=== PATIENT | male | born 1965 | race Caucasian/White ===

== ENCOUNTER 2016-10-12 18:32 | Emergency (ER) | payer OTHER ==
[~2016-10-12] VITALS: Ht 165.1 cm; Wt 66.3 kg
[2016-10-12 18:41] VITALS: TEMP 36.9; Ht 165.1 cm; Wt 66.3 kg
[2016-10-12] MEDS ORDERED: SODIUM CHLORIDE 0.9% 1000ML 1,000 ML IV STA (19:12)
[2016-10-12] MEDS ORDERED: KETOROLAC TROMETHAMINE 30 MG/ML VIAL IV STA (19:12)
[2016-10-12] MEDS ORDERED: PROMETHAZINE HCL INJ 25 MG in SODIUM CHLORIDE 0.9% 50ML 50 ML IV STA (19:12)
--- NOTE | 2016-10-12 19:49 | EMERGENCY ROOM VISIT NOTE ---
History Report prepared by López: Suad Acevedo Under the Supervision of: Dr. Zachary Huynh M.D. First contact with patient: 19:05 Chief Complaint: GI ASSESSMENT Stated Complaint: ABD Nursing Triage Summary: patient brought in by ems patient reports abdominal,N/V/D since last night at 2000 patient reports last ETOH drink last night,visible tremors History of Present Illness The patient is a 50 year old male who presents to the Emergency Room for a GI assessment. He has been experiencing diffuse abdominal pain since last night. He states that this pain is constant and rates it as a 3/10 in severity. He also notes nausea, vomiting, and diarrhea. The patient is an alcoholic and states that his last alcoholic drink was last night. He denies any history of abdominal surgery. He states that he has never experienced pain like this before. Source of History: patient Onset: last night Position: abdomen (diffuse) Symptom Intensity: 3/10 Timing: constant Associated Symptoms: + diarrhea, + nausea, + vomiting Review of Systems See HPI for pertinent positives & negatives. A total of 10 systems reviewed and were otherwise negative. Past Medical & Surgical Medical Problems: (1) Alcohol dependence (2) Alcoholic cirrhosis of liver without ascites (3) Asthma, mild persistent (4) Chest pain (5) Chronic anxiety (6) Chronic pancreatitis (7) COPD, mild (8) Esophageal varices (9) Hepatic encephalopathy (10) Hypotension (11) Hypothyroidism (12) Insomnia (13) Paroxysmal atrial fibrillation (14) Portal vein thrombosis (15) Pulmonary HTN (16) Rapid atrial fibrillation (17) Thrombocytopenia (18) Tobacco abuse Surgical Problems: (1) H/O colonoscopy (2) History of cholecystectomy (3) History of esophagogastroduodenoscopy (EGD) Family History Blood clots Diabetes mellitus MOTHER FH: CAD (coronary artery disease) FATHER BROTHER FH: leukemia AUNT Hypertension Social History Smoking Status: Current Every Day Smoker Alcohol Use: heavy Drug Use: none Marital Status: single Housing Status: lives with family Occupation Status: unemployed Current/Historical Medications Scheduled Diltiazem Hcl Ext Rel (Tiazac), 120 MG PO DAILY Ondasetron Odt (Zofran Odt), 4 MG SL Q6H Trazodone Hcl (Trazodone), 150 MG PO HS Scheduled PRN Albuterol Hfa (Ventolin Hfa), 2 PUFF INH Q4 PRN for SOB/Wheezing Allergies Coded Allergies: Fentanyl (Verified Allergy, Intermediate, RASH ALL OVER BODY, 09/27/16) ALL OVER BODY Physical Exam Vital Signs Date Time Temp Pulse Resp B/P Pulse Ox O2 Delivery O2 Flow Rate FiO2 10/12/16 22:44 82 18 146/93 97 10/12/16 21:57 80 18 167/79 97 Room Air 10/12/16 20:33 87 20 158/96 96 Room Air 10/12/16 18:48 90 10/12/16 18:41 36.9 80 18 144/87 96 Room Air Physical Exam GENERAL: Patient is a healthy-appearing well-nourished 50 year old male. HEAD: Normocephalic atraumatic EYES: Ocular movements intact pupils equal and react to light OROPHARYNX mucous membranes are moist no exudates present no erythema or edema present NECK: Supple no nuchal rigidity CHEST: Good equal expansion LUNGS: Clear and equal to auscultation CARDIAC: Normal S1 and S2 ABDOMEN: Soft nontender no guarding BACK: No CVA tenderness EXTREMITIES: No pain upon palpation normal muscle strength in all groups no clubbing cyanosis or edema NEURO: Patient is following commands is answering questions appropriately. Alert and oriented x3 Cranial Nerves 2-12 grossly intact Medical Decision & Procedures ER Provider Diagnostic Interpretation: Radiology results as stated below per my review and radiologist interpretation: ABDOMEN 2VIEW W/PA CHEST RTN CLINICAL HISTORY: Nausea, vomiting, diarrhea. COMPARISON STUDY: 09/23/2016 FINDINGS: The cardiac and mediastinal contours remain stable. The chest has an emphysematous configuration. There is prominence of central pulmonary arteries. There is no free air. There are surgical clips within the right upper quadrant consistent with a prior cholecystectomy. There are no abnormally dilated loops of large or small bowel. There are no transition zones indicate bowel obstruction. IMPRESSION: No evidence of bowel obstruction. No evidence of free air. Electronically signed by: Charlie Kumar M.D. 10/12/2016 9:27 PM Dictated Date/Time: 10/12/2016 9:26 PM Laboratory Results 10/12/16 19:40 Red Blood Count 4.49, Mean Corpuscular Volume 94.4, Mean Corpuscular Hemoglobin 34.3, Mean Corpuscular Hemoglobin Concent 36.3, Mean Platelet Volume 12.8, Neutrophils (%) (Auto) 53.7, Lymphocytes (%) (Auto) 30.3, Monocytes (%) (Auto) 13.0, Eosinophils (%) (Auto) 2.1, Basophils (%) (Auto) 0.7, Neutrophils # (Auto ) 3.15, Lymphocytes # (Auto) 1.77, Monocytes # (Auto) 0.76, Eosinophils # (Auto ) 0.12, Basophils # (Auto) 0.04 10/12/16 19:40 Test 10/12/16 19:35 10/12/16 19:40 Urine Color CHARMAINE Urine Appearance CLEAR (CLEAR) Urine pH 8.5 (4.5-7.5) Urine Specific [place] 1.029 (1.000-1.030) Urine Protein NEG (NEG) Urine Glucose (UA) NEG (NEG) Urine Ketones NEG (NEG) Urine Occult Blood NEG (NEG) Urine Nitrite NEG (NEG) Urine Bilirubin NEG (NEG) Urine Urobilinogen NEG (NEG) Urine Leukocyte Esterase NEG (NEG) Urine WBC (Auto) 5-10 /hpf (0-5) Urine RBC (Auto) 0-4 /hpf (0-4) Urine Hyaline Casts (Auto) 0 /lpf (0-5) Urine Epithelial Cells (Auto) 10-20 /lpf (0-5) Urine Bacteria (Auto) NEG (NEG) Urine Yeast (Auto) (NONE PRSENT) White Blood Count 5.85 K/uL (4.8-10.8) Red Blood Count 4.49 M/uL (4.7-6.1) Hemoglobin 15.4 g/dL (14.0-18.0) Hematocrit 42.4 % (42-52) Mean Corpuscular Volume 94.4 fL (80-100) Mean Corpuscular Hemoglobin 34.3 pg (25-34) Mean Corpuscular Hemoglobin Concent 36.3 g/dl (32-36) Platelet Count 82 K/uL (130-400) Mean Platelet Volume 12.8 fL (7.4-10.4) Neutrophils (%) (Auto) 53.7 % Lymphocytes (%) (Auto) 30.3 % Monocytes (%) (Auto) 13.0 % Eosinophils (%) (Auto) 2.1 % Basophils (%) (Auto) 0.7 % Neutrophils # (Auto) 3.15 K/uL (1.4-6.5) Lymphocytes # (Auto) 1.77 K/uL (1.2-3.4) Monocytes # (Auto) 0.76 K/uL (0.11-0.59) Eosinophils # (Auto) 0.12 K/uL (0-0.5) Basophils # (Auto) 0.04 K/uL (0-0.2) RDW Standard Deviation 49.6 fL (36.4-46.3) RDW Coefficient of Variation 14.3 % (11.5-14.5) Immature Granulocyte % (Auto) 0.2 % Immature Granulocyte # (Auto) 0.01 K/uL (0.00-0.02) Platelet Estimate DECREASED Red Blood Cell Morphology Unremarkable Anion Gap 10.0 mmol/L (3-11) Est Creatinine Clear Calc Drug Dose 90.5 ml/min Estimated GFR () 117.5 Estimated GFR (Non- 101.4 BUN/Creatinine Ratio 9.0 (10-20) Calcium Level 8.4 mg/dl (8.5-10.1) Total Bilirubin 3.4 mg/dl (0.2-1) Direct Bilirubin mg/dl (0-0.2) Aspartate Amino Transf (AST/SGOT) 83 U/L (15-37) Alanine Aminotransferase (ALT/SGPT) 43 U/L (12-78) Alkaline Phosphatase 105 U/L (45-117) Total Protein 7.0 gm/dl (6.4-8.2) Albumin 3.0 gm/dl (3.4-5.0) Lipase 147 U/L (73-393) Chemistry Specimen Hemolysis Labs reviewed by ED physician. Medications Administered Medications (Trade) Dose Ordered Sig/Justin Route Start Time Stop Time Status Last Admin Dose Admin Ketorolac Tromethamine 30 mg 30 mg NOW STAT IV 10/12/16 19:12 10/12/16 19:13 DC 10/12/16 19:54 30 MG Sodium Chloride 1,000 ml @ 999 mls/hr Q1H1M STAT IV 10/12/16 19:12 10/12/16 20:12 DC 10/12/16 19:12 999 MLS/HR Promethazine HCl/ Sodium Chloride (Phenergan Inj/ Nss 50ml) 51 ml @ 204 mls/hr NOW STAT IV 10/12/16 19:12 10/12/16 19:26 DC 10/12/16 19:54 204 MLS/HR Ondansetron HCl (ZOFRAN ODT 4MG Home Pack) 1 [facility] UD ONCE PO 10/12/16 22:30 10/12/16 22:31 DC 10/12/16 22:[address] [facility] ED Course 1904: Past medical records reviewed. The patient was evaluated in room A10. A complete history and physical examination was performed. 1911: Promethazine HCl 25 mg/Sodium Chloride 51 ml @ 204 mls/hr IV, NSS 1000 ml @ 999 mls/hr IV, Toradol 30 mg IV 2154: I reassessed the patient at this time. He is feeling better and resting comfortably. I discussed the results and treatment plan with the patient. I answered all pertaining questions that he had. He expressed understanding and verbalized agreement. The patient will be discharged home. 2229: Zofran 4 mg PO 1 [facility] Medical Decision Differential diagnosis: Etiologies such as appendicitis, diverticulitis, PUD, biliary pathology, UTI, pancreatitis, obstruction, mesenteric ischemia, aortic pathology, infections, inflammatory bowel disease, renal colic, as well as others were entertained. This with U1-year-old male who presents emergency department complaining of nausea vomiting and diarrhea. The patient was unable to provide a stool sample for the entire 2 hours he was in the emergency department. Serial abdominal examinations were performed on the patient in the emergency department and at no time did he exhibit abdominal tenderness. He has a normal CBC normal renal profile normal liver profile normal lipase. The patient is also on the no narcotics treatment list. For this reason an IV was established, the patient given normal saline bolus, Phenergan. Repeat examination revealed improvement the patient's symptoms. Impression Primary Impression: Gastroenteritis Scribe Attestation The scribe's documentation has been prepared under my direction and personally reviewed by me in its entirety. I confirm that the note above accurately reflects all work, treatment, procedures, and medical decision making performed by me. Departure Information Dispostion Home / Self-Care Prescriptions Ondasetron Odt (ZOFRAN ODT) 4 Mg Tab 4 MG SL Q6H for Nausea, #6 TAB Prov: Zachary Huynh MD 10/12/16 Referrals Cr, P Sundar, M.D. (MEDICAL) (PCP) Forms HOME CARE DOCUMENTATION FORM, IMPORTANT VISIT INFORMATION Patient Instructions A Signature Page, ED Diet Vomiting Diarrhea, ED Gastroenteritis Vs Food Poison, My [facility] Additional Instructions You have been examined and treated today on an emergency basis only. This is not a substitute for, or an effort to provide, complete comprehensive medical care. It is impossible to recognize and treat all injuries or illnesses in a single emergency department visit. It is therefore important that you follow up closely with Dr Cr. Call as soon as possible for an appointment. Thank you for your time and consideration. I look forward to speaking with you again soon. Please don't hesitate to call us if you have any questions.
[2016-10-12] MEDS ORDERED: DILT120C68 PO (19:50)
[2016-10-12] MEDS ORDERED: TRAZ50TA35 PO (19:50)
[2016-10-12 20:22] LABS: ALKALINE PHOSPHATASE 105 U/L (45-117); ALT/SGPT 43 U/L (12-78); AST/SGOT 83 U/L (15-37); BLOOD UREA NITROGEN 8 mg/dl (7-18); CALCIUM 8.4 mg/dl (8.5-10.1); CARBON DIOXIDE 25 mmol/L (21-32); CHLORIDE 110 mmol/L (98-107); CREATININE 0.84 mg/dl (0.60-1.40); GLUCOSE 90 mg/dl (70-99); POTASSIUM 3.8 mmol/L (3.5-5.1); SODIUM 145 mmol/L (136-145)
[2016-10-12 20:31] LABS: URINE APPEARANCE CLEAR (CLEAR); URINE PH 8.5 (4.5-7.5); URINE SPECIFIC GRAVITY 1.029 (1.000-1.030); UROBILINOGEN NEG (NEG)
[2016-10-12 20:36] LABS: HEMATOCRIT 42.4 % (42-52); MEAN CELL VOLUME 94.4 fL (80-100); MEAN CORPUSCULAR HEMOGLOBIN 34.3 pg (25-34); MEAN CORPUSCULAR HGB CONC 36.3 g/dl (32-36); MEAN PLATELET VOLUME 12.8 fL (7.4-10.4); PLATELET COUNT 82 K/uL (130-400); RED BLOOD COUNT 4.49 M/uL (4.7-6.1); WHITE BLOOD COUNT 5.85 K/uL (4.8-10.8)
[2016-10-12 20:37] LABS: BASO % 0.7 %; BASO ABS # 0.04 K/uL (0-0.2); COMPLETE YES; EOS % 2.1 %; IG% 0.2 %; LYMPH % 30.3 %; LYMPH ABS # 1.77 K/uL (1.2-3.4); NEUT % 53.7 %; PLT ESTIMATE DECREASED
[2016-10-12 20:43] LABS: URINE COLOR AMBER
[2016-10-12 20:45] LABS: MANUAL MICROSCOPIC REQUIRED? NO; REVIEW REQ? YES; SULFASALICYLIC ACID NEG (NEG); URINE BILIRUBIN NEG (NEG)
[2016-10-12 20:46] LABS: URINE NITRITE NEG (NEG)
--- NOTE | 2016-10-12 21:29 | DIAGNOSTIC IMAGING REPORT ---
ABDOMEN 2VIEW W/PA CHEST RTN CLINICAL HISTORY: Nausea, vomiting, diarrhea. COMPARISON STUDY: 09/23/2016 FINDINGS: The cardiac and mediastinal contours remain stable. The chest has an emphysematous configuration. There is prominence of central pulmonary arteries. There is no free air. There are surgical clips within the right upper quadrant consistent with a prior cholecystectomy. There are no abnormally dilated loops of large or small bowel. There are no transition zones indicate bowel obstruction. IMPRESSION: No evidence of bowel obstruction. No evidence of free air. Electronically signed by: Charlie Kumar M.D. 10/12/2016 9:27 PM Dictated Date/Time: 10/12/2016 9:26 PM
[2016-10-12] MEDS ORDERED: ONDANSETRON HOME PACK 4MG OD TAB PO ONE (22:30)
[2016-10-12] MEDS ORDERED: ONDA4TAB10 SL (22:34)
[2016-10-12 22:44] VITALS: BP 146/93; PULSE 82; O2SAT 97
[2017-01-11] MEDS ORDERED: THM100 PO (12:57)
[2017-01-11] MEDS ORDERED: PRT40 PO (12:57)
[2017-01-11] MEDS ORDERED: MULT-589 PO (12:57)
[2017-01-11] MEDS ORDERED: FLV1 PO (12:57)
[2017-01-11] MEDS ORDERED: MGNO400 PO (12:57)
[2017-02-04] MEDS ORDERED: BND25 PO (21:04)
[2017-02-06] MEDS ORDERED: NRN600 PO (12:24)
[2017-02-06] MEDS ORDERED: THM100 PO (12:24)
[2017-02-06] MEDS ORDERED: MULTTAB58 PO (12:24)
[2017-02-06] MEDS ORDERED: FLV1 PO (12:24)
[2017-07-10] MEDS ORDERED: SALI0.6510 (16:02)
[2017-07-10] MEDS ORDERED: BCTRO (16:02)
[2017-07-13] MEDS ORDERED: TRAZ1TAB52 PO (20:24)
== END 2016-10-12 22:45 | disposition home or self-care (01) ==
LOC: EDBD 18:32 → C.EDA 18:33
DX: K52.9 Noninfective gastroenteritis and colitis, unspecified (principal); I48.0 Paroxysmal atrial fibrillation; E03.9 Hypothyroidism, unspecified; J44.9 Chronic obstructive pulmonary disease, unspecified; J45.909 Unspecified asthma, uncomplicated; K72.90 Hepatic failure, unspecified without coma; K70.30 Alcoholic cirrhosis of liver without ascites; K86.1 Other chronic pancreatitis; F41.9 Anxiety disorder, unspecified; F17.200 Nicotine dependence, unspecified, uncomplicated; Z90.49 Acquired absence of other specified parts of digestive tract; Z98.890 Other specified postprocedural states; Z88.8 Allergy status to other drugs, medicaments and biological substances; Z83.3 Family history of diabetes mellitus; Z82.49 Family history of ischemic heart disease and other diseases of the circulatory system

== ENCOUNTER 2016-10-24 20:44 | Emergency (ER) | payer OTHER ==
[~2016-10-24] VITALS: Ht 165.1 cm; Wt 64.5 kg
[~2016-10-24 20:44] MED LIST: DILT120C68 PO; ONDA4TAB10 SL; TRAZ50TA35 PO
[2016-10-24 20:51] VITALS: TEMP 37; Ht 165.1 cm; Wt 64.5 kg
[2016-10-24 21:16] VITALS: O2SAT 96
[2016-10-24] MEDS ORDERED: SODIUM CHLORIDE 0.9% 1000ML 1,000 ML IV STA (21:54)
--- NOTE | 2016-10-24 22:01 | EMERGENCY ROOM VISIT NOTE ---
History Report prepared by López: Sundar Payne Under the Supervision of: Dr. Mihai Muhammad M.D. First contact with patient: 21:48 Chief Complaint: OVERDOSE (ACCIDENTAL) Stated Complaint: ACCIDENTALLY TOOK BLOOD PRESSUE MEDS Nursing Triage Summary: Patient reports that he took 2 unknown BP medications about 1 hour ago. Denies suicidal ideations, states that he mistook them for sleeping pills. Patient reports associated CP that radiates across bilateral anterior chest wall. Also reports associated dizziness and blurred vision in both eyes. History of Present Illness The patient is a 50 year old male who presents to the Emergency Room with complaints of an episode of accidental overdose occurring this evening. He notes he took 1 extra of his blood pressure medication thinking that it was his sleeping pills. He notes he is supposed to take his blood pressure medication in the morning. He admits to drinking alcohol tonight. He currently feels dizzy and has chest pain and abdominal pain. Source of History: patient Onset: this evening Position: other (global) Quality: other (accidental overdose) Timing: other (episode) Associated Symptoms: + abdominal pain, + chest pain Note: The patient notes feeling dizzy. Review of Systems See HPI for pertinent positives & negatives. A total of 10 systems reviewed and were otherwise negative. Past Medical & Surgical Medical Problems: (1) Alcohol dependence (2) Alcoholic cirrhosis of liver without ascites (3) Asthma, mild persistent (4) Chest pain (5) Chronic anxiety (6) Chronic pancreatitis (7) COPD, mild (8) Esophageal varices (9) Hepatic encephalopathy (10) Hypotension (11) Hypothyroidism (12) Insomnia (13) Paroxysmal atrial fibrillation (14) Portal vein thrombosis (15) Pulmonary HTN (16) Rapid atrial fibrillation (17) Thrombocytopenia (18) Tobacco abuse Surgical Problems: (1) H/O colonoscopy (2) History of cholecystectomy (3) History of esophagogastroduodenoscopy (EGD) Family History Blood clots Diabetes mellitus MOTHER FH: CAD (coronary artery disease) FATHER BROTHER FH: leukemia AUNT Hypertension Social History Smoking Status: Current Every Day Smoker Alcohol Use: heavy Drug Use: none Marital Status: single Housing Status: lives with family Occupation Status: unemployed Current/Historical Medications Scheduled Diltiazem Hcl Ext Rel (Tiazac), 120 MG PO DAILY Ondasetron Odt (Zofran Odt), 4 MG SL Q6H Trazodone Hcl (Trazodone), 150 MG PO HS Scheduled PRN Albuterol Hfa (Ventolin Hfa), 2 PUFF INH Q4 PRN for SOB/Wheezing Allergies Coded Allergies: Fentanyl (Verified Allergy, Intermediate, RASH ALL OVER BODY, 10/24/16) ALL OVER BODY Physical Exam Vital Signs Date Time Temp Pulse Resp B/P Pulse Ox O2 Delivery O2 Flow Rate FiO2 10/24/16 23:36 87 18 97/67 96 10/24/16 23:00 86 18 103/69 96 Room Air 10/24/16 22:13 84 18 89/55 95 Room Air 10/24/16 21:16 96 Room Air 10/24/16 21:12 86 10/24/16 20:51 37.0 88 20 102/71 96 Room Air Physical Exam GENERAL: Patient is moderately intoxicated, smells strongly of alcohol, and has slurred speech. HEENT: No acute trauma, normocephalic atraumatic, mucous membranes moist, no nasal congestion, no scleral icterus. NECK: No stridor, no adenopathy, no meningismus, trachea is midline. LUNGS: No dyspnea. Clear to auscultation and equal bilaterally. No wheeze, no rhonchi. HEART: Regular rate and rhythm. No murmurs, rubs, gallops appreciated. ABDOMEN: Soft, nontender, bowel sounds positive, no masses appreciated, no peritonitis. BACK: No midline tenderness, no CVA tenderness EXTREMITIES: Normal motion all extremities, no cyanosis, no edema. NEUROLOGIC: Alert and oriented, no acute motor or sensory deficits, no focal weakness, cranial nerves grossly intact. SKIN: No rash, no jaundice, no diaphoresis. Medical Decision & Procedures Laboratory Results 10/24/16 21:38 Red Blood Count 4.46, Mean Corpuscular Volume 97.3, Mean Corpuscular Hemoglobin 35.0, Mean Corpuscular Hemoglobin Concent 35.9, Mean Platelet Volume 12.1 10/24/16 21:38 Test 10/24/16 21:38 10/24/16 22:10 White Blood Count 7.64 K/uL (4.8-10.8) Red Blood Count 4.46 M/uL (4.7-6.1) Hemoglobin 15.6 g/dL (14.0-18.0) Hematocrit 43.4 % (42-52) Mean Corpuscular Volume 97.3 fL (80-100) Mean Corpuscular Hemoglobin 35.0 pg (25-34) Mean Corpuscular Hemoglobin Concent 35.9 g/dl (32-36) Platelet Count 125 K/uL (130-400) Mean Platelet Volume 12.1 fL (7.4-10.4) RDW Standard Deviation 50.7 fL (36.4-46.3) RDW Coefficient of Variation 14.2 % (11.5-14.5) Neutrophils % (Manual) 53.9 % Lymphocytes % (Manual) 20.4 % Variant Lymphocytes % (manual) 15.0 % Monocytes % (Manual) 1.8 % Eosinophils % (Manual) 6.2 % Basophils % (Manual) 2.7 % (0-2) Neutrophils # (Manual) 4.12 K/uL (1.4-6.5) Total Absolute Neutrophils 4.12 K/uL (1.4-6.5) Lymphocytes # (Manual) 1.56 K/uL (1.2-3.4) Absolute Variant Lymphocytes 1.15 K/uL Total Absolute Lymphocytes 2.70 K/uL (1.2-3.4) Monocytes # (Manual) 0.14 K/uL (0.11-0.59) Eosinophils # (Manual) 0.47 K/uL (0-0.5) Basophils # (Manual) 0.21 K/uL (0-0.2) Platelet Estimate DECREASED Red Blood Cell Morphology Unremarkable Anion Gap 11.0 mmol/L (3-11) Est Creatinine Clear Calc Drug Dose 80.9 ml/min Estimated GFR () 108.4 Estimated GFR (Non- 93.5 BUN/Creatinine Ratio 6.2 (10-20) Calcium Level 8.4 mg/dl (8.5-10.1) Total Bilirubin 1.2 mg/dl (0.2-1) Aspartate Amino Transf (AST/SGOT) 33 U/L (15-37) Alanine Aminotransferase (ALT/SGPT) 22 U/L (12-78) Alkaline Phosphatase 88 U/L (45-117) Troponin I < 0.015 ng/ml (0-0.045) Total Protein 6.4 gm/dl (6.4-8.2) Albumin 2.7 gm/dl (3.4-5.0) Globulin 3.7 gm/dl (2.5-4.0) Albumin/Globulin Ratio 0.7 (0.9-2) Thyroid Stimulating Hormone (TSH) 5.720 uIu/ml (0.300-4.500) Salicylates Level < 1.7 mg/dl (2.8-20) Acetaminophen Level < 2 ug/ml (10-30) Ethyl Alcohol mg/dL 207.0 mg/dl (0-3) Urine Color YELLOW Urine Appearance CLEAR (CLEAR) Urine pH 6.5 (4.5-7.5) Urine Specific [place] 1.000 (1.000-1.030) Urine Protein NEG (NEG) Urine Glucose (UA) NEG (NEG) Urine Ketones NEG (NEG) Urine Occult Blood NEG (NEG) Urine Nitrite NEG (NEG) Urine Bilirubin NEG (NEG) Urine Urobilinogen NEG (NEG) Urine Leukocyte Esterase NEG (NEG) Urine WBC (Auto) /hpf (0-5) Urine RBC (Auto) /hpf (0-4) Urine Hyaline Casts (Auto) /lpf (0-5) Urine Epithelial Cells (Auto) /lpf (0-5) Urine Bacteria (Auto) (NEG) Urine RBC 0-4 /hpf (0-4) Urine WBC 0 /hpf (0-5) Urine Epithelial Cells 0-5 /lpf (0-5) Urine Bacteria NEG (NEG) Urine Opiates Screen NEG (NEG) Urine Methadone, Qualitative NEG (NEG) Urine Barbiturates NEG (NEG) Urine Phencyclidine (PCP) Level NEG (NEG) Ur Amphetamine/Methamphetamine NEG (NEG) MDMA (Ecstasy) Screen NEG (NEG) Urine Benzodiazepines Screen NEG (NEG) Urine Cocaine Metabolite NEG (NEG) Urine Marijuana (THC) NEG (NEG) Laboratory results as reviewed by me. Medications Administered Medications (Trade) Dose Ordered Sig/Justin Route Start Time Stop Time Status Last Admin Dose Admin Sodium Chloride (Nss 1000ml) 1,000 ml @ 999 mls/hr Q1H1M STAT IV 10/24/16 21:54 10/24/16 22:54 DC 10/24/16 22:13 999 MLS/HR ECG Indication: other (accidental overdose) Rate (beats per minute): 83 Rhythm: normal sinus Findings: no acute ischemic change, no ectopy ED Course 2148: The patient was evaluated in room C8. A complete history and physical exam was performed. 2153: Ordered NSS 1,000 ml @ 999 mls/hr IV. 2318: I reassessed the patient and he feels better and wants to go home. 5: Reevaluated the patient. Discussed results and discharge instructions: He verbalized understanding and agreement. The patient is ready for discharge. Medical Decision Differential: Suicide Attempt, Mood Disorder, Poisoning, Medication OD, Narcotic OD, Tylenol OD, Salicylated OD, Prolonged QTc, Metabolic/Electrolyte imbalance, Trauma, Rhabdo, Infectious, amongst other pathologies entertained. 50 yr old male arrives for evaluation after accidentally taking two tablets of his blood pressure medications rather than his sleeping pill. He is clearly intoxicated and I stressed the dangers of taking mediations while intoxicated, especially sleeping meds. his work-up is completely benign. BP 103/69, and review of chart it is clear his SBP runs 80s-110s while he is intoxicated. He was monitored for several hours without issue. He adamantly denies this was attempt to harm himself. Comfortable with going home and wishes to be discharged. He has family member here with him. Of note, complained of essentially total body pain, including CP and abdominal pain. Abdomen is benign and I do not feel requires CT abdo. EKG and Trop negative and with his recurrent chronic chest pain I feel this rules out ACS at this time. Impression Primary Impression: Alcohol intoxication Additional Impression: Accidental overdose Scribe Attestation The scribe's documentation has been prepared under my direction and personally reviewed by me in its entirety. I confirm that the note above accurately reflects all work, treatment, procedures, and medical decision making performed by me. Departure Information Dispostion Home / Self-Care Referrals Darrius Cr M.D. (MEDICAL) (PCP) Patient Instructions Addiction Alcohol, My [facility] Additional Instructions Avoid taking any sedatives while drinking, this includes sleep aids. Be very cautious while taking your medications that you take the correct ones at the correct time. If at any time you have thoughts of harm to yourself or others, call 911 or return to emergency department. Problem Qualifiers Primary Impression: Alcohol intoxication Complication of substance-induced condition: uncomplicated Qualified Codes: F10.120 - Alcohol abuse with intoxication, uncomplicated Additional Impression: Accidental overdose Encounter type: initial encounter Qualified Codes: T50.901A - Poisoning by unspecified drugs, medicaments and biological substances, accidental ( unintentional), initial encounter
[2016-10-24 22:34] LABS: ALT/SGPT 22 U/L (12-78); AST/SGOT 33 U/L (15-37); BLOOD UREA NITROGEN 6 mg/dl (7-18); BUN/CREATININE RATIO 6.2 (10-20); CALCIUM 8.4 mg/dl (8.5-10.1); CARBON DIOXIDE 24 mmol/L (21-32); CHLORIDE 109 mmol/L (98-107); CREATININE 0.94 mg/dl (0.60-1.40); GLUCOSE 79 mg/dl (70-99); POTASSIUM 3.6 mmol/L (3.5-5.1); SODIUM 144 mmol/L (136-145)
[2016-10-24 22:36] LABS: HEMATOCRIT 43.4 % (42-52); MEAN CELL VOLUME 97.3 fL (80-100); MEAN CORPUSCULAR HGB CONC 35.9 g/dl (32-36); MEAN PLATELET VOLUME 12.1 fL (7.4-10.4); PLATELET COUNT 125 K/uL (130-400); RED BLOOD COUNT 4.46 M/uL (4.7-6.1); WHITE BLOOD COUNT 7.64 K/uL (4.8-10.8)
[2016-10-24 22:37] LABS: ACETAMINOPHEN < 2 ug/ml (10-30); BASO ABS # 0.21 K/uL (0-0.2); BASOPHIL % 2.7 % (0-2); COMPLETE YES; EOSINOPHIL % 6.2 %; LYMPH ABS # 1.56 K/uL (1.2-3.4); LYMPHOCYTE % 20.4 %; NEUTROPHILS % 53.9 %; PLT ESTIMATE DECREASED; VARIANT LYM ABS # 1.15 K/uL
[2016-10-24 22:44] LABS: ALB/GLOB RATIO 0.7 (0.9-2); ALKALINE PHOSPHATASE 88 U/L (45-117)
[2016-10-24 22:48] LABS: URINE APPEARANCE CLEAR (CLEAR); URINE BILIRUBIN NEG (NEG); URINE COLOR YELLOW; URINE NITRITE NEG (NEG); URINE PH 6.5 (4.5-7.5); UROBILINOGEN NEG (NEG); ZZUR CULT IF INDIC CLEAN CATCH NO
[2016-10-24 22:56] LABS: MANUAL MICROSCOPIC REQUIRED? YES; REVIEW REQ? NO
[2016-10-24 22:59] LABS: URINE BACTERIA NEG (NEG); URINE RBC 0-4 /hpf (0-4); URINE WBC 0 /hpf (0-5)
[2016-10-24 23:36] VITALS: BP 97/67; PULSE 87; O2SAT 96
[2016-10-24 23:57] LABS: BENZODIAZEPINE, URINE NEG (NEG); COCAINE,URINE NEG (NEG); PHENCYCLIDINE, URINE NEG (NEG)
[2017-01-11] MEDS ORDERED: THM100 PO (12:57)
[2017-01-11] MEDS ORDERED: MGNO400 PO (12:57)
[2017-01-11] MEDS ORDERED: PRT40 PO (12:57)
[2017-01-11] MEDS ORDERED: FLV1 PO (12:57)
[2017-01-11] MEDS ORDERED: MULT-589 PO (12:57)
[2017-02-04] MEDS ORDERED: BND25 PO (21:04)
[2017-02-06] MEDS ORDERED: MULTTAB58 PO (12:24)
[2017-02-06] MEDS ORDERED: NRN600 PO (12:24)
[2017-02-06] MEDS ORDERED: FLV1 PO (12:24)
[2017-02-06] MEDS ORDERED: THM100 PO (12:24)
[2017-03-06] MEDS ORDERED: TRAZ1TAB52 PO (20:24)
[2017-07-10] MEDS ORDERED: SALI0.6510 (16:02)
[2017-07-10] MEDS ORDERED: BCTRO (16:02)
== END 2016-10-24 23:38 | disposition home or self-care (01) ==
LOC: C.EDB 20:46 → C.EDC 23:38
DX: F10.129 Alcohol abuse with intoxication, unspecified (principal); T50.991A Poisoning by other drugs, medicaments and biological substances, accidental (unintentional), initial encounter; J44.9 Chronic obstructive pulmonary disease, unspecified; E03.9 Hypothyroidism, unspecified; I48.0 Paroxysmal atrial fibrillation; Z90.49 Acquired absence of other specified parts of digestive tract

== ENCOUNTER 2016-11-12 00:36 | Emergency (ER) | payer OTHER ==
[~2016-11-12] VITALS: Ht 165.1 cm; Wt 71.0 kg
[2016-11-12 00:41] VITALS: TEMP 36.8; Ht 165.1 cm; Wt 71.0 kg
[2016-11-12 01:46] LABS: HEMATOCRIT 47.8 % (42-52); MEAN CELL VOLUME 94.1 fL (80-100); MEAN CORPUSCULAR HEMOGLOBIN 34.4 pg (25-34); MEAN CORPUSCULAR HGB CONC 36.6 g/dl (32-36); MEAN PLATELET VOLUME 11.7 fL (7.4-10.4); PLATELET COUNT 127 K/uL (130-400); RED BLOOD COUNT 5.08 M/uL (4.7-6.1); WHITE BLOOD COUNT 8.09 K/uL (4.8-10.8)
[2016-11-12 01:57] LABS: URINE APPEARANCE CLEAR (CLEAR); URINE COLOR YELLOW
[2016-11-12 01:58] LABS: URINE BILIRUBIN NEG (NEG); URINE NITRITE NEG (NEG); UROBILINOGEN NEG (NEG)
[2016-11-12 02:00] LABS: MANUAL MICROSCOPIC REQUIRED? NO; REVIEW REQ? NO
[2016-11-12] MEDS ORDERED: OPTIRAY 320 IV PRN (02:00)
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
[2016-11-12 02:06] LABS: BUN/CREATININE RATIO 5.5 (10-20); CALCIUM 8.5 mg/dl (8.5-10.1); CREATININE 0.75 mg/dl (0.60-1.40); POTASSIUM 3.3 mmol/L (3.5-5.1)
[2016-11-12 04:17] VITALS: BP 102/77; PULSE 102; O2SAT 93
[2016-11-12] MEDS ORDERED: OXYC-57 PO (04:24)
[2016-11-12] MEDS ORDERED: PERCOCET HOME PACK PO ONE (04:30)
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
[2017-01-11] MEDS ORDERED: MULT-589 PO (12:57)
[2017-01-11] MEDS ORDERED: FLV1 PO (12:57)
[2017-01-11] MEDS ORDERED: PRT40 PO (12:57)
[2017-01-11] MEDS ORDERED: THM100 PO (12:57)
[2017-01-11] MEDS ORDERED: MGNO400 PO (12:57)
[2017-02-04] MEDS ORDERED: BND25 PO (21:04)
[2017-02-06] MEDS ORDERED: FLV1 PO (12:24)
[2017-02-06] MEDS ORDERED: THM100 PO (12:24)
[2017-02-06] MEDS ORDERED: NRN600 PO (12:24)
[2017-02-06] MEDS ORDERED: MULTTAB58 PO (12:24)
[2017-03-06] MEDS ORDERED: TRAZ1TAB52 PO (20:24)
[2017-07-10] MEDS ORDERED: SALI0.6510 (16:02)
[2017-07-10] MEDS ORDERED: BCTRO (16:02)
== END 2016-11-12 04:38 | disposition home or self-care (01) ==
LOC: EDBD 00:36 → C.EDB 00:41
DX: S22.42XA Multiple fractures of ribs, left side, initial encounter for closed fracture (principal); T51.91XA Toxic effect of unspecified alcohol, accidental (unintentional), initial encounter; Y04.0XXA Assault by unarmed brawl or fight, initial encounter; Z79.899 Other long term (current) drug therapy

== ENCOUNTER 2016-11-24 17:47 | Emergency (ER) | payer OTHER ==
[~2016-11-24] VITALS: Ht 165.1 cm; Wt 67.9 kg
[~2016-11-24 17:47] MED LIST changes: -ONDA4TAB10 SL; +OXYC-57 PO
[2016-11-24 17:50] VITALS: TEMP 36.8; Ht 165.1 cm; Wt 67.9 kg
[2016-11-24] MEDS ORDERED: ONDANSETRON INJ 2 MG/ML 2 ML VIAL IV STA (18:10)
[2016-11-24] MEDS ORDERED: HYDROmorphone INJ 0.5 MG/0.5 ML SYR IV STA (18:10)
[2016-11-24 18:51] LABS: BASO % 0.7 %; BASO ABS # 0.07 K/uL (0-0.2); COMPLETE YES; EOS % 3.8 %; HEMATOCRIT 47.5 % (42-52); IG% 0.2 %; LYMPH % 39.6 %; LYMPH ABS # 3.85 K/uL (1.2-3.4); MEAN CELL VOLUME 95.8 fL (80-100); MEAN CORPUSCULAR HEMOGLOBIN 35.7 pg (25-34); MEAN CORPUSCULAR HGB CONC 37.3 g/dl (32-36); MEAN PLATELET VOLUME 12.3 fL (7.4-10.4); MONO % 10.1 %; NEUT % 45.6 %; PLATELET COUNT 153 K/uL (130-400); RED BLOOD COUNT 4.96 M/uL (4.7-6.1); WHITE BLOOD COUNT 9.72 K/uL (4.8-10.8)
[2016-11-24 19:01] LABS: INR 1.1 (0.9-1.1); PARTIAL THROMBOPLASTIN RATIO 1.1
--- NOTE | 2016-11-24 19:01 | DIAGNOSTIC IMAGING REPORT ---
CHEST 2 VIEWS ROUTINE CLINICAL HISTORY: eval for pnea/ cough sob rib fx dyspnea COMPARISON STUDY: 10/12/2016 FINDINGS: Lungs are considered clear. Potential early parenchymal infiltrative change medial left base. Chronic hilar fullness bilaterally. IMPRESSION: Potential early parenchymal infiltrate medial left base. Chronic additional changes as noted. Electronically signed by: Jean Pereyra M.D. 11/24/2016 7:00 PM Dictated Date/Time: 11/24/2016 6:58 PM
[2016-11-24] MEDS ORDERED: HYDROmorphone INJ 1 MG/ML SYR IV STA (19:32)
[2016-11-24 19:50] VITALS: O2SAT 96
[2016-11-24 19:50] LABS: ALKALINE PHOSPHATASE 125 U/L (45-117); ALT/SGPT 26 U/L (12-78); AST/SGOT 45 U/L (15-37); BLOOD UREA NITROGEN 5 mg/dl (7-18); BUN/CREATININE RATIO 6.3 (10-20); CALCIUM 8.4 mg/dl (8.5-10.1); CARBON DIOXIDE 24 mmol/L (21-32); CHLORIDE 107 mmol/L (98-107); CREATININE 0.81 mg/dl (0.60-1.40); GLUCOSE 73 mg/dl (70-99); POTASSIUM 3.7 mmol/L (3.5-5.1); SODIUM 141 mmol/L (136-145)
[2016-11-24] MEDS ORDERED: OPTIRAY 320 IV PRN (20:00)
--- NOTE | 2016-11-24 20:53 | DIAGNOSTIC IMAGING REPORT ---
CHEST CTA for PULMONARY ARTERIES CT DOSE: 275.12 mGy.cm HISTORY: Chest pain dyspnea TECHNIQUE: Multiaxial CT images of the chest were performed following the intravenous administration of contrast to evaluate the pulmonary arteries. Maximal intensity projection images were also obtained. COMPARISON STUDY: 11/12/2016 FINDINGS: There is a normal caliber thoracic aorta with no evidence for dissection. There is no evidence for pulmonary embolus. No pleural effusions. No pneumothorax. The liver and spleen are unremarkable. No mediastinal or hilar lymphadenopathy. The central airways are patent. The lungs are clear. No change from the prior study. Rib fractures produces described are again noted and appear unchanged. Upper abdomen shows evidence for hepatic cirrhotic change with several upper abdominal varices. IMPRESSION: 1. Study is negative for pulmonary embolus. 2. Lungs are clear. 3. Several left-sided rib fractures which have been described previously and appear to be similar. 4. No evidence of pneumothorax. 5. Substernal enlarged thyroid. This is also unchanged 6. Upper abdomen demonstrates hepatic cirrhosis with several upper abdominal varices. Electronically signed by: Jean Preeyra M.D. 11/24/2016 8:51 PM Dictated Date/Time: 11/24/2016 8:46 PM
[2016-11-24] MEDS ORDERED: OXYC1TAB3 PO (21:28)
[2016-11-24] MEDS ORDERED: AMOX875T PO (21:28)
[2016-11-24] MEDS ORDERED: OXYCODONE IR HOME PACK PO ONE (21:30)
[2016-11-24] MEDS ORDERED: AMOXICILLIN/CLAVULANATE TAB 875 MG TAB PO ONE (21:30)
[2016-11-24 21:39] VITALS: BP 112/77; PULSE 79; O2SAT 93
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
[2017-01-11] MEDS ORDERED: THM100 PO (12:57)
[2017-01-11] MEDS ORDERED: MGNO400 PO (12:57)
[2017-01-11] MEDS ORDERED: FLV1 PO (12:57)
[2017-01-11] MEDS ORDERED: MULT-589 PO (12:57)
[2017-01-11] MEDS ORDERED: PRT40 PO (12:57)
[2017-02-04] MEDS ORDERED: BND25 PO (21:04)
[2017-02-06] MEDS ORDERED: FLV1 PO (12:24)
[2017-02-06] MEDS ORDERED: NRN600 PO (12:24)
[2017-02-06] MEDS ORDERED: THM100 PO (12:24)
[2017-02-06] MEDS ORDERED: MULTTAB58 PO (12:24)
[2017-03-06] MEDS ORDERED: TRAZ1TAB52 PO (20:24)
[2017-07-10] MEDS ORDERED: SALI0.6510 (16:02)
[2017-07-10] MEDS ORDERED: BCTRO (16:02)
== END 2016-11-24 21:50 | disposition home or self-care (01) ==
LOC: C.EDB 17:47 → C.EDC 21:50
DX: S22.42XD Multiple fractures of ribs, left side, subsequent encounter for fracture with routine healing (principal); R50.9 Fever, unspecified; Y09 Assault by unspecified means; F17.210 Nicotine dependence, cigarettes, uncomplicated; F10.20 Alcohol dependence, uncomplicated; K70.30 Alcoholic cirrhosis of liver without ascites; J45.30 Mild persistent asthma, uncomplicated; F41.9 Anxiety disorder, unspecified; J44.9 Chronic obstructive pulmonary disease, unspecified; I27.2 Other secondary pulmonary hypertension; I48.91 Unspecified atrial fibrillation; E03.9 Hypothyroidism, unspecified; Z90.49 Acquired absence of other specified parts of digestive tract; Z83.3 Family history of diabetes mellitus; Z82.49 Family history of ischemic heart disease and other diseases of the circulatory system; Z80.6 Family history of leukemia

== ENCOUNTER 2016-12-03 17:06 | Emergency (ER) | payer OTHER ==
[~2016-12-03] VITALS: Ht 175.3 cm; Wt 68.0 kg
[~2016-12-03 17:06] MED LIST changes: +AMOX875T PO; -DILT120C68 PO; -OXYC-57 PO; +OXYC1TAB3 PO; -TRAZ50TA35 PO
[2016-12-03 17:29] VITALS: TEMP 36.7; Ht 175.3 cm; Wt 68.0 kg
--- NOTE | 2016-12-03 18:26 | DIAGNOSTIC IMAGING REPORT ---
CHEST 2 VIEWS ROUTINE CLINICAL HISTORY: Cough. Recent rib fractures. Evaluate for pneumonia. COMPARISON STUDY: Chest CT November 24, 2016. FINDINGS: There is no pneumothorax or pleural effusion. Cardiac size is normal. Mediastinal contours are normal. Several left lower rib fractures are better depicted on prior CT. There is no consolidation to suggest pneumonia. There is no evidence of pulmonary edema. IMPRESSION: No pneumothorax. No areas of consolidation to suggest pneumonia. Electronically signed by: Chuy Rodríguez M.D. 12/03/2016 6:25 PM Dictated Date/Time: 12/03/2016 6:23 PM
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
[2016-12-03 19:04] VITALS: BP 128/83; PULSE 65; O2SAT 98
[2017-01-11] MEDS ORDERED: MULT-589 PO (12:57)
[2017-01-11] MEDS ORDERED: MGNO400 PO (12:57)
[2017-01-11] MEDS ORDERED: FLV1 PO (12:57)
[2017-01-11] MEDS ORDERED: PRT40 PO (12:57)
[2017-01-11] MEDS ORDERED: THM100 PO (12:57)
[2017-02-04] MEDS ORDERED: BND25 PO (21:04)
[2017-02-06] MEDS ORDERED: FLV1 PO (12:24)
[2017-02-06] MEDS ORDERED: NRN600 PO (12:24)
[2017-02-06] MEDS ORDERED: MULTTAB58 PO (12:24)
[2017-02-06] MEDS ORDERED: THM100 PO (12:24)
[2017-03-06] MEDS ORDERED: TRAZ1TAB52 PO (20:24)
[2017-07-10] MEDS ORDERED: BCTRO (16:02)
[2017-07-10] MEDS ORDERED: SALI0.6510 (16:02)
== END 2016-12-03 19:09 | disposition left against medical advice (07) ==
LOC: C.EDB 17:08 → C.EDD 19:09
DX: Z76.5 Malingerer [conscious simulation] (principal); S22.42XA Multiple fractures of ribs, left side, initial encounter for closed fracture; X58.XXXA Exposure to other specified factors, initial encounter; F17.200 Nicotine dependence, unspecified, uncomplicated; J45.909 Unspecified asthma, uncomplicated; F41.9 Anxiety disorder, unspecified; J44.9 Chronic obstructive pulmonary disease, unspecified; E03.9 Hypothyroidism, unspecified; I48.0 Paroxysmal atrial fibrillation; Z90.49 Acquired absence of other specified parts of digestive tract

== ENCOUNTER 2016-12-12 18:58 | Emergency (ER) | payer OTHER ==
[~2016-12-12] VITALS: Ht 165.1 cm; Wt 66.1 kg
[2016-12-12 19:18] VITALS: TEMP 36.6; Ht 165.1 cm; Wt 66.1 kg
[2016-12-12 19:22] VITALS: O2SAT 95
--- NOTE | 2016-12-12 19:32 | DIAGNOSTIC IMAGING REPORT ---
CHEST ONE VIEW PORTABLE CLINICAL HISTORY: Chest pains dyspnea COMPARISON STUDY: 12/03/2016 FINDINGS: Lungs are clear. Mild bilateral hilar fullness considered chronic. Diaphragms smooth. IMPRESSION: No acute process. Electronically signed by: Jean Pereyra M.D. 12/12/2016 7:31 PM Dictated Date/Time: 12/12/2016 7:31 PM
[2016-12-12] MEDS ORDERED: VNTHFA/IN INH (19:50)
[2016-12-12 19:51] LABS: CALCIUM 8.6 mg/dl (8.5-10.1); CREATININE 0.82 mg/dl (0.60-1.40); POTASSIUM 3.8 mmol/L (3.5-5.1)
[2016-12-12 19:55] LABS: ALB/GLOB RATIO 0.7 (0.9-2); CKMB/CK RATIO 0.9 (0-3.0)
[2016-12-12] MEDS ORDERED: OPTIRAY 320 IV PRN (20:00)
[2016-12-12 20:09] LABS: BASO % 0.6 %; BASO ABS # 0.06 K/uL (0-0.2); COMPLETE YES; EOS % 0.8 %; HEMATOCRIT 47.4 % (42-52); IG% 0.3 %; LARGE PLATELETS 1+; LYMPH % 22.6 %; LYMPH ABS # 2.32 K/uL (1.2-3.4); MEAN CELL VOLUME 96.9 fL (80-100); MEAN CORPUSCULAR HEMOGLOBIN 35.4 pg (25-34); MEAN CORPUSCULAR HGB CONC 36.5 g/dl (32-36); MEAN PLATELET VOLUME 12.3 fL (7.4-10.4); MONO % 9.6 %; NEUT % 66.1 %; PLATELET COUNT 127 K/uL (130-400); RED BLOOD COUNT 4.89 M/uL (4.7-6.1); WHITE BLOOD COUNT 10.26 K/uL (4.8-10.8)
[2016-12-12] MEDS ORDERED: MULTI-VITAMIN INFUSION INJ 10 ML, THIAMINE HCL INJ 100 MG, FoLIC ACID INJ 1 MG in SODIU... IV ONE (20:15)
--- NOTE | 2016-12-12 20:20 | DIAGNOSTIC IMAGING REPORT ---
CHEST CTA for PULMONARY ARTERIES CT DOSE: 266.53 mGy.cm HISTORY: Chest pain dyspnea TECHNIQUE: Multiaxial CT images of the chest were performed following the intravenous administration of contrast to evaluate the pulmonary arteries. Maximal intensity projection images were also obtained. COMPARISON STUDY: 11/24/2016 FINDINGS: Substernal thyroid produces described. Thoracic aorta shows mild atherosclerotic change. Pulmonary vasculature enhances appropriately. Mild prominence of the central pulmonary vasculature considered chronic in this patient. Lungs are considered clear. There are no focal infiltrative changes. The healing fractures of the left ribs. As described are again noted. Cirrhotic appearing liver the upper abdomen is present. IMPRESSION: 1. Study is negative for pulmonary embolus. 2. Chronic changes as have been described previously considered unchanged. 3. No acute or interval process compared to the prior exam. Electronically signed by: Jean Pereyra M.D. 12/12/2016 8:19 PM Dictated Date/Time: 12/12/2016 8:17 PM
[2016-12-12 20:46] LABS: URINE APPEARANCE CLEAR (CLEAR); URINE BILIRUBIN NEG (NEG); URINE COLOR DK YELLOW; URINE NITRITE NEG (NEG); URINE PH 6.5 (4.5-7.5); URINE SPECIFIC GRAVITY > 1.045 (1.000-1.030); UROBILINOGEN NEG (NEG); ZZUR CULT IF INDIC CLEAN CATCH NO
[2016-12-12 20:49] LABS: MANUAL MICROSCOPIC REQUIRED? NO; REVIEW REQ? NO
[2016-12-12] MEDS ORDERED: LORAZEPAM 2 MG/ML 1 ML VIAL IV STA (21:00)
[2016-12-12] MEDS ORDERED: METOCLOPRAMIDE HCL INJ 5 MG/ML 2 ML VIAL IV STA (21:00)
[2016-12-12 21:11] LABS: BENZODIAZEPINE, URINE NEG (NEG); COCAINE,URINE NEG (NEG); PHENCYCLIDINE, URINE NEG (NEG)
[2016-12-13 01:30] VITALS: BP 146/87; PULSE 98; O2SAT 94
--- NOTE | 2016-12-15 13:34 | EMERGENCY ROOM VISIT NOTE ---
History First contact with patient: 19:04 Chief Complaint: CHEST PAIN Stated Complaint: CHEST PAIN Nursing Triage Summary: patient was at the bar last night and was given a pill was told to put it under his tongue. states he got sick after he got home. complaints of pain in the chest with nausea and vomiting. and diaphoretic and shaking. History of Present Illness The patient is a 51 year old male who presents to the Emergency Room with complaints of weakness and chest pain over the past one day. The patient was drinking yesterday at a bar, and evidently was given a pill to place under his tongue. The patient does not know what the pill was. The patient states that several hours later he began with pain of his chest, nausea, and vomiting. The patient's symptoms began about 14 hours ago, but his mother only called 911 recently as the patient refused to get out of bed. The patient complaints of left-sided chest pain and shakiness. He states that he was fine yesterday and has not done anything other than come home and go to bed. He has not had anything to eat or drink today. The patient is a chronic alcoholic and has been seen multiple times in this ER for chronic pain related complaints. He does have a relatively recent history of left rib fractures. The patient does not have additional complaints. He rates his overall discomfort an 8/10. He is requesting that we turn off the lights so that he can get some sleep. Review of Systems More than 10 systems were reviewed and otherwise negative with the exception of history of present illness. Past Medical/Surgical History Medical Problems: (1) Alcohol dependence (2) Alcoholic cirrhosis of liver without ascites (3) Asthma, mild persistent (4) Chest pain (5) Chronic anxiety (6) Chronic pancreatitis (7) COPD, mild (8) Esophageal varices (9) Hepatic encephalopathy (10) Hypotension (11) Hypothyroidism (12) Insomnia (13) Paroxysmal atrial fibrillation (14) Portal vein thrombosis (15) Pulmonary HTN (16) Rapid atrial fibrillation (17) Thrombocytopenia (18) Tobacco abuse Surgical Problems: (1) H/O colonoscopy (2) History of cholecystectomy (3) History of esophagogastroduodenoscopy (EGD) Family History Blood clots Diabetes mellitus MOTHER FH: CAD (coronary artery disease) FATHER BROTHER FH: leukemia AUNT Hypertension Social History Smoking Status: Current Every Day Smoker Alcohol Use: heavy Drug Use: none Marital Status: single Housing Status: lives with family Occupation Status: unemployed Current/Historical Medications Scheduled PRN Albuterol Hfa (Ventolin Hfa), 2 PUFFS INH Q4H PRN for SOB/Wheezing Allergies Coded Allergies: Fentanyl (Verified Allergy, Intermediate, RASH ALL OVER BODY, 11/24/16) ALL OVER BODY Physical Exam Vital Signs Date Time Temp Pulse Resp B/P Pulse Ox O2 Delivery O2 Flow Rate FiO2 12/13/16 01:30 98 16 146/87 94 Room Air 12/13/16 00:26 96 18 115/70 94 Room Air 12/12/16 22:54 91 12/12/16 22:42 89 20 116/72 96 Room Air 12/12/16 20:37 87 20 124/78 12/12/16 20:00 88 20 132/88 12/12/16 19:58 86 14 91 12/12/16 19:23 91 18 141/91 12/12/16 19:22 95 Room Air 12/12/16 19:18 36.6 89 20 141/94 95 Room Air 12/12/16 19:18 81 12/12/16 19:16 94 Room Air 12/12/16 19:03 91 20 141/94 Pain Rating (0-10): 0 Physical Exam VITALS: Vitals are noted on the nurse's note and reviewed by myself. Vital signs stable. GENERAL: Well-developed, well-nourished, white male, who is in no acute distress and resting comfortably. Patient is cooperative with the examination. He does have a mild tremor of his bilateral hands. HEAD: Normocephalic atraumatic. MOUTH: Mucous membranes moist. Tonsils are not enlarged. Pharynx without erythema, blood, or exudate. Uvula midline. Airway patent. NECK: Supple without nuchal rigidity. No lymphadenopathy. No thyromegaly. Cervical spine is nontender. HEART: Regular rate and rhythm without murmurs gallops or rubs. LUNGS: Clear to auscultation bilaterally without wheezes, rales or rhonchi. No retractions or accessory muscle use. Mild tenderness along the left-sided chest wall ABDOMEN: Positive normal bowel sounds x 4. Soft, nontender, without masses or organomegaly. No guarding or rebound tenderness. MUSCULOSKELETAL: No muscle atrophy, erythema, or edema noted. Full range of motion without joint tenderness in all extremities. No tenderness to palpation. Normal gait. Strength 5/5 throughout. NEURO: Patient was alert and oriented to person place and time. CN II through XII grossly intact. Medical Decision & Procedures ER Provider Diagnostic Interpretation: CHEST ONE VIEW PORTABLE CLINICAL HISTORY: Chest pains dyspnea COMPARISON STUDY: 12/03/2016 FINDINGS: Lungs are clear. Mild bilateral hilar fullness considered chronic. Diaphragms smooth. IMPRESSION: No acute process. CHEST CTA for PULMONARY ARTERIES CT DOSE: 266.53 mGy.cm HISTORY: Chest pain dyspnea TECHNIQUE: Multiaxial CT images of the chest were performed following the intravenous administration of contrast to evaluate the pulmonary arteries. Maximal intensity projection images were also obtained. COMPARISON STUDY: 11/24/2016 FINDINGS: Substernal thyroid produces described. Thoracic aorta shows mild atherosclerotic change. Pulmonary vasculature enhances appropriately. Mild prominence of the central pulmonary vasculature considered chronic in this patient. Lungs are considered clear. There are no focal infiltrative changes. The healing fractures of the left ribs. As described are again noted. Cirrhotic appearing liver the upper abdomen is present. IMPRESSION: 1. Study is negative for pulmonary embolus. 2. Chronic changes as have been described previously considered unchanged. 3. No acute or interval process compared to the prior exam. Laboratory Results 12/12/16 18:30 Red Blood Count 4.89, Mean Corpuscular Volume 96.9, Mean Corpuscular Hemoglobin 35.4, Mean Corpuscular Hemoglobin Concent 36.5, Mean Platelet Volume 12.3, Neutrophils (%) (Auto) 66.1, Lymphocytes (%) (Auto) 22.6, Monocytes (%) (Auto) 9.6, Eosinophils (%) (Auto) 0.8, Basophils (%) (Auto) 0.6, Neutrophils # (Auto) 6.78, Lymphocytes # (Auto) 2.32, Monocytes # (Auto) 0.99, Eosinophils # (Auto) 0.08, Basophils # (Auto) 0.06 12/12/16 18:30 Test 12/12/16 18:30 12/12/16 19:29 12/12/16 20:17 12/12/16 20:30 White Blood Count 10.26 K/uL (4.8-10.8) Red Blood Count 4.89 M/uL (4.7-6.1) Hemoglobin 17.3 g/dL (14.0-18.0) Hematocrit 47.4 % (42-52) Mean Corpuscular Volume 96.9 fL (80-100) Mean Corpuscular Hemoglobin 35.4 pg (25-34) Mean Corpuscular Hemoglobin Concent 36.5 g/dl (32-36) Platelet Count 127 K/uL (130-400) Mean Platelet Volume 12.3 fL (7.4-10.4) Neutrophils (%) (Auto) 66.1 % Lymphocytes (%) (Auto) 22.6 % Monocytes (%) (Auto) 9.6 % Eosinophils (%) (Auto) 0.8 % Basophils (%) (Auto) 0.6 % Neutrophils # (Auto) 6.78 K/uL (1.4-6.5) Lymphocytes # (Auto) 2.32 K/uL (1.2-3.4) Monocytes # (Auto) 0.99 K/uL (0.11-0.59) Eosinophils # (Auto) 0.08 K/uL (0-0.5) Basophils # (Auto) 0.06 K/uL (0-0.2) RDW Standard Deviation 45.7 fL (36.4-46.3) RDW Coefficient of Variation 12.9 % (11.5-14.5) Immature Granulocyte % (Auto) 0.3 % Immature Granulocyte # (Auto) 0.03 K/uL (0.00-0.02) Large Platelets 1+ Anion Gap 21.0 mmol/L (3-11) Est Creatinine Clear Calc Drug Dose 91.7 ml/min Estimated GFR () 117.8 Estimated GFR (Non- 101.7 BUN/Creatinine Ratio 8.0 (10-20) Calcium Level 8.6 mg/dl (8.5-10.1) Total Bilirubin 2.8 mg/dl (0.2-1) Aspartate Amino Transf (AST/SGOT) 138 U/L (15-37) Alanine Aminotransferase (ALT/SGPT) 68 U/L (12-78) Alkaline Phosphatase 147 U/L (45-117) Total Creatine Kinase 521 U/L (39-308) Creatine Kinase MB 4.6 ng/ml (0.5-3.6) Creatine Kinase MB Ratio 0.9 (0-3.0) Total Protein 7.6 gm/dl (6.4-8.2) Albumin 3.0 gm/dl (3.4-5.0) Globulin 4.6 gm/dl (2.5-4.0) Albumin/Globulin Ratio 0.7 (0.9-2) Lipase 313 U/L (73-393) Bedside D-Dimer > 450 ng/mlFEU (0-450) Bedside Troponin I 0.000 ng/ml (0-0.045) Ethyl Alcohol mg/dL < 3.0 mg/dl (0-3) Urine Color DK YELLOW Urine Appearance CLEAR (CLEAR) Urine pH 6.5 (4.5-7.5) Urine Specific [place] > 1.045 (1.000-1.030) Urine Protein TRACE (NEG) Urine Glucose (UA) NEG (NEG) Urine Ketones 1+ (NEG) Urine Occult Blood 1+ (NEG) Urine Nitrite NEG (NEG) Urine Bilirubin NEG (NEG) Urine Urobilinogen NEG (NEG) Urine Leukocyte Esterase NEG (NEG) Urine WBC (Auto) 1-5 /hpf (0-5) Urine RBC (Auto) 5-10 /hpf (0-4) Urine Hyaline Casts (Auto) 1-5 /lpf (0-5) Urine Epithelial Cells (Auto) 5-10 /lpf (0-5) Urine Bacteria (Auto) NEG (NEG) Urine Opiates Screen NEG (NEG) Urine Methadone, Qualitative NEG (NEG) Urine Barbiturates NEG (NEG) Urine Phencyclidine (PCP) Level NEG (NEG) Ur Amphetamine/Methamphetamine NEG (NEG) MDMA (Ecstasy) Screen NEG (NEG) Urine Benzodiazepines Screen NEG (NEG) Urine Cocaine Metabolite NEG (NEG) Urine Marijuana (THC) NEG (NEG) Medications Administered Medications (Trade) Dose Ordered Sig/Justin Route Start Time Stop Time Status Last Admin Dose Admin Multivitamins/ Thiamine HCl/ Folic Acid/Sodium Chloride (Mvi Infusion Inj/Vitamin B-1 Inj/Folvite Inj/ Nss 1000ml) 1,011.2 ml @ 200 mls/ hr Q5H4M ONCE IV 12/12/16 20:15 12/13/16 01:18 DC 12/12/16 20:15 200 MLS/HR Lorazepam (Ativan Inj) 0.5 mg NOW STAT IV 12/12/16 21:00 12/12/16 21:02 DC 12/12/16 21:21 0.5 MG Metoclopramide HCl (Reglan Inj) 10 mg NOW STAT IV 12/12/16 21:00 12/12/16 21:02 DC 12/12/16 21:20 10 MG ECG Change: Suspect arm lead reversal, interpretation assumes no reversal Normal sinus rhythm Rightward axis Nonspecific ST and T wave abnormality Prolonged QT Abnormal ECG When compared with ECG of 24-OCT-2016 20:59, Nonspecific T wave abnormality now evident in Anterolateral leads Confirmed by Clement Hess ([id number]) on 12/13/2016 12:05:38 PM ED Course Physical exam and history were performed. Nursing notes and EMR were reviewed. Patient appears to have left-sided chest wall pain as well as shakiness that has developed over the past 14 or more hours. The patient is a known alcoholic , and appears to be going through withdrawal clinically. His vital signs appear stable, and the patient clinically is not toxic. His primary request is to be left alone so that he can get some sleep. IV access was established and labs were obtained. EKG is as above and does not show acute ST elevation. The patient was given a banana bag, IV Ativan, and IV Reglan for his symptoms. He was placed on the monitoring manager. The patient's blood work is as above and was reviewed. He does not have a significantly elevated white blood cell count, gross anemia, bandemia, or significant electrolyte imbalance. His CK is slightly elevated, however feel this is likely from some mild dehydration combined with him laying in his bed all day. He does not appear to be in acute renal failure. The patient's troponin 1 is 0, and I suspect that if he had a cardiac etiology for his symptoms over 14 hours this would be elevated. His d-dimer is elevated, and because of this a CT scan was performed. CT scan of the chest does not show acute pulmonary embolism. Additionally it does not show a pneumonia, which was of possible clinical concern is the patient does have recent rib fractures. Overall the patient remained in stable and improving condition after medication and hydration here in the department. I suspect that he is going through alcohol withdrawal symptoms. I discussed the case with my attending physician, Dr. Cruz, and overall we feel he is stable for discharge home. We spoke with the patient's family, and they are comfortable with taking him back home. The family thoroughly understands the importance of returning to the ER with any new , worsening, or concerning symptoms. The patient may be a good candidate for alcohol abuse counseling, and we provided him resources to assist with this. He was asked to follow-up on a short interval with his primary care physician, preferably tomorrow. The patient voiced understanding of this plan and rated his discomfort a 0/10 at the time of departure. The chart was completed utilizing [employer] Speech Voice Recognition Software. Grammatical errors, random word insertions, pronoun errors, and incomplete sentences are an occasional consequence of this system due to software limitations, ambient noise, and hardware issues. Any formal questions or concerns about the content, text, or information contained within the body of this dictation should be directly addressed to the provider for clarification. . Medical Decision Differential diagnosis: Etiologies such as cardiopulmonary etiology, alcohol intoxication, toxicologic, infection, hypoglycemia, electrolyte abnormalities, cardiac sources, intracerebral event, neurologic, as well as others were entertained. Impression Primary Impression: Alcohol withdrawal Additional Impression: Chest pain Departure Information Dispostion Home / Self-Care Condition GOOD Forms HOME CARE DOCUMENTATION FORM, IMPORTANT VISIT INFORMATION Patient Instructions Alcoholism Get Help, Alcohol Withdrawal - [facility], [facility] Additional Instructions You were seen and evaluated today on an emergency basis only. This is not a substitute for, or an effort to provide, complete comprehensive medical care. It is not possible to recognize and treat all injuries or illnesses in a single emergency department visit. For this reason it is recommended that you followup with your primary care physician's office tomorrow for ongoing care and evaluation. Call them first thing in the morning to arrange a follow-up visit. Drink plenty of fluids and remain well hydrated. Continue your medications as previously prescribed. You are welcome to return to the emergency department anytime with new, worsening, or concerning symptoms. Problem Qualifiers
[2017-01-11] MEDS ORDERED: THM100 PO (12:57)
[2017-01-11] MEDS ORDERED: PRT40 PO (12:57)
[2017-01-11] MEDS ORDERED: MULT-589 PO (12:57)
[2017-01-11] MEDS ORDERED: MGNO400 PO (12:57)
[2017-01-11] MEDS ORDERED: FLV1 PO (12:57)
[2017-02-04] MEDS ORDERED: BND25 PO (21:04)
[2017-02-06] MEDS ORDERED: NRN600 PO (12:24)
[2017-02-06] MEDS ORDERED: THM100 PO (12:24)
[2017-02-06] MEDS ORDERED: FLV1 PO (12:24)
[2017-02-06] MEDS ORDERED: MULTTAB58 PO (12:24)
[2017-03-06] MEDS ORDERED: TRAZ1TAB52 PO (20:24)
[2017-07-10] MEDS ORDERED: BCTRO (16:02)
[2017-07-10] MEDS ORDERED: SALI0.6510 (16:02)
== END 2016-12-13 01:52 | disposition home or self-care (01) ==
LOC: EDBD 18:58 → C.EDB 19:01
DX: F10.239 Alcohol dependence with withdrawal, unspecified (principal); R07.9 Chest pain, unspecified; J45.909 Unspecified asthma, uncomplicated; F41.9 Anxiety disorder, unspecified; J44.9 Chronic obstructive pulmonary disease, unspecified; E03.9 Hypothyroidism, unspecified; I48.0 Paroxysmal atrial fibrillation; K70.30 Alcoholic cirrhosis of liver without ascites; Z90.49 Acquired absence of other specified parts of digestive tract; F17.200 Nicotine dependence, unspecified, uncomplicated; Z82.49 Family history of ischemic heart disease and other diseases of the circulatory system

== ENCOUNTER 2017-01-08 20:59 | Inpatient (IN) | payer OTHER ==
[~2017-01-08] VITALS: Ht 165.1 cm; Wt 64.7 kg
[~2017-01-08 20:59] MED LIST changes: -AMOX875T PO; -OXYC1TAB3 PO; +VNTHFA/IN INH
[2017-01-08] MEDS ORDERED: SODIUM CHLORIDE 0.9% 1000ML 1,000 ML IV STA ×2 (23:16)
[2017-01-08] MEDS ORDERED: KETOROLAC TROMETHAMINE 30 MG/ML VIAL IV STA (23:19)
--- NOTE | 2017-01-08 23:26 | EMERGENCY ROOM VISIT NOTE ---
History Report prepared by López: Dawn Willoughby Under the Supervision of: Dr. Cheryle Jimenez D.O. First contact with patient: 22:59 Chief Complaint: VOMITING Stated Complaint: THROWING UP WITH BLOOD,DIARRHEA,CHEST PAIN,SHAKES History of Present Illness The patient is a 51 year old male who presents to the Emergency Room with complaints of resolved vomiting staring 24 hours HYDRAULIC TESTER. The patient states that yesterday he had dinner then 3 hours later started having persistent vomiting episodes. He states that he was unable eat normally because of the persistent vomiting. The patient states that he did not eat today due to the nausea. He states that because he has not eaten he has stopped vomiting. The patient states that he has also had fever, chills, mid chest pain, abdominal pain, and diarrhea with his symptoms. The patient states his diarrhea was clear and turned to a black color. He states that he did take Pepto Bismol for his symptoms. The patient states that he did have a cholecystectomy but no other abdominal surgeries. He states he has had similar symptoms in the past. He denies any history of pancreatitis. He states he drinks regularly and had a drink yesterday a few hours prior to the beginning of his vomiting episodes. Source of History: patient Onset: 24 hours HYDRAULIC TESTER Timing: resolved Modifying Factors (Relieving): other (Not eating) Associated Symptoms: + abdominal pain, + chest pain (mid), + chills, + diarrhea (clear then turned to black in color), + fevers, + nausea Review of Systems See HPI for pertinent positives & negatives. A total of 10 systems reviewed and were otherwise negative. Past Medical & Surgical Medical Problems: (1) Alcohol dependence (2) Alcoholic cirrhosis of liver without ascites (3) Asthma, mild persistent (4) Chest pain (5) Chronic anxiety (6) Chronic pancreatitis (7) COPD, mild (8) Esophageal varices (9) Hepatic encephalopathy (10) Hypotension (11) Hypothyroidism (12) Insomnia (13) Paroxysmal atrial fibrillation (14) Portal vein thrombosis (15) Pulmonary HTN (16) Rapid atrial fibrillation (17) Thrombocytopenia (18) Tobacco abuse (19) UGIB (upper gastrointestinal bleed) Surgical Problems: (1) H/O colonoscopy (2) History of cholecystectomy (3) History of esophagogastroduodenoscopy (EGD) Family History Blood clots Diabetes mellitus MOTHER FH: CAD (coronary artery disease) FATHER BROTHER FH: leukemia AUNT Hypertension Social History Smoking Status: Current Every Day Smoker Alcohol Use: heavy Drug Use: none Marital Status: single Housing Status: lives with family Occupation Status: unemployed Current/Historical Medications Scheduled PRN Albuterol Hfa (Ventolin Hfa), 2 PUFFS INH Q4H PRN for SOB/Wheezing Allergies Coded Allergies: Fentanyl (Verified Allergy, Intermediate, RASH ALL OVER BODY, 01/08/17) ALL OVER BODY Physical Exam Vital Signs Date Time Temp Pulse Resp B/P Pulse Ox O2 Delivery O2 Flow Rate FiO2 01/09/17 02:59 71 17 96 01/09/17 02:29 65 18 96 01/09/17 02:17 134/87 01/09/17 02:05 79 01/09/17 01:59 85 21 98 01/09/17 01:41 78 16 122/71 98 Room Air 01/09/17 01:41 122/71 01/09/17 01:29 65 12 94 01/09/17 00:59 75 19 95 01/09/17 00:29 78 16 96 01/08/17 23:59 88 16 97 01/08/17 23:29 64 13 97 01/08/17 23:03 82 18 156/101 97 01/08/17 23:02 96 Room Air 01/08/17 23:02 87 145/91 90 144/96 105 156/101 01/08/17 22:59 89 16 98 01/08/17 22:54 99 01/08/17 22:52 156/101 01/08/17 22:51 144/96 01/08/17 21:23 36.8 91 20 144/95 96 Room Air Physical Exam HEENT: Head - normocephalic and atraumatic Pupils are equal, round, and reactive to light. Extraocular eye muscles are intact, and sclera are anicteric. Nose - moist nasal mucosa without discharge. Mouth - moist buccal mucosa. Oropharynx is nonerythematous and there is no tonsillar exudate or edema noted. Neck: Supple; no JVD, nuchal rigidity, cervical lymphadenopathy. Heart: Regular rate and rhythm. There is a normal S1 and S2 with no murmurs, clicks, or gallops appreciated. Lungs: Clear to auscultation bilaterally with no wheezes, rales, or rhonchi. Abdomen: Soft, epigastric pain with palpation, nondistended, with good bowel sounds. There are no palpable pulsatile masses or hepatosplenomegaly. There is no guarding, rigidity, or rebound noted. Extremities: No evidence of cyanosis, clubbing, or edema. There are easily palpable peripheral pulses. Skin: warm and dry with good turgor and no rashes. Medical Decision & Procedures Laboratory Results 01/08/17 22:35 Red Blood Count 4.72, Mean Corpuscular Volume 95.8, Mean Corpuscular Hemoglobin 35.6, Mean Corpuscular Hemoglobin Concent 37.2, Mean Platelet Volume 12.2, Neutrophils (%) (Auto) 59.0, Lymphocytes (%) (Auto) 27.0, Monocytes (%) (Auto) 11.4, Eosinophils (%) (Auto) 1.7, Basophils (%) (Auto) 0.6, Neutrophils # (Auto ) 4.27, Lymphocytes # (Auto) 1.95, Monocytes # (Auto) 0.82, Eosinophils # (Auto ) 0.12, Basophils # (Auto) 0.04 01/09/17 02:37 01/08/17 22:35 Test 01/08/17 22:35 01/08/17 22:53 01/09/17 00:08 01/09/17 02:37 White Blood Count 7.22 K/uL (4.8-10.8) Red Blood Count 4.72 M/uL (4.7-6.1) Hemoglobin 16.8 g/dL (14.0-18.0) Hematocrit 45.2 % (42-52) Mean Corpuscular Volume 95.8 fL (80-100) Mean Corpuscular Hemoglobin 35.6 pg (25-34) Mean Corpuscular Hemoglobin Concent 37.2 g/dl (32-36) Platelet Count 93 K/uL (130-400) Mean Platelet Volume 12.2 fL (7.4-10.4) Neutrophils (%) (Auto) 59.0 % Lymphocytes (%) (Auto) 27.0 % Monocytes (%) (Auto) 11.4 % Eosinophils (%) (Auto) 1.7 % Basophils (%) (Auto) 0.6 % Neutrophils # (Auto) 4.27 K/uL (1.4-6.5) Lymphocytes # (Auto) 1.95 K/uL (1.2-3.4) Monocytes # (Auto) 0.82 K/uL (0.11-0.59) Eosinophils # (Auto) 0.12 K/uL (0-0.5) Basophils # (Auto) 0.04 K/uL (0-0.2) RDW Standard Deviation 46.1 fL (36.4-46.3) RDW Coefficient of Variation 13.1 % (11.5-14.5) Immature Granulocyte % (Auto) 0.3 % Immature Granulocyte # (Auto) 0.02 K/uL (0.00-0.02) Platelet Estimate DECREASED Red Blood Cell Morphology Unremarkable Anion Gap 11.0 mmol/L (3-11) Est Creatinine Clear Calc Drug Dose 90.5 ml/min Estimated GFR () 115.6 Estimated GFR (Non- 99.7 BUN/Creatinine Ratio 8.0 (10-20) Calcium Level 8.5 mg/dl (8.5-10.1) Total Bilirubin 4.1 mg/dl (0.2-1) Direct Bilirubin 0.6 mg/dl (0-0.2) Aspartate Amino Transf (AST/SGOT) 181 U/L (15-37) Alanine Aminotransferase (ALT/SGPT) 98 U/L (12-78) Alkaline Phosphatase 147 U/L (45-117) Total Protein 7.8 gm/dl (6.4-8.2) Albumin 3.2 gm/dl (3.4-5.0) Lipase 160 U/L (73-393) Prothrombin Time 12.4 SECONDS (9.0-12.0) Prothromb Time International Ratio 1.2 (0.9-1.1) Activated Partial Thromboplast Time 26.7 SECONDS (21.0-31.0) Partial Thromboplastin Ratio 1.0 Urine Color ORANGE Urine Appearance CLEAR (CLEAR) Urine pH 8.5 (4.5-7.5) Urine Specific [place] 1.027 (1.000-1.030) Urine Protein NEG (NEG) Urine Glucose (UA) NEG (NEG) Urine Ketones TRACE (NEG) Urine Occult Blood TRACE (NEG) Urine Nitrite POS (NEG) Urine Bilirubin 1+ (NEG) Urine Urobilinogen NEG (NEG) Urine Leukocyte Esterase SMALL (NEG) Urine WBC (Auto) 1-5 /hpf (0-5) Urine RBC (Auto) 10-30 /hpf (0-4) Urine Hyaline Casts (Auto) 1-5 /lpf (0-5) Urine Epithelial Cells (Auto) >30 /lpf (0-5) Urine Bacteria (Auto) NEG (NEG) Magnesium Level 1.4 mg/dl (1.8-2.4) Ethyl Alcohol mg/dL < 3.0 mg/dl (0-3) Date/Time Source Procedure Growth Status 01/09/17 03:00 Stool C.difficile Toxin B Gene (PCR) - Final No C. difficile toxin B gene detected Complete Laboratory results per my review. Medications Administered Medications (Trade) Dose Ordered Sig/Justin Route Start Time Stop Time Status Last Admin Dose Admin Sodium Chloride 1,000 ml @ 999 mls/hr Q1H1M STAT IV 01/08/17 23:16 01/09/17 00:16 DC 01/08/17 23:26 999 MLS/HR Sodium Chloride (Nss 1000ml) 1,000 ml @ 250 mls/hr Q4H STAT IV 01/08/17 23:16 01/09/17 03:15 DC 01/09/17 01:43 250 MLS/HR Ketorolac Tromethamine 30 mg 30 mg NOW STAT IV 01/08/17 23:19 01/08/17 23:20 DC 01/08/17 23:26 30 MG Multivitamins 10 ml/Thiamine HCl 100 mg/Folic Acid 1 mg/Sodium Chloride 1,011.2 ml @ 250 mls/ hr Q4H3M STAT IV 01/09/17 01:40 01/09/17 05:42 01/09/17 01:58 250 MLS/HR Pantoprazole Sodium/Syringe (Protonix Inj/ Syringe) 20 ml @ 5 mls/min NOW STAT IV 01/09/17 02:50 01/09/17 02:53 DC 01/09/17 03:38 5 MLS/MIN Procedure Medications Administered: Sodium Chloride Ketorolac Tromethamine Banana bag ECG Indication: vomiting Rate (beats per minute): 79 Rhythm: normal sinus Findings: ST depression (Anterior), T-wave inversion (Inferior) Comparison ECG Date: December 12, 2016 Change: Findings are new compared to old EKG. ED Course 2315: Past medical records reviewed. The patient was evaluated in room A2. A complete history and physical exam was performed. An IV lock was initiated and labs are drones above. Twelve-lead EKG was obtained as described above. 2316: Ordered Sodium Chloride 1,000 ml @ 250 mls/hr IV, Sodium Chloride 1,000 ml @ 999 mls/hr IV. 2319: Ordered Toradol Inj 30 mg IV. 0140: The patient is much more comfortable at this time. Ordered a banana bag 0159: I discussed the case with Dr. Martin Tian. He agreed to evaluate the patient for further management and care. 0200: I updated the patient that he would be admitted to the hospital for further evaluation and care. Medical Decision The patient is a 51 year old male who presents to the ED with vomiting. Differential diagnosis includes but is not limited to GI bleed, gastroenteritis , viral illness, pancreatitis, and food borne illness. Labs: Normal white count Normal H&H Platelet Count 93 Sodium 146 Normal renal function Total bilirubin 4.1. Elevated from his baseline. AST 181 ALT 98 Normal Lipase Troponin: Pending Urine yellow in color Trace ketones Trace blood Positive nitrates Small Leukocyte Esterase Heme positive stool The patient presents to the emergency department with epigastric pain and vomiting. The patient has a history of alcohol abuse. I was concerned about the possibility of pancreatitis. Lipase was normal. However, the patient's total bilirubin has increased and transaminases are elevated. This is consistent with alcoholic hepatitis. Patient described having black stools which was thought to be secondary to Pepto-Bismol use. However, heme testing was positive. Also, the patient's EKG is different from previous EKGs. Cardiac enzymes are pending. The patient was noted to be markedly thrombocytopenic. The patient's hemogram is stable. I discussed the case with the Saji Tian and they will evaluate for further management. Consults Time Called: 014 Consulting Physician: Dr. Martin Tian. Returned Call: 015 I discussed the case with Dr. Martin Tian. He agreed to evaluate the patient for further management and care. Impression Primary Impression: Alcoholic hepatitis Additional Impressions: GI bleed Vomiting Thrombocytopenia Scribe Attestation The scribe's documentation has been prepared under my direction and personally reviewed by me in its entirety. I confirm that the note above accurately reflects all work, treatment, procedures, and medical decision making performed by me. Departure Information Dispostion Being Evaluated By Hospitalist Patient Instructions [facility] Problem Qualifiers
[2017-01-08 23:36] LABS: CALCIUM 8.5 mg/dl (8.5-10.1); CREATININE 0.86 mg/dl (0.60-1.40); POTASSIUM 3.5 mmol/L (3.5-5.1)
[2017-01-08 23:54] LABS: HEMATOCRIT 45.2 % (42-52); MEAN CELL VOLUME 95.8 fL (80-100); MEAN CORPUSCULAR HEMOGLOBIN 35.6 pg (25-34); MEAN CORPUSCULAR HGB CONC 37.2 g/dl (32-36); MEAN PLATELET VOLUME 12.2 fL (7.4-10.4); PLATELET COUNT 93 K/uL (130-400); RED BLOOD COUNT 4.72 M/uL (4.7-6.1); WHITE BLOOD COUNT 7.22 K/uL (4.8-10.8)
[2017-01-08 23:55] LABS: BASO % 0.6 %; BASO ABS # 0.04 K/uL (0-0.2); COMPLETE YES; EOS % 1.7 %; IG% 0.3 %; LYMPH ABS # 1.95 K/uL (1.2-3.4); MONO % 11.4 %; PLT ESTIMATE DECREASED
[2017-01-09] VITALS (9 sets, daily range): BP systolic 102–128; BP diastolic 54–84; PULSE 61–86; TEMP 36.4–36.9; O2SAT 91–99; Ht 165.1 cm; Wt 64.7 kg
[2017-01-09 00:33] LABS: URINE APPEARANCE CLEAR (CLEAR); URINE COLOR ORANGE; URINE EPITHELIAL CELL AUTO >30 /lpf (0-5); URINE NITRITE POS (NEG); URINE PH 8.5 (4.5-7.5); URINE SPECIFIC GRAVITY 1.027 (1.000-1.030); UROBILINOGEN NEG (NEG)
[2017-01-09 00:55] LABS: URINE BILIRUBIN 1+ (NEG)
[2017-01-09 00:56] LABS: MANUAL MICROSCOPIC REQUIRED? NO; REVIEW REQ? NO; SULFASALICYLIC ACID NEG (NEG)
[2017-01-09] MEDS ORDERED: MULTI-VITAMIN INFUSION INJ 10 ML, THIAMINE HCL INJ 100 MG, FoLIC ACID INJ 1 MG in SODIU... IV STA (01:40)
[2017-01-09 02:09] LABS: INR 1.2 (0.9-1.1); PROTHROMBIN TIME (PATIENT) 12.4 SECONDS (9.0-12.0)
[2017-01-09 02:48] LABS: HEMATOCRIT 40.8 % (42-52)
[2017-01-09] MEDS ORDERED: PANTOprazole INJ 80 MG in SYRINGE 0 ML IV STA (02:50)
[2017-01-09] MEDS ORDERED: OPTIRAY 320 IV PRN (03:45)
[2017-01-09] MEDS ORDERED: LORAZEPAM 2 MG/ML 1 ML VIAL IV STA (03:59)
[2017-01-09] MEDS ORDERED: LORAZEPAM 2 MG/ML 1 ML VIAL IV PRN (04:00)
[2017-01-09] MEDS ORDERED: PROMETHAZINE HCL INJ 12.5 MG in SODIUM CHLORIDE 0.9% 50ML 50 ML IV PRN (04:00)
[2017-01-09] MEDS ORDERED: NITROGLYCERIN 0.4 MG SL PER TAB CHARGE SL PRN (04:00)
[2017-01-09] MEDS ORDERED: MoRPHine SULFATE 2 MG/ML CARP IV PRN (04:00)
[2017-01-09] MEDS ORDERED: ONDANSETRON INJ 2 MG/ML 2 ML VIAL IV PRN (04:00)
[2017-01-09] MEDS ORDERED: GABAPENTIN 600 MG TAB PO STA (04:07)
[2017-01-09] MEDS ORDERED: MAGNESIUM SULFATE 1GM / D5W 1 GM BAG ONE (04:42)
[2017-01-09] MEDS: MAGNESIUM SULFATE 1GM / D5W 1 GM in PREMIXED IN D5W 100 ML IV SCH ×2 (04:45→05:00)
[2017-01-09] MEDS: SODIUM CHLOR 0.45% + 20MEQ KCL 1,000 ML IV SCH ×2 (05:19→23:44)
[2017-01-09] MEDS: PANTOprazole INJ 40 MG in DEXTROSE 5% 100ML 100 ML IV SCH ×5 (05:21→23:45)
[2017-01-09] MEDS: CEFTRIAXONE SOD INJ 1 GM in DEXTROSE 5% ADD-VANTAGE 50ML 50 ML IV SCH (06:51)
[2017-01-09 08:11] LABS: HEMATOCRIT 39.9 % (42-52)
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
--- NOTE | 2017-01-09 08:25 | DIAGNOSTIC IMAGING REPORT ---
ABDOMEN AND PELVIS CT WITH IV CONTRAST CT DOSE: 271.55 mGy.cm HISTORY: Generalized abdominal pain. GI bleed. TECHNIQUE: Multiaxial CT images of the abdomen and pelvis were performed following the use of intravenous contrast. COMPARISON STUDY: Abdomen and pelvis CT 11/12/2016. FINDINGS: Cirrhotic appearing liver with varices. Cholecystectomy. The lung bases are clear. No pneumoperitoneum. No pneumatosis. Healing left posterior rib fractures. Old left pubic ring fracture. The spleen and adrenal glands, and kidneys are unremarkable. Stable 6 mm hypodense lesion within the pancreatic head on image 133. 5 mm hypodense lesion within the posterior segment of the right hepatic lobe on image 67. This is too small to characterize. No retroperitoneal lymphadenopathy. Mild bladder wall thickening which could be due to underdistention. Normal appendix. No evidence for bowel obstruction. No bowel wall thickening. The main portal vein is patent. IMPRESSION: 1. No bowel wall thickening or obstruction. 2. Normal appendix. 3. Cirrhotic liver with associated varices. 4. Mild bladder wall thickening which may be due to underdistention. 5. A 5 mm hypodense lesion within the right hepatic lobe. This is too small to characterize. 6. A 6 mm hypodense lesion within the pancreatic head. This favors a small side branch intraductal papillary mucinous neoplasm. Electronically signed by: Villa Clinton M.D. 01/09/2017 8:23 AM Dictated Date/Time: 01/09/2017 8:15 AM
--- NOTE | 2017-01-09 08:28 | HISTORY & PHYSICAL EXAMINATION ---
DATE OF ADMISSION: 01/09/2017 PRIMARY CARE PHYSICIAN: Dr. Cr. Hx obtained from px and records. CHIEF COMPLAINT: Hematemesis, abdominal pain. HISTORY OF PRESENT ILLNESS: Medical history significant for alcoholic cirrhosis, ongoing tobacco and alcohol abuse, COPD as per records, hypertension, paroxysmal AFib, chronic thrombocytopenia, history of esophageal varices, history of a PE off anticoag because of thrombocytopenia and GI bleed. Recent confinement September 2016 for chest pain. Yesterday patient was eating, he felt sick, subsequently had recurrent bilious emesis episodes later bloody, achy epigastric discomfort going to chest, achy, some shortness of breath. Patient subsequently noted dark stools. Denies bladder discomfort or burning. Patient brought to the Emergency Room. MEDICAL HISTORY: As above. Varices and duodenitis on 2014 EGD. 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 SURGERIES: He has had a cholecystectomy. HOME MEDICATIONS: Include albuterol as needed. ALLERGIES: FENTANYL. FAMILY HISTORY: HTN PERSONAL AND SOCIAL HISTORY: Pack daily, daily alcohol intake. Disabled. REVIEW OF SYSTEMS: As per HPI, all other ROS negative. PHYSICAL EXAMINATION: VITAL SIGNS: Blood pressure noted to be 140/80, pulse rate 80, RR 21, temperature 36.8, sats 96 on room air. GENERAL: Noted to be uncomfortable, chronically ill. Dysphonic. no respiratory distress. tremulous SKIN: Normal color. HEENT: [place] palpebral conjunctivae. Dry mucosa. NECK: Short neck. LUNGS: Decreased breaths. Occasional wheeze. HEART: Regular rate and rhythm. ABDOMEN: Epigastric tenderness. EXTREMITIES: No edema. no tenderness NEUROLOGIC: No gross focality except for being tremulous. LABS: Hemoglobin was noted to be 16.8, platelets 80. Sodium was noted to be 143, K 3.8 chloride 109, CO2 of 26, creatinine 1, glucose 100, AST 181, ALT 98, ALP 170 trop is pending EKG rate 80, normal sinus rhythm, some ST depression on the septal leads. T-wave inversion in inferior leads. CT abdomen and pelvis initial read showed questionable mild thickening of the bladder, cystitis; cirrhosis, varices , no bowel obstruction; small bowel enteritis. ASSESSMENT: 1. UGIB differentials include : PUD, gastritis, Kellie-Cueto tear, variceal bleed (history of alcoholic cirrhosis) Patient currently hemodynamically stable. 2. Hypertension, slightly elevated 3. PAF, NSR 4. ongoing alcohol and tobacco abuse 5. history of pulmonary embolism, off anticoagulation because of thrombocytopenia 6. UTI, no sepsis 7. diarrhea ro cdif 8. alcoholic hepatitis PLAN: PCU. Protonix drip serial HH, transfuse prbc if hemoglobin less than 7 and/or symptomatic anemia May need Octreotide for possible variceal bleed if w/ significant Hg drop GI consult RE UGIB ff urine CS, IV Ceftriaxone DVT prophylaxis, SCDs. RE GI bleed DT precautions. Full code. MTDD
[2017-01-09 08:41] LABS: BUN/CREATININE RATIO 10.1 (10-20); CREATININE 0.76 mg/dl (0.60-1.40); MAGNESIUM 2.4 mg/dl (1.8-2.4); POTASSIUM 3.3 mmol/L (3.5-5.1)
[2017-01-09 09:21] LABS: CALCIUM 7.2 mg/dl (8.5-10.1)
[2017-01-09] MEDS: GABAPENTIN 600 MG TAB PO SCH ×3 (10:51→23:43)
[2017-01-09] MEDS ORDERED: MIDAZOLAM HCL 1 MG/ML 2ML VIAL ONE (11:46)
[2017-01-09] MEDS ORDERED: PROPOFOL IV EMULSION 10 MG/ML 20 ML VIAL IV ONE (12:23)
[2017-01-09] MEDS ORDERED: LIDOCAINE HCL 2% 2 ML VIAL (20MG/ML) ONE (12:23)
--- NOTE | 2017-01-09 12:49 | GI REPORT ---
Procedure Date: 01/09/2017 11:36 AM Procedure: Upper GI endoscopy Indications: Coffee-ground emesis, Melena Medicines: Monitored Anesthesia Care Complications: No immediate complications. Estimated blood loss: Minimal. Estimated Blood Loss: Estimated blood loss was minimal. Procedure: Pre-Anesthesia Assessment: - Prior to the procedure, a History and Physical was performed, and patient medications, allergies and sensitivities were reviewed. The patient's tolerance of previous anesthesia was reviewed. - The risks and benefits of the procedure and the sedation options and risks were discussed with the patient. All questions were answered and informed consent was obtained. - Patient identification and proposed procedure were verified prior to the procedure by the physician, the nurse and the social work msw. The procedure was verified in the procedure room. - Pre-procedure physical examination revealed no contraindications to sedation. - ASA Grade Assessment: III - A patient with severe systemic disease. - After reviewing the risks and benefits, the patient was deemed in satisfactory condition to undergo the procedure. - The anesthesia plan was to use monitored anesthesia care (MAC). - Immediately prior to administration of medications, the patient was re-assessed for adequacy to receive sedatives. - The heart rate, respiratory rate, oxygen saturations, blood pressure, adequacy of pulmonary ventilation, and response to care were monitored throughout the procedure. - The physical status of the patient was re-assessed after the procedure. After obtaining informed consent, the endoscope was passed under direct vision. Throughout the procedure, the patient's blood pressure, pulse, and oxygen saturations were monitored continuously. The scope was introduced through the mouth, and advanced to the third part of duodenum. The upper GI endoscopy was accomplished without difficulty. The patient tolerated the procedure well. Findings: Two columns of non-bleeding grade I varices were found in the lower third of the esophagus,. They were 2 mm in largest diameter. No stigmata of recent bleeding were evident and no red beatrice signs were present. Estimated blood loss: none. The Z-line was regular and was found 38 cm from the incisors. Diffuse mild inflammation characterized by erythema and granularity was found in the entire examined stomach. Patchy mild inflammation characterized by congestion (edema), erythema and granularity was found in the duodenal bulb. The 2nd part of the duodenum and 3rd part of the duodenum were normal. Impression: - Non-bleeding grade I esophageal varices. - Z-line regular, 38 cm from the incisors. - Gastritis. - Duodenitis. - Normal 2nd part of the duodenum and 3rd part of the duodenum. - No evidence of recent upper GI bleeding today. Recommendation: - Return patient to hospital [facility] for ongoing care. - Observe patient's clinical course. - "Melena" likely related to Pepto Bismol use. - EGD in 1 year for surveillance of the varices - Will plan for colonoscopy to evaluate the Heme + stool. Hilda Nieves D.O. Hilda Nieves, 01/09/2017 12:49:27 PM This report has been signed electronically. Note Initiated On: 01/09/2017 11:36 AM I attest to the content of the Intraoperative Record and orders documented therein, exceptions below
--- NOTE | 2017-01-09 12:59 | Anesthesiology Progress Note ---
Anesthesia Post Op Note Date & Time Jan 09, 2017 at 12:58 Vital Signs Pain Intensity: 0.0 Vital Signs Past 12 Hours Date Time Temp Pulse Resp B/P Pulse Ox O2 Delivery O2 Flow Rate FiO2 01/09/17 12:49 76 18 130/84 95 Room Air 01/09/17 12:34 88 18 117/81 95 Room Air 01/09/17 11:51 36.7 76 16 114/73 95 01/09/17 11:35 37 77 24 138/83 100 Room Air 01/09/17 11:15 36.4 77 18 119/74 92 Room Air 01/09/17 08:00 92 Room Air 01/09/17 07:34 36.4 77 18 119/74 92 Room Air 01/09/17 06:23 36.7 61 19 102/54 99 Room Air 01/09/17 05:14 89 18 146/93 01/09/17 04:32 133/80 01/09/17 03:37 145/91 01/09/17 03:34 76 20 99 01/09/17 03:29 81 16 97 01/09/17 02:59 71 17 96 01/09/17 02:29 65 18 96 01/09/17 02:17 134/87 01/09/17 02:05 79 01/09/17 01:59 85 21 98 01/09/17 01:41 78 16 122/71 98 Room Air 01/09/17 01:41 122/71 01/09/17 01:29 65 12 94 01/09/17 00:59 75 19 95 Notes Mental Status: alert / awake / arousable, participated in evaluation Pt Amnestic to Procedure: Yes Nausea / Vomiting: adequately controlled Pain: adequately controlled Airway Patency, RR, SpO2: stable & adequate BP & HR: stable & adequate Hydration State: stable & adequate Anesthetic Complications: no major complications apparent
[2017-01-09 16:20] LABS: HEMATOCRIT 40.5 % (42-52)
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
[2017-01-09] MEDS: ACETAMINOPHEN 325 MG TAB PO PRN ×2 (20:20→22:01)
[2017-01-09 22:33] LABS: HEMATOCRIT 40.5 % (42-52)
[2017-01-09] MEDS: OXYCODONE HCL IR 5 MG TAB (IMMEDIATE RELEASE) PO PRN (23:09)
[2017-01-10] VITALS (7 sets, daily range): BP systolic 111–149; BP diastolic 64–90; PULSE 71–87; TEMP 36.8–37.1; O2SAT 92–98
[2017-01-10] MEDS: ACETAMINOPHEN 325 MG TAB PO PRN ×2 (03:09→16:22)
[2017-01-10] MEDS: PANTOprazole INJ 40 MG in DEXTROSE 5% 100ML 100 ML IV SCH (04:35)
[2017-01-10] MEDS: OXYCODONE HCL IR 5 MG TAB (IMMEDIATE RELEASE) PO PRN (06:14)
[2017-01-10] MEDS: CEFTRIAXONE SOD INJ 1 GM in DEXTROSE 5% ADD-VANTAGE 50ML 50 ML IV SCH (06:15)
[2017-01-10 06:29] LABS: BUN/CREATININE RATIO 10.5 (10-20); CALCIUM 6.9 mg/dl (8.5-10.1); CREATININE 0.73 mg/dl (0.60-1.40); MAGNESIUM 1.4 mg/dl (1.8-2.4); POTASSIUM 3.6 mmol/L (3.5-5.1)
[2017-01-10 06:49] LABS: HEMATOCRIT 38.7 % (42-52); MEAN CELL VOLUME 96.5 fL (80-100); MEAN CORPUSCULAR HEMOGLOBIN 35.4 pg (25-34); MEAN CORPUSCULAR HGB CONC 36.7 g/dl (32-36); MEAN PLATELET VOLUME 12.5 fL (7.4-10.4); PLATELET COUNT 51 K/uL (130-400); RED BLOOD COUNT 4.01 M/uL (4.7-6.1); WHITE BLOOD COUNT 5.88 K/uL (4.8-10.8)
[2017-01-10 06:50] LABS: BASO % 0.7 %; BASO ABS # 0.04 K/uL (0-0.2); COMPLETE YES; EOS % 4.1 %; IG% 0.3 %; LYMPH % 24.3 %; LYMPH ABS # 1.43 K/uL (1.2-3.4); MONO % 10.5 %; NEUT % 60.1 %; PLT ESTIMATE DECREASED
[2017-01-10] MEDS: MULTIVITAMIN TAB PO SCH (08:40)
[2017-01-10] MEDS: GABAPENTIN 600 MG TAB PO SCH ×2 (08:40→16:21)
[2017-01-10] MEDS: THIAMINE HCL 100 MG TAB PO SCH (08:40)
[2017-01-10] MEDS: PANTOprazole SOD 40 MG TAB PO SCH ×2 (09:00→19:54)
--- NOTE | 2017-01-10 09:56 | Gastroenterology Progress Note ---
Progress Note Date of Service: Jan 10, 2017 Subjective Pt evaluation today including: conversation w/ patient, physical exam, chart review, lab review Pt seen and evaluated this AM. He has no GI complaints. He reports he had three BMs over night, no black or bloody stools. He is agreeable to an inpatient colonoscopy tomorrow. No signs of ETOH withdrawal. VSS. H&H stable. EGD 01/09/17: Non-bleeding grade I esophageal varices. Z-line regular, 38 cm from the incisors.Gastritis. Duodenitis. Normal 2nd part of the duodenum and 3rd part of the duodenum. Review of Systems Constitutional: No chills, No fever Respiratory: No cough, No shortness of breath Cardiac: No chest pain, No edema Abdomen: + pain (generalizes abdominal discomfort, he is also hungry), No GI bleeding, No constipation, No diarrhea, No nausea, No vomiting Medications Current Inpatient Medications Medications (Trade) Dose Ordered Sig/Justin Route Start Time Stop Time Status Last Admin Dose Admin Ioversol (Optiray 320) 100 ml UD PRN IV 01/09/17 03:45 01/13/17 03:44 Acetaminophen (Tylenol Tab) 325 mg Q6H PRN PO 01/09/17 04:00 02/08/17 03:59 01/10/17 03:09 325 MG Nitroglycerin (Nitrostat Tab) 0.4 mg UD PRN SL 01/09/17 04:00 02/08/17 03:59 Lorazepam 1 mg 1 mg Q1H PRN IV 01/09/17 04:00 02/08/17 03:59 Potassium Chloride/Sodium Chloride (1/2 Nss + 20meq KCl 1000ml) 1,000 ml @ 50 mls/hr Q20H IV 01/09/17 04:00 02/08/17 03:59 01/09/17 23:44 50 MLS/HR Thiamine HCl (Vitamin B-1 Tab) 100 mg QAM PO 01/10/17 09:00 02/09/17 08:59 01/10/17 08:40 100 MG Multivitamins (Multivitamin Tab) 1 tab QAM PO 01/10/17 09:00 02/09/17 08:59 01/10/17 08:40 1 TAB Folic Acid (Folvite Tab) 1 mg QAM PO 01/09/17 05:00 02/08/17 04:59 01/10/17 08:40 1 MG Ondansetron HCl (Zofran Inj) 4 mg Q6H PRN IV 01/09/17 04:00 02/08/17 03:59 Gabapentin (Neurontin Tab) 600 mg Q8H PO 01/10/17 00:00 01/10/17 16:01 01/10/17 08:40 600 MG Gabapentin (Neurontin Tab) 600 mg Q12H PO 01/11/17 04:00 01/11/17 16:01 Gabapentin (Neurontin Tab) 600 mg TODAY@1600 PO 01/12/17 16:00 01/12/17 16:01 Pantoprazole Sodium (Protonix Tab) 40 mg BID PO 01/10/17 09:00 02/09/17 08:59 Objective Vital Signs Date Time Temp Pulse Resp B/P Pulse Ox O2 Delivery O2 Flow Rate FiO2 01/10/17 07:18 37.1 87 18 129/82 96 Room Air 01/10/17 04:24 37.0 73 20 127/90 98 Room Air 01/10/17 04:00 Room Air 01/10/17 00:00 Room Air 01/09/17 23:13 36.9 86 20 128/84 97 Room Air 01/09/17 19:11 36.8 79 16 115/69 91 Room Air 01/09/17 16:00 Room Air 01/09/17 14:58 36.9 82 18 122/83 91 Room Air 01/09/17 13:04 74 18 135/86 96 Room Air 01/09/17 12:49 76 18 130/84 95 Room Air 01/09/17 12:34 88 18 117/81 95 Room Air 01/09/17 12:00 96 Room Air 01/09/17 11:51 36.7 76 16 114/73 95 01/09/17 11:35 37 77 24 138/83 100 Room Air 01/09/17 11:15 36.4 77 18 119/74 92 Room Air Physical Exam General Appearance: no apparent distress (pt was sleeping prior to exam) Eyes: PERRL ENT: hearing grossly normal Neck: supple, trachea midline Respiratory/Chest: lungs clear, normal breath sounds, no respiratory distress, no accessory muscle use Cardiovascular: regular rate, rhythm, no edema, no gallop, no JVD, no murmur Abdomen: normal bowel sounds, soft, no organomegaly, no pulsatile mass, + tenderness (generalized tenderness, pt is also requesting food) Neurologic/Psych: alert, normal mood/affect, oriented x 3 Skin: normal color, warm/dry, no rash Laboratory Results Last 24 Hours Test 01/09/17 16:10 01/09/17 22:17 01/10/17 05:31 Hemoglobin 14.3 g/dL 14.5 g/dL 14.2 g/dL Hematocrit 40.5 % 40.5 % 38.7 % White Blood Count 5.88 K/uL Red Blood Count 4.01 M/uL Mean Corpuscular Volume 96.5 fL Mean Corpuscular Hemoglobin 35.4 pg Mean Corpuscular Hemoglobin Concent 36.7 g/dl Platelet Count 51 K/uL Mean Platelet Volume 12.5 fL Neutrophils (%) (Auto) 60.1 % Lymphocytes (%) (Auto) 24.3 % Monocytes (%) (Auto) 10.5 % Eosinophils (%) (Auto) 4.1 % Basophils (%) (Auto) 0.7 % Neutrophils # (Auto) 3.53 K/uL Lymphocytes # (Auto) 1.43 K/uL Monocytes # (Auto) 0.62 K/uL Eosinophils # (Auto) 0.24 K/uL Basophils # (Auto) 0.04 K/uL RDW Standard Deviation 46.0 fL RDW Coefficient of Variation 13.0 % Immature Granulocyte % (Auto) 0.3 % Immature Granulocyte # (Auto) 0.02 K/uL Platelet Estimate DECREASED Sodium Level 139 mmol/L Potassium Level 3.6 mmol/L Chloride Level 107 mmol/L Carbon Dioxide Level 22 mmol/L Anion Gap 10.0 mmol/L Blood Urea Nitrogen 8 mg/dl Creatinine 0.73 mg/dl Est Creatinine Clear Calc Drug Dose 103.0 ml/min Estimated GFR () 123.6 Estimated GFR (Non- 106.6 BUN/Creatinine Ratio 10.5 Random Glucose 82 mg/dl Calcium Level 6.9 mg/dl Magnesium Level 1.4 mg/dl Assessment and Plan Patient is a 51 year old male with ETOH cirrhosis who continues to drink ETOH, who has a 3 day history of melena and hematemesis. EGD yesterday without a source of GI bleeding identified. We will proceed with colonoscopy Plan Clear liquid diet today NPO after midnight Colonoscopy 01/11/17 20 mg Dulcolax, 119gm miralax 1700 119gm miralax 2100 PPI BID IVF for hydration Trend H&H Transfuse if needed --> currently VSS and hemodynamically stable Monitor stools Anti-emetics PRN MELD Score 14 Maddrey Score 4.1 --> not likely to benefit from steroid treatment for ETOH hepatitis I saw and evalauted the patient. Colonoscopy on for eval for heme + stool.
--- NOTE | 2017-01-10 16:17 | Progress Note ---
Medicine Progress Note Date & Time of Visit: Jan 10, 2017 at 16:02. Subjective Patient seen and examined. Denies tremors or hallucinations. Anticipating colonoscopy tomorrow. Objective Last 8 Hrs Date Time Temp Pulse Resp B/P Pulse Ox O2 Delivery O2 Flow Rate FiO2 01/10/17 15:41 36.8 75 18 149/64 97 Room Air 01/10/17 11:27 36.9 82 18 120/73 94 Room Air Physical Exam: General-awake; alert; NAD Eyes-EOMI; no scleral icterus Neck-no stridor; trachea midline Lungs-CTA bilaterally; no wheezes/crackles Heart-RRR; no m/r/g Abdomen-soft; NTND; nBS Extremities-no c/c/e; no deformity Neuro-minimal tremor of hands; no focal deficits Laboratory Results: Last 24 Hours Test 01/09/17 16:10 01/09/17 22:17 01/10/17 05:31 Hemoglobin 14.3 g/dL 14.5 g/dL 14.2 g/dL Hematocrit 40.5 % 40.5 % 38.7 % White Blood Count 5.88 K/uL Red Blood Count 4.01 M/uL Mean Corpuscular Volume 96.5 fL Mean Corpuscular Hemoglobin 35.4 pg Mean Corpuscular Hemoglobin Concent 36.7 g/dl Platelet Count 51 K/uL Mean Platelet Volume 12.5 fL Neutrophils (%) (Auto) 60.1 % Lymphocytes (%) (Auto) 24.3 % Monocytes (%) (Auto) 10.5 % Eosinophils (%) (Auto) 4.1 % Basophils (%) (Auto) 0.7 % Neutrophils # (Auto) 3.53 K/uL Lymphocytes # (Auto) 1.43 K/uL Monocytes # (Auto) 0.62 K/uL Eosinophils # (Auto) 0.24 K/uL Basophils # (Auto) 0.04 K/uL RDW Standard Deviation 46.0 fL RDW Coefficient of Variation 13.0 % Immature Granulocyte % (Auto) 0.3 % Immature Granulocyte # (Auto) 0.02 K/uL Platelet Estimate DECREASED Sodium Level 139 mmol/L Potassium Level 3.6 mmol/L Chloride Level 107 mmol/L Carbon Dioxide Level 22 mmol/L Anion Gap 10.0 mmol/L Blood Urea Nitrogen 8 mg/dl Creatinine 0.73 mg/dl Est Creatinine Clear Calc Drug Dose 103.0 ml/min Estimated GFR () 123.6 Estimated GFR (Non- 106.6 BUN/Creatinine Ratio 10.5 Random Glucose 82 mg/dl Calcium Level 6.9 mg/dl Magnesium Level 1.4 mg/dl Assessment & Plan Patient is a 51 year old male with PMH of alcohol abuse, HTN, alcoholic liver cirrhosis, h/o PE off of anticoagulation who presented with upper GI bleed. Upper GI bleed - EGD showed grade 1 esophageal varices - H/H stable, hemodynamically stable - no further episodes of bleeding - pantoprazole drip transitioned to PO BID - colonoscopy planned for tomorrow to evaluate heme + stools Alcoholic liver cirrhosis - continue gabapentin protocol - continue folic acid, thiamine and MVI supplementation - encouraged abstinence Possible UTI - urinalysis dirty, but with many epithelial cells - urine cx with 3 organisms, likely skin beatriz - discontinue ceftriaxone DVT prophylaxis with SCD's Dispo: anticipate discharge home when medically stable Consultants: Gastroenterology Procedures: EGD - Non-bleeding grade I esophageal varices. - Z-line regular, 38 cm from the incisors. - Gastritis. - Duodenitis. - Normal 2nd part of the duodenum and 3rd part of the duodenum. - No evidence of recent upper GI bleeding. - EGD in 1 year for surveillance of the varices. CT a/p 1. No bowel wall thickening or obstruction. 2. Normal appendix. 3. Cirrhotic liver with associated varices. 4. Mild bladder wall thickening which may be due to underdistention. 5. A 5 mm hypodense lesion within the right hepatic lobe. This is too small to characterize. 6. A 6 mm hypodense lesion within the pancreatic head. This favors a small side branch intraductal papillary mucinous neoplasm. Current Inpatient Medications: Current Inpatient Medications Medications (Trade) Dose Ordered Sig/Justin Route Start Time Stop Time Status Last Admin Dose Admin Ioversol (Optiray 320) 100 ml UD PRN IV 01/09/17 03:45 01/13/17 03:44 Acetaminophen (Tylenol Tab) 325 mg Q6H PRN PO 01/09/17 04:00 02/08/17 03:59 01/10/17 03:09 325 MG Nitroglycerin (Nitrostat Tab) 0.4 mg UD PRN SL 01/09/17 04:00 02/08/17 03:59 Lorazepam 1 mg 1 mg Q1H PRN IV 01/09/17 04:00 02/08/17 03:59 Potassium Chloride/Sodium Chloride (1/2 Nss + 20meq KCl 1000ml) 1,000 ml @ 50 mls/hr Q20H IV 01/09/17 04:00 02/08/17 03:59 01/09/17 23:44 50 MLS/HR Thiamine HCl (Vitamin B-1 Tab) 100 mg QAM PO 01/10/17 09:00 02/09/17 08:59 01/10/17 08:40 100 MG Multivitamins (Multivitamin Tab) 1 tab QAM PO 01/10/17 09:00 02/09/17 08:59 01/10/17 08:40 1 TAB Folic Acid (Folvite Tab) 1 mg QAM PO 01/09/17 05:00 02/08/17 04:59 01/10/17 08:40 1 MG Ondansetron HCl (Zofran Inj) 4 mg Q6H PRN IV 01/09/17 04:00 02/08/17 03:59 Gabapentin (Neurontin Tab) 600 mg Q8H PO 01/10/17 00:00 01/10/17 16:01 01/10/17 08:40 600 MG Gabapentin (Neurontin Tab) 600 mg Q12H PO 01/11/17 04:00 01/11/17 16:01 Gabapentin (Neurontin Tab) 600 mg TODAY@1600 PO 01/12/17 16:00 01/12/17 16:01 Pantoprazole Sodium (Protonix Tab) 40 mg BID PO 01/10/17 09:00 02/09/17 08:59 01/10/17 09:00 40 MG Bisacodyl (Dulcolax Tab) 20 mg TODAY@1700 ONCE PO 01/10/17 17:00 01/10/17 17:01 Polyethylene (Miralax Powder Packet) 119 gm 1700 PO 01/10/17 17:00 01/10/17 21:00 Polyethylene (Miralax Powder Packet) 119 gm 2100 PO 01/10/17 21:00 01/10/17 23:59
[2017-01-10] MEDS ORDERED: POLYETHYLENE (MIRALAX) 17 GM PACK PO SCH ×2 (17:00→21:00)
[2017-01-10] MEDS ORDERED: BISACODYL 5 MG TABEC PO ONE (17:00)
[2017-01-10] MEDS: SODIUM CHLOR 0.45% + 20MEQ KCL 1,000 ML IV SCH (19:55)
[2017-01-11] MEDS ORDERED: GABAPENTIN 600 MG TAB PO SCH (04:00)
[2017-01-11 04:03] VITALS: BP 125/70; PULSE 64; TEMP 37.1; O2SAT 98
[2017-01-11 05:19] VITALS: PULSE 64
[2017-01-11 07:00] LABS: BUN/CREATININE RATIO 9.3 (10-20); CALCIUM 7.7 mg/dl (8.5-10.1); CREATININE 0.8 mg/dl (0.60-1.40)
[2017-01-11 07:20] LABS: HEMATOCRIT 40.5 % (42-52); MEAN CELL VOLUME 96.9 fL (80-100); MEAN CORPUSCULAR HEMOGLOBIN 34.9 pg (25-34); MEAN PLATELET VOLUME 13.4 fL (7.4-10.4); PLATELET COUNT 53 K/uL (130-400); RED BLOOD COUNT 4.18 M/uL (4.7-6.1); WHITE BLOOD COUNT 6.45 K/uL (4.8-10.8)
[2017-01-11 07:24] VITALS: BP 121/72; PULSE 72; TEMP 37; O2SAT 96
[2017-01-11 08:00] VITALS: O2SAT 96
[2017-01-11] MEDS ORDERED: MAGNESIUM OXIDE 400 MG TAB PO SCH (09:00)
[2017-01-11] MEDS ORDERED: LIDOCAINE HCL 2% 2 ML VIAL (20MG/ML) ONE (09:53)
[2017-01-11] MEDS ORDERED: MIDAZOLAM HCL 1 MG/ML 2ML VIAL ONE (09:53)
[2017-01-11] MEDS ORDERED: PROPOFOL IV EMULSION 10 MG/ML 20 ML VIAL IV ONE (09:53)
[2017-01-11] MEDS ORDERED: ONDANSETRON INJ 2 MG/ML 2 ML VIAL ONE (09:53)
--- NOTE | 2017-01-11 10:15 | GI REPORT ---
Procedure Date: 01/11/2017 9:26 AM Procedure: Colonoscopy Indications: Heme positive stool Medicines: Monitored Anesthesia Care Complications: No immediate complications. Estimated blood loss: Minimal. Estimated Blood Loss: Estimated blood loss was minimal. Procedure: Pre-Anesthesia Assessment: - Prior to the procedure, a History and Physical was performed, and patient medications, allergies and sensitivities were reviewed. The patient's tolerance of previous anesthesia was reviewed. - The risks and benefits of the procedure and the sedation options and risks were discussed with the patient. All questions were answered and informed consent was obtained. - Patient identification and proposed procedure were verified prior to the procedure by the physician, the nurse and the rn stars. The procedure was verified in the procedure room. - Pre-procedure physical examination revealed no contraindications to sedation. - ASA Grade Assessment: III - A patient with severe systemic disease. - After reviewing the risks and benefits, the patient was deemed in satisfactory condition to undergo the procedure. - The anesthesia plan was to use monitored anesthesia care (MAC). - Immediately prior to administration of medications, the patient was re-assessed for adequacy to receive sedatives. - The heart rate, respiratory rate, oxygen saturations, blood pressure, adequacy of pulmonary ventilation, and response to care were monitored throughout the procedure. - The physical status of the patient was re-assessed after the procedure. After I obtained informed consent, the scope was passed under direct vision. Throughout the procedure, the patient's blood pressure, pulse, and oxygen saturations were monitored continuously. The scope was introduced through the anus and advanced to the terminal ileum. The colonoscopy was performed without difficulty. The patient tolerated the procedure well. The quality of the bowel preparation was good. Findings: The digital rectal exam findings include non-thrombosed external hemorrhoids. Pertinent negatives include normal sphincter tone. The terminal ileum appeared normal. A small post polypectomy scar was found at the hepatic flexure. The scar tissue was healthy in appearance. A few small-mouthed diverticula were found in the sigmoid colon. Internal hemorrhoids were found during retroflexion. The hemorrhoids were mild. The exam was otherwise without abnormality. some barotrauma was noted in the right colon (not present during insertion). Impression: - Non-thrombosed external hemorrhoids found on digital rectal exam. - The examined portion of the ileum was normal. - Post-polypectomy scar at the hepatic flexure. - Mild diverticulosis in the sigmoid colon. - Internal hemorrhoids. - The examination was otherwise normal. Recommendation: - Return to hospital [facility] for ongoing care - Repeat colonoscopy in 5 years for surveillance. Hilda Nieves D.O. Hilda Nieves, 01/11/2017 10:15:15 AM This report has been signed electronically. Note Initiated On: 01/11/2017 9:26 AM I attest to the content of the Intraoperative Record and orders documented therein, exceptions below
[2017-01-11 12:30] VITALS: BP 120/75; PULSE 71; TEMP 36.8; O2SAT 96
--- NOTE | 2017-01-11 12:53 | Discharge Instructions ---
Discharge Instructions Date of Service Jan 11, 2017. Admission Reason for Admission: UGIB Discharge Discharge Diagnosis / Problem: Upper gastrointestinal bleed Discharge Goals Goal(s): Improve disease control, Diagnostic testing Activity Recommendations Activity Limitations: resume your previous activity . Instructions / Follow-Up Instructions / Follow-Up Please follow up with Family Medicine Dr. Cr on January 16 at 2:00pm. Please follow up with Gastroenterology Dorina Lazar on January 18 at 1: 00pm. PLEASE DO NOT DRINK ALCOHOL. Current Hospital Diet Patient's current hospital diet: Clear Liquid Diet Discharge Diet Recommended Diet: Regular Diet Procedures Procedures Performed: Colonoscopy Esophagogastroduodenography Pending Studies Studies pending at discharge: no Medical Emergencies . Who to Call and When: Medical Emergencies: If at any time you feel your situation is an emergency, please call 911 immediately. . Non-Emergent Contact Non-Emergency issues call your: Primary Care Provider . . "Provider Documentation" section prepared by Cammy Mcmahon. VTE Core Measure Inpt VTE Proph given/why not?: SCD's
[2017-01-11] MEDS ORDERED: THM100 PO (12:57)
[2017-01-11] MEDS ORDERED: MULT-589 PO (12:57)
[2017-01-11] MEDS ORDERED: FLV1 PO (12:57)
[2017-01-11] MEDS ORDERED: PRT40 PO (12:57)
[2017-01-11] MEDS ORDERED: MGNO400 PO (12:57)
--- NOTE | 2017-01-11 13:25 | Anesthesiology Progress Note ---
Anesthesia Post Op Note Date & Time Jan 11, 2017 at 13:24 Vital Signs Pain Intensity: 0 Vital Signs Past 12 Hours Date Time Temp Pulse Resp B/P Pulse Ox O2 Delivery O2 Flow Rate FiO2 01/11/17 12:30 36.8 71 16 120/75 96 Room Air 01/11/17 10:38 68 18 113/66 96 Room Air 01/11/17 10:23 69 18 98/64 96 Room Air 01/11/17 10:08 89 18 98/56 96 Room Air 01/11/17 09:20 37.2 75 20 132/76 97 Room Air 01/11/17 08:00 96 Room Air 01/11/17 07:24 37.0 72 18 121/72 96 Room Air 01/11/17 05:19 64 01/11/17 04:03 37.1 64 18 125/70 98 Room Air 01/11/17 04:00 Room Air Notes Mental Status: alert / awake / arousable, participated in evaluation Pt Amnestic to Procedure: Yes Nausea / Vomiting: adequately controlled Pain: adequately controlled Airway Patency, RR, SpO2: stable & adequate BP & HR: stable & adequate Hydration State: stable & adequate Anesthetic Complications: no major complications apparent
[2017-01-11 14:01] VITALS: BP 120/75; PULSE 71; TEMP 36.8; O2SAT 96
[2017-01-11] MEDS: MULTIVITAMIN TAB PO SCH (14:25)
[2017-01-11] MEDS: THIAMINE HCL 100 MG TAB PO SCH (14:25)
[2017-01-11] MEDS: PANTOprazole SOD 40 MG TAB PO SCH (14:25)
--- NOTE | 2017-01-11 19:25 | Discharge Summary ---
Discharge Summary Date of Service Jan 11, 2017. Discharge Summary Admission Date: Jan 09, 2017 at 03:21 Discharge Date: Jan 11, 2017 Discharge Disposition: Home Principal Diagnosis: Upper GI bleed Procedures: EGD - Non-bleeding grade I esophageal varices. - Z-line regular, 38 cm from the incisors. - Gastritis. - Duodenitis. - Normal 2nd part of the duodenum and 3rd part of the duodenum. - No evidence of recent upper GI bleeding. - EGD in 1 year for surveillance of the varices. CT a/p 1. No bowel wall thickening or obstruction. 2. Normal appendix. 3. Cirrhotic liver with associated varices. 4. Mild bladder wall thickening which may be due to underdistention. 5. A 5 mm hypodense lesion within the right hepatic lobe. This is too small to characterize. 6. A 6 mm hypodense lesion within the pancreatic head. This favors a small side branch intraductal papillary mucinous neoplasm. Colonoscopy - Non-thrombosed external hemorrhoids found on digital rectal exam. - The examined portion of the ileum was normal. - Post-polypectomy scar at the hepatic flexure. - Mild diverticulosis in the sigmoid colon. - Internal hemorrhoids. - The examination was otherwise normal. Consultations: Gastroenterology Medication Reconciliation New Medications: Folic Acid (Folic Acid) 1 Mg Tab 1 MG PO QAM for 30 Days, #30 TAB Magnesium Oxide (Magnesium-Oxide) 400 Mg Tab 400 MG PO QAM for 30 Days, #30 TAB Multivitamins (Daily Sarai) 1 Tab Tab 1 TAB PO QAM for 30 Days, #30 TAB Pantoprazole (Pantoprazole Sodium) 40 Mg Tab 40 MG PO BID for 30 Days, #60 TAB Thiamine HCl (Vitamin B-1) 100 Mg Tab 100 MG PO QAM for 30 Days, #30 TAB Continued Medications: Albuterol Hfa (Ventolin Hfa) 200 Puffs/48204 Mcg Aers 2 PUFFS INH Q4H PRN for SOB/Wheezing, INHALER Admission Information HPI (per Admitting provider): Medical history significant for alcoholic cirrhosis, ongoing tobacco and alcohol abuse, COPD as per records, hypertension, paroxysmal AFib, chronic thrombocytopenia, history of esophageal varices, history of a PE off anticoag because of thrombocytopenia and GI bleed. Recent confinement September 2016 for chest pain. Yesterday patient was eating, he felt sick, subsequently had recurrent bilious emesis episodes later bloody, achy epigastric discomfort going to chest, achy, some shortness of breath. Patient subsequently noted dark stools. Denies bladder discomfort or burning. Patient brought to the Emergency Room. Physical Exam (per Admitting): VITAL SIGNS: Blood pressure noted to be 140/80, pulse rate 80, RR 21, temperature 36.8, sats 96 on room air. GENERAL: Noted to be uncomfortable, chronically ill. Dysphonic. no respiratory distress. tremulous SKIN: Normal color. HEENT: Foster palpebral conjunctivae. Dry mucosa. NECK: Short neck. LUNGS: Decreased breaths. Occasional wheeze. HEART: Regular rate and rhythm. ABDOMEN: Epigastric tenderness. EXTREMITIES: No edema. no tenderness NEUROLOGIC: No gross focality except for being tremulous. Hospital Course Patient is a 51 year old male with PMH of alcohol abuse, HTN, alcoholic liver cirrhosis, h/o PE off of anticoagulation who presented with upper GI bleed. GI was consulted. EGD was done and showed grade 1 esophageal varices. Hemoglobin remained stable and patient remained hemodynamically stable. Patient did not require any blood transfusions. Patient did not have any further episodes of hematemesis. Patient had been started on a pantoprazole drip, which was transitioned to PO BID prior to discharge. Colonoscopy was done to evaluate heme + stools, and showed mild diverticulosis of the sigmoid colon and internal/ external hemorrhoids. Patient was placed on a gabapentin protocol given his active alcohol use. Patient was started on folic acid, thiamine and MVI supplementation. Patient was thought to have a possible UTI on admission. Urinalysis was dirty, but had many epithelial cells. Urine culture grew 3 organisms, likely skin beatriz. Patient had been started on ceftriaxone, which was discontinued. Patient deemed stable for discharge with Family Medicine and GI follow up. PE on discharge: General- awake; alert; NAD Eyes- EOMI; no scleral icterus Neck- no stridor; trachea midline Lungs- CTA bilaterally; no wheezes/crackles Heart- RRR; no m/r/g Abdomen- soft; NTND; nBS Back- no gross abnormalities Extremities- no c/c/e; no deformity Neuro- no focal deficits Skin- no appreciable rash or bruise . Total time spent on discharge = This includes examination of the patient, discharge planning, medication reconciliation, and communication with other providers. Discharge Instructions Discharge Instructions Date of Service Jan 11, 2017. Admission Reason for Admission: UGIB Discharge Discharge Diagnosis / Problem: Upper gastrointestinal bleed Discharge Goals Goal(s): Improve disease control, Diagnostic testing Activity Recommendations Activity Limitations: resume your previous activity . Instructions / Follow-Up Instructions / Follow-Up Please follow up with Family Medicine Dr. Cr on January 16 at 2:00pm. Please follow up with Gastroenterology Dorina Lazar on January 18 at 1: 00pm. PLEASE DO NOT DRINK ALCOHOL. Current Hospital Diet Patient's current hospital diet: Clear Liquid Diet Discharge Diet Recommended Diet: Regular Diet Procedures Procedures Performed: Colonoscopy Esophagogastroduodenography Pending Studies Studies pending at discharge: no Medical Emergencies . Who to Call and When: Medical Emergencies: If at any time you feel your situation is an emergency, please call 911 immediately. . Non-Emergent Contact Non-Emergency issues call your: Primary Care Provider . . "Provider Documentation" section prepared by Cammy Mcmahon. VTE Core Measure Inpt VTE Proph given/why not?: SCD's Additional Copies To Darrius Cr M.D. (MEDICAL)
[2017-01-12] MEDS ORDERED: GABAPENTIN 600 MG TAB PO SCH (16:00)
[2017-02-06] MEDS ORDERED: NRN600 PO (12:24)
[2017-02-06] MEDS ORDERED: THM100 PO (12:24)
[2017-02-06] MEDS ORDERED: FLV1 PO (12:24)
[2017-02-06] MEDS ORDERED: MULTTAB58 PO (12:24)
[2017-07-10] MEDS ORDERED: SALI0.6510 (16:02)
[2017-07-10] MEDS ORDERED: BCTRO (16:02)
[2017-07-13] MEDS ORDERED: TRAZ1TAB52 PO (20:24)
== END 2017-01-11 14:56 | disposition home or self-care (01) | DRG 394 ==
LOC: ENRESERVTM → ENRESERVDT → C.EDB 21:00 → C.EDINP 01-09 03:21 → C.MED 01-09 05:36
PROVIDERS: ADMIT Internal Medicine; ATTEND Internal Medicine
PROC: 0DJ08ZZ Inspection of Upper Intestinal Tract, Via Natural or Artificial Opening Endoscopic (ICD-10-PCS; principal; 2017-01-09 11:32)
PROC: 0DJD8ZZ Inspection of Lower Intestinal Tract, Via Natural or Artificial Opening Endoscopic (ICD-10-PCS; 2017-01-11)
DX: I85.10 Secondary esophageal varices without bleeding (principal); K92.0 Hematemesis; K92.1 Melena; K29.70 Gastritis, unspecified, without bleeding; K29.80 Duodenitis without bleeding; R19.7 Diarrhea, unspecified; K70.30 Alcoholic cirrhosis of liver without ascites; K64.8 Other hemorrhoids; K57.30 Diverticulosis of large intestine without perforation or abscess without bleeding; T14.90 Injury, unspecified; Y84.8 Other medical procedures as the cause of abnormal reaction of the patient, or of later complication, without mention of misadventure at the time of the procedure; Y73.0 Diagnostic and monitoring gastroenterology and urology devices associated with adverse incidents; Y92.234 Operating room of hospital as the place of occurrence of the external cause; J44.9 Chronic obstructive pulmonary disease, unspecified; I48.0 Paroxysmal atrial fibrillation; D69.6 Thrombocytopenia, unspecified; I10 Essential (primary) hypertension; F10.10 Alcohol abuse, uncomplicated; F17.200 Nicotine dependence, unspecified, uncomplicated; Z86.711 Personal history of pulmonary embolism; Z79.899 Other long term (current) drug therapy

== ENCOUNTER 2017-02-04 17:10 | Inpatient (IN) | payer OTHER ==
[~2017-02-04] VITALS: Ht 170.2 cm; Wt 69.0 kg
[~2017-02-04 17:10] MED LIST changes: +FLV1 PO; +MGNO400 PO; +MULT-589 PO; +PRT40 PO; +THM100 PO
[2017-02-04] MEDS ORDERED: MULTI-VITAMIN INFUSION INJ 10 ML, THIAMINE HCL INJ 100 MG, FoLIC ACID INJ 1 MG in SODIU... IV ONE (17:30)
[2017-02-04 17:44] LABS: BASO % 0.8 %; BASO ABS # 0.07 K/uL (0-0.2); COMPLETE YES; EOS % 3.5 %; HEMATOCRIT 45.4 % (42-52); IG% 0.1 %; LYMPH % 45.4 %; LYMPH ABS # 3.93 K/uL (1.2-3.4); MEAN CELL VOLUME 98.3 fL (80-100); MEAN CORPUSCULAR HEMOGLOBIN 34.6 pg (25-34); MEAN CORPUSCULAR HGB CONC 35.2 g/dl (32-36); MEAN PLATELET VOLUME 11.2 fL (7.4-10.4); MONO % 10.2 %; PLATELET COUNT 133 K/uL (130-400); RED BLOOD COUNT 4.62 M/uL (4.7-6.1); WHITE BLOOD COUNT 8.65 K/uL (4.8-10.8)
--- NOTE | 2017-02-04 17:53 | DIAGNOSTIC IMAGING REPORT ---
CHEST ONE VIEW PORTABLE CLINICAL HISTORY: Mood disorder. COMPARISON STUDY: Chest radiograph and chest CT December 12, 2016. FINDINGS: There is no pneumothorax or pleural effusion. Lungs are clear. Cardiac size is normal. Mediastinal contours are normal. Pulmonary vascularity is normal. IMPRESSION: No acute cardiopulmonary findings. Electronically signed by: Chuy Rodríguez M.D. 02/04/2017 5:52 PM Dictated Date/Time: 02/04/2017 5:51 PM
--- NOTE | 2017-02-04 17:57 | DIAGNOSTIC IMAGING REPORT ---
CT OF THE HEAD WITHOUT CONTRAST CLINICAL HISTORY: EVALUATE FOR PSYCH CLEARANCE. Alcohol overdose. COMPARISON STUDY: Head CT November 12, 2016. CT DOSE: 601.98 mGy.cm TECHNIQUE: Helical axial images of the head were obtained without IV contrast. Automated exposure control was utilized for the study. FINDINGS: This exam was mildly compromised due to difficulty with positioning. No acute intracranial hemorrhage, midline shift or mass effect is present. Ventricular system is normal. Basilar cisterns are patent. There are no extra-axial collections. Moderate white matter hypodensities are unchanged and suggest small vessel disease. There are no findings to suggest acute dural sinus thrombosis or acute territorial infarct. There is no calvarial fracture. Visualized portions of the sinuses and mastoid air cells are clear. IMPRESSION: No acute intracranial findings. Electronically signed by: Chuy Rodríguez M.D. 02/04/2017 5:56 PM Dictated Date/Time: 02/04/2017 5:53 PM
[2017-02-04 18:05] LABS: ALT/SGPT 33 U/L (12-78); AST/SGOT 73 U/L (15-37); BLOOD UREA NITROGEN 4 mg/dl (7-18); BUN/CREATININE RATIO 4.8 (10-20); CALCIUM 8.2 mg/dl (8.5-10.1); CARBON DIOXIDE 25 mmol/L (21-32); CHLORIDE 108 mmol/L (98-107); CREATININE 0.74 mg/dl (0.60-1.40); GLUCOSE 84 mg/dl (70-99); MAGNESIUM 1.9 mg/dl (1.8-2.4); POTASSIUM 3.7 mmol/L (3.5-5.1); SODIUM 143 mmol/L (136-145)
[2017-02-04 18:16] LABS: ALKALINE PHOSPHATASE 117 U/L (45-117); CKMB/CK RATIO 0.9 (0-3.0)
[2017-02-04 18:35] LABS: URINE APPEARANCE CLEAR (CLEAR); URINE BILIRUBIN NEG (NEG); URINE COLOR YELLOW; URINE NITRITE NEG (NEG); URINE SPECIFIC GRAVITY 1.004 (1.000-1.030); UROBILINOGEN NEG (NEG)
[2017-02-04 18:36] LABS: MANUAL MICROSCOPIC REQUIRED? NO; REVIEW REQ? NO
[2017-02-04 19:01] LABS: BENZODIAZEPINE, URINE NEG (NEG); COCAINE,URINE NEG (NEG); PHENCYCLIDINE, URINE NEG (NEG)
[2017-02-04] MEDS ORDERED: DIPH25CA5 PO (21:04)
[2017-02-04] MEDS ORDERED: SODIUM CHLORIDE 0.9% 1000ML 1,000 ML IV STA (21:04)
--- NOTE | 2017-02-04 21:34 | History and Physical ---
History & Physical Date & Time of Service: Feb 04, 2017 at 21:33 Chief Complaint: Alcohol Overdose Primary Care Physician: Darrius Cr M.D. (MEDICAL) History of Present Illness Source: patient Patient is 51 yr old male with PMH of alcohol abuse disorder, Tobacco use, COPD , P,afib, Hypothyroidism, H/O PE, chronic pancreatitis, Insomnia and other problems presents with altered mental status secondary to alcohol intoxication. Poor historian secondary to intoxication. Patient was found in the middle of the [place] near [place]. Admits to having multiple alcoholic drinks and is interested to go to rehab facility. Patient states he fell yesterday secondary to alcohol use and complains of occipital headache. CT head showed no acute pathology. Denies any history of chest pain, SOB, dizziness, nausea, vomiting, abd pain, fever, chills. Reports chronic dry cough and wheezing secondary to COPD. Also states having left sided rib pain secondary to rib fracture recently. Reports an episode of diarrhea and thinks he noticed some blood in stools. Offers no other relevant history. Past Medical/Surgical History Medical Problems: (1) Alcohol dependence Status: Chronic (2) Alcoholic cirrhosis of liver without ascites Status: Chronic (3) Asthma, mild persistent Status: Chronic (4) Chronic anxiety Status: Chronic (5) Chronic pancreatitis Status: Chronic (6) COPD, mild Status: Chronic (7) Esophageal varices Status: Chronic (8) Hepatic encephalopathy Status: Chronic (9) Hypothyroidism Status: Chronic (10) Insomnia Status: Chronic (11) Paroxysmal atrial fibrillation Status: Chronic (12) Portal vein thrombosis Status: Chronic (13) Pulmonary HTN Status: Chronic (14) Thrombocytopenia Status: Chronic (15) Tobacco abuse Status: Chronic Surgical Problems: (1) H/O colonoscopy Status: Chronic (2) History of cholecystectomy Permanent Comment: 2009 Status: Resolved (3) History of esophagogastroduodenoscopy (EGD) Permanent Comment: 12/15/2014- Small varices. Erosive duodenitis. Status: Chronic Family History Blood clots Diabetes mellitus MOTHER FH: CAD (coronary artery disease) FATHER BROTHER FH: leukemia AUNT Hypertension Reviewed. Social History Smoking Status: Current Every Day Smoker Alcohol Use: heavy Drug Use: none Marital Status: single Occupational Status: unemployed Immunizations History of Influenza Vaccine: Yes History of Tetanus Vaccine?: Yes History of Pneumococcal: Unknown Pneumococcal Date: February 21, 2010 History of Hepatitis B Vaccine: Unknown Hepatitis Immunization Date: Oct 12, 2009 Multi-Drug Resistant Organisms History of MDRO: No Allergies Coded Allergies: Fentanyl (Verified Allergy, Intermediate, RASH ALL OVER BODY, 02/04/17) ALL OVER BODY Home Medications Scheduled PRN Albuterol Hfa (Ventolin Hfa), 2 PUFFS INH Q4H PRN for SOB/Wheezing Diphenhydramine Hcl (Benadryl), Unknown Dose PO HS PRN for Sleep Review of Systems See HPI for pertinent positives & negatives. A total of 10 systems reviewed and were otherwise negative. Physical Exam Vital Signs Date Time Temp Pulse Resp B/P Pulse Ox O2 Delivery O2 Flow Rate FiO2 02/04/17 21:10 83 20 91/58 93 Room Air 02/04/17 20:17 89 16 99/51 92 Room Air 02/04/17 19:05 84 16 95/58 94 Room Air 02/04/17 18:36 84 20 85/48 93 02/04/17 17:27 87 02/04/17 17:15 36.0 90 16 119/77 97 Room Air General Appearance: WD/WN, no apparent distress Head: normocephalic, atraumatic Eyes: normal inspection, PERRL ENT: normal ENT inspection, hearing grossly normal Neck: supple, trachea midline Respiratory/Chest: lungs clear, normal breath sounds, no respiratory distress, no accessory muscle use, + pertinent finding (Left rib tenderness) Cardiovascular: regular rate, rhythm, no edema, no murmur Abdomen/GI: normal bowel sounds, non tender, soft Back: normal inspection Extremities/Musculoskelatal: normal inspection, no pedal edema 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, no motor/sensory deficits, alert, normal mood/affect, oriented x 3 Skin: normal color, warm/dry Diagnostics Laboratory Results Results Past 24 Hours Test 02/04/17 12:25 02/04/17 17:25 02/04/17 17:40 Range/Units White Blood Count 8.65 4.8-10.8 K/uL Red Blood Count 4.62 4.7-6.1 M/uL Hemoglobin 16.0 14.0-18.0 g/dL Hematocrit 45.4 42-52 % Mean Corpuscular Volume 98.3 80-100 fL Mean Corpuscular Hemoglobin 34.6 25-34 pg Mean Corpuscular Hemoglobin Concent 35.2 32-36 g/dl Platelet Count 133 130-400 K/uL Mean Platelet Volume 11.2 7.4-10.4 fL Neutrophils (%) (Auto) 40.0 % Lymphocytes (%) (Auto) 45.4 % Monocytes (%) (Auto) 10.2 % Eosinophils (%) (Auto) 3.5 % Basophils (%) (Auto) 0.8 % Neutrophils # (Auto) 3.46 1.4-6.5 K/uL Lymphocytes # (Auto) 3.93 1.2-3.4 K/uL Monocytes # (Auto) 0.88 0.11-0.59 K/uL Eosinophils # (Auto) 0.30 0-0.5 K/uL Basophils # (Auto) 0.07 0-0.2 K/uL RDW Standard Deviation 47.3 36.4-46.3 fL RDW Coefficient of Variation 13.2 11.5-14.5 % Immature Granulocyte % (Auto) 0.1 % Immature Granulocyte # (Auto) 0.01 0.00-0.02 K/uL Sodium Level 143 136-145 mmol/L Potassium Level 3.7 3.5-5.1 mmol/L Chloride Level 108 98-107 mmol/L Carbon Dioxide Level 25 21-32 mmol/L Anion Gap 10.0 3-11 mmol/L Blood Urea Nitrogen 4 7-18 mg/dl Creatinine 0.74 0.60-1.40 mg/dl Est Creatinine Clear Calc Drug Dose 109.2 ml/min Estimated GFR () 122.9 Estimated GFR (Non- 106.1 BUN/Creatinine Ratio 4.8 10-20 Random Glucose 84 70-99 mg/dl Calcium Level 8.2 8.5-10.1 mg/dl Magnesium Level 1.9 1.8-2.4 mg/dl Total Bilirubin 0.9 0.2-1 mg/dl Direct Bilirubin 0.3 0-0.2 mg/dl Aspartate Amino Transf (AST/SGOT) 73 15-37 U/L Alanine Aminotransferase (ALT/SGPT) 33 12-78 U/L Alkaline Phosphatase 117 45-117 U/L Total Creatine Kinase 141 39-308 U/L Creatine Kinase MB 1.3 0.5-3.6 ng/ml Creatine Kinase MB Ratio 0.9 0-3.0 Troponin I < 0.015 0-0.045 ng/ml Total Protein 7.0 6.4-8.2 gm/dl Albumin 2.8 3.4-5.0 gm/dl Thyroid Stimulating Hormone (TSH) 4.650 0.300-4.500 uIu/ml Ethyl Alcohol mg/dL 337.0 0-3 mg/dl Urine Color YELLOW Urine Appearance CLEAR CLEAR Urine pH 6.0 4.5-7.5 Urine Specific [place] 1.004 1.000-1.030 Urine Protein NEG NEG Urine Glucose (UA) NEG NEG Urine Ketones NEG NEG Urine Occult Blood NEG NEG Urine Nitrite NEG NEG Urine Bilirubin NEG NEG Urine Urobilinogen NEG NEG Urine Leukocyte Esterase NEG NEG Urine Opiates Screen NEG NEG Urine Methadone, Qualitative NEG NEG Urine Barbiturates NEG NEG Urine Phencyclidine (PCP) Level NEG NEG Ur Amphetamine/Methamphetamine NEG NEG MDMA (Ecstasy) Screen NEG NEG Urine Benzodiazepines Screen NEG NEG Urine Cocaine Metabolite NEG NEG Urine Marijuana (THC) NEG NEG Diagnostic Radiology CT Head: No acute intracranial findings. CXR: No acute cardiopulmonary findings EKG EKG: NSR. 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
[2017-02-04 21:40] VITALS: BP 91/58; PULSE 87; TEMP 36; O2SAT 93; Ht 170.2 cm; Wt 69.0 kg
[2017-02-04] MEDS ORDERED: ONDANSETRON INJ 2 MG/ML 2 ML VIAL IV PRN (21:45)
[2017-02-04] MEDS ORDERED: OXYCODONE HCL IR 5 MG TAB (IMMEDIATE RELEASE) PO PRN (22:00)
[2017-02-04] MEDS ORDERED: MoRPHine SULFATE 2 MG/ML CARP IV PRN (22:00)
[2017-02-04] MEDS ORDERED: ALBUT/IPRATROP 3MG/0.5MG NEB 3 ML VIAL INH PRN (22:00)
[2017-02-04] MEDS ORDERED: GABAPENTIN 600 MG TAB PO SCH (22:00)
[2017-02-04 22:15] VITALS: BP 122/76; PULSE 78; TEMP 36.9; O2SAT 97
--- NOTE | 2017-02-04 22:57 | EMERGENCY ROOM VISIT NOTE ---
History Report prepared by López: Phillip Shah Under the Supervision of: Dr. Sanket Reyes M.D. First contact with patient: 17:15 Chief Complaint: ALCOHOL OVERDOSE Stated Complaint: ALCOHOL OVERDOSE Nursing Triage Summary: was picked up on the street with PD by EMS stated he drank "4 32 ounce beers" History of Present Illness The patient is a 51 year old male who presents to the Emergency Room due to alcohol intoxication. The patient was found in the middle of the street near [place] shortly prior to arrival. The patient sates that he drank 4 32-oz bottles of Sesay Lite and 2 16-oz cans of Carole Lite. He denies drinking any hard Liquor. He currently complains of chest pains and numbness in his right leg. He also claims that he had diarrhea this morning and noticed blood in his stool. 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 A total of ten systems were reviewed and were otherwise negative. Past Medical & Surgical Medical Problems: (1) Alcohol dependence (2) Alcohol intoxication (3) Alcoholic cirrhosis of liver without ascites (4) Asthma, mild persistent (5) Chest pain (6) Chronic anxiety (7) Chronic pancreatitis (8) COPD, mild (9) Esophageal varices (10) Hepatic encephalopathy (11) Hypotension (12) Hypothyroidism (13) Insomnia (14) Paroxysmal atrial fibrillation (15) Portal vein thrombosis (16) Pulmonary HTN (17) Rapid atrial fibrillation (18) Thrombocytopenia (19) Tobacco abuse (20) UGIB (upper gastrointestinal bleed) Surgical Problems: (1) H/O colonoscopy (2) History of cholecystectomy (3) History of esophagogastroduodenoscopy (EGD) Family History Blood clots Diabetes mellitus MOTHER FH: CAD (coronary artery disease) FATHER BROTHER FH: leukemia AUNT Hypertension Social History Smoking Status: Current Every Day Smoker Alcohol Use: heavy Drug Use: none Marital Status: single Housing Status: lives with family Occupation Status: unemployed Current/Historical Medications Scheduled PRN Albuterol Hfa (Ventolin Hfa), 2 PUFFS INH Q4H PRN for SOB/Wheezing Diphenhydramine Hcl (Benadryl), Unknown Dose PO HS PRN for Sleep Allergies Coded Allergies: Fentanyl (Verified Allergy, Intermediate, RASH ALL OVER BODY, 02/04/17) ALL OVER BODY Physical Exam Vital Signs Date Time Temp Pulse Resp B/P Pulse Ox O2 Delivery O2 Flow Rate FiO2 02/04/17 21:40 36.0 87 20 91/58 93 Room Air 02/04/17 21:10 83 20 91/58 93 Room Air 02/04/17 20:17 89 16 99/51 92 Room Air 02/04/17 19:05 84 16 95/58 94 Room Air 02/04/17 18:36 84 20 85/48 93 02/04/17 17:27 87 02/04/17 17:15 36.0 90 16 119/77 97 Room Air Physical Exam GENERAL: Intoxicated, well appearing, no distress HENT: Normocephalic, atraumatic. Oropharynx unremarkable. EYES: PERRL. Erythematous conjunctiva. Sclera non-icteric. NECK: Supple. No nuchal rigidity. FROM. RESPIRATORY: CTA CARDIAC: RRR GI/ABDOMEN: Soft, non distended. No tenderness to palpation. No rebound or guarding. No masses. RECTAL: Deferred. MUSCULOSKELETAL: No edema. No discoloration. Gross motor strength 5/5 bilaterally. NEURO: Altered sensorium. No sensory or motor deficits noted. Speech slurred. SKIN: No rash or jaundice noted. LYMPH: No adenopathy. Medical Decision & Procedures ER Provider Diagnostic Interpretation: Radiology results as stated below per my review and radiologist interpretation: CHEST ONE VIEW PORTABLE CLINICAL HISTORY: Mood disorder. COMPARISON STUDY: Chest radiograph and chest CT December 12, 2016. FINDINGS: There is no pneumothorax or pleural effusion. Lungs are clear. Cardiac size is normal. Mediastinal contours are normal. Pulmonary vascularity is normal. IMPRESSION: No acute cardiopulmonary findings. Electronically signed by: Chuy Rodríguez M.D. 02/04/2017 5:52 PM Dictated Date/Time: 02/04/2017 5:[address] OF THE HEAD WITHOUT CONTRAST CLINICAL HISTORY: EVALUATE FOR PSYCH CLEARANCE. Alcohol overdose. COMPARISON STUDY: Head CT November 12, 2016. CT DOSE: 601.98 mGy.cm TECHNIQUE: Helical axial images of the head were obtained without IV contrast. Automated exposure control was utilized for the study. FINDINGS: This exam was mildly compromised due to difficulty with positioning. No acute intracranial hemorrhage, midline shift or mass effect is present. Ventricular system is normal. Basilar cisterns are patent. There are no extra-axial collections. Moderate white matter hypodensities are unchanged and suggest small vessel disease. There are no findings to suggest acute dural sinus thrombosis or acute territorial infarct. There is no calvarial fracture. Visualized portions of the sinuses and mastoid air cells are clear. IMPRESSION: No acute intracranial findings. Electronically signed by: Chuy Rodríguez M.D. 02/04/2017 5:56 PM Dictated Date/Time: 02/04/2017 5:53 PM Laboratory Results 02/04/17 12:25 Red Blood Count 4.62, Mean Corpuscular Volume 98.3, Mean Corpuscular Hemoglobin 34.6, Mean Corpuscular Hemoglobin Concent 35.2, Mean Platelet Volume 11.2, Neutrophils (%) (Auto) 40.0, Lymphocytes (%) (Auto) 45.4, Monocytes (%) (Auto) 10.2, Eosinophils (%) (Auto) 3.5, Basophils (%) (Auto) 0.8, Neutrophils # (Auto ) 3.46, Lymphocytes # (Auto) 3.93, Monocytes # (Auto) 0.88, Eosinophils # (Auto ) 0.30, Basophils # (Auto) 0.07 02/04/17 12:25 Test 02/04/17 12:25 02/04/17 17:25 02/04/17 17:40 White Blood Count 8.65 K/uL (4.8-10.8) Red Blood Count 4.62 M/uL (4.7-6.1) Hemoglobin 16.0 g/dL (14.0-18.0) Hematocrit 45.4 % (42-52) Mean Corpuscular Volume 98.3 fL (80-100) Mean Corpuscular Hemoglobin 34.6 pg (25-34) Mean Corpuscular Hemoglobin Concent 35.2 g/dl (32-36) Platelet Count 133 K/uL (130-400) Mean Platelet Volume 11.2 fL (7.4-10.4) Neutrophils (%) (Auto) 40.0 % Lymphocytes (%) (Auto) 45.4 % Monocytes (%) (Auto) 10.2 % Eosinophils (%) (Auto) 3.5 % Basophils (%) (Auto) 0.8 % Neutrophils # (Auto) 3.46 K/uL (1.4-6.5) Lymphocytes # (Auto) 3.93 K/uL (1.2-3.4) Monocytes # (Auto) 0.88 K/uL (0.11-0.59) Eosinophils # (Auto) 0.30 K/uL (0-0.5) Basophils # (Auto) 0.07 K/uL (0-0.2) RDW Standard Deviation 47.3 fL (36.4-46.3) RDW Coefficient of Variation 13.2 % (11.5-14.5) Immature Granulocyte % (Auto) 0.1 % Immature Granulocyte # (Auto) 0.01 K/uL (0.00-0.02) Anion Gap 10.0 mmol/L (3-11) Est Creatinine Clear Calc Drug Dose 109.2 ml/min Estimated GFR () 122.9 Estimated GFR (Non- 106.1 BUN/Creatinine Ratio 4.8 (10-20) Calcium Level 8.2 mg/dl (8.5-10.1) Magnesium Level 1.9 mg/dl (1.8-2.4) Total Bilirubin 0.9 mg/dl (0.2-1) Direct Bilirubin 0.3 mg/dl (0-0.2) Aspartate Amino Transf (AST/SGOT) 73 U/L (15-37) Alanine Aminotransferase (ALT/SGPT) 33 U/L (12-78) Alkaline Phosphatase 117 U/L (45-117) Total Creatine Kinase 141 U/L (39-308) Creatine Kinase MB 1.3 ng/ml (0.5-3.6) Creatine Kinase MB Ratio 0.9 (0-3.0) Troponin I < 0.015 ng/ml (0-0.045) Total Protein 7.0 gm/dl (6.4-8.2) Albumin 2.8 gm/dl (3.4-5.0) Thyroid Stimulating Hormone (TSH) 4.650 uIu/ml (0.300-4.500) Ethyl Alcohol mg/dL 337.0 mg/dl (0-3) Urine Color YELLOW Urine Appearance CLEAR (CLEAR) Urine pH 6.0 (4.5-7.5) Urine Specific [place] 1.004 (1.000-1.030) Urine Protein NEG (NEG) Urine Glucose (UA) NEG (NEG) Urine Ketones NEG (NEG) Urine Occult Blood NEG (NEG) Urine Nitrite NEG (NEG) Urine Bilirubin NEG (NEG) Urine Urobilinogen NEG (NEG) Urine Leukocyte Esterase NEG (NEG) Urine Opiates Screen NEG (NEG) Urine Methadone, Qualitative NEG (NEG) Urine Barbiturates NEG (NEG) Urine Phencyclidine (PCP) Level NEG (NEG) Ur Amphetamine/Methamphetamine NEG (NEG) MDMA (Ecstasy) Screen NEG (NEG) Urine Benzodiazepines Screen NEG (NEG) Urine Cocaine Metabolite NEG (NEG) Urine Marijuana (THC) NEG (NEG) Laboratory results reviewed by me Medications Administered Medications (Trade) Dose Ordered Sig/Justin Route Start Time Stop Time Status Last Admin Dose Admin Multivitamins 10 ml/Thiamine HCl 100 mg/Folic Acid 1 mg/Sodium Chloride 1,011.2 ml @ 500 mls/ hr Q2H2M ONCE IV 02/04/17 17:30 02/04/17 19:31 DC 02/04/17 18:53 500 MLS/HR Sodium Chloride (Nss 1000ml) 1,000 ml @ 999 mls/hr Q1H1M STAT IV 02/04/17 21:04 02/04/17 22:04 DC 02/04/17 21:48 999 MLS/HR ECG Indication: toxicologic Rate (beats per minute): 92 Findings: no acute ischemic change, no ectopy ED Course 171: The patient was evaluated in room A2. A complete history and physical exam was performed. 0: Ordered Multivitamins 1011.2 mL IV. 2103: Ordered Sodium Chloride 1000 mL @ 999 mL/hr IV. 2131: I discussed the case with Dr. Cagle [facility] Hospitalist, he will evaluate the patient for further treatment. 2144: Ordered Lovenox 40 mg SQ. 2199: Ordered Duoneb 3 mL INH, Oxycodone HCl 5 mg PO. Medical Decision Triage Nursing notes reviewed. The patient's presentation and history were concerning for alcohol intoxication as well as a fall, and head injury. Etiologies such as toxicologic,intracranial bleed, metabolic, infection, hypo/ hyperglycemia, electrolyte abnormalities, cardiac sources, intracerebral event, neurologic, as well as others were entertained. The patient was evaluated. He was intoxicated. ECG was performed and was negative for acute ischemic change. Chest x-ray head CT were unremarkable. The patient had a negative CBC, chemistry panel, urinalysis, drug screen, and TSH. His LFTs were mildly elevated with AST twice the ALT. cardiac markers negative. The patient's alcohol level is markedly elevated at 337 mg/dL. On reassessment the patient was still intoxicated. He was hydrated with normal saline and also given a banana bag. The patient was also requesting rehabilitation services. Given the level of his intoxication he will need to be reevaluated medically in the morning before Case management can evaluate him. His alcohol intoxication is clouding the picture. Consultation was made with internal medicine. The patient was informed. He was in agreement. The chart was completed utilizing [employer] Speech voice recognition software. Grammatical errors, random word insertions, pronoun errors, and incomplete sentences are an occasional consequence of this system due to software limitations, ambient noise, and hardware issues. Any formal questions or concerns about the content, text, or information contained within the body of this dictation should be directly addressed to the physician for clarification. Consults Time Called: 2124 Consulting Physician[facility] Returned Call: 2131 I discussed the case with Dr. Tsering Tian, he will evaluate the patient for further treatment. Impression Primary Impression: Alcohol intoxication Scribe Attestation The scribe's documentation has been prepared under my direction and personally reviewed by me in its entirety. I confirm that the note above accurately reflects all work, treatment, procedures, and medical decision making performed by me. Departure Information Dispostion Being Evaluated By Hospitalist Referrals Darrius Cr M.D. (MEDICAL) (PCP) Patient Instructions My [facility]
[2017-02-04] MEDS ORDERED: GABAPENTIN 1200MG LOADING DOSE PO ONE (23:00)
[2017-02-04] MEDS: SODIUM CHLORIDE 0.9% 1000ML 1,000 ML IV SCH (23:04)
[2017-02-05] VITALS: O2SAT 97
[2017-02-05] MEDS: GABAPENTIN 600MG Q6H DOSE PO SCH ×2 (05:37→12:00)
[2017-02-05 07:20] VITALS: BP 117/75; PULSE 81; TEMP 36.9; O2SAT 94
[2017-02-05 07:37] LABS: MEAN CELL VOLUME 100.9 fL (80-100); MEAN CORPUSCULAR HEMOGLOBIN 35.3 pg (25-34); MEAN PLATELET VOLUME 11.5 fL (7.4-10.4); PLATELET COUNT 110 K/uL (130-400); RED BLOOD COUNT 4.36 M/uL (4.7-6.1); WHITE BLOOD COUNT 5.67 K/uL (4.8-10.8)
[2017-02-05 08:10] LABS: BUN/CREATININE RATIO 4.5 (10-20); CALCIUM 7.9 mg/dl (8.5-10.1); CREATININE 0.73 mg/dl (0.60-1.40); POTASSIUM 3.9 mmol/L (3.5-5.1)
[2017-02-05 08:13] LABS: ALB/GLOB RATIO 0.6 (0.9-2)
[2017-02-05] MEDS: ENOXAPARIN 40 MG/0.4 ML SYR SQ SCH (08:43)
[2017-02-05] MEDS: SODIUM CHLORIDE 0.9% 1000ML 1,000 ML IV SCH (08:44)
[2017-02-05] MEDS: THIAMINE HCL 100 MG TAB PO SCH (08:44)
[2017-02-05] MEDS: NICOTINE 14 MG/24 HR TDSY TD SCH (08:45)
[2017-02-05] MEDS ORDERED: NURSING VERBAL MED ORDER ONE (14:45)
[2017-02-05 14:50] VITALS: BP 151/90; PULSE 76; TEMP 36.9; O2SAT 97
[2017-02-05] MEDS: LORAZEPAM 1 MG TAB PO PRN ×2 (14:52→17:42)
--- NOTE | 2017-02-05 17:58 | Progress Note ---
Internal Med Progress Note Date of Service: February 05, 2017. Provider Documentation: SUBJECTIVE: sitting on the bed somewhat restless says he will be jailed next time for his public drunkenness but doesn't want to go to rehab denies any pain eating ok afebrile OBJECTIVE: Vital Signs-as noted below Exam: General-Alert and awake and oriented ENT-normal hearing Neck-no neck masses Lungs-cta b/l no wheezing or crackles Heart-s1 and s2 heard regular rate and rhythm no murmurs Abdomen-soft bowel sounds no tenderness no distension Extremities-no edema no erythema Neuro-Alert and awake moves extremities Lab data as noted below. ASSESSMENT & PLAN: Altered Mental Status Alcohol Intoxication CT head: No acute pathology Alcohol levels:337 on presentation Tox Screen: Negative currently at baseline. 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 Compliance will monitor Hypothyroidism: TSH:4.6 free T4 WNL f/u labs with pcp Tobacco use disorder Nicotine patch tobacco cessation counselling COPD: stable Duonebs PRN DVT Px: Lovenox SQ Code Status: Full code DISPOSITION to be determined social service for d/c planning Vital Signs: Date Time Temp Pulse Resp B/P Pulse Ox O2 Delivery O2 Flow Rate FiO2 02/05/17 16:00 Room Air 02/05/17 14:50 36.9 76 20 151/90 97 Room Air 02/05/17 08:00 Room Air 02/05/17 07:20 36.9 81 20 117/75 94 Room Air 02/05/17 00:00 97 Room Air 02/04/17 22:15 36.9 78 18 122/76 97 Room Air 02/04/17 22:07 88 20 107/73 94 02/04/17 21:40 36.0 87 20 91/58 93 Room Air 02/04/17 21:10 83 20 91/58 93 Room Air 02/04/17 20:17 89 16 99/51 92 Room Air 02/04/17 19:05 84 16 95/58 94 Room Air 02/04/17 18:36 84 20 85/48 93 Lab Results: Results Past 24 Hours Test 02/05/17 07:19 Range/Units White Blood Count 5.67 4.8-10.8 K/uL Red Blood Count 4.36 4.7-6.1 M/uL Hemoglobin 15.4 14.0-18.0 g/dL Hematocrit 44.0 42-52 % Mean Corpuscular Volume 100.9 80-100 fL Mean Corpuscular Hemoglobin 35.3 25-34 pg Mean Corpuscular Hemoglobin Concent 35.0 32-36 g/dl RDW Standard Deviation 50.1 36.4-46.3 fL RDW Coefficient of Variation 13.4 11.5-14.5 % Platelet Count 110 130-400 K/uL Mean Platelet Volume 11.5 7.4-10.4 fL Sodium Level 148 136-145 mmol/L Potassium Level 3.9 3.5-5.1 mmol/L Chloride Level 113 98-107 mmol/L Carbon Dioxide Level 29 21-32 mmol/L Anion Gap 6.0 3-11 mmol/L Blood Urea Nitrogen 3 7-18 mg/dl Creatinine 0.73 0.60-1.40 mg/dl Est Creatinine Clear Calc Drug Dose 110.7 ml/min Estimated GFR () 123.6 Estimated GFR (Non- 106.6 BUN/Creatinine Ratio 4.5 10-20 Random Glucose 80 70-99 mg/dl Calcium Level 7.9 8.5-10.1 mg/dl Total Bilirubin 1.3 0.2-1 mg/dl Aspartate Amino Transf (AST/SGOT) 63 15-37 U/L Alanine Aminotransferase (ALT/SGPT) 28 12-78 U/L Alkaline Phosphatase 102 45-117 U/L Total Protein 5.9 6.4-8.2 gm/dl Albumin 2.3 3.4-5.0 gm/dl Globulin 3.6 2.5-4.0 gm/dl Albumin/Globulin Ratio 0.6 0.9-2 Free Thyroxine 0.90 0.80-1.60 ng/dl
[2017-02-05 20:10] VITALS: BP 147/92; PULSE 83; TEMP 36.9; O2SAT 95
[2017-02-05] MEDS: GABAPENTIN 600MG Q8H DOSE PO SCH (21:53)
[2017-02-05 23:30] VITALS: O2SAT 95
[2017-02-05 23:37] VITALS: BP 131/81; PULSE 84; TEMP 36.8; O2SAT 95
[2017-02-06 04:02] VITALS: O2SAT 95
[2017-02-06] MEDS: GABAPENTIN 600MG Q8H DOSE PO SCH ×2 (05:48→12:47)
[2017-02-06] MEDS: THIAMINE HCL 100 MG TAB PO SCH (07:32)
[2017-02-06] MEDS: ENOXAPARIN 40 MG/0.4 ML SYR SQ SCH (07:32)
[2017-02-06] MEDS: NICOTINE 14 MG/24 HR TDSY TD SCH (07:33)
[2017-02-06 08:08] VITALS: BP 151/94; PULSE 88; TEMP 36.7; O2SAT 94
--- NOTE | 2017-02-06 12:18 | Progress Note ---
Medicine Progress Note Date & Time of Visit: February 06, 2017 at 12:19 . Subjective Doing well. No hallucinations, sweats, shakes, nausea, vomiting. No chest pain or SOB. Eating well. Ambulating. Would like to go home. Is not interested in receiving inpatient or outpatient counseling. . Objective Last 8 Hrs Date Time Temp Pulse Resp B/P Pulse Ox O2 Delivery O2 Flow Rate FiO2 02/06/17 08:08 36.7 88 17 151/94 94 Room Air 02/06/17 08:00 Room Air Physical Exam: General- no distress Eyes- anicteric Lungs- clear Heart- RRR Abdomen- + BS, soft, nontender Extremities- no pretibial edema or calf tenderness Neuro- alert, oriented, ambulating . Assessment & Plan ALCOHOL INTOXICATION / ALCOHOLISM Chronic problems with alcoholism. Presented to ED with blood alcohol level of 337. AST slightly elevated @ 73. Received multivitamins, thiamine, folate. Gabapentin protocol utilized with good results. Counseling discussed and encouraged- patient is not interested. Will discharge on gabapentin taper per protocol. VTE PROPHYLAXIS Received SQ enoxaparin. Ambulating. DISPOSITION Discharge to home. Family Medicine follow-up with Dr. Cr. . Procedures: CT head IV fluids / meds . Current Inpatient Medications: Current Inpatient Medications Medications (Trade) Dose Ordered Sig/Justin Route Start Time Stop Time Status Last Admin Dose Admin Enoxaparin Sodium (Lovenox Inj) 40 mg Q24H SQ 02/05/17 08:00 03/07/17 07:59 02/06/17 07:32 40 MG Ondansetron HCl (Zofran Inj) 4 mg Q6H PRN IV 02/04/17 21:45 03/06/17 21:44 Oxycodone HCl (Roxicodone Immediate Rel Tab) 5 mg BID PRN PO 02/04/17 22:00 02/18/17 21:59 02/05/17 19:59 5 MG Albuterol/ Ipratropium (Duoneb) 3 ml QIDR PRN INH 02/04/17 22:00 03/06/17 21:59 Lorazepam (Ativan Tab) PRN Dosing -Active Protocol UD PRN PO 02/04/17 22:00 03/06/17 21:59 02/05/17 17:42 1 MG Thiamine HCl (Vitamin B-1 Tab) 100 mg QAM PO 02/05/17 09:00 03/07/17 08:59 02/06/17 07:32 100 MG Folic Acid (Folvite Tab) 1 mg QAM PO 02/05/17 09:00 03/07/17 08:59 02/06/17 07:32 1 MG Morphine Sulfate (MoRPHine SULFATE INJ) 2 mg Q8H PRN IV 02/04/17 22:00 02/18/17 21:59 Nicotine (Nicoderm Cq 14MG Patch) 1 patch QAM TD 02/05/17 09:00 03/07/17 08:59 Miscellaneous (Remove Nicoderm Patch) 1 ea HS N/A 02/05/17 21:00 03/07/17 20:59 Gabapentin (Neurontin Tab) 600 mg Q8H PO 02/05/17 22:00 02/06/17 14:01 02/06/17 05:48 600 MG Gabapentin (Neurontin Tab) 600 mg Q12H PO 02/07/17 00:00 02/07/17 12:01 Gabapentin (Neurontin Tab) 600 mg Q24H PO 02/08/17 12:00 02/08/17 12:01
[2017-02-06] MEDS ORDERED: MULTTAB58 PO (12:24)
[2017-02-06] MEDS ORDERED: FLV1 PO (12:24)
[2017-02-06] MEDS ORDERED: THM100 PO (12:24)
[2017-02-06] MEDS ORDERED: NRN600 PO (12:24)
--- NOTE | 2017-02-06 12:29 | Discharge Instructions ---
Discharge Instructions Date of Service February 06, 2017. Admission Reason for Admission: Alcohol Intoxication Discharge Discharge Diagnosis / Problem: alcohol intoxication Discharge Goals Goal(s): Increase independence, Improve disease control Activity Recommendations Activity Limitations: resume your previous activity Lifting Limitations: none Exercise/Sports Limitations: none Shower/Bathe: no limitations Driving or Machine Use: no driving . Instructions / Follow-Up Instructions / Follow-Up FOLLOW-UP APPOINTMENT: FAMILY MEDICINE 02/09/2017 2:00 PM Darrius Cr MD INSTRUCTIONS: You should not drink any alcoholic beverages. Gabapentin (Neurontin) can help with alcohol withdrawal. Take as directed. Do not take it if you are drinking. Take multivitamins, thiamine, folic acid as ordered. Contact office if you would like outpatient counseling for alcoholism. Consider joining AA for help. Seek medical attention if you have: * temperature above 101 * chest pain or trouble breathing * abdominal pain, nausea, vomiting * diarrhea, dark stools or bloody stools * any unanswered questions or concerns Call 911 if symptoms are severe. Call if you have any questions or problems. My cell # is [phone]. You can also reach a [facility] hospitalist on duty at [facility] 24 hours a day by calling [phone]. Please take good care of yourself. Sanket Mendez . Current Hospital Diet Patient's current hospital diet: AHA Diet (Heart Healthy) Discharge Diet Recommended Diet: Regular Diet Pending Studies Studies pending at discharge: no Medical Emergencies . Who to Call and When: Medical Emergencies: If at any time you feel your situation is an emergency, please call 911 immediately. . Non-Emergent Contact Non-Emergency issues call your: Primary Care Provider . . "Provider Documentation" section prepared by Sanket Mendez. . VTE Core Measure Inpt VTE Proph given/why not?: Enoxaparin (Lovenox)SQ
[2017-02-06 12:39] VITALS: BP 151/94; PULSE 88; TEMP 36.7; O2SAT 94
--- NOTE | 2017-02-06 20:22 | Discharge Summary ---
Discharge Summary Date of Service February 06, 2017. Discharge Summary Admission Date: Feb 04, 2017 at 21:48 Discharge Date: February 06, 2017 Discharge Disposition: Home Principal Diagnosis: alcohol intoxication . Secondary Diagnoses/Problems: alcoholism COPD history paroxysmal atrial fibrillation . Procedures: CT head IV fluids / meds . Pending Studies/Follow-Up: none . Medication Reconciliation New Medications: Multiple Vitamin (Multivitamin) 1 Tab Tab 1 TAB PO DAILY, #30 TAB 5 Refills Folic Acid (Folic Acid) 1 Mg Tab 1 MG PO DAILY, #30 TAB 5 Refills Gabapentin (Gabapentin) 600 Mg Tab 600 MG PO UD, #4 TAB 0 Refills 5/2 1 pill at bedtime 5/3 1 pill in the morning + 1 pill at bedtime 5/4 1 pill in the morning (last dose) Thiamine HCl (Vitamin B-1) 100 Mg Tab 100 MG PO DAILY, #30 TAB 5 Refills Continued Medications: Albuterol Hfa (Ventolin Hfa) 200 Puffs/37248 Mcg Aers 2 PUFFS INH Q4H PRN for SOB/Wheezing, INHALER Discontinued Medications: Diphenhydramine Hcl (Benadryl) Unknown Strength Cap Unknown Dose PO HS PRN for Sleep, CAP PT STATES "TAKE 3 SLEEPING PILLS AT BEDTIME". Admission Information HPI (per Admitting provider): Patient is 51 yr old male with PMH of alcohol abuse disorder, Tobacco use, COPD , P,afib, Hypothyroidism, H/O PE, chronic pancreatitis, Insomnia and other problems presents with altered mental status secondary to alcohol intoxication. Poor historian secondary to intoxication. Patient was found in the middle [place]. Admits to having multiple alcoholic drinks and is interested to go to rehab facility. Patient states he fell yesterday secondary to alcohol use and complains of occipital headache. CT head showed no acute pathology. Denies any history of chest pain, SOB, dizziness, nausea, vomiting, abd pain, fever, chills. Reports chronic dry cough and wheezing secondary to COPD. Also states having left sided rib pain secondary to rib fracture recently. Reports an episode of diarrhea and thinks he noticed some blood in stools. Offers no other relevant history. . Physical Exam (per Admitting): General Appearance: WD/WN, no apparent distress Head: normocephalic, atraumatic Eyes: normal inspection, PERRL ENT: normal ENT inspection, hearing grossly normal Neck: supple, trachea midline Respiratory/Chest: lungs clear, normal breath sounds, no respiratory distress, no accessory muscle use, + pertinent finding (Left rib tenderness) Cardiovascular: regular rate, rhythm, no edema, no murmur Abdomen/GI: normal bowel sounds, non tender, soft Back: normal inspection Extremities/Musculoskelatal: normal inspection, no pedal edema Neurologic/Psych: bottle washer machine II-XII nml as tested, no motor/sensory deficits, alert , normal mood/affect, oriented x 3 Skin: normal color, warm/dry Hospital Course ALCOHOL INTOXICATION / ALCOHOLISM Chronic problems with alcoholism. Presented to ED with blood alcohol level of 337. AST slightly elevated @ 73. Received multivitamins, thiamine, folate. Gabapentin protocol utilized with good results. Counseling discussed and encouraged by Case Management as well as undersigned- patient is not interested. Will discharge on gabapentin taper per protocol. COPD Stable. Continue albuterol PRN. HISTORY PAROXYSMAL ATRIAL FIBRILLATION Currently in NSR. Has not been taking diltiazem for some time. Not safe candidate for anticoagulation due to alcohol consumption, falls, history of severe epistaxis. VTE PROPHYLAXIS Received SQ enoxaparin. Ambulating. DISPOSITION Discharge to home. Family Medicine follow-up with Dr. Cr. . Total time spent on discharge = 35 mins. This includes examination of the patient, discharge planning, medication reconciliation, and communication with other providers. . Discharge Instructions Date of Service February 06, 2017. Admission Reason for Admission: Alcohol Intoxication Discharge Discharge Diagnosis / Problem: alcohol intoxication Discharge Goals Goal(s): Increase independence, Improve disease control Activity Recommendations Activity Limitations: resume your previous activity Lifting Limitations: none Exercise/Sports Limitations: none Shower/Bathe: no limitations Driving or Machine Use: no driving . Instructions / Follow-Up Instructions / Follow-Up FOLLOW-UP APPOINTMENT: FAMILY MEDICINE 02/09/2017 2:00 PM Darrius Cr MD INSTRUCTIONS: You should not drink any alcoholic beverages. Gabapentin (Neurontin) can help with alcohol withdrawal. Take as directed. Do not take it if you are drinking. Take multivitamins, thiamine, folic acid as ordered. Contact office if you would like outpatient counseling for alcoholism. Consider joining AA for help. Seek medical attention if you have: * temperature above 101 * chest pain or trouble breathing * abdominal pain, nausea, vomiting * diarrhea, dark stools or bloody stools * any unanswered questions or concerns Call 911 if symptoms are severe. Call if you have any questions or problems. My cell # is [phone]. You can also reach a [facility] hospitalist on duty at [facility] 24 hours a day by calling [phone]. Please take good care of yourself. Sanket Mendez . Current Hospital Diet Patient's current hospital diet: AHA Diet (Heart Healthy) Discharge Diet Recommended Diet: Regular Diet Pending Studies Studies pending at discharge: no Medical Emergencies . Who to Call and When: Medical Emergencies: If at any time you feel your situation is an emergency, please call 911 immediately. . Non-Emergent Contact Non-Emergency issues call your: Primary Care Provider . . "Provider Documentation" section prepared by Sanket Mendez. . VTE Core Measure Inpt VTE Proph given/why not?: Enoxaparin (Lovenox)SQ
[2017-02-07] MEDS ORDERED: GABAPENTIN 600MG Q12H DOSE PO SCH
[2017-02-08] MEDS ORDERED: GABAPENTIN 600MG X1 DOSE PO SCH (12:00)
--- NOTE | 2017-02-22 14:01 | EDITING REQUIRED CODING QUERY ---
CQSUPPORTING DIAGNOSIS NEEDED A supporting diagnosis is required for the test/procedure performed on this patient in order for us to be reimbursed by the patient's insurance. Please provide a supporting diagnosis for the following test/procedure listed below next to the test name along with your signature. *If there is no additional diagnosis for this patient that would support the following test/procedure please document that below next to the test/procedure. Test(s)/Procedure(s) that require a supporting diagnosis: Alcohol abuse DOS 02/04/17 AND 02/06/17 CONTROLLED SUBSTANCE TEST Provider Signature: Negin Mendez Date: _02/23/17 Thank you Melissa Caceres Health Information Management Once completed, please kindly fax back to [phone] For questions please call [phone]
[2017-07-10] MEDS ORDERED: SALI0.6510 (16:02)
[2017-07-10] MEDS ORDERED: BCTRO (16:02)
[2017-07-13] MEDS ORDERED: TRAZ1TAB52 PO (20:24)
== END 2017-02-06 12:51 | disposition home or self-care (01) | DRG 897 ==
LOC: ENRESERVTM → ENRESERVDT → EDBD 17:10 → C.EDA 17:12 → C.MED 21:48
PROVIDERS: ADMIT Internal Medicine; ATTEND Hospitalist
DX: F10.229 Alcohol dependence with intoxication, unspecified (principal); I85.00 Esophageal varices without bleeding; K86.0 Alcohol-induced chronic pancreatitis; K70.30 Alcoholic cirrhosis of liver without ascites; J45.909 Unspecified asthma, uncomplicated; E03.9 Hypothyroidism, unspecified; I48.0 Paroxysmal atrial fibrillation; I27.2 Other secondary pulmonary hypertension; F17.200 Nicotine dependence, unspecified, uncomplicated; G47.00 Insomnia, unspecified; Z86.711 Personal history of pulmonary embolism; F39 Unspecified mood [affective] disorder; F41.9 Anxiety disorder, unspecified; J44.9 Chronic obstructive pulmonary disease, unspecified; Z86.718 Personal history of other venous thrombosis and embolism; Z90.49 Acquired absence of other specified parts of digestive tract; Z83.3 Family history of diabetes mellitus; Z82.49 Family history of ischemic heart disease and other diseases of the circulatory system; Z80.6 Family history of leukemia; Z79.899 Other long term (current) drug therapy; S00.81XA Abrasion of other part of head, initial encounter; S60.511A Abrasion of right hand, initial encounter; S60.512A Abrasion of left hand, initial encounter; D69.6 Thrombocytopenia, unspecified; Y90.7 Blood alcohol level of 200-239 mg/100 ml; E87.6 Hypokalemia; G89.29 Other chronic pain; Y04.0XXA Assault by unarmed brawl or fight, initial encounter

== ENCOUNTER 2017-02-06 20:05 | Emergency (ER) | payer OTHER ==
[~2017-02-06] VITALS: Ht 165.1 cm; Wt 67.4 kg
[~2017-02-06 20:05] MED LIST changes: +DIPH25CA5 PO; -MGNO400 PO; -MULT-589 PO; +MULTTAB58 PO; +NRN600 PO; -PRT40 PO
[2017-02-06 20:15] VITALS: Ht 165.1 cm; Wt 67.4 kg
[2017-02-06 21:04] LABS: HEMATOCRIT 44.4 % (42-52); MEAN CELL VOLUME 96.5 fL (80-100); MEAN CORPUSCULAR HEMOGLOBIN 35.4 pg (25-34); MEAN CORPUSCULAR HGB CONC 36.7 g/dl (32-36); WHITE BLOOD COUNT 10.59 K/uL (4.8-10.8)
[2017-02-06 21:12] LABS: URINE APPEARANCE CLEAR (CLEAR); URINE BILIRUBIN NEG (NEG); URINE COLOR YELLOW; URINE NITRITE NEG (NEG); URINE PH 6.5 (4.5-7.5); URINE SPECIFIC GRAVITY 1.004 (1.000-1.030); UROBILINOGEN NEG (NEG)
[2017-02-06 21:14] LABS: MANUAL MICROSCOPIC REQUIRED? NO; REVIEW REQ? YES
[2017-02-06 21:21] LABS: URINE EPITHELIAL CELL AUTO 0-5 /lpf (0-5); ZZUR CULT IF INDIC CLEAN CATCH NO
[2017-02-06 21:23] LABS: BASO % 0.3 %; BASO ABS # 0.03 K/uL (0-0.2); COMPLETE YES; EOS % 2.4 %; IG% 0.3 %; LYMPH ABS # 2.54 K/uL (1.2-3.4); MONO % 12.8 %; NEUT % 60.2 %; PLATELET COUNT 94 K/uL (130-400); PLT ESTIMATE DECREASED
[2017-02-06 21:31] LABS: BUN/CREATININE RATIO 3.6 (10-20); CREATININE 0.66 mg/dl (0.60-1.40); POTASSIUM 3.1 mmol/L (3.5-5.1)
[2017-02-06 21:33] LABS: ACETAMINOPHEN < 2 ug/ml (10-30)
[2017-02-06 21:36] LABS: ALB/GLOB RATIO 0.7 (0.9-2); THYROID STIMULATING HORMONE 5.75 uIu/ml (0.300-4.500)
[2017-02-06 21:36] LABS: BENZODIAZEPINE, URINE NEG (NEG); COCAINE,URINE NEG (NEG); PHENCYCLIDINE, URINE NEG (NEG)
[2017-02-06 22:08] LABS: CALCIUM 8.5 mg/dl (8.5-10.1)
--- NOTE | 2017-02-06 22:31 | DIAGNOSTIC IMAGING REPORT ---
RIGHT HAND MIN 3 VIEWS ROUTINE CLINICAL HISTORY: Right hand pain following trauma. COMPARISON: Right hand radiographs February 13, 2016. FINDINGS: There is an old fracture of the distal shaft of the right fifth metacarpal. This is healed. No acute fracture is identified within the right hand. Carpal bones appear intact. IMPRESSION: 1. No acute fracture or dislocation of the right hand. 2. Old right fifth metacarpal fracture. Electronically signed by: Chuy Rodríguez M.D. 02/06/2017 10:30 PM Dictated Date/Time: 02/06/2017 10:28 PM
--- NOTE | 2017-02-06 22:34 | DIAGNOSTIC IMAGING REPORT ---
LEFT HAND MIN 3 VIEWS ROUTINE CLINICAL HISTORY: Left hand pain following trauma. COMPARISON: None FINDINGS: Alignment of left hand is anatomic. No acute fracture is identified. Carpal bones appear intact. IMPRESSION: No acute fracture or dislocation of the left hand. Electronically signed by: Chuy Rodríguez M.D. 02/06/2017 10:32 PM Dictated Date/Time: 02/06/2017 10:30 PM
[2017-02-06] MEDS ORDERED: POTASSIUM CHLORIDE 10 MEQ TABCR PO STA (23:56)
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
[2017-02-07 05:58] VITALS: BP 124/79; PULSE 100; O2SAT 95
--- NOTE | 2017-02-07 06:00 | EMERGENCY ROOM VISIT NOTE ---
ED Visit Note First contact with patient: 02:27 51 yr old male arrives for evaluation of mental health and intoxication. He was brought in by Police on 302 petition after getting intoxicated, making suicidal threats, and punching things. He has been admitted to hospital several times over last few weeks for alcohol intoxication and requesting rehab. He has each time returned to drinking. He has chronic pain issues and drug requests. Patient initially evaluated by Dr Adamson who signed pt out to me awaiting [facility] Help evaluation. On evaluation patient stable, no longer intoxicated and denying he is suicidal/homicidal. He states he wants to go home and does not feel he needs mental health evaluation. CAN help in to see patient and he refuses apparently to talk with them On me going back in he is somewhat belligerent demanding to go home. He clearly is unable to see the seriousness of this situation. He is unable to care for himself at home. He has attempted multiple times in past to kill himself per family and they feel he is at imminent risk of doing it again. CAN help feels he is at risk of harming self and Warrant was issued. I discussed case with [employer] Psychiatrist and we both feel that warrant will need to be upheld. Patient was placed at [facility] and transferred via constable.
--- NOTE | 2017-02-07 06:45 | DIAGNOSTIC IMAGING REPORT ---
HEAD CT NONCONTRAST CT DOSE: 537.48 mGy.cm HISTORY: Trauma ETOH, hit forehead on concrete TECHNIQUE: Multiaxial CT images of the head were performed without the use of intravenous contrast. Comparison: 02/04/2017 Findings: The paranasal sinuses and mastoid air cells are clear. The calvarium and skull base are intact. The ventricles and sulci are within normal limits. There is no mass, hematoma, midline shift, or acute infarct. Impression: No acute intracranial abnormality. Electronically signed by: Jean Pereyra M.D. 02/07/2017 6:44 AM Dictated Date/Time: 02/07/2017 6:43 AM
[2017-02-14 16:31] LABS: SYNTHETIC CANNABINOIDS QL URIN NEGATIVE (Negative)
[2017-07-10] MEDS ORDERED: SALI0.6510 (16:02)
[2017-07-10] MEDS ORDERED: BCTRO (16:02)
[2017-07-13] MEDS ORDERED: TRAZ1TAB52 PO (20:24)
== END 2017-02-07 05:59 | disposition home or self-care (01) ==
LOC: C.EDB 20:07 → C.EDA 02-07 05:59
DX: F10.229 Alcohol dependence with intoxication, unspecified (principal); F39 Unspecified mood [affective] disorder; K70.30 Alcoholic cirrhosis of liver without ascites; F41.9 Anxiety disorder, unspecified; J44.9 Chronic obstructive pulmonary disease, unspecified; E03.9 Hypothyroidism, unspecified; I48.0 Paroxysmal atrial fibrillation; Z86.718 Personal history of other venous thrombosis and embolism; I27.2 Other secondary pulmonary hypertension; F17.210 Nicotine dependence, cigarettes, uncomplicated; Z90.49 Acquired absence of other specified parts of digestive tract; Z83.3 Family history of diabetes mellitus; Z82.49 Family history of ischemic heart disease and other diseases of the circulatory system; Z80.6 Family history of leukemia; Z79.899 Other long term (current) drug therapy; S00.81XA Abrasion of other part of head, initial encounter; S60.511A Abrasion of right hand, initial encounter; S60.512A Abrasion of left hand, initial encounter; D69.6 Thrombocytopenia, unspecified; Y90.7 Blood alcohol level of 200-239 mg/100 ml; E87.6 Hypokalemia; G89.29 Other chronic pain; Y04.0XXA Assault by unarmed brawl or fight, initial encounter; W22.09XA Striking against other stationary object, initial encounter

== ENCOUNTER 2017-03-06 19:55 | Emergency (ER) | payer OTHER ==
[~2017-03-06] VITALS: Ht 165.1 cm; Wt 64.9 kg
[~2017-03-06 19:55] MED LIST changes: -DIPH25CA5 PO
[2017-03-06 20:01] VITALS: TEMP 36.8; Ht 165.1 cm; Wt 64.9 kg
[2017-03-06] MEDS ORDERED: CHLO25CA10 PO (20:24)
[2017-03-06] MEDS ORDERED: MULT-506 PO (20:24)
[2017-03-06] MEDS ORDERED: PRLSR20 PO (20:24)
[2017-03-06] MEDS ORDERED: FOLI1TAB7 PO (20:24)
[2017-03-06] MEDS ORDERED: CITA10TA4 PO (20:24)
[2017-03-06] MEDS ORDERED: THIA1TAB11 PO (20:24)
[2017-03-06] MEDS ORDERED: MAGN400T6 PO (20:24)
--- NOTE | 2017-03-06 21:05 | DIAGNOSTIC IMAGING REPORT ---
SINGLE VIEW CHEST CLINICAL HISTORY: Atypical chest pain. FINDINGS: An AP, portable, upright chest radiograph is compared to study dated 02/04/2017 and correlated with chest CT dated 12/12/2016. The examination is degraded by portable technique and patient rotation. The cardiomediastinal silhouette is unremarkable. Enlargement of the central pulmonary vessels indicates pulmonary artery hypertension. Emphysema and chronic interstitial thickening are similar to previous. There is no airspace consolidation or pleural effusion. No pneumothorax is seen. The skeletal structures appear osteopenic. Degenerative change and mild scoliosis are noted in the thoracic spine. IMPRESSION: Emphysema with no acute cardiopulmonary abnormality. Electronically signed by: Salazar Segura M.D. 03/06/2017 9:04 PM Dictated Date/Time: 03/06/2017 9:02 PM
[2017-03-06 21:20] LABS: ALT/SGPT 21 U/L (12-78); BLOOD UREA NITROGEN 8 mg/dl (7-18); BUN/CREATININE RATIO 9.8 (10-20); CARBON DIOXIDE 29 mmol/L (21-32); CHLORIDE 106 mmol/L (98-107); GLUCOSE 103 mg/dl (70-99); POTASSIUM 3.3 mmol/L (3.5-5.1); SODIUM 142 mmol/L (136-145)
[2017-03-06 21:25] LABS: ALB/GLOB RATIO 0.5 (0.9-2); ALKALINE PHOSPHATASE 103 U/L (45-117); AST/SGOT 27 U/L (15-37)
[2017-03-06 22:02] LABS: CALCIUM 7.9 mg/dl (8.5-10.1)
[2017-03-06 22:04] LABS: MEAN CELL VOLUME 98.2 fL (80-100); MEAN CORPUSCULAR HEMOGLOBIN 33.9 pg (25-34); MEAN CORPUSCULAR HGB CONC 34.5 g/dl (32-36); MEAN PLATELET VOLUME 12.1 fL (7.4-10.4); PLATELET COUNT 101 K/uL (130-400); RED BLOOD COUNT 4.48 M/uL (4.7-6.1); WHITE BLOOD COUNT 6.33 K/uL (4.8-10.8)
--- NOTE | 2017-03-06 22:14 | EMERGENCY ROOM VISIT NOTE ---
ED Visit Note First contact with patient: 20:20 51-year-old male with substernal chest pain was fully evaluated by Ama Izquierdo PA-C. Please see her note. I also independently evaluated the patient. The patient has reproducible sternal chest pain. Multiple labs, EKG and imaging were obtained. The patient is currently incarcerated and I believe that he is safe to return to [facility].
--- NOTE | 2017-03-06 22:43 | EMERGENCY ROOM VISIT NOTE ---
History First contact with patient: 20:20 Chief Complaint: CHEST PAIN Stated Complaint: CHEST PAIN Nursing Triage Summary: Pt reports Chest pain and lower back pain for the past 3 days. c/o headache. Possible alcohol withdrawl, last drink 02/28. "i got a bad heart" History of Present Illness The patient is a 51 year old male who presents to the Emergency Room with complaints of chest pain 4 days. The patient states that the pain 4 days ago when he woke up. The pain has been constant since its onset. He states the pain is located across the front of his chest. He also reports low back pain, which is chronic for him. He denies any associated shortness of breath, syncope , palpitations, jaw or arm pain. The patient does have a history of previous CT. He denies any aggravating or alleviating factors. Review of Systems A complete 10 point review of systems was reviewed with the patient with pertinent positives and negatives as per history of present illness. All else were negative. Past Medical/Surgical History Medical Problems: (1) Alcohol dependence (2) Alcoholic cirrhosis of liver without ascites (3) Asthma, mild persistent (4) Chronic anxiety (5) Chronic pancreatitis (6) COPD, mild (7) Esophageal varices (8) Hypothyroidism (9) Paroxysmal atrial fibrillation (10) Portal vein thrombosis (11) Pulmonary HTN (12) Thrombocytopenia (13) Tobacco abuse Surgical Problems: (1) H/O colonoscopy (2) History of cholecystectomy (3) History of esophagogastroduodenoscopy (EGD) Family History Blood clots Diabetes mellitus MOTHER FH: CAD (coronary artery disease) FATHER BROTHER FH: leukemia AUNT Hypertension Social History Smoking Status: Current Every Day Smoker Alcohol Use: heavy Drug Use: none Marital Status: single Housing Status: lives with family Occupation Status: unemployed Current/Historical Medications Scheduled Chlordiazepoxide (Librium), 25 MG PO DAILY Citalopram Hydrobromide (Citalopram Hydrobromide), 10 MG PO DAILY Folic Acid (Folvite), 1 MG PO DAILY Magnesium Oxide (Mag-Ox), 400 MG PO DAILY Multivitamin (Multivitamin), 1 TAB PO DAILY Omeprazole (Prilosec), 20 MG PO DAILY Thiamine Mononitrate (Vitamin B1), 100 MG PO DAILY Trazodone Hcl (Desyrel), 150 MG PO HS Allergies Coded Allergies: Fentanyl (Verified Allergy, Intermediate, RASH ALL OVER BODY, 02/06/17) ALL OVER BODY Physical Exam Vital Signs Date Time Temp Pulse Resp B/P (MAP) Pulse Ox O2 Delivery O2 Flow Rate FiO2 03/06/17 22:55 81 18 129/81 100 03/06/17 22:17 75 16 122/69 99 Room Air 03/06/17 20:37 Room Air 03/06/17 20:34 86 03/06/17 20:01 36.8 101 18 115/75 98 Room Air Physical Exam VITALS: Vitals are noted on the nurse's note and reviewed by myself. Vital signs stable. GENERAL: This is a 51-year-old male, in no acute distress, nondiaphoretic, well- developed well-nourished. SKIN: Capillary reflex less than 2 seconds. HEENT: Normocephalic. PERRLA. EOMI. Nares patent. Mucous membranes moist. Neck is supple without nuchal rigidity. HEART: Regular rate and rhythm without murmurs gallops or rubs. LUNGS: Clear to auscultation bilaterally without wheezes, rales or rhonchi. No retractions or accessory muscle use. MUSCULOSKELETAL: There is reproducible tenderness to palpation of the anterior chest wall. NEURO: Patient was alert and oriented to person place and time. Medical Decision & Procedures ER Provider Diagnostic Interpretation: SINGLE VIEW CHEST CLINICAL HISTORY: Atypical chest pain. FINDINGS: An AP, portable, upright chest radiograph is compared to study dated 02/04/2017 and correlated with chest CT dated 12/12/2016. The examination is degraded by portable technique and patient rotation. The cardiomediastinal silhouette is unremarkable. Enlargement of the central pulmonary vessels indicates pulmonary artery hypertension. Emphysema and chronic interstitial thickening are similar to previous. There is no airspace consolidation or pleural effusion. No pneumothorax is seen. The skeletal structures appear osteopenic. Degenerative change and mild scoliosis are noted in the thoracic spine. IMPRESSION: Emphysema with no acute cardiopulmonary abnormality. Laboratory Results 03/06/17 20:48 Red Blood Count 4.48, Mean Corpuscular Volume 98.2, Mean Corpuscular Hemoglobin 33.9, Mean Corpuscular Hemoglobin Concent 34.5, Mean Platelet Volume 12.1, Neutrophils (%) (Auto) 53.0, Lymphocytes (%) (Auto) 23.9, Monocytes (%) (Auto) 18.8, Eosinophils (%) (Auto) 3.5, Basophils (%) (Auto) 0.5, Neutrophils # (Auto ) 3.36, Lymphocytes # (Auto) 1.51, Monocytes # (Auto) 1.19, Eosinophils # (Auto ) 0.22, Basophils # (Auto) 0.03 03/06/17 20:48 Test 03/06/17 20:48 03/06/17 20:54 White Blood Count 6.33 K/uL (4.8-10.8) Red Blood Count 4.48 M/uL (4.7-6.1) Hemoglobin 15.2 g/dL (14.0-18.0) Hematocrit 44.0 % (42-52) Mean Corpuscular Volume 98.2 fL (80-100) Mean Corpuscular Hemoglobin 33.9 pg (25-34) Mean Corpuscular Hemoglobin Concent 34.5 g/dl (32-36) Platelet Count 101 K/uL (130-400) Mean Platelet Volume 12.1 fL (7.4-10.4) Neutrophils (%) (Auto) 53.0 % Lymphocytes (%) (Auto) 23.9 % Monocytes (%) (Auto) 18.8 % Eosinophils (%) (Auto) 3.5 % Basophils (%) (Auto) 0.5 % Neutrophils # (Auto) 3.36 K/uL (1.4-6.5) Lymphocytes # (Auto) 1.51 K/uL (1.2-3.4) Monocytes # (Auto) 1.19 K/uL (0.11-0.59) Eosinophils # (Auto) 0.22 K/uL (0-0.5) Basophils # (Auto) 0.03 K/uL (0-0.2) RDW Standard Deviation 45.0 fL (36.4-46.3) RDW Coefficient of Variation 12.5 % (11.5-14.5) Immature Granulocyte % (Auto) 0.3 % Immature Granulocyte # (Auto) 0.02 K/uL (0.00-0.02) Red Blood Cell Morphology Unremarkable Anion Gap 7.0 mmol/L (3-11) Est Creatinine Clear Calc Drug Dose 94.0 ml/min Estimated GFR () 119.0 Estimated GFR (Non- 102.7 BUN/Creatinine Ratio 9.8 (10-20) Calcium Level 7.9 mg/dl (8.5-10.1) Total Bilirubin 1.2 mg/dl (0.2-1) Aspartate Amino Transf (AST/SGOT) 27 U/L (15-37) Alanine Aminotransferase (ALT/SGPT) 21 U/L (12-78) Alkaline Phosphatase 103 U/L (45-117) Total Creatine Kinase 35 U/L (39-308) Creatine Kinase MB < 0.5 ng/ml (0.5-3.6) Creatine Kinase MB Ratio (0-3.0) Troponin I < 0.015 ng/ml (0-0.045) Total Protein 6.6 gm/dl (6.4-8.2) Albumin 2.2 gm/dl (3.4-5.0) Globulin 4.4 gm/dl (2.5-4.0) Albumin/Globulin Ratio 0.5 (0.9-2) Bedside Troponin I 0.000 ng/ml (0-0.045) ECG Rate (beats per minute): 95 Rhythm: normal sinus Findings: T-wave inversion (Inferior), no acute ischemic change, no ectopy Comparison ECG Date: appears similar to EKG 02/04/17. Medical Decision Differential diagnosis includes acute coronary syndrome, pulmonary embolism, pneumothorax, pericarditis, myocarditis, endocarditis, anxiety, musculoskeletal pain, GERD, costochondritis, pneumonia, among others. The patient is a 51-year-old male who presents today complaining of chest pain. Labs were unremarkable. Troponin was not elevated. Given that the patient has had symptoms for 4 days, I would certainly expect a troponin to be elevated if the patient had an ischemic event. EKG appears similar to a previous EKG from one month ago. The patient's pain is reproducible on palpation. He should follow-up with his primary care provider. The patient was independently evaluated by Dr. Rubin, ED attending physician, who agreed with my assessment and treatment plan. Based on the patient's presentation and work up, I feel the patient is stable for outpatient treatment. The patient was educated to return to the emergency department for any worsening of their current condition or new/concerning symptoms. He will follow up with his PCP. Impression Primary Impression: Chest wall pain Departure Information Dispostion Home / Self-Care Condition GOOD Referrals [facility] (PCP) Patient Instructions My [facility] Additional Instructions You have been treated in the Emergency Department for your Chest Pain. Laboratory results and Imaging Studies have ruled out any cardiac or pulmonary cause of your chest pain. For pain control, you can use the following [id number] medicines (if >12 yo): - Regular strength (325mg/tab) Tylenol (acetaminophen) 2 tabs every 4-6 hours as needed. Do not exceed 12 tablets in a 24 hour period. Avoid taking more than 4 grams (4000 mg) of Tylenol per day. This includes any other sources of acetaminophen you may take on a regular basis. - Regular strength (200 mg/tab) Advil (ibuprofen) 1-2 tabs every 4-6 hours as needed. Do not exceed a dose of 3200 mg per day. You should schedule a follow-up appointment with your Primary Care Provider in 2 -3 days for further evaluation from today's Emergency Department visit. Return to the Emergency Department if your current symptoms worsen despite treatment course outlined above, or if you develop any of the following symptoms : worsening chest pain, associated jaw/arm pain, nausea, dizziness, shortness of breath, bloody cough, or fainting.
[2017-03-06 22:55] VITALS: BP 129/81; PULSE 81; O2SAT 100
[2017-03-06 22:57] LABS: BASO % 0.5 %; BASO ABS # 0.03 K/uL (0-0.2); COMPLETE YES; EOS % 3.5 %; IG% 0.3 %; LYMPH % 23.9 %; LYMPH ABS # 1.51 K/uL (1.2-3.4); MONO % 18.8 %
[2017-07-10] MEDS ORDERED: BCTRO (16:02)
[2017-07-10] MEDS ORDERED: SALI0.6510 (16:02)
[2017-07-13] MEDS ORDERED: TRAZ1TAB52 PO (20:24)
== END 2017-03-06 22:56 | disposition home or self-care (01) ==
LOC: C.EDB 19:58 → C.EDA 22:56
DX: R07.9 Chest pain, unspecified (principal); F10.20 Alcohol dependence, uncomplicated; J45.30 Mild persistent asthma, uncomplicated; F41.9 Anxiety disorder, unspecified; J44.9 Chronic obstructive pulmonary disease, unspecified; E03.9 Hypothyroidism, unspecified; I48.91 Unspecified atrial fibrillation; Z86.718 Personal history of other venous thrombosis and embolism; F17.210 Nicotine dependence, cigarettes, uncomplicated; Z90.49 Acquired absence of other specified parts of digestive tract; Z83.3 Family history of diabetes mellitus; Z82.49 Family history of ischemic heart disease and other diseases of the circulatory system; Z80.6 Family history of leukemia; Z79.899 Other long term (current) drug therapy

== ENCOUNTER 2017-07-01 18:45 | Emergency (ER) | payer OTHER ==
[~2017-07-01] VITALS: Ht 165.1 cm; Wt 73.5 kg
[2017-07-01 18:45] VITALS: TEMP 37.3; O2SAT 96; Ht 165.1 cm; Wt 73.5 kg
[~2017-07-01 18:45] MED LIST changes: +CHLO25CA10 PO; +CITA10TA4 PO; -FLV1 PO; +FOLI1TAB7 PO; +MAGN400T6 PO; +MULT-506 PO; -MULTTAB58 PO; -NRN600 PO; +PRLSR20 PO; +THIA1TAB11 PO; -THM100 PO; -VNTHFA/IN INH
[2017-07-01] MEDS ORDERED: SODIUM CHLORIDE 0.9% 1000ML 1,000 ML IV STA (19:01)
[2017-07-01] MEDS ORDERED: KETOROLAC TROMETHAMINE 30 MG/ML VIAL IV STA (19:01)
[2017-07-01] MEDS ORDERED: PROCHLORPERAZINE 5 MG/ML 2 ML VIAL IV STA (19:01)
[2017-07-01] MEDS ORDERED: DiphenhydrAMINE HCL 50 MG/ML VIAL IV STA (19:01)
--- NOTE | 2017-07-01 19:02 | EMERGENCY ROOM VISIT NOTE ---
History Report prepared by López: Neftali Antunez Under the Supervision of: Dr. Zachary Huynh M.D. First contact with patient: 18:49 Stated Complaint: CHEST PAIN History of Present Illness The patient is a 51 year old male who presents to the Emergency Room with complaints of constant chest pain that started 1.5 hours ago. The patient states that his pain is worsened with pressing on the area. He states that he was watching the football game when he started to experience the chest pain. The patient states that he started to experience left hand numbness following his chest pain. He reports that he used to see Cardiology at [facility] last year. The patient denies heavy lifting, abdominal pain, and taking medication for his pain. 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 A total of 10 systems reviewed and were otherwise negative. Past Medical & Surgical Medical Problems: (1) Alcohol dependence (2) Alcoholic cirrhosis of liver without ascites (3) Asthma, mild persistent (4) Chronic anxiety (5) Chronic pancreatitis (6) COPD, mild (7) Esophageal varices (8) Hypothyroidism (9) Paroxysmal atrial fibrillation (10) Portal vein thrombosis (11) Pulmonary HTN (12) Thrombocytopenia (13) Tobacco abuse Surgical Problems: (1) H/O colonoscopy (2) History of cholecystectomy (3) History of esophagogastroduodenoscopy (EGD) Family History Blood clots Diabetes mellitus MOTHER FH: CAD (coronary artery disease) FATHER BROTHER FH: leukemia AUNT Hypertension Social History Smoking Status: Current Every Day Smoker Alcohol Use: heavy Drug Use: none Marital Status: single Housing Status: lives with family Occupation Status: unemployed Current/Historical Medications Scheduled Trazodone Hcl (Desyrel), 150 MG PO HS Allergies Coded Allergies: Fentanyl (Verified Allergy, Intermediate, RASH ALL OVER BODY, 02/06/17) ALL OVER BODY Physical Exam Vital Signs Date Time Temp Pulse Resp B/P (MAP) Pulse Ox O2 Delivery O2 Flow Rate FiO2 07/01/17 20:00 94 17 120/79 96 07/01/17 19:31 106/55 07/01/17 19:15 88 15 98 07/01/17 19:13 83 07/01/17 19:01 114/78 07/01/17 18:49 136/93 07/01/17 18:45 96 Room Air 07/01/17 18:45 97 Room Air 07/01/17 18:45 37.3 85 18 114/78 96 Room Air Physical Exam GENERAL: Patient is a healthy-appearing well-nourished 51 year old. HEAD: Normocephalic atraumatic EYES: Ocular movements intact pupils equal and react to light OROPHARYNX mucous membranes are moist no exudates present no erythema or edema present NECK: Supple no nuchal rigidity CHEST: Good equal expansion. Tenth left rib exquisitely tender. LUNGS: Clear and equal to auscultation CARDIAC: Normal S1 and S2 ABDOMEN: Soft nontender no guarding BACK: No CVA tenderness EXTREMITIES: No pain upon palpation normal muscle strength in all groups no clubbing cyanosis or edema NEURO: Patient is following commands and answering questions appropriately. Alert and oriented x3 Cranial Nerves 2-12 grossly intact Medical Decision & Procedures ER Provider Diagnostic Interpretation: X-ray results as stated below per interpretation by me and the radiologist: CHEST ONE VIEW PORTABLE CLINICAL HISTORY: CHEST PAIN dyspnea COMPARISON STUDY: 03/06/2017 FINDINGS: The bones soft tissues and hemidiaphragms are normal. The cardiomediastinal silhouette is normal. The lungs are clear. The pulmonary vasculature is normal. IMPRESSION: Negative chest. The above report was generated using voice recognition software. It may contain grammatical, syntax or spelling errors. Electronically signed by: Jean Pereyra M.D. 07/01/2017 7:30 PM Dictated Date/Time: 07/01/2017 7:30 PM Laboratory Results 07/01/17 18:58 Red Blood Count 5.05, Mean Corpuscular Volume 94.5, Mean Corpuscular Hemoglobin 34.9, Mean Corpuscular Hemoglobin Concent 36.9, Mean Platelet Volume 12.0, Neutrophils (%) (Auto) 43.1, Lymphocytes (%) (Auto) 40.7, Monocytes (%) (Auto) 11.3, Eosinophils (%) (Auto) 3.9, Basophils (%) (Auto) 0.7, Neutrophils # (Auto ) 3.31, Lymphocytes # (Auto) 3.12, Monocytes # (Auto) 0.87, Eosinophils # (Auto ) 0.30, Basophils # (Auto) 0.05 07/01/17 18:58 Test 07/01/17 18:58 White Blood Count 7.67 K/uL (4.8-10.8) Red Blood Count 5.05 M/uL (4.7-6.1) Hemoglobin 17.6 g/dL (14.0-18.0) Hematocrit 47.7 % (42-52) Mean Corpuscular Volume 94.5 fL (80-100) Mean Corpuscular Hemoglobin 34.9 pg (25-34) Mean Corpuscular Hemoglobin Concent 36.9 g/dl (32-36) Platelet Count 106 K/uL (130-400) Mean Platelet Volume 12.0 fL (7.4-10.4) Neutrophils (%) (Auto) 43.1 % Lymphocytes (%) (Auto) 40.7 % Monocytes (%) (Auto) 11.3 % Eosinophils (%) (Auto) 3.9 % Basophils (%) (Auto) 0.7 % Neutrophils # (Auto) 3.31 K/uL (1.4-6.5) Lymphocytes # (Auto) 3.12 K/uL (1.2-3.4) Monocytes # (Auto) 0.87 K/uL (0.11-0.59) Eosinophils # (Auto) 0.30 K/uL (0-0.5) Basophils # (Auto) 0.05 K/uL (0-0.2) RDW Standard Deviation 50.5 fL (36.4-46.3) RDW Coefficient of Variation 14.8 % (11.5-14.5) Immature Granulocyte % (Auto) 0.3 % Immature Granulocyte # (Auto) 0.02 K/uL (0.00-0.02) Large Platelets 1+ Anion Gap 11.0 mmol/L (3-11) Est Creatinine Clear Calc Drug Dose 86.4 ml/min Estimated GFR () 115.0 Estimated GFR (Non- 99.2 BUN/Creatinine Ratio 4.0 (10-20) Calcium Level 8.4 mg/dl (8.5-10.1) Total Bilirubin 1.9 mg/dl (0.2-1) Direct Bilirubin 0.5 mg/dl (0-0.2) Aspartate Amino Transf (AST/SGOT) 77 U/L (15-37) Alanine Aminotransferase (ALT/SGPT) 48 U/L (12-78) Alkaline Phosphatase 117 U/L (45-117) Total Creatine Kinase 262 U/L (39-308) Creatine Kinase MB 2.2 ng/ml (0.5-3.6) Creatine Kinase MB Ratio 0.8 (0-3.0) Troponin I 0.016 ng/ml (0-0.045) Total Protein 7.9 gm/dl (6.4-8.2) Albumin 3.0 gm/dl (3.4-5.0) Lipase 218 U/L (73-393) Ethyl Alcohol mg/dL 228.0 mg/dl (0-3) Labs reviewed by ED physician. Medications Administered Medications (Trade) Dose Ordered Sig/Justin Route Start Time Stop Time Status Last Admin Dose Admin Ketorolac Tromethamine (Toradol Inj) 30 mg NOW STAT IV 07/01/17 19:01 07/01/17 19:03 DC 07/01/17 19:06 30 MG Diphenhydramine HCl (Benadryl Inj) 50 mg NOW STAT IV 07/01/17 19:01 07/01/17 19:03 DC 07/01/17 19:06 50 MG Prochlorperazine Edisylate (Compazine Inj) 10 mg NOW STAT IV 07/01/17 19:01 07/01/17 19:03 DC 07/01/17 19:06 10 MG Sodium Chloride 1,000 ml @ 999 mls/hr Q1H1M STAT IV 07/01/17 19:01 07/01/17 20:01 DC 07/01/17 19:06 999 MLS/HR ECG Indication: chest pain Rate (beats per minute): 90 Rhythm: normal sinus Findings: no acute ischemic change, no ectopy Comparison ECG Date: 03/06/17 Change: no significant change ED Course 1855: Past medical records reviewed. The patient was evaluated in room A02. A complete history and physical examination was performed. 1901: Ordered Sodium Chloride 1000 ml @ 999 mls/hr IV, Compazine Injection 10 mg IV, Benadryl Injection 50 mg IV, Toradol Injection 30 mg IV. Medical Decision The differential diagnosis includes etiologies such as cardiac ischemia, aortic dissection, pulmonary embolism, pneumonia, pneumothorax, musculoskeletal, infections, pericarditis, myocarditis, esophageal rupture, gastrointestinal, as well as others were entertained. This is a 51-year-old male who presents emergency department complaining of left -sided chest wall. The patient is tender to palpation. He has a normal EKG here as well as normal CK-MB and troponin. Before the patient's laboratory work was clearly back he demanded to be discharged and did not wish to stay. He would given Toradol Benadryl and Compazine in the emergency department. Medication Reconcilliation Current Medication List: was personally reviewed by me Blood Pressure Screening Patient's blood pressure: Normal blood pressure Impression Primary Impression: Chest wall pain Scribe Attestation The scribe's documentation has been prepared under my direction and personally reviewed by me in its entirety. I confirm that the note above accurately reflects all work, treatment, procedures, and medical decision making performed by me. Departure Information Dispostion Home / Self-Care Referrals [facility] (PCP) Forms Call Back Authorization, HOME CARE DOCUMENTATION FORM, IMPORTANT VISIT INFORMATION Additional Instructions Follow up with DR Beltran's office You have been examined and treated today on an emergency basis only. This is not a substitute for, or an effort to provide, complete comprehensive medical care. It is impossible to recognize and treat all injuries or illnesses in a single emergency department visit. It is therefore important that you follow up closely with Dr Cr. Call as soon as possible for an appointment. Thank you for your time and consideration. I look forward to speaking with you again soon. Please don't hesitate to call us if you have any questions.
--- NOTE | 2017-07-01 19:32 | DIAGNOSTIC IMAGING REPORT ---
CHEST ONE VIEW PORTABLE CLINICAL HISTORY: CHEST PAIN dyspnea COMPARISON STUDY: 03/06/2017 FINDINGS: The bones soft tissues and hemidiaphragms are normal. The cardiomediastinal silhouette is normal. The lungs are clear. The pulmonary vasculature is normal. IMPRESSION: Negative chest. The above report was generated using voice recognition software. It may contain grammatical, syntax or spelling errors. Electronically signed by: Jean Pereyra M.D. 07/01/2017 7:30 PM Dictated Date/Time: 07/01/2017 7:30 PM
[2017-07-01 19:46] LABS: CALCIUM 8.4 mg/dl (8.5-10.1); CREATININE 0.87 mg/dl (0.60-1.40); POTASSIUM 3.1 mmol/L (3.5-5.1)
[2017-07-01 19:52] LABS: CKMB/CK RATIO 0.8 (0-3.0)
[2017-07-01 19:58] LABS: HEMATOCRIT 47.7 % (42-52); MEAN CELL VOLUME 94.5 fL (80-100); MEAN CORPUSCULAR HEMOGLOBIN 34.9 pg (25-34); MEAN CORPUSCULAR HGB CONC 36.9 g/dl (32-36); PLATELET COUNT 106 K/uL (130-400); RED BLOOD COUNT 5.05 M/uL (4.7-6.1); WHITE BLOOD COUNT 7.67 K/uL (4.8-10.8)
[2017-07-01 20:00] VITALS: BP 120/79; PULSE 94; O2SAT 96
[2017-07-01 21:02] LABS: BASO % 0.7 %; BASO ABS # 0.05 K/uL (0-0.2); COMPLETE YES; EOS % 3.9 %; IG% 0.3 %; LARGE PLATELETS 1+; LYMPH % 40.7 %; LYMPH ABS # 3.12 K/uL (1.2-3.4); MONO % 11.3 %; NEUT % 43.1 %
[2017-07-10] MEDS ORDERED: BCTRO (16:02)
[2017-07-10] MEDS ORDERED: SALI0.6510 (16:02)
[2017-07-13] MEDS ORDERED: TRAZ1TAB52 PO (20:24)
== END 2017-07-01 20:00 | disposition home or self-care (01) ==
LOC: EDBD 18:45 → C.EDA 18:47
DX: R07.89 Other chest pain (principal); J45.909 Unspecified asthma, uncomplicated; F41.9 Anxiety disorder, unspecified; J44.9 Chronic obstructive pulmonary disease, unspecified; E03.9 Hypothyroidism, unspecified; I48.0 Paroxysmal atrial fibrillation; D69.6 Thrombocytopenia, unspecified; I27.2 Other secondary pulmonary hypertension; K86.1 Other chronic pancreatitis; Z83.3 Family history of diabetes mellitus; Z82.49 Family history of ischemic heart disease and other diseases of the circulatory system; Z80.9 Family history of malignant neoplasm, unspecified; F17.210 Nicotine dependence, cigarettes, uncomplicated

== ENCOUNTER 2017-07-07 15:55 | Inpatient (IN) | payer OTHER ==
[~2017-07-07] VITALS: Ht 165.1 cm; Wt 68.9 kg
--- NOTE | 2017-07-07 16:02 | EMERGENCY ROOM VISIT NOTE ---
History First contact with patient: 15:54 Chief Complaint: VOMITING Stated Complaint: VOMITING BLOOD History of Present Illness The patient is a 51 year old male with a history of cirrhosis and esophageal varices who presents to the Emergency Room via EMS with complaints of coughing up blood x 2 days. He notes that three days prior he started to suffer from black stools. Then two days prior he started to cough up a dark red/ clotted mucus. He states that he was relatively pain free until this morning when he started with 9/10 chest pain that radiates from the substernal region down to the left arm. There is no specific aggravating or alleviating factors. He also c/o vague abdominal pain however is unable to characterize. Denies any nausea, diaphoresis or SOB. He called his PCP and an EMS was called. He has had five beers today. According to the patient he has a history of cardiac arrest and pulmonary emboli. Patient is not on blood thinner because of history of GI bleed as well as thrombocytopenia. Review of Systems a 10 point review of systems was completed and was negative aside from above Past Medical/Surgical History Medical Problems: (1) Alcohol dependence (2) Alcoholic cirrhosis of liver without ascites (3) Asthma, mild persistent (4) Chronic anxiety (5) Chronic pancreatitis (6) COPD, mild (7) Esophageal varices (8) Hypothyroidism (9) Paroxysmal atrial fibrillation (10) Portal vein thrombosis (11) Pulmonary HTN (12) Thrombocytopenia (13) Tobacco abuse Surgical Problems: (1) H/O colonoscopy (2) History of cholecystectomy (3) History of esophagogastroduodenoscopy (EGD) Family History Blood clots Diabetes mellitus MOTHER FH: CAD (coronary artery disease) FATHER BROTHER FH: leukemia AUNT Hypertension Social History Smoking Status: Current Every Day Smoker Alcohol Use: heavy Drug Use: none Marital Status: single Housing Status: lives with family Occupation Status: unemployed Current/Historical Medications Scheduled Trazodone Hcl (Desyrel), 150 MG PO HS Allergies Fentanyl Physical Exam Vital Signs Date Time Temp Pulse Resp B/P (MAP) Pulse Ox O2 Delivery O2 Flow Rate FiO2 07/07/17 18:04 84 18 120/81 97 Nasal Cannula 2.0 07/07/17 16:14 78 07/07/17 16:02 99 Nasal Cannula 2.0 07/07/17 16:02 36.8 75 18 118/83 99 Nasal Cannula 2.0 9/30/17 16:02 99 Nasal Cannula 2.0 07/07/17 16:00 99 Nasal Cannula 2.0 Physical Exam General: ambulatory, not in acute distress Skin: no rashes noted, no suspicious lesions, no areas of inflammations/ lacerations/ erythema noted CVS: S1/ S2 noted, RRR, no rubs/ murmurs noted, no cyanosis RVS: Clear throughout bilaterally, not in acute respiratory distress, no wheezing/ rales/ crackles noted ENT: no erythema/ injection/ ulcerations noted in the pharynx, no lymphadenopathy Neck: , inspection WNL, full ROM of neck ABD: BSx4, mild pain/ tenderness on palpation of lower quadrants, no organomegaly, negative murphys, psoas, Rovsing, CVA tenderness, minimal ascites , neg occult blood MSK: inspection of all limbs WNL, motor and sensation intact in all limbs, no swelling/ pain on palpation of joints NVS: PERRL, EOMI, sensation intact in all extremities, DTR +2 Lymph: No lymphadenopathy palpable Medical Decision & Procedures ER Provider Diagnostic Interpretation: CHEST ONE VIEW PORTABLE CLINICAL HISTORY: 51 years-old Male presenting with chest pain. TECHNIQUE: Portable upright AP view of the chest was obtained. COMPARISON: 07/01/2017. FINDINGS: Cardiomediastinal silhouette normal. Lungs and pleural spaces clear. Osseous structures normal. Upper abdomen normal. IMPRESSION: 1. No acute cardiopulmonary disease. ABD/PELVIS IV CONTRAST ONLY CLINICAL HISTORY: 51 years-old Male presenting with abdominal pain, hemoptysis vs vomiting blood. TECHNIQUE: Multidetector CT of the abdomen and pelvis was performed after the administration of intravenous contrast. IV contrast: 117 mL of Optiray 320. A dose lowering technique was used consistent with the principles of ALARA (as low as reasonably achievable). COMPARISON: 01/09/2017. CT DOSE (mGy.cm): The estimated cumulative dose is 579.00 mGy.cm. 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 Lung bases: Minimal dependent changes likely atelectasis. 4 mm solid triangular nodule at the right lung base (series 5 and 7), unchanged from prior. Normal heart size. No pericardial or pleural effusion. Liver: Density consistent with hepatic steatosis. Nodular morphology consistent with cirrhosis. Hypoattenuation along the gallbladder fossa may relate to prior traction injury. Focal 5 mm hypodense lesion in segment 7 at the dome (series 5 image 12), unchanged from prior and incompletely characterized on this single phase examination. Parenchymal calcification also noted in the right lobe. Patent hepatic vasculature. Biliary: No intrahepatic or extrahepatic biliary ductal dilatation. Gallbladder surgically absent. Pancreas: Pancreas divisum unchanged appearance of the hypodense 5 mm round lesion in the uncinate (series 6 image 135), likely small side branch ductal papillary mucinous neoplasm or mucinous cyst. Overall mild atrophy of the pancreatic parenchyma. Spleen: Normal. Adrenal glands: Few varices noted adjacent to the right adrenal gland. Adrenal glands normal. Kidneys and ureters: Normal. No hydronephrosis. Bladder: Normal. Pelvic organs: Prostate and seminal vesicles normal. Bowel: Few scattered diverticula noted in the sigmoid colon. Normal appendix. Small bowel mildly distended with lowering gas. Small duodenal diverticulum in the horizontal portion. No convincing evidence of bowel obstruction. Peritoneal cavity: No free fluid or intraperitoneal gas. Vasculature: Atherosclerosis of the normal caliber abdominal aorta. IVC patent. Retroperitoneal varices. Gastric and paraesophageal/esophageal varices. Splenorenal shunting. Lymph nodes: No enlarged lymph nodes in the abdomen or pelvis. Abdominal wall: Fat-containing of umbilical hernia. Musculoskeletal: Old fracture deformity of the left superior and inferior pubic rami. No convincing evidence of acute fracture. IMPRESSION: 1. Cirrhosis and hepatic steatosis. 2. Portal hypertension evidenced by varices. 3. Mild distention of small bowel without convincing evidence of obstruction. This could suggest ileus. Clinical follow-up suggested. 4. Indeterminate subcentimeter lesion in the segment 7 of the liver, unchanged from prior exam. 5. Stable subcentimeter cystic lesion in the pancreas, likely small side branch intraductal papillary mucinous neoplasm or mucinous cyst. 6. Solid 4 mm triangular pulmonary nodule at the right lung base. Follow-up per Megan Society 2017 recommendations below. Please refer to below summary of Fleischner Society 2017 recommendations for follow-up of incidental CT nodules (Zacarias Dietrich et al. Guidelines for management of incidental pulmonary nodules detected on CT images: From the Fleischner Society 2017. Radiology 2017; 284: 228-243.) SOLID NODULES Single nodule; size < 6 mm * Low risk patients: No routine follow-up * High risk patients: Optional CT at 12 months Single nodule; size 6-8 mm * Low risk patients: CT at 6-12 months, then consider CT at 18-24 months * High risk patients: CT at 6-12 months, then at 18-24 months Single nodule; size > 8 mm * Either low or high risk patients: Considered CT at 3 months, PET/CT, or tissue sampling Multiple nodules; size < 6 mm * Low risk patients: No routine follow up * High risk patients: Optional CT at 12 months Multiple nodules; size 6-8 mm * Low risk patients: CT at 3-6 months, then consider CT at 18-24 months * High risk patients: CT at 3-6 months, then at 18-24 months Multiple nodules; size > 8 mm * Low risk patients: CT at 3-6 months, then consider at 18-24 months * High risk patients: CT at 3-6 months, then at 18-24 months Note: These guidelines apply to incidental nodules. These guidelines do not apply to patients younger than 35 years, immunocompromised patients, or patients with cancer. * Low risk patients: Minimal or absent history of smoking and/or other known risk factors * High risk patients: History of smoking, exposure to other carcinogens, emphysema, fibrosis, upper lobe location, family history of lung cancer, etc. * If a nodule up to 8 mm is partly solid or is ground glass, further follow-up is required after 24 months to exclude possible slow growing adenocarcinoma. SUBSOLID NODULES Single ground-glass nodule * Nodule size < 6 mm: No routine follow-up * Nodule size > or = 6 mm: CT at 6-12 months to confirm persistence, then CT every 2 years until 5 years Single part-solid nodule * Nodule size < 6 mm: No routine follow-up * Nodules size > or = 6 mm: CT at 3-6 months to confirm persistence. If unchanged and solid component remains < 6 mm, annual CT should be performed for 5 years Multiple nodules * Nodule size < 6 mm: CT at 3-6 months. If stable, consider CT at 2 and 4 years. * Nodules size > or = 6 mm: CT at 3-6 months. Subsequent management based on the most suspicious nodule(s) Laboratory Results 07/07/17 16:25 Red Blood Count 4.88, Mean Corpuscular Volume 95.5, Mean Corpuscular Hemoglobin 33.4, Mean Corpuscular Hemoglobin Concent 35.0, Mean Platelet Volume 12.0, Neutrophils (%) (Auto) 44.5, Lymphocytes (%) (Auto) 39.1, Monocytes (%) (Auto) 11.5, Eosinophils (%) (Auto) 3.9, Basophils (%) (Auto) 0.8, Neutrophils # (Auto ) 3.77, Lymphocytes # (Auto) 3.31, Monocytes # (Auto) 0.97, Eosinophils # (Auto ) 0.33, Basophils # (Auto) 0.07 07/07/17 16:25 Test 07/07/17 15:58 07/07/17 16:25 07/07/17 16:28 07/07/17 16:50 Creatine Kinase MB Ratio (0-3.0) White Blood Count 8.47 K/uL (4.8-10.8) Red Blood Count 4.88 M/uL (4.7-6.1) Hemoglobin 16.3 g/dL (14.0-18.0) Hematocrit 46.6 % (42-52) Mean Corpuscular Volume 95.5 fL (80-100) Mean Corpuscular Hemoglobin 33.4 pg (25-34) Mean Corpuscular Hemoglobin Concent 35.0 g/dl (32-36) Platelet Count 132 K/uL (130-400) Mean Platelet Volume 12.0 fL (7.4-10.4) Neutrophils (%) (Auto) 44.5 % Lymphocytes (%) (Auto) 39.1 % Monocytes (%) (Auto) 11.5 % Eosinophils (%) (Auto) 3.9 % Basophils (%) (Auto) 0.8 % Neutrophils # (Auto) 3.77 K/uL (1.4-6.5) Lymphocytes # (Auto) 3.31 K/uL (1.2-3.4) Monocytes # (Auto) 0.97 K/uL (0.11-0.59) Eosinophils # (Auto) 0.33 K/uL (0-0.5) Basophils # (Auto) 0.07 K/uL (0-0.2) RDW Standard Deviation 51.6 fL (36.4-46.3) RDW Coefficient of Variation 14.7 % (11.5-14.5) Immature Granulocyte % (Auto) 0.2 % Immature Granulocyte # (Auto) 0.02 K/uL (0.00-0.02) Prothrombin Time 12.1 SECONDS (9.0-12.0) Prothromb Time International Ratio 1.1 (0.9-1.1) Activated Partial Thromboplast Time 28.2 SECONDS (21.0-31.0) Partial Thromboplastin Ratio 1.1 Anion Gap 10.0 mmol/L (3-11) Est Creatinine Clear Calc Drug Dose 100.2 ml/min Estimated GFR () 122.2 Estimated GFR (Non- 105.5 BUN/Creatinine Ratio 3.2 (10-20) Calcium Level 8.4 mg/dl (8.5-10.1) Total Bilirubin 1.2 mg/dl (0.2-1) Aspartate Amino Transf (AST/SGOT) 58 U/L (15-37) Alanine Aminotransferase (ALT/SGPT) 32 U/L (12-78) Alkaline Phosphatase 114 U/L (45-117) Creatine Kinase MB 2.2 ng/ml (0.5-3.6) Troponin I < 0.015 ng/ml (0-0.045) Total Protein 7.3 gm/dl (6.4-8.2) Albumin 2.7 gm/dl (3.4-5.0) Globulin 4.6 gm/dl (2.5-4.0) Albumin/Globulin Ratio 0.6 (0.9-2) Ammonia 51.0 umol/L (11-32) Ethyl Alcohol mg/dL 243.0 mg/dl (0-3) Urine Color YELLOW Urine Appearance CLEAR (CLEAR) Urine pH 6.5 (4.5-7.5) Urine Specific [place] 1.011 (1.000-1.030) Urine Protein NEG (NEG) Urine Glucose (UA) NEG (NEG) Urine Ketones NEG (NEG) Urine Occult Blood NEG (NEG) Urine Nitrite NEG (NEG) Urine Bilirubin NEG (NEG) Urine Urobilinogen NEG (NEG) Urine Leukocyte Esterase NEG (NEG) Medications Administered Medications (Trade) Dose Ordered Sig/Justin Route Start Time Stop Time Status Last Admin Dose Admin Sodium Chloride 1,000 ml @ 999 mls/hr Q1H1M ONCE IV 07/07/17 16:15 07/07/17 17:15 DC 07/07/17 16:45 999 MLS/HR Pantoprazole Sodium 80 mg/ Dextrose 120 ml @ 480 mls/hr NOW ONCE IV 07/07/17 16:30 07/07/17 16:44 DC 07/07/17 16:53 480 MLS/HR Pantoprazole Sodium 40 mg/ Dextrose 100 ml @ 20 mls/hr Q5H ONCE IV 07/07/17 16:45 07/07/17 21:44 07/07/17 16:53 20 MLS/HR Morphine Sulfate (MoRPHine SULFATE INJ) 2 mg NOW STAT IV 07/07/17 16:59 07/07/17 17:00 DC 07/07/17 17:26 2 MG Medical Decision Differential diagnosis includes but is not limited to pneumonia, gastric ulcer, esophageal varices, phong maisha tear, pulmonary edema. This patient is presenting to us with acute onset chest pain along with hemoptysis. Considering his significant past medical history there was concern for both an UGI bleed despite a negative occult blood and PE. Protonix was administered empirically. A CTA PE did not reveal PE but CT abd did reflect portal hypertension as well as esophageal varices. Fortunately no anemia was noted on the CBC or any leukocytosis. A type and screen was completed in anticipation for potential low hgb. Troponin was negative which is reassuring as the patient's chest pain started at 0730 this am and unlikely cardiac in nature. Considering the patient's esophageal varices and concern that this is the source of patient's bleeding patient was started on protonix and patient was evaluated by hospitalist. Blood Pressure Screening Patient's blood pressure: Normal blood pressure Impression Primary Impression: Esophageal varices Additional Impressions: Vomiting blood Hemoptysis Departure Information Referrals Darrius Cr M.D. (MEDICAL) (PCP) Patient Instructions My [facility] Problem Qualifiers
[2017-07-07] MEDS ORDERED: SODIUM CHLORIDE 0.9% 1000ML 1,000 ML IV ONE (16:15)
[2017-07-07] MEDS ORDERED: PANTOprazole INJ 80 MG in DEXTROSE 5% 100ML IV ONE (16:30)
[2017-07-07 16:36] LABS: BASO % 0.8 %; BASO ABS # 0.07 K/uL (0-0.2); COMPLETE YES; EOS % 3.9 %; HEMATOCRIT 46.6 % (42-52); IG% 0.2 %; LYMPH % 39.1 %; LYMPH ABS # 3.31 K/uL (1.2-3.4); MEAN CELL VOLUME 95.5 fL (80-100); MEAN CORPUSCULAR HEMOGLOBIN 33.4 pg (25-34); MONO % 11.5 %; NEUT % 44.5 %; PLATELET COUNT 132 K/uL (130-400); RED BLOOD COUNT 4.88 M/uL (4.7-6.1); WHITE BLOOD COUNT 8.47 K/uL (4.8-10.8)
[2017-07-07] MEDS ORDERED: PANTOprazole INJ 40 MG in DEXTROSE 5% 100ML IV ONE (16:45)
[2017-07-07 16:57] LABS: ALT/SGPT 32 U/L (12-78); BLOOD UREA NITROGEN 2 mg/dl (7-18); BUN/CREATININE RATIO 3.2 (10-20); CALCIUM 8.4 mg/dl (8.5-10.1); CARBON DIOXIDE 22 mmol/L (21-32); CHLORIDE 112 mmol/L (98-107); CREATININE 0.75 mg/dl (0.60-1.40); GLUCOSE 80 mg/dl (70-99); POTASSIUM 3.5 mmol/L (3.5-5.1); SODIUM 144 mmol/L (136-145)
[2017-07-07] MEDS ORDERED: MoRPHine SULFATE 2 MG/ML CARP IV STA (16:59)
--- NOTE | 2017-07-07 17:01 | DIAGNOSTIC IMAGING REPORT ---
CHEST ONE VIEW PORTABLE CLINICAL HISTORY: 51 years-old Male presenting with chest pain. TECHNIQUE: Portable upright AP view of the chest was obtained. COMPARISON: 07/01/2017. FINDINGS: Cardiomediastinal silhouette normal. Lungs and pleural spaces clear. Osseous structures normal. Upper abdomen normal. IMPRESSION: 1. No acute cardiopulmonary disease. Electronically signed by: Jonathan Hart M.D. 07/07/2017 5:00 PM Dictated Date/Time: 07/07/2017 5:00 PM
[2017-07-07 17:02] LABS: ALB/GLOB RATIO 0.6 (0.9-2); ALKALINE PHOSPHATASE 114 U/L (45-117); AST/SGOT 58 U/L (15-37)
[2017-07-07 17:09] LABS: URINE APPEARANCE CLEAR (CLEAR); URINE BILIRUBIN NEG (NEG); URINE COLOR YELLOW; URINE NITRITE NEG (NEG); URINE PH 6.5 (4.5-7.5); URINE SPECIFIC GRAVITY 1.011 (1.000-1.030); UROBILINOGEN NEG (NEG); ZZUR CULT IF INDIC CLEAN CATCH NO
[2017-07-07 17:10] LABS: MANUAL MICROSCOPIC REQUIRED? NO; REVIEW REQ? NO
[2017-07-07 17:13] LABS: INR 1.1 (0.9-1.1); PARTIAL THROMBOPLASTIN RATIO 1.1; PROTHROMBIN TIME (PATIENT) 12.1 SECONDS (9.0-12.0)
[2017-07-07] MEDS ORDERED: OPTIRAY 320 IV PRN (18:00)
--- NOTE | 2017-07-07 18:10 | DIAGNOSTIC IMAGING REPORT ---
ABD/PELVIS IV CONTRAST ONLY CLINICAL HISTORY: 51 years-old Male presenting with abdominal pain, hemoptysis vs vomiting blood. TECHNIQUE: Multidetector CT of the abdomen and pelvis was performed after the administration of intravenous contrast. IV contrast: 117 mL of Optiray 320. A dose lowering technique was used consistent with the principles of ALARA (as low as reasonably achievable). COMPARISON: 01/09/2017. CT DOSE (mGy.cm): The estimated cumulative dose is 579.00 mGy.cm. FINDINGS: [employer] Corporal topogram: Unremarkable. Lung bases: Minimal dependent changes likely atelectasis. 4 mm solid triangular nodule at the right lung base (series 5 and 7), unchanged from prior. Normal heart size. No pericardial or pleural effusion. Liver: Density consistent with hepatic steatosis. Nodular morphology consistent with cirrhosis. Hypoattenuation along the gallbladder fossa may relate to prior traction injury. Focal 5 mm hypodense lesion in segment 7 at the dome (series 5 image 12), unchanged from prior and incompletely characterized on this single phase examination. Parenchymal calcification also noted in the right lobe. Patent hepatic vasculature. Biliary: No intrahepatic or extrahepatic biliary ductal dilatation. Gallbladder surgically absent. Pancreas: Pancreas divisum unchanged appearance of the hypodense 5 mm round lesion in the uncinate (series 6 image 135), likely small side branch ductal papillary mucinous neoplasm or mucinous cyst. Overall mild atrophy of the pancreatic parenchyma. Spleen: Normal. Adrenal glands: Few varices noted adjacent to the right adrenal gland. Adrenal glands normal. Kidneys and ureters: Normal. No hydronephrosis. Bladder: Normal. Pelvic organs: Prostate and seminal vesicles normal. Bowel: Few scattered diverticula noted in the sigmoid colon. Normal appendix. Small bowel mildly distended with lowering gas. Small duodenal diverticulum in the horizontal portion. No convincing evidence of bowel obstruction. Peritoneal cavity: No free fluid or intraperitoneal gas. Vasculature: Atherosclerosis of the normal caliber abdominal aorta. IVC patent. Retroperitoneal varices. Gastric and paraesophageal/esophageal varices. Splenorenal shunting. Lymph nodes: No enlarged lymph nodes in the abdomen or pelvis. Abdominal wall: Fat-containing of umbilical hernia. Musculoskeletal: Old fracture deformity of the left superior and inferior pubic rami. No convincing evidence of acute fracture. IMPRESSION: 1. Cirrhosis and hepatic steatosis. 2. Portal hypertension evidenced by varices. 3. Mild distention of small bowel without convincing evidence of obstruction. This could suggest ileus. Clinical follow-up suggested. 4. Indeterminate subcentimeter lesion in the segment 7 of the liver, unchanged from prior exam. 5. Stable subcentimeter cystic lesion in the pancreas, likely small side branch intraductal papillary mucinous neoplasm or mucinous cyst. 6. Solid 4 mm triangular pulmonary nodule at the right lung base. Follow-up per Megan Society 2017 recommendations below. Please refer to below summary of Fleischner Society 2017 recommendations for follow-up of incidental CT nodules (Zacarias Dietrich et al. Guidelines for management of incidental pulmonary nodules detected on CT images: From the Fleischner Society 2017. Radiology 2017; 284: 228-243.) SOLID NODULES Single nodule; size < 6 mm * Low risk patients: No routine follow-up * High risk patients: Optional CT at 12 months Single nodule; size 6-8 mm * Low risk patients: CT at 6-12 months, then consider CT at 18-24 months * High risk patients: CT at 6-12 months, then at 18-24 months Single nodule; size > 8 mm * Either low or high risk patients: Considered CT at 3 months, PET/CT, or tissue sampling Multiple nodules; size < 6 mm * Low risk patients: No routine follow up * High risk patients: Optional CT at 12 months Multiple nodules; size 6-8 mm * Low risk patients: CT at 3-6 months, then consider CT at 18-24 months * High risk patients: CT at 3-6 months, then at 18-24 months Multiple nodules; size > 8 mm * Low risk patients: CT at 3-6 months, then consider at 18-24 months * High risk patients: CT at 3-6 months, then at 18-24 months Note: These guidelines apply to incidental nodules. These guidelines do not apply to patients younger than 35 years, immunocompromised patients, or patients with cancer. * Low risk patients: Minimal or absent history of smoking and/or other known risk factors * High risk patients: History of smoking, exposure to other carcinogens, emphysema, fibrosis, upper lobe location, family history of lung cancer, etc. * If a nodule up to 8 mm is partly solid or is ground glass, further follow-up is required after 24 months to exclude possible slow growing adenocarcinoma. SUBSOLID NODULES Single ground-glass nodule * Nodule size < 6 mm: No routine follow-up * Nodule size > or = 6 mm: CT at 6-12 months to confirm persistence, then CT every 2 years until 5 years Single part-solid nodule * Nodule size < 6 mm: No routine follow-up * Nodules size > or = 6 mm: CT at 3-6 months to confirm persistence. If unchanged and solid component remains < 6 mm, annual CT should be performed for 5 years Multiple nodules * Nodule size < 6 mm: CT at 3-6 months. If stable, consider CT at 2 and 4 years. * Nodules size > or = 6 mm: CT at 3-6 months. Subsequent management based on the most suspicious nodule(s) Electronically signed by: Jonathan Hart M.D. 07/07/2017 6:08 PM Dictated Date/Time: 07/07/2017 5:57 PM
--- NOTE | 2017-07-07 18:17 | DIAGNOSTIC IMAGING REPORT ---
(CHEST FOR PE) ANGIO WITH CLINICAL HISTORY: 51 years-old Male presenting with hemoptysis, varices. TECHNIQUE: Multidetector CT angiography of the chest was performed after administration of intravenous contrast. 3-D volumetric and/or maximum intensity projection (MIP) images were subsequently reconstructed for review. IV contrast: 117 mL of Optiray 320. A dose lowering technique was used consistent with the principles of ALARA (as low as reasonably achievable). COMPARISON: 12/22/2016. CT DOSE (mGy.cm): The estimated cumulative dose is [address] abdomen and pelvis. FINDINGS: [employer] Operator topogram: Unremarkable. Pulmonary vasculature: The study is adequate for assessment of the pulmonary vascular tree. No filling defect within the pulmonary arteries to suggest embolus. Main pulmonary artery is not enlarged. No flattening of the interventricular septum. No intracardiac intracardiac filling defect. No reflux of contrast into the hepatic veins. Remaining chest: On soft tissue windows, prominent goiter. This extends into the superior mediastinum. Numerous tiny mediastinal lymph nodes. No hilar lymphadenopathy. Mild atherosclerosis of aortic arch. Normal heart size. No pericardial or pleural effusion. Hepatic steatosis. Cirrhotic morphology of the liver. Cholecystectomy clips. Upper abdominal varices including paraesophageal/esophageal varices. No hyperattenuation within the lumen of the esophagus or stomach to suggest active extravasation. On lung windows, paraseptal emphysema at the lung apices. 3 mm solid nodule in the right upper lobe (series 3 image 97). No other focal infiltrate. Airways patent. On bone windows, normal osseous structures. IMPRESSION: 1. No evidence of pulmonary embolus. No acute intrathoracic pathology. 2. 3 mm solid nodule in the right upper lobe. Follow-up per Megan Society 2017 recommendations below. 3. Paraesophageal and esophageal varices. No cyndee evidence of intraluminal hemorrhage. 4. Hepatic steatosis and cirrhosis. Please refer to below summary of Fleischner Society 2017 recommendations for follow-up of incidental CT nodules (H Kaur et al. Guidelines for management of incidental pulmonary nodules detected on CT images: From the Fleischner Society 2017. Radiology 2017; 284: 228-243.) SOLID NODULES Single nodule; size < 6 mm * Low risk patients: No routine follow-up * High risk patients: Optional CT at 12 months Single nodule; size 6-8 mm * Low risk patients: CT at 6-12 months, then consider CT at 18-24 months * High risk patients: CT at 6-12 months, then at 18-24 months Single nodule; size > 8 mm * Either low or high risk patients: Considered CT at 3 months, PET/CT, or tissue sampling Multiple nodules; size < 6 mm * Low risk patients: No routine follow up * High risk patients: Optional CT at 12 months Multiple nodules; size 6-8 mm * Low risk patients: CT at 3-6 months, then consider CT at 18-24 months * High risk patients: CT at 3-6 months, then at 18-24 months Multiple nodules; size > 8 mm * Low risk patients: CT at 3-6 months, then consider at 18-24 months * High risk patients: CT at 3-6 months, then at 18-24 months Note: These guidelines apply to incidental nodules. These guidelines do not apply to patients younger than 35 years, immunocompromised patients, or patients with cancer. * Low risk patients: Minimal or absent history of smoking and/or other known risk factors * High risk patients: History of smoking, exposure to other carcinogens, emphysema, fibrosis, upper lobe location, family history of lung cancer, etc. * If a nodule up to 8 mm is partly solid or is ground glass, further follow-up is required after 24 months to exclude possible slow growing adenocarcinoma. SUBSOLID NODULES Single ground-glass nodule * Nodule size < 6 mm: No routine follow-up * Nodule size > or = 6 mm: CT at 6-12 months to confirm persistence, then CT every 2 years until 5 years Single part-solid nodule * Nodule size < 6 mm: No routine follow-up * Nodules size > or = 6 mm: CT at 3-6 months to confirm persistence. If unchanged and solid component remains < 6 mm, annual CT should be performed for 5 years Multiple nodules * Nodule size < 6 mm: CT at 3-6 months. If stable, consider CT at 2 and 4 years. * Nodules size > or = 6 mm: CT at 3-6 months. Subsequent management based on the most suspicious nodule(s) Electronically signed by: Jonathan Hart M.D. 07/07/2017 6:16 PM Dictated Date/Time: 07/07/2017 6:09 PM
[2017-07-07] MEDS ORDERED: OCTREOTIDE IV BOLUS & DRIP IV STA (19:12)
[2017-07-07] MEDS ORDERED: GABAPENTIN 600 MG TAB PO SCH (19:15)
[2017-07-07] MEDS ORDERED: LORAZEPAM 2 MG/ML 1 ML VIAL IV PRN (19:15)
[2017-07-07] MEDS ORDERED: NITROGLYCERIN 0.4 MG SL PER TAB CHARGE SL PRN (19:15)
[2017-07-07] MEDS ORDERED: ACETAMINOPHEN 325 MG TAB PO PRN (19:15)
[2017-07-07] MEDS ORDERED: ONDANSETRON INJ 2 MG/ML 2 ML VIAL IV PRN (19:15)
[2017-07-07] MEDS ORDERED: MoRPHine SULFATE 2 MG/ML CARP IV PRN (19:30)
[2017-07-07 19:57] VITALS: BP 126/90; PULSE 90; TEMP 36.9; O2SAT 94
[2017-07-07] MEDS ORDERED: ALBUT/IPRATROP 3MG/0.5MG NEB 3 ML VIAL INH SCH (20:00)
[2017-07-07] MEDS ORDERED: ALBUT/IPRATROP 3MG/0.5MG NEB 3 ML VIAL INH PRN (20:00)
[2017-07-07 20:04] VITALS: BP 126/90; PULSE 90; TEMP 36.9; Ht 165.1 cm; Wt 68.9 kg
--- NOTE | 2017-07-07 20:05 | History and Physical ---
History & Physical Date & Time of Service: Jul 07, 2017 at 19:31 Chief Complaint: Vomiting Blood Primary Care Physician: Darrius Cr M.D. (MEDICAL) History of Present Illness Source: patient Patient is a 51 Yr male with PMH of Alcohol/Tobacco use disorder, Alcoholic Cirrhosis, Esophageal varices,Chronic pancreatitis, P.Afib, H/O PE, Insomnia and other comorbidities presents with history of Melena and hemoptysis since 2 days duration. He states he noticed at least 4-5 black tarry stools and today it is brown. Reports associated nausea, vomiting today and also noticed some hemoptysis. Reports developing generalized abdominal pain but predominantly in the RUQ and umbilical region, sharp, radiates to right side, increases with exertion, no relation with food, no relieving factors, constant pain which 9/10 severity. Also reports having chronic left sided chest pain since 3 years duration and had history of rib fractures previously. Reports having some SOB and cough intermittently. Had one episode of loose watery diarrhea today. Denies headache, dizziness, hematuria, fever, dysuria, weakness. Admits to drinking 1/2 case of beer daily and last drink was today. Denies any change in weight or appetite. Offers no other relevant history. Past Medical/Surgical History Medical Problems: (1) Alcohol dependence Status: Chronic (2) Alcoholic cirrhosis of liver without ascites Status: Chronic (3) Asthma, mild persistent Status: Chronic (4) Chronic anxiety Status: Chronic (5) Chronic pancreatitis Status: Chronic (6) COPD, mild Status: Chronic (7) Esophageal varices Status: Chronic (8) Hypothyroidism Status: Chronic (9) Paroxysmal atrial fibrillation Status: Chronic (10) Portal vein thrombosis Status: Chronic (11) Pulmonary HTN Status: Chronic (12) Thrombocytopenia Status: Chronic (13) Tobacco abuse Status: Chronic Surgical Problems: (1) H/O colonoscopy Status: Chronic (2) History of cholecystectomy Permanent Comment: 2009 Status: Chronic (3) History of esophagogastroduodenoscopy (EGD) Permanent Comment: 12/15/2014- Small varices. Erosive duodenitis. Status: Chronic Family History Blood clots Diabetes mellitus MOTHER FH: CAD (coronary artery disease) FATHER BROTHER FH: leukemia AUNT Hypertension Reviewed as above Social History Smoking Status: Current Every Day Smoker Alcohol Use: heavy Drug Use: none Marital Status: single Occupational Status: unemployed Immunizations History of Influenza Vaccine: Yes History of Tetanus Vaccine?: Yes History of Pneumococcal: Unknown Pneumococcal Date: February 21, 2010 History of Hepatitis B Vaccine: Unknown Hepatitis Immunization Date: Oct 12, 2009 Multi-Drug Resistant Organisms History of MDRO: No Allergies Coded Allergies: Fentanyl (Verified Allergy, Intermediate, RASH ALL OVER BODY, 07/07/17) ALL OVER BODY Home Medications Scheduled Trazodone Hcl (Desyrel), 150 MG PO HS Review of Systems See HPI for pertinent positives & negatives. A total of 10 systems reviewed and were otherwise negative. Physical Exam Vital Signs Date Time Temp Pulse Resp B/P (MAP) Pulse Ox O2 Delivery O2 Flow Rate FiO2 07/07/17 18:04 84 18 120/81 97 Nasal Cannula 2.0 07/07/17 16:14 78 07/07/17 16:02 99 Nasal Cannula 2.0 07/07/17 16:02 36.8 75 18 118/83 99 Nasal Cannula 2.0 07/07/17 16:02 99 Nasal Cannula 2.0 07/07/17 16:00 99 Nasal Cannula 2.0 General Appearance: WD/WN, no apparent distress Head: normocephalic, atraumatic Eyes: normal inspection, PERRL, EOMI ENT: normal ENT inspection, hearing grossly normal Neck: supple, trachea midline Respiratory/Chest: chest non-tender, lungs clear, normal breath sounds, no respiratory distress, + crackles (Left base) Cardiovascular: regular rate, rhythm, no edema, no murmur Abdomen/GI: normal bowel sounds, soft, + tenderness (Generalized), + distended Back: normal inspection Extremities/Musculoskelatal: normal inspection, no pedal edema Neurologic/Psych: 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 II-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 nml as tested, no motor/sensory deficits, alert, normal mood/affect, oriented x 3 Skin: normal color, warm/dry Diagnostics Laboratory Results Results Past 24 Hours Test 07/07/17 15:58 07/07/17 16:25 07/07/17 16:28 07/07/17 16:50 Range/Units Creatine Kinase MB Ratio 0-3.0 White Blood Count 8.47 4.8-10.8 K/uL Red Blood Count 4.88 4.7-6.1 M/uL Hemoglobin 16.3 14.0-18.0 g/dL Hematocrit 46.6 42-52 % Mean Corpuscular Volume 95.5 80-100 fL Mean Corpuscular Hemoglobin 33.4 25-34 pg Mean Corpuscular Hemoglobin Concent 35.0 32-36 g/dl Platelet Count 132 130-400 K/uL Mean Platelet Volume 12.0 7.4-10.4 fL Neutrophils (%) (Auto) 44.5 % Lymphocytes (%) (Auto) 39.1 % Monocytes (%) (Auto) 11.5 % Eosinophils (%) (Auto) 3.9 % Basophils (%) (Auto) 0.8 % Neutrophils # (Auto) 3.77 1.4-6.5 K/uL Lymphocytes # (Auto) 3.31 1.2-3.4 K/uL Monocytes # (Auto) 0.97 0.11-0.59 K/uL Eosinophils # (Auto) 0.33 0-0.5 K/uL Basophils # (Auto) 0.07 0-0.2 K/uL RDW Standard Deviation 51.6 36.4-46.3 fL RDW Coefficient of Variation 14.7 11.5-14.5 % Immature Granulocyte % (Auto) 0.2 % Immature Granulocyte # (Auto) 0.02 0.00-0.02 K/uL Prothrombin Time 12.1 9.0-12.0 SECONDS Prothromb Time International Ratio 1.1 0.9-1.1 Activated Partial Thromboplast Time 28.2 21.0-31.0 SECONDS Partial Thromboplastin Ratio 1.1 Sodium Level 144 136-145 mmol/L Potassium Level 3.5 3.5-5.1 mmol/L Chloride Level 112 98-107 mmol/L Carbon Dioxide Level 22 21-32 mmol/L Anion Gap 10.0 3-11 mmol/L Blood Urea Nitrogen 2 7-18 mg/dl Creatinine 0.75 0.60-1.40 mg/dl Est Creatinine Clear Calc Drug Dose 100.2 ml/min Estimated GFR () 122.2 Estimated GFR (Non- 105.5 BUN/Creatinine Ratio 3.2 10-20 Random Glucose 80 70-99 mg/dl Calcium Level 8.4 8.5-10.1 mg/dl Total Bilirubin 1.2 0.2-1 mg/dl Aspartate Amino Transf (AST/SGOT) 58 15-37 U/L Alanine Aminotransferase (ALT/SGPT) 32 12-78 U/L Alkaline Phosphatase 114 45-117 U/L Creatine Kinase MB 2.2 0.5-3.6 ng/ml Troponin I < 0.015 0-0.045 ng/ml Total Protein 7.3 6.4-8.2 gm/dl Albumin 2.7 3.4-5.0 gm/dl Globulin 4.6 2.5-4.0 gm/dl Albumin/Globulin Ratio 0.6 0.9-2 Ammonia 51.0 11-32 umol/L Ethyl Alcohol mg/dL 243.0 0-3 mg/dl Urine Color YELLOW Urine Appearance CLEAR CLEAR Urine pH 6.5 4.5-7.5 Urine Specific [place] 1.011 1.000-1.030 Urine Protein NEG NEG Urine Glucose (UA) NEG NEG Urine Ketones NEG NEG Urine Occult Blood NEG NEG Urine Nitrite NEG NEG Urine Bilirubin NEG NEG Urine Urobilinogen NEG NEG Urine Leukocyte Esterase NEG NEG Test 07/07/17 19:13 07/07/17 19:18 Range/Units Diagnostic Radiology CTA: 1. No evidence of pulmonary embolus. No acute intrathoracic pathology. 2. 3 mm solid nodule in the right upper lobe. Follow-up per Megan Society 2017 recommendations below. 3. Paraesophageal and esophageal varices. No cyndee evidence of intraluminal hemorrhage. 4. Hepatic steatosis and cirrhosis. CT ABD: 1. Cirrhosis and hepatic steatosis. 2. Portal hypertension evidenced by varices. 3. Mild distention of small bowel without convincing evidence of obstruction. This could suggest ileus. Clinical follow-up suggested. 4. Indeterminate subcentimeter lesion in the segment 7 of the liver, unchanged from prior exam. 5. Stable subcentimeter cystic lesion in the pancreas, likely small side branch intraductal papillary mucinous neoplasm or mucinous cyst. 6. Solid 4 mm triangular pulmonary nodule at the right lung base. Follow-up per Megan Society 2017 recommendations below. EKG EKG: Non specific T wave changes in anterior leads Impression Assessment and Plan Melena/Hemoptysis: Likely secondary to Varices: Admit in [place] H&H, Transfuse PRN Start IV Protonix, Octreotide ggt Start IV ceftriaxone empirically Blood cultures GI consulted CT ABD:showed cirrhosis and hepatic steatosis, Portal hypertension evidenced by varices and possible Ileus Other findings as above CTA:No PE. Paraesophageal and esophageal varices. No cyndee evidence of intraluminal hemorrhage. NPO for now Pain control Check lipase levels Alcohol Intoxication: Alcohol level:243 Start on Alcohol withdrawal protocol Gabapentin, Ativan PRN, Banana bag Chronic Chest Pain: EKG: Non specific T wave changes in anterior leads trend cardiac enzymes check ECHO H/O COPD: No signs of exacerbation Bronchodilators PRN H/O PE, P.afib: Currently in sinus, rate controlled No on any meds at home Alcoholic cirrhosis: Chronic elevation of ammonia levels: 51 today Not on any diuretics, BB, lactulose at home Tobacco use disorder: Nicotine patch Chronic pancreatitis: check lipase levels Insomnia: Continue Trazodone DVT Px: SCDs Code Status: Full Code Disposition: Monitor in Tele VTE Prophylaxis VTE Risk Assessment Done? Y/N: Yes Risk Level: Moderate
[2017-07-07] MEDS ORDERED: CEFTRIAXONE SOD INJ 1 GM in DEXTROSE 5% ADD-VANTAGE 50ML 50 ML IV SCH (20:30)
[2017-07-07] MEDS: POTASSIUM CHLR 10 MEQ / WTR 10 MEQ in PREMIXED WATER 100 ML IV SCH ×2 (20:33→21:46)
[2017-07-07] MEDS: MULTI-VITAMIN INFUSION INJ 10 ML, THIAMINE HCL INJ 100 MG, FoLIC ACID INJ 1 MG, MAG SUL... IV SCH ×5 (20:33)
[2017-07-07] MEDS: TRAZODONE HCL 50 MG TAB PO SCH (20:34)
[2017-07-07] MEDS: OCTREOTIDE ACETATE INJ 500 MCG in NSS 100ML IV SCH (20:34)
[2017-07-07 20:45] LABS: HEMATOCRIT 43.6 % (42-52)
[2017-07-07] MEDS: NICOTINE 14 MG/24 HR TDSY TD SCH (20:54)
[2017-07-07] MEDS ORDERED: OCTREOTIDE ACETATE INJ 100 MCG in SYRINGE 9 ML IV ONE (21:30)
[2017-07-07] MEDS: PANTOprazole INJ 40 MG in DEXTROSE 5% 100ML IV SCH (21:46)
[2017-07-07] MEDS ORDERED: GABAPENTIN 1200MG LOADING DOSE PO SCH (22:00)
[2017-07-07] MEDS: POTASSIUM CHLORIDE INJ 40 MEQ in SODIUM CHLORIDE 0.9% 1000ML 1,000 ML IV SCH (23:06)
[2017-07-08] VITALS (9 sets, daily range): BP systolic 96–122; BP diastolic 52–73; PULSE 68–85; TEMP 36.6–37.4; O2SAT 93–97
[2017-07-08 01:43] LABS: CKMB/CK RATIO 1.3 (0-3.0)
[2017-07-08] MEDS: PANTOprazole INJ 40 MG in DEXTROSE 5% 100ML IV SCH ×2 (02:45→07:41)
[2017-07-08 03:30] LABS: HEMATOCRIT 41.5 % (42-52); MEAN CELL VOLUME 97.4 fL (80-100); MEAN CORPUSCULAR HEMOGLOBIN 33.3 pg (25-34); MEAN CORPUSCULAR HGB CONC 34.2 g/dl (32-36); RED BLOOD COUNT 4.26 M/uL (4.7-6.1); WHITE BLOOD COUNT 5.68 K/uL (4.8-10.8)
[2017-07-08 03:42] LABS: MEAN PLATELET VOLUME 10.7 fL (7.4-10.4); PLATELET COUNT 99 K/uL (130-400)
[2017-07-08 05:17] LABS: BASO % 1.2 %; BASO ABS # 0.07 K/uL (0-0.2); COMPLETE YES; IG% 0.2 %; MONO % 13.6 %
[2017-07-08] MEDS: GABAPENTIN 600MG Q6H DOSE PO SCH ×2 (06:19→12:30)
[2017-07-08] MEDS: OCTREOTIDE ACETATE INJ 500 MCG in NSS 100ML IV SCH (07:41)
[2017-07-08] MEDS ORDERED: INFLUENZA VIRUS QUAD VACCINE 0.5 ML SYR IM. ONE (08:00)
[2017-07-08] MEDS ORDERED: PNEUMOCOCCAL POLYSACCHARIDES 25 MCG/0.5 ML VIAL/SYR IM. ONE (08:00)
[2017-07-08] MEDS ORDERED: INFLUENZA ADMINISTRATION CHARGE ONE (08:00)
[2017-07-08] MEDS ORDERED: PNEUMOCOCCAL ADMINISTRATION CHARGE ONE (08:00)
--- NOTE | 2017-07-08 08:59 | Progress Note ---
Internal Med Progress Note Date of Service: Jul 08, 2017. Provider Documentation: SUBJECTIVE: Seen and examine at bedside States abd pain is improving Denies Nausea, vomiting, hemoptysis, diarrhea, bleeding per rectum, SOB Has chronic chest pain No new complaints Labs pending OBJECTIVE: Vital Signs-as noted below Physical Exam: Vitals signs as noted above General Appearance:Moderately built and nourished, no apparent distress Head: normocephalic, Atraumatic Eyes: normal inspection, EOMI, PERRL Neck: supple, Trachea midline Respiratory/Chest: Normal breath sounds, CTA Chest: Tender to palpate Cardiovascular: S1, S2, No murmur Abdomen/GI:Soft, Non tender, Bowel sounds present Extremities/Musculoskelatal:normal inspection, no edema Neurologic/Psych:AAOX3, grossly no focal neurological deficits Skin: normal color, warm Lab data as noted below. ASSESSMENT & PLAN: Melena/Hemoptysis: Likely secondary to Varices: Baseline Hb around 15.0 Monitor H&H, Transfuse PRN Continue IV Protonix, Octreotide ggt Continue IV ceftriaxone Blood cultures pending GI consulted CT ABD:showed cirrhosis and hepatic steatosis, Portal hypertension evidenced by varices and possible Ileus Other findings as above CTA:No PE. Paraesophageal and esophageal varices. No cyndee evidence of intraluminal hemorrhage. NPO for now Pain control Lipase: wnl FOBT pending Labs pending Alcohol Intoxication: Alcohol level:243 Continue Alcohol withdrawal protocol Gabapentin, Ativan PRN, Banana bag Chronic Chest Pain: Likely musculoskeletal H/O trauma and rib fractures EKG: Non specific T wave changes in anterior leads trend cardiac enzymes ECHO pending H/O COPD: No signs of exacerbation Bronchodilators PRN H/O PE, P.afib: Currently in sinus, rate controlled No on any meds at home Poor candidate for anticoagulation Alcoholic cirrhosis: Chronic elevation of ammonia levels: 51 Not on any diuretics, BB, lactulose at home Tobacco use disorder: Nicotine patch Chronic pancreatitis: Lipase normal Insomnia: Continue Trazodone DVT Px: SCDs Code Status: Full Code Disposition: Monitor in Tele Vital Signs: Date Time Temp Pulse Resp B/P (MAP) Pulse Ox O2 Delivery O2 Flow Rate FiO2 07/08/17 07:32 36.6 68 17 108/66 (80) 95 Nasal Cannula 2.0 07/08/17 04:15 36.7 78 18 101/65 (77) 97 Nasal Cannula 2.0 07/08/17 04:00 Nasal Cannula 2.0 07/08/17 00:18 36.8 85 19 96/52 (67) 95 Nasal Cannula 2.0 07/08/17 00:00 Nasal Cannula 2.0 07/07/17 20:04 36.9 90 18 126/90 Nasal Cannula 2.0 07/07/17 19:57 36.9 90 18 126/90 (102) 94 Nasal Cannula 2.0 07/07/17 19:33 80 20 116/71 95 Nasal Cannula 2.0 07/07/17 18:04 84 18 120/81 97 Nasal Cannula 2.0 07/07/17 16:14 78 07/07/17 16:02 99 Nasal Cannula 2.0 07/07/17 16:02 36.8 75 18 118/83 99 Nasal Cannula 2.0 07/07/17 16:02 99 Nasal Cannula 2.0 07/07/17 16:00 99 Nasal Cannula 2.0 Lab Results: Results Past 24 Hours Test 07/07/17 15:58 07/07/17 16:25 07/07/17 16:28 07/07/17 16:50 Range/Units Creatine Kinase MB Ratio 0-3.0 White Blood Count 8.47 4.8-10.8 K/uL Red Blood Count 4.88 4.7-6.1 M/uL Hemoglobin 16.3 14.0-18.0 g/dL Hematocrit 46.6 42-52 % Mean Corpuscular Volume 95.5 80-100 fL Mean Corpuscular Hemoglobin 33.4 25-34 pg Mean Corpuscular Hemoglobin Concent 35.0 32-36 g/dl Platelet Count 132 130-400 K/uL Mean Platelet Volume 12.0 7.4-10.4 fL Neutrophils (%) (Auto) 44.5 % Lymphocytes (%) (Auto) 39.1 % Monocytes (%) (Auto) 11.5 % Eosinophils (%) (Auto) 3.9 % Basophils (%) (Auto) 0.8 % Neutrophils # (Auto) 3.77 1.4-6.5 K/uL Lymphocytes # (Auto) 3.31 1.2-3.4 K/uL Monocytes # (Auto) 0.97 0.11-0.59 K/uL Eosinophils # (Auto) 0.33 0-0.5 K/uL Basophils # (Auto) 0.07 0-0.2 K/uL RDW Standard Deviation 51.6 36.4-46.3 fL RDW Coefficient of Variation 14.7 11.5-14.5 % Immature Granulocyte % (Auto) 0.2 % Immature Granulocyte # (Auto) 0.02 0.00-0.02 K/uL Prothrombin Time 12.1 9.0-12.0 SECONDS Prothromb Time International Ratio 1.1 0.9-1.1 Activated Partial Thromboplast Time 28.2 21.0-31.0 SECONDS Partial Thromboplastin Ratio 1.1 Sodium Level 144 136-145 mmol/L Potassium Level 3.5 3.5-5.1 mmol/L Chloride Level 112 98-107 mmol/L Carbon Dioxide Level 22 21-32 mmol/L Anion Gap 10.0 3-11 mmol/L Blood Urea Nitrogen 2 7-18 mg/dl Creatinine 0.75 0.60-1.40 mg/dl Est Creatinine Clear Calc Drug Dose 100.2 ml/min Estimated GFR () 122.2 Estimated GFR (Non- 105.5 BUN/Creatinine Ratio 3.2 10-20 Random Glucose 80 70-99 mg/dl Calcium Level 8.4 8.5-10.1 mg/dl Total Bilirubin 1.2 0.2-1 mg/dl Aspartate Amino Transf (AST/SGOT) 58 15-37 U/L Alanine Aminotransferase (ALT/SGPT) 32 12-78 U/L Alkaline Phosphatase 114 45-117 U/L Creatine Kinase MB 2.2 0.5-3.6 ng/ml Troponin I < 0.015 0-0.045 ng/ml Total Protein 7.3 6.4-8.2 gm/dl Albumin 2.7 3.4-5.0 gm/dl Globulin 4.6 2.5-4.0 gm/dl Albumin/Globulin Ratio 0.6 0.9-2 Lipase 204 73-393 U/L Ammonia 51.0 11-32 umol/L Ethyl Alcohol mg/dL 243.0 0-3 mg/dl Urine Color YELLOW Urine Appearance CLEAR CLEAR Urine pH 6.5 4.5-7.5 Urine Specific [place] 1.011 1.000-1.030 Urine Protein NEG NEG Urine Glucose (UA) NEG NEG Urine Ketones NEG NEG Urine Occult Blood NEG NEG Urine Nitrite NEG NEG Urine Bilirubin NEG NEG Urine Urobilinogen NEG NEG Urine Leukocyte Esterase NEG NEG Test 07/07/17 20:21 07/08/17 01:15 07/08/17 03:19 07/08/17 04:44 Range/Units Hemoglobin 15.2 14.2 14.0-18.0 g/dL Hematocrit 43.6 41.5 42-52 % Vitamin B12 Level 805 211-911 pg/mL Folate 17.54 >5.38 ng/mL Total Creatine Kinase 143 39-308 U/L Creatine Kinase MB 1.9 0.5-3.6 ng/ml Creatine Kinase MB Ratio 1.3 0-3.0 Troponin I 0.023 0-0.045 ng/ml White Blood Count 5.68 4.8-10.8 K/uL Red Blood Count 4.26 4.7-6.1 M/uL Mean Corpuscular Volume 97.4 80-100 fL Mean Corpuscular Hemoglobin 33.3 25-34 pg Mean Corpuscular Hemoglobin Concent 34.2 32-36 g/dl Platelet Count 99 130-400 K/uL Mean Platelet Volume 10.7 7.4-10.4 fL Neutrophils (%) (Auto) 44.0 % Lymphocytes (%) (Auto) 37.0 % Monocytes (%) (Auto) 13.6 % Eosinophils (%) (Auto) 4.0 % Basophils (%) (Auto) 1.2 % Neutrophils # (Auto) 2.50 1.4-6.5 K/uL Lymphocytes # (Auto) 2.10 1.2-3.4 K/uL Monocytes # (Auto) 0.77 0.11-0.59 K/uL Eosinophils # (Auto) 0.23 0-0.5 K/uL Basophils # (Auto) 0.07 0-0.2 K/uL RDW Standard Deviation 54.0 36.4-46.3 fL RDW Coefficient of Variation 15.1 11.5-14.5 % Immature Granulocyte % (Auto) 0.2 % Immature Granulocyte # (Auto) 0.01 0.00-0.02 K/uL Microbiology Results 07/07/17 Blood Culture, Received Pending 07/07/17 Blood Culture, Received Pending
--- NOTE | 2017-07-08 09:36 | ECHOCARDIOGRAM REPORT ---
*NOTICE TO RECEIVING [employer] This information is strictly Confidential and protected under [place] law. [place] law prohibits you from making any further disclosure of this information unless further disclosure is expressly permitted by the written consent of the person to whom it pertains or is authorized by law. A general authorization for the release of medical or other information is not sufficient for this purpose. Hospital accepts no responsibility if the information is made available to any other person, INCLUDING THE PATIENT. Interpretation Summary * Name: ARLENE FOWLER Study Date: 07/08/2017 06:41 AM BP: 101/65 mmHg * Patient Location: C.2E\S\E205\S\1 HR: 73 * : 1965 (M/d/yyyy) Gender: Male Height: 65 in * Age: 51 yrs Ethnicity: CA Weight: 156 lb * Ordering Physician: Justin Cagle * Referring Physician: Self, Referred * Performed By: Cayden Shrestha RDCS * * Reason For Study: Chest pain * BSA: 1.8 m2 * Compared to prior study, there is no significant change. * -- Conclusions -- * The left ventricle is normal in size. * There is normal left ventricular wall thickness. * Left ventricular systolic function is normal. * The left ventricular wall motion is normal. * Flattened septum is consistent with RV pressure overload. * Ejection Fraction = 60-65%. * The right ventricle is severely dilated. * The right ventricular systolic function is moderate to severely reduced. * There is moderate tricuspid regurgitation. * Severe pulmonary hypertension is present Procedure Details * A complete two-dimensional transthoracic echocardiogram was performed (2D, M-mode, Doppler and color flow Doppler). * The study was technically adequate. Left Ventricle * The left ventricle is normal in size. * There is normal left ventricular wall thickness. * Left ventricular systolic function is normal. * Ejection Fraction = 60-65%. * The left ventricular wall motion is normal. * Flattened septum is consistent with RV pressure overload. Right Ventricle * The right ventricle is severely dilated. * The right ventricular systolic function is moderate to severely reduced. Atria * The left atrial size is normal. * The right atrium is severely dilated. * No ASD detected; PFO is not assessed. Mitral Valve * The mitral valve is normal. * There is no mitral valve stenosis. * There is mild mitral regurgitation. Tricuspid Valve * The tricuspid valve is normal. * There is no tricuspid stenosis. * There is moderate tricuspid regurgitation. Aortic Valve * The aortic valve is trileaflet. * No hemodynamically significant valvular aortic stenosis. * No aortic regurgitation is present. Pulmonic Valve * The pulmonic valve is not well visualized. Great Vessels * The aortic root is normal size. Pericardium/Pleural * There is no pericardial effusion. Great Vessels * Normal inferior vena cava diameter and respiratory variation suggests normal central venous pressure. MMode 2D Measurements and Calculations IVSd 0.66 cm IVSs 1.2 cm LVIDd 5.1 cm LVIDs 3.4 cm LVPWd 0.62 cm LVPWs 1.2 cm IVS/LVPW 1.1 FS 34.2 % EDV(Teich) 124.6 ml ESV(Teich) 46.2 ml EF(Teich) 62.9 % EDV(cubed) 133.8 ml ESV(cubed) 38.1 ml EF(cubed) 71.6 % % IVS thick 78.7 % % LVPW thick 98.5 % LV mass(C)d 107.3 grams LV mass(C)dI 60.3 grams/m\S\2 LV mass(C)s 129.7 grams LV mass(C)sI 72.9 grams/m\S\2 SV(Teich) 78.4 ml SI(Teich) 44.0 ml/m\S\2 SV(cubed) 95.7 ml SI(cubed) 53.8 ml/m\S\2 Ao root diam 2.8 cm Ao root area 6.3 cm\S\2 ACS 1.8 cm LA dimension 3.7 cm asc Aorta Diam 2.6 cm LA/Ao 1.3 LVOT diam 2.0 cm LVOT area 3.0 cm\S\2 LVAd ap4 26.5 cm\S\2 LVLd ap4 7.6 cm EDV(MOD-sp4) 75.7 ml LVAs ap4 14.2 cm\S\2 LVLs ap4 6.4 cm ESV(MOD-sp4) 26.6 ml ESV(sp4-el) 26.8 ml EF(MOD-sp4) 64.9 % LVAd ap2 26.3 cm\S\2 LVLd ap2 7.9 cm EDV(MOD-sp2) 74.5 ml LVAs ap2 13.6 cm\S\2 LVLs ap2 6.2 cm ESV(MOD-sp2) 26.0 ml EF(MOD-sp2) 65.1 % SV(MOD-sp4) 49.1 ml SI(MOD-sp4) 27.6 ml/m\S\2 SV(MOD-sp2) 48.5 ml SI(MOD-sp2) 27.2 ml/m\S\2 Doppler Measurements and Calculations MV E max ely 81.0 cm/sec MV A max ely 45.4 cm/sec MV E/A 1.8 MV dec time 0.22 sec Ao V2 max 133.8 cm/sec Ao max PG 7.2 mmHg Ao max PG (full) 2.7 mmHg TORY(V,A) 2.4 cm\S\2 TORY(V,D) 2.4 cm\S\2 LV V1 max PG 4.5 mmHg LV V1 max 105.9 cm/sec PA V2 max 114.4 cm/sec PA max PG 5.2 mmHg PA acc slope 905.0 cm/sec\S\2 PA acc time 0.08 sec TR max eyl 395.9 cm/sec PA pr(Accel) 42.6 mmHg
[2017-07-08 09:48] LABS: BUN/CREATININE RATIO 4.6 (10-20); CALCIUM 7.8 mg/dl (8.5-10.1); CREATININE 0.82 mg/dl (0.60-1.40); MAGNESIUM 1.9 mg/dl (1.8-2.4); POTASSIUM 4.4 mmol/L (3.5-5.1)
[2017-07-08 10:11] LABS: ALB/GLOB RATIO 0.6 (0.9-2); CKMB/CK RATIO 1.3 (0-3.0)
[2017-07-08 11:16] LABS: HEMATOCRIT 44.8 % (42-52)
--- NOTE | 2017-07-08 12:01 | Medical Consult ---
Consultation Note Date of Service Jul 08, 2017. Consultation Note HPI: 51 yo M with alcoholic cirrhosis and and alcoholic pancreatitis, also h/o PE and a fib now admit with hemoptysis. He has chronic upper abdominal pain, which is worse prior to admission. He denies hematemesis or recent h/o dark stool to me. He denies SOB or CP. He is actively drinking, with a serum alcohol level that was high on admission. On admission, VS unremarkable, Hgb WNL, BUN low. Past Medical/Surgical History Medical Problems: (1) Alcohol dependence Status: Chronic (2) Alcoholic cirrhosis of liver without ascites Status: Chronic (3) Asthma, mild persistent Status: Chronic (4) Chronic anxiety Status: Chronic (5) Chronic pancreatitis Status: Chronic (6) COPD, mild Status: Chronic (7) Esophageal varices Status: Chronic (8) Hypothyroidism Status: Chronic (9) Paroxysmal atrial fibrillation Status: Chronic (10) Portal vein thrombosis Status: Chronic (11) Pulmonary HTN Status: Chronic (12) Thrombocytopenia Status: Chronic (13) Tobacco abuse Status: Chronic Surgical Problems: (1) H/O colonoscopy Status: Chronic (2) History of cholecystectomy Permanent Comment: 2009 Status: Chronic (3) History of esophagogastroduodenoscopy (EGD) Permanent Comment: 12/15/2014- Small varices. Erosive duodenitis. Status: Chronic Family History Blood clots Diabetes mellitus MOTHER FH: CAD (coronary artery disease) FATHER BROTHER FH: leukemia AUNT Hypertension Reviewed as above Social History Smoking Status: Current Every Day Smoker Alcohol Use: heavy Drug Use: none Marital Status: single Occupational Status: unemployed Immunizations History of Influenza Vaccine: Yes History of Tetanus Vaccine?: Yes History of Pneumococcal: Unknown Pneumococcal Date: February 21, 2010 History of Hepatitis B Vaccine: Unknown Hepatitis Immunization Date: Oct 12, 2009 Multi-Drug Resistant Organisms History of MDRO: No Allergies Coded Allergies: Fentanyl (Verified Allergy, Intermediate, RASH ALL OVER BODY, 07/07/17) ALL OVER BODY Home Medications Scheduled Trazodone Hcl (Desyrel), 150 MG PO HS Review of Systems See HPI for pertinent positives & negatives. A total of 10 systems reviewed and were otherwise negative. Physical Ex - H&P Physical Exam Vital Signs Date Time Temp Pulse Resp B/P (MAP) Pulse Ox O2 Delivery O2 Flow Rate FiO2 07/08/17 12:02 36.7 73 16 106/71 (83) 93 Nasal Cannula 07/08/17 12:00 96 Nasal Cannula 2.0 07/08/17 08:00 95 Nasal Cannula 2.0 07/08/17 07:32 36.6 68 17 108/66 (80) 95 Nasal Cannula 2.0 07/08/17 04:15 36.7 78 18 101/65 (77) 97 Nasal Cannula 2.0 07/08/17 04:00 Nasal Cannula 2.0 07/08/17 00:18 36.8 85 19 96/52 (67) 95 Nasal Cannula 2.0 07/08/17 00:00 Nasal Cannula 2.0 07/07/17 20:04 36.9 90 18 126/90 Nasal Cannula 2.0 07/07/17 19:57 36.9 90 18 126/90 (102) 94 Nasal Cannula 2.0 07/07/17 19:33 80 20 116/71 95 Nasal Cannula 2.0 07/07/17 18:04 84 18 120/81 97 Nasal Cannula 2.0 07/07/17 16:14 78 07/07/17 16:02 99 Nasal Cannula 2.0 07/07/17 16:02 36.8 75 18 118/83 99 Nasal Cannula 2.0 07/07/17 16:02 99 Nasal Cannula 2.0 07/07/17 16:00 99 Nasal Cannula 2.0 General Appearance: WD/WN, no apparent distress. At his bedside, in an emesis basin, there is a large dark red blood clot surrounded by phlegm. 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, no motor/sensory deficits, alert, normal mood/affect, oriented x 3 Skin: normal color, warm/dry Rectal: Scant yellow brown stool Diagnostics - H&P Diagnostics Laboratory Results Results Past 24 Hours Test 07/07/17 15:58 9/30/17 16:25 07/07/17 16:28 07/07/17 16:50 Range/Units Creatine Kinase MB Ratio 0-3.0 White Blood Count 8.47 4.8-10.8 K/uL Red Blood Count 4.88 4.7-6.1 M/uL Hemoglobin 16.3 14.0-18.0 g/dL Hematocrit 46.6 42-52 % Mean Corpuscular Volume 95.5 80-100 fL Mean Corpuscular Hemoglobin 33.4 25-34 pg Mean Corpuscular Hemoglobin Concent 35.0 32-36 g/dl Platelet Count 132 130-400 K/uL Mean Platelet Volume 12.0 7.4-10.4 fL Neutrophils (%) (Auto) 44.5 % Lymphocytes (%) (Auto) 39.1 % Monocytes (%) (Auto) 11.5 % Eosinophils (%) (Auto) 3.9 % Basophils (%) (Auto) 0.8 % Neutrophils # (Auto) 3.77 1.4-6.5 K/uL Lymphocytes # (Auto) 3.31 1.2-3.4 K/uL Monocytes # (Auto) 0.97 0.11-0.59 K/uL Eosinophils # (Auto) 0.33 0-0.5 K/uL Basophils # (Auto) 0.07 0-0.2 K/uL RDW Standard Deviation 51.6 36.4-46.3 fL RDW Coefficient of Variation 14.7 11.5-14.5 % Immature Granulocyte % (Auto) 0.2 % Immature Granulocyte # (Auto) 0.02 0.00-0.02 K/uL Prothrombin Time 12.1 9.0-12.0 SECONDS Prothromb Time International Ratio 1.1 0.9-1.1 Activated Partial Thromboplast Time 28.2 21.0-31.0 SECONDS Partial Thromboplastin Ratio 1.1 Sodium Level 144 136-145 mmol/L Potassium Level 3.5 3.5-5.1 mmol/L Chloride Level 112 98-107 mmol/L Carbon Dioxide Level 22 21-32 mmol/L Anion Gap 10.0 3-11 mmol/L Blood Urea Nitrogen 2 7-18 mg/dl Creatinine 0.75 0.60-1.40 mg/dl Est Creatinine Clear Calc Drug Dose 100.2 ml/min Estimated GFR () 122.2 Estimated GFR (Non- 105.5 BUN/Creatinine Ratio 3.2 10-20 Random Glucose 80 70-99 mg/dl Calcium Level 8.4 8.5-10.1 mg/dl Total Bilirubin 1.2 0.2-1 mg/dl Aspartate Amino Transf (AST/SGOT) 58 15-37 U/L Alanine Aminotransferase (ALT/SGPT) 32 12-78 U/L Alkaline Phosphatase 114 45-117 U/L Creatine Kinase MB 2.2 0.5-3.6 ng/ml Troponin I < 0.015 0-0.045 ng/ml Total Protein 7.3 6.4-8.2 gm/dl Albumin 2.7 3.4-5.0 gm/dl Globulin 4.6 2.5-4.0 gm/dl Albumin/Globulin Ratio 0.6 0.9-2 Ammonia 51.0 11-32 umol/L Ethyl Alcohol mg/dL 243.0 0-3 mg/dl Urine Color YELLOW Urine Appearance CLEAR CLEAR Urine pH 6.5 4.5-7.5 Urine Specific [place] 1.011 1.000-1.030 Urine Protein NEG NEG Urine Glucose (UA) NEG NEG Urine Ketones NEG NEG Urine Occult Blood NEG NEG Urine Nitrite NEG NEG Urine Bilirubin NEG NEG Urine Urobilinogen NEG NEG Urine Leukocyte Esterase NEG NEG Test 07/07/17 19:13 07/07/17 19:18 Range/Units Diagnostic Radiology CTA: 1. No evidence of pulmonary embolus. No acute intrathoracic pathology. 2. 3 mm solid nodule in the right upper lobe. Follow-up per [employer] Society 2017 recommendations below. 3. Paraesophageal and esophageal varices. No cyndee evidence of intraluminal hemorrhage. 4. Hepatic steatosis and cirrhosis. CT ABD: 1. Cirrhosis and hepatic steatosis. 2. Portal hypertension evidenced by varices. 3. Mild distention of small bowel without convincing evidence of obstruction. This could suggest ileus. Clinical follow-up suggested. 4. Indeterminate subcentimeter lesion in the segment 7 of the liver, unchanged from prior exam. 5. Stable subcentimeter cystic lesion in the pancreas, likely small side branch intraductal papillary mucinous neoplasm or mucinous cyst. 6. Solid 4 mm triangular pulmonary nodule at the right lung base. Follow-up per Megan Society 2017 recommendations below. EKG EKG: Non specific T wave changes in anterior leads Impression - H&P Impression Assessment and Plan Hemoptysis - He has no evidence of GI bleed - his rectal exam is unremarkable, his BUN is not elevated, and pt denies any clinical symptoms that would suggest a diagnosis of GIB. Would d/c Protonix, Octreotide, and Rocephin. Would recommend pulmonary consult to consider bronch, given hemoptysis -- I will defer the need for this consultation to hospitalist. - Counselled on need for alcohol cessation, but he does not seem motivated to pursue this. - Will sign off. Please reconsult as needed - Can undergo outpt EGD to screen and prophylactically band varices - please arrange for outpt GI f/u upon discharge.
[2017-07-08] MEDS: POTASSIUM CHLORIDE INJ 40 MEQ in SODIUM CHLORIDE 0.9% 1000ML 1,000 ML IV SCH (12:31)
--- NOTE | 2017-07-08 15:07 | DIAGNOSTIC IMAGING REPORT ---
CHEST ONE VIEW PORTABLE HISTORY: 51 years-old Male chest pain acute atypical chest pain COMPARISON: Chest radiograph 07/07/2017 TECHNIQUE: Portable upright AP view of the chest FINDINGS: Cardiomediastinal and hilar silhouettes are within normal limits. No pneumothorax, pleural effusion or focal airspace consolidation. Bones of the chest appear grossly intact. IMPRESSION: No acute cardiopulmonary process. The above report was generated using voice recognition software. It may contain grammatical, syntax or spelling errors. Electronically signed by: Cosme Norris M.D. 07/08/2017 3:05 PM Dictated Date/Time: 07/08/2017 3:04 PM
--- NOTE | 2017-07-08 17:26 | Pulmonary Consultation ---
History General Date of Service: Jul 08, 2017. Stated Complaint: Hemoptysis HPI The patient is a 51 year old male who presents to [facility] with complaints of Hemoptysis. The patient's primary care provider is Darrius Cr M.D. (MEDICAL). Mr. Bradley a 51-year-old male with past medical history of alcohol abuse with alcoholic cirrhosis esophageal varices with history of chronic pancreatitis who presents with to the ER with complaints of 2 day history of dark tarry stool and coughing up blood. He denies any fevers, chills, chest pain, palpitations, shortness of breath or dyspnea on exertion. He did endorse generalized abdominal pain mostly in the right upper quadrant as sharp radiating to his right flank that is exacerbated with movement. He denied any relieving factors. He also complains of chronic left-sided chest pain secondary to rib fractures. Patient denies any weight loss, night sweats, change in appetite, sick contacts , recent travel or any known exposures to anyone with tuberculosis. He denies any orthopnea, paroxysmal nocturnal dyspnea or lower extremity swelling. He denies any recent abdominal girth or weight gain. Patient states that he is also having bleeding when he blows his nose. He is currently not on any anticoagulation. He drinks about a half a case of beer daily and his last drink was on the day of admission. He also carries the diagnosis of COPD and is on long-term oxygen therapy at 2 L. He is also a current tobacco user. Vital signs on admission temperature 36.8, pulse 75, respiratory rate 18, blood pressure 118/83, pulse oximetry 99% on 2 L nasal cannula. He was admitted for GI bleed and started on Protonix drip, octreotide and ceftriaxone. Patient reported to have episodes of cough with blood in sputum this is associated with epigastric pain. He denied any shortness of breath, lightheadedness, dizziness or nausea/vomiting at this time. He was seen by gastroenterology this afternoon who felt that bleeding was more likely to be pulmonary in origin. Pulmonary was consulted for further evaluation of hemoptysis. Review of Systems Constitutional: reports: as stated in HPI Eyes: reports: as stated in HPI ENT: reports: as stated in HPI, epistaxis Cardiovascular: reports: as stated in HPI Respiratory: reports: as stated in HPI Gastrointestinal: reports: as stated in HPI Genitourinary - Male: reports: as stated in HPI Musculoskeletal: reports: as stated in HPI Integumentary: reports: as stated in HPI Neurologic: reports: as stated in HPI Psychiatric: reports: as stated in HPI Endocrine: as stated in HPI Allergic / Immunologic: as stated in HPI All Other Symptoms All Other Systems: Reviewed and Negative Past Medical History Past Medical History: Alcohol dependence and use disorder Alcoholic cirrhosis, chronic pancreatitis, esophageal varices, portal vein thrombosis COPD, pulmonary hypertension, pulmonary embolism, tobacco use disorder Paroxysmal atrial fibrillation, hypothyroidism Anxiety disorder Past Surgical History: His history of cholecystectomy and history of EGD Family History Blood clots Diabetes mellitus MOTHER FH: CAD (coronary artery disease) FATHER BROTHER FH: leukemia AUNT Hypertension Social History Hx Tobacco Use In Past Year?: Yes Smoking Status: Current Every Day Smoker Alcohol: history of alcohol abuse Drug Use: none Marital status: single Occupational Status: unemployed Immunizations History of Influenza Vaccine: Yes History of Tetanus Vaccine?: Yes History of Pneumococcal: Unknown Pneumococcal Date: February 21, 2010 History of Hepatitis B Vaccine: Unknown Hepatitis Immunization Date: Oct 12, 2009 History of MDRO History of MDRO: No Allergies Coded Allergies: Fentanyl (Verified Allergy, Intermediate, RASH ALL OVER BODY, 07/07/17) ALL OVER BODY Current Medications Reported Home Medications Medications Dose Route/Sig Max Daily Dose Days Date Category Desyrel (Trazodone Hcl) 150 Mg Tab 150 Mg PO HS 03/06/17 Reported Physical Physical Exam Vital Signs: Date Time Temp Pulse Resp B/P (MAP) Pulse Ox O2 Delivery O2 Flow Rate FiO2 07/08/17 15:10 37.4 78 18 118/73 (88) 94 Nasal Cannula 2.0 07/08/17 12:02 36.7 73 16 106/71 (83) 93 Nasal Cannula 07/08/17 12:00 96 Nasal Cannula 2.0 07/08/17 08:00 95 Nasal Cannula 2.0 07/08/17 07:32 36.6 68 17 108/66 (80) 95 Nasal Cannula 2.0 07/08/17 04:15 36.7 78 18 101/65 (77) 97 Nasal Cannula 2.0 07/08/17 04:00 Nasal Cannula 2.0 07/08/17 00:18 36.8 85 19 96/52 (67) 95 Nasal Cannula 2.0 07/08/17 00:00 Nasal Cannula 2.0 07/07/17 20:04 36.9 90 18 126/90 Nasal Cannula 2.0 07/07/17 19:57 36.9 90 18 126/90 (102) 94 Nasal Cannula 2.0 07/07/17 19:33 80 20 116/71 95 Nasal Cannula 2.0 07/07/17 18:04 84 18 120/81 97 Nasal Cannula 2.0 07/07/17 16:14 78 07/07/17 16:02 99 Nasal Cannula 2.0 07/07/17 16:02 36.8 75 18 118/83 99 Nasal Cannula 2.0 07/07/17 16:02 99 Nasal Cannula 2.0 07/07/17 16:00 99 Nasal Cannula 2.0 General Appearance: WELL-APPEARING, WD/WN, NO APPARENT DISTRESS Head: NORMOCEPHALIC, ATRAUMATIC Eyes: PERRLA, NO DISCHARGE, EOMI ENT: epistaxsis present (right nose) Neck: NORMAL RANGE OF MOTION, NO TENDERNESS, TRACHEA MIDLINE, SUPPLE Respiratory: BREATH SOUNDS NORMAL, CLEAR TO AUSCULTATION, chest wall tenderness Cardiovasular: REGULAR RATE/RHYTHM, NORMAL S1S2, NO M/G/R Abdomen: NON TENDER, NORMAL BOWEL SOUNDS Back: NORMAL INSPECTION Upper Extremities: NO EDEMA, NO DEFORMITY, NORMAL ROM Lower Extremities: NO EDEMA, NO DEFORMITY, NORMAL ROM Pulses: dorsalis pedis (R), dorsalis pedis (L) (2+) Neuro: ALERT, ORIENTED x 3 Psychiatric: NORMAL AFFECT, NO SUICIDAL IDEATION, CONTRACTS FOR SAFETY Diagnostics Labs Results Past 24 Hours Test 07/07/17 15:58 07/07/17 16:25 07/07/17 16:28 07/07/17 16:50 Range/Units Creatine Kinase MB Ratio 0-3.0 White Blood Count 8.47 4.8-10.8 K/uL Red Blood Count 4.88 4.7-6.1 M/uL Hemoglobin 16.3 14.0-18.0 g/dL Hematocrit 46.6 42-52 % Mean Corpuscular Volume 95.5 80-100 fL Mean Corpuscular Hemoglobin 33.4 25-34 pg Mean Corpuscular Hemoglobin Concent 35.0 32-36 g/dl Platelet Count 132 130-400 K/uL Mean Platelet Volume 12.0 7.4-10.4 fL Neutrophils (%) (Auto) 44.5 % Lymphocytes (%) (Auto) 39.1 % Monocytes (%) (Auto) 11.5 % Eosinophils (%) (Auto) 3.9 % Basophils (%) (Auto) 0.8 % Neutrophils # (Auto) 3.77 1.4-6.5 K/uL Lymphocytes # (Auto) 3.31 1.2-3.4 K/uL Monocytes # (Auto) 0.97 0.11-0.59 K/uL Eosinophils # (Auto) 0.33 0-0.5 K/uL Basophils # (Auto) 0.07 0-0.2 K/uL RDW Standard Deviation 51.6 36.4-46.3 fL RDW Coefficient of Variation 14.7 11.5-14.5 % Immature Granulocyte % (Auto) 0.2 % Immature Granulocyte # (Auto) 0.02 0.00-0.02 K/uL Prothrombin Time 12.1 9.0-12.0 SECONDS Prothromb Time International Ratio 1.1 0.9-1.1 Activated Partial Thromboplast Time 28.2 21.0-31.0 SECONDS Partial Thromboplastin Ratio 1.1 Sodium Level 144 136-145 mmol/L Potassium Level 3.5 3.5-5.1 mmol/L Chloride Level 112 98-107 mmol/L Carbon Dioxide Level 22 21-32 mmol/L Anion Gap 10.0 3-11 mmol/L Blood Urea Nitrogen 2 7-18 mg/dl Creatinine 0.75 0.60-1.40 mg/dl Est Creatinine Clear Calc Drug Dose 100.2 ml/min Estimated GFR () 122.2 Estimated GFR (Non- 105.5 BUN/Creatinine Ratio 3.2 10-20 Random Glucose 80 70-99 mg/dl Calcium Level 8.4 8.5-10.1 mg/dl Total Bilirubin 1.2 0.2-1 mg/dl Aspartate Amino Transf (AST/SGOT) 58 15-37 U/L Alanine Aminotransferase (ALT/SGPT) 32 12-78 U/L Alkaline Phosphatase 114 45-117 U/L Creatine Kinase MB 2.2 0.5-3.6 ng/ml Troponin I < 0.015 0-0.045 ng/ml Total Protein 7.3 6.4-8.2 gm/dl Albumin 2.7 3.4-5.0 gm/dl Globulin 4.6 2.5-4.0 gm/dl Albumin/Globulin Ratio 0.6 0.9-2 Lipase 204 73-393 U/L Ammonia 51.0 11-32 umol/L Ethyl Alcohol mg/dL 243.0 0-3 mg/dl Urine Color YELLOW Urine Appearance CLEAR CLEAR Urine pH 6.5 4.5-7.5 Urine Specific Watson 1.011 1.000-1.030 Urine Protein NEG NEG Urine Glucose (UA) NEG NEG Urine Ketones NEG NEG Urine Occult Blood NEG NEG Urine Nitrite NEG NEG Urine Bilirubin NEG NEG Urine Urobilinogen NEG NEG Urine Leukocyte Esterase NEG NEG Test 07/07/17 20:21 07/08/17 01:15 07/08/17 03:19 07/08/17 09:14 Range/Units Hemoglobin 15.2 14.2 14.0-18.0 g/dL Hematocrit 43.6 41.5 42-52 % Vitamin B12 Level 805 211-911 pg/mL Folate 17.54 >5.38 ng/mL Total Creatine Kinase 143 135 39-308 U/L Creatine Kinase MB 1.9 1.7 0.5-3.6 ng/ml Creatine Kinase MB Ratio 1.3 1.3 0-3.0 Troponin I 0.023 0.017 0-0.045 ng/ml White Blood Count 5.68 4.8-10.8 K/uL Red Blood Count 4.26 4.7-6.1 M/uL Mean Corpuscular Volume 97.4 80-100 fL Mean Corpuscular Hemoglobin 33.3 25-34 pg Mean Corpuscular Hemoglobin Concent 34.2 32-36 g/dl Platelet Count 99 130-400 K/uL Mean Platelet Volume 10.7 7.4-10.4 fL Neutrophils (%) (Auto) 44.0 % Lymphocytes (%) (Auto) 37.0 % Monocytes (%) (Auto) 13.6 % Eosinophils (%) (Auto) 4.0 % Basophils (%) (Auto) 1.2 % Neutrophils # (Auto) 2.50 1.4-6.5 K/uL Lymphocytes # (Auto) 2.10 1.2-3.4 K/uL Monocytes # (Auto) 0.77 0.11-0.59 K/uL Eosinophils # (Auto) 0.23 0-0.5 K/uL Basophils # (Auto) 0.07 0-0.2 K/uL RDW Standard Deviation 54.0 36.4-46.3 fL RDW Coefficient of Variation 15.1 11.5-14.5 % Immature Granulocyte % (Auto) 0.2 % Immature Granulocyte # (Auto) 0.01 0.00-0.02 K/uL Sodium Level 144 136-145 mmol/L Potassium Level 4.4 3.5-5.1 mmol/L Chloride Level 112 98-107 mmol/L Carbon Dioxide Level 23 21-32 mmol/L Anion Gap 9.0 3-11 mmol/L Blood Urea Nitrogen 4 7-18 mg/dl Creatinine 0.82 0.60-1.40 mg/dl Est Creatinine Clear Calc Drug Dose 91.7 ml/min Estimated GFR () 117.8 Estimated GFR (Non- 101.7 BUN/Creatinine Ratio 4.6 10-20 Random Glucose 117 70-99 mg/dl Calcium Level 7.8 8.5-10.1 mg/dl Magnesium Level 1.9 1.8-2.4 mg/dl Total Bilirubin 2.2 0.2-1 mg/dl Aspartate Amino Transf (AST/SGOT) 58 15-37 U/L Alanine Aminotransferase (ALT/SGPT) 32 12-78 U/L Alkaline Phosphatase 116 45-117 U/L Ammonia 76.0 11-32 umol/L Total Protein 6.6 6.4-8.2 gm/dl Albumin 2.4 3.4-5.0 gm/dl Globulin 4.2 2.5-4.0 gm/dl Albumin/Globulin Ratio 0.6 0.9-2 Test 07/08/17 11:07 Range/Units Hemoglobin 14.8 14.0-18.0 g/dL Hematocrit 44.8 42-52 % Microbiology Results 07/07/17 Blood Culture, Received Pending 07/07/17 Blood Culture, Received Pending Diagnostic Radiology CHEST ONE VIEW PORTABLE 07/08/2017 HISTORY: 51 years-old Male chest pain acute atypical chest pain COMPARISON: Chest radiograph 07/07/2017 TECHNIQUE: Portable upright AP view of the chest FINDINGS: Cardiomediastinal and hilar silhouettes are within normal limits. No pneumothorax, pleural effusion or focal airspace consolidation. Bones of the chest appear grossly intact. IMPRESSION: No acute cardiopulmonary process. CHEST ONE VIEW [id number]/30/2017 CLINICAL HISTORY: 51 years-old Male presenting with chest pain. TECHNIQUE: Portable upright AP view of the chest was obtained. COMPARISON: 07/01/2017. FINDINGS: Cardiomediastinal silhouette normal. Lungs and pleural spaces clear. Osseous structures normal. Upper abdomen normal. IMPRESSION: 1. No acute cardiopulmonary disease. (CHEST FOR PE) ANGIO WITH 07/07/2017 CLINICAL HISTORY: 51 years-old Male presenting with hemoptysis, varices. TECHNIQUE: Multidetector CT angiography of the chest was performed after administration of intravenous contrast. 3-D volumetric and/or maximum intensity projection (MIP) images were subsequently reconstructed for review. IV contrast: 117 mL of Optiray 320. A dose lowering technique was used consistent with the principles of ALARA (as low as reasonably achievable). COMPARISON: 12/22/2016. CT DOSE (mGy.cm): The estimated cumulative dose is [address] abdomen and pelvis. FINDINGS: Vegetable Cook topogram: Unremarkable. Pulmonary vasculature: The study is adequate for assessment of the pulmonary vascular tree. No filling defect within the pulmonary arteries to suggest embolus. Main pulmonary artery is not enlarged. No flattening of the interventricular septum. No intracardiac intracardiac filling defect. No reflux of contrast into the hepatic veins. Remaining chest: On soft tissue windows, prominent goiter. This extends into the superior mediastinum. Numerous tiny mediastinal lymph nodes. No hilar lymphadenopathy. Mild atherosclerosis of aortic arch. Normal heart size. No pericardial or pleural effusion. Hepatic steatosis. Cirrhotic morphology of the liver. Cholecystectomy clips. Upper abdominal varices including paraesophageal/esophageal varices. No hyperattenuation within the lumen of the esophagus or stomach to suggest active extravasation. On lung windows, paraseptal emphysema at the lung apices. 3 mm solid nodule in the right upper lobe (series 3 image 97). No other focal infiltrate. Airways patent. On bone windows, normal osseous structures. IMPRESSION: 1. No evidence of pulmonary embolus. No acute intrathoracic pathology. 2. 3 mm solid nodule in the right upper lobe. Follow-up per Megan Society 2017 recommendations below. 3. Paraesophageal and esophageal varices. No cyndee evidence of intraluminal hemorrhage. 4. Hepatic steatosis and cirrhosis. ABD/PELVIS IV CONTRAST ONLY 07/07/2017 CLINICAL HISTORY: 51 years-old Male presenting with abdominal pain, hemoptysis vs vomiting blood. TECHNIQUE: Multidetector CT of the abdomen and pelvis was performed after the administration of intravenous contrast. IV contrast: 117 mL of Optiray 320. A dose lowering technique was used consistent with the principles of ALARA (as low as reasonably achievable). COMPARISON: 01/09/2017. CT DOSE (mGy.cm): The estimated cumulative dose is 579.00 mGy.cm. FINDINGS: Vegetable Cook topogram: Unremarkable. Lung bases: Minimal dependent changes likely atelectasis. 4 mm solid triangular nodule at the right lung base (series 5 and 7), unchanged from prior. Normal heart size. No pericardial or pleural effusion. Liver: Density consistent with hepatic steatosis. Nodular morphology consistent with cirrhosis. Hypoattenuation along the gallbladder fossa may relate to prior traction injury. Focal 5 mm hypodense lesion in segment 7 at the dome (series 5 image 12), unchanged from prior and incompletely characterized on this single phase examination. Parenchymal calcification also noted in the right lobe. Patent hepatic vasculature. Biliary: No intrahepatic or extrahepatic biliary ductal dilatation. Gallbladder surgically absent. Pancreas: Pancreas divisum unchanged appearance of the hypodense 5 mm round lesion in the uncinate (series 6 image 135), likely small side branch ductal papillary mucinous neoplasm or mucinous cyst. Overall mild atrophy of the pancreatic parenchyma. Spleen: Normal. Adrenal glands: Few varices noted adjacent to the right adrenal gland. Adrenal glands normal. Kidneys and ureters: Normal. No hydronephrosis. Bladder: Normal. Pelvic organs: Prostate and seminal vesicles normal. Bowel: Few scattered diverticula noted in the sigmoid colon. Normal appendix. Small bowel mildly distended with lowering gas. Small duodenal diverticulum in the horizontal portion. No convincing evidence of bowel obstruction. Peritoneal cavity: No free fluid or intraperitoneal gas. Vasculature: Atherosclerosis of the normal caliber abdominal aorta. IVC patent. Retroperitoneal varices. Gastric and paraesophageal/esophageal varices. Splenorenal shunting. Lymph nodes: No enlarged lymph nodes in the abdomen or pelvis. Abdominal wall: Fat-containing of umbilical hernia. Musculoskeletal: Old fracture deformity of the left superior and inferior pubic rami. No convincing evidence of acute fracture. IMPRESSION: 1. Cirrhosis and hepatic steatosis. 2. Portal hypertension evidenced by varices. 3. Mild distention of small bowel without convincing evidence of obstruction. This could suggest ileus. Clinical follow-up suggested. 4. Indeterminate subcentimeter lesion in the segment 7 of the liver, unchanged from prior exam. 5. Stable subcentimeter cystic lesion in the pancreas, likely small side branch intraductal papillary mucinous neoplasm or mucinous cyst. 6. Solid 4 mm triangular pulmonary nodule at the right lung base. Follow-up per Megan Society 2017 recommendations below. TTE 07/08/2017 * -- Conclusions -- * The left ventricle is normal in size. * There is normal left ventricular wall thickness. * Left ventricular systolic function is normal. * The left ventricular wall motion is normal. * Flattened septum is consistent with RV pressure overload. * Ejection Fraction = 60-65%. * The right ventricle is severely dilated. * The right ventricular systolic function is moderate to severely reduced. * There is moderate tricuspid regurgitation. * Severe pulmonary hypertension is present Impression Assessment and Plan ? Hemoptysis Pulmonary hypertension Nocturnal hypoxemia COPD Pulmonary nodule Tobacco use disorder Alcoholic cirrhosis Portal hypertension Thrombocytopenia Patient having episode of possible hemoptysis vs epistaxis in the setting of thrombocytopenia. Patient has basin at bedside and has cyndee blood mixed with sputum. His left nostril appears to have dried blood in it as well. I would recommend a ENT consult to further evaluate upper airway bleeding. Please provide NS nasal spray as this bleeding may be from dry and irritated nasal mucousa, He is currently hemodynamically stable and in no respiratory distress. He is saturating well on 2L NC. Chest imaging shows goiter, mild emphysematous changes with subcentimeter nodule in the RUL that should be followed within one year as outpatient as he is high risk with smoking history. Smoking cessation counseling given. Continue with nicotine patch. Continue with nebulizers I would give Tessalon Perles as a cough suppressant. Pulmonary hypertension most likely is most likely multifactorial in nature from underlying COPD, nocturnal hypoxemia and portal hypertension. GI is on board and following for cirrhosis, esophageal varices and portal hypertension. Continue to monitor hemoptysis with bedside basin so that it can be quantified. If ENT inspection in negative and hemotypsis continues, a bronchoscopy is warranted. All other medical problems per primary medical team. I appreciate the consult. Dr. Guerrero will be taking over pulmonary service tomorrow and will continue to follow. Advanced Directives Living Will: none
[2017-07-08] MEDS ORDERED: SODIUM CHLORIDE 0.65% NA SOLN 45 ML (OCEAN) PRN (17:45)
[2017-07-08] MEDS ORDERED: SODIUM CHLORIDE 0.65% NA SOLN 45 ML (OCEAN) ONE (17:45)
[2017-07-08 19:07] LABS: HEMATOCRIT 41.8 % (42-52)
[2017-07-08] MEDS: NICOTINE 14 MG/24 HR TDSY TD SCH (21:00)
[2017-07-08] MEDS: GABAPENTIN 600MG Q8H DOSE PO SCH (21:07)
[2017-07-08] MEDS: TRAZODONE HCL 50 MG TAB PO SCH (21:07)
[2017-07-08] MEDS: MULTI-VITAMIN INFUSION INJ 10 ML, THIAMINE HCL INJ 100 MG, FoLIC ACID INJ 1 MG, MAG SUL... IV SCH ×5 (21:08)
[2017-07-09] VITALS (7 sets, daily range): BP systolic 95–114; BP diastolic 52–69; PULSE 69–79; TEMP 36.6–37.9; O2SAT 94–98
[2017-07-09 03:50] LABS: ALB/GLOB RATIO 0.6 (0.9-2); BUN/CREATININE RATIO 10.5 (10-20); CALCIUM 7.5 mg/dl (8.5-10.1); CREATININE 0.77 mg/dl (0.60-1.40); MAGNESIUM 1.7 mg/dl (1.8-2.4); POTASSIUM 3.7 mmol/L (3.5-5.1)
[2017-07-09] MEDS ORDERED: MAGNESIUM SULFATE 1GM / D5W 1 GM in PREMIXED IN D5W 100 ML IV ONE (04:15)
[2017-07-09] MEDS: GABAPENTIN 600MG Q8H DOSE PO SCH ×2 (06:32→15:29)
--- NOTE | 2017-07-09 08:14 | Progress Note ---
Internal Med Progress Note Date of Service: Jul 09, 2017. Provider Documentation: SUBJECTIVE: Seen and examine at bedside Less Hemoptysis Denies CP/ABD pain today Also denies Nausea, vomiting, diarrhea, bleeding per rectum,SOB Has chronic chest pain No new complaints OBJECTIVE: Vital Signs-as noted below Physical Exam: Vitals signs as noted above General Appearance:Moderately built and nourished, no apparent distress Head: normocephalic, Atraumatic Eyes: normal inspection, EOMI, PERRL Neck: supple, Trachea midline Respiratory/Chest: Normal breath sounds, CTA Chest: Tender to palpate Cardiovascular: Irregularly Irregular, No murmur Abdomen/GI:Soft, Non tender, Bowel sounds present Extremities/Musculoskelatal:normal inspection, no edema Neurologic/Psych:AAOX3, grossly no focal neurological deficits Skin: normal color, warm Lab data as noted below. ASSESSMENT & PLAN: Hemoptysis Vs Epistaxis: No obvious source of GI Bleeding Baseline Hb around 15.0 Monitor H&H, Transfuse PRN HB stable IV Protonix, Octreotide ggt discontinued DC IV ceftriaxone Blood cultures: No growth to date Appreciate GI Input CT ABD:showed cirrhosis and hepatic steatosis, Portal hypertension evidenced by varices and possible Ileus Other findings as above CTA:No PE. Paraesophageal and esophageal varices. No cyndee evidence of intraluminal hemorrhage. Pain control Lipase: wnl Rectal exam normal as per GI Needs Out patient EGD to screen and prophylactically band varices Continue PPI for possible alcoholic gastritis Will request ENT eval to rule out causes for epistaxis May need bronchoscopy if Normal ENT eval Appreciate Pulmonary Input Alcohol Intoxication: Alcohol level:243 Continue Alcohol withdrawal protocol Gabapentin, Ativan PRN, Banana bag Chronic Chest Pain: Likely musculoskeletal H/O trauma and rib fractures EKG: Non specific T wave changes in anterior leads cardiac enzymes negative ECHO:The left ventricular wall motion is normal H/O COPD: No signs of exacerbation Bronchodilators PRN H/O PE, P.afib: rate controlled No on any meds at home Poor candidate for anticoagulation Alcoholic cirrhosis: Chronic elevation of ammonia levels: 51 Not on any diuretics, BB, lactulose at home Tobacco use disorder: Nicotine patch Chronic pancreatitis: Lipase normal Insomnia: Continue Trazodone DVT Px: SCDs Code Status: Full Code Disposition: Monitor in Tele Needs follow up with GI as outpatient for EGD and prophylactic band varices PROCEDURES: ECHO: * The left ventricle is normal in size. * There is normal left ventricular wall thickness. * Left ventricular systolic function is normal. * The left ventricular wall motion is normal. * Flattened septum is consistent with RV pressure overload. * Ejection Fraction = 60-65%. * The right ventricle is severely dilated. * The right ventricular systolic function is moderate to severely reduced. * There is moderate tricuspid regurgitation. * Severe pulmonary hypertension is present Vital Signs: Date Time Temp Pulse Resp B/P (MAP) Pulse Ox O2 Delivery O2 Flow Rate FiO2 07/09/17 08:13 36.9 75 18 112/58 (76) 96 07/09/17 08:00 96 Nasal Cannula 2.0 07/09/17 04:15 37.6 79 18 112/61 (78) 96 Nasal Cannula 2.0 07/09/17 04:00 Nasal Cannula 2.0 07/09/17 00:02 36.6 74 19 110/69 (83) 94 07/08/17 23:59 Nasal Cannula 2.0 07/08/17 20:00 Nasal Cannula 2.0 07/08/17 18:58 37.3 79 18 122/69 (86) 95 Nasal Cannula 1.5 07/08/17 16:00 97 Nasal Cannula 2.0 07/08/17 15:10 37.4 78 18 118/73 (88) 94 Nasal Cannula 2.0 07/08/17 12:02 36.7 73 16 106/71 (83) 93 Nasal Cannula 07/08/17 12:00 96 Nasal Cannula 2.0 Lab Results: Results Past 24 Hours Test 07/08/17 11:07 07/08/17 18:57 07/09/17 03:03 Range/Units Hemoglobin 14.8 14.0 14.5 14.0-18.0 g/dL Hematocrit 44.8 41.8 40.0 42-52 % Sodium Level 141 136-145 mmol/L Potassium Level 3.7 3.5-5.1 mmol/L Chloride Level 108 98-107 mmol/L Carbon Dioxide Level 25 21-32 mmol/L Anion Gap 8.0 3-11 mmol/L Blood Urea Nitrogen 8 7-18 mg/dl Creatinine 0.77 0.60-1.40 mg/dl Est Creatinine Clear Calc Drug Dose 97.6 ml/min Estimated GFR () 120.9 Estimated GFR (Non- 104.3 BUN/Creatinine Ratio 10.5 10-20 Random Glucose 101 70-99 mg/dl Calcium Level 7.5 8.5-10.1 mg/dl Magnesium Level 1.7 1.8-2.4 mg/dl Total Bilirubin 2.2 0.2-1 mg/dl Aspartate Amino Transf (AST/SGOT) 40 15-37 U/L Alanine Aminotransferase (ALT/SGPT) 27 12-78 U/L Alkaline Phosphatase 105 45-117 U/L Total Protein 5.8 6.4-8.2 gm/dl Albumin 2.1 3.4-5.0 gm/dl Globulin 3.7 2.5-4.0 gm/dl Albumin/Globulin Ratio 0.6 0.9-2
[2017-07-09] MEDS: PANTOprazole SOD 40 MG TAB PO SCH (08:38)
[2017-07-09] MEDS ORDERED: OXYMETAZOLINE HCL 0.05% NA SPR 15 ML BTL PRN (10:00)
[2017-07-09] MEDS: SODIUM CHLORIDE 0.65% NA SOLN 45 ML (OCEAN) SCH ×4 (10:18→20:30)
[2017-07-09] MEDS ORDERED: PANTOprazole INJ 40 MG in SYRINGE 0 ML IV SCH (11:00)
--- NOTE | 2017-07-09 11:16 | ENT CONSULTATION ---
DATE OF CONSULTATION: 07/09/2017 I have been asked by Dr. Cagle to evaluate this patient for possible epistaxis. HISTORY OF PRESENT ILLNESS: The patient is a 51-year-old male with a history of alcoholic cirrhosis and esophageal varices, who presented to the [facility] Emergency Room on 07/07/2017 with either hemoptysis or hematemesis for 2 days as well as melena. Despite this history, his hematocrit upon admission was 43.6. He states that intermittently he will spit out blood and cough out blood but has not had any anterior epistaxis. His hematocrit this morning is 40. He states that when he blows his nose, there will be blood-tinged mucus but no cyndee epistaxis. He does wear oxygen at home and has oxygen here as well which is not humidified. He denies any history of nasal airway obstruction. He denies any past history of epistaxis. ALLERGIES: FENTANYL. CURRENT MEDICATIONS: Neurontin, Protonix, multivitamin, trazodone, nicotine patch, DuoNebs, morphine p.r.n., Tylenol p.r.n., Zofran p.r.n., nitroglycerin p.r.n., lorazepam p.r.n. PAST MEDICAL HISTORY: 1. Alcoholism. 2. Alcoholic cirrhosis of the liver. 3. Esophageal varices. 4. Mild COPD. 5. Chronic pancreatitis. 6. Anxiety. 7. Hypothyroidism. 8. Atrial fibrillation. 9. Portal venous thrombosis. 10. Pulmonary hypertension. 11. Thrombocytopenia. PAST SURGICAL HISTORY: 1. Status post cholecystectomy. 2. Status post EGD and colonoscopy. FAMILY HISTORY: Noncontributory. SOCIAL HISTORY: The patient has a history of alcoholism and continues to drink. He also is a wdo-gwhh-cyp-day smoker and has done so for 35+ years. He is unemployed and lives with his family. He is single. REVIEW OF SYSTEMS: The patient currently denies any epistaxis. He has intermittently coughed out blood during his hospitalization. He does state that when he blows his nose, there is blood-stained mucus. He currently denies any abdominal pain. He denies any hematemesis or melena. PHYSICAL EXAMINATION: GENERAL: This is a middle-aged white male in no acute distress, who appears older than his stated age. He has oxygen via nasal cannula. This was removed. HEENT: The patient has very dry mucous membranes with a right anterior septal deviation. He has excoriated septal mucosa which is worse on the left hand side. There is no active bleeding. Oral cavity and oropharyngeal examination reveals no bloody postnasal drip and no mucosal lesions or masses. NECK: Reveals no lymphadenopathy or thyroid nodularity. NEUROLOGIC: Cranial nerves II-XII are grossly intact. The patient is awake and alert and oriented x3. After administration of topical lidocaine and Afrin to the left nasal cavity, fiberoptic nasopharyngolaryngoscopy was performed. The patient has excoriated nasal septal mucosa on the left hand side. There is no active bleeding. His nasopharynx, oropharynx, hypopharynx and larynx are all clear without any mucosal lesions or masses. IMPRESSION AND RECOMMENDATION: A 51-year-old male with a history of hematemesis versus hemoptysis. I have been asked to determine whether or not there is an ENT source of the bleeding. He certainly does have excoriation of his nasal septum bilaterally, which is worse on the left hand side. It is uncertain as to whether or not this is the reason why he has melena as I would expect that he would have active bleeding anteriorly before presenting with hematemesis, hemoptysis or melena. Nevertheless, I recommended moisturization with nasal saline 2 sprays in each nostril 4 times a day as well as mupirocin ointment applied to both nostrils twice daily. I have also ordered Afrin as needed if he has any anterior epistaxis. The patient should continue moisturization with nasal saline 2 sprays in each nostril twice daily, followed by mupirocin ointment twice daily indefinitely given his history of oxygen use at home. Also, you should consider moisturizing his oxygen both here in the hospital as well as at home. I will sign off on this consultation since there is no active bleeding, but if you have any questions regarding this patient's care, please do not hesitate to contact me.
--- NOTE | 2017-07-09 11:54 | PULMONARY PROGRESS NOTE ---
DATE: 07/09/2017 TIME: 10:20 a.m. SUBJECTIVE: The patient states he has not coughed up very much blood. He did have a little bit of blood earlier this morning. Unfortunately, it is not being kept for us. He denies any shortness of breath at rest. The patient indicates that he is short of breath with exertion. He wears oxygen at home at nighttime but generally not during the day. He did not cough during this exam. He was seen by Dr. Bowman this morning. There is no note yet in the chart. The patient states that Dr. Bowman found bleeding in the left nostril and that he believes this is the source of his coughing up blood. I have not seen the actual consult to confirm that however. The patient states that he has had pulmonary function testing in the past at [facility]. OBJECTIVE: GENERAL: The patient appears comfortable. He was in no distress. VITAL SIGNS: Temperature is 36.9. HEENT: Pupils were reactive. There was a modest amount of blood in the left nostril. Pharynx did not reveal any blood. Teeth were in poor repair. NECK: Palpation of the neck reveals no lymph nodes. HEART: Heart rate was 75 per minute. He has occasional to frequent extrasystole. Blood pressure 112/58. LUNGS: Auscultation of the lung cornejo revealed them to be clear. The breath sounds were better than expected, considering his history of COPD. No wheezing was heard. Saturation was 96% on 2 liters nasal cannula. ABDOMEN: Soft. Bowel sounds were present. There was no tenderness. EXTREMITIES: Showed no cyanosis, clubbing or edema. The patient's CAT scan was reviewed. He has a very tiny nodule in the right upper lung field, measuring 3 mm. No other intrathoracic pathology was noted. There was no evidence of pulmonary embolic disease. The patient did have an echocardiogram done. This reports normal ejection fraction of 60-65%. However, there was flattened septum consistent with right ventricular pressure overload. The right ventricle was severely dilated. Severe pulmonary hypertension was noted. Hemoglobin today is 14.5 with hematocrit of 40. This has been overall relatively stable. The admission hemoglobin was 16.3. Electrolytes today show sodium 141, potassium 3.7, chloride 108, bicarb 25. BUN was 8 with a creatinine of 0.77. AST today was 40. The AST had been 58 on admission. ALT today is 27. Total protein is low at 5.8. Albumin was low at 2.1. IMPRESSIONS: 1. Epistaxis. 2. Chronic obstructive pulmonary disease. 3. Pulmonary hypertension. 4. 3 mm right upper lobe pulmonary nodule. 5. Alcoholic cirrhosis. 6. Portal hypertension. COMMENTS AND RECOMMENDATIONS: The patient seems to be fairly stable. We are awaiting the official consult from Dr. Bowman according to the patient. He states Dr. Bowman felt the nose was the source of his bleeding. If so then, bronchoscopy would not be necessary. The patient seems to be stable from a respiratory perspective. He has much more pulmonary hypertension than I would suspect clinically. I do not know if that is a new diagnosis or not. As an outpatient, he probably should have pulmonary functions if they have not been done within the past 6 months. Likewise, he should have a followup CAT scan of the chest in 6-12 months. The patient told me that he is taking 2 inhalers at home. This is not listed on his med rec forms. One was ProAir. He could not tell me what the other one was. Based upon the degree of pulmonary hypertension, his overall pulmonary status likely should be reevaluated if it has not been done so recently. I spoke with the patient about smoking. He is quite insistent that he just cannot quit smoking and did not give too much suggestion that he would even consider trying. JAILYN
[2017-07-09 19:22] LABS: HEMATOCRIT 38.5 % (42-52)
[2017-07-09] MEDS: NICOTINE 14 MG/24 HR TDSY TD SCH (20:23)
[2017-07-09] MEDS: TRAZODONE HCL 50 MG TAB PO SCH (20:30)
[2017-07-09] MEDS: MULTI-VITAMIN INFUSION INJ 10 ML, THIAMINE HCL INJ 100 MG, FoLIC ACID INJ 1 MG, MAG SUL... IV SCH ×5 (20:30)
[2017-07-09] MEDS: MUPIROCIN 2% OINT 22 GM TUBE SCH (20:31)
[2017-07-10] MEDS: GABAPENTIN 600MG Q12H DOSE PO SCH ×2 (00:46→12:00)
[2017-07-10 00:47] VITALS: BP 101/55; PULSE 62; TEMP 36.8; O2SAT 95
[2017-07-10 03:58] VITALS: BP 107/59; PULSE 71; TEMP 36.6; O2SAT 96
[2017-07-10 06:07] LABS: HEMATOCRIT 41.6 % (42-52); MEAN CELL VOLUME 97.4 fL (80-100); MEAN CORPUSCULAR HEMOGLOBIN 33.7 pg (25-34); MEAN CORPUSCULAR HGB CONC 34.6 g/dl (32-36); MEAN PLATELET VOLUME 12.2 fL (7.4-10.4); PLATELET COUNT 91 K/uL (130-400); RED BLOOD COUNT 4.27 M/uL (4.7-6.1); WHITE BLOOD COUNT 7.13 K/uL (4.8-10.8)
[2017-07-10 06:42] LABS: BUN/CREATININE RATIO 11.8 (10-20); CALCIUM 8.2 mg/dl (8.5-10.1); CREATININE 0.61 mg/dl (0.60-1.40); MAGNESIUM 1.8 mg/dl (1.8-2.4); POTASSIUM 3.9 mmol/L (3.5-5.1)
[2017-07-10 07:36] VITALS: BP 102/57; PULSE 73; TEMP 36.7; O2SAT 93
[2017-07-10] MEDS: SODIUM CHLORIDE 0.65% NA SOLN 45 ML (OCEAN) SCH ×3 (07:44→14:32)
[2017-07-10] MEDS: PANTOprazole SOD 40 MG TAB PO SCH (08:36)
[2017-07-10] MEDS: MUPIROCIN 2% OINT 22 GM TUBE SCH (08:37)
[2017-07-10 09:38] VITALS: O2SAT 96
[2017-07-10 11:30] VITALS: BP 109/70; PULSE 82; TEMP 36.8; O2SAT 96
--- NOTE | 2017-07-10 11:57 | PULMONARY PROGRESS NOTE ---
DATE: 07/10/2017 DATE: 07/10/2017 TIME: 11:10 a.m. SUBJECTIVE: The patient states he feels well. He has not coughed up any blood for 2 days. He denies shortness of breath. I reviewed Dr. Bowman's consultation. The patient had indicated to me that Dr. Bowman felt the nasal bleed was the cause of his hemoptysis. His consult does not indicate that however. He does have excoriation of the nasal septum. However, he would have expected that he would have some anterior bleeding before presenting with hematemesis or hemoptysis. Thus, the source of the bleeding is not entirely clear. The patient tells me that he coughed up blood, about the size of a quarter 4-5 times. The history of black tarry stools, would suggest that it was a lot more blood in that. OBJECTIVE: GENERAL: The patient looks comfortable. He was cooperative, alert and oriented. VITAL SIGNS: Temperature is 36.7. EARS, NOSE, THROAT: Exam was negative. I did not see any blood in the nostril. HEART: Heart rate was 73 per minute. The rhythm was regular. LUNGS: [place] were clear bilaterally. The breath sounds were mildly diminished. EXTREMITIES: Showed no cyanosis, clubbing or edema. IMPRESSIONS: 1. Epistaxis -- rule out hemoptysis versus gastrointestinal bleeding. 2. Chronic obstructive pulmonary disease. 3. Pulmonary hypertension. 4. 3 mm right upper lobe nodule. 5. Alcoholic cirrhosis. 6. Portal hypertension. COMMENTS AND RECOMMENDATIONS: The patient seems stable. He has had no blood in 48 hours. The patient's hemoglobin has been stable. I spoke with the patient about bronchoscopy. He has no interest in doing this at present. I did explain to him that if his hemoptysis recurred we would definitively advise that he have a scope for completeness at that time. His CAT scan does not show any significant mass lesion that would be causing bleeding at present. He should have a follow-up CAT scan regarding the small lung nodule that was seen. RECOMMENDATIONS: We would suggest this CT Scan in about 6 months. Likewise, we would suggest outpatient pulmonary function testing. He seems stable from a pulmonary perspective. [facility]
--- NOTE | 2017-07-10 15:48 | Progress Note ---
Medicine Progress Note Date & Time of Visit: Jul 10, 2017 at 15:32. Subjective patient seen resting in bed, comfortable states he feels fine overall denies any recurrence of hemoptysis or hematemesis, or epistaxis denies any bleeding no other symptoms states he feels back to baseline and would like to be discharged today Objective Last 8 Hrs Date Time Temp Pulse Resp B/P (MAP) Pulse Ox O2 Delivery O2 Flow Rate FiO2 07/10/17 12:00 Nasal Cannula 2.0 07/10/17 11:30 36.8 82 19 109/70 (83) 96 Room Air 07/10/17 09:38 96 07/10/17 08:00 Nasal Cannula 2.0 07/10/17 07:36 36.7 73 19 102/57 (72) 93 Nasal Cannula 2.0 Physical Exam: General- oriented x 3, not in distress, speaks in sentences with no effort Head- atraumatic Eyes- EOMI, anicteric ENT- oropharynx clear Neck- supple, no JVD Lungs- clear breath sounds bilaterally, no rales/wheezes Heart- regular rhythm; no murmur, normal rate Abdomen- normal bowel sounds, soft, nontender Extremities- no pretibial edema, no calf tenderness Neuro- alert, oriented x 3; no gross focal deficits Skin- warm & dry Laboratory Results: Last 24 Hours Test 07/09/17 19:08 07/10/17 05:23 Hemoglobin 13.8 g/dL 14.4 g/dL Hematocrit 38.5 % 41.6 % White Blood Count 7.13 K/uL Red Blood Count 4.27 M/uL Mean Corpuscular Volume 97.4 fL Mean Corpuscular Hemoglobin 33.7 pg Mean Corpuscular Hemoglobin Concent 34.6 g/dl RDW Standard Deviation 50.7 fL RDW Coefficient of Variation 14.0 % Platelet Count 91 K/uL Mean Platelet Volume 12.2 fL Sodium Level 142 mmol/L Potassium Level 3.9 mmol/L Chloride Level 110 mmol/L Carbon Dioxide Level 25 mmol/L Anion Gap 7.0 mmol/L Blood Urea Nitrogen 7 mg/dl Creatinine 0.61 mg/dl Est Creatinine Clear Calc Drug Dose 123.2 ml/min Estimated GFR () 133.1 Estimated GFR (Non- 114.8 BUN/Creatinine Ratio 11.8 Random Glucose 90 mg/dl Calcium Level 8.2 mg/dl Magnesium Level 1.8 mg/dl Assessment & Plan 51 year old male with history of Alcoholism, Liver Cirrhosis with Esophageal Varices, Chronic Pancreatitis, Paroxysmal Atrial Fibrillation, PE not on anticoagulation HEMOPTYSIS LIKELY SECONDARY TO EPISTAXIS Hg stable around 14 CT chest: IMPRESSION: 1. No evidence of pulmonary embolus. No acute intrathoracic pathology. 2. 3 mm solid nodule in the right upper lobe. Follow-up per Megan Society 2017 recommendations below. 3. Paraesophageal and esophageal varices. No cyndee evidence of intraluminal hemorrhage. 4. Hepatic steatosis and cirrhosis. -- GI consulted, Dr. Palma no evidence of GI bleed at this time hematemesis unlikely Needs Out patient EGD to screen and prophylactically band varices - ENT consulted, Dr. Bowman Nasopharyngolaryngoscopy performed (+) bilateral septal excoriations L>R recommend Normal saline 2 sprays QID and Mupirocin BID indefinitely, humidify oxygen - Pulmonary consulted, Dr. Pal pulmonary source of hemoptysis felt not likely at this time recommend repeat CT chest in 6 months, outpatient Pulmonary Function Test Alcohol Intoxication Alcohol level:243 placed on alcohol withdrawal protocol for prevention of alcohol withdrawal -- no withdrawal symptoms Chronic Chest Pain: Likely musculoskeletal H/O trauma and rib fractures EKG: Non specific T wave changes in anterior leads cardiac enzymes negative ECHO:The left ventricular wall motion is normal H/O COPD: No signs of exacerbation Echo showing severe pulmonary hypertension -- ff up with Pulmonary Dr. Pal in 2 weeks H/O PE, P.afib: rate controlled No on any meds at home Poor candidate for anticoagulation Alcoholic cirrhosis: Chronic elevation of ammonia levels: 51 Not on any diuretics, BB, lactulose at home -- compensated -- advised regarding cessation of alcohol drinking Tobacco use disorder: Nicotine patch Chronic pancreatitis: Lipase normal Insomnia: Continue Trazodone DVT Px: SCDs Code Status: Full Code Disposition: D/C home ff up with PCP in 3-5 days PROCEDURES: ECHO: * The left ventricle is normal in size. * There is normal left ventricular wall thickness. * Left ventricular systolic function is normal. * The left ventricular wall motion is normal. * Flattened septum is consistent with RV pressure overload. * Ejection Fraction = 60-65%. * The right ventricle is severely dilated. * The right ventricular systolic function is moderate to severely reduced. * There is moderate tricuspid regurgitation. * Severe pulmonary hypertension is present Current Inpatient Medications: Current Inpatient Medications Medications (Trade) Dose Ordered Sig/Justin Route Start Time Stop Time Status Last Admin Dose Admin Ioversol (Optiray 320) 117 ml UD PRN IV 07/07/17 18:00 07/11/17 17:59 Acetaminophen (Tylenol Tab) 650 mg Q4H PRN PO 07/07/17 19:15 08/06/17 19:14 07/09/17 15:29 650 MG Ondansetron HCl (Zofran Inj) 4 mg Q6H PRN IV 07/07/17 19:15 08/06/17 19:14 Nitroglycerin (Nitrostat Tab) 0.4 mg UD PRN SL 07/07/17 19:15 08/06/17 19:14 Multivitamins 10 ml/Thiamine HCl 100 mg/Folic Acid 1 mg/Magnesium Sulfate 1 gm/ Sodium Chloride 1,013.2 ml @ 100 mls/ hr DAILY@2100 IV 07/07/17 21:00 08/06/17 20:59 07/09/17 20:30 100 MLS/HR Lorazepam (Ativan Inj) 1 mg ONE PRN IV 07/07/17 19:15 Morphine Sulfate (MoRPHine SULFATE INJ) 1 mg Q4H PRN IV 07/07/17 19:30 07/21/17 19:29 Trazodone HCl (Desyrel Tab) 150 mg HS PO 07/07/17 21:00 08/06/17 20:59 07/09/17 20:30 150 MG Nicotine (Nicoderm Cq 14MG Patch) 1 patch HS TD 07/07/17 21:00 08/06/17 20:59 Albuterol/ Ipratropium (Duoneb) 3 ml QIDR PRN INH 07/07/17 20:00 08/06/17 19:59 Gabapentin (Neurontin Tab) 600 mg Q24H PO 07/11/17 12:00 07/11/17 12:01 Pantoprazole Sodium (Protonix Tab) 40 mg QAM PO 07/09/17 09:00 08/08/17 08:59 07/10/17 08:36 40 MG Sodium Chloride (Graingers Nasal Braman) 2 sprays 4XDQ4H NA 07/09/17 10:00 08/08/17 09:59 07/10/17 11:26 2 SPRAYS Mupirocin (Bactroban 2% Oint) 1 appln BID NA 07/09/17 21:00 08/08/17 20:59 07/10/17 08:37 1 APPLN Oxymetazoline HCl (Afrin 0.05% Nasal Braman) 2 sprays 4XDQ4H PRN NA 07/09/17 10:00 08/08/17 09:59
[2017-07-10] MEDS ORDERED: SALI0.6510 (16:02)
[2017-07-10] MEDS ORDERED: BCTRO (16:02)
--- NOTE | 2017-07-10 16:10 | Discharge Instructions ---
Discharge Instructions Date of Service Jul 10, 2017. Admission Reason for Admission: Hemoptysis Discharge Discharge Diagnosis / Problem: HEMOPTYSIS LIKELY FROM NOSE BLEEDING Discharge Goals Goal(s): Diagnostic testing, Therapeutic intervention Activity Recommendations Activity Limitations: as noted below (INCREASE ACTIVITY GRADUALLY TOLERATED) Lifting Limitations: gradually increase as tolerated Exercise/Sports Limitations: gradually increase as tolerated . Instructions / Follow-Up Instructions / Follow-Up PLEASE REVIEW YOUR NEW MEDICATION LIST AND FOLLOW INSTRUCTIONS CAREFULLY. USE HUMIDIFIER FOR YOUR SUPPLEMENTAL OXYGEN (INFORM [facility] REGARDING THIS). DO NOT MANIPULATE YOUR NOSE. CALL YOUR PRIMARY CARE PHYSICIAN OR RETURN TO ER IMMEDIATELY IF WITH RECURRENCE OF SYMPTOMS OR NOSEBLEEDS. FOLLOW UP WITH DR. CLARK (ASSOCIATE OF DR. RUCKER) ON THURSDAY JULY 13, 2017 AT 10:45AM. FOLLOW UP WITH EAR, NOSE, THROAT SPECIALIST DR. RIVERA IN 1-2 WEEKS. FOLLOW UP WITH PAPER BAG MAKER DR. CALDERON IN 1-2 WEEKS. FOLLOW UP WITH GEAR MACHINE OPERATOR DR. QUARLES IN 2 WEEKS. Current Hospital Diet Patient's current hospital diet: Low Sodium Diet (2gm Na) Discharge Diet Recommended Diet: AHA Diet (Heart Healthy), Low Sodium Diet (2gm Na) Procedures Procedures Performed: NASOPHARYNGOLARYNGOSCOPY; CT SCAN OF THE CHEST Pending Studies Studies pending at discharge: yes List of pending studies: REPEAT CT SCAN OF THE CHEST IN 6 MONTHS Medical Emergencies . Who to Call and When: Medical Emergencies: If at any time you feel your situation is an emergency, please call 911 immediately. . Non-Emergent Contact Non-Emergency issues call your: Primary Care Provider Call Non-Emergent contact if: you have a fever, your pain is not controlled, your pain is worsening, you have any medication questions . . "Provider Documentation" section prepared by Jim Damian. . VTE Core Measure Inpt VTE Proph given/why not?: SCD's
[2017-07-10 16:14] VITALS: BP 109/70; PULSE 82; TEMP 36.8; O2SAT 96
--- NOTE | 2017-07-10 16:18 | Discharge Summary ---
Discharge Summary Date of Service Jul 10, 2017. Discharge Summary Admission Date: Jul 07, 2017 at 19:10 Discharge Date: Jul 10, 2017 Discharge Disposition: Home Principal Diagnosis: HEMOPTYSIS LIKELY SECONDARY TO EPISTAXIS Secondary Diagnoses/Problems: Please refer to hospital course below. Procedures: CT CHEST CLINICAL HISTORY: 51 years-old Male presenting with hemoptysis, varices. TECHNIQUE: Multidetector CT angiography of the chest was performed after administration of intravenous contrast. 3-D volumetric and/or maximum intensity projection (MIP) images were subsequently reconstructed for review. IV contrast: 117 mL of Optiray 320. A dose lowering technique was used consistent with the principles of ALARA (as low as reasonably achievable). COMPARISON: 12/22/2016. CT DOSE (mGy.cm): The estimated cumulative dose is [address] abdomen and pelvis. 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 Pulmonary vasculature: The study is adequate for assessment of the pulmonary vascular tree. No filling defect within the pulmonary arteries to suggest embolus. Main pulmonary artery is not enlarged. No flattening of the interventricular septum. No intracardiac intracardiac filling defect. No reflux of contrast into the hepatic veins. Remaining chest: On soft tissue windows, prominent goiter. This extends into the superior mediastinum. Numerous tiny mediastinal lymph nodes. No hilar lymphadenopathy. Mild atherosclerosis of aortic arch. Normal heart size. No pericardial or pleural effusion. Hepatic steatosis. Cirrhotic morphology of the liver. Cholecystectomy clips. Upper abdominal varices including paraesophageal/esophageal varices. No hyperattenuation within the lumen of the esophagus or stomach to suggest active extravasation. On lung windows, paraseptal emphysema at the lung apices. 3 mm solid nodule in the right upper lobe (series 3 image 97). No other focal infiltrate. Airways patent. On bone windows, normal osseous structures. IMPRESSION: 1. No evidence of pulmonary embolus. No acute intrathoracic pathology. 2. 3 mm solid nodule in the right upper lobe. Follow-up per Megan Society 2017 recommendations below. 3. Paraesophageal and esophageal varices. No cyndee evidence of intraluminal hemorrhage. 4. Hepatic steatosis and cirrhosis. Please refer to below summary of Fleischner Society 2017 recommendations for follow-up of incidental CT nodules (H Kaur et al. Guidelines for management of incidental pulmonary nodules detected on CT images: From the Fleischner Society 2017. Radiology 2017; 284: 228-243.) SOLID NODULES Single nodule; size < 6 mm * Low risk patients: No routine follow-up * High risk patients: Optional CT at 12 months Single nodule; size 6-8 mm * Low risk patients: CT at 6-12 months, then consider CT at 18-24 months * High risk patients: CT at 6-12 months, then at 18-24 months Single nodule; size > 8 mm * Either low or high risk patients: Considered CT at 3 months, PET/CT, or tissue sampling Multiple nodules; size < 6 mm * Low risk patients: No routine follow up * High risk patients: Optional CT at 12 months Multiple nodules; size 6-8 mm * Low risk patients: CT at 3-6 months, then consider CT at 18-24 months * High risk patients: CT at 3-6 months, then at 18-24 months Multiple nodules; size > 8 mm * Low risk patients: CT at 3-6 months, then consider at 18-24 months * High risk patients: CT at 3-6 months, then at 18-24 months Note: These guidelines apply to incidental nodules. These guidelines do not apply to patients younger than 35 years, immunocompromised patients, or patients with cancer. * Low risk patients: Minimal or absent history of smoking and/or other known risk factors * High risk patients: History of smoking, exposure to other carcinogens, emphysema, fibrosis, upper lobe location, family history of lung cancer, etc. * If a nodule up to 8 mm is partly solid or is ground glass, further follow-up is required after 24 months to exclude possible slow growing adenocarcinoma. SUBSOLID NODULES Single ground-glass nodule * Nodule size < 6 mm: No routine follow-up * Nodule size > or = 6 mm: CT at 6-12 months to confirm persistence, then CT every 2 years until 5 years Single part-solid nodule * Nodule size < 6 mm: No routine follow-up * Nodules size > or = 6 mm: CT at 3-6 months to confirm persistence. If unchanged and solid component remains < 6 mm, annual CT should be performed for 5 years Multiple nodules * Nodule size < 6 mm: CT at 3-6 months. If stable, consider CT at 2 and 4 years. * Nodules size > or = 6 mm: CT at 3-6 months. Subsequent management based on the most suspicious nodule(s) ABD/PELVIS IV CONTRAST ONLY CLINICAL HISTORY: 51 years-old Male presenting with abdominal pain, hemoptysis vs vomiting blood. TECHNIQUE: Multidetector CT of the abdomen and pelvis was performed after the administration of intravenous contrast. IV contrast: 117 mL of Optiray 320. A dose lowering technique was used consistent with the principles of ALARA (as low as reasonably achievable). COMPARISON: 01/09/2017. CT DOSE (mGy.cm): The estimated cumulative dose is 579.00 mGy.cm. 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 Lung bases: Minimal dependent changes likely atelectasis. 4 mm solid triangular nodule at the right lung base (series 5 and 7), unchanged from prior. Normal heart size. No pericardial or pleural effusion. Liver: Density consistent with hepatic steatosis. Nodular morphology consistent with cirrhosis. Hypoattenuation along the gallbladder fossa may relate to prior traction injury. Focal 5 mm hypodense lesion in segment 7 at the dome (series 5 image 12), unchanged from prior and incompletely characterized on this single phase examination. Parenchymal calcification also noted in the right lobe. Patent hepatic vasculature. Biliary: No intrahepatic or extrahepatic biliary ductal dilatation. Gallbladder surgically absent. Pancreas: Pancreas divisum unchanged appearance of the hypodense 5 mm round lesion in the uncinate (series 6 image 135), likely small side branch ductal papillary mucinous neoplasm or mucinous cyst. Overall mild atrophy of the pancreatic parenchyma. Spleen: Normal. Adrenal glands: Few varices noted adjacent to the right adrenal gland. Adrenal glands normal. Kidneys and ureters: Normal. No hydronephrosis. Bladder: Normal. Pelvic organs: Prostate and seminal vesicles normal. Bowel: Few scattered diverticula noted in the sigmoid colon. Normal appendix. Small bowel mildly distended with lowering gas. Small duodenal diverticulum in the horizontal portion. No convincing evidence of bowel obstruction. Peritoneal cavity: No free fluid or intraperitoneal gas. Vasculature: Atherosclerosis of the normal caliber abdominal aorta. IVC patent. Retroperitoneal varices. Gastric and paraesophageal/esophageal varices. Splenorenal shunting. Lymph nodes: No enlarged lymph nodes in the abdomen or pelvis. Abdominal wall: Fat-containing of umbilical hernia. Musculoskeletal: Old fracture deformity of the left superior and inferior pubic rami. No convincing evidence of acute fracture. IMPRESSION: 1. Cirrhosis and hepatic steatosis. 2. Portal hypertension evidenced by varices. 3. Mild distention of small bowel without convincing evidence of obstruction. This could suggest ileus. Clinical follow-up suggested. 4. Indeterminate subcentimeter lesion in the segment 7 of the liver, unchanged from prior exam. 5. Stable subcentimeter cystic lesion in the pancreas, likely small side branch intraductal papillary mucinous neoplasm or mucinous cyst. 6. Solid 4 mm triangular pulmonary nodule at the right lung base. Follow-up per Megan Society 2017 recommendations below. Please refer to below summary of Fleischner Society 2017 recommendations for follow-up of incidental CT nodules (H Kaur et al. Guidelines for management of incidental pulmonary nodules detected on CT images: From the Fleischner Society 2017. Radiology 2017; 284: 228-243.) SOLID NODULES Single nodule; size < 6 mm * Low risk patients: No routine follow-up * High risk patients: Optional CT at 12 months Single nodule; size 6-8 mm * Low risk patients: CT at 6-12 months, then consider CT at 18-24 months * High risk patients: CT at 6-12 months, then at 18-24 months Single nodule; size > 8 mm * Either low or high risk patients: Considered CT at 3 months, PET/CT, or tissue sampling Multiple nodules; size < 6 mm * Low risk patients: No routine follow up * High risk patients: Optional CT at 12 months Multiple nodules; size 6-8 mm * Low risk patients: CT at 3-6 months, then consider CT at 18-24 months * High risk patients: CT at 3-6 months, then at 18-24 months Multiple nodules; size > 8 mm * Low risk patients: CT at 3-6 months, then consider at 18-24 months * High risk patients: CT at 3-6 months, then at 18-24 months Note: These guidelines apply to incidental nodules. These guidelines do not apply to patients younger than 35 years, immunocompromised patients, or patients with cancer. * Low risk patients: Minimal or absent history of smoking and/or other known risk factors * High risk patients: History of smoking, exposure to other carcinogens, emphysema, fibrosis, upper lobe location, family history of lung cancer, etc. * If a nodule up to 8 mm is partly solid or is ground glass, further follow-up is required after 24 months to exclude possible slow growing adenocarcinoma. SUBSOLID NODULES Single ground-glass nodule * Nodule size < 6 mm: No routine follow-up * Nodule size > or = 6 mm: CT at 6-12 months to confirm persistence, then CT every 2 years until 5 years Single part-solid nodule * Nodule size < 6 mm: No routine follow-up * Nodules size > or = 6 mm: CT at 3-6 months to confirm persistence. If unchanged and solid component remains < 6 mm, annual CT should be performed for 5 years Multiple nodules * Nodule size < 6 mm: CT at 3-6 months. If stable, consider CT at 2 and 4 years. * Nodules size > or = 6 mm: CT at 3-6 months. Subsequent management based on the most suspicious nodule(s) Echo: * -- Conclusions -- * The left ventricle is normal in size. * There is normal left ventricular wall thickness. * Left ventricular systolic function is normal. * The left ventricular wall motion is normal. * Flattened septum is consistent with RV pressure overload. * Ejection Fraction = 60-65%. * The right ventricle is severely dilated. * The right ventricular systolic function is moderate to severely reduced. * There is moderate tricuspid regurgitation. * Severe pulmonary hypertension is present Consultations: GASTROENTEROLOGY, ENT, PULMONARY Pending Studies/Follow-Up: Please refer to hospital course below Medication Reconciliation New Medications: Mupirocin (Mupirocin) 66 Appln/22 Gm Oint 1 APPLN NA BID for 30 Days, #1 TUBE 2 Refills Saline ([place] Nasal [place]) 0.65 % Spr 2 SPRAYS NA QID for 30 Days, #1 BTL 2 Refills Continued Medications: Trazodone Hcl (Desyrel) 150 Mg Tab 150 MG PO HS, TAB Admission Information HPI (per Admitting provider): Patient is a 51 Yr male with PMH of Alcohol/Tobacco use disorder, Alcoholic Cirrhosis, Esophageal varices,Chronic pancreatitis, P.Afib, H/O PE, Insomnia and other comorbidities presents with history of Melena and hemoptysis since 2 days duration. He states he noticed at least 4-5 black tarry stools and today it is brown. Reports associated nausea, vomiting today and also noticed some hemoptysis. Reports developing generalized abdominal pain but predominantly in the RUQ and umbilical region, sharp, radiates to right side, increases with exertion, no relation with food, no relieving factors, constant pain which 9/10 severity. Also reports having chronic left sided chest pain since 3 years duration and had history of rib fractures previously. Reports having some SOB and cough intermittently. Had one episode of loose watery diarrhea today. Denies headache, dizziness, hematuria, fever, dysuria, weakness. Admits to drinking 1/2 case of beer daily and last drink was today. Denies any change in weight or appetite. Offers no other relevant history. 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 No evidence of pulmonary embolus. No acute intrathoracic pathology. 2. 3 mm solid nodule in the right upper lobe. Follow-up per Megan Society 2017 recommendations below. 3. Paraesophageal and esophageal varices. No cyndee evidence of intraluminal hemorrhage. 4. Hepatic steatosis and cirrhosis. -- GI consulted, Dr. Calderon no evidence of GI bleed at this time hematemesis unlikely Needs Out patient EGD to screen and prophylactically band varices ff up with GI in 2 weeks - ENT consulted, Dr. Bowman Nasopharyngolaryngoscopy performed (+) bilateral septal excoriations L>R recommend Normal saline 2 sprays QID and Mupirocin BID indefinitely, humidify oxygen ff up with ENT in 2 weeks - Pulmonary consulted, Dr. Pal pulmonary source of hemoptysis felt not likely at this time (+) 3mm right lung nodule recommend repeat CT chest in 6 months, outpatient Pulmonary Function Test ff up with Pulmonary in 2 week Alcohol Intoxication Alcohol level:243 placed on alcohol withdrawal protocol for prevention of alcohol withdrawal -- no withdrawal symptoms Chronic Chest Pain: Likely musculoskeletal H/O trauma and rib fractures EKG: Non specific T wave changes in anterior leads cardiac enzymes negative ECHO:The left ventricular wall motion is normal H/O COPD: No signs of exacerbation Echo showing severe pulmonary hypertension -- ff up with Pulmonary Dr. Pal in 2 weeks H/O PE, P.afib: rate controlled Not on any meds at home Poor candidate for anticoagulation Alcoholic cirrhosis: Chronic elevation of ammonia levels: 51 Not on any diuretics, BB, lactulose at home -- compensated -- advised regarding cessation of alcohol drinking Tobacco use disorder: Nicotine patch Chronic pancreatitis: Lipase normal Insomnia: Continue Trazodone Disposition: D/C home ff up with PCP in 3-5 days ff up with ENT, Pulmonary and GI in 2 weeks Total time spent on discharge = 35 minutes This includes examination of the patient, discharge planning, medication reconciliation, and communication with other providers. Discharge Instructions Discharge Instructions Date of Service Jul 10, 2017. Admission Reason for Admission: Hemoptysis Discharge Discharge Diagnosis / Problem: HEMOPTYSIS LIKELY FROM NOSE BLEEDING Discharge Goals Goal(s): Diagnostic testing, Therapeutic intervention Activity Recommendations Activity Limitations: as noted below (INCREASE ACTIVITY GRADUALLY TOLERATED) Lifting Limitations: gradually increase as tolerated Exercise/Sports Limitations: gradually increase as tolerated . Instructions / Follow-Up Instructions / Follow-Up PLEASE REVIEW YOUR NEW MEDICATION LIST AND FOLLOW INSTRUCTIONS CAREFULLY. USE HUMIDIFIER FOR YOUR SUPPLEMENTAL OXYGEN (INFORM [facility] REGARDING THIS). DO NOT MANIPULATE YOUR NOSE. CALL YOUR PRIMARY CARE PHYSICIAN OR RETURN TO ER IMMEDIATELY IF WITH RECURRENCE OF SYMPTOMS OR NOSEBLEEDS. FOLLOW UP WITH DR. CLARK (ASSOCIATE OF DR. RUCKER) ON THURSDAY JULY 13, 2017 AT 10:45AM. FOLLOW UP WITH EAR, NOSE, THROAT SPECIALIST DR. BOWMAN IN 1-2 WEEKS. FOLLOW UP WITH MEDICAL ADMINISTRATOR DR. CALDERON IN 1-2 WEEKS. FOLLOW UP WITH [employer] DR. PAL IN 2 WEEKS. Current Hospital Diet Patient's current hospital diet: Low Sodium Diet (2gm Na) Discharge Diet Recommended Diet: AHA Diet (Heart Healthy), Low Sodium Diet (2gm Na) Procedures Procedures Performed: NASOPHARYNGOLARYNGOSCOPY; CT SCAN OF THE CHEST Pending Studies Studies pending at discharge: yes List of pending studies: REPEAT CT SCAN OF THE CHEST IN 6 MONTHS
[2017-07-11] MEDS ORDERED: GABAPENTIN 600MG X1 DOSE PO SCH (12:00)
[2017-07-13] MEDS ORDERED: TRAZ1TAB52 PO (20:24)
== END 2017-07-10 16:25 | disposition home or self-care (01) | DRG 151 ==
LOC: EDBD 15:55 → C.EDB 15:56 → C.2E 19:10 → ENRESERV 19:19
PROVIDERS: ADMIT Internal Medicine; ATTEND Internal Medicine
DX: R04.0 Epistaxis (principal); R04.2 Hemoptysis; I85.10 Secondary esophageal varices without bleeding; K86.0 Alcohol-induced chronic pancreatitis; K70.30 Alcoholic cirrhosis of liver without ascites; F10.229 Alcohol dependence with intoxication, unspecified; Y90.8 Blood alcohol level of 240 mg/100 ml or more; D69.6 Thrombocytopenia, unspecified; R07.89 Other chest pain; J44.9 Chronic obstructive pulmonary disease, unspecified; R91.1 Solitary pulmonary nodule; I48.0 Paroxysmal atrial fibrillation; G47.00 Insomnia, unspecified; G47.36 Sleep related hypoventilation in conditions classified elsewhere; I07.1 Rheumatic tricuspid insufficiency; F17.200 Nicotine dependence, unspecified, uncomplicated; Z86.711 Personal history of pulmonary embolism; Z87.828 Personal history of other (healed) physical injury and trauma; Z82.49 Family history of ischemic heart disease and other diseases of the circulatory system; Z83.3 Family history of diabetes mellitus; Z80.6 Family history of leukemia; Z83.2 Family history of diseases of the blood and blood-forming organs and certain disorders involving the immune mechanism

== ENCOUNTER 2017-07-13 20:58 | Emergency (ER) | payer OTHER ==
[~2017-07-13] VITALS: Ht 165.1 cm; Wt 71.9 kg
[~2017-07-13 20:58] MED LIST changes: +BCTRO; -CHLO25CA10 PO; -CITA10TA4 PO; -FOLI1TAB7 PO; -MAGN400T6 PO; -MULT-506 PO; -PRLSR20 PO; +SALI0.6510; -THIA1TAB11 PO; +TRAZ1TAB52 PO
[2017-07-13 21:01] VITALS: TEMP 37.1; Ht 165.1 cm; Wt 71.9 kg
[2017-07-13] MEDS ORDERED: SODIUM CHLORIDE 0.9% 1000ML 1,000 ML IV STA ×2 (21:02→23:49)
--- NOTE | 2017-07-13 21:08 | EMERGENCY ROOM VISIT NOTE ---
History Report prepared by López: Ann Gerard Under the Supervision of: Dr. Andria Reis D.O. First contact with patient: 20:54 Chief Complaint: passed out Stated Complaint: POST CARDIAC ARREST History of Present Illness The patient is a 51 year old male who presents to the Emergency Room with complaints of constant chest pain beginning this afternoon. The patient states that he has a history of a heart attack 2 years ago and a history of seizures. He reports that this afternoon he remembers being at his friend's house when he began to feel chest pain and abdominal pain. He notes that he is still feeling the pain. The patient notes that he cannot remember what happened before the police found him. The patient complains of leg numbness that began with his chest pain. He denies any recent illness, falls, injury. He notes that he does drink alcohol and drank today. Per EMS the patient did have a pulse on arrival, was awake and talking. Police reported to them he was unresponsive and they did ~1 min of CPR and he woke up and seemed normal but c/o pain. No seizure like activity noted by police according to EMS and none in transport. Pt well known to the ER with frequent visits related to alcohol intoxication and comorbidities related to alcohol abuse. Recently admitted for hemoptysis and prior admissions for GI bleed. Source of History: patient Onset: this afternoon Position: chest Timing: constant Associated Symptoms: + abdominal pain, + numbness Note: He denies any recent illness, falls, injury. Review of Systems See HPI for pertinent positives & negatives. A total of 10 systems reviewed and were otherwise negative. Past Medical & Surgical Medical Problems: (1) Alcohol dependence (2) Alcoholic cirrhosis of liver without ascites (3) Asthma, mild persistent (4) Chronic anxiety (5) Chronic pancreatitis (6) COPD, mild (7) Esophageal varices (8) Hypothyroidism (9) Paroxysmal atrial fibrillation (10) Portal vein thrombosis (11) Pulmonary HTN (12) Thrombocytopenia (13) Tobacco abuse Surgical Problems: (1) H/O colonoscopy (2) History of cholecystectomy (3) History of esophagogastroduodenoscopy (EGD) Family History No pertinent family history stated. Social History Marital Status: Occupation Status: unemployed Current/Historical Medications Scheduled Mupirocin (Mupirocin), 1 APPLN NA BID Saline ([place] [employer]), 2 SPRAYS NA QID Trazodone Hcl (Desyrel), 150 MG PO HS Allergies Coded Allergies: Fentanyl (Verified Allergy, Intermediate, RASH ALL OVER BODY, 07/07/17) ALL OVER BODY Physical Exam Vital Signs Date Time Temp Pulse Resp B/P (MAP) Pulse Ox O2 Delivery O2 Flow Rate FiO2 07/14/17 03:44 87 18 129/78 94 07/14/17 02:41 93 Room Air 07/14/17 02:01 131/88 07/14/17 01:36 72 07/14/17 01:32 71 21 07/14/17 01:01 123/73 07/14/17 00:32 71 20 93 07/14/17 00:27 104/77 07/14/17 00:14 71 22 94 07/13/17 23:44 71 16 95 07/13/17 23:14 80 18 95 07/13/17 23:09 122/84 97 Room Air 07/13/17 22:28 76 24 94 Room Air 07/13/17 21:58 71 19 95 Room Air 07/13/17 21:53 80 07/13/17 21:01 37.1 81 18 135/80 96 Room Air Physical Exam GENERAL: alert, well appearing, well nourished, no distress, non-toxic, smells of alcohol and cigarettes EYE EXAM: normal conjunctiva, PERRL and EOM's grossly intact OROPHARYNX: no exudate, no erythema, lips, buccal mucosa, and tongue normal and mucous membranes are dry NECK: supple, no nuchal rigidity, no adenopathy, non-tender CHEST: Chest wall tenderness. LUNGS: Lung sounds diminished bilaterally, no wheezes, rhonchi, or rales. HEART: no murmurs, S1 normal and S2 normal ABDOMEN: abdomen soft, generalized abdominal tenderness, normo-active bowel sounds, no masses, no rebound or guarding. BACK: Back is symmetrical on inspection and there is no deformity, no midline tenderness, no CVA tenderness. SKIN: no rashes and no bruising UPPER EXTREMITIES: upper extremities are grossly normal. LOWER EXTREMITIES: Subjective altered sensation in left lower extremity, normal pulses, trace pedal edema bilaterally. NEURO EXAM: Normal sensorium, cranial nerves II-XII grossly intact, normal speech, no gross weakness of arms, no gross weakness of legs. No drift. Gross sensation intact. No ataxia. Medical Decision & Procedures ER Provider Diagnostic Interpretation: Radiology results have been interpreted by the radiologist and reviewed by me. CHEST ONE VIEW PORTABLE FINDINGS: Cardiomediastinal silhouette normal. Prominence of the surinder correlates to prominent bilateral pulmonary arteries on CT 07/07/2017.. Lungs and pleural spaces clear. Osseous structures normal. Upper abdomen normal. IMPRESSION: 1. No acute cardiopulmonary disease. Electronically signed by: Jonathan Hart M.D. 07/13/2017 9:47 PM Dictated Date/Time: 07/13/2017 9:45 PM CTA CHEST: Motion artifact obscures peripheral pulmonary arteries at the lung bases. No pulmonary embolus detected. No thoracic aortic aneurysm or dissection. Right pulmonary artery is enlarged, suggesting pulmonary hypertension. No consolidation. No pleural effusion or pneumothorax. Marked enlargement of the thyroid gland, asymmetrically on the left. Recommend ultrasound for further evaluation. Bilateral gynecomastia. No acute fracture. Radiologist: Delano Gallardo MD. CTA ABDOMEN & PELVIS With Contrast: No abdominal aortic aneurysm or dissection. Major branch vessels are patent. Cirrhotic liver morphology. No ascites. Gallbladder is surgically absent. Colonic diverticulosis without evidence of diverticulitis. No evidence of bowel obstruction. Appendix is normal. Radiologist: Delano Gallardo MD CT HEAD: No acute intracranial abnormality. No ICH, mass effect or edema. Cortical atrophy and white matter changes most consistent with chronic small vessel disease. Radiologist: Delano Gallardo MD Laboratory Results 07/13/17 20:40 Red Blood Count 4.62, Mean Corpuscular Volume 95.0, Mean Corpuscular Hemoglobin 35.1, Mean Corpuscular Hemoglobin Concent 36.9, Mean Platelet Volume 11.8, Neutrophils (%) (Auto) 43.3, Lymphocytes (%) (Auto) 40.4, Monocytes (%) (Auto) 11.0, Eosinophils (%) (Auto) 4.1, Basophils (%) (Auto) 1.0, Neutrophils # (Auto ) 3.57, Lymphocytes # (Auto) 3.34, Monocytes # (Auto) 0.91, Eosinophils # (Auto ) 0.34, Basophils # (Auto) 0.08 07/13/17 20:40 Test 07/13/17 20:40 07/13/17 21:17 07/13/17 21:20 07/13/17 21:32 White Blood Count 8.26 K/uL (4.8-10.8) Red Blood Count 4.62 M/uL (4.7-6.1) Hemoglobin 16.2 g/dL (14.0-18.0) Hematocrit 43.9 % (42-52) Mean Corpuscular Volume 95.0 fL (80-100) Mean Corpuscular Hemoglobin 35.1 pg (25-34) Mean Corpuscular Hemoglobin Concent 36.9 g/dl (32-36) Platelet Count 143 K/uL (130-400) Mean Platelet Volume 11.8 fL (7.4-10.4) Neutrophils (%) (Auto) 43.3 % Lymphocytes (%) (Auto) 40.4 % Monocytes (%) (Auto) 11.0 % Eosinophils (%) (Auto) 4.1 % Basophils (%) (Auto) 1.0 % Neutrophils # (Auto) 3.57 K/uL (1.4-6.5) Lymphocytes # (Auto) 3.34 K/uL (1.2-3.4) Monocytes # (Auto) 0.91 K/uL (0.11-0.59) Eosinophils # (Auto) 0.34 K/uL (0-0.5) Basophils # (Auto) 0.08 K/uL (0-0.2) RDW Standard Deviation 48.4 fL (36.4-46.3) RDW Coefficient of Variation 14.0 % (11.5-14.5) Immature Granulocyte % (Auto) 0.2 % Immature Granulocyte # (Auto) 0.02 K/uL (0.00-0.02) Prothrombin Time 11.4 SECONDS (9.0-12.0) Prothromb Time International Ratio 1.1 (0.9-1.1) Anion Gap 9.0 mmol/L (3-11) Est Creatinine Clear Calc Drug Dose 94.0 ml/min Estimated GFR () 119.0 Estimated GFR (Non- 102.7 BUN/Creatinine Ratio 4.3 (10-20) Calcium Level 9.0 mg/dl (8.5-10.1) Magnesium Level 1.7 mg/dl (1.8-2.4) Total Bilirubin 0.9 mg/dl (0.2-1) Aspartate Amino Transf (AST/SGOT) 36 U/L (15-37) Alanine Aminotransferase (ALT/SGPT) 24 U/L (12-78) Alkaline Phosphatase 108 U/L (45-117) Troponin I < 0.015 ng/ml (0-0.045) Total Protein 7.2 gm/dl (6.4-8.2) Albumin 2.5 gm/dl (3.4-5.0) Globulin 4.7 gm/dl (2.5-4.0) Albumin/Globulin Ratio 0.5 (0.9-2) Lactic Acid Level 1.4 mmol/L (0.4-2.0) Ethyl Alcohol mg/dL 156.7 mg/dl (0-3) Bedside Lactic Acid Venous 1.38 mmol/L (0.90-1.70) Test 07/14/17 03:12 Bedside Troponin I < 0.030 ng/ml (0-0.045) Laboratory results per my review. Medications Administered Medications (Trade) Dose Ordered Sig/Justin Route Start Time Stop Time Status Last Admin Dose Admin Sodium Chloride 1,000 ml @ 999 mls/hr Q1H1M STAT IV 07/13/17 21:02 07/13/17 22:02 DC 07/13/17 21:40 999 MLS/HR Sodium Chloride 1,000 ml @ 999 mls/hr Q1H1M STAT IV 07/13/17 23:49 07/14/17 00:49 DC 07/14/17 00:24 999 MLS/HR Magnesium Sulfate (Magnesium Sulfate) 2 gm NOW STAT IV 07/13/17 23:49 07/13/17 23:50 DC 07/14/17 00:24 2 GM Potassium Chloride (Klor-Con M10) 40 meq NOW STAT PO 07/13/17 23:49 07/13/17 23:50 DC 07/14/17 00:23 40 MEQ Al Hydroxide/Mg Hydroxide (Maalox Susp) 30 ml NOW STAT PO 07/14/17 00:07 07/14/17 00:09 DC 07/14/17 00:23 30 ML Ketorolac Tromethamine (Toradol Inj) 30 mg NOW STAT IV 07/14/17 01:41 07/14/17 01:42 DC 07/14/17 02:22 30 MG ECG Indication: chest pain Rate (beats per minute): 78 Rhythm: sinus rhythm Findings: ST depression (Very subtle <1mm depression V2-V3), no ectopy, other ( normal axis, normal intervals) Comparison ECG Date: 08-JUL-2017 Change: Very subtle <1mm depression V2-V3 improved compared to pre-hospital EKG. EKG #2: Sinus Rhythm, 74, normal axis, normal intervals, no ectopy, no acute ischemic changes. ED Course 2023: The patient was evaluated in room B7. A complete history and physical exam was performed. 210: Sodium Chloride 1000 ml @ 999 mls/hr IV. 2349: Potassium Chloride 40meq PO, Magnesium Sulfate 2gm IV, Sodium Chloride 1000 ml @ 999 mls/hr IV. 0007: Maalox Susp 30ml PO. 0141: Toradol Inj 30mg IV. 0239: I reevaluated and updated the patient. He still has some chest pain but is feeling better. Upon reevaluation, the patient is feeling better. I discussed the findings and the treatment plan with the patient. He verbalizes agreement and understanding. The patient was discharged home. Medical Decision Differential diagnosis: Etiologies such as cardiac ischemia, aortic dissection, pulmonary embolism, pneumonia, pneumothorax, musculoskeletal, infections, pericarditis, myocarditis , esophageal rupture, gastrointestinal, as well as others were entertained. I do not suspect pt was actually a cardiac arrest given he remembers not feeling well and more likely had syncope in the presence of alcohol intoxication and police report they did 1 min of CPR and he woke up completely neurologically intact and without incident. Pt with chest pain here, now more likely from chest compressions. No other acute pathology noted. No evidence of recurrent Gi bleed or persistent hemoptysis given recent hx. Pt recently admitted with hemoptysis. Pt noncompliant with follow-up. Has been advised about risks associated with continued daily drinking and he verbalized understanding at bedside tonight. Pt clinically sober. Ambulates with steady gait. Stable VS throughout. Serial troponins negative. No neuro deficit to suggest cva/ICH or hypoxic brain injury. No seizure like activity noted. Pt well appearing here, stable VS, no ectopy noted. Electrolytes replaced. Medication Reconcilliation Current Medication List: was personally reviewed by me Blood Pressure Screening Patient's blood pressure: Elevated blood pressure Blood pressure disposition: Elevated BP felt to be situational Impression Primary Impression: Alcohol intoxication Additional Impressions: Chest pain Syncope Tobacco abuse Hypokalemia Hypomagnesemia Scribe Attestation The scribe's documentation has been prepared under my direction and personally reviewed by me in its entirety. I confirm that the note above accurately reflects all work, treatment, procedures, and medical decision making performed by me. Departure Information Dispostion Home / Self-Care Additional Instructions Please stop drinking alcohol and stop smoking. Please follow-up with the instructions you were previously given. If you have any worsening chest pain, develop black or bloody stools, develop fevers, dizziness, vomiting, trouble breathing, or you have any other new or concerning symptoms, please return to the emergency room. Please follow-up with your family doctor and have your thyroid checked with ultrasound as an outpatient. If you continue drinking alcohol daily at this level, you will develop serious complications which could result in . Please eat normally and consider taking a multivitamin. Problem Qualifiers Primary Impression: Alcohol intoxication Complication of substance-induced condition: uncomplicated Qualified Codes: F10.920 - Alcohol use, unspecified with intoxication, uncomplicated Additional Impressions: Chest pain Chest pain type: unspecified Qualified Codes: R07.9 - Chest pain, unspecified Syncope Syncope type: unspecified Qualified Codes: R55 - Syncope and collapse
[2017-07-13 21:27] LABS: BASO ABS # 0.08 K/uL (0-0.2); COMPLETE YES; EOS % 4.1 %; HEMATOCRIT 43.9 % (42-52); IG% 0.2 %; LYMPH % 40.4 %; LYMPH ABS # 3.34 K/uL (1.2-3.4); MEAN CORPUSCULAR HEMOGLOBIN 35.1 pg (25-34); MEAN CORPUSCULAR HGB CONC 36.9 g/dl (32-36); MEAN PLATELET VOLUME 11.8 fL (7.4-10.4); NEUT % 43.3 %; PLATELET COUNT 143 K/uL (130-400); RED BLOOD COUNT 4.62 M/uL (4.7-6.1); WHITE BLOOD COUNT 8.26 K/uL (4.8-10.8)
[2017-07-13] MEDS ORDERED: OPTIRAY 320 IV PRN (21:30)
[2017-07-13 21:38] LABS: INR 1.1 (0.9-1.1); PROTHROMBIN TIME (PATIENT) 11.4 SECONDS (9.0-12.0)
[2017-07-13 21:44] LABS: ALT/SGPT 24 U/L (12-78); BLOOD UREA NITROGEN 3 mg/dl (7-18); BUN/CREATININE RATIO 4.3 (10-20); CARBON DIOXIDE 24 mmol/L (21-32); CHLORIDE 108 mmol/L (98-107); GLUCOSE 87 mg/dl (70-99); MAGNESIUM 1.7 mg/dl (1.8-2.4); POTASSIUM 3.3 mmol/L (3.5-5.1); SODIUM 142 mmol/L (136-145)
--- NOTE | 2017-07-13 21:48 | DIAGNOSTIC IMAGING REPORT ---
CHEST ONE VIEW PORTABLE CLINICAL HISTORY: 51 years-old Male presenting with chest pain. TECHNIQUE: Portable upright AP view of the chest was obtained. COMPARISON: 07/08/2017. FINDINGS: Cardiomediastinal silhouette normal. Prominence of the surinder correlates to prominent bilateral pulmonary arteries on CT 07/07/2017.. Lungs and pleural spaces clear. Osseous structures normal. Upper abdomen normal. IMPRESSION: 1. No acute cardiopulmonary disease. Electronically signed by: Jonathan Hart M.D. 07/13/2017 9:47 PM Dictated Date/Time: 07/13/2017 9:45 PM
[2017-07-13 21:49] LABS: ALB/GLOB RATIO 0.5 (0.9-2); ALKALINE PHOSPHATASE 108 U/L (45-117); AST/SGOT 36 U/L (15-37)
[2017-07-13] MEDS ORDERED: POTASSIUM CHLORIDE 10 MEQ TABCR PO STA (23:49)
[2017-07-13] MEDS ORDERED: MAGNESIUM SULFATE 1GM / D5W 1 GM BAG IV STA (23:49)
[2017-07-14] MEDS ORDERED: ALUMINUM/MAGNESIUM SUSP 30 ML UDC PO STA (00:07)
[2017-07-14] MEDS ORDERED: KETOROLAC TROMETHAMINE 30 MG/ML VIAL IV STA (01:41)
[2017-07-14 03:44] VITALS: BP 129/78; PULSE 87; O2SAT 94
--- NOTE | 2017-07-14 05:54 | DIAGNOSTIC IMAGING REPORT ---
HEAD WITHOUT CONTRAST (CT) CLINICAL HISTORY: 51 years-old Male with syncope. Acute syncopal event TECHNIQUE: Multiple axial CT images of the head were obtained without contrast. A dose lowering technique was utilized adhering to the principles of ALARA. COMPARISON: CT head 02/06/2017. FINDINGS: No acute intracranial hemorrhage, midline shift, mass, large territorial ischemia or abnormal extra-axial collection. Mild atrophy with mild chronic microvascular ischemic changes. The calvarium is intact. The paranasal sinuses, mastoid air cells, and middle ear cavities are clear. IMPRESSION: No acute intracranial abnormality. The above report was generated using voice recognition software. It may contain grammatical, syntax or spelling errors. Electronically signed by: Cosme Norris M.D. 07/14/2017 5:53 AM Dictated Date/Time: 07/14/2017 5:50 AM
--- NOTE | 2017-07-14 06:33 | DIAGNOSTIC IMAGING REPORT ---
ADDENDUM CT-guided view study was assessed to the CTA chest as below. The CTA abdomen and pelvis study without be dictated separately as follows. (CHEST FOR PE) ANGIO WITH, ANGIO ABD/PELVIS WITH CONTRAST HISTORY: 51 years-old male presents with acute generalized abdominal pain. COMPARISON: CT abdomen and pelvis 07/07/2017 TECHNIQUE: CT of the abdomen and pelvis was obtained following the intravenous administration of 116 mL Optiray 320. 3-D coronal and sagittal MIPS were obtained from the data set and submitted for review. All measurements were obtained according to NASCET criteria. A dose lowering technique was used consistent with the principals of HILARIA. FINDINGS: CTA ABDOMEN AND PELVIS: No abdominal aortic aneurysm or dissection. Mild to moderate degree of mixed plaquing throughout the aorta and iliac vasculature. The celiac trunk, superior and inferior mesenteric arteries are patent. Bilateral renal arteries are also patent. No dissection, proximal branch occlusion or high-grade stenosis. CT ABDOMEN AND PELVIS: Mild dependent bibasilar atelectasis. Unchanged 4 mm noncalcified pulmonary nodule right lower lobe on image 213 series 8. No pneumoperitoneum. Cirrhotic morphology of the liver redemonstrated with upper abdominal varices. There is hepatic steatosis. Previously described 5 mm lesion within the right hepatic lobe segment 7 is not clearly seen. Prior cholecystectomy. The spleen, pancreas and adrenal glands are unremarkable. Kidneys, ureters and urinary bladder are unremarkable. Prostate is unremarkable. No bulky retroperitoneal adenopathy. No bowel obstruction. There is mild wall thickening of the proximal sigmoid colon as seen on image 467 series 8. Colonic diverticulosis without diverticulitis. The appendix appears normal. Soft tissues are unremarkable. Bones appear intact. IMPRESSION: 1. Mild wall thickening of the proximal sigmoid colon is likely secondary to nondistention, however mild colitis could cause a similar appearance. 2. Colonic diverticulosis without diverticulitis. 3. Cirrhotic liver disease with hepatic steatosis and evidence of portal venous hypertension. 4. Prior cholecystectomy. 5. Additional incidental findings as above. Electronically signed by: Cosme Norris M.D. 07/14/2017 6:52 AM Dictated Date/Time: 07/14/2017 6:42 AM ORIGINAL REPORT (CHEST FOR PE) ANGIO WITH, ANGIO ABD/PELVIS WITH CONTRAST HISTORY: 51 years-old Male presents with acute atypical chest pain. History of cirrhosis, hepatic steatosis and varices. TECHNIQUE: Multiple CTA images of the chest were obtained after the intravenous administration of 116 mL Optiray 320. Coronal and sagittal MIPS were obtained from the axial data set and were submitted for review. A dose lowering technique was utilized adhering to the principles of ALARA. COMPARISON: None. FINDINGS: CTA CHEST: Heart is normal in size without pericardial effusion. Coronary arterial calcifications noted. The thoracic aorta is not well opacified, however no dissection or aneurysm identified. The imaged great vessels are patent. There is mild dilation of the pulmonary artery suggesting pulmonary arterial hypertension. The distal segmental and subsegmental branches are not well seen secondary to contrast bolus and respiratory motion. No pulmonary embolus identified. CT CHEST: Multinodular goiter is noted with the left lobe markedly enlarged, mildly displacing the adjacent trachea. Nonspecific mildly prominent right hilar lymph nodes are present. There is no pneumothorax or pleural effusion. No lobar airspace consolidation. Mild dependent bibasilar atelectasis. There is moderate bilateral bronchial wall thickening suggesting bronchitis. Previously described 3 mm noncalcified pulmonary nodule of the right upper lobe is not well delineated. Cirrhotic morphology of the liver with upper abdominal varices. Prior cholecystectomy. Soft tissues are unremarkable. Bilateral gynecomastia. Bones appear intact. IMPRESSION: 1. No evidence of acute aortic pathology or pulmonary thromboembolic disease. 2. Findings suggest bronchitis with mild dependent bibasilar atelectasis. 3. Cirrhotic liver disease with upper abdominal varices. 4. Probable pulmonary arterial hypertension. 5. Multinodular goiter. The above report was generated using voice recognition software. It may contain grammatical, syntax or spelling errors. Electronically signed by: Cosme Norris M.D. 07/14/2017 6:31 AM Dictated Date/Time: 07/14/2017 6:20 AM
== END 2017-07-14 03:40 | disposition home or self-care (01) ==
LOC: EDUNIT# 20:58 → C.EDB 20:59
DX: F10.920 Alcohol use, unspecified with intoxication, uncomplicated (principal); R07.9 Chest pain, unspecified; R55 Syncope and collapse; F17.210 Nicotine dependence, cigarettes, uncomplicated; E87.6 Hypokalemia; E83.42 Hypomagnesemia; K70.30 Alcoholic cirrhosis of liver without ascites; J45.909 Unspecified asthma, uncomplicated; F41.9 Anxiety disorder, unspecified; K86.1 Other chronic pancreatitis; J44.9 Chronic obstructive pulmonary disease, unspecified; E03.9 Hypothyroidism, unspecified; I48.0 Paroxysmal atrial fibrillation; I27.20 Pulmonary hypertension, unspecified; D69.6 Thrombocytopenia, unspecified

== ENCOUNTER 2017-09-15 18:33 | Observation (INO) | payer OTHER ==
[~2017-09-15] VITALS: Ht 165.1 cm; Wt 67.0 kg
[2017-09-15] MEDS ORDERED: SODIUM CHLORIDE 0.9% 1000ML 1,000 ML IV STA (18:41)
--- NOTE | 2017-09-15 18:45 | EMERGENCY ROOM VISIT NOTE ---
History Report prepared by López: Sri Clancy Under the Supervision of: Dr. Pierre Cruz D.O. First contact with patient: 18:23 Stated Complaint: ALCOHOL OVERDOSE History of Present Illness The patient is a 51 year old male who presents to the Emergency Room with complaints of an episode of chest pain occurring just prior to arrival. According to EMS, the patient was eating dinner with family when the patient "clutched" his chest and had a syncopal episode. The patient was nonresponsive to painful stimuli when EMS arrived on scene. EMS reports the patient smells strongly of odor and vomited on site. EMS states the patient intermittently would come to and would "ask for his bottle". EMS states the family confirmed the patient was "drinking a little bit". EMS also reports the family tried the Heimlich maneuver because they thought the patient was choking. History is limited secondary to patient's unresponsive status. Source of History: EMS History Limited By: other (unresponsive status) Onset: just prior to arrival Position: chest Timing: other (episode) Review of Systems ROS is limited secondary to patient's unresponsive status. Past Medical & Surgical Medical Problems: (1) Alcohol dependence (2) Alcoholic cirrhosis of liver without ascites (3) Asthma, mild persistent (4) Chronic anxiety (5) Chronic pancreatitis (6) COPD, mild (7) Esophageal varices (8) Hypothyroidism (9) Paroxysmal atrial fibrillation (10) Portal vein thrombosis (11) Pulmonary HTN (12) Thrombocytopenia (13) Tobacco abuse Surgical Problems: (1) H/O colonoscopy (2) History of cholecystectomy (3) History of esophagogastroduodenoscopy (EGD) Family History Blood clots Diabetes mellitus MOTHER FH: CAD (coronary artery disease) FATHER BROTHER FH: leukemia AUNT Hypertension Current/Historical Medications Scheduled Trazodone Hcl (Desyrel), 150 MG PO HS Allergies Coded Allergies: Fentanyl (Verified Allergy, Intermediate, RASH ALL OVER BODY, 09/15/17) ALL OVER BODY Physical Exam Vital Signs Date Time Temp Pulse Resp B/P (MAP) Pulse Ox O2 Delivery O2 Flow Rate FiO2 09/15/17 22:00 88 14 80/53 95 Nasal Cannula 2.0 09/15/17 21:30 86 14 126/29 96 Nasal Cannula 2.0 09/15/17 21:00 82 15 94 Nasal Cannula 2.0 09/15/17 20:30 96 16 98/61 97 Nasal Cannula 2.0 09/15/17 20:00 89 15 109/75 97 Nasal Cannula 2.0 09/15/17 19:30 83 21 135/68 97 Nasal Cannula 2.0 09/15/17 19:01 97 Nasal Cannula 09/15/17 19:00 90 Room Air 09/15/17 18:58 94 Room Air 09/15/17 18:58 37.3 84 18 138/92 92 Room Air 09/15/17 18:44 89 Physical Exam GENERAL: Patient was initially awake and urinating. Odor of alcohol noted. EYES: Forcibly closed. The conjunctivae are bilaterally injected. The pupils are round and reactive. EARS, NOSE, MOUTH AND THROAT: The nose is without any evidence of any deformity. Mucous membranes are moist tongue is midline. Widespread dental carries. NECK: The neck is nontender and supple. RESPIRATORY: Normal respiratory effort is noted there is no evidence of wheezing rhonchi or rales CARDIOVASCULAR: Regular rate and rhythm noted there no murmurs rubs or gallops normal S1 normal S2 GASTROINTESTINAL: The abdomen is soft. Bowel sounds are present in all quadrants. Abdomen is nontender MUSCULOSKELETAL/EXTREMITIES: There is no evidence of gross deformity full range of motion is noted in the hips and shoulders SKIN: There is no obvious evidence of any rash. There are no petechiae, pallor or cyanosis noted. NEUROLOGIC: Patient will not answer questions, cannot assess orientation, patellar tendon reflexes 2+ bilaterally. Medical Decision & Procedures ER Provider Diagnostic Interpretation: Radiology results as stated below per my review and radiologist interpretation: CHEST ONE VIEW PORTABLE FINDINGS: There is no pneumothorax or pleural effusion. Cardiomediastinal silhouette is normal. Rightward deviation of the trachea is unchanged and likely due to a thyroid goiter as shown on prior CT. Enlargement of both surinder is due to pulmonary arterial dilatation. There is no consolidation to suggest pneumonia and there is no evidence of pulmonary edema. IMPRESSION: No acute cardiopulmonary findings. No change in appearance of the chest, as discussed above. Electronically signed by: Chuy Rodríguez M.D. CT OF THE HEAD WITHOUT CONTRAST FINDINGS: No acute intracranial hemorrhage, midline shift or mass effect is present. Ventricular system is stable. Basilar cisterns are patent. There are no extra-axial collections. Newell-white differentiation is maintained. White matter hypodensity suggests small vessel disease. There are no findings to suggest acute dural sinus thrombosis or acute territorial infarct. There is no calvarial fracture. IMPRESSION: No acute intracranial findings. Electronically signed by: Chuy Rodríguez M.D. CT ANGIOGRAPHY OF THE CHEST, PULMONARY EMBOLUS PROTOCOL FINDINGS: No pulmonary emboli are identified. The size of the heart is normal. There is no evidence of thoracic aortic dissection. No enlarged thoracic lymph nodes are present. There is mild dilatation of the central pulmonary arteries. Bilateral gynecomastia is noted. Mild upper lobe predominant emphysema is present. There is no consolidation to suggest pneumonia. No pneumothorax or pleural effusion is present. There are old left rib fractures. No acute rib or thoracic spine fractures are present. There is no evidence of traumatic injury to the thoracic aorta. A multinodular thyroid goiter is again noted. Cirrhosis with manifestations of portal hypertension including upper abdominal varices are better depicted on the abdominal CT. IMPRESSION: 1. No pulmonary emboli identified. 2. No acute traumatic findings within the chest. 3. Cirrhosis with upper abdominal varices indicative of portal hypertension. 4. Multinodular goiter. 5. Mild emphysema. Electronically signed by: Chuy Rodríguez M.D. CT OF THE CERVICAL SPINE WITHOUT CONTRAST FINDINGS: Craniocervical junction is intact. There is no acute cervical spine fracture. There is no prevertebral edema. There is moderate multilevel facet arthrosis and mild to moderate multilevel degenerative disc disease which is most pronounced at C6-C7. A thyroid goiter is again noted. IMPRESSION: No acute cervical spine fracture or subluxation. Electronically signed by: Chuy Rodríguez M.D. CT OF THE ABDOMEN AND PELVIS WITH CONTRAST FINDINGS: The liver is cirrhotic. The liver is dysmorphic with nodularity of the liver surface. Fatty infiltration is noted. No hepatic lesions are identified although sensitivity for detection of hypervascular lesions is diminished on this portal venous phase study. The main, left and right portal veins are patent. The spleen, adrenal glands, kidneys and pancreas are unremarkable. There is no biliary ductal dilatation status post cholecystectomy. No varices are noted. There is no ascites. No pneumatosis, free air or portal venous gas is present. Caliber and wall thickness of small and large bowel are normal. No acute lumbar spine or pelvic fracture is identified. There are old left-sided rib fractures and an old fracture of the left inferior pubic ramus. Gynecomastia is noted. IMPRESSION: 1. No acute traumatic findings within the abdomen or pelvis. 2. Cirrhosis with varices formation indicative of portal hypertension. No ascites. Electronically signed by: Chuy Rodríguez M.D. Laboratory Results Test 09/15/17 18:49 09/15/17 19:09 09/15/17 19:24 Urine Color YELLOW Urine Appearance CLEAR (CLEAR) Urine pH 6.5 (4.5-7.5) Urine Specific [place] 1.011 (1.000-1.030) Urine Protein NEG (NEG) Urine Glucose (UA) NEG (NEG) Urine Ketones NEG (NEG) Urine Occult Blood NEG (NEG) Urine Nitrite NEG (NEG) Urine Bilirubin NEG (NEG) Urine Urobilinogen NEG (NEG) Urine Leukocyte Esterase NEG (NEG) Urine Opiates Screen NEG (NEG) Urine Methadone, Qualitative NEG (NEG) Urine Barbiturates NEG (NEG) Urine Phencyclidine (PCP) Level NEG (NEG) Ur Amphetamine/Methamphetamine NEG (NEG) MDMA (Ecstasy) Screen NEG (NEG) Urine Benzodiazepines Screen NEG (NEG) Urine Cocaine Metabolite NEG (NEG) Urine Marijuana (THC) NEG (NEG) Neutrophils % (Manual) 41.8 % Lymphocytes % (Manual) 28.7 % Variant Lymphocytes % (manual) 13.0 % Monocytes % (Manual) 10.4 % Eosinophils % (Manual) 5.2 % Basophils % (Manual) 0.9 % (0-2) Neutrophils # (Manual) 3.70 K/uL (1.4-6.5) Total Absolute Neutrophils 3.70 K/uL (1.4-6.5) Lymphocytes # (Manual) 2.54 K/uL (1.2-3.4) Absolute Variant Lymphocytes 1.15 K/uL Total Absolute Lymphocytes 3.69 K/uL (1.2-3.4) Monocytes # (Manual) 0.92 K/uL (0.11-0.59) Eosinophils # (Manual) 0.46 K/uL (0-0.5) Basophils # (Manual) 0.08 K/uL (0-0.2) Platelet Estimate DECREASED Prothrombin Time 12.5 SECONDS (9.0-12.0) Prothromb Time International Ratio 1.2 (0.9-1.1) Activated Partial Thromboplast Time 27.9 SECONDS (21.0-31.0) Partial Thromboplastin Ratio 1.1 Osmolality 358 mOsm/kg (280-300) Total Bilirubin 2.1 mg/dl (0.2-1) Direct Bilirubin 0.5 mg/dl (0-0.2) Aspartate Amino Transf (AST/SGOT) 95 U/L (15-37) Alanine Aminotransferase (ALT/SGPT) 50 U/L (12-78) Alkaline Phosphatase 119 U/L (45-117) Total Protein 6.9 gm/dl (6.4-8.2) Albumin 2.4 gm/dl (3.4-5.0) Lipase 196 U/L (73-393) Ethyl Alcohol mg/dL 299.0 mg/dl (0-3) Bedside Hemoglobin 15.6 g/dl (14.0-18.0) Bedside Hematocrit 46 % (42-52) Bedside Sodium 139 mEq/L (135-144) Bedside Potassium 3.0 mEq/L (3.3-5.0) Bedside Chloride 100 mEq/L (101-112) Bedside Total CO2 21 mEq/l (24-31) Bedside Blood Urea Nitrogen < 3 mg/dl (7-18) Bedside Creatinine 1.1 mg/dl (0.6-1.3) Bedside Glucose (other) 100 mg/dl (70-99) Bedside Ionized Calcium (Negin) 1.09 mmol/l (1.12-1.32) Laboratory results per my review. Medications Administered Medications (Trade) Dose Ordered Sig/Justin Route Start Time Stop Time Status Last Admin Dose Admin Sodium Chloride 1,000 ml @ 999 mls/hr Q1H1M STAT IV 09/15/17 18:41 09/15/17 19:41 DC 09/15/17 19:12 999 MLS/HR Potassium Chloride 10 meq/ Prmx 100 ml @ 100 mls/hr NOW STAT IV 09/15/17 20:34 09/15/17 21:33 DC 09/15/17 20:48 100 MLS/HR Sodium Chloride 1,000 ml @ 100 mls/hr Q10H IV 09/15/17 22:32 10/15/17 22:31 09/16/17 09:01 100 MLS/HR ECG Indication: altered mental status Rate (beats per minute): 91 Rhythm: normal sinus Findings: PAC, other (LVH noted by voltage criteria, diffuse ST segment abnormality) Comparison ECG Date: 07/14/17 Change: no significant change ED Course 1833: The patient was evaluated in room A10. A complete history and physical examination were performed. 1840: Ordered NSS 1,000 ml @ 999 mls/hr IV. 2033: Ordered Potassium Chloride 10 meq/Prmx 100 ml @ 100 mls/hr. 2130: The patient is still unresponsive. 2158: I discussed the patient's case with Dr. Leon. The patient will be evaluated for further management. Medical Decision Differential diagnosis: Etiologies such as metabolic, infection, hypoglycemia, electrolyte abnormalities , cardiac sources, intracerebral event, toxicologic, neurologic, as well as others were entertained. Nursing notes reviewed. Additional history is obtained from the prehospital personnel. The patient is a 51-year-old male who presented to the emergency department after having a syncopal so. The patient had chest pain in the and syncope. According to the prehospital personnel the patient has had intermittent episodes where he does not respond to questioning. There is also some question as to when that the patient received CPR prior to arrival. I discussed the patient's laboratory and radiographic studies with him. He was still not at his baseline. He does have some significant risk factors. For this reason I discussed his case with the on-call [facility] hospitalist. They've agreed to evaluate the patient in the emergency department for further management and disposition. Medication Reconcilliation Current Medication List: was personally reviewed by me Blood Pressure Screening Patient's blood pressure: Normal blood pressure Blood pressure disposition: Referred to PCP (evaluated by hospitalist) Consults Time Called: 2149 Consulting Physician: Dr. Leon Returned Call: 2158 I discussed the patient's case with Dr. Leon. The patient will be evaluated for further management. Impression Primary Impression: Chest pain Additional Impressions: Syncope Alcohol intoxication Head injury Scribe Attestation The scribe's documentation has been prepared under my direction and personally reviewed by me in its entirety. I confirm that the note above accurately reflects all work, treatment, procedures, and medical decision making performed by me. Departure Information Dispostion Being Evaluated By Hospitalist Problem Qualifiers Primary Impression: Chest pain Chest pain type: unspecified Qualified Codes: R07.9 - Chest pain, unspecified Additional Impressions: Syncope Syncope type: unspecified Qualified Codes: R55 - Syncope and collapse Alcohol intoxication Complication of substance-induced condition: uncomplicated Qualified Codes: F10.920 - Alcohol use, unspecified with intoxication, uncomplicated Head injury Encounter type: initial encounter Qualified Codes: S09.90XA - Unspecified injury of head, initial encounter
[2017-09-15] MEDS ORDERED: OPTIRAY 320 IV PRN (19:00)
--- NOTE | 2017-09-15 19:21 | DIAGNOSTIC IMAGING REPORT ---
CHEST ONE VIEW PORTABLE CLINICAL HISTORY: Overdose. COMPARISON STUDY: Chest CT and chest radiograph July 13, 2017. FINDINGS: There is no pneumothorax or pleural effusion. Cardiomediastinal silhouette is normal. Rightward deviation of the trachea is unchanged and likely due to a thyroid goiter as shown on prior CT. Enlargement of both surinder is due to pulmonary arterial dilatation. There is no consolidation to suggest pneumonia and there is no evidence of pulmonary edema. IMPRESSION: No acute cardiopulmonary findings. No change in appearance of the chest, as discussed above. Electronically signed by: Chuy Rodríguez M.D. 09/15/2017 7:19 PM Dictated Date/Time: 09/15/2017 7:16 PM
[2017-09-15 19:35] LABS: INR 1.2 (0.9-1.1); PARTIAL THROMBOPLASTIN RATIO 1.1; PROTHROMBIN TIME (PATIENT) 12.5 SECONDS (9.0-12.0)
[2017-09-15 19:37] LABS: BENZODIAZEPINE, URINE NEG (NEG); COCAINE,URINE NEG (NEG); PHENCYCLIDINE, URINE NEG (NEG)
[2017-09-15 19:42] LABS: ISTAT CARBON DIOXIDE 21 mEq/l (24-31); ISTAT CHLORIDE 100 mEq/L (101-112); ISTAT CREATININE 1.1 mg/dl (0.6-1.3); ISTAT HEMATOCRIT 46 % (42-52); ISTAT HEMOGLOBIN 15.6 g/dl (14.0-18.0); ISTAT IONIZED CALCIUM 1.09 mmol/l (1.12-1.32); ISTAT SODIUM 139 mEq/L (135-144)
[2017-09-15 19:51] LABS: BLOOD UREA NITROGEN 4 mg/dl (7-18); BUN/CREATININE RATIO 5.8 (10-20); CALCIUM 7.8 mg/dl (8.5-10.1); CARBON DIOXIDE 22 mmol/L (21-32); CHLORIDE 104 mmol/L (98-107); CREATININE 0.71 mg/dl (0.60-1.40); GLUCOSE 91 mg/dl (70-99); SODIUM 134 mmol/L (136-145)
[2017-09-15 19:57] LABS: ALKALINE PHOSPHATASE 119 U/L (45-117); ALT/SGPT 50 U/L (12-78); AST/SGOT 95 U/L (15-37); CKMB/CK RATIO 1.3 (0-3.0)
[2017-09-15 20:19] LABS: HEMATOCRIT 44.8 % (42-52); MEAN CELL VOLUME 97.4 fL (80-100); MEAN CORPUSCULAR HEMOGLOBIN 36.1 pg (25-34); MEAN CORPUSCULAR HGB CONC 37.1 g/dl (32-36); PLATELET COUNT 114 K/uL (130-400); WHITE BLOOD COUNT 8.84 K/uL (4.8-10.8)
[2017-09-15 20:21] LABS: BASO ABS # 0.08 K/uL (0-0.2); BASOPHIL % 0.9 % (0-2); COMPLETE YES; EOSINOPHIL % 5.2 %; LYMPH ABS # 2.54 K/uL (1.2-3.4); LYMPHOCYTE % 28.7 %; NEUTROPHILS % 41.8 %; PLT ESTIMATE DECREASED; VARIANT LYM ABS # 1.15 K/uL
[2017-09-15] MEDS ORDERED: POTASSIUM CHLORIDE 10 MEQ / 100ML WTR IV STA (20:25)
--- NOTE | 2017-09-15 20:28 | DIAGNOSTIC IMAGING REPORT ---
CT OF THE HEAD WITHOUT CONTRAST CLINICAL HISTORY: Fall. Syncope. Overdose. COMPARISON STUDY: Head CT July 13, 2017. CT DOSE: 1773.84 mGy.cm TECHNIQUE: Helical axial images of the head were obtained without IV contrast. Automated exposure control was utilized for the study. A dose lowering technique was utilized adhering to the principles of ALARA. FINDINGS: No acute intracranial hemorrhage, midline shift or mass effect is present. Ventricular system is stable. Basilar cisterns are patent. There are no extra-axial collections. Newell-white differentiation is maintained. White matter hypodensity suggests small vessel disease. There are no findings to suggest acute dural sinus thrombosis or acute territorial infarct. There is no calvarial fracture. IMPRESSION: No acute intracranial findings. Electronically signed by: Chuy Rodríguez M.D. 09/15/2017 8:27 PM Dictated Date/Time: 09/15/2017 8:24 PM
--- NOTE | 2017-09-15 20:32 | DIAGNOSTIC IMAGING REPORT ---
CT OF THE CERVICAL SPINE WITHOUT CONTRAST CLINICAL HISTORY: Fall. COMPARISON STUDY: Cervical spine CT June 14, 2015. TECHNIQUE: Helical axial images of the cervical spine were obtained without IV contrast. Sagittal and coronal reconstructions were viewed. A dose lowering technique was utilized adhering to the principles of ALARA. FINDINGS: Craniocervical junction is intact. There is no acute cervical spine fracture. There is no prevertebral edema. There is moderate multilevel facet arthrosis and mild to moderate multilevel degenerative disc disease which is most pronounced at C6-C7. A thyroid goiter is again noted. IMPRESSION: No acute cervical spine fracture or subluxation. Electronically signed by: Chuy Rodríguez M.D. 09/15/2017 8:30 PM Dictated Date/Time: 09/15/2017 8:27 PM
[2017-09-15] MEDS ORDERED: POTASSIUM CHLR 10MEQ / WTR IV STA (20:34)
--- NOTE | 2017-09-15 20:43 | DIAGNOSTIC IMAGING REPORT ---
CT ANGIOGRAPHY OF THE CHEST, PULMONARY EMBOLUS PROTOCOL CLINICAL HISTORY: Chest pain. Fall. Syncope. COMPARISON STUDY: Chest CT July 13, 2017 and chest radiograph performed earlier today. TECHNIQUE: Following IV administration of 94 mL of Optiray-320, helical axial images of the chest were obtained utilizing the pulmonary embolus protocol. Maximal intensity projections and sagittal and coronal reformats were viewed on an independent 3D workstation. IV contrast was administered without complication. A dose lowering technique was utilized adhering to the principles of ALARA. FINDINGS: No pulmonary emboli are identified. The size of the heart is normal. There is no evidence of thoracic aortic dissection. No enlarged thoracic lymph nodes are present. There is mild dilatation of the central pulmonary arteries. Bilateral gynecomastia is noted. Mild upper lobe predominant emphysema is present. There is no consolidation to suggest pneumonia. No pneumothorax or pleural effusion is present. There are old left rib fractures. No acute rib or thoracic spine fractures are present. There is no evidence of traumatic injury to the thoracic aorta. A multinodular thyroid goiter is again noted. Cirrhosis with manifestations of portal hypertension including upper abdominal varices are better depicted on the abdominal CT. IMPRESSION: 1. No pulmonary emboli identified. 2. No acute traumatic findings within the chest. 3. Cirrhosis with upper abdominal varices indicative of portal hypertension. 4. Multinodular goiter. 5. Mild emphysema. Electronically signed by: Chuy Rodríguez M.D. 09/15/2017 8:42 PM Dictated Date/Time: 09/15/2017 8:32 PM
--- NOTE | 2017-09-15 20:58 | DIAGNOSTIC IMAGING REPORT ---
CT OF THE ABDOMEN AND PELVIS WITH CONTRAST CLINICAL HISTORY: Fall. Syncope. COMPARISON STUDY: CT of the abdomen and pelvis July 13, 2017. TECHNIQUE: Following IV administration of 94 mL of Optiray-320, axial images of the abdomen and pelvis were obtained from the lung bases to the proximal femurs. Images were reviewed in the axial, sagittal, and coronal planes. IV contrast was administered without complication. A dose lowering technique was utilized adhering to the principles of ALARA. FINDINGS: The liver is cirrhotic. The liver is dysmorphic with nodularity of the liver surface. Fatty infiltration is noted. No hepatic lesions are identified although sensitivity for detection of hypervascular lesions is diminished on this portal venous phase study. The main, left and right portal veins are patent. The spleen, adrenal glands, kidneys and pancreas are unremarkable. There is no biliary ductal dilatation status post cholecystectomy. No varices are noted. There is no ascites. No pneumatosis, free air or portal venous gas is present. Caliber and wall thickness of small and large bowel are normal. No acute lumbar spine or pelvic fracture is identified. There are old left-sided rib fractures and an old fracture of the left inferior pubic ramus. Gynecomastia is noted. IMPRESSION: 1. No acute traumatic findings within the abdomen or pelvis. 2. Cirrhosis with varices formation indicative of portal hypertension. No ascites. Electronically signed by: Chuy Rodríguez M.D. 09/15/2017 8:57 PM Dictated Date/Time: 09/15/2017 8:49 PM
[2017-09-15] MEDS ORDERED: ONDANSETRON INJ 2 MG/ML 2 ML VIAL IV PRN (22:45)
[2017-09-15] MEDS ORDERED: LORAZEPAM 1 MG TAB PO PRN (22:45)
[2017-09-15] MEDS ORDERED: ALUMINUM/MAGNESIUM/SIMETH (MAALOX MAX) 30 ML UDC PO PRN (22:45)
[2017-09-15] MEDS ORDERED: GABAPENTIN 600 MG TAB PO SCH (22:45)
[2017-09-15] MEDS ORDERED: MAGNESIUM HYDROXIDE SUSP 30 ML UDC PO PRN (22:45)
--- NOTE | 2017-09-15 23:32 | History and Physical ---
History & Physical Date & Time of Service: Sep 15, 2017 at 23:22 Chief Complaint: Alcohol Overdose Primary Care Physician: Darrius Cr M.D. (MEDICAL) History of Present Illness Source: patient, clinic records, hospital records This is a 51 year old male with a PMH of alcohol abuse/dependence as well as possible withdrawal seizures in the past, hx. of paroxysmal A. Fib presents via EMS after passing out; as per notes - mother stated that patient grabbed his chest and collapsed. They called --. Reports states that CPR may have been started due to unresponsiveness, but no CPR was performed when EMS got there. Patient was lethargic/weak when he arrived. During my history, he tells me that he had a few drinks and cannot recall passing out. He states he had some epigastric/chest pains, which have been intermittent and non-radiating. Denies any diarrhea/nausea/vomiting; denies GI bleeding. Denies fevers/chills or shortness of breath. Past Medical/Surgical History Medical Problems: (1) Alcohol dependence Status: Chronic (2) Alcoholic cirrhosis of liver without ascites Status: Chronic (3) Asthma, mild persistent Status: Chronic (4) Chronic anxiety Status: Chronic (5) Chronic pancreatitis Status: Chronic (6) COPD, mild Status: Chronic (7) Esophageal varices Status: Chronic (8) Hypothyroidism Status: Chronic (9) Paroxysmal atrial fibrillation Status: Chronic (10) Portal vein thrombosis Status: Chronic (11) Pulmonary HTN Status: Chronic (12) Thrombocytopenia Status: Chronic (13) Tobacco abuse Status: Chronic Surgical Problems: (1) H/O colonoscopy Status: Chronic (2) History of cholecystectomy Permanent Comment: 2009 Status: Chronic (3) History of esophagogastroduodenoscopy (EGD) Permanent Comment: 12/15/2014- Small varices. Erosive duodenitis. Status: Chronic Family History Blood clots Diabetes mellitus MOTHER FH: CAD (coronary artery disease) FATHER BROTHER FH: leukemia AUNT Hypertension Social History Smoking Status: Unknown if Ever Smoked Drug Use: none Marital Status: Occupational Status: unemployed Immunizations History of Influenza Vaccine: Yes History of Tetanus Vaccine?: Yes History of Pneumococcal: Unknown Pneumococcal Date: February 21, 2010 History of Hepatitis B Vaccine: Unknown Hepatitis Immunization Date: Oct 12, 2009 Multi-Drug Resistant Organisms History of MDRO: No Allergies Coded Allergies: Fentanyl (Verified Allergy, Intermediate, RASH ALL OVER BODY, 09/15/17) ALL OVER BODY Home Medications Scheduled Trazodone Hcl (Desyrel), 150 MG PO HS Review of Systems Constitutional: + weakness, + fatigue, No fever, No chills Respiratory: No cough, No sputum, No wheezing, No shortness of breath, No dyspnea on exertion, No dyspnea at rest, No hemoptysis Cardiovascular: + chest pain, No orthopnea, No edema, No palpitations Abdomen: + pain, No nausea, No vomiting, No diarrhea, No constipation, No GI bleeding Musculoskeletal: No joint pain, No muscle pain Genitourinary - Male: No hematuria, No dysuria, No urinary frequency, No urinary urgency Neurologic: + memory loss, + weakness, + numbness/tingling, + vertigo, + balance problems Psychiatric: + insomnia, No depression symptoms, No anxiety Endocrine: No fatigue Hematologic / Lymphatic: No abnormal bleeding/bruising Integumentary: No rash Allergic / Immunologic: No environmental allergies, No seasonal allergies Physical Exam Vital Signs Date Time Temp Pulse Resp B/P (MAP) Pulse Ox O2 Delivery O2 Flow Rate FiO2 09/15/17 23:10 80 16 112/64 92 Nasal Cannula 2.0 09/15/17 22:00 88 14 80/53 95 Nasal Cannula 2.0 09/15/17 21:30 86 14 126/29 96 Nasal Cannula 2.0 09/15/17 21:00 82 15 94 Nasal Cannula 2.0 09/15/17 20:30 96 16 98/61 97 Nasal Cannula 2.0 09/15/17 20:00 89 15 109/75 97 Nasal Cannula 2.0 09/15/17 19:30 83 21 135/68 97 Nasal Cannula 2.0 09/15/17 19:01 97 Nasal Cannula 09/15/17 19:00 90 Room Air 09/15/17 18:58 94 Room Air 09/15/17 18:58 37.3 84 18 138/92 92 Room Air 09/15/17 18:44 89 General Appearance: + pertinent finding (+lethargic, weak, ill-appearing) Head: normocephalic, atraumatic Eyes: normal inspection ENT: hearing grossly normal Neck: supple Respiratory/Chest: chest non-tender, no respiratory distress, no accessory muscle use, + wheezing (mild end expiratory wheezing) Cardiovascular: regular rate, rhythm, no edema, + systolic murmur Abdomen/GI: normal bowel sounds, non tender, soft Extremities/Musculoskelatal: normal inspection, no calf tenderness, normal capillary refill, normal range of motion, + pertinent finding (trace edema) 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60 4.7-6.1 M/uL Hemoglobin 16.6 14.0-18.0 g/dL Hematocrit 44.8 42-52 % Mean Corpuscular Volume 97.4 80-100 fL Mean Corpuscular Hemoglobin 36.1 25-34 pg Mean Corpuscular Hemoglobin Concent 37.1 32-36 g/dl Platelet Count 114 130-400 K/uL Mean Platelet Volume 12.0 7.4-10.4 fL RDW Standard Deviation 44.9 36.4-46.3 fL RDW Coefficient of Variation 12.7 11.5-14.5 % Neutrophils % (Manual) 41.8 % Lymphocytes % (Manual) 28.7 % Variant Lymphocytes % (manual) 13.0 % Monocytes % (Manual) 10.4 % Eosinophils % (Manual) 5.2 % Basophils % (Manual) 0.9 0-2 % Neutrophils # (Manual) 3.70 1.4-6.5 K/uL Total Absolute Neutrophils 3.70 1.4-6.5 K/uL Lymphocytes # (Manual) 2.54 1.2-3.4 K/uL Absolute Variant Lymphocytes 1.15 K/uL Total Absolute Lymphocytes 3.69 1.2-3.4 K/uL Monocytes # (Manual) 0.92 0.11-0.59 K/uL Eosinophils # (Manual) 0.46 0-0.5 K/uL Basophils # (Manual) 0.08 0-0.2 K/uL Platelet Estimate DECREASED Prothrombin Time 12.5 9.0-12.0 SECONDS Prothromb Time International Ratio 1.2 0.9-1.1 Activated Partial Thromboplast Time 27.9 21.0-31.0 SECONDS Partial Thromboplastin Ratio 1.1 Sodium Level 134 136-145 mmol/L Potassium Level 3.0 3.5-5.1 mmol/L Chloride Level 104 98-107 mmol/L Carbon Dioxide Level 22 21-32 mmol/L Anion Gap 8.0 22.0 16-25 mmol/L Blood Urea Nitrogen 4 7-18 mg/dl Creatinine 0.71 0.60-1.40 mg/dl Estimated GFR () 125.0 Estimated GFR (Non- 107.9 BUN/Creatinine Ratio 5.8 10-20 Random Glucose 91 70-99 mg/dl Osmolality 358 280-300 mOsm/kg Calcium Level 7.8 8.5-10.1 mg/dl Total Bilirubin 2.1 0.2-1 mg/dl Direct Bilirubin 0.5 0-0.2 mg/dl Aspartate Amino Transf (AST/SGOT) 95 15-37 U/L Alanine Aminotransferase (ALT/SGPT) 50 12-78 U/L Alkaline Phosphatase 119 45-117 U/L Total Creatine Kinase 147 39-308 U/L Creatine Kinase MB 1.9 0.5-3.6 ng/ml Creatine Kinase MB Ratio 1.3 0-3.0 Troponin I < 0.015 0-0.045 ng/ml Total Protein 6.9 6.4-8.2 gm/dl Albumin 2.4 3.4-5.0 gm/dl Lipase 196 73-393 U/L Ethyl Alcohol mg/dL 299.0 0-3 mg/dl Bedside Hemoglobin 15.6 14.0-18.0 g/dl Bedside Hematocrit 46 42-52 % Bedside Sodium 139 135-144 mEq/L Bedside Potassium 3.0 3.3-5.0 mEq/L Bedside Chloride 100 101-112 mEq/L Bedside Total CO2 21 24-31 mEq/l Bedside Blood Urea Nitrogen < 3 7-18 mg/dl Bedside Creatinine 1.1 0.6-1.3 mg/dl Bedside Glucose (other) 100 70-99 mg/dl Bedside Ionized Calcium (Negin) 1.09 1.12-1.32 mmol/l Diagnostic Radiology CT OF THE ABDOMEN AND PELVIS WITH CONTRAST CLINICAL HISTORY: Fall. Syncope. COMPARISON STUDY: CT of the abdomen and pelvis July 13, 2017. TECHNIQUE: Following IV administration of 94 mL of Optiray-320, axial images of the abdomen and pelvis were obtained from the lung bases to the proximal femurs. Images were reviewed in the axial, sagittal, and coronal planes. IV contrast was administered without complication. A dose lowering technique was utilized adhering to the principles of ALARA. FINDINGS: The liver is cirrhotic. The liver is dysmorphic with nodularity of the liver surface. Fatty infiltration is noted. No hepatic lesions are identified although sensitivity for detection of hypervascular lesions is diminished on this portal venous phase study. The main, left and right portal veins are patent. The spleen, adrenal glands, kidneys and pancreas are unremarkable. There is no biliary ductal dilatation status post cholecystectomy. No varices are noted. There is no ascites. No pneumatosis, free air or portal venous gas is present. Caliber and wall thickness of small and large bowel are normal. No acute lumbar spine or pelvic fracture is identified. There are old left-sided rib fractures and an old fracture of the left inferior pubic ramus. Gynecomastia is noted. IMPRESSION: 1. No acute traumatic findings within the abdomen or pelvis. 2. Cirrhosis with varices formation indicative of portal hypertension. No ascites. CT OF THE CERVICAL SPINE WITHOUT CONTRAST CLINICAL HISTORY: Fall. COMPARISON STUDY: Cervical spine CT June 14, 2015. TECHNIQUE: Helical axial images of the cervical spine were obtained without IV contrast. Sagittal and coronal reconstructions were viewed. A dose lowering technique was utilized adhering to the principles of ALARA. FINDINGS: Craniocervical junction is intact. There is no acute cervical spine fracture. There is no prevertebral edema. There is moderate multilevel facet arthrosis and mild to moderate multilevel degenerative disc disease which is most pronounced at C6-C7. A thyroid goiter is again noted. IMPRESSION: No acute cervical spine fracture or subluxation. CT ANGIOGRAPHY OF THE CHEST, PULMONARY EMBOLUS PROTOCOL CLINICAL HISTORY: Chest pain. Fall. Syncope. COMPARISON STUDY: Chest CT July 13, 2017 and chest radiograph performed earlier today. TECHNIQUE: Following IV administration of 94 mL of Optiray-320, helical axial images of the chest were obtained utilizing the pulmonary embolus protocol. Maximal intensity projections and sagittal and coronal reformats were viewed on an independent 3D workstation. IV contrast was administered without complication. A dose lowering technique was utilized adhering to the principles of ALARA. FINDINGS: No pulmonary emboli are identified. The size of the heart is normal. There is no evidence of thoracic aortic dissection. No enlarged thoracic lymph nodes are present. There is mild dilatation of the central pulmonary arteries. Bilateral gynecomastia is noted. Mild upper lobe predominant emphysema is present. There is no consolidation to suggest pneumonia. No pneumothorax or pleural effusion is present. There are old left rib fractures. No acute rib or thoracic spine fractures are present. There is no evidence of traumatic injury to the thoracic aorta. A multinodular thyroid goiter is again noted. Cirrhosis with manifestations of portal hypertension including upper abdominal varices are better depicted on the abdominal CT. IMPRESSION: 1. No pulmonary emboli identified. 2. No acute traumatic findings within the chest. 3. Cirrhosis with upper abdominal varices indicative of portal hypertension. 4. Multinodular goiter. 5. Mild emphysema. EKG Sinus rhythm with Premature atrial complexes Nonspecific ST abnormality Impression Assessment and Plan This is a 51 year old male with a PMH of alcohol abuse/dependence as well as possible withdrawal seizures in the past, hx. of paroxysmal A. Fib presents via EMS after passing out Alcohol Intoxication monitor for withdrawal symptoms will give multivitamin, folic acid, thiamine gabapentin protocol Ativan PRN for agitation he has a hx. of seizures - possibly related to withdrawal check Mg IVFs Syncope likely related to above monitor in tele echo from 07/08 shows significant tricuspid regurg, RV dilatation, and pulmonary HTN Chest Pain r/o ACS monitor in tele trend cardiac enzymes DVT ppx SCDs FULL CODE VTE Prophylaxis VTE Risk Assessment Done? Y/N: Yes Risk Level: Moderate
[2017-09-15 23:41] LABS: MAGNESIUM 1.8 mg/dl (1.8-2.4)
[2017-09-15 23:41] LABS: URINE APPEARANCE CLEAR (CLEAR); URINE BILIRUBIN NEG (NEG); URINE COLOR YELLOW; URINE NITRITE NEG (NEG); URINE PH 6.5 (4.5-7.5); URINE SPECIFIC GRAVITY 1.011 (1.000-1.030); UROBILINOGEN NEG (NEG)
[2017-09-15 23:43] LABS: MANUAL MICROSCOPIC REQUIRED? NO; REVIEW REQ? NO
[2017-09-15 23:47] VITALS: BP 106/73; PULSE 83; TEMP 36.8; O2SAT 95; Ht 165.1 cm; Wt 67.0 kg
[2017-09-16] MEDS ORDERED: IV FLUIDS COMPLETED PRN ×2 (00:15→06:15)
[2017-09-16] MEDS: SODIUM CHLORIDE 0.9% 1000ML 1,000 ML IV SCH ×3 (01:17→19:21)
[2017-09-16] MEDS ORDERED: GABAPENTIN 1200MG LOADING DOSE PO ONE (01:30)
[2017-09-16 03:47] VITALS: BP 103/64; PULSE 89; TEMP 36.9; O2SAT 93
[2017-09-16] MEDS ORDERED: POTASSIUM CHLORIDE 10 MEQ TABCR PO ONE (04:30)
[2017-09-16 04:49] LABS: HEMATOCRIT 40.6 % (42-52); MEAN CELL VOLUME 99.3 fL (80-100); MEAN CORPUSCULAR HGB CONC 35.2 g/dl (32-36); RED BLOOD COUNT 4.09 M/uL (4.7-6.1); WHITE BLOOD COUNT 4.97 K/uL (4.8-10.8)
[2017-09-16 05:24] LABS: BUN/CREATININE RATIO 6.1 (10-20); CALCIUM 7.1 mg/dl (8.5-10.1); CKMB/CK RATIO 1.4 (0-3.0); CREATININE 0.58 mg/dl (0.60-1.40); MAGNESIUM 1.6 mg/dl (1.8-2.4); POTASSIUM 3.8 mmol/L (3.5-5.1)
[2017-09-16 06:07] LABS: MEAN PLATELET VOLUME 11.7 fL (7.4-10.4); PLATELET COUNT 96 K/uL (130-400)
[2017-09-16 08:00] VITALS: BP 107/67; PULSE 82; TEMP 36.6; O2SAT 92
[2017-09-16] MEDS ORDERED: PNEUMOCOCCAL POLYSACCHARIDES 25 MCG/0.5 ML VIAL/SYR IM. ONE (08:00)
[2017-09-16] MEDS ORDERED: PNEUMOCOCCAL ADMINISTRATION CHARGE ONE (08:00)
[2017-09-16] MEDS: MULTIVITAMIN TAB PO SCH (08:59)
[2017-09-16] MEDS: THIAMINE HCL 100 MG TAB PO SCH (08:59)
[2017-09-16] MEDS: GABAPENTIN 600MG Q6H DOSE PO SCH ×2 (08:59→13:47)
[2017-09-16] MEDS ORDERED: MAGNESIUM SULFATE 1GM / D5W 1 GM in PREMIXED IN D5W 100 ML IV STA (09:40)
[2017-09-16] MEDS ORDERED: INFLUENZA VIRUS QUAD VACCINE 0.5 ML SYR IM. ONE (10:00)
[2017-09-16] MEDS ORDERED: INFLUENZA ADMINISTRATION CHARGE ONE (10:00)
[2017-09-16 12:00] VITALS: BP 115/82; PULSE 75; TEMP 36.7; O2SAT 93
[2017-09-16 13:01] LABS: CKMB/CK RATIO 1.7 (0-3.0)
[2017-09-16 15:55] VITALS: BP 125/77; PULSE 75; TEMP 36.5; O2SAT 97
[2017-09-16] MEDS: ACETAMINOPHEN 325 MG TAB PO PRN ×2 (17:52→22:29)
[2017-09-16 19:05] VITALS: BP 131/69; PULSE 66; TEMP 36.8; O2SAT 96
--- NOTE | 2017-09-16 19:53 | Progress Note ---
Medicine Progress Note Date & Time of Visit: Sep 16, 2017 at 19:53. Subjective Patient doing ok, still reports having pain in his lower chest/upper abdomen. Also complains of a CERDA. Denies any N/V. States he had black stools earlier today. No overnight events noted. No other complaints. Objective Last 8 Hrs Date Time Temp Pulse Resp B/P (MAP) Pulse Ox O2 Delivery O2 Flow Rate FiO2 09/16/17 19:05 36.8 66 18 131/69 (89) 96 09/16/17 16:00 Room Air 09/16/17 15:55 36.5 75 16 125/77 (93) 97 09/16/17 12:00 36.7 75 16 115/82 (93) 93 Room Air 09/16/17 12:00 Room Air Physical Exam: GENERAL: Patient is in no acute distress. HEENT: No acute trauma, normocephalic, mucous membranes moist, no nasal congestion, no scleral icterus. NECK: No stridor, trachea is midline. LUNGS: Diminished bilaterally, no wheeze, no rhonchi, breath sounds equal. HEART: Without murmurs gallops or rubs, regular rate and rhythm. ABDOMEN: Soft, tender in epigastric area, bowel sounds positive, no hepatosplenomegaly EXTREMITIES: No cyanosis or edema, full range of motion of all the joints without pain or difficulty NEUROLOGIC: Oriented x 3, no acute motor or sensory deficits, no focal weakness. SKIN: No rash, no jaundice, no diaphoresis. Laboratory Results: Last 24 Hours Test 09/16/17 04:29 09/16/17 12:18 White Blood Count 4.97 K/uL Red Blood Count 4.09 M/uL Hemoglobin 14.3 g/dL Hematocrit 40.6 % Mean Corpuscular Volume 99.3 fL Mean Corpuscular Hemoglobin 35.0 pg Mean Corpuscular Hemoglobin Concent 35.2 g/dl RDW Standard Deviation 46.8 fL RDW Coefficient of Variation 13.0 % Platelet Count 96 K/uL Mean Platelet Volume 11.7 fL Sodium Level 142 mmol/L Potassium Level 3.8 mmol/L Chloride Level 113 mmol/L Carbon Dioxide Level 23 mmol/L Anion Gap 6.0 mmol/L Blood Urea Nitrogen 4 mg/dl Creatinine 0.58 mg/dl Est Creatinine Clear Calc Drug Dose 129.6 ml/min Estimated GFR () 135.9 Estimated GFR (Non- 117.2 BUN/Creatinine Ratio 6.1 Random Glucose 79 mg/dl Calcium Level 7.1 mg/dl Magnesium Level 1.6 mg/dl Total Creatine Kinase 101 U/L 101 U/L Creatine Kinase MB 1.4 ng/ml 1.7 ng/ml Creatine Kinase MB Ratio 1.4 1.7 Troponin I 0.023 ng/ml 0.016 ng/ml Assessment & Plan ALCOHOL INTOXICATION: known alcoholism -monitor for withdrawal, has a history of seizures that were possibly related to withdrawal -continue multivitamin, folic acid, thiamine -continue gabapentin protocol -Ativan PRN for agitation -alcohol cessation encouraged SYNCOPE: -possibly from ETOH intoxication and hypovolemia -monitor in tele -TTE from 07/08 shows significant tricuspid regurg, RV dilatation, and pulmonary HTN; no indication to repeat presently -orthostatics -check FOBT to rule out melena -continue IV fluids EPIGASTRIC/CHEST PAIN: -r/o ACS -serial CM negative -lipase normal -monitor in tele Current Inpatient Medications: Current Inpatient Medications Medications (Trade) Dose Ordered Sig/Justin Route Start Time Stop Time Status Last Admin Dose Admin Ioversol (Optiray 320) 100 ml UD PRN IV 09/15/17 19:00 09/19/17 18:59 Sodium Chloride 1,000 ml @ 100 mls/hr Q10H IV 09/15/17 22:32 10/15/17 22:31 09/16/17 19:21 100 MLS/HR Acetaminophen (Tylenol Tab) 650 mg Q4H PRN PO 09/15/17 22:45 10/15/17 22:44 09/16/17 17:52 650 MG Al Hydrox/Mg Hydrox/Simethicone (Maalox Max Susp) 15 ml Q4H PRN PO 09/15/17 22:45 10/15/17 22:44 Magnesium Hydroxide (Milk Of Magnesia Susp) 30 ml Q12H PRN PO 09/15/17 22:45 10/15/17 22:44 Ondansetron HCl (Zofran Inj) 4 mg Q6H PRN IV 09/15/17 22:45 10/15/17 22:44 Trazodone HCl (Desyrel Tab) 150 mg HS PO 09/16/17 21:00 10/16/17 20:59 Lorazepam (Ativan Tab) PRN Dosing -Active Protocol UD PRN PO 09/15/17 22:45 10/15/17 22:44 Multivitamins (Multivitamin Tab) 1 tab QAM PO 09/16/17 09:00 10/16/17 08:59 09/16/17 08:59 1 TAB Folic Acid (Folvite Tab) 1 mg QAM PO 09/16/17 09:00 10/16/17 08:59 09/16/17 09:00 1 MG Thiamine HCl (Vitamin B-1 Tab) 100 mg QAM PO 09/16/17 09:00 10/16/17 08:59 09/16/17 08:59 100 MG Miscellaneous (Iv Fluids Completed) 1 ea PRN PRN N/A 09/16/17 00:15 09/16/18 00:14 Gabapentin (Neurontin Tab) 600 mg Q8H PO 09/16/17 22:00 09/17/17 14:01 Gabapentin (Neurontin Tab) 600 mg Q12H PO 09/18/17 00:00 09/18/17 12:01 Gabapentin (Neurontin Tab) 600 mg Q24H PO 09/19/17 12:00 09/19/17 12:01 Pantoprazole Sodium (Protonix Tab) 40 mg QAM PO 09/17/17 09:00 10/17/17 08:59
[2017-09-16] MEDS ORDERED: TRAZODONE HCL 50 MG TAB PO SCH (21:00)
[2017-09-16] MEDS: GABAPENTIN 600MG Q8H DOSE PO SCH (21:27)
[2017-09-16 23:09] VITALS: BP 95/55; PULSE 77; TEMP 36.8; O2SAT 94
[2017-09-17 03:44] VITALS: BP 103/64; PULSE 92; TEMP 36.9; O2SAT 90
[2017-09-17] MEDS: SODIUM CHLORIDE 0.9% 1000ML 1,000 ML IV SCH (05:23)
[2017-09-17] MEDS: GABAPENTIN 600MG Q8H DOSE PO SCH ×2 (05:54→14:24)
[2017-09-17 07:16] LABS: HEMATOCRIT 40.4 % (42-52); MEAN CELL VOLUME 99.3 fL (80-100); MEAN CORPUSCULAR HEMOGLOBIN 35.1 pg (25-34); MEAN CORPUSCULAR HGB CONC 35.4 g/dl (32-36); RED BLOOD COUNT 4.07 M/uL (4.7-6.1); WHITE BLOOD COUNT 7.13 K/uL (4.8-10.8)
[2017-09-17 07:29] LABS: MEAN PLATELET VOLUME 11.2 fL (7.4-10.4); PLATELET COUNT 71 K/uL (130-400)
[2017-09-17 07:34] VITALS: BP 109/72; PULSE 83; TEMP 37.2; O2SAT 92
[2017-09-17] MEDS: MULTIVITAMIN TAB PO SCH (07:44)
[2017-09-17] MEDS: THIAMINE HCL 100 MG TAB PO SCH (07:44)
[2017-09-17 07:50] LABS: BUN/CREATININE RATIO 10.4 (10-20); CALCIUM 7.5 mg/dl (8.5-10.1); CREATININE 0.63 mg/dl (0.60-1.40); MAGNESIUM 1.6 mg/dl (1.8-2.4); POTASSIUM 3.8 mmol/L (3.5-5.1)
[2017-09-17] MEDS ORDERED: PANTOprazole SOD 40 MG TAB PO SCH (09:00)
[2017-09-17] MEDS ORDERED: MAGNESIUM SULFATE 1GM / D5W 1 GM in PREMIXED IN D5W 100 ML IV STA (09:48)
[2017-09-17 10:50] VITALS: BP 94/62; PULSE 86; TEMP 36.9; O2SAT 91
[2017-09-17 15:26] VITALS: BP 115/71; PULSE 82; TEMP 37.4; O2SAT 92
[2017-09-17] MEDS ORDERED: MULT-890 PO (15:52)
[2017-09-17] MEDS ORDERED: THM100 PO (15:52)
[2017-09-17] MEDS ORDERED: FLV1 PO (15:52)
[2017-09-17] MEDS ORDERED: MGNO400 PO (15:52)
--- NOTE | 2017-09-17 15:57 | Discharge Instructions ---
Discharge Instructions Date of Service Sep 17, 2017. Admission Reason for Admission: Alcohol Intoxication Discharge Discharge Diagnosis / Problem: Alcohol intoxication, epigastric pain Discharge Goals Goal(s): Therapeutic intervention Activity Recommendations Activity Limitations: resume your previous activity Please refrain from any alcohol use . Instructions / Follow-Up Instructions / Follow-Up Please see Dr. Cr on September 21 at 1:45PM for hospital follow up Current Hospital Diet Patient's current hospital diet: Low Sodium Diet (2gm Na) Discharge Diet Recommended Diet: Low Sodium Diet (2gm Na) Pending Studies Studies pending at discharge: no Medical Emergencies . Who to Call and When: Medical Emergencies: If at any time you feel your situation is an emergency, please call 911 immediately. . Non-Emergent Contact Non-Emergency issues call your: Primary Care Provider . . "Provider Documentation" section prepared by Smiley Olvera. . VTE Core Measure Inpt VTE Proph given/why not?: SCD's
[2017-09-17 16:11] VITALS: BP 115/71; PULSE 82; TEMP 37.4; O2SAT 92
[2017-09-17] MEDS ORDERED: MAGNESIUM OXIDE 400 MG TAB PO SCH (21:00)
[2017-09-18] MEDS ORDERED: GABAPENTIN 600MG Q12H DOSE PO SCH
[2017-09-19] MEDS ORDERED: GABAPENTIN 600MG X1 DOSE PO SCH (12:00)
== END 2017-09-17 16:42 | disposition home or self-care (01) ==
LOC: EDBD 18:33 → C.EDA 18:34 → C.2T 22:35 → ENRESERV 22:54
PROVIDERS: ADMIT Family Medicine; ATTEND Internal Medicine
DX: F10.229 Alcohol dependence with intoxication, unspecified (principal); K70.30 Alcoholic cirrhosis of liver without ascites; J44.9 Chronic obstructive pulmonary disease, unspecified; J45.30 Mild persistent asthma, uncomplicated; K86.1 Other chronic pancreatitis; I48.0 Paroxysmal atrial fibrillation; E03.9 Hypothyroidism, unspecified; I27.20 Pulmonary hypertension, unspecified; D69.6 Thrombocytopenia, unspecified; I81 Portal vein thrombosis; R55 Syncope and collapse; R07.9 Chest pain, unspecified; F41.9 Anxiety disorder, unspecified; Z79.899 Other long term (current) drug therapy; Z72.0 Tobacco use

== ENCOUNTER 2017-10-10 19:46 | Emergency (ER) | payer OTHER ==
[~2017-10-10] VITALS: Ht 182.9 cm; Wt 66.7 kg
[~2017-10-10 19:46] MED LIST changes: -BCTRO; +FLV1 PO; +MGNO400 PO; +MULT-890 PO; -SALI0.6510; +THM100 PO; -TRAZ1TAB52 PO
[2017-10-10 19:52] VITALS: TEMP 36.4; Ht 182.9 cm; Wt 66.7 kg
[2017-10-10 19:58] VITALS: O2SAT 94
--- NOTE | 2017-10-10 20:21 | EMERGENCY ROOM VISIT NOTE ---
History Report prepared by López: Suad Acevedo Under the Supervision of: Dr. Zachary Huynh M.D. First contact with patient: 19:52 Chief Complaint: ALCOHOL OVERDOSE Stated Complaint: ETOH History of Present Illness The patient is a 51 year old male who presents to the Emergency Room with complaints of an episode of an alcohol overdose. Per nursing staff the patient called the ED multiple times today expressing a desire to seek treatment for alcoholism. The patient called an ambulance and was brought to the ED. EMS reports that the patient has been drinking beer for the past 7 hours. The HPI is limited secondary to the patient's intoxication. Source of History: EMS, nursing staff History Limited By: intoxication Onset: CATH LAB NURSE Position: other (global) Quality: other (overdose) Timing: other (episode) Review of Systems ROS is limited secondary to the patient's intoxication. Past Medical & Surgical Medical Problems: (1) Alcohol dependence (2) Alcoholic cirrhosis of liver without ascites (3) Asthma, mild persistent (4) Chronic anxiety (5) Chronic pancreatitis (6) COPD, mild (7) Esophageal varices (8) Hypothyroidism (9) Paroxysmal atrial fibrillation (10) Portal vein thrombosis (11) Pulmonary HTN (12) Thrombocytopenia (13) Tobacco abuse Surgical Problems: (1) H/O colonoscopy (2) History of cholecystectomy (3) History of esophagogastroduodenoscopy (EGD) Family History Blood clots Diabetes mellitus MOTHER FH: CAD (coronary artery disease) FATHER BROTHER FH: leukemia AUNT Hypertension Social History Smoking Status: Current Every Day Smoker Alcohol Use: heavy Drug Use: none Marital Status: Housing Status: lives with family Occupation Status: unemployed Current/Historical Medications Scheduled Folic Acid (Folvite), 1 MG PO QAM Magnesium Oxide (Mg Supplement (Magnesium Oxide), 241.3 MG PO QAM Multiple Vitamin (Daily Sarai), 1 TAB PO QAM Thiamine Hcl (Vitamin B-1), 100 MG PO QAM Trazodone Hcl (Desyrel), 150 MG PO HS Allergies Coded Allergies: Fentanyl (Verified Allergy, Intermediate, RASH ALL OVER BODY, 09/15/17) ALL OVER BODY Physical Exam Vital Signs Date Time Temp Pulse Resp B/P (MAP) Pulse Ox O2 Delivery O2 Flow Rate FiO2 10/10/17 23:04 92 10/10/17 23:02 89 16 90/69 96 Room Air 10/10/17 22:06 82 16 99 10/10/17 22:04 102/62 10/10/17 21:06 85 16 97 10/10/17 21:01 109/49 10/10/17 20:57 110/56 10/10/17 20:46 82 19 95 10/10/17 19:58 94 Room Air 10/10/17 19:54 89 10/10/17 19:52 36.4 92 14 119/71 94 Room Air 10/10/17 19:52 94 Room Air 10/10/17 19:52 119/71 Physical Exam Vital signs reviewed. General: Odor of EtOH in the breath, disheveled 51-year-old male. No signs of trauma. HEENT: Mild scleral injection bilaterally, PERRLA, neck supple, dry mucous membranes. Cardiovascular: Regular rate and rhythm, no extra sounds. Pulmonary: Clear to auscultation bilaterally, normal work of breathing. Abdomen: Soft, nontender, nondistended, positive bowel sounds. Musculoskeletal: Upper and lower extremities atraumatic, no peripheral edema Skin: Warm, dry, no rash. Atraumatic. Neurologic: Patient is currently nonverbal. Medical Decision & Procedures Laboratory Results 10/10/17 20:10 Red Blood Count 4.52, Mean Corpuscular Volume 99.6, Mean Corpuscular Hemoglobin 36.1, Mean Corpuscular Hemoglobin Concent 36.2, Mean Platelet Volume 11.6, Neutrophils (%) (Auto) 49.2, Lymphocytes (%) (Auto) 33.3, Monocytes (%) (Auto) 12.6, Eosinophils (%) (Auto) 4.1, Basophils (%) (Auto) 0.5, Neutrophils # (Auto ) 5.58, Lymphocytes # (Auto) 3.77, Monocytes # (Auto) 1.43, Eosinophils # (Auto ) 0.46, Basophils # (Auto) 0.06 10/10/17 20:10 Test 10/10/17 20:10 White Blood Count 11.33 K/uL (4.8-10.8) Red Blood Count 4.52 M/uL (4.7-6.1) Hemoglobin 16.3 g/dL (14.0-18.0) Hematocrit 45.0 % (42-52) Mean Corpuscular Volume 99.6 fL (80-100) Mean Corpuscular Hemoglobin 36.1 pg (25-34) Mean Corpuscular Hemoglobin Concent 36.2 g/dl (32-36) Platelet Count 120 K/uL (130-400) Mean Platelet Volume 11.6 fL (7.4-10.4) Neutrophils (%) (Auto) 49.2 % Lymphocytes (%) (Auto) 33.3 % Monocytes (%) (Auto) 12.6 % Eosinophils (%) (Auto) 4.1 % Basophils (%) (Auto) 0.5 % Neutrophils # (Auto) 5.58 K/uL (1.4-6.5) Lymphocytes # (Auto) 3.77 K/uL (1.2-3.4) Monocytes # (Auto) 1.43 K/uL (0.11-0.59) Eosinophils # (Auto) 0.46 K/uL (0-0.5) Basophils # (Auto) 0.06 K/uL (0-0.2) RDW Standard Deviation 46.2 fL (36.4-46.3) RDW Coefficient of Variation 12.7 % (11.5-14.5) Immature Granulocyte % (Auto) 0.3 % Immature Granulocyte # (Auto) 0.03 K/uL (0.00-0.02) Urine Color YELLOW Urine Appearance CLEAR (CLEAR) Urine pH 8.5 (4.5-7.5) Urine Specific [place] 1.031 (1.000-1.030) Urine Protein NEG (NEG) Urine Glucose (UA) NEG (NEG) Urine Ketones NEG (NEG) Urine Occult Blood NEG (NEG) Urine Nitrite NEG (NEG) Urine Bilirubin NEG (NEG) Urine Urobilinogen NEG (NEG) Urine Leukocyte Esterase NEG (NEG) Anion Gap 6.0 mmol/L (3-11) Est Creatinine Clear Calc Drug Dose 104.5 ml/min Estimated GFR () 120.3 Estimated GFR (Non- 103.8 BUN/Creatinine Ratio 5.5 (10-20) Calcium Level 8.4 mg/dl (8.5-10.1) Total Bilirubin 1.9 mg/dl (0.2-1) Direct Bilirubin 0.5 mg/dl (0-0.2) Aspartate Amino Transf (AST/SGOT) 62 U/L (15-37) Alanine Aminotransferase (ALT/SGPT) 38 U/L (12-78) Alkaline Phosphatase 110 U/L (45-117) Total Protein 7.5 gm/dl (6.4-8.2) Albumin 2.7 gm/dl (3.4-5.0) Thyroid Stimulating Hormone (TSH) 6.760 uIu/ml (0.300-4.500) Urine Opiates Screen NEG (NEG) Urine Methadone, Qualitative NEG (NEG) Urine Barbiturates NEG (NEG) Urine Phencyclidine (PCP) Level NEG (NEG) Ur Amphetamine/Methamphetamine NEG (NEG) MDMA (Ecstasy) Screen NEG (NEG) Urine Benzodiazepines Screen NEG (NEG) Urine Cocaine Metabolite NEG (NEG) Urine Marijuana (THC) NEG (NEG) Ethyl Alcohol mg/dL 293.0 mg/dl (0-3) Labs reviewed by ED physician. Medications Administered Medications (Trade) Dose Ordered Sig/Justin Route Start Time Stop Time Status Last Admin Dose Admin Ondansetron HCl (Zofran Odt) 4 mg ONE STAT PO 10/10/17 21:16 10/10/17 21:18 DC 10/10/17 21:27 4 MG Folic Acid (Folvite Tab) 1 mg NOW STAT PO 10/10/17 21:16 10/10/17 21:18 DC 10/10/17 21:27 1 MG Thiamine HCl (Vitamin B-1 Tab) 100 mg NOW STAT PO 10/10/17 21:16 10/10/17 21:18 DC 10/10/17 21:27 100 MG ED Course 1951: Past medical records reviewed. The patient was evaluated in room A3. A complete history and physical examination was performed. 2113: The patient is awake and nauseated at this time. 2115: Thiamine HCl 100 mg PO, Folic Acid 1 mg PO, Zofran 4 mg PO Medical Decision Differential diagnosis: Etiologies such as alcohol intoxication, toxicologic, infection, hypoglycemia, electrolyte abnormalities, cardiac sources, intracerebral event, neurologic, as well as others were entertained. This is a 51-year-old male who presents emergency department complaining of alcohol intoxication. The patient has been seen normal times from alcohol intoxication the past. He was given Zofran as well as thiamine and folic acid. His alcohol level was obtained. He was placed in the prone position on bed. Aspiration precautions were taken. The patient urinated himself multiple times while in the emergency department. He is placed on the monitor and observed for a lengthy period of time. I did discuss the case with case management who will offer the patient outpatient rehabilitation Medication Reconcilliation Current Medication List: was personally reviewed by me Blood Pressure Screening Patient's blood pressure: Normal blood pressure Impression Primary Impression: Alcohol intoxication Scribe Attestation The scribe's documentation has been prepared under my direction and personally reviewed by me in its entirety. I confirm that the note above accurately reflects all work, treatment, procedures, and medical decision making performed by me. Departure Information Referrals Darrius Cr M.D. (MEDICAL) (PCP) Patient Instructions My [facility] Problem Qualifiers Primary Impression: Alcohol intoxication Complication of substance-induced condition: uncomplicated Qualified Codes: F10.920 - Alcohol use, unspecified with intoxication, uncomplicated
[2017-10-10] MEDS ORDERED: TRAZ1TAB52 PO (20:24)
[2017-10-10 20:48] LABS: BASO % 0.5 %; BASO ABS # 0.06 K/uL (0-0.2); EOS % 4.1 %; EOS ABS # 0.46 K/uL (0-0.5); HEMOGLOBIN 16.3 g/dL (14.0-18.0); IG# 0.03 K/uL (0.00-0.02); LYMPH % 33.3 %; LYMPH ABS # 3.77 K/uL (1.2-3.4); MEAN CELL VOLUME 99.6 fL (80-100); MEAN CORPUSCULAR HEMOGLOBIN 36.1 pg (25-34); MEAN CORPUSCULAR HGB CONC 36.2 g/dl (32-36); MEAN PLATELET VOLUME 11.6 fL (7.4-10.4); MONO % 12.6 %; MONO ABS # 1.43 K/uL (0.11-0.59); NEUT % 49.2 %; NEUT ABS # 5.58 K/uL (1.4-6.5); PLATELET COUNT 120 K/uL (130-400); RED CELL DISTRIBUTION WIDTH CV 12.7 % (11.5-14.5); RED CELL DISTRIBUTION WIDTH SD 46.2 fL (36.4-46.3); WHITE BLOOD COUNT 11.33 K/uL (4.8-10.8)
[2017-10-10] MEDS ORDERED: FOLI1TAB8 PO (21:06)
[2017-10-10] MEDS ORDERED: THIA100T11 PO (21:06)
[2017-10-10] MEDS ORDERED: MAGN400T7 PO (21:06)
[2017-10-10] MEDS ORDERED: MULT-411 PO (21:06)
[2017-10-10 21:14] LABS: ALBUMIN 2.7 gm/dl (3.4-5.0); CALCIUM 8.4 mg/dl (8.5-10.1); CREATININE 0.78 mg/dl (0.60-1.40); POTASSIUM 3.3 mmol/L (3.5-5.1)
[2017-10-10] MEDS ORDERED: ONDANSETRON 4MG OD TAB PO STA (21:16)
[2017-10-10] MEDS ORDERED: THIAMINE HCL 100 MG TAB PO STA (21:16)
[2017-10-10 21:25] LABS: TOTAL PROTEIN 7.5 gm/dl (6.4-8.2)
[2017-10-11 06:00] VITALS: BP 89/48
[2017-10-11 06:06] VITALS: PULSE 67; O2SAT 96
== END 2017-10-11 07:10 | disposition home or self-care (01) ==
LOC: EDBD 19:46 → C.EDA 19:46
DX: F10.220 Alcohol dependence with intoxication, uncomplicated (principal); Y90.8 Blood alcohol level of 240 mg/100 ml or more; J45.909 Unspecified asthma, uncomplicated; J44.9 Chronic obstructive pulmonary disease, unspecified; I27.20 Pulmonary hypertension, unspecified; F17.200 Nicotine dependence, unspecified, uncomplicated; Z87.19 Personal history of other diseases of the digestive system; Z83.2 Family history of diseases of the blood and blood-forming organs and certain disorders involving the immune mechanism; Z83.3 Family history of diabetes mellitus; Z82.49 Family history of ischemic heart disease and other diseases of the circulatory system; Z80.6 Family history of leukemia

== ENCOUNTER 2017-10-16 18:28 | Emergency (ER) | payer OTHER ==
[~2017-10-16] VITALS: Ht 162.6 cm; Wt 51.9 kg
[~2017-10-16 18:28] MED LIST changes: -FLV1 PO; +FOLI1TAB8 PO; +MAGN400T7 PO; -MGNO400 PO; +MULT-411 PO; -MULT-890 PO; +THIA100T11 PO; -THM100 PO; +TRAZ1TAB52 PO
[2017-10-16 18:45] VITALS: Ht 162.6 cm; Wt 51.9 kg
[2017-10-16 19:50] VITALS: BP 104/61; PULSE 89; TEMP 37.1; O2SAT 100
--- NOTE | 2017-10-16 19:57 | EMERGENCY ROOM VISIT NOTE ---
History First contact with patient: 18:33 Chief Complaint: DETOX REQUEST Stated Complaint: ETOH Nursing Triage Summary: Pt arrived via ambulance BLS. EMS stated that the pt called 911 because he needs help with his drinking. Pt arrived lethargic and would not follow command. Pt was assisted to the hospital bed and assisted into paper scrubs. Pt denies any injury to self. Pt denies any homicidal or suicidal ideation. Security present. Pt states that he drank an unknown amount of Get[employer] and that he needs help. Vitals are WNL History of Present Illness The patient is a 51 year old male who presents to the Emergency Room with complaints of wanting help to stop drinking. He said he wants help with his drinking. He was here on the 10 of October with similar complaints and was discharged home. He is yelling while I am in the room and states that "the nurses here treat me like shit, I am going to [facility] this hospital". He does say that he would like help with his drinking problem. He has been drinking beer all day. He denies any thoughts of SI. He denies having any weapons at home. Review of Systems unable to obtain ROS as patient is intoxicated and not answering questions appropriately Past Medical/Surgical History Medical Problems: (1) Alcohol dependence (2) Alcoholic cirrhosis of liver without ascites (3) Asthma, mild persistent (4) Chronic anxiety (5) Chronic pancreatitis (6) COPD, mild (7) Esophageal varices (8) Hypothyroidism (9) Paroxysmal atrial fibrillation (10) Portal vein thrombosis (11) Pulmonary HTN (12) Thrombocytopenia (13) Tobacco abuse Surgical Problems: (1) H/O colonoscopy (2) History of cholecystectomy (3) History of esophagogastroduodenoscopy (EGD) Family History Blood clots Diabetes mellitus MOTHER FH: CAD (coronary artery disease) FATHER BROTHER FH: leukemia AUNT Hypertension Social History Smoking Status: Current Every Day Smoker Alcohol Use: heavy Drug Use: none Marital Status: Housing Status: lives with family Occupation Status: unemployed Current/Historical Medications Scheduled Folic Acid (Folvite), 1 MG PO QAM Magnesium Oxide (Mg Supplement (Magnesium Oxide), 241.3 MG PO QAM Multiple Vitamin (Daily Sarai), 1 TAB PO QAM Thiamine Hcl (Vitamin B-1), 100 MG PO QAM Trazodone Hcl (Desyrel), 150 MG PO HS Allergies NKDA Physical Exam Vital Signs Date Time Temp Pulse Resp B/P (MAP) Pulse Ox O2 Delivery O2 Flow Rate FiO2 10/16/17 19:50 37.1 89 16 104/61 100 10/16/17 18:45 37.1 89 16 104/61 100 Room Air Physical Exam General: intoxicated male and appears disheveled and with poor dentition. Is unable to sit still and is very fidgety. HEENT: Head - normocephalic and atraumatic. Pupils are equal, round, and reactive to light. Extraocular eye muscles are intact and sclera are anicteric. Mouth - moist buccal mucosa. Oropharynx is nonerythematous and there is no tonsillar exudate or edema noted. Very poor denti Neck: Supple; no JVD, nuchal rigidity, cervical lymphadenopathy, or auscultated bruits. Heart: Regular rate and rhythm. There is a normal S1 and S2 with no murmurs, clicks, or gallops appreciated. Lungs: Clear to auscultation bilaterally with no wheezes, rales, or rhonchi. Abdomen: Soft, completely nontender, nondistended, with good bowel sounds. There are no palpable pulsatile masses or hepatosplenomegaly. There is no guarding, rigidity, or rebound noted. Extremities: No evidence of cyanosis, clubbing, or edema. There are easily palpable peripheral pulses. Neuro:The patient is awake and alert, oriented to day, time, and place. Muscle strength is 5/5 in all 4 extremities. The patient has equal director of placement strength and equal pedal push and pull. There are no cerebellar signs. Medical Decision & Procedures Laboratory Results Test 10/16/17 19:16 Urine Color COLORLESS Urine Appearance CLEAR (CLEAR) Urine pH 6.0 (4.5-7.5) Urine Specific [place] <= 1.005 (1.000-1.030) Urine Protein NEG (NEG) Urine Glucose (UA) NEG (NEG) Urine Ketones NEG (NEG) Urine Occult Blood NEG (NEG) Urine Nitrite NEG (NEG) Urine Bilirubin NEG (NEG) Urine Urobilinogen NEG (NEG) Urine Leukocyte Esterase NEG (NEG) Urine Opiates Screen NEG (NEG) Urine Methadone, Qualitative NEG (NEG) Urine Barbiturates NEG (NEG) Urine Phencyclidine (PCP) Level NEG (NEG) Ur Amphetamine/Methamphetamine NEG (NEG) MDMA (Ecstasy) Screen NEG (NEG) Urine Benzodiazepines Screen NEG (NEG) Urine Cocaine Metabolite NEG (NEG) Urine Marijuana (THC) NEG (NEG) ED Course 1899: patient was seen in A5 and a full history and examination was performed 1919: I discussed the case with Dr. Diaz and I ordered a lab workup 1944: Dr. Diaz went to see the patient and she said he was going to be picked up by his mother and go home 1945: I wrote up the patients paperwork and I discharged the patient Medical Decision Prior records/ancillary studies reviewed. Triage Nursing notes reviewed. Additional history obtained from []. The patient's history was concerning for altered mental status and a possible alcohol overdose. Differential diagnosis: Etiologies such as alcohol intoxication, toxicologic, infection, hypoglycemia, electrolyte abnormalities, cardiac sources, intracerebral event, neurologic, as well as others were entertained. The patient is a 51 year old male with alcohol dependence that has been here on several occasions for similar complaints. He was seen at the bedside and it was decided that we would medically clear him and then set him up rehab; however, he informed Dr. Diaz that he was going to get his mom to pick him up and take him home. Impression Primary Impression: Alcohol intoxication Departure Information Referrals No Doctor, Assigned (PCP) Forms WORK / SCHOOL INSTRUCTIONS, HOME CARE DOCUMENTATION FORM, IMPORTANT VISIT INFORMATION Patient Instructions [facility] Additional Instructions Please try your best to stop drinking alcohol. If you feel that you are going to harm yourself or others then please phone the police or come to the emergency department. Please follow up with your family doctor to help with your alcohol intake. Problem Qualifiers Primary Impression: Alcohol intoxication Complication of substance-induced condition: uncomplicated Qualified Codes: F10.920 - Alcohol use, unspecified with intoxication, uncomplicated
--- NOTE | 2017-10-16 23:19 | EMERGENCY ROOM VISIT NOTE ---
ED Visit Note First contact with patient: 18:33 Resident Physician Supervision Note: I interviewed and examined the patient. Discussed with Dr. Eli and agree with findings and plan as documented in the note. Upon my evaluation the patient, he denies suicidal or homicidal ideation. He does appear to be significantly intoxicated. He states he is tired of drinking alcohol and would like help. The patient was informed that he would need to be evaluated medically and a blood alcohol level would be obtained. The patient's stated he was going to call his parents for a ride home as he did not want to be in the ER tonight. He was again offered medical clearance and evaluation for drug and alcohol rehabilitation however he has declined. With a sober ride home, I feel the patient is stable for outpatient follow-up. He will return to the ER for worsening of symptoms or any medical concerns. Documented By: Jessica Diaz
== END 2017-10-16 19:51 | disposition home or self-care (01) ==
LOC: EDBD 18:28 → C.EDA 18:29
DX: F10.229 Alcohol dependence with intoxication, unspecified (principal); K70.30 Alcoholic cirrhosis of liver without ascites; J45.30 Mild persistent asthma, uncomplicated; F41.8 Other specified anxiety disorders; K86.1 Other chronic pancreatitis; J44.9 Chronic obstructive pulmonary disease, unspecified; E03.9 Hypothyroidism, unspecified; I48.0 Paroxysmal atrial fibrillation; I27.20 Pulmonary hypertension, unspecified; F17.200 Nicotine dependence, unspecified, uncomplicated; Z82.49 Family history of ischemic heart disease and other diseases of the circulatory system; Z83.3 Family history of diabetes mellitus; Z80.6 Family history of leukemia

== ENCOUNTER 2017-11-03 22:34 | Emergency (ER) | payer OTHER ==
[~2017-11-03] VITALS: Ht 165.1 cm; Wt 67.0 kg
[2017-11-03 22:46] VITALS: TEMP 36.6; Ht 165.1 cm; Wt 67.0 kg
[2017-11-03 22:53] VITALS: O2SAT 95
[2017-11-03] MEDS ORDERED: MAGN400T5 PO (23:17)
[2017-11-03 23:19] LABS: CALCIUM 8.1 mg/dl (8.5-10.1); CREATININE 0.86 mg/dl (0.60-1.40); POTASSIUM 3.3 mmol/L (3.5-5.1)
--- NOTE | 2017-11-04 04:24 | EMERGENCY ROOM VISIT NOTE ---
History First contact with patient: 22:39 Chief Complaint: ALCOHOL OVERDOSE Stated Complaint: ETOH Nursing Triage Summary: Brought by EMS Found on friends kitchen floor. Bump on center of forehead. History of Present Illness The patient is a 51 year old male who presents to the Emergency Room via EMS for evaluation of alcohol overdose. The patient was reportedly at a friend's house and fell onto his forehead on the kitchen floor. He admits to drinking alcohol tonight. He denies any drug use. The patient has a long history of alcohol abuse. He denies any complaints at this time. Review of Systems A complete 10 point review of systems was reviewed with the patient with pertinent positives and negatives as per history of present illness. All else were negative. Past Medical/Surgical History Medical Problems: (1) Alcohol dependence (2) Alcoholic cirrhosis of liver without ascites (3) Asthma, mild persistent (4) Chronic anxiety (5) Chronic pancreatitis (6) COPD, mild (7) Esophageal varices (8) Hypothyroidism (9) Paroxysmal atrial fibrillation (10) Portal vein thrombosis (11) Pulmonary HTN (12) Thrombocytopenia (13) Tobacco abuse Surgical Problems: (1) H/O colonoscopy (2) History of cholecystectomy (3) History of esophagogastroduodenoscopy (EGD) Family History Blood clots Diabetes mellitus MOTHER FH: CAD (coronary artery disease) FATHER BROTHER FH: leukemia AUNT Hypertension Social History Smoking Status: Current Every Day Smoker Alcohol Use: heavy Drug Use: none Marital Status: Housing Status: lives with family Occupation Status: unemployed Current/Historical Medications Scheduled Folic Acid (Folvite), 1 MG PO QAM Magnesium Oxide (Mag-Ox), 400 MG PO DAILY Multiple Vitamin (Daily Sarai), 1 TAB PO QAM Thiamine Hcl (Vitamin B-1), 100 MG PO QAM Trazodone Hcl (Desyrel), 150 MG PO HS Physical Exam Vital Signs Date Time Temp Pulse Resp B/P (MAP) Pulse Ox O2 Delivery O2 Flow Rate FiO2 11/04/17 08:15 87 18 98/61 93 11/04/17 07:30 89 18 97/60 93 Room Air 11/04/17 05:51 84 18 96/70 95 Room Air 11/04/17 04:18 84 18 94/62 96 Room Air 11/04/17 02:39 83 18 91/61 94 Room Air 11/04/17 02:08 84 11/04/17 01:40 82 18 88/44 95 Room Air 11/03/17 23:29 91 18 97/66 98 Room Air 11/03/17 22:53 95 Room Air 11/03/17 22:46 36.6 91 18 96/59 96 Room Air 11/03/17 22:41 98 Physical Exam VITALS: Vitals are noted on the nurse's note and reviewed by myself. Vital signs stable. GENERAL: This is a 51-year-old male, lying on his side in bed, appears to be visibly intoxicated, smells of ETOH. SKIN: The skin was without erythema, edema, or bruising. HEAD: Normocephalic atraumatic. EARS: External auditory canals clear. No hemotympanum. EYES: Pupils equal round and reactive to light and accommodation. NOSE: No deformities noted. MOUTH: No loose or chipped teeth. NECK: No cervical spine tenderness. HEART: Regular rate and rhythm without murmurs gallops or rubs. LUNGS: Clear to auscultation bilaterally without wheezes, rales or rhonchi. ABDOMEN: Soft, nontender. MUSCULOSKELETAL: Full range of motion throughout. Strength intact throughout. NEURO: Patient was alert and oriented to person place and time. Speech slurred. Gross sensation intact. Patient cooperative with examiner. Medical Decision & Procedures ER Provider Diagnostic Interpretation: CT HEAD: No ICH, mass effect or edema. No skull fracture. Small frontal scalp contusion. CT C SPINE: No acute fracture or malalignment. Cervical spondylosis greatest at the C6-7 level with facet arthrosis greatest along the left aspect of C3-4. Apical pulmonary emphysematous changes. Addendum: Incidental goitrous appearance of the thyroid gland. Radiologist: Juan Ramon Demarco MD Laboratory Results 11/03/17 22:52 Test 11/03/17 22:52 Anion Gap 9.0 mmol/L (3-11) Est Creatinine Clear Calc Drug Dose 87.4 ml/min Estimated GFR () 115.6 Estimated GFR (Non- 99.7 BUN/Creatinine Ratio 5.8 (10-20) Calcium Level 8.1 mg/dl (8.5-10.1) Ethyl Alcohol mg/dL 341.9 mg/dl (0-3) Medical Decision Differential diagnosis includes alcohol intoxication, drug use, infection, hypoglycemia, head trauma, among others. The patient is a 51-year-old male well-known to the emergency department who presents today for evaluation of probable alcohol intoxication. Labs revealed an alcohol of 341.9. Kidney function was found to be within normal limits. Labs were otherwise unremarkable. CT of the head and neck were unremarkable. The patient was placed on the radiation monitor and placed in the prone position. They were monitored for an appropriate amount of time and when they were more sober, they were reassessed and discharged home in a taxi. The patient was advised not to drink anymore alcohol today and to follow-up with [facility] for any further concerns. Medication Reconcilliation Current Medication List: was personally reviewed by me Blood Pressure Screening Patient's blood pressure: Low blood pressure (patient's baseline) Impression Primary Impression: Alcohol intoxication Departure Information Dispostion Home / Self-Care Condition GOOD Referrals No Doctor, Assigned (PCP) Forms HOME CARE DOCUMENTATION FORM, IMPORTANT VISIT INFORMATION Patient Instructions My [facility] [employer] Additional Instructions Do not drink any more alcohol today. Follow-up with your primary care provider. CT scan of your head was done and was negative. For pain control, you can use the following bral-cgt-cxskero medicines (if >12 yo): - Regular strength (325mg/tab) Tylenol (acetaminophen) 2 tabs every 4-6 hours as needed. Do not exceed 12 tablets in a 24 hour period. Avoid taking more than 4 grams (4000 mg) of Tylenol per day. This includes any other sources of acetaminophen you may take on a regular basis. - Regular strength (200 mg/tab) Advil (ibuprofen) 1-2 tabs every 4-6 hours as needed. Do not exceed a dose of 3200 mg per day. Problem Qualifiers Primary Impression: Alcohol intoxication Complication of substance-induced condition: uncomplicated Qualified Codes: F10.920 - Alcohol use, unspecified with intoxication, uncomplicated
[2017-11-04 08:15] VITALS: BP 98/61; PULSE 87; O2SAT 93
--- NOTE | 2017-11-04 08:24 | DIAGNOSTIC IMAGING REPORT ---
CT OF THE HEAD WITHOUT CONTRAST CLINICAL HISTORY: etoh, head injury COMPARISON STUDY: Head CT September 15, 2017. CT DOSE: 783.58 mGy.cm TECHNIQUE: Helical axial images of the head were obtained without IV contrast. Automated exposure control was utilized for the study. A dose lowering technique was utilized adhering to the principles of ALARA. FINDINGS: No acute intracranial hemorrhage, midline shift or mass effect is present. Ventricular system is normal. Basilar cisterns are patent. There are no extra-axial collections. White matter hypodensities are unchanged and suggest small vessel disease. There are no findings to suggest acute dural sinus thrombosis or acute territorial infarct. There is a small forehead contusion with no calvarial fracture. IMPRESSION: 1. No acute intracranial findings. 2. Small forehead contusion with no calvarial fracture. Electronically signed by: Chuy Rodríguez M.D. 11/04/2017 8:23 AM Dictated Date/Time: 11/04/2017 8:21 AM
--- NOTE | 2017-11-04 08:27 | DIAGNOSTIC IMAGING REPORT ---
CT OF THE CERVICAL SPINE WITHOUT CONTRAST CLINICAL HISTORY: etoh, head injury COMPARISON STUDY: Cervical spine CT September 15, 2017. TECHNIQUE: Helical axial images of the cervical spine were obtained without IV contrast. Sagittal and coronal reconstructions were viewed. A dose lowering technique was utilized adhering to the principles of ALARA. FINDINGS: Alignment of the cervical spine is anatomic. Craniocervical junction is intact. There is no acute cervical spine fracture. There is moderate disc space narrowing with osteophytosis at C6-C7. A thyroid goiter is again noted. There is no prevertebral edema. IMPRESSION: No acute cervical spine fracture or subluxation. Electronically signed by: Chuy Rodríguez M.D. 11/04/2017 8:25 AM Dictated Date/Time: 11/04/2017 8:23 AM
== END 2017-11-04 08:39 | disposition home or self-care (01) ==
LOC: EDBD 22:34 → C.EDB 22:34
DX: F10.129 Alcohol abuse with intoxication, unspecified (principal); Y90.8 Blood alcohol level of 240 mg/100 ml or more; W01.198A Fall on same level from slipping, tripping and stumbling with subsequent striking against other object, initial encounter; K70.30 Alcoholic cirrhosis of liver without ascites; J44.9 Chronic obstructive pulmonary disease, unspecified; I27.20 Pulmonary hypertension, unspecified; F17.200 Nicotine dependence, unspecified, uncomplicated; Z83.3 Family history of diabetes mellitus; Z82.49 Family history of ischemic heart disease and other diseases of the circulatory system; Z80.6 Family history of leukemia; Z83.2 Family history of diseases of the blood and blood-forming organs and certain disorders involving the immune mechanism

== ENCOUNTER 2017-11-08 19:54 | Emergency (ER) | payer OTHER ==
[~2017-11-08] VITALS: Ht 165.1 cm; Wt 69.0 kg
[~2017-11-08 19:54] MED LIST changes: +MAGN400T5 PO; -MAGN400T7 PO
[2017-11-08 19:57] VITALS: BP 115/82; TEMP 36.6; O2SAT 96; Ht 165.1 cm; Wt 69.0 kg
[2017-11-08 20:01] VITALS: O2SAT 96
[2017-11-08 20:35] VITALS: PULSE 88
== END 2017-11-08 21:00 | disposition left against medical advice (07) ==
LOC: EDBD 19:54 → C.EDC 19:55
DX: R07.9 Chest pain, unspecified (principal)

== ENCOUNTER 2017-11-18 18:50 | Emergency (ER) | payer OTHER ==
[~2017-11-18] VITALS: Ht 165.1 cm; Wt 68.2 kg
[2017-11-18] MEDS ORDERED: SODIUM CHLORIDE 0.9% 1000ML 1,000 ML IV STA (18:57)
--- NOTE | 2017-11-18 18:59 | EMERGENCY ROOM VISIT NOTE ---
History Report prepared by López: Nishant Powers Under the Supervision of: Laine SadlerO. First contact with patient: 18:51 Chief Complaint: ALCOHOL OVERDOSE Stated Complaint: ETOH History of Present Illness The patient is a 52 year old male who presents to the Emergency Room with complaints of worsening alcohol intoxication since this morning. The patient called the ED stating that he needed help due to his alcoholism and emergency services were notified. He reports drinking six 32 ounce beers today. He reports chest pain and shortness of breath. He currently rates his discomfort an 8/10 in severity. He denies any falls or injuries. He reports vomiting once today. He reports urinating blood today. He denies any past history of blood in urine. He is a current smoker. He reports a history of liver and lung problems. He has a history of seizures from alcohol use. He is unsure of any history of delirium tremens. Source of History: patient Onset: since this morning Position: other (global ) Symptom Intensity: 8/10 Quality: other (alcohol intoxication) Timing: worsening Associated Symptoms: + chest pain, + SOB, + vomiting, + urinary symptoms ( blood in urine) Note: He denies any falls or injuries. Review of Systems See HPI for pertinent positives & negatives. A total of 10 systems reviewed and were otherwise negative. Past Medical & Surgical Medical Problems: (1) Alcohol dependence (2) Alcoholic cirrhosis of liver without ascites (3) Asthma, mild persistent (4) Chronic anxiety (5) Chronic pancreatitis (6) COPD, mild (7) Esophageal varices (8) Hypothyroidism (9) Paroxysmal atrial fibrillation (10) Portal vein thrombosis (11) Pulmonary HTN (12) Thrombocytopenia (13) Tobacco abuse Surgical Problems: (1) H/O colonoscopy (2) History of cholecystectomy (3) History of esophagogastroduodenoscopy (EGD) Family History Blood clots Diabetes mellitus MOTHER FH: CAD (coronary artery disease) FATHER BROTHER FH: leukemia AUNT Hypertension Social History Smoking Status: Current Every Day Smoker Alcohol Use: heavy Drug Use: none Marital Status: Housing Status: lives with family Occupation Status: unemployed Current/Historical Medications Scheduled Trazodone Hcl (Desyrel), 150 MG PO HS Allergies Coded Allergies: Fentanyl (Verified Allergy, Intermediate, RASH ALL OVER BODY, 11/03/17) ALL OVER BODY Physical Exam Vital Signs Date Time Temp Pulse Resp B/P (MAP) Pulse Ox O2 Delivery O2 Flow Rate FiO2 11/19/17 06:36 73 20 94 11/19/17 06:31 103/68 11/19/17 06:06 95 22 96 11/19/17 06:01 111/73 11/19/17 06:00 80 18 92 11/19/17 05:31 96/57 11/19/17 05:30 66 22 92 11/19/17 05:00 83 19 134/72 92 11/19/17 04:47 67 18 107/78 92 Room Air 11/19/17 03:17 80 11/19/17 03:01 103/67 11/19/17 03:00 74 20 93 11/19/17 02:31 94/65 11/19/17 02:30 73 21 92 11/19/17 02:00 83 19 115/65 92 11/19/17 01:40 94/63 11/19/17 01:31 94/63 11/19/17 01:00 73 22 105/77 92 11/19/17 00:57 89/48 11/19/17 00:01 76 17 95/51 94 Room Air 11/19/17 00:00 76 23 95/51 91 11/18/17 23:02 87 11/18/17 22:08 87 16 93/66 93 Room Air 11/18/17 20:48 88 18 101/68 96 Room Air 11/18/17 20:04 84 18 109/81 94 Room Air 11/18/17 19:37 80 16 104/67 94 Room Air 11/18/17 19:12 86 11/18/17 19:03 36.8 97 16 116/76 98 Room Air Physical Exam GENERAL: alert, well appearing, well nourished, no distress, non-toxic. Smells of ETOH EYE EXAM: normal conjunctiva, PERRL and EOM's grossly intact OROPHARYNX: no exudate, no erythema, lips, buccal mucosa, and tongue normal and mucous membranes are moist. poor dentition NECK: supple, no nuchal rigidity, no adenopathy, non-tender LUNGS: decreased breath sounds, no wheezes, rhonchi, or rales. Normal chest wall mechanics HEART: no murmurs, S1 normal and S2 normal ABDOMEN: abdomen soft, non-tender, normo-active bowel sounds, no masses, no rebound or guarding. BACK: Back is symmetrical on inspection and there is no deformity, no midline tenderness, no CVA tenderness. SKIN: no rashes and no bruising UPPER EXTREMITIES: upper extremities are grossly normal. LOWER EXTREMITIES: No pitting edema. NEURO EXAM: Normal sensorium, cranial nerves II-XII grossly intact, normal speech, no gross weakness of arms, no gross weakness of legs. Medical Decision & Procedures ER Provider Diagnostic Interpretation: Radiology results have been interpreted by the radiologist and reviewed by me. CHEST ONE VIEW PORTABLE CLINICAL HISTORY: chest pain dyspnea COMPARISON STUDY: 09/15/2017 FINDINGS: The bones soft tissues and hemidiaphragms are normal. The cardiomediastinal silhouette is normal. The lungs are clear. The pulmonary vasculature is prominent centrally which is considered a chronic finding in this patient. IMPRESSION: Chronic change. No acute process. The above report was generated using voice recognition software. It may contain grammatical, syntax or spelling errors. Electronically signed by: Jean Pereyra M.D. 11/18/2017 8:53 PM Dictated Date/Time: 11/18/2017 8:53 PM Laboratory Results 11/18/17 19:15 Red Blood Count 4.56, Mean Corpuscular Volume 98.0, Mean Corpuscular Hemoglobin 35.7, Mean Corpuscular Hemoglobin Concent 36.5, Mean Platelet Volume 11.1, Neutrophils (%) (Auto) 49.4, Lymphocytes (%) (Auto) 37.9, Monocytes (%) (Auto) 8.2, Eosinophils (%) (Auto) 3.9, Basophils (%) (Auto) 0.5, Neutrophils # (Auto) 4.34, Lymphocytes # (Auto) 3.32, Monocytes # (Auto) 0.72, Eosinophils # (Auto) 0.34, Basophils # (Auto) 0.04 11/18/17 19:15 Test 11/18/17 19:00 11/18/17 19:15 11/18/17 20:24 Urine Opiates Screen NEG (NEG) Urine Methadone, Qualitative NEG (NEG) Urine Barbiturates NEG (NEG) Urine Phencyclidine (PCP) Level NEG (NEG) Ur Amphetamine/Methamphetamine NEG (NEG) MDMA (Ecstasy) Screen NEG (NEG) Urine Benzodiazepines Screen NEG (NEG) Urine Cocaine Metabolite NEG (NEG) Urine Marijuana (THC) NEG (NEG) White Blood Count 8.77 K/uL (4.8-10.8) Red Blood Count 4.56 M/uL (4.7-6.1) Hemoglobin 16.3 g/dL (14.0-18.0) Hematocrit 44.7 % (42-52) Mean Corpuscular Volume 98.0 fL (80-100) Mean Corpuscular Hemoglobin 35.7 pg (25-34) Mean Corpuscular Hemoglobin Concent 36.5 g/dl (32-36) Platelet Count 137 K/uL (130-400) Mean Platelet Volume 11.1 fL (7.4-10.4) Neutrophils (%) (Auto) 49.4 % Lymphocytes (%) (Auto) 37.9 % Monocytes (%) (Auto) 8.2 % Eosinophils (%) (Auto) 3.9 % Basophils (%) (Auto) 0.5 % Neutrophils # (Auto) 4.34 K/uL (1.4-6.5) Lymphocytes # (Auto) 3.32 K/uL (1.2-3.4) Monocytes # (Auto) 0.72 K/uL (0.11-0.59) Eosinophils # (Auto) 0.34 K/uL (0-0.5) Basophils # (Auto) 0.04 K/uL (0-0.2) RDW Standard Deviation 43.6 fL (36.4-46.3) RDW Coefficient of Variation 12.2 % (11.5-14.5) Immature Granulocyte % (Auto) 0.1 % Immature Granulocyte # (Auto) 0.01 K/uL (0.00-0.02) Prothrombin Time 11.7 SECONDS (9.0-12.0) Prothromb Time International Ratio 1.1 (0.9-1.1) Anion Gap 12.0 mmol/L (3-11) Est Creatinine Clear Calc Drug Dose 112.6 ml/min Estimated GFR () 127.9 Estimated GFR (Non- 110.4 BUN/Creatinine Ratio 6.5 (10-20) Calcium Level 7.9 mg/dl (8.5-10.1) Phosphorus Level 2.8 mg/dl (2.5-4.9) Magnesium Level 1.8 mg/dl (1.8-2.4) Total Bilirubin 1.5 mg/dl (0.2-1) Aspartate Amino Transf (AST/SGOT) 54 U/L (15-37) Alanine Aminotransferase (ALT/SGPT) 29 U/L (12-78) Alkaline Phosphatase 99 U/L (45-117) Total Protein 7.0 gm/dl (6.4-8.2) Albumin 2.4 gm/dl (3.4-5.0) Globulin 4.6 gm/dl (2.5-4.0) Albumin/Globulin Ratio 0.5 (0.9-2) Lipase 226 U/L (73-393) Thyroid Stimulating Hormone (TSH) 4.750 uIu/ml (0.300-4.500) Ethyl Alcohol mg/dL 296.0 mg/dl (0-3) Troponin I < 0.015 ng/ml (0-0.045) Laboratory results per my review. Medications Administered Medications (Trade) Dose Ordered Sig/Justin Route Start Time Stop Time Status Last Admin Dose Admin Sodium Chloride 1,000 ml @ 250 mls/hr Q4H STAT IV 11/18/17 18:57 11/18/17 22:56 DC 11/18/17 19:37 250 MLS/HR Folic Acid (Folvite Tab) 1 mg NOW STAT PO 11/18/17 20:09 11/18/17 20:11 DC 11/18/17 20:48 1 MG Thiamine HCl (Vitamin B-1 Tab) 100 mg NOW STAT PO 11/18/17 20:09 11/18/17 20:11 DC 11/18/17 20:48 100 MG Pantoprazole Sodium 40 mg/ Syringe 10 ml @ 5 mls/min NOW ONCE IV 11/18/17 20:15 11/18/17 20:16 DC 11/18/17 20:48 5 MLS/MIN Potassium Chloride (Klor-Con M10) 40 meq NOW STAT PO 11/18/17 22:36 11/18/17 22:37 DC 11/18/17 22:36 40 MEQ ECG Indication: other (alcohol intoxication) Rate (beats per minute): 95 Rhythm: sinus rhythm Findings: PAC, no acute ischemic change, other (Normal axis. Normal intervals. ) Change: EKG: Patient's electrocardiogram per my interpretation. ED Course 1852: The patient was evaluated in room B2. A complete history and physical exam was performed. 7: Ordered Sodium Chloride 1,000 ml @ 250 mls/hr IV 2004: I reassessed the patient at this time. He is resting. 2008: Ordered Thiamine HCl 100 mg PO and Folic Acid 1 mg PO 2015: Ordered Pantoprazole Sodium 40 mg/Syringe 10 ml @ 5 mls/min IV 0: I reassessed the patient at this time. He is resting. 2231: I reassessed the patient at this time. He is resting. His vitals are stable. 0129: Pt awakes easily. Denies pain. VS stable. No complaints at this time. No evidence of tremors or withdrawal symptoms. Medical Decision Differential diagnosis: Etiologies such as alcohol intoxication, toxicologic, infection, hypoglycemia, electrolyte abnormalities, cardiac sources, intracerebral event, neurologic, as well as others were entertained. Patient well known to the emergency department here frequently for alcohol intoxication. No evidence of acute alcohol withdrawal, DTs, or seizures. Patient's electrolytes repleted, given IV fluids, folic acid, and thiamine. Patient denied any pain on repeat exams. Labs and imaging otherwise reassuring. Patient with no active vomiting, and denied any recent black or bloody stools. Patient monitored here to sobriety. Patient cautioned on risks associated with continued alcohol use as he has been cautioned on this previously and has already had says when complications from lung drink alcohol use. Patient verbalized understanding. Discussed with patient symptoms to watch and return for, he verbalized understanding was agreeable with plan. Medication Reconcilliation Current Medication List: was personally reviewed by me Blood Pressure Screening Patient's blood pressure: Normal blood pressure Impression Primary Impression: Alcohol use with intoxication Additional Impressions: Hypokalemia Alcohol abuse Scribe Attestation The scribe's documentation has been prepared under my direction and personally reviewed by me in its entirety. I confirm that the note above accurately reflects all work, treatment, procedures, and medical decision making performed by me. Departure Information Dispostion Home / Self-Care Referrals No Doctor, Assigned (PCP) Patient Instructions My [facility] Additional Instructions Please try to seek help for your alcoholism. Please drink plenty of water. If you have any new or concerning symptoms including new pain, black/bloody stools , vomiting, shaking, dizziness, passing out, please return to the emergency room. Problem Qualifiers
[2017-11-18 19:03] VITALS: TEMP 36.8; Ht 165.1 cm; Wt 68.2 kg
[2017-11-18 19:29] LABS: BASO % 0.5 %; BASO ABS # 0.04 K/uL (0-0.2); EOS % 3.9 %; EOS ABS # 0.34 K/uL (0-0.5); HEMATOCRIT 44.7 % (42-52); HEMOGLOBIN 16.3 g/dL (14.0-18.0); IG# 0.01 K/uL (0.00-0.02); LYMPH % 37.9 %; LYMPH ABS # 3.32 K/uL (1.2-3.4); MEAN CORPUSCULAR HEMOGLOBIN 35.7 pg (25-34); MEAN CORPUSCULAR HGB CONC 36.5 g/dl (32-36); MEAN PLATELET VOLUME 11.1 fL (7.4-10.4); MONO % 8.2 %; MONO ABS # 0.72 K/uL (0.11-0.59); NEUT % 49.4 %; NEUT ABS # 4.34 K/uL (1.4-6.5); PLATELET COUNT 137 K/uL (130-400); RED CELL DISTRIBUTION WIDTH CV 12.2 % (11.5-14.5); RED CELL DISTRIBUTION WIDTH SD 43.6 fL (36.4-46.3); WHITE BLOOD COUNT 8.77 K/uL (4.8-10.8)
[2017-11-18 19:37] LABS: INR 1.1 (0.9-1.1)
[2017-11-18 19:45] LABS: ALBUMIN 2.4 gm/dl (3.4-5.0); ALT/SGPT 29 U/L (12-78); BLOOD UREA NITROGEN 4 mg/dl (7-18); CALCIUM 7.9 mg/dl (8.5-10.1); CARBON DIOXIDE 21 mmol/L (21-32); CREATININE 0.66 mg/dl (0.60-1.40); GLUCOSE 98 mg/dl (70-99); LIPASE 226 U/L (73-393); POTASSIUM 3.1 mmol/L (3.5-5.1); SODIUM 140 mmol/L (136-145)
[2017-11-18 19:56] LABS: ALKALINE PHOSPHATASE 99 U/L (45-117); AST/SGOT 54 U/L (15-37); PHOSPHORUS 2.8 mg/dl (2.5-4.9)
[2017-11-18] MEDS ORDERED: THIAMINE HCL 100 MG TAB PO STA (20:09)
[2017-11-18] MEDS ORDERED: PANTOprazole INJ 40 MG in SYRINGE 0 ML IV ONE (20:15)
--- NOTE | 2017-11-18 20:55 | DIAGNOSTIC IMAGING REPORT ---
CHEST ONE VIEW PORTABLE CLINICAL HISTORY: chest pain dyspnea COMPARISON STUDY: 09/15/2017 FINDINGS: The bones soft tissues and hemidiaphragms are normal. The cardiomediastinal silhouette is normal. The lungs are clear. The pulmonary vasculature is prominent centrally which is considered a chronic finding in this patient. IMPRESSION: Chronic change. No acute process. The above report was generated using voice recognition software. It may contain grammatical, syntax or spelling errors. Electronically signed by: Jean Pereyra M.D. 11/18/2017 8:53 PM Dictated Date/Time: 11/18/2017 8:53 PM
[2017-11-18] MEDS ORDERED: POTASSIUM CHLORIDE 10 MEQ TABCR PO STA (22:36)
[2017-11-19] MEDS ORDERED: POTASSIUM CHLORIDE 10 MEQ TABCR ONE (03:11)
[2017-11-19 06:31] VITALS: BP 103/68
[2017-11-19 06:36] VITALS: PULSE 73; O2SAT 94
== END 2017-11-19 07:05 | disposition home or self-care (01) ==
LOC: EDBD 18:50 → C.EDB 18:51
DX: F10.229 Alcohol dependence with intoxication, unspecified (principal); E87.6 Hypokalemia; R56.9 Unspecified convulsions; R31.9 Hematuria, unspecified; K70.30 Alcoholic cirrhosis of liver without ascites; J45.909 Unspecified asthma, uncomplicated; F41.9 Anxiety disorder, unspecified; F17.200 Nicotine dependence, unspecified, uncomplicated; J44.9 Chronic obstructive pulmonary disease, unspecified; E03.9 Hypothyroidism, unspecified; I48.0 Paroxysmal atrial fibrillation; I27.20 Pulmonary hypertension, unspecified; D69.6 Thrombocytopenia, unspecified; Z86.718 Personal history of other venous thrombosis and embolism; Z88.6 Allergy status to analgesic agent; Z82.49 Family history of ischemic heart disease and other diseases of the circulatory system; Z83.3 Family history of diabetes mellitus; Z83.2 Family history of diseases of the blood and blood-forming organs and certain disorders involving the immune mechanism; Z80.6 Family history of leukemia

== ENCOUNTER 2017-12-07 18:46 | Emergency (ER) | payer OTHER ==
[~2017-12-07] VITALS: Ht 165.1 cm; Wt 67.9 kg
[2017-12-07 18:49] VITALS: TEMP 37.2; O2SAT 98; Ht 165.1 cm; Wt 67.9 kg
[2017-12-07] MEDS ORDERED: MULTI-VITAMIN INFUSION INJ 10 ML, THIAMINE HCL INJ 100 MG, FoLIC ACID INJ 1 MG in SODIU... IV ONE (19:15)
[2017-12-07 19:27] LABS: BASO % 0.6 %; BASO ABS # 0.05 K/uL (0-0.2); EOS % 4.8 %; EOS ABS # 0.41 K/uL (0-0.5); HEMATOCRIT 45.2 % (42-52); HEMOGLOBIN 16.3 g/dL (14.0-18.0); IG# 0.02 K/uL (0.00-0.02); LYMPH % 35.3 %; LYMPH ABS # 2.99 K/uL (1.2-3.4); MEAN CELL VOLUME 99.1 fL (80-100); MEAN CORPUSCULAR HEMOGLOBIN 35.7 pg (25-34); MEAN CORPUSCULAR HGB CONC 36.1 g/dl (32-36); MEAN PLATELET VOLUME 10.9 fL (7.4-10.4); MONO % 9.8 %; MONO ABS # 0.83 K/uL (0.11-0.59); NEUT % 49.3 %; NEUT ABS # 4.18 K/uL (1.4-6.5); PLATELET COUNT 126 K/uL (130-400); RED CELL DISTRIBUTION WIDTH CV 12.5 % (11.5-14.5); RED CELL DISTRIBUTION WIDTH SD 45.4 fL (36.4-46.3); WHITE BLOOD COUNT 8.48 K/uL (4.8-10.8)
[2017-12-07 19:35] LABS: INR 1.1 (0.9-1.1); PTT PATIENT 27.8 SECONDS (21.0-31.0)
[2017-12-07 19:45] LABS: ALBUMIN 2.4 gm/dl (3.4-5.0); ALT/SGPT 24 U/L (12-78); AST/SGOT 38 U/L (15-37); BLOOD UREA NITROGEN 4 mg/dl (7-18); CALCIUM 8.2 mg/dl (8.5-10.1); CARBON DIOXIDE 25 mmol/L (21-32); CREATININE 0.69 mg/dl (0.60-1.40); GLUCOSE 74 mg/dl (70-99); LIPASE 183 U/L (73-393); POTASSIUM 3.6 mmol/L (3.5-5.1); SODIUM 139 mmol/L (136-145)
[2017-12-07 19:49] LABS: ALKALINE PHOSPHATASE 98 U/L (45-117)
--- NOTE | 2017-12-07 20:03 | DIAGNOSTIC IMAGING REPORT ---
HEAD WITHOUT CONTRAST (CT) CLINICAL HISTORY: 52 years-old Male with eval for bleed. Acute headache with concern for possible intracranial hemorrhage. TECHNIQUE: Multiple axial CT images of the head were obtained without contrast. A dose lowering technique was utilized adhering to the principles of ALARA. CT DOSE: 2460.63 mGy.cm COMPARISON: CT head 11/03/2017. FINDINGS: No acute intracranial hemorrhage, midline shift, intracranial mass, hydrocephalus, territorial ischemia or abnormal extra-axial collection. Senescent calcifications of the left lentiform nucleus redemonstrated. Ill-defined areas of low-attenuation within the subcortical and periventricular white matter of the cerebral hemispheres bilaterally suggest chronic microvascular ischemic changes. The calvarium is intact. Trace right mastoid effusion. The left mastoid air cells and imaged paranasal sinuses are generally clear. There is resolution of the small frontal scalp soft tissue hematoma. Orbits are symmetric and within normal limits. No opaque foreign body. IMPRESSION: No acute intracranial abnormality. The above report was generated using voice recognition software. It may contain grammatical, syntax or spelling errors. Electronically signed by: Cosme Norris M.D. 12/07/2017 8:02 PM Dictated Date/Time: 12/07/2017 7:58 PM
[2017-12-07 20:04] LABS: INFLUENZA B ANTIGEN Neg for Influ B (NEG)
--- NOTE | 2017-12-07 20:12 | DIAGNOSTIC IMAGING REPORT ---
ABD/PELVIS WITHOUT FOR STONE HISTORY: 52 years-old Male eval for stone acute epigastric abdominal pain. Initial exam. COMPARISON: CT abdomen and pelvis 09/15/2017 TECHNIQUE: Multiple axial CT images of the abdomen and pelvis were obtained without contrast. A dose lowering technique was used consistent with the principals of HILARIA. FINDINGS: Respiratory motion limits evaluation of the lung bases. There is mild subsegmental bibasilar atelectasis. No pneumatosis or pneumoperitoneum identified. Imaged inferior cardiac chambers are unremarkable. Heterogeneous cirrhotic morphology of the liver redemonstrated with marginal nodularity and fatty infiltration. Scattered prequel calcifications are again noted throughout the liver. There is no intrahepatic biliary ductal dilation. Prior cholecystectomy. The spleen, pancreas and adrenal glands are within normal limits. Kidneys, ureters and urinary bladder are within normal limits. Prostate is within normal limits. There multiple phleboliths of the pelvis. Mild calcification of the aorta without aneurysm. No bulky adenopathy identified. Mildly prominent nonspecific retroperitoneal lymph nodes are again seen which are unchanged. Upper abdominal portosystemic varices including periesophageal varices are noted compatible with stigmata of portal hypertension. There is no bowel obstruction or focal bowel wall thickening identified. Normal appendix. Soft tissues are unremarkable. Remote left-sided rib fractures. IMPRESSION: 1. No acute intra-abdominal or intrapelvic abnormality identified, specifically no renal calculi or obstructive uropathy. 2. No bowel obstruction or focal bowel wall thickening. 3. Cirrhotic liver disease with stigmata of portal venous hypertension. The above report was generated using voice recognition software. It may contain grammatical, syntax or spelling errors. Electronically signed by: Cosme Norris M.D. 12/07/2017 8:11 PM Dictated Date/Time: 12/07/2017 8:02 PM
--- NOTE | 2017-12-07 20:23 | DIAGNOSTIC IMAGING REPORT ---
CHEST 2 VIEWS ROUTINE HISTORY: 52 years-old Male eval for infiltrate acute atypical left-sided chest pain COMPARISON: Chest radiograph 11/18/2017, CTA chest 09/15/2017 TECHNIQUE: PA and lateral views of the chest FINDINGS: Cardiac silhouette is within normal limits. Mild dilation of the main pulmonary arteries is again noted which may reflect pulmonary arterial hypertension. Emphysema without pneumothorax, pleural effusion, focal airspace consolidation or overt pulmonary edema. Bones of the chest appear grossly intact. Cholecystectomy clips noted. IMPRESSION: Emphysema without acute process. The above report was generated using voice recognition software. It may contain grammatical, syntax or spelling errors. Electronically signed by: Cosme Norris M.D. 12/07/2017 8:22 PM Dictated Date/Time: 12/07/2017 8:20 PM
[2017-12-07] MEDS ORDERED: TRAZ1TAB52 PO (20:24)
[2017-12-07 21:43] VITALS: BP 99/64; PULSE 93; O2SAT 95
--- NOTE | 2017-12-07 23:55 | EMERGENCY ROOM VISIT NOTE ---
History Report prepared by López: Nishant Powers Under the Supervision of: Dr. Ned Butterfield M.D. First contact with patient: 18:53 Chief Complaint: ABDOMINAL PAIN Stated Complaint: UPPER GASTRIC PAIN Nursing Triage Summary: Patient presents with c/o epigastric pain He is an alcoholic and began drinking this morning He has chronic abdominal pain due to alcoholism He states he has drank approximately six 22oz beers He states he has vomited three times, denies blood in emesis History of Present Illness The patient is a 52 year old male who presents to the Emergency Room with complaints of abdominal pain. He also states that he had a coughing fit and he thinks he may have passed out while sitting down. He denies any head injuries. He has a history of cirrhosis due to alcohol abuse. He notes that he has been passing blood in his urine for two weeks. He notes there is blood in his stools for two weeks as well. He notes abdominal pain and right flank pain. He notes he had a fever of 100.5 Fahrenheit two days ago. He notes a chronic cough. He notes his legs become numb and he falls down sometimes. He notes drinking three 32 ounce beers today. HPI is limited secondary to alcohol intoxication. Source of History: patient Onset: earlier today Position: abdomen Symptom Intensity: moderate Timing: constant Associated Symptoms: + LOC (Possible), + fevers, + urinary symptoms (blood in urine), No headache, No chest pain, No SOB Note: He notes right flank pain and blood in his stools. He denies any head injuries. Review of Systems ROS is limited secondary to alcohol intoxication. Past Medical & Surgical Medical Problems: (1) Alcohol dependence (2) Alcoholic cirrhosis of liver without ascites (3) Asthma, mild persistent (4) Chronic anxiety (5) Chronic pancreatitis (6) COPD, mild (7) Esophageal varices (8) Hypothyroidism (9) Paroxysmal atrial fibrillation (10) Portal vein thrombosis (11) Pulmonary HTN (12) Thrombocytopenia (13) Tobacco abuse Surgical Problems: (1) H/O colonoscopy (2) History of cholecystectomy (3) History of esophagogastroduodenoscopy (EGD) Family History Blood clots Diabetes mellitus MOTHER FH: CAD (coronary artery disease) FATHER BROTHER FH: leukemia AUNT Hypertension Social History Smoking Status: Current Every Day Smoker Alcohol Use: heavy Drug Use: none Marital Status: Housing Status: lives with family Occupation Status: unemployed Current/Historical Medications Scheduled Trazodone Hcl (Desyrel), 150 MG PO HS Allergies Coded Allergies: Fentanyl (Verified Allergy, Intermediate, RASH ALL OVER BODY, 11/03/17) ALL OVER BODY Physical Exam Vital Signs Date Time Temp Pulse Resp B/P (MAP) Pulse Ox O2 Delivery O2 Flow Rate FiO2 12/07/17 21:43 93 23 99/64 95 12/07/17 20:20 87 16 107/58 92 Room Air 12/07/17 19:27 86 18 112/76 95 Room Air 89 110/78 92 122/89 12/07/17 19:00 78 12/07/17 18:49 37.2 87 24 111/80 98 Room Air 12/07/17 18:49 98 Room Air Physical Exam Constitutional: Vital signs reviewed. Eyes: Pupils are equal round reactive to light. Conjunctiva are noninjected. ENT: Pharynx is clear without erythema or exudate. Mucous membranes are moist. Neck supple without meningeal signs. No midline tenderness to cervical spine. Respiratory: Clear to auscultation bilaterally. Breath sounds are equal bilaterally. Cardiovascular: Regular rate and rhythm. No rubs or gallops. GI: Soft, nondistended and nontender. Bowel sounds are present. RECTAL: Guaiac negative, light brown stool. Skin tag at 9'oclock position, non- tender. Musculoskeletal: No peripheral edema. No lower extremity tenderness. Integumentary: No cyanosis. Neurological: The patient is awake and alert. No focal deficits. Psychiatric: Unable to assess. Appears intoxicated. Medical Decision & Procedures ER Provider Diagnostic Interpretation: Radiology results as stated below per my review and the radiologist's interpretation: HEAD WITHOUT CONTRAST (CT) CLINICAL HISTORY: 52 years-old Male with eval for bleed. Acute headache with concern for possible intracranial hemorrhage. TECHNIQUE: Multiple axial CT images of the head were obtained without contrast. A dose lowering technique was utilized adhering to the principles of ALARA. CT DOSE: 2460.63 mGy.cm COMPARISON: CT head 11/03/2017. FINDINGS: No acute intracranial hemorrhage, midline shift, intracranial mass, hydrocephalus, territorial ischemia or abnormal extra-axial collection. Senescent calcifications of the left lentiform nucleus redemonstrated. Ill-defined areas of low-attenuation within the subcortical and periventricular white matter of the cerebral hemispheres bilaterally suggest chronic microvascular ischemic changes. The calvarium is intact. Trace right mastoid effusion. The left mastoid air cells and imaged paranasal sinuses are generally clear. There is resolution of the small frontal scalp soft tissue hematoma. Orbits are symmetric and within normal limits. No opaque foreign body. IMPRESSION: No acute intracranial abnormality. The above report was generated using voice recognition software. It may contain grammatical, syntax or spelling errors. Electronically signed by: Cosme Norris M.D. 12/07/2017 8:02 PM Dictated Date/Time: 12/07/2017 7:58 PM ABD/PELVIS WITHOUT FOR STONE HISTORY: 52 years-old Male eval for stone acute epigastric abdominal pain. Initial exam. COMPARISON: CT abdomen and pelvis 09/15/2017 TECHNIQUE: Multiple axial CT images of the abdomen and pelvis were obtained without contrast. A dose lowering technique was used consistent with the principals of HILARIA. FINDINGS: Respiratory motion limits evaluation of the lung bases. There is mild subsegmental bibasilar atelectasis. No pneumatosis or pneumoperitoneum identified. Imaged inferior cardiac chambers are unremarkable. Heterogeneous cirrhotic morphology of the liver redemonstrated with marginal nodularity and fatty infiltration. Scattered prequel calcifications are again noted throughout the liver. There is no intrahepatic biliary ductal dilation. Prior cholecystectomy. The spleen, pancreas and adrenal glands are within normal limits. Kidneys, ureters and urinary bladder are within normal limits. Prostate is within normal limits. There multiple phleboliths of the pelvis. Mild calcification of the aorta without aneurysm. No bulky adenopathy identified. Mildly prominent nonspecific retroperitoneal lymph nodes are again seen which are unchanged. Upper abdominal portosystemic varices including periesophageal varices are noted compatible with stigmata of portal hypertension. There is no bowel obstruction or focal bowel wall thickening identified. Normal appendix. Soft tissues are unremarkable. Remote left-sided rib fractures. IMPRESSION: 1. No acute intra-abdominal or intrapelvic abnormality identified, specifically no renal calculi or obstructive uropathy. 2. No bowel obstruction or focal bowel wall thickening. 3. Cirrhotic liver disease with stigmata of portal venous hypertension. The above report was generated using voice recognition software. It may contain grammatical, syntax or spelling errors. Electronically signed by: Cosme Norris M.D. 12/07/2017 8:11 PM Dictated Date/Time: 12/07/2017 8:02 PM CHEST 2 VIEWS ROUTINE HISTORY: 52 years-old Male eval for infiltrate acute atypical left-sided chest pain COMPARISON: Chest radiograph 11/18/2017, CTA chest 09/15/2017 TECHNIQUE: PA and lateral views of the chest FINDINGS: Cardiac silhouette is within normal limits. Mild dilation of the main pulmonary arteries is again noted which may reflect pulmonary arterial hypertension. Emphysema without pneumothorax, pleural effusion, focal airspace consolidation or overt pulmonary edema. Bones of the chest appear grossly intact. Cholecystectomy clips noted. IMPRESSION: Emphysema without acute process. The above report was generated using voice recognition software. It may contain grammatical, syntax or spelling errors. Electronically signed by: Cosme Norris M.D. 12/07/2017 8:22 PM Dictated Date/Time: 12/07/2017 8:20 PM Laboratory Results 12/07/17 19:15 Red Blood Count 4.56, Mean Corpuscular Volume 99.1, Mean Corpuscular Hemoglobin 35.7, Mean Corpuscular Hemoglobin Concent 36.1, Mean Platelet Volume 10.9, Neutrophils (%) (Auto) 49.3, Lymphocytes (%) (Auto) 35.3, Monocytes (%) (Auto) 9.8, Eosinophils (%) (Auto) 4.8, Basophils (%) (Auto) 0.6, Neutrophils # (Auto) 4.18, Lymphocytes # (Auto) 2.99, Monocytes # (Auto) 0.83, Eosinophils # (Auto) 0.41, Basophils # (Auto) 0.05 12/07/17 19:15 Test 12/07/17 18:50 12/07/17 19:15 12/07/17 19:20 Urine Color YELLOW Urine Appearance CLEAR (CLEAR) Urine pH 6.5 (4.5-7.5) Urine Specific [place] 1.003 (1.000-1.030) Urine Protein NEG (NEG) Urine Glucose (UA) NEG (NEG) Urine Ketones NEG (NEG) Urine Occult Blood NEG (NEG) Urine Nitrite NEG (NEG) Urine Bilirubin NEG (NEG) Urine Urobilinogen NEG (NEG) Urine Leukocyte Esterase NEG (NEG) White Blood Count 8.48 K/uL (4.8-10.8) Red Blood Count 4.56 M/uL (4.7-6.1) Hemoglobin 16.3 g/dL (14.0-18.0) Hematocrit 45.2 % (42-52) Mean Corpuscular Volume 99.1 fL (80-100) Mean Corpuscular Hemoglobin 35.7 pg (25-34) Mean Corpuscular Hemoglobin Concent 36.1 g/dl (32-36) Platelet Count 126 K/uL (130-400) Mean Platelet Volume 10.9 fL (7.4-10.4) Neutrophils (%) (Auto) 49.3 % Lymphocytes (%) (Auto) 35.3 % Monocytes (%) (Auto) 9.8 % Eosinophils (%) (Auto) 4.8 % Basophils (%) (Auto) 0.6 % Neutrophils # (Auto) 4.18 K/uL (1.4-6.5) Lymphocytes # (Auto) 2.99 K/uL (1.2-3.4) Monocytes # (Auto) 0.83 K/uL (0.11-0.59) Eosinophils # (Auto) 0.41 K/uL (0-0.5) Basophils # (Auto) 0.05 K/uL (0-0.2) RDW Standard Deviation 45.4 fL (36.4-46.3) RDW Coefficient of Variation 12.5 % (11.5-14.5) Immature Granulocyte % (Auto) 0.2 % Immature Granulocyte # (Auto) 0.02 K/uL (0.00-0.02) Prothrombin Time 11.8 SECONDS (9.0-12.0) Prothromb Time International Ratio 1.1 (0.9-1.1) Activated Partial Thromboplast Time 27.8 SECONDS (21.0-31.0) Partial Thromboplastin Ratio 1.1 Anion Gap 6.0 mmol/L (3-11) Est Creatinine Clear Calc Drug Dose 107.7 ml/min Estimated GFR () 125.6 Estimated GFR (Non- 108.4 BUN/Creatinine Ratio 6.0 (10-20) Calcium Level 8.2 mg/dl (8.5-10.1) Total Bilirubin 1.1 mg/dl (0.2-1) Direct Bilirubin 0.3 mg/dl (0-0.2) Aspartate Amino Transf (AST/SGOT) 38 U/L (15-37) Alanine Aminotransferase (ALT/SGPT) 24 U/L (12-78) Alkaline Phosphatase 98 U/L (45-117) Troponin I < 0.015 ng/ml (0-0.045) Total Protein 7.0 gm/dl (6.4-8.2) Albumin 2.4 gm/dl (3.4-5.0) Lipase 183 U/L (73-393) Ethyl Alcohol mg/dL 288.5 mg/dl (0-3) Influenza Type A Antigen Neg for Influ A (NEG) Influenza Type B Antigen Neg for Influ B (NEG) Laboratory results as reviewed by me. Medications Administered Medications (Trade) Dose Ordered Sig/Justin Route Start Time Stop Time Status Last Admin Dose Admin Multivitamins 10 ml/Thiamine HCl 100 mg/Folic Acid 1 mg/Sodium Chloride 1,011.2 ml @ 500 mls/ hr Q2H2M ONCE IV 12/07/17 19:15 12/07/17 21:16 DC 12/07/17 19:26 500 MLS/HR ECG Per My Interpretation Indication: toxicologic Rate (beats per minute): 76 Rhythm: normal sinus Findings: T-wave inversion (Septal), no ectopy Change: Patient's electrocardiogram per my interpretation. ED Course 1855: The patient was evaluated in room C1B. A complete history and physical exam was performed. 1914: Ordered Multivitamins 10 ml/Thiamine HCl 100 mg/Folic Acid 1 mg/Sodium Chloride 1,011.2 ml @ 500 mls/hr IV 2010: I reassessed the patient at this time. The patient was sleeping comfortably. I discussed the results and treatment plan with the patient. I performed a rectal exam. Please see exam note. 2110: I reassessed the patient at this time. He is demanding to be discharged to go home. He called his family to pick him up. I answered all pertaining questions that he had. He expressed understanding and verbalized agreement. The patient will be discharged home. Medical Decision This is a 52-year-old male who presents with abdominal pain, rectal bleeding and hematuria. Differential diagnosis includes GI bleed, coagulopathy, liver failure, cirrhosis, anemia. I did perform a limited focused review of portions of the patient's old chart on the electronic medical record. The patient was seen November 18, 2017 due to alcohol intoxication. He was seen in October 2017 for alcohol intoxication. He had a CT A/P in September 2017, which showed cirrhosis. I did evaluate the patient as noted above. The patient appears intoxicated. He does have a history of alcohol dependence. He is complaining of diffuse abdominal pain greater on the right side. He also states that he has had rectal bleeding for 2 weeks as well as hematuria for 2 weeks. I did perform a rectal examination which showed no evidence of blood in his stool is light brown and guaiac negative. On examination of his abdomen he does not have focal tenderness or any real significant tenderness on palpation. He did state that he has had a fever and has been coughing. He had a bad coughing fit and thinks he may have passed out as well. He denies head injury. IV access was established. I did treat the patient with a banana bag IV. The patient was placed on a continuous surveillance system monitor. I did order and personally review the patient's 12-lead EKG and chest x-ray as described above. I did order and review the patient's blood work as noted in the electronic medical record. Serum alcohol is 288. He is not anemic. His white blood cell count is not elevated. LFTs are not significantly deranged. Urinalysis does not show any signs of infection or blood. I did order a CT of the head, abdomen and pelvis. I did review the images myself as well as the radiology report as described above. There is no evidence of acute abnormality. I did reassess the patient. He is sleeping comfortably but when I woke him up he stated his abdomen hurt him. He has no tenderness on exam as noted above. I did discuss his test results with him. I did order a chest x-ray because of his reported fever. This did not show any signs of pneumonia. Flu testing is negative. The nurse reported that the patient became disruptive. He tried getting out of bed and pulling out his IV. He stated he wanted to be discharged immediately. He did state that he would call his son to come pick him up. The patient was therefore discharged and advised follow-up closely with his doctor. Head Trauma GCS Score: 15 Medication Reconcilliation Current Medication List: was personally reviewed by me Blood Pressure Screening Patient's blood pressure: Normal blood pressure Impression Primary Impression: Alcohol intoxication Additional Impressions: Generalized abdominal pain Cirrhosis Scribe Attestation The scribe's documentation has been prepared under my direct and personally reviewed by me in its entirety. I confirm that the note above accurately reflects all work, treatment, procedures, and medical decision making performed by me. Departure Information Dispostion Home / Self-Care Referrals No Doctor, Assigned (PCP) Forms Call Back Authorization, HOME CARE DOCUMENTATION FORM, IMPORTANT VISIT INFORMATION Patient Instructions ED Abdominal Pain Unkn Cause, ED Alcohol Intoxication, My [facility] Additional Instructions You have been examined and treated today on an emergency basis only. This is not a substitute for, or an effort to provide, complete comprehensive medical care. It is impossible to recognize and treat all injuries or illnesses in a single emergency department visit. It is therefore important that you follow up closely with your physician. Call as soon as possible for an appointment. Return for worsening symptoms or if you develop any other concerning symptoms. Problem Qualifiers Primary Impression: Alcohol intoxication Complication of substance-induced condition: uncomplicated Qualified Codes: F10.920 - Alcohol use, unspecified with intoxication, uncomplicated Additional Impressions: Cirrhosis Hepatic cirrhosis type: alcoholic cirrhosis Ascites presence: without ascites Qualified Codes: K70.30 - Alcoholic cirrhosis of liver without ascites
== END 2017-12-07 21:44 | disposition home or self-care (01) ==
LOC: C.EDC 18:46
DX: F10.229 Alcohol dependence with intoxication, unspecified (principal); R10.84 Generalized abdominal pain; K70.30 Alcoholic cirrhosis of liver without ascites; J45.30 Mild persistent asthma, uncomplicated; F41.9 Anxiety disorder, unspecified; K86.1 Other chronic pancreatitis; J44.9 Chronic obstructive pulmonary disease, unspecified; E03.9 Hypothyroidism, unspecified; I48.0 Paroxysmal atrial fibrillation; Z86.718 Personal history of other venous thrombosis and embolism; I27.20 Pulmonary hypertension, unspecified; F17.210 Nicotine dependence, cigarettes, uncomplicated; Z90.49 Acquired absence of other specified parts of digestive tract; Z83.3 Family history of diabetes mellitus; Z82.49 Family history of ischemic heart disease and other diseases of the circulatory system; Z80.6 Family history of leukemia; Z79.899 Other long term (current) drug therapy; Z88.4 Allergy status to anesthetic agent; Y90.8 Blood alcohol level of 240 mg/100 ml or more

== ENCOUNTER 2017-12-18 20:51 | Emergency (ER) | payer OTHER ==
[~2017-12-18] VITALS: Ht 165.1 cm; Wt 78.0 kg
[~2017-12-18 20:51] MED LIST changes: -FOLI1TAB8 PO; -MAGN400T5 PO; -MULT-411 PO; -THIA100T11 PO
[2017-12-18 20:57] VITALS: TEMP 36.7; Ht 165.1 cm; Wt 78.0 kg
[2017-12-18] MEDS ORDERED: SODIUM CHLORIDE 0.9% 250ML 250 ML IV STA (21:20)
[2017-12-18 21:26] VITALS: O2SAT 96
[2017-12-18 21:55] LABS: BASO % 0.8 %; BASO ABS # 0.06 K/uL (0-0.2); HEMATOCRIT 43.9 % (42-52); HEMOGLOBIN 16.2 g/dL (14.0-18.0); IG# 0.02 K/uL (0.00-0.02); LYMPH % 34.4 %; LYMPH ABS # 2.75 K/uL (1.2-3.4); MEAN CELL VOLUME 97.3 fL (80-100); MEAN CORPUSCULAR HEMOGLOBIN 35.9 pg (25-34); MEAN CORPUSCULAR HGB CONC 36.9 g/dl (32-36); MEAN PLATELET VOLUME 11.3 fL (7.4-10.4); MONO ABS # 0.96 K/uL (0.11-0.59); NEUT % 47.5 %; PLATELET COUNT 122 K/uL (130-400); RED CELL DISTRIBUTION WIDTH CV 12.6 % (11.5-14.5); RED CELL DISTRIBUTION WIDTH SD 44.9 fL (36.4-46.3); WHITE BLOOD COUNT 7.99 K/uL (4.8-10.8)
--- NOTE | 2017-12-18 21:57 | DIAGNOSTIC IMAGING REPORT ---
CHEST ONE VIEW PORTABLE CLINICAL HISTORY: Chest pain. Allergic reaction. COMPARISON STUDY: Chest radiograph December 07, 2017. FINDINGS: Lung volumes are normal. There is no pneumothorax or pleural effusion. There is no evidence for pulmonary edema. No consolidation is identified. Cardiomediastinal silhouette is normal. Appearance of the chest is unchanged. IMPRESSION: No acute cardiopulmonary findings. Electronically signed by: Chuy Rodríguez M.D. 12/18/2017 9:55 PM Dictated Date/Time: 12/18/2017 9:54 PM
[2017-12-18] MEDS ORDERED: DiphenhydrAMINE HCL 50 MG/ML VIAL IV STA (22:01)
[2017-12-18 22:04] LABS: INR 1.2 (0.9-1.1)
[2017-12-18 22:15] LABS: ALBUMIN 2.5 gm/dl (3.4-5.0); ALT/SGPT 29 U/L (12-78); BLOOD UREA NITROGEN 4 mg/dl (7-18); CALCIUM 8.2 mg/dl (8.5-10.1); CARBON DIOXIDE 21 mmol/L (21-32); CREATININE 0.68 mg/dl (0.60-1.40); GLUCOSE 79 mg/dl (70-99); LIPASE 189 U/L (73-393); POTASSIUM 3.1 mmol/L (3.5-5.1); SODIUM 143 mmol/L (136-145)
[2017-12-18 22:20] LABS: ALKALINE PHOSPHATASE 99 U/L (45-117); AST/SGOT 57 U/L (15-37); TOTAL PROTEIN 6.9 gm/dl (6.4-8.2)
[2017-12-18 22:36] LABS: INFLUENZA B ANTIGEN Neg for Influ B (NEG)
[2017-12-18] MEDS ORDERED: SODIUM CHLORIDE 0.9% 1000ML 1,000 ML IV STA (22:51)
[2017-12-18] MEDS ORDERED: LACTATED RINGER'S 1000ML 1,000 ML IV STA (22:54)
[2017-12-18] MEDS ORDERED: LORATADINE 10 MG TAB PO ONE (23:00)
[2017-12-18] MEDS ORDERED: DEXAMETHASONE **PF** INJ 10 MG/ML VIAL IV ONE (23:00)
[2017-12-18 23:45] VITALS: BP 138/63; PULSE 78; O2SAT 97
--- NOTE | 2017-12-19 00:12 | EMERGENCY ROOM VISIT NOTE ---
History Report prepared by López: Fatmata Power Under the Supervision of: Dr. Hussain Lee M.D. First contact with patient: 20:59 Chief Complaint: ALLERGIC REACTION Stated Complaint: ALLERGIC REACTION Nursing Triage Summary: Patient arrived via EMS. PAtient states he was outside today at a friends house and developed a red rash to bilateral arms. Patient reports he itches all over. Patient reports no sob or cp. History of Present Illness The patient is a 52 year old male who presents to the Emergency Room with complaints of persistent rash starting around 1500 today. The rash is painful and somewhat itchy. He states that the rash is all over. He has never had this rash before. He denies any new medications or detergents. He denies having any cuellar. He has had some chills and diarrhea today. He has had burning with urination for a couple days. He has been coughing up yellow sputum for a week. He denies any fever, congestion, nausea, vomiting, or abdominal pain. He has a history of liver problems, COPD, and CHF. He refuses to take any medications prescribed by his PCP. He does smoke. Source of History: patient Onset: 1500 today Position: other (skin) Quality: other (rash) Timing: other (persistent) Associated Symptoms: + chills, + cough, + diarrhea, + urinary symptoms, No fevers, No nausea, No vomiting, No abdominal pain Review of Systems See HPI for pertinent positives and negatives. A total of ten systems were reviewed and were otherwise negative. Past Medical & Surgical Medical Problems: (1) Alcohol dependence (2) Alcoholic cirrhosis of liver without ascites (3) Asthma, mild persistent (4) Chronic anxiety (5) Chronic pancreatitis (6) COPD, mild (7) Esophageal varices (8) Hypothyroidism (9) Paroxysmal atrial fibrillation (10) Portal vein thrombosis (11) Pulmonary HTN (12) Thrombocytopenia (13) Tobacco abuse Surgical Problems: (1) H/O colonoscopy (2) History of cholecystectomy (3) History of esophagogastroduodenoscopy (EGD) Family History Blood clots Diabetes mellitus MOTHER FH: CAD (coronary artery disease) FATHER BROTHER FH: leukemia AUNT Hypertension Social History Smoking Status: Never Smoker Alcohol Use: heavy Drug Use: none Marital Status: Housing Status: lives with family Occupation Status: unemployed Current/Historical Medications Scheduled Trazodone Hcl (Desyrel), 150 MG PO HS Allergies Coded Allergies: Fentanyl (Verified Allergy, Intermediate, RASH ALL OVER BODY, 11/03/17) ALL OVER BODY Physical Exam Vital Signs Date Time Temp Pulse Resp B/P (MAP) Pulse Ox O2 Delivery O2 Flow Rate FiO2 12/18/17 23:45 78 16 138/63 97 Room Air 12/18/17 22:51 86 14 107/67 92 12/18/17 22:21 82 10 93 12/18/17 22:00 93/59 12/18/17 21:51 88 14 94 12/18/17 21:26 96 Room Air 12/18/17 21:21 73 27 92 12/18/17 21:01 95/59 12/18/17 20:59 91 12/18/17 20:57 36.7 87 16 107/65 97 Room Air 12/18/17 20:57 96 Room Air 12/18/17 20:55 107/65 Physical Exam GENERAL: Awake, fatigued-appearing, in no distress HENT: Normocephalic, atraumatic. Dry mucous membranes. EYES: Normal conjunctiva. Sclera non-icteric. NECK: Supple. No nuchal rigidity. FROM. No JVD. RESPIRATORY: Clear to auscultation. CARDIAC: Regular rate, normal rhythm. Extremities warm and well perfused. Pulses equal. ABDOMEN: Soft, non-distended. No tenderness to palpation. No rebound or guarding. No masses. RECTAL: Deferred. MUSCULOSKELETAL: Chest examination reveals no tenderness. The back is symmetrical on inspection without obvious abnormality. There is no CVA tenderness to palpation. No joint edema. LOWER EXTREMITIES: Calves are equal size bilaterally and non-tender. No edema. No discoloration. NEURO: Normal sensorium. No sensory or motor deficits noted. SKIN: No jaundice noted. 5 cm patch of erythema on the dorsal aspect of the right forearm and more diffuse patch that are nonblanchable. No warmth or crepitus. Medical Decision & Procedures ER Provider Diagnostic Interpretation: Xray results as stated below per my and radiologist interpretation: CHEST ONE VIEW PORTABLE CLINICAL HISTORY: Chest pain. Allergic reaction. COMPARISON STUDY: Chest radiograph December 07, 2017. FINDINGS: Lung volumes are normal. There is no pneumothorax or pleural effusion. There is no evidence for pulmonary edema. No consolidation is identified. Cardiomediastinal silhouette is normal. Appearance of the chest is unchanged. IMPRESSION: No acute cardiopulmonary findings. Electronically signed by: Chuy Rodríguez M.D. 12/18/2017 9:55 PM Dictated Date/Time: 12/18/2017 9:54 PM Laboratory Results 12/18/17 21:40 Red Blood Count 4.51, Mean Corpuscular Volume 97.3, Mean Corpuscular Hemoglobin 35.9, Mean Corpuscular Hemoglobin Concent 36.9, Mean Platelet Volume 11.3, Neutrophils (%) (Auto) 47.5, Lymphocytes (%) (Auto) 34.4, Monocytes (%) (Auto) 12.0, Eosinophils (%) (Auto) 5.0, Basophils (%) (Auto) 0.8, Neutrophils # (Auto ) 3.80, Lymphocytes # (Auto) 2.75, Monocytes # (Auto) 0.96, Eosinophils # (Auto ) 0.40, Basophils # (Auto) 0.06 12/18/17 21:40 Test 12/18/17 21:40 12/18/17 21:55 White Blood Count 7.99 K/uL (4.8-10.8) Red Blood Count 4.51 M/uL (4.7-6.1) Hemoglobin 16.2 g/dL (14.0-18.0) Hematocrit 43.9 % (42-52) Mean Corpuscular Volume 97.3 fL (80-100) Mean Corpuscular Hemoglobin 35.9 pg (25-34) Mean Corpuscular Hemoglobin Concent 36.9 g/dl (32-36) Platelet Count 122 K/uL (130-400) Mean Platelet Volume 11.3 fL (7.4-10.4) Neutrophils (%) (Auto) 47.5 % Lymphocytes (%) (Auto) 34.4 % Monocytes (%) (Auto) 12.0 % Eosinophils (%) (Auto) 5.0 % Basophils (%) (Auto) 0.8 % Neutrophils # (Auto) 3.80 K/uL (1.4-6.5) Lymphocytes # (Auto) 2.75 K/uL (1.2-3.4) Monocytes # (Auto) 0.96 K/uL (0.11-0.59) Eosinophils # (Auto) 0.40 K/uL (0-0.5) Basophils # (Auto) 0.06 K/uL (0-0.2) RDW Standard Deviation 44.9 fL (36.4-46.3) RDW Coefficient of Variation 12.6 % (11.5-14.5) Immature Granulocyte % (Auto) 0.3 % Immature Granulocyte # (Auto) 0.02 K/uL (0.00-0.02) Prothrombin Time 12.5 SECONDS (9.0-12.0) Prothromb Time International Ratio 1.2 (0.9-1.1) Anion Gap 12.0 mmol/L (3-11) Est Creatinine Clear Calc Drug Dose 121.0 ml/min Estimated GFR () 126.4 Estimated GFR (Non- 109.0 BUN/Creatinine Ratio 5.5 (10-20) Calcium Level 8.2 mg/dl (8.5-10.1) Total Bilirubin 1.9 mg/dl (0.2-1) Direct Bilirubin 0.5 mg/dl (0-0.2) Aspartate Amino Transf (AST/SGOT) 57 U/L (15-37) Alanine Aminotransferase (ALT/SGPT) 29 U/L (12-78) Alkaline Phosphatase 99 U/L (45-117) Troponin I < 0.015 ng/ml (0-0.045) Pro-B-Type Natriuretic Peptide 34 pg/ml (0-900) Total Protein 6.9 gm/dl (6.4-8.2) Albumin 2.5 gm/dl (3.4-5.0) Lipase 189 U/L (73-393) Ethyl Alcohol mg/dL 224.2 mg/dl (0-3) Influenza Type A Antigen Neg for Influ A (NEG) Influenza Type B Antigen Neg for Influ B (NEG) Laboratory results reviewed by me Medications Administered Medications (Trade) Dose Ordered Sig/Justin Route Start Time Stop Time Status Last Admin Dose Admin Sodium Chloride 250 ml @ 999 mls/hr Q16M STAT IV 12/18/17 21:20 12/18/17 21:35 DC 12/18/17 21:38 999 MLS/HR Diphenhydramine HCl (Benadryl Inj) 25 mg NOW STAT IV 12/18/17 22:01 12/18/17 22:02 DC 12/18/17 22:08 25 MG Lactated Ringer's 1,000 ml @ 999 mls/hr Q1H1M STAT IV 12/18/17 22:54 12/18/17 23:54 DC 12/18/17 22:54 999 MLS/HR Loratadine (Claritin Tab) 10 mg NOW ONCE PO 12/18/17 23:00 12/18/17 23:01 DC 12/18/17 23:08 10 MG Dexamethasone Sodium Phosphate (Dexamethasone Inj Pf) 10 mg NOW ONCE IV 12/18/17 23:00 12/18/17 23:01 DC 12/18/17 23:07 10 MG ECG Per My Interpretation Indication: other Rate (beats per minute): 78 Rhythm: sinus with SA Findings: no acute ischemic change, other (normal axis) ED Course 2103: The patient was evaluated in room B2. A complete history and physical exam was performed. 0: NSS 250 ml @ 999 mls/hr IV. 2200: Benadryl Inj 25 mg IV. 2250: NSS 1000 ml @ 999 mls/hr IV. 2253: Lactated Ringer's 1000 ml @ 999 mls/hr IV. 2300: Dexamethasone Sodium Phosphate 10 mg IV, Claritin Tab 10 mg PO. 0000: I reevaluated the patient. Discussed results and discharge instructions: He verbalized understanding and agreement. The patient is ready for discharge. Medical Decision I reviewed the patient's past medical history, medications, and the nursing notes as described above. Differential diagnosis: cirrhosis, drug reaction, viral syndrome, coagulopathy, dehydration, electrolyte abnormality. The patient is a 52 y/o gentleman with a pmhx of cirrhosis and alcohol abuse presents to the emergency department with c/o of new onset rash on his right arm and chest with itching per HPI. On arrival the patient is in NAD, AFVSS. On exam the patient has a patch of erythema to the right forearm and upper chest that is not blanchable but without warmth. Labs c/w mild dehydration and within the patient's baseline in the setting of alcohol abuse and cirrhosis. Of note, patient's etoh level 200s, although patient is clinically sober. Patient with improvement in pruritis after IVF hydration, benadryl, loratidine, and dexamethasone. Patient requesting discharge. No evidence of emergent process at this time. Rash possible related to patient's cirrhosis. Patient instructed to f /u with his pcp. Findings and plan for follow-up reviewed with patient. Patient agreeable and d/c'd per discharge instructions. Of note, patient pulled out his own IV and left the department before written d/c instruction could be given. Medication Reconcilliation Current Medication List: was personally reviewed by me Blood Pressure Screening Patient's blood pressure: Normal blood pressure Blood pressure disposition: Did not require urgent referral Impression Primary Impression: Dehydration Additional Impressions: Rash Alcohol intoxication Scribe Attestation The scribe's documentation has been prepared under my direction and personally reviewed by me in its entirety. I confirm that the note above accurately reflects all work, treatment, procedures, and medical decision making performed by me. Departure Information Dispostion Home / Self-Care Referrals No Doctor, Assigned (PCP) Patient Instructions ED Alcohol Intoxication, ED Dehydration, [facility], [facility] Additional Instructions Please follow up with your primary care physician in the next 1-3 days for re- evaluation. Your symptoms are likely due to dehydration and your liver disease. Otherwise, your exam, chest xray, and lab results did not show signs of an emergent condition at this time. You should avoid alcohol abuse as this will worsening or liver disease. Seek help if needed. Drink plenty of fluids to ensure hydration. Return to the emergency department for worsening symptoms as described in the accompanying instructions. Problem Qualifiers
== END 2017-12-19 00:14 | disposition home or self-care (01) ==
LOC: EDBD 20:51 → C.EDB 20:52
DX: E86.0 Dehydration (principal); R21 Rash and other nonspecific skin eruption; F10.229 Alcohol dependence with intoxication, unspecified; J44.9 Chronic obstructive pulmonary disease, unspecified; I50.9 Heart failure, unspecified; F17.200 Nicotine dependence, unspecified, uncomplicated; K70.30 Alcoholic cirrhosis of liver without ascites; J45.909 Unspecified asthma, uncomplicated; F41.9 Anxiety disorder, unspecified; E03.9 Hypothyroidism, unspecified; I48.0 Paroxysmal atrial fibrillation; D69.6 Thrombocytopenia, unspecified; I27.20 Pulmonary hypertension, unspecified; Z86.718 Personal history of other venous thrombosis and embolism; Z90.49 Acquired absence of other specified parts of digestive tract; Z88.5 Allergy status to narcotic agent; Z83.3 Family history of diabetes mellitus; Z82.49 Family history of ischemic heart disease and other diseases of the circulatory system; Z83.2 Family history of diseases of the blood and blood-forming organs and certain disorders involving the immune mechanism; Z80.6 Family history of leukemia

== ENCOUNTER 2017-12-19 21:03 | Inpatient (IN) | payer OTHER ==
[~2017-12-19] VITALS: Ht 165.1 cm; Wt 65.5 kg
[2017-12-19] MEDS ORDERED: SODIUM CHLORIDE 0.9% 1000ML 1,000 ML IV STA ×2 (21:36→23:00)
--- NOTE | 2017-12-19 21:55 | DIAGNOSTIC IMAGING REPORT ---
SINGLE VIEW CHEST CLINICAL HISTORY: Atypical chest pain. FINDINGS: An AP, portable, upright chest radiograph is compared to study dated 12/18/2017. Correlation is made with chest CT dated 09/15/2017. The examination is degraded by portable technique and patient rotation. The heart is top normal for projection. The mediastinal contour is within normal limits. Mild emphysematous change and chronic interstitial thickening are similar to previous. No airspace consolidation or large pleural effusion is identified. No pneumothorax is seen. The bony thorax is grossly intact. There is mild thoracic scoliosis. IMPRESSION: No acute cardiopulmonary abnormality. Electronically signed by: Salazar Segura M.D. 12/19/2017 9:54 PM Dictated Date/Time: 12/19/2017 9:53 PM
[2017-12-19 22:10] LABS: BASO % 0.1 %; BASO ABS # 0.01 K/uL (0-0.2); HEMOGLOBIN 17.2 g/dL (14.0-18.0); IG# 0.04 K/uL (0.00-0.02); LYMPH % 14.6 %; LYMPH ABS # 1.96 K/uL (1.2-3.4); MEAN CELL VOLUME 96.1 fL (80-100); MEAN CORPUSCULAR HEMOGLOBIN 35.2 pg (25-34); MEAN CORPUSCULAR HGB CONC 36.6 g/dl (32-36); MEAN PLATELET VOLUME 11.5 fL (7.4-10.4); MONO % 7.9 %; MONO ABS # 1.06 K/uL (0.11-0.59); NEUT % 77.1 %; NEUT ABS # 10.37 K/uL (1.4-6.5); PLATELET COUNT 141 K/uL (130-400); RED CELL DISTRIBUTION WIDTH CV 12.3 % (11.5-14.5); RED CELL DISTRIBUTION WIDTH SD 43.1 fL (36.4-46.3); WHITE BLOOD COUNT 13.44 K/uL (4.8-10.8)
[2017-12-19 22:16] LABS: INR 1.2 (0.9-1.1); PTT PATIENT 25.9 SECONDS (21.0-31.0)
[2017-12-19 22:26] LABS: ALBUMIN 2.8 gm/dl (3.4-5.0); CALCIUM 8.6 mg/dl (8.5-10.1); CREATININE 0.75 mg/dl (0.60-1.40); POTASSIUM 3.3 mmol/L (3.5-5.1)
[2017-12-19 22:35] LABS: CKMB 2.7 ng/ml (0.5-3.6); TOTAL PROTEIN 7.4 gm/dl (6.4-8.2)
[2017-12-19] MEDS ORDERED: PIPERACILLIN/TAZOBACTAM 4.5 GM/100ML D5W IV STA (23:49)
[2017-12-20] VITALS (7 sets, daily range): BP systolic 88–122; BP diastolic 61–80; PULSE 77–109; TEMP 36.5–37.1; O2SAT 93–97; Ht 165.1 cm; Wt 65.5 kg
[2017-12-20] MEDS ORDERED: MULTI-VITAMIN INFUSION INJ 10 ML, THIAMINE HCL INJ 100 MG, FoLIC ACID INJ 1 MG in SODIU... IV ONE ×4
--- NOTE | 2017-12-20 00:05 | EMERGENCY ROOM VISIT NOTE ---
History Report prepared by López: Fatmata Power Under the Supervision of: Dr. Sundar Pace M.D. First contact with patient: 21:22 Chief Complaint: DETOX REQUEST Stated Complaint: DETOX REQUEST/ALCOHOL History of Present Illness The patient is a 52 year old male who presents to the Emergency Room with a detox request. The patient has a history of alcohol abuse. The patient has been drinking today. He reports that he had 3 beers. He fell last night injuring his tailbone. He feels like he cannot breathe. The patient was seen yesterday for a rash on his arm. He has vomited 1 time today. He is having chest pain and headache. He denies trying to hurt himself. He denies any diarrhea or abdominal pain. He is unsure if he has a fever. He is not on Coumadin. He notes a history of heart problems. Source of History: patient Onset: [employer] Position: other (constitutional) Quality: other (detox request) Timing: other Associated Symptoms: + headache, + chest pain, + SOB, + vomiting, No abdominal pain, No diarrhea Review of Systems See HPI for pertinent positives & negatives. A total of 10 systems reviewed and were otherwise negative. Past Medical & Surgical Medical Problems: (1) Alcohol dependence (2) Alcoholic cirrhosis of liver without ascites (3) Asthma, mild persistent (4) Chronic anxiety (5) Chronic pancreatitis (6) COPD, mild (7) Esophageal varices (8) Hypothyroidism (9) Paroxysmal atrial fibrillation (10) Portal vein thrombosis (11) Pulmonary HTN (12) Thrombocytopenia (13) Tobacco abuse Surgical Problems: (1) H/O colonoscopy (2) History of cholecystectomy (3) History of esophagogastroduodenoscopy (EGD) Old medical records were reviewed. Nurse's notes were reviewed and I agree with. Family History Blood clots Diabetes mellitus MOTHER FH: CAD (coronary artery disease) FATHER BROTHER FH: leukemia AUNT Hypertension Social History Smoking Status: Never Smoker Alcohol Use: heavy Drug Use: none Marital Status: Housing Status: lives with family Occupation Status: unemployed Current/Historical Medications Scheduled Trazodone Hcl (Desyrel), 150 MG PO HS Allergies Coded Allergies: Fentanyl (Verified Allergy, Intermediate, RASH ALL OVER BODY, 11/03/17) ALL OVER BODY Physical Exam Vital Signs Date Time Temp Pulse Resp B/P (MAP) Pulse Ox O2 Delivery O2 Flow Rate FiO2 12/19/17 22:05 140 20 114/85 95 Room Air 12/19/17 21:58 136 22 96/ 97 Room Air 12/19/17 21:27 95 Room Air 12/19/17 21:18 37.0 118 20 123/88 95 Room Air 12/19/17 21:15 143 Physical Exam General: Intoxicated middle age male, smells of alcohol, answers questions appropriately. HEENT: Normal cephalic atraumatic. Pupils are equal round and reactive to light. Extraocular movements are intact. Oropharynx is pink with moist mucous membranes. No swelling of the mouth lips or tongue. Neck: Supple with a midline trachea. No meningeal signs or stiffness, no JVD or bruits. No Stridor. Chest: Clear to auscultation bilaterally. No wheezes or rhonchi. No increased work of breathing. Heart: Tachycardic and somewhat irregular rate and rhythm. Abdomen: Soft nontender, nondistended without rebound guarding or rigidity. Extremities: No cyanosis clubbing or edema. No calf tenderness or assymetry Spine/Back. Tender along the tail bone without redness or swelling. No CVA tenderness. Skin: Good turgor without rashes. Some bruising on his right arm and left proximal arm. Neurologic exam: Cranial nerves two through 12 are intact. Motor and sensation are intact and symmetrical throughout. Medical Decision & Procedures ER Provider Diagnostic Interpretation: X-ray results as stated below per interpretation by me and the radiologist: SINGLE VIEW CHEST CLINICAL HISTORY: Atypical chest pain. FINDINGS: An AP, portable, upright chest radiograph is compared to study dated 12/18/2017. Correlation is made with chest CT dated 09/15/2017. The examination is degraded by portable technique and patient rotation. The heart is top normal for projection. The mediastinal contour is within normal limits. Mild emphysematous change and chronic interstitial thickening are similar to previous. No airspace consolidation or large pleural effusion is identified. No pneumothorax is seen. The bony thorax is grossly intact. There is mild thoracic scoliosis. IMPRESSION: No acute cardiopulmonary abnormality. Electronically signed by: Salazar Segura M.D. 12/19/2017 9:54 PM Dictated Date/Time: 12/19/2017 9:53 PM Laboratory Results 12/19/17 21:25 Red Blood Count 4.89, Mean Corpuscular Volume 96.1, Mean Corpuscular Hemoglobin 35.2, Mean Corpuscular Hemoglobin Concent 36.6, Mean Platelet Volume 11.5, Neutrophils (%) (Auto) 77.1, Lymphocytes (%) (Auto) 14.6, Monocytes (%) (Auto) 7.9, Eosinophils (%) (Auto) 0.0, Basophils (%) (Auto) 0.1, Neutrophils # (Auto) 10.37, Lymphocytes # (Auto) 1.96, Monocytes # (Auto) 1.06, Eosinophils # (Auto) 0.00, Basophils # (Auto) 0.01 12/19/17 21:25 Test 12/19/17 21:25 12/19/17 21:36 12/19/17 21:40 12/19/17 21:50 White Blood Count 13.44 K/uL (4.8-10.8) Red Blood Count 4.89 M/uL (4.7-6.1) Hemoglobin 17.2 g/dL (14.0-18.0) Hematocrit 47.0 % (42-52) Mean Corpuscular Volume 96.1 fL (80-100) Mean Corpuscular Hemoglobin 35.2 pg (25-34) Mean Corpuscular Hemoglobin Concent 36.6 g/dl (32-36) Platelet Count 141 K/uL (130-400) Mean Platelet Volume 11.5 fL (7.4-10.4) Neutrophils (%) (Auto) 77.1 % Lymphocytes (%) (Auto) 14.6 % Monocytes (%) (Auto) 7.9 % Eosinophils (%) (Auto) 0.0 % Basophils (%) (Auto) 0.1 % Neutrophils # (Auto) 10.37 K/uL (1.4-6.5) Lymphocytes # (Auto) 1.96 K/uL (1.2-3.4) Monocytes # (Auto) 1.06 K/uL (0.11-0.59) Eosinophils # (Auto) 0.00 K/uL (0-0.5) Basophils # (Auto) 0.01 K/uL (0-0.2) RDW Standard Deviation 43.1 fL (36.4-46.3) RDW Coefficient of Variation 12.3 % (11.5-14.5) Immature Granulocyte % (Auto) 0.3 % Immature Granulocyte # (Auto) 0.04 K/uL (0.00-0.02) Prothrombin Time 12.5 SECONDS (9.0-12.0) Prothromb Time International Ratio 1.2 (0.9-1.1) Activated Partial Thromboplast Time 25.9 SECONDS (21.0-31.0) Partial Thromboplastin Ratio 1.0 Anion Gap 13.0 mmol/L (3-11) Est Creatinine Clear Calc Drug Dose 99.1 ml/min Estimated GFR () 121.4 Estimated GFR (Non- 104.7 BUN/Creatinine Ratio 6.1 (10-20) Calcium Level 8.6 mg/dl (8.5-10.1) Magnesium Level 1.9 mg/dl (1.8-2.4) Total Bilirubin 1.6 mg/dl (0.2-1) Direct Bilirubin 0.3 mg/dl (0-0.2) Aspartate Amino Transf (AST/SGOT) 52 U/L (15-37) Alanine Aminotransferase (ALT/SGPT) 31 U/L (12-78) Alkaline Phosphatase 106 U/L (45-117) Total Creatine Kinase 228 U/L (39-308) Creatine Kinase MB 2.7 ng/ml (0.5-3.6) Total Protein 7.4 gm/dl (6.4-8.2) Albumin 2.8 gm/dl (3.4-5.0) Lipase 139 U/L (73-393) Thyroid Stimulating Hormone (TSH) 1.160 uIu/ml (0.300-4.500) Ethyl Alcohol mg/dL 325.5 mg/dl (0-3) Creatine Kinase MB Ratio (0-3.0) Urine Opiates Screen NEG (NEG) Urine Methadone, Qualitative NEG (NEG) Urine Barbiturates NEG (NEG) Urine Phencyclidine (PCP) Level NEG (NEG) Ur Amphetamine/Methamphetamine NEG (NEG) MDMA (Ecstasy) Screen NEG (NEG) Urine Benzodiazepines Screen NEG (NEG) Urine Cocaine Metabolite NEG (NEG) Urine Marijuana (THC) NEG (NEG) Bedside Troponin I < 0.030 ng/ml (0-0.045) Laboratory studies as stated above per my review. Medications Administered Medications (Trade) Dose Ordered Sig/Justin Route Start Time Stop Time Status Last Admin Dose Admin Sodium Chloride 1,000 ml @ 999 mls/hr Q1H1M STAT IV 12/19/17 21:36 12/19/17 22:36 DC 12/19/17 21:45 999 MLS/HR Sodium Chloride 1,000 ml @ 999 mls/hr Q1H1M STAT IV 12/19/17 23:00 12/20/17 00:00 DC 12/19/17 23:27 999 MLS/HR Piperacillin Sod/ Tazobactam Sod (Zosyn Iv) 4.5 gm NOW STAT IV 12/19/17 23:49 12/19/17 23:50 DC 12/19/17 23:58 4.5 GM ECG Per My Interpretation Indication: chest pain Rate (beats per minute): 137 Rhythm: atrial fibrillation Findings: no acute ischemic change, other (poor baseline) Comparison ECG Date: 18-Dec-2017 Change: Atrial fibrillation has replaced sinus. ED Course 2127: Past medical records reviewed. The patient was evaluated in room B9, and a complete history and physical examination were performed. 2136: Sodium Chloride 1000 ml @ 999 mls/hr IV. 2216: I reevaluated the patient. He is sleeping, still moderately tachycardic in the 130s. 2258: I reevaluated the patient. Heart rate is still in the 130s. 2300: Sodium Chloride 1000 ml @ 999 mls/hr IV. 2348: I reevaluated the patient. He is sleeping. His heart rate is trending downwards and is now averaging in the 100s and 110s. The patient will be evaluated for further management. 2349: Zosyn Iv 4.5 gm IV. 2353: I discussed the patient's case with Dr. Salazar, [facility] hospitalist. The patient will be evaluated for further management. 0000: Multivitamins 10 ml/Thiamine HCl 100 mg/Folic Acid 1 mg/Sodium Chloride 1011.2 ml @ 200 mls/hr IV. Medical Decision Differentials include, but are not limited to; arrhythmia, electrolyte or metabolic abnormality, dehydration, sepsis, toxicologic process. This patient comes in as described above. He has a history of alcohol abuse among other medical problems. He was brought in after being found intoxicated. He also initially complained of chest pain and he was noted to be in rapid A. fib. He denies that he has had any fevers. He denies abdominal pain or blood in his stool. He appears visibly intoxicated. He is initially normotensive. IV access established hydrated with 1 L normal saline bolus and did receive a second his heart rate is starting to come down with this in the 110s averaging. EKG shows what appears to be rapid A. fib. His hemoglobin is 17 and therefore not low and there is no evidence of far to suggest a GI bleed. white count is mildly elevated at 13 although he has no fever. It would be difficult to rule out an infection given his alcohol intoxication so I did culture him with blood cultures and give him a dose of IV Zosyn. This may all be alcohol related. I do not initially treat his rate with the beta-blockers because is concerned he could have other coingestions and was concerned that this is more of a compensatory mechanism rather than a primary issue though. he complained of chest pain at first although was sleeping most the time after that and appears in no distress. He is also given a banana bag IV. I have consulted Dr. Griffith to see him in the emergency emergency department for further treatment and evaluation and likely admission. Medication Reconcilliation Current Medication List: was personally reviewed by me Blood Pressure Screening Patient's blood pressure: Normal blood pressure Blood pressure disposition: Did not require urgent referral Consults Time Called: 2350 Consulting Physician: Dr. Salazar [facility] hospitalist Returned Call: [phone] Discussed the patient's case. The patient will be evaluated for further management. Impression Primary Impression: Alcohol intoxication Additional Impressions: Rapid atrial fibrillation Dehydration Critical Care I have personally spent greater than 30 minutes of critical care time in the direct management of this patient. This includes bedside care, interpretation of diagnostic studies, and testing, discussion with consultants, patient, and family members, and other required patient management activities. This 30 minutes is in excess of all separately billable procedures. Scribe Attestation The scribe's documentation has been prepared under my direction and personally reviewed by me in its entirety. I confirm that the note above accurately reflects all work, treatment, procedures, and medical decision making performed by me. Departure Information Dispostion Being Evaluated By Hospitalist Referrals Darrius Cr M.D. (MEDICAL) (PCP) Patient Instructions [facility] Problem Qualifiers
[2017-12-20] MEDS ORDERED: POTASSIUM CHLORIDE 10 MEQ TABCR PO STA ×2 (00:29→03:22)
[2017-12-20] MEDS ORDERED: DIGOXIN IV 250 MCG in SYRINGE 9 ML IV ONE ×2 (00:45→04:15)
[2017-12-20] MEDS ORDERED: GABAPENTIN 600 MG TAB PO SCH (01:15)
[2017-12-20] MEDS ORDERED: OPTIRAY 320 IV PRN (01:15)
[2017-12-20] MEDS ORDERED: ACETAMINOPHEN 325 MG TAB PO PRN (03:15)
[2017-12-20] MEDS ORDERED: NITROGLYCERIN 0.4 MG SL PER TAB CHARGE SL PRN (03:15)
[2017-12-20] MEDS ORDERED: PROCHLORPERAZINE INJ 5 MG in SYRINGE 4 ML IV PRN (03:15)
[2017-12-20] MEDS ORDERED: GABAPENTIN 600 MG TAB PO ONE (03:45)
[2017-12-20] MEDS ORDERED: MAGNESIUM SULFATE 1GM / D5W 1 GM in PREMIXED IN D5W 100 ML IV ONE (03:45)
[2017-12-20 06:28] LABS: BASO % 0.2 %; BASO ABS # 0.02 K/uL (0-0.2); EOS % 0.1 %; EOS ABS # 0.01 K/uL (0-0.5); HEMATOCRIT 42.8 % (42-52); HEMOGLOBIN 15.4 g/dL (14.0-18.0); IG# 0.03 K/uL (0.00-0.02); LYMPH % 23.8 %; LYMPH ABS # 2.19 K/uL (1.2-3.4); MEAN CELL VOLUME 98.4 fL (80-100); MEAN CORPUSCULAR HEMOGLOBIN 35.4 pg (25-34); MEAN PLATELET VOLUME 11.7 fL (7.4-10.4); MONO % 11.6 %; MONO ABS # 1.07 K/uL (0.11-0.59); NEUT ABS # 5.88 K/uL (1.4-6.5); PLATELET COUNT 110 K/uL (130-400); RED CELL DISTRIBUTION WIDTH CV 12.6 % (11.5-14.5); RED CELL DISTRIBUTION WIDTH SD 45.1 fL (36.4-46.3)
[2017-12-20 06:44] LABS: CALCIUM 7.1 mg/dl (8.5-10.1); CREATININE 0.66 mg/dl (0.60-1.40)
--- NOTE | 2017-12-20 06:57 | DIAGNOSTIC IMAGING REPORT ---
ABD/PELVIS IV CONTRAST ONLY CT DOSE: 291.50 mGy.cm HISTORY: Pain abd/back pain TECHNIQUE: Multiaxial CT images of the abdomen and pelvis were performed following the use of intravenous contrast. A dose lowering technique was utilized adhering to the principles of ALARA. COMPARISON STUDY: 12/07/2017 FINDINGS: Lung bases are clear. Cirrhotic appearing liver. Findings suggesting portal hypertension. Upper abdominal and perigastric varices. Kidneys enhance uniformly. Mild nonobstructive ileus. Unremarkable colonic bowel pattern. Several scattered diverticuli. No evidence of diverticulitis. Bladder is midline. IMPRESSION: 1. No acute process in the abdomen or pelvis. 2. Mild ileus. 3. Cirrhotic liver with findings of portal hypertension. 4. Patent upper abdominal and perigastric varices unchanged. The above report was generated using voice recognition software. It may contain grammatical, syntax or spelling errors. Electronically signed by: Jean Pereyra M.D. 12/20/2017 6:56 AM Dictated Date/Time: 12/20/2017 6:54 AM
[2017-12-20] MEDS: NICOTINE 7 MG/24 HR TDSY TD SCH (09:00)
[2017-12-20] MEDS: GABAPENTIN 600MG Q6H DOSE PO SCH ×2 (09:15→17:19)
--- NOTE | 2017-12-20 09:40 | HISTORY & PHYSICAL EXAMINATION ---
DATE OF ADMISSION: 12/20/2017 PRIMARY CARE PHYSICIAN: Dr. Cr. CHIEF COMPLAINT: Detox request. HISTORY OF PRESENT ILLNESS: History obtained from the patient and records. Medical history significant for alcoholic cirrhosis, COPD, ongoing tobacco abuse, paroxysmal atrial fibrillation/hx PE not on anticoagulation 2 to GI bleed, mood disorder, chronic thrombocytopenia, history of esophageal varices per records. Recent confinement last September 2017 for epigastric chest pain. Last night, patient fell on his bottom, complaining of pain, no passing out. Just lost balance. No chest pain, no shortness of breath. Patient came to the decision that he wants to stop drinking. Brought to the Emergency Room, noted to be in rapid aFib in the ER. MEDICAL HISTORY: As above. A 2D echo from June 2017 showed EF of 60-65%, normal LV systolic function, flattened septum, RV pressure overload, severe RV dilatation, moderate TR SURGERIES: Cholecystectomy. HOME MEDICATIONS: Include trazodone. FAMILY HISTORY: Hypertension. PERSONAL AND SOCIAL HISTORY: Half pack daily. Alcohol abuse . Disabled. REVIEW OF SYSTEMS: As per HPI, all 10 systems reviewed, all other ROS negative. PHYSICAL EXAMINATION: VITAL SIGNS: Blood pressure was noted to be 90/60 pulse rate 130, later 110; RR 26 T 37 O2sats 97 on room air. GENERAL: Noted to be unkempt, intoxicated, lying down on his right side. SKIN: Normal color, warm. HEENT: Partial alopecia, pink palpebral conjunctivae, no ptosis. Dry mucosa. NECK: Short, supple. CHEST: Decreased effort. No tenderness. HEART: Irregular. Palpable LE pulses. ABDOMEN: Soft, nontender. EXTREMITIES: No edema, no tenderness, no other gross deformities NEUROLOGIC: Coherent, but tremulous. LABORATORY DATA: Hemoglobin was noted to be 17.2, white cell 13 platelets noted to be 140 Sodium 134 potassium 3.8, chloride 106, CO2 18, BUN 5, creatinine 0.7. Alcohol level was noted to be 325 IMAGING DATA: Chest x-ray - no acute pathology. EKG as per my interpretation. aFib, rate 130 CT abdomen and pelvis initial read cirrhosis. ASSESSMENT: 1. Recurrent atrial fibrillation secondary to alcohol withdrawal Patient not on any maintenance rate control agents secondary to impulsiveness ( hx intentional Cardizem overdose). Patient not currently on anti-coagulation secondary to history GI bleed, cirrhosis, alcohol abuse. 2. Chronic obstructive pulmonary disease, ongoing tobacco abuse pulmonary status at baseline. 3. Pulmonary hypertension as per records 4. hx PE off anticoagulation 5. mood disorder, suboptimal. 6. alcoholic cirrhosis, no overt decompensation. 7. Chronic thrombocytopenia. PLAN: PCU. Digoxin as needed for rate control. (Unable to initiate beta-johnny or CCB Rx for now given borderline blood pressure. Cardio consult RE recurrent AFib. DT precautions. Psych consult, depression. Social service RE discharge planning. Nicotine patch DVT prophylaxis, SCDs RE thrombocytopenia Full code. Case discussed with the machine bunch maker planning division superintendent, Dr. Beltran. He recommends holding off on initiating maintenance rate control agents for now until patient seen in the morning. MTDD
[2017-12-20] MEDS ORDERED: DILTIAZEM HCL 30 MG TAB PO ONE (14:45)
--- NOTE | 2017-12-20 14:55 | Cardiology Consultation ---
Cardiology Consultation Date of Consultation: Dec 20, 2017 History of Present Illness Markos Martin is a 52 year old male seen in cardiology consultation per the request of Dr. Griffith for the evaluation of atrial fibrillation. The patient is well-known to our cardiology service. He has seen multiple providers from our services and inpatient in the past. I had personally seen him in February 2016 at which time he presented to the hospital intoxicated from alcohol and also having head but was felt to be an unintentional overdose in his diltiazem CD tablets. He developed symptomatic bradycardia and required temporary pacemaker support as well as medication support with glucagon and calcium gluconate. Levophed was also administered for blood pressure support at that time. He has a long-standing history of paroxysmal atrial fibrillation, and multiple hospital and ICU encounters related to ongoing alcohol dependence. The patient presented to the emergency room intoxicated with alcohol overnight last night. Is difficult to get a detailed history from him as he is not very talkative this morning. He tells me that he drank "a lot "of alcohol and he fell and that his buttocks hurt. EKG performed on arrival on 12/19/2017 at 2110 hrs. revealed atrial fibrillation with rapid ventricular rate 137 bpm. He received IV digoxin he remains in atrial fibrillation however his heart rates are improved down to the 90-110 bpm range. When he was seen by the undersigned he was in emergency room bed C3 as a telemetry overflow. Past Medical/Surgical History Problem List: Medical Problems: (1) Alcohol dependence (2) Alcoholic cirrhosis of liver without ascites (3) Asthma, mild persistent (4) Chronic anxiety (5) Chronic pancreatitis (6) COPD, mild (7) Esophageal varices (8) Hypothyroidism (9) Paroxysmal atrial fibrillation (10) Portal vein thrombosis (11) Pulmonary HTN (12) Thrombocytopenia (13) Tobacco abuse Surgical Problems: (1) H/O colonoscopy (2) History of cholecystectomy (3) History of esophagogastroduodenoscopy (EGD) History PAST MEDICAL HISTORY: 1. Portal vein thrombosis. 2. Pulmonary embolism with resultant right ventricular strain and pulmonary hypertension, not on Coumadin because of ongoing alcohol ingestion and frequent falls, frequent hospitalizations. 3. History of alcoholic liver cirrhosis and related hepatic encephalopathy as well at esophageal varices 4. Hypothyroidism. 5. Paroxysmal atrial fibrillation. 6. Chronic pancreatitis. 7. Asthma. 8. COPD. 9. Chronic anxiety. 10. Fall with pelvic fracture 2015 associated traumatic hematoma. PAST SURGICAL HISTORY: 1. Colonoscopy. 1. Laparoscopic cholecystectomy. 2. EGD with noted esophageal varices. 3. Endoscopic ultrasound. 4. Remote cardiac catheterization with nonobstructive CAD many years ago. FAMILY HISTORY: Significant for mother with diabetes. Father with myocardial infarction. Brother with heart disorder, details unknown. SOCIAL HISTORY: The patient states he continues to smoke, continues to use alcohol. Review Of Systems See above for pertinent positives & negatives. A total of 10 systems reviewed and were otherwise negative. Allergies Coded Allergies: Fentanyl (Verified Allergy, Intermediate, RASH ALL OVER BODY, 11/03/17) ALL OVER BODY Medications Reported Home Medications Medications Dose Route/Sig Max Daily Dose Days Date Category Desyrel (Trazodone Hcl) 150 Mg Tab 150 Mg PO HS 03/06/17 Reported Physical Exam Vital Signs (Last 8hrs): Last 8 Hrs Date Time Temp Pulse Resp B/P (MAP) Pulse Ox O2 Delivery O2 Flow Rate FiO2 12/20/17 12:00 Room Air 12/20/17 12:00 36.5 102 18 111/72 (85) 96 Room Air 12/20/17 08:00 Room Air 12/20/17 08:00 36.6 90 18 108/80 (89) 96 Room Air 12/20/17 06:41 83 General Appearance: Alert and Oriented x3. NAD. Head: Normocephalic Atraumatic. Eyes: PERRLA, EOMI, conjunctiva and sclera clear Neck: Supple. No carotid bruits noted. No JVD. No HJD. Respiratory: Breath sounds clear to auscultation bilaterally. No w/r/r. Cardiovascular: Reg rate and rhythm. S1 and S2 noted. No murmurs, rubs, gallops. PMI non displace. Abdomen: Normal bowel sounds, soft nontender. no abdominal bruits. Extremities: No edema, no clubbing or cyanosis. distal pulses 2/4 bilaterally. Neuro: No focal deficits. Psychiatric: Normal affect. Data Last Resulted 12/20/17 06:09 Red Blood Count 4.35, Mean Corpuscular Volume 98.4, Mean Corpuscular Hemoglobin 35.4, Mean Corpuscular Hemoglobin Concent 36.0, Mean Platelet Volume 11.7, Neutrophils (%) (Auto) 64.0, Lymphocytes (%) (Auto) 23.8, Monocytes (%) (Auto) 11.6, Eosinophils (%) (Auto) 0.1, Basophils (%) (Auto) 0.2, Neutrophils # (Auto ) 5.88, Lymphocytes # (Auto) 2.19, Monocytes # (Auto) 1.07, Eosinophils # (Auto ) 0.01, Basophils # (Auto) 0.02 Last Resulted 12/20/17 06:09 12/20/17 07:16 Past 24 Hours Test 12/19/17 21:25 12/19/17 21:36 Range/Units Creatine Kinase MB 2.7 0.5-3.6 ng/ml Creatine Kinase MB Ratio 1.2 0-3.0 Prothromb Time International Ratio 1.2 H 0.9-1.1 Prothrombin Time 12.5 H 9.0-12.0 SECONDS Total Creatine Kinase 228 39-308 U/L Summary of transthoracic echocardiogram dated 07/08/2017: The left ventricle is normal in size. There is normal left ventricular wall thickness. Left ventricular systolic function is normal. The left ventricular wall motion is normal. Flattened septum is consistent with RV pressure overload. Ejection Fraction = 60-65%. The right ventricle is severely dilated. The right ventricular systolic function is moderate to severely reduced. There is moderate tricuspid regurgitation. Severe pulmonary hypertension is present Assessment & Plan Impression: 52-year-old male who presents with recurrent atrial fibrillation in the setting of alcohol intoxication. Discussion/recommendations: The patient has a long-standing history of paroxysmal atrial fibrillation. When I had seen him in the hospital in 2016 at the time of a toxic ingestion of excessive diltiazem CD, he improved with supportive care and diltiazem was reinitiated. Dr. Templeton had seen him later the same year for another episode of atrial fibrillation once again this was paroxysmal. It is difficult to determine if he has been in chronic atrial fibrillation more recently or if it is indeed paroxysmal. He has a long-standing history of multiple thrombotic problems including history of hepatic vein thrombosis and pulmonary embolism. He however has multiple contraindications to anticoagulation including past gastrointestinal bleeding, esophageal varices, recurrent falls, and general non-adherence with his treatment plan and medications and therefore he is not a candidate for anticoagulation. I concur with Dr. Griffith's concerns regarding placing him on the diltiazem since he has had a prior toxic ingestion of this medication. But I think in the short-term it is our best option especially while he is in the hospital. The patient tells me that he wants to go to rehabilitation. Review of his chart reveals that he has had multiple emergency department and hospitalization encounters for similar complaints but he has reverted to recurrent alcohol ingestion on many occasions in the past. His echocardiogram is chronically abnormal with a history of right ventricular strain pattern that has been felt to be due to his past history of pulmonary embolism.
--- NOTE | 2017-12-20 17:28 | Progress Note ---
Internal Med Progress Note Date of Service: Dec 20, 2017. Provider Documentation: SUBJECTIVE: resting comfortably no shaking alert and oriented denies headache no chest pain or palpitations no sob afebrile eating ok OBJECTIVE: Vital Signs-as noted below Exam: General-alert and oriented. Not in distress ENT-Normal hearing Neck-no neck masses Lungs-cta b/l no wheezing or crackles Heart-S1 and S2 heard irregular no murmurs Abdomen-Soft bowel sounds present non tender no distension Extremities-no edema no erythema Neuro-alert and awake moves extremities Lab data as noted below. ASSESSMENT & PLAN: 1. Recurrent atrial fibrillation secondary to alcohol withdrawal Patient was not on any meds secondary to impulsiveness (hx intentional Cardizem overdose). also not currently on anti-coagulation secondary to history GI bleed, cirrhosis , alcohol abuse. received digoxin currently placed on po Cardizem by cardiology continue to monitor Alcoholism says drinking heavily mostly beer on DT protocol thiamine and folic acid will monitor Chronic obstructive pulmonary disease, ongoing tobacco abuse pulmonary status at baseline. Pulmonary hypertension as per records hx PE off anticoagulation mood disorder, suboptimal. alcoholic cirrhosis, no overt decompensation. Chronic thrombocytopenia. platelets 110 today DVT PROPHYLAXIS scds DISPOSITION monitor in tele Vital Signs: Date Time Temp Pulse Resp B/P (MAP) Pulse Ox O2 Delivery O2 Flow Rate FiO2 12/20/17 15:54 Room Air 12/20/17 15:42 37.1 104 18 122/77 (92) 93 Room Air 12/20/17 12:00 Room Air 12/20/17 12:00 36.5 102 18 111/72 (85) 96 Room Air 12/20/17 08:00 Room Air 12/20/17 08:00 36.6 90 18 108/80 (89) 96 Room Air 12/20/17 06:41 83 12/20/17 04:07 117 12/20/17 04:00 93 Nasal Cannula 2.0 12/20/17 04:00 36.8 78 18 88/61 (70) 93 Nasal Cannula 2.0 12/20/17 03:43 107 12/20/17 03:30 36.8 109 24 93/71 93 Nasal Cannula 2.0 12/20/17 03:00 36.7 110 20 91/59 95 Room Air 12/20/17 02:08 104 20 89/65 95 Room Air 12/20/17 01:14 110 12/20/17 01:00 36.8 115 20 90/67 96 Room Air 12/20/17 00:00 37.0 111 20 83/52 95 Room Air 12/19/17 22:05 140 20 114/85 95 Room Air 12/19/17 21:58 136 22 96/ 97 Room Air 12/19/17 21:27 95 Room Air 12/19/17 21:18 37.0 118 20 123/88 95 Room Air 12/19/17 21:15 143 Lab Results: Results Past 24 Hours Test 12/19/17 21:25 12/19/17 21:36 12/19/17 21:40 12/19/17 21:50 Range/Units White Blood Count 13.44 4.8-10.8 K/uL Red Blood Count 4.89 4.7-6.1 M/uL Hemoglobin 17.2 14.0-18.0 g/dL Hematocrit 47.0 42-52 % Mean Corpuscular Volume 96.1 80-100 fL Mean Corpuscular Hemoglobin 35.2 25-34 pg Mean Corpuscular Hemoglobin Concent 36.6 32-36 g/dl Platelet Count 141 130-400 K/uL Mean Platelet Volume 11.5 7.4-10.4 fL Neutrophils (%) (Auto) 77.1 % Lymphocytes (%) (Auto) 14.6 % Monocytes (%) (Auto) 7.9 % Eosinophils (%) (Auto) 0.0 % Basophils (%) (Auto) 0.1 % Neutrophils # (Auto) 10.37 1.4-6.5 K/uL Lymphocytes # (Auto) 1.96 1.2-3.4 K/uL Monocytes # (Auto) 1.06 0.11-0.59 K/uL Eosinophils # (Auto) 0.00 0-0.5 K/uL Basophils # (Auto) 0.01 0-0.2 K/uL RDW Standard Deviation 43.1 36.4-46.3 fL RDW Coefficient of Variation 12.3 11.5-14.5 % Immature Granulocyte % (Auto) 0.3 % Immature Granulocyte # (Auto) 0.04 0.00-0.02 K/uL Prothrombin Time 12.5 9.0-12.0 SECONDS Prothromb Time International Ratio 1.2 0.9-1.1 Activated Partial Thromboplast Time 25.9 21.0-31.0 SECONDS Partial Thromboplastin Ratio 1.0 Sodium Level 137 136-145 mmol/L Potassium Level 3.3 3.5-5.1 mmol/L Chloride Level 106 98-107 mmol/L Carbon Dioxide Level 18 21-32 mmol/L Anion Gap 13.0 3-11 mmol/L Blood Urea Nitrogen 5 7-18 mg/dl Creatinine 0.75 0.60-1.40 mg/dl Est Creatinine Clear Calc Drug Dose 99.1 ml/min Estimated GFR () 121.4 Estimated GFR (Non- 104.7 BUN/Creatinine Ratio 6.1 10-20 Random Glucose 112 70-99 mg/dl Calcium Level 8.6 8.5-10.1 mg/dl Magnesium Level 1.9 1.8-2.4 mg/dl Total Bilirubin 1.6 0.2-1 mg/dl Direct Bilirubin 0.3 0-0.2 mg/dl Aspartate Amino Transf (AST/SGOT) 52 15-37 U/L Alanine Aminotransferase (ALT/SGPT) 31 12-78 U/L Alkaline Phosphatase 106 45-117 U/L Total Creatine Kinase 228 39-308 U/L Creatine Kinase MB 2.7 0.5-3.6 ng/ml Creatine Kinase MB Ratio 1.2 0-3.0 Total Protein 7.4 6.4-8.2 gm/dl Albumin 2.8 3.4-5.0 gm/dl Lipase 139 73-393 U/L Procalcitonin 0.05 0-0.5 ng/ml Thyroid Stimulating Hormone (TSH) 1.160 0.300-4.500 uIu/ml Ethyl Alcohol mg/dL 325.5 0-3 mg/dl Urine Opiates Screen NEG NEG Urine Methadone, Qualitative NEG NEG Urine Barbiturates NEG NEG Urine Phencyclidine (PCP) Level NEG NEG Ur Amphetamine/Methamphetamine NEG NEG MDMA (Ecstasy) Screen NEG NEG Urine Benzodiazepines Screen NEG NEG Urine Cocaine Metabolite NEG NEG Urine Marijuana (THC) NEG NEG Bedside Troponin I < 0.030 0-0.045 ng/ml Test 12/20/17 00:39 12/20/17 01:34 12/20/17 06:09 12/20/17 07:16 Range/Units Lactic Acid Level 1.9 0.4-2.0 mmol/L Urine Color YELLOW Urine Appearance CLEAR CLEAR Urine pH 5.5 4.5-7.5 Urine Specific [place] 1.005 1.000-1.030 Urine Protein NEG NEG Urine Glucose (UA) NEG NEG Urine Ketones NEG NEG Urine Occult Blood NEG NEG Urine Nitrite NEG NEG Urine Bilirubin NEG NEG Urine Urobilinogen NEG NEG Urine Leukocyte Esterase NEG NEG Urine Opiates Screen NEG NEG Urine Methadone, Qualitative NEG NEG Urine Barbiturates NEG NEG Urine Phencyclidine (PCP) Level NEG NEG Ur Amphetamine/Methamphetamine NEG NEG MDMA (Ecstasy) Screen NEG NEG Urine Benzodiazepines Screen NEG NEG Urine Cocaine Metabolite NEG NEG Urine Marijuana (THC) NEG NEG White Blood Count 9.20 4.8-10.8 K/uL Red Blood Count 4.35 4.7-6.1 M/uL Hemoglobin 15.4 14.0-18.0 g/dL Hematocrit 42.8 42-52 % Mean Corpuscular Volume 98.4 80-100 fL Mean Corpuscular Hemoglobin 35.4 25-34 pg Mean Corpuscular Hemoglobin Concent 36.0 32-36 g/dl Platelet Count 110 130-400 K/uL Mean Platelet Volume 11.7 7.4-10.4 fL Neutrophils (%) (Auto) 64.0 % Lymphocytes (%) (Auto) 23.8 % Monocytes (%) (Auto) 11.6 % Eosinophils (%) (Auto) 0.1 % Basophils (%) (Auto) 0.2 % Neutrophils # (Auto) 5.88 1.4-6.5 K/uL Lymphocytes # (Auto) 2.19 1.2-3.4 K/uL Monocytes # (Auto) 1.07 0.11-0.59 K/uL Eosinophils # (Auto) 0.01 0-0.5 K/uL Basophils # (Auto) 0.02 0-0.2 K/uL RDW Standard Deviation 45.1 36.4-46.3 fL RDW Coefficient of Variation 12.6 11.5-14.5 % Immature Granulocyte % (Auto) 0.3 % Immature Granulocyte # (Auto) 0.03 0.00-0.02 K/uL Sodium Level 143 136-145 mmol/L Potassium Level 4.6 3.5-5.1 mmol/L Chloride Level 116 98-107 mmol/L Carbon Dioxide Level 21 21-32 mmol/L Anion Gap 6.0 3-11 mmol/L Blood Urea Nitrogen 4 7-18 mg/dl Creatinine 0.66 0.60-1.40 mg/dl Est Creatinine Clear Calc Drug Dose 112.6 ml/min Estimated GFR () 127.9 Estimated GFR (Non- 110.4 BUN/Creatinine Ratio 5.6 10-20 Random Glucose 96 70-99 mg/dl Calcium Level 7.1 8.5-10.1 mg/dl Albumin 2.2 3.4-5.0 gm/dl Microbiology Results 12/19/17 Blood Culture, Received Pending 12/19/17 Blood Culture, Received Pending
[2017-12-20] MEDS: LORAZEPAM 2 MG/ML 1 ML VIAL IV PRN (20:44)
[2017-12-20] MEDS: DILTIAZEM HCL 30 MG TAB PO SCH (20:45)
[2017-12-20] MEDS ORDERED: TRAZODONE HCL 50 MG TAB PO SCH (21:00)
[2017-12-20] MEDS: GABAPENTIN 600MG Q8H DOSE PO SCH (23:57)
[2017-12-21] VITALS (8 sets, daily range): BP systolic 84–108; BP diastolic 52–73; PULSE 78–99; TEMP 36.5–37.4; O2SAT 93–95
--- NOTE | 2017-12-21 07:35 | Clinical Documentation Query ---
CLINICAL DOCUMENTATION QUERY 52 yo male admitted for atrial fibrillation and alcohol intoxication. CT of abdomen/pelvis shows "cirrhotic liver with findings of portal hypertension". In your clinical opinion is this patient being managed for: ( ) Portal hypertension ( ) Not Agree ( ) Other explanation of clinical findings (Please Explain) ( ) Unable to determine (Please Define) ( ) Need to Discuss The medical record reflects the following clinical findings, treatment, and risk factors. Clinical Indicators: As above Treatment: IV hydration, diet, telemetry Risk Factors: Alcohol abuse, cirrhosis of liver Please clarify and document your clinical opinion in the progress notes and discharge summary. Terms such as "probable", "suspected", "likely", "questionable", "possible", or "still to be ruled out" are acceptable. IF IN AGREEMENT, YOU MUST DOCUMENT ABOVE DIAGNOSTIC STATEMENT IN DAILY PROGRESS NOTES AND DISCHARGE SUMMARY. This document is not part of the patient's record. Thank You, Dunia Zuniga RN [phone]
[2017-12-21] MEDS: GABAPENTIN 600MG Q8H DOSE PO SCH ×2 (07:43→15:38)
[2017-12-21] MEDS: DILTIAZEM HCL 30 MG TAB PO SCH ×2 (07:45→14:14)
[2017-12-21] MEDS: NICOTINE 7 MG/24 HR TDSY TD SCH (07:45)
[2017-12-21] MEDS ORDERED: MULTIVITAMIN TAB PO SCH (09:00)
[2017-12-21] MEDS ORDERED: THIAMINE HCL 100 MG TAB PO SCH (09:00)
[2017-12-21] MEDS: LORAZEPAM 2 MG/ML 1 ML VIAL IV PRN ×3 (14:14→16:22)
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
--- NOTE | 2017-12-21 18:06 | Progress Note ---
Internal Med Progress Note Date of Service: Dec 21, 2017. Provider Documentation: SUBJECTIVE: was doing ok in the morning denied any chest pain or sob afebrile says he felt palpitations once but was ok now but later in the day patient wanted to leave the hospital seems shaky and could not tell the date and time and already received couple of doses of Ativan for alcohol withdrawal OBJECTIVE: Vital Signs-as noted below Exam: General-alert and awake. somewhat agitated ENT-Normal hearing Neck-no neck masses Lungs-cta b/l no wheezing or crackles Heart-S1 and S2 heard irregular no murmurs Abdomen-Soft bowel sounds present non tender no distension Extremities-no edema no erythema Neuro-alert and awake moves extremities Lab data as noted below. ASSESSMENT & PLAN: 1. Recurrent atrial fibrillation secondary to alcohol withdrawal Patient was not on any meds secondary to impulsiveness (hx intentional Cardizem overdose). also not currently on anti-coagulation secondary to history GI bleed, cirrhosis , alcohol abuse. received digoxin currently placed on po Cardizem by cardiology no anticoagulation secondary to ongoing alcoholism, fall risk and compliance continue to monitor Alcoholism alcohol withdrawal says drinking heavily mostly beer on DT protocol with gabapentin and Ativan thiamine and folic acid close monitor as patient wants while to leave the hospital now one on one Chronic obstructive pulmonary disease, ongoing tobacco abuse pulmonary status at baseline. Pulmonary hypertension as per records hx PE off anticoagulation mood disorder, suboptimal. alcoholic cirrhosis, no overt decompensation. Chronic thrombocytopenia. platelets 110 today DVT PROPHYLAXIS scds DISPOSITION monitor in tele Vital Signs: Date Time Temp Pulse Resp B/P (MAP) Pulse Ox O2 Delivery O2 Flow Rate FiO2 12/21/17 15:17 36.9 89 20 104/72 (83) 94 Room Air 12/21/17 14:11 36.9 78 20 108/70 (83) 95 Room Air 12/21/17 12:00 Room Air 12/21/17 11:24 36.9 78 16 84/52 (63) 95 Room Air 12/21/17 08:00 Room Air 12/21/17 07:42 37.4 99 16 99/67 (78) 94 Room Air 12/21/17 04:49 37.0 81 19 97/64 (75) 94 Room Air 12/21/17 04:00 Room Air 12/21/17 00:14 36.9 90 19 84/55 (65) 93 Room Air 12/20/17 23:59 Room Air 12/20/17 23:59 Room Air 12/20/17 20:00 97 Room Air 12/20/17 19:40 36.9 77 18 117/79 (92) 97 Room Air
--- NOTE | 2017-12-21 20:00 | Progress Note ---
Internal Med Progress Note Date of Service: Dec 21, 2017. Provider Documentation: Made aware by RN of patient desire to to leave the hospital tonight. Patient oriented. Patient informed of risks of leaving hospital AGAINST MEDICAL ADVICE which includes as an extreme circumstance. Patient understands and accepts above risks. AMA form signed by patient. Dr. Tom to accomplish discharge summary. Vital Signs: Date Time Temp Pulse Resp B/P (MAP) Pulse Ox O2 Delivery O2 Flow Rate FiO2 12/21/17 20:03 36.5 93 18 94 Room Air 12/21/17 19:17 36.5 93 18 108/73 (85) 94 Room Air 12/21/17 16:00 Room Air 12/21/17 15:17 36.9 89 20 104/72 (83) 94 Room Air 12/21/17 14:11 36.9 78 20 108/70 (83) 95 Room Air 12/21/17 12:00 Room Air 12/21/17 11:24 36.9 78 16 84/52 (63) 95 Room Air 12/21/17 08:00 Room Air 12/21/17 07:42 37.4 99 16 99/67 (78) 94 Room Air
[2017-12-22] MEDS ORDERED: GABAPENTIN 600MG Q12H DOSE PO SCH (06:00)
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
[2017-12-23] MEDS ORDERED: GABAPENTIN 600MG X1 DOSE PO SCH (06:00)
== END 2017-12-21 20:29 | disposition left against medical advice (07) | DRG 309 ==
LOC: EDBD 21:03 → C.EDB 21:04 → C.EDINP 12-20 02:53 → ENRESERV 12-20 13:10 → C.2T 12-20 14:07
PROVIDERS: ADMIT Internal Medicine; ATTEND Internal Medicine
DX: I48.91 Unspecified atrial fibrillation (principal); K76.6 Portal hypertension; F10.239 Alcohol dependence with withdrawal, unspecified; J45.30 Mild persistent asthma, uncomplicated; F41.9 Anxiety disorder, unspecified; J44.9 Chronic obstructive pulmonary disease, unspecified; E03.9 Hypothyroidism, unspecified; F17.200 Nicotine dependence, unspecified, uncomplicated; F39 Unspecified mood [affective] disorder; E86.0 Dehydration; K70.30 Alcoholic cirrhosis of liver without ascites; D69.6 Thrombocytopenia, unspecified; Z90.49 Acquired absence of other specified parts of digestive tract; Z86.711 Personal history of pulmonary embolism; Z83.3 Family history of diabetes mellitus; Z82.49 Family history of ischemic heart disease and other diseases of the circulatory system; Z80.6 Family history of leukemia; Z88.6 Allergy status to analgesic agent

== ENCOUNTER 2017-12-22 16:36 | Emergency (ER) | payer OTHER ==
[~2017-12-22] VITALS: Ht 180.3 cm; Wt 67.3 kg
[2017-12-22 16:43] VITALS: TEMP 37.1; Ht 180.3 cm; Wt 67.3 kg
[2017-12-22] MEDS ORDERED: SODIUM CHLORIDE 0.9% 1000ML 500 ML IV STA (16:45)
--- NOTE | 2017-12-22 16:48 | EMERGENCY ROOM VISIT NOTE ---
History Report prepared by López: Kalyn Cali Under the Supervision of: Dr. Salazar Martinez M.D. First contact with patient: 16:39 Stated Complaint: BACK & HIP PAIN History of Present Illness The patient is a 52 year old male who presents to the Emergency Room with complaints of sudden bilateral hip pain beginning 3 hours prior to arrival. He reports that he did not walk after the fall. The patient states that he believes that he passed out before he fell. He also reports having back pain, pelvic pain, and chest pain, but reports that he did not hit his head and that he is not having head pain. The patient reports a history of a broken pelvis. The patient was in the hospital yesterday for atrial fibrillation secondary to alcohol withdrawal. The patient left against medical advice. Source of History: patient Onset: 3 hours prior to arrival Position: other (bilateral hip ) Timing: other (sudden ) Associated Symptoms: + chest pain, + back pain, No headache Note: additional symptom: pelvic pain Review of Systems See HPI for pertinent positives & negatives. A total of 10 systems reviewed and were otherwise negative. Past Medical & Surgical Medical Problems: (1) Alcohol dependence (2) Alcoholic cirrhosis of liver without ascites (3) Asthma, mild persistent (4) Chronic anxiety (5) Chronic pancreatitis (6) COPD, mild (7) Esophageal varices (8) Hypothyroidism (9) Paroxysmal atrial fibrillation (10) Portal vein thrombosis (11) Pulmonary HTN (12) Thrombocytopenia (13) Tobacco abuse Surgical Problems: (1) H/O colonoscopy (2) History of cholecystectomy (3) History of esophagogastroduodenoscopy (EGD) Family History Blood clots Diabetes mellitus MOTHER FH: CAD (coronary artery disease) FATHER BROTHER FH: leukemia AUNT Hypertension Social History Smoking Status: Current Every Day Smoker Alcohol Use: heavy Drug Use: none Marital Status: Housing Status: lives with family Occupation Status: unemployed Current/Historical Medications Scheduled Trazodone Hcl (Desyrel), 150 MG PO HS Allergies Coded Allergies: Fentanyl (Verified Allergy, Intermediate, RASH ALL OVER BODY, 12/22/17) ALL OVER BODY Physical Exam Vital Signs Date Time Temp Pulse Resp B/P (MAP) Pulse Ox O2 Delivery O2 Flow Rate FiO2 12/22/17 18:30 88 18 95/53 96 Room Air 12/22/17 17:21 110 12/22/17 16:43 37.1 103 20 132/75 96 Room Air Physical Exam GENERAL: Patient is in no acute distress. Alcohol on his breath. HEENT: No acute trauma, normocephalic atraumatic, mucous membranes moist, no nasal congestion, no scleral icterus. NECK: No stridor, no adenopathy, no meningismus, trachea is midline. LUNGS: Clear to auscultation bilaterally, no wheeze, no rhonchi, breath sounds equal. HEART: Irregular with a mild tachycardia. No murmurs. ABDOMEN: Soft, nontender, bowel sounds positive, no hernias, no peritonitis. EXTREMITIES: Pain with movement of the left hip, no gross deformity. NVI distally in both lower extremities. Movement of the right lower extremity causes no pain. No evidence for upper extremity trauma. NEUROLOGIC: Oriented x 3, no acute motor or sensory deficits, no focal weakness. SKIN: No rash, no jaundice, no diaphoresis. Medical Decision & Procedures ER Provider Diagnostic Interpretation: Radiology results as stated below per my review and radiologist interpretation: CHEST 2 VIEWS ROUTINE CLINICAL HISTORY: EVALUATE ALTERED MENTAL STATUS/WEAKNESS COMPARISON STUDY: 12/19/2017 FINDINGS: The bones soft tissues and hemidiaphragms are normal. The cardiomediastinal silhouette is normal. The lungs are clear. The pulmonary vasculature is normal. IMPRESSION: Negative chest. The above report was generated using voice recognition software. It may contain grammatical, syntax or spelling errors. Electronically signed by: Jean Pereyra M.D. 12/22/2017 6:12 PM Dictated Date/Time: 12/22/2017 6:12 PM L PELVIS/UNILATERAL HIP 2-3VIEWS CLINICAL HISTORY: FALL/LT HIP PAIN pain COMPARISON: None. DISCUSSION: No acute process of the hips. Fracture left pubic ring. No evidence for acetabular protrusion. No evidence of dislocation. Mild degenerative change sacroiliac joints. There is no evidence for soft tissue swelling. IMPRESSION: Nondisplaced fracture left pubic ring. No acute process of the hips. The above report was generated using voice recognition software. It may contain grammatical, syntax or spelling errors. Electronically signed by: Jean Pereyra M.D. 12/22/2017 6:12 PM Dictated Date/Time: 12/22/2017 6:10 PM Laboratory Results 12/22/17 17:13 12/22/17 17:13 Test 12/22/17 17:13 Red Blood Count 4.54 M/uL (4.7-6.1) Mean Corpuscular Volume 96.7 fL (80-100) Mean Corpuscular Hemoglobin 35.7 pg (25-34) Mean Corpuscular Hemoglobin Concent 36.9 g/dl (32-36) RDW Standard Deviation 43.9 fL (36.4-46.3) RDW Coefficient of Variation 12.4 % (11.5-14.5) Mean Platelet Volume 11.8 fL (7.4-10.4) Anion Gap 9.0 mmol/L (3-11) Est Creatinine Clear Calc Drug Dose 127.1 ml/min Estimated GFR () 129.6 Estimated GFR (Non- 111.8 BUN/Creatinine Ratio 8.8 (10-20) Calcium Level 8.4 mg/dl (8.5-10.1) Total Bilirubin 2.2 mg/dl (0.2-1) Aspartate Amino Transf (AST/SGOT) 38 U/L (15-37) Alanine Aminotransferase (ALT/SGPT) 28 U/L (12-78) Alkaline Phosphatase 95 U/L (45-117) Troponin I < 0.015 ng/ml (0-0.045) Total Protein 6.8 gm/dl (6.4-8.2) Albumin 2.5 gm/dl (3.4-5.0) Globulin 4.3 gm/dl (2.5-4.0) Albumin/Globulin Ratio 0.6 (0.9-2) Ethyl Alcohol mg/dL 140.0 mg/dl (0-3) Laboratory results reviewed by me. Medications Administered Medications (Trade) Dose Ordered Sig/Justin Route Start Time Stop Time Status Last Admin Dose Admin Sodium Chloride 500 ml @ 999 mls/hr Q31M STAT IV 12/22/17 16:45 12/22/17 17:15 DC 12/22/17 17:31 999 MLS/HR Acetaminophen (Tylenol Tab) 650 mg NOW STAT PO 12/22/17 18:40 12/22/17 18:41 DC 12/22/17 18:53 650 MG ECG Per My Interpretation Indication: tachycardia Rate (beats per minute): 109 Rhythm: sinus tachycardia Findings: nonspecific-ST abn, PAC, prolonged QT (mildly), other (no ST elevation ) ED Course 1643: The patient was evaluated in room B2. A complete history and physical exam was performed. 164: Ordered Sodium Chloride 500 ml @ 999 mls/hr IV. 184: Ordered Tylenol Tab 650 mg PO. 184: Reevaluated the patient. Discussed results and discharge instructions: He verbalized understanding and agreement. The patient is ready for discharge. Medical Decision The patient is a 52 year old male who presents to the ED with complaints of bilateral hip pain. Differential diagnoses considered include pelvic or hip contusion, pelvic or hip fracture, intracranial injury, C spine injury, chest trauma, alcohol abuse, dehydration, electrolyte imbalance, anemia, and atrial fibrillation. There is no leukocytosis or concerning anemia. No significant electrolyte abnormality or kidney failure. LFTs are somewhat elevated but this is a chronic issue for him. Chest film does not show pneumonia or pneumothorax. No pulmonary contusion or mediastinal widening. Pelvis and left hip films show a left pubic ring fracture, no hip fracture or hip dislocation. I look back at old films and the pubic ring fracture has been documented before. An EKG was done. This showed sinus tachycardia with PACs, no A. fib noted. No acute ischemia. Cardiac enzyme testing 1 does not show evidence for acute cardiac injury. The patient was given oral Tylenol and a bolus of IV saline, he has been resting. The patient was reassured by his testing. He is being discharged. He has contused his hip and pelvis from the fall. He was told to avoid alcohol in excess. Tylenol was suggested for pain. Ice was suggested. Medication Reconcilliation Current Medication List: was personally reviewed by me Blood Pressure Screening Patient's blood pressure: Normal blood pressure Impression Primary Impression: Alcohol abuse Additional Impressions: Fall Contusion of left hip Scribe Attestation The scribe's documentation has been prepared under my direction and personally reviewed by me in its entirety. I confirm that the note above accurately reflects all work, treatment, procedures, and medical decision making performed by me. Departure Information Dispostion Home / Self-Care Referrals Darrius Cr M.D. (MEDICAL) (PCP) Forms HOME CARE DOCUMENTATION FORM, IMPORTANT VISIT INFORMATION Additional Instructions avoid alcohol in excess tylenol for pain ice to the sore areas films today show an old fracture noted on previous imaging--no new fracture suspected return if worsening be sure to follow with your doctors as an outpatient Problem Qualifiers
[2017-12-22 17:25] LABS: HEMATOCRIT 43.9 % (42-52); HEMOGLOBIN 16.2 g/dL (14.0-18.0); MEAN CELL VOLUME 96.7 fL (80-100); MEAN CORPUSCULAR HEMOGLOBIN 35.7 pg (25-34); MEAN CORPUSCULAR HGB CONC 36.9 g/dl (32-36); MEAN PLATELET VOLUME 11.8 fL (7.4-10.4); PLATELET COUNT 110 K/uL (130-400); RED CELL DISTRIBUTION WIDTH CV 12.4 % (11.5-14.5); RED CELL DISTRIBUTION WIDTH SD 43.9 fL (36.4-46.3); WHITE BLOOD COUNT 10.63 K/uL (4.8-10.8)
[2017-12-22 17:48] LABS: ALBUMIN 2.5 gm/dl (3.4-5.0); ALKALINE PHOSPHATASE 95 U/L (45-117); ALT/SGPT 28 U/L (12-78); AST/SGOT 38 U/L (15-37); BLOOD UREA NITROGEN 6 mg/dl (7-18); CALCIUM 8.4 mg/dl (8.5-10.1); CARBON DIOXIDE 22 mmol/L (21-32); CREATININE 0.64 mg/dl (0.60-1.40); GLUCOSE 73 mg/dl (70-99); POTASSIUM 3.4 mmol/L (3.5-5.1); SODIUM 138 mmol/L (136-145); TOTAL PROTEIN 6.8 gm/dl (6.4-8.2)
--- NOTE | 2017-12-22 18:13 | DIAGNOSTIC IMAGING REPORT ---
CHEST 2 VIEWS ROUTINE CLINICAL HISTORY: EVALUATE ALTERED MENTAL STATUS/WEAKNESS COMPARISON STUDY: 12/19/2017 FINDINGS: The bones soft tissues and hemidiaphragms are normal. The cardiomediastinal silhouette is normal. The lungs are clear. The pulmonary vasculature is normal. IMPRESSION: Negative chest. The above report was generated using voice recognition software. It may contain grammatical, syntax or spelling errors. Electronically signed by: Jean Pereyra M.D. 12/22/2017 6:12 PM Dictated Date/Time: 12/22/2017 6:12 PM
--- NOTE | 2017-12-22 18:13 | DIAGNOSTIC IMAGING REPORT ---
L PELVIS/UNILATERAL HIP 2-3VIEWS CLINICAL HISTORY: FALL/LT HIP PAIN pain COMPARISON: None. DISCUSSION: No acute process of the hips. Fracture left pubic ring. No evidence for acetabular protrusion. No evidence of dislocation. Mild degenerative change sacroiliac joints. There is no evidence for soft tissue swelling. IMPRESSION: Nondisplaced fracture left pubic ring. No acute process of the hips. The above report was generated using voice recognition software. It may contain grammatical, syntax or spelling errors. Electronically signed by: Jean Pereyra M.D. 12/22/2017 6:12 PM Dictated Date/Time: 12/22/2017 6:10 PM
[2017-12-22 18:30] VITALS: BP 95/53; PULSE 88; O2SAT 96
[2017-12-22] MEDS ORDERED: ACETAMINOPHEN 325 MG TAB PO STA (18:40)
== END 2017-12-22 19:07 | disposition home or self-care (01) ==
LOC: EDBD 16:36 → C.EDB 16:37
DX: F10.129 Alcohol abuse with intoxication, unspecified (principal); S70.02XA Contusion of left hip, initial encounter; W19.XXXA Unspecified fall, initial encounter; K70.30 Alcoholic cirrhosis of liver without ascites; J45.909 Unspecified asthma, uncomplicated; F41.9 Anxiety disorder, unspecified; J44.9 Chronic obstructive pulmonary disease, unspecified; E03.9 Hypothyroidism, unspecified; I48.91 Unspecified atrial fibrillation; I10 Essential (primary) hypertension; Z83.3 Family history of diabetes mellitus; Z82.49 Family history of ischemic heart disease and other diseases of the circulatory system; F17.200 Nicotine dependence, unspecified, uncomplicated; Z88.8 Allergy status to other drugs, medicaments and biological substances

== ENCOUNTER 2017-12-28 20:01 | Emergency (ER) | payer OTHER ==
[~2017-12-28] VITALS: Ht 165.1 cm; Wt 63.4 kg
[2017-12-28 20:09] VITALS: TEMP 36.6; Ht 165.1 cm; Wt 63.4 kg
[2017-12-28] MEDS ORDERED: SODIUM CHLORIDE 0.9% 1000ML 1,000 ML IV STA (20:22)
[2017-12-28] MEDS ORDERED: THIAMINE HCL 100 MG/ML 2 ML VIAL IV STA (20:22)
[2017-12-28] MEDS ORDERED: ACETAMINOPHEN 500 MG TAB PO STA (20:22)
[2017-12-28] MEDS ORDERED: ONDANSETRON INJ 2 MG/ML 2 ML VIAL IV STA (20:24)
[2017-12-28 20:27] VITALS: O2SAT 94
[2017-12-28 20:33] LABS: BASO % 0.5 %; BASO ABS # 0.04 K/uL (0-0.2); EOS % 4.5 %; EOS ABS # 0.35 K/uL (0-0.5); HEMATOCRIT 40.5 % (42-52); HEMOGLOBIN 14.8 g/dL (14.0-18.0); IG# 0.02 K/uL (0.00-0.02); LYMPH % 37.3 %; MEAN CELL VOLUME 96.9 fL (80-100); MEAN CORPUSCULAR HEMOGLOBIN 35.4 pg (25-34); MEAN CORPUSCULAR HGB CONC 36.5 g/dl (32-36); MEAN PLATELET VOLUME 10.8 fL (7.4-10.4); MONO ABS # 0.93 K/uL (0.11-0.59); NEUT % 45.4 %; NEUT ABS # 3.54 K/uL (1.4-6.5); PLATELET COUNT 131 K/uL (130-400); RED CELL DISTRIBUTION WIDTH CV 12.7 % (11.5-14.5); RED CELL DISTRIBUTION WIDTH SD 44.9 fL (36.4-46.3); WHITE BLOOD COUNT 7.78 K/uL (4.8-10.8)
[2017-12-28 20:42] LABS: INR 1.1 (0.9-1.1); PTT PATIENT 27.1 SECONDS (21.0-31.0)
[2017-12-28 20:52] LABS: ALBUMIN 2.3 gm/dl (3.4-5.0); ALT/SGPT 24 U/L (12-78); BLOOD UREA NITROGEN 5 mg/dl (7-18); CARBON DIOXIDE 24 mmol/L (21-32); GLUCOSE 92 mg/dl (70-99); LIPASE 243 U/L (73-393); POTASSIUM 3.3 mmol/L (3.5-5.1); SODIUM 138 mmol/L (136-145)
--- NOTE | 2017-12-28 20:53 | EMERGENCY ROOM VISIT NOTE ---
History Report prepared by López: Neftali Antunez Under the Supervision of: Dr. Pierre Cruz D.O. First contact with patient: 20:05 Chief Complaint: ALCOHOL OVERDOSE Stated Complaint: ETOH History of Present Illness The patient is a 52 year old male who presents to the Emergency Room with requests for an alcohol detoxification starting this evening. The patient states that he called field logistics coordinator ankit because he needed help with his alcohol problem. The patient reports that he drinks about 7-8 32 ounces every day. He reports that his last alcoholic beverage was an hour ago. The patient states that he went to his mother and father's house around 1700 when he had an episode of vomiting. He reports that he has been dry heaving since. The patient states that he has been having thoughts of wanting to hurt himself today. He reports he no longer has these harmful thoughts. The patient reports that he fell three years ago and has been experiencing pelvic pain since. He denies any drug use. Source of History: patient Onset: this evening Position: other (global) Quality: other (global) Associated Symptoms: + nausea, + vomiting Note: Associated pain: hip pain Review of Systems See HPI for pertinent positives & negatives. A total of 10 systems reviewed and were otherwise negative. Past Medical & Surgical Medical Problems: (1) Alcohol dependence (2) Alcoholic cirrhosis of liver without ascites (3) Asthma, mild persistent (4) Chronic anxiety (5) Chronic pancreatitis (6) COPD, mild (7) Esophageal varices (8) Hypothyroidism (9) Paroxysmal atrial fibrillation (10) Portal vein thrombosis (11) Pulmonary HTN (12) Thrombocytopenia (13) Tobacco abuse Surgical Problems: (1) H/O colonoscopy (2) History of cholecystectomy (3) History of esophagogastroduodenoscopy (EGD) Family History Blood clots Diabetes mellitus MOTHER FH: CAD (coronary artery disease) FATHER BROTHER FH: leukemia AUNT Hypertension Social History Smoking Status: Current Every Day Smoker Alcohol Use: heavy Drug Use: none Marital Status: Housing Status: lives with family Occupation Status: unemployed Current/Historical Medications Scheduled Trazodone Hcl (Desyrel), 150 MG PO HS Allergies Coded Allergies: Fentanyl (Verified Allergy, Intermediate, RASH ALL OVER BODY, 12/22/17) ALL OVER BODY Physical Exam Vital Signs Date Time Temp Pulse Resp B/P (MAP) Pulse Ox O2 Delivery O2 Flow Rate FiO2 3/24/18 00:10 74 12/28/17 22:42 77 16 83/43 97 Nasal Cannula 2.0 12/28/17 21:55 Nasal Cannula 2.0 12/28/17 21:48 78 16 97/69 94 Room Air 12/28/17 20:27 94 Room Air 12/28/17 20:21 91 16 101/63 94 Room Air 12/28/17 20:14 86 12/28/17 20:09 36.6 87 14 108/76 94 Room Air Physical Exam GENERAL: Patient is awake, alert, intoxicated appearing, but does not appear to be in distress. EYES: The conjunctivae are clear. The pupils are round and reactive. EARS, NOSE, MOUTH AND THROAT: The nose is without any evidence of any deformity. Mucous membranes are moist tongue is midline NECK: The neck is nontender and supple. RESPIRATORY: Normal respiratory effort is noted there is no evidence of wheezing rhonchi or rales CARDIOVASCULAR: Regular rate and rhythm noted there no murmurs rubs or gallops normal S1 normal S2 GASTROINTESTINAL: The abdomen is soft. Bowel sounds are present in all quadrants. Abdomen is nontender MUSCULOSKELETAL/EXTREMITIES: There is no evidence of gross deformity full range of motion is noted in the hips and shoulders SKIN: There is no obvious evidence of any rash. There are no petechiae, pallor or cyanosis noted. NEUROLOGIC: Patient is awake alert and oriented x3 strength is symmetric patellar reflexes are 2+ bilaterally PSYCH: Currently denying any suicidal or homicidal ideations. Medical Decision & Procedures ER Provider Diagnostic Interpretation: X-ray results as stated below per interpretation by me and the radiologist. CHEST ONE VIEW PORTABLE CLINICAL HISTORY: 52 years-old Male presenting with Overdose. TECHNIQUE: Portable upright AP view of the chest was obtained. COMPARISON: 12/22/2017. FINDINGS: The patient is KYRGYZ rotated. Allowing for this, cardiomediastinal silhouette normal. Pulmonary vasculature remains prominent, unchanged. No focal opacity. No large effusion or pneumothorax. Osseous structures normal. Upper abdomen normal. IMPRESSION: 1. No acute cardiopulmonary disease. Electronically signed by: Jonathan Hart M.D. 12/28/2017 8:52 PM Dictated Date/Time: 12/28/2017 8:51 PM Laboratory Results 12/28/17 20:14 Red Blood Count 4.18, Mean Corpuscular Volume 96.9, Mean Corpuscular Hemoglobin 35.4, Mean Corpuscular Hemoglobin Concent 36.5, Mean Platelet Volume 10.8, Neutrophils (%) (Auto) 45.4, Lymphocytes (%) (Auto) 37.3, Monocytes (%) (Auto) 12.0, Eosinophils (%) (Auto) 4.5, Basophils (%) (Auto) 0.5, Neutrophils # (Auto ) 3.54, Lymphocytes # (Auto) 2.90, Monocytes # (Auto) 0.93, Eosinophils # (Auto ) 0.35, Basophils # (Auto) 0.04 12/28/17 20:14 Test 12/28/17 20:14 12/28/17 20:35 White Blood Count 7.78 K/uL (4.8-10.8) Red Blood Count 4.18 M/uL (4.7-6.1) Hemoglobin 14.8 g/dL (14.0-18.0) Hematocrit 40.5 % (42-52) Mean Corpuscular Volume 96.9 fL (80-100) Mean Corpuscular Hemoglobin 35.4 pg (25-34) Mean Corpuscular Hemoglobin Concent 36.5 g/dl (32-36) Platelet Count 131 K/uL (130-400) Mean Platelet Volume 10.8 fL (7.4-10.4) Neutrophils (%) (Auto) 45.4 % Lymphocytes (%) (Auto) 37.3 % Monocytes (%) (Auto) 12.0 % Eosinophils (%) (Auto) 4.5 % Basophils (%) (Auto) 0.5 % Neutrophils # (Auto) 3.54 K/uL (1.4-6.5) Lymphocytes # (Auto) 2.90 K/uL (1.2-3.4) Monocytes # (Auto) 0.93 K/uL (0.11-0.59) Eosinophils # (Auto) 0.35 K/uL (0-0.5) Basophils # (Auto) 0.04 K/uL (0-0.2) RDW Standard Deviation 44.9 fL (36.4-46.3) RDW Coefficient of Variation 12.7 % (11.5-14.5) Immature Granulocyte % (Auto) 0.3 % Immature Granulocyte # (Auto) 0.02 K/uL (0.00-0.02) Prothrombin Time 11.4 SECONDS (9.0-12.0) Prothromb Time International Ratio 1.1 (0.9-1.1) Activated Partial Thromboplast Time 27.1 SECONDS (21.0-31.0) Partial Thromboplastin Ratio 1.0 Anion Gap 7.0 mmol/L (3-11) Est Creatinine Clear Calc Drug Dose 106.2 ml/min Estimated GFR () 124.9 Estimated GFR (Non- 107.7 BUN/Creatinine Ratio 6.5 (10-20) Osmolality 356 mOsm/kg (280-300) Calcium Level 8.0 mg/dl (8.5-10.1) Total Bilirubin 1.1 mg/dl (0.2-1) Direct Bilirubin 0.3 mg/dl (0-0.2) Aspartate Amino Transf (AST/SGOT) 40 U/L (15-37) Alanine Aminotransferase (ALT/SGPT) 24 U/L (12-78) Alkaline Phosphatase 103 U/L (45-117) Total Creatine Kinase 76 U/L (39-308) Creatine Kinase MB 1.1 ng/ml (0.5-3.6) Creatine Kinase MB Ratio 1.4 (0-3.0) Troponin I < 0.015 ng/ml (0-0.045) Total Protein 6.3 gm/dl (6.4-8.2) Albumin 2.3 gm/dl (3.4-5.0) Lipase 243 U/L (73-393) Salicylates Level < 1.7 mg/dl (2.8-20) Acetaminophen Level < 2 ug/ml (10-30) Ethyl Alcohol mg/dL 295.5 mg/dl (0-3) Urine Color YELLOW Urine Appearance CLEAR (CLEAR) Urine pH 6.5 (4.5-7.5) Urine Specific [place] 1.004 (1.000-1.030) Urine Protein NEG (NEG) Urine Glucose (UA) NEG (NEG) Urine Ketones NEG (NEG) Urine Occult Blood NEG (NEG) Urine Nitrite NEG (NEG) Urine Bilirubin NEG (NEG) Urine Urobilinogen NEG (NEG) Urine Leukocyte Esterase NEG (NEG) Urine Opiates Screen NEG (NEG) Urine Methadone, Qualitative NEG (NEG) Urine Barbiturates NEG (NEG) Urine Phencyclidine (PCP) Level NEG (NEG) Ur Amphetamine/Methamphetamine NEG (NEG) MDMA (Ecstasy) Screen NEG (NEG) Urine Benzodiazepines Screen NEG (NEG) Urine Cocaine Metabolite NEG (NEG) Urine Marijuana (THC) NEG (NEG) Laboratory results per my review. Medications Administered Medications (Trade) Dose Ordered Sig/Justin Route Start Time Stop Time Status Last Admin Dose Admin Sodium Chloride 1,000 ml @ 999 mls/hr Q1H1M STAT IV 12/28/17 20:22 12/28/17 21:22 DC 12/28/17 20:42 999 MLS/HR Thiamine HCl (Vitamin B-1 Inj) 100 mg NOW STAT IV 12/28/17 20:22 12/28/17 20:24 DC 12/28/17 20:42 100 MG Acetaminophen (Tylenol Tab) 1,000 mg NOW STAT PO 12/28/17 20:22 12/28/17 20:24 DC 12/28/17 20:42 1,000 MG Ondansetron HCl (Zofran Inj) 4 mg NOW STAT IV 12/28/17 20:24 12/28/17 20:25 DC 12/28/17 20:42 4 MG ECG Per My Interpretation Indication: other (alcohol intoxication) Rate (beats per minute): 83 Rhythm: normal sinus Findings: no ectopy, other (No PVCs, No acute ST segment abnormalities) Comparison ECG Date: 12/22/17 Change: no significant change ED Course 2020: The patient was evaluated in room B02. A complete history and physical examination were performed. 2021: Ordered Tylenol Tab 1000 mg PO, Thiamine HCl 1000 mg IV, Sodium Chloride 1000 ml @ 999 mls/hr IV. 2023: Ordered Zofran Injection 4 mg IV. 2206: The patient's calculated serum osmolality is 347-363. 0024: I reevaluated the patient and he would no longer like to be here for alcohol detox. He would like to go back to his regular therapy. I discussed the treatment plan with the patient. Medical Decision Prior records/ancillary studies reviewed. Triage Nursing notes reviewed. The patient's history was concerning for possible psychiatric disturbance. Differential diagnosis: Etiologies such as mood disorder, infection, hypoglycemia, electrolyte abnormalities, cardiac sources, intracerebral event, toxicologic, neurologic, as well as others were entertained. The patient is a 52-year-old male who presented to the emergency department for an evaluation of alcohol intoxication and requesting alcohol detox. The patient has had similar visits to our emergency department the past. He was found to be intoxicated upon arrival. He was reevaluated multiple times until he was no longer clinically intoxicated. He was evaluated by the mental health patient case coordinator. He was offered help with finding a detox program. When the patient was less intoxicated clinically he decided he no longer wished to be treated for inpatient detox. The patient was medically cleared. The patient was encouraged to continue all medications as prescribed. He was also encouraged to avoid any further alcoholic beverages. I also advised him to avoid operating any heavy machinery including driving a vehicle for the next 24 hours. He was also encouraged to call crisis or return to the emergency department immediately if symptoms change worsen or the need arises. Medication Reconcilliation Current Medication List: was personally reviewed by me Blood Pressure Screening Patient's blood pressure: Normal blood pressure Impression Primary Impression: Alcohol use with intoxication Scribe Attestation The scribe's documentation has been prepared under my direction and personally reviewed by me in its entirety. I confirm that the note above accurately reflects all work, treatment, procedures, and medical decision making performed by me. Departure Information Dispostion Home / Self-Care Referrals Darrius Cr M.D. (MEDICAL) (PCP) Forms HOME CARE DOCUMENTATION FORM, IMPORTANT VISIT INFORMATION Patient Instructions Alcohol Abuse - [facility], ED Alcohol Intoxication, My [facility] Additional Instructions Call your family doctor to schedule a follow-up appointment. Continue all medications as prescribed. Avoid any further alcoholic beverages. Do not operate any heavy machinery including driving a vehicle for the next 24 hours.
[2017-12-28 20:57] LABS: ALKALINE PHOSPHATASE 103 U/L (45-117); AST/SGOT 40 U/L (15-37); CKMB 1.1 ng/ml (0.5-3.6); TOTAL PROTEIN 6.3 gm/dl (6.4-8.2)
[2017-12-29 02:00] VITALS: BP 85/47; PULSE 77; O2SAT 96
== END 2017-12-29 02:26 | disposition home or self-care (01) ==
LOC: EDBD 20:01 → C.EDB 20:02
DX: F10.129 Alcohol abuse with intoxication, unspecified (principal); K70.30 Alcoholic cirrhosis of liver without ascites; J44.9 Chronic obstructive pulmonary disease, unspecified; Z82.49 Family history of ischemic heart disease and other diseases of the circulatory system; F17.200 Nicotine dependence, unspecified, uncomplicated; Z88.8 Allergy status to other drugs, medicaments and biological substances

== ENCOUNTER 2018-01-10 18:40 | Emergency (ER) | payer OTHER ==
[~2018-01-10] VITALS: Ht 165.1 cm; Wt 67.6 kg
[2018-01-10 18:59] VITALS: TEMP 36.6; Ht 165.1 cm; Wt 67.6 kg
[2018-01-10 19:46] VITALS: O2SAT 98
[2018-01-10 19:53] LABS: BASO % 0.6 %; BASO ABS # 0.05 K/uL (0-0.2); EOS % 3.5 %; EOS ABS # 0.29 K/uL (0-0.5); HEMATOCRIT 43.7 % (42-52); HEMOGLOBIN 16.2 g/dL (14.0-18.0); IG# 0.04 K/uL (0.00-0.02); LYMPH % 36.1 %; LYMPH ABS # 2.98 K/uL (1.2-3.4); MEAN CELL VOLUME 97.3 fL (80-100); MEAN CORPUSCULAR HEMOGLOBIN 36.1 pg (25-34); MEAN CORPUSCULAR HGB CONC 37.1 g/dl (32-36); MEAN PLATELET VOLUME 10.9 fL (7.4-10.4); MONO % 10.7 %; MONO ABS # 0.88 K/uL (0.11-0.59); NEUT % 48.6 %; NEUT ABS # 4.02 K/uL (1.4-6.5); PLATELET COUNT 143 K/uL (130-400); RED CELL DISTRIBUTION WIDTH CV 12.6 % (11.5-14.5); RED CELL DISTRIBUTION WIDTH SD 44.8 fL (36.4-46.3); WHITE BLOOD COUNT 8.26 K/uL (4.8-10.8)
[2018-01-10 20:14] LABS: ALBUMIN 2.6 gm/dl (3.4-5.0); CALCIUM 8.2 mg/dl (8.5-10.1); CREATININE 0.68 mg/dl (0.60-1.40); POTASSIUM 3.2 mmol/L (3.5-5.1)
--- NOTE | 2018-01-11 00:22 | EMERGENCY ROOM VISIT NOTE ---
History Report prepared by López: Hiren Dye Under the Supervision of: Dr. Zachary Lamb D.O. First contact with patient: 19:09 Chief Complaint: MENTAL HEALTH EVALUATION Stated Complaint: MENTAL HEALTH EVAL History of Present Illness The patient is a 52 year old male who presents to the Emergency Room with complaints of constant altered mental status that began prior to arrival. He rates his pain as 9/10. The patient states that he got into an argument with his friend over his drinking habit and acquiring more alcohol. He states that he is unemployed but not on SSI and states that he "finds the money" to buy alcohol. Per the geriatric case manager, he has suicidal ideation without a plan. He states that he wants to quit drinking alcohol and would like help to quit drinking. The patient reports he has been evaluated at He states that everyday, he drinks 15 beers and 3-32 oz cans. He has been admitted to [facility] before and is willing to go to [facility] for treatment. Source of History: patient, nursing staff History Limited By: AMS, intoxication Onset: [employer] HEL[employer] Symptom Intensity: pain rated as 9/10 Quality: other (altered mental status) Timing: constant Note: Patient reports suicidal ideation. Review of Systems See HPI for pertinent positives & negatives. A total of 10 systems reviewed and were otherwise negative. Past Medical & Surgical Medical Problems: (1) Alcohol dependence (2) Alcoholic cirrhosis of liver without ascites (3) Asthma, mild persistent (4) Chronic anxiety (5) Chronic pancreatitis (6) COPD, mild (7) Esophageal varices (8) Hypothyroidism (9) Paroxysmal atrial fibrillation (10) Portal vein thrombosis (11) Pulmonary HTN (12) Thrombocytopenia (13) Tobacco abuse Surgical Problems: (1) H/O colonoscopy (2) History of cholecystectomy (3) History of esophagogastroduodenoscopy (EGD) Family History Blood clots Diabetes mellitus MOTHER FH: CAD (coronary artery disease) FATHER BROTHER FH: leukemia AUNT Hypertension Social History Smoking Status: Current Every Day Smoker Alcohol Use: heavy Drug Use: none Marital Status: Housing Status: lives with family Occupation Status: unemployed Current/Historical Medications Scheduled Trazodone Hcl (Desyrel), 150 MG PO HS Allergies Coded Allergies: Fentanyl (Verified Allergy, Intermediate, RASH ALL OVER BODY, 01/10/18) ALL OVER BODY Physical Exam Vital Signs Date Time Temp Pulse Resp B/P (MAP) Pulse Ox O2 Delivery O2 Flow Rate FiO2 01/11/18 00:00 72 18 94/60 96 Room Air 01/10/18 22:33 74 01/10/18 22:11 72 22 95 Nasal Cannula 2.0 01/10/18 22:01 88/51 01/10/18 21:11 71 23 96 Nasal Cannula 2.0 01/10/18 21:06 74 22 96 Nasal Cannula 2.0 01/10/18 21:01 92/52 01/10/18 20:06 83 17 96 Nasal Cannula 2.0 01/10/18 20:01 101/70 01/10/18 19:46 98 Nasal Cannula 2.0 01/10/18 19:46 98 Nasal Cannula 2.0 01/10/18 19:40 80 20 96 Nasal Cannula 2.0 01/10/18 19:39 78 01/10/18 19:30 115/75 01/10/18 18:59 36.6 85 20 117/80 97 Room Air Physical Exam CONSTITUTIONAL/VITAL SIGNS: Reviewed / noted above. GENERAL: Non-toxic in appearance. INTEGUMENTARY: Warm, dry, and [place]. HEAD: Normocephalic. EYES: without scleral icterus or trauma. ENT/OROPHARYNX: clear and moist. LYMPHADENOPATHY/NECK: Is supple without lymphadenopathy or meningismus. RESPIRATORY: Lungs clear and equal. CARDIOVASCULAR: Regular rate and rhythm. GI/ABDOMEN: Soft and nontender. No organomegaly or pulsatile mass. No rebound or guarding. Normal bowel sounds. EXTREMITIES: Warm and well perfused. BACK: No CVA tenderness. NEUROLOGICAL: Intact without focal deficits. PSYCHIATRIC: Depressed. Suicidal ideation. MUSCULOSKELETAL: Normally developed with good muscle tone. Medical Decision & Procedures Laboratory Results 01/10/18 19:34 Red Blood Count 4.49, Mean Corpuscular Volume 97.3, Mean Corpuscular Hemoglobin 36.1, Mean Corpuscular Hemoglobin Concent 37.1, Mean Platelet Volume 10.9, Neutrophils (%) (Auto) 48.6, Lymphocytes (%) (Auto) 36.1, Monocytes (%) (Auto) 10.7, Eosinophils (%) (Auto) 3.5, Basophils (%) (Auto) 0.6, Neutrophils # (Auto ) 4.02, Lymphocytes # (Auto) 2.98, Monocytes # (Auto) 0.88, Eosinophils # (Auto ) 0.29, Basophils # (Auto) 0.05 01/10/18 19:34 Test 01/10/18 19:34 01/10/18 19:38 White Blood Count 8.26 K/uL (4.8-10.8) Red Blood Count 4.49 M/uL (4.7-6.1) Hemoglobin 16.2 g/dL (14.0-18.0) Hematocrit 43.7 % (42-52) Mean Corpuscular Volume 97.3 fL (80-100) Mean Corpuscular Hemoglobin 36.1 pg (25-34) Mean Corpuscular Hemoglobin Concent 37.1 g/dl (32-36) Platelet Count 143 K/uL (130-400) Mean Platelet Volume 10.9 fL (7.4-10.4) Neutrophils (%) (Auto) 48.6 % Lymphocytes (%) (Auto) 36.1 % Monocytes (%) (Auto) 10.7 % Eosinophils (%) (Auto) 3.5 % Basophils (%) (Auto) 0.6 % Neutrophils # (Auto) 4.02 K/uL (1.4-6.5) Lymphocytes # (Auto) 2.98 K/uL (1.2-3.4) Monocytes # (Auto) 0.88 K/uL (0.11-0.59) Eosinophils # (Auto) 0.29 K/uL (0-0.5) Basophils # (Auto) 0.05 K/uL (0-0.2) RDW Standard Deviation 44.8 fL (36.4-46.3) RDW Coefficient of Variation 12.6 % (11.5-14.5) Immature Granulocyte % (Auto) 0.5 % Immature Granulocyte # (Auto) 0.04 K/uL (0.00-0.02) Anion Gap 9.0 mmol/L (3-11) Est Creatinine Clear Calc Drug Dose 109.3 ml/min Estimated GFR () 126.4 Estimated GFR (Non- 109.0 BUN/Creatinine Ratio 5.7 (10-20) Calcium Level 8.2 mg/dl (8.5-10.1) Total Bilirubin 1.0 mg/dl (0.2-1) Aspartate Amino Transf (AST/SGOT) 45 U/L (15-37) Alanine Aminotransferase (ALT/SGPT) 25 U/L (12-78) Alkaline Phosphatase 110 U/L (45-117) Total Protein 7.0 gm/dl (6.4-8.2) Albumin 2.6 gm/dl (3.4-5.0) Globulin 4.4 gm/dl (2.5-4.0) Albumin/Globulin Ratio 0.6 (0.9-2) Thyroid Stimulating Hormone (TSH) 6.560 uIu/ml (0.300-4.500) Salicylates Level < 1.7 mg/dl (2.8-20) Acetaminophen Level < 2 ug/ml (10-30) Ethyl Alcohol mg/dL 263.1 mg/dl (0-3) Urine Opiates Screen NEG (NEG) Urine Methadone, Qualitative NEG (NEG) Urine Barbiturates NEG (NEG) Urine Phencyclidine (PCP) Level NEG (NEG) Ur Amphetamine/Methamphetamine NEG (NEG) MDMA (Ecstasy) Screen NEG (NEG) Urine Benzodiazepines Screen NEG (NEG) Urine Cocaine Metabolite NEG (NEG) Urine Marijuana (THC) NEG (NEG) Laboratory results as stated above per my review. ECG Per My Interpretation Indication: altered mental status Rate (beats per minute): 82 Rhythm: normal sinus Findings: no ectopy, other (No ST elevation) ED Course 1908: Previous medical records were reviewed. The patient was evaluated in room A7. A complete history and physical examination was performed. 0030: I checked on the patient. Due to his blood alcohol level, he will be ready for reassessment at 0400 this morning. The patient will be signed out to Dr. Reis. Medical Decision differential includes toxic ingestions, self-mutilation, suicidal ideation, suicide attempt, depression. This is a 52-year-old male who presents to the ED with a chief complaint of alcohol consumption and depression. The patient also reported feeling suicidal. He states that he typically drinks 15-12 ounce beers per day and 2-3 , 32 ounce beers. The patient reports today that he had an argument with his [id number]/friend because he bought the beer yesterday and his friend did not buy the beer today. For this reason, he started feeling suicidal. He also reports that he would like to stop using alcohol. He denies any other symptoms. No chest pains, shortness of breath, abdominal pains or vomiting. The patient's CBC and complete metabolic panel was unremarkable. TSH was slightly elevated. He is being treated for hypothyroidism. Alcohol level is 263. This was at 1930 hrs. He will be cleared for mental evaluation at 3 AM. Tox screen was otherwise negative. The patient was told the results. The patient was signed out to the night doc at 2 AM and will need further evaluation at 3 AM for his mental health issues and depression/suicidal ideation that was expressed while he was intoxicated. Signed out to Dr. reis. Medication Reconcilliation Current Medication List: was personally reviewed by me Blood Pressure Screening Patient's blood pressure: Normal blood pressure Blood pressure disposition: Did not require urgent referral Impression Primary Impression: Depression Additional Impression: Alcohol intoxication Scribe Attestation The scribe's documentation has been prepared under my direction and personally reviewed by me in its entirety. I confirm that the note above accurately reflects all work, treatment, procedures, and medical decision making performed by me. Departure Information Dispostion Still a Patient Referrals No Doctor, Assigned (PCP) Patient Instructions My [facility] Health Problem Qualifiers
--- NOTE | 2018-01-11 03:37 | EMERGENCY ROOM VISIT NOTE ---
ED Visit Note First contact with patient: 02:15 Pt signed out to me by Dr. Lamb. 0336: Pt now sober and seen by psych case management coordinator. Pt doesn't meet inpatient criteria and doesn't want inpatient psych treatment. Pt to be referred to [facility] as an outpt. No evidence of DT's/withdrawal at this time. Awaiting parents to pick him up. 0615: Pt now stating he will walk home. Discussed with case management coordinator. Bus token will be given.
[2018-01-11 06:21] VITALS: BP 113/68; PULSE 78; O2SAT 96
== END 2018-01-11 06:23 | disposition home or self-care (01) ==
LOC: C.EDB 18:41 → C.EDA 01-11 06:23
DX: F32.9 Major depressive disorder, single episode, unspecified (principal); F10.229 Alcohol dependence with intoxication, unspecified; Y90.8 Blood alcohol level of 240 mg/100 ml or more; R45.851 Suicidal ideations; K70.30 Alcoholic cirrhosis of liver without ascites; J45.30 Mild persistent asthma, uncomplicated; F41.9 Anxiety disorder, unspecified; E03.9 Hypothyroidism, unspecified; I85.10 Secondary esophageal varices without bleeding; I48.0 Paroxysmal atrial fibrillation; I27.20 Pulmonary hypertension, unspecified; F17.210 Nicotine dependence, cigarettes, uncomplicated; Z90.49 Acquired absence of other specified parts of digestive tract; Z83.3 Family history of diabetes mellitus; Z82.49 Family history of ischemic heart disease and other diseases of the circulatory system; Z80.6 Family history of leukemia; Z79.899 Other long term (current) drug therapy; Z88.8 Allergy status to other drugs, medicaments and biological substances

== ENCOUNTER 2018-01-18 19:17 | Emergency (ER) | payer OTHER ==
[~2018-01-18] VITALS: Ht 165.1 cm; Wt 68.0 kg
[2018-01-18 19:29] VITALS: TEMP 37.3; Ht 165.1 cm; Wt 68.0 kg
[2018-01-18] MEDS ORDERED: FAMOTIDINE 20MG/5ML IV PUSH IV STA (20:13)
[2018-01-18] MEDS ORDERED: SODIUM CHLORIDE 0.9% 500ML 500 ML IV STA (20:13)
--- NOTE | 2018-01-18 20:17 | EMERGENCY ROOM VISIT NOTE ---
History Report prepared by López: Rickie Smith Under the Supervision of: Dr. Andria Reis D.O. First contact with patient: 19:48 Chief Complaint: SHORTNESS OF BREATH Stated Complaint: SOB, CHEST PAIN Nursing Triage Summary: Patient feels like he is going to pass out. Complains of chest pain for 5-6 hours, shortness of breath, rash to bilateral arms. Non-compliant with medications. Chest pain radiates to back. Had green emesis this AM. History of Present Illness The patient is a 52 year old male who presents to the Emergency Room with complaints of constant SOB beginning this morning at 0600. The patient states that he is also experiencing chest pain and SOB, and notes that his chest pain started after his SOB began. He reports that his chest pain goes straight through to his back. The patient states that he has a history of a previous heart attack, and notes that his current symptoms feel similar. He also complains of a fever, nausea, vomiting, and diarrhea, but denies any melena and urinary symptoms. He notes that his symptoms worsen when he takes a deep breath but improve when he lies down. He reports that his symptoms do not feel like reflux. The patient states that he had a beer and a half about a half an hour ago. Source of History: patient Onset: this morning at 0600 Position: chest Quality: other (SOB) Timing: constant Modifying Factors (Worsening): breathing (deeply) Modifying Factors (Relieving): other (lying down) Associated Symptoms: + fevers, + chest pain, + nausea, + vomiting, + back pain, + diarrhea, No melena, No urinary symptoms Review of Systems See HPI for pertinent positives & negatives. A total of 10 systems reviewed and were otherwise negative. Past Medical & Surgical Medical Problems: (1) Alcohol dependence (2) Alcoholic cirrhosis of liver without ascites (3) Asthma, mild persistent (4) Chronic anxiety (5) Chronic pancreatitis (6) COPD, mild (7) Esophageal varices (8) Heart attack (9) Hypothyroidism (10) Paroxysmal atrial fibrillation (11) Portal vein thrombosis (12) Pulmonary HTN (13) Thrombocytopenia (14) Tobacco abuse Surgical Problems: (1) H/O colonoscopy (2) History of cholecystectomy (3) History of esophagogastroduodenoscopy (EGD) Family History Blood clots Diabetes mellitus MOTHER FH: CAD (coronary artery disease) FATHER BROTHER FH: leukemia AUNT Hypertension Social History Smoking Status: Current Every Day Smoker Alcohol Use: heavy Drug Use: none Marital Status: Housing Status: lives with family Occupation Status: disabled Current/Historical Medications Scheduled Trazodone Hcl (Desyrel), 150 MG PO HS Allergies Coded Allergies: Fentanyl (Verified Allergy, Intermediate, RASH ALL OVER BODY, 01/19/18) ALL OVER BODY Physical Exam Vital Signs Date Time Temp Pulse Resp B/P (MAP) Pulse Ox O2 Delivery O2 Flow Rate FiO2 01/18/18 23:05 107 18 129/89 94 01/18/18 20:30 106 14 115/73 96 Nasal Cannula 2.0 01/18/18 20:15 110 01/18/18 19:29 Nasal Cannula 2.0 01/18/18 19:29 37.3 112 26 139/83 96 Nasal Cannula 2.0 Physical Exam GENERAL: alert, disheveled appearing, well nourished, no distress, non-toxic, smells of tobacco smokes and alcohol, poor dentition. EYE EXAM: normal conjunctiva, PERRL and EOM's grossly intact OROPHARYNX: no exudate, no erythema, lips, buccal mucosa, and tongue normal and mucous membranes are dry. NECK: supple, no nuchal rigidity, no adenopathy, non-tender LUNGS: Clear to auscultation. Normal chest wall mechanics HEART: no murmurs, S1 normal and S2 normal ABDOMEN: abdomen soft, normo-active bowel sounds, no masses, no rebound or guarding, mild epigastric pain, no pulsatile mass. BACK: Back is symmetrical on inspection and there is no deformity, no midline tenderness, no CVA tenderness. SKIN: no rashes and no bruising UPPER EXTREMITIES: upper extremities are grossly normal. LOWER EXTREMITIES: No pitting edema. NEURO EXAM: Normal sensorium, cranial nerves II-XII grossly intact, normal speech, no gross weakness of arms, no gross weakness of legs. Medical Decision & Procedures ER Provider Diagnostic Interpretation: Radiology results have been interpreted by the radiologist and reviewed by me. CHEST ONE VIEW PORTABLE FINDINGS: Atherosclerosis of the aortic arch. Cardiac silhouette normal in size. Suggestion of a hazy right basilar opacity. No large effusion or pneumothorax. Osseous structures normal. Upper abdomen normal. IMPRESSION: 1. Suggestion of hazy right basilar opacity concerning for pneumonia. Further evaluation with PA and lateral views recommended to confirm this finding. Electronically signed by: Jonathan Hart M.D. 01/18/2018 8:36 PM Laboratory Results 01/18/18 20:39 Red Blood Count 4.49, Mean Corpuscular Volume 96.4, Mean Corpuscular Hemoglobin 35.2, Mean Corpuscular Hemoglobin Concent 36.5, Mean Platelet Volume 11.4, Neutrophils (%) (Auto) 73.7, Lymphocytes (%) (Auto) 19.9, Monocytes (%) (Auto) 3.8, Eosinophils (%) (Auto) 1.7, Basophils (%) (Auto) 0.6, Neutrophils # (Auto) 5.19, Lymphocytes # (Auto) 1.40, Monocytes # (Auto) 0.27, Eosinophils # (Auto) 0.12, Basophils # (Auto) 0.04 01/18/18 20:39 Test 01/18/18 20:30 01/18/18 20:39 Urine Opiates Screen NEG (NEG) Urine Methadone, Qualitative NEG (NEG) Urine Barbiturates NEG (NEG) Urine Phencyclidine (PCP) Level NEG (NEG) Ur Amphetamine/Methamphetamine NEG (NEG) MDMA (Ecstasy) Screen NEG (NEG) Urine Benzodiazepines Screen NEG (NEG) Urine Cocaine Metabolite NEG (NEG) Urine Marijuana (THC) NEG (NEG) White Blood Count 7.04 K/uL (4.8-10.8) Red Blood Count 4.49 M/uL (4.7-6.1) Hemoglobin 15.8 g/dL (14.0-18.0) Hematocrit 43.3 % (42-52) Mean Corpuscular Volume 96.4 fL (80-100) Mean Corpuscular Hemoglobin 35.2 pg (25-34) Mean Corpuscular Hemoglobin Concent 36.5 g/dl (32-36) Platelet Count 131 K/uL (130-400) Mean Platelet Volume 11.4 fL (7.4-10.4) Neutrophils (%) (Auto) 73.7 % Lymphocytes (%) (Auto) 19.9 % Monocytes (%) (Auto) 3.8 % Eosinophils (%) (Auto) 1.7 % Basophils (%) (Auto) 0.6 % Neutrophils # (Auto) 5.19 K/uL (1.4-6.5) Lymphocytes # (Auto) 1.40 K/uL (1.2-3.4) Monocytes # (Auto) 0.27 K/uL (0.11-0.59) Eosinophils # (Auto) 0.12 K/uL (0-0.5) Basophils # (Auto) 0.04 K/uL (0-0.2) RDW Standard Deviation 43.7 fL (36.4-46.3) RDW Coefficient of Variation 12.4 % (11.5-14.5) Immature Granulocyte % (Auto) 0.3 % Immature Granulocyte # (Auto) 0.02 K/uL (0.00-0.02) Prothrombin Time 12.4 SECONDS (9.0-12.0) Prothromb Time International Ratio 1.2 (0.9-1.1) Anion Gap 13.0 mmol/L (3-11) Est Creatinine Clear Calc Drug Dose 97.8 ml/min Estimated GFR () 120.7 Estimated GFR (Non- 104.2 BUN/Creatinine Ratio 5.0 (10-20) Calcium Level 7.5 mg/dl (8.5-10.1) Magnesium Level 1.6 mg/dl (1.8-2.4) Total Bilirubin 1.7 mg/dl (0.2-1) Aspartate Amino Transf (AST/SGOT) 41 U/L (15-37) Alanine Aminotransferase (ALT/SGPT) 20 U/L (12-78) Alkaline Phosphatase 101 U/L (45-117) Troponin I < 0.015 ng/ml (0-0.045) Pro-B-Type Natriuretic Peptide 34 pg/ml (0-900) Total Protein 6.4 gm/dl (6.4-8.2) Albumin 2.6 gm/dl (3.4-5.0) Globulin 3.8 gm/dl (2.5-4.0) Albumin/Globulin Ratio 0.7 (0.9-2) Lipase 176 U/L (73-393) Ethyl Alcohol mg/dL 229.4 mg/dl (0-3) Laboratory results per my review. Medications Administered Medications (Trade) Dose Ordered Sig/Jusitn Route Start Time Stop Time Status Last Admin Dose Admin Famotidine (Pepcid 20mg Iv Push) 20 mg ONE STAT IV 01/18/18 20:13 01/18/18 20:16 DC 01/18/18 20:24 20 MG Sodium Chloride 500 ml @ 999 mls/hr Q31M STAT IV 01/18/18 20:13 01/18/18 20:43 DC 01/18/18 20:24 999 MLS/HR Magnesium Oxide (Mag-Ox Tab) 400 mg NOW STAT PO 01/18/18 22:11 01/18/18 22:14 DC 01/18/18 22:30 400 MG Potassium Chloride (Klor-Con Tab) 40 meq NOW STAT PO 01/18/18 22:11 01/18/18 22:14 DC 01/18/18 22:30 40 MEQ Levofloxacin (Levaquin Tab) 750 mg ONE ONCE PO 01/18/18 22:15 01/18/18 22:16 DC 01/18/18 22:31 750 MG ECG Per My Interpretation Indication: SOB/dyspnea Rate (beats per minute): 106 Rhythm: sinus tachycardia Findings: no ectopy, other (Normal axis, normal intervals, nonspecific ST change in v3-v5) Comparison ECG Date: 07/14/2017 Change: Compared to prior, there is no change seen; however, the patient's previous EKG was not tachycardic. ED Course 1958: The patient was evaluated in room A4. A complete history and physical exam was performed. 2012: Sodium Chloride 500 ml @ 999 mls/hr IV, Famotidine 20mg IV 2210: Potassium Chloride 40meq PO, Magnesium Oxide 400mg PO 2214: Levofloxacin 750 mg PO 2211: I reevaluated and updated the patient. I discussed with him my concerns and additional treatments needed. He would like to sign out AMA. He is calling for a ride. 2238: I rechecked the patient. His ride is here and he still intends on leaving AMA. He is clinically sober and was made aware of my concerns. 2255: The patient left AMA. Medical Decision Differential diagnosis: Etiologies such as cardiac ischemia, aortic dissection, pulmonary embolism, pneumonia, pneumothorax, musculoskeletal, infections, pericarditis, myocarditis , esophageal rupture, gastrointestinal, as well as others were entertained. Patient well-known to the emergency department here frequently for various complaints but is frequently intoxicated and has a history of alcohol abuse. Patient here stating that he has worsening chest pain radiating in the back, however following labs and initial chest x-ray patient refused CTs. given patient's intralocular repletion and initiation of antibiotics for a possible pneumonia seen on chest x-ray, patient did stay long enough for us to order oral medications and take those. His ride did arrive at bedside and was sober and well-appearing and agreed to take responsibility for the patient. Given patient's comorbidities and description of pain, I did consider additional cardiac, pulmonary, vascular, GI pathology. Given the patient refused CTs were unable to definitively rule these out. Patient did have equal blood pressures in bilateral upper extremities equal pulses in bilateral upper and lower extremities, and so my suspicion for dissection was lower. Patient was encouraged to cut back on his alcohol consumption and was cautioned on the risks of long-term alcohol abuse as well as his continued tobacco abuse. Discussed with patient that by leaving AGAINST MEDICAL ADVICE and without additional treatment he is assuming responsibility for his own condition and any potential complications, he verbalized understanding of this. Medication Reconcilliation Current Medication List: was personally reviewed by me Blood Pressure Screening Patient's blood pressure: Normal blood pressure Blood pressure disposition: Did not require urgent referral Impression Primary Impression: Alcohol intoxication Additional Impressions: Alcohol dependence Chest pain Hypokalemia Hypomagnesemia Pneumonia Scribe Attestation The scribe's documentation has been prepared under my direction and personally reviewed by me in its entirety. I confirm that the note above accurately reflects all work, treatment, procedures, and medical decision making performed by me. Departure Information Dispostion Against Medical Advice Referrals No Doctor, Assigned (PCP) Forms HOME CARE DOCUMENTATION FORM, IMPORTANT VISIT INFORMATION Patient Instructions My [facility] Additional Instructions You are welcome to return to the emergency room at any time. Please consider decreasing your alcohol intake. Never drink and drive. Because of your significant medical history, chronic alcohol abuse, and new findings tonight of pneumonia, additional tests were ordered which you have refused. By leaving AGAINST MEDICAL ADVICE you are assuming responsibility for your condition and any potential worsening complications including permanent disability and . Your potassium level was low, your magnesium level was low, and you were found to have pneumonia. There are other potential causes of chest pain that we could not conclusively rule out as he refused additional testing. Please take the potassium and magnesium supplements, try to eat regularly and drink plenty of water, and take the antibiotic as prescribed. If you have any new or concerning symptoms including trouble breathing, fevers, worsening chest pain, coughing up blood, vomiting blood, dizziness, or other symptoms, please return to the ER immediately. Problem Qualifiers Primary Impression: Alcohol intoxication Complication of substance-induced condition: uncomplicated Qualified Codes: F10.920 - Alcohol use, unspecified with intoxication, uncomplicated Additional Impressions: Alcohol dependence Substance use status: with intoxication Complication of substance-induced condition: uncomplicated Qualified Codes: F10.220 - Alcohol dependence with intoxication, uncomplicated Chest pain Chest pain type: unspecified Qualified Codes: R07.9 - Chest pain, unspecified Pneumonia Pneumonia type: due to unspecified organism Laterality: right Lung location : middle lobe of lung Qualified Codes: J18.1 - Lobar pneumonia, unspecified organism
[2018-01-18] MEDS ORDERED: OPTIRAY 320 IV PRN (20:30)
--- NOTE | 2018-01-18 20:37 | DIAGNOSTIC IMAGING REPORT ---
CHEST ONE VIEW PORTABLE CLINICAL HISTORY: 52 years-old Male presenting with chest pain. TECHNIQUE: Portable upright AP view of the chest was obtained. COMPARISON: 12/28/2017. FINDINGS: Atherosclerosis of the aortic arch. Cardiac silhouette normal in size. Suggestion of a hazy right basilar opacity. No large effusion or pneumothorax. Osseous structures normal. Upper abdomen normal. IMPRESSION: 1. Suggestion of hazy right basilar opacity concerning for pneumonia. Further evaluation with PA and lateral views recommended to confirm this finding. Electronically signed by: Jonathan Hart M.D. 01/18/2018 8:36 PM Dictated Date/Time: 01/18/2018 8:35 PM
[2018-01-18 21:21] LABS: BASO % 0.6 %; BASO ABS # 0.04 K/uL (0-0.2); EOS % 1.7 %; EOS ABS # 0.12 K/uL (0-0.5); HEMATOCRIT 43.3 % (42-52); HEMOGLOBIN 15.8 g/dL (14.0-18.0); IG# 0.02 K/uL (0.00-0.02); LYMPH % 19.9 %; MEAN CELL VOLUME 96.4 fL (80-100); MEAN CORPUSCULAR HEMOGLOBIN 35.2 pg (25-34); MEAN CORPUSCULAR HGB CONC 36.5 g/dl (32-36); MEAN PLATELET VOLUME 11.4 fL (7.4-10.4); MONO % 3.8 %; MONO ABS # 0.27 K/uL (0.11-0.59); NEUT % 73.7 %; NEUT ABS # 5.19 K/uL (1.4-6.5); PLATELET COUNT 131 K/uL (130-400); RED CELL DISTRIBUTION WIDTH CV 12.4 % (11.5-14.5); RED CELL DISTRIBUTION WIDTH SD 43.7 fL (36.4-46.3); WHITE BLOOD COUNT 7.04 K/uL (4.8-10.8)
[2018-01-18 21:31] LABS: INR 1.2 (0.9-1.1)
[2018-01-18 21:36] LABS: ALBUMIN 2.6 gm/dl (3.4-5.0); ALT/SGPT 20 U/L (12-78); BLOOD UREA NITROGEN 4 mg/dl (7-18); CALCIUM 7.5 mg/dl (8.5-10.1); CARBON DIOXIDE 17 mmol/L (21-32); CREATININE 0.76 mg/dl (0.60-1.40); GLUCOSE 99 mg/dl (70-99); LIPASE 176 U/L (73-393); POTASSIUM 2.9 mmol/L (3.5-5.1); SODIUM 139 mmol/L (136-145)
[2018-01-18 21:41] LABS: ALKALINE PHOSPHATASE 101 U/L (45-117); AST/SGOT 41 U/L (15-37); TOTAL PROTEIN 6.4 gm/dl (6.4-8.2)
[2018-01-18] MEDS ORDERED: POTASSIUM CHLORIDE 20 MEQ TABCR PO STA (22:11)
[2018-01-18] MEDS ORDERED: MAGNESIUM OXIDE 400 MG TAB PO STA (22:11)
[2018-01-18] MEDS ORDERED: LEVOFLOXACIN 750 MG TAB PO ONE (22:15)
[2018-01-18] MEDS ORDERED: MAGN1TAB19 PO (22:49)
[2018-01-18] MEDS ORDERED: POTA20TA13 PO (22:49)
[2018-01-18] MEDS ORDERED: LEVO1TAB35 PO (22:49)
[2018-01-18 23:05] VITALS: BP 129/89; PULSE 107; O2SAT 94
== END 2018-01-18 23:05 | disposition left against medical advice (07) ==
LOC: C.EDA 19:17
DX: F10.920 Alcohol use, unspecified with intoxication, uncomplicated (principal); F10.220 Alcohol dependence with intoxication, uncomplicated; R07.9 Chest pain, unspecified; E87.6 Hypokalemia; E83.42 Hypomagnesemia; J18.1 Lobar pneumonia, unspecified organism; J45.909 Unspecified asthma, uncomplicated; J44.9 Chronic obstructive pulmonary disease, unspecified; E03.9 Hypothyroidism, unspecified; I48.91 Unspecified atrial fibrillation; I10 Essential (primary) hypertension; F17.200 Nicotine dependence, unspecified, uncomplicated; Z88.8 Allergy status to other drugs, medicaments and biological substances

== ENCOUNTER 2018-01-19 15:53 | Emergency (ER) | payer OTHER ==
[~2018-01-19] VITALS: Ht 172.7 cm; Wt 75.3 kg
[~2018-01-19 15:53] MED LIST changes: +LEVO1TAB35 PO; +MAGN1TAB19 PO; +POTA20TA13 PO
[2018-01-19 16:07] VITALS: TEMP 37; Ht 172.7 cm; Wt 75.3 kg
[2018-01-19] MEDS ORDERED: SODIUM CHLORIDE 0.9% 1000ML 1,000 ML IV STA ×3 (16:11→20:50)
[2018-01-19] MEDS ORDERED: PANTOprazole INJ 40 MG in SYRINGE 0 ML IV ONE (16:15)
[2018-01-19] MEDS ORDERED: OPTIRAY 320 IV PRN (16:45)
[2018-01-19 17:08] LABS: BASO % 0.1 %; BASO ABS # 0.01 K/uL (0-0.2); HEMATOCRIT 45.2 % (42-52); HEMOGLOBIN 16.4 g/dL (14.0-18.0); IG# 0.04 K/uL (0.00-0.02); LYMPH % 17.2 %; MEAN CELL VOLUME 97.4 fL (80-100); MEAN CORPUSCULAR HEMOGLOBIN 35.3 pg (25-34); MEAN CORPUSCULAR HGB CONC 36.3 g/dl (32-36); MEAN PLATELET VOLUME 11.2 fL (7.4-10.4); MONO % 11.2 %; MONO ABS # 1.56 K/uL (0.11-0.59); NEUT % 71.2 %; NEUT ABS # 9.94 K/uL (1.4-6.5); PLATELET COUNT 136 K/uL (130-400); RED CELL DISTRIBUTION WIDTH CV 12.6 % (11.5-14.5); RED CELL DISTRIBUTION WIDTH SD 44.9 fL (36.4-46.3); WHITE BLOOD COUNT 13.95 K/uL (4.8-10.8)
[2018-01-19 17:19] LABS: INR 1.2 (0.9-1.1)
[2018-01-19 17:32] LABS: ALBUMIN 2.9 gm/dl (3.4-5.0); ALT/SGPT 27 U/L (12-78); AST/SGOT 50 U/L (15-37); BLOOD UREA NITROGEN 6 mg/dl (7-18); CALCIUM 8.2 mg/dl (8.5-10.1); CARBON DIOXIDE 21 mmol/L (21-32); GLUCOSE 99 mg/dl (70-99); LIPASE 136 U/L (73-393); POTASSIUM 3.3 mmol/L (3.5-5.1); SODIUM 140 mmol/L (136-145)
[2018-01-19 17:39] LABS: ALKALINE PHOSPHATASE 104 U/L (45-117); PHOSPHORUS 2.5 mg/dl (2.5-4.9)
[2018-01-19] MEDS: ALUMINUM/MAGNESIUM SUSP 30 ML UDC PO STA ×2 (18:48→20:00)
--- NOTE | 2018-01-19 19:13 | DIAGNOSTIC IMAGING REPORT ---
ADDENDUM There are groundglass densities within the right middle lobe and left lower lobe as described above. These were not present on the prior study and favor mild inflammatory/infectious change. However, [address] follow is recommended to ensure resolution and to exclude the less likely possibility of a low-grade neoplasm. Electronically signed by: Villa Clinton M.D. 01/19/2018 7:15 PM Dictated Date/Time: 01/19/2018 7:14 PM ORIGINAL REPORT CHEST, ABDOMEN, AND PELVIS CTA for AORTIC DISSECTION CT DOSE: HISTORY: Atypical chest pain. TECHNIQUE: Multiaxial CT images of the chest, abdomen, and pelvis were performed both before and after the intravenous administration of contrast to evaluate the aorta. Maximal intensity projection images were also obtained. A dose lowering technique was utilized adhering to the principles of ALARA. COMPARISON STUDY: Abdomen and pelvis CT 12/20/2017. Chest CTA 09/15/2017. FINDINGS: Noncontrast imaging shows no evidence for an intramural hematoma within the aorta. Stable mild anterior wedging at T11. Multinodular thyroid goiter is again noted. This results in mild right tracheal deviation. The heart is normal in size. No pleural or pericardial effusions. The pulmonary arteries appear patent. Normal caliber aorta with no evidence for dissection. Mild bilateral gynecomastia. Subcentimeter mediastinal lymph nodes do not meet CT criteria for pathologic involvement. No hilar lymphadenopathy. No pneumothorax. Mild emphysema. There is a 1 cm groundglass density within the right middle lobe on image 173. There is also a 2.2 x 1.1 cm groundglass density within the left lower lobe posteriorly on image 134. Cholecystectomy. Cirrhotic liver with upper abdominal varices are again noted. The spleen and adrenal glands are unremarkable. Suspect pancreas divisum. The abdominal aorta and iliac arteries are normal in caliber and show no significant stenosis. The celiac, mesenteric, and renal arteries are patent. The kidneys enhance normally. No hydronephrosis. The bladder is unremarkable. No pneumoperitoneum. No pneumatosis. Old left pubic ring fractures. No retroperitoneal lymphadenopathy. No pelvic free fluid. No bowel wall thickening or obstruction. Colonic diverticulosis. Normal appendix. IMPRESSION: 1. Normal caliber thoracic aorta with no evidence for dissection. 2. No evidence for pulmonary embolus. 3. Cirrhotic liver with upper abdominal varices are again noted. 4. Emphysema. 5. Additional findings as described above Electronically signed by: Villa Clinton M.D. 01/19/2018 7:12 PM Dictated Date/Time: 01/19/2018 6:58 PM
--- NOTE | 2018-01-19 19:17 | DIAGNOSTIC IMAGING REPORT ---
CHEST, ABDOMEN, AND PELVIS CTA for AORTIC DISSECTION CT DOSE: HISTORY: Atypical chest pain. TECHNIQUE: Multiaxial CT images of the chest, abdomen, and pelvis were performed both before and after the intravenous administration of contrast to evaluate the aorta. Maximal intensity projection images were also obtained. A dose lowering technique was utilized adhering to the principles of ALARA. COMPARISON STUDY: Abdomen and pelvis CT 12/20/2017. Chest CTA 09/15/2017. FINDINGS: Noncontrast imaging shows no evidence for an intramural hematoma within the aorta. Stable mild anterior wedging at T11. Multinodular thyroid goiter is again noted. This results in mild right tracheal deviation. The heart is normal in size. No pleural or pericardial effusions. The pulmonary arteries appear patent. Normal caliber aorta with no evidence for dissection. Mild bilateral gynecomastia. Subcentimeter mediastinal lymph nodes do not meet CT criteria for pathologic involvement. No hilar lymphadenopathy. No pneumothorax. Mild emphysema. There is a 1 cm groundglass density within the right middle lobe on image 173. There is also a 2.2 x 1.1 cm groundglass density within the left lower lobe posteriorly on image 134. Cholecystectomy. Cirrhotic liver with upper abdominal varices are again noted. The spleen and adrenal glands are unremarkable. Suspect pancreas divisum. The abdominal aorta and iliac arteries are normal in caliber and show no significant stenosis. The celiac, mesenteric, and renal arteries are patent. The kidneys enhance normally. No hydronephrosis. The bladder is unremarkable. No pneumoperitoneum. No pneumatosis. Old left pubic ring fractures. No retroperitoneal lymphadenopathy. No pelvic free fluid. No bowel wall thickening or obstruction. Colonic diverticulosis. Normal appendix. IMPRESSION: 1. Normal caliber thoracic aorta with no evidence for dissection. 2. No evidence for pulmonary embolus. 3. Cirrhotic liver with upper abdominal varices are again noted. 4. Emphysema. 5. Groundglass densities within the right middle lobe and left lower lobe requires 3 month follow-up to ensure resolution. Electronically signed by: Villa Clinton M.D. 01/19/2018 7:15 PM Dictated Date/Time: 01/19/2018 7:15 PM
[2018-01-19] MEDS ORDERED: LEVAQUIN 750MG / 150ML D5W IV STA (19:48)
--- NOTE | 2018-01-19 22:38 | EMERGENCY ROOM VISIT NOTE ---
History Report prepared by López: Fatmata Power Under the Supervision of: Dr. Andria Reis D.O. First contact with patient: 15:59 Chief Complaint: CHEST PAIN Stated Complaint: CHEST PAIN History of Present Illness The patient is a 52 year old male who presents to the Emergency Room with complaints of persistent chest pain starting yesterday. The pain goes into his back. He was seen in the ED yesterday for the same symptoms. He was intoxicated on presentation. He was diagnosed with pneumonia. The patient left AMA before evaluation could be completed. He is continuing to have the chest pain today. He presents to the ED by EMS. He vomited in route. He also reports SOB. He has had a fever today. He had diarrhea several times this morning. He has noticed some blood when he coughs. His urine was orange today. He is unsure if there was any blood in his urine. He has a history of hemorrhoids and notes some blood in his stool at times. Source of History: patient Onset: yesterday Position: chest Quality: other (pain) Timing: other (persistent) Associated Symptoms: + fevers, + cough, + SOB, + vomiting, + back pain, + diarrhea, + urinary symptoms Review of Systems See HPI for pertinent positives & negatives. A total of 10 systems reviewed and were otherwise negative. Past Medical & Surgical Medical Problems: (1) Alcohol dependence (2) Alcoholic cirrhosis of liver without ascites (3) Asthma, mild persistent (4) Chronic anxiety (5) Chronic pancreatitis (6) COPD, mild (7) Esophageal varices (8) Heart attack (9) Hypothyroidism (10) Paroxysmal atrial fibrillation (11) Portal vein thrombosis (12) Pulmonary HTN (13) Thrombocytopenia (14) Tobacco abuse Surgical Problems: (1) H/O colonoscopy (2) History of cholecystectomy (3) History of esophagogastroduodenoscopy (EGD) Family History Blood clots Diabetes mellitus MOTHER FH: CAD (coronary artery disease) FATHER BROTHER FH: leukemia AUNT Hypertension Social History Smoking Status: Current Every Day Smoker Alcohol Use: heavy Drug Use: none Marital Status: Occupation Status: disabled Current/Historical Medications Scheduled Trazodone Hcl (Desyrel), 150 MG PO HS Allergies Coded Allergies: Fentanyl (Verified Allergy, Intermediate, RASH ALL OVER BODY, 01/19/18) ALL OVER BODY Physical Exam Vital Signs Date Time Temp Pulse Resp B/P (MAP) Pulse Ox O2 Delivery O2 Flow Rate FiO2 01/19/18 23:25 92 18 116/79 96 109/76 111/72 01/19/18 22:42 86 14 95/45 95 Room Air 01/19/18 21:14 84 16 89/56 96 Nasal Cannula 2.0 01/19/18 20:15 90 01/19/18 20:01 91 18 83/45 97 Nasal Cannula 2.0 01/19/18 18:29 90 18 140/84 96 Room Air 01/19/18 17:55 95 20 93/55 97 Room Air 01/19/18 16:13 100 01/19/18 16:07 97 Room Air 01/19/18 16:07 37.0 100 20 123/88 98 Room Air Physical Exam GENERAL: disheveled, smells of alcohol, smells of tobacco smoke, no distress, non-toxic EYE EXAM: normal conjunctiva, PERRL and EOM's grossly intact OROPHARYNX: poor dentition, no exudate, no erythema, lips, buccal mucosa, and tongue normal and mucous membranes are moist NECK: supple, no nuchal rigidity, no adenopathy, non-tender LUNGS: Decreased breath sounds bilaterally. No wheezes, rhonchi, rales. Normal chest wall mechanics HEART: no murmurs, S1 normal and S2 normal ABDOMEN: abdomen soft, epigastric tenderness, normo-active bowel sounds, no masses, no rebound or guarding. BACK: Back is symmetrical on inspection and there is no deformity, no midline tenderness, no CVA tenderness. SKIN: no rashes and no bruising UPPER EXTREMITIES: upper extremities are grossly normal. LOWER EXTREMITIES: No pitting edema. NEURO EXAM: Normal sensorium, cranial nerves II-XII grossly intact, normal speech, no gross weakness of arms, no gross weakness of legs. Medical Decision & Procedures ER Provider Diagnostic Interpretation: Radiology results have been interpreted by the radiologist and reviewed by me. CHEST, ABDOMEN, AND PELVIS CTA for AORTIC DISSECTION CT DOSE: HISTORY: Atypical chest pain. TECHNIQUE: Multiaxial CT images of the chest, abdomen, and pelvis were performed both before and after the intravenous administration of contrast to evaluate the aorta. Maximal intensity projection images were also obtained. A dose lowering technique was utilized adhering to the principles of ALARA. COMPARISON STUDY: Abdomen and pelvis CT 12/20/2017. Chest CTA 09/15/2017. FINDINGS: Noncontrast imaging shows no evidence for an intramural hematoma within the aorta. Stable mild anterior wedging at T11. Multinodular thyroid goiter is again noted. This results in mild right tracheal deviation. The heart is normal in size. No pleural or pericardial effusions. The pulmonary arteries appear patent. Normal caliber aorta with no evidence for dissection. Mild bilateral gynecomastia. Subcentimeter mediastinal lymph nodes do not meet CT criteria for pathologic involvement. No hilar lymphadenopathy. No pneumothorax. Mild emphysema. There is a 1 cm groundglass density within the right middle lobe on image 173. There is also a 2.2 x 1.1 cm groundglass density within the left lower lobe posteriorly on image 134. Cholecystectomy. Cirrhotic liver with upper abdominal varices are again noted. The spleen and adrenal glands are unremarkable. Suspect pancreas divisum. The abdominal aorta and iliac arteries are normal in caliber and show no significant stenosis. The celiac, mesenteric, and renal arteries are patent. The kidneys enhance normally. No hydronephrosis. The bladder is unremarkable. No pneumoperitoneum. No pneumatosis. Old left pubic ring fractures. No retroperitoneal lymphadenopathy. No pelvic free fluid. No bowel wall thickening or obstruction. Colonic diverticulosis. Normal appendix. IMPRESSION: 1. Normal caliber thoracic aorta with no evidence for dissection. 2. No evidence for pulmonary embolus. 3. Cirrhotic liver with upper abdominal varices are again noted. 4. Emphysema. 5. Groundglass densities within the right middle lobe and left lower lobe requires 3 month follow-up to ensure resolution. Electronically signed by: Villa Clinton M.D. 01/19/2018 7:15 PM Dictated Date/Time: 01/19/2018 7:15 PM Laboratory Results 01/19/18 16:32 Red Blood Count 4.64, Mean Corpuscular Volume 97.4, Mean Corpuscular Hemoglobin 35.3, Mean Corpuscular Hemoglobin Concent 36.3, Mean Platelet Volume 11.2, Neutrophils (%) (Auto) 71.2, Lymphocytes (%) (Auto) 17.2, Monocytes (%) (Auto) 11.2, Eosinophils (%) (Auto) 0.0, Basophils (%) (Auto) 0.1, Neutrophils # (Auto ) 9.94, Lymphocytes # (Auto) 2.40, Monocytes # (Auto) 1.56, Eosinophils # (Auto ) 0.00, Basophils # (Auto) 0.01 01/19/18 16:32 Test 01/19/18 16:32 01/19/18 16:35 White Blood Count 13.95 K/uL (4.8-10.8) Red Blood Count 4.64 M/uL (4.7-6.1) Hemoglobin 16.4 g/dL (14.0-18.0) Hematocrit 45.2 % (42-52) Mean Corpuscular Volume 97.4 fL (80-100) Mean Corpuscular Hemoglobin 35.3 pg (25-34) Mean Corpuscular Hemoglobin Concent 36.3 g/dl (32-36) Platelet Count 136 K/uL (130-400) Mean Platelet Volume 11.2 fL (7.4-10.4) Neutrophils (%) (Auto) 71.2 % Lymphocytes (%) (Auto) 17.2 % Monocytes (%) (Auto) 11.2 % Eosinophils (%) (Auto) 0.0 % Basophils (%) (Auto) 0.1 % Neutrophils # (Auto) 9.94 K/uL (1.4-6.5) Lymphocytes # (Auto) 2.40 K/uL (1.2-3.4) Monocytes # (Auto) 1.56 K/uL (0.11-0.59) Eosinophils # (Auto) 0.00 K/uL (0-0.5) Basophils # (Auto) 0.01 K/uL (0-0.2) RDW Standard Deviation 44.9 fL (36.4-46.3) RDW Coefficient of Variation 12.6 % (11.5-14.5) Immature Granulocyte % (Auto) 0.3 % Immature Granulocyte # (Auto) 0.04 K/uL (0.00-0.02) Prothrombin Time 12.7 SECONDS (9.0-12.0) Prothromb Time International Ratio 1.2 (0.9-1.1) Anion Gap 12.0 mmol/L (3-11) Est Creatinine Clear Calc Drug Dose 103.3 ml/min Estimated GFR () 118.2 Estimated GFR (Non- 102.0 BUN/Creatinine Ratio 6.9 (10-20) Calcium Level 8.2 mg/dl (8.5-10.1) Phosphorus Level 2.5 mg/dl (2.5-4.9) Magnesium Level 1.9 mg/dl (1.8-2.4) Total Bilirubin 1.2 mg/dl (0.2-1) Aspartate Amino Transf (AST/SGOT) 50 U/L (15-37) Alanine Aminotransferase (ALT/SGPT) 27 U/L (12-78) Alkaline Phosphatase 104 U/L (45-117) Troponin I < 0.015 ng/ml (0-0.045) Total Protein 7.0 gm/dl (6.4-8.2) Albumin 2.9 gm/dl (3.4-5.0) Globulin 4.1 gm/dl (2.5-4.0) Albumin/Globulin Ratio 0.7 (0.9-2) Lipase 136 U/L (73-393) Ethyl Alcohol mg/dL 286.0 mg/dl (0-3) Urine Opiates Screen NEG (NEG) Urine Methadone, Qualitative NEG (NEG) Urine Barbiturates NEG (NEG) Urine Phencyclidine (PCP) Level NEG (NEG) Ur Amphetamine/Methamphetamine NEG (NEG) MDMA (Ecstasy) Screen NEG (NEG) Urine Benzodiazepines Screen NEG (NEG) Urine Cocaine Metabolite NEG (NEG) Urine Marijuana (THC) NEG (NEG) Laboratory results per my review. Medications Administered Medications (Trade) Dose Ordered Sig/Justin Route Start Time Stop Time Status Last Admin Dose Admin Sodium Chloride 1,000 ml @ 999 mls/hr Q1H1M STAT IV 01/19/18 16:11 01/19/18 17:11 DC 01/19/18 16:57 999 MLS/HR Pantoprazole Sodium 40 mg/ Syringe 10 ml @ 5 mls/min NOW ONCE IV 01/19/18 16:15 01/19/18 16:16 DC 01/19/18 16:58 5 MLS/MIN Al Hydroxide/Mg Hydroxide (Maalox Susp) 30 ml NOW STAT PO 01/19/18 18:48 01/19/18 18:50 DC 01/19/18 20:00 30 ML Levofloxacin (Levaquin / D5W) 750 mg NOW STAT IV 01/19/18 19:48 01/19/18 19:49 DC 01/19/18 19:54 750 MG Sodium Chloride 1,000 ml @ 999 mls/hr Q1H1M STAT IV 01/19/18 20:09 01/19/18 21:09 DC 01/19/18 20:09 999 MLS/HR Sodium Chloride 1,000 ml @ 999 mls/hr Q1H1M STAT IV 01/19/18 20:50 01/19/18 21:50 DC 01/19/18 21:13 999 MLS/HR Potassium Chloride (Klor-Con M10) 40 meq NOW STAT PO 01/19/18 23:13 01/19/18 23:14 DC 01/19/18 23:24 40 MEQ Albuterol (Ventolin Hfa Inhaler) 2 puffs NOW ONCE INH 01/20/18 00:00 01/20/18 00:01 DC 01/20/18 00:00 2 PUFFS ECG Per My Interpretation Indication: chest pain Rate (beats per minute): 98 Rhythm: sinus rhythm Findings: no acute ischemic change, no ectopy, other (normal axis, normal intervals, baseline artifact noted) ED Course 1602: The patient was evaluated in room C5. A complete history and physical exam was performed. 1611: Sodium Chloride 1000 ml @ 999 mls/hr IV. 1615: Pantoprazole Sodium 40 mg/Syringe 10 ml @ 5 mls/min IV. 1652: I reevaluated the patient. 1848: Maalox Susp 30 ml PO. 1948: Levofloxacin 750 mg IV. 2008: Sodium Chloride 1000 ml @ 999 mls/hr IV. 0: Sodium Chloride 1000 ml @ 999 mls/hr IV. 6: I reevaluated the patient. He was asleep. He reports he still has pain. 2230: I reevaluated the patient. He is awake and alert. His blood pressure is improved. Oxygen was turned off and patient stayed at 95. 2313: Potassium Chloride 40 meq PO. 2350: Upon reevaluation, the patient is feeling better. I discussed the findings and the treatment plan with the patient. He verbalizes agreement and understanding. He was discharged home. 0000: Albuterol 2 puffs INH. Medical Decision Differential diagnoses includes but is not limited to gastritis, peptic ulcer disease, GERD, gallbladder disease, pancreatitis, small bowel obstruction, ischemic bowel, irritable bowel disease, irritable bowel syndrome, appendicitis , diverticulitis, malignancy, hernia, urinary tract infection, torsion, perforation, trauma, infectious, acute coronary syndrome, myocardial infarction , pericarditis, pulmonary embolus, aortic dissection, pneumonia, pneumothorax, musculoskeletal, shingles, esophageal. Patient is well-known to the emergency room and here frequently with symptoms confounded by chronic alcohol abuse and intoxication. Patient here with improved labs compared to yesterday regarding his potassium and magnesium levels. Troponin still negative and so given persistence of symptoms with subsequent negative troponin I do not suspect ACS. EKG otherwise unremarkable. CAT scans completed today did not show any other new vascular pathology, findings consistent with possible pneumonia still present patient given his dose of antibiotics today while here. Patient with a history of noncompliance, he was cautioned against not completing his course of antibiotics as previously written and prescription given to him yesterday given his risk factors. I do not suspect aspiration pneumonia. Patient does smoke however and is at risk for other respiratory compromise. Patient not hypoxic here, ambulate without any increased work of breathing, was given an MDI and spacer at time of discharge. Patient hemodynamically stable, isolated low blood pressures were seen, however patient was laying in the lateral, position when these were obtained. He was given additional IV fluids as a precaution given likely poor p.o. intake other than his usual alcohol consumption which he again admitted to prior to his arrival here and he was found to again be intoxicated. Patient had no apparent distress, was covered for possible gastritis given his history of alcohol abuse. I encouraged patient to begin cutting back on his alcohol consumption as well as considering quitting smoking and discussed at length with him the potential long-term complications, his known physical complications already given his alcohol abuse and potential increased risk for serious morbidity and mortality. Patient was monitored here to sobriety and was discharged. Patient verbalized understanding of all results, risks if he continues this pattern of behavior, encouraged to continue his antibiotics as well as electrolyte repletion zones were given to him and prescriptions yesterday. Patient stated he did not need new prescriptions again. Patient instructed on how to use his MDI and spacer at bedside. Discussed symptoms to watch and return for, he verbalized understanding was agreeable with plan. Patient well-appearing at discharge, no apparent respiratory distress, no evidence of alcohol withdrawal, comfortable with plan and anxious to leave. Medication Reconcilliation Current Medication List: was personally reviewed by me Blood Pressure Screening Patient's blood pressure: Normal blood pressure Blood pressure disposition: Did not require urgent referral Impression Primary Impression: Chest pain Additional Impressions: Alcohol abuse Alcohol intoxication Pneumonia Scribe Attestation The scribe's documentation has been prepared under my direction and personally reviewed by me in its entirety. I confirm that the note above accurately reflects all work, treatment, procedures, and medical decision making performed by me. Departure Information Dispostion Home / Self-Care Referrals No Doctor, Assigned (PCP) Patient Instructions My [facility] Additional Instructions Please consider cutting back on your alcohol use. Please take your antibiotics , magnesium and potassium pills as prescribed. Please follow-up with your family doctor to recheck your electrolytes and repeat a chest xray to make sure your pneumonia has cleared. If you have any recurrent pain, develop trouble breathing, increased cough, diarrhea, or you have any other new or concerning symptoms, please return to the emergency room. Problem Qualifiers Primary Impression: Chest pain Chest pain type: unspecified Qualified Codes: R07.9 - Chest pain, unspecified Additional Impressions: Alcohol intoxication Complication of substance-induced condition: uncomplicated Qualified Codes: F10.920 - Alcohol use, unspecified with intoxication, uncomplicated Pneumonia Pneumonia type: due to unspecified organism Laterality: right Lung location : lower lobe of lung Qualified Codes: J18.1 - Lobar pneumonia, unspecified organism
[2018-01-19] MEDS ORDERED: POTASSIUM CHLORIDE 10 MEQ TABCR PO STA (23:13)
[2018-01-19 23:25] VITALS: BP 111/72; PULSE 92; O2SAT 96
[2018-01-20] MEDS ORDERED: ALBUTEROL HFA 8 GM INHALER INH ONE
== END 2018-01-19 23:55 | disposition home or self-care (01) ==
LOC: EDBD 15:53 → C.EDC 15:54
DX: J18.9 Pneumonia, unspecified organism (principal); F10.129 Alcohol abuse with intoxication, unspecified; R10.816 Epigastric abdominal tenderness; Z91.19 Patient's noncompliance with other medical treatment and regimen; F17.200 Nicotine dependence, unspecified, uncomplicated; K70.30 Alcoholic cirrhosis of liver without ascites; F41.9 Anxiety disorder, unspecified; K86.1 Other chronic pancreatitis; I27.20 Pulmonary hypertension, unspecified; I85.00 Esophageal varices without bleeding; E03.9 Hypothyroidism, unspecified; D69.6 Thrombocytopenia, unspecified; J44.9 Chronic obstructive pulmonary disease, unspecified; Z88.6 Allergy status to analgesic agent

== ENCOUNTER 2018-02-15 19:55 | Emergency (ER) | payer OTHER ==
[~2018-02-15] VITALS: Ht 165.1 cm; Wt 67.8 kg
[~2018-02-15 19:55] MED LIST changes: -LEVO1TAB35 PO; -MAGN1TAB19 PO; -POTA20TA13 PO
[2018-02-15 19:58] VITALS: TEMP 36.9; Ht 165.1 cm; Wt 67.8 kg
--- NOTE | 2018-02-15 20:12 | EMERGENCY ROOM VISIT NOTE ---
History Report prepared by López: Kassy Sanchez Under the Supervision of: Dr. Jessica Diaz M.D. 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 He notices the blood in his stool, when he passes gas, and in his underwear. He states the first time he noticed it in his stool it was formed and black, the second time it was a little red and formed, and the last time was red and formed. He states he has associated abdominal pain, chest pain, and SOB. He notes he called his PCP who told him it could be his hemorrhoids. He is a current smoker and smokes about half a pack a day. 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 A total of 10 systems reviewed and were otherwise negative. Past Medical & Surgical Medical Problems: (1) Alcohol dependence (2) Alcoholic cirrhosis of liver without ascites (3) Asthma, mild persistent (4) Chronic anxiety (5) Chronic pancreatitis (6) COPD, mild (7) Esophageal varices (8) Heart attack (9) Hypothyroidism (10) Paroxysmal atrial fibrillation (11) Portal vein thrombosis (12) Pulmonary HTN (13) Thrombocytopenia (14) Tobacco abuse Surgical Problems: (1) H/O colonoscopy (2) History of cholecystectomy (3) History of esophagogastroduodenoscopy (EGD) Family History Blood clots Diabetes mellitus MOTHER FH: CAD (coronary artery disease) FATHER BROTHER FH: leukemia AUNT Hypertension Social History Smoking Status: Current Every Day Smoker Alcohol Use: heavy Drug Use: none Marital Status: Occupation Status: disabled Current/Historical Medications Scheduled Pantoprazole (Protonix), 40 MG PO BID Trazodone Hcl (Desyrel), 150 MG PO HS Allergies Coded Allergies: Fentanyl (Verified Allergy, Intermediate, RASH ALL OVER BODY, 02/15/18) ALL OVER BODY Physical Exam Vital Signs Date Time Temp Pulse Resp B/P (MAP) Pulse Ox O2 Delivery O2 Flow Rate FiO2 5/11/18 22:04 88 22 113/69 95 02/15/18 20:36 81 02/15/18 19:58 36.9 83 20 121/79 97 Room Air Physical Exam Vital signs reviewed. General: Chronically ill-appearing male, in no significant distress. Intoxicated HEENT: No scleral icterus, PERRLA, neck supple. Atraumatic. Cardiovascular: Regular rate and rhythm, no extra sounds. Pulmonary: Clear to auscultation bilaterally, normal work of breathing. Abdomen: Soft, nontender, nondistended, positive bowel sounds. GI: Small external hemorrhoid with yellowish brown guaiac negative stool Musculoskeletal: Atraumatic, no peripheral edema. Neurologic: Patient awake alert and oriented x 3 Skin: Warm, dry, no rash Medical Decision & Procedures ER Provider Diagnostic Interpretation: Radiology results as stated below per my review and radiologist interpretation: CHEST ONE VIEW PORTABLE HISTORY: Short of breath. COMPARISON: Chest 01/18/2018. FINDINGS: The heart is normal in size. No pleural effusions. No pneumothorax. No new focal lung consolidations. Bibasilar peribronchial thickening is again noted. Questionable hazy density within the right lung base, unchanged. IMPRESSION: No change in the bibasilar peribronchial thickening and subtle hazy density within the right lung base. This favors an atypical pneumonitis. Recommend one to [address] follow-up to ensure complete resolution. Electronically signed by: Villa Clinton M.D. 02/15/2018 9:23 PM Dictated Date/Time: 02/15/2018 9:20 PM Laboratory Results 02/15/18 20:33 Red Blood Count 4.36, Mean Corpuscular Volume 97.0, Mean Corpuscular Hemoglobin 35.8, Mean Corpuscular Hemoglobin Concent 36.9, Mean Platelet Volume 11.0, Neutrophils (%) (Auto) 42.5, Lymphocytes (%) (Auto) 40.0, Monocytes (%) (Auto) 10.8, Eosinophils (%) (Auto) 5.8, Basophils (%) (Auto) 0.6, Neutrophils # (Auto ) 3.75, Lymphocytes # (Auto) 3.53, Monocytes # (Auto) 0.95, Eosinophils # (Auto ) 0.51, Basophils # (Auto) 0.05 02/15/18 20:33 Test 5/11/18 20:33 White Blood Count 8.82 K/uL (4.8-10.8) Red Blood Count 4.36 M/uL (4.7-6.1) Hemoglobin 15.6 g/dL (14.0-18.0) Hematocrit 42.3 % (42-52) Mean Corpuscular Volume 97.0 fL (80-100) Mean Corpuscular Hemoglobin 35.8 pg (25-34) Mean Corpuscular Hemoglobin Concent 36.9 g/dl (32-36) Platelet Count 110 K/uL (130-400) Mean Platelet Volume 11.0 fL (7.4-10.4) Neutrophils (%) (Auto) 42.5 % Lymphocytes (%) (Auto) 40.0 % Monocytes (%) (Auto) 10.8 % Eosinophils (%) (Auto) 5.8 % Basophils (%) (Auto) 0.6 % Neutrophils # (Auto) 3.75 K/uL (1.4-6.5) Lymphocytes # (Auto) 3.53 K/uL (1.2-3.4) Monocytes # (Auto) 0.95 K/uL (0.11-0.59) Eosinophils # (Auto) 0.51 K/uL (0-0.5) Basophils # (Auto) 0.05 K/uL (0-0.2) RDW Standard Deviation 44.0 fL (36.4-46.3) RDW Coefficient of Variation 12.3 % (11.5-14.5) Immature Granulocyte % (Auto) 0.3 % Immature Granulocyte # (Auto) 0.03 K/uL (0.00-0.02) Prothrombin Time 12.3 SECONDS (9.0-12.0) Prothromb Time International Ratio 1.2 (0.9-1.1) Activated Partial Thromboplast Time 26.6 SECONDS (21.0-31.0) Partial Thromboplastin Ratio 1.0 Anion Gap 11.0 mmol/L (3-11) Est Creatinine Clear Calc Drug Dose 109.3 ml/min Estimated GFR () 126.4 Estimated GFR (Non- 109.0 BUN/Creatinine Ratio 4.3 (10-20) Calcium Level 8.0 mg/dl (8.5-10.1) Total Bilirubin 2.0 mg/dl (0.2-1) Direct Bilirubin 0.5 mg/dl (0-0.2) Aspartate Amino Transf (AST/SGOT) 42 U/L (15-37) Alanine Aminotransferase (ALT/SGPT) 24 U/L (12-78) Alkaline Phosphatase 106 U/L (45-117) Troponin I < 0.015 ng/ml (0-0.045) Total Protein 6.6 gm/dl (6.4-8.2) Albumin 2.5 gm/dl (3.4-5.0) Ethyl Alcohol mg/dL 284.4 mg/dl (0-3) Laboratory results per my review. ECG Per My Interpretation Indication: other (rectal bleeding) Rate (beats per minute): 76 Findings: no acute ischemic change, other (nonspecific ST changes, poor quality baseline per interpretation) Comparison ECG Date: 01/19/2018 Change: no significant change ED Course 2001: Past medical records reviewed. The patient was evaluated in room B7. A complete history and physical examination was performed. 2158: Upon reevaluation, the patient appeared to have improvement of his symptoms. I discussed findings with him. He verbalized agreement of the treatment plan. He was discharged home. Medical Decision Differential diagnosis: Etiologies such as diverticulitis, rectal fissure, hemorrhoidal bleed, peptic ulcer disease, acid reflux, ACS, pneumonia , as well as others were entertained. This patient was evaluated and appeared to be intoxicated on exam. IV access was obtained and laboratory work was drawn. The patient was placed on the laboratory monitor. Blood alcohol is 284. Patient's H&H is stable. EKG reveals no evidence of acute ischemia. Troponin is negative. Chest x-ray reveals chronic changes. Patient became angry during his stay, stating he wanted to leave. Patient's father did arrive in the parking lot, but would not present himself inside the department. As the patient was becoming agitated, security was asked to escort the patient to his father's car to ensure his safety. Patient was advised to follow-up with his PCP, refrain from excessive alcohol intake, seek alcohol counseling and to avoid NSAID use. He will return to the ER for worsening of symptoms or any medical concerns. Medication Reconcilliation Current Medication List: was personally reviewed by me Blood Pressure Screening Patient's blood pressure: Normal blood pressure Blood pressure disposition: Did not require urgent referral Impression Primary Impression: Rectal bleeding Additional Impression: Alcohol intoxication Scribe Attestation The scribe's documentation has been prepared under my direction and personally reviewed by me in its entirety. I confirm that the note above accurately reflects all work, treatment, procedures, and medical decision making performed by me. Departure Information Prescriptions Pantoprazole (Protonix) 40 Mg Tab 40 MG PO BID, #60 TAB Prov: Jessica Diaz M.D. 02/15/18 Referrals No Doctor, Assigned (PCP) Patient Instructions My [facility] [address] Problem Qualifiers
[2018-02-15 20:47] LABS: BASO % 0.6 %; BASO ABS # 0.05 K/uL (0-0.2); EOS % 5.8 %; EOS ABS # 0.51 K/uL (0-0.5); HEMATOCRIT 42.3 % (42-52); HEMOGLOBIN 15.6 g/dL (14.0-18.0); IG# 0.03 K/uL (0.00-0.02); LYMPH ABS # 3.53 K/uL (1.2-3.4); MEAN CORPUSCULAR HEMOGLOBIN 35.8 pg (25-34); MEAN CORPUSCULAR HGB CONC 36.9 g/dl (32-36); MONO % 10.8 %; MONO ABS # 0.95 K/uL (0.11-0.59); NEUT % 42.5 %; NEUT ABS # 3.75 K/uL (1.4-6.5); PLATELET COUNT 110 K/uL (130-400); RED CELL DISTRIBUTION WIDTH CV 12.3 % (11.5-14.5); WHITE BLOOD COUNT 8.82 K/uL (4.8-10.8)
[2018-02-15 21:01] LABS: INR 1.2 (0.9-1.1); PTT PATIENT 26.6 SECONDS (21.0-31.0)
[2018-02-15 21:05] LABS: ALBUMIN 2.5 gm/dl (3.4-5.0); ALT/SGPT 24 U/L (12-78); AST/SGOT 42 U/L (15-37); BLOOD UREA NITROGEN 3 mg/dl (7-18); CARBON DIOXIDE 23 mmol/L (21-32); CREATININE 0.68 mg/dl (0.60-1.40); GLUCOSE 83 mg/dl (70-99); POTASSIUM 3.1 mmol/L (3.5-5.1); SODIUM 139 mmol/L (136-145)
[2018-02-15 21:10] LABS: ALKALINE PHOSPHATASE 106 U/L (45-117); TOTAL PROTEIN 6.6 gm/dl (6.4-8.2)
--- NOTE | 2018-02-15 21:24 | DIAGNOSTIC IMAGING REPORT ---
CHEST ONE VIEW PORTABLE HISTORY: Short of breath. COMPARISON: Chest 01/18/2018. FINDINGS: The heart is normal in size. No pleural effusions. No pneumothorax. No new focal lung consolidations. Bibasilar peribronchial thickening is again noted. Questionable hazy density within the right lung base, unchanged. IMPRESSION: No change in the bibasilar peribronchial thickening and subtle hazy density within the right lung base. This favors an atypical pneumonitis. Recommend one to [address] follow-up to ensure complete resolution. Electronically signed by: Villa Clinton M.D. 02/15/2018 9:23 PM Dictated Date/Time: 02/15/2018 9:20 PM
[2018-02-15] MEDS ORDERED: PANT40TA PO (21:56)
[2018-02-15 22:04] VITALS: BP 113/69; PULSE 88; O2SAT 95
== END 2018-02-15 22:06 | disposition home or self-care (01) ==
LOC: EDBD 19:55 → C.EDB 19:56
DX: K64.4 Residual hemorrhoidal skin tags (principal); F10.229 Alcohol dependence with intoxication, unspecified; Y90.8 Blood alcohol level of 240 mg/100 ml or more; R10.9 Unspecified abdominal pain; R07.9 Chest pain, unspecified; R06.02 Shortness of breath; J44.9 Chronic obstructive pulmonary disease, unspecified; I27.20 Pulmonary hypertension, unspecified; F17.200 Nicotine dependence, unspecified, uncomplicated; Z79.899 Other long term (current) drug therapy; Z88.6 Allergy status to analgesic agent

== ENCOUNTER 2018-05-08 18:12 | Emergency (ER) | payer OTHER ==
[~2018-05-08] VITALS: Ht 165.1 cm; Wt 69.3 kg
[~2018-05-08 18:12] MED LIST changes: -TRAZ1TAB52 PO; +[UNRECOGNIZED DRUG - REMARK] PO
[2018-05-08 18:24] VITALS: TEMP 36.8; O2SAT 97; Ht 165.1 cm; Wt 69.3 kg
[2018-05-08] MEDS ORDERED: SODIUM CHLORIDE 0.9% 1000ML 1,000 ML IV STA (18:49)
[2018-05-08] MEDS ORDERED: THIAMINE HCL 100 MG TAB PO STA (18:49)
--- NOTE | 2018-05-08 18:53 | EMERGENCY ROOM VISIT NOTE ---
History Report prepared by López: Ned Michelle Under the Supervision of: Laine SadlerO. First contact with patient: 18:17 Stated Complaint: CHEST PAIN History of Present Illness The patient is a 52 year old male who presents to the Emergency Room with complaints of intermittent chest pain that began yesterday. Patient states the pain radiates to his back and left arm. He states this is his "worst chest pain ever". He adds he has been coughing up "green stuff". He denies coughing up blood. Patient adds he became lightheaded when the nurse placed the IV in his arm, which he states is not typical. Patient adds that he still drinks alcohol heavily. He adds he smokes a pack of cigarettes a day. Patient states he did not eat today. Patient denies having a bowel movement in the past 2 days. Patient denies leg swelling. Patient well-known to the emergency room and here frequently, typically with complaints of chest pain. Patient has had multiple evaluations including labs and chest imaging for chest pain. Source of History: patient Onset: Yesterday Position: chest, arm (left), back Symptom Intensity: "worst chest pain ever" Timing: intermittent Modifying Factors (Relieving): other (None) Associated Symptoms: + cough Note: Negative leg swelling. Review of Systems See HPI for pertinent positives & negatives. A total of 10 systems reviewed and were otherwise negative. Past Medical & Surgical Medical Problems: (1) Alcohol dependence (2) Alcoholic cirrhosis of liver without ascites (3) Asthma, mild persistent (4) Chronic anxiety (5) Chronic pancreatitis (6) COPD, mild (7) Esophageal varices (8) Heart attack (9) Hypothyroidism (10) Left-sided weakness (11) Paroxysmal atrial fibrillation (12) Portal vein thrombosis (13) Pulmonary HTN (14) Thrombocytopenia (15) Tobacco abuse Surgical Problems: (1) H/O colonoscopy (2) History of cholecystectomy (3) History of esophagogastroduodenoscopy (EGD) Family History Blood clots Diabetes mellitus MOTHER FH: CAD (coronary artery disease) FATHER BROTHER FH: leukemia AUNT Hypertension Social History Smoking Status: Current Every Day Smoker Alcohol Use: heavy Drug Use: none Marital Status: Housing Status: lives alone Occupation Status: disabled Current/Historical Medications No Active Prescriptions or Reported Meds Allergies Coded Allergies: Fentanyl (Verified Allergy, Intermediate, RASH ALL OVER BODY, 04/11/18) ALL OVER BODY Physical Exam Vital Signs Date Time Temp Pulse Resp B/P (MAP) Pulse Ox O2 Delivery O2 Flow Rate FiO2 05/08/18 20:33 83 16 114/75 97 05/08/18 19:48 71 16 112/75 97 Room Air 05/08/18 18:42 77 05/08/18 18:24 36.8 74 16 117/74 97 Room Air 05/08/18 18:24 97 Room Air 05/08/18 18:24 97 Room Air Physical Exam GENERAL: alert, well appearing, smells of EtOH and tobacco smoke, poor dentition , well nourished, no distress, non-toxic EYE EXAM: normal conjunctiva, PERRL and EOM's grossly intact OROPHARYNX: no exudate, no erythema, lips, buccal mucosa, and tongue normal and mucous membranes are moist NECK: supple, no nuchal rigidity, no adenopathy, non-tender LUNGS: Clear to auscultation. Reproducible chest wall tenderness otherwise normal chest wall mechanics. HEART: no murmurs, S1 normal and S2 normal ABDOMEN: abdomen soft, non-tender, normo-active bowel sounds, no masses, no rebound or guarding. BACK: Back is symmetrical on inspection and there is no deformity, no midline tenderness, no CVA tenderness. SKIN: no rashes and no bruising UPPER EXTREMITIES: upper extremities are grossly normal. LOWER EXTREMITIES: No pitting edema. NEURO EXAM: Normal sensorium, cranial nerves II-XII grossly intact, normal speech, no gross weakness of arms, no gross weakness of legs. Medical Decision & Procedures ER Provider Diagnostic Interpretation: Radiology results have been interpreted by the radiologist and reviewed by me. CHEST ONE VIEW PORTABLE CLINICAL HISTORY: Atypical chest pain COMPARISON STUDY: 04/06/2018 FINDINGS: The cardiac and mediastinal contours are normal. There is no evidence of focal pulmonary consolidation. There is no evidence of failure. No pleural effusions are visualized.[ There is deviation of the trachea the thoracic inlet to the right of midline. This is consistent with a thoracic inlet mass such as a thyroid goiter. IMPRESSION: No active disease in the chest. Electronically signed by: Charlie Kumar M.D. 05/08/2018 7:24 PM Laboratory Results 05/08/18 18:30 Red Blood Count 4.13, Mean Corpuscular Volume 98.3, Mean Corpuscular Hemoglobin 35.8, Mean Corpuscular Hemoglobin Concent 36.5, Mean Platelet Volume 11.6, Neutrophils (%) (Auto) 42.2, Lymphocytes (%) (Auto) 39.9, Monocytes (%) (Auto) 12.5, Eosinophils (%) (Auto) 4.6, Basophils (%) (Auto) 0.6, Neutrophils # (Auto ) 3.41, Lymphocytes # (Auto) 3.23, Monocytes # (Auto) 1.01, Eosinophils # (Auto ) 0.37, Basophils # (Auto) 0.05 05/08/18 18:30 Test 05/08/18 18:30 05/08/18 19:49 White Blood Count 8.09 K/uL (4.8-10.8) Red Blood Count 4.13 M/uL (4.7-6.1) Hemoglobin 14.8 g/dL (14.0-18.0) Hematocrit 40.6 % (42-52) Mean Corpuscular Volume 98.3 fL (80-100) Mean Corpuscular Hemoglobin 35.8 pg (25-34) Mean Corpuscular Hemoglobin Concent 36.5 g/dl (32-36) Platelet Count 113 K/uL (130-400) Mean Platelet Volume 11.6 fL (7.4-10.4) Neutrophils (%) (Auto) 42.2 % Lymphocytes (%) (Auto) 39.9 % Monocytes (%) (Auto) 12.5 % Eosinophils (%) (Auto) 4.6 % Basophils (%) (Auto) 0.6 % Neutrophils # (Auto) 3.41 K/uL (1.4-6.5) Lymphocytes # (Auto) 3.23 K/uL (1.2-3.4) Monocytes # (Auto) 1.01 K/uL (0.11-0.59) Eosinophils # (Auto) 0.37 K/uL (0-0.5) Basophils # (Auto) 0.05 K/uL (0-0.2) RDW Standard Deviation 46.2 fL (36.4-46.3) RDW Coefficient of Variation 12.8 % (11.5-14.5) Immature Granulocyte % (Auto) 0.2 % Immature Granulocyte # (Auto) 0.02 K/uL (0.00-0.02) Prothrombin Time 12.1 SECONDS (9.0-12.0) Prothromb Time International Ratio 1.2 (0.9-1.1) Anion Gap 8.0 mmol/L (3-11) Est Creatinine Clear Calc Drug Dose 96.5 ml/min Estimated GFR () 120.1 Estimated GFR (Non- 103.6 BUN/Creatinine Ratio 5.0 (10-20) Calcium Level 7.8 mg/dl (8.5-10.1) Magnesium Level 1.9 mg/dl (1.8-2.4) Total Bilirubin 1.5 mg/dl (0.2-1) Aspartate Amino Transf (AST/SGOT) 37 U/L (15-37) Alanine Aminotransferase (ALT/SGPT) 22 U/L (12-78) Alkaline Phosphatase 99 U/L (45-117) Troponin I < 0.015 ng/ml (0-0.045) Total Protein 6.6 gm/dl (6.4-8.2) Albumin 2.4 gm/dl (3.4-5.0) Globulin 4.2 gm/dl (2.5-4.0) Albumin/Globulin Ratio 0.6 (0.9-2) Lipase 209 U/L (73-393) Ethyl Alcohol mg/dL 258.8 mg/dl (0-3) Laboratory results per my review. Medications Administered Medications (Trade) Dose Ordered Sig/Justin Route Start Time Stop Time Status Last Admin Dose Admin Pantoprazole Sodium 40 mg/ Syringe 10 ml @ 5 mls/min NOW ONCE IV 05/08/18 19:00 05/08/18 19:01 DC 05/08/18 19:11 5 MLS/MIN Folic Acid (Folvite Tab) 1 mg NOW STAT PO 05/08/18 18:49 05/08/18 18:51 DC 05/08/18 19:10 1 MG Thiamine HCl (Vitamin B-1 Tab) 100 mg NOW STAT PO 05/08/18 18:49 18 18:51 DC 05/08/18 19:10 100 MG Sodium Chloride 1,000 ml @ 999 mls/hr Q1H1M STAT IV 05/08/18 18:49 05/08/18 19:49 DC 05/08/18 18:55 999 MLS/HR Potassium Chloride (Klor-Con M10) 40 meq NOW STAT PO 05/08/18 19:24 05/08/18 19:25 DC 05/08/18 19:36 40 MEQ Albuterol/ Ipratropium (Duoneb) 3 ml NOW STAT INH 05/08/18 19:34 05/08/18 19:35 DC 05/08/18 19:47 3 ML Al Hydroxide/Mg Hydroxide (Maalox Susp) 30 ml NOW STAT PO 05/08/18 20:16 05/08/18 20:17 DC 05/08/18 20:23 30 ML Acetaminophen (Tylenol Tab) 650 mg NOW STAT PO 05/08/18 20:25 05/08/18 20:26 DC 05/08/18 20:33 650 MG ECG Per My Interpretation Indication: chest pain Rate (beats per minute): 89 Rhythm: normal sinus Findings: no acute ischemic change, no ectopy, other (Normal axis/intervals) ED Course 1818: The patient was evaluated in room C8. A complete history and physical exam was performed. 1848: Sodium Chloride 1000 ml @ 999 mls/hr IV, Thiamine HCl 100mg PO, and Folic Acid 1mg PO 1899: Pantoprazole Sodium 40mg/Syringe 10 ml @ 5 mls/min IV 1923: Potassium Chloride 40meq PO 1933: Duoneb 3ml INH 2013: I reevaluated the patient. He states he is feeling better. Patient is going to call his dad to come pick him up. 2016: Maalox Susp 30ml PO 2024: Tylenol Tab 650mg PO 2039: Upon reevaluation, the patient is feeling better. Patient's father has arrived and states he will take the patient home. I discussed the findings and the treatment plan with the patient and his father. They verbalize agreement and understanding. He was discharged home. Medical Decision Differential diagnosis: Etiologies such as alcohol intoxication, toxicologic, hypoglycemia, electrolyte abnormalities, cardiac sources, intracerebral event, neurologic, cardiac ischemia, aortic dissection, pulmonary embolism, pneumonia, pneumothorax, musculoskeletal, infections, pericarditis, myocarditis, esophageal rupture, gastrointestinal, as well as others were entertained. Patient here well-appearing despite complaints. Pt updated on all results, clinically sober despite BAL. Pt states feeling improved after GI meds and wanted to call his Dad for a ride and go home. I have a low suspicion for ACS, CAD, PE, tamponade, effusion, bacteremia/sepsis, perforation, GI bleed, pneumothorax, dissection, thoracic aneurysm. Discussed the patient he does have risk factors for ACS and needs to consider cutting back on his drinking and smoking and follow-up with his family doctor. Discussed risks of long-term alcohol consumption and abuse. Patient hemodynamically stable throughout. Encouraged patient to consider quitting smoking, discussed risks and complications of long-term tobacco abuse. Discussed with patient symptoms to watch and return for, he verbalized understanding was agreeable with plan. Patient well-appearing at time of discharge in his usual state of health, ambulatory with a steady gait, tolerating sips of p.o., requesting to be discharged as soon as possible. Medication Reconcilliation Current Medication List: was personally reviewed by me Blood Pressure Screening Patient's blood pressure: Normal blood pressure Blood pressure disposition: Did not require urgent referral Impression Primary Impression: Alcohol abuse Additional Impressions: Alcohol intoxication Chest pain Tobacco abuse Dehydration Scribe Attestation The scribe's documentation has been prepared under my direction and personally reviewed by me in its entirety. I confirm that the note above accurately reflects all work, treatment, procedures, and medical decision making performed by me. Departure Information Dispostion Home / Self-Care Prescriptions No Active Prescriptions or Reported Meds Referrals No Doctor, Assigned (PCP) Forms Call Back Authorization, HOME CARE DOCUMENTATION FORM, IMPORTANT VISIT INFORMATION Patient Instructions My [facility] [employer] Additional Instructions Please try to cut back on your drinking and smoking. Long-term alcohol abuse can result in health complications, disability, incarceration, and even . Please try to eat and drink water regular intervals. If you have any new or concerning symptoms, please return the emergency room. Please follow-up with your family doctor and your city superintendent of schools regarding your continued episodes of chest pain. Problem Qualifiers Additional Impressions: Alcohol intoxication Complication of substance-induced condition: uncomplicated Qualified Codes: F10.920 - Alcohol use, unspecified with intoxication, uncomplicated Chest pain Chest pain type: unspecified Qualified Codes: R07.9 - Chest pain, unspecified
[2018-05-08] MEDS ORDERED: PANTOprazole INJ 40 MG in SYRINGE 0 ML IV ONE (19:00)
[2018-05-08 19:03] LABS: BASO % 0.6 %; BASO ABS # 0.05 K/uL (0-0.2); EOS % 4.6 %; EOS ABS # 0.37 K/uL (0-0.5); HEMATOCRIT 40.6 % (42-52); HEMOGLOBIN 14.8 g/dL (14.0-18.0); IG# 0.02 K/uL (0.00-0.02); LYMPH % 39.9 %; LYMPH ABS # 3.23 K/uL (1.2-3.4); MEAN CELL VOLUME 98.3 fL (80-100); MEAN CORPUSCULAR HEMOGLOBIN 35.8 pg (25-34); MEAN CORPUSCULAR HGB CONC 36.5 g/dl (32-36); MEAN PLATELET VOLUME 11.6 fL (7.4-10.4); MONO % 12.5 %; MONO ABS # 1.01 K/uL (0.11-0.59); NEUT % 42.2 %; NEUT ABS # 3.41 K/uL (1.4-6.5); PLATELET COUNT 113 K/uL (130-400); RED CELL DISTRIBUTION WIDTH CV 12.8 % (11.5-14.5); RED CELL DISTRIBUTION WIDTH SD 46.2 fL (36.4-46.3); WHITE BLOOD COUNT 8.09 K/uL (4.8-10.8)
[2018-05-08 19:15] LABS: INR 1.2 (0.9-1.1)
[2018-05-08 19:17] LABS: ALBUMIN 2.4 gm/dl (3.4-5.0); ALKALINE PHOSPHATASE 99 U/L (45-117); ALT/SGPT 22 U/L (12-78); AST/SGOT 37 U/L (15-37); BLOOD UREA NITROGEN 4 mg/dl (7-18); CALCIUM 7.8 mg/dl (8.5-10.1); CARBON DIOXIDE 22 mmol/L (21-32); CREATININE 0.77 mg/dl (0.60-1.40); GLUCOSE 80 mg/dl (70-99); LIPASE 209 U/L (73-393); SODIUM 138 mmol/L (136-145); TOTAL PROTEIN 6.6 gm/dl (6.4-8.2)
[2018-05-08] MEDS ORDERED: POTASSIUM CHLORIDE 10 MEQ TABCR PO STA (19:24)
--- NOTE | 2018-05-08 19:25 | DIAGNOSTIC IMAGING REPORT ---
CHEST ONE VIEW PORTABLE CLINICAL HISTORY: Atypical chest pain COMPARISON STUDY: 04/06/2018 FINDINGS: The cardiac and mediastinal contours are normal. There is no evidence of focal pulmonary consolidation. There is no evidence of failure. No pleural effusions are visualized.[ There is deviation of the trachea the thoracic inlet to the right of midline. This is consistent with a thoracic inlet mass such as a thyroid goiter. IMPRESSION: No active disease in the chest. Electronically signed by: Charlie Kumar M.D. 05/08/2018 7:24 PM Dictated Date/Time: 05/08/2018 7:23 PM
[2018-05-08] MEDS ORDERED: ALBUT/IPRATROP 3MG/0.5MG NEB 3 ML VIAL INH STA (19:34)
[2018-05-08] MEDS ORDERED: ALUMINUM/MAGNESIUM SUSP 30 ML UDC PO STA (20:16)
[2018-05-08] MEDS ORDERED: ACETAMINOPHEN 325 MG TAB PO STA (20:25)
[2018-05-08 20:33] VITALS: BP 114/75; PULSE 83; O2SAT 97
== END 2018-05-08 20:45 | disposition home or self-care (01) ==
LOC: EDBD 18:12 → C.EDC 18:13
DX: R07.9 Chest pain, unspecified (principal); F10.120 Alcohol abuse with intoxication, uncomplicated; E86.0 Dehydration; R42 Dizziness and giddiness; J44.9 Chronic obstructive pulmonary disease, unspecified; I27.0 Primary pulmonary hypertension; F17.200 Nicotine dependence, unspecified, uncomplicated; Z82.49 Family history of ischemic heart disease and other diseases of the circulatory system; Z88.6 Allergy status to analgesic agent

== ENCOUNTER 2018-05-11 17:35 | Emergency (ER) | payer OTHER ==
[~2018-05-11] VITALS: Ht 165.1 cm; Wt 67.2 kg
[2018-05-11 17:39] VITALS: TEMP 36.7; Ht 165.1 cm; Wt 67.2 kg
--- NOTE | 2018-05-11 17:54 | EMERGENCY ROOM VISIT NOTE ---
History Report prepared by López: Isac Khan Under the Supervision of: Dr. Pierre Cruz D.O. First contact with patient: 17:42 Chief Complaint: MENTAL HEALTH EVALUATION Stated Complaint: MENTAL HEALTH EVAL History of Present Illness The patient is a 52 year old male who presents to the Emergency Room with complaints of alcohol abuse. The patient has a long history of alcohol abuse as well as visits to our facility for mental health problems. At this time he has no medical complaints but presented to the emergency department with police requesting detox and evaluation for his mental health. The patient was having an argument with his son. He had been drinking all day. He admits to drinking multiple beers throughout the entire day. He denies having any falls or chest pain. He denies having any nausea or vomiting. He states while he was having an argument with his son he started having suicidal ideation stating he went to jump off of a bridge. The patient has had similar visits in the past. Source of History: patient, police Onset: today Position: other (global) Symptom Intensity: multiple beers Quality: other (alcohol abuse) Associated Symptoms: No chest pain, No nausea, No vomiting Review of Systems See HPI for pertinent positives & negatives. A total of 10 systems reviewed and were otherwise negative. Past Medical & Surgical Medical Problems: (1) Alcohol dependence (2) Alcoholic cirrhosis of liver without ascites (3) Asthma, mild persistent (4) Chronic anxiety (5) Chronic pancreatitis (6) COPD, mild (7) Esophageal varices (8) Heart attack (9) Hypothyroidism (10) Left-sided weakness (11) Paroxysmal atrial fibrillation (12) Portal vein thrombosis (13) Pulmonary HTN (14) Thrombocytopenia (15) Tobacco abuse Surgical Problems: (1) H/O colonoscopy (2) History of cholecystectomy (3) History of esophagogastroduodenoscopy (EGD) Family History Blood clots Diabetes mellitus MOTHER FH: CAD (coronary artery disease) FATHER BROTHER FH: leukemia AUNT Hypertension Social History Smoking Status: Current Every Day Smoker Alcohol Use: heavy Drug Use: none Marital Status: Housing Status: lives alone Occupation Status: disabled Current/Historical Medications No Active Prescriptions or Reported Meds Allergies Coded Allergies: Fentanyl (Verified Allergy, Intermediate, RASH ALL OVER BODY, 05/11/18) ALL OVER BODY Physical Exam Vital Signs Date Time Temp Pulse Resp B/P (MAP) Pulse Ox O2 Delivery O2 Flow Rate FiO2 05/11/18 19:09 76 16 121/82 98 05/11/18 17:39 36.7 75 18 142/85 96 Room Air Physical Exam GENERAL: Patient is awake. He is answering questions appropriately. He is visually intoxicated and smells of alcohol. EYES: The conjunctivae are clear. The pupils are round and reactive. EARS, NOSE, MOUTH AND THROAT: The nose is without any evidence of any deformity. Mucous membranes are moist tongue is midline NECK: The neck is nontender and supple. RESPIRATORY: Normal respiratory effort is noted there is no evidence of wheezing rhonchi or rales CARDIOVASCULAR: Regular rate and rhythm noted there no murmurs rubs or gallops normal S1 normal S2 GASTROINTESTINAL: The abdomen is soft. Bowel sounds are present in all quadrants. Abdomen is nontender MUSCULOSKELETAL/EXTREMITIES: There is no evidence of gross deformity full range of motion is noted in the hips and shoulders SKIN: There is no obvious evidence of any rash. There are no petechiae, pallor or cyanosis noted. NEUROLOGIC: Patient is awake alert and oriented x3 strength is symmetric patellar reflexes are 2+ bilaterally PSYCH: Patient is currently admitting to suicidal ideation with plan to jump off a bridge. He does admit to drinking alcohol and is requesting detox. Medical Decision & Procedures Laboratory Results 05/11/18 17:53 Red Blood Count 4.53, Mean Corpuscular Volume 98.9, Mean Corpuscular Hemoglobin 35.3, Mean Corpuscular Hemoglobin Concent 35.7, Mean Platelet Volume 12.0, Neutrophils (%) (Auto) 56.1, Lymphocytes (%) (Auto) 28.3, Monocytes (%) (Auto) 12.2, Eosinophils (%) (Auto) 2.4, Basophils (%) (Auto) 0.8, Neutrophils # (Auto ) 5.04, Lymphocytes # (Auto) 2.55, Monocytes # (Auto) 1.10, Eosinophils # (Auto ) 0.22, Basophils # (Auto) 0.07 05/11/18 17:53 Test 05/11/18 17:53 05/11/18 18:35 White Blood Count 9.00 K/uL (4.8-10.8) Red Blood Count 4.53 M/uL (4.7-6.1) Hemoglobin 16.0 g/dL (14.0-18.0) Hematocrit 44.8 % (42-52) Mean Corpuscular Volume 98.9 fL (80-100) Mean Corpuscular Hemoglobin 35.3 pg (25-34) Mean Corpuscular Hemoglobin Concent 35.7 g/dl (32-36) Platelet Count 142 K/uL (130-400) Mean Platelet Volume 12.0 fL (7.4-10.4) Neutrophils (%) (Auto) 56.1 % Lymphocytes (%) (Auto) 28.3 % Monocytes (%) (Auto) 12.2 % Eosinophils (%) (Auto) 2.4 % Basophils (%) (Auto) 0.8 % Neutrophils # (Auto) 5.04 K/uL (1.4-6.5) Lymphocytes # (Auto) 2.55 K/uL (1.2-3.4) Monocytes # (Auto) 1.10 K/uL (0.11-0.59) Eosinophils # (Auto) 0.22 K/uL (0-0.5) Basophils # (Auto) 0.07 K/uL (0-0.2) RDW Standard Deviation 46.1 fL (36.4-46.3) RDW Coefficient of Variation 12.8 % (11.5-14.5) Immature Granulocyte % (Auto) 0.2 % Immature Granulocyte # (Auto) 0.02 K/uL (0.00-0.02) Anion Gap 8.0 mmol/L (3-11) Est Creatinine Clear Calc Drug Dose 96.5 ml/min Estimated GFR () 120.1 Estimated GFR (Non- 103.6 BUN/Creatinine Ratio 4.7 (10-20) Calcium Level 8.6 mg/dl (8.5-10.1) Total Bilirubin 1.4 mg/dl (0.2-1) Direct Bilirubin 0.4 mg/dl (0-0.2) Aspartate Amino Transf (AST/SGOT) 51 U/L (15-37) Alanine Aminotransferase (ALT/SGPT) 25 U/L (12-78) Alkaline Phosphatase 113 U/L (45-117) Total Protein 7.7 gm/dl (6.4-8.2) Albumin 2.8 gm/dl (3.4-5.0) Thyroid Stimulating Hormone (TSH) 4.180 uIu/ml (0.300-4.500) Ethyl Alcohol mg/dL 284.0 mg/dl (0-3) Urine Color YELLOW Urine Appearance CLEAR (CLEAR) Urine pH 6.0 (4.5-7.5) Urine Specific [place] 1.008 (1.000-1.030) Urine Protein NEG (NEG) Urine Glucose (UA) NEG (NEG) Urine Ketones NEG (NEG) Urine Occult Blood NEG (NEG) Urine Nitrite NEG (NEG) Urine Bilirubin NEG (NEG) Urine Urobilinogen NEG (NEG) Urine Leukocyte Esterase NEG (NEG) Urine Opiates Screen NEG (NEG) Urine Methadone, Qualitative NEG (NEG) Urine Barbiturates NEG (NEG) Urine Phencyclidine (PCP) Level NEG (NEG) Ur Amphetamine/Methamphetamine NEG (NEG) MDMA (Ecstasy) Screen NEG (NEG) Urine Benzodiazepines Screen NEG (NEG) Urine Cocaine Metabolite NEG (NEG) Urine Marijuana (THC) NEG (NEG) Laboratory results per my review. ED Course 175: The patient was evaluated in room A10. A complete history and physical examination were performed. 184: I checked on the patient, who states he is feeling better. He denies suicidal or homicidal ideation. 185: I called the [place] police. They report that the patient told them nothing consistent with involuntary commitment. 185: Upon reevaluation, the patient is resting. I discussed the results and treatment plan with him. He verbalized agreement of the treatment plan. He was discharged home. Medical Decision Prior records/ancillary studies reviewed. Triage Nursing notes reviewed. Additional history obtained from nursing staff as well as the police. The patient's history was concerning for possible psychiatric disturbance. Differential diagnosis: Etiologies such as mood disorder, infection, hypoglycemia, electrolyte abnormalities, cardiac sources, intracerebral event, toxicologic, neurologic, as well as others were entertained. The patient is a 52-year-old male who presented to the emergency department for mental health evaluation. The patient is very well-known to our group and I take care of this patient many times in the past. He has a history of alcoholism. He presented to the emergency department today after having a fight with a family member and became very anxious and made suicidal ideations known. The police were called and the patient was brought to the emergency department. Upon arrival he did admit that he made the statements however at this time he does not appear to have active suicidal ideation. The patient's alcohol level was elevated but the patient is not clinically intoxicated and is able to walk and carry on a conversation without difficulty. He requested to be discharged. I offered to have him evaluated by the mental health case fitter but the patient does not wish to do that at this time does not wish to go to detox. The patient was able to call a sober friend to come to the emergency department. He was advised to avoid any further alcoholic beverages. He was also advised to avoid operating any heavy machinery including driving a vehicle for next 24 hours. Medication Reconcilliation Current Medication List: was personally reviewed by me Blood Pressure Screening Patient's blood pressure: Elevated blood pressure Blood pressure disposition: Elevated BP felt to be situational Impression Primary Impression: Alcohol intoxication Additional Impression: Anxiety Scribe Attestation The scribe's documentation has been prepared under my direction and personally reviewed by me in its entirety. I confirm that the note above accurately reflects all work, treatment, procedures, and medical decision making performed by me. Departure Information Dispostion Home / Self-Care Prescriptions No Active Prescriptions or Reported Meds Referrals No Doctor, Assigned (PCP) Forms HOME CARE DOCUMENTATION FORM, IMPORTANT VISIT INFORMATION Patient Instructions [facility] Additional Instructions Call crisis or return to the emergency department immediately if symptoms change worsen or the need arises. Try to avoid any further alcoholic beverages. Do not operate any heavy machinery including driving a vehicle for the next 24 hours as her alcohol level was very elevated today. Problem Qualifiers Primary Impression: Alcohol intoxication Complication of substance-induced condition: uncomplicated Qualified Codes: F10.920 - Alcohol use, unspecified with intoxication, uncomplicated
[2018-05-11 19:09] VITALS: BP 121/82; PULSE 76; O2SAT 98
[2018-05-11 20:26] LABS: ALBUMIN 2.8 gm/dl (3.4-5.0); CALCIUM 8.6 mg/dl (8.5-10.1); CREATININE 0.77 mg/dl (0.60-1.40); POTASSIUM 3.4 mmol/L (3.5-5.1); TOTAL PROTEIN 7.7 gm/dl (6.4-8.2)
[2018-05-11 20:28] LABS: BASO % 0.8 %; BASO ABS # 0.07 K/uL (0-0.2); EOS % 2.4 %; EOS ABS # 0.22 K/uL (0-0.5); HEMATOCRIT 44.8 % (42-52); IG# 0.02 K/uL (0.00-0.02); LYMPH % 28.3 %; LYMPH ABS # 2.55 K/uL (1.2-3.4); MEAN CELL VOLUME 98.9 fL (80-100); MEAN CORPUSCULAR HEMOGLOBIN 35.3 pg (25-34); MEAN CORPUSCULAR HGB CONC 35.7 g/dl (32-36); MONO % 12.2 %; NEUT % 56.1 %; NEUT ABS # 5.04 K/uL (1.4-6.5); PLATELET COUNT 142 K/uL (130-400); RED CELL DISTRIBUTION WIDTH CV 12.8 % (11.5-14.5); RED CELL DISTRIBUTION WIDTH SD 46.1 fL (36.4-46.3)
[2018-05-15] MEDS ORDERED: NICO21DI4 TD (11:05)
[2018-05-15] MEDS ORDERED: DILT-202 PO (11:05)
[2018-05-15] MEDS ORDERED: FLV1 PO (11:05)
[2018-05-15] MEDS ORDERED: THIA100T10 PO (11:05)
== END 2018-05-11 19:10 | disposition home or self-care (01) ==
LOC: C.EDB 17:36 → C.EDA 19:10
DX: F10.10 Alcohol abuse, uncomplicated (principal); F41.9 Anxiety disorder, unspecified; Y90.8 Blood alcohol level of 240 mg/100 ml or more; R45.851 Suicidal ideations; J44.9 Chronic obstructive pulmonary disease, unspecified; I27.0 Primary pulmonary hypertension; F17.200 Nicotine dependence, unspecified, uncomplicated

== ENCOUNTER 2018-05-13 17:12 | Inpatient (IN) | payer OTHER ==
[~2018-05-13] VITALS: Ht 165.1 cm; Wt 67.0 kg
[2018-05-13] MEDS ORDERED: FAMOTIDINE 20 MG TAB PO ONE (18:00)
--- NOTE | 2018-05-13 18:04 | EMERGENCY ROOM VISIT NOTE ---
History First contact with patient: 17:45 Chief Complaint: ALCOHOL OVERDOSE Stated Complaint: ALCOHOL Nursing Triage Summary: Triage Notes: patient presents to triage with unsteady gait. patient reports he has been drinking alcohol. "I need some help" when patient was asked if he had thoughts of wanting to hurt himself patient replied "I dont know" History of Present Illness The patient is a 52 year old male who presents to the Emergency Room with complaints of thoughts of going to hurt himself. Patient here frequently and is previously made the statement. Patient denies any specific plan. Denies HI or hallucinations. Patient admits to drinking alcohol earlier today. Patient also complains of chest pain abdominal pain which are chronic and recurrent complaints and him. Patient with no prior suicide attempt. Denies any coingestions today. Review of Systems See HPI for pertinent positives & negatives. A total of 10 systems reviewed and were otherwise negative. Past Medical/Surgical History Medical Problems: (1) Alcohol dependence (2) Alcoholic cirrhosis of liver without ascites (3) Asthma, mild persistent (4) Atrial fibrillation (5) Chronic anxiety (6) Chronic pancreatitis (7) COPD, mild (8) Esophageal varices (9) Heart attack (10) Hypothyroidism (11) Paroxysmal atrial fibrillation (12) Portal vein thrombosis (13) Pulmonary HTN (14) Thrombocytopenia (15) Tobacco abuse Surgical Problems: (1) H/O colonoscopy (2) History of cholecystectomy (3) History of esophagogastroduodenoscopy (EGD) Family History Blood clots Diabetes mellitus MOTHER FH: CAD (coronary artery disease) FATHER BROTHER FH: leukemia AUNT Hypertension Social History Smoking Status: Current Every Day Smoker Alcohol Use: heavy Drug Use: none Marital Status: Housing Status: lives alone Occupation Status: disabled Current/Historical Medications Scheduled Diltiazem HCl (Diltiazem Cd), 120 MG PO QAM Folic Acid (Folic Acid), 1 MG PO QAM Nicotine (Nicoderm Cq), 1 PATCH TD QAM Thiamine Hcl (Vitamin B-1), 100 MG PO QAM Physical Exam Vital Signs Date Time Temp Pulse Resp B/P (MAP) Pulse Ox O2 Delivery O2 Flow Rate FiO2 05/13/18 22:45 101 91 05/13/18 22:25 105 05/13/18 22:16 97 22 115/70 93 Room Air 8/6/18 21:32 108 05/13/18 20:29 117 05/13/18 20:27 126 114/83 05/13/18 20:15 125 25 91/68 95 Room Air 05/13/18 18:06 85 24 106/72 94 Room Air 05/13/18 18:01 88 18 104/71 94 Room Air 05/13/18 17:49 87 05/13/18 17:41 87 18 108/71 94 Room Air 05/13/18 17:30 96 Room Air 05/13/18 17:30 96 Room Air 05/13/18 17:15 36.8 47 18 121/68 96 Room Air Physical Exam GENERAL: alert, well appearing, well nourished, no distress, non-toxic, smells of EtOH EYE EXAM: normal conjunctiva, PERRL and EOM's grossly intact OROPHARYNX: no exudate, no erythema, lips, buccal mucosa, and tongue normal and mucous membranes are moist, dry mucous membranes, poor dentition NECK: supple, no nuchal rigidity, no adenopathy, non-tender LUNGS: Clear to auscultation. Normal chest wall mechanics, no w/r/r HEART: no murmurs, S1 normal and S2 normal ABDOMEN: abdomen soft, non-tender, normo-active bowel sounds, no masses, no rebound or guarding. BACK: Back is symmetrical on inspection and there is no deformity, no midline tenderness, no CVA tenderness. SKIN: no rashes and no bruising UPPER EXTREMITIES: upper extremities are grossly normal. Full range of motion, normal pulses. LOWER EXTREMITIES: No pitting edema. Full range of motion, normal pulses. NEURO EXAM: Normal sensorium, cranial nerves II-XII [grossly] intact, normal speech, no [gross] weakness of arms, no [gross] weakness of legs. Gross sensation intact. PSYCH: States SI, no plan, no HI Medical Decision & Procedures Laboratory Results Test 05/13/18 17:25 05/13/18 18:55 Urine Color YELLOW Urine Appearance CLEAR (CLEAR) Urine pH 6.5 (4.5-7.5) Urine Specific [place] 1.003 (1.000-1.030) Urine Protein NEG (NEG) Urine Glucose (UA) NEG (NEG) Urine Ketones NEG (NEG) Urine Occult Blood NEG (NEG) Urine Nitrite NEG (NEG) Urine Bilirubin NEG (NEG) Urine Urobilinogen NEG (NEG) Urine Leukocyte Esterase NEG (NEG) Urine Opiates Screen NEG (NEG) Urine Methadone, Qualitative NEG (NEG) Urine Barbiturates NEG (NEG) Urine Phencyclidine (PCP) Level NEG (NEG) Ur Amphetamine/Methamphetamine NEG (NEG) MDMA (Ecstasy) Screen NEG (NEG) Urine Benzodiazepines Screen NEG (NEG) Urine Cocaine Metabolite NEG (NEG) Urine Marijuana (THC) NEG (NEG) Total Bilirubin 1.4 mg/dl (0.2-1) Direct Bilirubin 0.4 mg/dl (0-0.2) Aspartate Amino Transf (AST/SGOT) 44 U/L (15-37) Alanine Aminotransferase (ALT/SGPT) 24 U/L (12-78) Alkaline Phosphatase 103 U/L (45-117) Pro-B-Type Natriuretic Peptide 25 pg/ml (0-900) Total Protein 6.7 gm/dl (6.4-8.2) Albumin 2.4 gm/dl (3.4-5.0) Thyroid Stimulating Hormone (TSH) 3.640 uIu/ml (0.300-4.500) Ethyl Alcohol mg/dL 279.4 mg/dl (0-3) Medications Administered Medications (Trade) Dose Ordered Sig/Justin Route Start Time Stop Time Status Last Admin Dose Admin Famotidine (Pepcid Tab) 20 mg NOW ONCE PO 05/13/18 18:00 05/13/18 18:03 DC 05/13/18 18:36 20 MG Folic Acid (Folvite Tab) 1 mg NOW STAT PO 05/13/18 19:54 05/13/18 19:55 DC 05/13/18 20:14 1 MG Thiamine HCl (Vitamin B-1 Tab) 100 mg NOW STAT PO 05/13/18 19:54 05/13/18 19:55 DC 05/13/18 20:14 100 MG Metoprolol Tartrate (Lopressor Iv) 5 mg Q5M STAT IV 05/13/18 20:19 05/13/18 20:20 DC 05/13/18 20:27 5 MG Sodium Chloride 1,000 ml @ 999 mls/hr Q1H1M STAT IV 05/13/18 20:20 05/13/18 21:20 DC 05/13/18 20:26 999 MLS/HR Diltiazem HCl (Cardizem Inj) 25 mg STK-MED ONCE .ROUTE 05/13/18 20:38 05/13/18 20:39 DC 05/13/18 20:49 10 MG Multivitamins 10 ml/Thiamine HCl 100 mg/Folic Acid 1 mg/Sodium Chloride 1,011.2 ml @ 500 mls/ hr Q2H2M ONCE IV 05/13/18 21:00 05/13/18 23:04 DC 05/13/18 21:31 500 MLS/HR Magnesium Sulfate 100 ml @ 100 mls/hr NOW STAT IV 05/13/18 20:54 05/13/18 23:16 DC 05/14/18 01:48 100 MLS/HR Digoxin (Digoxin IV) 500 mcg STK-MED ONCE .ROUTE 05/13/18 21:25 05/13/18 21:26 DC 05/13/18 21:32 250 MCG Magnesium Sulfate (Magnesium Sulfate 1gm / D5W) 1 gm STK-MED ONCE IV 05/13/18 21:25 05/13/18 21:26 DC 05/13/18 21:31 1 GM Potassium Chloride (Klor-Con M10) 50 meq STK-MED ONCE .ROUTE 05/13/18 21:25 05/13/18 21:26 DC 05/13/18 21:31 50 MEQ Digoxin (Digoxin IV) 500 mcg STK-MED ONCE .ROUTE 05/13/18 22:21 05/13/18 22:22 DC 05/13/18 22:25 250 MCG ECG Per My Interpretation Indication: tachycardia Rate (beats per minute): 116 Rhythm: atrial fibrillation Findings: no acute ischemic change (1931 ekg done) ED Course 1999: Patient reevaluated, in rapid A. fib. Patient still intoxicated, however continues to complain of chest pain per his usual. 2034: No change in patient's rhythm following ministration of metoprolol 5 mg IV. Patient's rate is slower. Proximally half of his 1 L saline bolus was infused. We will try Cardizem at this time. 2042: Patient's heart rate now markedly improved into the 90s following a Cardizem bolus. However still in atrial fibrillation. Medical Decision Patient well-known to the emergency room and her chronically typically related to his alcohol intoxication and alcohol abuse. Patient often complains of chest pain. Review of EMR patient has had paradoxical atrial fibrillation likely related to his alcohol abuse. Patient here given IV fluids and initially 1 dose of metoprolol. Patient then started on Cardizem bolus and drip to help control atrial fibrillation. Patient not started on anticoagulation due to his increased risk of bleeding from potential complications of his alcohol abuse and also increased fall risk due to his alcohol abuse. Patient has previously overdosed on calcium channel blockers that were previously used to treat his atrial fibrillation. Patient's other labs reassuring. Patient otherwise hemodynamically stable. Case discussed with cardiology. I feel the patient can be safely chemically converted to a normal sinus rhythm again, he could be seen and evaluated by psychiatry given he made suicidal statements previously. Patient has previously done was also under the influence of alcohol and upon sobriety has then recanted. Medication Reconcilliation Current Medication List: was personally reviewed by me Blood Pressure Screening Patient's blood pressure: Normal blood pressure Impression Primary Impression: Alcohol abuse Additional Impressions: Alcohol use with intoxication Paroxysmal atrial fibrillation Critical Care I have personally spent greater than 45 minutes of critical care time in the direct management of this patient. This includes bedside care, interpretation of diagnostic studies, and testing, discussion with consultants, patient, and family members, and other required patient management activities. This 45 minutes is in excess of all separately billable procedures. Departure Information Dispostion Being Evaluated By Hospitalist Prescriptions Thiamine Hcl (Vitamin B-1) 100 Mg Tab 100 MG PO QAM for 30 Days, #30 TAB Prov: Alexis Murray M.D. 05/15/18 Folic Acid (Folic Acid) 1 Mg Tab 1 MG PO QAM for 30 Days, #30 TAB Prov: Alexis Murray M.D. 05/15/18 Diltiazem HCl (Diltiazem Cd) 120 Mg Capcr 120 MG PO QAM for 30 Days, #30 TAB Prov: Alexis Murray M.D. 05/15/18 Nicotine (NICODERM CQ) 21 Mg/24 Hr Dis 1 PATCH TD QAM for 30 Days, #30 PATCH Prov: Alexis Murray M.D. 05/15/18 Referrals No Doctor, Assigned (PCP) Patient Instructions My [facility] Problem Qualifiers
--- NOTE | 2018-05-13 19:05 | DIAGNOSTIC IMAGING REPORT ---
ABDOMEN 2VIEW W/PA CHEST RTN CLINICAL HISTORY: 52 years-old Male presenting with chest pain/abd pain. TECHNIQUE: PA view of the chest and supine and left lateral decubitus views of the abdomen were obtained. COMPARISON: 05/08/2018. FINDINGS: Cardiomediastinal silhouette normal. Pulmonary vasculature enlarged. Nodular opacities at the lung bases, right greater than left. Lungs may be mildly hyperinflated. No large effusion or pneumothorax. Cholecystectomy clips noted. Moderate stool burden. Nonobstructive bowel gas pattern. No gross pneumoperitoneum. Allowing for bowel gas and stool, no calcifications to suggest nephrolithiasis. Surgical clip projects over the pelvis. Calcific density in the left lower quadrant may be within a diverticulum. Multiple pelvic phleboliths. Osseous structures normal. IMPRESSION: 1. Pulmonary vessel prominence may indicate underlying volume overload. 2. Nodular opacities at the lung bases, right greater than left, may also be vascular or cyst less likely nodular infiltrates. 3. No radiographic evidence of acute intra-abdominal pathology. 4. Suspected colonic diverticulum in the left lower quadrant. Electronically signed by: Jonathan Hart M.D. 05/13/2018 7:03 PM Dictated Date/Time: 05/13/2018 7:00 PM
[2018-05-13 19:14] LABS: BASO % 0.9 %; BASO ABS # 0.08 K/uL (0-0.2); EOS % 4.1 %; EOS ABS # 0.37 K/uL (0-0.5); HEMATOCRIT 42.6 % (42-52); HEMOGLOBIN 15.2 g/dL (14.0-18.0); IG# 0.02 K/uL (0.00-0.02); LYMPH % 36.7 %; LYMPH ABS # 3.29 K/uL (1.2-3.4); MEAN CELL VOLUME 99.3 fL (80-100); MEAN CORPUSCULAR HEMOGLOBIN 35.4 pg (25-34); MEAN CORPUSCULAR HGB CONC 35.7 g/dl (32-36); MEAN PLATELET VOLUME 11.6 fL (7.4-10.4); MONO % 11.1 %; NEUT ABS # 4.21 K/uL (1.4-6.5); PLATELET COUNT 132 K/uL (130-400); RED CELL DISTRIBUTION WIDTH CV 12.9 % (11.5-14.5); RED CELL DISTRIBUTION WIDTH SD 46.7 fL (36.4-46.3); WHITE BLOOD COUNT 8.97 K/uL (4.8-10.8)
[2018-05-13 19:50] LABS: ALBUMIN 2.4 gm/dl (3.4-5.0); ALKALINE PHOSPHATASE 103 U/L (45-117); ALT/SGPT 24 U/L (12-78); AST/SGOT 44 U/L (15-37); BLOOD UREA NITROGEN 3 mg/dl (7-18); CALCIUM 8.2 mg/dl (8.5-10.1); CARBON DIOXIDE 25 mmol/L (21-32); CREATININE 0.85 mg/dl (0.60-1.40); GLUCOSE 78 mg/dl (70-99); POTASSIUM 3.6 mmol/L (3.5-5.1); SODIUM 138 mmol/L (136-145); TOTAL PROTEIN 6.7 gm/dl (6.4-8.2)
[2018-05-13] MEDS ORDERED: THIAMINE HCL 100 MG TAB PO STA (19:54)
[2018-05-13] MEDS ORDERED: METOPROLOL TARTRATE 1 MG/ML VIAL IV STA (20:19)
[2018-05-13] MEDS ORDERED: SODIUM CHLORIDE 0.9% 1000ML 1,000 ML IV STA (20:20)
[2018-05-13] MEDS ORDERED: DILTIAZEM BOLUS / DRIP IV STA (20:37)
[2018-05-13] MEDS ORDERED: DILTIAZEM HCL 5 MG/ML 5 ML VIAL ONE (20:38)
[2018-05-13] MEDS ORDERED: DILTIAZEM BOLUS FROM BAG IV ONE (20:45)
[2018-05-13] MEDS ORDERED: DILTIAZEM HCL INJ 125 MG in DEXTROSE 5% 100ML IV PRN (20:45)
[2018-05-13] MEDS ORDERED: MAGNESIUM SULFATE 1GM / D5W 100 ML IV STA (20:54)
[2018-05-13] MEDS ORDERED: DIGOXIN IV 250 MCG in SYRINGE 9 ML IV ONE ×2 (21:00→22:15)
[2018-05-13] MEDS ORDERED: POTASSIUM CHLORIDE 10 MEQ TABCR PO ONE (21:00)
[2018-05-13] MEDS ORDERED: MULTI-VITAMIN INFUSION INJ 10 ML, THIAMINE HCL INJ 100 MG, FoLIC ACID INJ 1 MG in SODIU... IV ONE (21:00)
[2018-05-13] MEDS ORDERED: MAGNESIUM SULFATE 1GM / D5W 1 GM BAG IV ONE (21:25)
[2018-05-13] MEDS ORDERED: DIGOXIN INJ 500 MCG/2 ML AMP ONE ×2 (21:25→22:21)
[2018-05-13] MEDS ORDERED: POTASSIUM CHLORIDE 10 MEQ TABCR ONE (21:25)
--- NOTE | 2018-05-13 22:22 | History and Physical ---
History & Physical Date & Time of Service: May 13, 2018 at 22:14 Chief Complaint: Detox request Primary Care Physician: No Doctor, Assigned History of Present Illness 52-year-old male who presents the ED with an alcohol detox request. Patient is well-known to the ED staff as well as our service for admissions for alcohol intoxication and atrial fibrillation with RVR. Patient is currently not prescribed any rate controlling medications secondary to overdoses in the past. He is also not deemed to be an anticoagulation candidate secondary to his alcoholism and fall risk. Patient was most recently seen in the ED 2 days ago with acute alcohol intoxication and suicidal thoughts after getting into an argument with his son. Per ER documentation from that time patient was threatening to jump off a bridge. During his stay in the ER at that time he was able to sober up and was requesting discharge. He was deemed stable for discharge at that time. Patient returns today with a request to "help me with my drinking." He reports he has constant left-sided chest pain that radiates into his back. He reports the pain was radiating into his neck yesterday. He reports long periods of walking do exacerbate his pain. He reports heart palpitations. He has associated shortness of breath. He denies lightheadedness , dizziness, diaphoresis, syncopal events. No abdominal pain, nausea, vomiting , diarrhea. He denies the recent illnesses, fevers, chills. In the ED, patient was found to be in atrial fibrillation with RVR. He was given IVF, IV metoprolol, IV Cardizem, and started on a banana bag. Alcohol level is 279 and he was mildly hypomagnesemic, otherwise labs are unremarkable. Past Medical/Surgical History Medical Problems: (1) Alcohol dependence Status: Chronic (2) Alcoholic cirrhosis of liver without ascites Status: Chronic (3) Asthma, mild persistent Status: Chronic (4) Chronic anxiety Status: Chronic (5) Chronic pancreatitis Status: Chronic (6) COPD, mild Status: Chronic (7) Esophageal varices Status: Chronic (8) Hypothyroidism Status: Chronic (9) Paroxysmal atrial fibrillation Status: Chronic (10) Portal vein thrombosis Status: Chronic (11) Pulmonary HTN Status: Chronic (12) Thrombocytopenia Status: Chronic (13) Tobacco abuse Status: Chronic Surgical Problems: (1) H/O colonoscopy Status: Chronic (2) History of cholecystectomy Permanent Comment: 2009 Status: Chronic (3) History of esophagogastroduodenoscopy (EGD) Permanent Comment: 12/15/2014- Small varices. Erosive duodenitis. Status: Chronic Family History Blood clots Diabetes mellitus MOTHER FH: CAD (coronary artery disease) FATHER BROTHER FH: leukemia AUNT Hypertension Social History Smoking Status: Current Every Day Smoker Alcohol Use: heavy (5 32oz beers/day) Immunizations History of Influenza Vaccine: Yes Influenza Vaccine Date: Oct 13, 2017 History of Pneumococcal: Yes Pneumococcal Date: February 21, 2010 Allergies Coded Allergies: Fentanyl (Verified Allergy, Intermediate, RASH ALL OVER BODY, 05/13/18) ALL OVER BODY Home Medications No Active Prescriptions or Reported Meds Review of Systems ROS per HPI, all other systems reviewed and negative Physical Exam Vital Signs Date Time Temp Pulse Resp B/P (MAP) Pulse Ox O2 Delivery O2 Flow Rate FiO2 05/13/18 21:32 108 05/13/18 20:29 117 05/13/18 20:27 126 114/83 05/13/18 20:15 125 25 91/68 95 Room Air 05/13/18 18:06 85 24 106/72 94 Room Air 05/13/18 18:01 88 18 104/71 94 Room Air 05/13/18 17:49 87 05/13/18 17:41 87 18 108/71 94 Room Air 05/13/18 17:30 96 Room Air 05/13/18 17:30 96 Room Air 05/13/18 17:15 36.8 47 18 121/68 96 Room Air General Appearance: WD/WN, no apparent distress Head: normocephalic, atraumatic Eyes: normal inspection, EOMI, sclerae normal ENT: hearing grossly normal, + pertinent finding (Because members moist) Neck: supple, no JVD, trachea midline Respiratory/Chest: lungs clear, normal breath sounds, no respiratory distress Cardiovascular: no edema, normal peripheral pulses, + irregularly irregular ( Heart rate in the 90s- low 100s) Abdomen/GI: normal bowel sounds, non tender, soft, no organomegaly Extremities/Musculoskelatal: normal inspection, no calf tenderness, normal capillary refill Neurologic/Psych: no motor/sensory deficits, alert, normal mood/affect, oriented x 3 Skin: normal color, warm/dry Diagnostics Laboratory Results Results Past 24 Hours Test 05/13/18 17:25 05/13/18 18:55 Range/Units Urine Color YELLOW Urine Appearance CLEAR CLEAR Urine pH 6.5 4.5-7.5 Urine Specific [place] 1.003 1.000-1.030 Urine Protein NEG NEG Urine Glucose (UA) NEG NEG Urine Ketones NEG NEG Urine Occult Blood NEG NEG Urine Nitrite NEG NEG Urine Bilirubin NEG NEG Urine Urobilinogen NEG NEG Urine Leukocyte Esterase NEG NEG Urine Opiates Screen NEG NEG Urine Methadone, Qualitative NEG NEG Urine Barbiturates NEG NEG Urine Phencyclidine (PCP) Level NEG NEG Ur Amphetamine/Methamphetamine NEG NEG MDMA (Ecstasy) Screen NEG NEG Urine Benzodiazepines Screen NEG NEG Urine Cocaine Metabolite NEG NEG Urine Marijuana (THC) NEG NEG White Blood Count 8.97 4.8-10.8 K/uL Red Blood Count 4.29 4.7-6.1 M/uL Hemoglobin 15.2 14.0-18.0 g/dL Hematocrit 42.6 42-52 % Mean Corpuscular Volume 99.3 80-100 fL Mean Corpuscular Hemoglobin 35.4 25-34 pg Mean Corpuscular Hemoglobin Concent 35.7 32-36 g/dl Platelet Count 132 130-400 K/uL Mean Platelet Volume 11.6 7.4-10.4 fL Neutrophils (%) (Auto) 47.0 % Lymphocytes (%) (Auto) 36.7 % Monocytes (%) (Auto) 11.1 % Eosinophils (%) (Auto) 4.1 % Basophils (%) (Auto) 0.9 % Neutrophils # (Auto) 4.21 1.4-6.5 K/uL Lymphocytes # (Auto) 3.29 1.2-3.4 K/uL Monocytes # (Auto) 1.00 0.11-0.59 K/uL Eosinophils # (Auto) 0.37 0-0.5 K/uL Basophils # (Auto) 0.08 0-0.2 K/uL RDW Standard Deviation 46.7 36.4-46.3 fL RDW Coefficient of Variation 12.9 11.5-14.5 % Immature Granulocyte % (Auto) 0.2 % Immature Granulocyte # (Auto) 0.02 0.00-0.02 K/uL Sodium Level 138 136-145 mmol/L Potassium Level 3.6 3.5-5.1 mmol/L Chloride Level 106 98-107 mmol/L Carbon Dioxide Level 25 21-32 mmol/L Anion Gap 7.0 3-11 mmol/L Blood Urea Nitrogen 3 7-18 mg/dl Creatinine 0.85 0.60-1.40 mg/dl Est Creatinine Clear Calc Drug Dose 87.4 ml/min Estimated GFR () 115.3 Estimated GFR (Non- 99.5 BUN/Creatinine Ratio 3.8 10-20 Random Glucose 78 70-99 mg/dl Calcium Level 8.2 8.5-10.1 mg/dl Magnesium Level 1.7 1.8-2.4 mg/dl Total Bilirubin 1.4 0.2-1 mg/dl Direct Bilirubin 0.4 0-0.2 mg/dl Aspartate Amino Transf (AST/SGOT) 44 15-37 U/L Alanine Aminotransferase (ALT/SGPT) 24 12-78 U/L Alkaline Phosphatase 103 45-117 U/L Troponin I < 0.015 0-0.045 ng/ml Total Protein 6.7 6.4-8.2 gm/dl Albumin 2.4 3.4-5.0 gm/dl Thyroid Stimulating Hormone (TSH) 3.640 0.300-4.500 uIu/ml Ethyl Alcohol mg/dL 279.4 0-3 mg/dl Diagnostic Radiology CHEST/ABD X-RAY IMPRESSION: 1. Pulmonary vessel prominence may indicate underlying volume overload. 2. Nodular opacities at the lung bases, right greater than left, may also be vascular or cyst less likely nodular infiltrates. 3. No radiographic evidence of acute intra-abdominal pathology. 4. Suspected colonic diverticulum in the left lower quadrant. Impression Assessment and Plan Please see Dr. Salazar's addendum for further details. Resuscitation Status VTE Prophylaxis Will order VTE Prophylaxis: Yes Assessment/Plan IM ATTENDING : Patient seen and examined. History obtained from patient. Preceding documentation by NIXON Katz, reviewed. FINAL ASSESSMENT AND PLAN as follow: 1. Recurrent atrial fibrillation precipitated by alcohol abuse Patient deemed to be a poor candidate for both necessary rate control and anti- thrombotic medications given history of impulsivity, recklessness (past history hx beta-johnny overdose), thrombocytopenia from alcoholic cirrhosis 2. Alcoholic cirrhosis, no overt decompensation. Patient claims he wants to quit drinking for good now. 3. Ongoing tobacco abuse PCU digoxin p.r.n. low-dose Cardizem for rate control inpatient Cardiology consultation if patient does not convert by AM RE recurrent AF DT precautions Nicotine patch PT/OT eval. Social service RE discharge planning. DVT prophylaxis, SCDs, RE thrombocytopenia. Full code.
[2018-05-13] MEDS ORDERED: OXYCODONE HCL IR 5 MG TAB (IMMEDIATE RELEASE) PO PRN (23:30)
[2018-05-13] MEDS ORDERED: ACETAMINOPHEN 325 MG TAB PO PRN (23:30)
[2018-05-13] MEDS ORDERED: NITROGLYCERIN 0.4 MG SL PER TAB CHARGE SL PRN (23:30)
[2018-05-13] MEDS ORDERED: LORAZEPAM 2 MG/ML 1 ML VIAL IV PRN (23:30)
[2018-05-13] MEDS ORDERED: PROCHLORPERAZINE INJ 5 MG in SYRINGE 4 ML IV PRN (23:30)
[2018-05-13] MEDS ORDERED: ALBUMIN HUMAN 25% 12.5 GM/50 ML VIAL IV ONE (23:36)
[2018-05-14] VITALS (7 sets, daily range): BP systolic 100–126; BP diastolic 65–81; PULSE 67–125; TEMP 36.6–36.9; O2SAT 94–99; Ht 165.1 cm; Wt 67.0 kg
[2018-05-14] MEDS ORDERED: NSS + 20MEQ KCL 1000ML 1,000 ML IV ONE (01:15)
[2018-05-14] MEDS ORDERED: GABAPENTIN 600 MG TAB PO SCH (01:15)
[2018-05-14] MEDS ORDERED: MAGNESIUM SULFATE 1GM / D5W 100 ML IV SCH (01:15)
[2018-05-14] MEDS ORDERED: ALBUMIN HUMAN 25% 12.5 GM/50 ML VIAL IV SCH (01:15)
--- NOTE | 2018-05-14 03:29 | HISTORY & PHYSICAL EXAMINATION ---
DATE OF ADMISSION: 05/13/2018 IM ATTENDING : Patient seen and examined. History obtained from patient. Preceding documentation by NIXON Katz, reviewed. FINAL ASSESSMENT AND PLAN as follow: 1. Recurrent atrial fibrillation precipitated by alcohol abuse Patient deemed to be a poor candidate for both necessary rate control and anti- thrombotic medications given history of impulsivity, recklessness (past history hx beta-johnny overdose), thrombocytopenia from alcoholic cirrhosis 2. Alcoholic cirrhosis, no overt decompensation. Patient claims he wants to quit drinking for good now. 3. Ongoing tobacco abuse PCU digoxin p.r.n. low-dose Cardizem for rate control inpatient Cardiology consultation if patient does not convert by AM RE recurrent AF DT precautions PT/OT eval. Social service RE discharge planning. DVT prophylaxis, SCDs, RE thrombocytopenia. Full code. MTDD
[2018-05-14 06:21] LABS: BASO % 1.4 %; BASO ABS # 0.08 K/uL (0-0.2); EOS % 6.2 %; EOS ABS # 0.35 K/uL (0-0.5); HEMATOCRIT 44.9 % (42-52); HEMOGLOBIN 15.8 g/dL (14.0-18.0); IG# 0.01 K/uL (0.00-0.02); LYMPH % 35.1 %; LYMPH ABS # 1.98 K/uL (1.2-3.4); MEAN CELL VOLUME 99.6 fL (80-100); MEAN CORPUSCULAR HGB CONC 35.2 g/dl (32-36); MEAN PLATELET VOLUME 11.8 fL (7.4-10.4); MONO % 13.1 %; MONO ABS # 0.74 K/uL (0.11-0.59); NEUT ABS # 2.48 K/uL (1.4-6.5); PLATELET COUNT 130 K/uL (130-400); RED CELL DISTRIBUTION WIDTH SD 47.1 fL (36.4-46.3); WHITE BLOOD COUNT 5.64 K/uL (4.8-10.8)
[2018-05-14 07:05] LABS: BLOOD UREA NITROGEN 3 mg/dl (7-18); CALCIUM 7.8 mg/dl (8.5-10.1); CARBON DIOXIDE 25 mmol/L (21-32); CREATININE 0.72 mg/dl (0.60-1.40); GLUCOSE 80 mg/dl (70-99); POTASSIUM 3.8 mmol/L (3.5-5.1); SODIUM 143 mmol/L (136-145)
[2018-05-14] MEDS: GABAPENTIN 600MG Q6H DOSE PO SCH ×2 (07:37→14:04)
[2018-05-14] MEDS: THIAMINE HCL 100 MG TAB PO SCH (07:38)
[2018-05-14] MEDS: DILTIAZEM HCL 120 MG CAPCR PO SCH (07:38)
[2018-05-14] MEDS: MULTIVITAMIN TAB PO SCH (07:39)
[2018-05-14] MEDS: NICOTINE 21 MG/24 HR TDSY TD SCH (07:39)
--- NOTE | 2018-05-14 14:54 | Progress Note ---
Medicine Progress Note Date & Time of Visit: May 14, 2018 at 14:29. Subjective Pt was seen and examined Lying in bed with no distress Pt said that he does have tenderness in his left side of his chess that is reproducible on palpation Denies any SOB, Palpitation, dizziness and fever Objective Last 8 Hrs Date Time Temp Pulse Resp B/P (MAP) Pulse Ox O2 Delivery O2 Flow Rate FiO2 05/14/18 10:48 36.9 114 20 126/81 (96) 99 Nasal Cannula 1.0 05/14/18 08:00 Nasal Cannula 2.0 05/14/18 07:40 125 100/69 (79) 05/14/18 07:06 36.7 101 20 120/80 (93) 94 Room Air Physical Exam: General- No acute distress Head- atraumatic Eyes- PERRL, EOMI ENT- oropharynx clear Neck- supple, no JVD Lungs- clear to auscultation Heart- irregular rhythm Abdomen- normal bowel sounds, soft Extremities- no calf tenderness, no tremor Neuro- alert, oriented x 3; PERRL, EOMI Skin- warm & dry Laboratory Results: Last 24 Hours Test 05/13/18 17:25 05/13/18 18:55 05/13/18 23:51 05/14/18 05:30 Urine Color YELLOW Urine Appearance CLEAR Urine pH 6.5 Urine Specific [place] 1.003 Urine Protein NEG Urine Glucose (UA) NEG Urine Ketones NEG Urine Occult Blood NEG Urine Nitrite NEG Urine Bilirubin NEG Urine Urobilinogen NEG Urine Leukocyte Esterase NEG Urine Opiates Screen NEG Urine Methadone, Qualitative NEG Urine Barbiturates NEG Urine Phencyclidine (PCP) Level NEG Ur Amphetamine/Methamphetamine NEG MDMA (Ecstasy) Screen NEG Urine Benzodiazepines Screen NEG Urine Cocaine Metabolite NEG Urine Marijuana (THC) NEG White Blood Count 8.97 K/uL 5.64 K/uL Red Blood Count 4.29 M/uL 4.51 M/uL Hemoglobin 15.2 g/dL 15.8 g/dL Hematocrit 42.6 % 44.9 % Mean Corpuscular Volume 99.3 fL 99.6 fL Mean Corpuscular Hemoglobin 35.4 pg 35.0 pg Mean Corpuscular Hemoglobin Concent 35.7 g/dl 35.2 g/dl Platelet Count 132 K/uL 130 K/uL Mean Platelet Volume 11.6 fL 11.8 fL Neutrophils (%) (Auto) 47.0 % 44.0 % Lymphocytes (%) (Auto) 36.7 % 35.1 % Monocytes (%) (Auto) 11.1 % 13.1 % Eosinophils (%) (Auto) 4.1 % 6.2 % Basophils (%) (Auto) 0.9 % 1.4 % Neutrophils # (Auto) 4.21 K/uL 2.48 K/uL Lymphocytes # (Auto) 3.29 K/uL 1.98 K/uL Monocytes # (Auto) 1.00 K/uL 0.74 K/uL Eosinophils # (Auto) 0.37 K/uL 0.35 K/uL Basophils # (Auto) 0.08 K/uL 0.08 K/uL RDW Standard Deviation 46.7 fL 47.1 fL RDW Coefficient of Variation 12.9 % 13.0 % Immature Granulocyte % (Auto) 0.2 % 0.2 % Immature Granulocyte # (Auto) 0.02 K/uL 0.01 K/uL Sodium Level 138 mmol/L 143 mmol/L Potassium Level 3.6 mmol/L 3.8 mmol/L Chloride Level 106 mmol/L 113 mmol/L Carbon Dioxide Level 25 mmol/L 25 mmol/L Anion Gap 7.0 mmol/L 5.0 mmol/L Blood Urea Nitrogen 3 mg/dl 3 mg/dl Creatinine 0.85 mg/dl 0.72 mg/dl Est Creatinine Clear Calc Drug Dose 87.4 ml/min 103.2 ml/min Estimated GFR () 115.3 123.4 Estimated GFR (Non- 99.5 106.5 BUN/Creatinine Ratio 3.8 4.3 Random Glucose 78 mg/dl 80 mg/dl Calcium Level 8.2 mg/dl 7.8 mg/dl Magnesium Level 1.7 mg/dl 2.3 mg/dl Total Bilirubin 1.4 mg/dl Direct Bilirubin 0.4 mg/dl Aspartate Amino Transf (AST/SGOT) 44 U/L Alanine Aminotransferase (ALT/SGPT) 24 U/L Alkaline Phosphatase 103 U/L Troponin I < 0.015 ng/ml < 0.015 ng/ml Pro-B-Type Natriuretic Peptide 25 pg/ml Total Protein 6.7 gm/dl Albumin 2.4 gm/dl Thyroid Stimulating Hormone (TSH) 3.640 uIu/ml Ethyl Alcohol mg/dL 279.4 mg/dl Lactic Acid Level 1.4 mmol/L Test 05/14/18 12:17 Troponin I < 0.015 ng/ml Assessment & Plan Paroxysmal atrial fibrillation Seems to be triggered by alcohol Not on any medication due to pt poor compliant with meds History of beta-johnny drug overdose Not a candidate for anticoagulant since pt is an alcoholic due to high risk of falls and hx of low platelet Converted to NSR few minutes ago Rate control Received Cardizem and digoxin in the ER Continue Cardizem po Echo was done on 04/07/18 * The left ventricle is normal in size. * There is mild concentric left ventricular hypertrophy. * Left ventricular systolic function is normal. * Ejection Fraction = 60-65%. Chest pain Mostly Atypical Reproducible on palpation Troponinx3 negative Pain med with tylenol Continue monitor in tele Alcoholism On Alcohol withdrawal protocol with gabapentin Monitor for sign of alcohol withdrawal and seizures Continue thiamine and folic acid Fall precaution PT/OT Tobacco use Disorder Counseled on tobacco cessation Continue nicotine patch Hypothyroidism TSH wnl DVT px on SCDs CODE STATUS FULL CODE Current Inpatient Medications: Current Inpatient Medications Medications (Trade) Dose Ordered Sig/Justin Route Start Time Stop Time Status Last Admin Dose Admin Diltiazem HCl 125 mg/Dextrose 125 ml @ 0 mls/hr Q0M PRN IV 05/13/18 20:45 06/12/18 20:44 Future Hold Acetaminophen (Tylenol Tab) 325 mg Q6H PRN PO 05/13/18 23:30 06/12/18 23:29 Nitroglycerin (Nitrostat Tab) 0.4 mg UD PRN SL 05/13/18 23:30 06/12/18 23:29 Lorazepam (Ativan Inj) PRN Dosing -Active Protocol Q1H PRN IV 05/13/18 23:30 06/12/18 23:29 Oxycodone HCl (Roxicodone Immediate Rel Tab) 5 mg Q6H PRN PO 05/13/18 23:30 05/27/18 23:29 Prochlorperazine Edisylate 5 mg/ Syringe 5 ml @ 5 mls/min Q6H PRN IV 05/13/18 23:30 06/12/18 23:29 Nicotine (Nicoderm Cq 21MG Patch) 1 patch QAM TD 05/14/18 09:00 06/13/18 08:59 Miscellaneous (Remove Nicoderm Patch) 1 ea HS N/A 05/14/18 21:00 06/13/18 20:59 Thiamine HCl (Vitamin B-1 Tab) 100 mg QAM PO 05/14/18 09:00 06/13/18 08:59 05/14/18 07:38 100 MG Multivitamins (Multivitamin Tab) 1 tab QAM PO 05/14/18 09:00 06/13/18 08:59 05/14/18 07:39 1 TAB Folic Acid (Folvite Tab) 1 mg QAM PO 05/14/18 09:00 06/13/18 08:59 05/14/18 07:37 1 MG Diltiazem HCl (Cardizem Cd Cap) 120 mg QAM PO 05/14/18 09:00 06/13/18 08:59 05/14/18 07:38 120 MG Gabapentin (Neurontin Tab) 600 mg Q8H PO 05/14/18 22:00 05/15/18 14:01 Gabapentin (Neurontin Tab) 600 mg Q12H PO 05/16/18 02:00 05/16/18 14:01 Gabapentin (Neurontin Tab) 600 mg Q24H PO 05/17/18 14:00 05/17/18 14:01
[2018-05-14] MEDS ORDERED: LIDODERM (LIDOCAINE) PATCH 5% TD ONE (15:00)
[2018-05-14] MEDS: GABAPENTIN 600MG Q8H DOSE PO SCH (20:51)
[2018-05-15 00:23] VITALS: BP 110/68; PULSE 78; TEMP 37; O2SAT 97
[2018-05-15 03:07] VITALS: BP 105/61; PULSE 63; TEMP 36.8; O2SAT 98
[2018-05-15] MEDS: GABAPENTIN 600MG Q8H DOSE PO SCH (06:35)
[2018-05-15 06:50] VITALS: BP 109/66; PULSE 72; TEMP 36.6; O2SAT 97
[2018-05-15] MEDS: NICOTINE 21 MG/24 HR TDSY TD SCH (08:21)
[2018-05-15] MEDS: DILTIAZEM HCL 120 MG CAPCR PO SCH (08:21)
[2018-05-15] MEDS: THIAMINE HCL 100 MG TAB PO SCH (08:21)
[2018-05-15] MEDS: MULTIVITAMIN TAB PO SCH (08:21)
[2018-05-15] MEDS ORDERED: LIDODERM (LIDOCAINE) PATCH 5% TD SCH (09:00)
[2018-05-15 10:27] VITALS: BP 109/66; PULSE 72; TEMP 36.6; O2SAT 97
[2018-05-15 10:46] VITALS: BP 121/74; PULSE 94; TEMP 36.6; O2SAT 94
--- NOTE | 2018-05-15 10:59 | Progress Note ---
Internal Med Progress Note Date of Service: May 15, 2018. Provider Documentation: SUBJECTIVE: Patient had no telemetry events overnight.Continued to be in sinus rhythm. Was transferred off telemetry service. Patient denies shortness of breath. Patient denies problems with urination or bowel movements. Patient denies chest pain. When patient was seen again on the medical bell, patient was already dressed and reported he was ready to leave. Medical physician provided patient with discharge medications and follow up appointments. Patient was agreeable for medical doctor to arrange these things before leaving the hospital OBJECTIVE: General- No acute distress Head- atraumatic Eyes- EOMI ENT- oropharynx clear Neck- supple, no JVD Lungs- clear to auscultation Heart- regular rhythm Abdomen- normal bowel sounds, soft Extremities- no calf tenderness, no tremor Neuro- alert, oriented x 3; PERRL, EOMI Skin- warm & dry ASSESSMENT & PLAN: Hospital Course and Plans Patient presented with constant left-sided chest pain that radiates into his back. Patient was admitted for atypical chest pain and was found to have Paroxysmal atrial fibrillation which appeared to be induced by alcohol. Patient received Cardizem and digoxin in the ER on 05/13/18 and while on the medical telemetry bell with Cardizem, he went back to normal sinus rhythm by 05/14/18. Patient has had negative troponins during the hospital stay and acute coronary syndrome ruled out Patient is to be discharged with medication for Cardizem for hear rate control. Patient was not started on anticoagulation as there is concern for for medication nonadherence, and could be fall risk from alcohol misuse Patient was counseled on reducing alcohol use. He did not have alcohol withdrawal during this admission but was empirically on on alcohol withdrawal protocol with gabapentin and was on thiamine and folic acid. Prescription provided for thiamine and Folic acid Patient is ambulatory Patient is counseled on tobacco cessation for tobacco use. Prescription provided for nicotine patch Patient has history of Hypothyroidism however TSH is within normal levels 3.64 Discharge Instructions Please cut down on alcohol use. Please take thiamine and folic acid daily Please use nicotine patches to help cut down on tobacco use. Please take Cardizem medication daily until follow up with primary care doctor Please follow up with your clinic appointments. Upcoming clinic appointments 05/21/2018 11:00 AM Katharine Gorman DO [facility] 05/28/2018 11:00 AM Hilda Nieves DO Endoscopy, [facility] Vital Signs: Date Time Temp Pulse Resp B/P (MAP) Pulse Ox O2 Delivery O2 Flow Rate FiO2 05/15/18 10:46 36.6 94 20 121/74 (90) 94 Room Air 05/15/18 10:27 36.6 72 18 97 05/15/18 08:00 Nasal Cannula 2.0 05/15/18 06:50 36.6 72 18 109/66 (80) 97 1.0 05/15/18 03:07 36.8 63 16 105/61 (76) 98 1.0 05/15/18 00:23 37.0 78 18 110/68 (82) 97 05/14/18 23:59 Nasal Cannula 2.0 05/14/18 19:05 36.6 67 18 112/69 (83) 97 Nasal Cannula 1.0 05/14/18 16:00 Nasal Cannula 2.0 05/14/18 15:05 36.9 76 18 111/65 (80) 97 Nasal Cannula 1.0 Lab Results: Results Past 24 Hours Test 05/14/18 12:17 Range/Units Troponin I < 0.015 0-0.045 ng/ml
[2018-05-15] MEDS ORDERED: FLV1 PO (11:05)
[2018-05-15] MEDS ORDERED: DILT-202 PO (11:05)
[2018-05-15] MEDS ORDERED: NICO21DI4 TD (11:05)
[2018-05-15] MEDS ORDERED: THIA100T10 PO (11:05)
--- NOTE | 2018-05-15 11:22 | Discharge Instructions ---
Discharge Instructions Date of Service May 15, 2018. Admission Reason for Admission: Atrial Fibrillation Discharge Discharge Diagnosis / Problem: atrial fibrillation, alcohol use, tobacco use Discharge Goals Goal(s): Improve function, Improve disease control Activity Recommendations Activity Limitations: per Instructions/Follow-up section . Instructions / Follow-Up Instructions / Follow-Up Hospital Course and Plans Patient presented with constant left-sided chest pain that radiates into his back. Patient was admitted for atypical chest pain and was found to have Paroxysmal atrial fibrillation which appeared to be induced by alcohol. Patient received Cardizem and digoxin in the ER on 05/13/18 and while on the medical telemetry bell with Cardizem, he went back to normal sinus rhythm by 05/14/18. Patient has had negative troponins during the hospital stay and acute coronary syndrome ruled out Patient is to be discharged with medication for Cardizem for hear rate control. Patient was not started on anticoagulation as there is concern for for medication nonadherence, and could be fall risk from alcohol misuse Patient was counseled on reducing alcohol use. He did not have alcohol withdrawal during this admission but was empirically on on alcohol withdrawal protocol with gabapentin and was on thiamine and folic acid. Prescription provided for thiamine and Folic acid Patient is ambulatory Patient is counseled on tobacco cessation for tobacco use. Prescription provided for nicotine patch Patient has history of Hypothyroidism however TSH is within normal levels 3.64 Discharge Instructions Please cut down on alcohol use. Please take thiamine and folic acid daily Please use nicotine patches to help cut down on tobacco use. Please take Cardizem medication daily until follow up with primary care doctor Please follow up with your clinic appointments. Upcoming clinic appointments 05/21/2018 11:00 AM Katharine Gorman DO [facility] 05/28/2018 11:00 AM Hilda Nieves DO Endoscopy, [facility] Current Hospital Diet Patient's current hospital diet: AHA Diet (Heart Healthy) Discharge Diet Recommended Diet: AHA Diet (Heart Healthy) Pending Studies Studies pending at discharge: no Laboratory Results Hemoglobin A1c Test 04/06/18 17:26 Range/Units Estimated Average Glucose 91 mg/dl Hemoglobin A1c 4.8 4.5-5.6 % Lipid Panel Test 04/07/18 05:07 Range/Units Triglycerides Level 68 0-150 mg/dl Cholesterol Level 99 0-200 mg/dl HDL Cholesterol 47 mg/dl Cholesterol/HDL Ratio 2.1 LDL Cholesterol, Calculated 38 mg/dl Medical Emergencies . Who to Call and When: Medical Emergencies: If at any time you feel your situation is an emergency, please call 911 immediately. . Non-Emergent Contact Non-Emergency issues call your: Primary Care Provider . . "Provider Documentation" section prepared by Alexis Murray. .
--- NOTE | 2018-05-15 11:23 | Discharge Summary ---
Discharge Summary Date of Service May 15, 2018. Discharge Summary Admission Date: May 13, 2018 at 23:14 Discharge Date: May 15, 2018 Discharge Disposition: Home Principal Diagnosis: atrial fibrillation, alcohol use, tobacco use Medication Reconciliation New Medications: Diltiazem HCl (Diltiazem Cd) 120 Mg Capcr 120 MG PO QAM for 30 Days, #30 TAB Folic Acid (Folic Acid) 1 Mg Tab 1 MG PO QAM for 30 Days, #30 TAB Nicotine (Nicoderm Cq) 21 Mg/24 Hr Dis 1 PATCH TD QAM for 30 Days, #30 PATCH Thiamine Hcl (Vitamin B-1) 100 Mg Tab 100 MG PO QAM for 30 Days, #30 TAB Admission Information HPI (per Admitting provider): 52-year-old male who presents the ED with an alcohol detox request. Patient is well-known to the ED staff as well as our service for admissions for alcohol intoxication and atrial fibrillation with RVR. Patient is currently not prescribed any rate controlling medications secondary to overdoses in the past. He is also not deemed to be an anticoagulation candidate secondary to his alcoholism and fall risk. Patient was most recently seen in the ED 2 days ago with acute alcohol intoxication and suicidal thoughts after getting into an argument with his son. Per ER documentation from that time patient was threatening to jump off a bridge. During his stay in the ER at that time he was able to sober up and was requesting discharge. He was deemed stable for discharge at that time. Patient returns today with a request to "help me with my drinking." He reports he has constant left-sided chest pain that radiates into his back. He reports the pain was radiating into his neck yesterday. He reports long periods of walking do exacerbate his pain. He reports heart palpitations. He has associated shortness of breath. He denies lightheadedness , dizziness, diaphoresis, syncopal events. No abdominal pain, nausea, vomiting , diarrhea. He denies the recent illnesses, fevers, chills. In the ED, patient was found to be in atrial fibrillation with RVR. He was given IVF, IV metoprolol, IV Cardizem, and started on a banana bag. Alcohol level is 279 and he was mildly hypomagnesemic, otherwise labs are unremarkable. Physical Exam (per Admitting): General Appearance: WD/WN, no apparent distress Head: normocephalic, atraumatic Eyes: normal inspection, EOMI, sclerae normal ENT: hearing grossly normal, + pertinent finding (Because members moist) Neck: supple, no JVD, trachea midline Respiratory/Chest: lungs clear, normal breath sounds, no respiratory distress Cardiovascular: no edema, normal peripheral pulses, + irregularly irregular (Heart rate in the 90s- low 100s) Abdomen/GI: normal bowel sounds, non tender, soft, no organomegaly Extremities/Musculoskelatal: normal inspection, no calf tenderness, normal capillary refill Neurologic/Psych: no motor/sensory deficits, alert, normal mood/affect, oriented x 3 Skin: normal color, warm/dry Hospital Course Hospital Course and Plans Patient presented with constant left-sided chest pain that radiates into his back. Patient was admitted for atypical chest pain and was found to have Paroxysmal atrial fibrillation which appeared to be induced by alcohol. Patient received Cardizem and digoxin in the ER on 05/13/18 and while on the medical telemetry bell with Cardizem, he went back to normal sinus rhythm by 05/14/18. Patient has had negative troponins during the hospital stay and acute coronary syndrome ruled out Patient is to be discharged with medication for Cardizem for hear rate control. Patient was not started on anticoagulation as there is concern for for medication nonadherence, and could be fall risk from alcohol misuse Patient was counseled on reducing alcohol use. He did not have alcohol withdrawal during this admission but was empirically on on alcohol withdrawal protocol with gabapentin and was on thiamine and folic acid. Prescription provided for thiamine and Folic acid Patient is ambulatory Patient is counseled on tobacco cessation for tobacco use. Prescription provided for nicotine patch Patient has history of Hypothyroidism however TSH is within normal levels 3.64 Discharge Instructions Please cut down on alcohol use. Please take thiamine and folic acid daily Please use nicotine patches to help cut down on tobacco use. Please take Cardizem medication daily until follow up with primary care doctor Please follow up with your clinic appointments. Upcoming clinic appointments 05/21/2018 11:00 AM Katharine Gorman DO [facility] 05/28/2018 11:00 AM Hilda Nieves DO Endoscopy, [facility] Total time spent on discharge = 40 minutes This includes examination of the patient, discharge planning, medication reconciliation, and communication with other providers. Discharge Instructions see above
[2018-05-15 11:30] VITALS: BP 121/74; PULSE 94; TEMP 36.6; O2SAT 94
[2018-05-16] MEDS ORDERED: GABAPENTIN 600MG Q12H DOSE PO SCH (02:00)
[2018-05-17] MEDS ORDERED: GABAPENTIN 600MG Q24H DOSE PO SCH (14:00)
== END 2018-05-15 11:52 | disposition home or self-care (01) | DRG 897 ==
LOC: C.EDB 17:14 → C.2T 23:14 → ENRESERV 23:45 → C.MS2W 05-15 10:28
PROVIDERS: ADMIT Internal Medicine; ATTEND Hospitalist
DX: F10.288 Alcohol dependence with other alcohol-induced disorder (principal); I48.0 Paroxysmal atrial fibrillation; D69.59 Other secondary thrombocytopenia; K70.30 Alcoholic cirrhosis of liver without ascites; F10.229 Alcohol dependence with intoxication, unspecified; J44.9 Chronic obstructive pulmonary disease, unspecified; J45.30 Mild persistent asthma, uncomplicated; I25.2 Old myocardial infarction; E03.9 Hypothyroidism, unspecified; F17.200 Nicotine dependence, unspecified, uncomplicated; Z91.81 History of falling; Y90.9 Presence of alcohol in blood, level not specified; Z88.5 Allergy status to narcotic agent; Z83.3 Family history of diabetes mellitus; Z82.49 Family history of ischemic heart disease and other diseases of the circulatory system; Z80.6 Family history of leukemia

== ENCOUNTER 2018-05-22 17:35 | Emergency (ER) | payer OTHER ==
[~2018-05-22] VITALS: Ht 165.1 cm; Wt 75.2 kg
[~2018-05-22 17:35] MED LIST changes: +ATRIN INH; +DILT-202 PO; +FLV1 PO; +NICO21DI4 TD; +THIA100T10 PO; -[UNRECOGNIZED DRUG - REMARK] PO
[2018-05-22 17:45] VITALS: TEMP 36.7; Ht 165.1 cm; Wt 75.2 kg
[2018-05-22 17:48] VITALS: O2SAT 95
[2018-05-22] MEDS ORDERED: ACETAMINOPHEN 500 MG TAB PO STA (18:40)
[2018-05-22 19:01] LABS: HEMATOCRIT 42.4 % (42-52); HEMOGLOBIN 15.1 g/dL (14.0-18.0); MEAN CELL VOLUME 98.4 fL (80-100); MEAN CORPUSCULAR HGB CONC 35.6 g/dl (32-36); MEAN PLATELET VOLUME 11.5 fL (7.4-10.4); PLATELET COUNT 140 K/uL (130-400); RED CELL DISTRIBUTION WIDTH CV 12.5 % (11.5-14.5); RED CELL DISTRIBUTION WIDTH SD 45.3 fL (36.4-46.3); WHITE BLOOD COUNT 6.42 K/uL (4.8-10.8)
[2018-05-22 19:28] LABS: ALBUMIN 2.5 gm/dl (3.4-5.0); CALCIUM 8.2 mg/dl (8.5-10.1); CREATININE 0.77 mg/dl (0.60-1.40); POTASSIUM 3.4 mmol/L (3.5-5.1); TOTAL PROTEIN 6.9 gm/dl (6.4-8.2)
--- NOTE | 2018-05-22 19:33 | DIAGNOSTIC IMAGING REPORT ---
CHEST ONE VIEW PORTABLE CLINICAL HISTORY: Chest pain. COMPARISON STUDY: Chest radiograph May 13, 2018. FINDINGS: Lung volumes are normal. There is no pneumothorax or pleural effusion. Cardiac size is normal. Mediastinal contours are normal. There is no consolidation to suggest pneumonia. Pulmonary vascularity is within normal limits. Rightward deviation of the trachea is due to known left lobe thyroid goiter. This is unchanged. IMPRESSION: No acute cardiopulmonary findings. Electronically signed by: Chuy Rodríguez M.D. 05/22/2018 7:32 PM Dictated Date/Time: 05/22/2018 7:31 PM
--- NOTE | 2018-05-22 19:37 | EMERGENCY ROOM VISIT NOTE ---
History Report prepared by López: Pratik New Under the Supervision of: Dr. Salazar Martinez M.D. First contact with patient: 18:33 Chief Complaint: CHEST PAIN Stated Complaint: Chest Pain Nursing Triage Summary: pt arrives via ALS for chest pain per EMS pt called 911 for sudden onset of chest pain/epigastric pain pt reports HX of irregular heart beats/IL pt arrives to room ambulatory from ALS litter pt amb to bathroom and back to room steadily without distress pt is alert and oriented, has a strong odor of alcohol History of Present Illness The patient is a 52 year old male who presents to the Emergency Room with complaints of central chest pain that he describes as a fluttering that began yesterday at 1230, 30 hours ago. He rates the pain as an 8/10 and the pain is constant. He also notes that the pain radiates to his back and there is nothing that helps with the pain. The patient reports a history of atrial fibrillation, a coronary catheterization 3-4 years ago and a high heart rate for which he takes diltiazem. He also notes that he takes all of his medications everyday and never misses a dose. The patient also reports that he has liver problems due to alcohol consumption and that the last drink he consumed was about 8 hours ago today. He prevents by EMS. Source of History: patient Onset: Yesterday Position: chest Symptom Intensity: 8/10 Quality: other (fluttering) Timing: constant Associated Symptoms: + back pain Review of Systems See HPI for pertinent positives & negatives. A total of 10 systems reviewed and were otherwise negative. Past Medical & Surgical Medical Problems: (1) Alcohol dependence (2) Alcoholic cirrhosis of liver without ascites (3) Asthma, mild persistent (4) Atrial fibrillation (5) Chronic anxiety (6) Chronic pancreatitis (7) COPD, mild (8) Esophageal varices (9) Heart attack (10) Hypothyroidism (11) Paroxysmal atrial fibrillation (12) Portal vein thrombosis (13) Pulmonary HTN (14) Thrombocytopenia (15) Tobacco abuse Surgical Problems: (1) H/O colonoscopy (2) History of cholecystectomy (3) History of esophagogastroduodenoscopy (EGD) Family History Blood clots Diabetes mellitus MOTHER FH: CAD (coronary artery disease) FATHER BROTHER FH: leukemia AUNT Hypertension Social History Smoking Status: Current Every Day Smoker Alcohol Use: heavy Housing Status: lives alone Current/Historical Medications Scheduled Diltiazem HCl (Diltiazem Cd), 120 MG PO QAM Folic Acid (Folic Acid), 1 MG PO QAM Thiamine Hcl (Vitamin B-1), 100 MG PO QAM Scheduled PRN Ipratropium [place] (Atrovent Hfa), 2 PUFFS INH BID PRN for SOB/Wheezing Allergies Coded Allergies: Fentanyl (Verified Allergy, Intermediate, RASH ALL OVER BODY, 05/22/18) ALL OVER BODY Physical Exam Vital Signs Date Time Temp Pulse Resp B/P (MAP) Pulse Ox O2 Delivery O2 Flow Rate FiO2 05/22/18 17:48 95 Room Air 05/22/18 17:46 95 Room Air 05/22/18 17:45 36.7 78 16 117/70 98 Room Air Physical Exam GENERAL: Patient is in no acute distress. HEENT: No acute trauma, normocephalic atraumatic, mucous membranes moist, no nasal congestion, no scleral icterus. NECK: No stridor, no adenopathy, no meningismus, trachea is midline. LUNGS: Clear to auscultation bilaterally, no wheeze, no rhonchi, breath sounds equal. HEART: Without murmurs gallops or rubs, regular rate and rhythm. CHEST: Tenderness over left anterior chest wall ABDOMEN: Soft, nontender, bowel sounds positive, no hernias, no peritonitis. EXTREMITIES: No cyanosis or edema, full range of motion of all the joints without pain or difficulty, no signs for acute trauma. NEUROLOGIC: Oriented x 3, no acute motor or sensory deficits, no focal weakness. SKIN: No rash, no jaundice, no diaphoresis. Medical Decision & Procedures ER Provider Diagnostic Interpretation: Radiology results as stated below per my review and radiologist interpretation: CHEST ONE VIEW PORTABLE CLINICAL HISTORY: Chest pain. COMPARISON STUDY: Chest radiograph May 13, 2018. FINDINGS: Lung volumes are normal. There is no pneumothorax or pleural effusion. Cardiac size is normal. Mediastinal contours are normal. There is no consolidation to suggest pneumonia. Pulmonary vascularity is within normal limits. Rightward deviation of the trachea is due to known left lobe thyroid goiter. This is unchanged. IMPRESSION: No acute cardiopulmonary findings. Electronically signed by: Chuy Rodríguez M.D. 05/22/2018 7:32 PM Dictated Date/Time: 05/22/2018 7:31 PM Laboratory Results 05/22/18 18:49 05/22/18 18:49 Test 05/22/18 18:49 05/22/18 18:57 Red Blood Count 4.31 M/uL (4.7-6.1) Mean Corpuscular Volume 98.4 fL (80-100) Mean Corpuscular Hemoglobin 35.0 pg (25-34) Mean Corpuscular Hemoglobin Concent 35.6 g/dl (32-36) RDW Standard Deviation 45.3 fL (36.4-46.3) RDW Coefficient of Variation 12.5 % (11.5-14.5) Mean Platelet Volume 11.5 fL (7.4-10.4) Anion Gap 8.0 mmol/L (3-11) Est Creatinine Clear Calc Drug Dose 105.1 ml/min Estimated GFR () 120.1 Estimated GFR (Non- 103.6 BUN/Creatinine Ratio 5.6 (10-20) Calcium Level 8.2 mg/dl (8.5-10.1) Magnesium Level 1.9 mg/dl (1.8-2.4) Total Bilirubin 1.1 mg/dl (0.2-1) Aspartate Amino Transf (AST/SGOT) 42 U/L (15-37) Alanine Aminotransferase (ALT/SGPT) 22 U/L (12-78) Alkaline Phosphatase 103 U/L (45-117) Total Protein 6.9 gm/dl (6.4-8.2) Albumin 2.5 gm/dl (3.4-5.0) Globulin 4.4 gm/dl (2.5-4.0) Albumin/Globulin Ratio 0.6 (0.9-2) Lipase 216 U/L (73-393) Bedside Troponin I < 0.030 ng/ml (0-0.045) Laboratory results reviewed by me. ECG Per My Interpretation Indication: chest pain Rate (beats per minute): 74 Rhythm: normal sinus Findings: other (No ST elevation, No PVC) ED Course 1829: The patient was evaluated in room A7. A complete history and physical exam was performed. 1924: The patient left the emergency department before official discharge. Medical Decision Differential Diagnosis Musculoskeletal pain, myocardial infarction, dysrhythmia, atrial fibrillation/ flutter, electrolyte imbalance, anemia, pneumothorax, aortic dissection, and pulmonary embolism There is no leukocytosis or concerning anemia. No significant electrolyte abnormality or kidney failure. There were a few very subtle liver enzyme elevations consistent with his liver disease. No evidence for pancreatitis. EKG shows a normal sinus rhythm, no acute ischemia. Cardiac enzyme testing 1 is not consistent with acute cardiac injury. Chest x-ray does not show mediastinal widening, pneumonia or pneumothorax. On my exam, the patient did have reproducible left-sided anterior chest pain. Patient was initially ordered for Tylenol for pain, he did not want this medication, he asked for morphine. I did not think the patient required morphine for his reproducible left-sided chest pain. When the morphine was not administered, the patient got up and left. In short, I think the patient's pain was very likely musculoskeletal. His cardiac workup has returned benign. I am concerned about potential drug- seeking behavior as the patient left after narcotic medication was declined. Medication Reconcilliation Current Medication List: was personally reviewed by me Blood Pressure Screening Patient's blood pressure: Normal blood pressure Impression Primary Impression: Palpitation Additional Impression: Left sided chest pain Scribe Attestation The scribe's documentation has been prepared under my direction and personally reviewed by me in its entirety. I confirm that the note above accurately reflects all work, treatment, procedures, and medical decision making performed by me. Departure Information Dispostion Other (left before labs were reviewed or papers signed) Referrals No Doctor, Assigned (PCP) Forms Call Back Authorization, HOME CARE DOCUMENTATION FORM, IMPORTANT VISIT INFORMATION Patient Instructions My [facility] Problem Qualifiers
[2018-05-22 19:54] VITALS: BP 98/68; PULSE 70; O2SAT 93
== END 2018-05-22 19:30 | disposition home or self-care (01) ==
LOC: EDBD 17:35 → C.EDA 17:36
DX: R07.89 Other chest pain (principal); R00.2 Palpitations; I48.0 Paroxysmal atrial fibrillation; F17.200 Nicotine dependence, unspecified, uncomplicated; Z88.6 Allergy status to analgesic agent; Z82.49 Family history of ischemic heart disease and other diseases of the circulatory system

== ENCOUNTER 2019-11-10 21:58 | Inpatient (IN) ==
[2019-11-10] MEDS ORDERED: SODIUM CHLORIDE 0.9% 1000ML 1,000 ML IV ONE (22:28)
[2019-11-10] MEDS ORDERED: DEXAMETHASONE **PF** INJ 10 MG/ML VIAL IV ONE (22:28)
[2019-11-10] MEDS ORDERED: ALBUT/IPRATROP 3MG/0.5MG NEB 3 ML VIAL NEB STA ×2 (22:28→23:04)
[2019-11-10 22:35] LABS: Basophils # (auto) 0.11 K/uL (0-0.2); Basophils % (auto) 1.3 %; Eosinophils % (auto) 3.5 %; Hematocrit (blood only) 44.1 % (42-52); Hemoglobin 15.7 g/dL (14.0-18.0); Immature Granulocytes # (auto) 0.02 K/uL (0.00-0.02); Immature Granulocytes % (auto) 0.2 %; Lymphocytes # (auto) 3.85 K/uL (1.2-3.4); Lymphocytes % (auto) 44.7 %; Mean Corpuscular Hgb Conc 35.6 g/dL (32-36); Monocytes # (auto) 1.02 K/uL (0.11-0.59); Monocytes % (auto) 11.8 %; Neutrophils # (auto) 3.31 K/uL (1.4-6.5); Neutrophils % (auto) 38.5 %; Platelet Count 161 K/uL (130-400); RDW Coefficient of Variation 13.3 % (11.5-14.5); RDW Standard Deviation 50.8 fL (36.4-46.3); Red Blood Count 4.24 M/uL (4.7-6.1); White Blood Count 8.61 K/uL (4.8-10.8)
--- NOTE | 2019-11-10 22:36 | Emergency Department Note ---
History of Present Illness General Chief complaint: Shortness of Breath/Dyspnea Stated complaint: SOB History of Present Illness This 53-year-old presents to the ER complaining of fever, cough and dyspnea Location: Chest Quality: Hard to breathe Severity: Moderate Duration: Today Timing: Today Context: Patient was concerned and came in Modifying factors: better with nothing; worse with rest Patient states he had a low-grade fever today. He has been drinking alcohol. He has not followed up for his thyroid abnormality from last visit. Patient denies chest pain, abdominal pain, vomiting, diarrhea. Home Medications Home Medications Medication Instructions Recorded Confirmed Type No Known Home Medications 11/10/19 11/10/19 History Allergies Allergy/AdvReac Type Severity Reaction Status Date / Time fentanyl Allergy Intermediate RASH ALL Verified 11/10/19 23:26 OVER BODY Past Med/Surg History Medical History Alcohol dependence (Chronic) Alcoholic cirrhosis of liver without ascites (Chronic) Chronic obstructive pulmonary disease Esophageal varices (Chronic) Hypertension Hypothyroidism (Chronic) Myocardial Infarction On home oxygen therapy Paroxysmal atrial fibrillation (Chronic) Pulmonary embolism Seizure Surgical History H/O colonoscopy (Chronic) History of cholecystectomy (Chronic) "2009" History of esophagogastroduodenoscopy (EGD) (Chronic) "12/15/2014- Small varices. Erosive duodenitis." Social History Preferred Language: Andorran Communication Ability: Effective Visual Impairment: No Limitations Tool Supervisor Required: No Beliefs That Will Affect Care: None Current Living Situation: Parent Feels Safe at Home: Yes Smoking Status: Current every day smoker Tobacco Type: cigarettes ; Cigarettes Per Day: 20 ; Hx Alcohol Use: Yes Alcohol type: beer Hx Substance Use: Yes (ETOH abuse) substance use type: does not use Review of Systems A total of 10 systems reviewed and were otherwise negative Physical Exam Vital Signs Vital Signs - 24 hr 11/10/19 22:02 11/10/19 22:11 11/10/19 22:12 Temperature Temperature Source Pulse Rate 94 H 86 88 Pulse Rate [Right Radial] Pulse Rate from SpO2 Sensor 91 H 88 88 Respiratory Rate 16 20 16 Respiratory Effort / Characteristics Respiratory Depth Blood Pressure 129/77 125/85 Blood Pressure [Right Arm] Blood Pressure Mean 96 105 Blood Pressure Mean [Right Arm] Pulse Oximetry 96 97 96 Oxygen Delivery Method Sepsis Recent Fever Within 48 Hours Sepsis New/Unexplained Change in Mental Status Sepsis Action Taken by Nursing 11/10/19 22:14 11/10/19 22:30 11/10/19 22:31 Temperature 36.7 C Temperature Source Oral Pulse Rate 78 91 H 92 H Pulse Rate [Right Radial] Pulse Rate from SpO2 Sensor 91 H 92 H Respiratory Rate 20 18 16 Respiratory Effort / Characteristics Non-Labored Respiratory Depth Blood Pressure 129/77 117/71 Blood Pressure [Right Arm] Blood Pressure Mean 94 82 Blood Pressure Mean [Right Arm] Pulse Oximetry 97 94 92 Oxygen Delivery Method Room Air Sepsis Recent Fever Within 48 Hours No Sepsis New/Unexplained Change in Mental Status No Sepsis Action Taken by Nursing No Action Required 11/10/19 22:34 11/10/19 22:39 11/10/19 23:00 Temperature Temperature Source Pulse Rate 98 H Pulse Rate [Right Radial] 89 Pulse Rate from SpO2 Sensor 99 H Respiratory Rate 20 18 Respiratory Effort / Characteristics Non-Labored Spontaneous Respiratory Depth Blood Pressure 116/68 Blood Pressure [Right Arm] Blood Pressure Mean 81 Blood Pressure Mean [Right Arm] Pulse Oximetry 97 94 95 Oxygen Delivery Method Room Air Room Air Sepsis Recent Fever Within 48 Hours Sepsis New/Unexplained Change in Mental Status Sepsis Action Taken by Nursing 11/10/19 23:03 11/10/19 23:19 11/10/19 23:31 Temperature Temperature Source Pulse Rate Pulse Rate [Right Radial] 104 H 96 H Pulse Rate from SpO2 Sensor Respiratory Rate 20 18 Respiratory Effort / Characteristics Non-Labored Spontaneous Respiratory Depth Blood Pressure Blood Pressure [Right Arm] 116/68 Blood Pressure Mean Blood Pressure Mean [Right Arm] 84 Pulse Oximetry 95 97 95 Oxygen Delivery Method Room Air Room Air Room Air Sepsis Recent Fever Within 48 Hours Sepsis New/Unexplained Change in Mental Status Sepsis Action Taken by Nursing 11/11/19 00:47 Temperature Temperature Source Pulse Rate Pulse Rate [Right Radial] 108 H Pulse Rate from SpO2 Sensor Respiratory Rate 22 Respiratory Effort / Characteristics Non-Labored Spontaneous Respiratory Depth Normal Blood Pressure Blood Pressure [Right Arm] 135/73 Blood Pressure Mean Blood Pressure Mean [Right Arm] 93 Pulse Oximetry 95 Oxygen Delivery Method Room Air Sepsis Recent Fever Within 48 Hours Sepsis New/Unexplained Change in Mental Status Sepsis Action Taken by Nursing PHYSICAL EXAM: Vital Signs: Reviewed Nurse's notes. Oxygen saturation was 97 % on room air. GENERAL: White male with EtOH odor, Alert, oriented and coherent. The patient is able to speak in complete sentences. NECK: Supple, enlarged thyroid CHEST: Symmetrical expansion. no retractions no accessory muscle use. HEART: Regular rate and normal heart sounds LUNGS: Breath sounds equal but significantly diminished in intensity on both sides. Bilateral wheezes heard but no rales or pleuritic rub. SKIN: The skin was without rashes, erythema, edema, or bruising. There is no tenting of the skin. Capillary reflex less than 2 seconds. HEAD: Normocephalic atraumatic. EARS: External auditory canals clear, tympanic membranes pearly tan without erythema or effusion bilaterally. EYES: Pupils equal round and reactive to light and accommodation. Conjunctivae without injection, sclerae without icterus. Extraocular movements intact. NOSE: Patent, turbinates without inflammation or discharge. No sinus tenderness. MOUTH: Mucous membranes mildly dry. Pharynx without erythema or exudate. Uvula midline. Airway patent. Tongue does not deviate. ABDOMEN: Positive bowel sounds x 4. Normal tympanic percussion. Soft, nontender, without masses or organomegaly. Carrasco sign negative. No guarding or rebound tenderness. MUSCULOSKELETAL: No muscle atrophy, erythema, or edema noted. NEURO: Patient was alert and oriented to person place and time. Normal sensation to light and sharp touch. No focal neurological deficits. Course Administered Medications Sodium Chloride (Nss 1000ml) 1,000 mls @ 999 mls/hr IV .Q1H1M ONE Stop: 11/11/19 01:16 Last Admin: 11/11/19 00:43 Dose: 999 mls/hr Documented by: [id number] Ioversol (Optiray 320 125ml) 125 ml IV ONCE PRN PRN Reason: Interaction Checking Stop: 11/14/19 23:47 Last Admin: 11/10/19 23:49 Dose: 106 ml Documented by: [id number] Discontinued Medications Albuterol (Duoneb) 3 ml NEB NOW STA Stop: 11/10/19 22:29 Last Admin: 11/10/19 22:38 Dose: 3 ml Documented by: [id number] Albuterol (Duoneb) 3 ml NEB NOW STA Stop: 11/10/19 23:05 Last Admin: 11/10/19 23:18 Dose: 3 ml Documented by: [id number] Chlordiazepoxide HCl (Librium) 50 mg PO NOW ONE Stop: 11/11/19 00:23 Last Admin: 11/11/19 00:44 Dose: 50 mg Documented by: [id number] Dexamethasone Sodium Phosphate (Decadron Pf) 10 mg IV NOW ONE Stop: 11/10/19 22:29 Last Admin: 11/10/19 22:46 Dose: 10 mg Documented by: [id number] Sodium Chloride (Nss 1000ml) 1,000 mls @ 999 mls/hr IV .Q1H1M ONE Stop: 11/10/19 23:28 Last Infusion: 11/10/19 23:47 Dose: 0 mls/hr Documented by: [id number] Admin: 11/10/19 22:46 Dose: 999 mls/hr Documented by: [id number] Piperacillin Sod/Tazobactam Sod (Zosyn) 4.5 gm in 120 mls @ 240 mls/hr IV NOW ONE Stop: 11/11/19 00:51 Last Admin: 11/11/19 00:45 Dose: 240 mls/hr Documented by: [id number] Thiamine HCl 100 mg/ Syringe 10 mls @ 2 mls/min IV NOW STA Stop: 11/11/19 00:36 Last Admin: 11/11/19 01:02 Dose: 2 mls/min Documented by: [id number] Potassium Chloride (Klor-Con M20) 20 meq PO NOW STA Stop: 11/11/19 00:33 Last Admin: 11/11/19 00:45 Dose: 20 meq Documented by: [id number] Medical Decision Making Medical Records Attestation: I reviewed the patient's medical records. Home Medications Current Medication List: was personally reviewed by me Laboratory Data Attestation: I reviewed the patient's lab results. Result diagrams: 11/10/19 22:09 11/10/19 22:09 Lab Results 11/10/19 11/10/19 11/10/19 Range/Units 22:09 22:09 22:09 WBC 8.61 (4.8-10.8) K/uL RBC 4.24 L (4.7-6.1) M/uL Hgb 15.7 (14.0-18.0) g/dL Hct 44.1 (42-52) % MCV 104.0 H (80-100) fL MCH 37.0 H (25-34) pg MCHC 35.6 (32-36) g/dL RDW Std Deviation 50.8 H (36.4-46.3) fL RDW Coeff of Hernandez 13.3 (11.5-14.5) % Plt Count 161 (130-400) K/uL MPV 11.0 H (7.4-10.4) fL Immature Gran % (Auto) 0.2 % Neut % (Auto) 38.5 % Lymph % (Auto) 44.7 % [place] % (Auto) 11.8 % Eos % (Auto) 3.5 % Baso % (Auto) 1.3 % Immature Gran # (Auto) 0.02 (0.00-0.02) K/uL Neut # (Auto) 3.31 (1.4-6.5) K/uL Lymph # (Auto) 3.85 H (1.2-3.4) K/uL [place] # (Auto) 1.02 H (0.11-0.59) K/uL Eos # (Auto) 0.30 (0-0.5) K/uL Baso # (Auto) 0.11 (0-0.2) K/uL PT 12.9 H (9.0-12.0) Seconds INR 1.3 H (0.9-1.1) APTT 29.8 (21.0-31.0) Seconds PTT Ratio 1.1 Sodium 141 (136-145) mmol/L Potassium 3.4 L (3.5-5.1) mmol/L Chloride 108 H (98-107) mmol/L Carbon Dioxide 27 (21-32) mmol/L Anion Gap 6.0 (3-11) BUN 4 L (7-18) mg/dl Creatinine 0.83 (0.6-1.4) mg/dl Est Cr Clr Drug Dosing 88.5 ml/min Est GFR ( Amer) 115.6 Est GFR (Non-Af Amer) 99.8 BUN/Creatinine Ratio 4.7 L (10-20) Glucose 63 L (70-99) mg/dl POC Glucose (70-99) mg/dl Lactate (0.4-2.0) mmol/L Calcium 8.1 L (8.5-10.1) mg/dl Magnesium 1.9 (1.8-2.4) mg/dl Total Bilirubin 1.4 H (0.2-1) mg/dl AST 68 H (15-37) U/L ALT 30 (12-78) U/L Alkaline Phosphatase 113 (45-117) U/L Troponin I < 0.015 (0-0.045) ng/ml Total Protein 8.1 (6.4-8.2) gm/dl Albumin 2.2 L (3.4-5.0) gm/dl Globulin 5.9 H (2.5-4.0) gm/dl Albumin/Globulin Ratio 0.4 L (0.9-2) Urine Color Urine Appearance (Clear) Urine pH (4.5-7.5) Ur Specific [place] (1.000-1.030) Urine Protein (Negative) Urine Glucose (UA) (Negative) Urine Ketones (Negative) Urine Blood (Negative) Urine Nitrite (Negative) Urine Bilirubin (Negative) Urine Urobilinogen (Negative) Ur Leukocyte Esterase (Negative) Ethyl Alcohol mg/dL (0-3) mg/dl Influenza Type A (PCR) (Neg) Influenza Type B (PCR) (Neg) 11/10/19 11/10/19 11/10/19 Range/Units 22:09 23:00 23:21 WBC (4.8-10.8) K/uL RBC (4.7-6.1) M/uL Hgb (14.0-18.0) g/dL Hct (42-52) % MCV (80-100) fL MCH (25-34) pg MCHC (32-36) g/dL RDW Std Deviation (36.4-46.3) fL RDW Coeff of Hernandez (11.5-14.5) % Plt Count (130-400) K/uL MPV (7.4-10.4) fL Immature Gran % (Auto) % Neut % (Auto) % Lymph % (Auto) % [place] % (Auto) % Eos % (Auto) % Baso % (Auto) % Immature Gran # (Auto) (0.00-0.02) K/uL Neut # (Auto) (1.4-6.5) K/uL Lymph # (Auto) (1.2-3.4) K/uL [place] # (Auto) (0.11-0.59) K/uL Eos # (Auto) (0-0.5) K/uL Baso # (Auto) (0-0.2) K/uL PT (9.0-12.0) Seconds INR (0.9-1.1) APTT (21.0-31.0) Seconds PTT Ratio Sodium (136-145) mmol/L Potassium (3.5-5.1) mmol/L Chloride (98-107) mmol/L Carbon Dioxide (21-32) mmol/L Anion Gap (3-11) BUN (7-18) mg/dl Creatinine (0.6-1.4) mg/dl Est Cr Clr Drug Dosing ml/min Est GFR ( Amer) Est GFR (Non-Af Amer) BUN/Creatinine Ratio (10-20) Glucose (70-99) mg/dl POC Glucose (70-99) mg/dl Lactate 2.3 H* (0.4-2.0) mmol/L Calcium (8.5-10.1) mg/dl Magnesium (1.8-2.4) mg/dl Total Bilirubin (0.2-1) mg/dl AST (15-37) U/L ALT (12-78) U/L Alkaline Phosphatase (45-117) U/L Troponin I (0-0.045) ng/ml Total Protein (6.4-8.2) gm/dl Albumin (3.4-5.0) gm/dl Globulin (2.5-4.0) gm/dl Albumin/Globulin Ratio (0.9-2) Urine Color Yellow Urine Appearance Clear (Clear) Urine pH 7.0 (4.5-7.5) Ur Specific [place] 1.005 (1.000-1.030) Urine Protein Negative (Negative) Urine Glucose (UA) Negative (Negative) Urine Ketones Negative (Negative) Urine Blood Negative (Negative) Urine Nitrite Negative (Negative) Urine Bilirubin Negative (Negative) Urine Urobilinogen Negative (Negative) Ur Leukocyte Esterase Negative (Negative) Ethyl Alcohol mg/dL (0-3) mg/dl Influenza Type A (PCR) Neg for Influ A (Neg) Influenza Type B (PCR) Neg for Influ B (Neg) 11/10/19 11/11/19 Range/Units 23:21 00:24 WBC (4.8-10.8) K/uL RBC (4.7-6.1) M/uL Hgb (14.0-18.0) g/dL Hct (42-52) % MCV (80-100) fL MCH (25-34) pg MCHC (32-36) g/dL RDW Std Deviation (36.4-46.3) fL RDW Coeff of Hernandez (11.5-14.5) % Plt Count (130-400) K/uL MPV (7.4-10.4) fL Immature Gran % (Auto) % Neut % (Auto) % Lymph % (Auto) % [place] % (Auto) % Eos % (Auto) % Baso % (Auto) % Immature Gran # (Auto) (0.00-0.02) K/uL Neut # (Auto) (1.4-6.5) K/uL Lymph # (Auto) (1.2-3.4) K/uL [place] # (Auto) (0.11-0.59) K/uL Eos # (Auto) (0-0.5) K/uL Baso # (Auto) (0-0.2) K/uL PT (9.0-12.0) Seconds INR (0.9-1.1) APTT (21.0-31.0) Seconds PTT Ratio Sodium (136-145) mmol/L Potassium (3.5-5.1) mmol/L Chloride (98-107) mmol/L Carbon Dioxide (21-32) mmol/L Anion Gap (3-11) BUN (7-18) mg/dl Creatinine (0.6-1.4) mg/dl Est Cr Clr Drug Dosing ml/min Est GFR ( Amer) Est GFR (Non-Af Amer) BUN/Creatinine Ratio (10-20) Glucose (70-99) mg/dl POC Glucose 135 H (70-99) mg/dl Lactate (0.4-2.0) mmol/L Calcium (8.5-10.1) mg/dl Magnesium (1.8-2.4) mg/dl Total Bilirubin (0.2-1) mg/dl AST (15-37) U/L ALT (12-78) U/L Alkaline Phosphatase (45-117) U/L Troponin I (0-0.045) ng/ml Total Protein (6.4-8.2) gm/dl Albumin (3.4-5.0) gm/dl Globulin (2.5-4.0) gm/dl Albumin/Globulin Ratio (0.9-2) Urine Color Urine Appearance (Clear) Urine pH (4.5-7.5) Ur Specific [place] (1.000-1.030) Urine Protein (Negative) Urine Glucose (UA) (Negative) Urine Ketones (Negative) Urine Blood (Negative) Urine Nitrite (Negative) Urine Bilirubin (Negative) Urine Urobilinogen (Negative) Ur Leukocyte Esterase (Negative) Ethyl Alcohol mg/dL 266.7 H (0-3) mg/dl Influenza Type A (PCR) (Neg) Influenza Type B (PCR) (Neg) Imaging Data Attestation: I personally reviewed and interpreted this imaging study as follows: MDM Narrative Prior records/ancillary studies reviewed. Triage Nursing notes reviewed. Additional history obtained from the EMS The patient's history was concerning for respiratory difficulties. Differential diagnosis: Etiologies such as infections, reactive airway disease, pneumonia, pneumothorax, COPD, CHF, cardiac ischemia, pulmonary embolism, musculoskeletal, gastrointestinal, as well as others were entertained. Physical examination: As above. ER treatment provided: An order was placed for continuous cardiac monitoring. The monitor shows a rate of 60-110 with a normal sinus rhythm. IV fluids, nebulizer, steroids, Zosyn, Librium On reassessment the patient felt better. Diagnostic interpretation by me: The electrocardiogram was negative for acute ischemic or pathologic change. Normal sinus, normal levels, no acute ST-T wave changes. Impression normal sinus rhythm triple-vessel EKG ordered for dyspnea I think arrhythmia is unlikely. EKG shows normal sinus rhythm with no interval abnormalities such as QT prolongation or WPW. There are no findings to suggest Brugada syndrome. Cardiac monitoring in the emergency department reveals no tachycardic or bradycardic dysrhythmia. Hypertrophic cardiomyopathy was considered but there are no clear historical elements pointing toward this. EKG is not suggestive. The QRS voltage is not extremely large and there are no suggestive Q waves. The labs revealed no leukocytosis, elevated lactic acid. Low blood sugar and patient was fed and repeat is improved Blood cultures pending, elevated alcohol Imaging studies: Chest x-ray with right lower lobe pneumonia per my interpretation. CTA CHEST: No pulmonary embolus. Mild pulmonary emphysema. Minimal nodularity/pneumonitis right lung base. Tiny nodular focus or atelectasis in the left lower lobe Large heterogeneous thyroid gland with lesions. Gynecomastia. Cirrhosis. Cholecystectomy. Node/collaterals in the upper abdomen. Radiologist: Trevor Trimble M.D. Consultation: A consultation was placed with Dr Salazar, hospitalist. The case was discussed and diagnostics were reviewed. The patient was evaluated in the ER for further treatment. This appears to be consistent with pneumonia with elevated lactic and alcohol intoxication. Patient started antibiotics. He ready felt shaky. He is written for [facility]. Patient is well-known to this ER. He was admitted to the medical service. Repeat lactic was ordered. By the evaluation outlined above emergent etiologies such as CHF, cardiac ischemia, pulmonary embolism, reactive airway disease, pneumothorax, musculoskeletal, as well as others were deemed relatively unlikely. Patient was strongly encouraged to follow-up for his thyroid abnormalities as it was concerning for possible cancer. The pt informed about the findings as listed above. All questions were answered and pleased with the treatment. The chart was completed utilizing [employer] Speech voice recognition software. Grammatical errors, random word insertions, pronoun errors, and incomplete sentences are an occassional consequence of this system due to software limitations, ambient noise, and hardware issues. Any formal questions or concerns about the content, text, or information contained within the body of this dictation should be directly addressed to the physician graduate assistant athletic trainer for clarification. Impression & Plan Pneumonia, Alcohol abuse Discharge Plan Visit Data Chief Complaint: Shortness of Breath/Dyspnea Stated Complaint: SOB ED Provider: Bandar Haji ED Midlevel Provider: Tanisha Sykes Discharge Problem: Pneumonia, Alcohol abuse Patient Disposition: Being Evaluated by Hospitalist Condition: Fair Forms Stand Alone Forms: [employer] Prescriptions Prescriptions: No Action No Known Home Medications RF: 0 Referrals Referrals: PCP,NO [Primary Care Provider] - Discharge Problem: Pneumonia Qualifiers: Pneumonia type: due to unspecified organism Laterality: right Lung location: lower lobe of lung Qualified Code(s): J18.9 - Pneumonia, unspecified organism
[2019-11-10 22:44] LABS: INR 1.3 (0.9-1.1); Partial Thromboplastin Ratio 1.1; Partial Thromboplastin Time 29.8 Seconds (21.0-31.0); Prothrombin Time 12.9 Seconds (9.0-12.0)
[2019-11-10 22:49] LABS: Appearance Urine Clear (Clear); Bilirubin Urine Negative (Negative); Blood Urine Negative (Negative); Color Urine Yellow; Glucose Urine UA Negative (Negative); Ketones Urine Negative (Negative); Leukocyte Esterase Urine Negative (Negative); Nitrite Urine Negative (Negative); Protein Urine Negative (Negative); Specific Gravity Urine 1.005 (1.000-1.030); Urobilinogen Urine Negative (Negative)
[2019-11-10 23:06] LABS: Alanine Aminotransferase 30 U/L (12-78); Albumin Level 2.2 gm/dl (3.4-5.0); Aspartate Aminotransferase 68 U/L (15-37); BUN Creatinine Ratio 4.7 (10-20); Blood Urea Nitrogen 4 mg/dl (7-18); Calcium 8.1 mg/dl (8.5-10.1); Carbon Dioxide 27 mmol/L (21-32); Chloride 108 mmol/L (98-107); Creatinine Clr Calc Pharmacy 88.5 ml/min; Est GFR (African American) 115.6; Est GFR (Non-African American) 99.8; Glucose 63 mg/dl (70-99); Magnesium 1.9 mg/dl (1.8-2.4); Potassium 3.4 mmol/L (3.5-5.1); Sodium 141 mmol/L (136-145)
[2019-11-10 23:11] LABS: Albumin Globulin Ratio 0.4 (0.9-2); Alkaline Phosphatase 113 U/L (45-117); Bilirubin,Total 1.4 mg/dl (0.2-1); Globulin 5.9 gm/dl (2.5-4.0); Total Protein 8.1 gm/dl (6.4-8.2); Troponin I < 0.015 ng/ml (0-0.045)
[2019-11-10 23:46] LABS: Influenza A virus by PCR Neg for Influ A (Neg); Influenza B virus by PCR Neg for Influ B (Neg)
[2019-11-10] MEDS ORDERED: OPTIRAY 320 125ml IV PRN (23:48)
[2019-11-11] MEDS ORDERED: SODIUM CHLORIDE 0.9% 1000ML 1,000 ML IV ONE (00:16)
[2019-11-11] MEDS ORDERED: PIPERACILL/TAZOBAC CONSULT ACTIVE PRN (00:22)
[2019-11-11] MEDS ORDERED: chlordiazePOXIDE HCl 25 MG CAP PO ONE (00:22)
[2019-11-11] MEDS ORDERED: PIPERACILLIN/TAZOBACTAM 4.5 GM/120 ML BAG IV ONE (00:22)
[2019-11-11] MEDS ORDERED: POTASSIUM CHLORIDE 20 MEQ TABCR PO STA (00:32)
[2019-11-11] MEDS ORDERED: THIAMINE HCL 100 MG in SYRINGE 9 ML IV STA (00:32)
--- NOTE | 2019-11-11 01:16 | Emergency Department Note ---
Entered by Micheline Daly acting as a scribe for ED Provider Note The patient was seen and examined by myself in conjunction with the advanced care provider, Clare Sykes PA-C. I agree with the history, physical and findings as documented. Please see the note for disposition and details. Impression & Plan Pneumonia, Alcohol abuse Past Med/Surg History Medical History Alcohol dependence (Chronic) Alcoholic cirrhosis of liver without ascites (Chronic) Chronic obstructive pulmonary disease Esophageal varices (Chronic) Hypertension Hypothyroidism (Chronic) Myocardial Infarction On home oxygen therapy Paroxysmal atrial fibrillation (Chronic) Pulmonary embolism Seizure Surgical History H/O colonoscopy (Chronic) History of cholecystectomy (Chronic) "2009" History of esophagogastroduodenoscopy (EGD) (Chronic) "12/15/2014- Small varices. 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 Beliefs That Will Affect Care: None Current Living Situation: Parent Feels Safe at Home: Yes Smoking Status: Current every day smoker Tobacco Type: cigarettes ; Cigarettes Per Day: 20 ; Hx Alcohol Use: Yes Alcohol type: beer Hx Substance Use: Yes (ETOH abuse) substance use type: does not use Results & Data Vital Signs Vital Signs - 24 hr 11/10/19 22:02 11/10/19 22:11 11/10/19 22:12 Temperature Temperature Source Pulse Rate 94 H 86 88 Pulse Rate [Right Radial] Pulse Rate from SpO2 Sensor 91 H 88 88 Respiratory Rate 16 20 16 Respiratory Effort / Characteristics Respiratory Depth Blood Pressure 129/77 125/85 Blood Pressure [Right Arm] Blood Pressure Mean 96 105 Blood Pressure Mean [Right Arm] Pulse Oximetry 96 97 96 Oxygen Delivery Method Sepsis Recent Fever Within 48 Hours Sepsis New/Unexplained Change in Mental Status Sepsis Action Taken by Nursing 11/10/19 22:14 11/10/19 22:30 11/10/19 22:31 Temperature 36.7 C Temperature Source Oral Pulse Rate 78 91 H 92 H Pulse Rate [Right Radial] Pulse Rate from SpO2 Sensor 91 H 92 H Respiratory Rate 20 18 16 Respiratory Effort / Characteristics Non-Labored Respiratory Depth Blood Pressure 129/77 117/71 Blood Pressure [Right Arm] Blood Pressure Mean 94 82 Blood Pressure Mean [Right Arm] Pulse Oximetry 97 94 92 Oxygen Delivery Method Room Air Sepsis Recent Fever Within 48 Hours No Sepsis New/Unexplained Change in Mental Status No Sepsis Action Taken by Nursing No Action Required 11/10/19 22:34 11/10/19 22:39 11/10/19 23:00 Temperature Temperature Source Pulse Rate 98 H Pulse Rate [Right Radial] 89 Pulse Rate from SpO2 Sensor 99 H Respiratory Rate 20 18 Respiratory Effort / Characteristics Non-Labored Spontaneous Respiratory Depth Blood Pressure 116/68 Blood Pressure [Right Arm] Blood Pressure Mean 81 Blood Pressure Mean [Right Arm] Pulse Oximetry 97 94 95 Oxygen Delivery Method Room Air Room Air Sepsis Recent Fever Within 48 Hours Sepsis New/Unexplained Change in Mental Status Sepsis Action Taken by Nursing 11/10/19 23:03 11/10/19 23:19 11/10/19 23:31 Temperature Temperature Source Pulse Rate Pulse Rate [Right Radial] 104 H 96 H Pulse Rate from SpO2 Sensor Respiratory Rate 20 18 Respiratory Effort / Characteristics Non-Labored Spontaneous Respiratory Depth Blood Pressure Blood Pressure [Right Arm] 116/68 Blood Pressure Mean Blood Pressure Mean [Right Arm] 84 Pulse Oximetry 95 97 95 Oxygen Delivery Method Room Air Room Air Room Air Sepsis Recent Fever Within 48 Hours Sepsis New/Unexplained Change in Mental Status Sepsis Action Taken by Nursing 11/11/19 00:47 Temperature Temperature Source Pulse Rate Pulse Rate [Right Radial] 108 H Pulse Rate from SpO2 Sensor Respiratory Rate 22 Respiratory Effort / Characteristics Non-Labored Spontaneous Respiratory Depth Normal Blood Pressure Blood Pressure [Right Arm] 135/73 Blood Pressure Mean Blood Pressure Mean [Right Arm] 93 Pulse Oximetry 95 Oxygen Delivery Method Room Air Sepsis Recent Fever Within 48 Hours Sepsis New/Unexplained Change in Mental Status Sepsis Action Taken by Nursing Laboratory Data Result diagrams: 11/10/19 22:09 11/10/19 22:09 Lab Results 11/10/19 11/10/19 11/10/19 Range/Units 22:09 22:09 22:09 WBC 8.61 (4.8-10.8) K/uL RBC 4.24 L (4.7-6.1) M/uL Hgb 15.7 (14.0-18.0) g/dL Hct 44.1 (42-52) % MCV 104.0 H (80-100) fL MCH 37.0 H (25-34) pg MCHC 35.6 (32-36) g/dL RDW Std Deviation 50.8 H (36.4-46.3) fL RDW Coeff of Hernandez 13.3 (11.5-14.5) % Plt Count 161 (130-400) K/uL MPV 11.0 H (7.4-10.4) fL Immature Gran % (Auto) 0.2 % Neut % (Auto) 38.5 % Lymph % (Auto) 44.7 % Craig % (Auto) 11.8 % Eos % (Auto) 3.5 % Baso % (Auto) 1.3 % Immature Gran # (Auto) 0.02 (0.00-0.02) K/uL Neut # (Auto) 3.31 (1.4-6.5) K/uL Lymph # (Auto) 3.85 H (1.2-3.4) K/uL Craig # (Auto) 1.02 H (0.11-0.59) K/uL Eos # (Auto) 0.30 (0-0.5) K/uL Baso # (Auto) 0.11 (0-0.2) K/uL PT 12.9 H (9.0-12.0) Seconds INR 1.3 H (0.9-1.1) APTT 29.8 (21.0-31.0) Seconds PTT Ratio 1.1 Sodium 141 (136-145) mmol/L Potassium 3.4 L (3.5-5.1) mmol/L Chloride 108 H (98-107) mmol/L Carbon Dioxide 27 (21-32) mmol/L Anion Gap 6.0 (3-11) BUN 4 L (7-18) mg/dl Creatinine 0.83 (0.6-1.4) mg/dl Est Cr Clr Drug Dosing 88.5 ml/min Est GFR ( Amer) 115.6 Est GFR (Non-Af Amer) 99.8 BUN/Creatinine Ratio 4.7 L (10-20) Glucose 63 L (70-99) mg/dl POC Glucose (70-99) mg/dl Lactate (0.4-2.0) mmol/L Calcium 8.1 L (8.5-10.1) mg/dl Magnesium 1.9 (1.8-2.4) mg/dl Total Bilirubin 1.4 H (0.2-1) mg/dl AST 68 H (15-37) U/L ALT 30 (12-78) U/L Alkaline Phosphatase 113 (45-117) U/L Troponin I < 0.015 (0-0.045) ng/ml Total Protein 8.1 (6.4-8.2) gm/dl Albumin 2.2 L (3.4-5.0) gm/dl Globulin 5.9 H (2.5-4.0) gm/dl Albumin/Globulin Ratio 0.4 L (0.9-2) Urine Color Urine Appearance (Clear) Urine pH (4.5-7.5) Ur Specific [place] (1.000-1.030) Urine Protein (Negative) Urine Glucose (UA) (Negative) Urine Ketones (Negative) Urine Blood (Negative) Urine Nitrite (Negative) Urine Bilirubin (Negative) Urine Urobilinogen (Negative) Ur Leukocyte Esterase (Negative) Ethyl Alcohol mg/dL (0-3) mg/dl Influenza Type A (PCR) (Neg) Influenza Type B (PCR) (Neg) 11/10/19 11/10/19 11/10/19 Range/Units 22:09 23:00 23:21 WBC (4.8-10.8) K/uL RBC (4.7-6.1) M/uL Hgb (14.0-18.0) g/dL Hct (42-52) % MCV (80-100) fL MCH (25-34) pg MCHC (32-36) g/dL RDW Std Deviation (36.4-46.3) fL RDW Coeff of Hernandez (11.5-14.5) % Plt Count (130-400) K/uL MPV (7.4-10.4) fL Immature Gran % (Auto) % Neut % (Auto) % Lymph % (Auto) % Craig % (Auto) % Eos % (Auto) % Baso % (Auto) % Immature Gran # (Auto) (0.00-0.02) K/uL Neut # (Auto) (1.4-6.5) K/uL Lymph # (Auto) (1.2-3.4) K/uL Craig # (Auto) (0.11-0.59) K/uL Eos # (Auto) (0-0.5) K/uL Baso # (Auto) (0-0.2) K/uL PT (9.0-12.0) Seconds INR (0.9-1.1) APTT (21.0-31.0) Seconds PTT Ratio Sodium (136-145) mmol/L Potassium (3.5-5.1) mmol/L Chloride (98-107) mmol/L Carbon Dioxide (21-32) mmol/L Anion Gap (3-11) BUN (7-18) mg/dl Creatinine (0.6-1.4) mg/dl Est Cr Clr Drug Dosing ml/min Est GFR ( Amer) Est GFR (Non-Af Amer) BUN/Creatinine Ratio (10-20) Glucose (70-99) mg/dl POC Glucose (70-99) mg/dl Lactate 2.3 H* (0.4-2.0) mmol/L Calcium (8.5-10.1) mg/dl Magnesium (1.8-2.4) mg/dl Total Bilirubin (0.2-1) mg/dl AST (15-37) U/L ALT (12-78) U/L Alkaline Phosphatase (45-117) U/L Troponin I (0-0.045) ng/ml Total Protein (6.4-8.2) gm/dl Albumin (3.4-5.0) gm/dl Globulin (2.5-4.0) gm/dl Albumin/Globulin Ratio (0.9-2) Urine Color Yellow Urine Appearance Clear (Clear) Urine pH 7.0 (4.5-7.5) Ur Specific [place] 1.005 (1.000-1.030) Urine Protein Negative (Negative) Urine Glucose (UA) Negative (Negative) Urine Ketones Negative (Negative) Urine Blood Negative (Negative) Urine Nitrite Negative (Negative) Urine Bilirubin Negative (Negative) Urine Urobilinogen Negative (Negative) Ur Leukocyte Esterase Negative (Negative) Ethyl Alcohol mg/dL (0-3) mg/dl Influenza Type A (PCR) Neg for Influ A (Neg) Influenza Type B (PCR) Neg for Influ B (Neg) 11/10/19 11/11/19 Range/Units 23:21 00:24 WBC (4.8-10.8) K/uL RBC (4.7-6.1) M/uL Hgb (14.0-18.0) g/dL Hct (42-52) % MCV (80-100) fL MCH (25-34) pg MCHC (32-36) g/dL RDW Std Deviation (36.4-46.3) fL RDW Coeff of Hernandez (11.5-14.5) % Plt Count (130-400) K/uL MPV (7.4-10.4) fL Immature Gran % (Auto) % Neut % (Auto) % Lymph % (Auto) % Craig % (Auto) % Eos % (Auto) % Baso % (Auto) % Immature Gran # (Auto) (0.00-0.02) K/uL Neut # (Auto) (1.4-6.5) K/uL Lymph # (Auto) (1.2-3.4) K/uL Craig # (Auto) (0.11-0.59) K/uL Eos # (Auto) (0-0.5) K/uL Baso # (Auto) (0-0.2) K/uL PT (9.0-12.0) Seconds INR (0.9-1.1) APTT (21.0-31.0) Seconds PTT Ratio Sodium (136-145) mmol/L Potassium (3.5-5.1) mmol/L Chloride (98-107) mmol/L Carbon Dioxide (21-32) mmol/L Anion Gap (3-11) BUN (7-18) mg/dl Creatinine (0.6-1.4) mg/dl Est Cr Clr Drug Dosing ml/min Est GFR ( Amer) Est GFR (Non-Af Amer) BUN/Creatinine Ratio (10-20) Glucose (70-99) mg/dl POC Glucose 135 H (70-99) mg/dl Lactate (0.4-2.0) mmol/L Calcium (8.5-10.1) mg/dl Magnesium (1.8-2.4) mg/dl Total Bilirubin (0.2-1) mg/dl AST (15-37) U/L ALT (12-78) U/L Alkaline Phosphatase (45-117) U/L Troponin I (0-0.045) ng/ml Total Protein (6.4-8.2) gm/dl Albumin (3.4-5.0) gm/dl Globulin (2.5-4.0) gm/dl Albumin/Globulin Ratio (0.9-2) Urine Color Urine Appearance (Clear) Urine pH (4.5-7.5) Ur Specific [place] (1.000-1.030) Urine Protein (Negative) Urine Glucose (UA) (Negative) Urine Ketones (Negative) Urine Blood (Negative) Urine Nitrite (Negative) Urine Bilirubin (Negative) Urine Urobilinogen (Negative) Ur Leukocyte Esterase (Negative) Ethyl Alcohol mg/dL 266.7 H (0-3) mg/dl Influenza Type A (PCR) (Neg) Influenza Type B (PCR) (Neg) Administered Medications Sodium Chloride (Nss 1000ml) 1,000 mls @ 999 mls/hr IV .Q1H1M ONE Stop: 11/11/19 01:16 Last Admin: 11/11/19 00:43 Dose: 999 mls/hr Documented by: [id number] Ioversol (Optiray 320 125ml) 125 ml IV ONCE PRN PRN Reason: Interaction Checking Stop: 11/14/19 23:47 Last Admin: 11/10/19 23:49 Dose: 106 ml Documented by: [id number] Discontinued Medications Albuterol (Duoneb) 3 ml NEB NOW STA Stop: 11/10/19 22:29 Last Admin: 11/10/19 22:38 Dose: 3 ml Documented by: [id number] Albuterol (Duoneb) 3 ml NEB NOW STA Stop: 11/10/19 23:05 Last Admin: 11/10/19 23:18 Dose: 3 ml Documented by: [id number] Chlordiazepoxide HCl (Librium) 50 mg PO NOW ONE Stop: 11/11/19 00:23 Last Admin: 11/11/19 00:44 Dose: 50 mg Documented by: [id number] Dexamethasone Sodium Phosphate (Decadron Pf) 10 mg IV NOW ONE Stop: 11/10/19 22:29 Last Admin: 11/10/19 22:46 Dose: 10 mg Documented by: [id number] Sodium Chloride (Nss 1000ml) 1,000 mls @ 999 mls/hr IV .Q1H1M ONE Stop: 11/10/19 23:28 Last Infusion: 11/10/19 23:47 Dose: 0 mls/hr Documented by: [id number] Admin: 11/10/19 22:46 Dose: 999 mls/hr Documented by: [id number] Piperacillin Sod/Tazobactam Sod (Zosyn) 4.5 gm in 120 mls @ 240 mls/hr IV NOW ONE Stop: 11/11/19 00:51 Last Admin: 11/11/19 00:45 Dose: 240 mls/hr Documented by: [id number] Thiamine HCl 100 mg/ Syringe 10 mls @ 2 mls/min IV NOW STA Stop: 11/11/19 00:36 Last Admin: 11/11/19 01:02 Dose: 2 mls/min Documented by: [id number] Potassium Chloride (Klor-Con M20) 20 meq PO NOW STA Stop: 11/11/19 00:33 Last Admin: 11/11/19 00:45 Dose: 20 meq Documented by: [id number] Discharge Plan Visit Data Chief Complaint: Shortness of Breath/Dyspnea Stated Complaint: SOB ED Provider: [facility] ED Midlevel Provider: Tanisha Sykes Discharge Problem: Pneumonia, Alcohol abuse Patient Disposition: Being Evaluated by Hospitalist Condition: Fair Forms Stand Alone Forms: [employer] Prescriptions Prescriptions: No Action No Known Home Medications RF: 0 Referrals Referrals: PCP,NO [Primary Care Provider] - Discharge Problem: Pneumonia Qualifiers: Pneumonia type: due to unspecified organism Laterality: right Lung location: lower lobe of lung Qualified Code(s): J18.9 - Pneumonia, unspecified organism The scribe's documentation has been prepared under my direction and personally reviewed by me in its entirety. I confirm that the note above accurately reflects all work, treatment, procedures, and medical decision making performed by me.
--- NOTE | 2019-11-11 01:23 | Emergency Department Note ---
Entered by Micheline Daly acting as a scribe for [facility] ED Visit Note The patient was seen and examined by myself in conjunction with the advanced care provider Tanisha Sykes PA-C. I agree with the history, physical and findings as documented. Please see the note for disposition and details. . : Pneumonia Qualifiers: Pneumonia type: due to unspecified organism Laterality: right Lung location: lower lobe of lung Qualified Code(s): J18.9 - Pneumonia, unspecified organism The scribe's documentation has been prepared under my direction and personally reviewed by me in its entirety. I confirm that the note above accurately reflects all work, treatment, procedures, and medical decision making performed by me.
--- NOTE | 2019-11-11 01:59 | History & Physical Report ---
Date of Service November 11, 2019 Assessment & Plan (1) COPD exacerbation: ? Secondary to aspiration pneumonia No sepsis Worsening neck pain Multinodular goiter with lymphadenopathy on recent imaging Concern for malignancy No overt airway obstruction for now Possible hypothyroidism hx PAF, patient NSR hx pulmonary embolism Not on anticoagulation due to impulsive/self-destructive behavior/alcohol abuse Alcoholic cirrhosis, no overt decompensation Hypokalemia ongoing tobacco abuse Medical telemetry Augmentin, nebs, prednisone course CT soft tissue neck RE worsening neck pain Recheck thyroid function test DT precautions Replace potassium Nicotine patch as needed DVT prophylaxis. SCDs RE thrombocytopenia Full code History of Present Illness Chief Complaint: Cough, shortness of breath, neck pain Primary Care Provider: Dr. Izaguirre History obtained from the patient and records. Limited history from patient secondary to alcoholic intoxication. Medical history significant for alcoholic cirrhosis, COPD, ongoing tobacco abuse, paroxysmal atrial fibrillation/hx PE not on anticoagulation 2 to GI bleed, mood disorder, chronic thrombocytopenia, history of esophageal varices per records, goiter. Recent confinement June 2018 for rapid A. fib. Patient left hospital AGAINST MEDICAL ADVICE as per usual behavioral pattern. 2 weeks ago patient fell on the ice which led to ER visit. Patient complains of neck pain. Soft tissue neck CT showed marked thyromegaly with moderate substernal extension of left thyroid lobe with nodular densities in the supra and retroclavicular region. Concern for possible thyroid neoplastic process. Outpatient [facility] ENT consultation a few days later. Shortness of breath, hoarseness, weight loss complaints from patient as per note. Vocal cords mobile on laryngoscopy as per note. Consideration for malignancy. Follow-up CT neck, ultrasound head and neck imaging requested. FNA of left thyroid contemplated next visit as per note. Steroid course prescribed to be taken by patient as needed if he develops difficulty breathing. Patient instructed to to go to ER for worsening shortness of breath. Outpatient TSH noted to be 9.7. Follow-up CT neck showed enlarged, heterogeneous thyroid gland with prominent superior mediastinal lymph nodes appearing grossly stable from 2015 and may represent multinodular goiter. Outpatient ultrasound of the head neck results as follows: The thyroid is markedly enlarged and diffusely heterogeneous in echotexture consistent with a multinodular goiter. The right lobe measures 8.9 x 3.7 x 3.9cm. Left lobe measures 9.3 x 3.5 x 3.9cm. Isthmus measures 0.7cm. Normal vascularity is seen. A discrete nodule is not delineated from the diffuse background heterogeneous echotexture. No lymphadenopathy is appreciated. There is mass effect on the surrounding structures. 4 days ago, patient complained of neck swelling without shortness of breath as per outpatient note. Hemoptysis and emesis as per outpatient records. Daughter tried to contact ENT specialist office. Low-grade fever at home yesterday. Worsening cough, S OB. At the ER, patient received Solu-Medrol and Zosyn for pneumonia. Medical History as above Surgical History : Cholecystectomy Family History : Leukemia, thyroid cancer, heart disease Personal/Social history : Ongoing tobacco/alcohol abuse, disabled Allergies Allergy/AdvReac Type Severity Reaction Status Date / Time fentanyl Allergy Intermediate RASH ALL Verified 11/10/19 23:26 OVER BODY Home Medications Home Medications Medication Instructions Recorded Confirmed Type No Known Home Medications 11/10/19 11/10/19 History Past Med/Surg History Medical History Alcohol dependence (Chronic) Alcoholic cirrhosis of liver without ascites (Chronic) Chronic obstructive pulmonary disease Esophageal varices (Chronic) Hypertension Hypothyroidism (Chronic) Myocardial Infarction On home oxygen therapy Paroxysmal atrial fibrillation (Chronic) Pulmonary embolism Seizure Surgical History H/O colonoscopy (Chronic) History of cholecystectomy (Chronic) "2009" History of esophagogastroduodenoscopy (EGD) (Chronic) "12/15/2014- Small varices. Erosive duodenitis." Social History Preferred Language: Gabonese Communication Ability: Effective Visual Impairment: No Limitations Import Specialist Required: No Beliefs That Will Affect Care: None Current Living Situation: Parent Other Information That Helps Us Care for You: No Feels Safe at Home: Yes Safety Concerns: Feels Safe At This Time Smoking Status: Current every day smoker Tobacco Type: cigarettes ; Cigarettes Per Day: 20 ; Do You Dip or Chew Tobacco: No ; Second Hand Exposure: No ; Tobacco Cessation Education Requested by Patient: No Hx Alcohol Use: Yes Alcohol type: beer Hx Substance Use: No Review of Systems Review of Systems: Could not be reliably obtained Physical Exam Physical Exam: GENERAL: Intoxicated, lying on the left lateral decubitus position, no respiratory distress, alcoholic fetor, no stridor SKIN: Normal color, warm HEENT: Alopecia, pink palpebral conjunctivae, no ptosis, dry buccal mucosa NECK : Supple, thyromegaly without overt tenderness CHEST : Decreased breath sounds, expiratory wheezes , no tenderness HEART : RRR, no obvious murmurs ABDOMEN: Some distention, nontender EXTREMITIES : No LE swelling/tenderness, no other conspicuous deformities noted NEUROLOGIC : Coherent, intoxicated, no facial asymmetry, no other gross focality Results & Data Vital Signs (Past 12 Hours) Vital Signs Temp Pulse Pulse Resp BP BP Pulse Ox 11/11/19 01:46 99 H 20 101/52 L 95 11/11/19 00:47 108 H 22 135/73 95 11/10/19 23:31 95 11/10/19 23:19 96 H 18 97 11/10/19 23:03 104 H 20 116/68 95 11/10/19 23:00 98 H 18 116/68 95 11/10/19 22:39 89 20 94 11/10/19 22:34 97 11/10/19 22:31 92 H 16 92 11/10/19 22:30 91 H 18 117/71 94 11/10/19 22:14 36.7 C 78 20 129/77 97 11/10/19 22:12 88 16 125/85 96 11/10/19 22:11 86 20 97 11/10/19 22:02 94 H 16 129/77 96 Laboratory Results Laboratory Results WBC 8.61 K/uL (4.8-10.8) 11/10/19 22:09 RBC 4.24 M/uL (4.7-6.1) L 11/10/19 22:09 Hgb 15.7 g/dL (14.0-18.0) 11/10/19 22:09 Hct 44.1 % (42-52) 11/10/19 22:09 MCV 104.0 fL (80-100) H 11/10/19 22:09 MCH 37.0 pg (25-34) H 11/10/19 22:09 MCHC 35.6 g/dL (32-36) 11/10/19 22:09 RDW Std Deviation 50.8 fL (36.4-46.3) H 11/10/19 22:09 RDW Coeff of Hernandez 13.3 % (11.5-14.5) 11/10/19 22:09 Plt Count 161 K/uL (130-400) 11/10/19 22:09 MPV 11.0 fL (7.4-10.4) H 11/10/19 22:09 Immature Gran % (Auto) 0.2 % 11/10/19 22:09 Neut % (Auto) 38.5 % 11/10/19 22:09 Lymph % (Auto) 44.7 % 11/10/19 22:09 [place] % (Auto) 11.8 % 11/10/19 22:09 Eos % (Auto) 3.5 % 11/10/19 22:09 Baso % (Auto) 1.3 % 11/10/19 22:09 Immature Gran # (Auto) 0.02 K/uL (0.00-0.02) 11/10/19 22:09 Neut # (Auto) 3.31 K/uL (1.4-6.5) 11/10/19 22:09 Lymph # (Auto) 3.85 K/uL (1.2-3.4) H 11/10/19 22:09 [place]ickson # (Auto) 1.02 K/uL (0.11-0.59) H 11/10/19 22:09 Eos # (Auto) 0.30 K/uL (0-0.5) 11/10/19 22:09 Baso # (Auto) 0.11 K/uL (0-0.2) 11/10/19 22:09 PT 12.9 Seconds (9.0-12.0) H 11/10/19 22:09 INR 1.3 (0.9-1.1) H 11/10/19 22:09 APTT 29.8 Seconds (21.0-31.0) 11/10/19 22:09 PTT Ratio 1.1 11/10/19 22:09 Sodium 141 mmol/L (136-145) 11/10/19 22:09 Potassium 3.4 mmol/L (3.5-5.1) L 11/10/19 22:09 Chloride 108 mmol/L (98-107) H 11/10/19 22:09 Carbon Dioxide 27 mmol/L (21-32) 11/10/19 22:09 Anion Gap 6.0 (3-11) 11/10/19 22:09 BUN 4 mg/dl (7-18) L 11/10/19 22:09 Creatinine 0.83 mg/dl (0.6-1.4) 11/10/19 22:09 Est Cr Clr Drug Dosing 88.5 ml/min 11/10/19 22:09 Est GFR ( Amer) 115.6 11/10/19 22:09 Est GFR (Non-Af Amer) 99.8 11/10/19 22:09 BUN/Creatinine Ratio 4.7 (10-20) L 11/10/19 22:09 Glucose 63 mg/dl (70-99) L 11/10/19 22:09 POC Glucose 135 mg/dl (70-99) H 11/11/19 00:24 Lactate 3.8 mmol/L (0.4-2.0) H* 11/11/19 00:58 Calcium 8.1 mg/dl (8.5-10.1) L 11/10/19 22:09 Magnesium 1.9 mg/dl (1.8-2.4) 11/10/19 22:09 Total Bilirubin 1.4 mg/dl (0.2-1) H 11/10/19 22:09 AST 68 U/L (15-37) H 11/10/19 22:09 ALT 30 U/L (12-78) 11/10/19 22:09 Alkaline Phosphatase 113 U/L (45-117) 11/10/19 22:09 Troponin I < 0.015 ng/ml (0-0.045) 11/10/19 22:09 Total Protein 8.1 gm/dl (6.4-8.2) 11/10/19 22:09 Albumin 2.2 gm/dl (3.4-5.0) L 11/10/19 22:09 Globulin 5.9 gm/dl (2.5-4.0) H 11/10/19 22:09 Albumin/Globulin Ratio 0.4 (0.9-2) L 11/10/19 22:09 Urine Color Yellow 11/10/19 22:09 Urine Appearance Clear (Clear) 11/10/19 22:09 Urine pH 7.0 (4.5-7.5) 11/10/19 22:09 Ur Specific [place] 1.005 (1.000-1.030) 11/10/19 22:09 Urine Protein Negative (Negative) 11/10/19 22:09 Urine Glucose (UA) Negative (Negative) 11/10/19 22:09 Urine Ketones Negative (Negative) 11/10/19 22:09 Urine Blood Negative (Negative) 11/10/19 22:09 Urine Nitrite Negative (Negative) 11/10/19 22:09 Urine Bilirubin Negative (Negative) 11/10/19 22:09 Urine Urobilinogen Negative (Negative) 11/10/19 22:09 Ur Leukocyte Esterase Negative (Negative) 11/10/19 22:09 Ethyl Alcohol mg/dL 266.7 mg/dl (0-3) H 11/10/19 23:21 Influenza Type A (PCR) Neg for Influ A (Neg) 11/10/19 23:00 Influenza Type B (PCR) Neg for Influ B (Neg) 11/10/19 23:[address] chest initial read: No pulmonary embolus. Mild pulmonary emphysema. Pneumonitis right lung base. Atelectasis left lower lobe. Large heterogeneous thyroid gland with lesions. Gynecomastia. Cirrhosis cholecystectomy. Nodes/collaterals in the upper abdomen. EKG as per my palpitation: Rate 80, NSR, normal axis, no ischemia
[2019-11-11] MEDS ORDERED: GABAPENTIN 1200MG ALCOHOL WITHDRAWAL LOAD PO STA (02:32)
[2019-11-11] MEDS ORDERED: ATIVAN IV ALCOHOL WITHDRAWL IV PRN (02:32)
[2019-11-11] MEDS ORDERED: OXYCODONE HCL IR 5 MG TAB (IMMEDIATE RELEASE) PO PRN (02:32)
[2019-11-11] MEDS ORDERED: LACTATED RINGER'S 1,000 ML IV ONE (02:32)
[2019-11-11] MEDS ORDERED: LORazepam 3 MG/6 ML VIAL IV PRN (02:32)
[2019-11-11] MEDS ORDERED: ACETAMINOPHEN 325 MG TAB PO PRN (02:32)
[2019-11-11] MEDS ORDERED: LORazepam 2 MG/4 ML VIAL IV PRN (02:32)
[2019-11-11] MEDS ORDERED: LORazepam 1 MG/2 ML VIAL IV PRN (02:32)
[2019-11-11] MEDS ORDERED: GABAPENTIN 600 MG TAB PO SCH (03:00)
[2019-11-11 06:34] LABS: Hematocrit (blood only) 36.3 % (42-52); Hemoglobin 12.7 g/dL (14.0-18.0); Mean Corpuscular Hemoglobin 35.9 pg (25-34); Mean Corpuscular Volume 102.5 fL (80-100); Mean Platelet Volume 10.5 fL (7.4-10.4); Platelet Count 128 K/uL (130-400); RDW Coefficient of Variation 13.2 % (11.5-14.5); RDW Standard Deviation 49.6 fL (36.4-46.3); Red Blood Count 3.54 M/uL (4.7-6.1); White Blood Count 2.57 K/uL (4.8-10.8)
[2019-11-11 06:52] LABS: Basophils # (auto) 0.01 K/uL (0-0.2); Basophils % (auto) 0.4 %; Immature Granulocytes # (auto) 0.01 K/uL (0.00-0.02); Immature Granulocytes % (auto) 0.4 %; Lymphocytes # (auto) 0.39 K/uL (1.2-3.4); Lymphocytes % (auto) 15.2 %; Monocytes # (auto) 0.03 K/uL (0.11-0.59); Monocytes % (auto) 1.2 %; Neutrophils # (auto) 2.13 K/uL (1.4-6.5); Neutrophils % (auto) 82.8 %
[2019-11-11] MEDS: LEVALBUTEROL 1.25MG/0.5ML NEB INH SCH ×3 (06:53→19:00)
[2019-11-11] MEDS: IPRATROPIUM BROMIDE NEB SOLN 0.02% 2.5 ML VIAL INH SCH ×3 (06:53→19:00)
[2019-11-11 07:00] LABS: BUN Creatinine Ratio 4.6 (10-20); Calcium 7.4 mg/dl (8.5-10.1); Creatinine Clr Calc Pharmacy 103.5 ml/min; Est GFR (African American) 123.3; Est GFR (Non-African American) 106.4; Potassium 3.8 mmol/L (3.5-5.1)
[2019-11-11] MEDS ORDERED: XOPENEX/ATROVENT 1.25mg/0.5MG NEB COMBO NEB SCH (07:00)
[2019-11-11 07:05] LABS: Troponin I 0.018 ng/ml (0-0.045)
[2019-11-11 07:25] LABS: Thyroid Stimulating Hormone 4.68 uIu/ml (0.300-4.500)
--- NOTE | 2019-11-11 07:26 | XRay Report ---
XR chest 1V portable CLINICAL HISTORY: SEPSIS COMPARISON STUDY: Chest radiograph March 20, 2019. FINDINGS: Lung volumes are normal. Mild right lower lung opacity is noted. There is no pneumothorax o r pleural effusion. Cardiac size is normal. Mediastinal contours are normal. There is no evidence for pulmonary edema. Upper mediastinal widening is unchanged and due to a thyroid goiter shown on prior CT. Central pulmonary arteries are dilated. IMPRESSION: Mild right lower lung opacity which favors an infectious process. ACT 112: Negative or not required by law. Electronically signed by: Chuy Rodríguez M.D. 11/11/2019 7:25 AM
--- NOTE | 2019-11-11 07:41 | CT Scan Report ---
CT angio chest PE protocol CLINICAL HISTORY: 53 years-old Male presenting with hemoptysis, atypical chest pain, shortness of lee ath, clinical concern for pulmonary bolus. TECHNIQUE: Multidetector CT angiography of the chest was performed after administration of intravenou s contrast. 3-D volumetric and/or maximum intensity projection (MIP) images were subsequently reconst ructed for review. IV contrast: 106 mL of Optiray 320. One or more dose lowering techniques were used consistent with the principles of ALARA (as low as reasonably achievable), including automatic expos ure control, mA or kV adjustment to individual patient size, and/or use of iterative reconstruction. COMPARISON: 06/22/2018. CT DOSE (mGy.cm): The estimated cumulative dose is 386.91 mGy.cm. FINDINGS: Oil Gauger topogram: Unremarkable. Pulmonary vasculature: The study is adequate for assessment of the pulmonary vascular tree. No filling defect within the pul monary arteries to suggest embolus. Main pulmonary artery top normal in size. No flattening of the in terventricular septum. No intracardiac filling defect. No reflux of contrast into the hepatic veins. Remaining chest: Soft tissues: Marked thyromegaly with substernal extension of the left lobe of the thyroid. Gynecomas tia. No axillary, supraclavicular, mediastinal, or hilar lymphadenopathy. Trace atherosclerosis of th e aortic arch. Normal heart size. No pericardial or pleural effusion. Mild distention of the esophagu s. Cirrhotic morphology of the liver. Multiple prominent peripancreatic and samson hepatal lymph nodes . There are also perigastric and paraesophageal varices. Lungs and airways: No pneumothorax. Central airways patent. Pulmonary arteries enlarged relative to a djacent bronchi. No interlobular septal thickening. Trace paraseptal emphysematous changes at the api petra. Minimal patchy groundglass opacities in a peribronchovascular distribution of the right lower lo be. Musculoskeletal: Normal osseous structures. IMPRESSION: 1. No evidence of pulmonary embolus. 2. Cirrhosis with perigastric and paraesophageal varices. There is still bleeding could be a source of the patient's symptomatology. 3. Trace peribronchovascular right lower lobe opacities. This minimal infiltrate could be due to tra ce aspiration or minimal inflammation/pneumonitis. 4. Pulmonary hypertension. 5. Trace emphysema. 6. Nonspecific upper abdominal lymphadenopathy. 7. Marked thyromegaly. ACT 112: Negative or not required by law. Electronically signed by: Jonathan Hart M.D. 11/11/2019 7:39 AM
[2019-11-11 07:43] LABS: T4 Free Thyroxine 0.94 ng/dl (0.8-1.6)
[2019-11-11] MEDS: MULTIVITAMIN TAB PO SCH (07:49)
[2019-11-11] MEDS: AMOXICILLIN/CLAVULANATE 875 MG TAB PO SCH ×2 (07:49→16:07)
[2019-11-11] MEDS: predniSONE 20 MG TAB PO SCH (07:49)
--- NOTE | 2019-11-11 07:58 | CT Scan Report ---
CT soft tissue neck wo con CLINICAL HISTORY: 53 years-old Male presenting with worsening neck pain. TECHNIQUE: Multidetector CT of the neck was performed without the use of intravenous contrast. IV con trast: None. One or more dose lowering techniques were used consistent with the principles of ALARA ( as low as reasonably achievable), including automatic exposure control, mA or kV adjustment to indivi dual patient size, and/or use of iterative reconstruction. COMPARISON: 10/28/2019. CT DOSE (mGy.cm): The estimated cumulative dose is 465.26 mGy.cm. 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 Evaluation significantly limited by noncontrast technique. This moderately degrades diagnostic sensit ivity the exam. Redemonstration of thyromegaly with substernal extension of the left thyroid lobe. There is nodular infiltrative changes within the superior mediastinal fat as on prior exam. Some of t hese clearly represent discrete lymph nodes while other infiltrative changes are more diffuse and vag ue. Subcentimeter bilateral cervical lymph nodes are noted more superiorly. Limited intracranial evaluation within normal limits. Orbits grossly normal. Paranasal sinuses and ma stoid air cells are essentially clear. Several teeth are absent with dental caries present as well as periapical lucencies at several maxillary teeth. Limited evaluation for buccal mucosal inflammatory change. Parotid and submandibular glands grossly normal. Mild atherosclerotic changes at the carotid bifurcat ions. Aerodigestive tract patent without focal effacement or asymmetry. Paraseptal emphysematous changes at the lung apices. Mild degenerative changes of the cervical spine. IMPRESSION: Evaluation significantly limited by noncontrast technique. This moderately degrades diagnostic sensit ivity the exam. 1. Redemonstration of thyromegaly with abnormal superior mediastinal lymph nodes and infiltrative ch anges. As mentioned on prior exam and as evident on contemporaneous CTA chest, these findings may be related. Consider dedicated thyroid ultrasound on a nonurgent outpatient basis to exclude a focal nod ule/thyroid malignancy. 2. No cervical lymphadenopathy allowing for noncontrast technique. ACT 112: Negative or not required by law. Electronically signed by: Jonathan Hart M.D. 11/11/2019 7:56 AM
[2019-11-11] MEDS ORDERED: AUGMENTIN~CONSULT PHARMACY PRN (09:00)
[2019-11-11] MEDS: GABAPENTIN 600 MG TAB PO SCH ×2 (09:52→16:07)
[2019-11-11] MEDS: LACTATED RINGER'S 1,000 ML IV SCH ×2 (10:52→20:31)
--- NOTE | 2019-11-11 12:02 | Electrocardiogram Report ---
Test Reason : Blood Pressure : / mmHG Vent. Rate : 078 BPM Atrial Rate : 078 BPM P-R Int : 140 ms QRS Dur : 094 ms QT Int : 402 ms P-R-T Axes : 068 060 049 degrees QTc Int : 458 ms Normal sinus rhythm Normal ECG When compared with ECG of 20-MAR-2019 19:38, No significant change was found Confirmed by Pierre Torrez ([id number]) on 11/11/2019 12:01:32 PM Referred By: REFERRED SELF Confirmed By:Pierre Torrez
--- NOTE | 2019-11-11 17:52 | Communication Note ---
Date of Service: November 11, 2019 Pt was seen and examined Lying in bed with no distress Pt said that his neck pain improves He said that he is hungry Denies any chest pain, palpitation, dizziness and SOB Exam General- No acute distress Head- atraumatic Eyes- PERRL, EOMI, ENT- oropharynx clear Neck- supple, no JVD Lungs- decrease BS Heart- regular rhythm; no murmur Abdomen- normal bowel sounds, soft, nontender Extremities- no calf tenderness Neuro- alert, oriented, PERRL, EOMI; no facial palsy; no dysarthria, +tremor Skin- warm & dry A/P COPD exacerbation Pneumonia Present on admission with SOB and cough CXR showed mild right lower lung opacity which favors an infectious process. CTA Chest showed minimal patchy groundglass opacities in a peribronchovascular distribution of the right lower lobe. No evidence of PE Received IV Zosyn in the ER CO Augmentin BID and prednisone 40mg daily Blood cx pending Neck Tenderness CT soft tissue neck showed redemonstration of thyromegaly with abnormal superior mediastinal lymph nodes and infiltrative changes Plan for FNA of left thyroid schedule for Alcohol abuse Continue alcohol withdrawn protocol with gabapentin and ativan Will monitor closely for alcohol withdrawal and DT Continue thiamine DVT px on SCDs due to Thrombocytopenia Code Status Full code
[2019-11-12] MEDS: GABAPENTIN 600 MG TAB PO SCH ×3 (00:13→15:48)
[2019-11-12] MEDS: IPRATROPIUM BROMIDE NEB SOLN 0.02% 2.5 ML VIAL INH SCH ×4 (00:22→19:14)
[2019-11-12] MEDS: LEVALBUTEROL 1.25MG/0.5ML NEB INH SCH ×4 (00:23→19:14)
[2019-11-12] MEDS: LACTATED RINGER'S 1,000 ML IV SCH ×2 (06:27→15:48)
[2019-11-12] MEDS: AMOXICILLIN/CLAVULANATE 875 MG TAB PO SCH ×2 (08:18→17:26)
[2019-11-12] MEDS: FOLIC ACID 1 MG TAB PO SCH (08:18)
[2019-11-12] MEDS: predniSONE 20 MG TAB PO SCH (08:18)
[2019-11-12] MEDS: THIAMINE HCL 100 MG TAB PO SCH (08:19)
[2019-11-12] MEDS: MULTIVITAMIN TAB PO SCH (08:19)
[2019-11-12 12:03] LABS: Basophils # (auto) 0.01 K/uL (0-0.2); Basophils % (auto) 0.1 %; Eosinophils # (auto) 0.01 K/uL (0-0.5); Eosinophils % (auto) 0.1 %; Hematocrit (blood only) 38.9 % (42-52); Hemoglobin 13.8 g/dL (14.0-18.0); Immature Granulocytes # (auto) 0.01 K/uL (0.00-0.02); Immature Granulocytes % (auto) 0.1 %; Lymphocytes # (auto) 0.75 K/uL (1.2-3.4); Lymphocytes % (auto) 10.6 %; Mean Corpuscular Hgb Conc 35.5 g/dL (32-36); Mean Corpuscular Volume 104.3 fL (80-100); Mean Platelet Volume 10.7 fL (7.4-10.4); Monocytes # (auto) 0.71 K/uL (0.11-0.59); Neutrophils # (auto) 5.58 K/uL (1.4-6.5); Neutrophils % (auto) 79.1 %; Platelet Count 132 K/uL (130-400); RDW Coefficient of Variation 13.5 % (11.5-14.5); RDW Standard Deviation 51.2 fL (36.4-46.3); Red Blood Count 3.73 M/uL (4.7-6.1); White Blood Count 7.07 K/uL (4.8-10.8)
[2019-11-12 12:41] LABS: BUN Creatinine Ratio 7.8 (10-20); Est GFR (African American) 89.7; Est GFR (Non-African American) 77.4; Potassium 3.5 mmol/L (3.5-5.1)
--- NOTE | 2019-11-12 14:28 | Electrocardiogram Report ---
Test Reason : Blood Pressure : / mmHG Vent. Rate : 069 BPM Atrial Rate : 069 BPM P-R Int : 126 ms QRS Dur : 094 ms QT Int : 414 ms P-R-T Axes : 073 068 063 degrees QTc Int : 443 ms Normal sinus rhythm Nonspecific ST and T wave abnormality Abnormal ECG When compared with ECG of 10-NOV-2019 22:04, Nonspecific T wave abnormality now evident in Anterolateral leads Confirmed by Pierre Torrez ([id number]) on 11/12/2019 2:27:51 PM Referred By: REFERRED SELF Confirmed By:Pierre Torrez
--- NOTE | 2019-11-12 17:50 | Hospitalist Progress Note ---
Date of Service November 12, 2019 Assessment & Plan (1) COPD exacerbation: Secondary to aspiration pneumonia No sepsis Has been on Augmentin, prednisone and nebulized bronchodilator Has been feeling a lot better since admission Worsening neck pain Multinodular goiter with lymphadenopathy on recent imaging Concern for malignancy No overt airway obstruction for now Likely goiter Schedule for fine-needle aspiration November Has hypothyroidism Will start Synthroid 25 mcg daily Discussed with the daughter in detail hx PAF, patient NSR hx pulmonary embolism Not on anticoagulation due to impulsive/self-destructive behavior/alcohol abuse Alcoholic cirrhosis, no overt decompensation No signs of withdrawal symptoms Hypokalemia -we will supplement and monitor DVT prophylaxis. SCDs RE thrombocytopenia Full code Discussed with the daughter in detail Likely discharge tomorrow Subjective 11/12/2019 The patient was seen and examined in medical floor He has been feeling a lot better Denies any symptoms at rest and has been ambulating in room without any difficulty Does have neck swelling secondary to goiter and has not been causing any problem with breathing Review of Systems Review of Systems: All systems reviewed and are unremarkable except as noted below Ear, Nose, Mouth, Throat: + neck lump (Bilateral thyroid gland swelling); no hoarseness Physical Exam Physical Exam: Sitting at the side of the bed without any symptoms Constitutional: well developed and well nourished; no acute distress and not ill appearing Eyes: PERRL, conjunctivae normal, anicteric sclerae ENMT: external ear and nose normal, oropharynx normal Neck: trachea midline, no thyromegaly Respiratory: normal respiratory effort Auscultation: + diminished lung sounds, + crackles (Minimal bibasilar crackles) and + wheezes (Occasional wheezing) Cardiovascular: Rate/Rhythm: regular rate and regular rhythm Heart Sounds: no murmur Gastrointestinal (Abdomen): Inspection/Auscultation: abdomen normal to inspection and normal bowel sounds Percussion/Palpation: abdomen soft; abdomen nontender Musculoskeletal: No acute joint pain Neurologic: moves all extremities; no focal motor deficits Lymphatic: + lymphadenopathy (Bilateral Lind thyroid swelling difficult to feel for any lymph glands) Results & Data ([facility]) Vital Signs (Past 12 Hours) Vital Signs Temp Pulse Pulse Resp BP BP Pulse Ox 11/12/19 15:34 36.9 C 80 20 126/72 92 11/12/19 15:22 79 11/12/19 13:52 83 14 96 11/12/19 11:18 36.4 C L 83 20 110/71 96 11/12/19 07:01 95 H 16 92 11/12/19 06:00 36.7 C 76 20 116/68 93 Laboratory Results Short CBC 11/12/19 Range/Units 11:47 WBC 7.07 (4.8-10.8) K/uL Hgb 13.8 L (14.0-18.0) g/dL Hct 38.9 L (42-52) % Plt Count 132 (130-400) K/uL BMP 11/12/19 11:47 Sodium 140 Potassium 3.5 Chloride 109 H Carbon Dioxide 24 BUN 8 D Creatinine 1.08 Glucose 177 H Calcium 8.0 L Medications Administered Current Inpatient Medications Acetaminophen (Tylenol) 325 mg PO Q6H PRN PRN Reason: Pain or Fever Stop: 12/11/19 02:31 Amoxicillin/Clavulanate Potassium (Augmentin 875mg) 1 tab PO BIDM [facility] Stop: 11/18/19 07:59 Last Admin: 11/12/19 17:26 Dose: 1 tab Documented by: Folic Acid (Folvite) 1 mg PO QAM [facility] Stop: 12/12/19 08:59 Last Admin: 11/12/19 08:18 Dose: 1 mg Documented by: Gabapentin (Neurontin) 600 mg PO Q12H [facility] Stop: 11/13/19 16:01 Gabapentin (Neurontin) 600 mg PO Q24H [facility] Stop: 11/14/19 16:01 Lorazepam (Ativan) 1 mg in 2 mls @ 2 mls/min IV UD PRN; Protocol PRN Reason: EtOH Withdrawl AWSS Score 6,7 Stop: 12/11/19 02:31 Lorazepam (Ativan) 2 mg in 4 mls @ 4 mls/min IV UD PRN; Protocol PRN Reason: EtOH Withdrawl AWSS Score 8,9 Stop: 12/11/19 02:31 Lorazepam (Ativan) 3 mg in 6 mls @ 4 mls/min IV ONCE PRN; Protocol PRN Reason: EtOH Withdrawl AWSS Score >=10 Stop: 12/11/19 02:31 Lactated Ringer's (Lr) 1,000 mls @ 100 mls/hr IV .Q10H [facility] Stop: 12/11/19 10:59 Last Admin: 11/12/19 15:48 Dose: 100 mls/hr Documented by: Ipratropium [place] (Atrovent 0.02% 0.5mg/2.5ml) 0.5 mg INH Q6R [facility] Stop: 12/11/19 06:59 Last Admin: 11/12/19 13:51 Dose: 0.5 mg Documented by: Levalbuterol HCl (Xopenex 1.25mg/0.5ml Neb) 1.25 mg INH Q6R [facility] Stop: 12/11/19 06:59 Last Admin: 11/12/19 13:52 Dose: 1.25 mg Documented by: Levothyroxine Sodium (Synthroid) 25 mcg PO DAILYBB [facility] Stop: 12/13/19 06:29 Miscellaneous Information (Pharmacy Consult) 1 ea N/A UD PRN PRN Reason: Consult Stop: 12/11/19 08:59 Multivitamins ([facility]ivitamin Tab) [facility] Stop: 12/11/19 08:59 Last Admin: 11/12/19 08:19 Dose: 1 tab Documented by: Oxycodone HCl (Roxicodone Immediate Rel) 5 mg PO Q6H PRN PRN Reason: Pain Stop: 11/25/19 02:31 Prednisone (Prednisone) 40 mg PO DAILY [facility] Stop: 11/15/19 08:59 Last Admin: 11/12/19 08:18 Dose: 40 mg Documented by: Thiamine HCl (Vitamin B-1) 100 mg PO QAM [facility] Stop: 12/12/19 08:59 Last Admin: 11/12/19 08:19 Dose: 100 mg Documented by:
[2019-11-12] MEDS ORDERED: METOPROLOL TARTRATE 1 MG/ML VIAL IV STA (20:19)
[2019-11-13] MEDS: METOPROLOL TARTRATE 1 MG/ML VIAL IV PRN ×2 (00:31→05:38)
[2019-11-13] MEDS: LEVALBUTEROL 1.25MG/0.5ML NEB INH SCH ×3 (00:44→13:08)
[2019-11-13] MEDS: IPRATROPIUM BROMIDE NEB SOLN 0.02% 2.5 ML VIAL INH SCH ×3 (00:44→13:08)
[2019-11-13] MEDS ORDERED: METOPROLOL TARTRATE 1 MG/ML VIAL IV STA ×2 (01:02→08:21)
[2019-11-13] MEDS: LACTATED RINGER'S 1,000 ML IV SCH ×2 (01:53→12:39)
[2019-11-13] MEDS ORDERED: dilTIAZem HCl 5 MG/ML 5 ML VIAL IV STA (03:05)
[2019-11-13] MEDS ORDERED: GABAPENTIN 600 MG TAB PO SCH (04:00)
[2019-11-13] MEDS ORDERED: LEVOTHYROXINE SODIUM 25 MCG TABLET PO SCH (06:30)
[2019-11-13 07:52] LABS: Basophils # (auto) 0.03 K/uL (0-0.2); Basophils % (auto) 0.3 %; Eosinophils # (auto) 0.13 K/uL (0-0.5); Eosinophils % (auto) 1.4 %; Hematocrit (blood only) 42.6 % (42-52); Hemoglobin 14.7 g/dL (14.0-18.0); Immature Granulocytes # (auto) 0.03 K/uL (0.00-0.02); Immature Granulocytes % (auto) 0.3 %; Lymphocytes # (auto) 2.56 K/uL (1.2-3.4); Lymphocytes % (auto) 27.4 %; Mean Corpuscular Hemoglobin 36.7 pg (25-34); Mean Corpuscular Hgb Conc 34.5 g/dL (32-36); Mean Corpuscular Volume 106.2 fL (80-100); Mean Platelet Volume 11.1 fL (7.4-10.4); Monocytes # (auto) 1.25 K/uL (0.11-0.59); Monocytes % (auto) 13.4 %; Neutrophils # (auto) 5.33 K/uL (1.4-6.5); Neutrophils % (auto) 57.2 %; Platelet Count 125 K/uL (130-400); RDW Coefficient of Variation 13.6 % (11.5-14.5); RDW Standard Deviation 53.2 fL (36.4-46.3); Red Blood Count 4.01 M/uL (4.7-6.1); White Blood Count 9.33 K/uL (4.8-10.8)
[2019-11-13] MEDS: MULTIVITAMIN TAB PO SCH (08:08)
[2019-11-13] MEDS: THIAMINE HCL 100 MG TAB PO SCH (08:08)
[2019-11-13] MEDS: predniSONE 20 MG TAB PO SCH (08:08)
[2019-11-13] MEDS: FOLIC ACID 1 MG TAB PO SCH (08:08)
[2019-11-13] MEDS: AMOXICILLIN/CLAVULANATE 875 MG TAB PO SCH (08:08)
[2019-11-13 08:27] LABS: BUN Creatinine Ratio 9.9 (10-20); Calcium 8.5 mg/dl (8.5-10.1); Creatinine Clr Calc Pharmacy 87.5 ml/min; Est GFR (Non-African American) 99.3; Magnesium 1.6 mg/dl (1.8-2.4); Potassium 3.1 mmol/L (3.5-5.1)
[2019-11-13 08:28] LABS: Phosphorus 2.7 mg/dl (2.5-4.9)
[2019-11-13] MEDS: SODIUM CHLORIDE 0.9% 500 ML IV SCH ×2 (08:38→09:23)
[2019-11-13] MEDS ORDERED: dilTIAZem HCL 30 MG TAB PO SCH (09:00)
[2019-11-13] MEDS ORDERED: POTASSIUM CHLORIDE 20 MEQ TABCR PO STA (09:43)
--- NOTE | 2019-11-13 14:06 | Hospitalist Progress Note ---
Date of Service November 13, 2019 Assessment & Plan (1) COPD exacerbation: Secondary to aspiration pneumonia No sepsis Has been on Augmentin, prednisone and nebulized bronchodilator Has been feeling a lot better since admission We will give prednisone for a total of 5 days Worsening neck pain Multinodular goiter with lymphadenopathy on recent imaging Concern for malignancy No overt airway obstruction for now Likely goiter Schedule for fine-needle aspiration 1 17 November Has hypothyroidism Will start Synthroid 25 mcg daily Discussed with the daughter in detail Neck pain is better hx PAF, patient NSR hx pulmonary embolism Not on anticoagulation due to impulsive/self-destructive behavior/alcohol abuse Remains in sinus rhythm Advised to avoid alcohol Was given a small dose of beta-johnny to control rate Alcoholic cirrhosis, no overt decompensation No signs of withdrawal symptoms Hypokalemia -we will supplement and monitor Will need potassium and magnesium supplement on discharge DVT prophylaxis. SCDs RE thrombocytopenia Full code Discussed with the daughter in detail Discharge home this afternoon Subjective 11/12/2019 The patient was seen and examined in medical floor He has been feeling a lot better Denies any symptoms at rest and has been ambulating in room without any difficulty Does have neck swelling secondary to goiter and has not been causing any problem with breathing 11/13/2019 The patient was seen and examined in medical telemetry unit He has had short episodes of A. fib with RVR and reverted to controlled rate more or less right away He has been ambulating well and does not have any withdrawal symptoms His breathing has been stable and he wants to go home Review of Systems Review of Systems: All systems reviewed and are unremarkable except as noted below Ear, Nose, Mouth, Throat: + neck lump (Bilateral thyroid gland swelling); no hoarseness Respiratory: no cough, no dyspnea and no dyspnea on exertion Cardiovascular: no chest pain Physical Exam Physical Exam: Sitting at the side of the bed without any symptoms Constitutional: well developed and well nourished; no acute distress and not ill appearing Eyes: PERRL, conjunctivae normal, anicteric sclerae ENMT: external ear and nose normal, oropharynx normal Neck: trachea midline, no thyromegaly Respiratory: normal respiratory effort Auscultation: + diminished lung sounds, + crackles (Minimal bibasilar crackles) and + wheezes (Occasional wheezing) Cardiovascular: Rate/Rhythm: regular rate and regular rhythm Heart Sounds: no murmur Gastrointestinal (Abdomen): Inspection/Auscultation: abdomen normal to inspection and normal bowel sounds Percussion/Palpation: abdomen soft; abdomen nontender Neurologic: moves all extremities; no focal motor deficits No tremor with outstretched hands Lymphatic: + lymphadenopathy (Bilateral Lind thyroid swelling difficult to feel for any lymph glands) Results & Data ([facility]) Vital Signs (Past 12 Hours) Vital Signs Temp Pulse Pulse Resp BP BP BP 11/13/19 13:08 78 16 11/13/19 12:00 37.0 C 81 18 111/78 11/13/19 08:42 161 H 101/62 11/13/19 08:00 36.5 C 147 H 91 H 18 109/62 11/13/19 07:00 114 H 20 11/13/19 05:38 138 H 125/89 11/13/19 03:40 131 H 121/65 11/13/19 03:09 36.4 C L 89 20 113/73 Pulse Ox 11/13/19 13:08 96 11/13/19 12:00 95 11/13/19 08:42 11/13/19 08:00 96 11/13/19 07:00 96 11/13/19 05:38 11/13/19 03:40 11/13/19 03:09 91 Laboratory Results Short CBC 11/13/19 Range/Units 07:35 WBC 9.33 (4.8-10.8) K/uL Hgb 14.7 (14.0-18.0) g/dL Hct 42.6 (42-52) % Plt Count 125 L (130-400) K/uL BMP 11/13/19 07:35 Sodium 140 Potassium 3.1 L Chloride 109 H Carbon Dioxide 26 BUN 8 Creatinine 0.84 Glucose 70 Calcium 8.5 Medications Administered Current Inpatient Medications Acetaminophen (Tylenol) 325 mg PO Q6H PRN PRN Reason: Pain or Fever Stop: 12/11/19 02:31 Amoxicillin/Clavulanate Potassium (Augmentin 875mg) 1 tab PO BIDM [facility] Stop: 11/18/19 07:59 Last Admin: 11/13/19 08:08 Dose: 1 tab Documented by: Folic Acid (Folvite) 1 mg PO QAM [facility] Stop: 12/12/19 08:59 Last Admin: 11/13/19 08:08 Dose: 1 mg Documented by: Gabapentin (Neurontin) 600 mg PO Q12H [facility] Stop: 11/13/19 16:01 Last Admin: 11/13/19 03:42 Dose: 600 mg Documented by: Gabapentin (Neurontin) 600 mg PO Q24H [facility] Stop: 11/14/19 16:01 Lorazepam (Ativan) 1 mg in 2 mls @ 2 mls/min IV UD PRN; Protocol PRN Reason: EtOH Withdrawl AWSS Score 6,7 Stop: 12/11/19 02:31 Lorazepam (Ativan) 2 mg in 4 mls @ 4 mls/min IV UD PRN; Protocol PRN Reason: EtOH Withdrawl AWSS Score 8,9 Stop: 12/11/19 02:31 Lorazepam (Ativan) 3 mg in 6 mls @ 4 mls/min IV ONCE PRN; Protocol PRN Reason: EtOH Withdrawl AWSS Score >=10 Stop: 12/11/19 02:31 Lactated Ringer's (Lr) 1,000 mls @ 100 mls/hr IV .Q10H [facility] Stop: 12/11/19 10:59 Last Admin: 11/13/19 12:39 Dose: 100 mls/hr Documented by: Ipratropium [place] (Atrovent 0.02% 0.5mg/2.5ml) 0.5 mg INH Q6R [facility] Stop: 12/11/19 06:59 Last Admin: 11/13/19 13:08 Dose: 0.5 mg Documented by: Levalbuterol HCl (Xopenex 1.25mg/0.5ml Neb) 1.25 mg INH Q6R [facility] Stop: 12/11/19 06:59 Last Admin: 11/13/19 13:08 Dose: 1.25 mg Documented by: Levothyroxine Sodium (Synthroid) 25 mcg PO DAILYBB [facility] Stop: 12/13/19 06:29 Last Admin: 11/13/19 05:38 Dose: 25 mcg Documented by: Magnesium Oxide (Mag-Ox) 400 mg PO BID [facility] Stop: 12/13/19 20:59 Metoprolol Succinate (Toprol Xl) 25 mg PO QAM [facility] Stop: 12/13/19 14:14 Metoprolol Tartrate (Lopressor) 2.5 mg IV Q4 PRN PRN Reason: Tachycardia Stop: 12/13/19 00:00 Last Admin: 11/13/19 05:38 Dose: 2.5 mg Documented by: Miscellaneous Information (Pharmacy Consult) 1 ea N/A UD PRN PRN Reason: Consult Stop: 12/11/19 08:59 [facility]ivitamins ([facility]itamin Tab) [facility] Stop: 12/11/19 08:59 Last Admin: 11/13/19 08:08 Dose: 1 tab Documented by: Oxycodone HCl (Roxicodone Immediate Rel) 5 mg PO Q6H PRN PRN Reason: Pain Stop: 11/25/19 02:31 Prednisone (Prednisone) 40 mg PO DAILY [facility] Stop: 11/15/19 08:59 Last Admin: 11/13/19 08:08 Dose: 40 mg Documented by: Thiamine HCl (Vitamin B-1) 100 mg PO QAM [facility] Stop: 12/12/19 08:59 Last Admin: 11/13/19 08:08 Dose: 100 mg Documented by:
[2019-11-13] MEDS ORDERED: METOPROLOL SUCC 25MG EXT REL TAB PO SCH (14:15)
--- NOTE | 2019-11-13 14:21 | Electrocardiogram Report ---
Test Reason : Blood Pressure : / mmHG Vent. Rate : 142 BPM Atrial Rate : 000 BPM P-R Int : 000 ms QRS Dur : 090 ms QT Int : 304 ms P-R-T Axes : 000 065 -32 degrees QTc Int : 467 ms Atrial fibrillation with rapid ventricular response Nonspecific ST and T wave abnormality Abnormal ECG When compared with ECG of 12-NOV-2019 07:23, Significant changes have occurred Confirmed by Pierre Torrez ([id number]) on 11/13/2019 2:21:00 PM Referred By: REFERRED SELF Confirmed By:Pierre Torrez
[2019-11-13] MEDS ORDERED: MAGNESIUM OXIDE 400 MG TAB PO SCH (21:00)
[2019-11-14] MEDS ORDERED: GABAPENTIN 600 MG TAB PO SCH (16:00)
--- NOTE | 2019-11-14 17:45 | Discharge Summary ---
Date of Service November 14, 2019 Admission HPI Per Admitting Provider History obtained from the patient and records. Limited history from patient secondary to alcoholic intoxication. Medical history significant for alcoholic cirrhosis, COPD, ongoing tobacco abuse, paroxysmal atrial fibrillation/hx PE not on anticoagulation 2 to GI bleed, mood disorder, chronic thrombocytopenia, history of esophageal varices per records, goiter. Recent confinement June 2018 for rapid A. fib. Patient left hospital AGAINST MEDICAL ADVICE as per usual behavioral pattern. 2 weeks ago patient fell on the ice which led to ER visit. Patient complains of neck pain. Soft tissue neck CT showed marked thyromegaly with moderate substernal extension of left thyroid lobe with nodular densities in the supra and retroclavicular region. Concern for possible thyroid neoplastic process. [place] [facility] [place] [facility] [place] a few days later. Shortness of breath, hoarseness, weight loss complaints from patient as per note. Vocal cords mobile on laryngoscopy as per note. Consideration for malignancy. Follow-up CT neck, ultrasound head and neck imaging requested. FNA of left thyroid contemplated next visit as per note. Steroid course prescribed to be taken by patient as needed if he develops diffic ulty breathing. Patient instructed to to go to ER for worsening shortness of breath. Outpatient TSH noted to be 9.7. Follow-up CT neck showed enlarged, heterogeneous thyroid gland with prominent superior mediastinal lymph nodes appearing grossly stable from 2015 and may represent multinodular goiter. Outpatient ultrasound of the head neck results as follows: The thyroid is markedly enlarged and diffusely heterogeneous in echotexture consistent with a multinodular goiter. The right lobe measures 8.9 x 3.7 x 3.9cm. Left lobe measures 9.3 x 3.5 x 3.9cm. Isthmus measures 0.7cm. Normal vascularity is seen. A discrete nodule is not delineated from the diffuse background heterogeneous echotexture. No lymphadenopathy is appreciated. There is mass effect on the surrounding structures. 4 days ago, patient complained of neck swelling without shortness of breath as per outpatient note. Hemoptysis and emesis as per outpatient records. Daughter tried to contact ENT specialist office. Low-grade fever at home yesterday. Worsening cough, S OB. At the ER, patient received Solu-Medrol and Zosyn for pneumonia. Medical History as above Surgical History : Cholecystectomy Family History : Leukemia, thyroid cancer, heart disease Personal/Social history : Ongoing tobacco/alcohol abuse, disabled Admission Exam Per Admitting Provider Physical Exam: GENERAL: Intoxicated, lying on the left lateral decubitus position, no respiratory distress, alcoholic fetor, no stridor SKIN: Normal color, warm HEENT: Alopecia, pink palpebral conjunctivae, no ptosis, dry buccal mucosa NECK : Supple, thyromegaly without overt tenderness CHEST : Decreased breath sounds, expiratory wheezes , no tenderness HEART : RRR, no obvious murmurs ABDOMEN: Some distention, nontender EXTREMITIES : No LE swelling/tenderness, no other conspicuous deformities noted NEUROLOGIC : Coherent, intoxicated, no facial asymmetry, no other gross focality Principal Diagnosis COPD exacerbation, goiter with neck pain, paroxysmal atrial fibrillation, alcoholic cirrhosis with ongoing alcoholism Discharge Exam Constitutional well developed and well nourished; no acute distress and not ill appearing Eyes PERRL, conjunctivae normal, anicteric sclerae ENMT external ear and nose normal, oropharynx normal Neck trachea midline, no thyromegaly Respiratory normal respiratory effort Auscultation: + diminished lung sounds, + crackles (Minimal bibasilar crackles) and + wheezes (Occasional wheezing) Cardiovascular Rate/Rhythm: regular rate and regular rhythm Heart Sounds: no murmur Gastrointestinal (Abdomen) Inspection/Auscultation: abdomen normal to inspection and normal bowel sounds Percussion/Palpation: abdomen soft; abdomen nontender Neurologic moves all extremities; no focal motor deficits Lymphatic + lymphadenopathy (Bilateral Lind thyroid swelling difficult to feel for any lymph glands) Discharge Data Allergies Allergy/AdvReac Type Severity Reaction Status Date / Time fentanyl Allergy Intermediate RASH ALL Verified 11/10/19 23:26 OVER BODY Consultations 11/11/19 00:25 ED Decision to Admit Stat 11/11/19 02:32 Consult Case Management - Discharge Planning Routine Ordered Studies 11/10/19 22:28 CT angio chest PE protocol Urgent 11/11/19 06:53 CT soft tissue neck wo con Urgent Hospital Course (1) COPD exacerbation: Secondary to aspiration pneumonia No sepsis Has been on Augmentin, prednisone and nebulized bronchodilator Has been feeling a lot better since admission We will give prednisone for a total of 5 days Worsening neck pain Multinodular goiter with lymphadenopathy on recent imaging Concern for malignancy No overt airway obstruction for now Likely goiter Schedule for fine-needle aspiration November Has hypothyroidism Will start Synthroid 25 mcg daily Discussed with the daughter in detail Neck pain is better hx PAF, patient NSR hx pulmonary embolism Not on anticoagulation due to impulsive/self-destructive behavior/alcohol abuse Remains in sinus rhythm Advised to avoid alcohol Was given a small dose of beta-johnny to control rate Alcoholic cirrhosis, no overt decompensation No signs of withdrawal symptoms Hypokalemia -we will supplement and monitor Will need potassium and magnesium supplement on discharge DVT prophylaxis. SCDs RE thrombocytopenia Full code Discussed with the daughter in detail Discharge home this afternoon Total Time Total Time Spent Total Time Spent (In Minutes): 35 minutes Total Time Includes: Examination of the Patient, Discharge Planning, Medication Reconciliation and Communication With Other Providers Discharge Plan Discharge Items Patient Disposition: Home - Self-Care Reason For Visit: COPD EXACERBATION Discharge Diagnosis: COPD exacerbation, goiter with neck pain, paroxysmal atrial fibrillation, alcoholic cirrhosis with ongoing alcoholism Condition on Discharge: Fair Activity: Resume your previous activity Non-emergency contact: Primary Care Provider Call non-emergency contact if: you have any medication questions Follow-up/Referrals: Michael Izaguirre MD [Outside Practitioners] - 11/19/19 1:05 pm (If you need to change this appointment, please call Dr Izaguirre's office.) Diet: Regular Addtl Attending Provider Instructions: Do not drink anymore alcohol Please take precaution to avoid fall Take your medications as advised Make appointment with the primary care provider within 7 days Pending Studies at Discharge: No Stand-Alone Forms: [employer], Smoking Cessation Medications and DC Order Prescriptions: New gabapentin 600 mg Tablet 600 mg PO UD Qty: 3 RF: 0 metoprolol succinate 25 mg Tablet Extended Release 24 Hr 25 mg PO QAM 30 Days Qty: 30 RF: 0 amoxicillin-pot clavulanate [Augmentin] 875-125 mg Tablet 1 tab PO BIDM 5 Days Qty: 10 RF: 0 multivitamin [Daily-Sarai] Tablet 1 tab PO QAM 30 Days Qty: 30 RF: 0 prednisone 20 mg Tablet 40 mg PO DAILY 3 Days Qty: 6 RF: 0 thiamine HCl (vitamin B1) [Vitamin B-1] 100 mg Tablet 100 mg PO QAM 30 Days Qty: 30 RF: 0 levothyroxine [Synthroid] 25 mcg Tablet 25 mcg PO DAILYBB 30 Days Qty: 30 RF: 0 magnesium oxide 400 mg (241.3 mg magnesium) Tablet 400 mg PO BID 30 Days Qty: 60 RF: 0 folic acid 1 mg Tablet 1 mg PO QAM 30 Days Qty: 30 RF: 0 Lactinex 1 million cell tablet,chewable 1 tab PO BID Qty: 30 RF: 0 No Action No Known Home Medications RF: 0 Discharge Orders: Discharge Order (Routine); Ordered 11/13/19 Ordered By: Joseluis Mike Admission Data Admit Date/Time: 11/11/19 02:00 Attending Provider: Joseluis Mike Admit Provider: Cayden Salazar Primary Care Provider: PCP,SAMIR Other Providers: Cayden Salazar ; Richar Escobedo Other Interventions: Discharge Summary Assessment (RN) Last Done: 11/13/19 14:50 DC Date/Time DO NOT enter until pt leaves facility: 11/13/19 15:21
== END 2019-11-13 15:21 | disposition home or self-care (01) | DRG 190 ==
LOC: ED 21:58 → 2W 11-11 02:00 → SUATTDRO 11-11 02:00 → 2W 11-11 02:16

== ENCOUNTER 2020-04-19 16:23 | Inpatient (IN) ==
--- NOTE | 2020-04-19 17:04 | Emergency Department Note ---
Impression & Plan Acute lower gastrointestinal bleeding, BRBPR (bright red blood per rectum), Alcohol dependence, Esophageal varices, Alcoholic cirrhosis of liver with ascites, Alcohol intoxication ED Provider Note NAME: ARLENE FOWLER AGE: 54 SEX: M : 1965 ARRIVES VIA: Walk-In INFORMANT: Patient ED PROVIDER(S): Kyle Poe DO CHIEF COMPLAINT: Abdominal pain HPI: Patient is a 54-year-old chronic alcoholic with a past medical history of pancreatitis, esophageal varices, history of cholecystectomy, cirrhosis of the liver who presents the ER for right upper abdominal pain associated with bright red blood per rectum for the past 3 days. He also admits to drinking a large amount of alcohol today. [id number] at bedside notes that he is drink at least 2 large bottles of beer today at a minimum. He notes that every time he goes to the bathroom over the past 3 days it is been bright red blood per rectum. He notes that it has been at least 4-5 bowel movements of bright red blood per rectum. He later changes his story and notes that he had bright red and dark tarry stool. He initially denied that he had any dark tarry stool. He is unable to quantify. He notes he has pain in his belly just periumbilical to the right upper quadrant. This is been present for years but recently it is significantly worsened. No vomiting. No dysuria urgency or frequency. HPI is difficult as patient is clearly visibly intoxicated falling asleep intermittently. He does also admit later that he may have spit up a little bright red blood yesterday. ROS: Review of systems is limited secondary to alcohol intoxication PAST MEDICAL HISTORY:See Below PAST SURGICAL HISTORY:See Below FAMILY HISTORY:See Below SOCIAL HISTORY:See Below HOME MEDICATIONS:See Below ALLERGIES:See Below VITALS:See Below PHYSICAL EXAMINATION: GENERAL: Sitting up in bed, slurring his words, intermittently falling asleep in mid conversation, smells of alcohol, disheveled EYE EXAM: Conjunctive injected bilaterally OROPHARYNX: Terrible dentition, mucous membranes are dry NECK: supple, no nuchal rigidity, no adenopathy, non-tender LUNGS: Mild wheezing bilaterally. Normal chest wall mechanics HEART: no murmurs, S1 normal and S2 normal ABDOMEN: abdomen soft, tender periumbilically and right upper quadrant, normo- active bowel sounds, no masses, no rebound or guarding. RECTAL: External hemorrhoid which is not thrombosed. No bleeding. No stool. Heme-negative. SKIN: no rashes and no bruising UPPER EXTREMITIES: upper extremities are grossly normal. LOWER EXTREMITIES: No pitting edema. NEURO EXAM: Awake alert oriented to person and place, moving all extremities, slurring words, clearly intoxicated falling asleep quickly MEDICAL DECISION MAKING: Patient is a chronic alcoholic the presents the ER for abdominal pain with a past medical history of pancreatitis, esophageal varices, liver cirrhosis for bright red blood per rectum and notes yesterday spitting up some bright red blood. His rectal was heme-negative but no stool present. IV was established blood work is obtained. Labs show no significant leukocytosis. Hemoglobin is 14. Consistent with previous. Platelets low at 73. This is slightly lower than his baseline. INR was ordered but pending on admission. BMP was unremarkable. BUN was actually low. Creatinine was normal. Calcium was low. T bili slightly elevated at 4.2 up from a baseline of about 2.6. AST was elevated as well at 134 slightly up from his baseline. Troponin was negative. Lipase was unremarkable. UA was negative. Alcohol was 380. Patient was given IV fluids. He was placed on Protonix drip and bolus. Patient was also given thiamine and IV folate. With a negative rectal and no active vomiting of blood did not place him on octreotide at this time. Discussed with the hospitalist as am unsure of the validity of his story but he does have an extensive past medical history and do favor this warrants observation at the minimum to see where this progresses. His vitals remained stable throughout the ER. Triage Nursing notes reviewed. Prior medical records reviewed Vital Signs: reviewed and remarkable for no significant abnormalities Differential diagnosis: Differential diagnosis includes etiologies such as diverticulitis, diverticulosis, AVM, coagulopathy, colitis, inflammatory bowel disease, malignancy, Kellie-Cueto tear, esophagitis, peptic ulcer disease, variceal bleed, gastritis, epistaxis, fissure, hemorrhoids, as well as others were entertained. ER treatment provided: See below Diagnostics interpreted by me: ECG: Sinus rhythm rate 81 Normal axis No PVCs Cardiac Monitoring: An order was placed for continuous cardiac monitoring. The monitor shows a rate of 82 with sinus rhythm. Laboratory studies: As stated above and show below. Imaging studies: CT abdomen pelvis shows cirrhosis with ascites Consultation(s): Discussed with Jackie delgadillo [facility] Hospitalist. ED COURSE: Procedures: none Critical Care: None Past Med/Surg History Medical History (Updated 04/19/20 @ 19:53 by Kyle Poe DO) Alcohol abuse (Acute) Alcohol dependence (Chronic) Alcoholic cirrhosis of liver without ascites (Chronic) Atrial fibrillation Chronic anxiety (Chronic) Chronic obstructive pulmonary disease Chronic pancreatitis (Chronic) COPD, mild (Chronic) Esophageal varices (Chronic) Hypertension Hypothyroidism (Chronic) Myocardial Infarction On home oxygen therapy Paroxysmal atrial fibrillation (Chronic) Pulmonary embolism Seizure Surgical History (Updated 04/19/20 @ 19:14 by Jackei Torres PA-C) H/O colonoscopy (Chronic) History of cholecystectomy (Chronic) "2009" History of esophagogastroduodenoscopy (EGD) (Chronic) "12/15/2014- Small varices. Erosive duodenitis." 01/09/17 - esophageal varicies, gastritis Family History (Updated 04/19/20 @ 19:13 by Jackie Torres PA-C) Mother Diabetes Father Coronary heart disease Social History (Updated 04/19/20 @ 19:13 by Jackie Torres PA-C) Preferred Language: Singaporean Communication Ability: Effective Visual Impairment: No Limitations Endodontic Assistant Required: No Beliefs That Will Affect Care: None marital status: Current Living Situation: Parent Feels Safe at Home: Yes Smoking Status: Current every day smoker Tobacco Type: cigarettes ; Cigarettes Per Day: 20 ; Second Hand Exposure: No ; Hx Alcohol Use: Yes Alcohol type: beer Alcohol Intake Frequency Comment: 4 32 oz [employer] daily Hx Substance Use: No Allergies Allergies Allergy/AdvReac Type Severity Reaction Status Date / Time fentanyl Allergy Intermediate RASH ALL Verified 04/19/20 17:43 OVER BODY Home Meds Home Medications Medication Instructions Recorded Confirmed albuterol sulfate [ProAir HFA] 2 puff INHALATION Q6 PRN 01/12/20 04/19/20 Results & Data (ED) Vital Signs Vital Signs - 24 hr 04/19/20 16:28 04/19/20 16:59 04/19/20 17:00 Temperature 36.6 C Temperature Source Oral Pulse Rate 88 80 78 Pulse Rate [Apical] Pulse Rate from SpO2 Sensor 80 78 Respiratory Rate 20 18 17 Respiratory Effort / Characteristics Respiratory Depth Blood Pressure 139/89 Blood Pressure [Right Arm] Blood Pressure Mean 105 Blood Pressure Mean [Right Arm] Blood Pressure Position Sitting Pulse Oximetry 96 97 95 Oxygen Delivery Method Sepsis Recent Fever Within 48 Hours No Sepsis New/Unexplained Change in Mental Status No Sepsis Action Taken by Nursing No Action Required 04/19/20 17:02 04/19/20 17:57 04/19/20 18:00 Temperature Temperature Source Pulse Rate 80 86 89 Pulse Rate [Apical] Pulse Rate from SpO2 Sensor 81 85 89 Respiratory Rate 18 17 18 Respiratory Effort / Characteristics Respiratory Depth Blood Pressure 130/87 124/87 122/80 Blood Pressure [Right Arm] Blood Pressure Mean 98 94 92 Blood Pressure Mean [Right Arm] Blood Pressure Position Pulse Oximetry 95 96 95 Oxygen Delivery Method Room Air Sepsis Recent Fever Within 48 Hours Sepsis New/Unexplained Change in Mental Status Sepsis Action Taken by Nursing 04/19/20 18:01 04/19/20 18:30 04/19/20 18:36 Temperature Temperature Source Pulse Rate 90 92 H 84 Pulse Rate [Apical] Pulse Rate from SpO2 Sensor 89 93 H 84 Respiratory Rate 19 17 17 Respiratory Effort / Characteristics Respiratory Depth Blood Pressure 128/84 Blood Pressure [Right Arm] Blood Pressure Mean 95 Blood Pressure Mean [Right Arm] Blood Pressure Position Pulse Oximetry 95 99 99 Oxygen Delivery Method Sepsis Recent Fever Within 48 Hours Sepsis New/Unexplained Change in Mental Status Sepsis Action Taken by Nursing 04/19/20 19:00 04/19/20 19:30 04/19/20 19:31 Temperature Temperature Source Pulse Rate 83 80 Pulse Rate [Apical] 87 Pulse Rate from SpO2 Sensor Respiratory Rate 17 18 18 Respiratory Effort / Characteristics Non-Labored Respiratory Depth Normal Blood Pressure 124/83 124/78 Blood Pressure [Right Arm] 124/78 Blood Pressure Mean 87 85 Blood Pressure Mean [Right Arm] 93 Blood Pressure Position Pulse Oximetry 97 97 96 Oxygen Delivery Method Room Air Room Air Sepsis Recent Fever Within 48 Hours Sepsis New/Unexplained Change in Mental Status Sepsis Action Taken by Nursing Laboratory Data Result diagrams: 04/19/20 16:57 04/19/20 16:57 Lab Results 04/19/20 04/19/20 04/19/20 Range/Units 16:57 16:57 16:57 WBC 7.95 (4.8-10.8) K/uL RBC 3.74 L (4.7-6.1) M/uL Hgb 14.4 (14.0-18.0) g/dL POC Hgb (14.0-18.0) g/dl Hct 39.7 L (42-52) % POC Hct (42-52) % MCV 106.1 H (80-100) fL MCH 38.5 H (25-34) pg MCHC 36.3 H (32-36) g/dL RDW Std Deviation 52.8 H (36.4-46.3) fL RDW Coeff of Hernandez 13.6 (11.5-14.5) % Plt Count 73 L (130-400) K/uL MPV 12.5 H (7.4-10.4) fL Immature Gran % (Auto) 0.3 % Neut % (Auto) 52.1 % Lymph % (Auto) 33.2 % Nolan % (Auto) 11.8 % Eos % (Auto) 1.8 % Baso % (Auto) 0.8 % Neut # (Auto) 4.15 (1.4-6.5) K/uL Lymph # (Auto) 2.64 (1.2-3.4) K/uL Nolan # (Auto) 0.94 H (0.11-0.59) K/uL Eos # (Auto) 0.14 (0-0.5) K/uL Baso # (Auto) 0.06 (0-0.2) K/uL Immature Gran # (Auto) 0.02 (0.00-0.02) K/uL Platelet Estimate Decreased L (Normal) POC Sodium (135-144) mmol/L Sodium 138 (136-145) mmol/L POC Potassium (3.3-5.0) mmol/L Potassium 3.7 (3.5-5.1) mmol/L POC Chloride (101-112) mmol/L Chloride 106 (98-107) mmol/L Carbon Dioxide 23 (21-32) mmol/L POC Total CO2 (24-31) mmol/L Anion Gap 9.0 (3-11) POC Anion Gap (16-25) mmol/L POC BUN (7-18) mg/dl BUN 4 L (7-18) mg/dl Creatinine 0.79 (0.6-1.4) mg/dl POC Creatinine (0.6-1.3) mg/dl Est Cr Clr Drug Dosing Not Reportable Est GFR ( Amer) 117.2 Est GFR (Non-Af Amer) 101.1 BUN/Creatinine Ratio 5.4 L (10-20) Glucose 95 (70-99) mg/dl POC Glucose (other) (70-99) mg/dl Calcium 7.3 L (8.5-10.1) mg/dl POC Ioniz Calcium Negin (1.12-1.32) mmol/l Total Bilirubin 4.2 H (0.2-1) mg/dl AST 134 H (15-37) U/L ALT 45 (12-78) U/L Alkaline Phosphatase 139 H (45-117) U/L Troponin I < 0.015 (0-0.045) ng/ml Total Protein 7.8 (6.4-8.2) gm/dl Albumin 1.9 L (3.4-5.0) gm/dl Globulin 5.9 H (2.5-4.0) gm/dl Albumin/Globulin Ratio 0.3 L (0.9-2) Lipase 203 (73-393) U/L Specimen Hemolysis Urine Color Urine Appearance (Clear) Urine pH (4.5-7.5) Ur Specific [place] (1.000-1.030) Urine Protein (Negative) Urine Glucose (UA) (Negative) Urine Ketones (Negative) Urine Blood (Negative) Urine Nitrite (Negative) Urine Bilirubin (Negative) Urine Urobilinogen (Negative) Ur Leukocyte Esterase (Negative) Ethyl Alcohol mg/dL 376.0 H (0-3) mg/dl 04/19/20 04/19/20 Range/Units 17:13 17:45 WBC (4.8-10.8) K/uL RBC (4.7-6.1) M/uL Hgb (14.0-18.0) g/dL POC Hgb 15.6 (14.0-18.0) g/dl Hct (42-52) % POC Hct 46 (42-52) % MCV (80-100) fL MCH (25-34) pg MCHC (32-36) g/dL RDW Std Deviation (36.4-46.3) fL RDW Coeff of Hernandez (11.5-14.5) % Plt Count (130-400) K/uL MPV (7.4-10.4) fL Immature Gran % (Auto) % Neut % (Auto) % Lymph % (Auto) % Nolan % (Auto) % Eos % (Auto) % Baso % (Auto) % Neut # (Auto) (1.4-6.5) K/uL Lymph # (Auto) (1.2-3.4) K/uL Nolan # (Auto) (0.11-0.59) K/uL Eos # (Auto) (0-0.5) K/uL Baso # (Auto) (0-0.2) K/uL Immature Gran # (Auto) (0.00-0.02) K/uL Platelet Estimate (Normal) POC Sodium 137 (135-144) mmol/L Sodium (136-145) mmol/L POC Potassium 4.0 (3.3-5.0) mmol/L Potassium (3.5-5.1) mmol/L POC Chloride 100 L (101-112) mmol/L Chloride (98-107) mmol/L Carbon Dioxide (21-32) mmol/L POC Total CO2 24 (24-31) mmol/L Anion Gap (3-11) POC Anion Gap 19.0 (16-25) mmol/L POC BUN 3 L (7-18) mg/dl BUN (7-18) mg/dl Creatinine (0.6-1.4) mg/dl POC Creatinine 1.3 (0.6-1.3) mg/dl Est Cr Clr Drug Dosing Est GFR ( Amer) Est GFR (Non-Af Amer) BUN/Creatinine Ratio (10-20) Glucose (70-99) mg/dl POC Glucose (other) 98 (70-99) mg/dl Calcium (8.5-10.1) mg/dl POC Ioniz Calcium Negin 0.98 L (1.12-1.32) mmol/l Total Bilirubin (0.2-1) mg/dl AST (15-37) U/L ALT (12-78) U/L Alkaline Phosphatase (45-117) U/L Troponin I (0-0.045) ng/ml Total Protein (6.4-8.2) gm/dl Albumin (3.4-5.0) gm/dl Globulin (2.5-4.0) gm/dl Albumin/Globulin Ratio (0.9-2) Lipase (73-393) U/L Specimen Hemolysis Urine Color Yellow Urine Appearance Clear (Clear) Urine pH 6.5 (4.5-7.5) Ur Specific [place] 1.010 (1.000-1.030) Urine Protein Negative (Negative) Urine Glucose (UA) Negative (Negative) Urine Ketones Negative (Negative) Urine Blood Negative (Negative) Urine Nitrite Negative (Negative) Urine Bilirubin Negative (Negative) Urine Urobilinogen Negative (Negative) Ur Leukocyte Esterase Negative (Negative) Ethyl Alcohol mg/dL (0-3) mg/dl Administered Medications Pantoprazole Sodium 40 mg/ (Dextrose) 100 mls @ 20 mls/hr IV Q5H ARMANDO Stop: 05/19/20 18:30 Last Admin: 04/19/20 19:30 Dose: 8 mg/hr, 20 mls/hr Documented by: [id number] Ioversol (Optiray 320 100ml) 93 ml IV ONCE PRN PRN Reason: Interaction Checking Stop: 04/23/20 17:27 Last Admin: 04/19/20 17:28 Dose: 93 ml Documented by: [id number] Discontinued Medications Thiamine HCl 100 mg/ Syringe 10 mls @ 2 mls/min IV NOW STA Stop: 04/19/20 17:20 Last Admin: 04/19/20 17:59 Dose: 2 mls/min Documented by: [id number] Folic Acid 1 mg/ Syringe 10 mls @ 5 mls/min IV NOW STA Stop: 04/19/20 17:17 Last Admin: 04/19/20 17:58 Dose: 5 mls/min Documented by: [id number] Pantoprazole Sodium (Protonix Bolus/Drip) 0 mls @ 1 mls/hr IV ONE STA Stop: 04/19/20 18:17 Last Admin: 04/19/20 19:22 Dose: Not Given Documented by: [id number] Pantoprazole Sodium 80 mg/ (Dextrose) 120 mls @ 400 mls/hr IV NOW ONE Stop: 04/19/20 18:33 Last Admin: 04/19/20 18:45 Dose: 400 mls/hr Documented by: [id number] Magnesium Sulfate/Dextrose (Magnesium Sulfate / D5w) 1 gm in 100 mls @ 100 mls/hr IV NOW ONE Stop: 04/19/20 19:49 Last Admin: 04/19/20 19:30 Dose: 100 mls/hr Documented by: [id number] Discharge Plan Visit Data Chief Complaint: Abdominal Pain Stated Complaint: right side flank pain, sob, belly button pain ED Provider: Kyle Poe Discharge Problem: Acute lower gastrointestinal bleeding, BRBPR (bright red blood per rectum), Alcohol dependence, Esophageal varices, Alcoholic cirrhosis of liver with ascites, Alcohol intoxication Forms Stand Alone Forms: [facility] [employer] Prescriptions Prescriptions: No Action albuterol sulfate [ProAir HFA] 90 mcg/actuation HFA aerosol inhaler 2 puff INHALATION Q6 PRN (Reason: Shortness Of Breath Or Wheezing) RF: 0 Discharge Problem: Alcohol dependence Qualifiers: Substance use status: unspecified alcohol-induced disorder Qualified Code(s): F10.29 - Alcohol dependence with unspecified alcohol-induced disorder Esophageal varices Qualifiers: Esophageal varices type: unspecified type Alcohol intoxication Qualifiers: Complication of substance-induced condition: with unspecified complication Qualified Code(s): F10.929 - Alcohol use, unspecified with intoxication, unspecified
[2020-04-19] MEDS ORDERED: FOLIC ACID 1 MG in SYRINGE 9.8 ML IV STA (17:16)
[2020-04-19] MEDS ORDERED: THIAMINE HCL 100 MG in SYRINGE 9 ML IV STA (17:16)
[2020-04-19 17:25] LABS: iSTAT Creatinine 1.3 mg/dl (0.6-1.3); iSTAT Hemoglobin 15.6 g/dl (14.0-18.0); iSTAT Ionized Calcium 0.98 mmol/l (1.12-1.32)
[2020-04-19] MEDS ORDERED: IOVERSOL 100ml IV PRN (17:28)
--- NOTE | 2020-04-19 17:34 | XRay Report ---
SINGLE VIEW CHEST CLINICAL HISTORY: Atypical chest pain. FINDINGS: An AP, portable, upright chest radiograph is compared to study dated 02/15/2020 and correlat ed with chest CT dated 11/10/2019. The examination is degraded by portable technique and patient rotati on. The cardiomediastinal silhouette is unremarkable. Emphysema and chronic interstitial thickening are similar to previous. There is mild bibasilar scarring/atelectasis. No airspace consolidation or l arge pleural effusion is identified. Enlarged and the central pulmonary arteries suggests pulmonary a rtery hypertension. No pneumothorax is seen. The skeletal structures are osteopenic. The bony thorax is grossly intact. IMPRESSION: Emphysematous change with no active disease in the chest. ACT 112: Negative or not required by law. Electronically signed by: Salazar Segura M.D. 04/19/2020 5:33 PM
[2020-04-19 17:41] LABS: Alanine Aminotransferase 45 U/L (12-78); Albumin Level 1.9 gm/dl (3.4-5.0); Aspartate Aminotransferase 134 U/L (15-37); BUN Creatinine Ratio 5.4 (10-20); Blood Urea Nitrogen 4 mg/dl (7-18); Calcium 7.3 mg/dl (8.5-10.1); Carbon Dioxide 23 mmol/L (21-32); Chloride 106 mmol/L (98-107); Est GFR (African American) 117.2; Est GFR (Non-African American) 101.1; Glucose 95 mg/dl (70-99); Lipase 203 U/L (73-393); Potassium 3.7 mmol/L (3.5-5.1); Sodium 138 mmol/L (136-145)
[2020-04-19 17:45] LABS: Albumin Globulin Ratio 0.3 (0.9-2); Alkaline Phosphatase 139 U/L (45-117); Bilirubin,Total 4.2 mg/dl (0.2-1); Globulin 5.9 gm/dl (2.5-4.0); Total Protein 7.8 gm/dl (6.4-8.2); Troponin I < 0.015 ng/ml (0-0.045)
--- NOTE | 2020-04-19 17:46 | CT Scan Report ---
CT SCAN OF THE ABDOMEN AND PELVIS WITH IV CONTRAST CLINICAL HISTORY: Generalized abdominal pain. COMPARISON STUDY: Abdominal CT dated 03/20/2019 and 09/15/2017. TECHNIQUE: Following the IV administration of 93 cc of Optiray 320, CT scan of the abdomen and pelvi s is performed from the lung bases to the proximal femora. Images are reviewed in the axial, sagittal , and coronal planes. IV contrast was administered without complication. A dose lowering technique wa s utilized adhering to the principles of ALARA. CT DOSE: 634.56 mGycm FINDINGS: Lung bases: The heart is normal in size and without pericardial effusion. There are coronary artery c alcifications. A 4 mm pulmonary nodule the right lung base is again seen on image #63. There is no ai rspace consolidation or pleural effusion. There is a small hiatal hernia. Esophageal varices are iden tified. Gynecomastia is noted. Liver: The contrast-enhanced liver is cirrhotic in morphology and heterogeneous in attenuation. There is nodularity of the hepatic surface contour. Diffusely diminished hepatic attenuation indicates angeles atosis. There is no intrahepatic biliary ductal dilatation. The hepatic veins and portal veins are pa tent. There are perigastric collaterals and a splenorenal shunt. Retroperitoneal collaterals are also seen around the right kidney. Gallbladder: Surgically absent noting clips in the gallbladder fossa. Spleen: Normal in size and attenuation. Pancreas: Moderately atrophic and grossly unremarkable. Adrenal glands: Unremarkable. Kidneys: The contrast enhanced kidneys are normal in size and without hydronephrosis. The kidneys enh ance symmetrically. Abdominal vasculature: The abdominal aorta is normal in course and caliber noting moderate atheroscle rotic calcification. Bowel: There is mild colonic diverticulosis without CT evidence of acute diverticulitis. No bowel obs truction is identified. The appendix is well-visualized and normal. Wall thickening is noted in the right colon. Fold thickening is suggested involving the loops of proximal small bowel. This is simila r to previous. Peritoneum: There is a small to moderate volume of abdominopelvic ascites. No intraperitoneal free ai r is seen. There is a fat and ascitic fluid containing umbilical hernia. Lymphadenopathy: Prominent lymph nodes in the samson hepatis are likely related to chronic liver disea se. Pelvic viscera: The bladder is distended but otherwise normal in appearance. The prostate and seminal vesicles are normal as visualized. Skeletal structures: The skeletal structures are osteopenic. There are healed left pubic ring fractur es, healed bilateral rib fractures, and mild compression deformities of L2 and L3. No lytic or blasti c lesions are seen. IMPRESSION: 1. The liver is cirrhotic in morphology and heterogeneous in attenuation. 2. Abdominal ascites, esophageal varices, a splenorenal shunt, and additional collaterals throughout the abdomen and retroperitoneum indicate portal hypertension. 3. Wall thickening of the right colon is nonspecific and likely related to portal colopathy. Clinical correlation will be required. 4. 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 Correlate clinically for evidence of a nonspecific enterocolitis. 5. Bladder distention. 6. A 4 mm pulmonary nodule the right lung base is unchanged from previous. 7. Additional findings as above. ACT 112: Negative or not required by law. Electronically signed by: Salazar Segura M.D. 04/19/2020 5:45 PM
[2020-04-19 17:59] LABS: Appearance Urine Clear (Clear); Bilirubin Urine Negative (Negative); Blood Urine Negative (Negative); Color Urine Yellow; Glucose Urine UA Negative (Negative); Ketones Urine Negative (Negative); Leukocyte Esterase Urine Negative (Negative); Nitrite Urine Negative (Negative); Protein Urine Negative (Negative); Urobilinogen Urine Negative (Negative); pH Urine 6.5 (4.5-7.5)
[2020-04-19 17:59] LABS: Basophils # (auto) 0.06 K/uL (0-0.2); Basophils % (auto) 0.8 %; Eosinophils # (auto) 0.14 K/uL (0-0.5); Eosinophils % (auto) 1.8 %; Hematocrit (blood only) 39.7 % (42-52); Hemoglobin 14.4 g/dL (14.0-18.0); Immature Granulocytes # (auto) 0.02 K/uL (0.00-0.02); Immature Granulocytes % (auto) 0.3 %; Lymphocytes # (auto) 2.64 K/uL (1.2-3.4); Lymphocytes % (auto) 33.2 %; Mean Corpuscular Hemoglobin 38.5 pg (25-34); Mean Corpuscular Hgb Conc 36.3 g/dL (32-36); Mean Corpuscular Volume 106.1 fL (80-100); Mean Platelet Volume 12.5 fL (7.4-10.4); Monocytes # (auto) 0.94 K/uL (0.11-0.59); Monocytes % (auto) 11.8 %; Neutrophils # (auto) 4.15 K/uL (1.4-6.5); Neutrophils % (auto) 52.1 %; Platelet Count 73 K/uL (130-400); Platelet Estimate Decreased (Normal); RDW Coefficient of Variation 13.6 % (11.5-14.5); RDW Standard Deviation 52.8 fL (36.4-46.3); Red Blood Count 3.74 M/uL (4.7-6.1); White Blood Count 7.95 K/uL (4.8-10.8)
[2020-04-19] MEDS ORDERED: PANTOprazole 80 MG in DEXTROSE 5% 100 ML IV ONE (18:16)
[2020-04-19] MEDS ORDERED: PANTOPRAZOLE BOLUS/DRIP 1 EA IV STA (18:16)
[2020-04-19] MEDS ORDERED: POTASSIUM PHOS 3 MMOL/1 ML INFUSION IV STA (18:32)
[2020-04-19] MEDS ORDERED: MAGNESIUM SULFATE / D5W 1 GM/100 ML BAG IV ONE (18:50)
[2020-04-19] MEDS ORDERED: POTASSIUM PHOSPHATE 15 MMOL in SODIUM CHLORIDE 0.9% 250 ML IV ONE (19:00)
[2020-04-19] MEDS ORDERED: MULTI-VITAMIN INFUSION 10 ML, THIAMINE HCL 100 MG, FOLIC ACID 1 MG in SODIUM CHLORIDE 0... IV SCH (19:00)
--- NOTE | 2020-04-19 19:03 | History & Physical Report ---
Date of Service April 19, 2020 Assessment & Plan (1) BRBPR (bright red blood per rectum): (2) Alcoholic cirrhosis of liver with ascites: This is a 54-year-old male who has significant PMH of alcoholic liver cirrhosis with ascites, esophageal varices portal hypertension, COPD, alcohol abuse, tobacco abuse, chronic pancreatitis, thrombocytopenia due to hypersplenism who presents to ED secondary to abdominal pain, diarrhea and BRBPR x4 days. Please refer to Dr. Murray Attending Addendum for details regarding assessment and plan. (3) Esophageal varices: (4) Portal hypertension: (5) Transaminitis: (6) Thrombocytopenia: (7) Alcohol abuse: (8) Hypothyroidism: History of Present Illness Chief Complaint: abdominal pain, diarrhea and BRBPR x 4 days. Primary Care Provider: NO PCP This is a 54-year-old male who has significant PMH of alcoholic liver cirrhosis with ascites, esophageal varices portal hypertension, COPD, alcohol abuse, t obacco abuse, chronic pancreatitis, thrombocytopenia due to hypersplenism who presents to ED secondary to abdominal pain, diarrhea and BRBPR x4 days. He states his last alcoholic drink was 3 hours prior to arrival. He drinks 4-32 ounce Sesay highlights daily. He noticed over the past 3 to 4 days he has been having abdominal pain in the epigastric and right lower quadrant region. Pain is constant, made worse with deep breathing, associated with diarrhea and BRBPR for the past 4 days. He noticed bright red blood in toilet bowl and on toilet tissue. Nothing alleviates the pain. Abdominal pain has been present for several years but was concerned due to bleeding from rectum. Had similar symptoms approximately 3 years ago but unsure what happened at that time. He is overall a poor historian. He denies any recent fever, chills, sweats, lightheadedness, dizziness, syncope, chest pain, shortness of breath, cough, nausea, vomiting, dysuria, increased urgency or frequency with urination. He denies any known food exposure, loss of taste or smell. He is prescribed medications but states he is not taking any oral medications. He does use 3 L of O2 at bedtime. Overall general poor appetite. In ED patient remained hemodynamically stable. H&H was stable at 14.4 and 39.7, platelets low at 73, K3.7, BUN 4, creatinine 0.79, total bilirubin 4.2, AST 134, ALT 45, albumin 1.9, lipase WNL. Urinalysis WNL. Ethyl alcohol high 376. In ED he was started on Protonix bolus and drip and received thiamine and folic acid IV. Allergies Allergy/AdvReac Type Severity Reaction Status Date / Time fentanyl Allergy Intermediate RASH ALL Verified 04/19/20 17:43 OVER BODY Home Medications Home Medications Medication Instructions Recorded Confirmed Type albuterol sulfate [ProAir HFA] 2 puff INHALATION Q6 PRN 01/12/20 04/19/20 History Past Med/Surg History Medical History (Updated 04/19/20 @ 19:23 by Jackie Torres PA-C) Alcohol abuse (Acute) Alcohol dependence (Chronic) Alcoholic cirrhosis of liver without ascites (Chronic) Atrial fibrillation Chronic anxiety (Chronic) Chronic obstructive pulmonary disease Chronic pancreatitis (Chronic) COPD, mild (Chronic) Esophageal varices (Chronic) Hypertension Hypothyroidism (Chronic) Myocardial Infarction On home oxygen therapy Paroxysmal atrial fibrillation (Chronic) Pulmonary embolism Seizure Surgical History (Updated 04/19/20 @ 19:14 by Jackie Torres PA-C) H/O colonoscopy (Chronic) History of cholecystectomy (Chronic) "2009" History of esophagogastroduodenoscopy (EGD) (Chronic) "12/15/2014- Small varices. Erosive duodenitis." 01/09/17 - esophageal varicies, gastritis Family History (Updated 04/19/20 @ 19:13 by Jackie Torres PA-C) Mother Diabetes Father Coronary heart disease Social History (Updated 04/19/20 @ 19:13 by Jackie Torres PA-C) Preferred Language: Marshallese Communication Ability: Effective Visual Impairment: No Limitations Teacher Home Therapy Required: No Beliefs That Will Affect Care: None marital status: Current Living Situation: Parent Feels Safe at Home: Yes Smoking Status: Current every day smoker Tobacco Type: cigarettes ; Cigarettes Per Day: 20 ; Second Hand Exposure: No ; Hx Alcohol Use: Yes Alcohol type: beer Alcohol Intake Frequency Comment: 4 32 oz [place] life daily Hx Substance Use: No Review of Systems Review of Systems: All systems reviewed & are unremarkable except as noted in HPI & below Physical Exam Physical Exam: Constitutional: Chronically ill-appearing male, appears older than stated age, vitals as above, NAD, sitting up in bed, answers questions appropriate Head: Normocephalic, Atraumatic Eyes: PERRL, conjunctivae normal, anicteric sclerae ENMT: external ear and nose normal, oropharynx normal, very poor dentition Neck: trachea midline, no thyromegaly normal visual inspection Respiratory: normal respiratory effort, lungs clear to auscultation, no wheeze, rales, rhonchi. Normal insp/exp effort, no accessory muscle use Cardiovascular: RRR, no murmur, no edema Vessels: no JVD or carotid bruit Chest: normal inspection of chest Abdomen: Distended abdomen, normal bowel sounds, soft, nontender to palpation Musculoskeletal: no cyanosis or clubbing, extremities motor strength 5/5 Skin: no rashes, warm and dry normal turgor Neurologic: PERRL, EOMI, accommodation nl, no face palsy, no dysarthria CN's II-XI intact bilaterally and moves all extremities Psychiatric: A+Ox3 to basics, euthymic affect Lymphatic: no cervical or axillary lymphadenopathy : deferred Results & Data Results & Data ([facility]) Vital Signs (Past 12 Hours) Vital Signs Temp Pulse Resp BP Pulse Ox 04/19/20 18:36 84 17 128/84 99 04/19/20 18:30 92 H 17 99 04/19/20 18:01 90 19 95 04/19/20 18:00 89 18 122/80 95 04/19/20 17:57 86 17 124/87 96 04/19/20 17:02 80 18 130/87 95 04/19/20 17:00 78 17 95 04/19/20 16:59 80 18 97 04/19/20 16:28 36.6 C 88 20 139/89 96 Laboratory Results Short CBC 04/19/20 04/19/20 Range/Units 16:57 16:57 WBC 7.95 (4.8-10.8) K/uL Hgb 14.4 (14.0-18.0) g/dL Hct 39.7 L (42-52) % Plt Count 73 L (130-400) K/uL Total Bilirubin 4.2 H (0.2-1) mg/dl BMP 04/19/20 16:57 Sodium 138 Potassium 3.7 Chloride 106 Carbon Dioxide 23 BUN 4 L Creatinine 0.79 Glucose 95 Calcium 7.3 L Cardiac Enzymes 04/19/20 Range/Units 16:57 Troponin I < 0.015 (0-0.045) ng/ml Liver Function 04/19/20 Range/Units 16:57 Total Bilirubin 4.2 H (0.2-1) mg/dl AST 134 H (15-37) U/L ALT 45 (12-78) U/L Alkaline Phosphatase 139 H (45-117) U/L Albumin 1.9 L (3.4-5.0) gm/dl Urine 04/19/20 Range/Units 17:45 Urine Color Yellow Urine Appearance Clear (Clear) Urine pH 6.5 (4.5-7.5) Ur Specific [place] 1.010 (1.000-1.030) Urine Protein Negative (Negative) Urine Glucose (UA) Negative (Negative) Diagnostic Findings CXR: IMPRESSION: Emphysematous change with no active disease in the chest. Abd/Pelvis: IMPRESSION: 1. The liver is cirrhotic in morphology and heterogeneous in attenuation. 2. Abdominal ascites, esophageal varices, a splenorenal shunt, and additional collaterals throughout the abdomen and retroperitoneum indicate portal hypertension. 3. Wall thickening of the right colon is nonspecific and likely related to portal colopathy. Clinical correlation will be required. 4. Fold thickening is seen involving loops of small bowel, and likely related to hypoproteinemia/chronic liver disease. Correlate clinically for evidence of a nonspecific enterocolitis. 5. Bladder distention. 6. A 4 mm pulmonary nodule the right lung base is unchanged from previous. 7. Additional findings as above. Medications Administered Ioversol (Optiray 320 100ml) 93 ml IV ONCE PRN PRN Reason: Interaction Checking Stop: 04/23/20 17:27 Last Admin: 04/19/20 17:28 Dose: 93 ml Documented by: [id number] Discontinued Medications Thiamine HCl 100 mg/ Syringe 10 mls @ 2 mls/min IV NOW STA Stop: 04/19/20 17:20 Last Admin: 04/19/20 17:59 Dose: 2 mls/min Documented by: [id number] Folic Acid 1 mg/ Syringe 10 mls @ 5 mls/min IV NOW STA Stop: 04/19/20 17:17 Last Admin: 04/19/20 17:58 Dose: 5 mls/min Documented by: [id number] ECG Rate (beats per minute): 81 Rhythm: normal sinus Code Status & VTE Plan Code Status Full Code VTE Prophylaxis Plan VTE Prophylaxis will be ordered: Yes Reason for no VTE drug order: Contraindicated Supervising Physician Co-Signing Physician Notes I, Dr. Alexis Murray, have seen and examined the patient with physician habilitation assistant and would like to comment that On Physical exam Neurological/Psychological: alert and oriented x 3 and able to answer questions in regards to personal health history, is anxious at times General: at times uncomfortable because of leg cramp of abdominal distension HEENT: extraoccular movements intact Heart: regular rate Lungs: clear to auscultation bilaterally Abdomen: distended Extremities: no gross swelling of the legs Assessment and plan ALCOHOLIC ABUSE ALCOHLIC CIRRHOSIS WITH ASCITES ESOPHAGEAL VARICES POSSIBLE GASTROINTESTINAL BLEED THROMBOCYTOPENIA, CHRONIC TRANSAMINITIS -This is a patient with known history of alcohol abuse. Main concern is gastrointestinal bleed. Another possibility is that is discomfort is abdominal distention from ascites -Hgb is 14 and GI bleed is less likely, patient did not have a fecal occult blood stool, should send, but by history concern for GI bleed and patient may benefit from upper EGD versus colonoscopy. Trend the CBC. Patient has medical decision making capacity and signed consent for blood transfusion is needed (no suspicion of COVID-19, but will send for COVID-19 preoperative screening test for person not under investigation) -give IV pantoprazole and IV octreotide -will keep NPO except sips and chips, will give Golytely as gastrointestinal prep as he can tolerate. Will ask gastroenterology to evaluate -CT abdomen 1. The liver is cirrhotic in morphology and heterogeneous in attenuation. 2. Abdominal ascites, esophageal varices, a splenorenal shunt, and additional collaterals throughout the abdomen and retroperitoneum indicate portal hypertension. 3. Wall thickening of the right colon is nonspecific and likely related to portal colopathy. Clinical correlation will be required. 4. Fold thickening is seen involving loops of small bowel, and likely related to hypoproteinemia/chronic liver disease. Correlate clinically for evidence of a nonspecific enterocolitis. 5. Bladder distention. 6. A 4 mm pulmonary nodule the right lung base is unchanged -give ceftriaxone as prophylaxis against spontaneous bacterial peritonitis, follow blood/urine cultures. If no evidence for GI bleed, then can consider later the role of paracentesis for diagnostic and therapeutic treatment of distention -give thiamine, folic acid, banana bag, IV magnesium, IV phosphorous, IV potassium, IV fluids to prevent muscle cramps in context of alcohol use -alcohol withdrawal protocol with Librium, monitor on telemetry -DVT prophylaxis is SCDs -agree with other assessment and plans and history as documented by physician habilitation assistant
[2020-04-19] MEDS: PANTOprazole 40 MG in DEXTROSE 5% 100 ML IV SCH (19:30)
[2020-04-19 19:57] LABS: INR 1.6 (0.9-1.1)
[2020-04-19 20:12] LABS: Bilirubin Direct 1.7 mg/dl (0-0.2); Magnesium 1.7 mg/dl (1.8-2.4); Phosphorus 3.2 mg/dl (2.5-4.9); Thyroid Stimulating Hormone 7.26 uIu/ml (0.300-4.500)
[2020-04-19 20:24] LABS: T4 Free Thyroxine 1.23 ng/dl (0.8-1.6)
[2020-04-19 20:33] LABS: Amphetamines+Metham, Urine Neg (Neg); Barbiturates, Urine Neg (Neg); Benzodiazepine, Urine Neg (Neg); Cocaine, Urine Neg (Neg); MDMA (Ecstacy), Urine Neg (Neg); Methadone, Urine Neg (Neg); Opiate, Urine Neg (Neg); Phencyclidine, Urine Neg (Neg)
[2020-04-19] MEDS ORDERED: ACETAMINOPHEN 325 MG TAB PO PRN (23:40)
[2020-04-19] MEDS ORDERED: ALBUT/IPRATROP 3MG/0.5MG NEB 3 ML VIAL NEB PRN (23:40)
[2020-04-19] MEDS ORDERED: GLUCOSE 40% GEL 15 GM TUBE PO PRN (23:40)
[2020-04-19] MEDS ORDERED: LORazepam 1 MG/2 ML VIAL IV PRN (23:40)
[2020-04-19] MEDS ORDERED: LORazepam 3 MG/6 ML VIAL IV PRN (23:40)
[2020-04-19] MEDS ORDERED: chlordiazePOXIDE ALCOHOL WITHDRAWL 25MG PO STA (23:40)
[2020-04-19] MEDS ORDERED: GLUCAGON FOR INJ 1 MG VIAL SQ PRN (23:40)
[2020-04-19] MEDS ORDERED: GLUCOSE 10 TABS/TUBE PO PRN (23:40)
[2020-04-19] MEDS ORDERED: SODIUM CHLORIDE 0.9% 1000ML 1,000 ML IV SCH (23:40)
[2020-04-19] MEDS ORDERED: CALCIUM GLUCONATE 10% 1,000 MG in SODIUM CHLORIDE 0.9% 50 ML IV STA (23:40)
[2020-04-19] MEDS ORDERED: ONDANSETRON INJ 2 MG/ML 2 ML VIAL IV PRN (23:40)
[2020-04-19] MEDS ORDERED: ALUMINUM/MAGNESIUM SUSP 30 ML UDC PO PRN (23:40)
[2020-04-19] MEDS ORDERED: ATIVAN IV ALCOHOL WITHDRAWL IV PRN (23:40)
[2020-04-19] MEDS ORDERED: LORazepam 2 MG/4 ML VIAL IV PRN (23:40)
[2020-04-19] MEDS ORDERED: PANTOprazole 40 MG in DEXTROSE 5% 100 ML IV SCH (23:40)
[2020-04-19] MEDS ORDERED: CARBOHYDRATES FOR HYPOGLYCEMIA PO PRN (23:40)
[2020-04-19] MEDS ORDERED: DEXTROSE 50% 50 ML SYRINGE IV PRN (23:40)
[2020-04-20] MEDS: PANTOprazole 40 MG in DEXTROSE 5% 100 ML IV SCH ×4 (00:17→15:51)
[2020-04-20 01:02] LABS: Hematocrit (blood only) 37.2 % (42-52); Hemoglobin 12.8 g/dL (14.0-18.0); Mean Corpuscular Hemoglobin 37.1 pg (25-34); Mean Corpuscular Hgb Conc 34.4 g/dL (32-36); Mean Corpuscular Volume 107.8 fL (80-100); Mean Platelet Volume 12.4 fL (7.4-10.4); Platelet Count 56 K/uL (130-400); RDW Standard Deviation 55.1 fL (36.4-46.3); Red Blood Count 3.45 M/uL (4.7-6.1); White Blood Count 5.12 K/uL (4.8-10.8)
[2020-04-20] MEDS: FOLIC ACID 1 MG TAB PO SCH ×2 (01:34→08:58)
[2020-04-20] MEDS: THIAMINE HCL 100 MG TAB PO SCH ×2 (01:34→08:58)
[2020-04-20] MEDS: chlordiazePOXIDE HCl 25 MG CAP PO SCH ×5 (01:37→23:34)
[2020-04-20] MEDS: OCTREOTIDE ACETATE 500 MCG in 0.9 % SODIUM CHLORIDE 100 ML IV SCH ×2 (01:38→11:07)
[2020-04-20] MEDS: LAVAGE SOLUTION 4000ML PO SCH ×8 (02:21→18:31)
[2020-04-20] MEDS: cefTRIAXone SODIUM 2,000 MG in DEXTROSE 5% 50 ML IV SCH (04:26)
[2020-04-20] MEDS ORDERED: ACETAMINOPHEN 325 MG TAB PO PRN (07:13)
--- NOTE | 2020-04-20 08:10 | Ultrasound Report ---
US abdomen limited HISTORY: Ascites eval for ascites. COMPARISON: None. FINDINGS: Survey evaluation of the abdomen and pelvis was performed for evaluation for potential ascites. There is a minimal amount of perihepatic ascites. There are no major collections. IMPRESSION: Small amount of perihepatic ascites. Otherwise no significant ascitic fluid collection. ACT 112: Negative or not required by law. The above report was generated using voice recognition software. It may contain grammatical, syntax or spelling errors. Electronically signed by: Jean Pereyra M.D. 04/20/2020 8:09 AM
--- NOTE | 2020-04-20 09:48 | Gastrointestinal Consultation ---
Date of Consultation April 20, 2020 Assessment & Plan (1) Acute lower gastrointestinal bleedin54 year old male with history of history of alcoholic liver cirrhosis with ascites, esophageal varices portal hypertension, COPD, alcohol abuse, tobacco abuse, chronic pancreatitis, thrombocytopenia admitted for abd pain, midline end rectal bleeding 3/4 episodes a day for 3/4 days. Vitals stable, HGB 12.8 without BUN elevation. Last EGD w/ report of varices NPO ETOH withdrawal protocol He was given golytetly but did not drink this or have any BM EGD today Trend H&H Montior BM Transfuse PRN IV PPI bolus, drip ETOH cessation was recommended Thank you for allowing us to participate in the care of this patient. Please call with any acute changes, questions or concerns. Please see addendum below with additional recommendation from my supervising physician. (2) Alcoholic cirrhosis of liver with ascites: Supervising Physician Co-Signing Physician Notes I saw and evaluated the patient. The patient is known to our service from a prior admission for similar problem several years ago. He does appear to have evidence of acute alcoholic hepatitis with an elevated bilirubin. In addition there is a concern with regard to hematochezia. Given his underlying liver disease we should do further evaluation with an upper endoscopy. Physical exam No apparent distress Scleral icterus noted Abdomen soft nontender Impression: Patient presenting for evaluation of hematochezia. Given the history of liver disease we will proceed with upper endoscopy today to evaluate for evidence of esophageal varices. If negative we can certainly make arrangements for colonoscopy during this admission or as an outpatient over the next few weeks. The patient does also appear to have acute alcoholic hepatitis with a discriminant function index of 22. At the present time we would recommend conservative management with IV hydration, B12 and folate replacement. Would recommend watching his electrolytes in particular magnesium and phosphorus. The patient is should have daily labs to include a CMP and PT/INR. History of Present Illness Reason for Consultation: rectal bleeding Requesting Physician: Trevor Attending Physician: Alexis Murray MD History of Present Illness 54-year-old male w/ history of alcoholic liver cirrhosis with ascites, esophageal varices portal hypertension, COPD, alcohol abuse, tobacco abuse, chronic pancreatitis, thrombocytopenia due to hypersplenism who presents to ED secondary to abdominal pain, diarrhea and BRBPR x 4 days. He is a poor historian. Suggests 3/4 days of 3/4 episodes of bright red blood in stool. No melena. No hematemesis or coffee ground emesis. No UGI symptoms. Has had some abd cramping, lower, associated with BM. He continue to drink ETOH. his last alcoholic drink was 3 hours prior to arrival. Typically 3/4-32 ounces of beer daily. He denies any recent fever, chills, sweats, lightheadedness, dizziness, syncope, chest pain, shortness of breath, cough, nausea, vomiting, dysuria, increased urgency or frequency with urination. Allergies Allergy/AdvReac Type Severity Reaction Status Date / Time fentanyl Allergy Intermediate RASH ALL Verified 04/20/20 14:17 OVER BODY Home Medications Home Medications Medication Instructions Recorded Confirmed Type albuterol sulfate [ProAir HFA] 2 puff INHALATION Q6 PRN 01/12/20 04/19/20 History Patient History Medical History Alcohol abuse (Acute) Alcohol dependence (Chronic) Alcoholic cirrhosis of liver without ascites (Chronic) Atrial fibrillation Chronic anxiety (Chronic) Chronic obstructive pulmonary disease Chronic pancreatitis (Chronic) COPD, mild (Chronic) Esophageal varices (Chronic) Hypertension Hypothyroidism (Chronic) Myocardial Infarction On home oxygen therapy Paroxysmal atrial fibrillation (Chronic) Pulmonary embolism Seizure Surgical History H/O colonoscopy (Chronic) History of cholecystectomy (Chronic) "2009" History of esophagogastroduodenoscopy (EGD) (Chronic) "12/15/2014- Small varices. Erosive duodenitis." 01/09/17 - esophageal varicies, gastritis Family History Mother Diabetes Father Coronary heart disease Social History (Updated 04/19/20 @ 19:13 by Jackie Torres PA-C) Preferred Language: Macanese Communication Ability: Effective Visual Impairment: No Limitations Churn Driller Required: No Beliefs That Will Affect Care: None marital status: Current Living Situation: Parent Feels Safe at Home: Yes Safety Concerns: Feels Safe At This Time Smoking Status: Current every day smoker Tobacco Type: cigarettes ; Cigarettes Per Day: 20 ; Do You Dip or Chew Tobacco: No ; Second Hand Exposure: No ; Tobacco Cessation Education Requested by Patient: No Hx Alcohol Use: Yes Alcohol type: beer Alcohol Intake Frequency Comment: 4 32 oz Beam Express daily Hx Substance Use: No Review of Systems Constitutional: no fever, no chills, no fatigue and no anorexia Respiratory: + dyspnea; no cough, no sputum production and no wheezing Cardiovascular: + dyspnea; no chest pain, no palpitations and no edema Gastrointestinal: + abdominal pain and + blood in stools; no nausea, no coffee ground emesis, no dysphagia, no change in bowel habits and no diarrhea/loose stools Physical Exam Constitutional: WD/WN, vitals as above no acute distress and not ill appearing Neck: trachea midline Respiratory: normal respiratory effort; no respiratory distress and no labored breathing Auscultation: + diminished lung sounds (bilateral bases) Cardiovascular: Rate/Rhythm: regular rate and regular rhythm Gastrointestinal (Abdomen): Inspection/Auscultation: normal bowel sounds Percussion/Palpation: + abdomen tender and abdomen soft; no guarding, abdomen not rigid, no abdominal mass and no ascites Skin: no rashes, warm and dry Results & Data ([facility]) Vital Signs (Past 12 Hours) Vital Signs Temp Pulse Pulse Pulse Resp BP BP 04/20/20 07:39 36.7 C 73 18 110/73 04/20/20 04:44 36.7 C 78 18 102/61 04/20/20 00:38 80 04/20/20 00:00 36.6 C 78 16 04/19/20 23:57 36.6 C 78 16 04/19/20 23:00 76 16 96/69 L 04/19/20 22:30 79 17 105/73 04/19/20 22:00 78 17 104/71 BP Pulse Ox Pulse Ox 04/20/20 07:39 94 04/20/20 04:44 93 04/20/20 00:38 04/20/20 00:00 126/84 97 04/19/20 23:57 126/84 97 97 04/19/20 23:00 96 04/19/20 22:30 94 04/19/20 22:00 95 Laboratory Results 04/20/20 04/20/20 04/20/20 Range/Units 09:07 09:07 09:07 WBC Pending (4.8-10.8) K/uL RBC Pending (4.7-6.1) M/uL Hgb Pending (14.0-18.0) g/dL POC Hgb (14.0-18.0) g/dl Hct Pending (42-52) % POC Hct (42-52) % MCV Pending (80-100) fL MCH Pending (25-34) pg MCHC Pending (32-36) g/dL RDW Std Deviation (36.4-46.3) fL RDW Coeff of Hernandez (11.5-14.5) % Plt Count Pending (130-400) K/uL MPV (7.4-10.4) fL Immature Gran % (Auto) % Neut % (Auto) % Lymph % (Auto) % [place] % (Auto) % Eos % (Auto) % Baso % (Auto) % Neut # (Auto) (1.4-6.5) K/uL Lymph # (Auto) (1.2-3.4) K/uL [place] # (Auto) (0.11-0.59) K/uL Eos # (Auto) (0-0.5) K/uL Baso # (Auto) (0-0.2) K/uL Immature Gran # (Auto) (0.00-0.02) K/uL Platelet Estimate (Normal) PT (9.0-12.0) Seconds INR (0.9-1.1) POC Sodium (135-144) mmol/L Sodium Pending (136-145) mmol/L POC Potassium (3.3-5.0) mmol/L Potassium Pending (3.5-5.1) mmol/L POC Chloride (101-112) mmol/L Chloride Pending (98-107) mmol/L Carbon Dioxide Pending (21-32) mmol/L POC Total CO2 (24-31) mmol/L Anion Gap Pending (3-11) POC Anion Gap (16-25) mmol/L POC BUN (7-18) mg/dl BUN Pending (7-18) mg/dl Creatinine Pending (0.6-1.4) mg/dl POC Creatinine (0.6-1.3) mg/dl Est Cr Clr Drug Dosing Pending Est GFR ( Amer) Pending Est GFR (Non-Af Amer) Pending BUN/Creatinine Ratio Pending (10-20) Glucose Pending (70-99) mg/dl POC Glucose (70-99) mg/dl POC Glucose (other) (70-99) mg/dl Calcium Pending (8.5-10.1) mg/dl POC Ioniz Calcium Negin (1.12-1.32) mmol/l Ionized Calcium 1.04 L (1.12-1.32) mmol/L Phosphorus Pending (2.5-4.9) mg/dl Magnesium Pending (1.8-2.4) mg/dl Total Bilirubin Pending (0.2-1) mg/dl Direct Bilirubin (0-0.2) mg/dl AST Pending (15-37) U/L ALT Pending (12-78) U/L Alkaline Phosphatase Pending (45-117) U/L Troponin I (0-0.045) ng/ml Total Protein Pending (6.4-8.2) gm/dl Albumin Pending (3.4-5.0) gm/dl Globulin Pending (2.5-4.0) gm/dl Albumin/Globulin Ratio Pending (0.9-2) Lipase (73-393) U/L Procalcitonin (0-0.5) ng/ml TSH (0.300-4.500) uIu/ml Free T4 (0.8-1.6) ng/dl Specimen Hemolysis Urine Color Urine Appearance (Clear) Urine pH (4.5-7.5) Ur Specific [place] (1.000-1.030) Urine Protein (Negative) Urine Glucose (UA) (Negative) Urine Ketones (Negative) Urine Blood (Negative) Urine Nitrite (Negative) Urine Bilirubin (Negative) Urine Urobilinogen (Negative) Ur Leukocyte Esterase (Negative) Urine Opiates Screen (Neg) Ur Methadone, Qual (Neg) Urine Barbiturates (Neg) Ur Phencyclidine (PCP) (Neg) U Amphetamin/Meth Scrn (Neg) MDMA (Ecstasy) Screen (Neg) U Benzodiazepines Scrn (Neg) Ur Cocaine Metabolite (Neg) U Marijuana (THC) Screen (Neg) Ethyl Alcohol mg/dL (0-3) mg/dl COVID-19 PCR (Negative) SARS-CoV-2 RNA (RT-PCR) Blood Type Antibody Screen 04/20/20 04/20/20 04/20/20 Range/Units 05:51 00:36 00:26 WBC 5.12 (4.8-10.8) K/uL RBC 3.45 L (4.7-6.1) M/uL Hgb 12.8 L (14.0-18.0) g/dL POC Hgb (14.0-18.0) g/dl Hct 37.2 L (42-52) % POC Hct (42-52) % MCV 107.8 H (80-100) fL MCH 37.1 H (25-34) pg MCHC 34.4 (32-36) g/dL RDW Std Deviation 55.1 H (36.4-46.3) fL RDW Coeff of Hernandez 14.0 (11.5-14.5) % Plt Count 56 L (130-400) K/uL MPV 12.4 H (7.4-10.4) fL Immature Gran % (Auto) % Neut % (Auto) % Lymph % (Auto) % [place] % (Auto) % Eos % (Auto) % Baso % (Auto) % Neut # (Auto) (1.4-6.5) K/uL Lymph # (Auto) (1.2-3.4) K/uL [place] # (Auto) (0.11-0.59) K/uL Eos # (Auto) (0-0.5) K/uL Baso # (Auto) (0-0.2) K/uL Immature Gran # (Auto) (0.00-0.02) K/uL Platelet Estimate (Normal) PT (9.0-12.0) Seconds INR (0.9-1.1) POC Sodium (135-144) mmol/L Sodium (136-145) mmol/L POC Potassium (3.3-5.0) mmol/L Potassium (3.5-5.1) mmol/L POC Chloride (101-112) mmol/L Chloride (98-107) mmol/L Carbon Dioxide (21-32) mmol/L POC Total CO2 (24-31) mmol/L Anion Gap (3-11) POC Anion Gap (16-25) mmol/L POC BUN (7-18) mg/dl BUN (7-18) mg/dl Creatinine (0.6-1.4) mg/dl POC Creatinine (0.6-1.3) mg/dl Est Cr Clr Drug Dosing Est GFR ( Amer) Est GFR (Non-Af Amer) BUN/Creatinine Ratio (10-20) Glucose (70-99) mg/dl POC Glucose 74 90 (70-99) mg/dl POC Glucose (other) (70-99) mg/dl Calcium (8.5-10.1) mg/dl POC Ioniz Calcium Negin (1.12-1.32) mmol/l Ionized Calcium (1.12-1.32) mmol/L Phosphorus (2.5-4.9) mg/dl Magnesium (1.8-2.4) mg/dl Total Bilirubin (0.2-1) mg/dl Direct Bilirubin (0-0.2) mg/dl AST (15-37) U/L ALT (12-78) U/L Alkaline Phosphatase (45-117) U/L Troponin I (0-0.045) ng/ml Total Protein (6.4-8.2) gm/dl Albumin (3.4-5.0) gm/dl Globulin (2.5-4.0) gm/dl Albumin/Globulin Ratio (0.9-2) Lipase (73-393) U/L Procalcitonin (0-0.5) ng/ml TSH (0.300-4.500) uIu/ml Free T4 (0.8-1.6) ng/dl Specimen Hemolysis Urine Color Urine Appearance (Clear) Urine pH (4.5-7.5) Ur Specific [place] (1.000-1.030) Urine Protein (Negative) Urine Glucose (UA) (Negative) Urine Ketones (Negative) Urine Blood (Negative) Urine Nitrite (Negative) Urine Bilirubin (Negative) Urine Urobilinogen (Negative) Ur Leukocyte Esterase (Negative) Urine Opiates Screen (Neg) Ur Methadone, Qual (Neg) Urine Barbiturates (Neg) Ur Phencyclidine (PCP) (Neg) U Amphetamin/Meth Scrn (Neg) MDMA (Ecstasy) Screen (Neg) U Benzodiazepines Scrn (Neg) Ur Cocaine Metabolite (Neg) U Marijuana (THC) Screen (Neg) Ethyl Alcohol mg/dL (0-3) mg/dl COVID-19 PCR (Negative) SARS-CoV-2 RNA (RT-PCR) Blood Type Antibody Screen 04/19/20 04/19/20 04/19/20 Range/Units 19:35 19:28 19:25 WBC (4.8-10.8) K/uL RBC (4.7-6.1) M/uL Hgb (14.0-18.0) g/dL POC Hgb (14.0-18.0) g/dl Hct (42-52) % POC Hct (42-52) % MCV (80-100) fL MCH (25-34) pg MCHC (32-36) g/dL RDW Std Deviation (36.4-46.3) fL RDW Coeff of Hernandez (11.5-14.5) % Plt Count (130-400) K/uL MPV (7.4-10.4) fL Immature Gran % (Auto) % Neut % (Auto) % Lymph % (Auto) % [place] % (Auto) % Eos % (Auto) % Baso % (Auto) % Neut # (Auto) (1.4-6.5) K/uL Lymph # (Auto) (1.2-3.4) K/uL [place] # (Auto) (0.11-0.59) K/uL Eos # (Auto) (0-0.5) K/uL Baso # (Auto) (0-0.2) K/uL Immature Gran # (Auto) (0.00-0.02) K/uL Platelet Estimate (Normal) PT (9.0-12.0) Seconds INR (0.9-1.1) POC Sodium (135-144) mmol/L Sodium (136-145) mmol/L POC Potassium (3.3-5.0) mmol/L Potassium (3.5-5.1) mmol/L POC Chloride (101-112) mmol/L Chloride (98-107) mmol/L Carbon Dioxide (21-32) mmol/L POC Total CO2 (24-31) mmol/L Anion Gap (3-11) POC Anion Gap (16-25) mmol/L POC BUN (7-18) mg/dl BUN (7-18) mg/dl Creatinine (0.6-1.4) mg/dl POC Creatinine (0.6-1.3) mg/dl Est Cr Clr Drug Dosing Est GFR ( Amer) Est GFR (Non-Af Amer) BUN/Creatinine Ratio (10-20) Glucose (70-99) mg/dl POC Glucose (70-99) mg/dl POC Glucose (other) (70-99) mg/dl Calcium (8.5-10.1) mg/dl POC Ioniz Calcium Negin (1.12-1.32) mmol/l Ionized Calcium (1.12-1.32) mmol/L Phosphorus (2.5-4.9) mg/dl Magnesium (1.8-2.4) mg/dl Total Bilirubin (0.2-1) mg/dl Direct Bilirubin (0-0.2) mg/dl AST (15-37) U/L ALT (12-78) U/L Alkaline Phosphatase (45-117) U/L Troponin I (0-0.045) ng/ml Total Protein (6.4-8.2) gm/dl Albumin (3.4-5.0) gm/dl Globulin (2.5-4.0) gm/dl Albumin/Globulin Ratio (0.9-2) Lipase (73-393) U/L Procalcitonin 0.15 (0-0.5) ng/ml TSH (0.300-4.500) uIu/ml Free T4 (0.8-1.6) ng/dl Specimen Hemolysis Urine Color Urine Appearance (Clear) Urine pH (4.5-7.5) Ur Specific [place] (1.000-1.030) Urine Protein (Negative) Urine Glucose (UA) (Negative) Urine Ketones (Negative) Urine Blood (Negative) Urine Nitrite (Negative) Urine Bilirubin (Negative) Urine Urobilinogen (Negative) Ur Leukocyte Esterase (Negative) Urine Opiates Screen (Neg) Ur Methadone, Qual (Neg) Urine Barbiturates (Neg) Ur Phencyclidine (PCP) (Neg) U Amphetamin/Meth Scrn (Neg) MDMA (Ecstasy) Screen (Neg) U Benzodiazepines Scrn (Neg) Ur Cocaine Metabolite (Neg) U Marijuana (THC) Screen (Neg) Ethyl Alcohol mg/dL (0-3) mg/dl COVID-19 PCR (Negative) SARS-CoV-2 RNA (RT-PCR) Cancelled Blood Type O Positive Antibody Screen NEGATIVE 04/19/20 04/19/20 04/19/20 Range/Units 19:25 19:25 19:15 WBC (4.8-10.8) K/uL RBC (4.7-6.1) M/uL Hgb (14.0-18.0) g/dL POC Hgb (14.0-18.0) g/dl Hct (42-52) % POC Hct (42-52) % MCV (80-100) fL MCH (25-34) pg MCHC (32-36) g/dL RDW Std Deviation (36.4-46.3) fL RDW Coeff of Hernandez (11.5-14.5) % Plt Count (130-400) K/uL MPV (7.4-10.4) fL Immature Gran % (Auto) % Neut % (Auto) % Lymph % (Auto) % [place] % (Auto) % Eos % (Auto) % Baso % (Auto) % Neut # (Auto) (1.4-6.5) K/uL Lymph # (Auto) (1.2-3.4) K/uL [place] # (Auto) (0.11-0.59) K/uL Eos # (Auto) (0-0.5) K/uL Baso # (Auto) (0-0.2) K/uL Immature Gran # (Auto) (0.00-0.02) K/uL Platelet Estimate (Normal) PT 16.0 H (9.0-12.0) Seconds INR 1.6 H (0.9-1.1) POC Sodium (135-144) mmol/L Sodium (136-145) mmol/L POC Potassium (3.3-5.0) mmol/L Potassium (3.5-5.1) mmol/L POC Chloride (101-112) mmol/L Chloride (98-107) mmol/L Carbon Dioxide (21-32) mmol/L POC Total CO2 (24-31) mmol/L Anion Gap (3-11) POC Anion Gap (16-25) mmol/L POC BUN (7-18) mg/dl BUN (7-18) mg/dl Creatinine (0.6-1.4) mg/dl POC Creatinine (0.6-1.3) mg/dl Est Cr Clr Drug Dosing Est GFR ( Amer) Est GFR (Non-Af Amer) BUN/Creatinine Ratio (10-20) Glucose (70-99) mg/dl POC Glucose (70-99) mg/dl POC Glucose (other) (70-99) mg/dl Calcium (8.5-10.1) mg/dl POC Ioniz Calcium Negin (1.12-1.32) mmol/l Ionized Calcium (1.12-1.32) mmol/L Phosphorus 3.2 (2.5-4.9) mg/dl Magnesium 1.7 L (1.8-2.4) mg/dl Total Bilirubin (0.2-1) mg/dl Direct Bilirubin 1.7 H (0-0.2) mg/dl AST (15-37) U/L ALT (12-78) U/L Alkaline Phosphatase (45-117) U/L Troponin I (0-0.045) ng/ml Total Protein (6.4-8.2) gm/dl Albumin (3.4-5.0) gm/dl Globulin (2.5-4.0) gm/dl Albumin/Globulin Ratio (0.9-2) Lipase (73-393) U/L Procalcitonin (0-0.5) ng/ml TSH 7.260 H (0.300-4.500) uIu/ml Free T4 1.23 (0.8-1.6) ng/dl Specimen Hemolysis Urine Color Urine Appearance (Clear) Urine pH (4.5-7.5) Ur Specific [place] (1.000-1.030) Urine Protein (Negative) Urine Glucose (UA) (Negative) Urine Ketones (Negative) Urine Blood (Negative) Urine Nitrite (Negative) Urine Bilirubin (Negative) Urine Urobilinogen (Negative) Ur Leukocyte Esterase (Negative) Urine Opiates Screen (Neg) Ur Methadone, Qual (Neg) Urine Barbiturates (Neg) Ur Phencyclidine (PCP) (Neg) U Amphetamin/Meth Scrn (Neg) MDMA (Ecstasy) Screen (Neg) U Benzodiazepines Scrn (Neg) Ur Cocaine Metabolite (Neg) U Marijuana (THC) Screen (Neg) Ethyl Alcohol mg/dL (0-3) mg/dl COVID-19 PCR NEGATIVE (Negative) SARS-CoV-2 RNA (RT-PCR) Blood Type Antibody Screen 07/04/19/20 04/19/20 Range/Units 17:45 17:45 17:13 WBC (4.8-10.8) K/uL RBC (4.7-6.1) M/uL Hgb (14.0-18.0) g/dL POC Hgb 15.6 (14.0-18.0) g/dl Hct (42-52) % POC Hct 46 (42-52) % MCV (80-100) fL MCH (25-34) pg MCHC (32-36) g/dL RDW Std Deviation (36.4-46.3) fL RDW Coeff of Hernandez (11.5-14.5) % Plt Count (130-400) K/uL MPV (7.4-10.4) fL Immature Gran % (Auto) % Neut % (Auto) % Lymph % (Auto) % [place] % (Auto) % Eos % (Auto) % Baso % (Auto) % Neut # (Auto) (1.4-6.5) K/uL Lymph # (Auto) (1.2-3.4) K/uL [place] # (Auto) (0.11-0.59) K/uL Eos # (Auto) (0-0.5) K/uL Baso # (Auto) (0-0.2) K/uL Immature Gran # (Auto) (0.00-0.02) K/uL Platelet Estimate (Normal) PT (9.0-12.0) Seconds INR (0.9-1.1) POC Sodium 137 (135-144) mmol/L Sodium (136-145) mmol/L POC Potassium 4.0 (3.3-5.0) mmol/L Potassium (3.5-5.1) mmol/L POC Chloride 100 L (101-112) mmol/L Chloride (98-107) mmol/L Carbon Dioxide (21-32) mmol/L POC Total CO2 24 (24-31) mmol/L Anion Gap (3-11) POC Anion Gap 19.0 (16-25) mmol/L POC BUN 3 L (7-18) mg/dl BUN (7-18) mg/dl Creatinine (0.6-1.4) mg/dl POC Creatinine 1.3 (0.6-1.3) mg/dl Est Cr Clr Drug Dosing Est GFR ( Amer) Est GFR (Non-Af Amer) BUN/Creatinine Ratio (10-20) Glucose (70-99) mg/dl POC Glucose (70-99) mg/dl POC Glucose (other) 98 (70-99) mg/dl Calcium (8.5-10.1) mg/dl POC Ioniz Calcium Negin 0.98 L (1.12-1.32) mmol/l Ionized Calcium (1.12-1.32) mmol/L Phosphorus (2.5-4.9) mg/dl Magnesium (1.8-2.4) mg/dl Total Bilirubin (0.2-1) mg/dl Direct Bilirubin (0-0.2) mg/dl AST (15-37) U/L ALT (12-78) U/L Alkaline Phosphatase (45-117) U/L Troponin I (0-0.045) ng/ml Total Protein (6.4-8.2) gm/dl Albumin (3.4-5.0) gm/dl Globulin (2.5-4.0) gm/dl Albumin/Globulin Ratio (0.9-2) Lipase (73-393) U/L Procalcitonin (0-0.5) ng/ml TSH (0.300-4.500) uIu/ml Free T4 (0.8-1.6) ng/dl Specimen Hemolysis Urine Color Yellow Urine Appearance Clear (Clear) Urine pH 6.5 (4.5-7.5) Ur Specific [place] 1.010 (1.000-1.030) Urine Protein Negative (Negative) Urine Glucose (UA) Negative (Negative) Urine Ketones Negative (Negative) Urine Blood Negative (Negative) Urine Nitrite Negative (Negative) Urine Bilirubin Negative (Negative) Urine Urobilinogen Negative (Negative) Ur Leukocyte Esterase Negative (Negative) Urine Opiates Screen Neg (Neg) Ur Methadone, Qual Neg (Neg) Urine Barbiturates Neg (Neg) Ur Phencyclidine (PCP) Neg (Neg) U Amphetamin/Meth Scrn Neg (Neg) MDMA (Ecstasy) Screen Neg (Neg) U Benzodiazepines Scrn Neg (Neg) Ur Cocaine Metabolite Neg (Neg) U Marijuana (THC) Screen Neg (Neg) Ethyl Alcohol mg/dL (0-3) mg/dl COVID-19 PCR (Negative) SARS-CoV-2 RNA (RT-PCR) Blood Type Antibody Screen 04/19/20 04/19/20 04/19/20 Range/Units 16:57 16:57 16:57 WBC 7.95 (4.8-10.8) K/uL RBC 3.74 L (4.7-6.1) M/uL Hgb 14.4 (14.0-18.0) g/dL POC Hgb (14.0-18.0) g/dl Hct 39.7 L (42-52) % POC Hct (42-52) % MCV 106.1 H (80-100) fL MCH 38.5 H (25-34) pg MCHC 36.3 H (32-36) g/dL RDW Std Deviation 52.8 H (36.4-46.3) fL RDW Coeff of Hernandez 13.6 (11.5-14.5) % Plt Count 73 L (130-400) K/uL MPV 12.5 H (7.4-10.4) fL Immature Gran % (Auto) 0.3 % Neut % (Auto) 52.1 % Lymph % (Auto) 33.2 % [place] % (Auto) 11.8 % Eos % (Auto) 1.8 % Baso % (Auto) 0.8 % Neut # (Auto) 4.15 (1.4-6.5) K/uL Lymph # (Auto) 2.64 (1.2-3.4) K/uL [place] # (Auto) 0.94 H (0.11-0.59) K/uL Eos # (Auto) 0.14 (0-0.5) K/uL Baso # (Auto) 0.06 (0-0.2) K/uL Immature Gran # (Auto) 0.02 (0.00-0.02) K/uL Platelet Estimate Decreased L (Normal) PT (9.0-12.0) Seconds INR (0.9-1.1) POC Sodium (135-144) mmol/L Sodium 138 (136-145) mmol/L POC Potassium (3.3-5.0) mmol/L Potassium 3.7 (3.5-5.1) mmol/L POC Chloride (101-112) mmol/L Chloride 106 (98-107) mmol/L Carbon Dioxide 23 (21-32) mmol/L POC Total CO2 (24-31) mmol/L Anion Gap 9.0 (3-11) POC Anion Gap (16-25) mmol/L POC BUN (7-18) mg/dl BUN 4 L (7-18) mg/dl Creatinine 0.79 (0.6-1.4) mg/dl POC Creatinine (0.6-1.3) mg/dl Est Cr Clr Drug Dosing Not Reportable Est GFR ( Amer) 117.2 Est GFR (Non-Af Amer) 101.1 BUN/Creatinine Ratio 5.4 L (10-20) Glucose 95 (70-99) mg/dl POC Glucose (70-99) mg/dl POC Glucose (other) (70-99) mg/dl Calcium 7.3 L (8.5-10.1) mg/dl POC Ioniz Calcium Negin (1.12-1.32) mmol/l Ionized Calcium (1.12-1.32) mmol/L Phosphorus (2.5-4.9) mg/dl Magnesium (1.8-2.4) mg/dl Total Bilirubin 4.2 H (0.2-1) mg/dl Direct Bilirubin (0-0.2) mg/dl AST 134 H (15-37) U/L ALT 45 (12-78) U/L Alkaline Phosphatase 139 H (45-117) U/L Troponin I < 0.015 (0-0.045) ng/ml Total Protein 7.8 (6.4-8.2) gm/dl Albumin 1.9 L (3.4-5.0) gm/dl Globulin 5.9 H (2.5-4.0) gm/dl Albumin/Globulin Ratio 0.3 L (0.9-2) Lipase 203 (73-393) U/L Procalcitonin (0-0.5) ng/ml TSH (0.300-4.500) uIu/ml Free T4 (0.8-1.6) ng/dl Specimen Hemolysis Urine Color Urine Appearance (Clear) Urine pH (4.5-7.5) Ur Specific [place] (1.000-1.030) Urine Protein (Negative) Urine Glucose (UA) (Negative) Urine Ketones (Negative) Urine Blood (Negative) Urine Nitrite (Negative) Urine Bilirubin (Negative) Urine Urobilinogen (Negative) Ur Leukocyte Esterase (Negative) Urine Opiates Screen (Neg) Ur Methadone, Qual (Neg) Urine Barbiturates (Neg) Ur Phencyclidine (PCP) (Neg) U Amphetamin/Meth Scrn (Neg) MDMA (Ecstasy) Screen (Neg) U Benzodiazepines Scrn (Neg) Ur Cocaine Metabolite (Neg) U Marijuana (THC) Screen (Neg) Ethyl Alcohol mg/dL 376.0 H (0-3) mg/dl COVID-19 PCR (Negative) SARS-CoV-2 RNA (RT-PCR) Blood Type Antibody Screen
[2020-04-20 10:07] LABS: Albumin Level 1.6 gm/dl (3.4-5.0); BUN Creatinine Ratio 4.2 (10-20); Calcium 7.2 mg/dl (8.5-10.1); Creatinine Clr Calc Pharmacy 105.2 ml/min; Est GFR (African American) 123.9; Est GFR (Non-African American) 106.9; Magnesium 1.6 mg/dl (1.8-2.4); Potassium 3.7 mmol/L (3.5-5.1)
[2020-04-20 10:09] LABS: Albumin Globulin Ratio 0.3 (0.9-2); Globulin 4.9 gm/dl (2.5-4.0); Phosphorus 3.3 mg/dl (2.5-4.9); Total Protein 6.5 gm/dl (6.4-8.2)
[2020-04-20 10:50] LABS: Basophils # (auto) 0.06 K/uL (0-0.2); Basophils % (auto) 1.2 %; Eosinophils # (auto) 0.17 K/uL (0-0.5); Eosinophils % (auto) 3.4 %; Hematocrit (blood only) 36.3 % (42-52); Hemoglobin 12.7 g/dL (14.0-18.0); Immature Granulocytes # (auto) 0.01 K/uL (0.00-0.02); Immature Granulocytes % (auto) 0.2 %; Lymphocytes # (auto) 1.29 K/uL (1.2-3.4); Mean Corpuscular Hemoglobin 37.7 pg (25-34); Mean Corpuscular Volume 107.7 fL (80-100); Monocytes # (auto) 0.56 K/uL (0.11-0.59); Monocytes % (auto) 11.3 %; Neutrophils # (auto) 2.87 K/uL (1.4-6.5); Neutrophils % (auto) 57.9 %; Platelet Count 57 K/uL (130-400); RDW Standard Deviation 54.3 fL (36.4-46.3); Red Blood Count 3.37 M/uL (4.7-6.1); White Blood Count 4.96 K/uL (4.8-10.8)
--- NOTE | 2020-04-20 11:10 | Hospitalist Progress Note ---
Date of Service April 20, 2020 Assessment & Plan (1) BRBPR (bright red blood per rectum): -This is a 54-year-old male who has significant PMH of alcoholic liver cirrhosis with ascites, esophageal varices portal hypertension, COPD, alcohol abuse, tobacco abuse, chronic pancreatitis, thrombocytopenia due to hypersplenism who presents to ED on 04/20/2020 secondary to abdominal pain, diarrhea and BRBPR x4 days -on admission given thiamine, folic acid, banana bag, IV magnesium, IV phosphorous, IV potassium, IV fluids to prevent muscle cramps in context of alcohol use -admission urine negative -follow blood cultures. -also started on admission IV pantoprazole and IV octreotide, ceftriaxone as prophylaxis against spontaneous bacterial peritonitis but this is less likely as ultrasound on 04/20/2020 only Small amount of perihepatic ascites. Otherwise no significant ascitic fluid collection, continue ceftriaxone post EGD procedure -EGD planned by gastroenterology on 04/20/2020 (2) Alcoholic cirrhosis of liver with ascites: admission CT abdomen 1. The liver is cirrhotic in morphology and heterogeneous in attenuation. 2. Abdominal ascites, esophageal varices, a splenorenal shunt, and additional collaterals throughout the abdomen and retroperitoneum indicate portal hypertension. 3. Wall thickening of the right colon is nonspecific and likely related to portal colopathy. Clinical correlation will be required. 4. Fold thickening is seen involving loops of small bowel, and likely related to hypoproteinemia/chronic liver disease. Correlate clinically for evidence of a nonspecific enterocolitis. 5. Bladder distention. 6. A 4 mm pulmonary nodule the right lung base is unchanged management as above, follow EGD planned for 04/20/2020 (3) Esophageal varices: management as above, follow EGD planned for 04/20/2020 (4) Portal hypertension: management as above, follow EGD planned for 04/20/2020 (5) Transaminitis: -follow liver enzymes (6) Thrombocytopenia: -follow the labs (7) Alcohol abuse: -on telemetry and on alcohol withdrawl protocol of Librium (8) Hypothyroidism: -TSH elevated as in the past, but normal free T4 -assess medication history and adherence after GI workup is done on this admission DVT prophylaxis is SCDs Admission and Anticipated Discharge Date Admission Date: April 19, 2020 Subjective Patient went to bathroom but this was not sent off for FOBT. Patient appears less anxious today. he is appears to be comfortable. on nasal cannula 1 liter/min. not reporting acute symptoms currently this AM Review of Systems Review of Systems: All systems reviewed & are unremarkable except as noted in Subjective Physical Exam Constitutional: comfortable Eyes: PERRL, conjunctivae normal, anicteric sclerae EOM intact bilaterally ENMT: external ear and nose normal, oropharynx normal Neck: trachea midline, no thyromegaly normal visual inspection Respiratory: normal respiratory effort Cardiovascular: Rate/Rhythm: regular rate Gastrointestinal (Abdomen): Inspection/Auscultation: + abdomen distended Musculoskeletal: Head/Neck/Chest: normocephalic Neurologic: PERRL, EOMI, accommodation nl, no face palsy, no dysarthria Psychiatric: Orientation: alert and cooperative Results & Data Results & Data ([facility]) Vital Signs (Past 12 Hours) Vital Signs Temp Pulse Pulse Pulse Resp BP BP 04/20/20 07:39 36.7 C 73 18 110/73 04/20/20 07:00 68 04/20/20 04:44 36.7 C 78 18 102/61 04/20/20 00:38 80 04/20/20 00:00 36.6 C 78 16 126/84 04/19/20 23:57 36.6 C 78 16 126/84 Pulse Ox Pulse Ox 04/20/20 07:39 94 04/20/20 07:00 04/20/20 04:44 93 04/20/20 00:38 04/20/20 00:00 97 04/19/20 23:57 97 97 (1) Esophageal varices Esophageal varices type: unspecified type
[2020-04-20] MEDS ORDERED: DEXTROSE 50% 50 ML SYRINGE IV ONE (11:50)
[2020-04-20] MEDS ORDERED: D5W AND 1/2NSS 1,000 ML IV SCH (12:00)
--- NOTE | 2020-04-20 14:04 | Electrocardiogram Report ---
Test Reason : Blood Pressure : / mmHG Vent. Rate : 081 BPM Atrial Rate : 081 BPM P-R Int : 136 ms QRS Dur : 094 ms QT Int : 390 ms P-R-T Axes : 072 064 055 degrees QTc Int : 453 ms Normal sinus rhythm Normal ECG When compared with ECG of 15-FEB-2020 20:22, No significant change was found Confirmed by Clement Ceballos ([id number]) on 04/20/2020 2:03:43 PM Referred By: REFERRED SELF Confirmed By:Brady Ceballos
--- NOTE | 2020-04-20 14:24 | Anesthesiology Consultation ---
Date of Service April 20, 2020 Assessment & Plan (1) Encounter for pre-operative examination: Chart Review Chart Review: Acceptable Risk for Surgery and Patient NOT seen in Pre Admission Testing Consults Requested none ASA ASA4 Proposed Anesthesia Anesthesia Type: MAC Risk / Benefits Reviewed With: PT / POA / Parent / Guardian, Accepts Plan and Informed Consent Obtained History Surgery Operation Date: 04/20/20 16:15 Proposed Procedures p Esophagogastroduodenoscopy Dr Ezequiel Nieves Height/Weight Height: 5 ft 5 in Weight: 68.5 kg Allergies Allergy/AdvReac Type Severity Reaction Status Date / Time fentanyl Allergy Intermediate RASH ALL Verified 04/20/20 14:17 OVER BODY Medications Home Medications Medication Instructions Recorded Confirmed Last Taken albuterol sulfate [ProAir HFA] 2 puff INHALATION Q6 PRN 01/12/20 04/19/20 Unknown Active Medications Generic Name Dose Route Start Last Admin Trade Name Freq PRN Reason Stop Dose Admin Chlordiazepoxide HCl 25 mg 04/20/20 00:00 04/20/20 11:29 Librium PO 04/21/20 23:59 25 mg Q6H ARMANDO Administration Taper Folic Acid 1 mg 04/19/20 23:40 04/20/20 08:58 Folvite PO 05/19/20 23:39 1 mg QAM ARMANDO Administration Pantoprazole Sodium 40 mg/ 100 mls @ 20 mls/hr 04/19/20 18:31 04/20/20 10:08 Dextrose IV 05/19/20 18:30 8 mg/hr Q5H ARMANDO 20 mls/hr Administration 8 MG/HR Ceftriaxone Sodium 2,000 mg/ 70 mls @ 100 mls/hr 04/20/20 04:00 04/20/20 05:09 Dextrose IV 04/30/20 03:59 Infused Q24H ARMANDO Infusion Protocol Octreotide Acetate 500 mcg/ 105 mls @ 10.5 mls/hr 04/20/20 00:00 04/20/20 11:07 Sodium Chloride IV 05/20/20 00:00 50 mcg/hr .Q10H ARMANDO 10.5 mls/hr Administration 50 MCG/HR Dextrose/Sodium Chloride 1,000 mls @ 60 mls/hr 04/20/20 12:00 04/20/20 12:16 D5w And 1/2nss IV 05/20/20 11:59 60 mls/hr .[id number] ARMANDO Administration Thiamine HCl 100 mg 04/19/20 23:40 04/20/20 08:58 Vitamin B-1 PO 05/19/20 23:39 100 mg QAM ARMANDO Administration NPO Date Last Intake of Fluids: 04/19/20 Time Last Intake of Fluids: 15:00 Date Last Intake of Solids: 04/18/20 Time Last Intake of Solids: 18:00 Last Intake of Solids Comment: dinner Past Medical History Medical History Alcohol abuse (Acute) Alcohol dependence (Chronic) Alcoholic cirrhosis of liver without ascites (Chronic) Atrial fibrillation Chronic anxiety (Chronic) Chronic obstructive pulmonary disease Chronic pancreatitis (Chronic) COPD, mild (Chronic) Esophageal varices (Chronic) Hypertension Hypothyroidism (Chronic) Myocardial Infarction On home oxygen therapy Paroxysmal atrial fibrillation (Chronic) Pulmonary embolism Seizure Exercise / Class Metabolic Activity III < 4 Walking/Shop/Light housework Past Family History Family History Mother Diabetes Father Coronary heart disease Past Surgical History Surgical History H/O colonoscopy (Chronic) History of cholecystectomy (Chronic) "2009" History of esophagogastroduodenoscopy (EGD) (Chronic) "12/15/2014- Small varices. Erosive duodenitis." 01/09/17 - esophageal varicies, gastritis Past Anesthesia History No Hx of Anesthesia Complications and No Family Hx of Anesthesia Complications History of PONV No Hx of PONV and No Hx of Motion Sickness Social History Smoking Status: Current every day smoker tobacco type: cigarettes Smoking cigarettes per day: 20 Do You Dip or Chew Tobacco: No Hx Alcohol Use: Yes Alcohol type: beer alcohol intake frequency: 3 or more drinks per day Hx Substance Use: No substance use type: does not use Physical Exam Vital Signs Last Vital Signs Temp 36.8 C 04/20/20 14:08 Pulse 72 04/20/20 14:08 Resp 18 04/20/20 13:55 BP 125/78 04/20/20 14:08 Pulse Ox 98 04/20/20 14:08 ENMT Mouth: no dentition abnormality Thyromental Distance: > or= 3.5 Finger Breadths Mallampati Class: II Neck normal visual inspection Respiratory Auscultation: + diminished lung sounds (with increased expiratory phase) Cardiovascular Rate/Rhythm: regular rate and regular rhythm Extremities: + edema Psychiatric Orientation: alert Testing Laboratory Results 04/20/20 09:07 04/20/20 09:07 PT 16.0 Seconds (9.0-12.0) H 04/19/20 19:25 INR 1.6 (0.9-1.1) H 04/19/20 19:25 Urine Color Yellow 04/19/20 17:45 Urine Appearance Clear (Clear) 04/19/20 17:45 Urine pH 6.5 (4.5-7.5) 04/19/20 17:45 Ur Specific [place] 1.010 (1.000-1.030) 04/19/20 17:45 Urine Protein Negative (Negative) 04/19/20 17:45 Urine Glucose (UA) Negative (Negative) 04/19/20 17:45 Urine Ketones Negative (Negative) 04/19/20 17:45 Urine Nitrite Negative (Negative) 04/19/20 17:45 Ur Leukocyte Esterase Negative (Negative) 04/19/20 17:45 Blood Type O Positive 04/19/20 19:28 Antibody Screen NEGATIVE 04/19/20 19:28 04/20/20 04/20/20 04/20/20 13:51 11:46 05:51 POC Glucose 137 H 73 74
--- NOTE | 2020-04-20 14:36 | History & Physical Bridge Note ---
Date of Service April 20, 2020 History & Physical Bridge Note I have examined the patient, reviewed the History & Physical and in the interval since the performance of the History & Physical I have noted the following changes of clinical significance: no changes noted
--- NOTE | 2020-04-20 14:52 | GI REPORT ---
Patient Name: Markos Martin Procedure Date: 04/20/2020 2:40 PM Date of : 1965 Admit Type: Inpatient Age: 54 Gender: Male Attending MD: Hilda Nieves DO Procedure: Upper GI endoscopy Providers: Hilda Nieves DO Referring MD: Alexis Murray M.d., Brett Oesterling Indications: Hematochezia Medicines: Monitored Anesthesia Care Complications: No immediate complications. Estimated blood loss: Minimal. Estimated Blood Loss: Estimated blood loss was minimal. Procedure: Pre-Anesthesia Assessment: - Prior to the procedure, a History and Physical was performed, and patient medications, allergies and sensitivities were reviewed. The patient's tolerance of previous anesthesia was reviewed. - The risks and benefits of the procedure and the sedation options and risks were discussed with the patient. All questions were answered and informed consent was obtained. - Patient identification and proposed procedure were verified prior to the procedure by the physician, the nurse and the health unit coordinator. The procedure was verified in the procedure room. - Pre-procedure physical examination revealed no contraindications to sedation. - ASA Grade Assessment: IV - A patient with severe systemic disease that is a constant threat to life. - After reviewing the risks and benefits, the patient was deemed in satisfactory condition to undergo the procedure. - The anesthesia plan was to use monitored anesthesia care (MAC). - Immediately prior to administration of medications, the patient was re-assessed for adequacy to receive sedatives. - The heart rate, respiratory rate, oxygen saturations, blood pressure, adequacy of pulmonary ventilation, and response to care were monitored throughout the procedure. - The physical status of the patient was re-assessed after the procedure. After obtaining informed consent, the endoscope was passed under direct vision. Throughout the procedure, the patient's blood pressure, pulse, and oxygen saturations were monitored continuously. The Endoscope was introduced through the mouth, and advanced to the third part of duodenum. The upper GI endoscopy was accomplished without difficulty. The patient tolerated the procedure well. Findings: There is no endoscopic evidence of varices in the lower third of the esophagus. The Z-line was regular and was found 38 cm from the incisors. Moderate portal hypertensive gastropathy was found in the entire examined stomach. The examined duodenum was normal. Impression: - Z-line regular, 38 cm from the incisors. - Portal hypertensive gastropathy. - Normal examined duodenum. - No specimens collected. Recommendation: - Return patient to hospital [facility] for ongoing care. - Perform a colonoscopy at appointment to be scheduled. - May stop the PPI drip and Octreotide. Hilda Nieves D.O. Hilda Nieves, 04/20/2020 2:52:26 PM This report has been signed electronically. Note Initiated On: 04/20/2020 2:40 PM Number of Addenda: 0 I attest to the content of the Intraoperative Record and orders documented therein, exceptions below {[id number]}
--- NOTE | 2020-04-20 14:53 | Communication Note ---
Date of Service: April 20, 2020 Patient underwent upper endoscopy today. Findings Normal-appearing esophagus, no varices were noted Portal hypertensive gastropathy Normal-appearing duodenum Recommendations Further evaluation of hematochezia with colonoscopy be scheduled February IV Protonix and octreotide from our perspective Continue to monitor for signs of alcohol withdrawal
[2020-04-20] MEDS ORDERED: PROPOFOL IV EMULSION 10 MG/ML 20 ML VIAL IV ONE (14:59)
[2020-04-20] MEDS ORDERED: LIDOCAINE HCL 2% 2 ML VIAL/AMP(20MG/ML) INFIL ONE (14:59)
--- NOTE | 2020-04-20 15:08 | Anesthesiology Progress Note ---
Date of Service April 20, 2020 Anesthesia Post Procedure Vital Signs Vital Signs: Temp Pulse Pulse Pulse Resp BP BP 04/20/20 14:53 86 16 04/20/20 14:08 36.8 C 72 125/78 04/20/20 13:55 36.5 C 86 18 118/71 04/20/20 11:52 36.9 C 67 20 106/66 04/20/20 07:39 36.7 C 73 18 110/73 04/20/20 07:00 68 04/20/20 04:44 36.7 C 78 18 102/61 04/20/20 00:38 80 04/20/20 00:00 36.6 C 78 16 04/19/20 23:57 36.6 C 78 16 04/19/20 23:00 76 16 96/69 L 04/19/20 22:30 79 17 105/73 04/19/20 22:00 78 17 104/71 04/19/20 21:30 75 16 102/71 04/19/20 21:22 37.3 C 04/19/20 21:00 72 16 115/78 04/19/20 20:30 77 36 H 121/79 04/19/20 20:15 04/19/20 20:00 79 16 117/72 04/19/20 19:31 87 18 04/19/20 19:30 80 18 124/78 04/19/20 19:00 83 17 124/83 04/19/20 18:36 84 17 128/84 04/19/20 18:30 92 H 17 04/19/20 18:01 90 19 04/19/20 18:00 89 18 122/80 04/19/20 17:57 86 17 124/87 04/19/20 17:02 80 18 130/87 04/19/20 17:00 78 17 04/19/20 16:59 80 18 04/19/20 16:28 36.6 C 88 20 139/89 BP Pulse Ox Pulse Ox 04/20/20 14:53 120/74 93 04/20/20 14:08 98 04/20/20 13:55 92 04/20/20 11:52 95 04/20/20 07:39 94 04/20/20 07:00 04/20/20 04:44 93 04/20/20 00:38 04/20/20 00:00 126/84 97 04/19/20 23:57 126/84 97 97 04/19/20 23:00 96 04/19/20 22:30 94 04/19/20 22:00 95 04/19/20 21:30 96 04/19/20 21:22 04/19/20 21:00 100 04/19/20 20:30 99 04/19/20 20:15 86 L 04/19/20 20:00 94 04/19/20 19:31 124/78 96 04/19/20 19:30 97 04/19/20 19:00 97 04/19/20 18:36 99 04/19/20 18:30 99 04/19/20 18:01 95 04/19/20 18:00 95 04/19/20 17:57 96 04/19/20 17:02 95 04/19/20 17:00 95 04/19/20 16:59 97 04/19/20 16:28 96 Transfer of Care Handoff Completed per policy Notes Mental Status: alert / awake / arousable Patient Amnestic to Procedure: Yes Nausea / Vomiting: adequately controlled Pain: adequately controlled Airway Patency, RR, SpO2: stable & adequate BP & HR: stable & adequate Hydration State: stable & adequate Anesthetic Complications: no major complications apparent
[2020-04-20] MEDS ORDERED: LAVAGE SOLUTION 4000ML PO SCH (16:00)
[2020-04-20] MEDS ORDERED: MULTI-VITAMIN INFUSION 10 ML, THIAMINE HCL 100 MG, FOLIC ACID 1 MG in SODIUM CHLORIDE 0... IV ONE (17:20)
[2020-04-21] MEDS: LAVAGE SOLUTION 4000ML PO SCH (01:19)
[2020-04-21] MEDS: cefTRIAXone SODIUM 2,000 MG in DEXTROSE 5% 50 ML IV SCH (03:55)
[2020-04-21] MEDS: THIAMINE HCL 100 MG TAB PO SCH (08:15)
[2020-04-21] MEDS: chlordiazePOXIDE HCl 25 MG CAP PO SCH (08:15)
[2020-04-21] MEDS: FOLIC ACID 1 MG TAB PO SCH (08:15)
[2020-04-21] MEDS ORDERED: PANTOprazole 40 MG TAB PO SCH (09:00)
--- NOTE | 2020-04-21 09:07 | Anesthesiology Consultation ---
Date of Service April 21, 2020 wears 2l o2 at night Assessment & Plan (1) Encounter for pre-operative examination: History Surgery Operation Date: 04/20/20 16:15 Proposed Procedures p Esophagogastroduodenoscopy Dr Ezequiel Nieves Operation Date: 04/21/20 14:35 Proposed Procedures p Colonoscopy Dr Ezequiel Nieves Height/Weight Height: 5 ft 5 in Weight: 69.2 kg Allergies Allergy/AdvReac Type Severity Reaction Status Date / Time fentanyl Allergy Intermediate RASH ALL Verified 04/20/20 14:17 OVER BODY Medications Home Medications Medication Instructions Recorded Confirmed Last Taken albuterol sulfate [ProAir HFA] 2 puff INHALATION Q6 PRN 01/12/20 04/19/20 Unknown Active Medications Generic Name Dose Route Start Last Admin Trade Name Freq PRN Reason Stop Dose Admin Chlordiazepoxide HCl 25 mg 04/20/20 00:00 04/21/20 08:15 Librium PO 04/21/20 23:59 25 mg Q8H ARMANDO Administration Taper Folic Acid 1 mg 04/19/20 23:40 04/21/20 08:15 Folvite PO 05/19/20 23:39 1 mg QAM ARMANDO Administration Ceftriaxone Sodium 2,000 mg/ 70 mls @ 100 mls/hr 04/20/20 04:00 04/21/20 04:45 Dextrose IV 04/30/20 03:59 Infused Q24H ARMANDO Infusion Protocol Pantoprazole Sodium 40 mg 04/21/20 09:00 04/21/20 08:15 Protonix PO 05/21/20 08:59 40 mg QAM ARMANDO Administration Thiamine HCl 100 mg 04/19/20 23:40 04/21/20 08:15 Vitamin B-1 PO 05/19/20 23:39 100 mg QAM ARMANDO Administration NPO Date Last Intake of Fluids: 04/19/20 Time Last Intake of Fluids: 15:00 Date Last Intake of Solids: 04/18/20 Time Last Intake of Solids: 18:00 Last Intake of Solids Comment: dinner Past Medical History Medical History Alcohol abuse (Acute) Alcohol dependence (Chronic) Alcoholic cirrhosis of liver without ascites (Chronic) Atrial fibrillation Chronic anxiety (Chronic) Chronic obstructive pulmonary disease Chronic pancreatitis (Chronic) COPD, mild (Chronic) Esophageal varices (Chronic) Hypertension Hypothyroidism (Chronic) Myocardial Infarction On home oxygen therapy Paroxysmal atrial fibrillation (Chronic) Pulmonary embolism Seizure Past Family History Family History Mother Diabetes Father Coronary heart disease Past Surgical History Surgical History H/O colonoscopy (Chronic) History of cholecystectomy (Chronic) "2009" History of esophagogastroduodenoscopy (EGD) (Chronic) "12/15/2014- Small varices. Erosive duodenitis." 01/09/17 - esophageal varicies, gastritis Social History Smoking Status: Current every day smoker tobacco type: cigarettes Smoking cigarettes per day: 20 Do You Dip or Chew Tobacco: No Hx Alcohol Use: Yes Alcohol type: beer alcohol intake frequency: 3 or more drinks per day Hx Substance Use: No substance use type: does not use Physical Exam Vital Signs Last Vital Signs Temp 37.2 C 04/21/20 09:57 Pulse 72 04/21/20 09:57 Resp 18 04/21/20 09:57 BP 120/71 04/21/20 09:57 Pulse Ox 93 04/21/20 09:57 Testing Laboratory Results 04/21/20 09:20 PT 16.0 Seconds (9.0-12.0) H 04/19/20 19:25 INR 1.6 (0.9-1.1) H 04/19/20 19:25 Urine Color Yellow 04/19/20 17:45 Urine Appearance Clear (Clear) 04/19/20 17:45 Urine pH 6.5 (4.5-7.5) 04/19/20 17:45 Ur Specific [place] 1.010 (1.000-1.030) 04/19/20 17:45 Urine Protein Negative (Negative) 04/19/20 17:45 Urine Glucose (UA) Negative (Negative) 04/19/20 17:45 Urine Ketones Negative (Negative) 04/19/20 17:45 Urine Nitrite Negative (Negative) 04/19/20 17:45 Ur Leukocyte Esterase Negative (Negative) 04/19/20 17:45 Blood Type O Positive 04/19/20 19:28 Antibody Screen NEGATIVE 04/19/20 19:28 04/19/20 19:25 Aerobic Blood Culture - Preliminary Blood No growth in Aerobic bottle after 24 hours. Anaerobic Blood Culture - Preliminary No growth in Anaerobic bottle after 24 hours. 04/19/20 19:05 Aerobic Blood Culture - Preliminary Blood No growth in Aerobic bottle after 24 hours. Anaerobic Blood Culture - Preliminary No growth in Anaerobic bottle after 24 hours. Electrocardiogram Date: 04/19/20 Normal sinus rhythm Normal ECG When compared with ECG of 15-FEB-2020 20:22, No significant change was found Confirmed by Clement Ceballos ([id number]) on 04/20/2020 2:03:43 PM Chest X-Ray Date: 04/19/20 MPRESSION: Emphysematous change with no active disease in the chest.
--- NOTE | 2020-04-21 09:25 | Gastroenterology Progress Note ---
Date of Service April 21, 2020 Assessment & Plan (1) Acute lower gastrointestinal bleedin54 year old male with history of history of alcoholic liver cirrhosis with ascites, esophageal varices portal hypertension, COPD, alcohol abuse, tobacco abuse, chronic pancreatitis, thrombocytopenia admitted for abd pain, midline end rectal bleeding 3/4 episodes a day for 3/4 days. Vitals stable, HGB 12.7 without BUN elevation. EGD negative for acute blood loss, prepped for a colonoscopy today NPO Colonoscopy today Thank you for allowing us to participate in the care of this patient. Please call with any acute changes, questions or concerns. Please see addendum below with additional recommendation from my supervising physician. Admission and Anticipated Discharge Date Admission Date: April 19, 2020 Supervising Physician Co-Signing Physician Notes I saw and evaluated the patient. We are planning to do colonoscopy today due to a history of hematochezia. We discussed the risks and benefits of the procedure to include bleeding, infection, perforation, pain and need for follow-up studies. Subjective NPO for colon Tolerated prep Clear stools No black or bloody stools towards end of bowel prep Review of Systems Constitutional: no fever, no chills and no fatigue Respiratory: no cough and no dyspnea Cardiovascular: no chest pain and no dyspnea Gastrointestinal: no abdominal pain Results & Data ([facility]) Vital Signs (Past 12 Hours) Vital Signs Temp Pulse Pulse Resp BP Pulse Ox 04/21/20 07:48 36.9 C 77 18 120/71 90 04/21/20 03:52 36.8 C 81 20 124/75 92 04/20/20 23:51 79 04/20/20 23:43 36.7 C 77 20 145/79 H 95
[2020-04-21 09:40] LABS: Hemoglobin 11.7 g/dL (14.0-18.0); Mean Corpuscular Hemoglobin 37.1 pg (25-34); Mean Corpuscular Hgb Conc 34.4 g/dL (32-36); Mean Corpuscular Volume 107.9 fL (80-100); Nucleated RBC # (auto) 0.04 K/uL (0-0); Nucleated RBC % (auto) 0.8 %; RDW Standard Deviation 55.2 fL (36.4-46.3); Red Blood Count 3.15 M/uL (4.7-6.1); White Blood Count 5.31 K/uL (4.8-10.8)
[2020-04-21 09:45] LABS: Mean Platelet Volume 11.8 fL (7.4-10.4); Platelet Count 50 K/uL (130-400)
--- NOTE | 2020-04-21 10:21 | History & Physical Bridge Note ---
Date of Service April 21, 2020 History & Physical Bridge Note I have examined the patient, reviewed the History & Physical and in the interval since the performance of the History & Physical I have noted the following changes of clinical significance: no changes noted
[2020-04-21 10:39] LABS: BUN Creatinine Ratio 6.9 (10-20); Calcium 6.7 mg/dl (8.5-10.1); Creatinine Clr Calc Pharmacy 105.2 ml/min; Est GFR (African American) 123.9; Est GFR (Non-African American) 106.9; Potassium 3.5 mmol/L (3.5-5.1)
--- NOTE | 2020-04-21 10:49 | GI REPORT ---
Patient Name: Markos Martin Procedure Date: 04/21/2020 10:26 AM Date of : 1965 Admit Type: Inpatient Age: 54 Gender: Male Attending MD: Hilda Nieves DO Procedure: Colonoscopy Providers: Hlida Nieves DO Referring MD: Jmi Damian Indications: Hematochezia Medicines: Monitored Anesthesia Care Complications: No immediate complications. Estimated blood loss: Minimal. Estimated Blood Loss: Estimated blood loss was minimal. Procedure: Pre-Anesthesia Assessment: - Prior to the procedure, a History and Physical was performed, and patient medications, allergies and sensitivities were reviewed. The patient's tolerance of previous anesthesia was reviewed. - The risks and benefits of the procedure and the sedation options and risks were discussed with the patient. All questions were answered and informed consent was obtained. - Patient identification and proposed procedure were verified prior to the procedure by the physician, the nurse and the herb grower. The procedure was verified in the procedure room. - Pre-procedure physical examination revealed no contraindications to sedation. - ASA Grade Assessment: IV - A patient with severe systemic disease that is a constant threat to life. - After reviewing the risks and benefits, the patient was deemed in satisfactory condition to undergo the procedure. - The anesthesia plan was to use monitored anesthesia care (MAC). - Immediately prior to administration of medications, the patient was re-assessed for adequacy to receive sedatives. - The heart rate, respiratory rate, oxygen saturations, blood pressure, adequacy of pulmonary ventilation, and response to care were monitored throughout the procedure. - The physical status of the patient was re-assessed after the procedure. After I obtained informed consent, the scope was passed under direct vision. Throughout the procedure, the patient's blood pressure, pulse, and oxygen saturations were monitored continuously. The scope was introduced through the anus and advanced to the terminal ileum. The colonoscopy was performed without difficulty. The patient tolerated the procedure well. The quality of the bowel preparation was adequate to identify polyps 6 mm and larger in size. Findings: The digital rectal exam findings include non-thrombosed external hemorrhoids. Pertinent negatives include normal sphincter tone. The terminal ileum appeared normal. A tattoo was seen at the hepatic flexure. The tattoo site appeared normal. Many small and large-mouthed diverticula were found in the sigmoid colon and descending colon. Internal hemorrhoids were found during retroflexion. The hemorrhoids were moderate. Impression: - Non-thrombosed external hemorrhoids found on digital rectal exam. - The examined portion of the ileum was normal. - Moderate diverticulosis in the sigmoid colon and in the descending colon. - Internal hemorrhoids. Recommendation: - Return patient to hospital [facility] for ongoing care. - Repeat colonoscopy in 5 years for screening purposes. -Hematochezia most likely related to the patient's large internal and external hemorrhoids. Hilda Nieves D.O. Hilda Nieves, 04/21/2020 10:49:22 AM This report has been signed electronically. Note Initiated On: 04/21/2020 10:26 AM Number of Addenda: 0 I attest to the content of the Intraoperative Record and orders documented therein, exceptions below {[id number]}
--- NOTE | 2020-04-21 10:50 | Communication Note ---
Date of Service: April 21, 2020 Patient underwent colonoscopy today Findings Diverticulosis of the left colon Large internal and external hemorrhoids Impression: Patient with a history of scant hematochezia likely related to internal or external hemorrhoids. Recommendations Fiber supplementation MiraLAX 17 g 1 time daily Repeat colonoscopy in 5 years Patient should consider alcohol abstinence
[2020-04-21 10:54] LABS: Basophils # (auto) 0.03 K/uL (0-0.2); Basophils % (auto) 0.6 %; Eosinophils # (auto) 0.11 K/uL (0-0.5); Eosinophils % (auto) 2.1 %; Immature Granulocytes # (auto) 0.03 K/uL (0.00-0.02); Immature Granulocytes % (auto) 0.6 %; Lymphocytes # (auto) 1.46 K/uL (1.2-3.4); Lymphocytes % (auto) 27.5 %; Monocytes # (auto) 0.75 K/uL (0.11-0.59); Monocytes % (auto) 14.1 %; Neutrophils # (auto) 2.93 K/uL (1.4-6.5); Neutrophils % (auto) 55.1 %; RBC Morphology Unremarkable
--- NOTE | 2020-04-21 13:19 | Anesthesiology Progress Note ---
Date of Service April 21, 2020 Anesthesia Post Procedure Vital Signs Vital Signs: Temp Pulse Pulse Resp BP BP Pulse Ox 04/21/20 11:18 73 16 122/72 93 04/21/20 11:04 75 16 118/74 93 04/21/20 10:50 37.0 C 77 16 117/73 98 04/21/20 09:57 37.2 C 72 18 120/71 93 04/21/20 07:48 36.9 C 77 18 120/71 90 04/21/20 03:52 36.8 C 81 20 124/75 92 04/20/20 23:51 79 04/20/20 23:43 36.7 C 77 20 145/79 H 95 04/20/20 19:02 36.6 C 79 19 121/71 94 04/20/20 18:00 36.5 C 85 19 146/84 H 93 04/20/20 17:32 36.6 C 70 19 136/84 94 04/20/20 16:31 36.6 C 76 19 134/85 92 04/20/20 16:15 36.9 C 73 19 127/79 96 04/20/20 16:00 37 C 77 20 123/78 95 04/20/20 15:45 37.1 C 70 20 113/74 97 04/20/20 15:25 72 16 121/69 98 04/20/20 15:10 72 16 116/71 97 04/20/20 14:53 86 16 120/74 93 04/20/20 14:08 36.8 C 72 125/78 98 04/20/20 13:55 36.5 C 86 18 118/71 92 Transfer of Care Handoff Completed per policy Notes Mental Status: alert / awake / arousable and participated in evaluation Patient Amnestic to Procedure: Yes Nausea / Vomiting: adequately controlled Pain: adequately controlled Airway Patency, RR, SpO2: stable & adequate BP & HR: stable & adequate Hydration State: stable & adequate Anesthetic Complications: no major complications apparent and Pt Satisfied with anesthetic care
--- NOTE | 2020-04-21 13:56 | Hospitalist Progress Note ---
Date of Service Delayed entry date of service noted below April 21, 2020 Assessment & Plan (1) BRBPR (bright red blood per rectum): Likely secondary to internal and/or external hemorrhoids Per previous hospitalist notes Dr. Murray: -This is a 54-year-old male who has significant PMH of alcoholic liver cirrhosis with ascites, esophageal varices portal hypertension, COPD, alcohol abuse, tobacco abuse, chronic pancreatitis, thrombocytopenia due to hypersplenism who presents to ED on 04/20/2020 secondary to abdominal pain, diarrhea and BRBPR x4 days -on admission given thiamine, folic acid, banana bag, IV magnesium, IV phosphorous, IV potassium, IV fluids to prevent muscle cramps in context of alcohol use -EGD 04/20/2020 Impression: - Z-line regular, 38 cm from the incisors. - Portal hypertensive gastropathy. - Normal examined duodenum. - No specimens collected. Recommendation: - Return patient to hospital [facility] for ongoing care. - Perform a colonoscopy at appointment to be scheduled. - May stop the PPI drip and Octreotide. - Colonoscopy 04/21/20 Impression: - Non-thrombosed external hemorrhoids found on digital rectal exam. - The examined portion of the ileum was normal. - Moderate diverticulosis in the sigmoid colon and in the descending colon. - Internal hemorrhoids. Recommendation: - Return patient to hospital [facility] for ongoing care. - Repeat colonoscopy in 5 years for screening purposes. -Hematochezia most likely related to the patient's large internal and external hemorrhoids. GI recommendations: Fiber supplementation MiraLAX 17 g 1 time daily Repeat colonoscopy in 5 years Patient should consider alcohol abstinence (2) Alcoholic cirrhosis of liver with ascites: admission CT abdomen 1. The liver is cirrhotic in morphology and heterogeneous in attenuation. 2. Abdominal ascites, esophageal varices, a splenorenal shunt, and additional collaterals throughout the abdomen and retroperitoneum indicate portal hypertension. 3. Wall thickening of the right colon is nonspecific and likely related to portal colopathy. Clinical correlation will be required. 4. Fold thickening is seen involving loops of small bowel, and likely related to hypoproteinemia/chronic liver disease. Correlate clinically for evidence of a nonspecific enterocolitis. 5. Bladder distention. 6. A 4 mm pulmonary nodule the right lung base is unchanged Compensated Continue to follow closely with GI (3) Esophageal varices: Status post EGD, no signs of bleeding (4) Portal hypertension: Status post EGD, no signs of bleeding (5) Transaminitis: -Appears stable Monitor as outpatient (6) Thrombocytopenia: -Stable at 50 K No signs of bleeding Repeat CBC on follow-up with PCP this Thursday, April 23, 2020 (7) Alcohol abuse: -On Librium protocol No signs of overt alcohol withdrawal Given 2 days course of gabapentin taper Patient strongly encouraged to stop drinking alcohol (8) Hypothyroidism: -TSH elevated as in the past, but normal free T4 -assess medication history and adherence after GI workup is done on this admission DVT prophylaxis SCDs Physician Discharge to home Follow-up with PCP Thursday, April 23, 2020, emphasized importance of following up with primary care physician closely He verbalized understanding and agreement Admission and Anticipated Discharge Date Admission Date: April 19, 2020 Subjective Follow-up for possible upper GI bleed, alcohol withdrawal, alcoholism Seen resting in bed, comfortable, not in distress Awake, alert oriented x3 States he feels fine overall Denies tremors, palpitations, anxiety, hallucinations Denies abdominal pain, nausea vomiting, hematemesis, melena, hematochezia Denies chest pain, palpitations, dizziness No other symptoms States he is ready and like to be discharged Review of Systems Review of Systems: All systems reviewed & are unremarkable except as noted in HPI & below Physical Exam Physical Exam: General- oriented x 3, not in distress, speaks in sentences with no effort or accessory muscle use Eyes- anicteric Neck- no JVD Lungs- clear breath sounds bilaterally, no rales/wheezes Heart- normal rate, regular rhythm; no murmurs Abdomen- normal bowel sounds, nondistended, soft, nontender Extremities- no pretibial edema, no calf tenderness No tremors Neuro- alert, oriented x 3; no gross focal neurologic deficits Skin- warm & dry Results & Data Results & Data ([facility]) Vital Signs (Past 12 Hours) Vital Signs Temp Pulse Resp BP BP Pulse Ox 04/21/20 11:18 73 16 122/72 93 04/21/20 11:04 75 16 118/74 93 04/21/20 10:50 37.0 C 77 16 117/73 98 04/21/20 09:57 37.2 C 72 18 120/71 93 04/21/20 07:48 36.9 C 77 18 120/71 90 04/21/20 03:52 36.8 C 81 20 124/75 92 Laboratory Results All noted and reviewed (1) Esophageal varices Esophageal varices type: unspecified type
[2020-04-22] MEDS ORDERED: POLYETHYLENE (MIRALAX) 17 GM PACK PO SCH (09:00)
--- NOTE | 2020-04-22 21:01 | Discharge Summary ---
Date of Service April 22, 2020 Admission HPI Per Admitting Provider This is a 54-year-old male who has significant PMH of alcoholic liver cirrhosis with ascites, esophageal varices portal hypertension, COPD, alcohol abuse, tobacco abuse, chronic pancreatitis, thrombocytopenia due to hypersplenism who presents to ED secondary to abdominal pain, diarrhea and BRBPR x4 days. He states his last alcoholic drink was 3 hours prior to arrival. He drinks 4-32 ounce Sesay highlights daily. He noticed over the past 3 to 4 days he has been having abdominal pain in the epigastric and right lower quadrant region. Pain is constant, made worse with deep breathing, associated with diarrhea and BRBPR for the past 4 days. He noticed bright red blood in toilet bowl and on toilet tissue. Nothing alleviates the pain. Abdominal pain has been present for several years but was concerned due to bleeding from rectum. Had similar symptoms approximately 3 years ago but unsure what happened at that time. He is overall a poor historian. He denies any recent fever, chills, sweats, lightheadedness, dizziness, syncope, chest pain, shortness of breath, cough, nausea, vomiting, dysuria, increased urgency or frequency with urination. He denies any known food exposure, loss of taste or smell. He is prescribed medications but states he is not taking any oral medications. He does use 3 L of O2 at bedtime. Overall general poor appetite. In ED patient remained hemodynamically stable. H&H was stable at 14.4 and 39.7, platelets low at 73, K3.7, BUN 4, creatinine 0.79, total bilirubin 4.2, AST 134, ALT 45, albumin 1.9, lipase WNL. Urinalysis WNL. Ethyl alcohol high 376. In ED he was started on Protonix bolus and drip and received thiamine and folic acid IV. Admission Exam Per Admitting Provider Constitutional: Chronically ill-appearing male, appears older than stated age, vitals as above, NAD, sitting up in bed, answers questions appropriate Head: Normocephalic, Atraumatic Eyes: PERRL, conjunctivae normal, anicteric sclerae ENMT: external ear and nose normal, oropharynx normal, very poor dentition Neck: trachea midline, no thyromegaly normal visual inspection Respiratory: normal respiratory effort, lungs clear to auscultation, no wheeze, rales, rhonchi. Normal insp/exp effort, no accessory muscle use Cardiovascular: RRR, no murmur, no edema Vessels: no JVD or carotid bruit Chest: normal inspection of chest Abdomen: Distended abdomen, normal bowel sounds, soft, nontender to palpation Musculoskeletal: no cyanosis or clubbing, extremities motor strength 5/5 Skin: no rashes, warm and dry normal turgor Neurologic: PERRL, EOMI, accommodation nl, no face palsy, no dysarthria CN's II-XI intact bilaterally and moves all extremities Psychiatric: A+Ox3 to basics, euthymic affect Lymphatic: no cervical or axillary lymphadenopathy : deferred Principal Diagnosis Bright red blood per rectum likely secondary to hemorrhoids, alcoholism Discharge Exam General- oriented x 3, not in distress, speaks in sentences with no effort or accessory muscle use Eyes- anicteric Neck- no JVD Lungs- clear breath sounds bilaterally, no rales/wheezes Heart- normal rate, regular rhythm; no murmurs Abdomen- normal bowel sounds, nondistended, soft, nontender Extremities- no pretibial edema, no calf tenderness No tremors Neuro- alert, oriented x 3; no gross focal neurologic deficits Skin- warm & dry Discharge Data Allergies Allergy/AdvReac Type Severity Reaction Status Date / Time fentanyl Allergy Intermediate RASH ALL Verified 04/20/20 14:17 OVER BODY Consultations 04/19/20 18:17 ED Decision to Admit Stat 04/19/20 23:40 Consult Case Management - Discharge Planning Routine Consult Gastroenterology Routine 04/20/20 07:13 Consult Case Management - Discharge Planning Routine Procedures Performed Operation Date: 04/20/20 16:15 Actual Procedures p Esophagogastroduodenoscopy - Hilda Nieves Findings: There is no endoscopic evidence of varices in the lower third of the esophagus. The Z-line was regular and was found 38 cm from the incisors. Moderate portal hypertensive gastropathy was found in the entire examined stomach. The examined duodenum was normal. Impression: - Z-line regular, 38 cm from the incisors. - Portal hypertensive gastropathy. - Normal examined duodenum. - No specimens collected. Recommendation: - Return patient to [facility] for ongoing care. - Perform a colonoscopy at appointment to be scheduled. - May stop the PPI drip and Octreotide. Operation Date: 04/21/20 14:35 Actual Procedures p Colonoscopy - Hilda Nieves Findings: The digital rectal exam findings include non-thrombosed external hemorrhoids. Pertinent negatives include normal sphincter tone. The terminal ileum appeared normal. A tattoo was seen at the hepatic flexure. The tattoo site appeared normal. Many small and large-mouthed diverticula were found in the sigmoid colon and descending colon. Internal hemorrhoids were found during retroflexion. The hemorrhoids were moderate. Impression: - Non-thrombosed external hemorrhoids found on digital rectal exam. - The examined portion of the ileum was normal. - Moderate diverticulosis in the sigmoid colon and in the descending colon. - Internal hemorrhoids. Recommendation: - Return patient to hospital [facility] for ongoing care. - Repeat colonoscopy in 5 years for screening purposes. -Hematochezia most likely related to the patient's large internal and external hemorrhoids. Ordered Studies 04/19/20 16:43 CT abd pelvis IV con only Stat FINDINGS: Lung bases: The heart is normal in size and without pericardial effusion. There are coronary artery calcifications. A 4 mm pulmonary nodule the right lung base is again seen on image #[id number]. There is no airspace consolidation or pleural effusion. There is a small hiatal hernia. Esophageal varices are identified. Gynecomastia is noted. Liver: The contrast-enhanced liver is cirrhotic in morphology and heterogeneous in attenuation. There is nodularity of the hepatic surface contour. Diffusely diminished hepatic attenuation indicates steatosis. There is no intrahepatic biliary ductal dilatation. The hepatic veins and portal veins are patent. There are perigastric collaterals and a splenorenal shunt. Retroperitoneal collaterals are also seen around the right kidney. Gallbladder: Surgically absent noting clips in the gallbladder fossa. Spleen: Normal in size and attenuation. Pancreas: Moderately atrophic and grossly unremarkable. Adrenal glands: Unremarkable. Kidneys: The contrast enhanced kidneys are normal in size and without hydronephrosis. The kidneys enhance symmetrically. Abdominal vasculature: The abdominal aorta is normal in course and caliber noting moderate atherosclerotic calcification. Bowel: There is mild colonic diverticulosis without CT evidence of acute diverticulitis. No bowel obstruction is identified. The appendix is well- visualized and normal. Wall thickening is noted in the right colon. Fold thickening is suggested involving the loops of proximal small bowel. This is similar to previous. Peritoneum: There is a small to moderate volume of abdominopelvic ascites. No intraperitoneal free air is seen. There is a fat and ascitic fluid containing umbilical hernia. Lymphadenopathy: Prominent lymph nodes in the samson hepatis are likely related to chronic liver disease. Pelvic viscera: The bladder is distended but otherwise normal in appearance. The prostate and seminal vesicles are normal as visualized. Skeletal structures: The skeletal structures are osteopenic. There are healed left pubic ring fractures, healed bilateral rib fractures, and mild compression deformities of L2 and L3. No lytic or blastic lesions are seen. IMPRESSION: 1. The liver is cirrhotic in morphology and heterogeneous in attenuation. 2. Abdominal ascites, esophageal varices, a splenorenal shunt, and additional collaterals throughout the abdomen and retroperitoneum indicate portal hypertension. 3. Wall thickening of the right colon is nonspecific and likely related to portal colopathy. Clinical correlation will be required. 4. Fold thickening is seen involving loops of small bowel, and likely related to hypoproteinemia/chronic liver disease. Correlate clinically for evidence of a nonspecific enterocolitis. 5. Bladder distention. 6. A 4 mm pulmonary nodule the right lung base is unchanged from previous. 7. Additional findings as above. 04/20/20 08:00 US abdomen limited Routine FINDINGS: Survey evaluation of the abdomen and pelvis was performed for evaluation for potential ascites. There is a minimal amount of perihepatic ascites. There are no major collections. IMPRESSION: Small amount of perihepatic ascites. Otherwise no significant ascitic fluid collection. Hospital Course (1) BRBPR (bright red blood per rectum): Likely secondary to internal and/or external hemorrhoids Per previous hospitalist notes Dr. Murray: -This is a 54-year-old male who has significant PMH of alcoholic liver cirrhosis with ascites, esophageal varices portal hypertension, COPD, alcohol abuse, tobacco abuse, chronic pancreatitis, thrombocytopenia due to hypersplenism who presents to ED on 04/20/2020 secondary to abdominal pain, diarrhea and BRBPR x4 days -on admission given thiamine, folic acid, banana bag, IV magnesium, IV phosphorous, IV potassium, IV fluids to prevent muscle cramps in context of alcohol use -EGD 04/20/2020 Impression: - Z-line regular, 38 cm from the incisors. - Portal hypertensive gastropathy. - Normal examined duodenum. - No specimens collected. Recommendation: - Return patient to hospital [facility] for ongoing care. - Perform a colonoscopy at appointment to be scheduled. - May stop the PPI drip and Octreotide. - Colonoscopy 04/21/20 Impression: - Non-thrombosed external hemorrhoids found on digital rectal exam. - The examined portion of the ileum was normal. - Moderate diverticulosis in the sigmoid colon and in the descending colon. - Internal hemorrhoids. Recommendation: - Return patient to hospital [facility] for ongoing care. - Repeat colonoscopy in 5 years for screening purposes. -Hematochezia most likely related to the patient's large internal and external hemorrhoids. GI recommendations: Fiber supplementation MiraLAX 17 g 1 time daily Repeat colonoscopy in 5 years Patient should consider alcohol abstinence (2) Alcoholic cirrhosis of liver with ascites: admission CT abdomen 1. The liver is cirrhotic in morphology and heterogeneous in attenuation. 2. Abdominal ascites, esophageal varices, a splenorenal shunt, and additional collaterals throughout the abdomen and retroperitoneum indicate portal hyper tension. 3. Wall thickening of the right colon is nonspecific and likely related to portal colopathy. Clinical correlation will be required. 4. Fold thickening is seen involving loops of small bowel, and likely related to hypoproteinemia/chronic liver disease. Correlate clinically for evidence of a nonspecific enterocolitis. 5. Bladder distention. 6. A 4 mm pulmonary nodule the right lung base is unchanged Compensated Continue to follow closely with GI (3) Esophageal varices: Status post EGD, no signs of bleeding (4) Portal hypertension: Status post EGD, no signs of bleeding (5) Transaminitis: -Appears stable Monitor as outpatient (6) Thrombocytopenia: -Stable at 50 K No signs of bleeding Repeat CBC on follow-up with PCP this Thursday, April 23, 2020 (7) Alcohol abuse: -On Librium protocol No signs of overt alcohol withdrawal Given 2 days course of gabapentin taper Patient strongly encouraged to stop drinking alcohol (8) Hypothyroidism: -TSH elevated as in the past, but normal free T4 -assess medication history and adherence after GI workup is done on this admission DVT prophylaxis SCDs Physician Discharge to home Follow-up with PCP Thursday, April 23, 2020, emphasized importance of following up with primary care physician closely He verbalized understanding and agreement Total Time Total Time Spent Total Time Spent (In Minutes): 55 minutes Discharge Plan Discharge Items Reason For Visit: GIB Discharge Diagnosis: Blood per rectum, likely from Hemorrhoids Low Platelet Count Activity: Resume your previous activity Activity Comment: Gradually as tolerated Non-emergency contact: Primary Care Provider Call non-emergency contact if: you have any medication questions, your symptoms worsen, your pain is not controlled, your pain is worsening, your pain is unusual for you and your pain is concerning for you Follow-up/Referrals: Jean Dave MD [Physician] - 04/23/20 11:00 am PCP,NO [Primary Care Provider] - Diet: Heart Healthy Addtl Attending Provider Instructions: PLEASE REVIEW YOUR NEW MEDICATION LIST AND FOLLOW INSTRUCTIONS CAREFULLY. YOUR NEW MEDICATIONS INCLUDE: MIRALAX AND METAMUCIL- stool softeners to prevent hemorrhoid/bleeding GABAPENTIN- to prevent alcohol withdrawal, Do not take this medication if you are drinking alcohol again GABAPENTIN INSTRUCTIONS: APRIL 22, 2020: TAKE 1 TABLET EVERY 12 HOURS, THEN APRIL 23, 2020: TAKE 1 TABLET, THEN STOP DO NOT TAKE MEDICATIONS UNDER THE CLASS OF NSAIDS SUCH IBUPROFEN, NAPROXEN, ETC. YOUR PLATELET COUNT IS LOW. YOU NEED TO HAVE A REPEAT BLOOD WORK DONE ON THURSDAY APRIL 23, 2020 WHEN YOU SEE YOUR PRIMARY CARE PHYSICIAN. IT IS VERY IMPORTANT THAT YOU COME TO THIS APPOINTMENT. IF YOU HAVE ANY SIGNS OF BLEEDING, CALL YOUR PRIMARY CARE PHYSICIAN OR RETURN TO THE ER IMMEDIATELY. IF YOU HAVE ANY HEAD TRAUMA, DO NOT WAIT, PROCEED TO THE ER IMMEDIATELY FOR EMERGENT EVALUATION INCLUDING A CT SCAN OF THE HEAD. CALL PRIMARY CARE PHYSICIAN OR RETURN TO THE ER IMMEDIATELY IF YOU HAVE RECURRENCE OR WORSENING OF SYMPTOMS, BLACK OR BLOOD STOOLS/VOMIT, ABDOMINAL PAIN, NAUSEA/VOMITING, TREMORS, SWEATING, ANXIETY, CONFUSION. NO SMOKING/ALCOHOL/DRUGS. FOLLOW UP WITH PRIMARY CARE PHYSICIAN DR. DAVE OUTLINED ABOVE. IT IS IMPORTANT THAT YOU FOLLOW UP SCHEDULED WITH YOUR DOCTOR FOR PROPER CONTINUATION OF YOUR CARE. Pending Studies at Discharge: Yes Studies:: REPEAT BLOOD WORK- CBC- ON APRIL 23, 2020 TO MONITOR PLATELET LEVEL. COLONOSCOPY IN 5 YEARS. Stand-Alone Forms: My [employer], Smoking Cessation Medications and DC Order Prescriptions: New Metamucil (sugar) Powder 1 tbs PO BID Qty: 1254 RF: 2 gabapentin 600 mg tablet 600 mg PO UD Qty: 3 RF: 0 polyethylene glycol 3350 [Miralax] 17 gram Powder In Packet 17 g PO DAILY Qty: 30 RF: 2 Continued albuterol sulfate [ProAir HFA] 90 mcg/actuation HFA aerosol inhaler 2 puff INHALATION Q6 PRN (Reason: Shortness Of Breath Or Wheezing) RF: 0 Admission Data Admit Date/Time: 04/19/20 18:56 Attending Provider: Jim Damian Admit Provider: Alexis Murray Primary Care Provider: PCP,NO Other Providers: Alexis Murray ; Ira Mathis Other Interventions: Discharge Summary Assessment (RN) Last Done: 04/21/20 15:28 DC Date/Time DO NOT enter until pt leaves facility: 04/21/20 15:47
[2020-04-23] MEDS ORDERED: chlordiazePOXIDE HCl 5 MG CAP PO SCH (06:00)
== END 2020-04-21 15:47 | disposition home or self-care (01) | DRG 378 ==
LOC: ED 16:23 → SUATTDRO 18:56 → 2W 18:56 → UNDODISIN 04-21 14:50

== ENCOUNTER 2020-06-14 19:41 | Inpatient (IN) ==
--- NOTE | 2020-06-14 20:05 | Emergency Department Note ---
Impression & Plan Alcoholic cirrhosis of liver with ascites, Abdominal pain, Breathlessness, Syncope, Hypomagnesemia, Alcohol intoxication, Hypokalemia ED Provider Note Provider: Melo Huerta MD DATE OF SERVICE: 06/14/2020 CHIEF COMPLAINT: Shortness of breath, abdominal pain HISTORY OF PRESENT ILLNESS: Patient is a 54-year-old male with a history of COPD, alcoholic cirrhosis with ascites, atrial fibrillation, chest pain, asthma presenting today via ambulance from his home. EMS states they were called as family/friends found him unresponsive in his bed. EMS states he was initially unresponsive for them not responding to her sternal rub for approximately 30 seconds. Then began to come around. Patient here is complaining of shortness of breath and some diffuse abdominal pain. Endorse significant abdominal swelling. Patient denies trauma or falling. Is complain of little bit of left to right lower neck pain. Complains of a little bit of a headache. States he did drink several beers today. Denies significant lower extremity swelling. He is somewhat of a poor historian. States a little bit of abdominal tenderness. Some nausea reported. REVIEW OF SYSTEMS: A total of 10 review of systems was obtained and negative except as stated above in the HPI. PAST MEDICAL HISTORY: As noted above MEDICATIONS: Reviewed home medications that EMS brought with the patient. SOCIAL HISTORY: Patient is a smoker and uses alcohol PHYSICAL EXAM: GENERAL: alert and oriented in no acute distress on stretcher Head: normocephalic and atraumatic EYES: No injection, discharge or icterus. PERRL NECK: Trachea midline. Supple. Does dorsal little bit of left lower right lower trapezius tenderness at the base the neck but no meningeal signs. ENT: Mucous membranes pink and moist. LUNGS: Airway patent. No retractions. Breath sounds clear but diminished bases. HEART: Regular rate and rhythm. No chest wall tenderness ABDOMEN: Swollen and mildly diffusely tender but not peritoneal. Umbilicus is mildly protruding. SKIN: Acyanotic, warm, dry, without rashes EXTREMITIES: Without swelling, tenderness or deformity NEUROLOGICAL: No focal deficits. No aphasia. No facial droop or slurred speech. EK bpm normal sinus rhythm. No PVCs or PACs. No acute ST segment elevation. QTC prolonged at 499. Compared to previous eval from May 10 of this year QT has prolonged. CONTINUOUS CARDIAC MONITORING: was ordered and showed a heart rate of 88 bpm in normal sinus rhythm Patient's hypertension was referred to the hospitalist 1 view chest x-ray per my interpretation No evidence of acute pneumothorax or pneumonia, there are bibasilar hilar interstitial changes noted but this appears stable compared to previous x-ray. No acute bony abnormality noted. Patient's laboratory studies and imaging reviewed. Differential includes Appendicitis, infections, diverticulitis, UTI, obstruction, mesenteric ischemia, aortic pathology, inflammatory bowel disease, renal colic, PUD, pancreatitis, biliary pathology, hernia, volvulus, constipation, pneumonia, VTE, cardiac etiology as well as other pathologies. IMPRESSION/MEDICAL DECISION MAKING: Patient presents after unresponsive episode in his bed. Question whether this could have been related to possible alcohol use that he endorses using earlier. There is no significant trauma history however given his comorbidities and history of CT the head and cervical spine was completed include acute pathology. Chest x-ray obtained was a CT the abdomen pelvis. Patient appears to have reaccumulated significant abdominal ascites likely causing his shortness of breath. Not appreciably wheezing have a lower suspicion for COPD exacerbation. Lower suspicion at this time for acute coronavirus infection or pneumonia given lack of infectious symptoms reported. Patient is at this time not requiring oxygen supplementation or hypoxic. Basic labs were sent including medical alcohol and INR. EKG was completed with findings of some QT prolongation but no evidence of acute ischemic changes. Troponin was sent as well but I have a low suspicion for ACS. No pulsating abdominal mass and seems inconsistent with an acute abdominal aortic aneurysm. Patient's not having focal deficit at this time concerning for acute CVA. He does not appear meningitic. Given this held Zofran at this time. Patient's labs show stable mild anemia and no leukocytosis. INR mildly elevated similar to previous value. Significantly elevated alcohol level of 292 is noted. This likely explains his transient episodes of syncope or minimal responsiveness earlier. No evidence of acute pancreatitis. proBNP not significantly elevated. Low albumin appears chronic. Hypokalemia and hypomagnesemia noted and replacement was ordered. Renal function at baseline. Urinalysis without evidence of infection. I doubt given this that he is having acute SBP. Last had paracentesis approximately 3 weeks ago for several liters. Would likely benefit from another. Chest x-ray appears stable. CTs reviewed without significant traumatic findings or significant acute intra-abdominal pathology. At this time discussed with the patient further inpatient evaluation and paracentesis likely in the morning. He was in agreement with this plan. Hospitalist was contacted. DIAGNOSIS: Abdominal ascites, shortness of breath, syncope, hypokalemia, hypomagnesemia, alcohol intoxication DISPOSITION: Hospitalist will evaluate Patient was agreeable with this plan. Preliminary Findings Only See Final Report For Complete Findings CT HEAD: Comparison to September 10, 2014. The paranasal sinuses and mastoid air cells are normally aerated. There is no skull fracture or scalp hematoma. There is a normal gyral pattern of the brain. There is no mass lesion or midline shift. The tan-white matter differentiation is maintained. There is mild periventricular white matter low density bilaterally consistent with chronic small vessel disease. There is no evidence of acute large vessel infarct or intracranial hemorrhage. Radiologist: Melo Christian MD Study ready at 20:46 and initial results transmitted at 21:07 Preliminary Findings Only See Final Report For Complete Findings CT ABDOMEN & PELVIS Without Contrast: Comparisons are May 25, 2020. There is severe fatty infiltration of the liver which measures 16.6 cm craniocaudad. There is a moderate amount of ascites throughout the abdomen and pelvis greatest inferior to the liver. The spleen is not enlarged measuring 12 cm long axis. There are signs of portal hypertension with an enlarged superior mesenteric to IVC collateral vein between the liver and duodenum measuring 1 cm in diameter. Bowel loops are nondilated. There is moderate diverticulosis of the lower left:. Possible wall thickening of the right colon. Mild colitis cannot be excluded. The appendix is normal. Previous cholecystectomy. Skeletal structures appear unremarkable. No hydronephrosis or ureterolithiasis is seen. The urinary bladder is normally distended and unremarkable. Radiologist: Melo Christian MD Study ready at 20:46 and initial results transmitted at 21:14 Preliminary Findings Only See Final Report For Complete Findings CT C SPINE: Sagittal reformatted images show normal prevertebral soft tissues. The vertebral body heights are normally maintained. The facets and spinous processes are intact. The alignment is normal. Mild to moderate multilevel degenerative loss of disc space height and osteophytosis throughout the mid to lower cervical spine greatest at C6-7. There is mild multilevel facet sclerosis and osteophytosis greater on the left. No acute fracture or subluxation is seen involving the cervical spine. Radiologist: Melo Christian MD Study ready at 20:46 and initial results transmitted at 21:17 Past Med/Surg History Medical History Alcohol abuse Alcohol dependence Alcoholic cirrhosis of liver without ascites Atrial fibrillation Chronic anxiety Chronic obstructive pulmonary disease Chronic pancreatitis COPD, mild Esophageal varices Hypertension Hypothyroidism Myocardial Infarction On home oxygen therapy Paroxysmal atrial fibrillation Pulmonary embolism Seizure Surgical History H/O colonoscopy History of cholecystectomy "2009" History of esophagogastroduodenoscopy (EGD) "12/15/2014- Small varices. Erosive duodenitis." 01/09/17 - esophageal varicies, gastritis Family History Mother Diabetes Father Coronary heart disease Social History Smoking Status: Current every day smoker Tobacco Type: Cigarettes Cigarettes Per Day: 10; Second Hand Exposure: No; Hx Alcohol Use: Yes Alcohol type: beer Alcohol Intake Frequency Comment: 4 32 oz Bring Light daily Hx Substance Use: No Preferred Language: Malaysian Communication Ability: Effective Visual Impairment: No Limitations Avian Keeper Required: No Beliefs That Will Affect Care: None marital status: Current Living Situation: Parent Current Living Situation Comment: parents Feels Safe at Home: Yes Allergies Allergies Allergy/AdvReac Type Severity Reaction Status Date / Time fentanyl Allergy Intermediate RASH ALL Verified 06/14/20 21:14 OVER BODY Home Meds Home Medications Medication Instructions Recorded Confirmed furosemide 20 mg PO QAM 06/14/20 06/14/20 levothyroxine 25 mcg PO QAM 06/14/20 06/14/20 spironolactone 50 mg PO DAILY 06/14/20 06/14/20 Results & Data (ED) Vital Signs Vital Signs - 24 hr 06/14/20 19:45 06/14/20 20:29 06/14/20 20:30 Temperature 36.6 C Temperature Source Oral Pulse Rate 100 H Pulse Rate [Right Finger] 88 Pulse Rate from SpO2 Sensor Pulse Rhythm Regular Pulse Rhythm [Right Finger] Regular Pulse Strength Normal Pulse Strength [Right Finger] Normal Respiratory Rate 20 22 Respiratory Effort / Characteristics Non-Labored Spontaneous Non-Labored Spontaneous Respiratory Depth Normal Normal Respiratory Pattern Regular Blood Pressure 123/87 Blood Pressure [Right Arm] 117/71 Blood Pressure Mean 99 Blood Pressure Mean [Right Arm] 86 Blood Pressure Position Sitting Blood Pressure Position [Right Arm] Sitting Pulse Oximetry 97 96 96 Oxygen Delivery Method Room Air Room Air Room Air Oxygen Flow Rate Sepsis Recent Fever Within 48 Hours No Sepsis New/Unexplained Change in Mental Status Yes Sepsis Action Taken by Nursing No Action Required Oxygen Flow Rate - Titration Pulse Oximetry Post Tiitration 06/14/20 20:46 06/14/20 21:00 06/14/20 21:30 Temperature Temperature Source Pulse Rate 86 97 H 92 H Pulse Rate [Right Finger] Pulse Rate from SpO2 Sensor 86 83 76 Pulse Rhythm Pulse Rhythm [Right Finger] Pulse Strength Pulse Strength [Right Finger] Respiratory Rate 19 23 21 Respiratory Effort / Characteristics Respiratory Depth Respiratory Pattern Blood Pressure 106/60 106/69 98/59 L Blood Pressure [Right Arm] Blood Pressure Mean 72 82 70 Blood Pressure Mean [Right Arm] Blood Pressure Position Blood Pressure Position [Right Arm] Pulse Oximetry 94 92 91 Oxygen Delivery Method Oxygen Flow Rate Sepsis Recent Fever Within 48 Hours Sepsis New/Unexplained Change in Mental Status Sepsis Action Taken by Nursing Oxygen Flow Rate - Titration Pulse Oximetry Post Tiitration 06/14/20 22:00 06/14/20 22:11 06/14/20 22:13 Temperature Temperature Source Pulse Rate 83 Pulse Rate [Right Finger] 82 Pulse Rate from SpO2 Sensor 83 Pulse Rhythm Pulse Rhythm [Right Finger] Regular Pulse Strength Pulse Strength [Right Finger] Normal Respiratory Rate 19 20 Respiratory Effort / Characteristics Non-Labored Spontaneous Respiratory Depth Normal Respiratory Pattern Regular Blood Pressure 92/57 L Blood Pressure [Right Arm] 92/57 L Blood Pressure Mean 74 Blood Pressure Mean [Right Arm] 68 Blood Pressure Position Blood Pressure Position [Right Arm] Lying Pulse Oximetry 90 88 L 97 Oxygen Delivery Method Room Air Nasal Cannula Oxygen Flow Rate 2 Sepsis Recent Fever Within 48 Hours Sepsis New/Unexplained Change in Mental Status Sepsis Action Taken by Nursing Oxygen Flow Rate - Titration 2 Pulse Oximetry Post Tiitration 96 06/14/20 22:30 Temperature Temperature Source Pulse Rate Pulse Rate [Right Finger] Pulse Rate from SpO2 Sensor 81 Pulse Rhythm Pulse Rhythm [Right Finger] Pulse Strength Pulse Strength [Right Finger] Respiratory Rate Respiratory Effort / Characteristics Respiratory Depth Respiratory Pattern Blood Pressure 114/69 Blood Pressure [Right Arm] Blood Pressure Mean 74 Blood Pressure Mean [Right Arm] Blood Pressure Position Blood Pressure Position [Right Arm] Pulse Oximetry 98 Oxygen Delivery Method Oxygen Flow Rate Sepsis Recent Fever Within 48 Hours Sepsis New/Unexplained Change in Mental Status Sepsis Action Taken by Nursing Oxygen Flow Rate - Titration Pulse Oximetry Post Tiitration Laboratory Data Result diagrams: 06/14/20 20:00 06/14/20 20:00 Lab Results 06/14/20 06/14/20 06/14/20 Range/Units 20:00 20:00 20:00 WBC 6.51 (4.8-10.8) K/uL RBC 3.33 L (4.7-6.1) M/uL Hgb 12.9 L (14.0-18.0) g/dL Hct 36.4 L (42-52) % MCV 109.3 H (80-100) fL MCH 38.7 H (25-34) pg MCHC 35.4 (32-36) g/dL RDW Std Deviation 60.1 H (36.4-46.3) fL RDW Coeff of Hernandez 15.1 H (11.5-14.5) % Plt Count 83 L (130-400) K/uL MPV 11.6 H (7.4-10.4) fL Immature Gran % (Auto) 0.3 % Neut % (Auto) 42.8 % Lymph % (Auto) 40.6 % [place] % (Auto) 10.8 % Eos % (Auto) 4.3 % Baso % (Auto) 1.2 % Neut # (Auto) 2.79 (1.4-6.5) K/uL Lymph # (Auto) 2.64 (1.2-3.4) K/uL [place] # (Auto) 0.70 H (0.11-0.59) K/uL Eos # (Auto) 0.28 (0-0.5) K/uL Baso # (Auto) 0.08 (0-0.2) K/uL Immature Gran # (Auto) 0.02 (0.00-0.02) K/uL Platelet Estimate Decreased L (Normal) PT (9.0-12.0) Seconds INR (0.9-1.1) APTT (21.0-31.0) Seconds PTT Ratio Sodium 134 L (136-145) mmol/L Potassium 2.6 L (3.5-5.1) mmol/L Chloride 97 L (98-107) mmol/L Carbon Dioxide 26 (21-32) mmol/L Anion Gap 12.0 H (3-11) BUN 6 L (7-18) mg/dl Creatinine 0.76 (0.6-1.4) mg/dl Est Cr Clr Drug Dosing 95.5 ml/min Est GFR ( Amer) 119.0 Est GFR (Non-Af Amer) 102.7 BUN/Creatinine Ratio 8.1 L (10-20) Glucose 87 (70-99) mg/dl Calcium 8.1 L (8.5-10.1) mg/dl Magnesium 1.5 L (1.8-2.4) mg/dl Total Bilirubin 5.6 H (0.2-1) mg/dl AST 91 H (15-37) U/L ALT 34 (12-78) U/L Alkaline Phosphatase 115 (45-117) U/L Troponin I 0.017 (0-0.045) ng/ml NT-Pro-B Natriuret Pep 122 (0-900) pg/ml Total Protein 7.4 (6.4-8.2) gm/dl Albumin 1.7 L (3.4-5.0) gm/dl Globulin 5.7 H (2.5-4.0) gm/dl Albumin/Globulin Ratio 0.3 L (0.9-2) Lipase 355 (73-393) U/L Urine Color Urine Appearance (Clear) Urine pH (4.5-7.5) Ur Specific [place] (1.000-1.030) Urine Protein (Negative) Urine Glucose (UA) (Negative) Urine Ketones (Negative) Urine Blood (Negative) Urine Nitrite (Negative) Urine Bilirubin (Negative) Urine Urobilinogen (Negative) Ur Leukocyte Esterase (Negative) Ethyl Alcohol mg/dL 292.7 H (0-3) mg/dl 06/14/20 06/14/20 Range/Units 20:00 20:23 WBC (4.8-10.8) K/uL RBC (4.7-6.1) M/uL Hgb (14.0-18.0) g/dL Hct (42-52) % MCV (80-100) fL MCH (25-34) pg MCHC (32-36) g/dL RDW Std Deviation (36.4-46.3) fL RDW Coeff of Hernandez (11.5-14.5) % Plt Count (130-400) K/uL MPV (7.4-10.4) fL Immature Gran % (Auto) % Neut % (Auto) % Lymph % (Auto) % [place] % (Auto) % Eos % (Auto) % Baso % (Auto) % Neut # (Auto) (1.4-6.5) K/uL Lymph # (Auto) (1.2-3.4) K/uL [place] # (Auto) (0.11-0.59) K/uL Eos # (Auto) (0-0.5) K/uL Baso # (Auto) (0-0.2) K/uL Immature Gran # (Auto) (0.00-0.02) K/uL Platelet Estimate (Normal) PT 17.7 H (9.0-12.0) Seconds INR 1.7 H (0.9-1.1) APTT 35.0 H (21.0-31.0) Seconds PTT Ratio 1.3 Sodium (136-145) mmol/L Potassium (3.5-5.1) mmol/L Chloride (98-107) mmol/L Carbon Dioxide (21-32) mmol/L Anion Gap (3-11) BUN (7-18) mg/dl Creatinine (0.6-1.4) mg/dl Est Cr Clr Drug Dosing ml/min Est GFR ( Amer) Est GFR (Non-Af Amer) BUN/Creatinine Ratio (10-20) Glucose (70-99) mg/dl Calcium (8.5-10.1) mg/dl Magnesium (1.8-2.4) mg/dl Total Bilirubin (0.2-1) mg/dl AST (15-37) U/L ALT (12-78) U/L Alkaline Phosphatase (45-117) U/L Troponin I (0-0.045) ng/ml NT-Pro-B Natriuret Pep (0-900) pg/ml Total Protein (6.4-8.2) gm/dl Albumin (3.4-5.0) gm/dl Globulin (2.5-4.0) gm/dl Albumin/Globulin Ratio (0.9-2) Lipase (73-393) U/L Urine Color Yellow Urine Appearance Clear (Clear) Urine pH 6.5 (4.5-7.5) Ur Specific [place] 1.004 (1.000-1.030) Urine Protein Negative (Negative) Urine Glucose (UA) Negative (Negative) Urine Ketones Negative (Negative) Urine Blood Negative (Negative) Urine Nitrite Negative (Negative) Urine Bilirubin Negative (Negative) Urine Urobilinogen Negative (Negative) Ur Leukocyte Esterase Negative (Negative) Ethyl Alcohol mg/dL (0-3) mg/dl Administered Medications Ceftriaxone Sodium 2,000 mg/ (Dextrose) 70 mls @ 100 mls/hr IV Q24H [facility]; Protocol Stop: 06/25/20 00:00 Last Admin: 06/15/20 00:27 Dose: 100 mls/hr Documented by: [id number] Folic Acid 1 mg/ Syringe 10 mls @ 5 mls[place] [place]: 07/14/20 23:43 Last Admin: 06/15/20 00:20 Dose: 5 mls/min Documented by: [id number] Potassium Chloride (K [place] / Wtr) 10 meq in 100 mls @ 100 mls/hr IV Q1H [facility] Stop: 06/15/20 01:43 Last Admin: 06/15/20 00:33 Dose: 100 mls/hr Documented by: [id number] Thiamine HCl 100 mg/ Syringe 10 mls @ 2 mls/min IV QAM [facility] Stop: 07/14/20 23:43 Last Admin: 06/15/20 00:24 Dose: 2 mls/min Documented by: [id number] Discontinued Medications Gabapentin (Gabapentin 600 Mg Tab) 1,200 mg PO NOW ONE Stop: 06/14/20 23:45 Last Admin: 06/15/20 00:26 Dose: 1,200 mg Documented by: [id number] Potassium Chloride (K [place] / Wtr) 10 meq in 100 mls @ 100 mls/hr IV ONE ONE Stop: 06/14/20 21:36 Last Infusion: 06/14/20 21:59 Dose: 0 mls/hr Documented by: [id number] Admin: 06/14/20 20:47 Dose: 100 mls/hr Documented by: [id number] Magnesium Sulfate/Dextrose (Magnesium Sulfate / D5w) 1 gm in 100 mls @ 200 mls/hr IV Q30M [facility] Stop: 06/14/20 21:44 Last Infusion: 06/14/20 21:59 Dose: 0 mls/hr Documented by: [id number] Admin: 06/14/20 21:29 Dose: 200 mls/hr Documented by: [id number] Infusion: 06/14/20 21:29 Dose: 0 mls/hr Documented by: [id number] Admin: 06/14/20 20:58 Dose: 200 mls/hr Documented by: [id number] Potassium Chloride (Potassium Chloride 20 Meq/15 Ml Udc) 60 meq PO NOW STA Stop: 06/14/20 23:45 Last Admin: 06/15/20 00:22 Dose: 60 meq Documented by: [id number] Discharge Plan Visit Data Chief Complaint: Abdominal Pain Stated Complaint: SOB, AB PAIN ED Provider: Melo Huerta Discharge Problem: Alcoholic cirrhosis of liver with ascites, Abdominal pain, Breathlessness, Syncope, Hypomagnesemia, Alcohol intoxication, Hypokalemia Patient Disposition: Admitted As Inpatient Discharge Instructions Interventions: ED Discharge Assessment Last Done: 06/14/20 23:23 Discharge Problem: Abdominal pain Qualifiers: Abdominal location: generalized Qualified Code(s): R10.84 - Generalized abdominal pain Syncope Qualifiers: Syncope type: unspecified Qualified Code(s): R55 - Syncope and collapse Alcohol intoxication Qualifiers: Complication of substance-induced condition: with unspecified complication Qualified Code(s): F10.929 - Alcohol use, unspecified with intoxication, unspecified
[2020-06-14 20:16] LABS: Hematocrit (blood only) 36.4 % (42-52); Hemoglobin 12.9 g/dL (14.0-18.0); Mean Corpuscular Hemoglobin 38.7 pg (25-34); Mean Corpuscular Hgb Conc 35.4 g/dL (32-36); Mean Corpuscular Volume 109.3 fL (80-100); RDW Coefficient of Variation 15.1 % (11.5-14.5); RDW Standard Deviation 60.1 fL (36.4-46.3); Red Blood Count 3.33 M/uL (4.7-6.1); White Blood Count 6.51 K/uL (4.8-10.8)
[2020-06-14 20:26] LABS: INR 1.7 (0.9-1.1); Partial Thromboplastin Ratio 1.3; Prothrombin Time 17.7 Seconds (9.0-12.0)
[2020-06-14 20:34] LABS: Albumin Level 1.7 gm/dl (3.4-5.0); BUN Creatinine Ratio 8.1 (10-20); Calcium 8.1 mg/dl (8.5-10.1); Creatinine Clr Calc Pharmacy 95.5 ml/min; Est GFR (Non-African American) 102.7; Magnesium 1.5 mg/dl (1.8-2.4); Potassium 2.6 mmol/L (3.5-5.1)
[2020-06-14 20:35] LABS: Appearance Urine Clear (Clear); Bilirubin Urine Negative (Negative); Blood Urine Negative (Negative); Color Urine Yellow; Glucose Urine UA Negative (Negative); Ketones Urine Negative (Negative); Leukocyte Esterase Urine Negative (Negative); Nitrite Urine Negative (Negative); Protein Urine Negative (Negative); Specific Gravity Urine 1.004 (1.000-1.030); Urobilinogen Urine Negative (Negative); pH Urine 6.5 (4.5-7.5)
[2020-06-14] MEDS ORDERED: POTASSIUM CHLORIDE / WTR 10 MEQ/100 ML PLCT IV ONE (20:37)
[2020-06-14 20:41] LABS: Albumin Globulin Ratio 0.3 (0.9-2); Bilirubin,Total 5.6 mg/dl (0.2-1); Globulin 5.7 gm/dl (2.5-4.0); Total Protein 7.4 gm/dl (6.4-8.2); Troponin I 0.017 ng/ml (0-0.045)
[2020-06-14 20:51] LABS: Mean Platelet Volume 11.6 fL (7.4-10.4); Platelet Count 83 K/uL (130-400)
[2020-06-14 20:52] LABS: Basophils # (auto) 0.08 K/uL (0-0.2); Basophils % (auto) 1.2 %; Eosinophils # (auto) 0.28 K/uL (0-0.5); Eosinophils % (auto) 4.3 %; Immature Granulocytes # (auto) 0.02 K/uL (0.00-0.02); Immature Granulocytes % (auto) 0.3 %; Lymphocytes # (auto) 2.64 K/uL (1.2-3.4); Lymphocytes % (auto) 40.6 %; Monocytes % (auto) 10.8 %; Neutrophils # (auto) 2.79 K/uL (1.4-6.5); Neutrophils % (auto) 42.8 %; Platelet Estimate Decreased (Normal)
[2020-06-14] MEDS: MAGNESIUM SULFATE / D5W 1 GM/100 ML BAG IV SCH ×2 (20:58→21:29)
[2020-06-14] MEDS ORDERED: LORazepam 1 MG/2 ML VIAL IV PRN (23:44)
[2020-06-14] MEDS ORDERED: GABAPENTIN 1200MG ALCOHOL WITHDRAWAL LOAD PO STA (23:44)
[2020-06-14] MEDS ORDERED: MULTI-VITAMIN INFUSION 10 ML, THIAMINE HCL 100 MG, FOLIC ACID 1 MG in SODIUM CHLORIDE 0... IV ONE (23:44)
[2020-06-14] MEDS ORDERED: LORazepam 2 MG/4 ML VIAL IV PRN (23:44)
[2020-06-14] MEDS ORDERED: ALBUTEROL HFA 8 GM INHALER INH PRN (23:44)
[2020-06-14] MEDS ORDERED: GABAPENTIN 600 MG TAB PO ONE (23:44)
[2020-06-14] MEDS ORDERED: ATIVAN IV ALCOHOL WITHDRAWL IV PRN (23:44)
[2020-06-14] MEDS ORDERED: NITROGLYCERIN SL 0.4 MG/TAB TAB SL PRN (23:44)
[2020-06-14] MEDS ORDERED: LORazepam 3 MG/6 ML VIAL IV PRN (23:44)
[2020-06-14] MEDS ORDERED: POTASSIUM CHLORIDE 20 MEQ/15 ML UDC PO STA (23:44)
[2020-06-15] MEDS: FOLIC ACID 1 MG in SYRINGE 9.8 ML IV SCH ×2 (00:20→07:36)
[2020-06-15] MEDS: THIAMINE HCL 100 MG in SYRINGE 9 ML IV SCH ×2 (00:24→07:36)
[2020-06-15] MEDS: cefTRIAXone SODIUM 2,000 MG in DEXTROSE 5% 50 ML IV SCH ×2 (00:27→23:50)
[2020-06-15] MEDS: POTASSIUM CHLORIDE / WTR 10 MEQ/100 ML PLCT IV SCH ×2 (00:33→01:34)
--- NOTE | 2020-06-15 02:00 | History and Physical Report ---
DATE OF ADMISSION: 06/14/2020 CHIEF COMPLAINT: The patient was found unresponsive at home. Currently alert and awake. Complains of abdominal pain and all over body ache. HISTORY OF PRESENT ILLNESS: This is a 54-year-old male with past medical history significant for alcoholic liver cirrhosis with ascites, oesophageal varices, portal hypertension, COPD, ongoing alcohol abuse, ongoing tobacco abuse, history of chronic pancreatitis, history of thrombocytopenia due to hypersplenism, history of paroxysmal atrial fibrillation, pulmonary hypertension, history of pulmonary embolus, portal vein thrombosis, not on anticoagulation, history of chronic anxiety and depression. The patient says he lives with his parents. He was found unresponsive in his bed by his family and friends. As per the ER notes, EMS found him initially unresponsive and not responding to sternal rub for approximately 30 seconds, then he came around, and complaining of pain of abdomen, some shortness of breath and complained of increasing abdominal swelling. The patient is currently alert and awake, somewhat hard of hearing, complains of abdominal pain and distention of abdomen, complains of some chest discomfort. Complains of neck pain, back pain, body ache. He also thinks that the swelling in his legs is worsening. He is taking Lasix, but as per the Epic notes, he was supposed to be on spironolactone, but he is not taking it so far. Denies any fever, chills. Has chronic cough. He gets headaches, but currently no headache, no blurred visions, no earache, no runny nose, no sore throat. No loss of sense of smell or taste, did not eat anything today. Ambulates okay at home. Denies any blood in the stools or black stools. Normal bladder movements. The patient says he wants to eat something now. Says he drank about two 16 ounces and one 12 ounces of beer today and alcohol level was 292 in the ER. ALLERGIES: FENTANYL. PAST MEDICAL HISTORY: As mentioned above. PAST SURGICAL HISTORY: Colonoscopy with biopsies, EGD with endoscopic ultrasound, laparoscopic cholecystectomy. MEDICATIONS: The patient is on Lasix 20 mg daily, spironolactone supposed to be on 50 mg daily, levothyroxine 75 mcg p.o. daily, albuterol 2 puffs q. 4 hours p.r.n. FAMILY HISTORY: Significant for mother has diabetes, father had GA, aunt has leukemia. SOCIAL HISTORY: , lives with his parents. Smokes half pack a day for last 30 years. Current ongoing alcohol use. No drug use as per Epic records. REVIEW OF SYSTEMS: As per HPI. Rest of the review of systems negative. PHYSICAL EXAMINATION: GENERAL: The patient is alert and awake, does not seem to be in acute distress. VITAL SIGNS: Temperature 36.6, pulse 82, respiratory rate 20, blood pressure 92/57, oxygen 97% on 2 liters. HEENT: Pupils equal, round, reactive to light. Oral mucosa moist. NECK: Supple, no neck masses seen. CARDIOVASCULAR: S1, S2 heard, regular rate and rhythm, no murmur, no gallop. RESPIRATORY SYSTEM: Normal AP diameter. No accessory muscle use. No wheezing, no crackles. ABDOMEN: Soft, bowel sounds sluggish. Abdomen distended, mild abdominal generalized discomfort. No guarding. CENTRAL NERVOUS SYSTEM: Cranial nerves II-XII grossly intact. Nonfocal. EXTREMITIES: Bilateral lower extremity edema, +2 present. LABORATORY DATA: WBC 6.5, hemoglobin 12.9, hematocrit 36.4, platelets 83. PT 17.7, INR 1.7, APTT 35. Sodium 134, potassium 2.6, chloride 97, bicarbonate 26, BUN 6, creatinine 0.7, serum glucose 87, calcium 8.1, magnesium 1.5, total bilirubin 5.6, AST 91, ALT 34, alkaline phosphatase 115. Troponin I of 0.017. BNP 122, lipase 355. Urinalysis negative. Ethyl alcohol 292. IMAGING DATA: CT of the head preliminary report unremarkable. Chest x-ray, no acute findings seen. Cervical spine CT preliminary report unremarkable. CT of the abdomen and pelvis without contrast, preliminary report shows moderate ascites, signs of portal hypertension. EKG: Normal sinus rhythm at the rate of 91, nonspecific ST abnormalities, no significant change from previous EKG. QTC is 499. ASSESSMENT AND PLAN: This is a 54-year-old male who presents with unresponsive episode at home. Could be from the alcoholism, ongoing alcoholism and tobacco abuse. Complains of abdominal pain and increased distention of the abdomen. 1. Ongoing alcoholism. Unresponsive episode at home, could be most likely secondary to alcoholism. Currently, the patient is alert and awake. CT of the head is unremarkable. Labs are okay except for hypokalemia and elevated alcohol. We will start him on gabapentin alcohol protocol and IV Ativan p.r.n. and will give banana bag, IV thiamine, IV folic acid and closely monitor in the med tele. 2. Ascites and abdominal pain, rule out spontaneous bacterial peritonitis. We will empirically start on IV Rocephin. He will get a paracentesis in the a.m., will get diagnostic and therapeutic paracentesis. He had 4 liters taken out recently. We will consult GI in the a.m. 3. Cirrhosis. The patient is on Lasix and Aldactone. Seems to be not taking the Aldactone. Getting gentle fluids now. We will monitor for any volume overload. GI consulted. Adjustment of diuretics as per GI. Will follow the final report of the CAT scan of the abdomen and pelvis. 4. Hypokalemia and hypomagnesemia, we will replace, we will follow the repeat labs. 5. Tobacco abuse, needs counseling. 6. History of atrial fibrillation, currently in sinus rhythm, not on any anticoagulation. 7. Thrombocytopenia, due to hypersplenism. We will follow the labs. 8. Hypothyroidism. Continue Synthroid. 9. History of chronic pancreatitis, currently lipase is normal. 10. Lower extremity edema, mostly from the liver cirrhosis, adjustment of diuretics. 11. Deep venous thrombosis prophylaxis, sequential compression devices for now. 12. Disposition: Closely monitor in the med tele. Level 1 full code. Expect to discharge home and follow with family doctor. JAILYN
[2020-06-15] MEDS: NSS + 20MEQ KCL 20 MEQ/1,000 ML BAG IV SCH ×2 (02:45→23:50)
[2020-06-15 05:38] LABS: Hematocrit (blood only) 33.5 % (42-52); Hemoglobin 11.9 g/dL (14.0-18.0); Mean Corpuscular Hemoglobin 38.9 pg (25-34); Mean Corpuscular Hgb Conc 35.5 g/dL (32-36); Mean Corpuscular Volume 109.5 fL (80-100); RDW Coefficient of Variation 15.3 % (11.5-14.5); RDW Standard Deviation 60.7 fL (36.4-46.3); Red Blood Count 3.06 M/uL (4.7-6.1); White Blood Count 4.79 K/uL (4.8-10.8)
[2020-06-15 05:45] LABS: Mean Platelet Volume 11.8 fL (7.4-10.4); Platelet Count 72 K/uL (130-400)
[2020-06-15] MEDS: GABAPENTIN 600 MG TAB PO SCH ×3 (06:01→22:00)
[2020-06-15] MEDS: LEVOTHYROXINE SODIUM 25 MCG TABLET PO SCH (06:01)
[2020-06-15 06:12] LABS: Basophils # (auto) 0.05 K/uL (0-0.2); Eosinophils # (auto) 0.12 K/uL (0-0.5); Eosinophils % (auto) 2.5 %; Immature Granulocytes # (auto) 0.01 K/uL (0.00-0.02); Immature Granulocytes % (auto) 0.2 %; Lymphocytes # (auto) 1.78 K/uL (1.2-3.4); Lymphocytes % (auto) 37.2 %; Monocytes % (auto) 12.5 %; Neutrophils # (auto) 2.23 K/uL (1.4-6.5); Neutrophils % (auto) 46.6 %
[2020-06-15 06:25] LABS: Albumin Level 1.4 gm/dl (3.4-5.0); BUN Creatinine Ratio 9.7 (10-20); Bilirubin Direct 1.7 mg/dl (0-0.2); Bilirubin,Total 4.7 mg/dl (0.2-1); Creatinine Clr Calc Pharmacy 129.7 ml/min; Est GFR (Non-African American) 116.4; Magnesium 1.9 mg/dl (1.8-2.4); Potassium 3.3 mmol/L (3.5-5.1); Total Protein 6.2 gm/dl (6.4-8.2)
[2020-06-15] MEDS ORDERED: POTASSIUM CHLORIDE 20 MEQ/15 ML UDC PO STA (06:30)
--- NOTE | 2020-06-15 06:34 | CT Scan Report ---
CT head/brain wo con CLINICAL HISTORY: 54 years-old Male with syncope. Acute syncope TECHNIQUE: Multiple axial CT images of the head were obtained without contrast. A dose lowering tech nique was utilized adhering to the principles of ALARA. CT DOSE: 1549.02 mGy.cm COMPARISON: Head CT 10/28/2019. FINDINGS: No acute intracranial hemorrhage, midline shift, intracranial mass, hydrocephalus, territorial ischem ia or abnormal extra-axial collection. Age-related involutional changes. Mild patchy white matter hyp odensities suggestive of chronic microvascular ischemic disease. Senescent calcifications of the basa l ganglia. The calvarium is intact. The paranasal sinuses, mastoid air cells, and middle ear cavities are clear . IMPRESSION: No acute intracranial abnormality. ACT 112: Negative or not required by law. The above report was generated using voice recognition software. It may contain grammatical, syntax o r spelling errors. Electronically signed by: Cosme Norris M.D. 06/15/2020 6:33 AM
--- NOTE | 2020-06-15 06:45 | CT Scan Report ---
CT cervical spine wo con CLINICAL HISTORY: 54 years-old Male with syncope, neck pain. Acute neck pain with injury COMPARISON: CT soft tissue neck 11/26/2019. TECHNIQUE: Multiple axial CT images of the cervical spine were obtained without contrast. A dose low ering technique was utilized adhering to the principles of ALARA. FINDINGS: Moderate disc space narrowing with spondylitic spurring and posterior disc osteophyte complex formati on at C6-C7. There is moderate and severe multilevel facet arthrosis. Convex right curvature of the m id cervical spine. No acute fracture or subluxation. Evaluation of the central canal and neuroforamin a is better assessed by MRI. Pleural parenchymal scarring of the lung apices, right greater than left with subpleural bleb formati on. No pneumothorax. Thyroid goiter. Calcified plaque of the carotid bulbs. No prevertebral edema. IMPRESSION: No acute fracture or subluxation. ACT 112: Negative or not required by law. The above report was generated using voice recognition software. It may contain grammatical, syntax o r spelling errors. Electronically signed by: Cosme Norris M.D. 06/15/2020 6:43 AM
[2020-06-15 06:52] LABS: Troponin I 0.026 ng/ml (0-0.045)
--- NOTE | 2020-06-15 06:56 | XRay Report ---
XR chest 1V portable HISTORY: 54 years-old Male sob acute shortness of breath COMPARISON: Chest radiograph 05/10/2020 TECHNIQUE: Portable AP view of the chest FINDINGS: Cardiac silhouette is normal. Mild asymmetric right hilar prominence is unchanged. Possible emphysema . No pneumothorax, pleural effusion or overt pulmonary edema. Subtle asymmetric right lung base opaci ties. Degenerative changes of the shoulders and spine. IMPRESSION: Subtle asymmetric right lung base opacities favor atelectasis. Pneumonitis considered les s likely. ACT 112: Negative or not required by law. The above report was generated using voice recognition software. It may contain grammatical, syntax o r spelling errors. Electronically signed by: Cosme Norris M.D. 06/15/2020 6:55 AM
[2020-06-15] MEDS: SPIRONOLACTONE 25 MG TAB PO SCH (07:36)
[2020-06-15] MEDS: FUROSEMIDE 20 MG TAB PO SCH (07:36)
[2020-06-15] MEDS ORDERED: ALBUMIN 25% 50 ML IV SCH (08:00)
[2020-06-15 08:10] LABS: Folate (Folic Acid) > 24.00 ng/ml (>5.38); Vitamin B12 > 2000 pg/ml (211-911)
--- NOTE | 2020-06-15 09:25 | CT Scan Report ---
ABDOMEN AND PELVIS CT WITHOUT CONTRAST CT DOSE: HISTORY: Generalized abdominal swelling and pain TECHNIQUE: Multiaxial CT images of the abdomen and pelvis were performed without contrast. A dose lo wering technique was utilized adhering to the principles of ALARA. COMPARISON STUDY: Abdomen and pelvis CT 05/25/2020. FINDINGS: Stable 4 mm nodule within the base of the right lower lobe on image 53. No pneumoperitoneum . No pneumatosis. Old, healed left pubic fractures. Old, healed bilateral rib fractures. Severe hepat ic steatosis. Cholecystectomy. Cirrhotic liver with upper abdominal varicosities and a small to moder ate amount of ascites. This has progressed. The spleen remains top normal in size. A few punctate nita cifications along the wall of the main portal vein suggesting a small amount of nonocclusive chronic thrombus. This is also unchanged. No evidence for bowel obstruction. The bladder is mildly distended. Small fat/fluid containing right inguinal hernia. Mild body wall edema. Colonic diverticulosis. No C T evidence for acute diverticulitis. Moderate thickening of the ascending colon and mild thickening o f the transverse colon which has progressed. No retroperitoneal lymphadenopathy. Normal caliber abdom inal aorta. The pancreas, adrenal glands, and kidneys are within normal limits. No hydronephrosis. Sm all fat containing umbilical hernia. IMPRESSION: 1. Cirrhosis with manifestations of portal hypertension. There has been increase in the small to mode rate amount of ascites. 2. Colonic wall thickening as described above which has progressed. This favors portal colopathy. An infectious/inflammatory colitis cannot be excluded. 3. Severe hepatic steatosis. 4. Stable 4 mm nodule within the right lower lobe. 5. Additional findings as described above. ACT 112: Negative or not required by law. Electronically signed by: Villa Clinton M.D. 06/15/2020 9:24 AM
--- NOTE | 2020-06-15 11:12 | Ultrasound Report ---
ULTRASOUND-GUIDED DIAGNOSTIC AND THERAPEUTIC PARACENTESIS: HISTORY: Ascites Procedure: The procedure and its risks, benefits and alternatives were discussed with the patient and written informed consent was obtained. Preliminary ultrasound of the abdomen was performed to determ ine a safe needle entry site. The right lower quadrant was prepped and draped in the usual sterile fashion. 1% Lidocaine was used f or local anesthesia. A paracentesis needle-sheath was inserted into the peritoneal space using ultras ound guidance. The needle was removed and the sheath was connected to tubing and a vacuum suction dev ice. A total of 2.4 liters of yellow ascites was aspirated. The sheath was removed and a sterile dres sing applied. The patient tolerated the procedure well and there were no immediate complications. IMPRESSION: Ultrasound-guided therapeutic paracentesis with aspiration of 2.4 liters of ascites. A total of 1 L w as sent to the laboratory at the request of the referring physician. ACT 112: Negative or not required by law. Electronically signed by: Villa Clinton M.D. 06/15/2020 11:10 AM
[2020-06-15 11:42] LABS: Glucose Peritoneal Fluid 80 mg/dl
[2020-06-15 11:57] LABS: Albumin Peritoneal Fluid < 0.6 g/dl; Amylase Peritoneal Fluid 17 U/L; LDH Peritoneal Fluid 60 U/L; Lipase Peritoneal Fluid 73 U/L; Total Protein Peritoneal Fluid 1.4 g/dl
[2020-06-15 12:00] LABS: Appearance Peritoneal Fluid CLEAR; Basophils, Fluid 0 %; Color Peritoneal Fluid YELLOW; Eosinophils, Fluid 1 %; Lymphocytes, Fluid 30 %; Mono,Macrophage,Mesothelial 51 %; Neutrophils, Fluid 18 %; RBC Peritoneal Fluid (A) < 3000 /uL; WBC Peritoneal Fluid (A) 218 /ul (0-300)
--- NOTE | 2020-06-15 15:31 | Gastrointestinal Consultation ---
Date of Consultation June 15, 2020 Assessment & Plan (1) Abdominal pain: (2) Alcohol abuse: 54 year old male with ETOH cirrhosis, continued ETOH use, ascites, EV, history of medical noncompliance, admitted with AMS, found unresponsive at home, though improved MS since admission and is at baseline. He is s/p 2.4 L tap today with culture pending. MELD = 22 on admission. LFTs somewhat improved, though tbili remains elevated. K improved; HGB and renal fxn stable. Abd is soft, no evidence of GIB. Tremor vs. (asterixis vs withdrawal) noted on exam. He did have a dose of albumin given today with tap. Etiology of AMS unclear; may reflect ongoing ETOH use, possible episode of HE. He is making lots of loose stool; would not start lactulose at present. - Monitor and correct electrolytes. - Continue CIWA withdrawal protocol, folic acid, thiamine. - Continue empiric ceftriaxone pending peritoneal fluid culture - Await final BC results - Continue Lasix 20 mg daily - Aldactone 50 mg daily; it was reinforced with him that he needs to be taking 2 diuretics and he was somewhat understanding of this. His mother helps with pills at home and perhaps she could be educated as well re: his regimen - Consider addition of Xifaxamin 550 mg BID for possible HE, (he is not confused now, but was unresponsive at home), though pt already has trouble keeing track of his meds at baseline and was not even taking Aldatone, so unsure how compliant he would be with another additional med - Daily MELD labs - Once again ETOH cessation is recommended - Gradual taper - Do not stop cold turkey - AA or inpatient rehabilitation also recommended - Low NA diet, less than 2G daily - Less than 2G Tylenol containing products if using - No NSAIDs - Continue to f/u with GI as an outpt (3) Alcoholic cirrhosis of liver with ascites: Supervising Physician Co-Signing Physician Notes I performed a history and physical examination of the patient today, including specifically on physical exam - soft abdomen. I have discussed the patient's management with the advanced practitioner. Please refer to the nurse practitioner's note for the documented findings and plan of care. AMS resolved. Likely related to Alcohol use. Paracentesis today. Diuretics. Start Xifaxan. Follow up in Hepatology office. 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 He is reportedly not taking his Aldactone, but is using Lasix. He was c/o abd distention and discomfort in the ER. He is actively drinking; last drink was 3 beers yesterday. In the ER HGB 12.9, WBC 6.5, plt 83, INR 1.7, NA 134, K 2.6, BUN 6, cr 0.7, tbili 5.6, AST 91, ALT 34, ALP 115, BNP 122, lipase 355, ETOH 292, CT head and CXR with no acute findings, CTAP with moderate ascites, portal HTN. MELD = 22. He was started on empiric ceftriaxone. Today he underwent paracentesis yielding 2.4 L; cx pending. BC neg so far. He is AAOx3 presently. Labs with transaminases, tbili improving. K improved to 3.3, plt 72. HGB 11.9. Bms are regular, approx 3 per day, soft-loose, no black, bloody stool, denies hematemesis, chest pain, dyspnea, gas/bloating, vomiting, nausea, fever, leg edema, dizziness, syncope. EGD 2019:Z-line regular, 38 cm from the incisors.Portal hypertensive gastropathy. Normal examined duodenum Colonoscopy 2019:Non-thrombosed external hemorrhoids found on digital rectal exam.The examined portion of the ileum was normal. Moderate diverticulosis in the sigmoid colon and in the descending colon. Internal hemorrhoids. Allergies Allergy/AdvReac Type Severity Reaction Status Date / Time fentanyl Allergy Intermediate RASH ALL Verified 06/14/20 21:14 OVER BODY Home Medications Home Medications Medication Instructions Recorded Confirmed Type furosemide 20 mg PO QAM 06/14/20 06/14/20 History levothyroxine 25 mcg PO QAM 06/14/20 06/14/20 History spironolactone 50 mg PO DAILY 06/14/20 06/14/20 History Patient History Medical History Alcohol abuse Alcohol dependence Alcoholic cirrhosis of liver without ascites Atrial fibrillation Chronic anxiety Chronic obstructive pulmonary disease Chronic pancreatitis COPD, mild Esophageal varices Hypertension Hypothyroidism Myocardial Infarction On home oxygen therapy Paroxysmal atrial fibrillation Pulmonary embolism Seizure Surgical History H/O colonoscopy History of cholecystectomy "2009" History of esophagogastroduodenoscopy (EGD) "12/15/2014- Small varices. 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 Required: No Beliefs That Will Affect Care: None marital status: Current Living Situation: Parent Current Living Situation Comment: parents Feels Safe at Home: Yes Review of Systems Review of Systems: All systems reviewed & are unremarkable except as noted in HPI & below Constitutional: no fever, no chills, no fatigue and no weight loss Eyes: no eye pain and no worsening vision Ear, Nose, Mouth, Throat: no tinnitus, no dizziness, no nasal discharge and no epistaxis Respiratory: no cough, no dyspnea, no dyspnea on exertion and no wheezing Cardiovascular: no chest pain, no orthopnea, no palpitations and no edema Gastrointestinal: as per Subjective / HPI Musculoskeletal: no stiffness and no myalgia Neurologic: no localized weakness, no paralysis, no tremor(s) and no headache(s) Endocrine: no polydipsia and no polyuria Hematologic / Lymphatic: no easy bleeding and no night sweats Physical Exam Constitutional: no acute distress Chronically ill appearing Respiratory: normal respiratory effort, lungs clear to auscultation Cardiovascular: RRR, no murmur, no edema Gastrointestinal (Abdomen): Inspection/Auscultation: abdomen normal to inspection; abdomen not distended Percussion/Palpation: abdomen soft; abdomen nontender and no guarding Skin: + jaundice Psychiatric: A+Ox3, euthymic affect tremor vs asterixis noted Results & Data ([facility]) Vital Signs (Past 12 Hours) Vital Signs Temp Pulse Resp BP BP Pulse Ox 06/15/20 15:25 36.9 C 95 H 20 113/72 92 06/15/20 11:00 36.3 C L 83 18 113/76 90 06/15/20 07:00 36.6 C 77 18 99/65 L 96 06/15/20 03:50 36.6 C 87 19 106/71 97 Laboratory Results 06/15/20 06/15/20 06/15/20 Range/Units 10:45 10:45 10:45 WBC (4.8-10.8) K/uL RBC (4.7-6.1) M/uL Hgb (14.0-18.0) g/dL Hct (42-52) % MCV (80-100) fL MCH (25-34) pg MCHC (32-36) g/dL RDW Std Deviation (36.4-46.3) fL RDW Coeff of Hernandez (11.5-14.5) % Plt Count (130-400) K/uL MPV (7.4-10.4) fL Immature Gran % (Auto) % Neut % (Auto) % Lymph % (Auto) % [place] % (Auto) % Eos % (Auto) % Baso % (Auto) % Neut # (Auto) (1.4-6.5) K/uL Lymph # (Auto) (1.2-3.4) K/uL [place] # (Auto) (0.11-0.59) K/uL Eos # (Auto) (0-0.5) K/uL Baso # (Auto) (0-0.2) K/uL Immature Gran # (Auto) (0.00-0.02) K/uL Platelet Estimate (Normal) PT (9.0-12.0) Seconds INR (0.9-1.1) APTT (21.0-31.0) Seconds PTT Ratio Sodium (136-145) mmol/L Potassium (3.5-5.1) mmol/L Chloride (98-107) mmol/L Carbon Dioxide (21-32) mmol/L Anion Gap (3-11) BUN (7-18) mg/dl Creatinine (0.6-1.4) mg/dl Est Cr Clr Drug Dosing ml/min Est GFR ( Amer) Est GFR (Non-Af Amer) BUN/Creatinine Ratio (10-20) Glucose (70-99) mg/dl Calcium (8.5-10.1) mg/dl Phosphorus (2.5-4.9) mg/dl Magnesium (1.8-2.4) mg/dl Total Bilirubin (0.2-1) mg/dl Direct Bilirubin (0-0.2) mg/dl AST (15-37) U/L ALT (12-78) U/L Alkaline Phosphatase (45-117) U/L Troponin I (0-0.045) ng/ml NT-Pro-B Natriuret Pep (0-900) pg/ml Total Protein (6.4-8.2) gm/dl Albumin (3.4-5.0) gm/dl Globulin (2.5-4.0) gm/dl Albumin/Globulin Ratio (0.9-2) Lipase (73-393) U/L Vitamin B12 (211-911) pg/ml Folate (>5.38) ng/ml Urine Color Urine Appearance (Clear) Urine pH (4.5-7.5) Ur Specific [place] (1.000-1.030) Urine Protein (Negative) Urine Glucose (UA) (Negative) Urine Ketones (Negative) Urine Blood (Negative) Urine Nitrite (Negative) Urine Bilirubin (Negative) Urine Urobilinogen (Negative) Ur Leukocyte Esterase (Negative) Fluid Neutrophils % % Fluid Lymphocytes % % Fluid Eosinophils % % Fluid Basophils % % Fluid [place]ro/[place] % % Peritoneal Color Peritoneal Appearance Peritoneal WBC (0-300) /ul Peritoneal RBC /uL Peritoneal Tot Protein Cancelled g/dl Peritoneal Albumin Peritoneal LDH Cancelled U/L Peritoneal Glucose mg/dl Peritoneal Amylase U/L Peritoneal Lipase Cancelled U/L Ethyl Alcohol mg/dL (0-3) mg/dl 06/15/20 06/15/20 06/15/20 Range/Units 10:45 10:45 10:45 WBC (4.8-10.8) K/uL RBC (4.7-6.1) M/uL Hgb (14.0-18.0) g/dL Hct (42-52) % MCV (80-100) fL MCH (25-34) pg MCHC (32-36) g/dL RDW Std Deviation (36.4-46.3) fL RDW Coeff of Hernandez (11.5-14.5) % Plt Count (130-400) K/uL MPV (7.4-10.4) fL Immature Gran % (Auto) % Neut % (Auto) % Lymph % (Auto) % [place] % (Auto) % Eos % (Auto) % Baso % (Auto) % Neut # (Auto) (1.4-6.5) K/uL Lymph # (Auto) (1.2-3.4) K/uL [place] # (Auto) (0.11-0.59) K/uL Eos # (Auto) (0-0.5) K/uL Baso # (Auto) (0-0.2) K/uL Immature Gran # (Auto) (0.00-0.02) K/uL Platelet Estimate (Normal) PT (9.0-12.0) Seconds INR (0.9-1.1) APTT (21.0-31.0) Seconds PTT Ratio Sodium (136-145) mmol/L Potassium (3.5-5.1) mmol/L Chloride (98-107) mmol/L Carbon Dioxide (21-32) mmol/L Anion Gap (3-11) BUN (7-18) mg/dl Creatinine (0.6-1.4) mg/dl Est Cr Clr Drug Dosing ml/min Est GFR ( Amer) Est GFR (Non-Af Amer) BUN/Creatinine Ratio (10-20) Glucose (70-99) mg/dl Calcium (8.5-10.1) mg/dl Phosphorus (2.5-4.9) mg/dl Magnesium (1.8-2.4) mg/dl Total Bilirubin (0.2-1) mg/dl Direct Bilirubin (0-0.2) mg/dl AST (15-37) U/L ALT (12-78) U/L Alkaline Phosphatase (45-117) U/L Troponin I (0-0.045) ng/ml NT-Pro-B Natriuret Pep (0-900) pg/ml Total Protein (6.4-8.2) gm/dl Albumin (3.4-5.0) gm/dl Globulin (2.5-4.0) gm/dl Albumin/Globulin Ratio (0.9-2) Lipase (73-393) U/L Vitamin B12 (211-911) pg/ml Folate (>5.38) ng/ml Urine Color Urine Appearance (Clear) Urine pH (4.5-7.5) Ur Specific [place] (1.000-1.030) Urine Protein (Negative) Urine Glucose (UA) (Negative) Urine Ketones (Negative) Urine Blood (Negative) Urine Nitrite (Negative) Urine Bilirubin (Negative) Urine Urobilinogen (Negative) Ur Leukocyte Esterase (Negative) Fluid Neutrophils % 18 % Fluid Lymphocytes % 30 % Fluid Eosinophils % 1 % Fluid Basophils % 0 % Fluid [place]/Macro/[place] % 51 % Peritoneal Color YELLOW Peritoneal Appearance CLEAR Peritoneal WBC 218 (0-300) /ul Peritoneal RBC < 3000 /uL Peritoneal Tot Protein 1.4 g/dl Peritoneal Albumin < 0.6 Peritoneal LDH 60 U/L Peritoneal Glucose Cancelled 80 mg/dl Peritoneal Amylase 17 U/L Peritoneal Lipase 73 U/L Ethyl Alcohol mg/dL (0-3) mg/dl 06/15/20 06/15/20 06/15/20 Range/Units 10:45 04:45 04:45 WBC 4.79 L (4.8-10.8) K/uL RBC 3.06 L (4.7-6.1) M/uL Hgb 11.9 L (14.0-18.0) g/dL Hct 33.5 L (42-52) % MCV 109.5 H (80-100) fL MCH 38.9 H (25-34) pg MCHC 35.5 (32-36) g/dL RDW Std Deviation 60.7 H (36.4-46.3) fL RDW Coeff of Hernandez 15.3 H (11.5-14.5) % Plt Count 72 L (130-400) K/uL MPV 11.8 H (7.4-10.4) fL Immature Gran % (Auto) 0.2 % Neut % (Auto) 46.6 % Lymph % (Auto) 37.2 % [place] % (Auto) 12.5 % Eos % (Auto) 2.5 % Baso % (Auto) 1.0 % Neut # (Auto) 2.23 (1.4-6.5) K/uL Lymph # (Auto) 1.78 (1.2-3.4) K/uL [place] # (Auto) 0.60 H (0.11-0.59) K/uL Eos # (Auto) 0.12 (0-0.5) K/uL Baso # (Auto) 0.05 (0-0.2) K/uL Immature Gran # (Auto) 0.01 (0.00-0.02) K/uL Platelet Estimate (Normal) PT (9.0-12.0) Seconds INR (0.9-1.1) APTT (21.0-31.0) Seconds PTT Ratio Sodium (136-145) mmol/L Potassium (3.5-5.1) mmol/L Chloride (98-107) mmol/L Carbon Dioxide (21-32) mmol/L Anion Gap (3-11) BUN (7-18) mg/dl Creatinine (0.6-1.4) mg/dl Est Cr Clr Drug Dosing ml/min Est GFR ( Amer) Est GFR (Non-Af Amer) BUN/Creatinine Ratio (10-20) Glucose (70-99) mg/dl Calcium (8.5-10.1) mg/dl Phosphorus (2.5-4.9) mg/dl Magnesium (1.8-2.4) mg/dl Total Bilirubin (0.2-1) mg/dl Direct Bilirubin (0-0.2) mg/dl AST (15-37) U/L ALT (12-78) U/L Alkaline Phosphatase (45-117) U/L Troponin I (0-0.045) ng/ml NT-Pro-B Natriuret Pep (0-900) pg/ml Total Protein (6.4-8.2) gm/dl Albumin (3.4-5.0) gm/dl Globulin (2.5-4.0) gm/dl Albumin/Globulin Ratio (0.9-2) Lipase (73-393) U/L Vitamin B12 > 2000 H (211-911) pg/ml Folate > 24.00 (>5.38) ng/ml Urine Color Urine Appearance (Clear) Urine pH (4.5-7.5) Ur Specific [place] (1.000-1.030) Urine Protein (Negative) Urine Glucose (UA) (Negative) Urine Ketones (Negative) Urine Blood (Negative) Urine Nitrite (Negative) Urine Bilirubin (Negative) Urine Urobilinogen (Negative) Ur Leukocyte Esterase (Negative) Fluid Neutrophils % % Fluid Lymphocytes % % Fluid Eosinophils % % Fluid Basophils % % Fluid [place] % % Peritoneal Color Peritoneal Appearance Peritoneal WBC (0-300) /ul Peritoneal RBC /uL Peritoneal Tot Protein g/dl Peritoneal Albumin Cancelled Peritoneal LDH U/L Peritoneal Glucose mg/dl Peritoneal Amylase U/L Peritoneal Lipase U/L Ethyl Alcohol mg/dL (0-3) mg/dl 06/15/20 06/14/20 06/14/20 Range/Units 04:45 20:23 20:00 WBC (4.8-10.8) K/uL RBC (4.7-6.1) M/uL Hgb (14.0-18.0) g/dL Hct (42-52) % MCV (80-100) fL MCH (25-34) pg MCHC (32-36) g/dL RDW Std Deviation (36.4-46.3) fL RDW Coeff of Hernandez (11.5-14.5) % Plt Count (130-400) K/uL MPV (7.4-10.4) fL Immature Gran % (Auto) % Neut % (Auto) % Lymph % (Auto) % [place] % (Auto) % Eos % (Auto) % Baso % (Auto) % Neut # (Auto) (1.4-6.5) K/uL Lymph # (Auto) (1.2-3.4) K/uL [place] # (Auto) (0.11-0.59) K/uL Eos # (Auto) (0-0.5) K/uL Baso # (Auto) (0-0.2) K/uL Immature Gran # (Auto) (0.00-0.02) K/uL Platelet Estimate (Normal) PT 17.7 H (9.0-12.0) Seconds INR 1.7 H (0.9-1.1) APTT 35.0 H (21.0-31.0) Seconds PTT Ratio 1.3 Sodium 141 D (136-145) mmol/L Potassium 3.3 L D (3.5-5.1) mmol/L Chloride 107 (98-107) mmol/L Carbon Dioxide 27 (21-32) mmol/L Anion Gap 7.0 (3-11) BUN 5 L (7-18) mg/dl Creatinine 0.56 L (0.6-1.4) mg/dl Est Cr Clr Drug Dosing 129.7 ml/min Est GFR ( Amer) 135.0 Est GFR (Non-Af Amer) 116.4 BUN/Creatinine Ratio 9.7 L (10-20) Glucose 75 (70-99) mg/dl Calcium 7.0 L (8.5-10.1) mg/dl Phosphorus 3.0 (2.5-4.9) mg/dl Magnesium 1.9 (1.8-2.4) mg/dl Total Bilirubin 4.7 H (0.2-1) mg/dl Direct Bilirubin 1.7 H (0-0.2) mg/dl AST 76 H (15-37) U/L ALT 27 (12-78) U/L Alkaline Phosphatase 88 (45-117) U/L Troponin I 0.026 (0-0.045) ng/ml NT-Pro-B Natriuret Pep (0-900) pg/ml Total Protein 6.2 L (6.4-8.2) gm/dl Albumin 1.4 L (3.4-5.0) gm/dl Globulin (2.5-4.0) gm/dl Albumin/Globulin Ratio (0.9-2) Lipase (73-393) U/L Vitamin B12 (211-911) pg/ml Folate (>5.38) ng/ml Urine Color Yellow Urine Appearance Clear (Clear) Urine pH 6.5 (4.5-7.5) Ur Specific [place] 1.004 (1.000-1.030) Urine Protein Negative (Negative) Urine Glucose (UA) Negative (Negative) Urine Ketones Negative (Negative) Urine Blood Negative (Negative) Urine Nitrite Negative (Negative) Urine Bilirubin Negative (Negative) Urine Urobilinogen Negative (Negative) Ur Leukocyte Esterase Negative (Negative) Fluid Neutrophils % % Fluid Lymphocytes % % Fluid Eosinophils % % Fluid Basophils % % Fluid [place] % % Peritoneal Color Peritoneal Appearance Peritoneal WBC (0-300) /ul Peritoneal RBC /uL Peritoneal Tot Protein g/dl Peritoneal Albumin Peritoneal LDH U/L Peritoneal Glucose mg/dl Peritoneal Amylase U/L Peritoneal Lipase U/L Ethyl Alcohol mg/dL (0-3) mg/dl 06/14/20 06/14/20 06/14/20 Range/Units 20:00 20:00 20:00 WBC 6.51 (4.8-10.8) K/uL RBC 3.33 L (4.7-6.1) M/uL Hgb 12.9 L (14.0-18.0) g/dL Hct 36.4 L (42-52) % MCV 109.3 H (80-100) fL MCH 38.7 H (25-34) pg MCHC 35.4 (32-36) g/dL RDW Std Deviation 60.1 H (36.4-46.3) fL RDW Coeff of Hernandez 15.1 H (11.5-14.5) % Plt Count 83 L (130-400) K/uL MPV 11.6 H (7.4-10.4) fL Immature Gran % (Auto) 0.3 % Neut % (Auto) 42.8 % Lymph % (Auto) 40.6 % [place] % (Auto) 10.8 % Eos % (Auto) 4.3 % Baso % (Auto) 1.2 % Neut # (Auto) 2.79 (1.4-6.5) K/uL Lymph # (Auto) 2.64 (1.2-3.4) K/uL [place] # (Auto) 0.70 H (0.11-0.59) K/uL Eos # (Auto) 0.28 (0-0.5) K/uL Baso # (Auto) 0.08 (0-0.2) K/uL Immature Gran # (Auto) 0.02 (0.00-0.02) K/uL Platelet Estimate Decreased L (Normal) PT (9.0-12.0) Seconds INR (0.9-1.1) APTT (21.0-31.0) Seconds PTT Ratio Sodium 134 L (136-145) mmol/L Potassium 2.6 L (3.5-5.1) mmol/L Chloride 97 L (98-107) mmol/L Carbon Dioxide 26 (21-32) mmol/L Anion Gap 12.0 H (3-11) BUN 6 L (7-18) mg/dl Creatinine 0.76 (0.6-1.4) mg/dl Est Cr Clr Drug Dosing 95.5 ml/min Est GFR ( Amer) 119.0 Est GFR (Non-Af Amer) 102.7 BUN/Creatinine Ratio 8.1 L (10-20) Glucose 87 (70-99) mg/dl Calcium 8.1 L (8.5-10.1) mg/dl Phosphorus (2.5-4.9) mg/dl Magnesium 1.5 L (1.8-2.4) mg/dl Total Bilirubin 5.6 H (0.2-1) mg/dl Direct Bilirubin (0-0.2) mg/dl AST 91 H (15-37) U/L ALT 34 (12-78) U/L Alkaline Phosphatase 115 (45-117) U/L Troponin I 0.017 (0-0.045) ng/ml NT-Pro-B Natriuret Pep 122 (0-900) pg/ml Total Protein 7.4 (6.4-8.2) gm/dl Albumin 1.7 L (3.4-5.0) gm/dl Globulin 5.7 H (2.5-4.0) gm/dl Albumin/Globulin Ratio 0.3 L (0.9-2) Lipase 355 (73-393) U/L Vitamin B12 (211-911) pg/ml Folate (>5.38) ng/ml Urine Color Urine Appearance (Clear) Urine pH (4.5-7.5) Ur Specific [place] (1.000-1.030) Urine Protein (Negative) Urine Glucose (UA) (Negative) Urine Ketones (Negative) Urine Blood (Negative) Urine Nitrite (Negative) Urine Bilirubin (Negative) Urine Urobilinogen (Negative) Ur Leukocyte Esterase (Negative) Fluid Neutrophils % % Fluid Lymphocytes % % Fluid Eosinophils % % Fluid Basophils % % Fluid [place] % % Peritoneal Color Peritoneal Appearance Peritoneal WBC (0-300) /ul Peritoneal RBC /uL Peritoneal Tot Protein g/dl Peritoneal Albumin Peritoneal LDH U/L Peritoneal Glucose mg/dl Peritoneal Amylase U/L Peritoneal Lipase U/L Ethyl Alcohol mg/dL 292.7 H (0-3) mg/dl Diagnostic Findings CT head: No acute intracranial abnormality. CXR: Subtle asymmetric right lung base opacities favor atelectasis. Pneumonitis considered less likely.CXR (1) Abdominal pain Abdominal location: generalized Qualified Code(s): R10.84 - Generalized abdominal pain
--- NOTE | 2020-06-15 18:06 | Electrocardiogram Report ---
Test Reason : Blood Pressure : / mmHG Vent. Rate : 091 BPM Atrial Rate : 091 BPM P-R Int : 136 ms QRS Dur : 096 ms QT Int : 406 ms P-R-T Axes : 072 074 040 degrees QTc Int : 499 ms Normal sinus rhythm Nonspecific ST abnormality Prolonged QT Abnormal ECG When compared with ECG of 10-MAY-2020 16:40, No significant change was found Confirmed by Clement Ceballos ([id number]) on 06/15/2020 6:06:25 PM Referred By: REFERRED SELF Confirmed By:Brady Ceballos
--- NOTE | 2020-06-15 18:09 | Electrocardiogram Report ---
Test Reason : Blood Pressure : / mmHG Vent. Rate : 078 BPM Atrial Rate : 078 BPM P-R Int : 146 ms QRS Dur : 092 ms QT Int : 436 ms P-R-T Axes : 064 063 057 degrees QTc Int : 497 ms Normal sinus rhythm Prolonged QT Abnormal ECG When compared with ECG of 14-JUN-2020 19:53, (unconfirmed) No significant change was found Confirmed by Clement Ceballos ([id number]) on 06/15/2020 6:09:27 PM Referred By: REFERRED SELF Confirmed By:Brady Ceballos
--- NOTE | 2020-06-15 18:35 | Hospitalist Progress Note ---
Date of Service June 15, 2020 Assessment & Plan (1) Abdominal pain: 1) Abdominal pain: (2) Alcohol abuse/Alchoholic Cirrhosis /liver disease (3)Altered mental status -metabolic encephalopathy due to alcohol intoxication , ETOH abuse /hepatic encephalopathy -non compliance with med- GI eval appreciated , Lactulose not ordered as pt already having multiple liquid BM rule out infection no evidence of GI bleed 54 year old male with ETOH cirrhosis, continued ETOH use, ascites, history of medical noncompliance, admitted with AMS, found unresponsive at home, though improved MS since admission and is at baseline. He is s/p 2.4 L paracenthesis tap today with culture pending. LFTs somewhat improved, though tbili remains elevated. (4) ETOH withdrawal : blood alcohol level > 200 on admission 'on alcohol withdrawal protocol . - cont Monitor and correct electrolytes. - Continue CIWA withdrawal protocol, folic acid, thiamine. , pt will need referral for ALcohol rehab when clinically better ' counselled for complete abstinence from Alcohol , -he already has advanced alcoholic liver disease with poor prognosis , continued alcohol intake will reduce his life expectancy drastically Pt nodded head ,not sure how much he understood or willing to comply (5) Alcoholic cirrhosis of liver with ascites:s/p paracenthesis of 2.4 L cont in Lasix 20 mg daily /Aldactone 50 mg daily -on IV recephine pending peritoneal fluid culture -GI recommends addition of Xifaxamin 550 mg BID for Hepatic Encephalopathy -cont low salt diet , no NSAID out pt follow up with GI code status : full code Disposition : cont to monitor in Tele monitor for DT /severe ETOH withdrawal Social service consulted for discharge planning Admission and Anticipated Discharge Date Admission Date: June 14, 2020 Subjective pt evaluated at bedside remains somewhat confused , able to answer simple questions acknowledges that he is in hospital not aware of year to day , does not remember how he got admitted denies of any abdominal pain , no nausea /vomiting fine tremors noted on hands no cough , no SOB , no fever or chills Review of Systems Review of Systems: All systems reviewed & are unremarkable except as noted in HPI & below Physical Exam Constitutional: WD/WN, vitals as above + ill appearing Eyes: + scleral abnormality (icteric sclera) ENMT: external ear and nose normal, oropharynx normal Neck: trachea midline, no thyromegaly Respiratory: normal respiratory effort Auscultation: + diminished lung sounds, + crackles (at base) and + rales no cough or respiratory distress Cardiovascular: Rate/Rhythm: regular rate and regular rhythm Extremities: + edema Gastrointestinal (Abdomen): Percussion/Palpation: abdomen soft and + ascites Neurologic: PERRL, EOMI, accommodation nl, no face palsy, no dysarthria Motor/Sensory: + tremor Psychiatric: Affect: + flat affect Insight: + limited insight awake , oriented to person only Results & Data Results & Data ([facility]) Vital Signs (Past 12 Hours) Vital Signs Temp Pulse Pulse Resp BP Pulse Ox 06/15/20 17:43 95 H 06/15/20 15:25 36.9 C 95 H 20 113/72 92 06/15/20 11:00 36.3 C L 83 18 113/76 90 06/15/20 07:00 36.6 C 77 18 99/65 L 96 (1) Abdominal pain Abdominal location: generalized Qualified Code(s): R10.84 - Generalized abdominal pain
[2020-06-16] MEDS: GABAPENTIN 600 MG TAB PO SCH ×2 (05:32→15:22)
[2020-06-16] MEDS: LEVOTHYROXINE SODIUM 25 MCG TABLET PO SCH (05:32)
[2020-06-16 05:52] LABS: Hematocrit (blood only) 33.2 % (42-52); Hemoglobin 11.5 g/dL (14.0-18.0); Mean Corpuscular Hemoglobin 38.3 pg (25-34); Mean Corpuscular Hgb Conc 34.6 g/dL (32-36); Mean Corpuscular Volume 110.7 fL (80-100); Nucleated RBC # (auto) 0.04 K/uL (0-0); Nucleated RBC % (auto) 0.7 %; RDW Standard Deviation 60.9 fL (36.4-46.3)
[2020-06-16 05:57] LABS: Mean Platelet Volume 11.2 fL (7.4-10.4); Platelet Count 67 K/uL (130-400)
[2020-06-16 06:03] LABS: INR 1.9 (0.9-1.1); Prothrombin Time 19.1 Seconds (9.0-12.0)
[2020-06-16 06:25] LABS: Albumin Level 1.5 gm/dl (3.4-5.0); BUN Creatinine Ratio 9.9 (10-20); Creatinine Clr Calc Pharmacy 99.5 ml/min; Est GFR (Non-African American) 104.4; Potassium 3.4 mmol/L (3.5-5.1)
[2020-06-16 06:30] LABS: Albumin Globulin Ratio 0.3 (0.9-2); Bilirubin,Total 5.1 mg/dl (0.2-1); Globulin 4.7 gm/dl (2.5-4.0); Total Protein 6.2 gm/dl (6.4-8.2)
[2020-06-16] MEDS: SPIRONOLACTONE 25 MG TAB PO SCH (07:58)
[2020-06-16] MEDS: FUROSEMIDE 20 MG TAB PO SCH (07:58)
[2020-06-16] MEDS: FOLIC ACID 1 MG in SYRINGE 9.8 ML IV SCH (07:58)
[2020-06-16] MEDS: THIAMINE HCL 100 MG in SYRINGE 9 ML IV SCH (07:59)
--- NOTE | 2020-06-16 08:23 | Gastroenterology Progress Note ---
Date of Service June 16, 2020 Assessment & Plan (1) Alcohol abuse: 54 year old male with ETOH cirrhosis, continued ETOH use, ascites, EV, history of medical noncompliance, admitted with AMS, found unresponsive at home, though improved MS since admission and is at baseline. He is s/p 2.4 L tap yesterday, c/w portal HTN, not c/w SBP, final culture pending. MELD = 22 on admission, 21 today. LFTs somewhat improved, though tbili remains elevated. K improved; HGB and renal fxn stable. Abd is soft, no evidence of GIB. He is HD stable. Etiology of presenting AMS unclear; may reflect ongoing ETOH use, possible episode of HE, which has resolved. - Continue CIWA withdrawal protocol, folic acid, thiamine. - Continue empiric ceftriaxone pending peritoneal fluid culture - Continue Lasix 20 mg daily - Aldactone 50 mg daily; it was reinforced with him that he needs to be taking 2 diuretics and he was somewhat understanding of this. His mother helps with pills at home and perhaps she could be educated as well re: his regimen - Consider addition of Xifaxan 550 mg BID for possible HE, (he is not confused now, but was unresponsive at home), though pt already has trouble keeping track of his meds at baseline and was not even taking Aldactone, so unsure how compliant he would be with another additional med - Daily MELD labs when hospitalized - Once again ETOH cessation is recommended - Gradual taper - Do not stop cold turkey - AA or inpatient rehabilitation also recommended - Low NA diet, less than 2G daily - Less than 2G Tylenol containing products if using - No NSAIDs - Continue to f/u with GI as an outpt - GI will sign off, please call with questions Admission and Anticipated Discharge Date Admission Date: June 14, 2020 Supervising Physician Co-Signing Physician Notes I performed a history and physical examination of the patient today, including specifically on physical exam - soft abdomen. I have discussed the patient's management with the advanced practitioner. Please refer to the nurse practitioner's note for the documented findings and plan of care. No SBP on tap. Diuretics. Follow up as OP. Recall GI if needed. Subjective Pt seen and examined; doing well overnight. No complaints. Tolerated breakfas t. Denies abd pain, n/v. Tap consistent with portal HTN, not c/w SBP, final cx pending. Physical Exam Constitutional: no acute distress Respiratory: normal respiratory effort Gastrointestinal (Abdomen): Inspection/Auscultation: abdomen normal to inspection; abdomen not distended Percussion/Palpation: abdomen soft; abdomen nontender and no guarding Psychiatric: A+Ox3, euthymic affect Results & Data ([facility]) Vital Signs (Past 12 Hours) Vital Signs Temp Pulse Pulse Resp BP Pulse Ox 06/16/20 07:21 78 06/16/20 07:00 36.8 C 75 18 120/74 97 06/16/20 04:19 37.1 C 87 19 102/64 95 06/16/20 00:10 87 06/15/20 22:37 36.9 C 83 18 111/67 91 Laboratory Results 06/16/20 06/16/20 06/16/20 Range/Units 05:41 05:41 05:41 WBC 6.10 (4.8-10.8) K/uL RBC 3.00 L (4.7-6.1) M/uL Hgb 11.5 L (14.0-18.0) g/dL Hct 33.2 L (42-52) % MCV 110.7 H (80-100) fL MCH 38.3 H (25-34) pg MCHC 34.6 (32-36) g/dL RDW Std Deviation 60.9 H (36.4-46.3) fL RDW Coeff of Hernandez 15.0 H (11.5-14.5) % Plt Count 67 L (130-400) K/uL MPV 11.2 H (7.4-10.4) fL Absolute Nucleated RBC 0.04 H (0-0) K/uL Nucleated RBC % (auto) 0.7 % PT 19.1 H (9.0-12.0) Seconds INR 1.9 H (0.9-1.1) Sodium 137 (136-145) mmol/L Potassium 3.4 L (3.5-5.1) mmol/L Chloride 105 (98-107) mmol/L Carbon Dioxide 26 (21-32) mmol/L Anion Gap 6.0 (3-11) BUN 7 (7-18) mg/dl Creatinine 0.73 (0.6-1.4) mg/dl Est Cr Clr Drug Dosing 99.5 ml/min Est GFR ( Amer) 121.0 Est GFR (Non-Af Amer) 104.4 BUN/Creatinine Ratio 9.9 L (10-20) Glucose 85 (70-99) mg/dl Calcium 7.0 L (8.5-10.1) mg/dl Total Bilirubin 5.1 H (0.2-1) mg/dl AST 80 H (15-37) U/L ALT 28 (12-78) U/L Alkaline Phosphatase 83 (45-117) U/L Total Protein 6.2 L (6.4-8.2) gm/dl Albumin 1.5 L (3.4-5.0) gm/dl Globulin 4.7 H (2.5-4.0) gm/dl Albumin/Globulin Ratio 0.3 L (0.9-2) Fluid Neutrophils % % Fluid Lymphocytes % % Fluid Eosinophils % % Fluid Basophils % % Fluid Meso/Macro/Benzie % % Peritoneal Color Peritoneal Appearance Peritoneal WBC (0-300) /ul Peritoneal RBC /uL Peritoneal Tot Protein g/dl Peritoneal Albumin Peritoneal LDH U/L Peritoneal Glucose mg/dl Peritoneal Amylase U/L Peritoneal Lipase U/L 06/15/20 06/15/20 06/15/20 Range/Units 10:45 10:45 10:45 WBC (4.8-10.8) K/uL RBC (4.7-6.1) M/uL Hgb (14.0-18.0) g/dL Hct (42-52) % MCV (80-100) fL MCH (25-34) pg MCHC (32-36) g/dL RDW Std Deviation (36.4-46.3) fL RDW Coeff of Hernandez (11.5-14.5) % Plt Count (130-400) K/uL MPV (7.4-10.4) fL Absolute Nucleated RBC (0-0) K/uL Nucleated RBC % (auto) % PT (9.0-12.0) Seconds INR (0.9-1.1) Sodium (136-145) mmol/L Potassium (3.5-5.1) mmol/L Chloride (98-107) mmol/L Carbon Dioxide (21-32) mmol/L Anion Gap (3-11) BUN (7-18) mg/dl Creatinine (0.6-1.4) mg/dl Est Cr Clr Drug Dosing ml/min Est GFR ( Amer) Est GFR (Non-Af Amer) BUN/Creatinine Ratio (10-20) Glucose (70-99) mg/dl Calcium (8.5-10.1) mg/dl Total Bilirubin (0.2-1) mg/dl AST (15-37) U/L ALT (12-78) U/L Alkaline Phosphatase (45-117) U/L Total Protein (6.4-8.2) gm/dl Albumin (3.4-5.0) gm/dl Globulin (2.5-4.0) gm/dl Albumin/Globulin Ratio (0.9-2) Fluid Neutrophils % % Fluid Lymphocytes % % Fluid Eosinophils % % Fluid Basophils % % Fluid Meso/Macro/Benzie % % Peritoneal Color Peritoneal Appearance Peritoneal WBC (0-300) /ul Peritoneal RBC /uL Peritoneal Tot Protein Cancelled g/dl Peritoneal Albumin Peritoneal LDH Cancelled U/L Peritoneal Glucose mg/dl Peritoneal Amylase U/L Peritoneal Lipase Cancelled U/L 06/15/20 06/15/20 06/15/20 Range/Units 10:45 10:45 10:45 WBC (4.8-10.8) K/uL RBC (4.7-6.1) M/uL Hgb (14.0-18.0) g/dL Hct (42-52) % MCV (80-100) fL MCH (25-34) pg MCHC (32-36) g/dL RDW Std Deviation (36.4-46.3) fL RDW Coeff of Hernandez (11.5-14.5) % Plt Count (130-400) K/uL MPV (7.4-10.4) fL Absolute Nucleated RBC (0-0) K/uL Nucleated RBC % (auto) % PT (9.0-12.0) Seconds INR (0.9-1.1) Sodium (136-145) mmol/L Potassium (3.5-5.1) mmol/L Chloride (98-107) mmol/L Carbon Dioxide (21-32) mmol/L Anion Gap (3-11) BUN (7-18) mg/dl Creatinine (0.6-1.4) mg/dl Est Cr Clr Drug Dosing ml/min Est GFR ( Amer) Est GFR (Non-Af Amer) BUN/Creatinine Ratio (10-20) Glucose (70-99) mg/dl Calcium (8.5-10.1) mg/dl Total Bilirubin (0.2-1) mg/dl AST (15-37) U/L ALT (12-78) U/L Alkaline Phosphatase (45-117) U/L Total Protein (6.4-8.2) gm/dl Albumin (3.4-5.0) gm/dl Globulin (2.5-4.0) gm/dl Albumin/Globulin Ratio (0.9-2) Fluid Neutrophils % 18 % Fluid Lymphocytes % 30 % Fluid Eosinophils % 1 % Fluid Basophils % 0 % Fluid Meso/Macro/Benzie % 51 % Peritoneal Color YELLOW Peritoneal Appearance CLEAR Peritoneal WBC 218 (0-300) /ul Peritoneal RBC < 3000 /uL Peritoneal Tot Protein 1.4 g/dl Peritoneal Albumin < 0.6 Peritoneal LDH 60 U/L Peritoneal Glucose Cancelled 80 mg/dl Peritoneal Amylase 17 U/L Peritoneal Lipase 73 U/L 06/15/20 Range/Units 10:45 WBC (4.8-10.8) K/uL RBC (4.7-6.1) M/uL Hgb (14.0-18.0) g/dL Hct (42-52) % MCV (80-100) fL MCH (25-34) pg MCHC (32-36) g/dL RDW Std Deviation (36.4-46.3) fL RDW Coeff of Hernandez (11.5-14.5) % Plt Count (130-400) K/uL MPV (7.4-10.4) fL Absolute Nucleated RBC (0-0) K/uL Nucleated RBC % (auto) % PT (9.0-12.0) Seconds INR (0.9-1.1) Sodium (136-145) mmol/L Potassium (3.5-5.1) mmol/L Chloride (98-107) mmol/L Carbon Dioxide (21-32) mmol/L Anion Gap (3-11) BUN (7-18) mg/dl Creatinine (0.6-1.4) mg/dl Est Cr Clr Drug Dosing ml/min Est GFR ( Amer) Est GFR (Non-Af Amer) BUN/Creatinine Ratio (10-20) Glucose (70-99) mg/dl Calcium (8.5-10.1) mg/dl Total Bilirubin (0.2-1) mg/dl AST (15-37) U/L ALT (12-78) U/L Alkaline Phosphatase (45-117) U/L Total Protein (6.4-8.2) gm/dl Albumin (3.4-5.0) gm/dl Globulin (2.5-4.0) gm/dl Albumin/Globulin Ratio (0.9-2) Fluid Neutrophils % % Fluid Lymphocytes % % Fluid Eosinophils % % Fluid Basophils % % Fluid Meso/Macro/Benzie % % Peritoneal Color Peritoneal Appearance Peritoneal WBC (0-300) /ul Peritoneal RBC /uL Peritoneal Tot Protein g/dl Peritoneal Albumin Cancelled Peritoneal LDH U/L Peritoneal Glucose mg/dl Peritoneal Amylase U/L Peritoneal Lipase U/L
[2020-06-16] MEDS ORDERED: POTASSIUM CHLORIDE 20 MEQ TABCR PO STA (09:20)
--- NOTE | 2020-06-16 16:13 | Discharge Summary ---
Date of Service June 16, 2020 Admission HPI Per Admitting Provider HISTORY OF PRESENT ILLNESS: This is a 54-year-old male with past medical history significant for alcoholic liver cirrhosis with ascites, oesophageal varices, portal hypertension, COPD, ongoing alcohol abuse, ongoing tobacco abuse, history of chronic pancreatitis, history of thrombocytopenia due to hypersplenism, history of paroxysmal atrial fibrillation, pulmonary hypertension, history of pulmonary embolus, portal vein thrombosis, not on anticoagulation, history of chronic anxiety and depression. The patient says he lives with his parents. He was found unresponsive in his bed by his family and friends. As per the ER notes, EMS found him initially unresponsive and not responding to sternal rub for approximately 30 seconds, then he came around, and complaining of pain of abdomen, some shortness of breath and complained of increasing abdominal swelling. The patient is currently alert and awake, somewhat hard of hearing, complains of abdominal pain and distention of abdomen, complains of some chest discomfort. Complains of neck pain, back pain, body ache. He also thinks that the swelling in his legs is worsening. He is taking Lasix, but as per the Epic notes, he was supposed to be on spironolactone, but he is not taking it so far. Denies any fever, chills. Has chronic cough. He gets headaches, but currently no headache, no blurred visions, no earache, no runny nose, no sore throat. No loss of sense of smell or taste, did not eat anything today. Ambulates okay at home. Denies any blood in the stools or black stools. Normal bladder movements. The patient says he wants to eat something now. Says he drank about two 16 ounces and one 12 ounces of beer today and alcohol level was 292 in the ER. Admission Exam Per Admitting Provider PHYSICAL EXAMINATION: GENERAL: The patient is alert and awake, does not seem to be in acute distress. VITAL SIGNS: Temperature 36.6, pulse 82, respiratory rate 20, blood pressure 92/57, oxygen 97% on 2 liters. HEENT: Pupils equal, round, reactive to light. Oral mucosa moist. NECK: Supple, no neck masses seen. CARDIOVASCULAR: S1, S2 heard, regular rate and rhythm, no murmur, no gallop. RESPIRATORY SYSTEM: Normal AP diameter. No accessory muscle use. No wheezing, no crackles. ABDOMEN: Soft, bowel sounds sluggish. Abdomen distended, mild abdominal generalized discomfort. No guarding. CENTRAL NERVOUS SYSTEM: Cranial nerves II-XII grossly intact. Nonfocal. EXTREMITIES: Bilateral lower extremity edema, +2 present. Principal Diagnosis acute metabolic encephalopathy alcoholic liver cirrhosis with ascites Continued Alcohol abuse h/o medication noncompliance Stable 4mm pulmonary nodule Discharge Exam CONSTITUTIONAL: WNWD, vitals as above, generally well-appearing EYES: normal conjunctivae ENT: external ear and nose normal NECK: trachea midline RESPIRATORY: clear to auscultation bilaterally, no crackles, rales or wheezes, normal respiratory effort CARDIOVASCULAR: regular rate and rhythm, S1 and 2 heard without murmurs, gallops or rubs, no JVD, no peripheral edema GASTROINTESTINAL: normal bowel sounds, soft, nontender, no guarding, nondistended, protuberant. MUSCULOSKELETAL: strength 5/5 throughout, head is normocephalic and atraumatic SKIN: warm and dry NEUROLOGIC: No facial palsy, no dysarthria. CN 2-12 grossly intact, normal cognition, normal speech, no tremor PSYCHIATRIC: alert cooperative and oriented to person, place and time. Discharge Data Allergies Allergy/AdvReac Type Severity Reaction Status Date / Time fentanyl Allergy Intermediate RASH ALL Verified 06/14/20 21:14 OVER BODY Consultations 06/14/20 21:33 ED Decision to Admit Stat 06/14/20 23:44 Consult Case Management - Discharge Planning Routine 06/15/20 08:00 Consult Gastroenterology Routine Ordered Studies 06/14/20 19:52 CT abd pelvis wo con Stat CT cervical spine wo con Stat CT head/brain wo con Stat 06/15/20 08:00 US paracentesis abd w/image Routine Hospital Course (1) Alcoholic cirrhosis of liver with ascites: (2) Acute metabolic encephalopathy: (3) Alcohol intoxication: (4) Tobacco abuse: (5) Alcohol abuse: Patient is a 54-year-old man with significant alcoholic liver disease with ascites, esophageal varices, portal hypertension, COPD, ongoing alcohol and tobacco use, history of chronic pancreatitis and history of thrombocytopenia due to hypersplenism. He also has a history of paroxysmal atrial fibrillation, pulmonary hypertension, history of pulmonary embolus, portal venous thrombosis not on anticoagulation and history of chronic anxiety and depression. He was found unresponsive in his bed by family and friends and he came around having some shortness of breath and some increasing abdominal swelling. He was seen in the ER and his alcohol level was 292. He was admitted to the hospitalist team for altered mental status and was placed on alcohol protocol with IV Ativan and gabapentin. He was also given daily thiamine and folic acid and a banana bag. He was empirically started on IV Rocephin in the setting of ascites and abdominal pain out of concern for spontaneous bacterial peritonitis. The following morning he underwent a paracentesis with 2.4 L of ascitic fluid. Labs were consistent with portal hypertension but not consistent with SBP with final culture pending at time of discharge. His meld score was 22 on admission and 21 at time of discharge. His altered mental status cleared with time. GI was consulted and continued his Lasix 20 mg daily adding Aldactone 50 mg daily. Xifaxan 550 twice daily was considered for possible HE however the patient has history of noncompliance and adding another medication seemed to be too much for this time. Outpatient GI follow-up is strongly recommended closely to consider this and continue to monitor. Again alcohol cessation was strongly recommended to him. Additional recommendations included a low-sodium diet, less than 2 g daily, a less than 2 g Tylenol usage daily if using, no NSAID use. At time of discharge he was having normal bowel movements, mentating and ambulating at baseline and tolerating p.o. without issue. He denied any abdominal pain. He was hemodynamically stable and afebrile. He was discharged home with close primary care follow-up recommended. Close GI follow-up was also recommended as outpatient for ongoing monitoring. Total Time Total Time Spent Total Time Spent (In Minutes): 60 Total Time Includes: Examination of the Patient, Discharge Planning, Medication Reconciliation and Communication With Other Providers Discharge Plan Discharge Items Patient Disposition: Home - Self-Care Reason For Visit: ABDOMINAL PAIN Discharge Diagnosis: acute metabolic encephalopathy alcoholic liver cirrhosis with ascites Continued Alcohol abuse h/o medication noncompliance Activity: Resume your previous activity Non-emergency contact: Primary Care Provider and Card Clothier Call non-emergency contact if: you have any medication questions, your symptoms worsen, your pain is not controlled, your pain is worsening and you have a fever Follow-up/Referrals: Jean Dave MD [Primary Care Provider] - Diet: Low Sodium (2gm) Addtl Attending Provider Instructions: Please take all medications as instructed on discharge list below. It is important that you follow-up with [facility] gastroenterology closely as outpatient. Please contact their office to set something up in the near future. It is important that you follow-up with your primary care provider (PCP) within 1 week of hospital discharge. Someone from our staff will contact you in the morning to set this up. You have a stable pulmonary nodule that was seen on imaging performed during this hospitalization. Please ensure this is addressed with your PCP in case future imaging needs to be performed. It is strongly recommended that you quit smoking and stop drinking alcohol. Per [facility] gastroenterology please stick to the diuretics prescribed including Lasix 20 mg daily and Aldactone 50 mg daily. This will help keep the fluid in your abdomen to a minimum. If you use Tylenol products please use no more than 2 g in a day. Please stick to a low-sodium diet no more than 2000 mg in a day. Please avoid nonsteroidal anti-inflammatory drugs (NSAIDs) such as Motrin or ibuprofen. It was a pleasure taking care of you! Please call if you have any questions or problems. You can reach a [facility] hospitalist on duty at [facility] 24 hours a day by calling [phone]. Take care of yourself. Norma Barrera, DO [facility] Pending Studies at Discharge: Yes Studies:: peritoneal fluid final culture results. Stand-Alone Forms: [facility], Smoking Cessation Medications and DC Order Prescriptions: Continued levothyroxine 25 mcg tablet 25 mcg PO QAM RF: 0 furosemide 20 mg tablet 20 mg PO QAM RF: 0 spironolactone 50 mg tablet 50 mg PO DAILY RF: 0 Discharge Orders: Discharge Order (Routine); Ordered 06/16/20 Ordered By: Norma Barrera Admission Data Admit Date/Time: 06/14/20 22:40 Attending Provider: Norma Barrera Admit Provider: Jhonny Tom Primary Care Provider: Jean Dave Other Providers: Jhonny Tom ; Lupe Marino ; Kathy Cramer ; Gm Cox ; Heydi Jean ; Abdullahi Suh ; Hilda Nieves ; Milton Palma ; Rosalee Burton ; Pierre Jimenez ; Gadiel Lawrence ; Dorina Lazar ; Glo Alvarado ; Amber Maza ; Adalgisa Royal ; Ira Mathis
--- NOTE | 2020-06-16 19:18 | Electrocardiogram Report ---
Test Reason : Blood Pressure : / mmHG Vent. Rate : 080 BPM Atrial Rate : 080 BPM P-R Int : 136 ms QRS Dur : 084 ms QT Int : 422 ms P-R-T Axes : 059 056 044 degrees QTc Int : 486 ms Normal sinus rhythm Nonspecific ST abnormality Prolonged QT Abnormal ECG When compared with ECG of 15-JUN-2020 06:49, No significant change was found Confirmed by Clement Ceballos ([id number]) on 06/16/2020 7:18:05 PM Referred By: REFERRED SELF Confirmed By:Brady Ceballos
[2020-06-17] MEDS ORDERED: GABAPENTIN 600 MG TAB PO SCH
[2020-06-18] MEDS ORDERED: GABAPENTIN 600 MG TAB PO SCH (12:00)
== END 2020-06-16 18:00 | disposition home or self-care (01) | DRG 432 ==
LOC: ED 19:41 → SUATTDRO 22:40 → 2N 22:40

== ENCOUNTER 2020-10-03 17:59 | Inpatient (IN) ==
--- NOTE | 2020-10-03 18:37 | Emergency Department Note ---
History of Present Illness General Chief complaint: Fall Stated complaint: FALL, NECK, LOWER BACK & HIP PAIN Time Seen by Provider: 10/03/20 18:22 Source: patient Mode of arrival: EMS Limitations: intoxication History of Present Illness Maximum Pain Intensity: 10 This patient comes in after drinking alcohol slipping on ice on the way home from a friend's house and hitting his head. He has head and neck pain also back pain and multiple complaints. He says he was feeling fine prior to this. He denies any fever chills or cough. He has chronic shortness of breath but none different than baseline. No GI symptoms. No known exposure to Covid or Covid- like symptoms. He is not on any blood thinners. Home Medications Medication Instructions Recorded Confirmed Type levothyroxine 25 mcg PO QAM 06/14/20 10/03/20 History spironolactone 50 mg PO DAILY 06/14/20 10/03/20 History rifaximin [Xifaxan] 550 mg PO BID 06/23/20 10/03/20 History furosemide [Lasix] 40 mg PO DAILY 07/19/20 10/03/20 History Allergies Allergy/AdvReac Type Severity Reaction Status Date / Time fentanyl Allergy Intermediate RASH ALL Verified 10/03/20 18:46 OVER BODY Past Med/Surg History Medical History (Updated 10/04/20 @ 01:00 by Sundar Pace MD) Abdominal pain Alcohol abuse Alcohol dependence Alcohol intoxication Alcoholic cirrhosis of liver without ascites Atrial fibrillation Breathlessness Chronic anxiety Chronic obstructive pulmonary disease Chronic pancreatitis COPD, mild Esophageal varices Hypertension Hypomagnesemia Hypothyroidism Myocardial Infarction On home oxygen therapy Paroxysmal atrial fibrillation Pulmonary embolism Seizure Syncope Surgical History H/O colonoscopy History of cholecystectomy "2009" History of esophagogastroduodenoscopy (EGD) "12/15/2014- Small varices. Erosive duodenitis." 01/09/17 - esophageal varicies, gastritis Family History Mother Diabetes Father Coronary heart disease Social History Smoking Status: Current every day smoker Tobacco Type: Cigarettes Cigarettes Per Day: 10; Second Hand Exposure: No; Hx Alcohol Use: Yes Alcohol type: beer Alcohol Intake Frequency Comment: 4 32 oz [employer] life daily Hx Substance Use: No Preferred Language: Citizen Of [place] Communication Ability: Effective Visual Impairment: No Limitations Hand Bunch Maker Required: No Beliefs That Will Affect Care: None marital status: Current Living Situation: Family Current Living Situation Comment: parents Feels Safe at Home: Yes Assistive Devices: Oxygen - at Night Review of Systems A total of 10 systems reviewed and were otherwise negative Physical Exam Vital Signs Vital Signs - 24 hr 10/03/20 18:11 10/03/20 19:17 10/03/20 20:17 Temperature 36.9 C Temperature Source Oral Pulse Rate 60 89 130 H Pulse Rate from SpO2 Sensor 88 124 H Respiratory Rate 16 18 18 Blood Pressure 118/78 126/79 116/87 Blood Pressure Mean 91 84 95 Blood Pressure Position Sitting Pulse Oximetry 98 98 97 Oxygen Delivery Method Room Air Sepsis Recent Fever Within 48 Hours No Sepsis New/Unexplained Change in Mental Status No Sepsis Action Taken by Nursing No Action Required 10/03/20 21:30 10/03/20 21:40 10/03/20 22:08 Temperature Temperature Source Pulse Rate 165 H 152 H Pulse Rate from SpO2 Sensor 153 H 129 H Respiratory Rate 20 22 Blood Pressure Blood Pressure Mean Blood Pressure Position Pulse Oximetry 96 95 96 Oxygen Delivery Method Room Air Sepsis Recent Fever Within 48 Hours Sepsis New/Unexplained Change in Mental Status Sepsis Action Taken by Nursing General: Well developed well nourished mildly intoxicated middle-age male who is boarded and collared but in no acute distress, breathing confortably on room air. Normal speech. Glascow coma score of 15 HEENT: Normal cephalic atraumatic. Pupils are equal round and reactive to light. Extraocular movements are intact. Oropharynx is pink with moist mucous membranes. No swelling of the mouth lips or tongue. No hyphema. No blood from the nose or septal hematoma. Mid face is stable. No dental trauma or malocclusion. Neck: Collared with a midline trachea. No meningeal signs or stiffness. No midline tenderness. No Stridor. Chest: Clear to auscultation bilaterally. No wheezes or rhonchi. No increased work of breathing. No rib or sternal tenderness. No subcutaneous air. No seat belt roman or external signs of trauma. Heart: Regular rate and rhythm without murmurs or gallops. Abdomen: Soft nontender. He does have just some distension and does tend to get chronic ascites and had paracentesis done just a couple days ago. Without rebound guarding or rigidity. No seatbelt roman or external signs of trauma Extremities: No cyanosis clubbing or edema. No calf tenderness or assymetry. Spine/Back. Non tender to palpation. No CVA tenderness. Skin: Good turgor without rashes. Neurologic exam: Cranial nerves two through 12 are intact. Motor and sensation are intact and symmetrical throughout. Normal level of consciousness Course Administered Medications Diltiazem HCl 125 mg/ Dextrose 125 mls @ 15 mls/hr IV .Q8H20M [facility]; Protocol Stop: 11/02/20 22:14 Last Admin: 10/04/20 00:11 Dose: 15 mg/hr, 15 mls/hr Documented by: [id number] Cosigned by: [id number] Titration: 10/04/20 00:11 Dose: 10 mg/hr, 10 mls/hr Documented by: [id number] Cosigned by: [id number] Titration: 10/03/20 22:51 Dose: 10 mg/hr, 10 mls/hr Documented by: [id number] Cosigned by: [id number] Titration: 10/03/20 22:27 Dose: 7.5 mg/hr, 7.5 mls/hr Documented by: [id number] Cosigned by: [id number] Admin: 10/03/20 22:20 Dose: 5 mg/hr, 5 mls/hr Documented by: [id number] Cosigned by: [id number] Discontinued Medications Diltiazem HCl (Diltiazem Hcl 5 Mg/Ml 5 Ml Vial) 10 mg IV NOW STA Stop: 10/03/20 22:06 Last Admin: 10/03/20 22:26 Dose: 10 mg Documented by: [id number] Cosigned by: [id number] Magnesium Sulfate/Dextrose (Magnesium Sulfate / D5w) 1 gm in 100 mls @ 100 mls/hr IV NOW STA Stop: 10/03/20 21:37 Last Infusion: 10/03/20 23:01 Dose: 0 mls/hr Documented by: [id number] Admin: 10/03/20 21:24 Dose: 100 mls/hr Documented by: [id number] Lorazepam (Ativan) 1 mg in 2 mls @ 2 mls/min IV NOW STA Stop: 10/03/20 20:39 Last Admin: 10/03/20 22:14 Dose: Not Given Documented by: [id number] Multivitamins 10 ml/ Thiamine HCl 100 mg/ Folic Acid 1 mg/Sodium Chloride 1,011.2 mls @ 1,011.2 mls/hr IV .Q1H ONE Stop: 10/03/20 21:59 Last Infusion: 10/03/20 23:26 Dose: 0 mls/hr Documented by: [id number] Admin: 10/03/20 22:26 Dose: 1,011.2 mls/hr Documented by: [id number] Ioversol (Ioversol 100ml) 94 ml IV ONCE ONE Stop: 10/03/20 19:54 Last Admin: 10/03/20 19:54 Dose: 94 ml Documented by: [id number] Lorazepam (Lorazepam 2 Mg/4 Ml Vial) Confirm Administered Dose 2 mg .ROUTE .STK- MED ONE Stop: 10/03/20 20:20 Last Admin: 10/03/20 21:01 Dose: 1 mg Documented by: [id number] Critical Care Time Critical Care Time: Yes Total Critical Care Time: 40 Due to the patient's complex medical history, development of rapid A. fib with need for multiple medications as well as a full trauma and metabolic work-up required as well as consultation and admission, I have personally spent greater than 40 minutes of critical care time in the direct management of this patient. This includes bedside care, interpretation of diagnostic studies, and testing, discussion with consultants, patient, and family members, and other required patient management activities. This 40 minutes is in excess of all separately billable procedures. Medical Decision Making Differential Diagnosis Alcohol intoxication head injury, cervical spine/lumbar spine injury, trauma, internal injuries, Covid, internal bleeding, electrolyte or metabolic abnormality Medical Records Attestation: I reviewed the patient's medical records. Home Medications Current Medication List: was personally reviewed by me Laboratory Data Attestation: I reviewed the patient's lab results. Result diagrams: 10/03/20 18:55 10/03/20 18:55 Lab Results 10/03/20 10/03/20 10/03/20 Range/Units 18:55 18:55 18:55 WBC 5.61 (4.8-10.8) K/uL RBC 3.33 L (4.7-6.1) M/uL Hgb 12.6 L (14.0-18.0) g/dL Hct 36.0 L (42-52) % MCV 108.1 H (80-100) fL MCH 37.8 H (25-34) pg MCHC 35.0 (32-36) g/dL RDW Std Deviation 53.3 H (36.4-46.3) fL RDW Coeff of Hernandez 13.4 (11.5-14.5) % Plt Count 74 L (130-400) K/uL MPV 11.8 H (7.4-10.4) fL Immature Gran % (Auto) 0.2 % Neut % (Auto) 51.3 % Lymph % (Auto) 32.1 % Benzie % (Auto) 13.7 % Eos % (Auto) 2.0 % Baso % (Auto) 0.7 % Neut # (Auto) 2.88 (1.4-6.5) K/uL Lymph # (Auto) 1.80 (1.2-3.4) K/uL Benzie # (Auto) 0.77 H (0.11-0.59) K/uL Eos # (Auto) 0.11 (0-0.5) K/uL Baso # (Auto) 0.04 (0-0.2) K/uL Immature Gran # (Auto) 0.01 (0.00-0.02) K/uL PT 20.0 H (9.0-12.0) Seconds INR 2.0 H (0.9-1.1) APTT 37.7 H (21.0-31.0) Seconds PTT Ratio 1.4 Sodium 135 L (136-145) mmol/L Potassium 3.0 L (3.5-5.1) mmol/L Chloride 102 (98-107) mmol/L Carbon Dioxide 25 (21-32) mmol/L Anion Gap 8.0 (3-11) BUN 4 L (7-18) mg/dl Creatinine 0.79 (0.6-1.4) mg/dl Est Cr Clr Drug Dosing 106.3 ml/min Est GFR ( Amer) 117.2 Est GFR (Non-Af Amer) 101.1 BUN/Creatinine Ratio 5.2 L (10-20) Glucose 96 (70-99) mg/dl Calcium 7.5 L (8.5-10.1) mg/dl Magnesium (1.8-2.4) mg/dl Total Bilirubin 7.3 H (0.2-1) mg/dl AST 76 H (15-37) U/L ALT 27 (12-78) U/L Alkaline Phosphatase 93 (45-117) U/L Troponin I (0-0.045) ng/ml Total Protein 7.1 (6.4-8.2) gm/dl Albumin 1.7 L (3.4-5.0) gm/dl Globulin 5.4 H (2.5-4.0) gm/dl Albumin/Globulin Ratio 0.3 L (0.9-2) Lipase 213 (73-393) U/L Urine Color Urine Appearance (Clear) Urine pH (4.5-7.5) Ur Specific Fitzgerald (1.000-1.030) Urine Protein (Negative) Urine Glucose (UA) (Negative) Urine Ketones (Negative) Urine Blood (Negative) Urine Nitrite (Negative) Urine Bilirubin (Negative) Urine Urobilinogen (Negative) Ur Leukocyte Esterase (Negative) Ethyl Alcohol mg/dL (0-3) mg/dl COVID-19 Eval Order SARS-CoV-2, RNA, NAAT (NEGATIVE) 10/03/20 10/03/20 10/03/20 Range/Units 18:55 18:55 19:20 WBC (4.8-10.8) K/uL RBC (4.7-6.1) M/uL Hgb (14.0-18.0) g/dL Hct (42-52) % MCV (80-100) fL MCH (25-34) pg MCHC (32-36) g/dL RDW Std Deviation (36.4-46.3) fL RDW Coeff of Hernandez (11.5-14.5) % Plt Count (130-400) K/uL MPV (7.4-10.4) fL Immature Gran % (Auto) % Neut % (Auto) % Lymph % (Auto) % Benzie % (Auto) % Eos % (Auto) % Baso % (Auto) % Neut # (Auto) (1.4-6.5) K/uL Lymph # (Auto) (1.2-3.4) K/uL Benzie # (Auto) (0.11-0.59) K/uL Eos # (Auto) (0-0.5) K/uL Baso # (Auto) (0-0.2) K/uL Immature Gran # (Auto) (0.00-0.02) K/uL PT (9.0-12.0) Seconds INR (0.9-1.1) APTT (21.0-31.0) Seconds PTT Ratio Sodium (136-145) mmol/L Potassium (3.5-5.1) mmol/L Chloride (98-107) mmol/L Carbon Dioxide (21-32) mmol/L Anion Gap (3-11) BUN (7-18) mg/dl Creatinine (0.6-1.4) mg/dl Est Cr Clr Drug Dosing ml/min Est GFR ( Amer) Est GFR (Non-Af Amer) BUN/Creatinine Ratio (10-20) Glucose (70-99) mg/dl Calcium (8.5-10.1) mg/dl Magnesium 1.7 L (1.8-2.4) mg/dl Total Bilirubin (0.2-1) mg/dl AST (15-37) U/L ALT (12-78) U/L Alkaline Phosphatase (45-117) U/L Troponin I 0.021 (0-0.045) ng/ml Total Protein (6.4-8.2) gm/dl Albumin (3.4-5.0) gm/dl Globulin (2.5-4.0) gm/dl Albumin/Globulin Ratio (0.9-2) Lipase (73-393) U/L Urine Color Yellow Urine Appearance Clear (Clear) Urine pH 7.0 (4.5-7.5) Ur Specific Fitzgerald 1.005 (1.000-1.030) Urine Protein Negative (Negative) Urine Glucose (UA) Negative (Negative) Urine Ketones Negative (Negative) Urine Blood Negative (Negative) Urine Nitrite Negative (Negative) Urine Bilirubin Negative (Negative) Urine Urobilinogen Negative (Negative) Ur Leukocyte Esterase Negative (Negative) Ethyl Alcohol mg/dL 128.0 H (0-3) mg/dl COVID-19 Eval Order SARS-CoV-2, RNA, NAAT (NEGATIVE) 12/27/20 12/27/20 Range/Units 20:30 20:30 WBC (4.8-10.8) K/uL RBC (4.7-6.1) M/uL Hgb (14.0-18.0) g/dL Hct (42-52) % MCV (80-100) fL MCH (25-34) pg MCHC (32-36) g/dL RDW Std Deviation (36.4-46.3) fL RDW Coeff of Hernandez (11.5-14.5) % Plt Count (130-400) K/uL MPV (7.4-10.4) fL Immature Gran % (Auto) % Neut % (Auto) % Lymph % (Auto) % Benzie % (Auto) % Eos % (Auto) % Baso % (Auto) % Neut # (Auto) (1.4-6.5) K/uL Lymph # (Auto) (1.2-3.4) K/uL Benzie # (Auto) (0.11-0.59) K/uL Eos # (Auto) (0-0.5) K/uL Baso # (Auto) (0-0.2) K/uL Immature Gran # (Auto) (0.00-0.02) K/uL PT (9.0-12.0) Seconds INR (0.9-1.1) APTT (21.0-31.0) Seconds PTT Ratio Sodium (136-145) mmol/L Potassium (3.5-5.1) mmol/L Chloride (98-107) mmol/L Carbon Dioxide (21-32) mmol/L Anion Gap (3-11) BUN (7-18) mg/dl Creatinine (0.6-1.4) mg/dl Est Cr Clr Drug Dosing ml/min Est GFR ( Amer) Est GFR (Non-Af Amer) BUN/Creatinine Ratio (10-20) Glucose (70-99) mg/dl Calcium (8.5-10.1) mg/dl Magnesium (1.8-2.4) mg/dl Total Bilirubin (0.2-1) mg/dl AST (15-37) U/L ALT (12-78) U/L Alkaline Phosphatase (45-117) U/L Troponin I (0-0.045) ng/ml Total Protein (6.4-8.2) gm/dl Albumin (3.4-5.0) gm/dl Globulin (2.5-4.0) gm/dl Albumin/Globulin Ratio (0.9-2) Lipase (73-393) U/L Urine Color Urine Appearance (Clear) Urine pH (4.5-7.5) Ur Specific Fitzgerald (1.000-1.030) Urine Protein (Negative) Urine Glucose (UA) (Negative) Urine Ketones (Negative) Urine Blood (Negative) Urine Nitrite (Negative) Urine Bilirubin (Negative) Urine Urobilinogen (Negative) Ur Leukocyte Esterase (Negative) Ethyl Alcohol mg/dL (0-3) mg/dl COVID-19 Eval [facility] SARS-CoV-2, RNA, NAAT POSITIVE A* (NEGATIVE) Imaging Data Attestation: I personally reviewed and interpreted this imaging study as follows: Radiologist's Impression: CT head/brain wo con CLINICAL HISTORY: Head pain status post trauma COMPARISON STUDY: 06/14/2020 TECHNIQUE: Axial CT of the brain is performed from the vertex to the skull base. IV contrast was not administered for this examination. A dose lowering technique was utilized adhering to the principles of ALARA. CT DOSE: FINDINGS: No intra or extra-axial mass lesions are visualized. There is no CT evidence of acute cortical infarction. There is no evidence of midline shift. There is no acute hemorrhage. No calvarial fractures are visualized. There are patchy white matter hypodensities likely on a small vessel basis. These remain unchanged from the prior study. There is no evidence of pathologic ventricular dilatation. There is no evidence of acute sinusitis IMPRESSION: No acute intracranial findings CT OF THE CERVICAL SPINE CLINICAL HISTORY: Neck pain status post trauma COMPARISON STUDY: 06/14/2020 CT DOSE: 1796.21 mGy.cm TECHNIQUE: CT scan of the cervical spine was performed from the skull base to the thoracic inlet. Images are reviewed in the axial, sagittal, and coronal planes. IV contrast was not administered for this examination. A dose lowering technique was utilized adhering to the principles of ALARA. FINDINGS: The visualized portions of the lung apices reveal no evidence of pneumothorax. There is pulmonary emphysema. There is a markedly enlarged thyroid gland. The prevertebral soft tissues are normal. No fractures or subluxations are visualized. There are multilevel degenerative changes IMPRESSION: 1. No acute fractures or traumatic subluxations 2. Multilevel degenerative change 3. Pulmonary emphysema 4. Markedly enlarged thyroid CT OF THE CHEST WITH IV CONTRAST CLINICAL HISTORY: Chest pain status post trauma COMPARISON STUDY: 11/10/2019 TECHNIQUE: Following the IV administration of 94 mL of Optiray-320, CT of the thorax was performed from the thoracic inlet to the lung bases. Images are reviewed in the axial, sagittal, and coronal planes. IV contrast was administered without complication. A dose lowering technique was utilized adhering to the principles of ALARA. CT DOSE: FINDINGS: Thyroid: There is a markedly enlarged heterogeneous thyroid gland. Thoracic aorta: The thoracic aorta is normal in course and caliber, noting standard 3-vessel arch anatomy. No aneurysm or dissection is seen. Pulmonary vasculature: The pulmonary trunk is normal in caliber. There are no central filling defects identified to suggest pulmonary embolus. Note that this examination was not protocoled for the evaluation of pulmonary emboli. HEART: The heart is normal in size and configuration, without pericardial effusion. Lungs and pleural spaces: There are multifocal groundglass pulmonary opacities suspicious for a multifocal pneumonia. The findings are consistent with although not specific for Covid 19 pneumonia. Correlation with Covid 19 testing is recommended Mediastinum: There is mild mediastinal lymphadenopathy, statistically reactive. Melanie: There is mild hilar lymph node enlargement, likely reactive. Axilla: Clear. Upper abdomen: The liver has a cirrhotic morphology. There is ascites. Skeletal structures: There is bilateral gynecomastia. No acute fractures are visualized. There are old left-sided rib deformities. IMPRESSION: 1. No evidence of acute intrathoracic injury 2. Multifocal groundglass pulmonary opacities consistent with a multifocal pneumonia likely viral. Correlation with Covid 19 testing recommended. 3. Mediastinal and hilar lymphadenopathy, likely reactive 4. Persistent markedly enlarged thyroid gland 5. Gynecomastia 6. Cirrhotic morphology of the liver. Ascites. CT abd pelvis IV con only CLINICAL HISTORY: Abdominal pain status post trauma. COMPARISON STUDY: CT scan dated 08/04/2020 TECHNIQUE: The patient was scanned in a dynamic helical fashion during intravenous administration of 94 cc of Optiray 320. A dose lowering technique was utilized adhering to the principles of ALARA. CT DOSE: FINDINGS: Lower chest: There are multifocal airspace opacity suspicious for a multifocal pneumonia, likely viral. There are esophageal varices. Liver: The liver has a cirrhotic morphology. No focal masses are visualized. There is no evidence of acute hepatic injury. Gallbladder: Surgically absent Spleen: The spleen is borderline enlarged. Pancreas: Unremarkable. Adrenal glands: Unremarkable. Kidneys: There is symmetric renal cortical enhancement. The kidneys are normal in size without hydronephrosis. Bowel: There are no transition zones indicate bowel obstruction. There is no pneumatosis. There is mild bowel wall thickening likely secondary to hepatocellular disease. The appendix appears normal Peritoneum: There is moderate ascites. There is fluid within a right inguinal hernia. Vasculature: There is no evidence of abdominal aortic aneurysm. There are multiple upper abdominal varices. Adenopathy: None. Pelvic viscera: The bladder, and pelvic viscera are unremarkable. Skeletal structures: No acute fractures are visualized. Old pelvic fracture is an old rib fractures are visualized. IMPRESSION: 1. No evidence of acute intra-abdominal or pelvic injury 2. Multifocal pulmonary airspace opacities suspicious for a multifocal pneumonia likely viral 3. Hepatic cirrhosis with evidence of portal hypertension and multiple varices 4. Moderate ascites 5. Mild bowel wall thickening, likely secondary to a portal colopathy 6. Ascitic fluid within a right inguinal hernia 7. Normal appendix ECG Data Attestation: I personally reviewed and interpreted this ECG as follows: Indication: + tachycardia Rate (beats per minute): 150 Rhythm: + atrial fibrillation (With rapid ventricular response) ECG Intervals/blocks: + Normal QRS ECG [place]: + Normal ECG ST segments: + Nonspecific ST abnormalities ECG Findings: + Other (Nonspecific T wave abnormality) Comparison ECG Date: from (07/19/20) Change: the following changes noted (Rapid A. fib is now present) MDM Narrative This patient was drinking and suffered a fall. He fell backwards hit his head and neck and back he has multiple complaints. He has multiple significant medical problems to begin with his vital signs initially are stable he was boarded and collared upon arrival IV access established blood work was obtained and I did order song trauma scans as his exam is unreliable due to his intoxication. He has no white count or fever to suggest infection. His his hemoglobin is baseline at 12.6. He has baseline thrombocytopenia. Urinalysis was negative and does not suggest trauma as there is no blood or infection. He has no significant electrolyte or metabolic abnormalities. CAT scan of his head neck chest abdomen pelvis not show any traumatic injuries. His chest x-ray is concerning for Covid. The nurse called me and told me that she was worried he was withdrawal he suddenly became tachycardic. I went and he does not seem overtly shaky but his alcohol was only 120 so he may be withdrawing as he does drink frequently and heavily. He was given Ativan 1 mg IV and we did an EKG, additional bloodwork. When I evaluated him he does not appear to be overtly shaky however. He was also given magnesium 1 g IV prior to getting the mag level back which was low at 1.7. He was also given banana bag and IV fluids. I did consult Dr. Tom and despite the Ativan fluids and magnesium this did not help his A. fib so is going to order additional medications for rate control. The patient will be admitted/observe for his rapid A. fib. He was Covid tested and was positive. Here he remained asymptomatic with his rapid heart rate and seemed sleepy with the Ativan but was easily arousable and not shaky. Continuous cardiac monitoring: An order was placed in the EMR for continuous cardiac monitoring. He was initially noted to be in normal sinus rhythm pulse of 60, however while he was in the ED he developed rapid A. fib with a heart rate in the 150s Impression & Plan Atrial fibrillation with RVR, Fall, Alcohol abuse, COVID-19, Alcohol withdrawal Discharge Plan Visit Data Chief Complaint: Fall Stated Complaint: FALL, NECK, LOWER BACK & HIP PAIN ED Provider: Sundar Pace Discharge Problem: Atrial fibrillation with RVR, Fall, Alcohol abuse, COVID-19, Alcohol withdrawal Patient Disposition: Admitted As Inpatient Discharge Instructions Interventions: ED Discharge Assessment Last Done: 10/04/20 00:19 Discharge Problem: Fall Qualifiers: Encounter type: initial encounter Qualified Code(s): W19.XXXA - Unspecified fall, initial encounter Alcohol withdrawal Qualifiers: Complication of substance-induced condition: uncomplicated Qualified Code(s): F10.230 - Alcohol dependence with withdrawal, uncomplicated
[2020-10-03 19:09] LABS: Hemoglobin 12.6 g/dL (14.0-18.0); Mean Corpuscular Hemoglobin 37.8 pg (25-34); Mean Corpuscular Volume 108.1 fL (80-100); RDW Coefficient of Variation 13.4 % (11.5-14.5); RDW Standard Deviation 53.3 fL (36.4-46.3); Red Blood Count 3.33 M/uL (4.7-6.1); White Blood Count 5.61 K/uL (4.8-10.8)
[2020-10-03 19:19] LABS: Partial Thromboplastin Ratio 1.4; Partial Thromboplastin Time 37.7 Seconds (21.0-31.0)
[2020-10-03 19:29] LABS: Appearance Urine Clear (Clear); Bilirubin Urine Negative (Negative); Blood Urine Negative (Negative); Color Urine Yellow; Glucose Urine UA Negative (Negative); Ketones Urine Negative (Negative); Leukocyte Esterase Urine Negative (Negative); Nitrite Urine Negative (Negative); Protein Urine Negative (Negative); Specific Gravity Urine 1.005 (1.000-1.030); Urobilinogen Urine Negative (Negative)
[2020-10-03 19:40] LABS: Albumin Globulin Ratio 0.3 (0.9-2); Albumin Level 1.7 gm/dl (3.4-5.0); BUN Creatinine Ratio 5.2 (10-20); Bilirubin,Total 7.3 mg/dl (0.2-1); Calcium 7.5 mg/dl (8.5-10.1); Creatinine Clr Calc Pharmacy 106.3 ml/min; Est GFR (African American) 117.2; Est GFR (Non-African American) 101.1; Globulin 5.4 gm/dl (2.5-4.0); Total Protein 7.1 gm/dl (6.4-8.2)
[2020-10-03 19:41] LABS: Mean Platelet Volume 11.8 fL (7.4-10.4); Platelet Count 74 K/uL (130-400)
[2020-10-03 19:42] LABS: Basophils # (auto) 0.04 K/uL (0-0.2); Basophils % (auto) 0.7 %; Eosinophils # (auto) 0.11 K/uL (0-0.5); Immature Granulocytes # (auto) 0.01 K/uL (0.00-0.02); Immature Granulocytes % (auto) 0.2 %; Lymphocytes % (auto) 32.1 %; Monocytes # (auto) 0.77 K/uL (0.11-0.59); Monocytes % (auto) 13.7 %; Neutrophils # (auto) 2.88 K/uL (1.4-6.5); Neutrophils % (auto) 51.3 %
[2020-10-03] MEDS ORDERED: IOVERSOL 100ml IV ONE (19:53)
--- NOTE | 2020-10-03 20:00 | CT Scan Report ---
CT head/brain wo con CLINICAL HISTORY: Head pain status post trauma COMPARISON STUDY: 06/14/2020 TECHNIQUE: Axial CT of the brain is performed from the vertex to the skull base. IV contrast was not administered for this examination. A dose lowering technique was utilized adhering to the principles of ALARA. CT DOSE: FINDINGS: No intra or extra-axial mass lesions are visualized. There is no CT evidence of acute cortical infarc tion. There is no evidence of midline shift. There is no acute hemorrhage. No calvarial fractures ar e visualized. There are patchy white matter hypodensities likely on a small vessel basis. These remain unchanged fr om the prior study. There is no evidence of pathologic ventricular dilatation. There is no evidence of acute sinusitis IMPRESSION: No acute intracranial findings ACT 112: Negative or not required by law. Electronically signed by: Charlie Kumar M.D. 10/03/2020 7:58 PM
--- NOTE | 2020-10-03 20:02 | CT Scan Report ---
CT OF THE CERVICAL SPINE CLINICAL HISTORY: Neck pain status post trauma COMPARISON STUDY: 06/14/2020 CT DOSE: 1796.21 mGy.cm TECHNIQUE: CT scan of the cervical spine was performed from the skull base to the thoracic inlet. Ines ges are reviewed in the axial, sagittal, and coronal planes. IV contrast was not administered for thi s examination. A dose lowering technique was utilized adhering to the principles of ALARA. FINDINGS: The visualized portions of the lung apices reveal no evidence of pneumothorax. There is pulmonary emp hysema. There is a markedly enlarged thyroid gland. The prevertebral soft tissues are normal. No fractures or subluxations are visualized. There are multilevel degenerative changes IMPRESSION: 1. No acute fractures or traumatic subluxations 2. Multilevel degenerative change 3. Pulmonary emphysema 4. Markedly enlarged thyroid ACT 112: Negative or not required by law. Electronically signed by: Charlie Kumar M.D. 10/03/2020 8:00 PM
--- NOTE | 2020-10-03 20:06 | CT Scan Report ---
CT OF THE CHEST WITH IV CONTRAST CLINICAL HISTORY: Chest pain status post trauma COMPARISON STUDY: 11/10/2019 TECHNIQUE: Following the IV administration of 94 mL of Optiray-320, CT of the thorax was performed f rom the thoracic inlet to the lung bases. Images are reviewed in the axial, sagittal, and coronal lorri modesto. IV contrast was administered without complication. A dose lowering technique was utilized adher ing to the principles of ALARA. CT DOSE: FINDINGS: Thyroid: There is a markedly enlarged heterogeneous thyroid gland. Thoracic aorta: The thoracic aorta is normal in course and caliber, noting standard 3-vessel arch susy steve. No aneurysm or dissection is seen. Pulmonary vasculature: The pulmonary trunk is normal in caliber. There are no central filling defects identified to suggest pulmonary embolus. Note that this examination was not protocoled for the evalu ation of pulmonary emboli. HEART: The heart is normal in size and configuration, without pericardial effusion. Lungs and pleural spaces: There are multifocal groundglass pulmonary opacities suspicious for a multi focal pneumonia. The findings are consistent with although not specific for Covid 19 pneumonia. Corre lation with Covid 19 testing is recommended Mediastinum: There is mild mediastinal lymphadenopathy, statistically reactive. Melanie: There is mild hilar lymph node enlargement, likely reactive. Axilla: Clear. Upper abdomen: The liver has a cirrhotic morphology. There is ascites. Skeletal structures: There is bilateral gynecomastia. No acute fractures are visualized. There are ol d left-sided rib deformities. IMPRESSION: 1. No evidence of acute intrathoracic injury 2. Multifocal groundglass pulmonary opacities consistent with a multifocal pneumonia likely viral. Co rrelation with Covid 19 testing recommended. 3. Mediastinal and hilar lymphadenopathy, likely reactive 4. Persistent markedly enlarged thyroid gland 5. Gynecomastia 6. Cirrhotic morphology of the liver. Ascites. ACT 112: Negative or not required by law. Electronically signed by: Charlie Kumar M.D. 10/03/2020 8:05 PM
--- NOTE | 2020-10-03 20:13 | CT Scan Report ---
CT abd pelvis IV con only CLINICAL HISTORY: Abdominal pain status post trauma. COMPARISON STUDY: CT scan dated 08/04/2020 TECHNIQUE: The patient was scanned in a dynamic helical fashion during intravenous administration of 94 cc of Optiray 320. A dose lowering technique was utilized adhering to the principles of ALARA. CT DOSE: FINDINGS: Lower chest: There are multifocal airspace opacity suspicious for a multifocal pneumonia, likely evie l. There are esophageal varices. Liver: The liver has a cirrhotic morphology. No focal masses are visualized. There is no evidence of acute hepatic injury. Gallbladder: Surgically absent Spleen: The spleen is borderline enlarged. Pancreas: Unremarkable. Adrenal glands: Unremarkable. Kidneys: There is symmetric renal cortical enhancement. The kidneys are normal in size without hydron ephrosis. Bowel: There are no transition zones indicate bowel obstruction. There is no pneumatosis. There is mi ld bowel wall thickening likely secondary to hepatocellular disease. The appendix appears normal Peritoneum: There is moderate ascites. There is fluid within a right inguinal hernia. Vasculature: There is no evidence of abdominal aortic aneurysm. There are multiple upper abdominal va rices. Adenopathy: None. Pelvic viscera: The bladder, and pelvic viscera are unremarkable. Skeletal structures: No acute fractures are visualized. Old pelvic fracture is an old rib fractures a re visualized. IMPRESSION: 1. No evidence of acute intra-abdominal or pelvic injury 2. Multifocal pulmonary airspace opacities suspicious for a multifocal pneumonia likely viral 3. Hepatic cirrhosis with evidence of portal hypertension and multiple varices 4. Moderate ascites 5. Mild bowel wall thickening, likely secondary to a portal colopathy 6. Ascitic fluid within a right inguinal hernia 7. Normal appendix ACT 112: Negative or not required by law. Electronically signed by: Charlie Kumar M.D. 10/03/2020 8:12 PM
[2020-10-03] MEDS ORDERED: LORazepam 2 MG/4 ML VIAL ONE (20:19)
[2020-10-03] MEDS ORDERED: MAGNESIUM SULFATE / D5W 1 GM/100 ML BAG IV STA (20:38)
[2020-10-03] MEDS ORDERED: LORazepam 1 MG/2 ML VIAL IV STA (20:38)
[2020-10-03 20:54] LABS: Magnesium 1.7 mg/dl (1.8-2.4); Troponin I 0.021 ng/ml (0-0.045)
[2020-10-03] MEDS ORDERED: MULTI-VITAMIN INFUSION 10 ML, THIAMINE HCL 100 MG, FOLIC ACID 1 MG in SODIUM CHLORIDE 0... IV ONE (21:00)
[2020-10-03] MEDS ORDERED: dilTIAZem HCl 5 MG/ML 5 ML VIAL IV STA (22:05)
[2020-10-03] MEDS ORDERED: STAT IV Infusion **Titration per Protocol STA (22:05)
[2020-10-03] MEDS: dilTIAZem HCL 125 MG in DEXTROSE 5% 100 ML IV SCH (22:20)
[2020-10-04] MEDS: dilTIAZem HCL 125 MG in DEXTROSE 5% 100 ML IV SCH (00:11)
[2020-10-04] MEDS ORDERED: LORazepam 3 MG/6 ML VIAL IV PRN (00:56)
[2020-10-04] MEDS ORDERED: ACETAMINOPHEN 325 MG TAB PO PRN (00:56)
[2020-10-04] MEDS ORDERED: LORazepam 2 MG/4 ML VIAL IV PRN (00:56)
[2020-10-04] MEDS ORDERED: ATIVAN IV ALCOHOL WITHDRAWL IV PRN (00:56)
[2020-10-04] MEDS ORDERED: NITROGLYCERIN SL 0.4 MG/TAB TAB SL PRN (00:56)
[2020-10-04] MEDS ORDERED: GABAPENTIN 1200MG ALCOHOL WITHDRAWAL LOAD PO STA (00:56)
[2020-10-04] MEDS ORDERED: LORazepam 1 MG/2 ML VIAL IV PRN (00:56)
--- NOTE | 2020-10-04 01:34 | History and Physical Report ---
DATE OF ADMISSION: 10/03/2020 CHIEF COMPLAINT: Status post fall, alcoholism, rapid AFib. HISTORY OF PRESENT ILLNESS: This is a 54-year-old male with past medical history significant for alcoholic liver cirrhosis with ascites, esophageal varices, portal hypertension, COPD, ongoing alcohol abuse, ongoing tobacco abuse, history of chronic pancreatitis, history of thrombocytopenia due to hypersplenism, history of paroxysmal atrial fibrillation, pulmonary hypertension, history of pulmonary embolus, portal vein thrombosis, not on any anticoagulation, history of chronic anxiety and depression, history of multiple admissions for alcoholism, who came to the hospital because he fell on the ice on his way home from friend's house after drinking alcohol and hitting his head. When he came into the ER, it looks like he complained of head and neck pain and also back pain and he was feeling fine prior to falling down. As per the ER notes, he denied any fever or chills. His shortness of breath is at his baseline. No GI symptoms. As per the ER, there is no exposure to COVID or COVID-like symptoms. The patient had multiple imaging studies, CT of the head, CT of the cervical spine, CT of the chest and abdomen and pelvis, which was remarkable for multiple multifocal ground-glass pulmonary opacities consistent with multifocal pneumonia, likely viral, and his COVID test came back positive and his alcohol level is 128, and the patient received Ativan in the ER and is currently drowsy.Patient went into rapid AFib. Could not get history from the patient. He can tell his name, but he is not answering any other questions and is sleeping. His labs showed potassium of 3, INR of 2, magnesium 1.7, total bilirubin 7.3. ALLERGIES: FENTANYL. PAST MEDICAL HISTORY: As mentioned above. PAST SURGICAL HISTORY: Colonoscopies with biopsy, multiple EGDs, EGD with endoscopic ultrasound, laparoscopic cholecystectomy. MEDICATIONS: The patient is on Lasix 40 mg p.o. daily, levothyroxine 25 mcg p.o. a.m., Xifaxan 550 mg p.o. b.i.d., spironolactone 50 mg p.o. daily. FAMILY HISTORY: Significant for mother has diabetes; brother has heart disorder; father has heart disorder; aunt has leukemia. SOCIAL HISTORY: . Smokes half pack a day for 30 years, history of alcoholism present. No drug use. REVIEW OF SYSTEMS: As per HPI. Review of systems is not obtainable at this time as the patient is drowsy. PHYSICAL EXAMINATION: GENERAL: The patient is drowsy, currently oriented to name only, not obeying any commands. VITAL SIGNS: Temperature 36.9, respiratory rate 20, pulse 150s, blood pressure 96/75, oxygen 93% on room air. HEENT: Pupils equal, round, and reactive to light. NECK: No neck masses seen. CARDIOVASCULAR: S1, S2 heard. Tachycardia, regular rhythm. RESPIRATORY SYSTEM: Normal AP diameter. No accessory muscle use. No wheezing, no crackles. ABDOMEN: Soft, bowel sounds present, no guarding. No rigidity. CENTRAL NERVOUS SYSTEM: Drowsy, not obeying commands. Moves extremities. EXTREMITIES: Trace pedal edema seen, no erythema seen. LABORATORY DATA: WBC 5.6, hemoglobin 12.6, hematocrit 36, platelets 74. PT 20, INR 2, APTT 37.7. Sodium 134, potassium 3, chloride 102, bicarbonate 25, BUN 4, creatinine 0.7, serum glucose 96, calcium 7.5, magnesium 1.7, total bilirubin 7.3, AST 76, ALT 27, alkaline phosphatase 93. Troponin I of 0.02, lipase 213. Urinalysis negative. Alcohol level 126. SARS-CoV-2 RNA positive. IMAGING DATA: CT of the head, no acute findings. CT of the chest with IV contrast, no evidence of acute intrathoracic injury, multifocal ground-glass pulmonary opacities consistent with a multifocal pneumonia, likely viral. Correlation with COVID-19 testing recommended. Mediastinal and hilar lymphadenopathy, likely reactive, markedly enlarged thyroid gland. Gynecomastia. Cirrhotic morphology of liver. CT of cervical spine, no acute findings, markedly enlarged thyroid. CT of the abdomen and pelvis, moderate ascites. Normal appendix. EKG: Rapid atrial fibrillation at the rate of 153 with PVCs with T-wave inversions in lateral and inferior leads. ASSESSMENT AND PLAN: This is a 54-year-old male who presents with a fall and alcoholism and went into rapid atrial fibrillation. 1. Rapid atrial fibrillation: The patient has history of paroxysmal atrial fibrillation, not on any beta blockers. We will place on IV Cardizem drip. The patient has history of alcoholism and not on any anticoagulation. His INR is 2 today. We will monitor in tele floor and we will consult cardiology for further recommendations. 2. Hypokalemia and hypomagnesemia: We will replace. 3. Alcoholism: Multiple admissions for alcoholism. We will place him on gabapentin protocol, IV Ativan p.r.n., IV thiamine, IV folic acid. Monitor closely for withdrawal. 4. Thrombocytopenia, anemia: Hemoglobin 12.6, platelets 74 from alcoholism and cirrhosis. We will monitor the labs. 5. Liver cirrhosis . MELD score 22 and discrimination score 44. Will continue his home Lasix and spironolactone and Xifaxan. On gentle fluids. We will monitor for volume overload. 6. Hypothyroidism: Continue Synthroid. 7. COVID-19 positive: Currently not requiring any oxygen. We will place him on IV Decadron. We will monitor. 8. Ascites: on diuretics. To consider paracentesis. 9. History of chronic pancreatitis: . 10. Deep vein thrombosis prophylaxis: Sequential compression devices for now. DISPOSITION: Closely monitor in the tele floor. Level 1 full code. Expect to discharge home when stable and follow with family doctor. JAILYN
[2020-10-04] MEDS ORDERED: GABAPENTIN 600 MG TAB PO STA (01:37)
[2020-10-04] MEDS: THIAMINE HCL 100 MG in SYRINGE 9 ML IV SCH ×2 (02:09→09:07)
[2020-10-04] MEDS: FOLIC ACID 1 MG in SYRINGE 9.8 ML IV SCH ×2 (02:09→09:06)
[2020-10-04] MEDS: POTASSIUM CHLORIDE / WTR 10 MEQ/100 ML PLCT IV SCH ×4 (02:10→05:38)
[2020-10-04] MEDS: D5NSS + 20MEQ KCL 20 MEQ/1,000 ML BAG IV SCH ×2 (02:10→19:11)
[2020-10-04 05:31] LABS: Hematocrit (blood only) 31.3 % (42-52); Mean Corpuscular Hemoglobin 37.7 pg (25-34); Mean Corpuscular Hgb Conc 35.1 g/dL (32-36); Mean Corpuscular Volume 107.2 fL (80-100); RDW Coefficient of Variation 13.4 % (11.5-14.5); RDW Standard Deviation 52.5 fL (36.4-46.3); Red Blood Count 2.92 M/uL (4.7-6.1); White Blood Count 4.73 K/uL (4.8-10.8)
[2020-10-04 05:34] LABS: Mean Platelet Volume 11.7 fL (7.4-10.4); Platelet Count 67 K/uL (130-400)
[2020-10-04 05:56] LABS: BUN Creatinine Ratio 6.8 (10-20); Calcium 6.9 mg/dl (8.5-10.1); Creatinine Clr Calc Pharmacy 133.2 ml/min; Est GFR (African American) 128.6; Est GFR (Non-African American) 110.9; Magnesium 1.8 mg/dl (1.8-2.4); Potassium 3.6 mmol/L (3.5-5.1); Troponin I 0.031 ng/ml (0-0.045)
[2020-10-04 06:07] LABS: D Dimer 9130 ug/L FEU (0-500)
[2020-10-04] MEDS: LEVOTHYROXINE SODIUM 25 MCG TABLET PO SCH (06:42)
[2020-10-04 06:44] LABS: Basophils # (auto) 0.02 K/uL (0-0.2); Basophils % (auto) 0.4 %; Echinocytes 1+; Eosinophils # (auto) 0.16 K/uL (0-0.5); Eosinophils % (auto) 3.4 %; Giant Platelets 1+; Immature Granulocytes # (auto) 0.02 K/uL (0.00-0.02); Immature Granulocytes % (auto) 0.4 %; Lymphocytes # (auto) 1.22 K/uL (1.2-3.4); Lymphocytes % (auto) 25.8 %; Monocytes # (auto) 0.66 K/uL (0.11-0.59); Neutrophils # (auto) 2.65 K/uL (1.4-6.5)
[2020-10-04] MEDS ORDERED: DEXAMETHASONE SOD INJ 4 MG/ML VIAL IV SCH (07:00)
[2020-10-04] MEDS: rifAXIMin 550 MG TABLET PO SCH ×2 (09:05→21:29)
[2020-10-04] MEDS: SPIRONOLACTONE 25 MG TAB PO SCH (09:05)
[2020-10-04] MEDS: FUROSEMIDE 40 MG TAB PO SCH (09:06)
[2020-10-04] MEDS: DEXAMETHASONE SOD PHOSPHATE 6 MG in SYRINGE 0 ML IV SCH (09:07)
[2020-10-04] MEDS: GABAPENTIN 600 MG TAB PO SCH ×2 (09:08→15:39)
--- NOTE | 2020-10-04 11:21 | Cardiology Consultation ---
Date of Consultation October 04, 2020 Assessment & Plan (1) Atrial fibrillation with RVR: (2) Alcohol abuse: (3) Hypokalemia: (4) Fall: (5) COVID-19: Recommendations: Continue supportive care for alcohol withdrawal, electrolyte replacement Utilize IV diltiazem as needed for the paroxysmal atrial fibrillation Pending heart rate and blood pressure, consider the addition of low dose short acting diltiazem (30 mg BID to TID) No anticoagulation. Patient with multiple contraindications to anticoagulation including but not limited to prior GI bleeding, esophageal varices, recurrent falls, nonadherence. Supervising Physician Co-Signing Physician Notes Patient evaluated via telephone conversation. Physical exam was not performed due to COVID-19 pneumonia. Patient remains in isolation room. Denies chest pain, shortness of breath, cough, fever, chills, or sick contacts. Aware of tachycardia and palpitations last night. Converted to sinus rhythm at approximately 3 AM. Borderline hypotensive on admission, however, improving throughout the day with hydration. Admits to continued excessive alcohol intake. A/P: 54-year-old patient admitted with atrial fibrillation rapid ventricular response and acute Covid 19 pneumonia. Spontaneous conversion to sinus rhythm. Recommend addition of low-dose calcium channel johnny therapy, Cardizem 30 mg 3 times daily. Contraindications to anticoagulation noted. Assess daily electrolytes. Maintain serum potassium greater than 4.0, magnesium greater than 2.0. Alcohol withdrawal protocol as per internal medicine. History of Present Illness Reason for Consultation: Atrial fibrillation Requesting Physician: Vaishali Attending Physician: Alexis Murray MD History of Present Illness Mr. Markos Martin is a 54 year old male who is being evaluated, as requested by Dr. Tom, secondary to paroxysmal atrial fibrillation with a rapid ventricular response. The patient presented to the [facility] ER after a fall, lapsing in to atrial fibrillation with a rapid ventricular response while in the ER. He was placed on IV diltiazem and spontaneously converted back to sinus rhythm with frequent atrial ectopy. Hypokalemia and hypocalcemia noted. He is Covid-19 positive. He has had multiple prior admissions for alcoholism. The patient's nurse was not available. The patient did not and would not provide any information via telephone. ER telemetry reviewed. Sinus initially. Lapsing into atrial fibrillation with a rapid ventricular response for a short period of time. Currently, 9:00 AM on 10/04/2020, his rhythm is sinus with frequent atrial ectopy. October 03, 2020 EKG: Atrial fibrillation with a RVR, [address]-T wave abnormality. QTc 520 ms. Allergies Allergy/AdvReac Type Severity Reaction Status Date / Time fentanyl Allergy Intermediate RASH ALL Verified 10/03/20 18:46 OVER BODY Home Medications Medication Instructions Recorded Confirmed Type levothyroxine 25 mcg PO QAM 06/14/20 10/03/20 History spironolactone 50 mg PO DAILY 06/14/20 10/03/20 History rifaximin [Xifaxan] 550 mg PO BID 06/23/20 10/03/20 History furosemide [Lasix] 40 mg PO DAILY 07/19/20 10/03/20 History Patient History Medical History Abdominal pain Alcohol abuse Alcohol dependence Alcohol intoxication Alcoholic cirrhosis of liver without ascites Atrial fibrillation Breathlessness Chronic anxiety Chronic obstructive pulmonary disease Chronic pancreatitis COPD, mild Esophageal varices Hypertension Hypomagnesemia Hypothyroidism Myocardial Infarction On home oxygen therapy Paroxysmal atrial fibrillation Pulmonary embolism Seizure Syncope Surgical History H/O colonoscopy History of cholecystectomy "2009" History of esophagogastroduodenoscopy (EGD) "12/15/2014- Small varices. Erosive duodenitis." 01/09/17 - esophageal varicies, gastritis Family History Mother Diabetes Father Coronary heart disease Social History Smoking Status: Current every day smoker Tobacco Type: Cigarettes Cigarettes Per Day: 15; Second Hand Exposure: No; Do You Dip or Chew Tobacco: No; Hx Alcohol Use: Yes Alcohol type: beer Alcohol Intake Frequency Comment: 4 32 oz [employer] daily Hx Substance Use: No Preferred Language: Nicaraguan Communication Ability: Effective Visual Impairment: No Limitations Manager Book Required: No Beliefs That Will Affect Care: None marital status: Current Living Situation: Family Current Living Situation Comment: parents Other Information That Helps Us Care for You: No Feels Safe at Home: Yes Safety Concerns: Feels Safe At This Time Assistive Devices: Oxygen - at Night Review of Systems Review of Systems: Unobtainable due to reduced consciousness Physical Exam Physical Exam: No physical examination transpired Results & Data ([facility]) Vital Signs (Past 12 Hours) Vital Signs Temp Pulse Pulse Resp BP BP Pulse Ox 10/04/20 09:40 36.8 C 90 20 126/66 93 10/04/20 06:00 76 22 110/62 98 10/04/20 04:00 81 24 139/70 97 10/04/20 03:01 87 22 92 10/04/20 03:00 86 23 99/56 L 92 10/04/20 02:46 134 H 20 93 10/04/20 02:45 135 H 21 96/68 L 92 10/04/20 02:31 134 H 23 91 10/04/20 02:30 122 H 22 104/68 92 10/04/20 02:18 36.7 C 152 H 22 101/68 93 10/04/20 02:17 167 H 22 101/68 93 10/04/20 02:16 139 H 19 93 10/04/20 02:15 150 H 24 84/59 L 94 10/04/20 02:01 134 H 22 102/64 98 10/04/20 01:45 141 H 24 99/66 L 99 10/04/20 01:44 139 H 22 98/70 L 98 10/04/20 01:15 137 H 21 91/67 L 99 10/04/20 01:00 132 H 24 105/69 99 10/04/20 00:45 142 H 23 101/76 100 10/04/20 00:30 125 H 25 H 100/77 99 10/04/20 00:15 145 H 22 94/76 L 99 10/04/20 00:00 137 H 22 96/76 L 94 10/03/20 23:50 147 H 24 98/68 L 96 10/03/20 23:46 153 H 24 111/80 94 10/03/20 23:30 138 H 24 90/74 L 95 10/03/20 23:20 151 H 23 98/72 L 95 Laboratory Results Laboratory Results - last 24 hr 10/03/20 10/03/20 10/03/20 18:55 18:55 18:55 WBC 5.61 RBC 3.33 L Hgb 12.6 L Hct 36.0 L MCV 108.1 H MCH 37.8 H MCHC 35.0 RDW Std Deviation 53.3 H RDW Coeff of Hernandez 13.4 Plt Count 74 L MPV 11.8 H Immature Gran % (Auto) 0.2 Neut % (Auto) 51.3 Lymph % (Auto) 32.1 Gillespie % (Auto) 13.7 Eos % (Auto) 2.0 Baso % (Auto) 0.7 Neut # (Auto) 2.88 Lymph # (Auto) 1.80 Gillespie # (Auto) 0.77 H Eos # (Auto) 0.11 Baso # (Auto) 0.04 Immature Gran # (Auto) 0.01 Giant Platelets Echinocytes PT 20.0 H INR 2.0 H APTT 37.7 H PTT Ratio 1.4 D-Dimer Sodium 135 L Potassium 3.0 L Chloride 102 Carbon Dioxide 25 Anion Gap 8.0 BUN 4 L Creatinine 0.79 Est Cr Clr Drug Dosing 106.3 Est GFR ( Amer) 117.2 Est GFR (Non-Af Amer) 101.1 BUN/Creatinine Ratio 5.2 L Glucose 96 Calcium 7.5 L Magnesium Total Bilirubin 7.3 H AST 76 H ALT 27 Alkaline Phosphatase 93 Troponin I Total Protein 7.1 Albumin 1.7 L Globulin 5.4 H Albumin/Globulin Ratio 0.3 L Lipase 213 Urine Color Urine Appearance Urine pH Ur Specific Spencer Urine Protein Urine Glucose (UA) Urine Ketones Urine Blood Urine Nitrite Urine Bilirubin Urine Urobilinogen Ur Leukocyte Esterase Ethyl Alcohol mg/dL COVID-19 Eval Order SARS-CoV-2, RNA, NAAT 10/03/20 10/03/20 10/03/20 18:55 18:55 19:20 WBC RBC Hgb Hct MCV MCH MCHC RDW Std Deviation RDW Coeff of Hernandez Plt Count MPV Immature Gran % (Auto) Neut % (Auto) Lymph % (Auto) Gillespie % (Auto) Eos % (Auto) Baso % (Auto) Neut # (Auto) Lymph # (Auto) Gillespie # (Auto) Eos # (Auto) Baso # (Auto) Immature Gran # (Auto) Giant Platelets Echinocytes PT INR APTT PTT Ratio D-Dimer Sodium Potassium Chloride Carbon Dioxide Anion Gap BUN Creatinine Est Cr Clr Drug Dosing Est GFR ( Amer) Est GFR (Non-Af Amer) BUN/Creatinine Ratio Glucose Calcium Magnesium 1.7 L Total Bilirubin AST ALT Alkaline Phosphatase Troponin I 0.021 Total Protein Albumin Globulin Albumin/Globulin Ratio Lipase Urine Color Yellow Urine Appearance Clear Urine pH 7.0 Ur Specific Spencer 1.005 Urine Protein Negative Urine Glucose (UA) Negative Urine Ketones Negative Urine Blood Negative Urine Nitrite Negative Urine Bilirubin Negative Urine Urobilinogen Negative Ur Leukocyte Esterase Negative Ethyl Alcohol mg/dL 128.0 H COVID-19 Eval Order SARS-CoV-2, RNA, NAAT 10/03/20 10/03/20 10/04/20 20:30 20:30 05:25 WBC RBC Hgb Hct MCV MCH MCHC RDW Std Deviation RDW Coeff of Hernandez Plt Count MPV Immature Gran % (Auto) Neut % (Auto) Lymph % (Auto) Gillespie % (Auto) Eos % (Auto) Baso % (Auto) Neut # (Auto) Lymph # (Auto) Gillespie # (Auto) Eos # (Auto) Baso # (Auto) Immature Gran # (Auto) Giant Platelets Echinocytes PT INR APTT PTT Ratio D-Dimer Sodium 138 Potassium 3.6 D Chloride 108 H Carbon Dioxide 25 Anion Gap 5.0 BUN 4 L Creatinine 0.63 Est Cr Clr Drug Dosing 133.2 Est GFR ( Amer) 128.6 Est GFR (Non-Af Amer) 110.9 BUN/Creatinine Ratio 6.8 L Glucose 109 H Calcium 6.9 L Magnesium 1.8 Total Bilirubin AST ALT Alkaline Phosphatase Troponin I 0.031 Total Protein Albumin Globulin Albumin/Globulin Ratio Lipase Urine Color Urine Appearance Urine pH Ur Specific Spencer Urine Protein Urine Glucose (UA) Urine Ketones Urine Blood Urine Nitrite Urine Bilirubin Urine Urobilinogen Ur Leukocyte Esterase Ethyl Alcohol mg/dL COVID-19 Eval [facility] SARS-CoV-2, RNA, NAAT POSITIVE A* 10/04/20 10/04/20 05:25 05:25 WBC 4.73 L RBC 2.92 L Hgb 11.0 L Hct 31.3 L MCV 107.2 H MCH 37.7 H MCHC 35.1 RDW Std Deviation 52.5 H RDW Coeff of Hernandez 13.4 Plt Count 67 L MPV 11.7 H Immature Gran % (Auto) 0.4 Neut % (Auto) 56.0 Lymph % (Auto) 25.8 Gillespie % (Auto) 14.0 Eos % (Auto) 3.4 Baso % (Auto) 0.4 Neut # (Auto) 2.65 Lymph # (Auto) 1.22 Gillespie # (Auto) 0.66 H Eos # (Auto) 0.16 Baso # (Auto) 0.02 Immature Gran # (Auto) 0.02 Giant Platelets 1+ Echinocytes 1+ PT INR APTT PTT Ratio D-Dimer 9130 H* Sodium Potassium Chloride Carbon Dioxide Anion Gap BUN Creatinine Est Cr Clr Drug Dosing Est GFR ( Amer) Est GFR (Non-Af Amer) BUN/Creatinine Ratio Glucose Calcium Magnesium Total Bilirubin AST ALT Alkaline Phosphatase Troponin I Total Protein Albumin Globulin Albumin/Globulin Ratio Lipase Urine Color Urine Appearance Urine pH Ur Specific Spencer Urine Protein Urine Glucose (UA) Urine Ketones Urine Blood Urine Nitrite Urine Bilirubin Urine Urobilinogen Ur Leukocyte Esterase Ethyl Alcohol mg/dL COVID-19 Eval Order SARS-CoV-2, RNA, NAAT (1) Fall Encounter type: initial encounter Qualified Code(s): W19.XXXA - Unspecified fall, initial encounter
[2020-10-04] MEDS ORDERED: MAGNESIUM OXIDE 400 MG TAB PO STA (14:21)
[2020-10-04] MEDS: dilTIAZem HCL 30 MG TAB PO SCH ×2 (14:40→21:29)
--- NOTE | 2020-10-04 15:09 | Hospitalist Progress Note ---
Date of Service October 04, 2020 Assessment & Plan (1) Fall: -Patient came ED on 10/03/2020 for head/neck/back pain after he fell on ice while ambulating after alcohol use - No acute fractures or traumatic subluxations on CT cervical and No acute intracranial findings on CT head on 10/03/2020 (2) Atrial fibrillation with RVR: -on ED presentation patient was in atrial fibrillation with RVR -patient transitioned from IV diltiazem to current oral diltiazem -as per cardiology consult: No anticoagulation. Patient with multiple contraindications to anticoagulation including but not limited to prior GI bleeding, esophageal varices, recurrent falls, nonadherence. (3) COVID-19: -incidentally during the ED presentation workup, patient was found on CT chest "Multifocal groundglass pulmonary opacities consistent with a multifocal pneumonia likely viral." and testing found patient to be COVID-19 positive and has -patient was started on IV dexamethasone. Patient should not be started on remdesivir because of potential liver toxicity in a patient who has abused alcohol -supplementary oxygen as needed (4) Alcohol abuse: Liver cirrhosis Thrombocytopenia and anemia from Alcoholism and Liver Cirrhosis -on gabapentin alcohol withdrawal protocol, has been given thiamine and folic acid - continue -CT abdomen in the ED shows problems with Alcoholism and Liver Cirrhosis : Hepatic cirrhosis with evidence of portal hypertension and multiple varices; Moderate ascites ; Mild bowel wall thickening, likely secondary to a portal colopathy; Ascitic fluid within a right inguinal hernia -pancreatitis in the past but no acute pancreatitis on presentation at this time -continue his home Lasix and spironolactone and Xifaxan (5) Hypokalemia: -serum potassium of 3 on presentation which has improved after potassium supplementation, monitor and replace as needed (6) Hypomagnesemia: -given magnesium supplements Hypothyroidism -Continue Synthroid. Deep vein thrombosis prophylaxis: Sequential compression devices for Admission and Anticipated Discharge Date Admission Date: October 03, 2020 Subjective Patient seen and examined at bedside. currently on nasal cannula oxygen. Patient denies acute distress. He is cooperating with nursing staff. Patient denies acute of other symptoms on review of systems Review of Systems Review of Systems: All systems reviewed & are unremarkable except as noted in Subjective Physical Exam Constitutional: comfortable Eyes: PERRL, conjunctivae normal, anicteric sclerae EOM intact bilaterally ENMT: external ear and nose normal, oropharynx normal Neck: normal visual inspection Respiratory: normal respiratory effort Cardiovascular: Rate/Rhythm: regular rate Gastrointestinal (Abdomen): Percussion/Palpation: abdomen soft Musculoskeletal: Head/Neck/Chest: normocephalic and head atraumatic Neurologic: moves all extremities and awake Psychiatric: Orientation: alert and cooperative Results & Data Results & Data ([facility]) Vital Signs (Past 12 Hours) Vital Signs Temp Pulse Resp BP Pulse Ox 10/04/20 09:40 36.8 C 90 20 126/66 93 10/04/20 06:00 76 22 110/62 98 10/04/20 04:00 81 24 139/70 97 (1) Fall Encounter type: initial encounter Qualified Code(s): W19.XXXA - Unspecified fall, initial encounter
--- NOTE | 2020-10-04 18:27 | Electrocardiogram Report ---
Test Reason : Blood Pressure : / mmHG Vent. Rate : 153 BPM Atrial Rate : 147 BPM P-R Int : 000 ms QRS Dur : 090 ms QT Int : 326 ms P-R-T Axes : 000 073 -48 degrees QTc Int : 520 ms Atrial fibrillation with rapid ventricular response with premature ventricular or aberrantly conducte d complexes Abnormal ECG When compared with ECG of 19-JUL-2020 20:54, Atrial fibrillation has replaced Sinus rhythm Vent. rate has increased BY [address] now depressed in Inferior leads ST now depressed in Lateral leads T wave inversion now evident in Inferior leads T wave inversion now evident in Lateral leads Confirmed by Clement Ceballos ([id number]) on 10/04/2020 6:27:23 PM Referred By: REFERRED SELF Confirmed By:Brady Ceballos
[2020-10-05] MEDS: GABAPENTIN 600 MG TAB PO SCH ×3 (00:34→17:00)
[2020-10-05 05:06] LABS: Hematocrit (blood only) 29.5 % (42-52); Hemoglobin 10.1 g/dL (14.0-18.0); Mean Corpuscular Hgb Conc 34.2 g/dL (32-36); Mean Corpuscular Volume 108.1 fL (80-100); RDW Coefficient of Variation 13.4 % (11.5-14.5); RDW Standard Deviation 52.1 fL (36.4-46.3); Red Blood Count 2.73 M/uL (4.7-6.1)
[2020-10-05 05:20] LABS: Mean Platelet Volume 11.6 fL (7.4-10.4); Platelet Count 60 K/uL (130-400)
[2020-10-05 05:28] LABS: Basophils # (auto) 0.03 K/uL (0-0.2); Basophils % (auto) 0.5 %; Eosinophils # (auto) 0.14 K/uL (0-0.5); Eosinophils % (auto) 2.5 %; Giant Platelets 1+; Immature Granulocytes # (auto) 0.01 K/uL (0.00-0.02); Immature Granulocytes % (auto) 0.2 %; Lymphocytes # (auto) 1.49 K/uL (1.2-3.4); Lymphocytes % (auto) 26.6 %; Monocytes # (auto) 0.82 K/uL (0.11-0.59); Monocytes % (auto) 14.6 %; Neutrophils # (auto) 3.11 K/uL (1.4-6.5); Neutrophils % (auto) 55.6 %
[2020-10-05 05:52] LABS: Albumin Globulin Ratio 0.3 (0.9-2); Albumin Level 1.4 gm/dl (3.4-5.0); BUN Creatinine Ratio 10.1 (10-20); Bilirubin,Total 4.9 mg/dl (0.2-1); Creatinine Clr Calc Pharmacy 125.3 ml/min; Est GFR (African American) 125.4; Est GFR (Non-African American) 108.2; Globulin 4.5 gm/dl (2.5-4.0); Total Protein 5.9 gm/dl (6.4-8.2)
[2020-10-05] MEDS: POTASSIUM CHLORIDE / WTR 10 MEQ/100 ML PLCT IV SCH ×2 (08:16→09:43)
[2020-10-05] MEDS: FOLIC ACID 1 MG in SYRINGE 9.8 ML IV SCH (08:40)
[2020-10-05] MEDS: THIAMINE HCL 100 MG in SYRINGE 9 ML IV SCH (08:41)
[2020-10-05] MEDS: DEXAMETHASONE SOD PHOSPHATE 6 MG in SYRINGE 0 ML IV SCH (08:41)
[2020-10-05] MEDS: POTASSIUM CHLORIDE CRTAB 20 MEQ TABCR PO SCH (08:44)
[2020-10-05] MEDS: LEVOTHYROXINE SODIUM 25 MCG TABLET PO SCH (08:45)
[2020-10-05] MEDS: rifAXIMin 550 MG TABLET PO SCH ×2 (08:46→19:58)
[2020-10-05] MEDS: MAGNESIUM OXIDE 400 MG TAB PO SCH (08:46)
[2020-10-05] MEDS: SPIRONOLACTONE 25 MG TAB PO SCH (08:47)
[2020-10-05] MEDS: FUROSEMIDE 40 MG TAB PO SCH (08:48)
[2020-10-05] MEDS: dilTIAZem HCL 30 MG TAB PO SCH ×3 (08:48→19:58)
--- NOTE | 2020-10-05 13:38 | Cardiology Progress Note ---
Date of Service October 05, 2020 Assessment & Plan (1) Atrial fibrillation with RVR: (2) Alcohol abuse: (3) Hypokalemia: (4) Fall: (5) COVID-19: Continue low-dose diltiazem 30 mg 3 times daily. Supportive care for alcohol withdrawal, electrolyte replacement. Contraindications to anticoagulation including prior GI bleeding, esophageal varices, recurrent falls, nonadherence to medical therapies, and alcoholism. Admission and Anticipated Discharge Date Admission Date: October 03, 2020 Subjective Chart reviewed. Respiratory status stable overnight. Oxygen saturation adequate on 1.5 L nasal cannula. Telemetry reviewed demonstrating sinus rhythm without evidence of recurrent atrial fibrillation. Blood pressure remains borderline hypotensive. Tolerating low-dose diltiazem. Results & Data ([facility]) Vital Signs (Past 12 Hours) Vital Signs Temp Pulse Pulse Resp BP Pulse Ox 10/05/20 11:16 36.7 C 75 18 96/59 L 95 10/05/20 08:00 69 10/05/20 07:51 36.6 C 73 17 100/51 L 98 10/05/20 06:23 36.8 C 74 105/53 L 97 10/05/20 05:25 75 18 92/42 L 95 10/05/20 03:59 73 18 96 (1) Fall Encounter type: initial encounter Qualified Code(s): W19.XXXA - Unspecified fall, initial encounter
--- NOTE | 2020-10-05 15:32 | Hospitalist Progress Note ---
Date of Service October 05, 2020 Assessment & Plan (1) Fall: -Patient came ED on 10/03/2020 for head/neck/back pain after he fell on ice while ambulating after alcohol use - No acute fractures or traumatic subluxations on CT cervical and No acute intracranial findings on CT head on 10/03/2020 (2) Atrial fibrillation with RVR: -on ED presentation patient was in atrial fibrillation with RVR -patient transitioned from IV diltiazem to current oral diltiazem on 10/04/2020 -as per cardiology consult: No anticoagulation. Patient with multiple contraindications to anticoagulation including but not limited to prior GI bleeding, esophageal varices, recurrent falls, nonadherence. -patient remain on telemtry monitoring and is in sinus rhythm at this time (3) COVID-19: -incidentally during the ED presentation workup, patient was found on CT chest "Multifocal groundglass pulmonary opacities consistent with a multifocal pneumonia likely viral." and testing found patient to be COVID-19 positive and has -patient was started on IV dexamethasone. Patient should not be started on remdesivir because of potential liver toxicity in a patient who has abused alcohol -supplementary oxygen as needed (4) Alcohol abuse: Liver cirrhosis Thrombocytopenia and anemia from Alcoholism and Liver Cirrhosis -on gabapentin alcohol withdrawal protocol, has been given thiamine and folic acid - continue -CT abdomen in the ED shows problems with Alcoholism and Liver Cirrhosis : Hepatic cirrhosis with evidence of portal hypertension and multiple varices; Moderate ascites ; Mild bowel wall thickening, likely secondary to a portal colopathy; Ascitic fluid within a right inguinal hernia -pancreatitis in the past but no acute pancreatitis on presentation at this time -continue his home Lasix and spironolactone and Xifaxan (5) Hypokalemia: -serum potassium of 3 on presentation which has improved after potassium supplementation, monitor and replace as needed -serum potassium again low on 10/05 and patient given additional potassium supplements (6) Hypomagnesemia: -given magnesium supplements on this admission and now on scheduled supplements Hypothyroidism -Continue Synthroid. Deep vein thrombosis prophylaxis: Sequential compression devices for now Admission and Anticipated Discharge Date Admission Date: October 03, 2020 Subjective Patient seen and examined at bedside on supplementary oxygen. he is not in acute distress. No acute pain. He denies other symptoms on review of systems. Patient understands that he remains in the hospital for electrolyte supplementation, monitoring of his heart, and on IV steroids for now and a goal is to see if he saturate on room air during hospital stay or whether he will need supplementary oxygen when he can be discharged Review of Systems Review of Systems: All systems reviewed & are unremarkable except as noted in Subjective Physical Exam Constitutional: comfortable Eyes: PERRL, conjunctivae normal, anicteric sclerae EOM intact bilaterally ENMT: external ear and nose normal, oropharynx normal Neck: normal visual inspection Respiratory: normal respiratory effort Cardiovascular: Rate/Rhythm: regular rate Gastrointestinal (Abdomen): Percussion/Palpation: abdomen soft Musculoskeletal: Head/Neck/Chest: normocephalic and head atraumatic Neurologic: moves all extremities and awake Psychiatric: Orientation: alert and cooperative Results & Data Results & Data ([facility]) Vital Signs (Past 12 Hours) Vital Signs Temp Pulse Pulse Resp BP Pulse Ox 10/05/20 11:16 36.7 C 75 18 96/59 L 95 10/05/20 08:00 69 10/05/20 07:51 36.6 C 73 17 100/51 L 98 10/05/20 06:23 36.8 C 74 105/53 L 97 10/05/20 05:25 75 18 92/42 L 95 10/05/20 03:59 73 18 96 (1) Fall Encounter type: initial encounter Qualified Code(s): W19.XXXA - Unspecified fall, initial encounter
[2020-10-06] MEDS: LEVOTHYROXINE SODIUM 25 MCG TABLET PO SCH (03:53)
[2020-10-06] MEDS ORDERED: GABAPENTIN 600 MG TAB PO SCH (04:00)
[2020-10-06] MEDS: THIAMINE HCL 100 MG in SYRINGE 9 ML IV SCH (08:01)
[2020-10-06] MEDS: DEXAMETHASONE SOD PHOSPHATE 6 MG in SYRINGE 0 ML IV SCH (08:02)
[2020-10-06] MEDS: FOLIC ACID 1 MG in SYRINGE 9.8 ML IV SCH (08:02)
[2020-10-06] MEDS: SPIRONOLACTONE 25 MG TAB PO SCH (08:03)
[2020-10-06] MEDS: POTASSIUM CHLORIDE CRTAB 20 MEQ TABCR PO SCH (08:03)
[2020-10-06] MEDS: FUROSEMIDE 40 MG TAB PO SCH (08:07)
[2020-10-06] MEDS: dilTIAZem HCL 30 MG TAB PO SCH ×2 (08:08→13:15)
[2020-10-06] MEDS: rifAXIMin 550 MG TABLET PO SCH (08:08)
[2020-10-06] MEDS: MAGNESIUM OXIDE 400 MG TAB PO SCH (08:18)
--- NOTE | 2020-10-06 10:37 | Cardiology Progress Note ---
Date of Service October 06, 2020 Assessment & Plan (1) Atrial fibrillation with RVR: (2) Alcohol abuse: (3) Hypokalemia: (4) Fall: (5) COVID-19: Continue low-dose diltiazem 30 mg 3 times daily. Supportive care for alcohol withdrawal, electrolyte replacement. Hypokalemia noted 10/05/2020. Repeat lab studies were not performed today. Repeat basic metabolic panel and serum magnesium level ordered. Replace electrolytes as indicated. Contraindications to anticoagulation including prior GI bleeding, esophageal varices, recurrent falls, nonadherence to medical therapies, and alcoholism. Admission and Anticipated Discharge Date Admission Date: October 03, 2020 Subjective Chart reviewed. Respiratory status improved overnight. Oxygen saturation normal on room air. Telemetry reviewed demonstrating sinus rhythm without evidence of recurrent atrial fibrillation. Blood pressure remains borderline hypotensive. Tolerating low-dose diltiazem. Results & Data ([facility]) Vital Signs (Past 12 Hours) Vital Signs Temp Pulse Resp BP Pulse Ox 10/06/20 07:20 36.4 C L 71 18 119/67 96 10/06/20 03:52 36.6 C 65 105/53 L 98 10/05/20 23:04 36.6 C 76 105/68 95 (1) Fall Encounter type: initial encounter Qualified Code(s): W19.XXXA - Unspecified fall, initial encounter
[2020-10-06 11:05] LABS: Albumin Level 1.6 gm/dl (3.4-5.0); BUN Creatinine Ratio 11.6 (10-20); Calcium 7.8 mg/dl (8.5-10.1); Creatinine Clr Calc Pharmacy 77.2 ml/min; Est GFR (African American) 105.4; Est GFR (Non-African American) 90.9; Magnesium 1.7 mg/dl (1.8-2.4); Potassium 3.8 mmol/L (3.5-5.1)
[2020-10-06 11:09] LABS: Albumin Globulin Ratio 0.3 (0.9-2); Bilirubin,Total 4.1 mg/dl (0.2-1); Globulin 5.3 gm/dl (2.5-4.0); Total Protein 6.9 gm/dl (6.4-8.2)
[2020-10-06 11:56] VITALS: O2SAT 96
[2020-10-06 15:43] VITALS: BP 110/63; PULSE 68; TEMP 97.5
--- NOTE | 2020-10-06 21:13 | Hospitalist Progress Note ---
Date of Service October 06, 2020 Assessment & Plan (1) Fall: per Dr. Alexis Murray's notes: -Patient came ED on 10/03/2020 for head/neck/back pain after he fell on ice while ambulating after alcohol use - No acute fractures or traumatic subluxations on CT cervical and No acute intracranial findings on CT head on 10/03/202010/06 denies pain ambulating with no problems (2) Atrial fibrillation with RVR: per Dr. Alexis Murray's notes: -on ED presentation patient was in atrial fibrillation with RVR -patient transitioned from IV diltiazem to current oral diltiazem on 10/04/2020 -Cardiology consulted: No anticoagulation. Patient with multiple contraindications to anticoagulation including but not limited to prior GI bleeding, esophageal varices, recurrent falls, nonadherence. 10/06 discharge on Diltiazem 30mg po TID ff up with [facility] as outpatient (3) COVID-19: per Dr. Alexis Murray's notes: -incidentally during the ED presentation workup, patient was found on CT chest "Multifocal groundglass pulmonary opacities consistent with a multifocal pneumonia likely viral." and testing found patient to be COVID-19 positive and has -patient was started on IV dexamethasone. Patient should not be started on remdesivir because of potential liver toxicity in a patient who has abused alcohol 10/06 currently on room air, saturating 96% continue incentive spirometry, ambulation at home given instructions to return to ER if with worsening of symptoms (4) Alcohol abuse: Liver cirrhosis Thrombocytopenia and anemia from Alcoholism and Liver Cirrhosis -CT abdomen in the ED shows problems with Alcoholism and Liver Cirrhosis : Hepatic cirrhosis with evidence of portal hypertension and multiple varices; Moderate ascites ; Mild bowel wall thickening, likely secondary to a portal colopathy; Ascitic fluid within a right inguinal hernia -pancreatitis in the past but no acute pancreatitis on presentation at this time -given gabapentin taper for Alcohol Withdrawal Protocol -continue his home Lasix and spironolactone and Xifaxan (5) Hypokalemia: - given K supplement (6) Hypomagnesemia: -given magnesium supplement Hypothyroidism -Continue Synthroid. Deep vein thrombosis prophylaxis: Sequential compression devices for now Admission and Anticipated Discharge Date Admission Date: October 03, 2020 Subjective ff up for s/p fall, Covid pneumonia seen sitting at the edge of the bed, comfortable, not in distress on room air states he feels better overall denies shortness of breath, cough, chest pain, palpitations, dizziness no other symptoms states he is ready and would like to be discharged today Review of Systems Review of Systems: All systems reviewed & are unremarkable except as noted in Subjective Physical Exam Physical Exam: General- oriented x 3, not in distress, speaks in sentences with no effort or accessory muscle use Eyes- anicteric Neck- no JVD Lungs- clear breath sounds bilaterally, no rales/wheezes Heart- normal rate, irregularly irregular rhythm; no murmurs Abdomen- normal bowel sounds, nondistended, soft, nontender Extremities- no pretibial edema, no calf tenderness Neuro- alert, oriented x 3; no gross focal neurologic deficits Skin- warm & dry Results & Data Results & Data ([facility]) Vital Signs (Past 12 Hours) Vital Signs Temp Pulse Pulse Pulse Pulse Resp Resp 10/06/20 16:39 36.4 C L 68 16 10/06/20 15:42 36.4 C L 68 16 10/06/20 11:54 36.5 C 70 19 10/06/20 10:25 86 84 87 20 Resp Resp BP Pulse Ox Pulse Ox Pulse Ox Pulse Ox 10/06/20 16:39 110/63 96 10/06/20 15:42 110/63 96 10/06/20 11:54 106/52 L 96 10/06/20 10:25 18 18 89 L 91 94 Laboratory Results Laboratory Results - last 24 hr 10/06/20 10:09 Sodium 138 Potassium 3.8 D Chloride 107 Carbon Dioxide 25 Anion Gap 6.0 BUN 11 D Creatinine 0.94 Est Cr Clr Drug Dosing 77.2 Est GFR ( Amer) 105.4 Est GFR (Non-Af Amer) 90.9 BUN/Creatinine Ratio 11.6 Glucose 273 H Calcium 7.8 L Magnesium 1.7 L Total Bilirubin 4.1 H AST 56 H ALT 28 Alkaline Phosphatase 105 Total Protein 6.9 Albumin 1.6 L Globulin 5.3 H Albumin/Globulin Ratio 0.3 L (1) Fall Encounter type: initial encounter Qualified Code(s): W19.XXXA - Unspecified fall, initial encounter
[2020-10-07] MEDS ORDERED: GABAPENTIN 600 MG TAB PO SCH (16:00)
--- NOTE | 2020-10-12 07:36 | Discharge Summary ---
Date of Service October 12, 2020 Admission HPI Per Admitting Provider CHIEF COMPLAINT: Status post fall, alcoholism, rapid AFib. HISTORY OF PRESENT ILLNESS: This is a 54-year-old male with past medical history significant for alcoholic liver cirrhosis with ascites, esophageal varices, portal hypertension, COPD, ongoing alcohol abuse, ongoing tobacco abuse, history of chronic pancreatitis, history of thrombocytopenia due to hypersplenism, history of paroxysmal atrial fibrillation, pulmonary hypertension, history of pulmonary embolus, portal vein thrombosis, not on any anticoagulation, history of chronic anxiety and depression, history of multiple admissions for alcoholism, who came to the hospital because he fell on the ice on his way home from friend's house after drinking alcohol and hitting his head. When he came into the ER, it looks like he complained of head and neck pain and also back pain and he was feeling fine prior to falling down. As per the ER notes, he denied any fever or chills. His shortness of breath is at his baseline. No GI symptoms. As per the ER, there is no exposure to COVID or COVID-like symptoms. The patient had multiple imaging studies, CT of the head, CT of the cervical spine, CT of the chest and abdomen and pelvis, which was remarkable for multiple multifocal ground-glass pulmonary opacities consistent with multifocal pneumonia, likely viral, and his COVID test came back positive and his alcohol level is 128, and the patient received Ativan in the ER and is currently drowsy.Patient went into rapid AFib. Could not get history from the patient. He can tell his name, but he is not answering any other questions and is sleeping. His labs showed potassium of 3, INR of 2, magnesium 1.7, total bilirubin 7.3. Admission Exam Per Admitting Provider GENERAL: The patient is drowsy, currently oriented to name only, not obeying any commands. VITAL SIGNS: Temperature 36.9, respiratory rate 20, pulse 150s, blood pressure 96/75, oxygen 93% on room air. HEENT: Pupils equal, round, and reactive to light. NECK: No neck masses seen. CARDIOVASCULAR: S1, S2 heard. Tachycardia, regular rhythm. RESPIRATORY SYSTEM: Normal AP diameter. No accessory muscle use. No wheezing, no crackles. ABDOMEN: Soft, bowel sounds present, no guarding. No rigidity. CENTRAL NERVOUS SYSTEM: Drowsy, not obeying commands. Moves extremities. EXTREMITIES: Trace pedal edema seen, no erythema seen. Principal Diagnosis S/P FALL ATRIAL FIBRILLATION WITH RVR COVID 19 PNEUMONIA Discharge Exam General- oriented x 3, not in distress, speaks in sentences with no effort or accessory muscle use Eyes- anicteric Neck- no JVD Lungs- clear breath sounds bilaterally, no rales/wheezes Heart- normal rate, irregularly irregular rhythm; no murmurs Abdomen- normal bowel sounds, nondistended, soft, nontender Extremities- no pretibial edema, no calf tenderness Neuro- alert, oriented x 3; no gross focal neurologic deficits Skin- warm & dry Discharge Data Allergies Allergy/AdvReac Type Severity Reaction Status Date / Time fentanyl Allergy Intermediate RASH ALL Verified 10/03/20 18:46 OVER BODY Consultations 10/03/20 21:23 ED Decision to Admit Stat 10/04/20 00:56 Consult Case Management - Discharge Planning Routine 10/04/20 08:00 Consult Cardiology Routine 10/05/20 17:18 Consult Case Management - Discharge Planning Routine Ordered Studies 10/03/20 18:30 CT abd pelvis IV con only Stat Lower chest: There are multifocal airspace opacity suspicious for a multifocal pneumonia, likely viral. There are esophageal varices. Liver: The liver has a cirrhotic morphology. No focal masses are visualized. There is no evidence of acute hepatic injury. Gallbladder: Surgically absent Spleen: The spleen is borderline enlarged. Pancreas: Unremarkable. Adrenal glands: Unremarkable. Kidneys: There is symmetric renal cortical enhancement. The kidneys are normal in size without hydronephrosis. Bowel: There are no transition zones indicate bowel obstruction. There is no pneumatosis. There is mild bowel wall thickening likely secondary to hepatocellular disease. The appendix appears normal Peritoneum: There is moderate ascites. There is fluid within a right inguinal hernia. Vasculature: There is no evidence of abdominal aortic aneurysm. There are multiple upper abdominal varices. Adenopathy: None. Pelvic viscera: The bladder, and pelvic viscera are unremarkable. Skeletal structures: No acute fractures are visualized. Old pelvic fracture is an old rib fractures are visualized. IMPRESSION: 1. No evidence of acute intra-abdominal or pelvic injury 2. Multifocal pulmonary airspace opacities suspicious for a multifocal pneumonia likely viral 3. Hepatic cirrhosis with evidence of portal hypertension and multiple varices 4. Moderate ascites 5. Mild bowel wall thickening, likely secondary to a portal colopathy 6. Ascitic fluid within a right inguinal hernia 7. Normal appendix CT cervical spine wo con Stat The visualized portions of the lung apices reveal no evidence of pneumothorax. There is pulmonary emphysema. There is a markedly enlarged thyroid gland. The prevertebral soft tissues are normal. No fractures or subluxations are visualized. There are multilevel degenerative changes IMPRESSION: 1. No acute fractures or traumatic subluxations 2. Multilevel degenerative change 3. Pulmonary emphysema 4. Markedly enlarged thyroid CT chest diagnostic w con Stat Thyroid: There is a markedly enlarged heterogeneous thyroid gland. Thoracic aorta: The thoracic aorta is normal in course and caliber, noting standard 3-vessel arch anatomy. No aneurysm or dissection is seen. Pulmonary vasculature: The pulmonary trunk is normal in caliber. There are no central filling defects identified to suggest pulmonary embolus. Note that this examination was not protocoled for the evaluation of pulmonary emboli. HEART: The heart is normal in size and configuration, without pericardial effusion. Lungs and pleural spaces: There are multifocal groundglass pulmonary opacities suspicious for a multifocal pneumonia. The findings are consistent with although not specific for Covid 19 pneumonia. Correlation with Covid 19 testing is recommended Mediastinum: There is mild mediastinal lymphadenopathy, statistically reactive. Melanie: There is mild hilar lymph node enlargement, likely reactive. Axilla: Clear. Upper abdomen: The liver has a cirrhotic morphology. There is ascites. Skeletal structures: There is bilateral gynecomastia. No acute fractures are visualized. There are old left-sided rib deformities. IMPRESSION: 1. No evidence of acute intrathoracic injury 2. Multifocal groundglass pulmonary opacities consistent with a multifocal pneumonia likely viral. Correlation with Covid 19 testing recommended. 3. Mediastinal and hilar lymphadenopathy, likely reactive 4. Persistent markedly enlarged thyroid gland 5. Gynecomastia 6. Cirrhotic morphology of the liver. Ascites. CT head/brain wo con Stat No intra or extra-axial mass lesions are visualized. There is no CT evidence of acute cortical infarction. There is no evidence of midline shift. There is no acute hemorrhage. No calvarial fractures are visualized. There are patchy white matter hypodensities likely on a small vessel basis. These remain unchanged from the prior study. There is no evidence of pathologic ventricular dilatation. There is no evidence of acute sinusitis IMPRESSION: No acute intracranial findings Hospital Course (1) Fall: per Dr. Alexis Murray's notes: -Patient came ED on 10/03/2020 for head/neck/back pain after he fell on ice while ambulating after alcohol use - No acute fractures or traumatic subluxations on CT cervical and No acute intracranial findings on CT head on 10/03/202010/06 denies pain ambulating with no problems (2) Atrial fibrillation with RVR: per Dr. Alexis Murray's notes: -on ED presentation patient was in atrial fibrillation with RVR -patient transitioned from IV diltiazem to current oral diltiazem on 10/04/2020 -Cardiology consulted: No anticoagulation. Patient with multiple contraindications to anticoagulation including but not limited to prior GI bleeding, esophageal varices, recurrent falls, nonadherence. 10/06 discharge on Diltiazem 30mg po TID ff up with [employer] as outpatient (3) COVID-19: per Dr. Alexis Murray's notes: -incidentally during the ED presentation workup, patient was found on CT chest "Multifocal groundglass pulmonary opacities consistent with a multifocal pneumonia likely viral." and testing found patient to be COVID-19 positive and has -patient was started on IV dexamethasone. Patient should not be started on remdesivir because of potential liver toxicity in a patient who has abused alcohol 10/06 currently on room air, saturating 96% continue incentive spirometry, ambulation at home given instructions to return to ER if with worsening of symptoms (4) Enlarged thyroid gland: seen on cervical spine and CT chest please refer to full report above -- Markedly enlarged thyroid -- work up, management and follow up as outpatient (5) Alcohol abuse: Liver cirrhosis Thrombocytopenia and anemia from Alcoholism and Liver Cirrhosis -CT abdomen in the ED shows problems with Alcoholism and Liver Cirrhosis : Hepatic cirrhosis with evidence of portal hypertension and multiple varices; Moderate ascites ; Mild bowel wall thickening, likely secondary to a portal colopathy; Ascitic fluid within a right inguinal hernia -pancreatitis in the past but no acute pancreatitis on presentation at this time -given gabapentin taper for Alcohol Withdrawal Protocol -continue his home Lasix and spironolactone and Xifaxan (6) Hypokalemia: - given K supplement (7) Hypomagnesemia: -given magnesium supplement Hypothyroidism -Continue Synthroid. Deep vein thrombosis prophylaxis: Sequential compression devices for now Total Time Total Time Spent Total Time Spent (In Minutes): > 30 minutes Discharge Plan Discharge Items Patient Disposition: Home - Self-Care Reason For Visit: FALL Discharge Diagnosis: FALL COVID PNEUMONIA ATRIAL FIBRILLATION Activity: As commented below Activity Comment: GRADUALLY TOLERATED, AMBULATE FREQUENTLY Lifting: Wait until after follow-up appointment Exercise/Sports: Wait until after follow-up appointment Driving/Machine Use: NO DRIVING Non-emergency contact: Primary Care Provider Call non-emergency contact if: you have any medication questions, your symptoms worsen and you have a fever Follow-up/Referrals: Jean Dave MD [Primary Care Provider] - (Date & Time 10/12/2020 10:00 AM Provider Michael Izaguirre MD [facility] PLEASE NOTE THAT THIS IS A TELEVIDEO APPOINTMENT. PLEASE FOLLOW THE INSTRUCTIONS PROVIDED TO YOU IN AN EMAIL YOU WILL RECEIVE. IF YOU HAVE ANY QUESTIONS OR NEED TO CHANGE THE APPOINTMENT, PLEASE CALL ) Diet: Heart Healthy and Low Sodium (2gm) Addtl Attending Provider Instructions: PLEASE REVIEW YOUR NEW MEDICATION LIST AND FOLLOW INSTRUCTIONS CAREFULLY. YOUR NEW MEDICATIONS ARE: DILTIAZEM- TO CONTROL IRREGULAR HEARTBEAT POTASSIUM SUPPLEMENT- FOR LOW POTASSIUM MAGNESIUM SUPPLEMENT- FOR LOW MAGNESIUM GABAPENTIN- TO PREVENT ALCOHOL WITHDRAWAL, DO NOT TAKE IF YOU ARE GOING TO DRINK ALCOHOL AGAIN USE INCENTIVE SPIROMETRY EVERY 15 MINUTES. CONTINUE PRONE POSITIONING AT HOME. YOU NEED TO BE ISOLATED AT HOME, IN YOUR OWN ROOM FOR AT LEAST 10 MORE DAYS TO PREVENT YOU FROM SPREADING COVID VIRUS. ALWAYS AMBULATE FREQUENTLY TO AVOID BLOOD CLOTS, ESPECIALLY WITH YOUR HISTORY FO BLOOD CLOT IN THE LUNGS. DO NOT SIT OR LAY DOWN ALL THE TIME. CALL PRIMARY CARE PHYSICIAN OR RETURN TO THE ER IMMEDIATELY IF WITH WORSENING OF SYMPTOMS, SHORTNESS OF BREATH, CHEST PAIN, LEG SWELLING/PAIN, WEAKNESS, DIZZINESS, PALPITATIONS. FOLLOW UP WITH PRIMARY CARE PHYSICIAN IN 1 WEEK. THE CLINIC WILL BE CALLING YOU FOR THE APPOINTMENT. FOLLOW UP WITH THE LINE CLOSER IN 2-3 WEEKS. NO ALCOHOL/SMOKING. Home Isolation COVID-19 Instructions The following information about Home Isolation is from the CDC Website: https://www.cdc.gov/coronavirus/2019-ncov/hcp/afmhsguv-qkubezi-cpyibx.html Stay home except to get medical care People who are mildly ill with COVID-19 are able to isolate at home during their illness. You should restrict activities outside your home, except for getting medical care. Do not go to work, school, or public areas. Avoid using public transportation, ride-sharing, or taxis. Separate yourself from other people and animals in your home People: As much as possible, you should stay in a specific room and away from other people in your home. Also, you should use a separate bathroom, if available. Animals: You should restrict contact with pets and other animals while you are sick with COVID-19, just like you would around other people. Although there have not been reports of pets or other animals becoming sick with COVID-19, it is still recommended that people sick with COVID-19 limit contact with animals until more information is known about the virus. When possible, have another member of your household care for your animals while you are sick. If you are sick with COVID-19, avoid contact with your pet, including petting, snuggling, being kissed or licked, and sharing food. If you must care for your pet or be around animals while you are sick, wash your hands before and after you interact with pets and wear a face mask. Call ahead before visiting your doctor If you have a medical appointment, call the healthcare provider and tell them that you have or may have COVID-19. This will help the healthcare providers office take steps to keep other people from getting infected or exposed. Wear a face mask You should wear a face mask when you are around other people (e.g., sharing a room or vehicle) or pets and before you enter a healthcare providers office. If you are not able to wear a face mask (for example, because it causes trouble breathing), then people who live with you should not stay in the same room with you, or they should wear a face mask if they enter your room. Cover your coughs and sneezes Cover your mouth and nose with a tissue when you cough or sneeze. Throw used tissues in a lined trash can. Immediately wash your hands with soap and water for at least 20 seconds or, if soap and water are not available, clean your hands with an alcohol-based hand exploitation analyst that contains at least 60% alcohol. Clean your hands often Wash your hands often with soap and water for at least 20 seconds, especially after blowing your nose, coughing, or sneezing; going to the bathroom; and before eating or preparing food. If soap and water are not readily available, use an alcohol-based hand exploitation analyst with at least 60% alcohol, covering all surfaces of your hands and rubbing them together until they feel dry. Soap and water are the best option if hands are visibly dirty. Avoid touching your eyes, nose, and mouth with unwashed hands. Avoid sharing personal household items You should not share dishes, drinking glasses, cups, eating utensils, towels, or bedding with other people or pets in your home. After using these items, they should be washed thoroughly with soap and water. Clean all high-touch surfaces everyday High touch surfaces include counters, tabletops, doorknobs, bathroom fixtures, toilets, phones, keyboards, tablets, and bedside tables. Also, clean any surfaces that may have blood, stool, or body fluids on them. Use a household cleaning spray or wipe, according to the label instructions. Labels contain instructions for safe and effective use of the cleaning product including precautions you should take when applying the product, such as wearing gloves and making sure you have good ventilation during use of the product. Monitor your symptoms Seek prompt medical attention if your illness is worsening (e.g., difficulty breathing).Beforeseeking care, call your healthcare provider and tell them that you have, or are being evaluated for, COVID-19. Put on a face mask before you enter the facility. These steps will help the healthcare providers office to keep other people in the office or waiting room from getting infected or exposed. Ask your healthcare provider to call the local or state health department. Persons who are placed under active monitoring or facilitated self- monitoring should follow instructions provided by their local health department or occupational health professionals, as appropriate. When working with your local health department check their available hours. If you have a medical emergency and need to call 911, notify the dispatch garfield dior that you have, or are being evaluated for COVID-19. If possible, put on a face mask before emergency medical services arrive. Discontinuing home isolation Patients with confirmed COVID-19 should remain under home isolation precautions until the risk of secondary transmission to others is thought to be low. The decision to discontinue home isolation precautions should be made on a [id number] basis, in consultation with healthcare providers and state and local health departments. Pending Studies at Discharge: No Stand-Alone Forms: [facility], Smoking Cessation Medications and DC Order Prescriptions: New gabapentin 600 mg Tablet 600 mg PO Q24H Qty: 1 RF: 0 potassium chloride [Klor-Con M20] 20 mEq Tablet,Er Particles/Crystals 40 meq PO QAM Qty: 60 RF: 1 magnesium oxide 400 mg (241.3 mg magnesium) Tablet 400 mg PO BID Qty: 60 RF: 1 diltiazem HCl 30 mg Tablet 30 mg PO TID Qty: 90 RF: 1 Continued Xifaxan 550 mg tablet 550 mg PO BID RF: 0 levothyroxine 25 mcg tablet 25 mcg PO QAM RF: 0 spironolactone 50 mg tablet 50 mg PO DAILY RF: 0 furosemide [Lasix] 40 mg Tablet 40 mg PO DAILY RF: 0 Discharge Orders: Discharge Order (Routine); Ordered 10/06/20 Ordered By: Jim Damian Admission Data Admit Date/Time: 10/03/20 22:10 Attending Provider: Jim Damian Admit Provider: Jhonny Tom Primary Care Provider: Jean Dave Other Providers: Jhonny Tom ; Devan Baez ; Juan Ramon Prather ; Samson Duncan ; Ned Beltran ; Austin Templeton ; Jean Cordon ; Radha Dunaway ; Shelley Emerson ; Thuan Campos ; Alexis Murray. Other Interventions: Discharge Summary Assessment (RN) Last Done: 10/06/20 16:39
== END 2020-10-06 17:14 | disposition home or self-care (01) | DRG 177 ==
LOC: ED 17:59 → EDINP 22:10 → SUATTDRO 22:10 → 2E 10-05 06:15

== ENCOUNTER 2020-12-30 17:42 | Inpatient (IN) ==
[2020-12-30] MEDS ORDERED: ONDANSETRON INJ 2 MG/ML 2 ML VIAL IV STA (18:50)
[2020-12-30 19:18] LABS: Hematocrit (blood only) 35.2 % (42-52); Hemoglobin 12.6 g/dL (14.0-18.0); Mean Corpuscular Hemoglobin 37.3 pg (25-34); Mean Corpuscular Hgb Conc 35.8 g/dL (32-36); Mean Corpuscular Volume 104.1 fL (80-100); RDW Coefficient of Variation 14.2 % (11.5-14.5); RDW Standard Deviation 54.5 fL (36.4-46.3); Red Blood Count 3.38 M/uL (4.7-6.1); White Blood Count 4.92 K/uL (4.8-10.8)
[2020-12-30 19:36] LABS: Alanine Aminotransferase 23 U/L (12-78); Aspartate Aminotransferase 70 U/L (15-37); BUN Creatinine Ratio 4.8 (10-20); Bilirubin Direct 1.5 mg/dl (0-0.2); Blood Urea Nitrogen 4 mg/dl (7-18); Calcium 8.3 mg/dl (8.5-10.1); Carbon Dioxide 26 mmol/L (21-32); Chloride 109 mmol/L (98-107); Est GFR (African American) 117.6; Est GFR (Non-African American) 101.4; Glucose 86 mg/dl (70-99); Lipase 207 U/L (73-393); Potassium 3.4 mmol/L (3.5-5.1); Sodium 141 mmol/L (136-145)
[2020-12-30 19:38] LABS: Alkaline Phosphatase 117 U/L (45-117); Bilirubin,Total 5.2 mg/dl (0.2-1); Total Protein 7.4 gm/dl (6.4-8.2)
--- NOTE | 2020-12-30 19:56 | XRay Report ---
PA CHEST RADIOGRAPH AND UPRIGHT AND SUPINE AP RADIOGRAPHS OF THE ABDOMEN CLINICAL HISTORY: Epigastric pain. COMPARISON STUDY: Chest radiograph and abdominal series December 12, 2020. FINDINGS: Lung volumes are normal. No pneumothorax or pleural effusion is noted. Upper mediastinal w idening is due to an enlarged thyroid as shown on prior chest CT. Cardiomediastinal silhouette is sta ble. Enlargement of the bilateral surinder is due to pulmonary arteries, as shown on prior exam. Mild int erstitial thickening persists. There is no free air. The bowel gas pattern is normal. There are gilamr cystectomy clips. IMPRESSION: 1. No free air or evidence of bowel obstruction. 2. Persistent interstitial thickening which may reflect mild pulmonary edema or an infectious process . ACT 112: Negative or not required by law. Electronically signed by: Chuy Rodríguez M.D. 12/30/2020 7:55 PM
[2020-12-30 20:14] LABS: Platelet Count 75 K/uL (130-400)
[2020-12-30 20:19] LABS: ALC (manual) 2.23 K/uL (1.2-3.4); Basophils # (manual) 0.21 K/uL (0-0.2); Basophils % (manual) 4.3 %; Echinocytes 1+; Eosinophils # (manual) 0.17 K/uL (0-0.5); Eosinophils % (manual) 3.5 %; Large Granular Lymph # (manua 0.77 K/uL; Large Granular Lymph % (manual) 15.7 %; Lymphocytes # (manual) 1.46 K/uL (1.2-3.4); Lymphocytes % (manual) 29.6 %; Monocytes # (manual) 0.21 K/uL (0.11-0.59); Monocytes % (manual) 4.3 %; Neutrophils % (manual) 42.6 %; Platelet Estimate Decreased (Normal)
[2020-12-30] MEDS ORDERED: LORazepam 1 MG/2 ML VIAL IV STA ×2 (20:46→21:01)
[2020-12-30] MEDS ORDERED: dilTIAZem HCl 5 MG/ML 5 ML VIAL IV STA ×2 (21:02→21:10)
[2020-12-30] MEDS ORDERED: STAT IV Infusion **Titration per Protocol STA ×2 (21:02→23:14)
[2020-12-30] MEDS ORDERED: SODIUM CHLORIDE 0.9% 1000ML 1,000 ML IV ONE (21:05)
[2020-12-30] MEDS ORDERED: dilTIAZem HCL 125 MG in DEXTROSE 5% 100 ML IV SCH (21:15)
[2020-12-30] MEDS ORDERED: POTASSIUM CHLORIDE CRTAB 20 MEQ TABCR PO STA (21:57)
[2020-12-30] MEDS ORDERED: MAGNESIUM SULFATE / D5W 1 GM/100 ML BAG IV ONE (22:01)
[2020-12-30] MEDS ORDERED: GABAPENTIN 600 MG TAB PO STA (22:23)
[2020-12-30] MEDS ORDERED: dilTIAZem HCL 30 MG TAB PO ONE (22:25)
--- NOTE | 2020-12-30 22:25 | History & Physical Report ---
Date of Service December 30, 2020 Assessment & Plan (1) Atrial fibrillation with rapid ventricular response: Recurrent AF secondary to abdominal pain possible SBP (no sepsis for now), hx alcoholic cirrhosis Patient currently NSR after spontaneous conversion at the ER. Patient not on maintenance medications/anticoagulation for PAF due to history of impulsive/self-destructive behavior/alcohol abuse COPD, pulmonary status at baseline Chronic anemia, hemoglobin at baseline Hypokalemia Hypothyroidism, not on maintenance medications due to compliance issues/impulsive behavior Goiter, concern for thyroid lymphoma as per outpatient Endocrinology opinion. (Patient has noncompliance history, poor follow-up with PCP.) Coagulopathy secondary to liver disease ongoing tobacco abuse PCU Oral Cardizem inpatient Ceftriaxone for possible SBP Diagnostic/therapeutic paracentesis in a.m. Vitamin K, FFP prior to paracentesis to reverse coagulopathy GI consult Re: Ascites WALDEMAR S/DT precautions Replace potassium Nicotine patch as needed DVT prophylaxis. SCDs RE thrombocytopenia Full code Text document was generated using [employer] voice recognition software. It may contain grammatical or spelling errors. Kindly contact undersigned for clarification of any documentation item in qu estion. History of Present Illness Chief Complaint: Abdominal pain going to the chest Primary Care Provider: Jean Dave MD History obtained from the patient and records. Medical history significant for alcoholic cirrhosis, COPD, ongoing tobacco/alcohol abuse, PAF/hx PE not on anticoagulation 2 to GI bleed, mood disorder, chronic thrombocytopenia, history of esophageal varices per records, chronic anemia (baseline hemoglobin of 12), hypothyroidism, goiter. Last confinement September 2024 rapid A. fib, COVID-19 pneumonia. Patient discharged on diltiazem 30 mg p.o. 3 times daily which patient did not comply with. 2 weeks ago patient noted achy abdominal pain attributed to abdominal hernias. Umbilical hernia and right inguinal hernia on PCP exam as per documentation. Outpatient abdominal ultrasound requested. Outpatient General Surgery consultation scheduled after 2 weeks. Patient had worsening achy abdominal pain and distention the last week. Abdominal pain going to the chest with some shortness of breath as per patient. Some nausea and emesis as per patient. No diarrhea. No fever, no chills. Usual cough symptoms as per patient. PCP offered to move General surgery appointment earlier. Patient went to ER for worsening symptoms. Noted to be in rapid A. fib. IV Cardizem started at the ER. Patient subsequently converted to NSR. Medical History as above Surgical History : Cholecystectomy Family History : Leukemia, thyroid cancer, heart disease Personal/Social history : Ongoing tobacco/alcohol abuse, disabled Allergies Allergy/AdvReac Type Severity Reaction Status Date / Time fentanyl Allergy Intermediate RASH ALL Verified 12/30/20 22:02 OVER BODY Home Medications Medication Instructions Recorded Confirmed Type No Known Home Medications 12/12/20 12/30/20 History Past Med/Surg History Medical History (Updated 12/31/20 @ 00:48 by Bandar Haji) Abdominal pain Alcohol abuse Alcohol dependence Alcohol intoxication Alcoholic cirrhosis of liver without ascites Atrial fibrillation Breathlessness Chronic anxiety Chronic obstructive pulmonary disease Chronic pancreatitis COPD, mild Esophageal varices Hypertension Hypomagnesemia Hypothyroidism Myocardial Infarction On home oxygen therapy Paroxysmal atrial fibrillation Pulmonary embolism Seizure Syncope Surgical History H/O colonoscopy History of cholecystectomy "2009" History of esophagogastroduodenoscopy (EGD) "12/15/2014- Small varices. Erosive duodenitis." 01/09/17 - esophageal varicies, gastritis Family History Mother Diabetes Father Coronary heart disease Social History Smoking Status: Current every day smoker Tobacco Type: Cigarettes Cigarettes Per Day: 4; Second Hand Exposure: No; Hx Alcohol Use: Yes Alcohol type: beer Alcohol Intake Frequency Comment: 4 32 oz ren[employer] life daily Hx Substance Use: No Preferred Language: Kittitian Communication Ability: Effective Visual Impairment: No Limitations [employer] Operator Required: No Beliefs That Will Affect Care: None marital status: Current Living Situation: Parent Current Living Situation Comment: parents Other Information That Helps Us Care for You: No Feels Safe at Home: Yes Safety Concerns: Feels Safe At This Time Assistive Devices: Oxygen - Continuous Review of Systems Review of Systems: As per HPI, all 10 systems reviewed, all other ROS negative Physical Exam Physical Exam: GENERAL: Slightly uncomfortable, alcoholic fetor, no respiratory distress SKIN: Pallor, warm HEENT: Pale palpebral conjunctivae, no ptosis, dry buccal mucosa NECK : Supple, thyroid enlargement, no tenderness CHEST : Decreased breath sounds, no tenderness HEART : Tachycardic, irregular, no obvious murmurs ABDOMEN: distention, umbilical hernia, central abdominal tenderness, positive fluid wave EXTREMITIES : Minimal LE swelling, no LE tenderness, no other conspicuous deformities noted NEUROLOGIC : Coherent, no facial asymmetry, no other gross focality Results & Data Results & Data ([facility]) Vital Signs (Past 12 Hours) Vital Signs Temp Pulse Resp BP Pulse Ox 12/30/20 21:30 122 H 22 113/78 96 12/30/20 21:23 118 H 24 110/87 94 12/30/20 21:18 125 H 24 96/76 L 90 12/30/20 21:13 137 H 20 116/72 91 12/30/20 21:10 144 H 21 97/68 L 92 12/30/20 20:14 91 H 19 123/81 95 12/30/20 17:53 36.8 C 89 20 127/81 98 12/30/20 17:49 96 12/30/20 17:45 90 12 127/81 95 Laboratory Results Laboratory Results WBC 4.92 K/uL (4.8-10.8) 12/30/20 19:04 RBC 3.38 M/uL (4.7-6.1) L 12/30/20 19:04 Hgb 12.6 g/dL (14.0-18.0) L 12/30/20 19:04 Hct 35.2 % (42-52) L 12/30/20 19:04 MCV 104.1 fL (80-100) H 12/30/20 19:04 MCH 37.3 pg (25-34) H 12/30/20 19:04 MCHC 35.8 g/dL (32-36) 12/30/20 19:04 RDW Std Deviation 54.5 fL (36.4-46.3) H 12/30/20 19:04 RDW Coeff of Hernandez 14.2 % (11.5-14.5) 12/30/20 19:04 Plt Count 75 K/uL (130-400) L 12/30/20 19:04 MPV 11.0 fL (7.4-10.4) H 12/30/20 19:04 Neutrophils % (Manual) 42.6 % 12/30/20 19:04 Lymphocytes % (Manual) 29.6 % 12/30/20 19:04 Monocytes % (Manual) 4.3 % 12/30/20 19:04 Eosinophils % (Manual) 3.5 % 12/30/20 19:04 Basophils % (Manual) 4.3 % 12/30/20 19:04 Neutrophils # (Manual) 2.10 K/uL (1.4-6.5) 12/30/20 19:04 Total Absolute Neuts 2.10 K/uL (1.4-6.5) 12/30/20 19:04 Lymphocytes # (Manual) 1.46 K/uL (1.2-3.4) 12/30/20 19:04 Total Abs Lymphocytes 2.23 K/uL (1.2-3.4) 12/30/20 19:04 Monocytes # (Manual) 0.21 K/uL (0.11-0.59) 12/30/20 19:04 Eosinophils # (Manual) 0.17 K/uL (0-0.5) 12/30/20 19:04 Basophils # (Manual) 0.21 K/uL (0-0.2) H 12/30/20 19:04 Large Granular Lymphs 15.7 % 12/30/20 19:04 # Lrg Granular Lymphs 0.77 K/uL 12/30/20 19:04 Platelet Estimate Decreased (Normal) L 12/30/20 19:04 Echinocytes 1+ 12/30/20 19:04 Sodium 141 mmol/L (136-145) 12/30/20 19:04 Potassium 3.4 mmol/L (3.5-5.1) L 12/30/20 19:04 Chloride 109 mmol/L (98-107) H 12/30/20 19:04 Carbon Dioxide 26 mmol/L (21-32) 12/30/20 19:04 Anion Gap 6.0 (3-11) 12/30/20 19:04 BUN 4 mg/dl (7-18) L 12/30/20 19:04 Creatinine 0.77 mg/dl (0.6-1.4) 12/30/20 19:04 Est Cr Clr Drug Dosing Not Reportable 12/30/20 19:04 Est GFR ( Amer) 117.6 12/30/20 19:04 Est GFR (Non-Af Amer) 101.4 12/30/20 19:04 BUN/Creatinine Ratio 4.8 (10-20) L 12/30/20 19:04 Glucose 86 mg/dl (70-99) 12/30/20 19:04 Calcium 8.3 mg/dl (8.5-10.1) L 12/30/20 19:04 Total Bilirubin 5.2 mg/dl (0.2-1) H 12/30/20 19:04 Direct Bilirubin 1.5 mg/dl (0-0.2) H 12/30/20 19:04 AST 70 U/L (15-37) H 12/30/20 19:04 ALT 23 U/L (12-78) 12/30/20 19:04 Alkaline Phosphatase 117 U/L (45-117) 12/30/20 19:04 Total Protein 7.4 gm/dl (6.4-8.2) 12/30/20 19:04 Albumin 2.0 gm/dl (3.4-5.0) L 12/30/20 19:04 Lipase 207 U/L (73-393) 12/30/20 19:04 COVID-19 Eval Order CovFluRsv at [facility] 12/30/20 22:[address] chest initial read: Enlarged central pulmonary arteries suggesting hypertension. No PE. Aortic and coronary atherosclerosis. Subsegmental basilar atelectasis. Mild COPD. Thyroid enlargement. Cirrhosis with upper abdominal ascites. Gynecomastia. CT abdomen pelvis initial read: Redemonstrated cirrhosis with evidence of portal hypertension including esophageal varices and spontaneous mesenteric right renal venous shunt. Moderate to large volume ascites similar to previous exam. Increasing fluid distention of an indirect right inguinal hernia. Cholecystectomy. No biliary dilatation. No GI or urinary tract obstruction. Ascending colonic wall thickening is again noted which may reflect portal colopathy. Unremarkable appendix. EKG as per my interpretation: Rate 145, A. fib, normal axis, T wave abnormalities inferior leads
[2020-12-30] MEDS ORDERED: THIAMINE HCL 100 MG in SYRINGE 9 ML IV STA (22:28)
[2020-12-30 22:34] LABS: Magnesium 1.8 mg/dl (1.8-2.4); NT Pro B Type Natriuretic Pept 239 pg/ml (0-900)
[2020-12-30 23:10] LABS: Prothrombin Time 19.3 Seconds (9.0-12.0)
[2020-12-30] MEDS ORDERED: AMIODARONE IV BOLUS & DRIP IV STA (23:14)
[2020-12-30] MEDS ORDERED: 0.2 MICRON FILTER SET 1 EA IV ONE (23:14)
[2020-12-30] MEDS ORDERED: AMIODARONE / D5W 150 MG/100 ML BAG IV STA (23:14)
[2020-12-30] MEDS ORDERED: AMIODARONE / D5W 360 MG/200 ML BAG IV ONE (23:14)
[2020-12-30 23:35] LABS: Influenza A virus by PCR Negative (Neg); Influenza B virus by PCR Negative (Neg); RSV by PCR Negative (Neg); SARS CoV2 RNA(COVID-19) InHosp NEGATIVE (Negative)
[2020-12-30] MEDS ORDERED: OPTIRAY 320 125ml IV ONE (23:36)
--- NOTE | 2020-12-31 00:42 | Emergency Department Note ---
History of Present Illness General Chief Complaint: Abdominal Pain Stated Complaint: UPPER GASTRIC PAIN, CHEST PAIN Time Seen by Provider: 12/30/20 18:12 History of Present Illness Provider Complaint: abdominal pain Onset (ago): 1 day(s) Pain Consistency: constant Location: epigastric Radiation: none Severity: moderate Maximum Pain Intensity: 5 Current Pain Intensity: 5 Quality: + aching Relieved By: + nothing Exacerbated By: + nothing Context: + history of similar episodes Associated Symptoms: + nausea and + vomiting; no diarrhea, no fever, no chills, no constipation, no dysuria, no hematemesis, no hematochezia, no melena, no hematuria, no headache, no neck pain, no back pain, no chest pain and no breathing difficulty Patient states he only had 1 beer today prior to arrival Home Medications Medication Instructions Recorded Confirmed Type No Known Home Medications 12/12/20 12/30/20 History Allergies Allergy/AdvReac Type Severity Reaction Status Date / Time fentanyl Allergy Intermediate RASH ALL Verified 12/30/20 22:02 OVER BODY Past Med/Surg History Medical History (Updated 12/31/20 @ 00:48 by Bandar Haji) Abdominal pain Alcohol abuse Alcohol dependence Alcohol intoxication Alcoholic cirrhosis of liver without ascites Atrial fibrillation Breathlessness Chronic anxiety Chronic obstructive pulmonary disease Chronic pancreatitis COPD, mild Esophageal varices Hypertension Hypomagnesemia Hypothyroidism Myocardial Infarction On home oxygen therapy Paroxysmal atrial fibrillation Pulmonary embolism Seizure Syncope Surgical History H/O colonoscopy History of cholecystectomy "2009" History of esophagogastroduodenoscopy (EGD) "12/15/2014- Small varices. 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 Beliefs That Will Affect Care: None marital status: Current Living Situation: Family Current Living Situation Comment: parents Feels Safe at Home: Yes Assistive Devices: None Review of Systems A total of 10 systems reviewed and were otherwise negative Physical Exam Vital Signs: Vital Signs - 24 hr 12/30/20 17:45 12/30/20 17:49 12/30/20 17:53 Temperature 36.8 C Temperature Source Temporal Artery Sc an Pulse Rate 90 89 Pulse Rate from Sp O2 Sensor 89 Pulse Rhythm Regular Pulse Strength Normal Respiratory Rate 12 20 Respiratory Effort / Characteristics Non-Labored Sponta neous Respiratory Depth Normal Respiratory Patter n Regular Blood Pressure 127/81 127/81 Blood Pressure Christi n 96 96 Blood Pressure Pos ition Sitting Pulse Oximetry 95 96 98 Oxygen Delivery Me thod Room Air Room Air Sepsis Recent Feve r Within 48 Hours No Sepsis New/Unexpla ined Change in Men sienna Status No Sepsis Action Take n by Nursing No Action Required 12/30/20 20:14 12/30/20 21:10 12/30/20 21:13 Temperature Temperature Source Pulse Rate 91 H 144 H 137 H Pulse Rate from Sp O2 Sensor 86 133 H 122 H Pulse Rhythm Pulse Strength Respiratory Rate 19 21 20 Respiratory Effort / Characteristics Respiratory Depth Respiratory Patter n Blood Pressure 123/81 97/68 L 116/72 Blood Pressure Christi n 95 77 86 Blood Pressure Pos ition Pulse Oximetry 95 92 91 Oxygen Delivery Me thod Sepsis Recent Feve r Within 48 Hours Sepsis New/Unexpla ined Change in Men sienna Status Sepsis Action Take n by Nursing 12/30/20 21:18 12/30/20 21:23 12/30/20 21:30 Temperature Temperature Source Pulse Rate 125 H 118 H 122 H Pulse Rate from Sp O2 Sensor 125 H 121 H 121 H Pulse Rhythm Pulse Strength Respiratory Rate 24 24 22 Respiratory Effort / Characteristics Respiratory Depth Respiratory Patter n Blood Pressure 96/76 L 110/87 113/78 Blood Pressure Christi n 82 94 89 Blood Pressure Pos ition Pulse Oximetry 90 94 96 Oxygen Delivery Me thod Sepsis Recent Feve r Within 48 Hours Sepsis New/Unexpla ined Change in Men sienna Status Sepsis Action Take n by Nursing 12/30/20 21:45 12/30/20 22:00 12/30/20 22:15 Temperature Temperature Source Pulse Rate 128 H 144 H 127 H Pulse Rate from Sp O2 Sensor 128 H 125 H 116 H Pulse Rhythm Pulse Strength Respiratory Rate 20 21 18 Respiratory Effort / Characteristics Respiratory Depth Respiratory Patter n Blood Pressure 113/81 114/86 110/71 Blood Pressure Christi n 91 95 84 Blood Pressure Pos ition Pulse Oximetry 94 94 91 Oxygen Delivery Me thod Sepsis Recent Feve r Within 48 Hours Sepsis New/Unexpla ined Change in Men sienna Status Sepsis Action Take n by Nursing 12/30/20 22:30 12/30/20 22:45 12/30/20 22:59 Temperature Temperature Source Pulse Rate 138 H 85 Pulse Rate from Sp O2 Sensor 129 H 84 Pulse Rhythm Pulse Strength Respiratory Rate 23 24 24 Respiratory Effort / Characteristics Respiratory Depth Respiratory Patter n Blood Pressure 105/77 108/70 120/77 Blood Pressure Christi n 86 82 91 Blood Pressure Pos ition Pulse Oximetry 92 93 Oxygen Delivery Me thod Sepsis Recent Feve r Within 48 Hours Sepsis New/Unexpla ined Change in Men sienna Status Sepsis Action Take n by Nursing 12/30/20 23:00 12/30/20 23:15 12/30/20 23:34 Temperature Temperature Source Pulse Rate 82 80 75 Pulse Rate from Sp O2 Sensor 82 81 75 Pulse Rhythm Pulse Strength Respiratory Rate 20 19 20 Respiratory Effort / Characteristics Respiratory Depth Respiratory Patter n Blood Pressure 116/77 106/71 111/71 Blood Pressure Christi n 90 82 84 Blood Pressure Pos ition Pulse Oximetry 94 94 97 Oxygen Delivery Me thod Sepsis Recent Feve r Within 48 Hours Sepsis New/Unexpla ined Change in Men sienna Status Sepsis Action Take n by Nursing Physical Exam: Physical Exam GENERAL: He is oriented to person, place, and time. He appears well-developed and well-nourished. He does not appear distressed. HENT: Exam performed. - Head: Normocephalic and atraumatic. - Right Ear: External ear normal. No mastoid tenderness. - Left Ear: External ear normal. No mastoid tenderness. - Mouth/Throat: The oropharynx is clear and moist. No trismus in the jaw. No dental abscesses or uvula swelling. No oropharyngeal exudate or tonsillar abscesses. EYES: Conjunctivae and EOM are normal. Pupils are equal, round, and reactive to light. Right eye exhibits no discharge. Left eye exhibits no discharge. No scleral icterus. NECK: Normal range of motion. Neck supple. No JVD present. No spinous process tenderness present. No carotid bruit present. No rigidity. No tracheal deviation and normal range of motion present. No Brudzinski's sign and no Kernig's sign noted. CV: Normal rate, regular rhythm, normal heart sounds and intact distal pulses. There is no peripheral edema. Palpable radial pulses bue. PULM/CHEST: Effort normal and breath sounds normal. No respiratory distress. No stridor. He has no wheezes. He has no rales. - Chest Wall: He exhibits no tenderness. ABD: The abdomen is soft. Bowel sounds are normal. He has mild distension. No mass is present. There is no tenderness. There is no rebound, no guarding, no Carrasco's sign and no tenderness at McBurney's point. Rovsig negative. No fluid wave. MUSC/SKEL: Normal range of motion. There is no peripheral edema, tenderness or deformity. LYMPH: No cervical adenopathy. NEURO: He is alert and oriented to person, place, and time. He has normal strength. No cranial nerve deficit or sensory deficit. Coordination and gait n ormal. GCS eye subscore is 4. GCS verbal subscore is 5. GCS motor subscore is 6. Cerebellar tests wnl. SKIN: Skin is warm and dry. He is not diaphoretic. PSYCH: He has a normal mood and affect. Behavior is normal. Judgment and thought content normal. Course Course 1811: The patient was evaluated in room C11. A complete history and physical exam was performed Cardiac monitoring: An order was placed for continuous cardiac monitoring. The monitor shows a rate of 90 with sinus rhythm 5: Called to bed by nursing. Patient did go into atrial fibrillation with RVR on the monitor. Is thought that this could be due to the patient only having 1 beer today. 2 mg of Ativan were given to the patient but did not improve his heart rate or his rhythm. Cardizem bolus 15 mg ordered but did not improve the patient's heart rate. Repeat bolus of 20 mg was ordered for the patient which improved the patient's heart rate. Patient was started on Cardizem drip. It is thought that the patient's heart rate and irregular rhythm and acutely going into A. fib with RVR is due to alcohol withdrawal as he stated he only had 1 beer today. Labs and imaging are within normal limits. Patient will be admitted to the [facility] team Dr. Griffith has been notified. Administered Medications Diltiazem HCl 125 mg/ Dextrose 125 mls @ 10 mls/hr IV .[id number] ARMANDO; Protocol Stop: 01/29/21 21:14 Last Titration: 12/30/20 21:52 Dose: 10 mg/hr, 10 mls/hr Documented by: [id number] Cosigned by: [id number] Admin: 12/30/20 21:32 Dose: 5 mg/hr, 5 mls/hr Documented by: [id number] Cosigned by: [id number] Discontinued Medications Diltiazem HCl (Diltiazem Hcl 5 Mg/Ml 5 Ml Vial) 20 mg IV NOW STA Stop: 12/30/20 21:03 Last Admin: 12/30/20 21:10 Dose: 15 mg Documented by: [id number] Cosigned by: [id number] Diltiazem HCl (Diltiazem Hcl 5 Mg/Ml 5 Ml Vial) 15 mg IV NOW STA Stop: 12/30/20 21:11 Last Admin: 12/30/20 21:21 Dose: 20 mg Documented by: [id number] Cosigned by: [id number] Diltiazem HCl (Diltiazem Hcl 30 Mg Tab) 30 mg PO NOW ONE Stop: 12/30/20 22:26 Last Admin: 12/30/20 23:53 Dose: 30 mg Documented by: [id number] Gabapentin (Gabapentin 600 Mg Tab) 1,200 mg PO NOW STA Stop: 12/30/20 22:24 Last Admin: 12/30/20 23:53 Dose: 1,200 mg Documented by: [id number] Lorazepam (Ativan) 1 mg in 2 mls @ 2 mls/min IV NOW STA Stop: 12/30/20 20:47 Last Admin: 12/30/20 20:51 Dose: 2 mls/min Documented by: [id number] Lorazepam (Ativan) 1 mg in 2 mls @ 2 mls/min IV NOW STA Stop: 12/30/20 21:02 Last Admin: 12/30/20 21:10 Dose: 2 mls/min Documented by: [id number] Sodium Chloride (Nss 1000ml) 1,000 mls @ 999 mls/hr IV .Q1H1M ONE Stop: 12/30/20 22:05 Last Admin: 12/30/20 21:06 Dose: 999 mls/hr Documented by: [id number] Thiamine HCl 100 mg/ Syringe 10 mls @ 2 mls/min IV NOW STA Stop: 12/30/20 22:32 Last Admin: 12/30/20 23:54 Dose: 2 mls/min Documented by: [id number] Magnesium Sulfate/Dextrose (Magnesium Sulfate / D5w) 1 gm in 100 mls @ 50 mls/hr IV ONE ONE Stop: 12/31/20 00:00 Last Admin: 12/30/20 23:52 Dose: 50 mls/hr Documented by: [id number] Ioversol (Optiray 320 125ml) 119 ml IV ONCE ONE Stop: 12/30/20 23:37 Last Admin: 12/30/20 23:36 Dose: 119 ml Documented by: [id number] Ondansetron HCl (Ondansetron Inj 2 Mg/Ml 2 Ml Vial) 4 mg IV NOW STA Stop: 12/30/20 18:51 Last Admin: 12/30/20 19:16 Dose: 4 mg Documented by: [id number] Potassium Chloride (Potassium Chloride Crtab 20 Meq Tabcr) 60 meq PO NOW STA Stop: 12/30/20 21:58 Last Admin: 12/30/20 23:53 Dose: 60 meq Documented by: [id number] Medical Decision Making Laboratory Data Result diagrams: 12/30/20 19:04 12/30/20 19:04 Lab Results 12/30/20 12/30/20 12/30/20 Range/Units 19:04 19:04 22:00 WBC 4.92 (4.8-10.8) K/uL RBC 3.38 L (4.7-6.1) M/uL Hgb 12.6 L (14.0-18.0) g/dL Hct 35.2 L (42-52) % MCV 104.1 H (80-100) fL MCH 37.3 H (25-34) pg MCHC 35.8 (32-36) g/dL RDW Std Deviation 54.5 H (36.4-46.3) fL RDW Coeff of Hernandez 14.2 (11.5-14.5) % Plt Count 75 L (130-400) K/uL MPV 11.0 H (7.4-10.4) fL Neutrophils % (Manual) 42.6 % Lymphocytes % (Manual) 29.6 % Monocytes % (Manual) 4.3 % Eosinophils % (Manual) 3.5 % Basophils % (Manual) 4.3 % Neutrophils # (Manual) 2.10 (1.4-6.5) K/uL Total Absolute Neuts 2.10 (1.4-6.5) K/uL Lymphocytes # (Manual) 1.46 (1.2-3.4) K/uL Total Abs Lymphocytes 2.23 (1.2-3.4) K/uL Monocytes # (Manual) 0.21 (0.11-0.59) K/uL Eosinophils # (Manual) 0.17 (0-0.5) K/uL Basophils # (Manual) 0.21 H (0-0.2) K/uL Large Granular Lymphs 15.7 % # Lrg Granular Lymphs 0.77 K/uL Platelet Estimate Decreased L (Normal) Echinocytes 1+ PT (9.0-12.0) Seconds INR (0.9-1.1) Sodium 141 (136-145) mmol/L Potassium 3.4 L (3.5-5.1) mmol/L Chloride 109 H (98-107) mmol/L Carbon Dioxide 26 (21-32) mmol/L Anion Gap 6.0 (3-11) BUN 4 L (7-18) mg/dl Creatinine 0.77 (0.6-1.4) mg/dl Est Cr Clr Drug Dosing Not Reportable Est GFR ( Amer) 117.6 Est GFR (Non-Af Amer) 101.4 BUN/Creatinine Ratio 4.8 L (10-20) Glucose 86 (70-99) mg/dl Calcium 8.3 L (8.5-10.1) mg/dl Magnesium 1.8 (1.8-2.4) mg/dl Total Bilirubin 5.2 H (0.2-1) mg/dl Direct Bilirubin 1.5 H (0-0.2) mg/dl AST 70 H (15-37) U/L ALT 23 (12-78) U/L Alkaline Phosphatase 117 (45-117) U/L Troponin I 0.030 (0-0.045) ng/ml NT-Pro-B Natriuret Pep 239 (0-900) pg/ml Total Protein 7.4 (6.4-8.2) gm/dl Albumin 2.0 L (3.4-5.0) gm/dl Lipase 207 (73-393) U/L Ethyl Alcohol mg/dL (0-3) mg/dl COVID-19 Eval Order CovFluRsv at [facility] SARS-CoV-2 (PCR) (Negative) Influenza Type A (PCR) (Neg) Influenza Type B (PCR) (Neg) RSV (RT-PCR) (Neg) 12/30/20 12/30/20 12/30/20 Range/Units 22:00 22:36 22:36 WBC (4.8-10.8) K/uL RBC (4.7-6.1) M/uL Hgb (14.0-18.0) g/dL Hct (42-52) % MCV (80-100) fL MCH (25-34) pg MCHC (32-36) g/dL RDW Std Deviation (36.4-46.3) fL RDW Coeff of Hernandez (11.5-14.5) % Plt Count (130-400) K/uL MPV (7.4-10.4) fL Neutrophils % (Manual) % Lymphocytes % (Manual) % Monocytes % (Manual) % Eosinophils % (Manual) % Basophils % (Manual) % Neutrophils # (Manual) (1.4-6.5) K/uL Total Absolute Neuts (1.4-6.5) K/uL Lymphocytes # (Manual) (1.2-3.4) K/uL Total Abs Lymphocytes (1.2-3.4) K/uL Monocytes # (Manual) (0.11-0.59) K/uL Eosinophils # (Manual) (0-0.5) K/uL Basophils # (Manual) (0-0.2) K/uL Large Granular Lymphs % # Lrg Granular Lymphs K/uL Platelet Estimate (Normal) Echinocytes PT 19.3 H (9.0-12.0) Seconds INR 2.0 H (0.9-1.1) Sodium (136-145) mmol/L Potassium (3.5-5.1) mmol/L Chloride (98-107) mmol/L Carbon Dioxide (21-32) mmol/L Anion Gap (3-11) BUN (7-18) mg/dl Creatinine (0.6-1.4) mg/dl Est Cr Clr Drug Dosing Est GFR ( Amer) Est GFR (Non-Af Amer) BUN/Creatinine Ratio (10-20) Glucose (70-99) mg/dl Calcium (8.5-10.1) mg/dl Magnesium (1.8-2.4) mg/dl Total Bilirubin (0.2-1) mg/dl Direct Bilirubin (0-0.2) mg/dl AST (15-37) U/L ALT (12-78) U/L Alkaline Phosphatase (45-117) U/L Troponin I (0-0.045) ng/ml NT-Pro-B Natriuret Pep (0-900) pg/ml Total Protein (6.4-8.2) gm/dl Albumin (3.4-5.0) gm/dl Lipase (73-393) U/L Ethyl Alcohol mg/dL 249.0 H (0-3) mg/dl COVID-19 Eval Order SARS-CoV-2 (PCR) NEGATIVE (Negative) Influenza Type A (PCR) Negative (Neg) Influenza Type B (PCR) Negative (Neg) RSV (RT-PCR) Negative (Neg) Imaging Data Radiologist's Impression: PA CHEST RADIOGRAPH AND UPRIGHT AND SUPINE AP RADIOGRAPHS OF THE ABDOMEN CLINICAL HISTORY: Epigastric pain. COMPARISON STUDY: Chest radiograph and abdominal series December 12, 2020. FINDINGS: Lung volumes are normal. No pneumothorax or pleural effusion is noted. Upper mediastinal widening is due to an enlarged thyroid as shown on prior chest CT. Cardiomediastinal silhouette is stable. Enlargement of the bilateral surinder is due to pulmonary arteries, as shown on prior exam. Mild interstitial thickening persists. There is no free air. The bowel gas pattern is normal. There are cholecystectomy clips. IMPRESSION: 1. No free air or evidence of bowel obstruction. 2. Persistent interstitial thickening which may reflect mild pulmonary edema or an infectious process. ACT 112: Negative or not required by law. Electronically signed by: Chuy Rodríguez M.D. 12/30/2020 7:55 PM Dictated: 12/30/201952Transcribed: 12/30/201952 ECG Data Additional Comments: EKG #1 at 2037: Atrial fibrillation with a rate of 147. QRS 88. QTc 513. No ST elevation or ST depression. EKG #2 at 2118 status post 2 IV boluses of Cardizem: Atrial flutter with a rate of 110. QRS and QTc intervals within normal limits. No ST elevation or ST depression. [facility] Narrative 1812: The patient was evaluated in room C11. A complete history and physical exam was performed Cardiac monitoring: An order was placed for continuous cardiac monitoring. The monitor shows a rate of 90 with sinus rhythm 5: Called to bed by nursing. Patient did go into atrial fibrillation with RVR on the monitor. Is thought that this could be due to the patient only having 1 beer today. 2 mg of Ativan were given to the patient but did not improve his heart rate or his rhythm. Cardizem bolus 15 mg ordered but did not improve the patient's heart rate. Repeat bolus of 20 mg was ordered for the patient which improved the patient's heart rate. Patient was started on Cardizem drip. It is thought that the patient's heart rate and irregular rhythm and acutely going into A. fib with RVR is due to alcohol withdrawal as he stated he only had 1 beer today. Labs and imaging are within normal limits. [facility]. Impression & Plan Alcohol withdrawal, Atrial fibrillation with rapid ventricular response Critical Care Time Critical Care Time: Yes Total Critical Care Time: 56 I have personally spent greater than 56 minutes of critical care time in the direct management of this patient. This includes bedside care, interpretation of diagnostic studies, and testing, discussion with consultants, patient, and family members, and other required patient management activities. This 56 minutes is in excess of all separately billable procedures. Discharge Plan Visit Data Chief Complaint: Abdominal Pain Stated Complaint: UPPER GASTRIC PAIN, CHEST PAIN ED Provider: Bandar Haji Discharge Problem: Alcohol withdrawal, Atrial fibrillation with rapid ventricular response Patient Disposition: Admitted As Inpatient Discharge Instructions Interventions: ED Discharge Assessment Last Done: 12/31/20 00:29 Discharge Problem: Alcohol withdrawal Qualifiers: Complication of substance-induced condition: with unspecified complication Qualified Code(s): F10.239 - Alcohol dependence with withdrawal, unspecified
[2020-12-31] MEDS ORDERED: PROMETHAZINE HCL 12.5 MG in SODIUM CHLORIDE 0.9% 50 ML IV PRN (01:11)
[2020-12-31] MEDS ORDERED: GABAPENTIN 1200MG ALCOHOL WITHDRAWAL LOAD PO STA (01:11)
[2020-12-31] MEDS ORDERED: SODIUM CHLORIDE 0.9% 250 ML IV PRN (01:11)
[2020-12-31] MEDS ORDERED: ATIVAN IV ALCOHOL WITHDRAWL IV PRN (01:11)
[2020-12-31] MEDS ORDERED: PHYTONADIONE 10 MG in SODIUM CHLORIDE 0.9% 50 ML IV ONE (01:15)
[2020-12-31] MEDS ORDERED: INFLUENZA ADMINISTRATION CHARGE ONE (01:23)
[2020-12-31] MEDS ORDERED: INFLUENZA VIRUS QUAD VACCINE 0.5 ML SYR IM ONE (01:23)
[2020-12-31] MEDS: FOLIC ACID 1 MG TAB PO SCH ×2 (02:21→08:45)
[2020-12-31] MEDS: THIAMINE HCL 100 MG TAB PO SCH ×2 (02:21→08:44)
[2020-12-31] MEDS: ALBUMIN 25% 12.5 GM/50 ML VIAL IV SCH ×6 (02:23→17:55)
[2020-12-31] MEDS: cefTRIAXone SODIUM 1,000 MG in DEXTROSE 5% 50 ML IV SCH (02:28)
[2020-12-31 05:13] LABS: Appearance Urine Clear (Clear); Bacteria Urine Automated Negative (Negative); Bilirubin Urine Negative (Negative); Blood Urine Trace (Negative); Cast Urine Automated 0 /lpf (0-5); Color Urine Dark Yellow; Epithelial Cell Urine Auto 0-5 /lpf (0-5); Glucose Urine UA Negative (Negative); Ketones Urine Negative (Negative); Leukocyte Esterase Urine Negative (Negative); Nitrite Urine Negative (Negative); Protein Urine Negative (Negative); RBC Urine Automated 0-4 /hpf (0-4); Specific Gravity Urine > 1.045 (1.000-1.030); Urobilinogen Urine Positive (Negative); WBC Urine Automated 0 /hpf (0-5); pH Urine 7.5 (4.5-7.5)
[2020-12-31] MEDS ORDERED: AMIODARONE / D5W 360 MG/200 ML BAG IV SCH (05:15)
[2020-12-31] MEDS: GABAPENTIN 600 MG TAB PO SCH ×3 (05:16→21:48)
[2020-12-31] MEDS: ACETAMINOPHEN 325 MG TAB PO PRN (05:58)
[2020-12-31] MEDS ORDERED: dilTIAZem HCl 5 MG/ML 5 ML VIAL IV STA (06:11)
--- NOTE | 2020-12-31 08:07 | CT Scan Report ---
ABDOMEN AND PELVIS CT WITH IV CONTRAST CT DOSE: 736.19 mGy.cm HISTORY: Generalized abdominal pain. Nausea. Vomiting. TECHNIQUE: Multiaxial CT images of the abdomen and pelvis were performed following the use of intrave nous contrast. A dose lowering technique was utilized adhering to the principles of ALARA. COMPARISON STUDY: Abdomen and pelvis CT 10/03/2020. FINDINGS: Please refer the same day chest CT for further evaluation of the lung bases. No pneumoperit oneum. No pneumatosis. Old left pubic ring fracture. Old right posterior rib fracture. Nodular contou r to the liver consistent with cirrhosis. Cholecystectomy. The spleen and adrenal glands are unremark able. Upper abdominal varicosities including paraesophageal varices likely secondary to the cirrhosis . The main portal vein and splenic vein appear patent. The pancreas and kidneys are unremarkable. Lar ge right hydrocele, unchanged. Colonic diverticulosis. No evidence for acute diverticulitis. No bowel obstruction. Mild thickening of the ascending colon, unchanged. This favors portal colopathy. Normal appendix. Moderate ascites. This is similar to the prior study. IMPRESSION: 1. Redemonstration of the cirrhosis with evidence of portal hypertension including upper abdominal/pa raesophageal varices. 2. Moderate ascites, unchanged. 3. Right-sided hydrocele, unchanged. 4. Mild thickening of the ascending colon, unchanged. This favors portal colopathy. No evidence for b owel obstruction. ACT 112: Negative or not required by law. Electronically signed by: Villa Clinton M.D. 12/31/2020 8:06 AM
--- NOTE | 2020-12-31 08:21 | Gastrointestinal Consultation ---
Date of Consultation December 31, 2020 Assessment & Plan (1) Alcoholic cirrhosis of liver with ascites: 55-year-old male with alcoholic cirrhosis with active EtOH use, complicated by ascites, esophageal varices, ? HE, portal hypertension, chronic pancreatitis, thrombocytopenia, PAF, history of medical noncompliance, admitted with chest/abd pain, found to have A-fib with RVR, and GI consulted for ascites. He describes chronic abdominal pain, in the setting of abdominal wall hernias, and apparently is to have surgery evaluation for this. With his ascites, would like to rule out SBP. He appears fatigued today but doesn't appear overtly encephalopathic as he has no asterixis and is AAO x 3. Unclear if he is compliant with home meds. Abd soft with moderate ascites, VSS. - Agree with paracentesis when feasible, please administer albumin 25 g before and after, please send fluid for cell count and culture - ABX as per primary service - Should be on Lasix 40 mg daily and Aldactone 100 mg daily for h/o ascites - Xifaxan 550 mg BID with ? h/o HE - Meld is 20, Madrey's DF is elevated at 38; unclear if steroids would be of benefit at this point - Appreciate cardiology and primary service mgmt of A-fib - Watch for EtOh withdrawal - Encouraged EtOH cessation; consider referral to AA/rehab - Low NA diet, less than 2G daily - Less than 2G Tylenol containing products if using - No NSAIDs - Recommend GI f/u as an outpt for ongoing mgmt of his cirrhosis Decompensations: Varices: none on most recent EGD 04/2020 Ascites: Last tap 11/15/20 with 5 L, no SBP. Previous SAAG 0.8, portal htn not necessary cause of ascites. FluidNEGATIVE FOR MALIGNANCY HE: Is rx'd Xifaxan Screenings: MELD 20 12/31/20 Age: 54 years HCC: Should have q 6 months, had contrasted abd CT this admission with no mention of HCC Varices: 2021 Immunizations:Immune to HepA/HepB Thank you for allowing us to participate in the care of this patient. Please call with any acute changes, questions or concerns. Please see addendum below with additional recommendation from my supervising physician. Supervising Physician Co-Signing Physician Notes I saw and evaluated the patient. Patient has a long history of alcoholic liver disease and typically follows with our clinic but is known to be noncompliant with medications and follow-up recommendations. He presented for abdominal distention and discomfort and underwent paracentesis this afternoon. Physical examination No obvious distress, patient appears much older than stated age Fluid wave noted Impression: Patient with a history of alcoholic liver disease resulting in portal hypertension and ascites presenting with him overload. Await results from paracentesis today to see if patient has underlying SBP. Would recommend resumption of his outpatient diuretic therapy in addition to a low-sodium diet History of Present Illness Reason for Consultation: ascites Attending Physician: Norma Barrera, History of Present Illness This is a 54-year-old male w/ history of alcoholic liver cirrhosis with ascites, esophageal varices portal hypertension, COPD, alcohol abuse, tobacco abuse, chronic pancreatitis, thrombocytopenia due to hypersplenism; PAF, history of medical noncompliance, follows with our service as an outpt for his cirrhosis and is rx'd Lasix, Aldactone, and Xifaxan though unclear if he is taking; last paracentesis 11/15 with 5 L removed; no h/o SBP. He's been having issues with abdominal discomfort in the setting of abd wall hernias and was supposed to see surgery about that yesterday but didn't go to his appt. He presented to the ER yesterday with complaints of chest and abd pain x 3 days along with nonbloody vomiting, nausea. In the ER had A-fib with RVR; was started on diltiazem and converted to NSR. Labs notable for HGB 12.6, WBC 4K, PLT 70 5K, NA 141, K3.4, renal function WNL, T bili 5.2, AST 70, with normal ALT and alk phos, albumin 2.0, lipase 207, INR 2.0. Calculated meld is 20, (was 19 in 05/2020), Maddreys = 38. CTAP with no acute findings, noted for cirrhosis, paraesophageal varices, moderate ascites, findings concerning for portal colopathy, no bowel obstruction. Plan is for paracentesis today, with albumin ordered. He was started on ceftriaxone for concern of SBP given abdominal pain. He was given Vit K. HGB 10.6, plt 62, WBC 5, K 3.4. VSS with low-normal BP. He describes his abdominal pain has been going on for 6 months, is constant and daily, typically periumbilical, does not improve or worsen with eating or BMs. States he has approximately 3 BMs daily, typically soft and brown. He continues to drink ETOH but has cut back; was drinking 32 oz beer daily; states he had 1 beer yesterday. Denies melena, hematochezia, hematemesis, fevers or chills, confusion or falls, leg edema. EGD 04/2020:Z-line regular, 38 cm from the incisors.Portal hypertensive gastropathy. Normal examined duodenum Colonoscopy 04/2020:Non-thrombosed external hemorrhoids found on digital rectal exam.The examined portion of the ileum was normal. Moderate diverticulosis in the sigmoid colon and in the descending colon. Internal hemorrhoids. Allergies Allergy/AdvReac Type Severity Reaction Status Date / Time fentanyl Allergy Intermediate RASH ALL Verified 12/30/20 22:02 OVER BODY Home Medications Medication Instructions Recorded Confirmed Type No Known Home Medications 12/12/20 12/30/20 History Patient History Medical History (Updated 12/31/20 @ 00:48 by Bandar Haji) Abdominal pain Alcohol abuse Alcohol dependence Alcohol intoxication Alcoholic cirrhosis of liver without ascites Atrial fibrillation Breathlessness Chronic anxiety Chronic obstructive pulmonary disease Chronic pancreatitis COPD, mild Esophageal varices Hypertension Hypomagnesemia Hypothyroidism Myocardial Infarction On home oxygen therapy Paroxysmal atrial fibrillation Pulmonary embolism Seizure Syncope Surgical History H/O colonoscopy History of cholecystectomy "2009" History of esophagogastroduodenoscopy (EGD) "12/15/2014- Small varices. 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: No Beliefs That Will Affect Care: None marital status: Current Living Situation: Parent Current Living Situation Comment: parents Other Information That Helps Us Care for You: No Feels Safe at Home: Yes Safety Concerns: Feels Safe At This Time Assistive Devices: Oxygen - Continuous Review of Systems Review of Systems: No lightheadedness or dizziness No fevers, chills, sweats No trouble swallowing Chest pain as above No cough, shortness of breath, had COVID in 09/2020 No rashes or other skin lesions; has jaundice No new joint pain, swelling, myalgias No edema No bleeding tendencies or excessive bruising Physical Exam Constitutional: well developed and + ill appearing; no acute distress Eyes: + icterus Respiratory: normal respiratory effort, lungs clear to auscultation Cardiovascular: Rate/Rhythm: regular rate and regular rhythm Gastrointestinal (Abdomen): moderate nontense ascites, generalized abdominal tenderness, more so in the midline, no rebound or guarding, no caput medusae Skin: no rashes, warm and dry + jaundice Psychiatric: somewhat fatigued; prefers to have eyes closed, when asked he opens eyes and is alert and oriented x 3; no asterixis Results & Data ([facility]) Vital Signs (Past 12 Hours) Vital Signs Temp Pulse Pulse Resp BP BP Pulse Ox 12/31/20 07:13 36.5 C 83 18 107/61 93 12/31/20 06:13 36.4 C L 110 H 18 120/73 94 12/31/20 05:43 36.3 C L 72 18 111/73 97 12/31/20 05:28 36.4 C L 77 18 102/68 97 12/31/20 05:11 36.4 C L 81 20 109/69 97 12/31/20 04:12 36.5 C 73 16 108/71 99 12/31/20 02:25 36.4 C L 80 17 105/68 94 12/31/20 01:55 36.4 C L 76 19 105/69 92 12/31/20 01:40 36.5 C 76 18 101/70 93 12/31/20 01:11 12/31/20 01:10 82 12/31/20 01:00 36.5 C 82 20 117/76 96 12/31/20 00:00 81 28 H 116/72 97 12/30/20 23:45 74 16 103/68 99 12/30/20 23:34 75 20 111/71 97 12/30/20 23:15 80 19 106/71 94 03/25/21 23:00 82 20 116/77 94 12/30/20 22:59 85 24 120/77 93 12/30/20 22:45 24 108/70 12/30/20 22:30 138 H 23 105/77 92 12/30/20 22:15 127 H 18 110/71 91 12/30/20 22:00 144 H 21 114/86 94 12/30/20 21:45 128 H 20 113/81 94 12/30/20 21:30 122 H 22 113/78 96 12/30/20 21:23 118 H 24 110/87 94 12/30/20 21:18 125 H 24 96/76 L 90 12/30/20 21:13 137 H 20 116/72 91 12/30/20 21:10 144 H 21 97/68 L 92 Pulse Ox 12/31/20 07:13 12/31/20 06:13 12/31/20 05:43 12/31/20 05:28 12/31/20 05:11 12/31/20 04:12 12/31/20 02:25 12/31/20 01:55 12/31/20 01:40 12/31/20 01:11 93 12/31/20 01:10 12/31/20 01:00 12/31/20 00:00 12/30/20 23:45 12/30/20 23:34 12/30/20 23:15 12/30/20 23:00 12/30/20 22:59 12/30/20 22:45 12/30/20 22:30 12/30/20 22:15 12/30/20 22:00 12/30/20 21:45 12/30/20 21:30 12/30/20 21:23 12/30/20 21:18 12/30/20 21:13 12/30/20 21:10 Laboratory Results 12/31/20 12/31/20 12/31/20 Range/Units 09:08 09:08 09:08 WBC (4.8-10.8) K/uL RBC (4.7-6.1) M/uL Hgb (14.0-18.0) g/dL Hct (42-52) % MCV (80-100) fL MCH (25-34) pg MCHC (32-36) g/dL RDW Std Deviation (36.4-46.3) fL RDW Coeff of Hernandez (11.5-14.5) % Plt Count (130-400) K/uL MPV (7.4-10.4) fL Immature Gran % (Auto) % Neut % (Auto) % Lymph % (Auto) % Mason % (Auto) % Eos % (Auto) % Baso % (Auto) % Neut # (Auto) (1.4-6.5) K/uL Lymph # (Auto) (1.2-3.4) K/uL Mason # (Auto) (0.11-0.59) K/uL Eos # (Auto) (0-0.5) K/uL Baso # (Auto) (0-0.2) K/uL Immature Gran # (Auto) (0.00-0.02) K/uL Neutrophils % (Manual) % Lymphocytes % (Manual) % Monocytes % (Manual) % Eosinophils % (Manual) % Basophils % (Manual) % Neutrophils # (Manual) (1.4-6.5) K/uL Total Absolute Neuts (1.4-6.5) K/uL Lymphocytes # (Manual) (1.2-3.4) K/uL Total Abs Lymphocytes (1.2-3.4) K/uL Monocytes # (Manual) (0.11-0.59) K/uL Eosinophils # (Manual) (0-0.5) K/uL Basophils # (Manual) (0-0.2) K/uL Large Granular Lymphs % # Lrg Granular Lymphs K/uL Platelet Estimate (Normal) Echinocytes PT (9.0-12.0) Seconds INR (0.9-1.1) Sodium 141 (136-145) mmol/L Potassium Pending (3.5-5.1) mmol/L Chloride 111 H (98-107) mmol/L Carbon Dioxide 23 (21-32) mmol/L Anion Gap 7.0 (3-11) BUN 4 L (7-18) mg/dl Creatinine 0.61 (0.6-1.4) mg/dl Est Cr Clr Drug Dosing 117.6 Est GFR ( Amer) 129.4 Est GFR (Non-Af Amer) 111.6 BUN/Creatinine Ratio 6.1 L (10-20) Glucose 72 (70-99) mg/dl Calcium 8.0 L (8.5-10.1) mg/dl Magnesium (1.8-2.4) mg/dl Total Bilirubin 6.2 H (0.2-1) mg/dl Direct Bilirubin (0-0.2) mg/dl AST 61 H (15-37) U/L ALT 21 (12-78) U/L Alkaline Phosphatase 86 (45-117) U/L Ammonia 46.5 H (11-32) umol/L Troponin I (0-0.045) ng/ml NT-Pro-B Natriuret Pep (0-900) pg/ml Total Protein 6.3 L (6.4-8.2) gm/dl Albumin 2.1 L (3.4-5.0) gm/dl Globulin 4.2 H (2.5-4.0) gm/dl Albumin/Globulin Ratio 0.5 L (0.9-2) Lipase (73-393) U/L TSH Cancelled 5.480 H (0.300-4.500) uIu/ml Urine Color Urine Appearance (Clear) Urine pH (4.5-7.5) Ur Specific [place] (1.000-1.030) Urine Protein (Negative) Urine Glucose (UA) (Negative) Urine Ketones (Negative) Urine Blood (Negative) Urine Nitrite (Negative) Urine Bilirubin (Negative) Urine Urobilinogen (Negative) Ur Leukocyte Esterase (Negative) Urine WBC (Auto) (0-5) /hpf Urine RBC (Auto) (0-4) /hpf U Hyaline Cast (Auto) (0-5) /lpf U Epithel Cells (Auto) (0-5) /lpf Urine Bacteria (Auto) (Negative) Ethyl Alcohol mg/dL (0-3) mg/dl COVID-19 Eval Order SARS-CoV-2 (PCR) (Negative) Influenza Type A (PCR) (Neg) Influenza Type B (PCR) (Neg) RSV (RT-PCR) (Neg) 12/31/20 12/31/20 12/30/20 Range/Units 09:08 09:08 22:36 WBC 5.11 (4.8-10.8) K/uL RBC 2.91 L (4.7-6.1) M/uL Hgb 10.6 L (14.0-18.0) g/dL Hct 31.2 L (42-52) % MCV 107.2 H (80-100) fL MCH 36.4 H (25-34) pg MCHC 34.0 (32-36) g/dL RDW Std Deviation 56.3 H (36.4-46.3) fL RDW Coeff of Hernandez 14.5 (11.5-14.5) % Plt Count 62 L (130-400) K/uL MPV 11.0 H (7.4-10.4) fL Immature Gran % (Auto) 0.2 % Neut % (Auto) 56.0 % Lymph % (Auto) 26.4 % Mason % (Auto) 11.7 % Eos % (Auto) 3.9 % Baso % (Auto) 1.8 % Neut # (Auto) 2.86 (1.4-6.5) K/uL Lymph # (Auto) 1.35 (1.2-3.4) K/uL Mason # (Auto) 0.60 H (0.11-0.59) K/uL Eos # (Auto) 0.20 (0-0.5) K/uL Baso # (Auto) 0.09 (0-0.2) K/uL Immature Gran # (Auto) 0.01 (0.00-0.02) K/uL Neutrophils % (Manual) % Lymphocytes % (Manual) % Monocytes % (Manual) % Eosinophils % (Manual) % Basophils % (Manual) % Neutrophils # (Manual) (1.4-6.5) K/uL Total Absolute Neuts (1.4-6.5) K/uL Lymphocytes # (Manual) (1.2-3.4) K/uL Total Abs Lymphocytes (1.2-3.4) K/uL Monocytes # (Manual) (0.11-0.59) K/uL Eosinophils # (Manual) (0-0.5) K/uL Basophils # (Manual) (0-0.2) K/uL Large Granular Lymphs % # Lrg Granular Lymphs K/uL Platelet Estimate (Normal) Echinocytes PT 17.7 H (9.0-12.0) Seconds INR 1.8 H (0.9-1.1) Sodium (136-145) mmol/L Potassium (3.5-5.1) mmol/L Chloride (98-107) mmol/L Carbon Dioxide (21-32) mmol/L Anion Gap (3-11) BUN (7-18) mg/dl Creatinine (0.6-1.4) mg/dl Est Cr Clr Drug Dosing Est GFR ( Amer) Est GFR (Non-Af Amer) BUN/Creatinine Ratio (10-20) Glucose (70-99) mg/dl Calcium (8.5-10.1) mg/dl Magnesium (1.8-2.4) mg/dl Total Bilirubin (0.2-1) mg/dl Direct Bilirubin (0-0.2) mg/dl AST (15-37) U/L ALT (12-78) U/L Alkaline Phosphatase (45-117) U/L Ammonia (11-32) umol/L Troponin I (0-0.045) ng/ml NT-Pro-B Natriuret Pep (0-900) pg/ml Total Protein (6.4-8.2) gm/dl Albumin (3.4-5.0) gm/dl Globulin (2.5-4.0) gm/dl Albumin/Globulin Ratio (0.9-2) Lipase (73-393) U/L TSH (0.300-4.500) uIu/ml Urine Color Urine Appearance (Clear) Urine pH (4.5-7.5) Ur Specific [place] (1.000-1.030) Urine Protein (Negative) Urine Glucose (UA) (Negative) Urine Ketones (Negative) Urine Blood (Negative) Urine Nitrite (Negative) Urine Bilirubin (Negative) Urine Urobilinogen (Negative) Ur Leukocyte Esterase (Negative) Urine WBC (Auto) (0-5) /hpf Urine RBC (Auto) (0-4) /hpf U Hyaline Cast (Auto) (0-5) /lpf U Epithel Cells (Auto) (0-5) /lpf Urine Bacteria (Auto) (Negative) Ethyl Alcohol mg/dL 249.0 H (0-3) mg/dl COVID-19 Eval Order SARS-CoV-2 (PCR) (Negative) Influenza Type A (PCR) (Neg) Influenza Type B (PCR) (Neg) RSV (RT-PCR) (Neg) 12/30/20 12/30/20 12/30/20 Range/Units 22:36 22:00 22:00 WBC (4.8-10.8) K/uL RBC (4.7-6.1) M/uL Hgb (14.0-18.0) g/dL Hct (42-52) % MCV (80-100) fL MCH (25-34) pg MCHC (32-36) g/dL RDW Std Deviation (36.4-46.3) fL RDW Coeff of Hernandez (11.5-14.5) % Plt Count (130-400) K/uL MPV (7.4-10.4) fL Immature Gran % (Auto) % Neut % (Auto) % Lymph % (Auto) % Mason % (Auto) % Eos % (Auto) % Baso % (Auto) % Neut # (Auto) (1.4-6.5) K/uL Lymph # (Auto) (1.2-3.4) K/uL Mason # (Auto) (0.11-0.59) K/uL Eos # (Auto) (0-0.5) K/uL Baso # (Auto) (0-0.2) K/uL Immature Gran # (Auto) (0.00-0.02) K/uL Neutrophils % (Manual) % Lymphocytes % (Manual) % Monocytes % (Manual) % Eosinophils % (Manual) % Basophils % (Manual) % Neutrophils # (Manual) (1.4-6.5) K/uL Total Absolute Neuts (1.4-6.5) K/uL Lymphocytes # (Manual) (1.2-3.4) K/uL Total Abs Lymphocytes (1.2-3.4) K/uL Monocytes # (Manual) (0.11-0.59) K/uL Eosinophils # (Manual) (0-0.5) K/uL Basophils # (Manual) (0-0.2) K/uL Large Granular Lymphs % # Lrg Granular Lymphs K/uL Platelet Estimate (Normal) Echinocytes PT 19.3 H (9.0-12.0) Seconds INR 2.0 H (0.9-1.1) Sodium (136-145) mmol/L Potassium (3.5-5.1) mmol/L Chloride (98-107) mmol/L Carbon Dioxide (21-32) mmol/L Anion Gap (3-11) BUN (7-18) mg/dl Creatinine (0.6-1.4) mg/dl Est Cr Clr Drug Dosing Est GFR ( Amer) Est GFR (Non-Af Amer) BUN/Creatinine Ratio (10-20) Glucose (70-99) mg/dl Calcium (8.5-10.1) mg/dl Magnesium (1.8-2.4) mg/dl Total Bilirubin (0.2-1) mg/dl Direct Bilirubin (0-0.2) mg/dl AST (15-37) U/L ALT (12-78) U/L Alkaline Phosphatase (45-117) U/L Ammonia (11-32) umol/L Troponin I (0-0.045) ng/ml NT-Pro-B Natriuret Pep (0-900) pg/ml Total Protein (6.4-8.2) gm/dl Albumin (3.4-5.0) gm/dl Globulin (2.5-4.0) gm/dl Albumin/Globulin Ratio (0.9-2) Lipase (73-393) U/L TSH (0.300-4.500) uIu/ml Urine Color Urine Appearance (Clear) Urine pH (4.5-7.5) Ur Specific [place] (1.000-1.030) Urine Protein (Negative) Urine Glucose (UA) (Negative) Urine Ketones (Negative) Urine Blood (Negative) Urine Nitrite (Negative) Urine Bilirubin (Negative) Urine Urobilinogen (Negative) Ur Leukocyte Esterase (Negative) Urine WBC (Auto) (0-5) /hpf Urine RBC (Auto) (0-4) /hpf U Hyaline Cast (Auto) (0-5) /lpf U Epithel Cells (Auto) (0-5) /lpf Urine Bacteria (Auto) (Negative) Ethyl Alcohol mg/dL (0-3) mg/dl COVID-19 Eval Order CovFluRsv at [facility] SARS-CoV-2 (PCR) NEGATIVE (Negative) Influenza Type A (PCR) Negative (Neg) Influenza Type B (PCR) Negative (Neg) RSV (RT-PCR) Negative (Neg) 12/30/20 12/30/20 12/30/20 Range/Units 19:04 19:04 04:50 WBC 4.92 (4.8-10.8) K/uL RBC 3.38 L (4.7-6.1) M/uL Hgb 12.6 L (14.0-18.0) g/dL Hct 35.2 L (42-52) % MCV 104.1 H (80-100) fL MCH 37.3 H (25-34) pg MCHC 35.8 (32-36) g/dL RDW Std Deviation 54.5 H (36.4-46.3) fL RDW Coeff of Hernandez 14.2 (11.5-14.5) % Plt Count 75 L (130-400) K/uL MPV 11.0 H (7.4-10.4) fL Immature Gran % (Auto) % Neut % (Auto) % Lymph % (Auto) % Mason % (Auto) % Eos % (Auto) % Baso % (Auto) % Neut # (Auto) (1.4-6.5) K/uL Lymph # (Auto) (1.2-3.4) K/uL Mason # (Auto) (0.11-0.59) K/uL Eos # (Auto) (0-0.5) K/uL Baso # (Auto) (0-0.2) K/uL Immature Gran # (Auto) (0.00-0.02) K/uL Neutrophils % (Manual) 42.6 % Lymphocytes % (Manual) 29.6 % Monocytes % (Manual) 4.3 % Eosinophils % (Manual) 3.5 % Basophils % (Manual) 4.3 % Neutrophils # (Manual) 2.10 (1.4-6.5) K/uL Total Absolute Neuts 2.10 (1.4-6.5) K/uL Lymphocytes # (Manual) 1.46 (1.2-3.4) K/uL Total Abs Lymphocytes 2.23 (1.2-3.4) K/uL Monocytes # (Manual) 0.21 (0.11-0.59) K/uL Eosinophils # (Manual) 0.17 (0-0.5) K/uL Basophils # (Manual) 0.21 H (0-0.2) K/uL Large Granular Lymphs 15.7 % # Lrg Granular Lymphs 0.77 K/uL Platelet Estimate Decreased L (Normal) Echinocytes 1+ PT (9.0-12.0) Seconds INR (0.9-1.1) Sodium 141 (136-145) mmol/L Potassium 3.4 L (3.5-5.1) mmol/L Chloride 109 H (98-107) mmol/L Carbon Dioxide 26 (21-32) mmol/L Anion Gap 6.0 (3-11) BUN 4 L (7-18) mg/dl Creatinine 0.77 (0.6-1.4) mg/dl Est Cr Clr Drug Dosing Not Reportable Est GFR ( Amer) 117.6 Est GFR (Non-Af Amer) 101.4 BUN/Creatinine Ratio 4.8 L (10-20) Glucose 86 (70-99) mg/dl Calcium 8.3 L (8.5-10.1) mg/dl Magnesium 1.8 (1.8-2.4) mg/dl Total Bilirubin 5.2 H (0.2-1) mg/dl Direct Bilirubin 1.5 H (0-0.2) mg/dl AST 70 H (15-37) U/L ALT 23 (12-78) U/L Alkaline Phosphatase 117 (45-117) U/L Ammonia (11-32) umol/L Troponin I 0.030 (0-0.045) ng/ml NT-Pro-B Natriuret Pep 239 (0-900) pg/ml Total Protein 7.4 (6.4-8.2) gm/dl Albumin 2.0 L (3.4-5.0) gm/dl Globulin (2.5-4.0) gm/dl Albumin/Globulin Ratio (0.9-2) Lipase 207 (73-393) U/L TSH (0.300-4.500) uIu/ml Urine Color Dark Yellow Urine Appearance Clear (Clear) Urine pH 7.5 (4.5-7.5) Ur Specific [place] > 1.045 H (1.000-1.030) Urine Protein Negative (Negative) Urine Glucose (UA) Negative (Negative) Urine Ketones Negative (Negative) Urine Blood Trace H (Negative) Urine Nitrite Negative (Negative) Urine Bilirubin Negative (Negative) Urine Urobilinogen Positive H (Negative) Ur Leukocyte Esterase Negative (Negative) Urine WBC (Auto) 0 (0-5) /hpf Urine RBC (Auto) 0-4 (0-4) /hpf U Hyaline Cast (Auto) 0 (0-5) /lpf U Epithel Cells (Auto) 0-5 (0-5) /lpf Urine Bacteria (Auto) Negative (Negative) Ethyl Alcohol mg/dL (0-3) mg/dl COVID-19 Eval Order SARS-CoV-2 (PCR) (Negative) Influenza Type A (PCR) (Neg) Influenza Type B (PCR) (Neg) RSV (RT-PCR) (Neg) Diagnostic Findings CTAP 1. Remonstration of the cirrhosis with evidence of portal hypertension including upper abdominal/paraesophageal varices. 2. Moderate ascites, unchanged. 3. Right-sided hydrocele, unchanged. 4. Mild thickening of the ascending colon, unchanged. This favors portal colopathy. No evidence for bowel obstruction. CXR: 1. No free air or evidence of bowel obstruction. 2. Persistent interstitial thickening which may reflect mild pulmonary edema or an infectious process.
--- NOTE | 2020-12-31 08:22 | CT Scan Report ---
CT ANGIOGRAPHY OF THE CHEST, PULMONARY EMBOLUS PROTOCOL CLINICAL HISTORY: Nausea. Vomiting. Epigastric pain. COMPARISON STUDY: Chest CT October 03, 2020. Chest radiograph December 30, 2020. TECHNIQUE: Following IV administration of 119 mL of Optiray-320, helical axial images of the chest we re obtained utilizing the pulmonary embolus protocol. Maximal intensity projections and sagittal and coronal reformats were viewed on an independent 3D workstation. IV contrast was administered withou t complication. Automated exposure control was utilized for the study. A dose lowering technique wa s utilized adhering to the principles of ALARA. FINDINGS: The thyroid is markedly enlarged. This is partially imaged on this exam. Visualized portio ns are unchanged. Prominent mediastinal and bilateral hilar lymph nodes are similar to prior examinat ion. Note is made of mild cardiomegaly. There is no pericardial effusion. The central pulmonary arter ies are dilated. No pulmonary emboli are identified. There is no pneumothorax. Subpleural opacities w ithin lungs reflect atelectasis. There is no significant pleural effusion. Interlobular septal thicke hector is noted. Groundglass opacity shown on prior CT of October 03, 2020 hours resolved. A healing r ight ninth rib fracture is noted. Abdomen and pelvis will be reported separately. IMPRESSION: 1. No pulmonary emboli identified. 2. Dilated central pulmonary arteries suggestive of pulmonary arterial hypertension. 3. Mild interstitial edema. Resolution of groundglass opacities shown on prior exam. 4. No significant change in prominent mediastinal and bilateral hilar lymph nodes. ACT 112: Negative or not required by law. Electronically signed by: Chuy Rodríguez M.D. 12/31/2020 8:20 AM
[2020-12-31] MEDS: dilTIAZem HCL 30 MG TAB PO SCH ×3 (08:45→21:48)
[2020-12-31] MEDS: MULTIVITAMIN TAB PO SCH (08:45)
[2020-12-31] MEDS ORDERED: POTASSIUM CHLORIDE CRTAB 20 MEQ TABCR PO STA (09:04)
[2020-12-31 09:24] LABS: Hematocrit (blood only) 31.2 % (42-52); Hemoglobin 10.6 g/dL (14.0-18.0); Mean Corpuscular Hemoglobin 36.4 pg (25-34); Mean Corpuscular Volume 107.2 fL (80-100); RDW Coefficient of Variation 14.5 % (11.5-14.5); RDW Standard Deviation 56.3 fL (36.4-46.3); Red Blood Count 2.91 M/uL (4.7-6.1); White Blood Count 5.11 K/uL (4.8-10.8)
[2020-12-31 09:36] LABS: INR 1.8 (0.9-1.1); Prothrombin Time 17.7 Seconds (9.0-12.0)
[2020-12-31 09:39] LABS: Platelet Count 62 K/uL (130-400)
[2020-12-31 09:56] LABS: Albumin Level 2.1 gm/dl (3.4-5.0); BUN Creatinine Ratio 6.1 (10-20); Creatinine Clr Calc Pharmacy 117.6 ml/min; Est GFR (African American) 129.4; Est GFR (Non-African American) 111.6
[2020-12-31 10:07] LABS: Basophils # (auto) 0.09 K/uL (0-0.2); Basophils % (auto) 1.8 %; Eosinophils % (auto) 3.9 %; Immature Granulocytes # (auto) 0.01 K/uL (0.00-0.02); Immature Granulocytes % (auto) 0.2 %; Lymphocytes # (auto) 1.35 K/uL (1.2-3.4); Lymphocytes % (auto) 26.4 %; Monocytes % (auto) 11.7 %; Neutrophils # (auto) 2.86 K/uL (1.4-6.5)
--- NOTE | 2020-12-31 10:07 | Cardiology Consultation ---
Date of Consultation December 31, 2020 Assessment & Plan (1) Atrial fibrillation with RVR: During the patient's last admission at the end of September for Covid he had atrial fibrillation with RVR and was started on diltiazem with success. Patient did not get continue this medication after discharge. When he presented initially for this admission he had some atrial fibrillation with RVR and converted spontaneously to normal sinus rhythm after a bolus of diltiazem IV. He has now been started on diltiazem 30 mg every 8 hours and is maintaining mostly sinus rhythm. I would be certain that his electrolytes are optimized. He is not a candidate for anticoagulation due to his history of alcoholism, compliance and GI bleeding from esophageal varices. (2) Alcohol abuse: Watch for alcohol withdrawal. (3) Alcoholic cirrhosis of liver with ascites: Supportive care and encouragement to stop alcohol. History of Present Illness Attending Physician: Norma Barrera DO History of Present Illness The patient is a 55-year-old male who is well-known to our service from previous admission. The patient has a history of alcoholism with alcohol liver cirrhosis, esophageal varices and previous GI bleeding. Earlier this year he had a hospital admission for Covid and during that admission he had paroxysmal atrial fibrillation that was treated with diltiazem. Patient was discharged home but never continued the outpatient diltiazem. He was admitted this time with abdominal discomfort and was noted to be in atrial fibrillation with RVR that once again spontaneously converted with diltiazem bolus. He has now been restarted on his oral diltiazem and is maintaining sinus rhythm. Allergies Allergy/AdvReac Type Severity Reaction Status Date / Time fentanyl Allergy Intermediate RASH ALL Verified 12/30/20 22:02 OVER BODY Home Medications Medication Instructions Recorded Confirmed Type No Known Home Medications 12/12/20 12/30/20 History Patient History Medical History (Updated 01/01/21 @ 09:28 by Norma Barrera DO) Abdominal pain Alcohol abuse Alcohol dependence Alcohol intoxication Alcoholic cirrhosis of liver without ascites Atrial fibrillation Breathlessness Chronic anxiety Chronic obstructive pulmonary disease Chronic pancreatitis COPD, mild Esophageal varices Hypertension Hypomagnesemia Hypothyroidism Myocardial Infarction On home oxygen therapy Paroxysmal atrial fibrillation Pulmonary embolism Seizure Syncope Surgical History H/O colonoscopy History of cholecystectomy "2009" History of esophagogastroduodenoscopy (EGD) "12/15/2014- Small varices. 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 Beliefs That Will Affect Care: None marital status: Current Living Situation: Parent Current Living Situation Comment: parents Other Information That Helps Us Care for You: No Feels Safe at Home: Yes Safety Concerns: Feels Safe At This Time Assistive Devices: Oxygen - Continuous Results & Data ([facility]) Vital Signs (Past 12 Hours) Vital Signs Temp Pulse Pulse Resp BP BP Pulse Ox 12/31/20 08:13 36.6 C 85 18 106/67 94 12/31/20 07:13 36.5 C 83 18 107/61 93 12/31/20 06:13 36.4 C L 110 H 18 120/73 94 12/31/20 05:43 36.3 C L 72 18 111/73 97 12/31/20 05:28 36.4 C L 77 18 102/68 97 12/31/20 05:11 36.4 C L 81 20 109/69 97 12/31/20 04:12 36.5 C 73 16 108/71 99 12/31/20 02:25 36.4 C L 80 17 105/68 94 12/31/20 01:55 36.4 C L 76 19 105/69 92 12/31/20 01:40 36.5 C 76 18 101/70 93 12/31/20 01:11 12/31/20 01:10 82 12/31/20 01:00 36.5 C 82 20 117/76 96 12/31/20 00:00 81 28 H 116/72 97 12/30/20 23:45 74 16 103/68 99 12/30/20 23:34 75 20 111/71 97 12/30/20 23:15 80 19 106/71 94 03/25/21 23:00 82 20 116/77 94 12/30/20 22:59 85 24 120/77 93 12/30/20 22:45 24 108/70 12/30/20 22:30 138 H 23 105/77 92 12/30/20 22:15 127 H 18 110/71 91 Pulse Ox 12/31/20 08:13 12/31/20 07:13 12/31/20 06:13 12/31/20 05:43 12/31/20 05:28 12/31/20 05:11 12/31/20 04:12 12/31/20 02:25 12/31/20 01:55 12/31/20 01:40 12/31/20 01:11 93 12/31/20 01:10 12/31/20 01:00 12/31/20 00:00 12/30/20 23:45 12/30/20 23:34 12/30/20 23:15 12/30/20 23:00 12/30/20 22:59 12/30/20 22:45 12/30/20 22:30 12/30/20 22:15
--- NOTE | 2020-12-31 10:07 | Hospitalist Progress Note ---
Date of Service December 31, 2020 Assessment & Plan (1) Atrial fibrillation with rapid ventricular response: etiologies include but not limited to alcohol intoxication/withdrawal, potential abdominal infection. Admitted with elevated alcohol level. Heart rate improved with cardizem. Patient has a h/o afib during his last admission to the hospital when he was infected with COVID-19. Cardiology has seen the patient and he is not a candidate for anticoagulation 2/2 h/o alcoholism, h/o noncompliance with medical therapy and GI bleeding from esophageal varices. He is notably autoanticoagulated from severe liver disease with an INR 1.8-2.0 this admission. Cont scheduled diltiazem. Intermittent sinus rhythm/afib on telemetry review overnight. (2) Alcoholic cirrhosis of liver with ascites: Ascites with abdominal pain present. Planned for paracentesis later today. Patient receiving periprocedural albumin and GI following. Receiving empiric ceftriaxone. (3) Abdominal pain: concern for SBP, rule out with paracentesis, plan as above. (4) Alcohol abuse: Counseled to quit, he states he is not interested in rehab at this time and he can quit by substituting chocolate milk for alcohol when he gets home. (5) Alcohol intoxication: supportive care, monitor for withdrawal symptoms. Gabapentin protocol. (6) Multiple thyroid nodules: Recently found to have marked bilateral lobe thyroid enlargeent by CT scan during an ER visit with several nodular densities of the supracalvicular and retroclavicular region concerning for neoplastic process. He was referred to ENT but has not been compliant with this. Workup is pending. Counseling patient of the importance of this given the consideration of thyroid lymphoma in the differential diagnosis. (7) Thrombocytopenia due to hypersplenism: Related to liver disease. (8) Tobacco use disorder: Advise strongly to quit. (9) Protein calorie malnutrition: (10) Anemia: chronic and around his baseline. No evience of overt bleeding at this time. Cont to monitor. (11) Coagulopathy: Related to liver disease (12) DVT prophylaxis: SCDs, patient is autoanticoagulated Full Code Dispo-to home when medically stable DO [facility] Ad[facility] and Anticipated Discharge Date Admission Date: December 30, 2020 Subjective 55 yo M with h/o alcohol abuse presented with abdominal and chest pain x 3 days. He has a history of alcoholic cirrhosis and currently has a positive fluid wave. He reports persistent abdominal pain that appears generalized. He is taisha ewhat somnolent and history is limited although he is oriented. He denies fevers, chills, cough, and reports 3 BMs daily on average. Review of Systems Review of Systems: All systems reviewed & are unremarkable except as noted in Subjective Physical Exam Physical Exam: CONSTITUTIONAL: WNWD, vitals as above, generally somnolent and ill-appearing. EYES: pupils are round and equal bilaterally, normal conjunctivae, no scleral icterus ENT: external ear and nose normal, MMM RESPIRATORY: normal respiratory effort, coarse rhonchi at bases bilaterally, no wheezing or rales. CARDIOVASCULAR: regular rate and rhythm, S1 and 2 heard without murmurs, gallops or rubs, no JVD, no peripheral edema CHEST: inspection of chest was normal GASTROINTESTINAL: soft, diffuse tenderness to palpation, protuberant with positive fluid wave. MUSCULOSKELETAL: strength 5/5 throughout, head is normocephalic and atraumatic SKIN: warm and dry NEUROLOGIC: CN 2-12 grossly intact, +somnolent, normal speech, no gross focal deficits. PSYCHIATRIC: alert cooperative and oriented , answering questions appropriately. Results & Data Results & Data ([facility]) Vital Signs (Past 12 Hours) Vital Signs Temp Pulse Pulse Resp BP BP Pulse Ox 12/31/20 08:13 36.6 C 85 18 106/67 94 12/31/20 07:13 36.5 C 83 18 107/61 93 12/31/20 06:13 36.4 C L 110 H 18 120/73 94 12/31/20 05:43 36.3 C L 72 18 111/73 97 12/31/20 05:28 36.4 C L 77 18 102/68 97 12/31/20 05:11 36.4 C L 81 20 109/69 97 12/31/20 04:12 36.5 C 73 16 108/71 99 12/31/20 02:25 36.4 C L 80 17 105/68 94 12/31/20 01:55 36.4 C L 76 19 105/69 92 12/31/20 01:40 36.5 C 76 18 101/70 93 12/31/20 01:11 12/31/20 01:10 82 12/31/20 01:00 36.5 C 82 20 117/76 96 12/31/20 00:00 81 28 H 116/72 97 12/30/20 23:45 74 16 103/68 99 12/30/20 23:34 75 20 111/71 97 12/30/20 23:15 80 19 106/71 94 12/30/20 23:00 82 20 116/77 94 12/30/20 22:59 85 24 120/77 93 12/30/20 22:45 24 108/70 12/30/20 22:30 138 H 23 105/77 92 12/30/20 22:15 127 H 18 110/71 91 Pulse Ox 12/31/20 08:13 12/31/20 07:13 12/31/20 06:13 12/31/20 05:43 12/31/20 05:28 12/31/20 05:11 12/31/20 04:12 12/31/20 02:25 12/31/20 01:55 12/31/20 01:40 12/31/20 01:11 93 12/31/20 01:10 12/31/20 01:00 12/31/20 00:00 12/30/20 23:45 12/30/20 23:34 12/30/20 23:15 12/30/20 23:00 12/30/20 22:59 12/30/20 22:45 12/30/20 22:30 12/30/20 22:15 Laboratory Results Short CBC 12/30/20 12/31/20 Range/Units 19:04 09:08 WBC 4.92 5.11 (4.8-10.8) K/uL Hgb 12.6 L 10.6 L (14.0-18.0) g/dL Hct 35.2 L 31.2 L (42-52) % Plt Count 75 L 62 L (130-400) K/uL BMP 12/30/20 12/31/20 19:04 09:08 Sodium 141 141 Potassium 3.4 L Chloride 109 H 111 H Carbon Dioxide 26 23 BUN 4 L 4 L Creatinine 0.77 0.61 Glucose 86 72 Calcium 8.3 L 8.0 L Cardiac Enzymes 12/30/20 Range/Units 19:04 Troponin I 0.030 (0-0.045) ng/ml Liver Function 12/30/20 12/31/20 Range/Units 19:04 09:08 Total Bilirubin 5.2 H (0.2-1) mg/dl Direct Bilirubin 1.5 H (0-0.2) mg/dl AST 70 H 61 H (15-37) U/L ALT 23 21 (12-78) U/L Alkaline Phosphatase 117 (45-117) U/L Albumin 2.0 L 2.1 L (3.4-5.0) gm/dl Urine 12/30/20 Range/Units 04:50 Urine Color Dark Yellow Urine Appearance Clear (Clear) Urine pH 7.5 (4.5-7.5) Ur Specific [place] > 1.045 H (1.000-1.030) Urine Protein Negative (Negative) Urine Glucose (UA) Negative (Negative) Medications Administered Current Inpatient Medications Acetaminophen (Acetaminophen 325 Mg Tab) 325 mg PO Q6H PRN PRN Reason: Mild Pain Stop: 01/30/21 01:10 Last Admin: 12/31/20 05:58 Dose: 325 mg Documented by: Diltiazem HCl (Diltiazem Hcl 30 Mg Tab) [address] [facility] Stop: 01/30/21 08:59 Last Admin: 12/31/20 08:45 Dose: 30 mg Documented by: Folic Acid (Folic Acid 1 Mg Tab) [address] [facility] Stop: 01/30/21 01:10 Last Admin: 12/31/20 08:45 Dose: 1 mg Documented by: Gabapentin (Gabapentin 600 Mg Tab) 600 mg PO Q6H [facility] Stop: 12/31/20 12:01 Last Admin: 12/31/20 05:16 Dose: 600 mg Documented by: Gabapentin (Gabapentin 600 Mg Tab) 600 mg PO Q8H [facility] Stop: 01/01/21 14:01 Gabapentin (Gabapentin 600 Mg Tab) 600 mg PO Q12H [facility] Stop: 01/02/21 12:01 Gabapentin (Gabapentin 600 Mg Tab) 600 mg PO Q24H [facility] Stop: 01/03/21 12:01 Lorazepam (Ativan) 1 mg in 2 mls @ 2 mls/min IV UD PRN; Protocol PRN Reason: EtOH Withdrawl AWSS Score 6,7 Stop: 01/30/21 01:10 Lorazepam (Ativan) 3 mg in 6 mls @ 4 mls/min IV ONCE PRN; Protocol PRN Reason: EtOH Withdrawl AWSS Score >=10 Stop: 01/30/21 01:10 Albumin Human (Albumin 25%) 12.5 gm in 50 mls @ 50 mls/hr IV Q6H [facility] Stop: 01/03/21 05:59 Last Infusion: 12/31/20 06:19 Dose: Infused Documented by: Promethazine HCl 12.5 mg/ (Sodium Chloride) 50.5 mls @ 202 mls/hr IV Q6H PRN PRN Reason: Nausea And Vomiting Stop: 01/30/21 01:10 Lorazepam (Ativan) 2 mg in 4 mls @ 4 mls/min IV UD PRN; Protocol PRN Reason: EtOH Withdrawl AWSS Score 8,9 Stop: 01/30/21 01:10 Ceftriaxone Sodium 1,000 mg/ (Dextrose) 50 mls @ 100 mls/hr IV Q24H [facility]; Protocol Stop: 01/10/21 01:59 Last Infusion: 12/31/20 02:58 Dose: Infused Documented by: Sodium Chloride (Nss) 250 mls @ 15 mls/hr IV .[id number] PRN PRN Reason: For Transfusion Stop: 12/31/20 10:54 Multivitamins (Multivitamin Tab) 1 tab PO [facility] Stop: 01/30/21 08:59 Last Admin: 12/31/20 08:45 Dose: 1 tab Documented by: Oxycodone HCl (Oxycodone Hcl Ir 5 Mg Tab (Immediate Release)) 5 mg PO Q4H PRN PRN Reason: Pain Stop: 01/14/21 01:10 Thiamine HCl ([facility] Hcl 100 Mg Tab) [facility] Stop: 01/30/21 01:10 Last Admin: 12/31/20 08:44 Dose: 100 mg Documented by: (1) Alcohol intoxication Complication of substance-induced condition: uncomplicated Qualified Code(s): F10.920 - Alcohol use, unspecified with intoxication, uncomplicated
[2020-12-31 10:15] LABS: Albumin Globulin Ratio 0.5 (0.9-2); Bilirubin,Total 6.2 mg/dl (0.2-1); Globulin 4.2 gm/dl (2.5-4.0); Thyroid Stimulating Hormone 5.48 uIu/ml (0.300-4.500); Total Protein 6.3 gm/dl (6.4-8.2)
[2020-12-31] MEDS ORDERED: ALBUMIN 25% 12.5 GM/50 ML VIAL IV ONE (13:15)
--- NOTE | 2020-12-31 13:50 | Ultrasound Report ---
PARACENTESIS UNDER ULTRASOUND GUIDANCE CLINICAL HISTORY: ascites COMPARISON STUDY: No previous studies for comparison. FINDINGS: The risks, benefits, and alternatives to the procedure were discussed with the patient. Marilou altaf informed consent was obtained. Following real-time ultrasound localization, the skin was prepped and draped. Following local anesthesia with Xylocaine, the sheath paracentesis needle was inserted a nd approximately 3.1 liters of straw-colored fluid was removed by vacuum suction. A right lower quadr ant approach was utilized. The patient tolerated the procedure well and left the department in satisfactory condition. IMPRESSION: Successful ultrasound-guided paracentesis with removal of approximately 3.1 liters of asc itic fluid. ACT 112: Negative or not required by law. Electronically signed by: Charlie Kumar M.D. 12/31/2020 1:48 PM
[2020-12-31 14:55] LABS: Appearance Peritoneal Fluid CLEAR; Basophils, Fluid 0 %; Color Peritoneal Fluid YELLOW; Eosinophils, Fluid 0 %; Lymphocytes, Fluid 61 %; Mono,Macrophage,Mesothelial 26 %; Neutrophils, Fluid 13 %; RBC Peritoneal Fluid (A) < 3000 /uL; WBC Peritoneal Fluid (A) 276 /ul (0-300)
--- NOTE | 2020-12-31 15:52 | Electrocardiogram Report ---
Test Reason : Blood Pressure : / mmHG Vent. Rate : 091 BPM Atrial Rate : 091 BPM P-R Int : 132 ms QRS Dur : 084 ms QT Int : 404 ms P-R-T Axes : 071 076 079 degrees QTc Int : 496 ms Sinus rhythm with Premature atrial complexes Nonspecific ST abnormality Prolonged QT Abnormal ECG When compared with ECG of 06-OCT-2020 19:51, Premature atrial complexes are now Present T wave inversion now evident in Anterior leads Confirmed by Clement Ceballos ([id number]) on 12/31/2020 3:52:14 PM Referred By: REFERRED SELF Confirmed By:Brady Ceballos
--- NOTE | 2020-12-31 15:53 | Electrocardiogram Report ---
Test Reason : Blood Pressure : / mmHG Vent. Rate : 147 BPM Atrial Rate : 182 BPM P-R Int : 000 ms QRS Dur : 088 ms QT Int : 328 ms P-R-T Axes : 000 069 -21 degrees QTc Int : 513 ms Atrial fibrillation with rapid ventricular response Nonspecific ST and T wave abnormality Abnormal ECG When compared with ECG of 30-DEC-2020 17:49, (unconfirmed) Atrial fibrillation has replaced Sinus rhythm Vent. rate has increased BY 56 BPM Confirmed by Clement Ceballos ([id number]) on 12/31/2020 3:53:22 PM Referred By: REFERRED SELF Confirmed By:Brady Ceballos
--- NOTE | 2020-12-31 15:55 | Electrocardiogram Report ---
Test Reason : Blood Pressure : / mmHG Vent. Rate : 127 BPM Atrial Rate : 136 BPM P-R Int : 000 ms QRS Dur : 088 ms QT Int : 342 ms P-R-T Axes : 000 064 -34 degrees QTc Int : 497 ms Atrial fibrillation with rapid ventricular response Nonspecific ST and T wave abnormality Abnormal ECG When compared with ECG of 30-DEC-2020 20:38, (unconfirmed) No significant change was found Confirmed by Clement Ceballos ([id number]) on 12/31/2020 3:54:43 PM Referred By: REFERRED SELF Confirmed By:Brady Ceballos
--- NOTE | 2020-12-31 15:56 | Electrocardiogram Report ---
Test Reason : Blood Pressure : / mmHG Vent. Rate : 076 BPM Atrial Rate : 076 BPM P-R Int : 136 ms QRS Dur : 088 ms QT Int : 400 ms P-R-T Axes : 015 057 046 degrees QTc Int : 450 ms Normal sinus rhythm Abnormal ECG When compared with ECG of 30-DEC-2020 21:19, (unconfirmed) Sinus rhythm has replaced Atrial flutter Nonspecific T wave abnormality now evident in Anterior leads Confirmed by Clement Ceballos ([id number]) on 12/31/2020 3:56:01 PM Referred By: REFERRED SELF Confirmed By:Brady Ceballos
--- NOTE | 2020-12-31 15:57 | Electrocardiogram Report ---
Test Reason : Blood Pressure : / mmHG Vent. Rate : 110 BPM Atrial Rate : 319 BPM P-R Int : 000 ms QRS Dur : 090 ms QT Int : 352 ms P-R-T Axes : 000 064 015 degrees QTc Int : 476 ms Atrial fibrillation Nonspecific ST abnormality Abnormal ECG Confirmed by Clement Ceballos ([id number]) on 12/31/2020 3:57:05 PM Referred By: REFERRED SELF Confirmed By:Brady Ceballos
--- NOTE | 2020-12-31 15:59 | Electrocardiogram Report ---
Test Reason : Blood Pressure : / mmHG Vent. Rate : 081 BPM Atrial Rate : 081 BPM P-R Int : 164 ms QRS Dur : 096 ms QT Int : 360 ms P-R-T Axes : 024 065 048 degrees QTc Int : 418 ms Sinus rhythm with Premature atrial complexes Otherwise normal ECG When compared with ECG of 31-DEC-2020 05:01, (unconfirmed) Sinus rhythm has replaced atrial fibrillation Vent. rate has decreased BY [address] less depressed in Anterior leads T wave inversion no longer evident in Inferior leads Confirmed by Clement Ceballos ([id number]) on 12/31/2020 3:58:44 PM Referred By: REFERRED SELF Confirmed By:Brady Ceballos
--- NOTE | 2020-12-31 16:00 | Electrocardiogram Report ---
Test Reason : Blood Pressure : / mmHG Vent. Rate : 142 BPM Atrial Rate : 249 BPM P-R Int : 000 ms QRS Dur : 088 ms QT Int : 318 ms P-R-T Axes : 000 073 -48 degrees QTc Int : 489 ms Atrial flutter with variable A-V block Nonspecific ST and T wave abnormality Abnormal ECG When compared with ECG of 30-DEC-2020 23:49, (unconfirmed) Atrial flutter has replaced Sinus rhythm Vent. rate has increased BY 66 BPM Non-specific change in ST segment in Inferior leads ST more depressed Anterior leads T wave inversion more evident in Inferior leads Nonspecific T wave abnormality no longer evident in Anterior leads Confirmed by Clement Ceballos ([id number]) on 12/31/2020 4:00:46 PM Referred By: REFERRED SELF Confirmed By:Brady Ceballos
[2020-12-31] MEDS: oxyCODONE HCL IR 5 MG TAB (IMMEDIATE RELEASE) PO PRN (21:40)
[2021-01-01] MEDS: cefTRIAXone SODIUM 1,000 MG in DEXTROSE 5% 50 ML IV SCH (02:36)
[2021-01-01] MEDS: oxyCODONE HCL IR 5 MG TAB (IMMEDIATE RELEASE) PO PRN ×3 (02:36→16:32)
[2021-01-01] MEDS: ALBUMIN 25% 12.5 GM/50 ML VIAL IV SCH ×2 (06:09)
[2021-01-01] MEDS: GABAPENTIN 600 MG TAB PO SCH ×2 (06:10→14:30)
[2021-01-01] MEDS: THIAMINE HCL 100 MG TAB PO SCH (07:57)
[2021-01-01] MEDS: FOLIC ACID 1 MG TAB PO SCH (07:57)
[2021-01-01] MEDS: MULTIVITAMIN TAB PO SCH (07:58)
[2021-01-01] MEDS: dilTIAZem HCL 30 MG TAB PO SCH (07:58)
--- NOTE | 2021-01-01 10:18 | Cardiology Progress Note ---
Date of Service January 01, 2021 Assessment & Plan (1) Atrial fibrillation with RVR: As mentioned previously the patient is not a candidate for long-term anticoagulation. He did have some bursts of A. fib last night and I am going to increase his diltiazem to 60 mg 3 times daily. (2) Alcohol abuse: Watch for alcohol withdrawal. (3) Alcoholic cirrhosis of liver with ascites: Supportive care and encouragement to stop alcohol. Admission and Anticipated Discharge Date Admission Date: December 30, 2020 Subjective Patient is still complaining about abdominal discomfort. GI consult is appreciated. He has no new cardiac complaints today. Review of Systems Review of Systems: All systems reviewed & are unremarkable except as noted in Subjective Physical Exam Physical Exam: General: no acute distress and stated age Head: normocephalic, no masses, lesions, tenderness or abnormalities Eyes: conjunctiva are pink and non-injected, sclera clear Neck: supple, no adenopathy, no bruits, normal jugular venous pulse, no hepatojugular reflux Chest: normal shape and normal respiratory effort Lungs: clear to auscultation and percussion Cardiac Exam: - regular rate & rhythm, no murmurs gallops or rubs - normal S1, normal S2 Pulses: 2(+) throughout Abdomen: Distended with decreased bowel sounds and hepatomegaly. Musculoskeletal: no gait disturbance, no joint inflammation, no deforming arthritis Extremities: no edema and no cyanosis Neuro: grossly normal exam Results & Data ([facility]) Vital Signs (Past 12 Hours) Vital Signs Temp Pulse Pulse Resp BP Pulse Ox Pulse Ox 01/01/21 08:00 92 H 01/01/21 06:59 36.8 C 96 H 20 117/81 93 01/01/21 04:42 36.8 C 93 H 22 119/67 94 01/01/21 01:11 96 01/01/21 00:46 103 H 12/31/20 23:27 36.9 C 101 H 18 121/87 92 Laboratory Results Laboratory Results - last 24 hr 12/31/20 12/31/20 09:08 Unknown Potassium 4.0 D Fluid Neutrophils % 13 Fluid Lymphocytes % 61 Fluid Eosinophils % 0 Fluid Basophils % 0 Fluid Meso/Macro/Harnett % 26 Fluid Comment Peritoneal Color YELLOW Peritoneal Appearance CLEAR Peritoneal WBC 276 Peritoneal RBC < 3000 Diagnostic Findings Telemetry indicates the patient is mostly in sinus rhythm but did have some burst of A. fib last night. Medications Administered Current Inpatient Medications Acetaminophen (Acetaminophen 325 Mg Tab) 325 mg PO Q6H PRN PRN Reason: Mild Pain Stop: 01/30/21 01:10 Last Admin: 12/31/20 05:58 Dose: 325 mg Documented by: Diltiazem HCl (Diltiazem Hcl 30 Mg Tab) 30 mg PO TID [facility] Stop: 01/30/21 08:59 Last Admin: 01/01/21 07:58 Dose: 30 mg Documented by: Folic Acid (Folic Acid 1 Mg Tab) 1 mg PO QAM [facility] Stop: 01/30/21 01:10 Last Admin: 01/01/21 07:57 Dose: 1 mg Documented by: Gabapentin (Gabapentin 600 Mg Tab) 600 mg PO Q8H [facility] Stop: 01/01/21 14:01 Last Admin: 01/01/21 06:10 Dose: 600 mg Documented by: Gabapentin (Gabapentin 600 Mg Tab) 600 mg PO Q12H [facility] Stop: 01/02/21 12:01 Gabapentin (Gabapentin 600 Mg Tab) 600 mg PO Q24H [facility] Stop: 01/03/21 12:01 Lorazepam (Ativan) 1 mg in 2 mls @ 2 mls/min IV UD PRN; Protocol PRN Reason: EtOH Withdrawl AWSS Score 6,7 Stop: 01/30/21 01:10 Lorazepam (Ativan) 3 mg in 6 mls @ 4 mls/min IV ONCE PRN; Protocol PRN Reason: EtOH Withdrawl AWSS Score >=10 Stop: 01/30/21 01:10 Albumin Human (Albumin 25%) 12.5 gm in 50 mls @ 50 mls/hr IV Q6H [facility] Stop: 01/03/21 05:59 Last Infusion: 01/01/21 07:09 Dose: Infused Documented by: Promethazine HCl 12.5 mg/ (Sodium Chloride) 50.5 mls @ 202 mls/hr IV Q6H PRN PRN Reason: Nausea And Vomiting Stop: 01/30/21 01:10 Lorazepam (Ativan) 2 mg in 4 mls @ 4 mls/min IV UD PRN; Protocol PRN Reason: EtOH Withdrawl AWSS Score 8,9 Stop: 01/30/21 01:10 Ceftriaxone Sodium 1,000 mg/ (Dextrose) 50 mls @ 100 mls/hr IV Q24H [facility]; Protocol Stop: 01/10/21 01:59 Last Infusion: 01/01/21 03:06 Dose: Infused Documented by: Multivitamins (Multivitamin Tab) 1 tab PO [facility] Stop: 01/30/21 08:59 Last Admin: 01/01/21 07:58 Dose: 1 tab Documented by: Oxycodone HCl (Oxycodone Hcl Ir 5 Mg Tab (Immediate Release)) 5 mg PO Q4H PRN PRN Reason: Pain Stop: 01/14/21 01:10 Last Admin: 01/01/21 10:00 Dose: 5 mg Documented by: Thiamine HCl (Thiamine Hcl 100 Mg Tab) [facility] [place] [place] Stop: 01/30/21 01:10 Last Admin: 01/01/21 07:57 Dose: 100 mg Documented by:
[2021-01-01 10:22] LABS: Hematocrit (blood only) 29.8 % (42-52); Hemoglobin 10.3 g/dL (14.0-18.0); Mean Corpuscular Hemoglobin 36.9 pg (25-34); Mean Corpuscular Hgb Conc 34.6 g/dL (32-36); Mean Corpuscular Volume 106.8 fL (80-100); RDW Coefficient of Variation 14.3 % (11.5-14.5); RDW Standard Deviation 55.6 fL (36.4-46.3); Red Blood Count 2.79 M/uL (4.7-6.1); White Blood Count 6.39 K/uL (4.8-10.8)
[2021-01-01 10:26] LABS: Platelet Count 50 K/uL (130-400)
[2021-01-01 10:33] LABS: Prothrombin Time 18.9 Seconds (9.0-12.0)
[2021-01-01 10:49] LABS: Albumin Level 2.6 gm/dl (3.4-5.0); BUN Creatinine Ratio 9.9 (10-20); Calcium 8.3 mg/dl (8.5-10.1); Est GFR (Non-African American) 100.9; Magnesium 1.6 mg/dl (1.8-2.4); Potassium 3.9 mmol/L (3.5-5.1)
[2021-01-01 10:50] LABS: Albumin Globulin Ratio 0.6 (0.9-2); Bilirubin,Total 6.9 mg/dl (0.2-1); Globulin 4.1 gm/dl (2.5-4.0); Total Protein 6.7 gm/dl (6.4-8.2)
--- NOTE | 2021-01-01 10:56 | Gastroenterology Progress Note ---
Date of Service January 01, 2021 Assessment & Plan Admission and Anticipated Discharge Date Admission Date: December 30, 2020 Subjective Events noted. Tap done, with removal of 3 liters and cell count neg SBP. Cont to undergo titration of cardiac meds for A fib. Labs show normal creat, MELD 36, DF 39. No enceph. Pt has no complaints other than chronic abdominal pain. On exam, he appears comfortable and is conversant. HEENT: OC clear, anicteric CV: RRR Resp: diffuse rhonci anteriorly Abd: mild distended, dull to percuss. He is no tender to my exam. Labs erviewed. A/P: - Cirrhosis, ? Alc hep - Normal creat and no enceph; given absence of leukocytosis, I suspect presentation largely related to cirrhosis rather than hepatitis -- defer steroids. Plan to resume diuresis - d/w hospitalist, ismael for IV lasix. No clin HE, but would resume xifaxan. No need albumin/Rocephin, but may benefit from primary SBP prophy given low TP in ascitic fluid in the past and advanced liver disease Results & Data ([facility]) Vital Signs (Past 12 Hours) Vital Signs Temp Pulse Pulse Resp BP Pulse Ox Pulse Ox 01/01/21 08:00 92 H 01/01/21 06:59 36.8 C 96 H 20 117/81 93 01/01/21 04:42 36.8 C 93 H 22 119/67 94 01/01/21 01:11 96 01/01/21 00:46 103 H 12/31/20 23:27 36.9 C 101 H 18 121/87 92
--- NOTE | 2021-01-01 11:10 | Hospitalist Progress Note ---
Date of Service January 01, 2021 Assessment & Plan (1) Atrial fibrillation with rapid ventricular response: etiologies include but not limited to alcohol intoxication/withdrawal, potential abdominal infection. Admitted with elevated alcohol level. Heart rate improved with cardizem and he has maintained sinus rhythm overnight. Cardiology has seen the patient and he is not a candidate for anticoagulation 2/2 h/o alcoholism, h/o noncompliance with medical therapy and GI bleeding from esophageal varices. He is notably autoanticoagulated from severe liver disease with an INR 1.8-2.0 this admission. Cont scheduled diltiazem. (2) Hypoxia: Hypervolemia 2/2 decompensated cirrhosis with ascites. Pulmonary congestion heard on exam and seen on initial imaging. Lasix 20mg IV now and monitor for response. (3) Alcoholic cirrhosis of liver with ascites: Ascites with abdominal pain present. Paracentesis yesterday with 3.1 L off negative for SBP. Ceftriaxone and albumin stopped. Lasix 20 IV now in setting of fluid overload and hypoxia. Will ultimately need Lasix/aldactone. Cont low Na diet and 1.8L fluid restriction. (4) Alcoholic hepatitis with ascites: Discriminant function score around 39. Discussed pros/cons of steroid therapy with condenser tester GI provider. Decided against this for now. See GI note for further details. Cont to reinforce alcohol cessation permanently. (5) Abdominal pain: there is a chronic component to this. SBP was ruled out. ?alcoholic hepatitis contributing. Cont to provide supportive care. Reassuring that he is tolerating PO and having BMs. Lactulose PRN given the oxycodone use. (6) Alcohol abuse: Counseled to quit, he states he is not interested in rehab at this time and he can quit by substituting chocolate milk for alcohol when he gets home. (7) Alcohol intoxication: supportive care, monitor for withdrawal symptoms. Gabapentin protocol. (8) Multiple thyroid nodules: Recently found to have marked bilateral lobe thyroid enlargeent by CT scan during an ER visit with several nodular densities of the supracalvicular and retroclavicular region concerning for neoplastic process. He was referred to ENT but has not been compliant with this. Workup is pending. Counseling patient of the importance of this given the consideration of thyroid lymphoma in the differential diagnosis. (9) Thrombocytopenia due to hypersplenism: Related to liver disease. (10) Tobacco use disorder: Advise strongly to quit. (11) Protein calorie malnutrition: (12) Anemia: chronic and around his baseline. No evience of overt bleeding at this time. Cont to monitor. (13) Coagulopathy: Related to liver disease (14) DVT prophylaxis: SCDs, patient is autoanticoagulated Full Code Dispo-to home when medically stable, cont PCU monitoring for now. DO Adarsh ConnellyLos [facility] Centerist Ad[facility] and Anticipated Discharge Date Admission Date: December 30, 2020 Subjective 55 yo M with h/o alcohol abuse presented with abdominal and chest pain x 3 days. He has a history of alcoholic cirrhosis went for paracentesis yesterday with 3.1 L ascitic fluid taken off. Patient reported there was no improvement or worsening of his abdominal pain as a result of the procedure. He is known to have long-standing chronic abdominal pain. He had a brown normal consistency stool yesterday per nursing notes. He is tolerating food and denies any nausea or vomiting. He denies any fevers or chills. He has consistently required oxygen supplementation overnight for hypoxia but denies any SOB or other respiratory symptoms. Review of Systems Review of Systems: All systems reviewed & are unremarkable except as noted in Subjective Physical Exam Physical Exam: CONSTITUTIONAL: WNWD, vitals as above, generally ill- appearing. EYES: normal conjunctivae, no scleral icterus ENT: external ear and nose normal, MMM RESPIRATORY: normal respiratory effort, coarse rhonchi at bases bilaterally, no wheezing or rales. CARDIOVASCULAR: regular rate and rhythm, S1 and 2 heard without murmurs, gallops or rubs, no JVD, no peripheral edema CHEST: inspection of chest was normal GASTROINTESTINAL: soft, TTP in RUQ/RLQ, nondistended. MUSCULOSKELETAL: strength 5/5 throughout, head is normocephalic and atraumatic SKIN: warm and dry NEUROLOGIC: CN 2-12 grossly intact, normal speech, no gross focal deficits. PSYCHIATRIC: alert cooperative and oriented , answering questions appropriately. Results & Data Results & Data ([facility]) Vital Signs (Past 12 Hours) Vital Signs Temp Pulse Pulse Resp BP Pulse Ox Pulse Ox 01/01/21 08:00 92 H 01/01/21 06:59 36.8 C 96 H 20 117/81 93 01/01/21 04:42 36.8 C 93 H 22 119/67 94 01/01/21 01:11 96 01/01/21 00:46 103 H 12/31/20 23:27 36.9 C 101 H 18 121/87 92 Laboratory Results Short CBC 01/01/21 Range/Units 10:08 WBC 6.39 (4.8-10.8) K/uL Hgb 10.3 L (14.0-18.0) g/dL Hct 29.8 L (42-52) % Plt Count 50 L (130-400) K/uL BMP 01/01/21 10:08 Sodium 133 L D Potassium 3.9 Chloride 103 Carbon Dioxide 27 BUN 8 Creatinine 0.78 Glucose 111 H Calcium 8.3 L Liver Function 01/01/21 Range/Units 10:08 Total Bilirubin 6.9 H (0.2-1) mg/dl AST 51 H (15-37) U/L ALT 20 (12-78) U/L Alkaline Phosphatase 101 (45-117) U/L Albumin 2.6 L (3.4-5.0) gm/dl Medications Administered Current Inpatient Medications Acetaminophen (Acetaminophen 325 Mg Tab) 325 mg PO Q6H PRN PRN Reason: Mild Pain Stop: 01/30/21 01:10 Last Admin: 12/31/20 05:58 Dose: 325 mg Documented by: Diltiazem HCl (Diltiazem Hcl 60 Mg Tab) 60 mg PO TID [facility] Stop: 01/31/21 13:59 Folic Acid (Folic Acid 1 Mg Tab) 1 mg PO QAM [facility] Stop: 01/30/21 01:10 Last Admin: 01/01/21 07:57 Dose: 1 mg Documented by: Gabapentin (Gabapentin 600 Mg Tab) 600 mg PO Q8H [facility] Stop: 01/01/21 14:01 Last Admin: 01/01/21 06:10 Dose: 600 mg Documented by: Gabapentin (Gabapentin 600 Mg Tab) 600 mg PO Q12H [facility] Stop: 01/02/21 12:01 Gabapentin (Gabapentin 600 Mg Tab) 600 mg PO Q24H [facility] Stop: 01/03/21 12:01 Lorazepam (Ativan) 1 mg in 2 mls @ 2 mls/min IV UD PRN; Protocol PRN Reason: EtOH Withdrawl AWSS Score 6,7 Stop: 01/30/21 01:10 Lorazepam (Ativan) 3 mg in 6 mls @ 4 mls/min IV ONCE PRN; Protocol PRN Reason: EtOH Withdrawl AWSS Score >=10 Stop: 01/30/21 01:10 Promethazine HCl 12.5 mg/ (Sodium Chloride) 50.5 mls @ 202 mls/hr IV Q6H PRN PRN Reason: Nausea And Vomiting Stop: 01/30/21 01:10 Lorazepam (Ativan) 2 mg in 4 mls @ 4 mls/min IV UD PRN; Protocol PRN Reason: EtOH Withdrawl AWSS Score 8,9 Stop: 01/30/21 01:10 Furosemide 20 mg/ Syringe 2 mls @ 4 mls/min IV ONE STA Stop: 01/01/21 11:17 Multivitamins (Multivitamin Tab) [facility] [place] Stop: 01/30/21 08:59 Last Admin: 01/01/21 07:58 Dose: 1 tab Documented by: Oxycodone HCl (Oxycodone Hcl Ir 5 Mg Tab (Immediate Release)) 5 mg PO Q4H PRN PRN Reason: Pain Stop: 01/14/21 01:10 Last Admin: 01/01/21 10:00 Dose: 5 mg Documented by: Rifaximin (Rifaximin 550 Mg Tablet) 550 mg PO BID [facility] Stop: 01/31/21 20:59 Thiamine HCl (Thiamine Hcl 100 Mg Tab) 100 mg PO QAM [facility] Stop: 01/30/21 01:10 Last Admin: 01/01/21 07:57 Dose: 100 mg Documented by: (1) Alcohol intoxication Complication of substance-induced condition: uncomplicated Qualified Code(s): F10.920 - Alcohol use, unspecified with intoxication, uncomplicated
[2021-01-01] MEDS ORDERED: LACTULOSE SYRUP 20 GM/30 ML UDC PO PRN (11:28)
[2021-01-01] MEDS ORDERED: FUROSEMIDE 20 MG in SYRINGE 0 ML IV ONE (11:45)
[2021-01-01] MEDS: dilTIAZem HCl 60 MG TAB PO SCH ×2 (14:29→20:22)
[2021-01-01] MEDS: LORazepam 1 MG/2 ML VIAL IV PRN (14:41)
[2021-01-01] MEDS: rifAXIMin 550 MG TABLET PO SCH (20:22)
[2021-01-02] MEDS: GABAPENTIN 600 MG TAB PO SCH ×2 (00:12→16:18)
[2021-01-02] MEDS ORDERED: XOPENEX/ATROVENT 1.25mg/0.5MG NEB COMBO NEB STA (01:56)
[2021-01-02] MEDS ORDERED: IPRATROPIUM BROMIDE NEB SOLN 0.02% 2.5 ML VIAL INH STA (02:04)
[2021-01-02] MEDS ORDERED: LEVALBUTEROL 1.25MG/0.5ML NEB INH STA (02:05)
[2021-01-02] MEDS: MAGNESIUM SULFATE / D5W 1 GM/100 ML BAG IV SCH ×2 (02:35→04:06)
[2021-01-02 02:36] LABS: Hematocrit (blood only) 30.9 % (42-52); Hemoglobin 10.5 g/dL (14.0-18.0); Mean Corpuscular Hemoglobin 36.5 pg (25-34); Mean Corpuscular Volume 107.3 fL (80-100); RDW Coefficient of Variation 14.2 % (11.5-14.5); RDW Standard Deviation 55.5 fL (36.4-46.3); Red Blood Count 2.88 M/uL (4.7-6.1); White Blood Count 6.53 K/uL (4.8-10.8)
[2021-01-02] MEDS ORDERED: FUROSEMIDE 20 MG in SYRINGE 0 ML IV ONE ×2 (02:36→15:45)
[2021-01-02 02:38] LABS: Base Excess ABG 3.6 mEq/L (-9-1.8); HCO3 ABG 28 mmol/L (19-24); Oxygen Saturation ABG 95.8 % (90-95); PCO2 ABG 40 mmHg (35-46); PO2 ABG 75 mmHg (80-95); pH ABG 7.46 (7.35-7.45)
[2021-01-02 02:38] LABS: Platelet Count 46 K/uL (130-400)
[2021-01-02 02:39] LABS: Allen Test Pos (Pos)
[2021-01-02] MEDS ORDERED: AMPICILLIN/SULBACTAM SOD 3,000 MG in 0.9 % SODIUM CHLORIDE 100 ML IV STA (02:41)
[2021-01-02] MEDS ORDERED: methylPREDNISolone 40 MG in SYRINGE 0 ML IV STA (02:42)
--- NOTE | 2021-01-02 02:44 | Communication Note ---
Date of Service: January 02, 2021 Notified by RN of respratory distress, shortness of breath, cough productive of white thick sputum O2 sats transiently in the 70s as per RN. Chest x-ray as per my interpretation interstitial congestion AP Hypoxemic respiratory failure Multifactorial : COPD exacerbation, possible aspiration pneumonitis given emesis episodes prior to admission Pulmonary congestion Supplemental O2 Baseline ABG Steroid, nebs RTC, Unasyn then Augmentin course Lasix 1 dose Will relay to AM provider.
[2021-01-02] MEDS ORDERED: FUROSEMIDE 40 MG/4 ML VIAL IV ONE (02:45)
[2021-01-02 02:46] LABS: INR 2.1 (0.9-1.1); Prothrombin Time 19.9 Seconds (9.0-12.0)
[2021-01-02 03:04] LABS: Basophils # (auto) 0.03 K/uL (0-0.2); Basophils % (auto) 0.5 %; Eosinophils # (auto) 0.27 K/uL (0-0.5); Eosinophils % (auto) 4.1 %; Giant Platelets 2+; Immature Granulocytes # (auto) 0.02 K/uL (0.00-0.02); Immature Granulocytes % (auto) 0.3 %; Lymphocytes # (auto) 1.13 K/uL (1.2-3.4); Lymphocytes % (auto) 17.3 %; Monocytes # (auto) 0.58 K/uL (0.11-0.59); Monocytes % (auto) 8.9 %; Neutrophils % (auto) 68.9 %
[2021-01-02 03:05] LABS: Albumin Globulin Ratio 0.5 (0.9-2); Albumin Level 2.5 gm/dl (3.4-5.0); Bilirubin,Total 5.6 mg/dl (0.2-1); Creatinine Clr Calc Pharmacy 90.8 ml/min; Est GFR (African American) 116.3; Est GFR (Non-African American) 100.4; Globulin 4.6 gm/dl (2.5-4.0); Magnesium 1.7 mg/dl (1.8-2.4); Potassium 3.7 mmol/L (3.5-5.1); Total Protein 7.1 gm/dl (6.4-8.2)
[2021-01-02] MEDS ORDERED: POTASSIUM CHLORIDE CRTAB 20 MEQ TABCR PO STA (03:06)
[2021-01-02] MEDS ORDERED: dilTIAZem HCl 5 MG/ML 5 ML VIAL IV STA (04:30)
[2021-01-02] MEDS ORDERED: ALBUMIN 25% 12.5 GM/50 ML VIAL IV ONE (04:30)
[2021-01-02] MEDS ORDERED: dilTIAZem HCl 5 MG/ML 5 ML VIAL IV ONE (04:37)
[2021-01-02] MEDS ORDERED: Augmentin: PHARMACY CONSULT IN PROGRESS PRN (05:26)
[2021-01-02] MEDS ORDERED: DIGOXIN 250 MCG in SYRINGE 9 ML IV STA (05:58)
[2021-01-02] MEDS: dilTIAZem HCl 60 MG TAB PO SCH ×3 (06:13→21:13)
[2021-01-02] MEDS ORDERED: SODIUM CHLORIDE 0.9% NEBU SOLN 3 ML NEB SCH (07:00)
[2021-01-02] MEDS ORDERED: XOPENEX/ATROVENT 1.25mg/0.5MG NEB COMBO NEB SCH (07:00)
[2021-01-02] MEDS ORDERED: IPRATROPIUM BROMIDE NEB SOLN 0.02% 2.5 ML VIAL INH SCH (07:00)
[2021-01-02] MEDS ORDERED: LEVALBUTEROL 1.25MG/0.5ML NEB INH SCH (07:00)
[2021-01-02] MEDS: AMOXICILLIN/CLAVULANATE 875 MG TAB PO SCH ×2 (08:48→17:42)
[2021-01-02] MEDS: rifAXIMin 550 MG TABLET PO SCH ×2 (08:49→21:13)
[2021-01-02] MEDS: THIAMINE HCL 100 MG TAB PO SCH (08:49)
[2021-01-02] MEDS: MULTIVITAMIN TAB PO SCH (08:49)
[2021-01-02] MEDS: FOLIC ACID 1 MG TAB PO SCH (08:49)
[2021-01-02] MEDS: LORazepam 1 MG/2 ML VIAL IV PRN (08:52)
[2021-01-02] MEDS: oxyCODONE HCL IR 5 MG TAB (IMMEDIATE RELEASE) PO PRN (09:12)
--- NOTE | 2021-01-02 09:57 | XRay Report ---
XR chest 1V portable HISTORY: Shortness of breath. COMPARISON: Chest 12/30/2020. FINDINGS: No pneumothorax. Trace bilateral pleural effusions. The heart remains mildly enlarged. Inte rval progression of the interstitial thickening and hazy perihilar airspace opacities. This favors pu lmonary edema. An atypical pneumonia could also have a similar appearance. IMPRESSION: Interval progression of the interstitial thickening and hazy perihilar airspace opacities. This favor s pulmonary edema. An atypical pneumonia could also have a similar appearance. ACT 112: Negative or not required by law. Electronically signed by: Villa Clinton M.D. 01/02/2021 9:56 AM
[2021-01-02] MEDS: LORazepam 3 MG/6 ML VIAL IV PRN ×3 (10:26→22:48)
[2021-01-02] MEDS: LORazepam 2 MG/4 ML VIAL IV PRN ×2 (10:45→20:08)
--- NOTE | 2021-01-02 10:46 | Hospitalist Progress Note ---
Date of Service January 02, 2021 Assessment & Plan (1) Hypoxia: Hypervolemia 2/2 decompensated cirrhosis with ascites. Pulmonary congestion heard on exam and seen on initial imaging. Lasix given with good response. Steroids were stopped as clinical history was not consistent with a COPD exacerbation and want to avoid polypharmacy contributing to delirium. Antibiotics also deferred for now given the lack of fever, white count and clinical history consistent with hypervolemia. Would consider adding broad- spectrum antibiotics if patient were to spike a fever. (2) Alcohol withdrawal delirium: He originally arrived intoxicated and now is withdrawing. He required several doses of Ativan today to combat significant delirium and agitation. This may progress overnight and he may be a candidate for Precedex therapy in the ICU. For now continue Ativan as needed. (3) Atrial fibrillation with rapid ventricular response: He is not a candidate for anticoagulation 2/2 h/o alcoholism, h/o noncompliance with medical therapy and GI bleeding from esophageal varices. He is notably autoanticoagulated from severe liver disease with an INR 1.8-2.0 this admission. Cont scheduled diltiazem and atenolol. As patient is currently n.p.o. given altered mental status, he may require IV rate control therapy overnight. Continue monitoring in PCU setting. (4) Alcoholic cirrhosis of liver with ascites: Ascites with abdominal pain present. Paracentesis with 3.1 L off negative for SBP. Ceftriaxone and albumin stopped. Received now 3 doses of intravenous Lasix in the past 24 hours. He appears responsive to this from a breathing standpoint. Will ultimately need Lasix/aldactone. Cont low Na diet and 1.8L fluid restriction-currently n.p.o. (5) Alcoholic hepatitis with ascites: This is a questionable diagnosis. Elevated discriminant funtio, however, given absence of leukocytosis GI provider suspects this is largely related to cirrhosis rather than hepatitis and steroids were deferred. Additionally this patient has a known history of chronic abdominal pain. (6) Abdominal pain: there is a chronic component to this. SBP was ruled out. Cont to provide supportive care. Reassuring that he is tolerating PO and having BMs. Lactulose PRN given the oxycodone use. (7) Alcohol abuse: Counseled to quit, he states he is not interested in rehab at this time and he can quit by substituting chocolate milk for alcohol when he gets home. (8) Multiple thyroid nodules: Recently found to have marked bilateral lobe thyroid enlargeent by CT scan during an ER visit with several nodular densities of the supracalvicular and retroclavicular region concerning for neoplastic process. He was referred to ENT but has not been compliant with this. Workup is pending. Counseling patient of the importance of this given the consideration of thyroid lymphoma in the differential diagnosis. (9) Thrombocytopenia due to hypersplenism: Related to liver disease. (10) Tobacco use disorder: Advise strongly to quit. (11) Protein calorie malnutrition: (12) Anemia: chronic and around his baseline. No evience of overt bleeding at this time. Cont to monitor. (13) Coagulopathy: Related to liver disease (14) DVT prophylaxis: SCDs, patient is autoanticoagulated Full Code Dispo-to home when medically stable, cont PCU monitoring for now. The patient was made n.p.o. in the setting of altered mental status. This can be reevaluated if he wakes up and is not confused. Norma Barrera DO [facility] Hospitalist Admission and Anticipated Discharge Date Admission Date: December 30, 2020 Subjective 55 yo M with h/o alcohol abuse presented with abdominal and chest pain x 3 days. He has a history of alcoholic cirrhosis went for paracentesis with 3.1 L ascitic fluid taken off; no SBP infection was seen. He consistently had coarse rhonchi on lung exam each day he was here with some Lasix given yesterday afternoon. There was more concern for him having worsening hypoxia overnight and he was given albumin, additional Lasix 20mg IV, given Solumedrol with prednisone to continue, given one dose of Unasyn with Augmentin to continue. Today he is still requiring supplemental oxygen and desaturates when the mask falls off his face, but recovers quickly within 20-30 seconds when it is replaced. He was demonstrating significant delirium requiring a higher amount of Ativan and when I saw him both times today he was too somnolent to collect a review of systems. I discussed the case with the GI provider. Review of Systems Review of Systems: Unobtainable due to cognitive status Physical Exam Physical Exam: CONSTITUTIONAL: WNWD, vitals as above, somnolent, occasionally wakes up and is disoriented. EYES: normal conjunctivae, no scleral icterus ENT: external ear and nose normal, MMM RESPIRATORY: normal respiratory effort, clear lungs to auscultation. Supplemental oxygen in place. CARDIOVASCULAR: regular rate and rhythm, S1 and 2 heard without murmurs, gallops or rubs, no JVD, no peripheral edema CHEST: inspection of chest was normal GASTROINTESTINAL: soft, nondistended. MUSCULOSKELETAL: obtunded. SKIN: warm and dry NEUROLOGIC: obtunded. PSYCHIATRIC: obtunded. Results & Data Results & Data ([facility]) Vital Signs (Past 12 Hours) Vital Signs Temp Pulse Pulse Resp BP BP Pulse Ox 01/02/21 08:16 36.8 C 81 19 118/72 92 01/02/21 06:13 126 H 01/02/21 06:12 126 H 117/80 01/02/21 05:45 121 H 113/76 01/02/21 04:43 127 H 129/83 01/02/21 04:08 37 C 130 H 20 134/79 95 01/02/21 04:00 37.6 C H 61 16 134/79 95 01/02/21 02:32 93 H 18 94 01/02/21 01:52 102 H 01/02/21 01:51 36.9 C 90 24 121/75 96 01/02/21 01:00 01/02/21 00:32 102 H 01/02/21 00:00 36.8 C 96 H 16 115/24 L 91 Pulse Ox 01/02/21 08:16 01/02/21 06:13 01/02/21 06:12 01/02/21 05:45 01/02/21 04:43 01/02/21 04:08 01/02/21 04:00 01/02/21 02:32 01/02/21 01:52 01/02/21 01:51 01/02/21 01:00 96 01/02/21 00:32 01/02/21 00:00 Laboratory Results Short CBC 01/02/21 Range/Units 02:12 WBC 6.53 (4.8-10.8) K/uL Hgb 10.5 L (14.0-18.0) g/dL Hct 30.9 L (42-52) % Plt Count 46 L (130-400) K/uL BMP 01/01/21 01/02/21 10:08 02:12 Sodium 133 L D 135 L Potassium 3.9 3.7 Chloride 103 103 Carbon Dioxide 27 29 BUN 8 9 Creatinine 0.78 0.79 Glucose 111 H 125 H Calcium 8.3 L 8.0 L Liver Function 01/01/21 01/02/21 Range/Units 10:08 02:12 Total Bilirubin 6.9 H 5.6 H (0.2-1) mg/dl AST 51 H 50 H (15-37) U/L ALT 20 22 (12-78) U/L Alkaline Phosphatase 101 108 (45-117) U/L Albumin 2.6 L 2.5 L (3.4-5.0) gm/dl Medications Administered Current Inpatient Medications Acetaminophen (Acetaminophen 325 Mg Tab) 325 mg PO Q6H PRN PRN Reason: Mild Pain Stop: 01/30/21 01:10 Last Admin: 12/31/20 05:58 Dose: 325 mg Documented by: Amoxicillin/Clavulanate Potassium (Amoxicillin/Clavulanate 875 Mg Tab) 1 tab PO BIDM [facility]; Protocol Stop: 01/09/21 07:59 Last Admin: 01/02/21 08:48 Dose: 1 tab Documented by: Diltiazem HCl (Diltiazem Hcl 60 Mg Tab) 60 mg PO TID [facility] Stop: 02/01/21 05:49 Last Admin: 01/02/21 06:13 Dose: 60 mg Documented by: Folic Acid (Folic Acid 1 Mg Tab) 1 mg PO QAM [facility] Stop: 01/30/21 01:10 Last Admin: 01/02/21 08:49 Dose: 1 mg Documented by: Gabapentin (Gabapentin 600 Mg Tab) 600 mg PO Q12H [facility] Stop: 01/02/21 12:01 Last Admin: 01/02/21 00:12 Dose: 600 mg Documented by: Gabapentin (Gabapentin 600 Mg Tab) 600 mg PO Q24H [facility] Stop: 01/03/21 12:01 Lorazepam (Ativan) 1 mg in 2 mls @ 2 mls/min IV UD PRN; Protocol PRN Reason: EtOH Withdrawl AWSS Score 6,7 Stop: 01/30/21 01:10 Last Admin: 01/02/21 08:52 Dose: 2 mls/min Documented by: Lorazepam (Ativan) 3 mg in 6 mls @ 4 mls/min IV ONCE PRN; Protocol PRN Reason: EtOH Withdrawl AWSS Score >=10 Stop: 01/30/21 01:10 Last Admin: 01/02/21 10:26 Dose: 4 mls/min Documented by: Promethazine HCl 12.5 mg/ (Sodium Chloride) 50.5 mls @ 202 mls/hr IV Q6H PRN PRN Reason: Nausea And Vomiting Stop: 01/30/21 01:10 Lorazepam (Ativan) 2 mg in 4 mls @ 4 mls/min IV UD PRN; Protocol PRN Reason: EtOH Withdrawl AWSS Score 8,9 Stop: 01/30/21 01:10 Lactulose (Lactulose Syrup 20 Gm/30 Ml Udc) 20 gm PO [id number] PRN PRN Reason: give if no BM 2-3 times/24h Stop: 01/31/21 16:59 Last Admin: 01/01/21 17:47 Dose: 20 gm Documented by: Miscellaneous Information (Augmentin: Pharmacy Consult In Progress) 1 ea N/A UD PRN PRN Reason: Consult Stop: 02/01/21 05:25 Multivitamins (Multivitamin Tab) 1 tab PO [facility] Stop: 01/30/21 08:59 Last Admin: 01/02/21 08:49 Dose: 1 tab Documented by: Oxycodone HCl (Oxycodone Hcl Ir 5 Mg Tab (Immediate Release)) 5 mg PO Q4H PRN PRN Reason: Pain Stop: 01/14/21 01:10 Last Admin: 01/02/21 09:12 Dose: 5 mg Documented by: Prednisone (Prednisone 20 Mg Tab) 40 mg PO DAILY [facility] Stop: 01/07/21 08:59 Rifaximin (Rifaximin 550 Mg Tablet) 550 mg PO BID [facility] Stop: 01/31/21 20:59 Last Admin: 01/02/21 08:49 Dose: 550 mg Documented by: Sodium Chloride (Sodium Chloride 0.9% Nebu Soln 3 Ml) 3 ml NEB QIDR [facility] Stop: 02/01/21 06:59 Last Admin: 01/02/21 08:11 Dose: Not Given Documented by: Thiamine HCl (Thiamine Hcl 100 Mg Tab) 100 mg PO QAM [facility] Stop: 01/30/21 01:10 Last Admin: 01/02/21 08:49 Dose: 100 mg Documented by:
--- NOTE | 2021-01-02 11:20 | Cardiology Progress Note ---
Date of Service January 02, 2021 Assessment & Plan (1) Atrial fibrillation with RVR: The patient had about a 4-hour run of atrial fibrillation early this morning. He is now going through delirium tremors and will be hard to control his atrial fibrillation however, the best medication is a beta-johnny at this point. So in addition to the diltiazem I ordered atenolol 25 mg daily. (2) Alcohol abuse: Delusional and going through withdrawal (3) Alcoholic cirrhosis of liver with ascites: Supportive care and encouragement to stop alcohol. Admission and Anticipated Discharge Date Admission Date: December 30, 2020 Subjective Patient is actively having withdrawal symptoms delusional at this point. Review of Systems Review of Systems: All systems reviewed & are unremarkable except as noted in Subjective and Unobtainable due to cognitive status Physical Exam Physical Exam: General: no acute distress and stated age Head: normocephalic, no masses, lesions, tenderness or abnormalities Eyes: conjunctiva are pink and non-injected, sclera clear Neck: supple, no adenopathy, no bruits, normal jugular venous pulse, no he patojugular reflux Chest: normal shape and normal respiratory effort Lungs: clear to auscultation and percussion Cardiac Exam: - regular rate & rhythm, no murmurs gallops or rubs - normal S1, normal S2 Pulses: 2(+) throughout Abdomen: Distended with hepatomegaly. Musculoskeletal: no gait disturbance, no joint inflammation, no deforming arthritis Extremities: no edema and no cyanosis Neuro: grossly normal exam Results & Data ([facility]) Vital Signs (Past 12 Hours) Vital Signs Temp Pulse Pulse Resp BP BP Pulse Ox 01/02/21 08:16 36.8 C 81 19 118/72 92 01/02/21 06:13 126 H 01/02/21 06:12 126 H 117/80 01/02/21 05:45 121 H 113/76 01/02/21 04:43 127 H 129/83 01/02/21 04:08 37 C 130 H 20 134/79 95 01/02/21 04:00 37.6 C H 61 16 134/79 95 01/02/21 02:32 93 H 18 94 01/02/21 01:52 102 H 01/02/21 01:51 36.9 C 90 24 121/75 96 01/02/21 01:00 01/02/21 00:32 102 H 01/02/21 00:00 36.8 C 96 H 16 115/24 L 91 Pulse Ox 01/02/21 08:16 01/02/21 06:13 01/02/21 06:12 01/02/21 05:45 01/02/21 04:43 01/02/21 04:08 01/02/21 04:00 01/02/21 02:32 01/02/21 01:52 01/02/21 01:51 01/02/21 01:00 96 01/02/21 00:32 01/02/21 00:00 Laboratory Results Laboratory Results - last 24 hr 01/02/21 01/02/21 01/02/21 02:12 02:12 02:12 WBC 6.53 RBC 2.88 L Hgb 10.5 L Hct 30.9 L MCV 107.3 H MCH 36.5 H MCHC 34.0 RDW Std Deviation 55.5 H RDW Coeff of Hernandez 14.2 Plt Count 46 L MPV 11.0 H Immature Gran % (Auto) 0.3 Neut % (Auto) 68.9 Lymph % (Auto) 17.3 Edmunds % (Auto) 8.9 Eos % (Auto) 4.1 Baso % (Auto) 0.5 Neut # (Auto) 4.50 Lymph # (Auto) 1.13 L Edmunds # (Auto) 0.58 Eos # (Auto) 0.27 Baso # (Auto) 0.03 Immature Gran # (Auto) 0.02 Giant Platelets 2+ PT 19.9 H INR 2.1 H ABG pH ABG pCO2 ABG pO2 ABG HCO3 ABG O2 Saturation ABG Base Excess Soy Test Oxygen Given Sodium 135 L Potassium 3.7 Chloride 103 Carbon Dioxide 29 Anion Gap 3.0 BUN 9 Creatinine 0.79 Est Cr Clr Drug Dosing 90.8 Est GFR ( Amer) 116.3 Est GFR (Non-Af Amer) 100.4 BUN/Creatinine Ratio 12.0 Glucose 125 H Calcium 8.0 L Magnesium 1.7 L Total Bilirubin 5.6 H AST 50 H ALT 22 Alkaline Phosphatase 108 Total Protein 7.1 Albumin 2.5 L Globulin 4.6 H Albumin/Globulin Ratio 0.5 L COVID-19 Eval Order SARS-CoV-2, RNA, NAAT 0301/02/21 01/02/21 02:26 02:50 02:50 WBC RBC Hgb Hct MCV MCH MCHC RDW Std Deviation RDW Coeff of Hernandez Plt Count MPV Immature Gran % (Auto) Neut % (Auto) Lymph % (Auto) Edmunds % (Auto) Eos % (Auto) Baso % (Auto) Neut # (Auto) Lymph # (Auto) Edmunds # (Auto) Eos # (Auto) Baso # (Auto) Immature Gran # (Auto) Giant Platelets PT INR ABG pH 7.46 H ABG pCO2 40 ABG pO2 75 L ABG HCO3 28 H ABG O2 Saturation 95.8 H ABG Base Excess 3.6 H Soy Test Pos Oxygen Given 4L Sodium Potassium Chloride Carbon Dioxide Anion Gap BUN Creatinine Est Cr Clr Drug Dosing Est GFR ( Amer) Est GFR (Non-Af Amer) BUN/Creatinine Ratio Glucose Calcium Magnesium Total Bilirubin AST ALT Alkaline Phosphatase Total Protein Albumin Globulin Albumin/Globulin Ratio COVID-19 Eval [facility] SARS-CoV-2, RNA, NAAT NEGATIVE Medications Administered Current Inpatient Medications Acetaminophen (Acetaminophen 325 Mg Tab) 325 mg PO Q6H PRN PRN Reason: Mild Pain Stop: 01/30/21 01:10 Last Admin: 12/31/20 05:58 Dose: 325 mg Documented by: Amoxicillin/Clavulanate Potassium (Amoxicillin/Clavulanate 875 Mg Tab) 1 tab PO BIDM [facility]; Protocol Stop: 01/09/21 07:59 Last Admin: 01/02/21 08:48 Dose: 1 tab Documented by: Diltiazem HCl (Diltiazem Hcl 60 Mg Tab) 60 mg PO TID [facility] Stop: 02/01/21 05:49 Last Admin: 01/02/21 06:13 Dose: 60 mg Documented by: Folic Acid (Folic Acid 1 Mg Tab) 1 mg PO QAM [facility] Stop: 01/30/21 01:10 Last Admin: 01/02/21 08:49 Dose: 1 mg Documented by: Gabapentin (Gabapentin 600 Mg Tab) 600 mg PO Q12H [facility] Stop: 01/02/21 12:01 Last Admin: 01/02/21 00:12 Dose: 600 mg Documented by: Gabapentin (Gabapentin 600 Mg Tab) 600 mg PO Q24H [facility] Stop: 01/03/21 12:01 Lorazepam (Ativan) 1 mg in 2 mls @ 2 mls/min IV UD PRN; Protocol PRN Reason: EtOH Withdrawl AWSS Score 6,7 Stop: 01/30/21 01:10 Last Admin: 01/02/21 08:52 Dose: 2 mls/min Documented by: Lorazepam (Ativan) 3 mg in 6 mls @ 4 mls/min IV ONCE PRN; Protocol PRN Reason: EtOH Withdrawl AWSS Score >=10 Stop: 01/30/21 01:10 Last Admin: 01/02/21 10:26 Dose: 4 mls/min Documented by: Promethazine HCl 12.5 mg/ (Sodium Chloride) 50.5 mls @ 202 mls/hr IV Q6H PRN PRN Reason: Nausea And Vomiting Stop: 01/30/21 01:10 Lorazepam (Ativan) 2 mg in 4 mls @ 4 mls/min IV UD PRN; Protocol PRN Reason: EtOH Withdrawl AWSS Score 8,9 Stop: 01/30/21 01:10 Last Admin: 01/02/21 10:45 Dose: 4 mls/min Documented by: Lactulose (Lactulose Syrup 20 Gm/30 Ml Udc) 20 gm PO BID17 PRN PRN Reason: give if no BM 2-3 times/24h Stop: 01/31/21 16:59 Last Admin: 01/01/21 17:47 Dose: 20 gm Documented by: Magnesium Oxide (Magnesium Oxide 400 Mg Tab) 400 mg PO BID [facility] Stop: 02/01/21 20:59 Miscellaneous Information (Augmentin: Pharmacy Consult In Progress) 1 ea N/A UD PRN PRN Reason: Consult Stop: 02/01/21 05:25 Multivitamins (Multivitamin Tab) 1 tab PO QAM [facility] Stop: 01/30/21 08:59 Last Admin: 01/02/21 08:49 Dose: 1 tab Documented by: Oxycodone HCl (Oxycodone Hcl Ir 5 Mg Tab (Immediate Release)) 5 mg PO Q4H PRN PRN Reason: Pain Stop: 01/14/21 01:10 Last Admin: 01/02/21 09:12 Dose: 5 mg Documented by: Prednisone (Prednisone 20 Mg Tab) 40 mg PO DAILY [facility] Stop: 01/07/21 08:59 Rifaximin (Rifaximin 550 Mg Tablet) 550 mg PO BID [facility] Stop: 01/31/21 20:59 Last Admin: 01/02/21 08:49 Dose: 550 mg Documented by: Thiamine HCl (Thiamine Hcl 100 Mg Tab) 100 mg PO QAM [facility] Stop: 01/30/21 01:10 Last Admin: 01/02/21 08:49 Dose: 100 mg Documented by:
--- NOTE | 2021-01-02 12:14 | Gastroenterology Progress Note ---
Date of Service January 02, 2021 Assessment & Plan Admission and Anticipated Discharge Date Admission Date: December 30, 2020 Subjective Events noted. Pt with hypoxic episode, tachycardia last night. CTA shows pulm HTN, vol overload, no PE. Received steroids x1, unasyn + Augmentin for possible aspiration. Lasix 20 mg x 2 yesterday. He was reported as delusional and combative by the nurses this am, received Ativan. PE: He is sedated, non responsive to verbal stimuli. O2 sat is 94 on room air by my exam HEENT: OC clear CV: RRR at time of my exam Resp: Some scattered rhonchi ant Abd: soft, mild distend, non tender Extrem: no edema Labs show Na 133, nl creat, Bili 5's from 6 yesterday, stable INR 2. A/P: Cirrhosis, ? alc hep - No need steroids, cont xifaxan once resumes PO Vol overload - Lasix 40 mg IV 1-2 x today, add aldactone once taking PO; follow Na and creat daily and resume albumin if diuresis is not tolerated by BP or lytes. Steroids per primary service Results & Data ([facility]) Vital Signs (Past 12 Hours) Vital Signs Temp Pulse Pulse Resp BP Pulse Ox Pulse Ox 01/02/21 08:16 36.8 C 81 19 118/72 92 01/02/21 06:13 126 H 01/02/21 06:12 126 H 117/80 01/02/21 05:45 121 H 113/76 01/02/21 04:43 127 H 129/83 01/02/21 04:08 37 C 130 H 20 134/79 95 01/02/21 04:00 37.6 C H 61 16 134/79 95 01/02/21 02:32 93 H 18 94 01/02/21 01:52 102 H 01/02/21 01:51 36.9 C 90 24 121/75 96 01/02/21 01:00 96 01/02/21 00:32 102 H
[2021-01-02] MEDS: ATENOLOL 25 MG TABLET PO SCH (16:18)
[2021-01-02] MEDS ORDERED: LORazepam 0.5 MG/1 ML VIAL IV SCH (17:15)
[2021-01-02] MEDS: MAGNESIUM OXIDE 400 MG TAB PO SCH (21:13)
[2021-01-02] MEDS ORDERED: METOPROLOL TARTRATE 1 MG/ML VIAL IV STA (21:51)
--- NOTE | 2021-01-02 21:52 | Communication Note ---
Date of Service: January 02, 2021 Patient RN notified me that she wasn't comfortable giving patient oral meds given altered mental status. IV Lopressor while oral Cardizem and atenolol cannot be administered safely. Will relay to AM provider.
[2021-01-03] MEDS: LORazepam 3 MG/6 ML VIAL IV PRN (00:41)
[2021-01-03] MEDS: METOPROLOL TARTRATE 1 MG/ML VIAL IV SCH ×3 (06:12→18:04)
[2021-01-03] MEDS ORDERED: predniSONE 20 MG TAB PO SCH (09:00)
[2021-01-03 09:25] LABS: Albumin Level 2.4 gm/dl (3.4-5.0); BUN Creatinine Ratio 17.4 (10-20); Calcium 8.1 mg/dl (8.5-10.1); Creatinine Clr Calc Pharmacy 101.1 ml/min; Est GFR (African American) 121.6; Est GFR (Non-African American) 104.9; Potassium 3.8 mmol/L (3.5-5.1)
[2021-01-03 09:32] LABS: Albumin Globulin Ratio 0.6 (0.9-2); Bilirubin,Total 5.6 mg/dl (0.2-1); Globulin 4.2 gm/dl (2.5-4.0); Total Protein 6.6 gm/dl (6.4-8.2)
--- NOTE | 2021-01-03 09:35 | Hospitalist Progress Note ---
Date of Service January 03, 2021 Assessment & Plan (1) Hypoxia: Hypervolemia 2/2 decompensated cirrhosis with ascites. Pulmonary congestion heard on exam and seen on initial imaging which is improved today. Lasix given with good response. Steroids were stopped as clinical history was not consistent with a COPD exacerbation and want to avoid polypharmacy contributing to delirium. Antibiotics also deferred for now given the lack of fever, white count and clinical history consistent with hypervolemia. Would consider adding broad-spectrum antibiotics if patient were to spike a fever. For now hypoxia is resolved and he is overall improved. (2) Alcohol withdrawal delirium: He originally arrived intoxicated and now is withdrawing. He has required several doses of Ativan overnight to combat significant delirium and agitation. This may progress overnight and he may be a candidate for Precedex therapy in the ICU. For now continue Ativan as needed. (3) Atrial fibrillation with rapid ventricular response: He is not a candidate for anticoagulation 2/2 h/o alcoholism, h/o noncompliance with medical therapy and GI bleeding from esophageal varices. He is notably autoanticoagulated from severe liver disease with an INR 1.8-2.0 this admission. Cont scheduled diltiazem and atenolol once tolerating PO. In setting of delirium he was placed on scheduled IV Lopressor. (4) Alcoholic cirrhosis of liver with ascites: Ascites with abdominal pain present. Paracentesis with 3.1 L off negative for SBP. Ceftriaxone and albumin stopped. Improved with IV Lasix. Will ultimately need Lasix/aldactone once safe to tolerate PO. Cont low Na diet and 1.8L fluid restriction-currently n.p.o. (5) Alcoholic hepatitis with ascites: This is a questionable diagnosis. Elevated discriminant function, however, given absence of leukocytosis GI provider suspects this is largely related to cirrhosis rather than hepatitis and steroids were deferred. Additionally this patient has a known history of chronic abdominal pain. (6) Abdominal pain: there is a chronic component to this. SBP was ruled out. Cont to provide supportive care. (7) Alcohol abuse: Counseled to quit, pt not interested in rehab at this time. (8) Multiple thyroid nodules: Recently found to have marked bilateral lobe thyroid enlargeent by CT scan during an ER visit with several nodular densities of the supracalvicular and retroclavicular region concerning for neoplastic process. He was referred to ENT but has not been compliant with this. Workup is pending. Counseling patient of the importance of this given the consideration of thyroid lymphoma in the differential diagnosis. (9) Thrombocytopenia due to hypersplenism: Related to liver disease. (10) Tobacco use disorder: Advise strongly to quit. (11) Protein calorie malnutrition: (12) Anemia: chronic and around his baseline. No evience of overt bleeding at this time. Cont to monitor. (13) Coagulopathy: Related to liver disease (14) DVT prophylaxis: SCDs, patient is autoanticoagulated Full Code Dispo-to home when medically stable, cont PCU monitoring for now. The patient was made n.p.o. in the setting of altered mental status. This can be reevaluated if he wakes up and is not confused. Norma Barrera DO [facility] Hospitalist Admission and Anticipated Discharge Date Admission Date: December 30, 2020 Subjective 55 yo M with h/o alcohol abuse presented with abdominal and chest pain x 3 days. He has a history of alcoholic cirrhosis went for paracentesis with 3.1 L ascitic fluid taken off; no SBP infection was seen. He consistently had coarse rhonchi on lung exam each day he was here with some Lasix given intravenously. He is improved and is now oxygenating well off oxygen. He continues to withdraw from alcohol and exhibit delirium. He is still not safe to feed and is confabulating when questioned. He is oriented to name and year but thinks he is in [place]. ROS were limited as a result. I discussed the immediate care plan with the primary nurse. Review of Systems Review of Systems: Unobtainable due to cognitive status Physical Exam Physical Exam: CONSTITUTIONAL: WNWD, vitals as above, somnolent, occasionally wakes up and is disoriented. EYES: normal conjunctivae, no scleral icterus ENT: external ear and nose normal, MMM RESPIRATORY: normal respiratory effort, clear lungs to auscultation. Oxygenating well on room air, no inceased work of breathing. CARDIOVASCULAR: regular rate and rhythm, S1 and 2 heard without murmurs, gallops or rubs, no JVD, no peripheral edema CHEST: inspection of chest was normal GASTROINTESTINAL: soft, nondistended. MUSCULOSKELETAL: moves all extremities symmetrically SKIN: warm and dry NEUROLOGIC: disoriented Results & Data Results & Data ([facility]) Vital Signs (Past 12 Hours) Vital Signs Temp Pulse Pulse Resp BP BP Pulse Ox 01/03/21 07:29 36.4 C L 81 20 119/73 93 01/03/21 06:12 82 82 114/71 114/71 01/03/21 04:00 36.5 C 85 18 119/69 95 01/03/21 01:00 01/03/21 00:29 75 01/02/21 23:43 36.5 C 79 19 136/72 95 01/02/21 22:41 36.5 C 77 20 117/69 95 01/02/21 22:04 79 116/77 Pulse Ox 01/03/21 07:29 01/03/21 06:12 01/03/21 04:00 01/03/21 01:00 97 01/03/21 00:29 01/02/21 23:43 01/02/21 22:41 01/02/21 22:04 Laboratory Results [facility] 01/03/21 08:19 Sodium 136 Potassium 3.8 Chloride 104 Carbon Dioxide 29 BUN 12 Creatinine 0.71 Glucose 107 H Calcium 8.1 L Liver Function 01/03/21 Range/Units 08:19 Total Bilirubin 5.6 H (0.2-1) mg/dl AST 44 H (15-37) U/L ALT 19 (12-78) U/L Alkaline Phosphatase 92 (45-117) U/L Albumin 2.4 L (3.4-5.0) gm/dl Medications Administered Current Inpatient Medications Acetaminophen (Acetaminophen 325 Mg Tab) 325 mg PO Q6H PRN PRN Reason: Mild Pain Stop: 01/30/21 01:10 Last Admin: 12/31/20 05:58 Dose: 325 mg Documented by: Atenolol (Atenolol 25 Mg Tablet) 25 mg PO QAM [facility] Stop: 02/01/21 11:44 Last Admin: 01/02/21 16:18 Dose: Not Given Documented by: Diltiazem HCl (Diltiazem Hcl 60 Mg Tab) 60 mg PO TID [facility] Stop: 02/01/21 05:49 Last Admin: 01/02/21 21:13 Dose: Not Given Documented by: Folic Acid (Folic Acid 1 Mg Tab) 1 mg PO QAM [facility] Stop: 01/30/21 01:10 Last Admin: 01/02/21 08:49 Dose: 1 mg Documented by: Gabapentin (Gabapentin 600 Mg Tab) 600 mg PO Q24H [facility] Stop: 01/03/21 12:01 Lorazepam (Ativan) 1 mg in 2 mls @ 2 mls/min IV UD PRN; Protocol PRN Reason: EtOH Withdrawl AWSS Score 6,7 Stop: 01/30/21 01:10 Last Admin: 01/02/21 08:52 Dose: 2 mls/min Documented by: Lorazepam (Ativan) 3 mg in 6 mls @ 4 mls/min IV ONCE PRN; Protocol PRN Reason: EtOH Withdrawl AWSS Score >=10 Stop: 01/30/21 01:10 Last Admin: 01/03/21 00:41 Dose: 4 mls/min Documented by: Lorazepam (Ativan) 2 mg in 4 mls @ 4 mls/min IV UD PRN; Protocol PRN Reason: EtOH Withdrawl AWSS Score 8,9 Stop: 01/30/21 01:10 Last Admin: 01/02/21 20:08 Dose: 4 mls/min Documented by: Lactulose (Lactulose Syrup 20 Gm/30 Ml Udc) 20 gm PO BID17 PRN PRN Reason: give if no BM 2-3 times/24h Stop: 01/31/21 16:59 Last Admin: 01/01/21 17:47 Dose: 20 gm Documented by: Magnesium Oxide (Magnesium Oxide 400 Mg Tab) 400 mg PO BID [facility] Stop: 02/01/21 20:59 Last Admin: 01/02/21 21:13 Dose: Not Given Documented by: Metoprolol Tartrate (Metoprolol Tartrate 1 Mg/Ml Vial) 2.5 mg IV Q6 [facility] Stop: 02/02/21 05:59 Last Admin: 01/03/21 06:12 Dose: 2.5 mg Documented by: Multivitamins (Multivitamin Tab) 1 tab PO QAM [facility] Stop: 01/30/21 08:59 Last Admin: 01/02/21 08:49 Dose: 1 tab Documented by: Rifaximin (Rifaximin 550 Mg Tablet) 550 mg PO BID [facility] Stop: 01/31/21 20:59 Last Admin: 01/02/21 21:13 Dose: Not Given Documented by: Thiamine HCl (Thiamine Hcl 100 Mg Tab) 100 mg PO QAM [facility] Stop: 01/30/21 01:10 Last Admin: 01/02/21 08:49 Dose: 100 mg Documented by:
--- NOTE | 2021-01-03 10:00 | Cardiology Progress Note ---
Date of Service January 03, 2021 Assessment & Plan (1) Atrial fibrillation with RVR: The patient continues to be going through alcohol withdrawal. On telemetry he has been in a normal sinus rhythm without further atrial fibrillation since starting the beta-johnny. I would continue his current medical regimen including the beta-johnny. Atenolol is preferred in the situation however, if he is not able to take p.o. certainly metoprolol IV is acceptable. (2) Alcohol abuse: Delusional and going through withdrawal (3) Alcoholic cirrhosis of liver with ascites: Supportive care and encouragement to stop alcohol. Admission and Anticipated Discharge Date Admission Date: December 30, 2020 Subjective The patient is going through delirium tremors. Review of Systems Review of Systems: All systems reviewed & are unremarkable except as noted in Subjective Physical Exam Physical Exam: General: Delusional Head: normocephalic, no masses, lesions, tenderness or abnormalities Eyes: conjunctiva are pink and non-injected, sclera clear Neck: supple, no adenopathy, no bruits, normal jugular venous pulse, no hepatojugular reflux Chest: normal shape and normal respiratory effort Lungs: clear to auscultation and percussion Cardiac Exam: - regular rate & rhythm, no murmurs gallops or rubs - normal S1, normal S2 Pulses: 2(+) throughout Abdomen: Distended abdomen with fluid wave and hepatomegaly. Musculoskeletal: no gait disturbance, no joint inflammation, no deforming arthritis Extremities: no edema and no cyanosis Neuro: grossly normal exam Results & Data ([facility]) Vital Signs (Past 12 Hours) Vital Signs Temp Pulse Pulse Resp BP BP Pulse Ox 01/03/21 07:29 36.4 C L 81 20 119/73 93 01/03/21 06:12 82 82 114/71 114/71 01/03/21 04:00 36.5 C 85 18 119/69 95 01/03/21 01:00 01/03/21 00:29 75 01/02/21 23:43 36.5 C 79 19 136/72 95 01/02/21 22:41 36.5 C 77 20 117/69 95 01/02/21 22:04 79 116/77 Pulse Ox 01/03/21 07:29 01/03/21 06:12 01/03/21 04:00 01/03/21 01:00 97 01/03/21 00:29 01/02/21 23:43 01/02/21 22:41 01/02/21 22:04 Laboratory Results Laboratory Results - last 24 hr 01/03/21 08:19 Sodium 136 Potassium 3.8 Chloride 104 Carbon Dioxide 29 Anion Gap 3.0 BUN 12 Creatinine 0.71 Est Cr Clr Drug Dosing 101.1 Est GFR ( Amer) 121.6 Est GFR (Non-Af Amer) 104.9 BUN/Creatinine Ratio 17.4 Glucose 107 H Calcium 8.1 L Magnesium 2.0 Total Bilirubin 5.6 H AST 44 H ALT 19 Alkaline Phosphatase 92 Total Protein 6.6 Albumin 2.4 L Globulin 4.2 H Albumin/Globulin Ratio 0.6 L Diagnostic Findings No additional atrial fibrillation over the past 24 hours. Medications Administered Current Inpatient Medications Acetaminophen (Acetaminophen 325 Mg Tab) 325 mg PO Q6H PRN PRN Reason: Mild Pain Stop: 01/30/21 01:10 Last Admin: 12/31/20 05:58 Dose: 325 mg Documented by: Atenolol (A[facility]olol 25 Mg Tablet) [facility] Stop: 02/01/21 11:44 Last Admin: 01/02/21 16:18 Dose: Not Given Documented by: Diltiazem HCl (Diltiazem Hcl 60 Mg Tab) 60 mg PO TID [facility] Stop: 02/01/21 05:49 Last Admin: 01/02/21 21:13 Dose: Not Given Documented by: Folic Acid (Folic Acid 1 Mg Tab) 1 mg PO QAM [facility] Stop: 01/30/21 01:10 Last Admin: 01/02/21 08:49 Dose: 1 mg Documented by: Gabapentin (Gabapentin 600 Mg Tab) 600 mg PO Q24H [facility] Stop: 01/03/21 12:01 Lorazepam (Ativan) 1 mg in 2 mls @ 2 mls/min IV UD PRN; Protocol PRN Reason: EtOH Withdrawl AWSS Score 6,7 Stop: 01/30/21 01:10 Last Admin: 01/02/21 08:52 Dose: 2 mls/min Documented by: Lorazepam (Ativan) 3 mg in 6 mls @ 4 mls/min IV ONCE PRN; Protocol PRN Reason: EtOH Withdrawl AWSS Score >=10 Stop: 01/30/21 01:10 Last Admin: 01/03/21 00:41 Dose: 4 mls/min Documented by: Lorazepam (Ativan) 2 mg in 4 mls @ 4 mls/min IV UD PRN; Protocol PRN Reason: EtOH Withdrawl AWSS Score 8,9 Stop: 01/30/21 01:10 Last Admin: 01/02/21 20:08 Dose: 4 mls/min Documented by: Lactulose (Lactulose Syrup 20 Gm/30 Ml Udc) 20 gm PO BID17 PRN PRN Reason: give if no BM 2-3 times/24h Stop: 01/31/21 16:59 Last Admin: 01/01/21 17:47 Dose: 20 gm Documented by: Magnesium Oxide (Magnesium Oxide 400 Mg Tab) 400 mg PO BID [facility] Stop: 02/01/21 20:59 Last Admin: 01/02/21 21:13 Dose: Not Given Documented by: Metoprolol Tartrate (Metoprolol Tartrate 1 Mg/Ml Vial) 2.5 mg IV Q6 [facility] Stop: 02/02/21 05:59 Last Admin: 01/03/21 06:12 Dose: 2.5 mg Documented by: Multivitamins (Multivitamin Tab) 1 tab PO QAM [facility] Stop: 01/30/21 08:59 Last Admin: 01/02/21 08:49 Dose: 1 tab Documented by: Rifaximin (Rifaximin 550 Mg Tablet) 550 mg PO BID [facility] Stop: 01/31/21 20:59 Last Admin: 01/02/21 21:13 Dose: Not Given Documented by: Thiamine HCl (Thiamine Hcl 100 Mg Tab) 100 mg PO QAM [facility] Stop: 01/30/21 01:10 Last Admin: 01/02/21 08:49 Dose: 100 mg Documented by:
[2021-01-03] MEDS: THIAMINE HCL 100 MG TAB PO SCH (10:03)
[2021-01-03] MEDS: rifAXIMin 550 MG TABLET PO SCH ×2 (10:03→20:38)
[2021-01-03] MEDS: MULTIVITAMIN TAB PO SCH (10:03)
[2021-01-03] MEDS: MAGNESIUM OXIDE 400 MG TAB PO SCH ×2 (10:03→20:38)
[2021-01-03] MEDS: FOLIC ACID 1 MG TAB PO SCH (10:03)
[2021-01-03] MEDS: dilTIAZem HCl 60 MG TAB PO SCH ×3 (10:03→20:38)
--- NOTE | 2021-01-03 10:28 | Gastroenterology Progress Note ---
Date of Service January 03, 2021 Assessment & Plan (1) Alcoholic cirrhosis of liver with ascites: 55-year-old male with alcoholic cirrhosis with active EtOH use, complicated by ascites, esophageal varices, ? HE, portal hypertension, chronic pancreatitis, thrombocytopenia, PAF, history of medical noncompliance, admitted with chest/abd pain, found to have A-fib with RVR, and GI consulted for ascites. He has chronic abdominal pain, in the setting of abdominal wall hernias, and apparently is to have surgery evaluation for this (though surgery would likely lead to further decompensation). - Mgt of ETOH withdrawal per primary service - Should be on Lasix 40 mg daily and Aldactone 100 mg daily for h/o ascites once on POs - Xifaxan 550 mg BID with ? h/o HE when back on POs - Meld and DF elevated though would defer use of steroids as numbers likely driven by underlying cirrhosis - Appreciate cardiology and primary service mgmt of A-fib - Encouraged EtOH cessation; consider referral to AA/rehab - Low NA diet, less than 2G daily - Less than 2G Tylenol containing products if using - No NSAIDs - Recommend GI f/u as an outpt for ongoing mgmt of his cirrhosis Admission and Anticipated Discharge Date Admission Date: December 30, 2020 Subjective Continues to have s/s of ETOH withdrawal. Review of Systems Review of Systems: Unobtainable due to cognitive status Physical Exam Constitutional: WD/WN, vitals as above Respiratory: normal respiratory effort, lungs clear to auscultation Cardiovascular: RRR, no murmur, no edema Gastrointestinal (Abdomen): normal bowel sounds, soft, nontender, no hepatosplenomegaly Inspection/Auscultation: + abdomen distended Neurologic: + confused Results & Data ([facility]) Vital Signs (Past 12 Hours) Vital Signs Temp Pulse Pulse Resp BP BP Pulse Ox 01/03/21 07:29 36.4 C L 81 20 119/73 93 01/03/21 06:12 82 82 114/71 114/71 01/03/21 04:00 36.5 C 85 18 119/69 95 01/03/21 01:00 01/03/21 00:29 75 01/02/21 23:43 36.5 C 79 19 136/72 95 01/02/21 22:41 36.5 C 77 20 117/69 95 Pulse Ox 01/03/21 07:29 01/03/21 06:12 01/03/21 04:00 01/03/21 01:00 97 01/03/21 00:29 01/02/21 23:43 01/02/21 22:41
[2021-01-03] MEDS ORDERED: GABAPENTIN 600 MG TAB PO SCH (12:00)
[2021-01-03] MEDS ORDERED: LACTULOSE 200 GM, WATER, STERILE IRRIG 700 ML, BARCODE IDENTIFIER 1 EA PR SCH (21:45)
[2021-01-03] MEDS: LORazepam 1 MG/2 ML VIAL IV PRN (22:34)
[2021-01-03] MEDS ORDERED: THIAMINE HCL 100 MG in SYRINGE 9 ML IV STA (23:53)
[2021-01-03] MEDS ORDERED: bisacodyL 10 MG SUPP PR STA (23:54)
[2021-01-04] MEDS: METOPROLOL TARTRATE 1 MG/ML VIAL IV SCH ×4 (00:38→18:43)
[2021-01-04] MEDS: LORazepam 2 MG/4 ML VIAL IV PRN (01:54)
--- NOTE | 2021-01-04 09:17 | Hospitalist Progress Note ---
Date of Service January 04, 2021 Assessment & Plan (1) Hypoxia: Hypervolemia 2/2 decompensated cirrhosis with ascites. Pulmonary congestion improved with recent Lasix. Cont to dose PRN, however, at this point he has been strict NPO without any water for >48 hours. Giving 2 bags of fluid to maintain hydration status. Lasix given with good response. Steroids were stopped as clinical history was not consistent with a COPD exacerbation and want to avoid polypharmacy contributing to delirium. Antibiotics also deferred for now given the lack of fever, white count and clinical history consistent with hypervolemia. Would consider adding broad-spectrum antibiotics if patient were to spike a fever. For now hypoxia is resolved and he is overall improved. These have been off now for a couple of days and he is looking improved overall. (2) Alcohol withdrawal delirium: He originally arrived intoxicated and now is withdrawing. He has required several doses of Ativan overnight to combat significant delirium and agitation. This may progress overnight and he may be a candidate for Precedex therapy in the ICU. For now continue Ativan as needed. (3) Atrial fibrillation with rapid ventricular response: Maintaining in sinus rhythm overnight on telemetry review. He is not a candidate for anticoagulation 2/2 h/o alcoholism, h/o noncompliance with medical therapy and GI bleeding from esophageal varices. He is notably autoanticoagulated from severe liver disease with an INR 1.8-2.0 this admission. Cont scheduled diltiazem and atenolol once tolerating PO. In setting of delirium he was placed on scheduled IV Lopressor with hold parameters. (4) Alcoholic cirrhosis of liver with ascites: Ascites with abdominal pain present. Paracentesis with 3.1 L off negative for SBP. Ceftriaxone and albumin stopped. Improved with IV Lasix. Will ultimately need Lasix/aldactone once safe to tolerate PO. Cont low Na diet and 1.8L fluid restriction-currently n.p.o. (5) Alcoholic hepatitis with ascites: This is a questionable diagnosis. Elevated discriminant function, however, given absence of leukocytosis GI provider suspects this is largely related to cirrhosis rather than hepatitis and steroids were deferred. Additionally this patient has a known history of chronic abdominal pain. (6) Abdominal pain: there is a chronic component to this. SBP was ruled out. Cont to provide supportive care. (7) Alcohol abuse: Counseled to quit, pt not interested in rehab at this time. (8) Multiple thyroid nodules: Recently found to have marked bilateral lobe thyroid enlargeent by CT scan during an ER visit with several nodular densities of the supracalvicular and retroclavicular region concerning for neoplastic process. He was referred to ENT but has not been compliant with this. Workup is pending. Counseling patient of the importance of this given the consideration of thyroid lymphoma in the differential diagnosis. (9) Thrombocytopenia due to hypersplenism: Related to liver disease. (10) Tobacco use disorder: Advise strongly to quit. (11) Protein calorie malnutrition: Encourage PO once eating again. (12) Anemia: chronic and around his baseline. No evience of overt bleeding at this time. Cont to monitor. (13) Coagulopathy: Related to liver disease (14) DVT prophylaxis: SCDs, patient is autoanticoagulated Full Code Dispo-to home when medically stable, cont PCU monitoring for now. The patient was made n.p.o. in the setting of altered mental status. This can be reevaluated if he wakes up and is not confused. Norma Barrera DO [facility] Hospitalist Admission and Anticipated Discharge Date Admission Date: December 30, 2020 Subjective 55 yo M with h/o alcohol abuse presented with abdominal and chest pain x 3 days. He has a history of alcoholic cirrhosis went for paracentesis with 3.1 L ascitic fluid taken off; no SBP infection was seen. He consistently had coarse rhonchi on lung exam each day he was here with some Lasix given intravenously. Respiratory status has now improved. He continues to withdraw from alcohol and exhibit delirium. He is still not safe to feed and is confabulating when questioned. ROS were limited as a result. I discussed the immediate care plan with the primary nurse. Review of Systems Review of Systems: Unobtainable due to cognitive status Physical Exam Physical Exam: CONSTITUTIONAL: WNWD, vitals as above, somnolent, occasionally wakes up and is disoriented. EYES: normal conjunctivae, no scleral icterus ENT: external ear and nose normal, MMM RESPIRATORY: normal respiratory effort, some occasional upper airway sounds and very rare rhonchi at bases. Otherwise clear to auscultation and improved from yesterday. Oxygenating well on room air, no increased work of breathing. CARDIOVASCULAR: regular rate and rhythm, S1 and 2 heard without murmurs, gallops or rubs, no JVD, no peripheral edema CHEST: inspection of chest was normal GASTROINTESTINAL: soft, nondistended. MUSCULOSKELETAL: moves all extremities symmetrically SKIN: warm and dry NEUROLOGIC: disoriented Results & Data Results & Data ([facility]) Vital Signs (Past 12 Hours) Vital Signs Temp Pulse Pulse Resp BP BP Pulse Ox 01/04/21 08:30 36.5 C 78 20 133/88 93 01/04/21 05:58 79 79 129/79 129/79 01/04/21 05:45 90 01/04/21 03:04 36.5 C 80 19 135/76 98 01/04/21 01:50 36.7 C 80 24 138/81 98 01/04/21 00:38 81 81 139/82 139/82 01/03/21 23:25 36.9 C 87 17 134/79 98 01/03/21 22:35 88 20 136/85 01/03/21 22:16 36.7 C 93 H 24 151/83 H 97 Laboratory Results [facility] 01/03/21 08:19 Sodium 136 Potassium 3.8 Chloride 104 Carbon Dioxide 29 BUN 12 Creatinine 0.71 Glucose 107 H Calcium 8.1 L Liver Function 01/03/21 Range/Units 08:19 Total Bilirubin 5.6 H (0.2-1) mg/dl AST 44 H (15-37) U/L ALT 19 (12-78) U/L Alkaline Phosphatase 92 (45-117) U/L Albumin 2.4 L (3.4-5.0) gm/dl Medications Administered Current Inpatient Medications Acetaminophen (Acetaminophen 325 Mg Tab) 325 mg PO Q6H PRN PRN Reason: Mild Pain Stop: 01/30/21 01:10 Last Admin: 12/31/20 05:58 Dose: 325 mg Documented by: Atenolol (Atenolol 25 Mg Tablet) 25 mg PO QAM [facility] Stop: 02/01/21 11:44 Last Admin: 01/02/21 16:18 Dose: Not Given Documented by: Diltiazem HCl (Diltiazem Hcl 60 Mg Tab) 60 mg PO TID [facility] Stop: 02/01/21 05:49 Last Admin: 01/03/21 20:38 Dose: Not Given Documented by: Folic Acid (Folic Acid 1 Mg Tab) 1 mg PO QAM [facility] Stop: 01/30/21 01:10 Last Admin: 01/03/21 10:03 Dose: Not Given Documented by: Lorazepam (Ativan) 1 mg in 2 mls @ 2 mls/min IV UD PRN; Protocol PRN Reason: EtOH Withdrawl AWSS Score 6,7 Stop: 01/30/21 01:10 Last Admin: 01/03/21 22:34 Dose: 2 mls/min Documented by: Lorazepam (Ativan) 3 mg in 6 mls @ 4 mls/min IV ONCE PRN; Protocol PRN Reason: EtOH Withdrawl AWSS Score >=10 Stop: 01/30/21 01:10 Last Admin: 01/03/21 00:41 Dose: 4 mls/min Documented by: Lorazepam (Ativan) 2 mg in 4 mls @ 4 mls/min IV UD PRN; Protocol PRN Reason: EtOH Withdrawl AWSS Score 8,9 Stop: 01/30/21 01:10 Last Admin: 01/04/21 01:54 Dose: 4 mls/min Documented by: Thiamine HCl 100 mg/ Syringe 10 mls @ 2 mls/min IV QAM [facility] Stop: 02/03/21 08:59 Lactulose (Lactulose Syrup 20 Gm/30 Ml Udc) 20 gm PO BID17 PRN PRN Reason: give if no BM 2-3 times/24h Stop: 01/31/21 16:59 Last Admin: 01/01/21 17:47 Dose: 20 gm Documented by: Magnesium Oxide (Magnesium Oxide 400 Mg Tab) 400 mg PO BID [facility] Stop: 02/01/21 20:59 Last Admin: 01/03/21 20:38 Dose: Not Given Documented by: Metoprolol Tartrate (Metoprolol Tartrate 1 Mg/Ml Vial) 2.5 mg IV Q6 [facility] Stop: 02/02/21 05:59 Last Admin: 01/04/21 05:58 Dose: 2.5 mg Documented by: Multivitamins (Multivitamin Tab) 1 tab PO QAM [facility] Stop: 01/30/21 08:59 Last Admin: 01/03/21 10:03 Dose: Not Given Documented by: Rifaximin (Rifaximin 550 Mg Tablet) 550 mg PO BID [facility] Stop: 01/31/21 20:59 Last Admin: 01/03/21 20:38 Dose: Not Given Documented by: Thiamine HCl (Thiamine Hcl 100 Mg Tab) [facility] Stop: 01/30/21 01:10 Last Admin: 01/03/21 10:03 Dose: Not Given Documented by:
[2021-01-04] MEDS: dilTIAZem HCl 60 MG TAB PO SCH ×3 (09:28→20:04)
[2021-01-04] MEDS: FOLIC ACID 1 MG TAB PO SCH (09:28)
[2021-01-04] MEDS: rifAXIMin 550 MG TABLET PO SCH ×2 (09:29→20:04)
[2021-01-04] MEDS: MULTIVITAMIN TAB PO SCH (09:29)
[2021-01-04] MEDS: MAGNESIUM OXIDE 400 MG TAB PO SCH ×2 (09:29→20:04)
[2021-01-04] MEDS: THIAMINE HCL 100 MG in SYRINGE 9 ML IV SCH (09:29)
--- NOTE | 2021-01-04 09:45 | Cardiology Progress Note ---
Date of Service January 04, 2021 Assessment & Plan (1) Atrial fibrillation with RVR: The patient is maintaining sinus rhythm. Continue current treatment. (2) Alcohol abuse: Delusional and going through withdrawal (3) Alcoholic cirrhosis of liver with ascites: Supportive care and encouragement to stop alcohol. Admission and Anticipated Discharge Date Admission Date: December 30, 2020 Subjective The patient is sedated. He had an otherwise uneventful night. Review of Systems Review of Systems: All systems reviewed & are unremarkable except as noted in Subjective Physical Exam Physical Exam: General: no acute distress and stated age Head: normocephalic, no masses, lesions, tenderness or abnormalities Eyes: conjunctiva are pink and non-injected, sclera clear Neck: supple, no adenopathy, no bruits, normal jugular venous pulse, no hepatojugular reflux Chest: normal shape and normal respiratory effort Lungs: clear to auscultation and percussion Cardiac Exam: - regular rate & rhythm, no murmurs gallops or rubs - normal S1, normal S2 Pulses: 2(+) throughout Abdomen: Abdomen has a fluid wave. There is hepatosplenomegaly. Musculoskeletal: no gait disturbance, no joint inflammation, no deforming arthritis Extremities: no edema and no cyanosis Neuro: grossly normal exam Results & Data ([facility]) Vital Signs (Past 12 Hours) Vital Signs Temp Pulse Pulse Resp BP BP Pulse Ox 01/04/21 08:30 36.5 C 78 20 133/88 93 01/04/21 05:58 79 79 129/79 129/79 01/04/21 05:45 90 01/04/21 03:04 36.5 C 80 19 135/76 98 01/04/21 01:50 36.7 C 80 24 138/81 98 01/04/21 00:38 81 81 139/82 139/82 01/03/21 23:25 36.9 C 87 17 134/79 98 01/03/21 22:35 88 20 136/85 01/03/21 22:16 36.7 C 93 H 24 151/83 H 97 Laboratory Results Laboratory Results - last 24 hr 01/03/21 22:49 Ammonia 12.3 Medications Administered Current Inpatient Medications Acetaminophen (Acetaminophen 325 Mg Tab) 325 mg PO Q6H PRN PRN Reason: Mild Pain Stop: 01/30/21 01:10 Last Admin: 12/31/20 05:58 Dose: 325 mg Documented by: Atenolol (Atenolol 25 Mg Tablet) 25 mg PO QAM [facility] Stop: 02/01/21 11:44 Last Admin: 01/02/21 16:18 Dose: Not Given Documented by: Diltiazem HCl (Diltiazem Hcl 60 Mg Tab) 60 mg PO TID [facility] Stop: 02/01/21 05:49 Last Admin: 01/04/21 09:28 Dose: Not Given Documented by: Folic Acid (Folic Acid 1 Mg Tab) 1 mg PO QAM [facility] Stop: 01/30/21 01:10 Last Admin: 01/04/21 09:28 Dose: Not Given Documented by: Lorazepam (Ativan) 1 mg in 2 mls @ 2 mls/min IV UD PRN; Protocol PRN Reason: EtOH Withdrawl AWSS Score 6,7 Stop: 01/30/21 01:10 Last Admin: 01/03/21 22:34 Dose: 2 mls/min Documented by: Lorazepam (Ativan) 3 mg in 6 mls @ 4 mls/min IV ONCE PRN; Protocol PRN Reason: EtOH Withdrawl AWSS Score >=10 Stop: 01/30/21 01:10 Last Admin: 01/03/21 00:41 Dose: 4 mls/min Documented by: Lorazepam (Ativan) 2 mg in 4 mls @ 4 mls/min IV UD PRN; Protocol PRN Reason: EtOH Withdrawl AWSS Score 8,9 Stop: 01/30/21 01:10 Last Admin: 01/04/21 01:54 Dose: 4 mls/min Documented by: Thiamine HCl 100 mg/ Syringe 10 mls @ 2 mls/min IV QAM [facility] Stop: 02/03/21 08:59 Last Admin: 01/04/21 09:29 Dose: Not Given Documented by: Lactulose (Lactulose Syrup 20 Gm/30 Ml Udc) 20 gm PO BID17 PRN PRN Reason: give if no BM 2-3 times/24h Stop: 01/31/21 16:59 Last Admin: 01/01/21 17:47 Dose: 20 gm Documented by: Magnesium Oxide (Magnesium Oxide 400 Mg Tab) 400 mg PO BID [facility] Stop: 02/01/21 20:59 Last Admin: 01/04/21 09:29 Dose: Not Given Documented by: Metoprolol Tartrate (Metoprolol Tartrate 1 Mg/Ml Vial) 2.5 mg IV Q6 [facility] Stop: 02/02/21 05:59 Last Admin: 01/04/21 05:58 Dose: 2.5 mg Documented by: Multivitamins (Multivitamin Tab) 1 tab PO [facility] Stop: 01/30/21 08:59 Last Admin: 01/04/21 09:29 Dose: Not Given Documented by: Rifaximin (Rifaximin 550 Mg Tablet) 550 mg PO BID [facility] Stop: 01/31/21 20:59 Last Admin: 01/04/21 09:29 Dose: Not Given Documented by: Thiamine HCl (Thiamine Hcl 100 Mg Tab) 100 mg PO [facility] Stop: 01/30/21 01:10 Last Admin: 01/03/21 10:03 Dose: Not Given Documented by:
[2021-01-04] MEDS: D5W AND 1/2NSS + 20MEQ KCL 20 MEQ/1,000 ML BAG IV SCH (13:50)
[2021-01-04] MEDS: LORazepam 3 MG/6 ML VIAL IV PRN (19:56)
[2021-01-05] MEDS: METOPROLOL TARTRATE 1 MG/ML VIAL IV SCH ×4 (00:28→18:22)
[2021-01-05] MEDS: D5W AND 1/2NSS + 20MEQ KCL 20 MEQ/1,000 ML BAG IV SCH (04:56)
[2021-01-05 06:18] LABS: Hemoglobin 11.2 g/dL (14.0-18.0); Mean Corpuscular Hemoglobin 37.3 pg (25-34); Mean Corpuscular Volume 106.7 fL (80-100); Mean Platelet Volume 11.5 fL (7.4-10.4); Platelet Count 44 K/uL (130-400); RDW Coefficient of Variation 14.8 % (11.5-14.5); RDW Standard Deviation 56.7 fL (36.4-46.3); White Blood Count 6.34 K/uL (4.8-10.8)
[2021-01-05 06:22] LABS: INR 2.3 (0.9-1.1); Prothrombin Time 21.5 Seconds (9.0-12.0)
[2021-01-05 06:53] LABS: BUN Creatinine Ratio 16.5 (10-20); Calcium 8.5 mg/dl (8.5-10.1); Creatinine Clr Calc Pharmacy 112.1 ml/min; Est GFR (African American) 126.9; Est GFR (Non-African American) 109.5; Magnesium 1.6 mg/dl (1.8-2.4); Phosphorus 2.9 mg/dl (2.5-4.9); Potassium 3.3 mmol/L (3.5-5.1)
[2021-01-05] MEDS ORDERED: MAGNESIUM SULFATE / D5W 1 GM/100 ML BAG IV ONE (09:30)
[2021-01-05] MEDS: POTASSIUM CHLORIDE / WTR 10 MEQ/100 ML PLCT IV SCH ×4 (09:48→18:22)
--- NOTE | 2021-01-05 09:49 | Hospitalist Progress Note ---
Date of Service January 05, 2021 Assessment & Plan (1) Hypoxia: Initially Hypervolemia 2/2 decompensated cirrhosis with ascites. Pulmonary congestion improved with recent Lasix. Cont to dose PRN, however, at this point he has been strict NPO without any water for >48 hours. Giving 2 bags of fluid to maintain hydration status. Lasix given with good response. Steroids were stopped as clinical history was not consistent with a COPD exacerbation and want to avoid polypharmacy contributing to delirium. Antibiotics also deferred for now given the lack of fever, white count and clinical history consistent with hypervolemia. Would consider adding broad- spectrum antibiotics if patient were to spike a fever. Pt on oxymask, has a cough (?chronic), will repeat CXR and will obtain procalcitonin (2) Alcohol withdrawal delirium: He originally arrived intoxicated and now is withdrawing. He has required several doses of Ativan overnight to combat significant delirium and agitation. This may progress overnight and he may be a candidate for Precedex therapy in the ICU. For now continue Ativan as needed. (3) Atrial fibrillation with rapid ventricular response: Maintaining in sinus rhythm overnight on telemetry review. He is not a candidate for anticoagulation 2/2 h/o alcoholism, h/o noncompliance with medical therapy and GI bleeding from esophageal varices. He is notably autoanticoagula quan from severe liver disease with an INR 1.8-2.0 this admission. Cont scheduled diltiazem and atenolol once tolerating PO. In setting of delirium he was placed on scheduled IV Lopressor with hold parameters. (4) Alcoholic cirrhosis of liver with ascites: Ascites with abdominal pain present. Paracentesis with 3.1 L off negative for SBP. Ceftriaxone and albumin stopped. Improved with IV Lasix. Will ultimately need Lasix/aldactone once safe to tolerate PO. Cont low Na diet and 1.8L fluid restriction-currently n.p.o. (5) Alcoholic hepatitis with ascites: This is a questionable diagnosis. Elevated discriminant function, however, given absence of leukocytosis GI provider suspects this is largely related to cirrhosis rather than hepatitis and steroids were deferred. Additionally this patient has a known history of chronic abdominal pain. (6) Abdominal pain: there is a chronic component to this. SBP was ruled out. Cont to provide supportive care. (7) Alcohol abuse: Counseled to quit, pt not interested in rehab at this time. (8) Multiple thyroid nodules: Recently found to have marked bilateral lobe thyroid enlargeent by CT scan during an ER visit with several nodular densities of the supracalvicular and retroclavicular region concerning for neoplastic process. He was referred to ENT but has not been compliant with this. Workup is pending. Counseling patient of the importance of this given the consideration of thyroid lymphoma in the differential diagnosis. (9) Thrombocytopenia due to hypersplenism: Related to liver disease. Peripheral smear ordered (10) Tobacco use disorder: Advise strongly to quit. (11) Protein calorie malnutrition: Encourage PO once eating again. (12) Anemia: chronic and around his baseline. No evidence of overt bleeding at this time. Cont to monitor. Peripheral smear ordered (13) Coagulopathy: Related to liver disease (14) DVT prophylaxis: SCDs, coagulopathy d/t liver dis. Full Code Dispo-to home when medically stable, cont PCU monitoring for now. The patient was made n.p.o. in the setting of altered mental status. This can be reevaluated if he wakes up and is not confused. Admission and Anticipated Discharge Date Admission Date: December 30, 2020 Subjective 55 yo M with h/o alcohol abuse presented with abdominal and chest pain x 3 days. History of alcoholic cirrhosis went for paracentesis with 3.1 L ascitic fluid taken off; no SBP infection was seen. He consistently had coarse rhonchi on lung exam each day he was here with some Lasix given intravenously. Respiratory status has now improved. He continues to withdraw from alcohol and exhibit delirium. ROS were limited as a result. I discussed the immediate care plan with the primary nurse. Per nursing staff pt more cooperative and was helped to the bathroom. On my exam pt somnolent and barely answers any questions. Occasional cough, uses oxymask Will obtain follow up CXR Review of Systems Review of Systems: Unobtainable due to cognitive status Physical Exam Physical Exam: CONSTITUTIONAL: WNWD, vitals as above, somnolent, occasionally wakes up and is disoriented. EYES: normal conjunctivae, no scleral icterus ENT: external ear and nose normal, MMM RESPIRATORY: normal respiratory effort, No increased work of breathing, but uses oxymask. some occasional rhonchi at bases. CARDIOVASCULAR: regular rate and rhythm, S1 and 2 heard without murmurs, gallops or rubs, no JVD, no peripheral edema CHEST: inspection of chest was normal GASTROINTESTINAL: soft abdomen, nondistended, + bowel sounds MUSCULOSKELETAL: moves all extremities symmetrically, no LE edema SKIN: warm and dry NEUROLOGIC: disoriented Results & Data Results & Data ([facility]) Vital Signs (Past 12 Hours) Vital Signs Temp Pulse Pulse Resp BP BP Pulse Ox 01/05/21 07:46 36.8 C 72 19 131/74 99 01/05/21 06:04 75 124/75 01/05/21 04:00 36.9 C 75 21 124/75 98 01/05/21 00:28 77 125/76 01/04/21 23:50 36.6 C 77 19 125/76 96 Laboratory Results 01/05/21 01/05/21 01/05/21 Range/Units 09:18 09:18 09:18 WBC (4.8-10.8) K/uL RBC (4.7-6.1) M/uL Hgb (14.0-18.0) g/dL Hct (42-52) % MCV (80-100) fL MCH (25-34) pg MCHC (32-36) g/dL RDW Std Deviation (36.4-46.3) fL RDW Coeff of Hernandez (11.5-14.5) % Plt Count (130-400) K/uL MPV (7.4-10.4) fL Peripher Smr Path Cons PT (9.0-12.0) Seconds INR (0.9-1.1) Fibrinogen Pending Sodium (136-145) mmol/L Potassium (3.5-5.1) mmol/L Chloride (98-107) mmol/L Carbon Dioxide (21-32) mmol/L Anion Gap (3-11) BUN (7-18) mg/dl Creatinine (0.6-1.4) mg/dl Est Cr Clr Drug Dosing ml/min Est GFR ( Amer) Est GFR (Non-Af Amer) BUN/Creatinine Ratio (10-20) Glucose (70-99) mg/dl Calcium (8.5-10.1) mg/dl Phosphorus (2.5-4.9) mg/dl Magnesium (1.8-2.4) mg/dl Ammonia (11-32) umol/L Lactate Dehydrogenase Pending Procalcitonin Pending 01/05/21 01/05/21 01/05/21 Range/Units 09:18 05:55 05:55 WBC (4.8-10.8) K/uL RBC (4.7-6.1) M/uL Hgb (14.0-18.0) g/dL Hct (42-52) % MCV (80-100) fL MCH (25-34) pg MCHC (32-36) g/dL RDW Std Deviation (36.4-46.3) fL RDW Coeff of Hernandez (11.5-14.5) % Plt Count (130-400) K/uL MPV (7.4-10.4) fL Peripher Smr Path Cons Pending PT 21.5 H (9.0-12.0) Seconds INR 2.3 H (0.9-1.1) Fibrinogen Sodium (136-145) mmol/L Potassium (3.5-5.1) mmol/L Chloride (98-107) mmol/L Carbon Dioxide (21-32) mmol/L Anion Gap (3-11) BUN (7-18) mg/dl Creatinine (0.6-1.4) mg/dl Est Cr Clr Drug Dosing ml/min Est GFR ( Amer) Est GFR (Non-Af Amer) BUN/Creatinine Ratio (10-20) Glucose (70-99) mg/dl Calcium (8.5-10.1) mg/dl Phosphorus (2.5-4.9) mg/dl Magnesium (1.8-2.4) mg/dl Ammonia 26.0 (11-32) umol/L Lactate Dehydrogenase Procalcitonin 01/05/21 01/05/21 Range/Units 05:55 05:55 WBC 6.34 (4.8-10.8) K/uL RBC 3.00 L (4.7-6.1) M/uL Hgb 11.2 L (14.0-18.0) g/dL Hct 32.0 L (42-52) % MCV 106.7 H (80-100) fL MCH 37.3 H (25-34) pg MCHC 35.0 (32-36) g/dL RDW Std Deviation 56.7 H (36.4-46.3) fL RDW Coeff of Hernandez 14.8 H (11.5-14.5) % Plt Count 44 L (130-400) K/uL MPV 11.5 H (7.4-10.4) fL Peripher Smr Path Cons PT (9.0-12.0) Seconds INR (0.9-1.1) Fibrinogen Sodium 140 (136-145) mmol/L Potassium 3.3 L (3.5-5.1) mmol/L Chloride 109 H (98-107) mmol/L Carbon Dioxide 27 (21-32) mmol/L Anion Gap 4.0 (3-11) BUN 11 (7-18) mg/dl Creatinine 0.64 (0.6-1.4) mg/dl Est Cr Clr Drug Dosing 112.1 ml/min Est GFR ( Amer) 126.9 Est GFR (Non-Af Amer) 109.5 BUN/Creatinine Ratio 16.5 (10-20) Glucose 104 H (70-99) mg/dl Calcium 8.5 (8.5-10.1) mg/dl Phosphorus 2.9 (2.5-4.9) mg/dl Magnesium 1.6 L (1.8-2.4) mg/dl Ammonia (11-32) umol/L Lactate Dehydrogenase Procalcitonin Medications Administered Current Inpatient Medications Acetaminophen (Acetaminophen 325 Mg Tab) 325 mg PO Q6H PRN PRN Reason: Mild Pain Stop: 01/30/21 01:10 Last Admin: 12/31/20 05:58 Dose: 325 mg Documented by: Atenolol (Atenolol 25 Mg Tablet) 25 mg PO QAM [facility] Stop: 02/01/21 11:44 Last Admin: 01/02/21 16:18 Dose: Not Given Documented by: Diltiazem HCl (Diltiazem Hcl 60 Mg Tab) 60 mg PO TID [facility] Stop: 02/01/21 05:49 Last Admin: 01/04/21 20:04 Dose: Not Given Documented by: Folic Acid (Folic Acid 1 Mg Tab) 1 mg PO QAM [facility] Stop: 01/30/21 01:10 Last Admin: 01/04/21 09:28 Dose: Not Given Documented by: Guaifenesin (Guaifenesin 600 Mg Tabcr) 600 mg PO Q12 [facility] Stop: 02/04/21 08:59 Lorazepam (Ativan) 1 mg in 2 mls @ 2 mls/min IV UD PRN; Protocol PRN Reason: EtOH Withdrawl AWSS Score 6,7 Stop: 01/30/21 01:10 Last Admin: 01/03/21 22:34 Dose: 2 mls/min Documented by: Lorazepam (Ativan) 3 mg in 6 mls @ 4 mls/min IV ONCE PRN; Protocol PRN Reason: EtOH Withdrawl AWSS Score >=10 Stop: 01/30/21 01:10 Last Admin: 01/04/21 19:56 Dose: 4 mls/min Documented by: Lorazepam (Ativan) 2 mg in 4 mls @ 4 mls/min IV UD PRN; Protocol PRN Reason: EtOH Withdrawl AWSS Score 8,9 Stop: 01/30/21 01:10 Last Admin: 01/04/21 01:54 Dose: 4 mls/min Documented by: Thiamine HCl 100 mg/ Syringe 10 mls @ 2 mls/min IV QAM [facility] Stop: 02/03/21 08:59 Last Admin: 01/04/21 09:29 Dose: Not Given Documented by: Potassium Chloride/Dextrose/Sod Cl (D5w And 1/2nss + 20meq Kcl) 20 meq in 1,000 mls @ 60 mls/hr IV .[id number] [facility] Stop: 01/05/21 21:19 Last Admin: 01/05/21 04:56 Dose: 60 mls/hr Documented by: Potassium Chloride (K Uche / Wtr) 10 meq in 100 mls @ 100 mls/hr IV Q1H [facility] Stop: 01/05/21 11:29 Last Admin: 01/05/21 09:48 Dose: 100 mls/hr Documented by: Magnesium Sulfate/Dextrose (Magnesium Sulfate / D5w) 1 gm in 100 mls @ 50 mls/hr IV 0930 ONE Stop: 01/05/21 11:29 Last Admin: 01/05/21 09:46 Dose: 50 mls/hr Documented by: Lactulose (Lactulose Syrup 20 Gm/30 Ml Udc) 20 gm PO BID17 PRN PRN Reason: give if no BM 2-3 times/24h Stop: 01/31/21 16:59 Last Admin: 01/01/21 17:47 Dose: 20 gm Documented by: Magnesium Oxide (Magnesium Oxide 400 Mg Tab) 400 mg PO BID [facility] Stop: 02/01/21 20:59 Last Admin: 01/04/21 20:04 Dose: Not Given Documented by: Metoprolol Tartrate (Metoprolol Tartrate 1 Mg/Ml Vial) 2.5 mg IV Q6 [facility] Stop: 02/02/21 05:59 Last Admin: 01/05/21 06:04 Dose: 2.5 mg Documented by: Multivitamins ([facility]ivitamin Tab) [facility] Stop: 01/30/21 08:59 Last Admin: 01/04/21 09:29 Dose: Not Given Documented by: Rifaximin (Rifaximin 550 Mg Tablet) 550 mg PO BID [facility] Stop: 01/31/21 20:59 Last Admin: 01/04/21 20:04 Dose: Not Given Documented by: Thiamine HCl (Thiamine Hcl 100 Mg Tab) 100 mg PO QAM [facility] Stop: 01/30/21 01:10 Last Admin: 01/03/21 10:03 Dose: Not Given Documented by:
[2021-01-05] MEDS ORDERED: CYANOCOBALAMIN 1000 MCG/ML VIAL IM ONE (09:50)
[2021-01-05] MEDS: dilTIAZem HCl 60 MG TAB PO SCH ×3 (09:55→20:25)
[2021-01-05] MEDS: FOLIC ACID 1 MG TAB PO SCH (09:57)
[2021-01-05] MEDS: MAGNESIUM OXIDE 400 MG TAB PO SCH ×2 (09:59→20:25)
[2021-01-05] MEDS: MULTIVITAMIN TAB PO SCH (09:59)
[2021-01-05] MEDS: guaiFENesin 600 MG TABCR PO SCH ×2 (09:59→20:26)
[2021-01-05] MEDS: THIAMINE HCL 100 MG in SYRINGE 9 ML IV SCH (10:00)
[2021-01-05] MEDS: rifAXIMin 550 MG TABLET PO SCH ×2 (10:00→20:26)
[2021-01-05 10:07] LABS: Fibrinogen 94 mg/dl (184-400)
--- NOTE | 2021-01-05 10:31 | XRay Report ---
XR chest 1V portable HISTORY: follow up, cough, poss. pna? COMPARISON: Chest 01/02/2021. FINDINGS: No pneumothorax. No pleural effusions. The heart is normal in size. Interval progression of the interstitial thickening and patchy bilateral airspace opacities. This most pronounced within the right lower lobe. Findings favor a pneumonia. No change in the mild right tracheal deviation seconda ry to the left thyroid goiter. IMPRESSION: Interval progression of the patchy bilateral airspace opacities and interstitial thickening. This fav ors a multifocal pneumonia. Pulmonary edema could also have a similar appearance. ACT 112: Negative or not required by law. Electronically signed by: Villa Clinton M.D. 01/05/2021 10:30 AM
[2021-01-05] MEDS: NICOTINE 7 MG/24 HR TDSY TD SCH (11:15)
[2021-01-05] MEDS: FOLIC ACID 1 MG in SYRINGE 9.8 ML IV SCH (11:15)
--- NOTE | 2021-01-05 11:35 | Cardiology Progress Note ---
Date of Service January 05, 2021 Assessment & Plan (1) Atrial fibrillation with RVR: The patient is maintaining sinus rhythm. Continue current treatment. (2) Alcohol abuse: Delusional and going through withdrawal (3) Alcoholic cirrhosis of liver with ascites: Supportive care and encouragement to stop alcohol. Admission and Anticipated Discharge Date Admission Date: December 30, 2020 Subjective The patient continues to withdrawal from alcohol. He is also sedated. Review of Systems Review of Systems: All systems reviewed & are unremarkable except as noted in Subjective Physical Exam Physical Exam: General: no acute distress and stated age Head: normocephalic, no masses, lesions, tenderness or abnormalities Eyes: conjunctiva are pink and non-injected, sclera clear Neck: supple, no adenopathy, no bruits, normal jugular venous pulse, no hepatojugular reflux Chest: normal shape and normal respiratory effort Lungs: clear to auscultation and percussion Cardiac Exam: - regular rate & rhythm, no murmurs gallops or rubs - normal S1, normal S2 Pulses: 2(+) throughout Abdomen: abdomen soft, non-tender, no abnormal masses and no hepatosplenomegaly Musculoskeletal: no gait disturbance, no joint inflammation, no deforming arthritis Extremities: no edema and no cyanosis Neuro: grossly normal exam Results & Data ([facility]) Vital Signs (Past 12 Hours) Vital Signs Temp Pulse Pulse Resp BP BP Pulse Ox 01/05/21 11:08 36.7 C 75 19 123/72 97 01/05/21 07:46 36.8 C 72 19 131/74 99 01/05/21 06:04 75 124/75 01/05/21 04:00 36.9 C 75 21 124/75 98 01/05/21 00:28 77 125/76 01/04/21 23:50 36.6 C 77 19 125/76 96 Laboratory Results Laboratory Results - last 24 hr 01/05/21 01/05/21 01/05/21 05:55 05:55 05:55 WBC 6.34 RBC 3.00 L Hgb 11.2 L Hct 32.0 L MCV 106.7 H MCH 37.3 H MCHC 35.0 RDW Std Deviation 56.7 H RDW Coeff of Hernandez 14.8 H Plt Count 44 L MPV 11.5 H Peripher Smr Path Cons PT INR Fibrinogen Sodium 140 Potassium 3.3 L Chloride 109 H Carbon Dioxide 27 Anion Gap 4.0 BUN 11 Creatinine 0.64 Est Cr Clr Drug Dosing 112.1 Est GFR ( Amer) 126.9 Est GFR (Non-Af Amer) 109.5 BUN/Creatinine Ratio 16.5 Glucose 104 H Calcium 8.5 Phosphorus 2.9 Magnesium 1.6 L Ammonia 26.0 Lactate Dehydrogenase Procalcitonin 01/05/21 01/05/21 01/05/21 05:55 09:18 09:18 WBC RBC Hgb Hct MCV MCH MCHC RDW Std Deviation RDW Coeff of Hernandez Plt Count MPV Peripher Smr Path Cons Pending PT 21.5 H INR 2.3 H Fibrinogen 94 L* Sodium Potassium Chloride Carbon Dioxide Anion Gap BUN Creatinine Est Cr Clr Drug Dosing Est GFR ( Amer) Est GFR (Non-Af Amer) BUN/Creatinine Ratio Glucose Calcium Phosphorus Magnesium Ammonia Lactate Dehydrogenase Procalcitonin 01/05/21 01/05/21 09:18 09:18 WBC RBC Hgb Hct MCV MCH MCHC RDW Std Deviation RDW Coeff of Hernandez Plt Count MPV Peripher Smr Path Cons PT INR Fibrinogen Sodium Potassium Chloride Carbon Dioxide Anion Gap BUN Creatinine Est Cr Clr Drug Dosing Est GFR ( Amer) Est GFR (Non-Af Amer) BUN/Creatinine Ratio Glucose Calcium Phosphorus Magnesium Ammonia Lactate Dehydrogenase 217 Procalcitonin 0.18 Diagnostic Findings Telemetry indicates he is maintaining sinus rhythm on his current medications. Medications Administered Current Inpatient Medications Acetaminophen (Acetaminophen 325 Mg Tab) 325 mg PO Q6H PRN PRN Reason: Mild Pain Stop: 01/30/21 01:10 Last Admin: 12/31/20 05:58 Dose: 325 mg Documented by: Atenolol (Atenolol 25 Mg Tablet) 25 mg PO QAM ON LICENSE OF [facility] Stop: 02/01/21 11:44 Last Admin: 01/02/21 16:18 Dose: Not Given Documented by: Diltiazem HCl (Diltiazem Hcl 60 Mg Tab) 60 mg PO TID ON LICENSE OF [facility] Stop: 02/01/21 05:49 Last Admin: 01/05/21 09:55 Dose: Not Given Documented by: Folic Acid (Folic Acid 1 Mg Tab) 1 mg PO QAM ON LICENSE OF [facility] Stop: 01/30/21 01:10 Last Admin: 01/05/21 09:57 Dose: Not Given Documented by: Guaifenesin (Guaifenesin 600 Mg Tabcr) 600 mg PO Q12 ON LICENSE OF [facility] Stop: 02/04/21 08:59 Last Admin: 01/05/21 09:59 Dose: Not Given Documented by: Lorazepam (Ativan) 1 mg in 2 mls @ 2 mls/min IV UD PRN; Protocol PRN Reason: EtOH Withdrawl AWSS Score 6,7 Stop: 01/30/21 01:10 Last Admin: 01/03/21 22:34 Dose: 2 mls/min Documented by: Lorazepam (Ativan) 3 mg in 6 mls @ 4 mls/min IV ONCE PRN; Protocol PRN Reason: EtOH Withdrawl AWSS Score >=10 Stop: 01/30/21 01:10 Last Admin: 01/04/21 19:56 Dose: 4 mls/min Documented by: Lorazepam (Ativan) 2 mg in 4 mls @ 4 mls/min IV UD PRN; Protocol PRN Reason: EtOH Withdrawl AWSS Score 8,9 Stop: 01/30/21 01:10 Last Admin: 01/04/21 01:54 Dose: 4 mls/min Documented by: Thiamine HCl 100 mg/ Syringe 10 mls @ 2 mls/min IV QAM ON LICENSE OF [facility] Stop: 02/03/21 08:59 Last Admin: 01/05/21 10:00 Dose: Not Given Documented by: Potassium Chloride/Dextrose/Sod Cl (D5w And 1/2nss + 20meq Kcl) 20 meq in 1,000 mls @ 60 mls/hr IV .[id number] ON LICENSE OF [facility] Stop: 01/05/21 21:19 Last Admin: 01/05/21 04:56 Dose: 60 mls/hr Documented by: Folic Acid 1 mg/ Syringe 10 mls @ 5 mls/min IV QAM ON LICENSE OF [facility] Stop: 02/04/21 09:59 Last Admin: 01/05/21 11:15 Dose: 5 mls/min Documented by: Lactulose (Lactulose Syrup 20 Gm/30 Ml Udc) 20 gm PO [id number] PRN PRN Reason: give if no BM 2-3 times/24h Stop: 01/31/21 16:59 Last Admin: 01/01/21 17:47 Dose: 20 gm Documented by: Magnesium Oxide (Magnesium Oxide 400 Mg Tab) 400 mg PO BID ON LICENSE OF [facility] Stop: 02/01/21 20:59 Last Admin: 01/05/21 09:59 Dose: Not Given Documented by: Metoprolol Tartrate (Metoprolol Tartrate 1 Mg/Ml Vial) 2.5 mg IV Q6 ON LICENSE OF [facility] Stop: 02/02/21 05:59 Last Admin: 01/05/21 06:04 Dose: 2.5 mg Documented by: Miscellaneous (Remove Nicoderm Patch) 1 ea N/A DAILY@[id number] ON LICENSE OF [facility] Stop: 02/05/21 08:58 Multivitamins (Multivitamin Tab) [facility] [place] Stop: 01/30/21 08:59 Last Admin: 01/05/21 09:59 Dose: Not Given Documented by: Nicotine (Nicotine 7 Mg/24 Hr Tdsy) 7 mg TD [facility] Stop: 02/04/21 09:59 Last Admin: 01/05/21 11:15 Dose: 7 mg Documented by: Rifaximin (Rifaximin 550 Mg Tablet) 550 mg PO BID ON LICENSE OF [facility] Stop: 01/31/21 20:59 Last Admin: 01/05/21 10:00 Dose: Not Given Documented by: Thiamine HCl (Thiamine Hcl 100 Mg Tab) 100 mg PO QAM ON LICENSE OF [facility] Stop: 01/30/21 01:10 Last Admin: 01/03/21 10:03 Dose: Not Given Documented by:
[2021-01-05] MEDS: cefTRIAXone SODIUM 2,000 MG in DEXTROSE 5% 50 ML IV SCH (11:55)
--- NOTE | 2021-01-05 12:19 | Communication Note ---
Date of Service: January 05, 2021 GI asked to re-evaluate. Pt w/ known ETOH cirrhosis w/ continued ETOH abuse, medication noncompliance w/ recurrent ascites w/ scheduled paracentesis admitted w/ volume overload, respiratory failure. No LFTS x 2 days. Cirrhosis, doubt ETOH hep. MELD 22. DF 49. Would defer steroids until full infectious work up returns as LFTs and INR likely related to his chronic liver disease and not acutely related to ETOH hepatitis. Can consider pentoxifylline pending repeat LFTS as this medication is typically stopped w/ downtrending bili less than 5. His HGB has remained stable, brown stools document and there is no overt sign of decompensation this admission. Given his ETOH abuse, medication and follow up noncompliance it is very unlikely he would be deemed a transplant candidate but in the event of any acute decompensation can consider transfer. daily MELD labs management of ETOH withdrawal per primary team Lasix/Aldacone while admitted Xifaxan 550 BID Lactulose titrated to BMs 2-3 times daily ETOH cessation Low NA diet, less than 2g Less than 2g tylenol products No NSAIDs Paracentesis w/ albumin 25% replacement every 2 weeks PRN
[2021-01-05] MEDS ORDERED: FUROSEMIDE 20 MG in SYRINGE 0 ML IV ONE (12:30)
[2021-01-05] MEDS: DOXYCYCLINE HYCLATE 100 MG in DEXTROSE 5% 100 ML IV SCH (12:39)
[2021-01-05 13:28] LABS: D Dimer 11370 ug/L FEU (0-500)
[2021-01-05 13:54] LABS: Albumin Level 2.1 gm/dl (3.4-5.0); Bilirubin Direct 2.4 mg/dl (0-0.2); Bilirubin,Total 7.9 mg/dl (0.2-1); Total Protein 5.9 gm/dl (6.4-8.2)
--- NOTE | 2021-01-05 15:14 | Ultrasound Report ---
BILATERAL LOWER EXTREMITY VENOUS DOPPLER HISTORY: Acute pain and swelling of the lower legs r/o DVT COMPARISON STUDY: Duplex venous Doppler study 06/11/2018. FINDINGS: Limited exam secondary to lack of cooperation from the patient. There is normal compressibi lity, flow, and augmentation within the bilateral lower extremity deep venous systems. IMPRESSION: No DVT within the right or left lower extremity. ACT 112: Negative or not required by law. Electronically signed by: Cosme Norris M.D. 01/05/2021 3:13 PM
--- NOTE | 2021-01-05 15:18 | Ultrasound Report ---
DOPPLER ULTRASOUND OF THE HEPATIC AND PORTAL VASCULATURE CLINICAL HISTORY: Cirrhosis. COMPARISON STUDY: Abdominal CT dated 12/30/2020. FINDINGS: Real-time grayscale and color Doppler sonography of the hepatic and portal vasculature is p erformed. The main portal vein is patent with bidirectional flow. Flow in the right portal vein is re versed. The left portal vein was not visualized. The hepatic veins are patent. There is loss of the n ormal hepatic venous waveforms. The hepatic artery is patent with velocities measuring up to 115 cm/s . IMPRESSION: 1. The main portal vein is patent with bidirectional flow. 2. There is reversal of flow within the right portal vein. 3. The left portal vein was not visualized. This was shown to be patent by CT. Electronically signed by: Salazar Segura M.D. 01/05/2021 3:17 PM
[2021-01-05] MEDS ORDERED: FUROSEMIDE 10 MG in SYRINGE 0 ML IV ONE (17:00)
--- NOTE | 2021-01-05 18:31 | Hospitalist Progress Note ---
Date of Service January 05, 2021 Assessment & Plan Admission and Anticipated Discharge Date Admission Date: December 30, 2020 Subjective I updated patient's mother over the phone this evening, January 05. Patient's m other was asking me if there is a possibility that patient will . Therefore, I also discussed CODE STATUS with her, and what would Mr. Markos Martin wish for in case his heart would stop beating or he would stop breathing in the hospital. Patient's mother was clear that the patient would not want to have any procedures/aggressive measures taken to be brought back. Therefore will change CODE STATUS to DNR/DNI. Harini Johnson MD Results & Data Results & Data ([facility]) Vital Signs (Past 12 Hours) Vital Signs Temp Pulse Pulse Resp BP BP Pulse Ox 01/05/21 18:22 76 112/64 01/05/21 17:35 76 112/64 01/05/21 15:08 36.9 C 76 18 122/64 96 01/05/21 11:53 81 124/68 01/05/21 11:08 36.7 C 75 19 123/72 97 01/05/21 08:00 103 H 01/05/21 07:46 36.8 C 72 19 131/74 99
[2021-01-06] MEDS: DOXYCYCLINE HYCLATE 100 MG in DEXTROSE 5% 100 ML IV SCH ×2 (00:54→13:28)
[2021-01-06] MEDS: METOPROLOL TARTRATE 1 MG/ML VIAL IV SCH ×3 (00:55→12:39)
[2021-01-06 05:49] LABS: Hematocrit (blood only) 32.7 % (42-52); Hemoglobin 11.2 g/dL (14.0-18.0); Mean Corpuscular Hemoglobin 36.5 pg (25-34); Mean Corpuscular Hgb Conc 34.3 g/dL (32-36); Mean Corpuscular Volume 106.5 fL (80-100); RDW Coefficient of Variation 14.7 % (11.5-14.5); RDW Standard Deviation 56.8 fL (36.4-46.3); Red Blood Count 3.07 M/uL (4.7-6.1); White Blood Count 6.83 K/uL (4.8-10.8)
[2021-01-06 05:54] LABS: Mean Platelet Volume 11.6 fL (7.4-10.4); Platelet Count 48 K/uL (130-400)
[2021-01-06 06:00] LABS: INR 2.1 (0.9-1.1); Prothrombin Time 20.3 Seconds (9.0-12.0)
[2021-01-06 06:17] LABS: Albumin Globulin Ratio 0.5 (0.9-2); BUN Creatinine Ratio 16.1 (10-20); Bilirubin,Total 6.9 mg/dl (0.2-1); Calcium 8.1 mg/dl (8.5-10.1); Creatinine Clr Calc Pharmacy 119.6 ml/min; Est GFR (African American) 130.3; Est GFR (Non-African American) 112.4; Globulin 3.8 gm/dl (2.5-4.0); Magnesium 1.7 mg/dl (1.8-2.4); Phosphorus 3.1 mg/dl (2.5-4.9); Potassium 3.2 mmol/L (3.5-5.1); Total Protein 5.8 gm/dl (6.4-8.2)
--- NOTE | 2021-01-06 08:40 | Hospitalist Progress Note ---
Date of Service January 06, 2021 Assessment & Plan (1) Hypoxia: Initially Hypervolemia 2/2 decompensated cirrhosis with ascites. Pulmonary congestion improved with recent Lasix. Cont to dose PRN Lasix given with good response. Steroids were stopped as clinical history was not consistent with a COPD exacerbation and want to avoid polypharmacy contributing to delirium. Pt on oxymask, has a cough (?chronic), repeated CXR and obtained procalcitonin CXR c/w multifocal pna vs. pulm. congestion, started on Rocephin and doxy and gave IV lasix (2) Alcohol withdrawal delirium: He originally arrived intoxicated and now is withdrawing. He has required several doses of Ativan to combat significant delirium and agitation. This may progress and he may be a candidate for Precedex therapy in the ICU. For now continue Ativan as needed. (3) Atrial fibrillation with rapid ventricular response: Maintaining in sinus rhythm overnight on telemetry review. He is not a candidate for anticoagulation 2/2 h/o alcoholism, h/o noncompliance with medical therapy and GI bleeding from esophageal varices. He is notably autoanticoagulated from severe liver disease with an INR 1.8-2.0 this admission. Cont scheduled diltiazem and atenolol once tolerating PO. In setting of delirium he was placed on scheduled IV Lopressor with hold parameters. Burst of SVT 4/1 AM, low K and Mag, repleted Pt seems to be tolerating PO now, therefore received PO cardizem (4) Alcoholic cirrhosis of liver with ascites: Ascites with abdominal pain present. Paracentesis with 3.1 L off negative for SBP. Ceftriaxone and albumin stopped. Improved with IV Lasix. Will ultimately need Lasix/aldactone once safe to tolerate PO. Cont low Na diet and 1.8L fluid restriction. (5) Alcoholic hepatitis with ascites: This is a questionable diagnosis. Elevated discriminant function, however, given absence of leukocytosis GI provider suspects this is largely related to cirrhosis rather than hepatitis and steroids were deferred. Additionally this patient has a known history of chronic abdominal pain. (6) Abdominal pain: there is a chronic component to this. SBP was ruled out. Cont to provide supportive care. (7) Alcohol abuse: Counseled to quit, pt not interested in rehab at this time. (8) Multiple thyroid nodules: Recently found to have marked bilateral lobe thyroid enlargeent by CT scan during an ER visit with several nodular densities of the supracalvicular and retroclavicular region concerning for neoplastic process. He was referred to ENT but has not been compliant with this. Workup is pending. Counseling patient of the importance of this given the consideration of thyroid lymphoma in the differential diagnosis. (9) Thrombocytopenia due to hypersplenism: Related to liver disease. Peripheral smear ordered (10) Tobacco use disorder: Advise strongly to quit. (11) Protein calorie malnutrition: Encourage PO once eating again. (12) Anemia: chronic and around his baseline. No evidence of overt bleeding at this time. Cont to monitor. Peripheral smear ordered (13) Coagulopathy: Related to liver disease (this was also discussed w/ GI and hematology) (14) DVT prophylaxis: SCDs, coagulopathy d/t liver dis. Full Code Dispo-to home when medically stable, cont PCU monitoring for now. The patient was made n.p.o. in the setting of altered mental status. This can be reevaluated if he wakes up and is not confused. Admission and Anticipated Discharge Date Admission Date: December 30, 2020 Subjective Patient seen in follow-up of A. fib, abdominal and chest discomfort, liver disease, alcohol withdrawal S/p paracentesis with 3.1 L ascitic fluid taken off; no SBP infection was seen. He consistently had coarse rhonchi on lung exam each day he was here with some Lasix given intravenously. Respiratory status has now improved. He continues to withdraw from alcohol and exhibit delirium. ROS were limited as a result. Pt more awake today but still mostly somnolent Burst of SVT this AM, K and Mag low this AM and repleteing, cardiology also following If pt cont. to be more awake will have speech eval see again Occasional cough, uses suppl. O2 Review of Systems Review of Systems: Unobtainable due to cognitive status Pt more awake today but still quite somnolent, not able to obtain full ROS Physical Exam Physical Exam: CONSTITUTIONAL: WNWD, vitals as above, somnolent, occasionally wakes up EYES: normal conjunctivae, no scleral icterus ENT: external ear and nose normal, MMM RESPIRATORY: normal respiratory effort, No increased work of breathing, but on suppl. O2. some occasional rhonchi at bases. CARDIOVASCULAR: regular rate and rhythm, S1 and 2 heard without murmurs, gallops or rubs, no JVD, no peripheral edema CHEST: inspection of chest was normal GASTROINTESTINAL: soft abdomen, nondistended, + bowel sounds MUSCULOSKELETAL: moves all extremities symmetrically, no LE edema SKIN: warm and dry NEUROLOGIC: somnolent but more awake today not answering all questions Results & Data Results & Data ([facility]) Vital Signs (Past 12 Hours) Vital Signs Temp Pulse Pulse Resp BP BP Pulse Ox 01/06/21 07:49 82 20 122/74 95 01/06/21 07:43 88 01/06/21 05:52 83 116/68 01/06/21 03:22 36.6 C 80 19 122/72 100 01/05/21 23:05 36.7 C 82 19 125/75 91 01/05/21 22:20 80 Laboratory Results 01/06/21 01/06/21 01/06/21 Range/Units 05:34 05:34 05:34 WBC (4.8-10.8) K/uL RBC (4.7-6.1) M/uL Hgb (14.0-18.0) g/dL Hct (42-52) % MCV (80-100) fL MCH (25-34) pg MCHC (32-36) g/dL RDW Std Deviation (36.4-46.3) fL RDW Coeff of Hernandez (11.5-14.5) % Plt Count (130-400) K/uL MPV (7.4-10.4) fL Peripher Smr Path Cons Haptoglobin PT 20.3 H (9.0-12.0) Seconds INR 2.1 H (0.9-1.1) Fibrinogen (184-400) mg/dl Fibrin Degrad Products (<10) mcg/ml D-Dimer (0-500) ug/L FEU Sodium 140 (136-145) mmol/L Potassium 3.2 L (3.5-5.1) mmol/L Chloride 108 H (98-107) mmol/L Carbon Dioxide 28 (21-32) mmol/L Anion Gap 4.0 (3-11) BUN 10 (7-18) mg/dl Creatinine 0.60 (0.6-1.4) mg/dl Est Cr Clr Drug Dosing 119.6 ml/min Est GFR ( Amer) 130.3 Est GFR (Non-Af Amer) 112.4 BUN/Creatinine Ratio 16.1 (10-20) Glucose 94 (70-99) mg/dl Calcium 8.1 L (8.5-10.1) mg/dl Phosphorus 3.1 (2.5-4.9) mg/dl Magnesium 1.7 L (1.8-2.4) mg/dl Total Bilirubin 6.9 H (0.2-1) mg/dl Direct Bilirubin (0-0.2) mg/dl AST 36 (15-37) U/L ALT 19 (12-78) U/L Alkaline Phosphatase 84 (45-117) U/L Ammonia 32.0 (11-32) umol/L Lactate Dehydrogenase (87-241) U/L Total Protein 5.8 L (6.4-8.2) gm/dl Albumin 2.0 L (3.4-5.0) gm/dl Globulin 3.8 (2.5-4.0) gm/dl Albumin/Globulin Ratio 0.5 L (0.9-2) Procalcitonin (0-0.5) ng/ml 01/06/21 01/05/21 01/05/21 Range/Units 05:34 11:58 11:58 WBC 6.83 (4.8-10.8) K/uL RBC 3.07 L (4.7-6.1) M/uL Hgb 11.2 L (14.0-18.0) g/dL Hct 32.7 L (42-52) % MCV 106.5 H (80-100) fL MCH 36.5 H (25-34) pg MCHC 34.3 (32-36) g/dL RDW Std Deviation 56.8 H (36.4-46.3) fL RDW Coeff of Hernandez 14.7 H (11.5-14.5) % Plt Count 48 L (130-400) K/uL MPV 11.6 H (7.4-10.4) fL Peripher Smr Path Cons Haptoglobin PT (9.0-12.0) Seconds INR (0.9-1.1) Fibrinogen (184-400) mg/dl Fibrin Degrad Products 10-40 H (<10) mcg/ml D-Dimer 36302 H* (0-500) ug/L FEU Sodium (136-145) mmol/L Potassium (3.5-5.1) mmol/L Chloride (98-107) mmol/L Carbon Dioxide (21-32) mmol/L Anion Gap (3-11) BUN (7-18) mg/dl Creatinine (0.6-1.4) mg/dl Est Cr Clr Drug Dosing ml/min Est GFR ( Amer) Est GFR (Non-Af Amer) BUN/Creatinine Ratio (10-20) Glucose (70-99) mg/dl Calcium (8.5-10.1) mg/dl Phosphorus (2.5-4.9) mg/dl Magnesium (1.8-2.4) mg/dl Total Bilirubin (0.2-1) mg/dl Direct Bilirubin (0-0.2) mg/dl AST (15-37) U/L ALT (12-78) U/L Alkaline Phosphatase (45-117) U/L Ammonia (11-32) umol/L Lactate Dehydrogenase (87-241) U/L Total Protein (6.4-8.2) gm/dl Albumin (3.4-5.0) gm/dl Globulin (2.5-4.0) gm/dl Albumin/Globulin Ratio (0.9-2) Procalcitonin (0-0.5) ng/ml 01/05/21 01/05/21 01/05/21 Range/Units 11:58 09:18 09:18 WBC (4.8-10.8) K/uL RBC (4.7-6.1) M/uL Hgb (14.0-18.0) g/dL Hct (42-52) % MCV (80-100) fL MCH (25-34) pg MCHC (32-36) g/dL RDW Std Deviation (36.4-46.3) fL RDW Coeff of Hernandez (11.5-14.5) % Plt Count (130-400) K/uL MPV (7.4-10.4) fL Peripher Smr Path Cons Haptoglobin Pending PT (9.0-12.0) Seconds INR (0.9-1.1) Fibrinogen (184-400) mg/dl Fibrin Degrad Products (<10) mcg/ml D-Dimer (0-500) ug/L FEU Sodium (136-145) mmol/L Potassium (3.5-5.1) mmol/L Chloride (98-107) mmol/L Carbon Dioxide (21-32) mmol/L Anion Gap (3-11) BUN (7-18) mg/dl Creatinine (0.6-1.4) mg/dl Est Cr Clr Drug Dosing ml/min Est GFR ( Amer) Est GFR (Non-Af Amer) BUN/Creatinine Ratio (10-20) Glucose (70-99) mg/dl Calcium (8.5-10.1) mg/dl Phosphorus (2.5-4.9) mg/dl Magnesium (1.8-2.4) mg/dl Total Bilirubin 7.9 H 7.5 H (0.2-1) mg/dl Direct Bilirubin 2.4 H (0-0.2) mg/dl AST 41 H (15-37) U/L ALT 18 (12-78) U/L Alkaline Phosphatase 80 (45-117) U/L Ammonia (11-32) umol/L Lactate Dehydrogenase (87-241) U/L Total Protein 5.9 L (6.4-8.2) gm/dl Albumin 2.1 L (3.4-5.0) gm/dl Globulin (2.5-4.0) gm/dl Albumin/Globulin Ratio (0.9-2) Procalcitonin (0-0.5) ng/ml 01/05/21 01/05/21 01/05/21 Range/Units 09:18 09:18 09:18 WBC (4.8-10.8) K/uL RBC (4.7-6.1) M/uL Hgb (14.0-18.0) g/dL Hct (42-52) % MCV (80-100) fL MCH (25-34) pg MCHC (32-36) g/dL RDW Std Deviation (36.4-46.3) fL RDW Coeff of Hernandez (11.5-14.5) % Plt Count (130-400) K/uL MPV (7.4-10.4) fL Peripher Smr Path Cons Haptoglobin PT (9.0-12.0) Seconds INR (0.9-1.1) Fibrinogen 94 L* (184-400) mg/dl Fibrin Degrad Products (<10) mcg/ml D-Dimer (0-500) ug/L FEU Sodium (136-145) mmol/L Potassium (3.5-5.1) mmol/L Chloride (98-107) mmol/L Carbon Dioxide (21-32) mmol/L Anion Gap (3-11) BUN (7-18) mg/dl Creatinine (0.6-1.4) mg/dl Est Cr Clr Drug Dosing ml/min Est GFR ( Amer) Est GFR (Non-Af Amer) BUN/Creatinine Ratio (10-20) Glucose (70-99) mg/dl Calcium (8.5-10.1) mg/dl Phosphorus (2.5-4.9) mg/dl Magnesium (1.8-2.4) mg/dl Total Bilirubin (0.2-1) mg/dl Direct Bilirubin (0-0.2) mg/dl AST (15-37) U/L ALT (12-78) U/L Alkaline Phosphatase (45-117) U/L Ammonia (11-32) umol/L Lactate Dehydrogenase 217 (87-241) U/L Total Protein (6.4-8.2) gm/dl Albumin (3.4-5.0) gm/dl Globulin (2.5-4.0) gm/dl Albumin/Globulin Ratio (0.9-2) Procalcitonin 0.18 (0-0.5) ng/ml 01/05/21 Range/Units 09:18 WBC (4.8-10.8) K/uL RBC (4.7-6.1) M/uL Hgb (14.0-18.0) g/dL Hct (42-52) % MCV (80-100) fL MCH (25-34) pg MCHC (32-36) g/dL RDW Std Deviation (36.4-46.3) fL RDW Coeff of Hernandez (11.5-14.5) % Plt Count (130-400) K/uL MPV (7.4-10.4) fL Peripher Smr Path Cons Haptoglobin PT (9.0-12.0) Seconds INR (0.9-1.1) Fibrinogen (184-400) mg/dl Fibrin Degrad Products (<10) mcg/ml D-Dimer (0-500) ug/L FEU Sodium (136-145) mmol/L Potassium (3.5-5.1) mmol/L Chloride (98-107) mmol/L Carbon Dioxide (21-32) mmol/L Anion Gap (3-11) BUN (7-18) mg/dl Creatinine (0.6-1.4) mg/dl Est Cr Clr Drug Dosing ml/min Est GFR ( Amer) Est GFR (Non-Af Amer) BUN/Creatinine Ratio (10-20) Glucose (70-99) mg/dl Calcium (8.5-10.1) mg/dl Phosphorus (2.5-4.9) mg/dl Magnesium (1.8-2.4) mg/dl Total Bilirubin (0.2-1) mg/dl Direct Bilirubin (0-0.2) mg/dl AST (15-37) U/L ALT (12-78) U/L Alkaline Phosphatase (45-117) U/L Ammonia (11-32) umol/L Lactate Dehydrogenase (87-241) U/L Total Protein (6.4-8.2) gm/dl Albumin (3.4-5.0) gm/dl Globulin (2.5-4.0) gm/dl Albumin/Globulin Ratio (0.9-2) Procalcitonin (0-0.5) ng/ml Medications Administered Current Inpatient Medications Acetaminophen (Acetaminophen 325 Mg Tab) 325 mg PO Q6H PRN PRN Reason: Mild Pain Stop: 01/30/21 01:10 Last Admin: 12/31/20 05:58 Dose: 325 mg Documented by: Atenolol (Atenolol 25 Mg Tablet) 25 mg PO QAM [facility] Stop: 02/01/21 11:44 Last Admin: 01/02/21 16:18 Dose: Not Given Documented by: Diltiazem HCl (Diltiazem Hcl 60 Mg Tab) 60 mg PO TID [facility] Stop: 02/01/21 05:49 Last Admin: 01/05/21 20:25 Dose: Not Given Documented by: Folic Acid (Folic Acid 1 Mg Tab) 1 mg PO QAM [facility] Stop: 01/30/21 01:10 Last Admin: 01/05/21 09:57 Dose: Not Given Documented by: Guaifenesin (Guaifenesin 600 Mg Tabcr) 600 mg PO Q12 [facility] Stop: 02/04/21 08:59 Last Admin: 01/05/21 20:26 Dose: Not Given Documented by: Lorazepam (Ativan) 1 mg in 2 mls @ 2 mls/min IV UD PRN; Protocol PRN Reason: EtOH Withdrawl AWSS Score 6,7 Stop: 01/30/21 01:10 Last Admin: 01/03/21 22:34 Dose: 2 mls/min Documented by: Lorazepam (Ativan) 3 mg in 6 mls @ 4 mls/min IV ONCE PRN; Protocol PRN Reason: EtOH Withdrawl AWSS Score >=10 Stop: 01/30/21 01:10 Last Admin: 01/04/21 19:56 Dose: 4 mls/min Documented by: Lorazepam (Ativan) 2 mg in 4 mls @ 4 mls/min IV UD PRN; Protocol PRN Reason: EtOH Withdrawl AWSS Score 8,9 Stop: 01/30/21 01:10 Last Admin: 01/04/21 01:54 Dose: 4 mls/min Documented by: Thiamine HCl 100 mg/ Syringe 10 mls @ 2 mls/min IV QAM [facility] Stop: 02/03/21 08:59 Last Admin: 01/05/21 10:00 Dose: Not Given Documented by: Folic Acid 1 mg/ Syringe 10 mls @ 5 mls/min IV QAM [facility] Stop: 02/04/21 09:59 Last Admin: 01/05/21 11:15 Dose: 5 mls/min Documented by: Ceftriaxone Sodium 2,000 mg/ (Dextrose) 70 mls @ 100 mls/hr IV Q24H [facility]; Protocol Stop: 01/12/21 11:59 Last Infusion: 01/05/21 13:01 Dose: Infused Documented by: Doxycycline Hyclate 100 mg/ (Dextrose) 110 mls @ 50 mls/hr IV Q12H [facility]; Protocol Stop: 01/12/21 12:59 Last Infusion: 01/06/21 03:34 Dose: Infused Documented by: Potassium Chloride (K Uche / Wtr) 10 meq in 100 mls @ 100 mls/hr IV Q1H [facility] Stop: 01/06/21 09:35 Magnesium Sulfate/Dextrose (Magnesium Sulfate / D5w) 1 gm in 100 mls @ 50 mls/hr IV ONE ONE Stop: 01/06/21 10:35 Lactulose (Lactulose Syrup 20 Gm/30 Ml Udc) 20 gm PO [id number] PRN PRN Reason: give if no BM 2-3 times/24h Stop: 01/31/21 16:59 Last Admin: 01/01/21 17:47 Dose: 20 gm Documented by: Magnesium Oxide (Magnesium Oxide 400 Mg Tab) 400 mg PO BID [facility] Stop: 02/01/21 20:59 Last Admin: 01/05/21 20:25 Dose: Not Given Documented by: Metoprolol Tartrate (Metoprolol Tartrate 1 Mg/Ml Vial) 2.5 mg IV Q6 [facility] Stop: 02/02/21 05:59 Last Admin: 01/06/21 05:52 Dose: 2.5 mg Documented by: Miscellaneous (Remove Nicoderm Patch) 1 ea N/A DAILY@[id number] [facility] Stop: 02/05/21 08:58 Multivitamins (Multivitamin Tab) 1 tab PO QAM [facility] Stop: 01/30/21 08:59 Last Admin: 01/05/21 09:59 Dose: Not Given Documented by: Nicotine (Nicotine 7 Mg/24 Hr Tdsy) 7 mg TD QAM [facility] Stop: 02/04/21 09:59 Last Admin: 01/05/21 11:15 Dose: 7 mg Documented by: Rifaximin (Rifaximin 550 Mg Tablet) 550 mg PO BID [facility] Stop: 01/31/21 20:59 Last Admin: 01/05/21 20:26 Dose: Not Given Documented by: Thiamine HCl (Thiamine Hcl 100 Mg Tab) 100 mg PO QAM [facility] Stop: 01/30/21 01:10 Last Admin: 01/03/21 10:03 Dose: Not Given Documented by:
[2021-01-06] MEDS: NICOTINE 7 MG/24 HR TDSY TD SCH (08:49)
[2021-01-06] MEDS: FOLIC ACID 1 MG TAB PO SCH (08:51)
[2021-01-06] MEDS: dilTIAZem HCl 60 MG TAB PO SCH ×3 (08:51→20:12)
[2021-01-06] MEDS: MULTIVITAMIN TAB PO SCH (08:52)
[2021-01-06] MEDS: rifAXIMin 550 MG TABLET PO SCH ×2 (08:52→20:12)
[2021-01-06] MEDS: guaiFENesin 600 MG TABCR PO SCH ×2 (08:52→20:13)
[2021-01-06] MEDS: MAGNESIUM OXIDE 400 MG TAB PO SCH ×2 (08:52→20:13)
[2021-01-06] MEDS: THIAMINE HCL 100 MG in SYRINGE 9 ML IV SCH (08:57)
[2021-01-06] MEDS: FOLIC ACID 1 MG in SYRINGE 9.8 ML IV SCH (08:57)
[2021-01-06] MEDS ORDERED: MAGNESIUM SULFATE / D5W 1 GM/100 ML BAG IV ONE (09:00)
--- NOTE | 2021-01-06 09:18 | XRay Report ---
XR chest 1V portable HISTORY: 55 years-old Male follow up acute shortness of breath COMPARISON: Chest radiograph 01/05/2021 TECHNIQUE: Portable AP view of the chest FINDINGS: The cardiomediastinal and hilar silhouettes are unchanged with asymmetric right hilar prominence. Mil dly improved aeration of the lungs with persistent bilateral mixed interstitial and alveolar opacitie s. No pneumothorax. Questioned trace pleural effusions. Bones appear grossly intact. IMPRESSION: Mild improvement of the bilateral mixed interstitial and alveolar opacities suggestive of multifocal pneumonia versus pulmonary edema. ACT 112: Negative or not required by law. The above report was generated using voice recognition software. It may contain grammatical, syntax o r spelling errors. Electronically signed by: Cosme Norris M.D. 01/06/2021 9:16 AM
[2021-01-06] MEDS: POTASSIUM CHLORIDE / WTR 10 MEQ/100 ML PLCT IV SCH ×4 (10:14→13:37)
--- NOTE | 2021-01-06 12:10 | Cardiology Progress Note ---
Date of Service January 06, 2021 Assessment & Plan (1) Atrial fibrillation with RVR: The patient is maintaining sinus rhythm with one short burst of SVT early this morning that was asymptomatic. I would continue the current medications however, I would switch him over to atenolol when he is able to take p.o. medications routinely and stop the metoprolol. (2) Alcohol abuse: Delusional and going through withdrawal (3) Alcoholic cirrhosis of liver with ascites: Supportive care and encouragement to stop alcohol. Admission and Anticipated Discharge Date Admission Date: December 30, 2020 Subjective The patient is a little bit more alert today. Review of Systems Review of Systems: Unobtainable due to cognitive status Physical Exam Physical Exam: General: no acute distress and stated age Head: normocephalic, no masses, lesions, tenderness or abnormalities Eyes: conjunctiva are pink and non-injected, sclera clear Neck: supple, no adenopathy, no bruits, normal jugular venous pulse, no hepatojugular reflux Chest: normal shape and normal respiratory effort Lungs: clear to auscultation and percussion Cardiac Exam: - regular rate & rhythm, no murmurs gallops or rubs - normal S1, normal S2 Pulses: 2(+) throughout Abdomen: abdomen soft, non-tender, no abnormal masses and no hepatosplenomegaly Musculoskeletal: no gait disturbance, no joint inflammation, no deforming arthritis Extremities: no edema and no cyanosis Neuro: grossly normal exam Results & Data ([facility]) Vital Signs (Past 12 Hours) Vital Signs Temp Pulse Pulse Resp BP BP Pulse Ox 01/06/21 11:24 36.7 C 79 18 119/67 97 01/06/21 07:49 82 20 122/74 95 01/06/21 07:43 88 01/06/21 05:52 83 116/68 01/06/21 03:22 36.6 C 80 19 122/72 100 Laboratory Results Laboratory Results - last 24 hr 01/05/21 01/05/21 01/05/21 09:18 09:18 09:18 WBC RBC Hgb Hct MCV MCH MCHC RDW Std Deviation RDW Coeff of Hernandez Plt Count MPV Peripher Smr Path Cons Haptoglobin PT INR Fibrin Degrad Products D-Dimer Sodium Potassium Chloride Carbon Dioxide Anion Gap BUN Creatinine Est Cr Clr Drug Dosing Est GFR ( Amer) Est GFR (Non-Af Amer) BUN/Creatinine Ratio Glucose Calcium Phosphorus Magnesium Total Bilirubin 7.5 H 7.9 H Direct Bilirubin 2.4 H AST 41 H ALT 18 Alkaline Phosphatase 80 Ammonia Total Protein 5.9 L Albumin 2.1 L Globulin Albumin/Globulin Ratio 01/05/21 01/05/21 01/05/21 11:58 11:58 11:58 WBC RBC Hgb Hct MCV MCH MCHC RDW Std Deviation RDW Coeff of Hernandez Plt Count MPV Peripher Smr Path Cons Haptoglobin 9 L PT INR Fibrin Degrad Products 10-40 H D-Dimer 58851 H* Sodium Potassium Chloride Carbon Dioxide Anion Gap BUN Creatinine Est Cr Clr Drug Dosing Est GFR ( Amer) Est GFR (Non-Af Amer) BUN/Creatinine Ratio Glucose Calcium Phosphorus Magnesium Total Bilirubin Direct Bilirubin AST ALT Alkaline Phosphatase Ammonia Total Protein Albumin Globulin Albumin/Globulin Ratio 01/06/21 01/06/21 01/06/21 05:34 05:34 05:34 WBC 6.83 RBC 3.07 L Hgb 11.2 L Hct 32.7 L MCV 106.5 H MCH 36.5 H MCHC 34.3 RDW Std Deviation 56.8 H RDW Coeff of Hernandez 14.7 H Plt Count 48 L MPV 11.6 H Peripher Smr Path Cons Haptoglobin PT 20.3 H INR 2.1 H Fibrin Degrad Products D-Dimer Sodium 140 Potassium 3.2 L Chloride 108 H Carbon Dioxide 28 Anion Gap 4.0 BUN 10 Creatinine 0.60 Est Cr Clr Drug Dosing 119.6 Est GFR ( Amer) 130.3 Est GFR (Non-Af Amer) 112.4 BUN/Creatinine Ratio 16.1 Glucose 94 Calcium 8.1 L Phosphorus 3.1 Magnesium 1.7 L Total Bilirubin 6.9 H Direct Bilirubin AST 36 ALT 19 Alkaline Phosphatase 84 Ammonia Total Protein 5.8 L Albumin 2.0 L Globulin 3.8 Albumin/Globulin Ratio 0.5 L 01/06/21 05:34 WBC RBC Hgb Hct MCV MCH MCHC RDW Std Deviation RDW Coeff of Hernandez Plt Count MPV Peripher Smr Path Cons Haptoglobin PT INR Fibrin Degrad Products D-Dimer Sodium Potassium Chloride Carbon Dioxide Anion Gap BUN Creatinine Est Cr Clr Drug Dosing Est GFR ( Amer) Est GFR (Non-Af Amer) BUN/Creatinine Ratio Glucose Calcium Phosphorus Magnesium Total Bilirubin Direct Bilirubin AST ALT Alkaline Phosphatase Ammonia 32.0 Total Protein Albumin Globulin Albumin/Globulin Ratio Diagnostic Findings The patient had a short run of SVT this morning but otherwise has been in sinus rhythm. Medications Administered Current Inpatient Medications Acetaminophen (Acetaminophen 325 Mg Tab) 325 mg PO Q6H PRN PRN Reason: Mild Pain Stop: 01/30/21 01:10 Last Admin: 12/31/20 05:58 Dose: 325 mg Documented by: Atenolol (Atenolol 25 Mg Tablet) 25 mg PO QAM [facility] Stop: 02/01/21 11:44 Last Admin: 01/02/21 16:18 Dose: Not Given Documented by: Diltiazem HCl (Diltiazem Hcl 60 Mg Tab) 60 mg PO TID [facility] Stop: 02/01/21 05:49 Last Admin: 01/06/21 08:51 Dose: Not Given Documented by: Folic Acid (Folic Acid 1 Mg Tab) 1 mg PO QAM [facility] Stop: 01/30/21 01:10 Last Admin: 01/06/21 08:51 Dose: Not Given Documented by: Guaifenesin (Guaifenesin 600 Mg Tabcr) 600 mg PO Q12 [facility] Stop: 02/04/21 08:59 Last Admin: 01/06/21 08:52 Dose: Not Given Documented by: Lorazepam (Ativan) 1 mg in 2 mls @ 2 mls/min IV UD PRN; Protocol PRN Reason: EtOH Withdrawl AWSS Score 6,7 Stop: 01/30/21 01:10 Last Admin: 01/03/21 22:34 Dose: 2 mls/min Documented by: Lorazepam (Ativan) 3 mg in 6 mls @ 4 mls/min IV ONCE PRN; Protocol PRN Reason: EtOH Withdrawl AWSS Score >=10 Stop: 01/30/21 01:10 Last Admin: 01/04/21 19:56 Dose: 4 mls/min Documented by: Lorazepam (Ativan) 2 mg in 4 mls @ 4 mls/min IV UD PRN; Protocol PRN Reason: EtOH Withdrawl AWSS Score 8,9 Stop: 01/30/21 01:10 Last Admin: 01/04/21 01:54 Dose: 4 mls/min Documented by: Thiamine HCl 100 mg/ Syringe 10 mls @ 2 mls/min IV QAM [facility] Stop: 02/03/21 08:59 Last Admin: 01/06/21 08:57 Dose: 2 mls/min Documented by: Folic Acid 1 mg/ Syringe 10 mls @ 5 mls/min IV QAM [facility] Stop: 02/04/21 09:59 Last Admin: 01/06/21 08:57 Dose: 5 mls/min Documented by: Ceftriaxone Sodium 2,000 mg/ (Dextrose) 70 mls @ 100 mls/hr IV Q24H [facility]; Protocol Stop: 01/12/21 11:59 Last Infusion: 01/05/21 13:01 Dose: Infused Documented by: Doxycycline Hyclate 100 mg/ (Dextrose) 110 mls @ 50 mls/hr IV Q12H [facility]; Protocol Stop: 01/12/21 12:59 Last Infusion: 01/06/21 03:34 Dose: Infused Documented by: Potassium Chloride (K Uche / Wtr) 10 meq in 100 mls @ 100 mls/hr IV Q1H [facility] Stop: 01/06/21 13:59 Last Admin: 01/06/21 11:23 Dose: 100 mls/hr Documented by: Lactulose (Lactulose Syrup 20 Gm/30 Ml Udc) 20 gm PO [id number] PRN PRN Reason: give if no BM 2-3 times/24h Stop: 01/31/21 16:59 Last Admin: 01/01/21 17:47 Dose: 20 gm Documented by: Magnesium Oxide (Magnesium Oxide 400 Mg Tab) 400 mg PO BID [facility] Stop: 02/01/21 20:59 Last Admin: 01/06/21 08:52 Dose: Not Given Documented by: Metoprolol Tartrate (Metoprolol Tartrate 1 Mg/Ml Vial) 2.5 mg IV Q6 [facility] Stop: 02/02/21 05:59 Last Admin: 01/06/21 05:52 Dose: 2.5 mg Documented by: Miscellaneous (Remove Nicoderm Patch) 1 ea N/A DAILY@59 [facility] Stop: 02/05/21 08:58 Last Admin: 01/06/21 08:51 Dose: 1 ea Documented by: Multivitamins (Multivitamin Tab) 1 tab PO QAM [facility] Stop: 01/30/21 08:59 Last Admin: 01/06/21 08:52 Dose: Not Given Documented by: Nicotine (Nicotine 7 Mg/24 Hr Tdsy) 7 mg TD QAM [facility] Stop: 02/04/21 09:59 Last Admin: 01/06/21 08:49 Dose: 7 mg Documented by: Rifaximin (Rifaximin 550 Mg Tablet) 550 mg PO BID [facility] Stop: 01/31/21 20:59 Last Admin: 01/06/21 08:52 Dose: Not Given Documented by: Thiamine HCl (Thiamine Hcl 100 Mg Tab) 100 mg PO QAM [facility] Stop: 01/30/21 01:10 Last Admin: 01/03/21 10:03 Dose: Not Given Documented by:
[2021-01-06] MEDS: cefTRIAXone SODIUM 2,000 MG in DEXTROSE 5% 50 ML IV SCH (12:33)
[2021-01-06] MEDS ORDERED: POTASSIUM CHLORIDE CRTAB 20 MEQ TABCR PO STA (16:40)
[2021-01-06] MEDS: ACETAMINOPHEN 325 MG TAB PO PRN (20:11)
[2021-01-07] MEDS: DOXYCYCLINE HYCLATE 100 MG in DEXTROSE 5% 100 ML IV SCH ×3 (00:18→23:49)
[2021-01-07 06:03] LABS: Hematocrit (blood only) 33.8 % (42-52); Hemoglobin 11.7 g/dL (14.0-18.0); Mean Corpuscular Hemoglobin 36.8 pg (25-34); Mean Corpuscular Hgb Conc 34.6 g/dL (32-36); Mean Corpuscular Volume 106.3 fL (80-100); RDW Coefficient of Variation 14.7 % (11.5-14.5); Red Blood Count 3.18 M/uL (4.7-6.1); White Blood Count 8.49 K/uL (4.8-10.8)
[2021-01-07 06:07] LABS: Mean Platelet Volume 11.5 fL (7.4-10.4); Platelet Count 51 K/uL (130-400)
[2021-01-07 06:11] LABS: Prothrombin Time 19.6 Seconds (9.0-12.0)
[2021-01-07 06:37] LABS: Albumin Globulin Ratio 0.5 (0.9-2); BUN Creatinine Ratio 16.9 (10-20); Bilirubin,Total 7.4 mg/dl (0.2-1); Calcium 8.2 mg/dl (8.5-10.1); Est GFR (Non-African American) 106.1; Globulin 4.3 gm/dl (2.5-4.0); Potassium 3.8 mmol/L (3.5-5.1); Total Protein 6.3 gm/dl (6.4-8.2)
[2021-01-07] MEDS: THIAMINE HCL 100 MG in SYRINGE 9 ML IV SCH (08:42)
[2021-01-07] MEDS: dilTIAZem HCl 60 MG TAB PO SCH ×3 (08:42→20:15)
[2021-01-07] MEDS: rifAXIMin 550 MG TABLET PO SCH ×2 (08:42→20:15)
[2021-01-07] MEDS: FOLIC ACID 1 MG in SYRINGE 9.8 ML IV SCH (08:42)
[2021-01-07] MEDS: guaiFENesin 600 MG TABCR PO SCH ×2 (08:43→20:16)
[2021-01-07] MEDS: MAGNESIUM OXIDE 400 MG TAB PO SCH ×2 (08:43→20:17)
[2021-01-07] MEDS: FOLIC ACID 1 MG TAB PO SCH (08:43)
[2021-01-07] MEDS: MULTIVITAMIN TAB PO SCH (08:43)
[2021-01-07] MEDS: ATENOLOL 25 MG TABLET PO SCH (08:43)
[2021-01-07] MEDS: NICOTINE 7 MG/24 HR TDSY TD SCH (08:44)
[2021-01-07] MEDS ORDERED: POTASSIUM CHLORIDE CRTAB 20 MEQ TABCR PO STA (10:19)
--- NOTE | 2021-01-07 10:24 | Hospitalist Progress Note ---
Date of Service January 07, 2021 Assessment & Plan (1) Hypoxia: Initially Hypervolemia 2/2 decompensated cirrhosis with ascites. Pulmonary congestion improved with recent Lasix. Cont to dose PRN Lasix given with good response. Steroids were stopped as clinical history was not consistent with a COPD exacerbation and want to avoid polypharmacy contributing to delirium. Pt on oxymask, has a cough (?chronic), repeated CXR and obtained procalcitonin CXR c/w multifocal pna vs. pulm. congestion, started on Rocephin and doxy and gave IV lasix Currently breathing comfortably on room air, patient is also awake and answering questions appropriately (01/07) (2) Alcohol withdrawal delirium: He originally arrived intoxicated and now is withdrawing. He has required several doses of Ativan to combat significant delirium and agitation. This may progress and he may be a candidate for Precedex therapy in the ICU. For now continue Ativan as needed. Patient is more awake today (01/07), cooperative, answering questions appropriately (3) Atrial fibrillation with rapid ventricular response: Maintaining in sinus rhythm overnight on telemetry review. He is not a candidate for anticoagulation 2/2 h/o alcoholism, h/o noncompliance with medical therapy and GI bleeding from esophageal varices. He is notably autoanticoagulated from severe liver disease with an INR 1.8-2.0 this admission. Cont scheduled diltiazem and atenolol once tolerating PO. In setting of delirium he was placed on scheduled IV Lopressor with hold parameters. Burst of SVT 4/1 AM, low K and Mag, repleted Pt seems to be tolerating PO now, therefore received PO cardizem Continues to be in sinus rhythm now, able to take p.o. Cardizem and atenolol today (01/07) (4) Alcoholic cirrhosis of liver with ascites: Ascites with abdominal pain present. Paracentesis with 3.1 L off negative for SBP. Ceftriaxone and albumin stopped. Improved with IV Lasix. Will ultimately need Lasix/aldactone once safe to tolerate PO. Cont low Na diet and 1.8L fluid restriction. (5) Alcoholic hepatitis with ascites: This is a questionable diagnosis. Elevated discriminant function, however, given absence of leukocytosis GI provider suspects this is largely related to cirrhosis rather than hepatitis and steroids were deferred. Additionally this patient has a known history of chronic abdominal pain. (6) Abdominal pain: there is a chronic component to this. SBP was ruled out. Cont to provide supportive care. (7) Alcohol abuse: Counseled to quit, pt not interested in rehab at this time. (8) Multiple thyroid nodules: Recently found to have marked bilateral lobe thyroid enlargeent by CT scan during an ER visit with several nodular densities of the supracalvicular and retroclavicular region concerning for neoplastic process. He was referred to ENT but has not been compliant with this. Workup is pending. Counseling patient of the importance of this given the consideration of thyroid lymphoma in the differential diagnosis. (9) Thrombocytopenia due to hypersplenism: Related to liver disease. Peripheral smear ordered (10) Tobacco use disorder: Advise strongly to quit. (11) Protein calorie malnutrition: Moderate Encourage PO higher protein diet (12) Anemia: chronic and around his baseline. No evidence of overt bleeding at this time. Cont to monitor. Peripheral smear ordered (13) Coagulopathy: Related to liver disease (this was also discussed w/ GI and hematology) (14) DVT prophylaxis: SCDs, coagulopathy d/t liver dis. DNR/DNI - discussed w/ pt's family as pt was not able to answer for himself Dispo-to home when medically stable, cont PCU monitoring for now. The patient was made n.p.o. in the setting of altered mental status. He is now tolerating diet. Admission and Anticipated Discharge Date Admission Date: December 30, 2020 Subjective Patient seen in follow-up of A. fib, abdominal and chest discomfort, liver disease, alcohol withdrawal S/p paracentesis with 3.1 L ascitic fluid taken off; no SBP infection was seen. Pt more awake today and answering questions appropriately Burst of SVT yesterday K and Mag low at that time, cardiology also following Pt is now able to take PO medications including atenolol and Cardizem Overall pt has no complaints, no chest pain or shortness of breath, reports some chronic abdominal discomfort at the areas of his hernias, he is also now eating but was not out of bed yet, he is asking when he can try to ambulate He is breathing comfortably on room air Review of Systems Review of Systems: All systems reviewed & are unremarkable except as noted in HPI & below Constitutional: no fever and no chills Respiratory: no cough and no dyspnea Cardiovascular: no chest pain and no palpitations Gastrointestinal: + abdominal pain (chronic at sites of hernias); no vomiting Physical Exam Physical Exam: CONSTITUTIONAL: WNWD, vitals as above, awake and answering questions appropriately EYES: EOMI, PERRL, normal conjunctivae, no scleral icterus ENT: external ear and nose normal, MMM RESPIRATORY: normal respiratory effort, No increased work of breathing, CTAB, breathing on RA CARDIOVASCULAR: regular rate and rhythm, S1 and 2 heard without murmurs, gallops or rubs, no JVD, no peripheral edema CHEST: inspection of chest was normal GASTROINTESTINAL: soft abdomen, nondistended, + bowel sounds, mildly tender at umbilicus and right lower quadrant/groin (areas of known hernias) MUSCULOSKELETAL: moves all extremities symmetrically, no LE edema SKIN: warm and dry NEUROLOGIC: awake today and answering most questions appropriately Results & Data Results & Data ([facility]) Vital Signs (Past 12 Hours) Vital Signs Temp Pulse Pulse Resp BP Pulse Ox 01/07/21 07:28 36.5 C 75 18 108/68 98 01/07/21 04:20 36.9 C 67 18 101/62 97 01/07/21 00:00 76 01/06/21 23:13 36.8 C 70 18 95/55 L 93 Laboratory Results 01/07/21 01/07/21 01/07/21 Range/Units 05:42 05:42 05:42 WBC 8.49 (4.8-10.8) K/uL RBC 3.18 L (4.7-6.1) M/uL Hgb 11.7 L (14.0-18.0) g/dL Hct 33.8 L (42-52) % MCV 106.3 H (80-100) fL MCH 36.8 H (25-34) pg MCHC 34.6 (32-36) g/dL RDW Std Deviation 57.0 H (36.4-46.3) fL RDW Coeff of Hernandez 14.7 H (11.5-14.5) % Plt Count 51 L (130-400) K/uL MPV 11.5 H (7.4-10.4) fL Haptoglobin (43-212) mg/dL PT 19.6 H (9.0-12.0) Seconds INR 2.0 H (0.9-1.1) Sodium 140 (136-145) mmol/L Potassium 3.8 D (3.5-5.1) mmol/L Chloride 111 H (98-107) mmol/L Carbon Dioxide 25 (21-32) mmol/L Anion Gap 4.0 (3-11) BUN 12 (7-18) mg/dl Creatinine 0.69 (0.6-1.4) mg/dl Est Cr Clr Drug Dosing 104.0 ml/min Est GFR ( Amer) 123.0 Est GFR (Non-Af Amer) 106.1 BUN/Creatinine Ratio 16.9 (10-20) Glucose 94 (70-99) mg/dl Calcium 8.2 L (8.5-10.1) mg/dl Phosphorus 3.0 (2.5-4.9) mg/dl Magnesium 2.0 (1.8-2.4) mg/dl Total Bilirubin 7.4 H (0.2-1) mg/dl AST 39 H (15-37) U/L ALT 22 (12-78) U/L Alkaline Phosphatase 90 (45-117) U/L Total Protein 6.3 L (6.4-8.2) gm/dl Albumin 2.0 L (3.4-5.0) gm/dl Globulin 4.3 H (2.5-4.0) gm/dl Albumin/Globulin Ratio 0.5 L (0.9-2) 01/05/21 Range/Units 11:58 WBC (4.8-10.8) K/uL RBC (4.7-6.1) M/uL Hgb (14.0-18.0) g/dL Hct (42-52) % MCV (80-100) fL MCH (25-34) pg MCHC (32-36) g/dL RDW Std Deviation (36.4-46.3) fL RDW Coeff of Hernandez (11.5-14.5) % Plt Count (130-400) K/uL MPV (7.4-10.4) fL Haptoglobin 9 L (43-212) mg/dL PT (9.0-12.0) Seconds INR (0.9-1.1) Sodium (136-145) mmol/L Potassium (3.5-5.1) mmol/L Chloride (98-107) mmol/L Carbon Dioxide (21-32) mmol/L Anion Gap (3-11) BUN (7-18) mg/dl Creatinine (0.6-1.4) mg/dl Est Cr Clr Drug Dosing ml/min Est GFR ( Amer) Est GFR (Non-Af Amer) BUN/Creatinine Ratio (10-20) Glucose (70-99) mg/dl Calcium (8.5-10.1) mg/dl Phosphorus (2.5-4.9) mg/dl Magnesium (1.8-2.4) mg/dl Total Bilirubin (0.2-1) mg/dl AST (15-37) U/L ALT (12-78) U/L Alkaline Phosphatase (45-117) U/L Total Protein (6.4-8.2) gm/dl Albumin (3.4-5.0) gm/dl Globulin (2.5-4.0) gm/dl Albumin/Globulin Ratio (0.9-2) Medications Administered Current Inpatient Medications Acetaminophen (Acetaminophen 325 Mg Tab) 325 mg PO Q6H PRN PRN Reason: Mild Pain Stop: 01/30/21 01:10 Last Admin: 01/06/21 20:11 Dose: 325 mg Documented by: Atenolol (Atenolol 25 Mg Tablet) 25 mg PO QAM [facility] Stop: 02/01/21 11:44 Last Admin: 01/07/21 08:43 Dose: 25 mg Documented by: Diltiazem HCl (Diltiazem Hcl 60 Mg Tab) 60 mg PO TID [facility] Stop: 02/01/21 05:49 Last Admin: 01/07/21 08:42 Dose: 60 mg Documented by: Folic Acid (Folic Acid 1 Mg Tab) 1 mg PO QAM [facility] Stop: 01/30/21 01:10 Last Admin: 01/07/21 08:43 Dose: 1 mg Documented by: Guaifenesin (Guaifenesin 600 Mg Tabcr) 600 mg PO Q12 [facility] Stop: 02/04/21 08:59 Last Admin: 01/07/21 08:43 Dose: 600 mg Documented by: Lorazepam (Ativan) 1 mg in 2 mls @ 2 mls/min IV UD PRN; Protocol PRN Reason: EtOH Withdrawl AWSS Score 6,7 Stop: 01/30/21 01:10 Last Admin: 01/03/21 22:34 Dose: 2 mls/min Documented by: Lorazepam (Ativan) 3 mg in 6 mls @ 4 mls/min IV ONCE PRN; Protocol PRN Reason: EtOH Withdrawl AWSS Score >=10 Stop: 01/30/21 01:10 Last Admin: 01/04/21 19:56 Dose: 4 mls/min Documented by: Lorazepam (Ativan) 2 mg in 4 mls @ 4 mls/min IV UD PRN; Protocol PRN Reason: EtOH Withdrawl AWSS Score 8,9 Stop: 01/30/21 01:10 Last Admin: 01/04/21 01:54 Dose: 4 mls/min Documented by: Thiamine HCl 100 mg/ Syringe 10 mls @ 2 mls/min IV QAM [facility] Stop: 02/03/21 08:59 Last Admin: 01/07/21 08:42 Dose: 2 mls/min Documented by: Folic Acid 1 mg/ Syringe 10 mls [facility] [place] Stop: 02/04/21 09:59 Last Admin: 01/07/21 08:42 Dose: 5 mls/min Documented by: Ceftriaxone Sodium 2,000 mg/ (Dextrose) 70 mls @ 100 mls/hr IV Q24H [facility]; Protocol Stop: 01/12/21 11:59 Last Infusion: 01/06/21 13:28 Dose: Infused Documented by: Doxycycline Hyclate 100 mg/ (Dextrose) 110 mls @ 50 mls/hr IV Q12H [facility]; Protocol Stop: 01/12/21 12:59 Last Infusion: 01/07/21 02:40 Dose: Infused Documented by: Lactulose (Lactulose Syrup 20 Gm/30 Ml Udc) 20 gm PO [id number] PRN PRN Reason: give if no BM 2-3 times/24h Stop: 01/31/21 16:59 Last Admin: 01/01/21 17:47 Dose: 20 gm Documented by: Magnesium Oxide (Magnesium Oxide 400 Mg Tab) 400 mg PO BID [facility] Stop: 02/01/21 20:59 Last Admin: 01/07/21 08:43 Dose: 400 mg Documented by: Metoprolol Tartrate (Metoprolol Tartrate 1 Mg/Ml Vial) 2.5 mg IV Q6 [facility] Stop: 02/02/21 05:59 Last Admin: 01/06/21 12:39 Dose: 2.5 mg Documented by: Miscellaneous (Remove Nicoderm Patch) 1 ea N/A DAILY@0859 [facility] Stop: 02/05/21 08:58 Last Admin: 01/07/21 08:42 Dose: 1 ea Documented by: Multivitamins (Multivitamin Tab) 1 tab PO QAM [facility] Stop: 01/30/21 08:59 Last Admin: 01/07/21 08:43 Dose: 1 tab Documented by: Nicotine (Nicotine 7 Mg/24 Hr Tdsy) 7 mg TD QAM [facility] Stop: 02/04/21 09:59 Last Admin: 01/07/21 08:44 Dose: Not Given Documented by: Rifaximin (Rifaximin 550 Mg Tablet) 550 mg PO BID [facility] Stop: 01/31/21 20:59 Last Admin: 01/07/21 08:42 Dose: 550 mg Documented by: Thiamine HCl (Thiamine Hcl 100 Mg Tab) 100 mg PO QAM [facility] Stop: 01/30/21 01:10 Last Admin: 01/03/21 10:03 Dose: Not Given Documented by:
[2021-01-07] MEDS ORDERED: PHYTONADIONE 5 MG TAB PO STA (10:27)
[2021-01-07] MEDS: cefTRIAXone SODIUM 2,000 MG in DEXTROSE 5% 50 ML IV SCH (11:20)
--- NOTE | 2021-01-07 11:51 | Cardiology Progress Note ---
Date of Service January 07, 2021 Assessment & Plan (1) Atrial fibrillation with RVR: Continue with the atenolol and diltiazem. The patient is maintaining sinus rhythm. No additional suggestions at this time. He is not a candidate for long-term anticoagulation. He can be discharged per the medicine service. (2) Alcohol abuse: The patient is alert and oriented today. He is eating lunch. (3) Alcoholic cirrhosis of liver with ascites: Supportive care and encouragement to stop alcohol. Admission and Anticipated Discharge Date Admission Date: December 30, 2020 Subjective The patient is alert and oriented today. He is eating lunch. Review of Systems Review of Systems: All systems reviewed & are unremarkable except as noted in HPI & below Nothing additional to add. Physical Exam Physical Exam: General: no acute distress and stated age Head: normocephalic, no masses, lesions, tenderness or abnormalities Eyes: conjunctiva are pink and non-injected, sclera clear Neck: supple, no adenopathy, no bruits, normal jugular venous pulse, no hepatojugular reflux Chest: normal shape and normal respiratory effort Lungs: clear to auscultation and percussion Cardiac Exam: - regular rate & rhythm, no murmurs gallops or rubs - normal S1, normal S2 Pulses: 2(+) throughout Abdomen: abdomen soft, non-tender, no abnormal masses and no hepatosplenomegaly Musculoskeletal: no gait disturbance, no joint inflammation, no deforming arthritis Extremities: no edema and no cyanosis Neuro: grossly normal exam Results & Data ([facility]) Vital Signs (Past 12 Hours) Vital Signs Temp Pulse Pulse Resp BP Pulse Ox 01/07/21 07:28 36.5 C 75 18 108/68 98 01/07/21 04:20 36.9 C 67 18 101/62 97 01/07/21 00:00 76 Laboratory Results Laboratory Results - last 24 hr 01/07/21 01/07/21 01/07/21 05:42 05:42 05:42 WBC 8.49 RBC 3.18 L Hgb 11.7 L Hct 33.8 L MCV 106.3 H MCH 36.8 H MCHC 34.6 RDW Std Deviation 57.0 H RDW Coeff of Hernandez 14.7 H Plt Count 51 L MPV 11.5 H PT 19.6 H INR 2.0 H Sodium 140 Potassium 3.8 D Chloride 111 H Carbon Dioxide 25 Anion Gap 4.0 BUN 12 Creatinine 0.69 Est Cr Clr Drug Dosing 104.0 Est GFR ( Amer) 123.0 Est GFR (Non-Af Amer) 106.1 BUN/Creatinine Ratio 16.9 Glucose 94 Calcium 8.2 L Phosphorus 3.0 Magnesium 2.0 Total Bilirubin 7.4 H AST 39 H ALT 22 Alkaline Phosphatase 90 Total Protein 6.3 L Albumin 2.0 L Globulin 4.3 H Albumin/Globulin Ratio 0.5 L Diagnostic Findings Maintaining sinus rhythm on telemetry. Medications Administered Current Inpatient Medications Acetaminophen (Acetaminophen 325 Mg Tab) 325 mg PO Q6H PRN PRN Reason: Mild Pain Stop: 01/30/21 01:10 Last Admin: 01/06/21 20:11 Dose: 325 mg Documented by: Atenolol (Atenolol 25 Mg Tablet) 25 mg PO QAM [facility] Stop: 02/01/21 11:44 Last Admin: 01/07/21 08:43 Dose: 25 mg Documented by: Diltiazem HCl (Diltiazem Hcl 60 Mg Tab) 60 mg PO TID [facility] Stop: 02/01/21 05:49 Last Admin: 01/07/21 08:42 Dose: 60 mg Documented by: Folic Acid (Folic Acid 1 Mg Tab) 1 mg PO QAM [facility] Stop: 01/30/21 01:10 Last Admin: 01/07/21 08:43 Dose: 1 mg Documented by: Guaifenesin (Guaifenesin 600 Mg Tabcr) 600 mg PO Q12 [facility] Stop: 02/04/21 08:59 Last Admin: 01/07/21 08:43 Dose: 600 mg Documented by: Lorazepam (Ativan) 1 mg in 2 mls @ 2 mls/min IV UD PRN; Protocol PRN Reason: EtOH Withdrawl AWSS Score 6,7 Stop: 01/30/21 01:10 Last Admin: 01/03/21 22:34 Dose: 2 mls/min Documented by: Lorazepam (Ativan) 3 mg in 6 mls @ 4 mls/min IV ONCE PRN; Protocol PRN Reason: EtOH Withdrawl AWSS Score >=10 Stop: 01/30/21 01:10 Last Admin: 01/04/21 19:56 Dose: 4 mls/min Documented by: Lorazepam (Ativan) 2 mg in 4 mls @ 4 mls/min IV UD PRN; Protocol PRN Reason: EtOH Withdrawl AWSS Score 8,9 Stop: 01/30/21 01:10 Last Admin: 01/04/21 01:54 Dose: 4 mls/min Documented by: Thiamine HCl 100 mg/ Syringe 10 mls @ 2 mls/min IV QAM [facility] Stop: 02/03/21 08:59 Last Admin: 01/07/21 08:42 Dose: 2 mls/min Documented by: Folic Acid 1 mg/ Syringe 10 mls @ 5 mls/min IV QAM [facility] Stop: 02/04/21 09:59 Last Admin: 01/07/21 08:42 Dose: 5 mls/min Documented by: Ceftriaxone Sodium 2,000 mg/ (Dextrose) 70 mls @ 100 mls/hr IV Q24H [facility]; Protocol Stop: 01/12/21 11:59 Last Admin: 01/07/21 11:20 Dose: 100 mls/hr Documented by: Doxycycline Hyclate 100 mg/ (Dextrose) 110 mls @ 50 mls/hr IV Q12H [facility]; Protocol Stop: 01/12/21 12:59 Last Infusion: 01/07/21 02:40 Dose: Infused Documented by: Lactulose (Lactulose Syrup 20 Gm/30 Ml Udc) 20 gm PO BID17 PRN PRN Reason: give if no BM 2-3 times/24h Stop: 01/31/21 16:59 Last Admin: 01/01/21 17:47 Dose: 20 gm Documented by: Magnesium Oxide (Magnesium Oxide 400 Mg Tab) 400 mg PO BID [facility] Stop: 02/01/21 20:59 Last Admin: 01/07/21 08:43 Dose: 400 mg Documented by: Metoprolol Tartrate (Metoprolol Tartrate 1 Mg/Ml Vial) 2.5 mg IV Q6 [facility] Stop: 02/02/21 05:59 Last Admin: 01/06/21 12:39 Dose: 2.5 mg Documented by: Miscellaneous (Remove Nicoderm Patch) 1 ea N/A DAILY@59 [facility] Stop: 02/05/21 08:58 Last Admin: 01/07/21 08:42 Dose: 1 ea Documented by: Multivitamins ([facility]ivitamin Tab) [facility] Stop: 01/30/21 08:59 Last Admin: 01/07/21 08:43 Dose: 1 tab Documented by: Nicotine (Nicotine 7 Mg/24 Hr Tdsy) 7 mg TD [facility] Stop: 02/04/21 09:59 Last Admin: 01/07/21 08:44 Dose: Not Given Documented by: Rifaximin (Rifaximin 550 Mg Tablet) 550 mg PO BID [facility] Stop: 01/31/21 20:59 Last Admin: 01/07/21 08:42 Dose: 550 mg Documented by: Thiamine HCl (Thiamine Hcl 100 Mg Tab) 100 mg PO QAM [facility] Stop: 01/30/21 01:10 Last Admin: 01/03/21 10:03 Dose: Not Given Documented by:
[2021-01-08 05:50] LABS: Hematocrit (blood only) 32.2 % (42-52); Mean Corpuscular Hemoglobin 36.9 pg (25-34); Mean Corpuscular Hgb Conc 34.2 g/dL (32-36); Mean Corpuscular Volume 108.1 fL (80-100); RDW Standard Deviation 58.6 fL (36.4-46.3); Red Blood Count 2.98 M/uL (4.7-6.1); White Blood Count 7.46 K/uL (4.8-10.8)
[2021-01-08 05:57] LABS: Mean Platelet Volume 11.3 fL (7.4-10.4); Platelet Count 49 K/uL (130-400)
[2021-01-08 05:58] LABS: INR 2.1 (0.9-1.1); Prothrombin Time 19.9 Seconds (9.0-12.0)
[2021-01-08 06:32] LABS: Albumin Globulin Ratio 0.5 (0.9-2); Albumin Level 1.8 gm/dl (3.4-5.0); BUN Creatinine Ratio 19.5 (10-20); Bilirubin,Total 6.4 mg/dl (0.2-1); Calcium 8.1 mg/dl (8.5-10.1); Creatinine Clr Calc Pharmacy 99.7 ml/min; Est GFR (African American) 120.9; Est GFR (Non-African American) 104.3; Magnesium 1.9 mg/dl (1.8-2.4); Phosphorus 3.5 mg/dl (2.5-4.9); Potassium 3.9 mmol/L (3.5-5.1); Total Protein 5.8 gm/dl (6.4-8.2)
--- NOTE | 2021-01-08 07:49 | Hospitalist Progress Note ---
Date of Service January 08, 2021 Assessment & Plan (1) Hypoxia: Initially Hypervolemia 2/2 decompensated cirrhosis with ascites. Pulmonary congestion improved with recent Lasix. Cont to dose PRN Lasix given with good response. Steroids were stopped as clinical history was not consistent with a COPD exacerbation and want to avoid polypharmacy contributing to delirium. Pt on oxymask, has a cough (?chronic), repeated CXR and obtained procalcitonin CXR c/w multifocal pna vs. pulm. congestion, started on Rocephin and doxy and gave IV lasix, procal negative Currently breathing comfortably on room air, patient is also awake and answering questions appropriately (01/07 and 01/08) (2) Alcohol withdrawal delirium: He originally arrived intoxicated and then withdrawing. He required several doses of Ativan to combat significant delirium and agitation. Patient is awake now, cooperative, and answering questions appropriately (3) Atrial fibrillation with rapid ventricular response: Maintaining in sinus rhythm overnight on telemetry review. He is not a candidate for anticoagulation 2/2 h/o alcoholism, h/o noncompliance with medical therapy and GI bleeding from esophageal varices. He is notably au toanticoagulated from severe liver disease with an INR 1.8-2.0 this admission. Cont scheduled diltiazem and atenolol once tolerating PO. In setting of delirium he was placed on scheduled IV Lopressor with hold parameters. Burst of SVT 4/1 AM, low K and Mag, repleted Pt seems to be tolerating PO now, therefore received PO cardizem Continues to be in sinus rhythm now, able to take p.o. Cardizem and atenolol (01/07) (4) Alcoholic cirrhosis of liver with ascites: Ascites with abdominal pain present. Paracentesis with 3.1 L off negative for SBP. Ceftriaxone and albumin stopped. Improved with IV Lasix. Cont low Na diet and 1.8L fluid restriction. (5) Alcoholic hepatitis with ascites: This is a questionable diagnosis. Elevated discriminant function, however, given absence of leukocytosis GI provider suspects this is largely related to cirrhosis rather than hepatitis and steroids were deferred. Additionally this patient has a known history of chronic abdominal pain. (6) Abdominal pain: there is a chronic component to this. SBP was ruled out. Cont to provide supportive care. (7) Alcohol abuse: Counseled to quit, pt not interested in rehab at this time. Feels that he has good family support. Family contacted and long discussion was held about patient's alcoholism. Patient tried several rehabs before, and now he is not interested anymore. Patient wishes to go home with family. (8) Multiple thyroid nodules: Recently found to have marked bilateral lobe thyroid enlargeent by CT scan during an ER visit with several nodular densities of the supracalvicular and retroclavicular region concerning for neoplastic process. He was referred to ENT but has not been compliant with this. Workup is pending. Counseling patient of the importance of this given the consideration of thyroid lymphoma in the differential diagnosis. (9) Thrombocytopenia due to hypersplenism: Related to liver disease. Peripheral smear ordered (10) Tobacco use disorder: Advise strongly to quit. (11) Protein calorie malnutrition: Moderate Encourage PO higher protein diet (12) Anemia: chronic and around his baseline. No evidence of overt bleeding at this time. Cont to monitor. Peripheral smear ordered (13) Coagulopathy: Related to liver disease (this was also discussed w/ GI and hematology) (14) DVT prophylaxis: SCDs, coagulopathy d/t liver dis. DNR/DNI - discussed w/ pt's family as pt was not able to answer for himself Dispo - home as patient is not interested in any rehab. He has good family support however despite their support they cannot control patient's behavior. They do report that patient often relapses and starts drinking after leaving the hospital. Discussed this with patient, he reports understanding that he is hurting himself by drinking. He feels he will do hopefully better this time with his family around. When asked how else we could support him, he did not have any more recommendations, reports that he will try to take medications. Admission and Anticipated Discharge Date Admission Date: December 30, 2020 Subjective Patient seen in follow-up of A. fib, abdominal and chest discomfort, liver disease, alcohol withdrawal S/p paracentesis with 3.1 L ascitic fluid taken off; no SBP infection was seen. Pt awake today and answering questions appropriately He is eating well. He is breathing comfortably on room air Inquiring about going home, discussed with patient and his family further follow-up and medications. Family concerned about patient starting drinking again after being discharged. Patient however does not want to go anywhere besides home. At this time feels that his family would be helpful to him and says that he understands that he is hurting himself by drinking. Discussed with the family that patient never takes his medications. Discussed with medications to prioritize. Discussed this also with the patient, who showed appreciation for making medications more understandable and easy for him. Review of Systems Review of Systems: All systems reviewed & are unremarkable except as noted in HPI & below Physical Exam Physical Exam: CONSTITUTIONAL: WNWD, vitals as above, awake and answering questions appropriately EYES: EOMI, PERRL, normal conjunctivae, no scleral icterus ENT: external ear and nose normal, MMM RESPIRATORY: normal respiratory effort, No increased work of breathing, CTAB, breathing on RA CARDIOVASCULAR: regular rate and rhythm, S1 and 2 heard without murmurs, gallops or rubs, no JVD, no peripheral edema CHEST: inspection of chest was normal GASTROINTESTINAL: soft abdomen, nondistended, + bowel sounds, mildly tender at umbilicus and right lower quadrant/groin (areas of known hernias) MUSCULOSKELETAL: moves all extremities symmetrically, no LE edema SKIN: warm and dry NEUROLOGIC: awake today and answering questions appropriately Results & Data Results & Data ([facility]) Vital Signs (Past 12 Hours) Vital Signs Temp Pulse Pulse Resp BP Pulse Ox 01/08/21 04:10 37.0 C 64 16 93/57 L 93 01/08/21 00:23 63 01/07/21 23:24 37.1 C 67 16 93/53 L 94 01/07/21 22:00 63 Laboratory Results 01/08/21 01/08/21 01/08/21 Range/Units 05:42 05:42 05:42 WBC 7.46 (4.8-10.8) K/uL RBC 2.98 L (4.7-6.1) M/uL Hgb 11.0 L (14.0-18.0) g/dL Hct 32.2 L (42-52) % MCV 108.1 H (80-100) fL MCH 36.9 H (25-34) pg MCHC 34.2 (32-36) g/dL RDW Std Deviation 58.6 H (36.4-46.3) fL RDW Coeff of Hernandez 15.0 H (11.5-14.5) % Plt Count 49 L (130-400) K/uL MPV 11.3 H (7.4-10.4) fL PT 19.9 H (9.0-12.0) Seconds INR 2.1 H (0.9-1.1) Sodium 142 (136-145) mmol/L Potassium 3.9 (3.5-5.1) mmol/L Chloride 113 H (98-107) mmol/L Carbon Dioxide 25 (21-32) mmol/L Anion Gap 4.0 (3-11) BUN 14 (7-18) mg/dl Creatinine 0.72 (0.6-1.4) mg/dl Est Cr Clr Drug Dosing 99.7 ml/min Est GFR ( Amer) 120.9 Est GFR (Non-Af Amer) 104.3 BUN/Creatinine Ratio 19.5 (10-20) Glucose 86 (70-99) mg/dl Calcium 8.1 L (8.5-10.1) mg/dl Phosphorus 3.5 (2.5-4.9) mg/dl Magnesium 1.9 (1.8-2.4) mg/dl Total Bilirubin 6.4 H (0.2-1) mg/dl AST 37 (15-37) U/L ALT 20 (12-78) U/L Alkaline Phosphatase 84 (45-117) U/L Total Protein 5.8 L (6.4-8.2) gm/dl Albumin 1.8 L (3.4-5.0) gm/dl Globulin 4.0 (2.5-4.0) gm/dl Albumin/Globulin Ratio 0.5 L (0.9-2) Medications Administered Current Inpatient Medications Acetaminophen (Acetaminophen 325 Mg Tab) 325 mg PO Q6H PRN PRN Reason: Mild Pain Stop: 01/30/21 01:10 Last Admin: 01/06/21 20:11 Dose: 325 mg Documented by: Atenolol (Atenolol 25 Mg Tablet) 25 mg PO QAM [facility] Stop: 02/01/21 11:44 Last Admin: 01/07/21 08:43 Dose: 25 mg Documented by: Diltiazem HCl (Diltiazem Hcl 60 Mg Tab) 60 mg PO TID [facility] Stop: 02/01/21 05:49 Last Admin: 01/07/21 20:15 Dose: 60 mg Documented by: Folic Acid (Folic Acid 1 Mg Tab) 1 mg PO QAM [facility] Stop: 01/30/21 01:10 Last Admin: 01/07/21 08:43 Dose: 1 mg Documented by: Guaifenesin (Guaifenesin 600 Mg Tabcr) 600 mg PO Q12 [facility] Stop: 02/04/21 08:59 Last Admin: 01/07/21 20:16 Dose: 600 mg Documented by: Lorazepam (Ativan) 1 mg in 2 mls @ 2 mls/min IV UD PRN; Protocol PRN Reason: EtOH Withdrawl AWSS Score 6,7 Stop: 01/30/21 01:10 Last Admin: 01/03/21 22:34 Dose: 2 mls/min Documented by: Lorazepam (Ativan) 3 mg in 6 mls @ 4 mls/min IV ONCE PRN; Protocol PRN Reason: EtOH Withdrawl AWSS Score >=10 Stop: 01/30/21 01:10 Last Admin: 01/04/21 19:56 Dose: 4 mls/min Documented by: Lorazepam (Ativan) 2 mg in 4 mls @ 4 mls/min IV UD PRN; Protocol PRN Reason: EtOH Withdrawl AWSS Score 8,9 Stop: 01/30/21 01:10 Last Admin: 01/04/21 01:54 Dose: 4 mls/min Documented by: Thiamine HCl 100 mg/ Syringe 10 mls @ 2 mls/min IV QAM [facility] Stop: 02/03/21 08:59 Last Admin: 01/07/21 08:42 Dose: 2 mls/min Documented by: Folic Acid 1 mg/ Syringe 10 mls @ 5 mls/min IV QAM [facility] Stop: 02/04/21 09:59 Last Admin: 01/07/21 08:42 Dose: 5 mls/min Documented by: Ceftriaxone Sodium 2,000 mg/ (Dextrose) 70 mls @ 100 mls/hr IV Q24H [facility]; Protocol Stop: 01/12/21 11:59 Last Infusion: 01/07/21 12:02 Dose: Infused Documented by: Doxycycline Hyclate 100 mg/ (Dextrose) 110 mls @ 50 mls/hr IV Q12H [facility]; Protocol Stop: 01/12/21 12:59 Last Infusion: 01/08/21 02:07 Dose: Infused Documented by: Lactulose (Lactulose Syrup 20 Gm/30 Ml Udc) 20 gm PO BID17 PRN PRN Reason: give if no BM 2-3 times/24h Stop: 01/31/21 16:59 Last Admin: 01/01/21 17:47 Dose: 20 gm Documented by: Magnesium Oxide (Magnesium Oxide 400 Mg Tab) 400 mg PO BID [facility] Stop: 02/01/21 20:59 Last Admin: 01/07/21 20:17 Dose: 400 mg Documented by: Metoprolol Tartrate (Metoprolol Tartrate 1 Mg/Ml Vial) 2.5 mg IV Q6 [facility] Stop: 02/02/21 05:59 Last Admin: 01/06/21 12:39 Dose: 2.5 mg Documented by: Miscellaneous (Remove Nicoderm Patch) 1 ea N/A DAILY@0859 [facility] Stop: 02/05/21 08:58 Last Admin: 01/07/21 08:42 Dose: 1 ea Documented by: Multivitamins (Multivitamin Tab) 1 tab PO QAM [facility] Stop: 01/30/21 08:59 Last Admin: 01/07/21 08:43 Dose: 1 tab Documented by: Nicotine (Nicotine 7 Mg/24 Hr Tdsy) 7 mg TD QAM [facility] Stop: 02/04/21 09:59 Last Admin: 01/07/21 08:44 Dose: Not Given Documented by: Rifaximin (Rifaximin 550 Mg Tablet) 550 mg PO BID [facility] Stop: 01/31/21 20:59 Last Admin: 01/07/21 20:15 Dose: 550 mg Documented by: Thiamine HCl (Thiamine Hcl 100 Mg Tab) 100 mg PO QAM [facility] Stop: 01/30/21 01:10 Last Admin: 01/03/21 10:03 Dose: Not Given Documented by:
[2021-01-08] MEDS: MAGNESIUM OXIDE 400 MG TAB PO SCH (09:07)
[2021-01-08] MEDS: rifAXIMin 550 MG TABLET PO SCH (09:07)
[2021-01-08] MEDS: guaiFENesin 600 MG TABCR PO SCH (09:07)
[2021-01-08] MEDS: dilTIAZem HCl 60 MG TAB PO SCH ×2 (09:07→16:06)
[2021-01-08] MEDS: FOLIC ACID 1 MG TAB PO SCH (09:08)
[2021-01-08] MEDS: FOLIC ACID 1 MG in SYRINGE 9.8 ML IV SCH (09:08)
[2021-01-08] MEDS: MULTIVITAMIN TAB PO SCH (09:08)
[2021-01-08] MEDS: THIAMINE HCL 100 MG in SYRINGE 9 ML IV SCH (09:08)
[2021-01-08] MEDS: ATENOLOL 25 MG TABLET PO SCH (09:08)
[2021-01-08] MEDS: NICOTINE 7 MG/24 HR TDSY TD SCH (09:38)
[2021-01-08] MEDS: DOXYCYCLINE HYCLATE 100 MG in DEXTROSE 5% 100 ML IV SCH (13:25)
[2021-01-08] MEDS: cefTRIAXone SODIUM 2,000 MG in DEXTROSE 5% 50 ML IV SCH (16:06)
--- NOTE | 2021-01-08 18:04 | Discharge Summary ---
Date of Service January 08, 2021 Admission HPI Per Admitting Provider History obtained from the patient and records. Medical history significant for alcoholic cirrhosis, COPD, ongoing tobacco/alcohol abuse, PAF/hx PE not on anticoagulation 2 to GI bleed, mood disorder, chronic thrombocytopenia, history of esophageal varices per records, chronic anemia (baseline hemoglobin of 12), hypothyroidism, goiter. Last confinement September 2024 rapid A. fib, COVID-19 pneumonia. Patient discharged on diltiazem 30 mg p.o. 3 times daily which patient did not comply with. 2 weeks ago patient noted achy abdominal pain attributed to abdominal hernias. Umbilical hernia and right inguinal hernia on PCP exam as per documentation. Outpatient abdominal ultrasound requested. Outpatient General Surgery consultation scheduled after 2 weeks. Patient had worsening achy abdominal pain and distention the last week. Abdominal pain going to the chest with some shortness of breath as per patient. Some nausea and emesis as per patient. No diarrhea. No fever, no chills. Usual cough symptoms as per patient. PCP offered to move General surgery appointment earlier. Patient went to ER for worsening symptoms. Noted to be in rapid A. fib. IV Cardizem started at the ER. Patient subsequently converted to NSR. Medical History as above Surgical History : Cholecystectomy Family History : Leukemia, thyroid cancer, heart disease Personal/Social history : Ongoing tobacco/alcohol abuse, disabled Admission Exam Per Admitting Provider GENERAL: Slightly uncomfortable, alcoholic fetor, no respiratory distress SKIN: Pallor, warm HEENT: Pale palpebral conjunctivae, no ptosis, dry buccal mucosa NECK : Supple, thyroid enlargement, no tenderness CHEST : Decreased breath sounds, no tenderness HEART : Tachycardic, irregular, no obvious murmurs ABDOMEN: distention, umbilical hernia, central abdominal tenderness, positive fluid wave EXTREMITIES : Minimal LE swelling, no LE tenderness, no other conspicuous deformities noted NEUROLOGIC : Coherent, no facial asymmetry, no other gross focality Principal Diagnosis Recurrent atrial fibrillation, Afib w/ RVR Alcoholism, alcohol withdrawal Alcoholic liver disease w/ ascites Coagulopathy secondary to liver disease Discharge Exam CONSTITUTIONAL: WNWD, vitals as above, awake and answering questions appropriately EYES: EOMI, PERRL, normal conjunctivae, no scleral icterus ENT: external ear and nose normal, MMM RESPIRATORY: normal respiratory effort, No increased work of breathing, CTAB, breathing on RA CARDIOVASCULAR: regular rate and rhythm, S1 and 2 heard without murmurs, gallops or rubs, no JVD, no peripheral edema CHEST: inspection of chest was normal GASTROINTESTINAL: soft abdomen, nondistended, + bowel sounds, mildly tender at umbilicus and right lower quadrant/groin (areas of known hernias- chronic) MUSCULOSKELETAL: moves all extremities symmetrically, no LE edema SKIN: warm and dry NEUROLOGIC: awake today and answering questions appropriately Discharge Data Allergies Allergy/AdvReac Type Severity Reaction Status Date / Time fentanyl Allergy Intermediate RASH ALL Verified 12/30/20 22:02 OVER BODY Consultations 12/30/20 21:53 ED Decision to Admit Stat 12/31/20 01:11 Consult Gastroenterology Routine 12/31/20 09:05 Consult Cardiology Routine Ordered Studies 12/30/20 22:24 CT abd pelvis IV con only Urgent IMPRESSION: 1. Redemonstration of the cirrhosis with evidence of portal hypertension i ncluding upper abdominal/paraesophageal varices. 2. Moderate ascites, unchanged. 3. Right-sided hydrocele, unchanged. 4. Mild thickening of the ascending colon, unchanged. This favors portal colopathy. No evidence for bowel obstruction. 12/30/20 22:45 CT angio chest PE protocol Urgent IMPRESSION: 1. No pulmonary emboli identified. 2. Dilated central pulmonary arteries suggestive of pulmonary arterial hypertension. 3. Mild interstitial edema. Resolution of groundglass opacities shown on prior exam. 4. No significant change in prominent mediastinal and bilateral hilar lymph nodes. 12/31/20 13:00 US paracentesis abd w/image Routine IMPRESSION: Successful ultrasound-guided paracentesis with removal of approximately 3.1 liters of ascitic fluid. 01/05/21 14:30 US venous doppler LE BI Routine IMPRESSION: No DVT within the right or left lower extremity. 01/05/21 15:15 US duplex portal hepatic veins Urgent IMPRESSION: 1. The main portal vein is patent with bidirectional flow. 2. There is reversal of flow within the right portal vein. 3. The left portal vein was not visualized. This was shown to be patent by CT. Hospital Course (1) Hypoxia: Initially Hypervolemia 2/2 decompensated cirrhosis with ascites. Pulmonary congestion improved with recent Lasix. Cont to dose PRN Lasix given with good response. Steroids were stopped as clinical history was not consistent with a COPD exacerbation and want to avoid polypharmacy contributing to delirium. Pt on oxymask, has a cough (?chronic), repeated CXR and obtained procalcitonin CXR c/w multifocal pna vs. pulm. congestion, started on Rocephin and doxy and gave IV lasix, procal negative Currently breathing comfortably on room air, patient is also awake and answering questions appropriately (01/07 and 01/08) (2) Alcohol withdrawal delirium: He originally arrived intoxicated and then withdrawing. He required several doses of Ativan to combat significant delirium and agitation. Patient is awake now, cooperative, and answering questions appropriately (3) Atrial fibrillation with rapid ventricular response: Maintaining in sinus rhythm overnight on telemetry review. He is not a candidate for anticoagulation 2/2 h/o alcoholism, h/o noncompliance with medical therapy and GI bleeding from esophageal varices. He is notably autoanticoagulated from severe liver disease with an INR 1.8-2.0 this admission. Cont scheduled diltiazem and atenolol once tolerating PO. In setting of delirium he was placed on scheduled IV Lopressor with hold parameters. Burst of SVT / AM, low K and Mag, repleted Pt seems to be tolerating PO now, therefore received PO cardizem Continues to be in sinus rhythm now, able to take p.o. Cardizem and atenolol (01/07) (4) Alcoholic cirrhosis of liver with ascites: Ascites with abdominal pain present. Paracentesis with 3.1 L off negative for SBP. Ceftriaxone and albumin stopped. Improved with IV Lasix. Cont low Na diet and 1.8L fluid restriction. (5) Alcoholic hepatitis with ascites: This is a questionable diagnosis. Elevated discriminant function, however, given absence of leukocytosis GI provider suspects this is largely related to cirrhosis rather than hepatitis and steroids were deferred. Additi onally this patient has a known history of chronic abdominal pain. (6) Abdominal pain: there is a chronic component to this. SBP was ruled out. Cont to provide supportive care. (7) Alcohol abuse: Counseled to quit, pt not interested in rehab at this time. Feels that he has good family support. Family contacted and long discussion was held about patient's alcoholism. Patient tried several rehabs before, and now he is not interested anymore. Patient wishes to go home with family. (8) Multiple thyroid nodules: Recently found to have marked bilateral lobe thyroid enlargeent by CT scan during an ER visit with several nodular densities of the supracalvicular and retroclavicular region concerning for neoplastic process. He was referred to ENT but has not been compliant with this. Workup is pending. Counseling patient of the importance of this given the consideration of thyroid lymphoma in the differential diagnosis. (9) Thrombocytopenia due to hypersplenism: Related to liver disease. Peripheral smear ordered (10) Tobacco use disorder: Advise strongly to quit. (11) Protein calorie malnutrition: Moderate Encourage PO higher protein diet (12) Anemia: chronic and around his baseline. No evidence of overt bleeding at this time. Cont to monitor. Peripheral smear ordered (13) Coagulopathy: Related to liver disease (this was also discussed w/ GI and hematology) (14) DVT prophylaxis: SCDs, coagulopathy d/t liver dis. DNR/DNI - discussed w/ pt's family as pt was not able to answer for himself Dispo - home as patient is not interested in any rehab. He has good family support however despite their support they cannot control patient's behavior. They do report that patient often relapses and starts drinking after leaving the hospital. Discussed this with patient, he reports understanding that he is hurting himself by drinking. He feels he will do hopefully better this time with his family around. When asked how else we could support him, he did not have any more recommendations, reports that he will try to take medications. Total Time Total Time Spent Total Time Spent (In Minutes): 37 Total Time Includes: Examination of the Patient, Discharge Planning and Medication Reconciliation Discharge Plan Discharge Items Patient Disposition: Home - Self-Care Reason For Visit: RECURRENT AF Discharge Diagnosis: Recurrent atrial fibrillation, Afib w/ RVR Alcoholism, alcohol withdrawal Alcoholic liver disease w/ ascites Coagulopathy secondary to liver disease Activity: Per Instructions section Non-emergency contact: Primary Care Provider and Hotel Maintenance Technician Call non-emergency contact if: you have any medication questions and your symptoms worsen Follow-up/Referrals: Jean Dave MD [Primary Care Provider] - Diet: Regular and Low Sodium (2gm) Fluids: 1800ml (7 cups) Addtl Attending Provider Instructions: Recommend close follow-up with family doctor, within 1 week of your discharge. It is crucial that you discuss with your family physician all your medications, and possible medications to help you with alcoholism. It is crucial that you abstain from alcohol. Also recommend to follow-up with your sizing machine and drier operator, regarding your liver disease. Recommend to take vitamins thiamine and folic acid daily as these get depleted with alcohol use. Recommend to take Cardizem and atenolol to prevent your heart going into abnormal rhythm, atrial fibrillation. Recommend taking Xifaxan for your liver disease. Finish antibiotic course, doxycycline, in the next 2 days. Recommend good diet higher in protein, and low in sodium/salt. This will help not to accumulate fluid in your abdomenascites. Pending Studies at Discharge: No Stand-Alone Forms: My [facility] [employer], Smoking Cessation Medications and DC Order Prescriptions: New Xifaxan 550 mg Tablet 550 mg PO BID Qty: 10 RF: 0 nicotine 7 mg/24 hr Patch 24 Hour 7 mg transdermal QAM Qty: 14 RF: 0 atenolol 25 mg Tablet 25 mg PO QAM Qty: 20 RF: 0 diltiazem HCl 60 mg Tablet 60 mg PO TID 20 Days Qty: 60 RF: 0 lactulose 20 gram/30 mL Solution 15 ml PO BID17 PRN (Reason: constipation) Qty: 1200 RF: 0 folic acid 1 mg Tablet 1 mg PO QAM Qty: 30 RF: 0 thiamine HCl (vitamin B1) [Vitamin B-1] 100 mg Tablet 100 mg PO QAM Qty: 30 RF: 0 doxycycline hyclate 100 mg tablet 100 mg PO BID 2 Days Qty: 4 RF: 0 No Action No Known Home Medications RF: 0 Discharge Orders: Discharge Order (Routine); Ordered 01/08/21 Ordered By: Paco Johnson Admission Data Admit Date/Time: 12/30/20 23:39 Attending Provider: Paco Johnson Admit Provider: Cayden Salazar Primary Care Provider: Jean Dave Other Providers: Cayden Salazar ; Lupe Marino ; Kathy Cramer ; Gm Cox ; Heydi Jean ; Abdullahi Suh ; Hilda Nieves ; Milton Palma ; Pierre Jimenez ; Gadiel Lawrence ; Dorina Lazar ; Glo Alvarado ; Amber Maza ; Adalgisa Royal ; Ira Mathis ; Devan Baez ; Norma Barrera
== END 2021-01-08 20:13 | disposition home or self-care (01) | DRG 432 ==
LOC: ED 17:42 → SUATTDRO 23:39 → 2S 23:39

== ENCOUNTER 2021-03-19 12:38 | Inpatient (IN) ==
[2021-03-19] MEDS ORDERED: SODIUM CHLORIDE 0.9% 1000ML 1,000 ML IV STA (13:04)
[2021-03-19] MEDS ORDERED: MoRPHine SULFATE 2 MG/ML CARP IV STA (13:04)
--- NOTE | 2021-03-19 13:10 | Emergency Department Note ---
Impression & Plan Chest pain, Alcohol abuse, Sacral decubitus ulcer, Syncope ED Provider Note INFORMANT: Patient ED PROVIDER(S): Sanket Reyes MD CHIEF COMPLAINT: Chest pain PLAN: Disposition: Admitted Condition: Good Outpatient prescription management: none Referral: None MEDICAL DECISION MAKING: Patient presented complaining of chest pain. He had a nonischemic ECG. His CBC and chemistry panel were unremarkable. The patient had a normal troponin. His alcohol level was significantly elevated. He notes he cannot take aspirin. The patient had a borderline low blood pressure and therefore nitro was held. He was given a dose of morphine. [facility] The case was discussed with Rebekah thomas NP. Patient will be admitted by . Triage Nursing notes reviewed and agree them. Vital Signs: reviewed and remarkable for no significant abnormalities Differential diagnosis: Cardiac ischemia, aortic dissection, pulmonary embolism, pneumothorax, pneumonia, pericarditis, myocarditis, esophageal rupture, GERD, cholecystitis, pancreatitis, musculoskeletal, as well as other pathologies. Diagnostics interpreted by me: ECG: Twelve-lead ECG reveals normal sinus rhythm at [address] abnormality. No ST elevation or depression. No PACs or PVCs. Normal axis. Cardiac Monitoring: Cardiac monitoring ordered by me: The patient was placed on continuous cardiac monitoring and observed. It revealed a normal sinus rhythm at 83 beats per minute without ectopy or evidence of dysrhythmia. Imaging studies: Chest x-ray. Findings: A chest x-ray was performed and revealed no pneumothorax, effusion, infiltrate, pulmonary edema, free air under the diaphragm, or wide mediastinum. Impression: No acute disease. HPI: The patient is a 55 year old male who presents to the Emergency Room with complaints of chest pain. This started this morning and is substernal. The patient also notes the following associated symptoms, sacral wound, syncope x1. The patient has found no relieving factors. Current pain is rated as 10/10. Admits to drinking beer today. Called EMS. after their arrival he had a syncopal episode. Pt denies headache, fevers, chills, diaphoresis, visual changes, neck pain, breathing difficulties, nausea, vomiting, abdominal pain, back pain, melena, hematochezia, urinary symptoms, numbness, weakness, lymphadenopathy, rash, or other complaints. ROS: See above HPI for pertinent positives & negatives. A total of 10 systems reviewed and were otherwise negative. PAST MEDICAL HISTORY:See Below , ETOH abuse PAST SURGICAL HISTORY:See Below, FAMILY HISTORY:See Below SOCIAL HISTORY:See Below, +etoh HOME MEDICATIONS:See Below ALLERGIES:See Below VITALS:See Below PHYSICAL EXAMINATION: GENERAL: Awake, alert, uncomfortable-appearing, in no distress HENT: Normocephalic, atraumatic. Oropharynx unremarkable. EYES: Normal conjunctiva. Sclera non-icteric. NECK: Inspection normal. Non-tender. Supple. No nuchal rigidity. FROM. No masses. RESPIRATORY: Clear to auscultation. No wheezes. No rales. Normal respiratory effort. CARDIAC: Normal rate. Normal rhythm. No murmurs. No rubs. Extremities warm and well perfused. Pulses equal. No JVD. GI: Soft, distended. +fluid wave. Non tender umbilical and right inguinal hernia No tenderness to palpation. No rebound or guarding. No masses. RECTAL: Deferred. Sacral decubitus present no cellulitis. MUSCULOSKELETAL: Atraumatic. Chest examination reveals no tenderness. The back is symmetrical on inspection without obvious abnormality. There is no CVA tenderness to palpation. No joint edema. LOWER EXTREMITIES: Calves are equal size bilaterally and non-tender. 1+ edema. No discoloration. NEURO: Normal sensorium. No sensory or motor deficits noted. SKIN: No rash or jaundice noted. Sanket Reyes MD Past Med/Surg History Medical History (Updated 03/19/21 @ 17:54 by NIXON Gaffney) Alcohol dependence Alcoholic cirrhosis of liver with ascites Chronic anxiety Chronic obstructive pulmonary disease Chronic pancreatitis COVID-19 Esophageal varices History of pulmonary embolism Hypertension Hypothyroidism On home oxygen therapy Paroxysmal atrial fibrillation Portal hypertension Portal vein thrombosis Pulmonary embolism Pulmonary HTN Seizure Tobacco abuse Surgical History H/O colonoscopy History of cholecystectomy "2009" History of esophagogastroduodenoscopy (EGD) "12/15/2014- Small varices. Erosive duodenitis." 01/09/17 - esophageal varicies, gastritis Family History Mother Diabetes Father Coronary heart disease Social History Smoking Status: Current every day smoker Tobacco Type: Cigarettes Cigarettes Per Day: 4; Second Hand Exposure: No; Hx Alcohol Use: Yes Alcohol type: beer Alcohol Intake Frequency Comment: 4 32 oz [employer] daily Hx Substance Use: No Preferred Language: Indian Communication Ability: Effective Visual Impairment: No Limitations Globe Changer Required: No Beliefs That Will Affect Care: None marital status: Current Living Situation: Parent Current Living Situation Comment: parents Feels Safe at Home: Yes Assistive Devices: None Allergies Allergies Allergy/AdvReac Type Severity Reaction Status Date / Time fentanyl Allergy Intermediate RASH ALL Verified 03/19/21 15:45 OVER BODY Home Meds Home Medications Medication Instructions Recorded Confirmed No Known Home Medications 03/19/21 03/19/21 Results & Data (ED) Vital Signs Vital Signs - 24 hr 03/19/21 12:56 03/19/21 13:01 03/19/21 13:04 Temperature 36.5 C Temperature Source Oral Pulse Rate 87 80 Pulse Rate from SpO2 Sensor 80 Respiratory Rate 20 19 Respiratory Effort / Characteristics Non-Labored Respiratory Depth Normal Respiratory Pattern Regular Blood Pressure 132/87 122/77 Blood Pressure Mean 102 92 Blood Pressure Position Sitting Pulse Oximetry 98 97 98 Oxygen Delivery Method Room Air Room Air Room Air Sepsis Recent Fever Within 48 Hours No Sepsis New/Unexplained Change in Mental Status No Sepsis Action Taken by Nursing No Action Required 03/19/21 13:30 03/19/21 14:00 03/19/21 14:01 Temperature Temperature Source Pulse Rate 79 86 84 Pulse Rate from SpO2 Sensor 80 86 84 Respiratory Rate 17 14 16 Respiratory Effort / Characteristics Respiratory Depth Respiratory Pattern Blood Pressure 119/89 104/81 Blood Pressure Mean 99 88 Blood Pressure Position Pulse Oximetry 97 91 Oxygen Delivery Method Room Air Sepsis Recent Fever Within 48 Hours Sepsis New/Unexplained Change in Mental Status Sepsis Action Taken by Nursing 03/19/21 14:30 03/19/21 14:31 03/19/21 15:00 Temperature Temperature Source Pulse Rate 94 H 94 H 86 Pulse Rate from SpO2 Sensor 94 H 93 H 86 Respiratory Rate 23 23 14 Respiratory Effort / Characteristics Respiratory Depth Respiratory Pattern Blood Pressure 115/81 128/86 Blood Pressure Mean 92 100 Blood Pressure Position Pulse Oximetry 94 95 92 Oxygen Delivery Method Sepsis Recent Fever Within 48 Hours Sepsis New/Unexplained Change in Mental Status Sepsis Action Taken by Nursing 03/19/21 15:01 03/19/21 15:30 03/19/21 15:31 Temperature Temperature Source Pulse Rate 89 88 88 Pulse Rate from SpO2 Sensor 89 88 88 Respiratory Rate 14 13 16 Respiratory Effort / Characteristics Respiratory Depth Respiratory Pattern Blood Pressure 125/73 Blood Pressure Mean 90 Blood Pressure Position Pulse Oximetry 91 93 90 Oxygen Delivery Method Sepsis Recent Fever Within 48 Hours Sepsis New/Unexplained Change in Mental Status Sepsis Action Taken by Nursing 03/19/21 16:00 03/19/21 16:01 Temperature Temperature Source Pulse Rate 87 89 Pulse Rate from SpO2 Sensor 88 89 Respiratory Rate 16 15 Respiratory Effort / Characteristics Respiratory Depth Respiratory Pattern Blood Pressure 115/81 Blood Pressure Mean 92 Blood Pressure Position Pulse Oximetry 91 91 Oxygen Delivery Method Sepsis Recent Fever Within 48 Hours Sepsis New/Unexplained Change in Mental Status Sepsis Action Taken by Nursing Laboratory Data Result diagrams: 03/19/21 12:35 03/19/21 12:35 Lab Results 03/19/21 03/19/21 03/19/21 Range/Units 12:35 12:35 12:35 WBC 6.73 (4.8-10.8) K/uL RBC 3.10 L (4.7-6.1) M/uL Hgb 12.0 L (14.0-18.0) g/dL Hct 35.0 L (42-52) % MCV 112.9 H (80-100) fL MCH 38.7 H (25-34) pg MCHC 34.3 (32-36) g/dL RDW Std Deviation 62.7 H (36.4-46.3) fL RDW Coeff of Hernandez 15.5 H (11.5-14.5) % Plt Count 96 L (130-400) K/uL MPV 10.7 H (7.4-10.4) fL Immature Gran % (Auto) 0.3 % Neut % (Auto) 44.2 % Lymph % (Auto) 40.3 % Charlton % (Auto) 11.3 % Eos % (Auto) 2.7 % Baso % (Auto) 1.2 % Neut # (Auto) 2.98 (1.4-6.5) K/uL Lymph # (Auto) 2.71 (1.2-3.4) K/uL Charlton # (Auto) 0.76 H (0.11-0.59) K/uL Eos # (Auto) 0.18 (0-0.5) K/uL Baso # (Auto) 0.08 (0-0.2) K/uL Immature Gran # (Auto) 0.02 (0.00-0.02) K/uL Platelet Estimate Decreased L (Normal) Macrocytosis Present PT (9.0-12.0) Seconds INR (0.9-1.1) APTT 33.3 H (21.0-31.0) Seconds PTT Ratio 1.3 Sodium 140 (136-145) mmol/L Potassium 3.4 L (3.5-5.1) mmol/L Chloride 107 (98-107) mmol/L Carbon Dioxide 24 (21-32) mmol/L Anion Gap 8.0 (3-11) BUN 4 L (7-18) mg/dl Creatinine 0.69 (0.6-1.4) mg/dl Est Cr Clr Drug Dosing 104.0 ml/min Est GFR ( Amer) 123.0 ml/min Est GFR (Non-Af Amer) 106.1 ml/min BUN/Creatinine Ratio 5.5 L (10-20) Glucose 111 H (70-99) mg/dl Calcium 7.6 L (8.5-10.1) mg/dl Magnesium (1.8-2.4) mg/dl Total Bilirubin 4.5 H (0.2-1) mg/dl AST 91 H (15-37) U/L ALT 35 (12-78) U/L Alkaline Phosphatase 125 H (45-117) U/L Troponin I 0.027 (0-0.045) ng/ml Total Protein 7.9 (6.4-8.2) gm/dl Albumin 1.6 L (3.4-5.0) gm/dl Globulin 6.3 H (2.5-4.0) gm/dl Albumin/Globulin Ratio 0.3 L (0.9-2) Lipase 293 (73-393) U/L Urine Color Urine Appearance (Clear) Urine pH (4.5-7.5) Ur Specific Howard (1.000-1.030) Urine Protein (Negative) Urine Glucose (UA) (Negative) Urine Ketones (Negative) Urine Blood (Negative) Urine Nitrite (Negative) Urine Bilirubin (Negative) Urine Urobilinogen (Negative) Ur Leukocyte Esterase (Negative) Ethyl Alcohol mg/dL (0-3) mg/dl COVID-19 Eval Order SARS-CoV-2 (PCR) (Negative) 03/19/21 03/19/21 03/19/21 Range/Units 12:35 13:30 13:44 WBC (4.8-10.8) K/uL RBC (4.7-6.1) M/uL Hgb (14.0-18.0) g/dL Hct (42-52) % MCV (80-100) fL MCH (25-34) pg MCHC (32-36) g/dL RDW Std Deviation (36.4-46.3) fL RDW Coeff of Hernandez (11.5-14.5) % Plt Count (130-400) K/uL MPV (7.4-10.4) fL Immature Gran % (Auto) % Neut % (Auto) % Lymph % (Auto) % Charlton % (Auto) % Eos % (Auto) % Baso % (Auto) % Neut # (Auto) (1.4-6.5) K/uL Lymph # (Auto) (1.2-3.4) K/uL Charlton # (Auto) (0.11-0.59) K/uL Eos # (Auto) (0-0.5) K/uL Baso # (Auto) (0-0.2) K/uL Immature Gran # (Auto) (0.00-0.02) K/uL Platelet Estimate (Normal) Macrocytosis PT (9.0-12.0) Seconds INR (0.9-1.1) APTT (21.0-31.0) Seconds PTT Ratio Sodium (136-145) mmol/L Potassium (3.5-5.1) mmol/L Chloride (98-107) mmol/L Carbon Dioxide (21-32) mmol/L Anion Gap (3-11) BUN (7-18) mg/dl Creatinine (0.6-1.4) mg/dl Est Cr Clr Drug Dosing ml/min Est GFR ( Amer) ml/min Est GFR (Non-Af Amer) ml/min BUN/Creatinine Ratio (10-20) Glucose (70-99) mg/dl Calcium (8.5-10.1) mg/dl Magnesium 2.0 (1.8-2.4) mg/dl Total Bilirubin (0.2-1) mg/dl AST (15-37) U/L ALT (12-78) U/L Alkaline Phosphatase (45-117) U/L Troponin I (0-0.045) ng/ml Total Protein (6.4-8.2) gm/dl Albumin (3.4-5.0) gm/dl Globulin (2.5-4.0) gm/dl Albumin/Globulin Ratio (0.9-2) Lipase (73-393) U/L Urine Color Yellow Urine Appearance Clear (Clear) Urine pH 6.5 (4.5-7.5) Ur Specific Howard 1.005 (1.000-1.030) Urine Protein Negative (Negative) Urine Glucose (UA) Negative (Negative) Urine Ketones Negative (Negative) Urine Blood Negative (Negative) Urine Nitrite Negative (Negative) Urine Bilirubin Negative (Negative) Urine Urobilinogen Negative (Negative) Ur Leukocyte Esterase Negative (Negative) Ethyl Alcohol mg/dL 348.1 H (0-3) mg/dl COVID-19 Eval Order SARS-CoV-2 (PCR) (Negative) 03/19/21 03/19/21 03/19/21 Range/Units 15:47 15:49 15:49 WBC (4.8-10.8) K/uL RBC (4.7-6.1) M/uL Hgb (14.0-18.0) g/dL Hct (42-52) % MCV (80-100) fL MCH (25-34) pg MCHC (32-36) g/dL RDW Std Deviation (36.4-46.3) fL RDW Coeff of Hernandez (11.5-14.5) % Plt Count (130-400) K/uL MPV (7.4-10.4) fL Immature Gran % (Auto) % Neut % (Auto) % Lymph % (Auto) % Charlton % (Auto) % Eos % (Auto) % Baso % (Auto) % Neut # (Auto) (1.4-6.5) K/uL Lymph # (Auto) (1.2-3.4) K/uL Charlton # (Auto) (0.11-0.59) K/uL Eos # (Auto) (0-0.5) K/uL Baso # (Auto) (0-0.2) K/uL Immature Gran # (Auto) (0.00-0.02) K/uL Platelet Estimate (Normal) Macrocytosis PT 18.7 H (9.0-12.0) Seconds INR 1.9 H (0.9-1.1) APTT (21.0-31.0) Seconds PTT Ratio Sodium (136-145) mmol/L Potassium (3.5-5.1) mmol/L Chloride (98-107) mmol/L Carbon Dioxide (21-32) mmol/L Anion Gap (3-11) BUN (7-18) mg/dl Creatinine (0.6-1.4) mg/dl Est Cr Clr Drug Dosing ml/min Est GFR ( Amer) ml/min Est GFR (Non-Af Amer) ml/min BUN/Creatinine Ratio (10-20) Glucose (70-99) mg/dl Calcium (8.5-10.1) mg/dl Magnesium (1.8-2.4) mg/dl Total Bilirubin (0.2-1) mg/dl AST (15-37) U/L ALT (12-78) U/L Alkaline Phosphatase (45-117) U/L Troponin I (0-0.045) ng/ml Total Protein (6.4-8.2) gm/dl Albumin (3.4-5.0) gm/dl Globulin (2.5-4.0) gm/dl Albumin/Globulin Ratio (0.9-2) Lipase (73-393) U/L Urine Color Urine Appearance (Clear) Urine pH (4.5-7.5) Ur Specific Howard (1.000-1.030) Urine Protein (Negative) Urine Glucose (UA) (Negative) Urine Ketones (Negative) Urine Blood (Negative) Urine Nitrite (Negative) Urine Bilirubin (Negative) Urine Urobilinogen (Negative) Ur Leukocyte Esterase (Negative) Ethyl Alcohol mg/dL (0-3) mg/dl COVID-19 Eval Order Covid19 at [facility] SARS-CoV-2 (PCR) NEGATIVE (Negative) Administered Medications Sodium Chloride (Nss 1000ml) 1,000 mls @ 125 mls/hr IV .Q8H STA Stop: 03/19/21 21:03 Last Admin: 03/19/21 13:36 Dose: 125 mls/hr Documented by: [id number] Discontinued Medications Morphine Sulfate (Morphine Sulfate 2 Mg/Ml Carp) 2 mg IV NOW STA Stop: 03/19/21 13:05 Last Admin: 03/19/21 13:37 Dose: 2 mg Documented by: [id number] Imaging Data Radiologist's Impression: Chest X-Ray 03/19/21 13:04 XR chest 1V portable CLINICAL HISTORY: Atypical chest pain COMPARISON STUDY: 02/24/2021 FINDINGS: The heart is mildly enlarged there is enlargement central pulmonary arteries suggesting pulmonary arterial hypertension.[There is a left-sided thoracic inlet mass consistent with a thyroid goiter. There is no focal pulmonary consolidation. Slightly prominent basilar markings are likely atelectatic. There is mild mediastinal prominence. Trace pleural effusions are suspected IMPRESSION: 1. Left-sided thoracic inlet mass consistent with a thyroid goiter 2. Large central pulmonary arteries suggesting pulmonary to hypertension 2. Suspected trace pleural effusions 4. No evidence of focal pulmonary consolidation ACT 112: Negative or not required by law. Electronically signed by: Charlie Kumar M.D. 03/19/2021 2:04 PM Discharge Plan Visit Data Chief Complaint: Chest Pain Stated Complaint: CHEST PAIN ED Provider: Sanket Reyes Discharge Problem: Chest pain, Alcohol abuse, Sacral decubitus ulcer, Syncope Patient Disposition: Admitted As Inpatient Discharge Instructions Interventions: ED Discharge Assessment Last Done: 03/19/21 18:31
[2021-03-19 13:11] LABS: Mean Corpuscular Hemoglobin 38.7 pg (25-34); Mean Corpuscular Hgb Conc 34.3 g/dL (32-36); Mean Corpuscular Volume 112.9 fL (80-100); RDW Coefficient of Variation 15.5 % (11.5-14.5); RDW Standard Deviation 62.7 fL (36.4-46.3); White Blood Count 6.73 K/uL (4.8-10.8)
[2021-03-19 13:19] LABS: Albumin Level 1.6 gm/dl (3.4-5.0); BUN Creatinine Ratio 5.5 (10-20); Calcium 7.6 mg/dl (8.5-10.1); Est GFR (Non-African American) 106.1 ml/min; Potassium 3.4 mmol/L (3.5-5.1)
[2021-03-19 13:22] LABS: Partial Thromboplastin Ratio 1.3; Partial Thromboplastin Time 33.3 Seconds (21.0-31.0)
[2021-03-19 13:23] LABS: Albumin Globulin Ratio 0.3 (0.9-2); Bilirubin,Total 4.5 mg/dl (0.2-1); Globulin 6.3 gm/dl (2.5-4.0); Total Protein 7.9 gm/dl (6.4-8.2); Troponin I 0.027 ng/ml (0-0.045)
[2021-03-19 13:31] LABS: Mean Platelet Volume 10.7 fL (7.4-10.4); Platelet Count 96 K/uL (130-400)
[2021-03-19 13:42] LABS: Basophils # (auto) 0.08 K/uL (0-0.2); Basophils % (auto) 1.2 %; Eosinophils # (auto) 0.18 K/uL (0-0.5); Eosinophils % (auto) 2.7 %; Immature Granulocytes # (auto) 0.02 K/uL (0.00-0.02); Immature Granulocytes % (auto) 0.3 %; Lymphocytes # (auto) 2.71 K/uL (1.2-3.4); Lymphocytes % (auto) 40.3 %; Macrocytosis Present; Monocytes # (auto) 0.76 K/uL (0.11-0.59); Monocytes % (auto) 11.3 %; Neutrophils # (auto) 2.98 K/uL (1.4-6.5); Neutrophils % (auto) 44.2 %; Platelet Estimate Decreased (Normal)
[2021-03-19 13:45] LABS: Appearance Urine Clear (Clear); Bilirubin Urine Negative (Negative); Blood Urine Negative (Negative); Color Urine Yellow; Glucose Urine UA Negative (Negative); Ketones Urine Negative (Negative); Leukocyte Esterase Urine Negative (Negative); Nitrite Urine Negative (Negative); Protein Urine Negative (Negative); Specific Gravity Urine 1.005 (1.000-1.030); Urobilinogen Urine Negative (Negative); pH Urine 6.5 (4.5-7.5)
--- NOTE | 2021-03-19 14:05 | XRay Report ---
XR chest 1V portable CLINICAL HISTORY: Atypical chest pain COMPARISON STUDY: 02/24/2021 FINDINGS: The heart is mildly enlarged there is enlargement central pulmonary arteries suggesting pul monary arterial hypertension.[There is a left-sided thoracic inlet mass consistent with a thyroid goi ter. There is no focal pulmonary consolidation. Slightly prominent basilar markings are likely atelec tatic. There is mild mediastinal prominence. Trace pleural effusions are suspected IMPRESSION: 1. Left-sided thoracic inlet mass consistent with a thyroid goiter 2. Large central pulmonary arteries suggesting pulmonary to hypertension 2. Suspected trace pleural effusions 4. No evidence of focal pulmonary consolidation ACT 112: Negative or not required by law. Electronically signed by: Charlie Kumar M.D. 03/19/2021 2:04 PM
[2021-03-19 16:10] LABS: INR 1.9 (0.9-1.1); Prothrombin Time 18.7 Seconds (9.0-12.0)
--- NOTE | 2021-03-19 17:13 | CT Scan Report ---
CT SCAN OF THE ABDOMEN AND PELVIS WITHOUT CONTRAST CLINICAL HISTORY: Abdominal and perineal pain. COMPARISON STUDY: CT scan dated 12/30/2020 TECHNIQUE: CT scan of the abdomen and pelvis was performed from the lung bases to the proximal femurs . Images are reviewed in the axial, sagittal, and coronal planes. IV contrast was not administered fo r this examination. A dose lowering technique was utilized adhering to the principles of ALARA. CT DOSE: 594.98 mGy.cm FINDINGS: Lower chest: There is mild interlobular septal edema. There are basilar atelectatic changes. Liver: The liver has a cirrhotic morphology. There is hepatic steatosis. There is perihepatic ascites . There are esophageal varices. There are varices within the region of the gastrohepatic ligament. Gallbladder: Surgically absent Spleen: Normal in size and attenuation. Pancreas: No pancreatic masses are visualized in this noncontrast study. There are calcifications wit hin the pancreatic head, likely secondary to chronic pancreatitis Adrenal glands: Unremarkable. Kidneys: No renal, ureteral, or bladder calculi are visualized. Bowel: There are no transition zones indicate bowel obstruction. There is no evidence of acute divert iculitis. The appendix appears normal. There is mild colonic wall thickening a nonspecific finding wh ich may be secondary to hepatocellular disease. Peritoneum: There is moderate ascites which extends into a right inguinal canal and scrotum. Vasculature: There is no evidence of abdominal aortic aneurysm. There are multiple abdominal varices present. Adenopathy: None. Pelvic viscera: The bladder, and pelvic viscera are unremarkable. No perirectal abscess is visualized . Skeletal structures: There is an old left ischio pubic ring fracture. No destructive skeletal lesions are visualized. IMPRESSION: 1. Hepatic steatosis, hepatic cirrhosis, and evidence of portal hypertension with upper abdominal and paraesophageal varices 2. Persistent ascites with extension to the right inguinal canal and right scrotum. 3. No evidence of bowel obstruction. No evidence of free air. Normal appendix 4. Stable mild colonic wall thickening, likely secondary to hepatocellular disease 5. No perirectal abscess is visualized as was clinically queried ACT 112: Negative or not required by law. Electronically signed by: Charlie Kumar M.D. 03/19/2021 5:12 PM
--- NOTE | 2021-03-19 17:35 | History & Physical Report ---
Date of Service March 19, 2021 Assessment & Plan (1) Syncope: (2) Chest pain: -admit to tele -patient presenting from home after a syncopal event in the setting of heavy alcohol use, no seizure like activity reported -initial trop negative, EKG without acute ST changes -suspect chest pain is due to pressure from ascites -monitor on tele, continue to cycle cardiac enzymes (3) Alcoholic cirrhosis of liver with ascites: (4) Esophageal varices: -non compliant w/ Xifaxan -last paracentesis 12/30/20 for 3.1 L -do not suspect SBP -GI consult for possible paracentesis -alcohol withdrawal protocol with gabapentin, PRN Ativan -LFTs at baseline (5) Buttock wound: -CT abd/pelvis does not show sign of perirectal abscess -afebrile, no leukocytosis - hold on antibiotics -wound care consult (6) Paroxysmal atrial fibrillation: -noncompliant with atenolol - will resume while admitted -not a candidate for anticoagulation secondary to medical noncompliance (7) Multiple thyroid nodules: -Per last discharge summary: "Recently found to have marked bilateral lobe thyroid enlargeent by CT scan during an ER visit with several nodular densities of the supracalvicular and retroclavicular region concerning for neoplastic process. He was referred to ENT but has not been compliant with this." Workup is pending. (8) History of pulmonary embolism: -Not a candidate for anticoagulation secondary to history of medical noncompliance (9) Thrombocytopenia: (10) Coagulopathy: -Due to underlying liver disease -platelets at baseline -no signs of bleeding (11) DVT prophylaxis: -SCDs due to thrombocytopenia/coagulopathy History of Present Illness Chief Complaint: Syncope Primary Care Provider: Jean Dave MD 55-year-old male with PMH alcoholic cirrhosis with ascites and esophageal varices, medical noncompliance, COPD, paroxysmal atrial fibrillation, history of pulmonary embolism, and other problems listed below who presents to the ED for evaluation after syncopal event. Patient reports that he was at home talking with his family when he suddenly felt very lightheaded and then passed out. No seizure-like activity reported. EMS was called and patient was brought to the ED for further evaluation. Patient reports ongoing chest pain for the past 2 days. Pain is located over the lower left chest/ribs. Patient also reports increasing abdominal distention. Denies abdominal pain, vomiting, nausea. No fevers or chills. Denies urinary symptoms. Patient reports he continues to drink " a large amount" of alcohol every day. Reports drinking four 32 ounce beers before coming to the hospital today. Patient also reports a painful buttocks wound. Reports this has been spontaneously draining. In the ED, initial troponin is negative, EKG without acute ST changes. Labs unremarkable/at patient's baseline. Alcohol level 348. Patient was given IVF and IV morphine. Allergies Allergy/AdvReac Type Severity Reaction Status Date / Time fentanyl Allergy Intermediate RASH ALL Verified 03/19/21 15:45 OVER BODY Home Medications Medication Instructions Recorded Confirmed Type No Known Home Medications 03/19/21 03/19/21 History Past Med/Surg History Medical History Alcohol dependence Alcoholic cirrhosis of liver with ascites Chronic anxiety Chronic obstructive pulmonary disease Chronic pancreatitis COVID-19 Esophageal varices History of pulmonary embolism Hypertension Hypothyroidism On home oxygen therapy Paroxysmal atrial fibrillation Portal hypertension Portal vein thrombosis Pulmonary embolism Pulmonary HTN Seizure Tobacco abuse Surgical History H/O colonoscopy History of cholecystectomy "2009" History of esophagogastroduodenoscopy (EGD) "12/15/2014- Small varices. Erosive duodenitis." 01/09/17 - esophageal varicies, gastritis Family History Mother Diabetes Father Coronary heart disease Social History Smoking Status: Current every day smoker Tobacco Type: Cigarettes Cigarettes Per Day: 10; Second Hand Exposure: No; Do You Dip or Chew Tobacco: No; Tobacco Cessation Education Requested by Patient: No Hx Alcohol Use: Yes Alcohol type: beer Alcohol Intake Frequency Comment: 4 32 oz [employer] life daily Hx Substance Use: No Preferred Language: Singaporean Communication Ability: Effective Visual Impairment: No Limitations Finger Cobbler Required: No Beliefs That Will Affect Care: None marital status: Current Living Situation: Family Current Living Situation Comment: parents Other Information That Helps Us Care for You: No Feels Safe at Home: Yes Safety Concerns: Feels Safe At This Time Assistive Devices: Oxygen - Continuous Assistive Devices Comment: oxygen at night Review of Systems Review of Systems: ROS per HPI, all other systems reviewed and negative Physical Exam Constitutional: WD/WN, vitals as above Eyes: PERRL, conjunctivae normal, anicteric sclerae ENMT: external ear and nose normal, oropharynx normal Respiratory: normal respiratory effort, lungs clear to auscultation Cardiovascular: Rate/Rhythm: regular rate and regular rhythm Vessels: normal peripheral pulses Extremities: no edema Gastrointestinal (Abdomen): normal bowel sounds, soft, nontender, no hepatosplenomegaly Inspection/Auscultation: + abdomen distended Percussion/Palpation: + ascites Musculoskeletal: no cyanosis or clubbing, extremities motor strength 5/5 Skin: no rashes, warm and dry + wound (open wound noted above anus w/ some purulent drainage, tender to touch ) Neurologic: PERRL, EOMI, accommodation nl, no face palsy, no dysarthria Psychiatric: A+Ox3, euthymic affect Results & Data Results & Data ([facility]) Vital Signs (Past 12 Hours) Vital Signs Temp Pulse Resp BP Pulse Ox 03/19/21 17:00 83 20 03/19/21 16:31 87 18 96 03/19/21 16:30 86 126/83 96 03/19/21 16:01 89 15 91 03/19/21 16:00 87 16 115/81 91 03/19/21 15:31 88 16 90 03/19/21 15:30 88 13 125/73 93 03/19/21 15:01 89 14 91 03/19/21 15:00 86 14 128/86 92 03/19/21 14:31 94 H 23 95 03/19/21 14:30 94 H 23 115/81 94 03/19/21 14:01 84 16 03/19/21 14:00 86 14 104/81 91 03/19/21 13:30 79 17 119/89 97 03/19/21 13:04 98 03/19/21 13:01 80 19 122/77 97 03/19/21 12:56 36.5 C 87 20 132/87 98 Laboratory Results Short CBC 03/19/21 Range/Units 12:35 WBC 6.73 (4.8-10.8) K/uL Hgb 12.0 L (14.0-18.0) g/dL Hct 35.0 L (42-52) % Plt Count 96 L (130-400) K/uL BMP 03/19/21 12:35 Sodium 140 Potassium 3.4 L Chloride 107 Carbon Dioxide 24 BUN 4 L Creatinine 0.69 Glucose 111 H Calcium 7.6 L Cardiac Enzymes 03/19/21 Range/Units 12:35 Troponin I 0.027 (0-0.045) ng/ml Liver Function 03/19/21 Range/Units 12:35 Total Bilirubin 4.5 H (0.2-1) mg/dl AST 91 H (15-37) U/L ALT 35 (12-78) U/L Alkaline Phosphatase 125 H (45-117) U/L Albumin 1.6 L (3.4-5.0) gm/dl Urine 03/19/21 Range/Units 13:30 Urine Color Yellow Urine Appearance Clear (Clear) Urine pH 6.5 (4.5-7.5) Ur Specific [place] 1.005 (1.000-1.030) Urine Protein Negative (Negative) Urine Glucose (UA) Negative (Negative) Diagnostic Findings Chest X-Ray 03/19/21 13:04 XR chest 1V portable CLINICAL HISTORY: Atypical chest pain COMPARISON STUDY: 02/24/2021 FINDINGS: The heart is mildly enlarged there is enlargement central pulmonary arteries suggesting pulmonary arterial hypertension.[There is a left-sided thoracic inlet mass consistent with a thyroid goiter. There is no focal pulmonary consolidation. Slightly prominent basilar markings are likely atelectatic. There is mild mediastinal prominence. Trace pleural effusions are suspected IMPRESSION: 1. Left-sided thoracic inlet mass consistent with a thyroid goiter 2. Large central pulmonary arteries suggesting pulmonary to hypertension 2. Suspected trace pleural effusions 4. No evidence of focal pulmonary consolidation ACT 112: Negative or not required by law. Electronically signed by: Charlie Kumar M.D. 03/19/2021 2:04 PM Abdomen/Pelvis CT 03/19/21 16:27 CT SCAN OF THE ABDOMEN AND PELVIS WITHOUT CONTRAST CLINICAL HISTORY: Abdominal and perineal pain. COMPARISON STUDY: CT scan dated 12/30/2020 TECHNIQUE: CT scan of the abdomen and pelvis was performed from the lung bases to the proximal femurs. Images are reviewed in the axial, sagittal, and coronal planes. IV contrast was not administered for this examination. A dose lowering technique was utilized adhering to the principles of ALARA. CT DOSE: 594.98 mGy.cm FINDINGS: Lower chest: There is mild interlobular septal edema. There are basilar atelecta tic changes. Liver: The liver has a cirrhotic morphology. There is hepatic steatosis. There is perihepatic ascites. There are esophageal varices. There are varices within the region of the gastrohepatic ligament. Gallbladder: Surgically absent Spleen: Normal in size and attenuation. Pancreas: No pancreatic masses are visualized in this noncontrast study. There are calcifications within the pancreatic head, likely secondary to chronic pancreatitis Adrenal glands: Unremarkable. Kidneys: No renal, ureteral, or bladder calculi are visualized. Bowel: There are no transition zones indicate bowel obstruction. There is no evidence of acute diverticulitis. The appendix appears normal. There is mild colonic wall thickening a nonspecific finding which may be secondary to hepatocellular disease. Peritoneum: There is moderate ascites which extends into a right inguinal canal and scrotum. Vasculature: There is no evidence of abdominal aortic aneurysm. There are multiple abdominal varices present. Adenopathy: None. Pelvic viscera: The bladder, and pelvic viscera are unremarkable. No perirectal abscess is visualized. Skeletal structures: There is an old left ischio pubic ring fracture. No destructive skeletal lesions are visualized. IMPRESSION: 1. Hepatic steatosis, hepatic cirrhosis, and evidence of portal hypertension with upper abdominal and paraesophageal varices 2. Persistent ascites with extension to the right inguinal canal and right scrotum. 3. No evidence of bowel obstruction. No evidence of free air. Normal appendix 4. Stable mild colonic wall thickening, likely secondary to hepatocellular disease 5. No perirectal abscess is visualized as was clinically queried ACT 112: Negative or not required by law. Electronically signed by: Charlie Kumar M.D. 03/19/2021 5:12 PM Code Status & VTE Plan Code Status Patient is a full code as per my discussion with him. VTE Prophylaxis Plan VTE Prophylaxis will be ordered: Yes Supervising Physician Co-Signing Physician Notes Attending addendum: The patient was seen and examined multisystem There is a normocephalic and collapse following about 4 alcoholic drinks Has been feeling much better since in the emergency room Denies any symptoms except some abdominal pain On examination Lying in bed without much distress Hemodynamically stable Chestclear to auscultate bilaterally HeartS1, S2, no murmur appreciated Abdomendistended, soft, small medical hernia, moderate ascites, bowel sounds present Extremities1+ edema bilaterally His admission labs, creatinine and imaging studies Awaiting CT of the abdomen pelvis for further evaluation of ascites and abdominal pain Syncopal episode following alcoholic binge Has significant ascites without any suspicion for infection Chest pain is nonspecific with ACS Abnormal liver function tests seems to be chronic Agree with assessment and plan as outlined above by NIXON Gaffney DR (1) Esophageal varices Esophageal varices type: unspecified type
[2021-03-19] MEDS ORDERED: GABAPENTIN 1200MG ALCOHOL WITHDRAWAL LOAD PO STA (19:36)
[2021-03-19] MEDS ORDERED: ATIVAN IV ALCOHOL WITHDRAWL IV PRN (19:36)
[2021-03-19] MEDS ORDERED: POTASSIUM CHLORIDE CRTAB 20 MEQ TABCR PO STA (19:44)
[2021-03-19] MEDS ORDERED: GABAPENTIN 600 MG TAB PO ONE (20:00)
[2021-03-19] MEDS ORDERED: MULTI-VITAMIN INFUSION 10 ML, THIAMINE HCL 100 MG, FOLIC ACID 1 MG in SODIUM CHLORIDE 0... IV ONE (20:00)
[2021-03-19] MEDS ORDERED: PNEUMOCOCCAL POLYSACCHARIDES 25 MCG/0.5 ML VIAL/SYR IM ONE (20:02)
[2021-03-19] MEDS ORDERED: oxyCODONE HCL IR 5 MG TAB (IMMEDIATE RELEASE) PO STA (20:51)
[2021-03-19] MEDS: FOLIC ACID 1 MG TAB PO SCH (20:56)
[2021-03-19] MEDS: THIAMINE HCL 100 MG TAB PO SCH (20:56)
[2021-03-19] MEDS ORDERED: METOPROLOL TARTRATE 1 MG/ML VIAL IV PRN (21:20)
[2021-03-20] MEDS ORDERED: LORazepam 0.5 MG TAB PO STA (00:27)
[2021-03-20] MEDS: GABAPENTIN 600 MG TAB PO SCH ×3 (06:03→21:14)
[2021-03-20] MEDS: oxyCODONE HCL IR 5 MG TAB (IMMEDIATE RELEASE) PO PRN ×4 (06:06→21:11)
[2021-03-20 06:45] LABS: Albumin Level 1.3 gm/dl (3.4-5.0); BUN Creatinine Ratio 6.9 (10-20); Calcium 7.1 mg/dl (8.5-10.1); Creatinine Clr Calc Pharmacy 132.2 ml/min; Est GFR (African American) 131.2 ml/min; Est GFR (Non-African American) 113.2 ml/min; Potassium 3.7 mmol/L (3.5-5.1)
[2021-03-20 06:54] LABS: Albumin Globulin Ratio 0.2 (0.9-2); Bilirubin,Total 5.2 mg/dl (0.2-1); Globulin 5.4 gm/dl (2.5-4.0); Total Protein 6.7 gm/dl (6.4-8.2)
[2021-03-20] MEDS: THIAMINE HCL 100 MG TAB PO SCH (08:20)
[2021-03-20] MEDS: FOLIC ACID 1 MG TAB PO SCH (08:20)
[2021-03-20] MEDS: ATENOLOL 25 MG TABLET PO SCH (08:20)
--- NOTE | 2021-03-20 09:19 | Electrocardiogram Report ---
Test Reason : Blood Pressure : / mmHG Vent. Rate : 088 BPM Atrial Rate : 088 BPM P-R Int : 120 ms QRS Dur : 092 ms QT Int : 390 ms P-R-T Axes : 075 078 062 degrees QTc Int : 471 ms Normal sinus rhythm Nonspecific ST and T wave abnormality Abnormal ECG When compared with ECG of 12-FEB-2021 22:43, Nonspecific T wave abnormality now evident in Lateral leads Confirmed by Gerson Forrest ([id number]) on 03/20/2021 9:19:27 AM Referred By: REFERRED SELF Confirmed By:Gerson Forrest
--- NOTE | 2021-03-20 09:38 | Gastrointestinal Consultation ---
Date of Consultation March 20, 2021 Assessment & Plan (1) Alcohol abuse: (2) Alcoholic cirrhosis of liver with ascites: (3) Medical non-compliance: Recommend US guided paracentesis with fluid studies to r/o SBP Recommend daily MELD labs Xifaxan 550 mg by mouth twice daily Lactulose 30 ml PO every 6 hours to ensure 2-3 BM's per day Recommend Low sodium diet, less than 2 g daily Resume Lasix/aldactone as per outpatient GI team Management of alcohol withdrawal as per primary team. Could consider 3 beers per day, while admitted, as patient has no desire to stop drinking, and this is much more cost effective than alcohol withdrawal protocol. Recommend discharging patient as soon as medically stable to avoid DT's while he is an inpatient. History of Present Illness Reason for Consultation: Ascites Attending Physician: Joseluis Mike MD History of Present Illness Mr. Martin is a 55 yo CM with alcohol induced cirrhosis and medical non- compliance who presented to the ER with chest pain. He underwent an extensive workup in the ER, and was not found to have any evidence of acute coronary issues. He was noted to have multiple electrolyte abnormalities, as well as ascites. A CT scan of the Abd/pelvis in the ER was negative for acute findings, and he was subsequently admitted. At the time I saw the patient, he was complaining of not receiving pain medications. He admitted that he had stopped all of his medications. He states that he drinks 3-4 beers per day, but has previously had DT's when admitted to [facility]. He continues to complain of chest pain and abdominal pain, but cannot quantify it, or localize it, and asks for pain medication to help control this now. He has no further complaints. Allergies Allergy/AdvReac Type Severity Reaction Status Date / Time fentanyl Allergy Intermediate RASH ALL Verified 03/19/21 15:45 OVER BODY Home Medications Medication Instructions Recorded Confirmed Type No Known Home Medications 03/19/21 03/19/21 History Patient History Medical History Alcohol dependence Alcoholic cirrhosis of liver with ascites Chronic anxiety Chronic obstructive pulmonary disease Chronic pancreatitis COVID-19 Esophageal varices History of pulmonary embolism Hypertension Hypothyroidism On home oxygen therapy Paroxysmal atrial fibrillation Portal hypertension Portal vein thrombosis Pulmonary embolism Pulmonary HTN Seizure Tobacco abuse Surgical History H/O colonoscopy History of cholecystectomy "2009" History of esophagogastroduodenoscopy (EGD) "12/15/2014- Small varices. Erosive duodenitis." 01/09/17 - esophageal varicies, gastritis Family History Mother Diabetes Father Coronary heart disease Social History Smoking Status: Current every day smoker Tobacco Type: Cigarettes Cigarettes Per Day: 10; Second Hand Exposure: No; Do You Dip or Chew Tobacco: No; Tobacco Cessation Education Requested by Patient: No Hx Alcohol Use: Yes Alcohol type: beer Alcohol Intake Frequency Comment: 4 32 oz [email or web address] daily Hx Substance Use: No Preferred Language: Serbian Communication Ability: Effective Visual Impairment: No Limitations Caustic Loader Required: No Beliefs That Will Affect Care: None marital status: Current Living Situation: Family Current Living Situation Comment: parents Other Information That Helps Us Care for You: No Feels Safe at Home: Yes Safety Concerns: Feels Safe At This Time Assistive Devices: Oxygen - Continuous Assistive Devices Comment: oxygen at night Review of Systems Review of Systems: All systems reviewed & are unremarkable except as noted in Subjective Physical Exam Constitutional: + ill appearing (chronic) and + frail appearing Eyes: sclerae not anicteric ENMT: Ears: no hearing impairment Neck: normal visual inspection Respiratory: normal respiratory effort, lungs clear to auscultation Cardiovascular: Rate/Rhythm: + irregularly irregular Gastrointestinal (Abdomen): Inspection/Auscultation: abdomen normal to inspection, + abdomen distended (Positive fluid wave) and normal bowel sounds Percussion/Palpation: + abdomen tender, abdomen soft and + hernia (umbilical, reducible); no guarding and abdomen not rigid Results & Data ([facility]) Vital Signs (Past 12 Hours) Vital Signs Temp Pulse Pulse Resp BP Pulse Ox Pulse Ox 03/20/21 09:24 84 03/20/21 08:22 95 03/20/21 07:55 36.5 C 94 H 18 104/66 90 03/20/21 04:07 36.8 C 86 20 109/71 91 03/19/21 23:43 36.6 C 88 14 83/60 L 93 03/19/21 22:25 130 H PG Care Time/CCT Total # of Minutes Spent Total Time Spent with Patient: Total time spent is greater than 50% in coordination of care (as documented) at patient's floor/unit and/or counseling patient: Coding Level of Care Code 28953 Initial Inpt Care Lvl 3 Diagnoses Alcohol abuse F10.10 Alcoholic cirrhosis of liver with ascites K70.31 Medical non-compliance Z91.19
--- NOTE | 2021-03-20 10:11 | Electrocardiogram Report ---
Test Reason : Blood Pressure : / mmHG Vent. Rate : 089 BPM Atrial Rate : 089 BPM P-R Int : 146 ms QRS Dur : 088 ms QT Int : 394 ms P-R-T Axes : 043 077 004 degrees QTc Int : 479 ms Normal sinus rhythm Nonspecific ST and T wave abnormality Prolonged QT Abnormal ECG When compared with ECG of 19-MAR-2021 12:49, (unconfirmed) No significant change was found Confirmed by Gerson Forrest ([id number]) on 03/20/2021 10:10:45 AM Referred By: REFERRED SELF Confirmed By:Gerson Forrest
--- NOTE | 2021-03-20 11:43 | Hospitalist Progress Note ---
Date of Service March 20, 2021 Assessment & Plan (1) Syncope: Following an alcoholic binge No significant injury Doubt any arrhythmias (2) Chest pain: -admit to tele -patient presenting from home after a syncopal event in the setting of heavy alcohol use, no seizure like activity reported -initial trop negative, EKG without acute ST changes -suspect chest pain is due to pressure from ascites -monitor on tele, continue to cycle cardiac enzymes -been negative for ACS (3) Alcoholic cirrhosis of liver with ascites: Has been very noncompliant Appreciate GI input and recommendation He was on Xifaxan and lactulose and probably on Lasix and Aldactone as an outpatient Being very noncompliant he has not been taking any of those and are not in the med list Will start rifaximin 550 mg twice daily, lactulose 30 g 4 times daily, Lasix 40 mg daily and Aldactone 25 mg daily Will have paracentesis likely tomorrow Has been on gabapentin withdrawal protocol Has significant ascites Will have diagnostic and therapeutic paracentesis under ultrasound-guided tomorrow (4) Esophageal varices: -non compliant w/ Xifaxan -last paracentesis 12/30/20 for 3.1 L -do not suspect SBP -GI consult for possible paracentesis -alcohol withdrawal protocol with gabapentin, PRN Ativan -LFTs at baseline (5) Buttock wound: -CT abd/pelvis does not show sign of perirectal abscess -afebrile, no leukocytosis - hold on antibiotics -wound care consult (6) Paroxysmal atrial fibrillation: -noncompliant with atenolol - will resume while admitted -not a candidate for anticoagulation secondary to medical noncompliance -Remains in sinus rhythm (7) Multiple thyroid nodules: -Per last discharge summary: "Recently found to have marked bilateral lobe thyroid enlargeent by CT scan during an ER visit with several nodular densities of the supracalvicular and retroclavicular region concerning for neoplastic process. He was referred to ENT but has not been compliant with this." Workup is pending. (8) History of pulmonary embolism: -Not a candidate for anticoagulation secondary to history of medical noncompliance (9) Thrombocytopenia: (10) Coagulopathy: -Due to underlying liver disease -platelets at baseline -no signs of bleeding (11) DVT prophylaxis: -SCDs due to thrombocytopenia/coagulopathy Admission and Anticipated Discharge Date Admission Date: March 19, 2021 Subjective 03/20/2021 The patient was seen and examined in telemetry unit He has been feeling much better but complains to have weakness and tiredness Minimal abdominal discomfort without any nausea and/or vomiting He does not have significant withdrawal symptoms Review of Systems Review of Systems: All systems reviewed and are unremarkable except as noted below Gastrointestinal: + bloating and + cramping; no nausea and no vomiting Neurologic: + generalized weakness Physical Exam Physical Exam: Lying in bed comfortably Constitutional: + ill appearing and average body habitus Eyes: PERRL, conjunctivae normal, anicteric sclerae ENMT: external ear and nose normal, oropharynx normal Neck: trachea midline, no thyromegaly Respiratory: no respiratory distress Auscultation: lungs clear to auscultation bilaterally Cardiovascular: Rate/Rhythm: regular rate and regular rhythm Heart Sounds: no murmur Extremities: + edema (1+ edema bilaterally) Gastrointestinal (Abdomen): Inspection/Auscultation: + abdomen distended; + abnormal bowel sounds (Decreased) Percussion/Palpation: + abdomen tender (Mildly tender all over), abdomen soft and + hernia (Small umbilical hernia); no guarding Has small umbilical hernia Skin: Has buttock wound but no perirectal abscess Neurologic: Alert and awake. Generally weak Lymphatic: no cervical or axillary lymphadenopathy Results & Data Results & Data ([facility]) Vital Signs (Past 12 Hours) Vital Signs Temp Pulse Pulse Resp BP Pulse Ox Pulse Ox 03/20/21 11:12 36.4 C L 86 18 118/72 95 03/20/21 09:24 84 03/20/21 08:22 95 03/20/21 07:55 36.5 C 94 H 18 104/66 90 03/20/21 04:07 36.8 C 86 20 109/71 91 03/19/21 23:43 36.6 C 88 14 83/60 L 93 (1) Esophageal varices Esophageal varices type: unspecified type
[2021-03-20] MEDS: FUROSEMIDE 40 MG TAB PO SCH (12:49)
[2021-03-20] MEDS: SPIRONOLACTONE 25 MG TAB PO SCH (12:49)
[2021-03-20] MEDS: LACTULOSE SYRUP 30 GM/45 ML UDP PO SCH ×3 (12:49→21:17)
[2021-03-20] MEDS: rifAXIMin 550 MG TABLET PO SCH ×2 (12:49→21:14)
[2021-03-21] MEDS ORDERED: ZOLPIDEM TARTRATE 5 MG TAB PO STA (00:14)
[2021-03-21] MEDS: oxyCODONE HCL IR 5 MG TAB (IMMEDIATE RELEASE) PO PRN (03:07)
[2021-03-21] MEDS: GABAPENTIN 600 MG TAB PO SCH ×3 (05:58→22:41)
[2021-03-21 07:26] LABS: Albumin Level 1.6 gm/dl (3.4-5.0); Bilirubin,Total 6.6 mg/dl (0.2-1); Total Protein 7.4 gm/dl (6.4-8.2)
[2021-03-21] MEDS: SPIRONOLACTONE 25 MG TAB PO SCH (07:50)
[2021-03-21] MEDS: FUROSEMIDE 40 MG TAB PO SCH (07:50)
[2021-03-21] MEDS: FOLIC ACID 1 MG TAB PO SCH (07:51)
[2021-03-21] MEDS: rifAXIMin 550 MG TABLET PO SCH ×2 (07:51→20:40)
[2021-03-21] MEDS: ATENOLOL 25 MG TABLET PO SCH (07:51)
[2021-03-21] MEDS: LACTULOSE SYRUP 30 GM/45 ML UDP PO SCH ×4 (07:51→20:40)
[2021-03-21] MEDS: THIAMINE HCL 100 MG TAB PO SCH (07:51)
[2021-03-21 08:36] LABS: Hematocrit (blood only) 31.4 % (42-52); Hemoglobin 10.5 g/dL (14.0-18.0); Mean Corpuscular Hemoglobin 38.7 pg (25-34); Mean Corpuscular Hgb Conc 33.4 g/dL (32-36); Mean Corpuscular Volume 115.9 fL (80-100); RDW Coefficient of Variation 15.6 % (11.5-14.5); RDW Standard Deviation 65.7 fL (36.4-46.3); Red Blood Count 2.71 M/uL (4.7-6.1); White Blood Count 6.92 K/uL (4.8-10.8)
[2021-03-21 08:40] LABS: Basophils # (auto) 0.08 K/uL (0-0.2); Basophils % (auto) 1.2 %; Eosinophils # (auto) 0.32 K/uL (0-0.5); Eosinophils % (auto) 4.6 %; Immature Granulocytes # (auto) 0.03 K/uL (0.00-0.02); Immature Granulocytes % (auto) 0.4 %; Lymphocytes # (auto) 1.59 K/uL (1.2-3.4); Monocytes # (auto) 1.05 K/uL (0.11-0.59); Monocytes % (auto) 15.2 %; Neutrophils # (auto) 3.85 K/uL (1.4-6.5); Neutrophils % (auto) 55.6 %; Platelet Count 79 K/uL (130-400)
[2021-03-21 09:04] LABS: Macrocytosis Present
[2021-03-21 09:14] LABS: Albumin Level 1.6 gm/dl (3.4-5.0); BUN Creatinine Ratio 5.7 (10-20); Calcium 7.1 mg/dl (8.5-10.1); Creatinine Clr Calc Pharmacy 84.4 ml/min; Est GFR (African American) 112.9 ml/min; Est GFR (Non-African American) 97.4 ml/min; Magnesium 1.6 mg/dl (1.8-2.4); Potassium 3.3 mmol/L (3.5-5.1)
--- NOTE | 2021-03-21 09:21 | Gastroenterology Progress Note ---
Date of Service March 21, 2021 Assessment & Plan (1) Medical non-compliance: (2) Alcoholic cirrhosis of liver with ascites: -US guided paracentesis with fluid studies to r/o SBP; This was ordered for today, but patient did just finish a tray of breakfast prior to my visit. -Daily PT/INR, CMP to calculate MELD score; Current MELD is 21 which would warrant hepatology evaluation, however patient may not be compliant with this recommendation. -Xifaxan 550 mg BID and Lactulose 30 mL po q 6 hours with target of 3 BMs daily to prevent hepatic encephalopathy. -2 gm Na restricted diet -Lasix 40 mg daily & Aldactone 25 mg is ordered at present; If able to tolerate, would aim to increase the Aldactone dosage. -Agree with Dr. Guerrero--if patient has no desire to stop drinking, discharging as soon as medically stable to avoid DTs is imperative. Admission and Anticipated Discharge Date Admission Date: March 19, 2021 Supervising Physician Co-Signing Physician Notes Agree with SADI [place] as above Gen: Awake, confused Abd: Soft, NT, ND, +BS Continue current therapy and supportive care as above Subjective Patient is a 55 yo male with alcoholic cirrhosis who is hospitalized with alcoholic cirrhosis complicated by medical non-compliance. The patient denies abdominal pain at present. He is awaiting a paracentesis for his abdominal ascites. He is currently being managed for potential alcohol withdrawal. Of note, patient expresses that he does not wish to stop drinking alcohol. He reports he has moved his bowels 4+ times in the past 24 hours. He is currently prescribed Xifaxan 550 mg BID, Lactulose 30 gm q 6 hrs, Lasix 40 mg daily, & Aldactone 25 mg daily. He is not complaining of the same chest/abdominal pain that he previously had reported. MELD score 21. Review of Systems Constitutional: no fever and no chills Respiratory: no cough and no dyspnea Cardiovascular: no chest pain Gastrointestinal: + diarrhea/loose stools; no abdominal pain, no constipation and no blood in stools Physical Exam Constitutional: well developed Respiratory: normal respiratory effort Cardiovascular: Extremities: no edema Gastrointestinal (Abdomen): Inspection/Auscultation: abdomen normal to inspection Musculoskeletal: Head/Neck/Chest: normocephalic Psychiatric: Orientation: alert, oriented to person and oriented to place (easily confused) Results & Data Results & Data ([facility]) Vital Signs (Past 12 Hours) Vital Signs Temp Pulse Pulse Resp BP Pulse Ox 03/21/21 07:47 36.8 C 88 18 119/71 98 03/21/21 03:40 36.7 C 85 19 113/83 96 03/21/21 01:51 88 03/20/21 23:43 36.7 C 84 19 119/76 97 PG Care Time/CCT Total # of Minutes Spent Total Time Spent with Patient: Total time spent is greater than 50% in coordination of care (as documented) at patient's floor/unit and/or counseling patient: Coding Level of Care Code 39440 Subseq Hosp Care Lvl 3 Diagnoses Medical non-compliance Z91.19 Alcoholic cirrhosis of liver with ascites K70.31
[2021-03-21 09:22] LABS: Albumin Globulin Ratio 0.3 (0.9-2); Bilirubin,Total 7.5 mg/dl (0.2-1); Globulin 6.1 gm/dl (2.5-4.0); Phosphorus 2.5 mg/dl (2.5-4.9); Total Protein 7.7 gm/dl (6.4-8.2)
--- NOTE | 2021-03-21 10:31 | Ultrasound Report ---
PARACENTESIS UNDER ULTRASOUND GUIDANCE CLINICAL HISTORY: Abdominal ascites COMPARISON STUDY: Abdominal CT dated 03/19/2021. PROCEDURE: The risks, benefits, and alternatives to the procedure were discussed with the patient who voiced understanding. Written informed consent was obtained. Following real-time ultrasound localiza tion of a suitable pocket of fluid in the right lower quadrant, the abdomen was prepped and draped in the usual sterile fashion. The skin and soft tissues were anesthetized with 1% lidocaine. The sheath ed paracentesis needle was inserted and approximately 4 liters of straw-colored ascitic fluid was rem brianna by vacuum suction. The procedure was well tolerated and without immediate complication. The mariana ent left the department in satisfactory condition. IMPRESSION: Successful ultrasound-guided paracentesis with removal of approximately 4 liters of ascit ic fluid. ACT 112: Negative or not required by law. Electronically signed by: Salazar Segura M.D. 03/21/2021 10:30 AM
[2021-03-21 11:33] LABS: Albumin Peritoneal Fluid < 0.6 g/dl; LDH Peritoneal Fluid 74 U/L
[2021-03-21 12:03] LABS: Appearance Peritoneal Fluid CLEAR; Basophils, Fluid 1 %; Color Peritoneal Fluid YELLOW; Eosinophils, Fluid 1 %; Lymphocytes, Fluid 67 %; Mono,Macrophage,Mesothelial 16 %; Neutrophils, Fluid 15 %; RBC Peritoneal Fluid (A) < 3000 /uL; WBC Peritoneal Fluid (A) 152 /ul (0-300)
--- NOTE | 2021-03-21 12:42 | Electrocardiogram Report ---
Test Reason : Blood Pressure : / mmHG Vent. Rate : 085 BPM Atrial Rate : 085 BPM P-R Int : 132 ms QRS Dur : 086 ms QT Int : 346 ms P-R-T Axes : 022 068 010 degrees QTc Int : 411 ms Normal sinus rhythm Nonspecific ST and T wave abnormality Abnormal ECG When compared with ECG of 20-MAR-2021 05:40, Nonspecific T wave abnormality, worse in Lateral leads QT has shortened Confirmed by Clement Ceballos ([id number]) on 03/21/2021 12:41:46 PM Referred By: REFERRED SELF Confirmed By:Brady Ceballos
--- NOTE | 2021-03-21 14:24 | Hospitalist Progress Note ---
Date of Service March 21, 2021 Assessment & Plan (1) Syncope: Following an alcoholic binge No significant injury Doubt any arrhythmias (2) Chest pain: -patient presenting from home after a syncopal event in the setting of heavy alcohol use, no seizure like activity reported -initial trop negative, EKG without acute ST changes -suspect chest pain is due to pressure from ascites -monitor on tele, continue to cycle cardiac enzymes -been negative for ACS -No more cardiac symptoms (3) Alcoholic cirrhosis of liver with ascites: Has been very noncompliant Appreciate GI input and recommendation He was on Xifaxan and lactulose and probably on Lasix and Aldactone as an outpatient Being very noncompliant he has not been taking any of those and are not in the med list Will start rifaximin 550 mg twice daily, lactulose 30 g 4 times daily, Lasix 40 mg daily and Aldactone 25 mg daily We will continue current medications He is meld score is 21 We will attempt to increase the dose of Aldactone Has significant ascites Will have diagnostic and therapeutic paracentesis under ultrasound-guided tomorrow Has had 4 L paracentesis today-acetic fluid does not show any infection Has been feeling better (4) Esophageal varices: -non compliant w/ Xifaxan -last paracentesis 12/30/20 for 3.1 L -do not suspect SBP -GI consult for possible paracentesis -alcohol withdrawal protocol with gabapentin, PRN Ativan -LFTs at baseline (5) Buttock wound: -CT abd/pelvis does not show sign of perirectal abscess -afebrile, no leukocytosis - hold on antibiotics -wound care consult -Pressure ulcer of sacral region, stage 3 POA -Appreciate wound care management (6) Paroxysmal atrial fibrillation: -noncompliant with atenolol - will resume while admitted -not a candidate for anticoagulation secondary to medical noncompliance -Remains in sinus rhythm (7) Multiple thyroid nodules: -Per last discharge summary: "Recently found to have marked bilateral lobe thyroid enlargeent by CT scan during an ER visit with several nodular densities of the supracalvicular and retroclavicular region concerning for neoplastic process. He was referred to ENT but has not been compliant with this." Workup is pending. (8) History of pulmonary embolism: -Not a candidate for anticoagulation secondary to history of medical noncompliance (9) Thrombocytopenia: (10) Coagulopathy: -Due to underlying liver disease -platelets at baseline -no signs of bleeding (11) DVT prophylaxis: -SCDs due to thrombocytopenia/coagulopathy Admission and Anticipated Discharge Date Admission Date: March 19, 2021 Subjective 03/21/2021 The patient was seen and examined in telemetry unit He has been feeling much better but remains generally weak Minimal complaints of abdominal discomfort but no definite pain No fever and/or chills Review of Systems Review of Systems: All systems reviewed and are unremarkable except as noted below Gastrointestinal: + bloating and + cramping; no nausea and no vomiting Neurologic: + generalized weakness Physical Exam Physical Exam: Lying in bed comfortably Constitutional: + ill appearing and average body habitus Eyes: PERRL, conjunctivae normal, anicteric sclerae ENMT: external ear and nose normal, oropharynx normal Neck: trachea midline, no thyromegaly Respiratory: no respiratory distress Auscultation: lungs clear to auscultation bilaterally Cardiovascular: Rate/Rhythm: regular rate and regular rhythm Heart Sounds: no murmur Extremities: + edema (1+ edema bilaterally) Gastrointestinal (Abdomen): Inspection/Auscultation: + abdomen distended; + abnormal bowel sounds (Decreased) Percussion/Palpation: + abdomen tender (Mildly tender all over), abdomen soft and + hernia (Small umbilical hernia); no guarding Musculoskeletal: No acute arthritis in any joint Neurologic: Alert, awake and oriented x3. Generally weak Lymphatic: no cervical or axillary lymphadenopathy Results & Data Results & Data ([facility]) Vital Signs (Past 12 Hours) Vital Signs Temp Pulse Resp BP Pulse Ox 03/21/21 11:38 36.8 C 77 16 106/67 99 03/21/21 11:17 36.6 C 71 18 107/66 99 03/21/21 07:47 36.8 C 88 18 119/71 98 03/21/21 03:40 36.7 C 85 19 113/83 96 Laboratory Results Short CBC 03/21/21 Range/Units 08:24 WBC 6.92 (4.8-10.8) K/uL Hgb 10.5 L (14.0-18.0) g/dL Hct 31.4 L (42-52) % Plt Count 79 L (130-400) K/uL BMP 03/21/21 08:24 Sodium 138 Potassium 3.3 L Chloride 105 Carbon Dioxide 26 BUN 5 L Creatinine 0.85 Glucose 122 H Calcium 7.1 L Liver Function 03/21/21 03/21/21 Range/Units 06:11 08:24 Total Bilirubin 6.6 H 7.5 H (0.2-1) mg/dl Direct Bilirubin 2.0 H (0-0.2) mg/dl AST 77 H 78 H (15-37) U/L ALT 32 30 (12-78) U/L Alkaline Phosphatase 107 109 (45-117) U/L Albumin 1.6 L 1.6 L (3.4-5.0) gm/dl Medications Administered Current Inpatient Medications Acetaminophen (Acetaminophen 325 Mg Tab) 650 mg PO Q4H PRN PRN Reason: Pain or Fever Stop: 04/18/21 19:35 Atenolol (Atenolol 25 Mg Tablet) 25 mg PO [facility] Stop: 04/19/21 08:59 Last Admin: 03/21/21 07:51 Dose: 25 mg Documented by: Folic Acid (Folic Acid 1 Mg Tab) 1 mg PO [facility] Stop: 04/18/21 19:35 Last Admin: 03/21/21 07:51 Dose: 1 mg Documented by: Furosemide (Furosemide 40 Mg Tab) [facility] Stop: 04/19/21 11:44 Last Admin: 03/21/21 07:50 Dose: 40 mg Documented by: Gabapentin (Gabapentin 600 Mg Tab) 600 mg PO Q12H [facility] Stop: 03/22/21 12:01 Gabapentin (Gabapentin 600 Mg Tab) 600 mg PO Q24H [facility] Stop: 03/23/21 12:01 Lorazepam (Ativan) 1 mg in 2 mls @ 2 mls/min IV UD PRN; Protocol PRN Reason: EtOH Withdrawl AWSS Score 6,7 Stop: 04/18/21 19:35 Lorazepam (Ativan) 2 mg in 4 mls @ 4 mls/min IV UD PRN; Protocol PRN Reason: EtOH Withdrawl AWSS Score 8,9 Stop: 04/18/21 19:35 Lorazepam (Ativan) 3 mg in 6 mls @ 4 mls/min IV ONCE PRN; Protocol PRN Reason: EtOH Withdrawl AWSS Score >=10 Stop: 04/18/21 19:35 Lactulose (Lactulose Syrup 30 Gm/45 Ml Udp) 30 gm PO QID [facility] Stop: 04/19/21 12:59 Last Admin: 03/21/21 13:22 Dose: Not Given Documented by: Metoprolol Tartrate (Metoprolol Tartrate 1 Mg/Ml Vial) 5 mg IV Q6 PRN PRN Reason: Tachycardia Stop: 04/19/21 00:00 Last Admin: 03/19/21 21:28 Dose: 5 mg Documented by: Oxycodone HCl (Oxycodone Hcl Ir 5 Mg Tab (Immediate Release)) 5 mg PO Q4H PRN PRN Reason: Pain Stop: 04/03/21 00:07 Last Admin: 03/21/21 03:07 Dose: 5 mg Documented by: Rifaximin (Rifaximin 550 Mg Tablet) 550 mg PO BID [facility] Stop: 04/19/21 11:29 Last Admin: 03/21/21 07:51 Dose: 550 mg Documented by: Spironolactone (Spironolactone 25 Mg Tab) 25 mg PO QAM [facility] Stop: 04/19/21 11:44 Last Admin: 03/21/21 07:50 Dose: 25 mg Documented by: Thiamine HCl (Thiamine Hcl 100 Mg Tab) 100 mg PO QAM [facility] Stop: 04/18/21 19:35 Last Admin: 03/21/21 07:51 Dose: 100 mg Documented by: (1) Esophageal varices Esophageal varices type: unspecified type
[2021-03-21] MEDS: ACETAMINOPHEN 325 MG TAB PO PRN (16:30)
[2021-03-21] MEDS: LORazepam 1 MG/2 ML VIAL IV PRN ×3 (16:32→23:41)
[2021-03-21] MEDS: LORazepam 2 MG/4 ML VIAL IV PRN (22:35)
[2021-03-22 06:24] LABS: Hematocrit (blood only) 33.7 % (42-52); Hemoglobin 11.4 g/dL (14.0-18.0); Mean Corpuscular Hemoglobin 38.5 pg (25-34); Mean Corpuscular Hgb Conc 33.8 g/dL (32-36); Mean Corpuscular Volume 113.9 fL (80-100); RDW Coefficient of Variation 15.3 % (11.5-14.5); RDW Standard Deviation 62.4 fL (36.4-46.3); Red Blood Count 2.96 M/uL (4.7-6.1)
[2021-03-22 06:28] LABS: Mean Platelet Volume 11.3 fL (7.4-10.4); Platelet Count 63 K/uL (130-400)
[2021-03-22 06:53] LABS: Basophils # (auto) 0.05 K/uL (0-0.2); Basophils % (auto) 0.7 %; Eosinophils # (auto) 0.29 K/uL (0-0.5); Immature Granulocytes # (auto) 0.02 K/uL (0.00-0.02); Immature Granulocytes % (auto) 0.3 %; Lymphocytes # (auto) 1.78 K/uL (1.2-3.4); Lymphocytes % (auto) 24.4 %; Macrocytosis Present; Monocytes # (auto) 0.98 K/uL (0.11-0.59); Monocytes % (auto) 13.4 %; Neutrophils # (auto) 4.18 K/uL (1.4-6.5); Neutrophils % (auto) 57.2 %
[2021-03-22 07:04] LABS: BUN Creatinine Ratio 7.5 (10-20); Calcium 7.3 mg/dl (8.5-10.1); Est GFR (Non-African American) 100.9 ml/min; Magnesium 1.5 mg/dl (1.8-2.4); Phosphorus 2.5 mg/dl (2.5-4.9); Potassium 3.1 mmol/L (3.5-5.1)
[2021-03-22] MEDS: rifAXIMin 550 MG TABLET PO SCH ×2 (08:03→21:36)
[2021-03-22] MEDS: LACTULOSE SYRUP 30 GM/45 ML UDP PO SCH ×4 (08:03→21:36)
[2021-03-22] MEDS: FUROSEMIDE 40 MG TAB PO SCH (08:03)
[2021-03-22] MEDS: SPIRONOLACTONE 25 MG TAB PO SCH (08:03)
[2021-03-22] MEDS: FOLIC ACID 1 MG TAB PO SCH (08:03)
[2021-03-22] MEDS: ATENOLOL 25 MG TABLET PO SCH (08:03)
[2021-03-22] MEDS: THIAMINE HCL 100 MG TAB PO SCH (08:04)
[2021-03-22] MEDS: MAGNESIUM SULFATE / D5W 1 GM/100 ML BAG IV SCH ×2 (08:58→10:53)
[2021-03-22] MEDS ORDERED: POTASSIUM CHLORIDE CRTAB 20 MEQ TABCR PO SCH (09:00)
--- NOTE | 2021-03-22 10:27 | Gastroenterology Progress Note ---
Date of Service March 22, 2021 Assessment & Plan (1) Alcoholic cirrhosis of liver with ascites: Elevated T Bili suggestive of ETOH hepatitis as well as cirrhosis. CT w/o evidence of bile duct obstruction. Abstinence is lewis to any meaningful improvement. Continue to manage electrolyte and nutrition. Pt may take po but high risk of aspiration. Should be on a 2 gram Na diet. No indication for fluid restriction. No clear GI/hepatology indication for antibiotics. No evidence of SBP. Present on Admission?: Yes (2) Alcohol dependence: Continue alcohol withdrawal protocols to prevent DTs. Present on Admission?: Yes Admission and Anticipated Discharge Date Admission Date: March 19, 2021 Supervising Physician Co-Signing Physician Notes I have personally seen and examined the patient with NIXON Lechuga. Her note reflects my exam and findings. I agree with her impression and plan. Patient eating without significant tremors. I have nothing else specific to add from GI perspective. Cont to watch and treat withdrawal per protocol. Gadiel Lawrence M.D. Subjective 6 03/22/2021 64 yr old male, ETOH cirrhosis continued drinking. Admitted with intoxication, electrolyte abnormalities worsening ascites on 03/20 CT scan of the Abd/pelvis in the ER was negative for acute findings, Seen in the Med ICU. Responsive to sound and touch but not verbal - not able to elicit a meaningful hx. Agitated, pulling at his lines. No tremor. Paracentesis yesterday: 4L removed. WBC 152, 15% neutrophils (no evidence for SBP). Review of Systems Review of Systems: Unable to elicit ROS Physical Exam Constitutional: WD/WN, vitals as above Eyes: PERRL, conjunctivae normal, anicteric sclerae ENMT: external ear and nose normal, oropharynx normal Neck: trachea midline, no thyromegaly Respiratory: normal respiratory effort Cardiovascular: RRR, no murmur, no edema Heart Sounds: + murmur Few crackles in the left base Gastrointestinal (Abdomen): normal bowel sounds, soft, nontender, no hepatosplenomegaly Percussion/Palpation: abdomen soft; abdomen nontender Mild ascites, moderate sized umbilical hernia Musculoskeletal: No cyanosis, no clubbing, no pallor Skin: no rashes, warm and dry Neurologic: + confused; not obtunded Motor/Sensory: + tremor (Mild, hand) Psychiatric: Eye Contact: + poor eye contact Motor Behavior: + tremor (Mild) Agitated Lymphatic: no cervical or axillary lymphadenopathy Results & Data ([facility]) Vital Signs (Past 12 Hours) Vital Signs Temp Pulse Pulse Pulse Resp BP BP 03/22/21 08:02 108/68 03/22/21 07:00 86 03/22/21 06:59 36.7 C 78 20 99/70 L 03/22/21 04:13 36.8 C 94 H 18 103/69 03/22/21 01:35 36.7 C 87 18 116/74 03/22/21 00:00 03/21/21 23:23 36.6 C 90 18 101/68 03/21/21 22:24 37.0 C 82 18 105/72 Pulse Ox Pulse Ox 03/22/21 08:02 03/22/21 07:00 03/22/21 06:59 100 03/22/21 04:13 96 03/22/21 01:35 93 03/22/21 00:00 94 03/21/21 23:23 94 03/21/21 22:24 95 Laboratory Results WBC at 7, Hb 11.4, HCT 33, platelets 63, INR 1.9, sodium 138, potassium 3.1, BUN 6, creatinine 0.7, glucose 79. T bili 7.5 yesterday Diagnostic Findings Paracentesis 03/21/2021:Successful ultrasound-guided paracentesis with removal of approximately 4 liters of ascitic fluid. CTAP 03/19/2021: Hepatic steatosis, hepatic cirrhosis, and evidence of portal hypertension with upper abdominal and paraesophageal varices 2. Persistent ascites with extension to the right inguinal canal and right scrotum. 3. No evidence of bowel obstruction. No evidence of free air. Normal appendix 4. Stable mild colonic wall thickening, likely secondary to hepatocellular disease 5. No perirectal abscess is visualized as was clinically queried (1) Alcohol dependence Substance use status: uncomplicated Qualified Code(s): F10.20 - Alcohol dependence, uncomplicated
[2021-03-22] MEDS: GABAPENTIN 600 MG TAB PO SCH (11:49)
[2021-03-22] MEDS: LORazepam 1 MG/2 ML VIAL IV PRN ×2 (13:09→15:38)
--- NOTE | 2021-03-22 13:51 | Hospitalist Progress Note ---
Date of Service March 22, 2021 Assessment & Plan (1) Syncope: Following an alcoholic binge No significant injury Doubt any arrhythmias No more episode in the hospital Alcohol withdrawal Has been having withdrawal symptoms since this morning Well controlled with Ativan Has history of requirements of IV Precedex We will observe for now in the telemetry unit with frequent examination He did not have significant tremors during examination this morning (2) Chest pain: -patient presenting from home after a syncopal event in the setting of heavy alcohol use, no seizure like activity reported -initial trop negative, EKG without acute ST changes -suspect chest pain is due to pressure from ascites -monitor on tele, continue to cycle cardiac enzymes -been negative for ACS -No more cardiac symptoms (3) Alcoholic cirrhosis of liver with ascites: Has been very noncompliant Appreciate GI input and recommendation He was on Xifaxan and lactulose and probably on Lasix and Aldactone as an outpatient Being very noncompliant he has not been taking any of those and are not in the med list Will start rifaximin 550 mg twice daily, lactulose 30 g 4 times daily, Lasix 40 mg daily and Aldactone 25 mg daily We will continue current medications He is meld score is 21 We will attempt to increase the dose of Aldactone Has significant ascites Will have diagnostic and therapeutic paracentesis under ultrasound-guided tomorrow Has had 4 L paracentesis today-acetic fluid does not show any infection Has been feeling better Ascites seems to be improved following paracentesis (4) Esophageal varices: -non compliant w/ Xifaxan -last paracentesis 12/30/20 for 3.1 L -do not suspect SBP -GI consult for possible paracentesis -alcohol withdrawal protocol with gabapentin, PRN Ativan -LFTs at baseline (5) Buttock wound: -CT abd/pelvis does not show sign of perirectal abscess -afebrile, no leukocytosis - hold on antibiotics -wound care consult -Pressure ulcer of sacral region, stage 3 POA -Appreciate wound care management (6) Paroxysmal atrial fibrillation: -noncompliant with atenolol - will resume while admitted -not a candidate for anticoagulation secondary to medical noncompliance -Remains in sinus rhythm (7) Multiple thyroid nodules: -Per last discharge summary: "Recently found to have marked bilateral lobe thyroid enlargeent by CT scan during an ER visit with several nodular densities of the supracalvicular and retroclavicular region concerning for neoplastic process. He was referred to ENT but has not been compliant with this." Workup is pending. (8) History of pulmonary embolism: -Not a candidate for anticoagulation secondary to history of medical noncompliance (9) Thrombocytopenia: (10) Coagulopathy: -Due to underlying liver disease -platelets at baseline -no signs of bleeding (11) DVT prophylaxis: -SCDs due to thrombocytopenia/coagulopathy Admission and Anticipated Discharge Date Admission Date: March 19, 2021 Subjective 03/21/2021 The patient was seen and examined in telemetry unit He has been feeling much better but remains generally weak Minimal complaints of abdominal discomfort but no definite pain No fever and/or chills 03/22/2021 The patient was seen and examined in medical floor He is having withdrawal symptoms noted this morning and requiring hefty dose of Ativan Has been conversing normally and wants to go home Feels much better following paracentesis Review of Systems Review of Systems: All systems reviewed and are unremarkable except as noted below Gastrointestinal: + bloating and + cramping; no nausea and no vomiting Neurologic: + generalized weakness Physical Exam Physical Exam: Lying in bed comfortably without any significant withdrawal symptoms Constitutional: + ill appearing and average body habitus Eyes: PERRL, conjunctivae normal, anicteric sclerae ENMT: external ear and nose normal, oropharynx normal Neck: trachea midline, no thyromegaly Respiratory: no respiratory distress Auscultation: lungs clear to auscultation bilaterally Cardiovascular: Rate/Rhythm: regular rate and regular rhythm Heart Sounds: no murmur Extremities: + edema (1+ edema bilaterally) Gastrointestinal (Abdomen): Inspection/Auscultation: + abdomen distended and normal bowel sounds Percussion/Palpation: + abdomen tender (Mildly tender all over), abdomen soft and + hernia (Small umbilical hernia); no guarding Musculoskeletal: No acute arthritis in any joint Neurologic: Alert and awake. Pleasantly confused. Minimal tremors with outstretched hands Psychiatric: Insight: + poor insight Lymphatic: no cervical or axillary lymphadenopathy Results & Data Results & Data ([facility]) Vital Signs (Past 12 Hours) Vital Signs Temp Pulse Pulse Resp BP Pulse Ox 03/22/21 11:06 36.8 C 78 16 100/68 93 03/22/21 08:02 108/68 03/22/21 07:00 86 03/22/21 06:59 36.7 C 78 20 99/70 L 100 03/22/21 04:13 36.8 C 94 H 18 103/69 96 Laboratory Results Short CBC 03/22/21 Range/Units 05:59 WBC 7.30 (4.8-10.8) K/uL Hgb 11.4 L (14.0-18.0) g/dL Hct 33.7 L (42-52) % Plt Count 63 L (130-400) K/uL BMP 03/22/21 05:59 Sodium 138 Potassium 3.1 L Chloride 105 Carbon Dioxide 27 BUN 6 L Creatinine 0.78 Glucose 79 Calcium 7.3 L Medications Administered Current Inpatient Medications Acetaminophen (Acetaminophen 325 Mg Tab) 650 mg PO Q4H PRN PRN Reason: Pain or Fever Stop: 04/18/21 19:35 Last Admin: 03/21/21 16:30 Dose: 650 mg Documented by: Atenolol (Atenolol 25 Mg Tablet) 25 mg PO [facility] Stop: 04/19/21 08:59 Last Admin: 03/22/21 08:03 Dose: 25 mg Documented by: Folic Acid (Folic Acid 1 Mg Tab) 1 mg PO [facility] Stop: 04/18/21 19:35 Last Admin: 03/22/21 08:03 Dose: 1 mg Documented by: Furosemide (Furosemide 40 Mg Tab) [facility] Stop: 04/19/21 11:44 Last Admin: 03/22/21 08:03 Dose: 40 mg Documented by: Gabapentin (Gabapentin 600 Mg Tab) 600 mg PO Q24H [facility] Stop: 03/23/21 12:01 Lorazepam (Ativan) 1 mg in 2 mls @ 2 mls/min IV UD PRN; Protocol PRN Reason: EtOH Withdrawl AWSS Score 6,7 Stop: 04/18/21 19:35 Last Admin: 03/22/21 13:09 Dose: 2 mls/min Documented by: Lorazepam (Ativan) 2 mg in 4 mls @ 4 mls/min IV UD PRN; Protocol PRN Reason: EtOH Withdrawl AWSS Score 8,9 Stop: 04/18/21 19:35 Last Admin: 03/21/21 22:35 Dose: 4 mls/min Documented by: Lorazepam (Ativan) 3 mg in 6 mls @ 4 mls/min IV ONCE PRN; Protocol PRN Reason: EtOH Withdrawl AWSS Score >=10 Stop: 04/18/21 19:35 Magnesium Sulfate/Dextrose (Magnesium Sulfate / D5w) 1 gm in 100 mls @ 50 mls/hr IV TODAY@0900,1100 [facility] Stop: 03/22/21 23:59 Last Infusion: 03/22/21 12:54 Dose: Infused Documented by: Lactulose (Lactulose Syrup 30 Gm/45 Ml Udp) 30 gm PO QID [facility] Stop: 04/19/21 12:59 Last Admin: 03/22/21 12:55 Dose: Not Given Documented by: Metoprolol Tartrate (Metoprolol Tartrate 1 Mg/Ml Vial) 5 mg IV Q6 PRN PRN Reason: Tachycardia Stop: 04/19/21 00:00 Last Admin: 03/19/21 21:28 Dose: 5 mg Documented by: Oxycodone HCl (Oxycodone Hcl Ir 5 Mg Tab (Immediate Release)) 5 mg PO Q4H PRN PRN Reason: Pain Stop: 04/03/21 00:07 Last Admin: 03/21/21 03:07 Dose: 5 mg Documented by: Potassium Chloride (Potassium Chloride Crtab 20 Meq Tabcr) 40 meq PO TODAY@0900 [facility] Stop: 03/22/21 23:59 Last Admin: 03/22/21 08:58 Dose: 40 meq Documented by: Rifaximin (Rifaximin 550 Mg Tablet) 550 mg PO BID [facility] Stop: 04/19/21 11:29 Last Admin: 03/22/21 08:03 Dose: 550 mg Documented by: Spironolactone (Spironolactone 25 Mg Tab) 25 mg PO QAM [facility] Stop: 04/19/21 11:44 Last Admin: 03/22/21 08:03 Dose: 25 mg Documented by: Thiamine HCl (Thiamine Hcl 100 Mg Tab) 100 mg PO QAM [facility] Stop: 04/18/21 19:35 Last Admin: 03/22/21 08:04 Dose: 100 mg Documented by: (1) Esophageal varices Esophageal varices type: unspecified type
[2021-03-22] MEDS: BEER 1 CAN PO SCH (21:36)
[2021-03-22] MEDS: LORazepam 3 MG/6 ML VIAL IV PRN (21:44)
[2021-03-23] MEDS: LORazepam 3 MG/6 ML VIAL IV PRN (03:45)
[2021-03-23 06:53] LABS: Hematocrit (blood only) 37.3 % (42-52); Hemoglobin 12.2 g/dL (14.0-18.0); Mean Corpuscular Hemoglobin 38.5 pg (25-34); Mean Corpuscular Hgb Conc 32.7 g/dL (32-36); Mean Corpuscular Volume 117.7 fL (80-100); RDW Coefficient of Variation 15.4 % (11.5-14.5); RDW Standard Deviation 64.2 fL (36.4-46.3); Red Blood Count 3.17 M/uL (4.7-6.1); White Blood Count 7.91 K/uL (4.8-10.8)
[2021-03-23 07:18] LABS: Albumin Level 1.6 gm/dl (3.4-5.0); BUN Creatinine Ratio 9.6 (10-20); Est GFR (African American) 107.4 ml/min; Est GFR (Non-African American) 92.6 ml/min; Magnesium 1.7 mg/dl (1.8-2.4); Potassium 3.3 mmol/L (3.5-5.1)
[2021-03-23 07:36] LABS: Mean Platelet Volume 11.2 fL (7.4-10.4); Platelet Count 87 K/uL (130-400)
[2021-03-23 07:37] LABS: Basophils # (auto) 0.05 K/uL (0-0.2); Basophils % (auto) 0.6 %; Echinocytes 1+; Eosinophils # (auto) 0.17 K/uL (0-0.5); Eosinophils % (auto) 2.1 %; Immature Granulocytes # (auto) 0.02 K/uL (0.00-0.02); Immature Granulocytes % (auto) 0.3 %; Lymphocytes # (auto) 1.52 K/uL (1.2-3.4); Lymphocytes % (auto) 19.2 %; Macrocytosis Present; Monocytes # (auto) 1.15 K/uL (0.11-0.59); Monocytes % (auto) 14.5 %; Neutrophils % (auto) 63.3 %; Platelet Estimate Decreased (Normal); Polychromasia 1+
[2021-03-23] MEDS: rifAXIMin 550 MG TABLET PO SCH ×2 (07:40→20:17)
[2021-03-23] MEDS: ATENOLOL 25 MG TABLET PO SCH (07:41)
[2021-03-23] MEDS: FOLIC ACID 1 MG TAB PO SCH (07:41)
[2021-03-23] MEDS: SPIRONOLACTONE 25 MG TAB PO SCH (07:42)
[2021-03-23] MEDS: THIAMINE HCL 100 MG TAB PO SCH (07:42)
[2021-03-23] MEDS: FUROSEMIDE 40 MG TAB PO SCH (07:42)
[2021-03-23] MEDS: LACTULOSE SYRUP 30 GM/45 ML UDP PO SCH ×4 (07:43→20:17)
[2021-03-23 07:49] LABS: Albumin Globulin Ratio 0.3 (0.9-2); Bilirubin,Total 9.1 mg/dl (0.2-1); Globulin 5.7 gm/dl (2.5-4.0); Phosphorus 3.3 mg/dl (2.5-4.9); Total Protein 7.3 gm/dl (6.4-8.2)
[2021-03-23] MEDS: BEER 1 CAN PO SCH ×3 (07:52→20:17)
--- NOTE | 2021-03-23 10:52 | Hospitalist Progress Note ---
Date of Service March 23, 2021 Assessment & Plan (1) Syncope: Following an alcoholic binge No significant injury Doubt any arrhythmias No more episode in the hospital Alcohol withdrawal Has been having withdrawal symptoms since this morning Well controlled with Ativan Has history of requirements of IV Precedex We will observe for now in the telemetry unit with frequent examination He did not have significant tremors during examination this morning (2) Chest pain: -patient presenting from home after a syncopal event in the setting of heavy alcohol use, no seizure like activity reported -initial trop negative, EKG without acute ST changes -suspect chest pain is due to pressure from ascites -monitor on tele, continue to cycle cardiac enzymes -been negative for ACS -No more cardiac symptoms (3) Alcoholic cirrhosis of liver with ascites: Has been very noncompliant Appreciate GI input and recommendation He was on Xifaxan and lactulose and probably on Lasix and Aldactone as an outpatient Being very noncompliant he has not been taking any of those and are not in the med list Will start rifaximin 550 mg twice daily, lactulose 30 g 4 times daily, Lasix 40 mg daily and Aldactone 25 mg daily We will continue current medications He is meld score is 21 We will attempt to increase the dose of Aldactone Has significant ascites Will have diagnostic and therapeutic paracentesis under ultrasound-guided tomorrow Has had 4 L paracentesis today-acetic fluid does not show any infection Has been feeling better Ascites seems to be improved following paracentesis (4) Esophageal varices: -non compliant w/ Xifaxan -last paracentesis 12/30/20 for 3.1 L -do not suspect SBP -GI consult for possible paracentesis -alcohol withdrawal protocol with gabapentin, PRN Ativan -LFTs at baseline (5) Buttock wound: -CT abd/pelvis does not show sign of perirectal abscess -afebrile, no leukocytosis - hold on antibiotics -wound care consult -Pressure ulcer of sacral region, stage 3 POA -Appreciate wound care management (6) Paroxysmal atrial fibrillation: -noncompliant with atenolol - will resume while admitted -not a candidate for anticoagulation secondary to medical noncompliance -Remains in sinus rhythm (7) Multiple thyroid nodules: -Per last discharge summary: "Recently found to have marked bilateral lobe thyroid enlargeent by CT scan during an ER visit with several nodular densities of the supracalvicular and retroclavicular region concerning for neoplastic process. He was referred to ENT but has not been compliant with this." Workup is pending. (8) History of pulmonary embolism: -Not a candidate for anticoagulation secondary to history of medical noncompliance (9) Thrombocytopenia: (10) Coagulopathy: -Due to underlying liver disease -platelets at baseline -no signs of bleeding (11) DVT prophylaxis: -SCDs due to thrombocytopenia/coagulopathy Admission and Anticipated Discharge Date Admission Date: March 19, 2021 Results & Data Results & Data ([facility] Vital Signs (Past 12 Hours) Vital Signs Temp Pulse Pulse Pulse Resp BP BP 03/23/21 09:20 90 03/23/21 07:00 36.8 C 91 H 91 H 19 110/71 03/23/21 04:15 37.2 C 83 17 111/59 L Pulse Ox 03/23/21 09:20 03/23/21 07:00 94 03/23/21 04:15 94 (1) Esophageal varices Esophageal varices type: unspecified type
--- NOTE | 2021-03-23 10:57 | Hospitalist Progress Note ---
Date of Service March 23, 2021 Assessment & Plan (1) Syncope: Patient had an episode of syncope following alcohol binge. No significant injuries have been identified. No further episodes in the hospital. No significant arrhythmic issues identified. Alcohol intoxication Currently on a CIWA protocol. On p.o. 3 times daily. Continues to have one-to-one. Has history of requirements of IV Precedex. Hypokalemia -repleted (2) Chest pain: -patient presenting from home after a syncopal event in the setting of heavy alcohol use, no seizure like activity reported. EKG has been nonischemic. Cardiac enzymes are not concerning. Patient did not report any chest pain today. Continue to monitor under telemetry. (3) Alcoholic cirrhosis of liver with ascites: Appreciate gastroenterology input. Patient has been noncompliant with his medications. Continue rifaximin 550 mg twice daily, lactulose 30 g 4 times daily, 640 mg daily and Aldactone 25 mg daily. S/p paracentesis on 03/22 with 4 L removed. No indication for antibiotics as per GI. Studies from paracentesis are pending. (4) Esophageal varices: -non compliant w/ Xifaxan -last paracentesis 12/30/20 for 3.1 L. S/p paracentesis on 03/22. No evidence of SBP. -alcohol withdrawal protocol with gabapentin, PRN Ativan -LFTs at baseline (5) Buttock wound: -CT abd/pelvis does not show sign of perirectal abscess. -Patient remains afebrile. WBC is within normal limit. No indication for antibiotics at this time. -Pressure ulcer of sacral region, stage 3 POA -Appreciate wound care input. (6) Paroxysmal atrial fibrillation: Continue with [employer] atenolol 25 mg twice daily. Rate is controlled. No indication for anticoagulation given his medication noncompliance. Remains in normal sinus rhythm. (7) Multiple thyroid nodules: -Per last discharge summary: "Recently found to have marked bilateral lobe thyroid enlargeent by CT scan during an ER visit with several nodular densities of the supracalvicular and retroclavicular region concerning for neoplastic process. He was referred to ENT but has not been compliant with this." Workup is pending. (8) History of pulmonary embolism: -Not a candidate for anticoagulation secondary to history of medical noncompliance. (9) Thrombocytopenia: (10) Coagulopathy: -Due to underlying liver disease -platelets at baseline -no signs of bleeding (11) DVT prophylaxis: -SCDs due to thrombocytopenia/coagulopathy Admission and Anticipated Discharge Date Admission Date: March 19, 2021 Subjective Patient was awake this morning. He was oriented to place and time but not per son. Does have one-to-one sitter at bedside. Currently resting comfortably. Staff has reported being agitated. Hemodynamically patient is doing okay. Review of Systems Review of Systems: All systems reviewed & are unremarkable except as noted in HPI & below Physical Exam Physical Exam: General: A&Ox2, ill-appearing gentleman HENT: NCAT, MMM, EOMI Eyes: PERRLA Neck: Supple, normal range of motion CVS: normal rate and rhythm Resp: b/l good breath sounds Abdomen: Soft, mild diffuse tenderness appreciated Extremities: Trace lower extremity edema Neuro: face symmetric, strength grossly equal, no focal deficit Skin: warm and dry, no rashes/lesions/errythema MSK: normal ROM, no joint swelling/erythema Results & Data Results & Data ([facility]) Vital Signs (Past 12 Hours) Vital Signs Temp Pulse Pulse Pulse Resp BP BP 03/23/21 09:20 90 03/23/21 07:00 36.8 C 91 H 91 H 19 110/71 03/23/21 04:15 37.2 C 83 17 111/59 L Pulse Ox 03/23/21 09:20 03/23/21 07:00 94 03/23/21 04:15 94 (1) Esophageal varices Esophageal varices type: unspecified type
[2021-03-23] MEDS: LORazepam 2 MG/4 ML VIAL IV PRN (11:33)
[2021-03-23] MEDS ORDERED: GABAPENTIN 600 MG TAB PO SCH (12:00)
[2021-03-23] MEDS: LACTULOSE 200 GM, WATER, STERILE IRRIG 700 ML, BARCODE IDENTIFIER 1 EA PR SCH ×2 (16:47→22:55)
[2021-03-24] MEDS: LACTULOSE 200 GM, WATER, STERILE IRRIG 700 ML, BARCODE IDENTIFIER 1 EA PR SCH ×3 (06:38→21:01)
[2021-03-24 06:40] LABS: Hematocrit (blood only) 33.2 % (42-52); Hemoglobin 11.1 g/dL (14.0-18.0); Mean Corpuscular Hemoglobin 38.9 pg (25-34); Mean Corpuscular Hgb Conc 33.4 g/dL (32-36); Mean Corpuscular Volume 116.5 fL (80-100); Nucleated RBC # (auto) 0.04 K/uL (0-0); Nucleated RBC % (auto) 0.7 %; RDW Coefficient of Variation 15.8 % (11.5-14.5); RDW Standard Deviation 66.4 fL (36.4-46.3); Red Blood Count 2.85 M/uL (4.7-6.1); White Blood Count 6.43 K/uL (4.8-10.8)
[2021-03-24 06:41] LABS: Mean Platelet Volume 11.5 fL (7.4-10.4); Platelet Count 72 K/uL (130-400)
[2021-03-24] MEDS: LACTULOSE SYRUP 30 GM/45 ML UDP PO SCH ×4 (07:15→21:03)
[2021-03-24] MEDS: FUROSEMIDE 40 MG TAB PO SCH (07:17)
[2021-03-24] MEDS: SPIRONOLACTONE 25 MG TAB PO SCH (07:17)
[2021-03-24] MEDS: ATENOLOL 25 MG TABLET PO SCH ×2 (07:17→07:21)
[2021-03-24] MEDS: rifAXIMin 550 MG TABLET PO SCH ×2 (07:17→21:03)
[2021-03-24] MEDS: THIAMINE HCL 100 MG TAB PO SCH (07:17)
[2021-03-24] MEDS: FOLIC ACID 1 MG TAB PO SCH (07:17)
[2021-03-24 07:35] LABS: Albumin Globulin Ratio 0.3 (0.9-2); Albumin Level 1.3 gm/dl (3.4-5.0); BUN Creatinine Ratio 8.8 (10-20); Bilirubin,Total 6.1 mg/dl (0.2-1); Calcium 7.9 mg/dl (8.5-10.1); Creatinine Clr Calc Pharmacy 83.4 ml/min; Est GFR (African American) 112.4 ml/min; Est GFR (Non-African American) 96.9 ml/min; Globulin 5.1 gm/dl (2.5-4.0); Potassium 2.9 mmol/L (3.5-5.1); Total Protein 6.4 gm/dl (6.4-8.2)
[2021-03-24 08:16] LABS: Basophils # (auto) 0.07 K/uL (0-0.2); Basophils % (auto) 1.1 %; Eosinophils # (auto) 0.27 K/uL (0-0.5); Eosinophils % (auto) 4.2 %; Immature Granulocytes # (auto) 0.03 K/uL (0.00-0.02); Immature Granulocytes % (auto) 0.5 %; Lymphocytes # (auto) 1.44 K/uL (1.2-3.4); Lymphocytes % (auto) 22.4 %; Macrocytosis Present; Monocytes # (auto) 1.08 K/uL (0.11-0.59); Monocytes % (auto) 16.8 %; Neutrophils # (auto) 3.54 K/uL (1.4-6.5)
[2021-03-24] MEDS: BEER 1 CAN PO SCH ×3 (10:26→21:00)
[2021-03-24] MEDS ORDERED: POTASSIUM PHOS 3 MMOL/1 ML INFUSION IV STA (12:38)
[2021-03-24] MEDS ORDERED: POTASSIUM CHLORIDE CRTAB 20 MEQ TABCR PO STA ×2 (12:39→14:48)
--- NOTE | 2021-03-24 12:41 | Hospitalist Progress Note ---
Date of Service March 24, 2021 Assessment & Plan (1) Syncope: Patient had an episode of syncope following alcohol binge. No significant injuries have been identified. No further episodes in the hospital. No significant arrhythmic issues identified. Alcohol intoxication Currently on a CIWA protocol. On beer 3 times daily. Continues to have one-to-one. Has history of requirements of IV Precedex. Hypokalemia -repleted (2) Chest pain: -patient presenting from home after a syncopal event in the setting of heavy alcohol use, no seizure like activity reported. EKG has been nonischemic. Cardiac enzymes are not concerning. Patient did not report chest pain today, will obtain troponin. Continue to monitor under telemetry. (3) Alcoholic cirrhosis of liver with ascites: Appreciate gastroenterology input. Patient has been noncompliant with his medications. Continue rifaximin 550 mg twice daily, lactulose 30 g 4 times daily, 640 mg daily and Aldactone 25 mg daily. S/p paracentesis on 03/22 with 4 L removed. No indication for antibiotics as per GI. (4) Esophageal varices: -non compliant w/ Xifaxan -last paracentesis 12/30/20 for 3.1 L. S/p paracentesis on 03/22. No evidence of SBP. -alcohol withdrawal protocol with gabapentin, PRN Ativan -LFTs at baseline (5) Buttock wound: -CT abd/pelvis does not show sign of perirectal abscess. -Patient remains afebrile. WBC is within normal limit. No indication for antibiotics at this time. -Pressure ulcer of sacral region, stage 3 POA -Appreciate wound care input. (6) Paroxysmal atrial fibrillation: Continue with [employer] atenolol 25 mg twice daily. Rate is controlled. No indication for anticoagulation given his medication noncompliance. Remains in normal sinus rhythm. (7) Multiple thyroid nodules: -Per last discharge summary: "Recently found to have marked bilateral lobe thyroid enlargeent by CT scan during an ER visit with several nodular densities of the supracalvicular and retroclavicular region concerning for neoplastic process. He was referred to ENT but has not been compliant with this." Workup is pending. (8) History of pulmonary embolism: -Not a candidate for anticoagulation secondary to history of medical noncompliance. (9) Thrombocytopenia: (10) Coagulopathy: -Due to underlying liver disease -platelets at baseline -no signs of bleeding (11) DVT prophylaxis: -SCDs due to thrombocytopenia/coagulopathy Admission and Anticipated Discharge Date Admission Date: March 19, 2021 Subjective She was sleeping prior to my arrival. Does have one-to-one sitter bedside. He was oriented to place and time but not the person. Seems less agitated today. Did report some epigastric/chest discomfort. Any nausea or vomiting. Decreased p.o. intake. Denies any abdominal pain.. Review of Systems Review of Systems: All systems reviewed & are unremarkable except as noted in HPI & below Physical Exam Physical Exam: General: ill-appearing gentleman HENT: NCAT, MMM, EOMI Eyes: PERRLA Neck: Supple, normal range of motion CVS: normal rate and rhythm Resp: b/l good breath sounds Abdomen: Soft, mild diffuse tenderness appreciated Extremities: Trace lower extremity edema Neuro: face symmetric, no focal deficit, moves all 4 extremities Skin: warm and dry MSK: no joint swelling/erythema Fecal bag in place. Results & Data Results & Data ([facility] [place]) Vital Signs (Past 12 Hours) Vital Signs Temp Pulse Pulse Resp BP BP Pulse Ox 03/24/21 12:08 36.8 C 79 18 107/60 100 03/24/21 07:58 81 03/24/21 07:20 79 18 93/74 L 91 03/24/21 07:19 03/24/21 04:22 99 03/24/21 04:19 36.8 C 84 25 H 107/65 90 Pulse Ox 03/24/21 12:08 03/24/21 07:58 03/24/21 07:20 03/24/21 07:19 91 03/24/21 04:22 03/24/21 04:19 (1) Esophageal varices Esophageal varices type: unspecified type
[2021-03-24 23:33] LABS: BUN Creatinine Ratio 6.6 (10-20); Calcium 7.9 mg/dl (8.5-10.1); Creatinine Clr Calc Pharmacy 83.4 ml/min; Est GFR (African American) 112.4 ml/min; Est GFR (Non-African American) 96.9 ml/min; Potassium 3.2 mmol/L (3.5-5.1)
[2021-03-25] MEDS: LACTULOSE 200 GM, WATER, STERILE IRRIG 700 ML, BARCODE IDENTIFIER 1 EA PR SCH ×3 (06:40→22:08)
[2021-03-25 06:59] LABS: Hematocrit (blood only) 34.1 % (42-52); Hemoglobin 11.2 g/dL (14.0-18.0); Mean Corpuscular Hemoglobin 38.8 pg (25-34); Mean Corpuscular Hgb Conc 32.8 g/dL (32-36); RDW Coefficient of Variation 15.8 % (11.5-14.5); RDW Standard Deviation 67.1 fL (36.4-46.3); Red Blood Count 2.89 M/uL (4.7-6.1); White Blood Count 7.86 K/uL (4.8-10.8)
[2021-03-25 07:21] LABS: Albumin Globulin Ratio 0.3 (0.9-2); Albumin Level 1.3 gm/dl (3.4-5.0); BUN Creatinine Ratio 7.2 (10-20); Bilirubin,Total 5.7 mg/dl (0.2-1); Calcium 8.2 mg/dl (8.5-10.1); Creatinine Clr Calc Pharmacy 87.5 ml/min; Est GFR (African American) 114.6 ml/min; Est GFR (Non-African American) 98.9 ml/min; Globulin 5.1 gm/dl (2.5-4.0); Potassium 3.3 mmol/L (3.5-5.1); Total Protein 6.4 gm/dl (6.4-8.2)
[2021-03-25 07:56] LABS: Basophils # (auto) 0.08 K/uL (0-0.2); Eosinophils # (auto) 0.27 K/uL (0-0.5); Eosinophils % (auto) 3.4 %; Immature Granulocytes # (auto) 0.01 K/uL (0.00-0.02); Immature Granulocytes % (auto) 0.1 %; Lymphocytes # (auto) 2.09 K/uL (1.2-3.4); Lymphocytes % (auto) 26.6 %; Macrocytosis Present; Monocytes # (auto) 1.45 K/uL (0.11-0.59); Monocytes % (auto) 18.4 %; Neutrophils # (auto) 3.96 K/uL (1.4-6.5); Neutrophils % (auto) 50.5 %; Platelet Count 68 K/uL (130-400)
[2021-03-25] MEDS: BEER 1 CAN PO SCH ×3 (08:44→19:53)
[2021-03-25] MEDS: LACTULOSE SYRUP 30 GM/45 ML UDP PO SCH ×4 (09:26→19:52)
[2021-03-25] MEDS: FOLIC ACID 1 MG TAB PO SCH (09:26)
[2021-03-25] MEDS: THIAMINE HCL 100 MG TAB PO SCH (09:27)
[2021-03-25] MEDS: ATENOLOL 25 MG TABLET PO SCH (09:27)
[2021-03-25] MEDS: rifAXIMin 550 MG TABLET PO SCH ×2 (09:28→19:52)
[2021-03-25] MEDS: SPIRONOLACTONE 25 MG TAB PO SCH (09:29)
[2021-03-25] MEDS: FUROSEMIDE 40 MG TAB PO SCH (09:30)
--- NOTE | 2021-03-25 10:54 | Hospitalist Progress Note ---
Date of Service March 25, 2021 Assessment & Plan (1) Alcohol abuse: Currently on a CIWA protocol. On beer 3 times daily. C/W thiamine, folic acid. Continues to have one-to-one. Has history of requirements of IV Precedex. Work with PT/OT once more stable. (2) Alcoholic cirrhosis of liver with ascites: Appreciate gastroenterology input. Patient has been noncompliant with his medications. Continue rifaximin 550 mg twice daily, lactulose 30 g 4 times daily, 640 mg daily and Aldactone 25 mg daily. S/p paracentesis on 03/22 with 4 L removed. No indication for antibiotics as per GI. (3) Esophageal varices: -non compliant w/ Xifaxan -last paracentesis 12/30/20 for 3.1 L. S/p paracentesis on 03/22. No evidence of SBP. -alcohol withdrawal protocol with gabapentin, PRN Ativan -LFTs at baseline (4) Syncope: Patient had an episode of syncope following alcohol binge. No significant injuries have been identified. No further episodes in the hospital. No significant arrhythmic issues identified. (5) Chest pain: Patient presenting from home after a syncopal event in the setting of heavy alcohol use, no seizure like activity reported. EKG has been nonischemic. Cardiac enzymes are not concerning. Continue to monitor under telemetry. (6) Buttock wound: -CT abd/pelvis does not show sign of perirectal abscess. Wound does not look infected. -Patient remains afebrile. WBC is within normal limit. No indication for antibiotics at this time. -Pressure ulcer of sacral region, stage 3 POA -Appreciate wound care input. (7) Paroxysmal atrial fibrillation: Continue with [employer] atenolol 25 mg twice daily. Rate is controlled. No indication for anticoagulation given his medication noncompliance. Remains in normal sinus rhythm. (8) Multiple thyroid nodules: -Per last discharge summary: "Recently found to have marked bilateral lobe thyroid enlargeent by CT scan during an ER visit with several nodular densities of the supracalvicular and retroclavicular region concerning for neoplastic pro cess. He was referred to ENT but has not been compliant with this." Workup is pending. (9) History of pulmonary embolism: -Not a candidate for anticoagulation secondary to history of medical noncompliance. (10) Thrombocytopenia: (11) Coagulopathy: -Due to underlying liver disease -platelets at baseline -no signs of bleeding (12) DVT prophylaxis: -SCDs due to thrombocytopenia/coagulopathy Admission and Anticipated Discharge Date Admission Date: March 19, 2021 Subjective Patient is sitting on the chair and having breakfast. He is somnolent but orien quan to place and time but not person. Denies any further episodes of chest pain today. No nausea or vomiting. Denies any abdominal pain or dysuria. Review of Systems Review of Systems: All systems reviewed & are unremarkable except as noted in HPI & below Physical Exam Physical Exam: General: ill-appearing gentleman HENT: NCAT, MMM, EOMI Eyes: PERRLA Neck: Supple, normal range of motion CVS: normal rate and rhythm Resp: b/l good breath sounds Abdomen: Soft, mild diffuse tenderness appreciated Extremities: Trace lower extremity edema Neuro: face symmetric, no focal deficit, moves all 4 extremities Skin: warm and dry MSK: no joint swelling/erythema Results & Data Results & Data ([facility]) Vital Signs (Past 12 Hours) Vital Signs Temp Pulse Pulse Resp BP Pulse Ox Pulse Ox 03/25/21 07:40 94 03/25/21 07:30 36.6 C 85 21 110/61 94 03/25/21 05:00 36.7 C 96 H 24 107/67 94 03/25/21 00:00 81 03/24/21 23:05 36.6 C 84 22 116/70 94 (1) Esophageal varices Esophageal varices type: unspecified type
[2021-03-25] MEDS ORDERED: ACETAMINOPHEN 325 MG TAB PO STA (19:34)
[2021-03-25 20:15] LABS: Partial Thromboplastin Ratio 1.3; Partial Thromboplastin Time 34.1 Seconds (21.0-31.0)
[2021-03-26] MEDS ORDERED: SODIUM CHLORIDE 0.9% 500 ML IV ONE (00:48)
[2021-03-26 01:36] LABS: Hematocrit (blood only) 31.1 % (42-52); Hemoglobin 10.5 g/dL (14.0-18.0); Mean Corpuscular Hemoglobin 38.6 pg (25-34); Mean Corpuscular Hgb Conc 33.8 g/dL (32-36); Mean Corpuscular Volume 114.3 fL (80-100); RDW Coefficient of Variation 15.6 % (11.5-14.5); RDW Standard Deviation 63.3 fL (36.4-46.3); Red Blood Count 2.72 M/uL (4.7-6.1); White Blood Count 7.58 K/uL (4.8-10.8)
[2021-03-26 01:43] LABS: Mean Platelet Volume 11.4 fL (7.4-10.4); Platelet Count 67 K/uL (130-400)
[2021-03-26 01:59] LABS: Albumin Level 1.3 gm/dl (3.4-5.0); BUN Creatinine Ratio 6.4 (10-20); Calcium 7.1 mg/dl (8.5-10.1); Creatinine Clr Calc Pharmacy 82.5 ml/min; Est GFR (African American) 111.8 ml/min; Est GFR (Non-African American) 96.5 ml/min; Magnesium 1.3 mg/dl (1.8-2.4)
[2021-03-26 02:03] LABS: Basophils # (auto) 0.05 K/uL (0-0.2); Basophils % (auto) 0.7 %; Echinocytes 1+; Eosinophils # (auto) 0.38 K/uL (0-0.5); Giant Platelets 1+; Immature Granulocytes # (auto) 0.03 K/uL (0.00-0.02); Immature Granulocytes % (auto) 0.4 %; Lymphocytes # (auto) 1.86 K/uL (1.2-3.4); Lymphocytes % (auto) 24.5 %; Macrocytosis Present; Monocytes # (auto) 1.41 K/uL (0.11-0.59); Monocytes % (auto) 18.6 %; Neutrophils # (auto) 3.85 K/uL (1.4-6.5); Neutrophils % (auto) 50.8 %; Polychromasia 1+
[2021-03-26 02:04] LABS: Albumin Globulin Ratio 0.3 (0.9-2); Globulin 4.9 gm/dl (2.5-4.0); Total Protein 6.2 gm/dl (6.4-8.2); Troponin I 0.026 ng/ml (0-0.045)
[2021-03-26] MEDS ORDERED: POTASSIUM CHLORIDE CRTAB 20 MEQ TABCR PO STA (03:21)
--- NOTE | 2021-03-26 03:23 | Communication Note ---
Date of Service: March 26, 2021 Notified by RN around 1 AM of patient SBP 80s to 90s. Patient not drinking as much. 6 liquid bowel movements in the last 24 hours. AP Hypotension secondary to hypovolemia secondary to lactulose induced diarrhea Rule out C. difficile IVF Hold diuretics for now until patient euvolemic DC lactulose enema Hold parameters for greater than 3 BMs per day for oral lactulose Stool C. difficile Will relay to AM provider.
[2021-03-26] MEDS: MAGNESIUM SULFATE / D5W 1 GM/100 ML BAG IV SCH ×3 (04:08→09:40)
[2021-03-26] MEDS ORDERED: POTASSIUM CHLORIDE CRTAB 20 MEQ TABCR PO ONE (05:00)
[2021-03-26] MEDS ORDERED: MAGNESIUM OXIDE 400 MG TAB PO SCH (09:00)
[2021-03-26] MEDS ORDERED: POTASSIUM CHLORIDE CRTAB 20 MEQ TABCR PO SCH ×2 (09:00→13:30)
[2021-03-26] MEDS: BEER 1 CAN PO SCH ×3 (09:41→20:46)
[2021-03-26] MEDS: ATENOLOL 25 MG TABLET PO SCH (09:42)
[2021-03-26] MEDS: rifAXIMin 550 MG TABLET PO SCH ×2 (09:43→20:46)
[2021-03-26] MEDS: FOLIC ACID 1 MG TAB PO SCH (09:43)
[2021-03-26] MEDS: LACTULOSE SYRUP 30 GM/45 ML UDP PO SCH ×3 (09:44→19:15)
[2021-03-26] MEDS: THIAMINE HCL 100 MG TAB PO SCH (09:44)
--- NOTE | 2021-03-26 11:00 | Electrocardiogram Report ---
Test Reason : Blood Pressure : / mmHG Vent. Rate : 079 BPM Atrial Rate : 079 BPM P-R Int : 126 ms QRS Dur : 090 ms QT Int : 400 ms P-R-T Axes : 067 083 -67 degrees QTc Int : 458 ms Normal sinus rhythm Abnormal ECG When compared with ECG of 21-MAR-2021 05:50, Inverted T waves have replaced nonspecific T wave abnormality in Inferior leads Inverted T waves have replaced nonspecific T wave abnormality in Anterolateral leads Confirmed by Clement Ceballos ([id number]) on 03/26/2021 11:00:35 AM Referred By: REFERRED SELF Confirmed By:Brady Ceballos
--- NOTE | 2021-03-26 11:14 | Hospitalist Progress Note ---
Date of Service March 26, 2021 Assessment & Plan (1) Alcohol abuse: Currently on a CIWA protocol. On beer 3 times daily. C/W thiamine, folic acid. Continues to have one-to-one. Has history of requirements of IV Precedex. Continue to work with PT/OT. Of note, patient lives with his parents. His mother is not doing so good and he wants to be home soon. Hypokalemia/hypomagnesia: repleted (2) Alcoholic cirrhosis of liver with ascites: Appreciate gastroenterology input. Patient has been noncompliant with his medications. Continue rifaximin 550 mg twice daily, lactulose 30 g 4 times daily, 640 mg daily and Aldactone 25 mg daily. S/p paracentesis on 03/22 with 4 L removed. No indication for antibiotics as per GI. (3) Esophageal varices: -non compliant w/ Xifaxan -last paracentesis 12/30/20 for 3.1 L. S/p paracentesis on 03/22. No evidence of SBP. -alcohol withdrawal protocol with gabapentin, PRN Ativan -LFTs at baseline (4) Syncope: Patient had an episode of syncope following alcohol binge. No significant injuries have been identified. No further episodes in the hospital. No significant arrhythmic issues identified. (5) Chest pain: Patient presenting from home after a syncopal event in the setting of heavy alcohol use, no seizure like activity reported. EKG has been nonischemic. Cardiac enzymes are not concerning. Continue to monitor under telemetry. (6) Buttock wound: -CT abd/pelvis does not show sign of perirectal abscess. Wound does not look infected. -Patient remains afebrile. WBC is within normal limit. No indication for antibiotics at this time. -Pressure ulcer of sacral region, stage 3 POA -Appreciate wound care input. (7) Paroxysmal atrial fibrillation: Continue with [employer] CLE[employer]ER atenolol 25 mg twice daily. Rate is controlled. No indication for anticoagulation given his medication noncompliance. Remains in normal sinus rhythm. (8) Multiple thyroid nodules: -Per last discharge summary: "Recently found to have marked bilateral lobe thyroid enlargeent by CT scan during an ER visit with several nodular densities of the supracalvicular and retroclavicular region concerning for neoplastic process. He was referred to ENT but has not been compliant with this." Workup is pending. (9) History of pulmonary embolism: -Not a candidate for anticoagulation secondary to history of medical nonco mpliance. (10) Thrombocytopenia: Have been slowly trending down. Stable. Continue to monitor daily CBC. Hold DVT prophylaxis for now. (11) Coagulopathy: -Due to underlying liver disease -platelets at baseline -no signs of bleeding (12) DVT prophylaxis: -SCDs due to thrombocytopenia/coagulopathy Admission and Anticipated Discharge Date Admission Date: March 19, 2021 Subjective Patient is much more awake and alert today. Oriented x3. P.o. intake is much better today. Denies any chest pain, shortness of breath, abdominal pain or dysuria. Denies any nausea or vomiting. Review of Systems Review of Systems: All systems reviewed & are unremarkable except as noted in HPI & below Physical Exam Physical Exam: General: ill-appearing gentleman HENT: NCAT, MMM, EOMI Eyes: PERRLA Neck: Supple, normal range of motion CVS: normal rate and rhythm Resp: b/l good breath sounds Abdomen: Soft, mild diffuse tenderness appreciated Extremities: Trace lower extremity edema Neuro: face symmetric, no focal deficit, moves all 4 extremities Skin: warm and dry MSK: no joint swelling/erythema Results & Data Results & Data ([facility]) Vital Signs (Past 12 Hours) Vital Signs Temp Pulse Pulse Resp BP Pulse Ox Pulse Ox 03/26/21 07:13 36.7 C 76 18 98/53 L 94 03/26/21 07:00 94 03/26/21 03:17 36.8 C 67 16 102/53 L 93 03/26/21 00:18 81 99/58 L 94 03/25/21 23:26 93 03/25/21 23:22 36.7 C 76 16 90/47 L 91 (1) Esophageal varices Esophageal varices type: unspecified type
[2021-03-26] MEDS ORDERED: SODIUM CHLORIDE 0.9% 1000ML 250 ML IV ONE (11:41)
[2021-03-26] MEDS ORDERED: SODIUM CHLORIDE 0.9% 1000ML 500 ML IV ONE (16:07)
[2021-03-26] MEDS: ACETAMINOPHEN 325 MG TAB PO PRN (16:15)
[2021-03-27] MEDS: ACETAMINOPHEN 325 MG TAB PO PRN ×2 (00:07→17:41)
[2021-03-27] MEDS: BEER 1 CAN PO SCH ×3 (08:34→20:43)
[2021-03-27] MEDS: ATENOLOL 25 MG TABLET PO SCH (08:35)
[2021-03-27] MEDS: rifAXIMin 550 MG TABLET PO SCH ×2 (08:35→20:43)
[2021-03-27] MEDS: FOLIC ACID 1 MG TAB PO SCH (08:35)
[2021-03-27] MEDS: THIAMINE HCL 100 MG TAB PO SCH (08:36)
[2021-03-27] MEDS: LACTULOSE SYRUP 30 GM/45 ML UDP PO SCH ×3 (08:37→19:34)
[2021-03-27 09:46] LABS: BUN Creatinine Ratio 7.5 (10-20); Calcium 7.9 mg/dl (8.5-10.1); Creatinine Clr Calc Pharmacy 77.3 ml/min; Est GFR (African American) 110.8 ml/min; Est GFR (Non-African American) 95.6 ml/min; Potassium 4.3 mmol/L (3.5-5.1)
--- NOTE | 2021-03-27 13:05 | Electrocardiogram Report ---
Test Reason : Blood Pressure : / mmHG Vent. Rate : 073 BPM Atrial Rate : 073 BPM P-R Int : 104 ms QRS Dur : 084 ms QT Int : 422 ms P-R-T Axes : 086 090 -37 degrees QTc Int : 464 ms Poor data quality, interpretation may be adversely affected Sinus rhythm with Premature atrial complexes Right ventricular hypertrophy with repolarization abnormality T wave abnormality, consider inferior ischemia Abnormal ECG When compared with ECG of 26-MAR-2021 05:30, (unconfirmed) Premature atrial complexes are now Present T wave inversion no longer evident in Lateral leads Confirmed by Clement Ceballos ([id number]) on 03/27/2021 1:05:15 PM Referred By: REFERRED SELF Confirmed By:Brady Ceballos
--- NOTE | 2021-03-27 18:51 | Hospitalist Progress Note ---
Date of Service March 27, 2021 Assessment & Plan (1) Alcohol abuse: Currently on a CIWA protocol. On beer 3 times daily. C/W thiamine, folic acid. Continues to have one-to-one. Has history of requirements of IV Precedex. Continue to work with PT/OT. Of note, patient lives with his parents. His mother is not doing so good and he wants to be home soon. He wanted to leave AMA, but after reassured him that I will discharge him tomorrow if stable, he agreed to stay in the hospital Hypokalemia/hypomagnesia: stable (2) Alcoholic cirrhosis of liver with ascites: Appreciate gastroenterology input. Patient has been noncompliant with his medications. Continue rifaximin 550 mg twice daily, lactulose 30 g 4 times daily, 640 mg daily S/p paracentesis on 03/22 with 4 L removed. No indication for antibiotics as per GI. Lasix and spironolactone were placed on hold due to low BP will consider to resume tomorrow, (3) Esophageal varices: -non compliant w/ Xifaxan -last paracentesis 12/30/20 for 3.1 L. S/p paracentesis on 03/22. No evidence of SBP. -alcohol withdrawal protocol with gabapentin, PRN Ativan -LFTs at baseline (4) Syncope: Patient had an episode of syncope following alcohol binge. No significant injuries have been identified. No further episodes in the hospital. No significant arrhythmic issues identified. PT/ OT eval (5) Chest pain: Patient presenting from home after a syncopal event in the setting of heavy alcohol use, no seizure like activity reported. EKG has been nonischemic. Cardiac enzymes are not concerning. Continue to monitor under telemetry. (6) Buttock wound: -CT abd/pelvis does not show sign of perirectal abscess. Wound does not look infected. -Patient remains afebrile. WBC is within normal limit. No indication for antibiotics at this time. -Pressure ulcer of sacral region, stage 3 POA -Appreciate wound care input. Will need follow-up with wound care clinic (7) Paroxysmal atrial fibrillation: Continue with [employer]ESS[employer] atenolol 25 mg twice daily. Rate is controlled. No indication for anticoagulation given his medication noncompliance. Remains in normal sinus rhythm. (8) Multiple thyroid nodules: -Per last discharge summary: "Recently found to have marked bilateral lobe thyroid enlargeent by CT scan during an ER visit with several nodular densities of the supracalvicular and retroclavicular region concerning for neoplastic process. He was referred to ENT but has not been compliant with this." Workup is pending. (9) History of pulmonary embolism: -Not a candidate for anticoagulation secondary to history of medical noncompliance. (10) Thrombocytopenia: Have been slowly trending down. Stable. Continue to monitor daily CBC. Hold DVT prophylaxis for now. (11) Coagulopathy: -Due to underlying liver disease -platelets at baseline -no signs of bleeding Diarrhea Mostly related to the lactulose Lactulose placed on hold today Diarrhea improved Continue monitor electrolytes Hypotension Possible related to hypovolemia due to the diarrhea Lasix and spironolactone were placed on hold BP improved Continue monitor blood pressure (12) DVT prophylaxis: -SCDs due to thrombocytopenia/coagulopathy Admission and Anticipated Discharge Date Admission Date: March 19, 2021 Subjective Patient was seen and examined for follow-up of low blood pressure and alcohol abuse Sitting in bed no distress with niece and one-to-one sitter at bedside Patient said that he is feeling much better and would like to leave AGAINST MEDICAL ADVICE He said that yesterday care for his mother After reassuring him that I will let him go tomorrow if his blood pressure improved you, he agreed to stay in the hospital for tonight Denies any chest pain, palpitation, hallucination, dizziness, shortness of breath. Review of Systems Review of Systems: All systems reviewed & are unremarkable except as noted in Subjective Physical Exam Physical Exam: General: No acute distress HENT: NCAT, MMM, EOMI Eyes: PERRLA, no nystagmus Neck: Supple, normal range of motion CVS: normal rate and rhythm Resp: b/l good breath sounds Abdomen: Soft, mild diffuse tenderness appreciated Extremities: Torrez no calf tenderness Neuro: face symmetric, no focal deficit, moves all 4 extremities, no tremor Skin: warm and dry MSK: no joint swelling/erythema Results & Data Results & Data ([facility]) Vital Signs (Past 12 Hours) Vital Signs Temp Pulse Resp BP BP Pulse Ox Pulse Ox 03/27/21 17:22 102/57 L 03/27/21 15:53 36.6 C 67 16 90/56 L 97 03/27/21 11:21 36.9 C 65 18 98/58 L 98 03/27/21 07:08 36.5 C 75 19 101/56 L 97 03/27/21 07:00 97 (1) Esophageal varices Esophageal varices type: unspecified type
[2021-03-28] MEDS: FOLIC ACID 1 MG TAB PO SCH (08:30)
[2021-03-28] MEDS: rifAXIMin 550 MG TABLET PO SCH (08:30)
[2021-03-28] MEDS: ATENOLOL 25 MG TABLET PO SCH (08:30)
[2021-03-28] MEDS: THIAMINE HCL 100 MG TAB PO SCH (08:30)
[2021-03-28] MEDS: BEER 1 CAN PO SCH (08:31)
[2021-03-28] MEDS: LACTULOSE SYRUP 30 GM/45 ML UDP PO SCH (08:31)
--- NOTE | 2021-03-28 10:56 | Hospitalist Progress Note ---
Date of Service March 28, 2021 Assessment & Plan (1) Alcohol abuse: Currently on a CIWA protocol. On beer 3 times daily. C/W thiamine, folic acid. Continues to have one-to-one. Has history of requirements of IV Precedex. Continue to work with PT/OT. Of note, patient lives with his parents. His mother is not doing so good and he wants to be home soon. He wanted to leave AMA, but after reassured him that I will discharge him tomorrow if stable, he agreed to stay in the hospital Clinically stable Hypokalemia/hypomagnesia: stable (2) Alcoholic cirrhosis of liver with ascites: Appreciate gastroenterology input. Patient has been noncompliant with his medications. Continue rifaximin 550 mg twice daily, lactulose 30 g 4 times daily, 640 mg daily S/p paracentesis on 03/22 with 4 L removed. No indication for antibiotics as per GI. Lasix and spironolactone were placed on hold due to low BP will consider to resume on discharge Will decrease Lactulose to BID (Goal to have 3-5 BM daily ) (3) Esophageal varices: -non compliant w/ Xifaxan -last paracentesis 12/30/20 for 3.1 L. S/p paracentesis on 03/22. No evidence of SBP. -alcohol withdrawal protocol with gabapentin, PRN Ativan -LFTs at baseline (4) Syncope: Patient had an episode of syncope following alcohol binge. No significant injuries have been identified. No further episodes in the hospital. No significant arrhythmic issues identified. Walked with him in the hallway without any assistance device , pt was stable Fall precaution (5) Chest pain: Patient presenting from home after a syncopal event in the setting of heavy alcohol use, no seizure like activity reported. EKG has been nonischemic. Cardiac enzymes are not concerning. Continue to monitor under telemetry. Asymptomatic (6) Buttock wound: -CT abd/pelvis does not show sign of perirectal abscess. Wound does not look infected. -Patient remains afebrile. WBC is within normal limit. No indication for antibiotics at this time. -Pressure ulcer of sacral region, stage 3 POA -Appreciate wound care input. 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 Rate is controlled. reviewed his last discharge, he was discharged on Cardizem as well 60mg TID. He has not been taking it and BP in the Low side We will not give the Cardizem for now since HR has been well control No indication for anticoagulation given his medication noncompliance. Remains in normal sinus rhythm. Continue monitor (8) Multiple thyroid nodules: -Per last discharge summary: "Recently found to have marked bilateral lobe thyroid enlargeent by CT scan during an ER visit with several nodular densities of the supracalvicular and retroclavicular region concerning for neoplastic p rocess. He was referred to ENT but has not been compliant with this." Workup is pending. (9) History of pulmonary embolism: -Not a candidate for anticoagulation secondary to history of medical noncompliance. (10) Thrombocytopenia: Have been slowly trending down. Stable. Continue to monitor daily CBC. Hold DVT prophylaxis for now. (11) Coagulopathy: -Due to underlying liver disease -platelets at baseline -no signs of bleeding Diarrhea Mostly related to the lactulose Lactulose placed on hold today Diarrhea improved Continue monitor electrolytes Hypotension Possible related to hypovolemia due to the diarrhea Lasix and spironolactone were placed on hold, will resume on discharge Continue monitor blood pressure BP stable (12) DVT prophylaxis: -SCDs due to thrombocytopenia/coagulopathy Admission and Anticipated Discharge Date Admission Date: March 19, 2021 Subjective Patient was seen and examined for follow-up of low blood pressure and alcohol abuse Sitting in bed with no distress and ready to be discharged today Pt said that he feels good today He walked in the hallway with me to prove me that his ambulation is good He had 2 bowel today so far He said that his mother is sick that he needs to leave to check on his mother Denies any chest pain, palpitation, hallucination, dizziness, shortness of breath. Review of Systems Review of Systems: All systems reviewed & are unremarkable except as noted in Subjective Physical Exam Physical Exam: General: No acute distress HENT: NCAT, MMM, EOMI Eyes: PERRLA, no nystagmus Neck: Supple, normal range of motion CVS: normal rate and rhythm Resp: b/l good breath sounds Abdomen: Soft, mild diffuse tenderness appreciated Extremities: Torrez no calf tenderness Neuro: face symmetric, no focal deficit, moves all 4 extremities, no tremor Skin: warm and dry MSK: no joint swelling/erythema Results & Data Results & Data ([facility]) Vital Signs (Past 12 Hours) Vital Signs Temp Pulse Pulse Resp BP Pulse Ox 03/28/21 07:13 76 03/28/21 07:06 36.9 C 80 18 112/69 98 03/28/21 04:17 36.8 C 77 17 107/61 96 03/27/21 22:49 70 (1) Esophageal varices Esophageal varices type: unspecified type
--- NOTE | 2021-04-06 00:13 | Discharge Summary ---
Date of Service March 28, 2021 Admission HPI Per Admitting Provider 55-year-old male with PMH alcoholic cirrhosis with ascites and esophageal varices, medical noncompliance, COPD, paroxysmal atrial fibrillation, history of pulmonary embolism, and other problems listed below who presents to the ED for evaluation after syncopal event. Patient reports that he was at home talking with his family when he suddenly felt very lightheaded and then passed out. No seizure-like activity reported. EMS was called and patient was brought to the ED for further evaluation. Patient reports ongoing chest pain for the past 2 days. Pain is located over the lower left chest/ribs. Patient also reports increasing abdominal distention. Denies abdominal pain, vomiting, nausea. No fevers or chills. Denies urinary symptoms. Patient reports he continues to drink " a large amount" of alcohol every day. Reports drinking four 32 ounce beers before coming to the hospital today. Patient also reports a painful buttocks wound. Reports this has been spontaneously draining. In the ED, initial troponin is negative, EKG without acute ST changes. Labs unremarkable/at patient's baseline. Alcohol level 348. Patient was given IVF and IV morphine. Admission Exam Per Admitting Provider Constitutional: WD/WN, vitals as above Eyes: PERRL, conjunctivae normal, anicteric sclerae ENMT: external ear and nose normal, oropharynx normal Respiratory: normal respiratory effort, lungs clear to auscultation Cardiovascular: regular rate and regular rhythm Vessels: normal peripheral pulses Extremities: no edema Gastrointestinal:normal bowel sounds, soft, nontender, no hepatosplenomegaly, + abdomen distended Percussion/Palpation: + ascites Musculoskeletal: no cyanosis or clubbing, extremities motor strength 5/5 Skin: no rashes, warm and dry + wound (open wound noted above anus w/ some purulent drainage, tender to touch ) Neurologic: PERRL, EOMI, accommodation nl, no face palsy, no dysarthria Psychiatric: A+Ox3, euthymic affect Principal Diagnosis Alcohol abuse: Hypokalemia hypomagnesia: Alcoholic cirrhosis of liver with ascites: Esophageal varices: Syncope: Chest pain: Buttock wound: Paroxysmal atrial fibrillation: Multiple thyroid nodules: History of pulmonary embolism: Thrombocytopenia: Coagulopathy: Diarrhea Discharge Exam General: No acute distress HENT: NCAT, MMM, EOMI Eyes: PERRLA, no nystagmus Neck: Supple, normal range of motion CVS: normal rate and rhythm Resp: b/l good breath sounds Abdomen: Soft, mild diffuse tenderness appreciated Extremities: Torrez no calf tenderness Neuro: face symmetric, no focal deficit, moves all 4 extremities, no tremor Skin: warm and dry MSK: no joint swelling/erythema Discharge Data Allergies Allergy/AdvReac Type Severity Reaction Status Date / Time fentanyl Allergy Intermediate RASH ALL Verified 03/19/21 15:45 OVER BODY Consultations 03/19/21 15:57 ED Decision to Admit Stat 03/19/21 19:36 Consult Gastroenterology Routine Ordered Studies 03/19/21 16:27 CT abd pelvis wo con Stat 03/21/21 07:00 US paracentesis abd w/image Routine PARACENTESIS UNDER ULTRASOUND GUIDANCE CLINICAL HISTORY: Abdominal ascites COMPARISON STUDY: Abdominal CT dated 03/19/2021. PROCEDURE: The risks, benefits, and alternatives to the procedure were discussed with the patient who voiced understanding. Written informed consent was obtained. Following real-time ultrasound localization of a suitable pocket of fluid in the right lower quadrant, the abdomen was prepped and draped in the usual sterile fashion. The skin and soft tissues were anesthetized with 1% lidocaine. The sheathed paracentesis needle was inserted and approximately 4 liters of straw-colored ascitic fluid was removed by vacuum suction. The procedure was well tolerated and without immediate complication. The patient left the department in satisfactory condition. IMPRESSION: Successful ultrasound-guided paracentesis with removal of approximately 4 liters of ascitic fluid. ACT 112: Negative or not required by law. Electronically signed by: Salazar Segura M.D. 03/21/2021 10:30 AM Dictated: 03/21/21 1029Transcribed: 03/21/[address] SCAN OF THE ABDOMEN AND PELVIS WITHOUT CONTRAST CLINICAL HISTORY: Abdominal and perineal pain. COMPARISON STUDY: CT scan dated 12/30/2020 TECHNIQUE: CT scan of the abdomen and pelvis was performed from the lung bases to the proximal femurs. Images are reviewed in the axial, sagittal, and coronal planes. IV contrast was not administered for this examination. A dose lowering technique was utilized adhering to the principles of ALARA. CT DOSE: 594.98 mGy.cm FINDINGS: Lower chest: There is mild interlobular septal edema. There are basilar atelectatic changes. Liver: The liver has a cirrhotic morphology. There is hepatic steatosis. There is perihepatic ascites. There are esophageal varices. There are varices within the region of the gastrohepatic ligament. Gallbladder: Surgically absent Spleen: Normal in size and attenuation. Pancreas: No pancreatic masses are visualized in this noncontrast study. There are calcifications within the pancreatic head, likely secondary to chronic pancreatitis Adrenal glands: Unremarkable. Kidneys: No renal, ureteral, or bladder calculi are visualized. Bowel: There are no transition zones indicate bowel obstruction. There is no evidence of acute diverticulitis. The appendix appears normal. There is mild colonic wall thickening a nonspecific finding which may be secondary to hepatocellular disease. Peritoneum: There is moderate ascites which extends into a right inguinal canal and scrotum. Vasculature: There is no evidence of abdominal aortic aneurysm. There are multiple abdominal varices present. Adenopathy: None. Pelvic viscera: The bladder, and pelvic viscera are unremarkable. No perirectal abscess is visualized. Skeletal structures: There is an old left ischio pubic ring fracture. No destructive skeletal lesions are visualized. IMPRESSION: 1. Hepatic steatosis, hepatic cirrhosis, and evidence of portal hypertension with upper abdominal and paraesophageal varices 2. Persistent ascites with extension to the right inguinal canal and right scrotum. 3. No evidence of bowel obstruction. No evidence of free air. Normal appendix 4. Stable mild colonic wall thickening, likely secondary to hepatocellular disease 5. No perirectal abscess is visualized as was clinically queried ACT 112: Negative or not required by law. Electronically signed by: Charlie Kumar M.D. 03/19/2021 5:12 PM Dictated: 03/19/211700Transcribed: 03/19/211700 XR chest 1V portable CLINICAL HISTORY: Atypical chest pain COMPARISON STUDY: 02/24/2021 FINDINGS: The heart is mildly enlarged there is enlargement central pulmonary arteries suggesting pulmonary arterial hypertension.[There is a left-sided thoracic inlet mass consistent with a thyroid goiter. There is no focal pulmonary consolidation. Slightly prominent basilar markings are likely atelectatic. There is mild mediastinal prominence. Trace pleural effusions are suspected IMPRESSION: 1. Left-sided thoracic inlet mass consistent with a thyroid goiter 2. Large central pulmonary arteries suggesting pulmonary to hypertension 2. Suspected trace pleural effusions 4. No evidence of focal pulmonary consolidation ACT 112: Negative or not required by law. Electronically signed by: Charlie Kumar M.D. 03/19/2021 2:04 PM Dictated: 03/19/21 1400Transcribed: 03/19/21 1400 Hospital Course (1) Alcohol abuse: Currently on a CIWA protocol. On beer 3 times daily. C/W thiamine, folic acid. Continues to have one-to-one. Has history of requirements of IV Precedex. Continue to work with PT/OT. Of note, patient lives with his parents. His mother is not doing so good and he wants to be home soon. He wanted to leave AMA, but after reassured him that I will discharge him tomorrow if stable, he agreed to stay in the hospital Clinically stable Hypokalemia/hypomagnesia: stable (2) Alcoholic cirrhosis of liver with ascites: Appreciate gastroenterology input. Patient has been noncompliant with his medications. Continue rifaximin 550 mg twice daily, lactulose 30 g 4 times daily, 640 mg daily S/p paracentesis on 03/22 with 4 L removed. No indication for antibiotics as per GI. Lasix and spironolactone were placed on hold due to low BP will consider to resume on discharge Will decrease Lactulose to BID (Goal to have 3-5 BM daily ) (3) Esophageal varices: -non compliant w/ Xifaxan -last paracentesis 12/30/20 for 3.1 L. S/p paracentesis on 03/22. No evidence of SBP. -alcohol withdrawal protocol with gabapentin, PRN Ativan -LFTs at baseline (4) Syncope: Patient had an episode of syncope following alcohol binge. No significant injuries have been identified. No further episodes in the hospital. No significant arrhythmic issues identified. Walked with him in the hallway without any assistance device , pt was stable Fall precaution (5) Chest pain: Patient presenting from home after a syncopal event in the setting of heavy alcohol use, no seizure like activity reported. EKG has been nonischemic. Cardiac enzymes are not concerning. Continue to monitor under telemetry. Asymptomatic (6) Buttock wound: -CT abd/pelvis does not show sign of perirectal abscess. Wound does not look infected. -Patient remains afebrile. WBC is within normal limit. No indication for antibiotics at this time. -Pressure ulcer of sacral region, stage 3 POA -Appreciate wound care input. Will need follow-up with wound care clinic (7) Paroxysmal atrial fibrillation: Continue with [employer]ARMENT atenolol 25 mg daily. Rate is controlled. reviewed his last discharge, he was discharged on Cardizem as well 60mg TID. He has not been taking it and BP in the Low side We will not give the Cardizem for now since HR has been well control No indication for anticoagulation given his medication noncompliance. Remains in normal sinus rhythm. Continue monitor (8) Multiple thyroid nodules: -Per last discharge summary: "Recently found to have marked bilateral lobe thyroid enlargeent by CT scan during an ER visit with several nodular densities of the supracalvicular and retroclavicular region concerning for neoplastic process. He was referred to ENT but has not been compliant with this." Workup is pending. (9) History of pulmonary embolism: -Not a candidate for anticoagulation secondary to history of medical noncompliance. (10) Thrombocytopenia: Have been slowly trending down. Stable. Continue to monitor daily CBC. Hold DVT prophylaxis for now. (11) Coagulopathy: -Due to underlying liver disease -platelets at baseline -no signs of bleeding Diarrhea Mostly related to the lactulose Lactulose placed on hold today Diarrhea improved Continue monitor electrolytes Hypotension Possible related to hypovolemia due to the diarrhea Lasix and spironolactone were placed on hold, will resume on discharge Continue monitor blood pressure BP stable (12) DVT prophylaxis: -SCDs due to thrombocytopenia/coagulopathy Total Time Total Time Spent Total Time Spent (In Minutes): 35 minutes Total Time Includes: Examination of the Patient, Discharge Planning, Medication Reconciliation, Communication With Other Providers and Other Discharge Plan Discharge Items Patient Disposition: Home - Self-Care Reason For Visit: SYNCOPE, ETOH INTOXICATION Discharge Diagnosis: Alcohol abuse: Hypokalemia hypomagnesia: Alcoholic cirrhosis of liver with ascites: Esophageal varices: Syncope: Chest pain: Buttock wound: Paroxysmal atrial fibrillation: Multiple thyroid nodules: History of pulmonary embolism: Thrombocytopenia: Coagulopathy: Diarrhea Activity: Resume your previous activity Non-emergency contact: Primary Care Provider and Customer Leader Call non-emergency contact if: you have any medication questions Follow-up/Referrals: [facility] [Other] - 04/05/21 2:00 pm Jean Dave MD [Primary Care Provider] - (Date & Time 04/05/2021 11:00 AM Provider Michael Izaguirre MD [facility] ) Diet: Heart Healthy and Low Sodium (2gm) Addtl Attending Provider Instructions: Follow up with your primary care provider Dr. Dave with 1 week Follow up with ENT to arrange for the work up for the multiple thyroid nodules Follow up with wound care clinic. Continue daily wound care. No sitting for long period of time. turn at least every 2 hours while lying in bed to avoid pressure ulcer Follow up with volunteer services assistant, regarding your liver disease. Recommend to take vitamins thiamine and folic acid daily as these get depleted with alcohol use. Fall precaution Continue monitor your blood pressure and your heart rate Continue Lactulose with goal to have 3 to 5 bowel movement daily Check BMP within 1 week to monitor your electrolytes and renal function Pending Studies at Discharge: No Stand-Alone Forms: My [facility] REVENTIVE, Smoking Cessation Medications and DC Order Prescriptions: New atenolol 25 mg Tablet 25 mg PO QAM 30 Days Qty: 30 RF: 0 spironolactone 25 mg Tablet 12.5 mg PO QAM 30 Days Qty: 15 RF: 0 Xifaxan 550 mg Tablet 550 mg PO BID 30 Days Qty: 60 RF: 0 lactulose 20 gram/30 mL Solution 20 ml PO BID Qty: 2880 RF: 0 thiamine HCl (vitamin B1) [Vitamin B-1] 100 mg Tablet 100 mg PO QAM 30 Days Qty: 30 RF: 0 folic acid 1 mg Tablet 1 mg PO QAM 30 Days Qty: 30 RF: 0 furosemide [Lasix] 20 mg tablet 20 mg PO DAILY Qty: 30 RF: 0 No Action No Known Home Medications RF: 0 Discharge Orders: Discharge Order (Routine); Ordered 03/28/21 Ordered By: Richar Escobedo Admission Data Admit Date/Time: 03/19/21 16:26 Attending Provider: Richar Escobedo Admit Provider: Joseluis Mike Primary Care Provider: Jean Dave Other Providers: Joseluis Mike ; Homero Guerrero ; Soila Lee Other Interventions: Discharge Summary Assessment (RN) Last Done: 03/28/21 11:36
== END 2021-03-28 11:49 | disposition home or self-care (01) | DRG 432 ==
LOC: ED 12:38 → 2E 16:26 → SUATTDRO 16:26 → 2E 18:31

== ENCOUNTER 2021-04-21 16:15 | Inpatient (IN) ==
[2021-04-21] MEDS ORDERED: SODIUM CHLORIDE 0.9% 500 ML IV STA (18:13)
--- NOTE | 2021-04-21 18:22 | Emergency Department Note ---
Impression & Plan Left-sided chest pain, Generalized abdominal pain, ETOH abuse, Syncope ED Provider Note INFORMANT: Patient ED PROVIDER(S): Sanket Reyes MD CHIEF COMPLAINT: Syncope PLAN: Disposition: Admitted Condition: Good Outpatient prescription management: none Referral: None MEDICAL DECISION MAKING: Patient presented with complaints of chest pain, abdominal pain, and syncope. The patient abuses alcohol heavily. He had stable vital signs on examination. He does have moderate ascites and fluid extending into the right scrotum. He also has stable appearing sacral wounds. Patient was given a dose of IV morphine for symptom control. The patient's ECG did not show any acute ischemia. He does have a prolonged QT interval. The patient's labs revealed a mild anemia and thrombocytopenia on CBC. His INR was mildly elevated but stable. His bilirubin was also moderately elevated but less than prior. LFTs are otherwise minimally elevated but without significant change. The patient had a negative troponin. His alcohol level was significantly elevated over 270 mg/dL. Monitoring was unremarkable. Given the current issues the patient will benefit from further management in the hospital. Head CT did not reveal any acute findings. CT scan of the abdomen pelvis reveals the ascites and fluid extending into the right groin. No other acute pathology was noted. The patient's chest x-ray is negative for acute pathology. Consultation was made with Dr. Cayden Salazar, [facility] hospitalist service. Triage Nursing notes reviewed and agree them. Vital Signs: reviewed and remarkable for no significant abnormalities Differential diagnosis: Cardiac ischemia, aortic dissection, pulmonary embolism, pneumothorax, pneumonia, pericarditis, myocarditis, esophageal rupture, GERD, cholecystitis, pancreatitis, musculoskeletal, as well as other pathologies. Diagnostics interpreted by me: ECG: Rate:97 Rhythm: sinus Stewart:Normal QRS:Normal ST segements:No elevation or depression Other:+ PACs , No PVCs. Prolonged QT Cardiac Monitoring: Cardiac monitoring ordered by me: The patient was placed on continuous cardiac monitoring and observed. It revealed a sinus rhythm at 95 beats per minute without evidence of dysrhythmia. Imaging studies: CT and x-ray imaging as above. I refer you to the EMR for further details. HPI: The patient is a 55 year old male who presents to the Emergency Room with complaints of left chest pain. This started 6 days ago and is worsening. The patient also notes the following associated symptoms, generalized abdominal pain, right hernia pain, syncope yesterday, dark urine. The patient has found no relieving factors. Current pain is rated as 10/10. Patient has hx of etoh abuse and continues to drink. Patient was sitting on couch when syncope occurred . Pt denies trauma, headache, fevers, chills, diaphoresis, visual changes, neck pain, breathing difficulties, nausea, vomiting, back pain, melena, hematochezia, urinary symptoms, numbness, weakness, lymphadenopathy, rash, or other complaints. ROS: See above HPI for pertinent positives & negatives. A total of 10 systems reviewed and were otherwise negative. PAST MEDICAL HISTORY:See Below , ETOH abuse, cirrhosis PAST SURGICAL HISTORY:See Below, FAMILY HISTORY:See Below SOCIAL HISTORY:See Below, +etoh HOME MEDICATIONS:See Below ALLERGIES:See Below VITALS:See Below PHYSICAL EXAMINATION: GENERAL: Awake, alert, uncomfortable-appearing, in no distress HENT: Normocephalic, atraumatic. Oropharynx unremarkable. Poor dentition. EYES: Normal conjunctiva. Sclera non-icteric. NECK: Inspection normal. Non-tender. Supple. No nuchal rigidity. FROM. No m asses. RESPIRATORY: Clear to auscultation. No wheezes. No rales. Normal respiratory effort. CARDIAC: Normal rate. Normal rhythm. No murmurs. No rubs. Extremities warm and well perfused. Pulses equal. No JVD. GI: Soft, mildly-distended. diffuse tenderness to palpation. +fluid wave. No rebound or guarding. No masses. RECTAL: Deferred. MUSCULOSKELETAL: Atraumatic. Chest examination reveals no tenderness. The back is symmetrical on inspection without obvious abnormality. There is no CVA tenderness to palpation. No joint edema. LOWER EXTREMITIES: Calves are equal size bilaterally and non-tender. +1 edema. No discoloration. NEURO: Normal sensorium. No sensory or motor deficits noted. SKIN: No rash or jaundice noted. Sanket Reyes MD Past Med/Surg History Medical History Alcohol dependence Alcoholic cirrhosis of liver with ascites Chronic anxiety Chronic obstructive pulmonary disease Chronic pancreatitis COVID-19 Esophageal varices History of pulmonary embolism Hypertension Hypothyroidism On home oxygen therapy Paroxysmal atrial fibrillation Portal hypertension Portal vein thrombosis Pulmonary embolism Pulmonary HTN Seizure Tobacco abuse Surgical History H/O colonoscopy History of cholecystectomy "2009" History of esophagogastroduodenoscopy (EGD) "12/15/2014- Small varices. Erosive duodenitis." 01/09/17 - esophageal varicies, gastritis Family History Mother Diabetes Father Coronary heart disease Social History Smoking Status: Current every day smoker Tobacco Type: Cigarettes Cigarettes Per Day: 10; Second Hand Exposure: No; Hx Alcohol Use: Yes Alcohol type: beer Alcohol Intake Frequency Comment: 4 32 oz [employer] daily Hx Substance Use: No Preferred Language: Slovak Communication Ability: Effective Visual Impairment: No Limitations Aqu[employer]itat [employer]ologist Required: No Beliefs That Will Affect Care: None marital status: Current Living Situation: Family Current Living Situation Comment: parents Other Information That Helps Us Care for You: No Feels Safe at Home: Yes Safety Concerns: Feels Safe At This Time Assistive Devices: None Allergies Allergies Allergy/AdvReac Type Severity Reaction Status Date / Time fentanyl Allergy Intermediate RASH ALL Verified 04/21/21 19:12 OVER BODY Home Meds Home Medications Medication Instructions Recorded Confirmed No Known Home Medications 04/21/21 04/21/21 Results & Data (ED) Vital Signs Vital Signs - 24 hr 04/21/21 16:18 04/21/21 18:30 04/21/21 18:41 Temperature 36.5 C Temperature Source Temporal Artery Scan Pulse Rate - Lying Pulse Rate - Sitting Pulse Rate - Standing Pulse Rate 95 H 81 Pulse Rate from SpO2 Sensor 82 Respiratory Rate 20 18 Blood Pressure - Lying Blood Pressure - Sitting Blood Pressure- Standing Blood Pressure 118/76 141/86 H Blood Pressure Mean 90 104 Pulse Oximetry 97 99 Oxygen Delivery Method Room Air Room Air Sepsis Recent Fever Within 48 Hours No Sepsis New/Unexplained Change in Mental Status N/A Sepsis Action Taken by Nursing No Action Required 04/21/21 19:00 04/21/21 19:30 04/21/21 20:00 Temperature Temperature Source Pulse Rate - Lying Pulse Rate - Sitting Pulse Rate - Standing Pulse Rate 80 86 Pulse Rate from SpO2 Sensor 80 86 86 Respiratory Rate 17 16 Blood Pressure - Lying Blood Pressure - Sitting Blood Pressure- Standing Blood Pressure 128/86 112/80 Blood Pressure Mean 100 124 90 Pulse Oximetry 97 92 94 Oxygen Delivery Method Sepsis Recent Fever Within 48 Hours Sepsis New/Unexplained Change in Mental Status Sepsis Action Taken by Nursing 04/21/21 20:30 04/21/21 20:49 04/21/21 20:50 Temperature Temperature Source Pulse Rate - Lying Pulse Rate - Sitting Pulse Rate - Standing Pulse Rate 90 92 H 103 H Pulse Rate from SpO2 Sensor 89 92 H 104 H Respiratory Rate 18 15 19 Blood Pressure - Lying Blood Pressure - Sitting Blood Pressure- Standing Blood Pressure 130/98 129/91 140/91 Blood Pressure Mean 108 103 107 Pulse Oximetry 95 94 94 Oxygen Delivery Method Sepsis Recent Fever Within 48 Hours Sepsis New/Unexplained Change in Mental Status Sepsis Action Taken by Nursing 04/21/21 20:56 04/21/21 21:02 Temperature Temperature Source Pulse Rate - Lying 94 H Pulse Rate - Sitting 103 H Pulse Rate - Standing 104 H Pulse Rate 86 Pulse Rate from SpO2 Sensor Respiratory Rate 18 Blood Pressure - Lying 129/91 Blood Pressure - Sitting 136/98 Blood Pressure- Standing 140/91 Blood Pressure Blood Pressure Mean Pulse Oximetry Oxygen Delivery Method Sepsis Recent Fever Within 48 Hours Sepsis New/Unexplained Change in Mental Status Sepsis Action Taken by Nursing Laboratory Data Result diagrams: 04/21/21 18:31 04/21/21 18:31 Lab Results 04/21/21 04/21/21 04/21/21 Range/Units 18:30 18:30 18:31 WBC 5.68 (4.8-10.8) K/uL RBC 3.39 L (4.7-6.1) M/uL Hgb 13.0 L (14.0-18.0) g/dL Hct 38.4 L (42-52) % MCV 113.3 H (80-100) fL MCH 38.3 H (25-34) pg MCHC 33.9 (32-36) g/dL RDW Std Deviation 56.0 H (36.4-46.3) fL RDW Coeff of Hernandez 13.6 (11.5-14.5) % Plt Count 77 L (130-400) K/uL MPV 11.5 H (7.4-10.4) fL Immature Gran % (Auto) 0.2 % Neut % (Auto) 41.1 % Lymph % (Auto) 38.6 % [place] % (Auto) 12.7 % Eos % (Auto) 6.0 % Baso % (Auto) 1.4 % Neut # (Auto) 2.34 (1.4-6.5) K/uL Lymph # (Auto) 2.19 (1.2-3.4) K/uL [place] # (Auto) 0.72 H (0.11-0.59) K/uL Eos # (Auto) 0.34 (0-0.5) K/uL Baso # (Auto) 0.08 (0-0.2) K/uL Immature Gran # (Auto) 0.01 (0.00-0.02) K/uL Macrocytosis Present PT (9.0-12.0) Seconds INR (0.9-1.1) APTT (21.0-31.0) Seconds PTT Ratio Sodium (136-145) mmol/L Potassium (3.5-5.1) mmol/L Chloride (98-107) mmol/L Carbon Dioxide (21-32) mmol/L Anion Gap (3-11) BUN (7-18) mg/dl Creatinine (0.6-1.4) mg/dl Est Cr Clr Drug Dosing Est GFR ( Amer) ml/min Est GFR (Non-Af Amer) ml/min BUN/Creatinine Ratio (10-20) Glucose (70-99) mg/dl Calcium (8.5-10.1) mg/dl Magnesium (1.8-2.4) mg/dl Total Bilirubin (0.2-1) mg/dl AST (15-37) U/L ALT (12-78) U/L Alkaline Phosphatase (45-117) U/L Troponin I (0-0.045) ng/ml Total Protein (6.4-8.2) gm/dl Albumin (3.4-5.0) gm/dl Globulin (2.5-4.0) gm/dl Albumin/Globulin Ratio (0.9-2) Lipase (73-393) U/L TSH (0.300-4.500) uIu/ml Free T4 (0.8-1.6) ng/dl Ethyl Alcohol mg/dL (0-3) mg/dl COVID-19 Eval Order Covid19 at [facility] SARS-CoV-2 (PCR) NEGATIVE (Negative) Blood Type Antibody Screen 04/21/21 04/21/21 04/21/21 Range/Units 18:31 18:31 18:34 WBC (4.8-10.8) K/uL RBC (4.7-6.1) M/uL Hgb (14.0-18.0) g/dL Hct (42-52) % MCV (80-100) fL MCH (25-34) pg MCHC (32-36) g/dL RDW Std Deviation (36.4-46.3) fL RDW Coeff of Hernandez (11.5-14.5) % Plt Count (130-400) K/uL MPV (7.4-10.4) fL Immature Gran % (Auto) % Neut % (Auto) % Lymph % (Auto) % [place] % (Auto) % Eos % (Auto) % Baso % (Auto) % Neut # (Auto) (1.4-6.5) K/uL Lymph # (Auto) (1.2-3.4) K/uL [place] # (Auto) (0.11-0.59) K/uL Eos # (Auto) (0-0.5) K/uL Baso # (Auto) (0-0.2) K/uL Immature Gran # (Auto) (0.00-0.02) K/uL Macrocytosis PT 16.7 H (9.0-12.0) Seconds INR 1.7 H (0.9-1.1) APTT 33.7 H (21.0-31.0) Seconds PTT Ratio 1.3 Sodium 143 (136-145) mmol/L Potassium 3.4 L (3.5-5.1) mmol/L Chloride 111 H (98-107) mmol/L Carbon Dioxide 26 (21-32) mmol/L Anion Gap 6.0 (3-11) BUN 5 L (7-18) mg/dl Creatinine 0.67 (0.6-1.4) mg/dl Est Cr Clr Drug Dosing Not Reportable Est GFR ( Amer) 124.5 ml/min Est GFR (Non-Af Amer) 107.4 ml/min BUN/Creatinine Ratio 7.6 L (10-20) Glucose 110 H (70-99) mg/dl Calcium 7.8 L (8.5-10.1) mg/dl Magnesium 1.8 (1.8-2.4) mg/dl Total Bilirubin 4.3 H (0.2-1) mg/dl AST 77 H (15-37) U/L ALT 30 (12-78) U/L Alkaline Phosphatase 130 H (45-117) U/L Troponin I 0.023 (0-0.045) ng/ml Total Protein 8.5 H (6.4-8.2) gm/dl Albumin 1.6 L (3.4-5.0) gm/dl Globulin 6.9 H (2.5-4.0) gm/dl Albumin/Globulin Ratio 0.2 L (0.9-2) Lipase 270 (73-393) U/L TSH (0.300-4.500) uIu/ml Free T4 (0.8-1.6) ng/dl Ethyl Alcohol mg/dL 271.8 H (0-3) mg/dl COVID-19 Eval Order SARS-CoV-2 (PCR) (Negative) Blood Type Antibody Screen 04/21/21 04/21/21 Range/Units 20:57 21:07 WBC (4.8-10.8) K/uL RBC (4.7-6.1) M/uL Hgb (14.0-18.0) g/dL Hct (42-52) % MCV (80-100) fL MCH (25-34) pg MCHC (32-36) g/dL RDW Std Deviation (36.4-46.3) fL RDW Coeff of Hernandez (11.5-14.5) % Plt Count (130-400) K/uL MPV (7.4-10.4) fL Immature Gran % (Auto) % Neut % (Auto) % Lymph % (Auto) % [place] % (Auto) % Eos % (Auto) % Baso % (Auto) % Neut # (Auto) (1.4-6.5) K/uL Lymph # (Auto) (1.2-3.4) K/uL [place] # (Auto) (0.11-0.59) K/uL Eos # (Auto) (0-0.5) K/uL Baso # (Auto) (0-0.2) K/uL Immature Gran # (Auto) (0.00-0.02) K/uL Macrocytosis PT (9.0-12.0) Seconds INR (0.9-1.1) APTT (21.0-31.0) Seconds PTT Ratio Sodium (136-145) mmol/L Potassium (3.5-5.1) mmol/L Chloride (98-107) mmol/L Carbon Dioxide (21-32) mmol/L Anion Gap (3-11) BUN (7-18) mg/dl Creatinine (0.6-1.4) mg/dl Est Cr Clr Drug Dosing Est GFR ( Amer) ml/min Est GFR (Non-Af Amer) ml/min BUN/Creatinine Ratio (10-20) Glucose (70-99) mg/dl Calcium (8.5-10.1) mg/dl Magnesium (1.8-2.4) mg/dl Total Bilirubin (0.2-1) mg/dl AST (15-37) U/L ALT (12-78) U/L Alkaline Phosphatase (45-117) U/L Troponin I 0.025 (0-0.045) ng/ml Total Protein (6.4-8.2) gm/dl Albumin (3.4-5.0) gm/dl Globulin (2.5-4.0) gm/dl Albumin/Globulin Ratio (0.9-2) Lipase (73-393) U/L TSH 13.200 H (0.300-4.500) uIu/ml Free T4 1.10 (0.8-1.6) ng/dl Ethyl Alcohol mg/dL (0-3) mg/dl COVID-19 Eval Order SARS-CoV-2 (PCR) (Negative) Blood Type O Positive Antibody Screen NEGATIVE Administered Medications Albumin Human (Albumin 25%) 12.5 gm in 50 mls @ 50 mls/hr IV Q6H ARMANDO Stop: 04/24/21 23:24 Last Infusion: 04/22/21 00:58 Dose: 0 mls/hr Documented by: [id number] Admin: 04/22/21 00:06 Dose: 50 mls/hr Documented by: [id number] Discontinued Medications Gabapentin (Gabapentin 1200mg Alcohol Withdrawal Load) 1 ea PO NOW STA; Protocol Stop: 04/21/21 21:17 Last Admin: 04/21/21 22:18 Dose: Not Given Documented by: [id number] Gabapentin (Gabapentin 600 Mg Tab) 1,200 mg PO NOW STA Stop: 04/21/21 21:53 Last Admin: 04/21/21 22:04 Dose: 1,200 mg Documented by: [id number] Sodium Chloride (Nss) 500 mls @ 999 mls/hr IV .Q31M STA Stop: 04/21/21 18:43 Last Infusion: 04/21/21 19:05 Dose: 0 mls/hr Documented by: [id number] Admin: 04/21/21 18:32 Dose: 999 mls/hr Documented by: [id number] Thiamine HCl 100 mg/ Syringe 10 mls @ 2 mls/min IV NOW STA Stop: 04/21/21 21:04 Last Admin: 04/21/21 22:04 Dose: 2 mls/min Documented by: [id number] Ceftriaxone Sodium (Rocephin) 1,000 mg in 50 mls @ 100 mls/hr IV NOW STA Stop: 04/21/21 21:30 Last Infusion: 04/21/21 21:43 Dose: 0 mls/hr Documented by: [id number] Admin: 04/21/21 21:13 Dose: 100 mls/hr Documented by: [id number] Phytonadione 5 mg/ Sodium (Chloride) 50.5 mls @ 101 mls/hr IV ONE ONE Stop: 04/22/21 00:14 Last Infusion: 04/22/21 01:33 Dose: 0 mls/hr Documented by: [id number] Admin: 04/22/21 00:58 Dose: 101 mls/hr Documented by: [id number] Magnesium Sulfate/Dextrose (Magnesium Sulfate / D5w) 1 gm in 100 mls @ 50 mls/hr IV ONE ONE Stop: 04/22/21 01:24 Last Admin: 04/22/21 01:32 Dose: 50 mls/hr Documented by: [id number] Ipratropium Beemer (Ipratropium Beemer Neb Soln 0.02% 2.5 Ml Vial) 0.5 mg INH NOW STA Stop: 04/21/21 21:15 Last Admin: 04/21/21 21:21 Dose: 0.5 mg Documented by: [id number] Levalbuterol HCl (Levalbuterol 1.25mg/0.5ml Neb) 1.25 mg INH NOW STA Stop: 04/21/21 21:15 Last Admin: 04/21/21 21:21 Dose: 1.25 mg Documented by: [id number] Morphine Sulfate (Morphine Sulfate 4 Mg/Ml 1 Ml Carp\\Vial) 4 mg IV NOW STA Stop: 04/21/21 18:31 Last Admin: 04/21/21 18:37 Dose: 4 mg Documented by: [id number] Oxycodone HCl (Oxycodone Hcl Ir 5 Mg Tab (Immediate Release)) 5 mg PO NOW STA Stop: 04/21/21 21:02 Last Admin: 04/21/21 21:13 Dose: 5 mg Documented by: [id number] Potassium Chloride (Potassium Chloride Crtab 20 Meq Tabcr) 40 meq PO NOW STA Stop: 04/21/21 21:17 Last Admin: 04/21/21 22:24 Dose: 40 meq Documented by: [id number] Imaging Data Radiologist's Impression: Chest X-Ray 04/21/21 18:13 XR chest 1V portable HISTORY: Atypical chest pain. COMPARISON: Chest 03/19/2021. FINDINGS: No pneumothorax. No pleural effusions. The cardiac silhouette remains normal in size. Right tracheal deviation due to the left-sided goiter. This remains unchanged. Enlargement of the central pulmonary arteries is also unchanged and is consistent with pulmonary artery hypertension. Mild interstitial thickening which is likely chronic. No new focal lung consolidations to suggest pneumonia. No evidence for pulmonary edema. IMPRESSION: 1. No change in the pulmonary arterial hypertension and chronic interstitial thickening. 2. No new focal lung consolidations to suggest pneumonia. 3. No evidence for pulmonary edema. ACT 112: Negative or not required by law. Electronically signed by: Villa Clinton M.D. 04/21/2021 6:31 PM Abdomen/Pelvis CT 04/21/21 18:[address] WITHOUT CONTRAST CT DOSE: 530.42 mGy.cm HISTORY: Generalized Abdominal pain, ETOH abuse, hx of hernia ascites TECHNIQUE: Multiaxial CT images of the abdomen and pelvis were performed without contrast. A dose lowering technique was utilized adhering to the principles of ALARA. COMPARISON STUDY: Abdomen and pelvis CT 03/19/2021. FINDINGS: Mild interstitial thickening at the lung bases, unchanged. There is a stable 4 mm nodule within the base of the right lower lobe on image 71. No pneumoperitoneum. No pneumatosis. Old, healed left pubic ring fracture is again noted. No suspicious lytic are blastic osseous lesions. Moderate body wall edema. Small fat/fluid containing umbilical hernia is again noted. Moderate ascites with extension of fluid into the right inguinal canal and right scrotum. This is not significantly changed. Cirrhotic liver with evidence for portal hypertension demonstrated by multiple upper abdominal and paraesophageal varices. The spleen is normal in size. The adrenal glands and pancreas are unremarkable. No renal stones or hydronephrosis. Prior cholecystectomy. No retroperitoneal lymphadenopathy. The bladder is unremarkable. Suboptimal evaluation for bowel pathology due to the lack of intravenous and oral contrast. However, there is no definite bowel wall thickening or obstruction. Colonic diverticulosis. No evidence for acute diverticulitis. Normal appendix. IMPRESSION: 1. No change in the ascites with extension into the right inguinal canal and right scrotum. 2. Hepatic cirrhosis with evidence of portal hypertension. 3. No definite bowel wall thickening or obstruction. 4. Normal appendix. 5. Stable 4 mm nodule within the right lower lobe. 6. Additional findings as described above. ACT 112: Negative or not required by law. Electronically signed by: Villa Clinton M.D. 04/21/2021 7:58 PM Discharge Plan Visit Data Chief Complaint: Syncope Stated Complaint: CHEST PAIN, SYNCOPE ED Provider: Sanket Reyes Discharge Problem: Left-sided chest pain, Generalized abdominal pain, ETOH abuse, Syncope Discharge Instructions Interventions: ED Discharge Assessment Last Done: 04/21/21 23:15
[2021-04-21] MEDS ORDERED: MoRPHine SULFATE 4 MG/ML 1 ML CARP\\VIAL IV STA (18:30)
--- NOTE | 2021-04-21 18:33 | XRay Report ---
XR chest 1V portable HISTORY: Atypical chest pain. COMPARISON: Chest 03/19/2021. FINDINGS: No pneumothorax. No pleural effusions. The cardiac silhouette remains normal in size. Right tracheal deviation due to the left-sided goiter. This remains unchanged. Enlargement of the central pulmonary arteries is also unchanged and is consistent with pulmonary artery hypertension. Mild inter stitial thickening which is likely chronic. No new focal lung consolidations to suggest pneumonia. No evidence for pulmonary edema. IMPRESSION: 1. No change in the pulmonary arterial hypertension and chronic interstitial thickening. 2. No new focal lung consolidations to suggest pneumonia. 3. No evidence for pulmonary edema. ACT 112: Negative or not required by law. Electronically signed by: Villa Clinton M.D. 04/21/2021 6:31 PM
[2021-04-21 18:51] LABS: Hematocrit (blood only) 38.4 % (42-52); Mean Corpuscular Hemoglobin 38.3 pg (25-34); Mean Corpuscular Hgb Conc 33.9 g/dL (32-36); Mean Corpuscular Volume 113.3 fL (80-100); RDW Coefficient of Variation 13.6 % (11.5-14.5); Red Blood Count 3.39 M/uL (4.7-6.1); White Blood Count 5.68 K/uL (4.8-10.8)
[2021-04-21 18:56] LABS: Mean Platelet Volume 11.5 fL (7.4-10.4); Platelet Count 77 K/uL (130-400)
[2021-04-21 19:02] LABS: INR 1.7 (0.9-1.1); Partial Thromboplastin Ratio 1.3; Partial Thromboplastin Time 33.7 Seconds (21.0-31.0); Prothrombin Time 16.7 Seconds (9.0-12.0)
[2021-04-21 19:08] LABS: Alanine Aminotransferase 30 U/L (12-78); Albumin Level 1.6 gm/dl (3.4-5.0); Aspartate Aminotransferase 77 U/L (15-37); BUN Creatinine Ratio 7.6 (10-20); Blood Urea Nitrogen 5 mg/dl (7-18); Calcium 7.8 mg/dl (8.5-10.1); Carbon Dioxide 26 mmol/L (21-32); Chloride 111 mmol/L (98-107); Est GFR (African American) 124.5 ml/min; Est GFR (Non-African American) 107.4 ml/min; Glucose 110 mg/dl (70-99); Lipase 270 U/L (73-393); Potassium 3.4 mmol/L (3.5-5.1); Sodium 143 mmol/L (136-145)
[2021-04-21 19:09] LABS: Basophils # (auto) 0.08 K/uL (0-0.2); Basophils % (auto) 1.4 %; Eosinophils # (auto) 0.34 K/uL (0-0.5); Immature Granulocytes # (auto) 0.01 K/uL (0.00-0.02); Immature Granulocytes % (auto) 0.2 %; Lymphocytes # (auto) 2.19 K/uL (1.2-3.4); Lymphocytes % (auto) 38.6 %; Macrocytosis Present; Monocytes # (auto) 0.72 K/uL (0.11-0.59); Monocytes % (auto) 12.7 %; Neutrophils # (auto) 2.34 K/uL (1.4-6.5); Neutrophils % (auto) 41.1 %
[2021-04-21 19:13] LABS: Albumin Globulin Ratio 0.2 (0.9-2); Alkaline Phosphatase 130 U/L (45-117); Bilirubin,Total 4.3 mg/dl (0.2-1); Globulin 6.9 gm/dl (2.5-4.0); Total Protein 8.5 gm/dl (6.4-8.2); Troponin I 0.023 ng/ml (0-0.045)
--- NOTE | 2021-04-21 19:59 | CT Scan Report ---
ABDOMEN AND PELVIS CT WITHOUT CONTRAST CT DOSE: 530.42 mGy.cm HISTORY: Generalized Abdominal pain, ETOH abuse, hx of hernia ascites TECHNIQUE: Multiaxial CT images of the abdomen and pelvis were performed without contrast. A dose lo wering technique was utilized adhering to the principles of ALARA. COMPARISON STUDY: Abdomen and pelvis CT 03/19/2021. FINDINGS: Mild interstitial thickening at the lung bases, unchanged. There is a stable 4 mm nodule wi thin the base of the right lower lobe on image 71. No pneumoperitoneum. No pneumatosis. Old, healed l eft pubic ring fracture is again noted. No suspicious lytic are blastic osseous lesions. Moderate bod y wall edema. Small fat/fluid containing umbilical hernia is again noted. Moderate ascites with exten julissa of fluid into the right inguinal canal and right scrotum. This is not significantly changed. Cir rhotic liver with evidence for portal hypertension demonstrated by multiple upper abdominal and parae sophageal varices. The spleen is normal in size. The adrenal glands and pancreas are unremarkable. No renal stones or hydronephrosis. Prior cholecystectomy. No retroperitoneal lymphadenopathy. The [facility] er is unremarkable. Suboptimal evaluation for bowel pathology due to the lack of intravenous and oral contrast. However, there is no definite bowel wall thickening or obstruction. Colonic diverticulosis . No evidence for acute diverticulitis. Normal appendix. IMPRESSION: 1. No change in the ascites with extension into the right inguinal canal and right scrotum. 2. Hepatic cirrhosis with evidence of portal hypertension. 3. No definite bowel wall thickening or obstruction. 4. Normal appendix. 5. Stable 4 mm nodule within the right lower lobe. 6. Additional findings as described above. ACT 112: Negative or not required by law. Electronically signed by: Villa Clinton M.D. 04/21/2021 7:58 PM
[2021-04-21 20:44] LABS: Magnesium 1.8 mg/dl (1.8-2.4)
[2021-04-21] MEDS ORDERED: THIAMINE HCL 100 MG in SYRINGE 9 ML IV STA (21:00)
[2021-04-21] MEDS ORDERED: oxyCODONE HCL IR 5 MG TAB (IMMEDIATE RELEASE) PO STA (21:01)
[2021-04-21] MEDS ORDERED: cefTRIAXone SODIUM 1,000 MG/50 ML BAG IV STA (21:01)
[2021-04-21] MEDS ORDERED: XOPENEX/ATROVENT 1.25mg/0.5MG NEB COMBO NEB STA (21:06)
[2021-04-21] MEDS ORDERED: LEVALBUTEROL 1.25MG/0.5ML NEB INH STA (21:14)
[2021-04-21] MEDS ORDERED: IPRATROPIUM BROMIDE NEB SOLN 0.02% 2.5 ML VIAL INH STA (21:14)
[2021-04-21] MEDS ORDERED: GABAPENTIN 1200MG ALCOHOL WITHDRAWAL LOAD PO STA (21:16)
[2021-04-21] MEDS ORDERED: POTASSIUM CHLORIDE CRTAB 20 MEQ TABCR PO STA (21:16)
--- NOTE | 2021-04-21 21:18 | History & Physical Report ---
Date of Service April 21, 2021 Assessment & Plan (1) Left-sided chest pain: Plan: Minimal troponin elevation Referred pain from painful ascites, possible SBP History alcoholic cirrhosis Medication noncompliance Recurrent syncope Differentials include orthostasis, arrhythmia, obstructive cardiac pathology, seizures COPD, ongoing tobacco abuse, usual smoker's cough symptoms as per patient PAF/hx PE not on anticoagulation 2 to GI bleed, patient NSR chronic thrombocytopenia, chronic anemia, hemoglobin better than baseline secondary to hemoconcentration Hypokalemia secondary to poor p.o. intake hypothyroidism, chronic TSH elevation secondary to medication noncompliance thyroid nodules as per records, possible malignancy as per records, noncompliant with outpatient specialist recommendations Sacral wound present prior to confinement Hyperglycemia rule out DM Recurrent confinement/possible functional disability OBS PCU given to chest pain with minimal troponin elevation IV Ceftriaxone/albumin for possible SBP Diagnostic/therapeutic paracentesis in a.m. GI consult Re: Recurrent ascites Orthostatic vitals, TTE, EEG for syncope work-up WALDEMAR S, DT precautions Replace potassium Recheck TSH, initiate levothyroxine in a.m. if still elevated Wound care nurse consult for sacral wound follow-up evaluation Check hemoglobin A1c PT OT eval DVT prophylaxis. SCDs thrombocytopenia Full code Patient daughter requesting updates from providers. Ms. Antonia Gao, contact #[phone]. Text document was generated using [employer] voice recognition software. It may contain grammatical or spelling errors. Kindly contact undersigned for clarification of any documentation item in question. History of Present Illness Chief Complaint: Abdominal pain Primary Care Provider: Jean Dave MD History obtained from the patient and records. Medical history significant for alcoholic cirrhosis, COPD, ongoing tobacco/alcohol abuse, PAF/hx PE not on anticoagulation 2 to GI bleed, mood disorder, chronic thrombocytopenia, chronic anemia (baseline hemoglobin of 10-12), hypothyroidism, thyroid nodules as per records. Last confinement March 2021 for alcohol abuse and ascites status post paracentesis. 4 L removed as per documentation. Transudative fluid based on results. Patient also noted to have sacral pressure ulcer not infected prior to confinement. Patient not compliant with home discharge medications which included atenolol, spironolactone, Xifaxan, lactulose, thiamine, folic acid, and Lasix.. No PCP follow-up since discharge from the hospital. Persistent achy abdominal pain, nausea vomiting, and progressive abdominal distention upon discharge as per patient. Abdominal pain occasionally radiating to the left chest. Patient denies black/bloody stools. Usual shortness of breath with usual smoker's cough symptoms as per patient. Poor appetite. Usual achy migraine headaches as per patient. Patient daughter witnessed two syncopal events at home described as loss of consciousness for about a few minutes associated with drooling. No witnessed GTC seizures/incontinence. Medical History as above Surgical History : Cholecystectomy Family History : Leukemia, thyroid cancer, heart disease Personal/Social history : Ongoing tobacco/alcohol abuse, disabled Allergies Allergy/AdvReac Type Severity Reaction Status Date / Time fentanyl Allergy Intermediate RASH ALL Verified 04/21/21 19:12 OVER BODY Home Medications Medication Instructions Recorded Confirmed Type No Known Home Medications 04/21/21 04/21/21 History Past Med/Surg History Medical History Alcohol dependence Alcoholic cirrhosis of liver with ascites Chronic anxiety Chronic obstructive pulmonary disease Chronic pancreatitis COVID-19 Esophageal varices History of pulmonary embolism Hypertension Hypothyroidism On home oxygen therapy Paroxysmal atrial fibrillation Portal hypertension Portal vein thrombosis Pulmonary embolism Pulmonary HTN Seizure Tobacco abuse Surgical History H/O colonoscopy History of cholecystectomy "2009" History of esophagogastroduodenoscopy (EGD) "12/15/2014- Small varices. Erosive duodenitis." 01/09/17 - esophageal varicies, gastritis Family History Mother Diabetes Father Coronary heart disease Social History Smoking Status: Current every day smoker Tobacco Type: Cigarettes Cigarettes Per Day: 10; Second Hand Exposure: No; Hx Alcohol Use: Yes Alcohol type: beer Alcohol Intake Frequency Comment: 4 32 oz renner high life daily Hx Substance Use: No Preferred Language: Finnish Communication Ability: Effective Visual Impairment: No Limitations Drain Layer Required: No Beliefs That Will Affect Care: None marital status: Current Living Situation: Family Current Living Situation Comment: parents Other Information That Helps Us Care for You: No Feels Safe at Home: Yes Safety Concerns: Feels Safe At This Time Assistive Devices: None Review of Systems Review of Systems: As per HPI, all 10 systems reviewed, all other ROS negative Physical Exam Physical Exam: GENERAL: uncomfortable, chronically ill, tremulous, no respiratory distress SKIN: Pallor, warm HEENT: Pale palpebral conjunctivae, no ptosis, dry buccal mucosa NECK : Supple, thyroid enlargement, no tenderness CHEST : Decreased breath sounds, no tenderness HEART : Tachycardic, no obvious murmurs BACK : Sacral wound not examined ABDOMEN: distention, umbilical hernia, central abdominal tenderness, positive fluid wave EXTREMITIES : Minimal LE swelling, no LE tenderness, no other conspicuous deformities noted NEUROLOGIC : Coherent, no facial asymmetry, tremulous, no other gross focality Results & Data Results & Data ([facility]) Vital Signs (Past 12 Hours) Vital Signs Temp Pulse Resp BP Pulse Ox 04/21/21 20:50 103 H 19 140/91 94 04/21/21 20:49 92 H 15 129/91 94 04/21/21 20:30 90 18 130/98 95 04/21/21 20:00 86 16 112/80 94 04/21/21 19:30 92 04/21/21 19:00 80 17 128/86 97 04/21/21 18:30 81 18 141/86 H 99 04/21/21 16:18 36.5 C 95 H 20 118/76 97 Laboratory Results Laboratory Results WBC 5.68 K/uL (4.8-10.8) 04/21/21 18:31 RBC 3.39 M/uL (4.7-6.1) L 04/21/21 18:31 Hgb 13.0 g/dL (14.0-18.0) L 04/21/21 18:31 Hct 38.4 % (42-52) L 04/21/21 18:31 MCV 113.3 fL (80-100) H 04/21/21 18:31 MCH 38.3 pg (25-34) H 04/21/21 18:31 MCHC 33.9 g/dL (32-36) 04/21/21 18:31 RDW Std Deviation 56.0 fL (36.4-46.3) H 04/21/21 18:31 RDW Coeff of Hernandez 13.6 % (11.5-14.5) 04/21/21 18:31 Plt Count 77 K/uL (130-400) L 04/21/21 18:31 MPV 11.5 fL (7.4-10.4) H 04/21/21 18:31 Immature Gran % (Auto) 0.2 % 04/21/21 18:31 Neut % (Auto) 41.1 % 04/21/21 18:31 Lymph % (Auto) 38.6 % 04/21/21 18:31 Clay % (Auto) 12.7 % 04/21/21 18:31 Eos % (Auto) 6.0 % 04/21/21 18:31 Baso % (Auto) 1.4 % 04/21/21 18:31 Neut # (Auto) 2.34 K/uL (1.4-6.5) 04/21/21 18: Lymph # (Auto) 2.19 K/uL (1.2-3.4) 04/21/21 18:31 Clay # (Auto) 0.72 K/uL (0.11-0.59) H 04/21/21 18:31 Eos # (Auto) 0.34 K/uL (0-0.5) 04/21/21 18:31 Baso # (Auto) 0.08 K/uL (0-0.2) 04/21/21 18: Immature Gran # (Auto) 0.01 K/uL (0.00-0.02) 04/21/21 18:31 Macrocytosis Present 04/21/21 18:31 PT 16.7 Seconds (9.0-12.0) H 04/21/21 18:31 INR 1.7 (0.9-1.1) H 04/21/21 18:31 APTT 33.7 Seconds (21.0-31.0) H 04/21/21 18:31 PTT Ratio 1.3 04/21/21 18:31 Sodium 143 mmol/L (136-145) 04/21/21 18:31 Potassium 3.4 mmol/L (3.5-5.1) L 04/21/21 18:31 Chloride 111 mmol/L (98-107) H 04/21/21 18:31 Carbon Dioxide 26 mmol/L (21-32) 04/21/21 18:31 Anion Gap 6.0 (3-11) 04/21/21 18:31 BUN 5 mg/dl (7-18) L 04/21/21 18:31 Creatinine 0.67 mg/dl (0.6-1.4) 04/21/21 18:31 Est Cr Clr Drug Dosing Not Reportable 04/21/21 18:31 Est GFR ( Amer) 124.5 ml/min 04/21/21 18:31 Est GFR (Non-Af Amer) 107.4 ml/min 04/21/21 18:31 BUN/Creatinine Ratio 7.6 (10-20) L 04/21/21 18:31 Glucose 110 mg/dl (70-99) H 04/21/21 18:31 Calcium 7.8 mg/dl (8.5-10.1) L 04/21/21 18:31 Magnesium 1.8 mg/dl (1.8-2.4) 04/21/21 18:31 Total Bilirubin 4.3 mg/dl (0.2-1) H 04/21/21 18:31 AST 77 U/L (15-37) H 04/21/21 18:31 ALT 30 U/L (12-78) 04/21/21 18:31 Alkaline Phosphatase 130 U/L (45-117) H 04/21/21 18:31 Troponin I 0.023 ng/ml (0-0.045) 04/21/21 18:31 Total Protein 8.5 gm/dl (6.4-8.2) H 04/21/21 18:31 Albumin 1.6 gm/dl (3.4-5.0) L 04/21/21 18:31 Globulin 6.9 gm/dl (2.5-4.0) H 04/21/21 18:31 Albumin/Globulin Ratio 0.2 (0.9-2) L 04/21/21 18:31 Lipase 270 U/L (73-393) 04/21/21 18:31 Ethyl Alcohol mg/dL 271.8 mg/dl (0-3) H 04/21/21 18:34 COVID-19 Eval Order Covid19 at [facility] 04/21/21 18:30 SARS-CoV-2 (PCR) NEGATIVE (Negative) 04/21/21 18:30 Impressions Chest X-Ray 04/21/21 18:13 XR chest 1V portable HISTORY: Atypical chest pain. COMPARISON: Chest 03/19/2021. FINDINGS: No pneumothorax. No pleural effusions. The cardiac silhouette remains normal in size. Right tracheal deviation due to the left-sided goiter. This remains unchanged. Enlargement of the central pulmonary arteries is also unchanged and is consistent with pulmonary artery hypertension. Mild interstitial thickening which is likely chronic. No new focal lung consolidations to suggest pneumonia. No evidence for pulmonary edema. IMPRESSION: 1. No change in the pulmonary arterial hypertension and chronic interstitial thickening. 2. No new focal lung consolidations to suggest pneumonia. 3. No evidence for pulmonary edema. ACT 112: Negative or not required by law. Electronically signed by: Villa Clinton M.D. 04/21/2021 6:31 PM Abdomen/Pelvis CT 04/21/21 18:[address] WITHOUT CONTRAST CT DOSE: 530.42 mGy.cm HISTORY: Generalized Abdominal pain, ETOH abuse, hx of hernia ascites TECHNIQUE: Multiaxial CT images of the abdomen and pelvis were performed without contrast. A dose lowering technique was utilized adhering to the principles of ALARA. COMPARISON STUDY: Abdomen and pelvis CT 03/19/2021. FINDINGS: Mild interstitial thickening at the lung bases, unchanged. There is a stable 4 mm nodule within the base of the right lower lobe on image 71. No pneumoperitoneum. No pneumatosis. Old, healed left pubic ring fracture is again noted. No suspicious lytic are blastic osseous lesions. Moderate body wall edema. Small fat/fluid containing umbilical hernia is again noted. Moderate ascites with extension of fluid into the right inguinal canal and right scrotum. This is not significantly changed. Cirrhotic liver with evidence for portal hypertension demonstrated by multiple upper abdominal and paraesophageal varices. The spleen is normal in size. The adrenal glands and pancreas are unremarkable. No renal stones or hydronephrosis. Prior cholecystectomy. No retroperitoneal lymphadenopathy. The bladder is unremarkable. Suboptimal evaluation for bowel pathology due to the lack of intravenous and oral contrast. However, there is no definite bowel wall thickening or obstruction. Colonic diverticulosis. No evidence for acute diverticulitis. Normal appendix. IMPRESSION: 1. No change in the ascites with extension into the right inguinal canal and right scrotum. 2. Hepatic cirrhosis with evidence of portal hypertension. 3. No definite bowel wall thickening or obstruction. 4. Normal appendix. 5. Stable 4 mm nodule within the right lower lobe. 6. Additional findings as described above. ACT 112: Negative or not required by law. Electronically signed by: Villa Clinton M.D. 04/21/2021 7:[address] head initial read : No ICH, mass effect or edema. No evidence of acute cortical stroke. Visualized sinuses and mastoid air cells are clear. EKG as per my interpretation: Rate 95, NSR, normal axis, T wave abnormalities inferior leads Code Status & VTE Plan VTE Prophylaxis Plan VTE Prophylaxis will be ordered: Yes
[2021-04-21 21:31] LABS: Troponin I 0.025 ng/ml (0-0.045)
[2021-04-21] MEDS ORDERED: GABAPENTIN 600 MG TAB PO STA (21:52)
[2021-04-21] MEDS ORDERED: XOPENEX/ATROVENT 1.25mg/0.5MG NEB COMBO NEB PRN (23:25)
[2021-04-21] MEDS ORDERED: MAGNESIUM SULFATE / D5W 1 GM/100 ML BAG IV ONE (23:25)
[2021-04-21] MEDS ORDERED: PROMETHAZINE HCL 12.5 MG in SODIUM CHLORIDE 0.9% 50 ML IV PRN (23:25)
[2021-04-21] MEDS ORDERED: ATIVAN IV ALCOHOL WITHDRAWL IV PRN (23:25)
[2021-04-21] MEDS ORDERED: GABAPENTIN 600 MG TAB PO ONE (23:25)
[2021-04-21] MEDS ORDERED: LORazepam 2 MG/4 ML VIAL IV PRN (23:25)
[2021-04-21] MEDS ORDERED: LEVALBUTEROL 1.25MG/0.5ML NEB INH PRN (23:25)
[2021-04-21] MEDS ORDERED: NITROGLYCERIN SL 0.4 MG/TAB TAB SL PRN (23:25)
[2021-04-21] MEDS ORDERED: LORazepam 3 MG/6 ML VIAL IV PRN (23:25)
[2021-04-21] MEDS ORDERED: IPRATROPIUM BROMIDE NEB SOLN 0.02% 2.5 ML VIAL INH PRN (23:25)
[2021-04-21 23:32] LABS: Thyroid Stimulating Hormone 13.2 uIu/ml (0.300-4.500)
[2021-04-21] MEDS ORDERED: PHYTONADIONE 5 MG in SODIUM CHLORIDE 0.9% 50 ML IV ONE (23:45)
[2021-04-21 23:46] LABS: T4 Free Thyroxine 1.1 ng/dl (0.8-1.6)
[2021-04-22] MEDS: ALBUMIN 25% 12.5 GM/50 ML VIAL IV SCH ×5 (00:06→22:11)
[2021-04-22 01:41] LABS: Appearance Urine Clear (Clear); Bacteria Urine Automated Negative (Negative); Bilirubin Urine Negative (Negative); Blood Urine 1+ (Negative); Cast Urine Automated 0 /lpf (0-5); Color Urine Orange; Glucose Urine UA Negative (Negative); Ketones Urine Negative (Negative); Leukocyte Esterase Urine Negative (Negative); Nitrite Urine Negative (Negative); Protein Urine Negative (Negative); RBC Urine Automated 0-4 /hpf (0-4); Specific Gravity Urine 1.014 (1.000-1.030); Urobilinogen Urine Negative (Negative)
[2021-04-22 05:13] LABS: Hematocrit (blood only) 31.5 % (42-52); Hemoglobin 10.3 g/dL (14.0-18.0); Mean Corpuscular Hemoglobin 37.2 pg (25-34); Mean Corpuscular Hgb Conc 32.7 g/dL (32-36); Mean Corpuscular Volume 113.7 fL (80-100); RDW Coefficient of Variation 13.5 % (11.5-14.5); Red Blood Count 2.77 M/uL (4.7-6.1); White Blood Count 5.39 K/uL (4.8-10.8)
[2021-04-22 05:26] LABS: INR 1.9 (0.9-1.1); Platelet Count 58 K/uL (130-400); Prothrombin Time 18.7 Seconds (9.0-12.0)
[2021-04-22 05:33] LABS: Basophils # (auto) 0.04 K/uL (0-0.2); Basophils % (auto) 0.7 %; Eosinophils # (auto) 0.19 K/uL (0-0.5); Eosinophils % (auto) 3.5 %; Immature Granulocytes # (auto) 0.01 K/uL (0.00-0.02); Immature Granulocytes % (auto) 0.2 %; Lymphocytes % (auto) 27.8 %; Macrocytosis Present; Monocytes # (auto) 0.66 K/uL (0.11-0.59); Monocytes % (auto) 12.2 %; Neutrophils # (auto) 2.99 K/uL (1.4-6.5); Neutrophils % (auto) 55.6 %
[2021-04-22 05:39] LABS: Albumin Level 1.5 gm/dl (3.4-5.0); BUN Creatinine Ratio 7.9 (10-20); Calcium 7.4 mg/dl (8.5-10.1); Creatinine Clr Calc Pharmacy 117.6 ml/min; Est GFR (African American) 129.4 ml/min; Est GFR (Non-African American) 111.6 ml/min; Potassium 3.8 mmol/L (3.5-5.1)
[2021-04-22] MEDS: GABAPENTIN 600 MG TAB PO SCH ×3 (05:59→22:11)
[2021-04-22 06:07] LABS: Albumin Globulin Ratio 0.3 (0.9-2); Bilirubin,Total 4.7 mg/dl (0.2-1); Globulin 5.5 gm/dl (2.5-4.0); Troponin I 0.03 ng/ml (0-0.045)
--- NOTE | 2021-04-22 06:50 | CT Scan Report ---
CT head/brain wo con CLINICAL HISTORY: Syncope. Headache COMPARISON STUDY: 10/03/2020 TECHNIQUE: Axial CT of the brain is performed from the vertex to the skull base. IV contrast was not administered for this examination. A dose lowering technique was utilized adhering to the principles of ALARA. CT DOSE: 537.48 mGy.cm FINDINGS: No intra or extra-axial mass lesions are visualized. There is no CT evidence of acute cortical infarc tion. There is no evidence of midline shift. There is no acute hemorrhage. No calvarial fractures ar e visualized. There are patchy white matter hypodensities likely on a small vessel basis. There is no evidence of pathologic ventricular dilatation. There is no evidence of acute sinusitis IMPRESSION: No acute intracranial findings ACT 112: Negative or not required by law. Electronically signed by: Charlie Kumar M.D. 04/22/2021 6:49 AM
[2021-04-22] MEDS: FOLIC ACID 1 MG TAB PO SCH (10:07)
[2021-04-22] MEDS: MULTIVITAMIN TAB PO SCH (10:07)
[2021-04-22] MEDS: THIAMINE HCL 100 MG TAB PO SCH (10:07)
--- NOTE | 2021-04-22 10:09 | Ultrasound Report ---
US paracentesis abd w/image CLINICAL HISTORY: 55 years-old Male with ascites. Recurrent ascites COMPARISON: CT abdomen pelvis 04/21/2021 PROCEDURE: The procedure was explained to the patient in the care including the benefits and possible risks/complications. The patient gave verbal understanding and written consent was obtained. A time -out was performed prior to the start of the procedure. The patient was placed on the ultrasound table in the supine position. Using ultrasound guidance, an appropriate procedure site in the right lower abdomen was marked. This area was then prepped and drap ed in the usual sterile fashion. Local anesthesia was achieved within 1% lidocaine. An 8-Italian cente sis catheter was then inserted. Approximately 5.2 liters of clear, yellowish fluid was removed and se nt to the lab for analysis. The catheter was removed and external pressure was held to achieve hemostasis. A sterile dressing was applied to the procedure site. The patient tolerated the procedure well without immediate complicati ons. IMPRESSION: Successful ultrasound-guided paracentesis with removal of 5.2 L ascitic fluid ACT 112: Negative or not required by law. The above report was generated using voice recognition software. It may contain grammatical, syntax o r spelling errors. Electronically signed by: Francis Norris M.D. 04/22/2021 10:07 AM
[2021-04-22 10:16] LABS: Estimated Average Glucose 68 mg/dl; Hemoglobin A1C < 4.0 % (4.5-5.6)
[2021-04-22] MEDS: oxyCODONE HCL IR 5 MG TAB (IMMEDIATE RELEASE) PO PRN ×2 (11:35→21:30)
--- NOTE | 2021-04-22 12:40 | Gastrointestinal Consultation ---
Date of Consultation April 22, 2021 Assessment & Plan (1) Generalized abdominal pain: Likely secondary to ascites, improved with paracentesis. Will watch for labs to r/o SBP, though no hx of prior SBP so low suspicion. (2) ETOH abuse: Recommend abstention but pt indicates he does not intent to abstain. (3) Cirrhosis of liver with ascites: At this time, he is not a candidate for liver transplant due to continued alcohol intake. Though hx of EV, no evidence of GI bleeding so no indication for repeat EGD during this admission. Recommend low salt diet, rifaximin 550mg BID and same OP meds as on discharge from the last admission in March. Though some component of alcoholic hepatitis, recommend against steroids and Trental because continuing to drink alcohol and also has been non compliant with meds. No clear evidence of hepatic encephalopathy. His symptoms are more likely from discomfort ascites and from alcohol withdraw. He seems to be at his baseline mentation at any rate. Supervising Physician Co-Signing Physician Notes I saw and evaluated the patient. We were consulted for evaluation of abdominal discomfort. The patient does have a long history of alcoholism and ongoing alcohol abuse. He has been resistant to any follow-up with our office as an outpatient and continues to be noncompliant with medical recommendations such as alcohol abstinence. Furthermore the patient is actually drinking at the time of my evaluation as he has no interest in abstaining from alcohol abuse. Physical examination Patient much older than stated age, mildly disheveled Impression: Patient with a history of cirrhosis complicated by ascites and history of encephalopathy. It appears that the patient is generally noncompliant with any of our treatment recommendations. Would recommend a paracentesis as an outpatient as needed and abstinence from alcohol consumption. Please call with any questions or concerns History of Present Illness Reason for Consultation: Ascites, Abdominal pain Requesting Physician: Dr. Salazar Attending Physician: Richar Escobedo MD History of Present Illness Mr. Markos Martin is a 55 yr old male pt of Dr. Joseph with a hx of HTN, COPD, hypothyroidism chronic pancreatitis and ETOH cirrhosis with EV (per hx, no EV on most recent EGD) and ascites. He continues to drink alcohol, telling that he drinks 3 or so beers/day, most recently yesterday. He presented to the ED today for chest pain, right sided abdominal pain and for scrotal edema. He also has mild lower bilat lower leg edema Lt>Rt. He is awake, alert, oriented. No asterix, he does have tremor of the hands. He underwent paracentesis this morning with removal of 5.2L of clear/yellow fluid and abdomen is now more comfortable. He is pancytopenic with Hb stable at 10. Denies any blood in BMs or vomiting. CTAP w/o contrast is with cirrhosis, ascites, no new changed. CT head also w/o acute changes. Most recent EGD by Dr. Nieves in April 2020: - Z-line regular, 38 cm from the incisors. - Portal hypertensive gastropathy. - Normal examined duodenum. Most recent Colonoscopy by Dr. Nieves in April 2020 with internal hemorrhoids, diverticulosis. Allergies Allergy/AdvReac Type Severity Reaction Status Date / Time fentanyl Allergy Intermediate RASH ALL Verified 04/21/21 19:12 OVER BODY Home Medications Medication Instructions Recorded Confirmed Type No Known Home Medications 04/21/21 04/21/21 History Patient History Medical History Alcohol dependence Alcoholic cirrhosis of liver with ascites Chronic anxiety Chronic obstructive pulmonary disease Chronic pancreatitis COVID-19 Esophageal varices History of pulmonary embolism Hypertension Hypothyroidism On home oxygen therapy Paroxysmal atrial fibrillation Portal hypertension Portal vein thrombosis Pulmonary embolism Pulmonary HTN Seizure Tobacco abuse Surgical History H/O colonoscopy History of cholecystectomy "2009" History of esophagogastroduodenoscopy (EGD) "12/15/2014- Small varices. Erosive duodenitis." 01/09/17 - esophageal varicies, gastritis Family History Mother Diabetes Father Coronary heart disease Social History Smoking Status: Current every day smoker Tobacco Type: Cigarettes Cigarettes Per Day: 10; Second Hand Exposure: No; Hx Alcohol Use: Yes Alcohol type: beer Alcohol Intake Frequency Comment: 4 32 oz renner high life daily Hx Substance Use: No Preferred Language: Czech Communication Ability: Effective Visual Impairment: No Limitations Clinical Administrator Required: No Beliefs That Will Affect Care: None marital status: Current Living Situation: Family Current Living Situation Comment: parents Other Information That Helps Us Care for You: No Feels Safe at Home: Yes Safety Concerns: Feels Safe At This Time Assistive Devices: None Review of Systems Review of Systems: ROS: Gen: + weakness; Denies fevers or weight loss Eyes: No eye redness, or pain, no recent vision changes Resp: No SOB, no cough Cardio: + generalized CP; No palpitations/irregular beats, + peripheral edema GI: Per HPI otherwise (-) : + scrotal edema; denies pain on urination Skin: No jaundice, itching or new rashes Physical Exam Constitutional: + ill appearing (chronically), + frail appearing, cooperative and comfortable Neck: trachea midline, no thyromegaly Respiratory: normal respiratory effort; does not use accessory muscles and no cough Crackles both bases. Cardiovascular: Rate/Rhythm: regular rate and regular rhythm Heart Sounds: normal S1 and normal S2; no murmur Vessels: no JVD Extremities: + edema (1+ pitting left lower leg edema; trace right lower leg edema) Gastrointestinal (Abdomen): Mildly distended with ascites post paracentesis. BS present, mild right mid and RLQ tenderness on deep palpation w/o rebound or guarding. Moderate umbilical hernia present - reducible, non tender Skin: + jaundice and + dry skin; no rashes and no ulcers Neurologic: PERRL, EOMI, accommodation nl, no face palsy, no dysarthria + tremor, both hands, no asterix Psychiatric: Orientation: oriented x 3 Apperance: + disheveled (slightly) Eye Contact: good eye contact Motor Behavior: + tremor Mood: no irritable mood Thought Process: + circumstantial thought process and + concrete thought process Cognition: recent memory grossly intact, remote memory grossly intact and attention grossly intact Judgement: + limited judgement Slightly quiet and garbled speech but understandable. No Genitourinary: marked scrotal edema Results & Data ([facility]) Vital Signs (Past 12 Hours) Vital Signs Pulse Pulse Resp BP BP Pulse Ox 04/22/21 10:05 79 13 114/69 98 04/22/21 09:02 89 22 127/81 100 04/22/21 07:06 100 H 30 H 136/89 99 04/22/21 06:00 83 11 L 89 L 04/22/21 05:50 81 12 88 L 04/22/21 05:40 84 12 88 L 04/22/21 05:30 83 15 91 04/22/21 05:28 83 7 L 92 04/22/21 05:15 77 13 129/81 99 04/22/21 05:00 78 11 L 123/78 97 04/22/21 04:45 85 14 145/85 H 98 04/22/21 04:30 96 H 14 139/91 90 04/22/21 04:15 84 13 126/77 95 04/22/21 04:00 80 16 119/70 94 04/22/21 03:45 88 14 126/76 93 04/22/21 03:30 82 13 107/74 93 04/22/21 03:15 81 12 119/70 99 04/22/21 03:00 81 11 L 124/73 100 04/22/21 02:45 87 18 128/76 100 04/22/21 02:30 78 15 115/64 99 04/22/21 02:15 81 13 113/70 98 04/22/21 02:00 79 15 111/71 97 04/22/21 01:45 81 15 130/76 96 04/22/21 01:30 77 20 135/84 97 04/22/21 01:15 88 13 118/75 95 04/22/21 01:03 85 18 128/86 98 04/22/21 00:45 80 12 124/84 97 04/22/21 00:30 81 15 120/82 99 04/22/21 00:16 82 15 130/86 96 04/22/21 00:12 80 18 137/91 97 Laboratory Results T Bili 4.7, AST 61, ALT 22, Alk Phos 91 WBC 5.3, Hb 10.3, Hct 31.5, Plts58, Na 141 K 3.8, BUN 5, Cr 0.6, glucose 100 Diagnostic Findings Non contrast CTAP 04/21: 1. No change in the ascites with extension into the right inguinal canal and right scrotum. 2. Hepatic cirrhosis with evidence of portal hypertension. 3. No definite bowel wall thickening or obstruction. 4. Normal appendix. 5. Stable 4 mm nodule within the right lower lobe. 6. Additional findings as described above. Paracentesis 04/22: uccessful ultrasound-guided paracentesis with removal of 5.[address] head 04/22: No acute intracranial findings CXR 05/01: 1. No change in the pulmonary arterial hypertension and chronic interstitial thickening. 2. No new focal lung consolidations to suggest pneumonia. 3. No evidence for pulmonary edema.
--- NOTE | 2021-04-22 13:08 | Electrocardiogram Report ---
Test Reason : Blood Pressure : / mmHG Vent. Rate : 097 BPM Atrial Rate : 097 BPM P-R Int : 122 ms QRS Dur : 096 ms QT Int : 380 ms P-R-T Axes : 071 084 007 degrees QTc Int : 482 ms Sinus rhythm with Premature atrial complexes Prolonged QT Abnormal ECG When compared with ECG of 26-MAR-2021 16:50, T wave inversion no longer evident in Anterior leads Confirmed by Clement Ceballos ([id number]) on 04/22/2021 1:07:32 PM Referred By: REFERRED SELF Confirmed By:Brady Ceballos
--- NOTE | 2021-04-22 13:46 | Electroencephalogram ---
EEG Procedure Note Date of Service April 22, 2021 Start / End Times Start Time: 1210 End Time: 1230 Referring Physician Cayden Fu MD History Recurrent syncope Home Medication List Medication Instructions Recorded Confirmed Type No Known Home Medications 04/21/21 04/21/21 History Inpatient Medication List Folic Acid (Folic Acid 1 Mg Tab) 1 mg PO QAM [facility] Stop: 05/22/21 08:59 Last Admin: 04/22/21 10:07 Dose: 1 mg Documented by: [id number] Albumin Human (Albumin 25%) 12.5 gm in 50 mls @ 50 mls/hr IV Q6H ARMANDO Stop: 04/24/21 23:24 Last Infusion: 04/22/21 12:37 Dose: 0 mls/hr Documented by: [id number] Admin: 04/22/21 11:37 Dose: 50 mls/hr Documented by: [id number] Infusion: 04/22/21 06:57 Dose: 0 mls/hr Documented by: [id number] Admin: 04/22/21 05:59 Dose: 50 mls/hr Documented by: [id number] Infusion: 04/22/21 00:58 Dose: 0 mls/hr Documented by: [id number] Admin: 04/22/21 00:06 Dose: 50 mls/hr Documented by: [id number] [facility]ivit[facility] ([facility]ivitamin Tab) [facility] [place] Stop: 05/22/21 08:59 Last Admin: 04/22/21 10:07 Dose: 1 tab Documented by: [id number] Oxycodone HCl (Oxycodone Hcl Ir 5 Mg Tab (Immediate Release)) 5 mg PO Q4H PRN PRN Reason: Pain Stop: 05/05/21 23:24 Last Admin: 04/22/21 11:35 Dose: 5 mg Documented by: [id number] Thiamine HCl (Thiamine Hcl 100 Mg Tab) 100 mg PO QAM [facility] Stop: 05/22/21 08:59 Last Admin: 04/22/21 10:07 Dose: 100 mg Documented by: [id number] Discontinued Medications Gabapentin (Gabapentin 1200mg Alcohol Withdrawal Load) 1 ea PO NOW STA; Protocol Stop: 04/21/21 21:17 Last Admin: 04/21/21 22:18 Dose: Not Given Documented by: [id number] Gabapentin (Gabapentin 600 Mg Tab) 1,200 mg PO NOW STA Stop: 04/21/21 21:53 Last Admin: 04/21/21 22:04 Dose: 1,200 mg Documented by: [id number] Gabapentin (Gabapentin 600 Mg Tab) 600 mg PO Q6H ARMANDO Stop: 04/22/21 12:01 Last Admin: 04/22/21 11:35 Dose: 600 mg Documented by: [id number] Admin: 04/22/21 05:59 Dose: 600 mg Documented by: [id number] Sodium Chloride (Nss) 500 mls @ 999 mls/hr IV .Q31M STA Stop: 04/21/21 18:43 Last Infusion: 04/21/21 19:05 Dose: 0 mls/hr Documented by: [id number] Admin: 04/21/21 18:32 Dose: 999 mls/hr Documented by: [id number] Thiamine HCl 100 mg/ Syringe 10 mls @ 2 mls/min IV NOW STA Stop: 04/21/21 21:04 Last Admin: 04/21/21 22:04 Dose: 2 mls/min Documented by: [id number] Ceftriaxone Sodium (Rocephin) 1,000 mg in 50 mls @ 100 mls/hr IV NOW STA Stop: 04/21/21 21:30 Last Infusion: 04/21/21 21:43 Dose: 0 mls/hr Documented by: [id number] Admin: 04/21/21 21:13 Dose: 100 mls/hr Documented by: [id number] Phytonadione 5 mg/ Sodium (Chloride) 50.5 mls @ 101 mls/hr IV ONE ONE Stop: 04/22/21 00:14 Last Infusion: 04/22/21 01:33 Dose: 0 mls/hr Documented by: [id number] Admin: 04/22/21 00:58 Dose: 101 mls/hr Documented by: [id number] Magnesium Sulfate/Dextrose (Magnesium Sulfate / D5w) 1 gm in 100 mls @ 50 mls/hr IV ONE ONE Stop: 04/22/21 01:24 Last Infusion: 04/22/21 03:37 Dose: 0 mls/hr Documented by: [id number] Admin: 04/22/21 01:32 Dose: 50 mls/hr Documented by: [id number] Ipratropium Kohler (Ipratropium Kohler Neb Soln 0.02% 2.5 Ml Vial) 0.5 mg INH NOW STA Stop: 04/21/21 21:15 Last Admin: 04/21/21 21:21 Dose: 0.5 mg Documented by: [id number] Levalbuterol HCl (Levalbuterol 1.25mg/0.5ml Neb) 1.25 mg INH NOW STA Stop: 04/21/21 21:15 Last Admin: 04/21/21 21:21 Dose: 1.25 mg Documented by: [id number] Morphine Sulfate (Morphine Sulfate 4 Mg/Ml 1 Ml Carp\Vial) 4 mg IV NOW STA Stop: 04/21/21 18:31 Last Admin: 04/21/21 18:37 Dose: 4 mg Documented by: [id number] Oxycodone HCl (Oxycodone Hcl Ir 5 Mg Tab (Immediate Release)) 5 mg PO NOW STA Stop: 04/21/21 21:02 Last Admin: 04/21/21 21:13 Dose: 5 mg Documented by: [id number] Potassium Chloride (Potassium Chloride Crtab 20 Meq Tabcr) 40 meq PO NOW STA Stop: 04/21/21 21:17 Last Admin: 04/21/21 22:24 Dose: 40 meq Documented by: [id number] Description This is a 21 electrode EEG with a single channel dedicated to limited EKG. The electrodes were placed in accordance with the International 10-20 system. This EEG was obtained as a bedside recording in the emergency room and is of good technical quality. Photic stimulation was performed. Hyperventilation was not in drowsiness light sleep were not obtained There is evidence for normal-appearing background rhythm in the alpha range of up to 10 Hz maximal frequency and 20 V maximal amplitude which is maximum posterior head regions bilaterally symmetrical. Polymorphic mid frequency theta activity seen over all head regions maximal in the central regions and is also symmetrical. Beta activity seen bifrontally. Photic stimulation provokes a modest driving response with no photo myogenic or photoparoxysmal component No epileptiform discharges are seen Interpretation This is a normal EEG during wakefulness Clinical Correlation This is a normal EEG without evidence for focal or generalized encephalopathy and without evidence for potentially epileptogenic activity. Sanket Matthew MD
[2021-04-22] MEDS: BEER 1 CAN PO SCH ×2 (16:33→21:27)
--- NOTE | 2021-04-22 17:28 | Hospitalist Progress Note ---
Date of Service April 22, 2021 Assessment & Plan (1) Left-sided chest pain: Plan: Chest pain: patient presenting from home after a syncopal event in the setting of heavy alcohol use, no seizure like activity reported initial trop negative, EKG without acute ST changes suspected chest pain is due to pressure from ascites Troponin x 3 negative Echo showed right ventricular is moderately dilated. Right ventricular systolic function is moderately to severely reduced. Severe pulmonary hypertension with estimated pulmonary artery pressure of 95 mmhg. ejection fraction 55 to 60% Continue monitor in tele Syncope: Mostly related to alcohol abuse CT head showed no acute intracranial findings No significant injury Alcoholic cirrhosis of liver with ascites: Has been very noncompliant He does not plan to stop drinking alcohol he said that he does not take his medications or follow with his doctor appointments GI on board He was on Xifaxan and lactulose and probably on Lasix and Aldactone as an outpatient Being very noncompliant he has not been taking any of those and are not in the med list Will start rifaximin 550 mg twice daily, lactulose 30 g 4 times daily, Lasix 40 mg daily and Aldactone 25 mg daily S/p paracentesis where 5.2 L ascites fluid removed today Alcohol abuse Continue to drink alcohol daily Multiple admissions for alcohol intoxication and withdrawal Continue Gabapentin and Ativan alcohol withdrawal protocol Last admission pt was getting 1can of beer during the admission course Will consider to start on Librium to avoid to continue giving the can of beer Will monitor closely for alcohol withdrawal and DT Esophageal varices: non compliant w/ Xifaxan S/P paracentesis with 5.2 L ascites fluid removed Continue Rocephin for now for possible SBP Buttock wound Pressure ulcer of sacral region, stage 3 POA Continue daily wound care Wound care nurse on board No indication for antibiotics at this time. Will need follow-up with wound care clinic Paroxysmal atrial fibrillation: noncompliant with atenolol - will resume while admitted not a candidate for anticoagulation secondary to medical noncompliance Remains in sinus rhythm Multiple thyroid nodules: Per last discharge summary few months ago: "Recently found to have marked bilateral lobe thyroid enlargeent by CT scan during an ER visit with several nodular densities of the supracalvicular and retroclavicular region concerning for neoplastic process. He was referred to ENT but has not been compliant with this." Does not follow up with appointment (Non compliant) History of pulmonary embolism: Not a candidate for anticoagulation secondary to history of medical noncompliance and ongoing alcohol abuse Thrombocytopenia: Coagulopathy: Due to underlying liver disease platelets at baseline no signs of bleeding DVT prophylaxis: SCDs due to thrombocytopenia/coagulopathy Disposition Will discharge once medically stable Patient daughter requesting updates from providers. Ms. Antonia Goa, contact #[phone]. Admission and Anticipated Discharge Date Admission Date: April 21, 2021 Subjective Pt was seen and examined for follow up abdominal and chest pain Lying in bed with no acute distress Pt said that he is was hungry this morning because he was NPO early He said that after his discharge he never took his meds He said that he continues to drink alcohol and does not plan to quit drink alcohol Denies any chest pain, palpitation, dizziness and SOB Physical Exam Physical Exam: General- No acute distress Head- atraumatic Eyes- PERRL, EOMI, ENT- oropharynx clear Neck- supple, no JVD Lungs- clear to auscultation Heart- regular rhythm; no murmur Abdomen- normal bowel sounds, soft, nontender Extremities- no calf tenderness Neuro- alert, oriented x 3; PERRL, EOMI; no facial palsy; no dysarthria Skin- warm & dry Results & Data Results & Data ([facility]) Vital Signs (Past 12 Hours) Vital Signs Temp Pulse Pulse Resp BP BP Pulse Ox 04/22/21 15:49 36.8 C 82 78 19 146/79 H 90 04/22/21 10:05 79 13 114/69 98 04/22/21 09:02 89 22 127/81 100 04/22/21 07:06 100 H 30 H 136/89 99 04/22/21 06:00 83 11 L 89 L 04/22/21 05:50 81 12 88 L 04/22/21 05:40 84 12 88 L 04/22/21 05:30 83 15 91 04/22/21 05:28 83 7 L 92
[2021-04-22] MEDS: cefTRIAXone SODIUM 1,000 MG in DEXTROSE 5% 50 ML IV SCH (21:26)
[2021-04-22] MEDS: MoRPHine SULFATE 2 MG/ML CARP IV PRN (23:16)
[2021-04-23] MEDS: oxyCODONE HCL IR 5 MG TAB (IMMEDIATE RELEASE) PO PRN ×2 (02:13→22:54)
[2021-04-23] MEDS: ALBUMIN 25% 12.5 GM/50 ML VIAL IV SCH ×3 (06:35→16:42)
[2021-04-23] MEDS: GABAPENTIN 600 MG TAB PO SCH ×3 (06:36→22:50)
[2021-04-23] MEDS: MULTIVITAMIN TAB PO SCH (08:45)
[2021-04-23] MEDS: THIAMINE HCL 100 MG TAB PO SCH (08:46)
[2021-04-23] MEDS: FOLIC ACID 1 MG TAB PO SCH ×3 (08:46→10:52)
[2021-04-23] MEDS ORDERED: ATENOLOL 25 MG TABLET PO SCH (09:15)
[2021-04-23] MEDS: LACTULOSE SYRUP 20 GM/30 ML UDC PO SCH ×2 (10:06→21:44)
[2021-04-23] MEDS: rifAXIMin 550 MG TABLET PO SCH ×2 (10:07→21:44)
[2021-04-23] MEDS: LORazepam 1 MG/2 ML VIAL IV PRN ×2 (10:52→16:20)
[2021-04-23] MEDS ORDERED: dilTIAZem HCl 5 MG/ML 5 ML VIAL IV STA (11:41)
[2021-04-23] MEDS: SPIRONOLACTONE 12.5 MG TAB PO SCH (11:44)
[2021-04-23] MEDS: dilTIAZem HCL 30 MG TAB PO SCH ×2 (12:25→21:44)
[2021-04-23] MEDS: cefTRIAXone SODIUM 1,000 MG in DEXTROSE 5% 50 ML IV SCH (21:40)
--- NOTE | 2021-04-23 22:14 | Hospitalist Progress Note ---
Date of Service April 23, 2021 Assessment & Plan (1) Left-sided chest pain: Plan: Chest pain: patient presenting from home after a syncopal event in the setting of heavy alcohol use, no seizure like activity reported initial trop negative, EKG without acute ST changes suspected chest pain is due to pressure from ascites Troponin x 3 negative Echo showed right ventricular is moderately dilated. Right ventricular systolic function is moderately to severely reduced. Severe pulmonary hypertension with estimated pulmonary artery pressure of 95 mmhg. ejection fraction 55 to 60% Continue monitor in tele Syncope: Mostly related to alcohol abuse CT head showed no acute intracranial findings No significant injury Alcoholic cirrhosis of liver with ascites: Has been very noncompliant He does not plan to stop drinking alcohol he said that he does not take his medications or follow with his doctor appointments GI on board He was on Xifaxan and lactulose and probably on Lasix and Aldactone as an outpatient Being very noncompliant he has not been taking any of those and are not in the med list Will start rifaximin 550 mg twice daily, lactulose 30 g 4 times daily, Lasix 40 mg daily and Aldactone 25 mg daily S/p paracentesis where 5.2 L ascites fluid removed today We will add Lasix 20 mg daily, will start in a.m. Alcohol abuse Continue to drink alcohol daily Multiple admissions for alcohol intoxication and withdrawal Continue Gabapentin and Ativan alcohol withdrawal protocol Last admission pt was getting 1can of beer during the admission course Continue Librium 10 mg 3 times daily to avoid to continue giving the can of beer Will monitor closely for alcohol withdrawal and DT Esophageal varices: non compliant w/ Xifaxan S/P paracentesis with 5.2 L ascites fluid removed Continue Rocephin for now for possible SBP Buttock wound Pressure ulcer of sacral region, stage 3 POA Continue daily wound care Wound care nurse on board No indication for antibiotics at this time. Will need follow-up with wound care clinic Paroxysmal atrial fibrillation: Ongoing noncompliant with atenolol cardiac monitor earlier today showed A. fib with RVR with rate between 150-180 Cardizem 10 mg IV x1 given and started on Cardizem 30 mg twice daily p.o. After a few minutes patient converted back to normal sinus rhythm not a candidate for anticoagulation secondary to medical noncompliance Continue monitor closely PCU Multiple thyroid nodules: Per last discharge summary few months ago: "Recently found to have marked bilateral lobe thyroid enlargeent by CT scan during an ER visit with several nodular densities of the supracalvicular and retroclavicular region concerning for neoplastic process. He was referred to ENT but has not been compliant with this." Does not follow up with appointment (Non compliant) History of pulmonary embolism: Not a candidate for anticoagulation secondary to history of medical noncompliance and ongoing alcohol abuse Thrombocytopenia: Coagulopathy: Due to underlying liver disease platelets at baseline no signs of bleeding DVT prophylaxis: SCDs due to thrombocytopenia/coagulopathy Disposition Will discharge once medically stable Patient daughter requesting updates from providers. Ms. Antonia Gao, contact #[phone]. Admission and Anticipated Discharge Date Admission Date: April 21, 2021 Subjective Pt was seen and examined for follow up abdominal and chest pain Lying in bed with no acute distress feeling sleepy His abdominal pain improved He went to A. fib with RVR earlier, and converted after received Cardizem IV Denies any chest pain, palpitation, dizziness and SOB Physical Exam Physical Exam: General- No acute distress Head- atraumatic Eyes- PERRL, EOMI, ENT- oropharynx clear Neck- supple, no JVD Lungs- clear to auscultation Heart- regular rhythm; no murmur Abdomen- normal bowel sounds, soft, nontender Extremities- no calf tenderness Neuro- alert, oriented x 3; PERRL, EOMI; no facial palsy; no dysarthria Skin- warm & dry Results & Data Results & Data ([facility]) Vital Signs (Past 12 Hours) Vital Signs Temp Pulse Pulse Resp BP BP Pulse Ox 04/23/21 18:58 37.0 C 88 17 102/62 92 04/23/21 16:57 116 H 04/23/21 14:56 37.2 C 88 17 91/63 L 93 04/23/21 12:02 37.0 C 78 20 95/60 L 95
[2021-04-23] MEDS: ACETAMINOPHEN 325 MG TAB PO PRN (22:54)
[2021-04-23] MEDS ORDERED: ALBUMIN 25% 12.5 GM/50 ML VIAL IV ONE (23:09)
[2021-04-23 23:27] LABS: Hematocrit (blood only) 30.6 % (42-52); Hemoglobin 10.1 g/dL (14.0-18.0); Mean Corpuscular Hemoglobin 37.8 pg (25-34); Mean Corpuscular Volume 114.6 fL (80-100); RDW Coefficient of Variation 13.8 % (11.5-14.5); RDW Standard Deviation 57.2 fL (36.4-46.3); Red Blood Count 2.67 M/uL (4.7-6.1); White Blood Count 5.43 K/uL (4.8-10.8)
[2021-04-23 23:29] LABS: Mean Platelet Volume 11.4 fL (7.4-10.4); Platelet Count 54 K/uL (130-400)
[2021-04-23 23:43] LABS: Basophils # (auto) 0.04 K/uL (0-0.2); Basophils % (auto) 0.7 %; Eosinophils # (auto) 0.18 K/uL (0-0.5); Eosinophils % (auto) 3.3 %; Giant Platelets 2+; Lymphocytes # (auto) 1.61 K/uL (1.2-3.4); Lymphocytes % (auto) 29.7 %; Macrocytosis Present; Monocytes # (auto) 0.76 K/uL (0.11-0.59); Neutrophils # (auto) 2.84 K/uL (1.4-6.5); Neutrophils % (auto) 52.3 %
[2021-04-23 23:56] LABS: Est GFR (African American) 89.5 ml/min; Potassium 3.6 mmol/L (3.5-5.1)
[2021-04-23 23:57] LABS: Albumin Globulin Ratio 0.5 (0.9-2); Albumin Level 2.3 gm/dl (3.4-5.0); BUN Creatinine Ratio 14.6 (10-20); Bilirubin,Total 7.7 mg/dl (0.2-1); Creatinine Clr Calc Pharmacy 67.1 ml/min; Est GFR (Non-African American) 77.2 ml/min; Globulin 4.7 gm/dl (2.5-4.0); Magnesium 1.8 mg/dl (1.8-2.4)
[2021-04-24] MEDS: BEER 1 CAN PO SCH ×4 (00:12→20:31)
[2021-04-24] MEDS ORDERED: MAGNESIUM SULFATE / D5W 1 GM/100 ML BAG IV ONE (01:01)
[2021-04-24 07:33] LABS: BUN Creatinine Ratio 16.6 (10-20); Calcium 8.4 mg/dl (8.5-10.1); Creatinine Clr Calc Pharmacy 67.1 ml/min; Est GFR (African American) 89.5 ml/min; Est GFR (Non-African American) 77.2 ml/min; Magnesium 2.3 mg/dl (1.8-2.4); Phosphorus 3.3 mg/dl (2.5-4.9); Potassium 3.5 mmol/L (3.5-5.1)
[2021-04-24] MEDS: POTASSIUM CHLORIDE CRTAB 20 MEQ TABCR PO SCH ×2 (09:08→20:32)
[2021-04-24] MEDS: dilTIAZem HCL 30 MG TAB PO SCH ×2 (09:08→21:48)
[2021-04-24] MEDS: THIAMINE HCL 100 MG TAB PO SCH (09:09)
[2021-04-24] MEDS: rifAXIMin 550 MG TABLET PO SCH ×2 (09:09→20:31)
[2021-04-24] MEDS: SPIRONOLACTONE 12.5 MG TAB PO SCH (09:09)
[2021-04-24] MEDS: FUROSEMIDE 20 MG TAB PO SCH (09:10)
[2021-04-24] MEDS: LACTULOSE SYRUP 20 GM/30 ML UDC PO SCH ×2 (09:10→20:31)
[2021-04-24] MEDS: FOLIC ACID 1 MG TAB PO SCH (09:11)
[2021-04-24] MEDS: MULTIVITAMIN TAB PO SCH (09:11)
[2021-04-24] MEDS: GABAPENTIN 600 MG TAB PO SCH (11:59)
--- NOTE | 2021-04-24 13:15 | Electrocardiogram Report ---
Test Reason : Blood Pressure : / mmHG Vent. Rate : 170 BPM Atrial Rate : 138 BPM P-R Int : 000 ms QRS Dur : 088 ms QT Int : 292 ms P-R-T Axes : 000 096 -40 degrees QTc Int : 491 ms Atrial fibrillation with rapid ventricular response Possible Right ventricular hypertrophy Nonspecific ST and T wave abnormality Abnormal ECG When compared with ECG of 21-APR-2021 16:27, Significant changes have occurred Confirmed by Pierre Torrez ([id number]) on 04/24/2021 1:15:14 PM Referred By: REFERRED SELF Confirmed By:Pierre Torrez
--- NOTE | 2021-04-24 15:42 | Hospitalist Progress Note ---
Date of Service April 24, 2021 Assessment & Plan (1) Left-sided chest pain: Plan: Chest pain: patient presenting from home after a syncopal event in the setting of heavy alcohol use, no seizure like activity reported initial trop negative, EKG without acute ST changes suspected chest pain is due to pressure from ascites Troponin x 3 negative Echo showed right ventricular is moderately dilated. Right ventricular systolic function is moderately to severely reduced. Severe pulmonary hypertension with estimated pulmonary artery pressure of 95 mmhg. ejection fraction 55 to 60% Continue monitor in tele resolved Syncope: Mostly related to alcohol abuse CT head showed no acute intracranial findings No significant injury Alcoholic cirrhosis of liver with ascites: Has been very noncompliant He does not plan to stop drinking alcohol he said that he does not take his medications or follow with his doctor appointments GI on board He was on Xifaxan and lactulose and probably on Lasix and Aldactone as an outpatient Being very noncompliant he has not been taking any of those and are not in the med list Will start rifaximin 550 mg twice daily, lactulose 30 g 4 times daily, Lasix 40 mg daily and Aldactone 25 mg daily S/p paracentesis where 5.2 L ascites fluid removed today Lasix 20 mg daily resumed Alcohol abuse Continue to drink alcohol daily Multiple admissions for alcohol intoxication and withdrawal Continue Gabapentin and Ativan alcohol withdrawal protocol Last admission pt was getting 1can of beer during the admission course Continue Librium 10 mg 3 times daily to avoid to continue giving the can of beer Will monitor closely for alcohol withdrawal and DT Not interested to rehab because he said that he has been there before Will d/c Librium since night team restarted him on the Beer can TID Esophageal varices: non compliant w/ Xifaxan S/P paracentesis with 5.2 L ascites fluid removed Continue Rocephin for possible SBP Buttock wound Pressure ulcer of sacral region, stage 3 POA Continue daily wound care Wound care nurse on board No indication for antibiotics at this time. Will need follow-up with wound care clinic Paroxysmal atrial fibrillation: Ongoing noncompliant with atenolol surveillance monitor earlier today showed A. fib with RVR with rate between 150-180 Cardizem 10 mg IV x1 given and started on Cardizem 30 mg twice daily p.o. After a few minutes patient converted back to normal sinus rhythm not a candidate for anticoagulation secondary to medical noncompliance Continue monitor closely PCU Multiple thyroid nodules: Per last discharge summary few months ago: "Recently found to have marked bila teral lobe thyroid enlargeent by CT scan during an ER visit with several nodular densities of the supracalvicular and retroclavicular region concerning for neoplastic process. He was referred to ENT but has not been compliant with this." Does not follow up with appointment (Non compliant) History of pulmonary embolism: Not a candidate for anticoagulation secondary to history of medical noncom pliance and ongoing alcohol abuse Thrombocytopenia: Coagulopathy: Due to underlying liver disease platelets at baseline no signs of bleeding DVT prophylaxis: SCDs due to thrombocytopenia/coagulopathy Disposition Possible discharge in am Patient daughter requesting updates from providers. Ms. Atnonia Gao, contact #[phone]. Admission and Anticipated Discharge Date Admission Date: April 23, 2021 Subjective Pt was seen and examined for follow up abdominal and chest pain Lying in bed with no acute distress He is awake today and able to answer questions Not interested to rehab because he said that he has been there before He was converted to NSR and tele monitor showed no arrhythmia He was started back on the beer last night because he was started to be agitated Denies any chest pain, palpitation, dizziness and SOB Physical Exam Physical Exam: General- No acute distress Head- atraumatic Eyes- PERRL, EOMI, ENT- oropharynx clear Neck- supple, no JVD Lungs- clear to auscultation Heart- regular rhythm; no murmur Abdomen- normal bowel sounds, soft, nontender Extremities- no calf tenderness Neuro- alert, oriented x 3; PERRL, EOMI; no facial palsy; no dysarthria Skin- warm & dry Results & Data Results & Data ([facility]) Vital Signs (Past 12 Hours) Vital Signs Temp Pulse Pulse Resp BP BP Pulse Ox 04/24/21 15:30 36.9 C 76 20 109/72 98 04/24/21 14:30 79 04/24/21 11:33 36.6 C 72 17 105/71 93 04/24/21 08:09 36.6 C 69 18 113/77 97 04/24/21 07:30 71 04/24/21 04:00 36.7 C 88 19 101/78 99
[2021-04-24] MEDS: NICOTINE 14 MG/24 HR PATCH TD SCH (16:40)
[2021-04-24] MEDS: oxyCODONE HCL IR 5 MG TAB (IMMEDIATE RELEASE) PO PRN (19:14)
[2021-04-24] MEDS: cefTRIAXone SODIUM 1,000 MG in DEXTROSE 5% 50 ML IV SCH (20:29)
[2021-04-24] MEDS: MoRPHine SULFATE 2 MG/ML CARP IV PRN (23:00)
[2021-04-25] MEDS: oxyCODONE HCL IR 5 MG TAB (IMMEDIATE RELEASE) PO PRN ×3 (05:01→21:08)
[2021-04-25] MEDS: ACETAMINOPHEN 325 MG TAB PO PRN (05:01)
[2021-04-25] MEDS: BEER 1 CAN PO SCH ×3 (09:16→21:06)
[2021-04-25] MEDS: LACTULOSE SYRUP 20 GM/30 ML UDC PO SCH ×2 (09:17→20:38)
[2021-04-25] MEDS: POTASSIUM CHLORIDE CRTAB 20 MEQ TABCR PO SCH ×2 (09:17→20:39)
[2021-04-25] MEDS: FOLIC ACID 1 MG TAB PO SCH ×2 (09:17→09:18)
[2021-04-25] MEDS: THIAMINE HCL 100 MG TAB PO SCH (09:17)
[2021-04-25] MEDS: NICOTINE 14 MG/24 HR PATCH TD SCH (09:17)
[2021-04-25] MEDS: rifAXIMin 550 MG TABLET PO SCH ×2 (09:17→20:39)
[2021-04-25] MEDS: dilTIAZem HCL 30 MG TAB PO SCH ×2 (09:17→20:38)
[2021-04-25] MEDS: SPIRONOLACTONE 12.5 MG TAB PO SCH (09:17)
[2021-04-25] MEDS: FUROSEMIDE 20 MG TAB PO SCH (09:18)
[2021-04-25] MEDS: MULTIVITAMIN TAB PO SCH (09:18)
[2021-04-25] MEDS ORDERED: GABAPENTIN 600 MG TAB PO SCH (12:00)
--- NOTE | 2021-04-25 18:39 | Hospitalist Progress Note ---
Date of Service April 25, 2021 Assessment & Plan (1) Left-sided chest pain: Plan: Chest pain: patient presenting from home after a syncopal event in the setting of heavy alcohol use, no seizure like activity reported initial trop negative, EKG without acute ST changes suspected chest pain is due to pressure from ascites Troponin x 3 negative Echo showed right ventricular is moderately dilated. Right ventricular systolic function is moderately to severely reduced. Severe pulmonary hypertension with estimated pulmonary artery pressure of 95 mmhg. ejection fraction 55 to 60% Continue monitor in tele resolved Syncope: Mostly related to alcohol abuse CT head showed no acute intracranial findings No significant injury Alcoholic cirrhosis of liver with ascites: Has been very noncompliant He does not plan to stop drinking alcohol he said that he does not take his medications or follow with his doctor appointments GI on board He was on Xifaxan and lactulose and probably on Lasix and Aldactone as an outpatient Being very noncompliant he has not been taking any of those and are not in the med list Will start rifaximin 550 mg twice daily, lactulose 30 g 4 times daily, Lasix 40 mg daily and Aldactone 25 mg daily S/p paracentesis where 5.2 L ascites fluid removed today Continue Lasix 20 mg daily Alcohol abuse Continue to drink alcohol daily Multiple admissions for alcohol intoxication and withdrawal Continue Gabapentin and Ativan alcohol withdrawal protocol Last admission pt was getting 1can of beer during the admission course Continue Librium 10 mg 3 times daily to avoid to continue giving the can of beer Will monitor closely for alcohol withdrawal and DT Not interested to rehab because he said that he has been there before Will d/c Librium since night team restarted him on the Beer can TID Esophageal varices: non compliant w/ Xifaxan S/P paracentesis with 5.2 L ascites fluid removed Continue Rocephin for possible SBP Buttock wound Pressure ulcer of sacral region, stage 3 POA Continue daily wound care Wound care nurse on board No indication for antibiotics at this time. Will need follow-up with wound care clinic Paroxysmal atrial fibrillation: noncompliant with atenolol telemetry monitor earlier today showed A. fib with RVR with rate between 150-180 Cardizem 10 mg IV x1 given and started on Cardizem 30 mg twice daily p.o. After a few minutes patient converted back to normal sinus rhythm not a candidate for anticoagulation secondary to medical noncompliance Continue monitor closely PCU Multiple thyroid nodules: Per last discharge summary few months ago: "Recently found to have marked bilateral lobe thyroid enlargeent by CT scan during an ER visit with several nodular densities of the supracalvicular and retroclavicular region concerning for neoplastic process. He was referred to ENT but has not been compliant with this." Does not follow up with appointment (Non compliant) History of pulmonary embolism: Not a candidate for anticoagulation secondary to history of medical noncompliance and ongoing alcohol abuse Thrombocytopenia: Coagulopathy: Due to underlying liver disease platelets at baseline no signs of bleeding DVT prophylaxis: SCDs due to thrombocytopenia/coagulopathy Disposition Possible discharge in am Patient daughter requesting updates from providers. Ms. Antonia Gao, contact #[phone]. Admission and Anticipated Discharge Date Admission Date: April 23, 2021 Subjective Pt was seen and examined for follow up abdominal and chest pain Sitting in chair with no acute distress Pt is doing much better today Not interested to go to alcohol rehab because he said that he has been there before I called her daughter over the phone and no one answered He agreed to go to rehab to get stronger Denies any chest pain, palpitation, dizziness and SOB Physical Exam Physical Exam: General- No acute distress Head- atraumatic Eyes- PERRL, EOMI, ENT- oropharynx clear Neck- supple, no JVD Lungs- clear to auscultation Heart- regular rhythm; no murmur Abdomen- normal bowel sounds, soft, nontender Extremities- no calf tenderness Neuro- alert, oriented x 3; PERRL, EOMI; no facial palsy; no dysarthria Skin- warm & dry Results & Data Results & Data ([facility]) Vital Signs (Past 12 Hours) Vital Signs Temp Pulse Resp BP BP Pulse Ox 04/25/21 15:23 36.7 C 80 18 109/72 96 04/25/21 11:35 36.5 C 87 14 109/75 95 04/25/21 07:54 36.9 C 84 18 115/74 95
[2021-04-25] MEDS: cefTRIAXone SODIUM 1,000 MG in DEXTROSE 5% 50 ML IV SCH (20:38)
[2021-04-26] MEDS: NICOTINE 14 MG/24 HR PATCH TD SCH (08:32)
[2021-04-26] MEDS: THIAMINE HCL 100 MG TAB PO SCH (08:34)
[2021-04-26] MEDS: SPIRONOLACTONE 12.5 MG TAB PO SCH (08:34)
[2021-04-26] MEDS: rifAXIMin 550 MG TABLET PO SCH ×2 (08:34→20:59)
[2021-04-26] MEDS: FOLIC ACID 1 MG TAB PO SCH ×2 (08:35→08:36)
[2021-04-26] MEDS: POTASSIUM CHLORIDE CRTAB 20 MEQ TABCR PO SCH ×2 (08:35→20:59)
[2021-04-26] MEDS: MULTIVITAMIN TAB PO SCH (08:35)
[2021-04-26] MEDS: dilTIAZem HCL 30 MG TAB PO SCH ×2 (08:35→20:58)
[2021-04-26] MEDS: FUROSEMIDE 20 MG TAB PO SCH (08:36)
[2021-04-26] MEDS: LACTULOSE SYRUP 20 GM/30 ML UDC PO SCH ×2 (08:36→20:59)
[2021-04-26] MEDS: BEER 1 CAN PO SCH ×3 (08:44→20:57)
[2021-04-26] MEDS: ACETAMINOPHEN 325 MG TAB PO PRN (16:34)
[2021-04-26] MEDS: cefTRIAXone SODIUM 1,000 MG in DEXTROSE 5% 50 ML IV SCH (20:57)
--- NOTE | 2021-04-26 23:08 | Hospitalist Progress Note ---
Date of Service April 26, 2021 Assessment & Plan (1) Left-sided chest pain: Plan: Chest pain: patient presenting from home after a syncopal event in the setting of heavy alcohol use, no seizure like activity reported initial trop negative, EKG without acute ST changes suspected chest pain is due to pressure from ascites Troponin x 3 negative Echo showed right ventricular is moderately dilated. Right ventricular systolic function is moderately to severely reduced. Severe pulmonary hypertension with estimated pulmonary artery pressure of 95 mmhg. ejection fraction 55 to 60% Continue monitor in tele resolved Syncope: Mostly related to alcohol abuse CT head showed no acute intracranial findings No significant injury Alcoholic cirrhosis of liver with ascites: Has been very noncompliant He does not plan to stop drinking alcohol he said that he does not take his medications or follow with his doctor appointments GI on board He was on Xifaxan and lactulose and probably on Lasix and Aldactone as an outpatient Being very noncompliant he has not been taking any of those and are not in the med list Will start rifaximin 550 mg twice daily, lactulose 30 g 4 times daily, Lasix 40 mg daily and Aldactone 25 mg daily S/p paracentesis where 5.2 L ascites fluid removed today Continue Lasix 20 mg daily Alcohol abuse Continue to drink alcohol daily Multiple admissions for alcohol intoxication and withdrawal Continue Gabapentin and Ativan alcohol withdrawal protocol Last admission pt was getting 1can of beer during the admission course Continue Librium 10 mg 3 times daily to avoid to continue giving the can of beer Will monitor closely for alcohol withdrawal and DT Not interested to rehab because he said that he has been there before Librium discontinued since night team restarted him on the Beer can TID Esophageal varices: non compliant w/ Xifaxan S/P paracentesis with 5.2 L ascites fluid removed Continue Rocephin for possible SBP Buttock wound Pressure ulcer of sacral region, stage 3 POA Continue daily wound care Wound care nurse on board No indication for antibiotics at this time. Will need follow-up with wound care clinic Paroxysmal atrial fibrillation: noncompliant with atenolol equipment monitor phototypesetting earlier today showed A. fib with RVR with rate between 150-180 Cardizem 10 mg IV x1 given and started on Cardizem 30 mg twice daily p.o. After a few minutes patient converted back to normal sinus rhythm not a candidate for anticoagulation secondary to medical noncompliance Continue monitor closely PCU Multiple thyroid nodules: Per last discharge summary few months ago: "Recently found to have marked bilateral lobe thyroid enlargeent by CT scan during an ER visit with several nodular densities of the supracalvicular and retroclavicular region concerning for neoplastic process. He was referred to ENT but has not been compliant with this." Does not follow up with appointment (Non compliant) History of pulmonary embolism: Not a candidate for anticoagulation secondary to history of medical noncomplia nce and ongoing alcohol abuse Thrombocytopenia: Coagulopathy: Due to underlying liver disease platelets at baseline no signs of bleeding DVT prophylaxis: SCDs due to thrombocytopenia/coagulopathy Disposition Waiting for placement to rehab Patient daughter requesting updates from providers. Ms. Antonia Gao, contact #[phone]. Admission and Anticipated Discharge Date Admission Date: April 23, 2021 Subjective Pt was seen and examined for follow up abdominal and chest pain Sitting in chair with no acute distress Pt is doing much better today and wants to go home Not interested to go to alcohol rehab because he said that he has been there before I tried calling yesterday her daughter over the phone and no one answered Not safe to go home and therapy recommend inpatient rehab Denies any chest pain, palpitation, dizziness and SOB Physical Exam Physical Exam: General- No acute distress Head- atraumatic Eyes- PERRL, EOMI, ENT- oropharynx clear Neck- supple, no JVD Lungs- clear to auscultation Heart- regular rhythm; no murmur Abdomen- normal bowel sounds, soft, nontender Extremities- no calf tenderness Neuro- alert, oriented x 3; PERRL, EOMI; no facial palsy; no dysarthria Skin- warm & dry Results & Data Results & Data ([facility]) Vital Signs (Past 12 Hours) Vital Signs Temp Pulse Pulse Resp BP BP Pulse Ox 04/26/21 22:40 36.9 C 82 19 96/58 L 95 04/26/21 18:56 37.0 C 85 19 95/60 L 97 04/26/21 16:15 36.9 C 83 19 102/62 95 04/26/21 16:02 89 04/26/21 14:19 91 H 04/26/21 11:40 36.8 C 106 H 19 112/71 91
[2021-04-26] MEDS: oxyCODONE HCL IR 5 MG TAB (IMMEDIATE RELEASE) PO PRN (23:33)
[2021-04-27] MEDS: BEER 1 CAN PO SCH ×2 (08:06→14:48)
[2021-04-27] MEDS: NICOTINE 14 MG/24 HR PATCH TD SCH (08:55)
[2021-04-27] MEDS: MULTIVITAMIN TAB PO SCH (08:56)
[2021-04-27] MEDS: FUROSEMIDE 20 MG TAB PO SCH (08:57)
[2021-04-27] MEDS: SPIRONOLACTONE 12.5 MG TAB PO SCH (08:57)
[2021-04-27] MEDS: rifAXIMin 550 MG TABLET PO SCH (08:57)
[2021-04-27] MEDS: FOLIC ACID 1 MG TAB PO SCH ×2 (08:57→08:58)
[2021-04-27] MEDS: THIAMINE HCL 100 MG TAB PO SCH (08:57)
[2021-04-27] MEDS: dilTIAZem HCL 30 MG TAB PO SCH (08:58)
[2021-04-27] MEDS: LACTULOSE SYRUP 20 GM/30 ML UDC PO SCH (08:59)
[2021-04-27] MEDS: POTASSIUM CHLORIDE CRTAB 20 MEQ TABCR PO SCH (09:03)
[2021-04-27 10:55] VITALS: BP 102/61; PULSE 90; TEMP 97.9; O2SAT 98
--- NOTE | 2021-04-27 14:54 | Discharge Summary ---
Date of Service April 27, 2021 Admission HPI Per Admitting Provider History obtained from the patient and records. Medical history significant for alcoholic cirrhosis, COPD, ongoing tobacco/alcohol abuse, PAF/hx PE not on anticoagulation 2 to GI bleed, mood disorder, chronic thrombocytopenia, chronic anemia (baseline hemoglobin of 10-12), hypothyroidism, thyroid nodules as per records. Last confinement March 2021 for alcohol abuse and ascites status post paracentesis. 4 L removed as per documentation. Transudative fluid based on results. Patient also noted to have sacral pressure ulcer not infected prior to confinement. Patient not compliant with home discharge medications which included atenolol, spironolactone, Xifaxan, lactulose, thiamine, folic acid, and Lasix.. No PCP follow-up since discharge from the hospital. Persistent achy abdominal pain, nausea vomiting, and progressive abdominal distention upon discharge as per patient. Abdominal pain occasionally radiating to the left chest. Patient denies black/bloody stools. Usual shortness of breath with usual smoker's cough symptoms as per patient. Poor appetite. Usual achy migraine headaches as per patient. Patient daughter witnessed two syncopal events at home described as loss of consciousness for about a few minutes associated with drooling. No witnessed GTC seizures/incontinence. Medical History as above Surgical History : Cholecystectomy Family History : Leukemia, thyroid cancer, heart disease Personal/Social history : Ongoing tobacco/alcohol abuse, disabled Principal Diagnosis Alcohol abuse Alcoholic liver disease Alcoholics cirrhosis of liver with ascites Atrial fibrillation Buttock wound Discharge Exam Constitutional Chronically ill appearing Eyes Icteric sclera ENMT Poor dentition Neck trachea midline, no thyromegaly Respiratory normal respiratory effort, lungs clear to auscultation Cardiovascular RRR, no murmur, no edema Gastrointestinal (Abdomen) Percussion/Palpation: abdomen soft; abdomen nontender Musculoskeletal Gait: normal gait Skin no rashes Neurologic PERRL, EOMI, accommodation nl, no face palsy, no dysarthria Psychiatric A+Ox3, euthymic affect Discharge Data Allergies Allergy/AdvReac Type Severity Reaction Status Date / Time fentanyl Allergy Intermediate RASH ALL Verified 04/21/21 19:12 OVER BODY Consultations 04/21/21 20:49 ED Decision to Admit Stat 04/21/21 22:00 Consult Gastroenterology QSE Ordered Studies 04/21/21 18:27 CT abd pelvis wo con Stat 04/21/21 21:27 CT head/brain wo con Urgent 04/22/21 09:00 US paracentesis abd w/image Routine Hospital Course (1) Left-sided chest pain: Chest pain: Noncardiac, atypical presentation patient presenting from home after a syncopal event in the setting of heavy alcohol use, no seizure like activity reported initial trop negative, EKG without acute ST changes suspected chest pain is due to pressure from ascites Troponin x 3 negative Echo showed right ventricular is moderately dilated. Right ventricular systolic function is moderately to severely reduced. Severe pulmonary hypertension with estimated pulmonary artery pressure of 95 mmhg. ejection fraction 55 to 60% Chest pain, symptom has completely resolved. Syncope: Mostly related to alcohol abuse CT head showed no acute intracranial findings No significant injury PT OT evaluation requested, Alcoholic cirrhosis of liver with ascites: History of heavy alcohol abuse He does not plan to stop drinking alcohol GI consulted, He was on Xifaxan and lactulose and probably on Lasix and Aldactone as an outpatient Patient has been noncompliant, does not take any other medications Will start rifaximin 550 mg twice daily, lactulose 30 g 4 times daily, Lasix 40 mg daily and Aldactone 25 mg daily S/p paracentesis where 5.2 L ascites fluid removed Would be discharged on Lasix 20 mg daily Aldactone 25 mg daily, rifaximin and lactulose Appointment scheduled to follow-up with Saji RENE in the clinic Alcohol abuse Continue to drink alcohol daily Multiple admissions for alcohol intoxication and withdrawal Continue Gabapentin and Ativan alcohol withdrawal protocol Not interested to rehab because he said that he has been there before Esophageal varices: non compliant w/ Xifaxan S/P paracentesis with 5.2 L ascites fluid removed Buttock wound Pressure ulcer of sacral region, stage 3 POA Continue daily wound care Wound care nurse on board No indication for antibiotics at this time. Will need follow-up with wound care clinic Paroxysmal atrial fibrillation: noncompliant with atenolol started on Cardizem 30 mg twice daily p.o. patient converted back to normal sinus rhythm not a candidate for anticoagulation secondary to medical noncompliance/alcohol abuse intoxication, high fall risk Multiple thyroid nodules: Per last discharge summary few months ago: "Recently found to have marked bilateral lobe thyroid enlargeent by CT scan during an ER visit with several nodular densities of the supracalvicular and retroclavicular region concerning for neoplastic process. He was referred to ENT but has not been compliant with this." Does not follow up with appointment (Non compliant) History of pulmonary embolism: Not a candidate for anticoagulation secondary to history of medical noncompliance and ongoing alcohol abuse Thrombocytopenia: Coagulopathy: Due to underlying liver disease platelets at baseline no signs of bleeding DVT prophylaxis: SCDs due to thrombocytopenia/coagulopathy Disposition Patient does not want to go to rehab, PT eval appreciated, patient ambulated 250 feet with minimal loss of balance, recommends to return home Patient is discharged home today Total Time Total Time Spent Total Time Spent (In Minutes): 35 minutes Discharge Plan Discharge Items Patient Disposition: Home - Self-Care Reason For Visit: CP, ABD PAIN, TROP ELEV Discharge Diagnosis: Alcohol abuse Alcoholic liver disease Alcoholics cirrhosis of liver with ascites Atrial fibrillation Buttock wound Activity: Resume your previous activity Non-emergency contact: Primary Care Provider Call non-emergency contact if: you have any medication questions Follow-up/Referrals: [facility] for W[facility] Care [Other] - 05/03/21 1:00 pm Jean Dave MD [Primary Care Provider] - (Date & Time 05/02/2021 11:00 AM Provider Michael Izaguirre MD Department Family [facility] ) Dorina Lazar CRNP [Nurse Practitioner] - (Date & Time 04/28/2021 12:00 PM Provider NIXON Rizo Department Gastroenterology, [facility] ) Diet: Low Sodium (2gm) Addtl Attending Provider Instructions: It is very important for you to quit drinking alcohol, continue to drink will cause permanent liver failure, Need to follow-up with gastroenterology for your alcoholic liver disease Follow-up at the wound clinic for sacral/buttock wound Pending Studies at Discharge: No Stand-Alone Forms: [facility], Smoking Cessation Medications and DC Order Prescriptions: New atenolol 25 mg Tablet 25 mg PO QAM 30 Days Qty: 30 RF: 0 spironolactone 25 mg Tablet 12.5 mg PO DAILY 30 Days Qty: 15 RF: 0 furosemide 20 mg Tablet 20 mg PO QAM 30 Days Qty: 30 RF: 0 diltiazem HCl 30 mg Tablet 30 mg PO BID 30 Days Qty: 60 RF: 0 Xifaxan 550 mg Tablet 550 mg PO BID 30 Days Qty: 60 RF: 0 lactulose 20 gram/30 mL Solution 30 ml PO BID Qty: 1200 RF: 0 thiamine HCl (vitamin B1) [Vitamin B-1] 100 mg Tablet 100 mg PO QAM 30 Days Qty: 30 RF: 0 potassium chloride [Klor-Con M20] 20 mEq Tablet,Er Particles/Crystals 20 meq PO BID 30 Days Qty: 60 RF: 0 folic acid 1 mg Tablet 1 mg PO QAM 30 Days Qty: 30 RF: 0 Discharge Orders: Discharge Order (Routine); Ordered 04/27/21 Ordered By: America Newell Admission Data Admit Date/Time: 04/23/21 22:11 Attending Provider: America Newell Admit Provider: Cayden Salazar Primary Care Provider: Jean Dave Other Providers: Cayden Salazar ; Lupe Marino ; Kathy Cramer ; Gm Cox ; Heydi Jean ; Abdullahi Suh ; Hilda Nieves ; Milton Palma ; Gadiel Lawrence ; Dorina Lazar ; Glo Alvarado ; Amber Maza ; Adalgisa Royal ; Ira Mathis ; [facility] ; [facility] ; [facility], Other Interventions: Discharge Summary Assessment (RN) Last Done: 04/27/21 15:02
== END 2021-04-27 16:20 | disposition home or self-care (01) | DRG 432 ==
LOC: ED 16:15 → EDINP 16:15 → 2S 04-22 15:44 → SUATTDRO 04-23 22:11

== ENCOUNTER 2021-07-17 17:16 | Inpatient (IN) ==
[2021-07-17] MEDS ORDERED: SODIUM CHLORIDE 0.9% 500 ML IV STA (18:08)
[2021-07-17] MEDS ORDERED: MoRPHine SULFATE 4 MG/ML 1 ML CARP\\VIAL IV STA (18:08)
--- NOTE | 2021-07-17 18:12 | Emergency Department Note ---
Impression & Plan Cirrhosis, Alcohol abuse, Liver dysfunction, Thrombocytopenia ED Provider Note NAME: ARLENE FOWLER AGE: 55 SEX: M : 1965 ARRIVES VIA: Ambulance INFORMANT: Patient, ED PROVIDER(S): Donnie Hill MD Chief Complaint: Chest pain, abdominal pain, testicular swelling HPI: Patient does presents present with concern for chest abdominal as well as body pain. The patient has had associated chest pains. The patient states that he has not been drinking recently. Patient denies any fevers or chills. The patient is concerned about some abdominal and lower extremity swelling. Patient has noticed some weight gain. The patient also is concerned as he believes he has right-sided testicular swelling as well as and area of swelling over his bellybutton. Patient states that he has not had any vomiting. Patient had a recent bowel movement. No dysuria or hematuria. No blood in the stools. Patient is unvaccinated for Covid. ROS: See HPI for pertinent positives and negatives. A total of 10 systems were reviewed and otherwise negative. Past medical history: See below Surgical history: See below Social history: See below Physical Exam: GENERAL: Appears older than stated age, chronically ill in appearance, NAD, [wearing a mask,] non-toxic. EYE EXAM: Normal conjunctiva. PERRL, no anisocoria and EOM's grossly intact w/o pain. NECK: Supple, no nuchal rigidity, no adenopathy, non-tender. No signs of meningismus. LUNGS: Clear to auscultation. Normal chest wall mechanics. HEART: Tachycardic and regular, no MRG. ABDOMEN: Abdomen soft, mild abdominal pain over the umbilicus, semireducible hernia, no surrounding erythema fluctuance crepitus or drainage,, normo-active bowel sounds, no masses, no rebound or guarding. BACK: No CVA TTP. SKIN: No rashes and no bruising. : Circumcised, bilateral testes descended, reducible right-sided inguinal hernia. UPPER EXTREMITIES: Upper extremities are grossly normal. LOWER EXTREMITIES: Grossly normal, no edema. NEURO EXAM: A&O x3, cranial nerves II-XII grossly intact, normal speech, moves all 4 extremities on command w/o issue. Differential diagnoses: Appendicitis, testicular torsion, infections, diverticulitis, UTI, obstruction, mesenteric ischemia, aortic pathology, inflammatory bowel disease, renal colic, PUD, pancreatitis, biliary pathology, hernia, volvulus, constipation, as well as other pathologies. Course: Patient was seen and evaluated the bedside. Full history physical exam was performed. Imaging Studies: See Below [Cardiac monitoring: An order was placed for continuous cardiac monitoring. The monitor shows a rate of 125 with tachycardic and regular rhythm.] MDM: Patient did present with multiple complaints. The patient did have blood work completed along with CT abdomen pelvis and chest x-ray. Patient does have a normal white count but anemia and thrombocytopenia likely secondary to the patient's chronic alcohol abuse. The patient does have hyponatremia hypocalcemia hypomagnesemia. Bilirubin 8.2. Patient did receive IV fluids. Alcohol is 205. CT abdomen pelvis did show large volume ascites and cirrhosis. No evidence of diverticulitis. Small umbilical hernia containing fluid. Large right-sided inguinal hernia containing fluid. I did speak with the on-call hospitalist Dr. Fu and the patient was admitted to the medicine service. Patient was given Ativan and Librium given the patient's chronic alcohol use. Past Med/Surg History Medical History Alcohol abuse Surgical History No pertinent past surgical history Social History Smoking Status: Current every day smoker Tobacco Type: Cigarettes Hx Alcohol Use: Yes Hx Substance Use: No Feels Safe at Home: Yes Allergies Allergies Allergy/AdvReac Type Severity Reaction Status Date / Time fentanyl Allergy Mild rash Verified 07/18/21 00:41 Home Meds Home Medications Medication Instructions Recorded Confirmed Unobtainable 07/18/21 07/18/21 Results & Data (ED) Vital Signs Vital Signs - 24 hr 07/17/21 17:33 07/17/21 17:40 07/17/21 18:00 Temperature 36.6 C Temperature Source Oral Pulse Rate 128 H 128 H 146 H Pulse Rhythm Regular Pulse Strength Normal Respiratory Rate 20 16 20 Respiratory Effort / Characteristics Non-Labored Spontaneous Respiratory Depth Normal Respiratory Pattern Regular Blood Pressure 119/85 133/78 Blood Pressure Mean 96 96 Blood Pressure Position Sitting Pulse Oximetry 98 99 96 Oxygen Delivery Method Room Air Sepsis Recent Fever Within 48 Hours No Sepsis New/Unexplained Change in Mental Status N/A Sepsis Action Taken by Nursing No Action Required 07/17/21 18:30 07/17/21 18:49 07/17/21 19:00 Temperature Temperature Source Pulse Rate 127 H 127 H Pulse Rhythm Pulse Strength Respiratory Rate 20 19 Respiratory Effort / Characteristics Respiratory Depth Respiratory Pattern Blood Pressure 122/89 112/85 Blood Pressure Mean 100 94 Blood Pressure Position Pulse Oximetry 98 95 Oxygen Delivery Method Room Air Sepsis Recent Fever Within 48 Hours Sepsis New/Unexplained Change in Mental Status Sepsis Action Taken by Nursing 07/17/21 19:30 07/17/21 20:00 07/17/21 20:30 Temperature Temperature Source Pulse Rate 127 H 127 H Pulse Rhythm Pulse Strength Respiratory Rate 20 22 17 Respiratory Effort / Characteristics Respiratory Depth Respiratory Pattern Blood Pressure 121/83 130/83 Blood Pressure Mean 95 98 Blood Pressure Position Pulse Oximetry 98 98 93 Oxygen Delivery Method Sepsis Recent Fever Within 48 Hours Sepsis New/Unexplained Change in Mental Status Sepsis Action Taken by Nursing 07/17/21 21:00 07/17/21 21:30 Temperature Temperature Source Pulse Rate 127 H 127 H Pulse Rhythm Pulse Strength Respiratory Rate 18 17 Respiratory Effort / Characteristics Respiratory Depth Respiratory Pattern Blood Pressure 114/80 121/70 Blood Pressure Mean 91 87 Blood Pressure Position Pulse Oximetry 92 96 Oxygen Delivery Method Sepsis Recent Fever Within 48 Hours Sepsis New/Unexplained Change in Mental Status Sepsis Action Taken by [facility] Medic[facility] Current Medication List: was personally reviewed by me Laboratory Data Attestation: I reviewed the patient's lab results. Result diagrams: 07/17/21 18:40 07/17/21 18:40 Lab Results 07/17/21 07/17/21 07/17/21 Range/Units 18:40 18:40 18:40 WBC 5.24 (4.8-10.8) K/uL RBC 2.58 L (4.7-6.1) M/uL Hgb 10.2 L (14.0-18.0) g/dL Hct 29.7 L (42-52) % MCV 115.1 H (80-100) fL MCH 39.5 H (25-34) pg MCHC 34.3 (32-36) g/dL RDW Std Deviation 68.7 H (36.4-46.3) fL RDW Coeff of Hernandez 16.5 H (11.5-14.5) % Plt Count 86 L (130-400) K/uL MPV 11.0 H (7.4-10.4) fL Immature Gran % (Auto) 0.8 % Neut % (Auto) 59.0 % Lymph % (Auto) 23.1 % Crane % (Auto) 14.1 % Eos % (Auto) 1.3 % Baso % (Auto) 1.7 % Neut # (Auto) 3.09 (1.4-6.5) K/uL Lymph # (Auto) 1.21 (1.2-3.4) K/uL Crane # (Auto) 0.74 H (0.11-0.59) K/uL Eos # (Auto) 0.07 (0-0.5) K/uL Baso # (Auto) 0.09 (0-0.2) K/uL Immature Gran # (Auto) 0.04 H (0.00-0.02) K/uL Platelet Estimate Decreased L (Normal) Macrocytosis Present PT (9.0-12.0) Seconds INR (0.9-1.1) Sodium 128 L (136-145) mmol/L Potassium 3.6 (3.5-5.1) mmol/L Chloride 98 (98-107) mmol/L Carbon Dioxide 23 (21-32) mmol/L Anion Gap 8.0 (3-11) BUN 4 L (7-18) mg/dl Creatinine 0.87 (0.6-1.4) mg/dl Est Cr Clr Drug Dosing 90.9 ml/min Est GFR ( Amer) 111.8 ml/min Est GFR (Non-Af Amer) 96.5 ml/min BUN/Creatinine Ratio 4.7 L (10-20) Glucose 96 (70-99) mg/dl Osmolality (280-300) mOsm/kg Lactate (0.4-2.0) mmol/L Calcium 7.2 L (8.5-10.1) mg/dl Ionized Calcium (1.12-1.32) mmol/L Magnesium 1.7 L (1.8-2.4) mg/dl Total Bilirubin 8.2 H (0.2-1) mg/dl AST 89 H (15-37) U/L ALT 36 (12-78) U/L Alkaline Phosphatase 94 (45-117) U/L Ammonia (11-32) umol/L Troponin I 0.024 (0-0.045) ng/ml NT-Pro-B Natriuret Pep 628 (0-900) pg/ml Total Protein 8.3 H (6.4-8.2) gm/dl Albumin 1.2 L (3.4-5.0) gm/dl Globulin 7.1 H (2.5-4.0) gm/dl Albumin/Globulin Ratio 0.2 L (0.9-2) Lipase 244 (73-393) U/L Procalcitonin (0-0.5) ng/ml Ethyl Alcohol mg/dL 205.4 H (0-3) mg/dl Blood Type Antibody Screen 07/18/21 07/18/21 07/18/21 Range/Units 00:03 00:03 00:03 WBC (4.8-10.8) K/uL RBC (4.7-6.1) M/uL Hgb (14.0-18.0) g/dL Hct (42-52) % MCV (80-100) fL MCH (25-34) pg MCHC (32-36) g/dL RDW Std Deviation (36.4-46.3) fL RDW Coeff of Hernandez (11.5-14.5) % Plt Count (130-400) K/uL MPV (7.4-10.4) fL Immature Gran % (Auto) % Neut % (Auto) % Lymph % (Auto) % Crane % (Auto) % Eos % (Auto) % Baso % (Auto) % Neut # (Auto) (1.4-6.5) K/uL Lymph # (Auto) (1.2-3.4) K/uL Crane # (Auto) (0.11-0.59) K/uL Eos # (Auto) (0-0.5) K/uL Baso # (Auto) (0-0.2) K/uL Immature Gran # (Auto) (0.00-0.02) K/uL Platelet Estimate (Normal) Macrocytosis PT 18.5 H (9.0-12.0) Seconds INR 1.9 H (0.9-1.1) Sodium (136-145) mmol/L Potassium (3.5-5.1) mmol/L Chloride (98-107) mmol/L Carbon Dioxide (21-32) mmol/L Anion Gap (3-11) BUN (7-18) mg/dl Creatinine (0.6-1.4) mg/dl Est Cr Clr Drug Dosing ml/min Est GFR ( Amer) ml/min Est GFR (Non-Af Amer) ml/min BUN/Creatinine Ratio (10-20) Glucose (70-99) mg/dl Osmolality 309 H (280-300) mOsm/kg Lactate (0.4-2.0) mmol/L Calcium (8.5-10.1) mg/dl Ionized Calcium (1.12-1.32) mmol/L Magnesium (1.8-2.4) mg/dl Total Bilirubin (0.2-1) mg/dl AST (15-37) U/L ALT (12-78) U/L Alkaline Phosphatase (45-117) U/L Ammonia (11-32) umol/L Troponin I (0-0.045) ng/ml NT-Pro-B Natriuret Pep (0-900) pg/ml Total Protein (6.4-8.2) gm/dl Albumin (3.4-5.0) gm/dl Globulin (2.5-4.0) gm/dl Albumin/Globulin Ratio (0.9-2) Lipase (73-393) U/L Procalcitonin (0-0.5) ng/ml Ethyl Alcohol mg/dL (0-3) mg/dl Blood Type O Positive Antibody Screen NEGATIVE 07/18/21 07/18/21 07/18/21 Range/Units 00:03 00:03 00:03 WBC (4.8-10.8) K/uL RBC (4.7-6.1) M/uL Hgb (14.0-18.0) g/dL Hct (42-52) % MCV (80-100) fL MCH (25-34) pg MCHC (32-36) g/dL RDW Std Deviation (36.4-46.3) fL RDW Coeff of Hernandez (11.5-14.5) % Plt Count (130-400) K/uL MPV (7.4-10.4) fL Immature Gran % (Auto) % Neut % (Auto) % Lymph % (Auto) % Crane % (Auto) % Eos % (Auto) % Baso % (Auto) % Neut # (Auto) (1.4-6.5) K/uL Lymph # (Auto) (1.2-3.4) K/uL Crane # (Auto) (0.11-0.59) K/uL Eos # (Auto) (0-0.5) K/uL Baso # (Auto) (0-0.2) K/uL Immature Gran # (Auto) (0.00-0.02) K/uL Platelet Estimate (Normal) Macrocytosis PT (9.0-12.0) Seconds INR (0.9-1.1) Sodium (136-145) mmol/L Potassium (3.5-5.1) mmol/L Chloride (98-107) mmol/L Carbon Dioxide (21-32) mmol/L Anion Gap (3-11) BUN (7-18) mg/dl Creatinine (0.6-1.4) mg/dl Est Cr Clr Drug Dosing ml/min Est GFR ( Amer) ml/min Est GFR (Non-Af Amer) ml/min BUN/Creatinine Ratio (10-20) Glucose (70-99) mg/dl Osmolality (280-300) mOsm/kg Lactate 2.6 H* (0.4-2.0) mmol/L Calcium (8.5-10.1) mg/dl Ionized Calcium (1.12-1.32) mmol/L Magnesium (1.8-2.4) mg/dl Total Bilirubin (0.2-1) mg/dl AST (15-37) U/L ALT (12-78) U/L Alkaline Phosphatase (45-117) U/L Ammonia 22.6 (11-32) umol/L Troponin I (0-0.045) ng/ml NT-Pro-B Natriuret Pep (0-900) pg/ml Total Protein (6.4-8.2) gm/dl Albumin (3.4-5.0) gm/dl Globulin (2.5-4.0) gm/dl Albumin/Globulin Ratio (0.9-2) Lipase (73-393) U/L Procalcitonin 0.07 (0-0.5) ng/ml Ethyl Alcohol mg/dL (0-3) mg/dl Blood Type Antibody Screen 07/18/21 Range/Units 00:03 WBC (4.8-10.8) K/uL RBC (4.7-6.1) M/uL Hgb (14.0-18.0) g/dL Hct (42-52) % MCV (80-100) fL MCH (25-34) pg MCHC (32-36) g/dL RDW Std Deviation (36.4-46.3) fL RDW Coeff of Hernandez (11.5-14.5) % Plt Count (130-400) K/uL MPV (7.4-10.4) fL Immature Gran % (Auto) % Neut % (Auto) % Lymph % (Auto) % Crane % (Auto) % Eos % (Auto) % Baso % (Auto) % Neut # (Auto) (1.4-6.5) K/uL Lymph # (Auto) (1.2-3.4) K/uL Crane # (Auto) (0.11-0.59) K/uL Eos # (Auto) (0-0.5) K/uL Baso # (Auto) (0-0.2) K/uL Immature Gran # (Auto) (0.00-0.02) K/uL Platelet Estimate (Normal) Macrocytosis PT (9.0-12.0) Seconds INR (0.9-1.1) Sodium (136-145) mmol/L Potassium (3.5-5.1) mmol/L Chloride (98-107) mmol/L Carbon Dioxide (21-32) mmol/L Anion Gap (3-11) BUN (7-18) mg/dl Creatinine (0.6-1.4) mg/dl Est Cr Clr Drug Dosing ml/min Est GFR ( Amer) ml/min Est GFR (Non-Af Amer) ml/min BUN/Creatinine Ratio (10-20) Glucose (70-99) mg/dl Osmolality (280-300) mOsm/kg Lactate (0.4-2.0) mmol/L Calcium (8.5-10.1) mg/dl Ionized Calcium 1.06 L (1.12-1.32) mmol/L Magnesium (1.8-2.4) mg/dl Total Bilirubin (0.2-1) mg/dl AST (15-37) U/L ALT (12-78) U/L Alkaline Phosphatase (45-117) U/L Ammonia (11-32) umol/L Troponin I (0-0.045) ng/ml NT-Pro-B Natriuret Pep (0-900) pg/ml Total Protein (6.4-8.2) gm/dl Albumin (3.4-5.0) gm/dl Globulin (2.5-4.0) gm/dl Albumin/Globulin Ratio (0.9-2) Lipase (73-393) U/L Procalcitonin (0-0.5) ng/ml Ethyl Alcohol mg/dL (0-3) mg/dl Blood Type Antibody Screen Administered Medications Magnesium Sulfate/Dextrose (Magnesium Sulfate / D5w) 1 gm in 100 mls @ 50 mls/hr IV Q2H ARMANDO Stop: 07/18/21 04:44 Last Admin: 07/18/21 01:29 Dose: 50 mls/hr Documented by: [id number] Discontinued Medications Chlordiazepoxide HCl (Chlordiazepoxide Hcl 25 Mg Cap) 50 mg PO NOW ONE Stop: 07/17/21 22:18 Last Admin: 07/17/21 22:34 Dose: 50 mg Documented by: [id number] Sodium Chloride (Nss) 500 mls @ 999 mls/hr IV .Q31M STA Stop: 07/17/21 18:38 Last Infusion: 07/17/21 20:45 Dose: 999 mls/hr Documented by: [id number] Admin: 07/17/21 18:37 Dose: 999 mls/hr Documented by: [id number] Lorazepam (Ativan) 1 mg in 2 mls @ 2 mls/min IV NOW STA Stop: 07/17/21 22:18 Last Admin: 07/17/21 22:34 Dose: 2 mls/min Documented by: [id number] Thiamine HCl 100 mg/ Syringe 10 mls @ 2 mls/min IV NOW STA Stop: 07/17/21 23:32 Last Admin: 07/18/21 01:08 Dose: 2 mls/min Documented by: [id number] Ceftriaxone Sodium (Rocephin) 1,000 mg in 50 mls @ 100 mls/hr IV NOW STA Stop: 07/18/21 01:10 Last Admin: 07/18/21 01:13 Dose: 100 mls/hr Documented by: [id number] Ioversol (Optiray 320 100ml) 92 ml IV ONCE ONE Stop: 07/17/21 21:24 Last Admin: 07/17/21 21:24 Dose: 92 ml Documented by: [id number] Morphine Sulfate (Morphine Sulfate 4 Mg/Ml 1 Ml Carp\Vial) 4 mg IV NOW STA Stop: 07/17/21 18:09 Last Admin: 07/17/21 18:37 Dose: 4 mg Documented by: [id number] Imaging Data Radiologist's Impression: Chest X-Ray 07/17/21 18:08 SINGLE VIEW CHEST CLINICAL HISTORY: Dyspnea. Atypical chest pain. FINDINGS: An AP, portable, upright chest radiograph is obtained. No prior studies are available for comparison at the time of dictation. The examination is mildly degraded by portable technique and patient rotation. The heart is enlarged noting atherosclerotic calcification of the thoracic aorta. The pulmonary vasculature is noncongested. Enlargement of the central pulmonary arteries suggests pulmonary artery hypertension. The lungs and pleural spaces are clear. No pneumothorax is seen. The bony thorax is grossly intact. IMPRESSION: Cardiomegaly with no acute cardiopulmonary abnormality. ACT 112: Negative or not required by law. Electronically signed by: Salazar Segura M.D. 07/17/2021 7:17 PM Discharge Plan Visit Data Chief Complaint: Shortness of Breath/Dyspnea ED Provider: Donnie Hill Discharge Problem: Cirrhosis, Alcohol abuse, Liver dysfunction, Thrombocytopenia Patient Disposition: Admitted As Inpatient Forms Stand Alone Forms: [facility] Medical Prescriptions Prescriptions: No Action Unobtainable RF: 0 Referrals Referrals: PCP,NO [Physician] -
[2021-07-17 19:15] LABS: Hematocrit (blood only) 29.7 % (42-52); Hemoglobin 10.2 g/dL (14.0-18.0); Mean Corpuscular Hemoglobin 39.5 pg (25-34); Mean Corpuscular Hgb Conc 34.3 g/dL (32-36); Mean Corpuscular Volume 115.1 fL (80-100); Platelet Count 86 K/uL (130-400); RDW Coefficient of Variation 16.5 % (11.5-14.5); RDW Standard Deviation 68.7 fL (36.4-46.3); Red Blood Count 2.58 M/uL (4.7-6.1); White Blood Count 5.24 K/uL (4.8-10.8)
[2021-07-17 19:16] LABS: Basophils # (auto) 0.09 K/uL (0-0.2); Basophils % (auto) 1.7 %; Eosinophils # (auto) 0.07 K/uL (0-0.5); Eosinophils % (auto) 1.3 %; Immature Granulocytes # (auto) 0.04 K/uL (0.00-0.02); Immature Granulocytes % (auto) 0.8 %; Lymphocytes # (auto) 1.21 K/uL (1.2-3.4); Lymphocytes % (auto) 23.1 %; Macrocytosis Present; Monocytes # (auto) 0.74 K/uL (0.11-0.59); Monocytes % (auto) 14.1 %; Neutrophils # (auto) 3.09 K/uL (1.4-6.5); Platelet Estimate Decreased (Normal)
[2021-07-17 19:18] LABS: Albumin Globulin Ratio 0.2 (0.9-2); Albumin Level 1.2 gm/dl (3.4-5.0); BUN Creatinine Ratio 4.7 (10-20); Bilirubin,Total 8.2 mg/dl (0.2-1); Calcium 7.2 mg/dl (8.5-10.1); Creatinine Clr Calc Pharmacy 90.9 ml/min; Est GFR (African American) 111.8 ml/min; Est GFR (Non-African American) 96.5 ml/min; Globulin 7.1 gm/dl (2.5-4.0); Potassium 3.6 mmol/L (3.5-5.1); Total Protein 8.3 gm/dl (6.4-8.2); Troponin I 0.024 ng/ml (0-0.045)
--- NOTE | 2021-07-17 19:18 | XRay Report ---
SINGLE VIEW CHEST CLINICAL HISTORY: Dyspnea. Atypical chest pain. FINDINGS: An AP, portable, upright chest radiograph is obtained. No prior studies are available for c omparison at the time of dictation. The examination is mildly degraded by portable technique and mariana ent rotation. The heart is enlarged noting atherosclerotic calcification of the thoracic aorta. The pulmonary vasculature is noncongested. Enlargement of the central pulmonary arteries suggests pulmona ry artery hypertension. The lungs and pleural spaces are clear. No pneumothorax is seen. The bony tho rax is grossly intact. IMPRESSION: Cardiomegaly with no acute cardiopulmonary abnormality. ACT 112: Negative or not required by law. Electronically signed by: Salazar Segura M.D. 07/17/2021 7:17 PM
[2021-07-17] MEDS ORDERED: OPTIRAY 320 100ml IV ONE (21:23)
[2021-07-17] MEDS ORDERED: LORazepam 1 MG/2 ML VIAL IV STA (22:17)
[2021-07-17] MEDS ORDERED: chlordiazePOXIDE HCl 25 MG CAP PO ONE (22:17)
[2021-07-17] MEDS ORDERED: THIAMINE HCL 100 MG in SYRINGE 9 ML IV STA (23:28)
[2021-07-17 23:52] LABS: Magnesium 1.7 mg/dl (1.8-2.4)
[2021-07-18 00:29] LABS: INR 1.9 (0.9-1.1); Prothrombin Time 18.5 Seconds (9.0-12.0)
[2021-07-18] MEDS ORDERED: cefTRIAXone SODIUM 1,000 MG/50 ML BAG IV STA (00:41)
--- NOTE | 2021-07-18 01:08 | History & Physical Report ---
Date of Service July 18, 2021 Assessment & Plan (1) Abdominal pain: Plan: Multifactorial: Ascites, possible SBP, decompensated alcoholic cirrhosis, possible sepsis Colitis rule out C. difficile hx COPD, ongoing tobacco abuse PAF/hx PE not on anticoagulation 2 to GI bleed, patient NSR Acute on chronic anemia, hemoglobin drop from last baseline Hypokalemia secondary to poor p.o. intake hypothyroidism, chronic TSH elevation secondary to medication noncompliance thyroid nodules as per records, possible malignancy as per records, noncompliant with outpatient specialist recommendations PCU CS, Zosyn for colitis and possible SBP Albumin for presumptive SBP Diagnostic/therapeutic paracentesis in a.m. Stool C. difficile GI consult Re: Recurrent ascites, decompensated cirrhosis WALDEMAR S, DT precautions Serial H&H, transfuse PRBC if hemoglobin less than 7 and or for symptomatic anemia DVT prophylaxis. SCDs thrombocytopenia Full code Patient requests for his daughter to be updated of plan of care. Ms. Antonia Gao, contact #[phone]. Text document was generated using sellpoints recognition software. It may contain grammatical or spelling errors. Kindly contact undersigned for clarification of any documentation item in question. Plan: Multifactorial: Ascites, possible SBP, decompensated alcoholic cirrhosis, possible sepsis Colitis rule out C. difficile hx COPD, ongoing tobacco abuse Rapid atrial flutter secondary to illness, hx PAF/hx PE not on anticoagulation 2 to GI bleed Acute on chronic anemia, hemoglobin drop from last baseline Hypokalemia secondary to poor p.o. intake hypothyroidism, chronic TSH elevation secondary to medication noncompliance thyroid nodules as per records, possible malignancy as per records, noncompliant with outpatient specialist recommendations PCU CS, Zosyn for colitis and possible SBP Albumin for presumptive SBP Diagnostic/therapeutic paracentesis in a.m. Stool C. difficile GI consult Re: Recurrent ascites, decompensated cirrhosis WALDEMAR S, DT precautions Serial H&H, transfuse PRBC if hemoglobin less than 7 and or for symptomatic anemia DVT prophylaxis. SCDs thrombocytopenia Full code Patient requests for his daughter to be updated of plan of care. Ms. Antonia Gao, contact #[phone]. Text document was generated using sellpoints recognition software. It may contain grammatical or spelling errors. Kindly contact undersigned for clarification of any documentation item in question. History of Present Illness Chief Complaint: Abdominal pain/distention Primary Care Provider: Jean Dave MD History obtained from the patient and records. Medical history significant for alcoholic cirrhosis, COPD, ongoing tobacco/alcohol abuse, PAF/hx PE not on anticoagulation 2 to GI bleed, mood disorder, chronic thrombocytopenia, chronic anemia (baseline hemoglobin of 10-12), hypothyroidism, thyroid nodules as per records, medication noncompliance. Last confinement April 2021 for noncardiac chest pain and syncope. Patient went back to drinking alcohol shortly after discharge from the hospital. Patient not seen PCP since discharge from the hospital. Few days history of worsening abdominal distention and lower leg swelling. Achy abdominal pain going to the chest. Diarrhea mixed with blood as per patient. Fever chills at home as per patient. Patient consulted ER for evaluation. Medical History as above Surgical History : Cholecystectomy Family History : Leukemia, thyroid cancer, heart disease Personal/Social history : Ongoing tobacco/alcohol abuse, disabled Allergies Allergy/AdvReac Type Severity Reaction Status Date / Time fentanyl Allergy Intermediate RASH ALL Verified 07/18/21 08:49 OVER BODY Home Medications Medication Instructions Recorded Confirmed Type No Known Home Medications 06/15/21 06/15/21 History Unobtainable 07/18/21 07/18/21 History Past Med/Surg History Medical History Alcohol abuse Alcohol dependence Alcoholic cirrhosis of liver with ascites Alcoholic cirrhosis of liver with ascites Chest pain Chronic anxiety Chronic obstructive pulmonary disease Chronic pancreatitis COVID-19 Esophageal varices Hypertension Hypothyroidism On home oxygen therapy Paroxysmal atrial fibrillation Portal hypertension Portal vein thrombosis Pulmonary embolism Pulmonary HTN Seizure Syncope Thrombocytopenia Tobacco abuse Surgical History H/O colonoscopy History of cholecystectomy "2009" History of esophagogastroduodenoscopy (EGD) "12/15/2014- Small varices. Erosive duodenitis." 01/09/17 - esophageal varicies, gastritis Family History (System 07/18/21 @ 08:49 by Miranda Osborne) Mother Diabetes Father Coronary heart disease Social History (System 07/18/21 @ 08:49 by Miranda Osborne) Smoking Status: Current every day smoker Tobacco Type: Cigarettes Cigarettes Per Day: 10; Second Hand Exposure: No; Hx Alcohol Use: Yes Alcohol type: beer Alcohol Intake Frequency Comment: 4 32 oz [facility] daily Hx Substance Use: No Preferred Language: Estonian Communication Ability: Impaired Visual Impairment: No Limitations Private Eye Required: No Beliefs That Will Affect Care: None marital status: Current Living Situation: Parent and Family Current Living Situation Comment: parents Other Information That Helps Us Care for You: No Feels Safe at Home: Yes Safety Concerns: Feels Safe At This Time Assistive Devices: None Review of Systems Review of Systems: As per HPI, all 10 systems reviewed, all other ROS negative Physical Exam Physical Exam: GENERAL: Intoxicated, chronically ill, no respiratory distress SKIN: Pallor,, warm HEENT: Alopecia, pale palpebral conjunctivae, no ptosis, dry buccal mucosa NECK : Supple, no tenderness CHEST : Decreased breath sounds, occasional expiratory wheezes, no tenderness HEART : Tachycardic, no obvious murmurs ABDOMEN: distention, fluid wave, central abdominal tenderness EXTREMITIES : Minimal LE swelling, no LE tenderness, no other conspicuous deformities noted NEUROLOGIC : Intoxicated, no facial asymmetry, tremulous, no other gross focality Results & Data Results & Data ([facility]) Vital Signs (Past 12 Hours) Vital Signs Temp Pulse Resp BP Pulse Ox 07/17/21 21:30 127 H 17 121/70 96 07/17/21 21:00 127 H 18 114/80 92 07/17/21 20:30 127 H 17 130/83 93 07/17/21 20:00 22 98 07/17/21 19:30 127 H 20 121/83 98 07/17/21 19:00 127 H 19 112/85 07/17/21 18:49 95 07/17/21 18:30 127 H 20 122/89 98 07/17/21 18:00 146 H 20 133/78 96 07/17/21 17:40 36.6 C 128 H 16 119/85 99 07/17/21 17:33 128 H 20 98 Laboratory Results Laboratory Results WBC 5.24 K/uL (4.8-10.8) 07/17/21 18:40 RBC 2.58 M/uL (4.7-6.1) L 07/17/21 18:40 Hgb 10.2 g/dL (14.0-18.0) L 07/17/21 18:40 Hct 29.7 % (42-52) L 07/17/21 18:40 MCV 115.1 fL (80-100) H 07/17/21 18:40 MCH 39.5 pg (25-34) H 07/17/21 18:40 MCHC 34.3 g/dL (32-36) 07/17/21 18:40 RDW Std Deviation 68.7 fL (36.4-46.3) H 07/17/21 18:40 RDW Coeff of Hernandez 16.5 % (11.5-14.5) H 07/17/21 18:40 Plt Count 86 K/uL (130-400) L 07/17/21 18:40 MPV 11.0 fL (7.4-10.4) H 07/17/21 18:40 Immature Gran % (Auto) 0.8 % 07/17/21 18:40 Neut % (Auto) 59.0 % 07/17/21 18:40 Lymph % (Auto) 23.1 % 07/17/21 18:40 Burt % (Auto) 14.1 % 07/17/21 18:40 Eos % (Auto) 1.3 % 07/17/21 18:40 Baso % (Auto) 1.7 % 07/17/21 18:40 Neut # (Auto) 3.09 K/uL (1.4-6.5) 07/17/21 18:40 Lymph # (Auto) 1.21 K/uL (1.2-3.4) 07/17/21 18:40 Burt # (Auto) 0.74 K/uL (0.11-0.59) H 07/17/21 18:40 Eos # (Auto) 0.07 K/uL (0-0.5) 07/17/21 18:40 Baso # (Auto) 0.09 K/uL (0-0.2) 07/17/21 18:40 Immature Gran # (Auto) 0.04 K/uL (0.00-0.02) H 07/17/21 18:40 Platelet Estimate Decreased (Normal) L 07/17/21 18:40 Macrocytosis Present 07/17/21 18:40 PT 18.5 Seconds (9.0-12.0) H 07/18/21 00:03 INR 1.9 (0.9-1.1) H 07/18/21 00:03 Sodium 128 mmol/L (136-145) L 07/17/21 18:40 Potassium 3.6 mmol/L (3.5-5.1) 07/17/21 18:40 Chloride 98 mmol/L (98-107) 07/17/21 18:40 Carbon Dioxide 23 mmol/L (21-32) 07/17/21 18:40 Anion Gap 8.0 (3-11) 07/17/21 18:40 BUN 4 mg/dl (7-18) L 07/17/21 18:40 Creatinine 0.87 mg/dl (0.6-1.4) 07/17/21 18:40 Est Cr Clr Drug Dosing 90.9 ml/min 07/17/21 18:40 Est GFR ( Amer) 111.8 ml/min 07/17/21 18:40 Est GFR (Non-Af Amer) 96.5 ml/min 07/17/21 18:40 BUN/Creatinine Ratio 4.7 (10-20) L 07/17/21 18:40 Glucose 96 mg/dl (70-99) 07/17/21 18:40 Osmolality 309 mOsm/kg (280-300) H 07/18/21 00:03 Lactate 2.6 mmol/L (0.4-2.0) H* 07/18/21 00:03 Calcium 7.2 mg/dl (8.5-10.1) L 07/17/21 18:40 Ionized Calcium 1.06 mmol/L (1.12-1.32) L 07/18/21 00:03 Magnesium 1.7 mg/dl (1.8-2.4) L 07/17/21 18:40 Total Bilirubin 8.2 mg/dl (0.2-1) H 07/17/21 18:40 AST 89 U/L (15-37) H 07/17/21 18:40 ALT 36 U/L (12-78) 07/17/21 18:40 Alkaline Phosphatase 94 U/L (45-117) 07/17/21 18:40 Ammonia 22.6 umol/L (11-32) 07/18/21 00:03 Troponin I 0.024 ng/ml (0-0.045) 07/17/21 18:40 NT-Pro-B Natriuret Pep 628 pg/ml (0-900) 07/17/21 18:40 Total Protein 8.3 gm/dl (6.4-8.2) H 07/17/21 18:40 Albumin 1.2 gm/dl (3.4-5.0) L 07/17/21 18:40 Globulin 7.1 gm/dl (2.5-4.0) H 07/17/21 18:40 Albumin/Globulin Ratio 0.2 (0.9-2) L 07/17/21 18:40 Lipase 244 U/L (73-393) 07/17/21 18:40 Ethyl Alcohol mg/dL 205.4 mg/dl (0-3) H 07/17/21 18:40 Impressions Chest X-Ray 07/17/21 18:08 SINGLE VIEW CHEST CLINICAL HISTORY: Dyspnea. Atypical chest pain. FINDINGS: An AP, portable, upright chest radiograph is obtained. No prior studies are available for comparison at the time of dictation. The examination is mildly degraded by portable technique and patient rotation. The heart is enlarged noting atherosclerotic calcification of the thoracic aorta. The pulmonary vasculature is noncongested. Enlargement of the central pulmonary arteries suggests pulmonary artery hypertension. The lungs and pleural spaces are clear. No pneumothorax is seen. The bony thorax is grossly intact. IMPRESSION: Cardiomegaly with no acute cardiopulmonary abnormality. ACT 112: Negative or not required by law. Electronically signed by: Salazar Segura M.D. 07/17/2021 7:[address] abdomen pelvis initial read: No prior examfor comparison. Mild left-sided pleural effusion. Bilateral lower lobe atelectasis. Borderline cardiomegaly. Heterogeneous liver with nodular margins suggestive of cirrhosis. Status post cholecystectomy otherwise unremarkable biliarysystem. Large ascites. Normal size of the spleen. Normal liver, bilateral adrenal glands and bilateral kidneys. Borderline thickening of the wall of the small bowel, cannot exclude enteritis. Thickening of the wall throughout the right: Which mayindicate cirrhotic colopathyversus colitis. There is scattered diverticulosiswith no signs of diverticulitis. There is a small umbilical hernia containing fluid. There is a large right-sided inguinal hernia containing fluid. Calcified atherosclerotic disease of aortawith no aneurysm. Diffuse osteopeniawith mild degenerative disease of the spine. EKG as per my interpretation : Rate 125, atrial flutter, normal axis, RBBB
[2021-07-18] MEDS ORDERED: PHYTONADIONE 10 MG in SODIUM CHLORIDE 0.9% 50 ML IV ONE (01:11)
[2021-07-18] MEDS: MAGNESIUM SULFATE / D5W 1 GM/100 ML BAG IV SCH ×2 (01:29→04:24)
[2021-07-18] MEDS ORDERED: PIPERACILL/TAZOBAC CONSULT ACTIVE PRN (01:53)
[2021-07-18] MEDS ORDERED: PIPERACILLIN/TAZOBACTAM 4.5 GM/120 ML BAG IV STA (02:05)
[2021-07-18] MEDS: ALBUMIN 25% 12.5 GM/50 ML VIAL IV SCH ×5 (02:40→20:03)
[2021-07-18] MEDS ORDERED: ATIVAN IV ALCOHOL WITHDRAWL IV PRN (03:40)
[2021-07-18] MEDS ORDERED: oxyCODONE HCL IR 5 MG TAB (IMMEDIATE RELEASE) PO PRN (03:40)
[2021-07-18] MEDS ORDERED: PROMETHAZINE HCL 12.5 MG in SODIUM CHLORIDE 0.9% 50 ML IV PRN (03:40)
[2021-07-18] MEDS ORDERED: ACETAMINOPHEN 325 MG TAB PO PRN (03:40)
[2021-07-18] MEDS ORDERED: LORazepam 3 MG/6 ML VIAL IV PRN (03:40)
[2021-07-18] MEDS ORDERED: LORazepam 1 MG/2 ML VIAL IV PRN (03:40)
[2021-07-18 04:16] LABS: Appearance Urine Clear (Clear); Bacteria Urine Automated 1+ (Negative); Blood Urine 3+ (Negative); Color Urine Orange; Glucose Urine UA Negative (Negative); Ketones Urine Negative (Negative); Leukocyte Esterase Urine 1+ (Negative); Nitrite Urine Positive (Negative); Protein Urine Trace (Negative); RBC Urine Automated >30 /hpf (0-4); Specific Gravity Urine 1.042 (1.000-1.030); Urobilinogen Urine Positive (Negative)
[2021-07-18 04:32] LABS: Bilirubin Urine 2+ (Negative)
[2021-07-18] MEDS ORDERED: CALCIUM GLUCONATE 10% 1,000 MG in SODIUM CHLORIDE 0.9% 50 ML IV STA (05:37)
[2021-07-18 07:15] LABS: Hematocrit (blood only) 25.4 % (42-52); Hemoglobin 8.8 g/dL (14.0-18.0); Mean Corpuscular Hemoglobin 39.5 pg (25-34); Mean Corpuscular Hgb Conc 34.6 g/dL (32-36); Mean Corpuscular Volume 113.9 fL (80-100); RDW Coefficient of Variation 16.9 % (11.5-14.5); RDW Standard Deviation 69.1 fL (36.4-46.3); Red Blood Count 2.23 M/uL (4.7-6.1); White Blood Count 5.12 K/uL (4.8-10.8)
[2021-07-18 07:25] LABS: Prothrombin Time 19.3 Seconds (9.0-12.0)
[2021-07-18 07:32] LABS: Albumin Globulin Ratio 0.3 (0.9-2); Albumin Level 1.6 gm/dl (3.4-5.0); BUN Creatinine Ratio 5.9 (10-20); Calcium 7.7 mg/dl (8.5-10.1); Creatinine Clr Calc Pharmacy 106.7 ml/min; Est GFR (African American) 120.2 ml/min; Est GFR (Non-African American) 103.7 ml/min; Magnesium 2.2 mg/dl (1.8-2.4); Potassium 3.5 mmol/L (3.5-5.1); Total Protein 7.6 gm/dl (6.4-8.2)
[2021-07-18 07:46] LABS: Basophils # (auto) 0.07 K/uL (0-0.2); Basophils % (auto) 1.4 %; Eosinophils # (auto) 0.15 K/uL (0-0.5); Eosinophils % (auto) 2.9 %; Immature Granulocytes # (auto) 0.05 K/uL (0.00-0.02); Lymphocytes # (auto) 1.09 K/uL (1.2-3.4); Lymphocytes % (auto) 21.3 %; Macrocytosis Present; Mean Platelet Volume 10.7 fL (7.4-10.4); Monocytes # (auto) 0.69 K/uL (0.11-0.59); Monocytes % (auto) 13.5 %; Neutrophils # (auto) 3.07 K/uL (1.4-6.5); Neutrophils % (auto) 59.9 %; Platelet Count 72 K/uL (130-400); Rouleaux 1+
[2021-07-18] MEDS: MULTIVITAMIN TAB PO SCH (08:13)
[2021-07-18] MEDS: FOLIC ACID 1 MG TAB PO SCH (08:13)
[2021-07-18] MEDS: PIPERACILLIN/TAZOBACTAM 3.375 GM in DEXTROSE 5% 100 ML IV SCH ×3 (08:14→23:42)
--- NOTE | 2021-07-18 08:39 | Gastrointestinal Consultation ---
Date of Consultation July 18, 2021 Assessment & Plan (1) Abdominal pain: 55 year old male with ETOH cirrhosis, continued ETOH use although decreasing, diuretic refractory ascites, medical noncompliance admitted w/ abd pain, lower extremity pain and ? of rectal bleeding. HGB down 5 pts from OP labs one year ago. No BUN elevation. - Trend H&H - Monitor and document for s/s of GI bleed - Transfuse HGB < 7 - IV PPI bolus and drip - Consider EGD/Colonoscopy tomorrow - Watch for ETOH withdrawal - Diagnostic paracentesis to rule out SBP - Consider Zosyn - Consider Albumin - Continue folic acid and thiamine. - Can restart OP Lasix 40 mg daily - Can restart [id number] mg daily - Xifaxan 550 mg BID - Once again ETOH cessation is recommended - Low NA diet, less than 2G daily - Less than 2G Tylenol containing products if using - No NSAIDs (2) Cirrhosis: Supervising Physician Co-Signing Physician Notes Late entry: Ptient was seen and examined. Chart reviewed. On 07/18 with NIXON Patrick whose note reflects our findings and plan. ETOH decompensated cirrhosis with continued ETOH use. adm with abd pain. Ascites. Rectal bleeding. Drop in H/H noted. Will consider EGD/colo if able to toelrate prep and stable. History of Present Illness Reason for Consultation: abd pain, elevated tbili Requesting Physician: Fanny Attending Physician: Richar Escobedo MD History of Present Illness 55 year old male w/ history of ETOH cirrhosis, continued ETOH use, ascites, EV, history of medical noncompliance not seen in GI clinic in about one year due to frequent no shows admitted w/ lower extremity pain, GI asked to evaluate for abd pain, GIB. Pt was seen and evaluated, chart reviewed. He is tired, was up all night and just feel asleep. Awakes to name. Oriented to person, place. Is a vague historian but answering questions appropriate. He notes that he has had generalized abd pain x 3 days. Soreness. No associated nausea/vomiting. No GERD. Denies change in bowel habits. He reports moving bowels daily. Soft stools. Brown stools. no black or bloody stools reported to me. In the ED note pt did report to them he had loose stools mixed with some blood. Diagnosis:alcoholic cirrhosis,ongoing ETOH abuse Decompensations: Varices: none Ascites:news/p diagnostic paracentesisNo SBP.SAAG 0.8, portal htn not necessary cause of ascites. FluidNEGATIVE FOR MALIGNANCY, 2.4L 06/15 HE: none Screenings: MELD-Na score: 19 at 05/21/2020 12:05 PM Calculated from: Serum Creatinine: 0.8 mg/dL (Rounded to 1 mg/dL) at 05/21/2020 12:05 PM Serum Sodium: 142 mmol/L (Rounded to 137 mmol/L) at 05/21/2020 12:05 PM Total Bilirubin: 5.2 mg/dL at 05/21/2020 12:05 PM INR(ratio): 1.82 at 05/21/2020 12:05 PM Age: 54 years Maddrey: due HCC: duein November Varices: 2021 Immunizations:Immune to HepA/HepB EGD 2020:Z-line regular, 38 cm from the incisors.Portal hypertensive gastropathy. Normal examined duodenum Colonoscopy 2019:Non-thrombosed external hemorrhoids found on digital rectal exam.The examined portion of the ileum was normal. Moderate diverticulosis in the sigmoid colon and in the descending colon. Internal hemorrhoids. Allergies Allergy/AdvReac Type Severity Reaction Status Date / Time fentanyl Allergy Intermediate RASH ALL Verified 07/18/21 08:49 OVER BODY Home Medications Medication Instructions Recorded Confirmed Type No Known Home Medications 06/15/21 06/15/21 History Unobtainable 07/18/21 07/18/21 History Patient History Medical History Alcohol abuse Alcoholic cirrhosis of liver with ascites Chest pain Chronic anxiety Chronic obstructive pulmonary disease Chronic pancreatitis COVID-19 Esophageal varices Hypertension Hypothyroidism On home oxygen therapy Palliative care encounter Paroxysmal atrial fibrillation Portal hypertension Portal vein thrombosis Pulmonary embolism Pulmonary HTN Seizure Syncope Thrombocytopenia Tobacco abuse Surgical History H/O colonoscopy History of cholecystectomy "2009" History of esophagogastroduodenoscopy (EGD) "12/15/2014- Small varices. Erosive duodenitis." 01/09/17 - esophageal varicies, gastritis No pertinent past surgical history Family History Mother Diabetes Father Coronary heart disease Social History Smoking Status: Current every day smoker Tobacco Type: Cigarettes Cigarettes Per Day: 10; Second Hand Exposure: No; Hx Alcohol Use: Yes Alcohol type: beer Alcohol Intake Frequency Comment: 4 32 oz renner high life daily Hx Substance Use: No Preferred Language: Bengali Communication Ability: Impaired Visual Impairment: No Limitations Hand Spring Former Required: No Beliefs That Will Affect Care: None marital status: Unknown Current Living Situation: Parent and Family Current Living Situation Comment: parents Other Information That Helps Us Care for You: No Feels Safe at Home: Yes Safety Concerns: Feels Safe At This Time Assistive Devices: None Review of Systems Review of Systems: All systems reviewed & are unremarkable except as noted in HPI & below Physical Exam Constitutional: WD/WN, vitals as above Neck: trachea midline, no thyromegaly Respiratory: normal respiratory effort, lungs clear to auscultation Cardiovascular: RRR, no murmur, no edema Gastrointestinal (Abdomen): normal bowel sounds, soft, nontender, no he patosplenomegaly Skin: jaundice Results & Data ([facility]) Vital Signs (Past 12 Hours) Vital Signs Temp Pulse Pulse Resp BP BP BP 07/18/21 07:37 36.4 C L 127 H 20 104/72 07/18/21 03:40 36.7 C 127 H 16 106/76 07/18/21 03:17 127 H 16 137/71 07/18/21 02:53 126 H 20 115/80 07/18/21 02:30 128 H 16 115/80 07/18/21 02:00 128 H 21 07/18/21 01:30 128 H 18 119/72 07/18/21 01:00 128 H 18 119/70 07/18/21 00:30 132 H 18 07/18/21 00:00 128 H 13 07/17/21 23:30 133 H 18 107/79 07/17/21 23:00 127 H 17 125/84 07/17/21 22:30 127 H 17 108/84 07/17/21 22:00 126 H 16 113/70 07/17/21 21:30 127 H 17 121/70 07/17/21 21:00 127 H 18 114/80 07/17/21 20:30 127 H 17 130/83 Pulse Ox Pulse Ox 07/18/21 07:37 94 07/18/21 03:40 100 100 07/18/21 03:17 96 07/18/21 02:53 100 07/18/21 02:30 100 07/18/21 02:00 100 07/18/21 01:30 100 07/18/21 01:00 100 07/18/21 00:30 100 07/18/21 00:00 96 07/17/21 23:30 92 07/17/21 23:00 92 07/17/21 22:30 94 07/17/21 22:00 95 07/17/21 21:30 96 07/17/21 21:00 92 07/17/21 20:30 93 Laboratory Results 07/18/21 07/18/21 07/18/21 Range/Units Unknown Unknown 07:01 WBC (4.8-10.8) K/uL RBC (4.7-6.1) M/uL Hgb (14.0-18.0) g/dL Hct (42-52) % MCV (80-100) fL MCH (25-34) pg MCHC (32-36) g/dL RDW Std Deviation (36.4-46.3) fL RDW Coeff of Hernandez (11.5-14.5) % Plt Count (130-400) K/uL MPV (7.4-10.4) fL Immature Gran % (Auto) % Neut % (Auto) % Lymph % (Auto) % Porter % (Auto) % Eos % (Auto) % Baso % (Auto) % Neut # (Auto) (1.4-6.5) K/uL Lymph # (Auto) (1.2-3.4) K/uL Porter # (Auto) (0.11-0.59) K/uL Eos # (Auto) (0-0.5) K/uL Baso # (Auto) (0-0.2) K/uL Immature Gran # (Auto) (0.00-0.02) K/uL Platelet Estimate (Normal) Macrocytosis Rouleaux PT 19.3 H (9.0-12.0) Seconds INR 2.0 H (0.9-1.1) Sodium (136-145) mmol/L Potassium (3.5-5.1) mmol/L Chloride (98-107) mmol/L Carbon Dioxide (21-32) mmol/L Anion Gap (3-11) BUN (7-18) mg/dl Creatinine (0.6-1.4) mg/dl Est Cr Clr Drug Dosing ml/min Est GFR ( Amer) ml/min Est GFR (Non-Af Amer) ml/min BUN/Creatinine Ratio (10-20) Glucose (70-99) mg/dl Osmolality (280-300) mOsm/kg Lactate (0.4-2.0) mmol/L Calcium (8.5-10.1) mg/dl Ionized Calcium (1.12-1.32) mmol/L Magnesium (1.8-2.4) mg/dl Total Bilirubin (0.2-1) mg/dl AST (15-37) U/L ALT (12-78) U/L Alkaline Phosphatase (45-117) U/L Ammonia (11-32) umol/L Troponin I (0-0.045) ng/ml NT-Pro-B Natriuret Pep (0-900) pg/ml Total Protein (6.4-8.2) gm/dl Albumin (3.4-5.0) gm/dl Globulin (2.5-4.0) gm/dl Albumin/Globulin Ratio (0.9-2) Lipase (73-393) U/L Procalcitonin (0-0.5) ng/ml Urine Color Urine Appearance (Clear) Urine pH (4.5-7.5) Ur Specific [place] (1.000-1.030) Urine Protein (Negative) Urine Glucose (UA) (Negative) Urine Ketones (Negative) Urine Blood (Negative) Urine Nitrite (Negative) Urine Bilirubin (Negative) Urine Urobilinogen (Negative) Ur Leukocyte Esterase (Negative) Urine WBC (Auto) (0-5) /hpf Urine RBC (Auto) (0-4) /hpf U Hyaline Cast (Auto) (0-5) /lpf U Epithel Cells (Auto) (0-5) /lpf Urine Bacteria (Auto) (Negative) Ethyl Alcohol mg/dL (0-3) mg/dl COVID-19 Eval Order Covid19 at [facility] SARS-CoV-2 (PCR) NEGATIVE (Negative) Blood Type Antibody Screen 07/18/21 07/18/21 07/18/21 Range/Units 07:01 07:01 07:01 WBC 5.12 (4.8-10.8) K/uL RBC 2.23 L (4.7-6.1) M/uL Hgb 8.8 L (14.0-18.0) g/dL Hct 25.4 L (42-52) % MCV 113.9 H (80-100) fL MCH 39.5 H (25-34) pg MCHC 34.6 (32-36) g/dL RDW Std Deviation 69.1 H (36.4-46.3) fL RDW Coeff of Hernandez 16.9 H (11.5-14.5) % Plt Count 72 L (130-400) K/uL MPV 10.7 H (7.4-10.4) fL Immature Gran % (Auto) 1.0 % Neut % (Auto) 59.9 % Lymph % (Auto) 21.3 % Porter % (Auto) 13.5 % Eos % (Auto) 2.9 % Baso % (Auto) 1.4 % Neut # (Auto) 3.07 (1.4-6.5) K/uL Lymph # (Auto) 1.09 L (1.2-3.4) K/uL Porter # (Auto) 0.69 H (0.11-0.59) K/uL Eos # (Auto) 0.15 (0-0.5) K/uL Baso # (Auto) 0.07 (0-0.2) K/uL Immature Gran # (Auto) 0.05 H (0.00-0.02) K/uL Platelet Estimate (Normal) Macrocytosis Present Rouleaux 1+ PT (9.0-12.0) Seconds INR (0.9-1.1) Sodium 129 L (136-145) mmol/L Potassium 3.5 (3.5-5.1) mmol/L Chloride 100 (98-107) mmol/L Carbon Dioxide 22 (21-32) mmol/L Anion Gap 8.0 (3-11) BUN 4 L (7-18) mg/dl Creatinine 0.73 (0.6-1.4) mg/dl Est Cr Clr Drug Dosing 106.7 ml/min Est GFR ( Amer) 120.2 ml/min Est GFR (Non-Af Amer) 103.7 ml/min BUN/Creatinine Ratio 5.9 L (10-20) Glucose 88 (70-99) mg/dl Osmolality (280-300) mOsm/kg Lactate 2.0 (0.4-2.0) mmol/L Calcium 7.7 L (8.5-10.1) mg/dl Ionized Calcium (1.12-1.32) mmol/L Magnesium 2.2 (1.8-2.4) mg/dl Total Bilirubin 11.0 H (0.2-1) mg/dl AST 72 H (15-37) U/L ALT 32 (12-78) U/L Alkaline Phosphatase 78 (45-117) U/L Ammonia (11-32) umol/L Troponin I (0-0.045) ng/ml NT-Pro-B Natriuret Pep (0-900) pg/ml Total Protein 7.6 (6.4-8.2) gm/dl Albumin 1.6 L (3.4-5.0) gm/dl Globulin 6.0 H (2.5-4.0) gm/dl Albumin/Globulin Ratio 0.3 L (0.9-2) Lipase (73-393) U/L Procalcitonin (0-0.5) ng/ml Urine Color Urine Appearance (Clear) Urine pH (4.5-7.5) Ur Specific Ridge (1.000-1.030) Urine Protein (Negative) Urine Glucose (UA) (Negative) Urine Ketones (Negative) Urine Blood (Negative) Urine Nitrite (Negative) Urine Bilirubin (Negative) Urine Urobilinogen (Negative) Ur Leukocyte Esterase (Negative) Urine WBC (Auto) (0-5) /hpf Urine RBC (Auto) (0-4) /hpf U Hyaline Cast (Auto) (0-5) /lpf U Epithel Cells (Auto) (0-5) /lpf Urine Bacteria (Auto) (Negative) Ethyl Alcohol mg/dL (0-3) mg/dl COVID-19 Eval Order SARS-CoV-2 (PCR) (Negative) Blood Type Antibody Screen 07/18/21 07/18/21 07/18/21 Range/Units 04:00 00:03 00:03 WBC (4.8-10.8) K/uL RBC (4.7-6.1) M/uL Hgb (14.0-18.0) g/dL Hct (42-52) % MCV (80-100) fL MCH (25-34) pg MCHC (32-36) g/dL RDW Std Deviation (36.4-46.3) fL RDW Coeff of Hernandez (11.5-14.5) % Plt Count (130-400) K/uL MPV (7.4-10.4) fL Immature Gran % (Auto) % Neut % (Auto) % Lymph % (Auto) % Porter % (Auto) % Eos % (Auto) % Baso % (Auto) % Neut # (Auto) (1.4-6.5) K/uL Lymph # (Auto) (1.2-3.4) K/uL Porter # (Auto) (0.11-0.59) K/uL Eos # (Auto) (0-0.5) K/uL Baso # (Auto) (0-0.2) K/uL Immature Gran # (Auto) (0.00-0.02) K/uL Platelet Estimate (Normal) Macrocytosis Rouleaux PT (9.0-12.0) Seconds INR (0.9-1.1) Sodium (136-145) mmol/L Potassium (3.5-5.1) mmol/L Chloride (98-107) mmol/L Carbon Dioxide (21-32) mmol/L Anion Gap (3-11) BUN (7-18) mg/dl Creatinine (0.6-1.4) mg/dl Est Cr Clr Drug Dosing ml/min Est GFR ( Amer) ml/min Est GFR (Non-Af Amer) ml/min BUN/Creatinine Ratio (10-20) Glucose (70-99) mg/dl Osmolality (280-300) mOsm/kg Lactate (0.4-2.0) mmol/L Calcium (8.5-10.1) mg/dl Ionized Calcium 1.06 L (1.12-1.32) mmol/L Magnesium (1.8-2.4) mg/dl Total Bilirubin (0.2-1) mg/dl AST (15-37) U/L ALT (12-78) U/L Alkaline Phosphatase (45-117) U/L Ammonia (11-32) umol/L Troponin I (0-0.045) ng/ml NT-Pro-B Natriuret Pep (0-900) pg/ml Total Protein (6.4-8.2) gm/dl Albumin (3.4-5.0) gm/dl Globulin (2.5-4.0) gm/dl Albumin/Globulin Ratio (0.9-2) Lipase (73-393) U/L Procalcitonin 0.07 (0-0.5) ng/ml Urine Color [place] Urine Appearance Clear (Clear) Urine pH 6.0 (4.5-7.5) Ur Specific Ridge 1.042 H (1.000-1.030) Urine Protein Trace H (Negative) Urine Glucose (UA) Negative (Negative) Urine Ketones Negative (Negative) Urine Blood 3+ H (Negative) Urine Nitrite Positive A (Negative) Urine Bilirubin 2+ H (Negative) Urine Urobilinogen Positive H (Negative) Ur Leukocyte Esterase 1+ H (Negative) Urine WBC (Auto) 5-10 H (0-5) /hpf Urine RBC (Auto) >30 H (0-4) /hpf U Hyaline Cast (Auto) 1-5 (0-5) /lpf U Epithel Cells (Auto) 10-20 H (0-5) /lpf Urine Bacteria (Auto) 1+ H (Negative) Ethyl Alcohol mg/dL (0-3) mg/dl COVID-19 Eval Order SARS-CoV-2 (PCR) (Negative) Blood Type Antibody Screen 07/18/21 07/18/21 07/18/21 Range/Units 00:03 00:03 00:03 WBC (4.8-10.8) K/uL RBC (4.7-6.1) M/uL Hgb (14.0-18.0) g/dL Hct (42-52) % MCV (80-100) fL MCH (25-34) pg MCHC (32-36) g/dL RDW Std Deviation (36.4-46.3) fL RDW Coeff of Hernandez (11.5-14.5) % Plt Count (130-400) K/uL MPV (7.4-10.4) fL Immature Gran % (Auto) % Neut % (Auto) % Lymph % (Auto) % Porter % (Auto) % Eos % (Auto) % Baso % (Auto) % Neut # (Auto) (1.4-6.5) K/uL Lymph # (Auto) (1.2-3.4) K/uL Porter # (Auto) (0.11-0.59) K/uL Eos # (Auto) (0-0.5) K/uL Baso # (Auto) (0-0.2) K/uL Immature Gran # (Auto) (0.00-0.02) K/uL Platelet Estimate (Normal) Macrocytosis Rouleaux PT (9.0-12.0) Seconds INR (0.9-1.1) Sodium (136-145) mmol/L Potassium (3.5-5.1) mmol/L Chloride (98-107) mmol/L Carbon Dioxide (21-32) mmol/L Anion Gap (3-11) BUN (7-18) mg/dl Creatinine (0.6-1.4) mg/dl Est Cr Clr Drug Dosing ml/min Est GFR ( Amer) ml/min Est GFR (Non-Af Amer) ml/min BUN/Creatinine Ratio (10-20) Glucose (70-99) mg/dl Osmolality (280-300) mOsm/kg Lactate 2.6 H* (0.4-2.0) mmol/L Calcium (8.5-10.1) mg/dl Ionized Calcium (1.12-1.32) mmol/L Magnesium (1.8-2.4) mg/dl Total Bilirubin (0.2-1) mg/dl AST (15-37) U/L ALT (12-78) U/L Alkaline Phosphatase (45-117) U/L Ammonia 22.6 (11-32) umol/L Troponin I (0-0.045) ng/ml NT-Pro-B Natriuret Pep (0-900) pg/ml Total Protein (6.4-8.2) gm/dl Albumin (3.4-5.0) gm/dl Globulin (2.5-4.0) gm/dl Albumin/Globulin Ratio (0.9-2) Lipase (73-393) U/L Procalcitonin (0-0.5) ng/ml Urine Color Urine Appearance (Clear) Urine pH (4.5-7.5) Ur Specific Ridge (1.000-1.030) Urine Protein (Negative) Urine Glucose (UA) (Negative) Urine Ketones (Negative) Urine Blood (Negative) Urine Nitrite (Negative) Urine Bilirubin (Negative) Urine Urobilinogen (Negative) Ur Leukocyte Esterase (Negative) Urine WBC (Auto) (0-5) /hpf Urine RBC (Auto) (0-4) /hpf U Hyaline Cast (Auto) (0-5) /lpf U Epithel Cells (Auto) (0-5) /lpf Urine Bacteria (Auto) (Negative) Ethyl Alcohol mg/dL (0-3) mg/dl COVID-19 Eval Order SARS-CoV-2 (PCR) (Negative) Blood Type O Positive Antibody Screen NEGATIVE 07/18/21 07/18/21 07/17/21 Range/Units 00:03 00:03 18:40 WBC (4.8-10.8) K/uL RBC (4.7-6.1) M/uL Hgb (14.0-18.0) g/dL Hct (42-52) % MCV (80-100) fL MCH (25-34) pg MCHC (32-36) g/dL RDW Std Deviation (36.4-46.3) fL RDW Coeff of Hernandez (11.5-14.5) % Plt Count (130-400) K/uL MPV (7.4-10.4) fL Immature Gran % (Auto) % Neut % (Auto) % Lymph % (Auto) % Porter % (Auto) % Eos % (Auto) % Baso % (Auto) % Neut # (Auto) (1.4-6.5) K/uL Lymph # (Auto) (1.2-3.4) K/uL Porter # (Auto) (0.11-0.59) K/uL Eos # (Auto) (0-0.5) K/uL Baso # (Auto) (0-0.2) K/uL Immature Gran # (Auto) (0.00-0.02) K/uL Platelet Estimate (Normal) Macrocytosis Rouleaux PT 18.5 H (9.0-12.0) Seconds INR 1.9 H (0.9-1.1) Sodium (136-145) mmol/L Potassium (3.5-5.1) mmol/L Chloride (98-107) mmol/L Carbon Dioxide (21-32) mmol/L Anion Gap (3-11) BUN (7-18) mg/dl Creatinine (0.6-1.4) mg/dl Est Cr Clr Drug Dosing ml/min Est GFR ( Amer) ml/min Est GFR (Non-Af Amer) ml/min BUN/Creatinine Ratio (10-20) Glucose (70-99) mg/dl Osmolality 309 H (280-300) mOsm/kg Lactate (0.4-2.0) mmol/L Calcium (8.5-10.1) mg/dl Ionized Calcium (1.12-1.32) mmol/L Magnesium (1.8-2.4) mg/dl Total Bilirubin (0.2-1) mg/dl AST (15-37) U/L ALT (12-78) U/L Alkaline Phosphatase (45-117) U/L Ammonia (11-32) umol/L Troponin I (0-0.045) ng/ml NT-Pro-B Natriuret Pep (0-900) pg/ml Total Protein (6.4-8.2) gm/dl Albumin (3.4-5.0) gm/dl Globulin (2.5-4.0) gm/dl Albumin/Globulin Ratio (0.9-2) Lipase (73-393) U/L Procalcitonin (0-0.5) ng/ml Urine Color Urine Appearance (Clear) Urine pH (4.5-7.5) Ur Specific [place] (1.000-1.030) Urine Protein (Negative) Urine Glucose (UA) (Negative) Urine Ketones (Negative) Urine Blood (Negative) Urine Nitrite (Negative) Urine Bilirubin (Negative) Urine Urobilinogen (Negative) Ur Leukocyte Esterase (Negative) Urine WBC (Auto) (0-5) /hpf Urine RBC (Auto) (0-4) /hpf U Hyaline Cast (Auto) (0-5) /lpf U Epithel Cells (Auto) (0-5) /lpf Urine Bacteria (Auto) (Negative) Ethyl Alcohol mg/dL 205.4 H (0-3) mg/dl COVID-19 Eval Order SARS-CoV-2 (PCR) (Negative) Blood Type Antibody Screen 07/17/21 07/17/21 Range/Units 18:40 18:40 WBC 5.24 (4.8-10.8) K/uL RBC 2.58 L (4.7-6.1) M/uL Hgb 10.2 L (14.0-18.0) g/dL Hct 29.7 L (42-52) % MCV 115.1 H (80-100) fL MCH 39.5 H (25-34) pg MCHC 34.3 (32-36) g/dL RDW Std Deviation 68.7 H (36.4-46.3) fL RDW Coeff of Hernandez 16.5 H (11.5-14.5) % Plt Count 86 L (130-400) K/uL MPV 11.0 H (7.4-10.4) fL Immature Gran % (Auto) 0.8 % Neut % (Auto) 59.0 % Lymph % (Auto) 23.1 % Porter % (Auto) 14.1 % Eos % (Auto) 1.3 % Baso % (Auto) 1.7 % Neut # (Auto) 3.09 (1.4-6.5) K/uL Lymph # (Auto) 1.21 (1.2-3.4) K/uL Porter # (Auto) 0.74 H (0.11-0.59) K/uL Eos # (Auto) 0.07 (0-0.5) K/uL Baso # (Auto) 0.09 (0-0.2) K/uL Immature Gran # (Auto) 0.04 H (0.00-0.02) K/uL Platelet Estimate Decreased L (Normal) Macrocytosis Present Rouleaux PT (9.0-12.0) Seconds INR (0.9-1.1) Sodium 128 L (136-145) mmol/L Potassium 3.6 (3.5-5.1) mmol/L Chloride 98 (98-107) mmol/L Carbon Dioxide 23 (21-32) mmol/L Anion Gap 8.0 (3-11) BUN 4 L (7-18) mg/dl Creatinine 0.87 (0.6-1.4) mg/dl Est Cr Clr Drug Dosing 90.9 ml/min Est GFR ( Amer) 111.8 ml/min Est GFR (Non-Af Amer) 96.5 ml/min BUN/Creatinine Ratio 4.7 L (10-20) Glucose 96 (70-99) mg/dl Osmolality (280-300) mOsm/kg Lactate (0.4-2.0) mmol/L Calcium 7.2 L (8.5-10.1) mg/dl Ionized Calcium (1.12-1.32) mmol/L Magnesium 1.7 L (1.8-2.4) mg/dl Total Bilirubin 8.2 H (0.2-1) mg/dl AST 89 H (15-37) U/L ALT 36 (12-78) U/L Alkaline Phosphatase 94 (45-117) U/L Ammonia (11-32) umol/L Troponin I 0.024 (0-0.045) ng/ml NT-Pro-B Natriuret Pep 628 (0-900) pg/ml Total Protein 8.3 H (6.4-8.2) gm/dl Albumin 1.2 L (3.4-5.0) gm/dl Globulin 7.1 H (2.5-4.0) gm/dl Albumin/Globulin Ratio 0.2 L (0.9-2) Lipase 244 (73-393) U/L Procalcitonin (0-0.5) ng/ml Urine Color Urine Appearance (Clear) Urine pH (4.5-7.5) Ur Specific [place] (1.000-1.030) Urine Protein (Negative) Urine Glucose (UA) (Negative) Urine Ketones (Negative) Urine Blood (Negative) Urine Nitrite (Negative) Urine Bilirubin (Negative) Urine Urobilinogen (Negative) Ur Leukocyte Esterase (Negative) Urine WBC (Auto) (0-5) /hpf Urine RBC (Auto) (0-4) /hpf U Hyaline Cast (Auto) (0-5) /lpf U Epithel Cells (Auto) (0-5) /lpf Urine Bacteria (Auto) (Negative) Ethyl Alcohol mg/dL (0-3) mg/dl COVID-19 Eval Order SARS-CoV-2 (PCR) (Negative) Blood Type Antibody Screen (1) Cirrhosis Ascites presence: with ascites Hepatic cirrhosis type: alcoholic cirrhosis Qualified Code(s): K70.31 - Alcoholic cirrhosis of liver with ascites
--- NOTE | 2021-07-18 09:00 | CT Scan Report ---
CT SCAN OF THE ABDOMEN AND PELVIS WITH IV CONTRAST CLINICAL HISTORY: Generalized abdominal pain. Swelling. COMPARISON STUDY: Abdominal CT dated 06/15/2021 TECHNIQUE: Following the IV administration of 92 cc of Optiray 320, CT scan of the abdomen and pelvi s is performed from the lung bases to the proximal femora. Images are reviewed in the axial, sagittal , and coronal planes. IV contrast was administered without complication. A dose lowering technique wa s utilized adhering to the principles of ALARA. CT DOSE: 533.29 mGy.cm FINDINGS: Lung bases: The heart is normal in size noting a small pericardial effusion. Parenchymal scarring see n at both lung bases. There is a small left pleural effusion with associated atelectasis. No airspace consolidation is identified typical for pneumonia. There is a small hiatal hernia. Esophageal varice s are noted. Liver: The contrast-enhanced liver is cirrhotic in morphology and heterogeneous in attenuation. There is hypertrophy of the left lobe and nodularity of the hepatic surface contour. There is no intrahepa tic biliary ductal dilatation. The hepatic veins and portal veins are patent. There are scattered nita cified hepatic granulomas. Gallbladder: Surgically absent noting clips in the gallbladder fossa. Spleen: Normal in size and attenuation. There are perigastric and perisplenic varices with evidence o f a splenorenal shunt. There are also retroperitoneal collaterals. 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 Adrenal glands: Unremarkable. Kidneys: The contrast enhanced kidneys are normal in size and without hydronephrosis. The kidneys enh ance symmetrically. Abdominal vasculature: The abdominal aorta is normal in course and caliber noting moderate atheroscle rotic calcification. Bowel: There is moderate colonic diverticulosis without CT evidence of acute diverticulitis. No bowel obstruction is identified. Question mild wall thickening of the right colon. Duodenal diverticula ar e noted. The appendix is well-visualized and normal. Peritoneum: There is a moderate to large volume of abdominopelvic ascites. No intraperitoneal free ai r is seen. There is an umbilical hernia which contains ascitic fluid. Lymphadenopathy: None. Pelvic viscera: The prostate gland is heterogeneous. The bladder wall appears thickened and trabecula quan suggesting chronic outlet obstruction. There is an ascitic fluid containing right inguinal hernia . Skeletal structures: The skeletal structures appear osteopenic. Mild lumbosacral spondylosis is noted . No lytic or blastic lesions are seen. There are healed left pubic ring fractures, as well as healed bilateral rib fractures. Soft tissues: Body wall edema is noted. IMPRESSION: 1. The liver is cirrhotic in morphology and heterogeneous in attenuation. 2. Esophageal varices, abdominal and retroperitoneal varices, a splenorenal shunt, and a moderate to large volume of ascites indicate portal hypertension. 3. There are fat-containing umbilical and right inguinal hernias. 4. Small left pleural effusion. 5. Mild wall thickening suggested in the right colon and likely represents portal colopathy. 6. Additional findings as above. ACT 112: Negative or not required by law. Electronically signed by: Salazar Segura M.D. 07/18/2021 8:59 AM
[2021-07-18 12:39] LABS: Hematocrit (blood only) 25.8 % (42-52); Hemoglobin 8.9 g/dL (14.0-18.0)
--- NOTE | 2021-07-18 14:10 | Electrocardiogram Report ---
Test Reason : Blood Pressure : / mmHG Vent. Rate : 127 BPM Atrial Rate : 254 BPM P-R Int : 000 ms QRS Dur : 116 ms QT Int : 314 ms P-R-T Axes : 067 095 222 degrees QTc Int : 456 ms Atrial flutter with 2:1 A-V conduction Right bundle branch block Abnormal ECG No previous ECGs available Confirmed by Pierre Torrez ([id number]) on 07/18/2021 2:10:16 PM Referred By: REFERRED SELF Confirmed By:Pierre Torrez
--- NOTE | 2021-07-18 14:19 | Ultrasound Report ---
PARACENTESIS UNDER ULTRASOUND GUIDANCE CLINICAL HISTORY: Cirrhosis and ascites. COMPARISON STUDY: Abdominal CT dated 07/17/2021. PROCEDURE: The risks, benefits, and alternatives to the procedure were discussed with the patient who voiced understanding. Written informed consent was obtained. Following real-time ultrasound localiza tion of a suitable pocket of fluid in the right lower quadrant, the abdomen was prepped and draped in the usual sterile fashion. The skin and soft tissues were anesthetized with 1% lidocaine. The sheath ed paracentesis needle was inserted and approximately 3 liters of straw-colored ascitic fluid was rem brianna by vacuum suction. A specimen was sent for laboratory analysis. The procedure was well tolerated and without immediate complication. The patient left the department in satisfactory condition. IMPRESSION: Successful ultrasound-guided paracentesis with removal of approximately 3 liters of ascit ic fluid. ACT 112: Negative or not required by law. Electronically signed by: Salazar Segura M.D. 07/18/2021 2:17 PM
[2021-07-18] MEDS ORDERED: LAVAGE SOLUTION 4000ML PO SCH (17:30)
--- NOTE | 2021-07-18 23:45 | Communication Note ---
Date of Service: July 18, 2021 Patient was seen and examined. Lying in bed very drowsy and sleepy. CT abdomen pelvis on admission showed the liver is cirrhotic in morphology and hete rogeneous in attenuation.Esophageal varices, abdominal and retroperitoneal varices, a splenorenal shunt, and a moderate to large volume of ascites indicate portal hypertension. Status post paracentesis done today were 3 L of ascites fluid removed. Continue IV antibiotic for now. Will monitor closely for signs of alcohol withdrawal and DT. Continue monitor closely in telemetry. MD Fanny
[2021-07-19] MEDS: LORazepam 2 MG/4 ML VIAL IV PRN ×5 (00:11→23:43)
[2021-07-19] MEDS ORDERED: METOPROLOL TARTRATE 1 MG/ML VIAL IV STA (00:54)
[2021-07-19] MEDS ORDERED: METOPROLOL TARTRATE 1 MG/ML VIAL IV ONE (00:58)
[2021-07-19] MEDS: ALBUMIN 25% 12.5 GM/50 ML VIAL IV SCH ×5 (01:12→23:39)
[2021-07-19] MEDS: THIAMINE HCL 100 MG TAB PO SCH (08:18)
[2021-07-19] MEDS: MULTIVITAMIN TAB PO SCH (08:18)
[2021-07-19] MEDS: PIPERACILLIN/TAZOBACTAM 3.375 GM in DEXTROSE 5% 100 ML IV SCH ×3 (08:18→23:39)
[2021-07-19] MEDS: FOLIC ACID 1 MG TAB PO SCH (08:18)
[2021-07-19 08:57] LABS: Thyroid Stimulating Hormone 7.4 uIu/ml (0.300-4.500)
[2021-07-19 09:12] LABS: T4 Free Thyroxine 1.33 ng/dl (0.8-1.6)
--- NOTE | 2021-07-19 09:33 | Communication Note ---
Date of Service: July 19, 2021 EGD/Colonoscopy cancelled this AM, concern for incomplete prep and a flutter. S/P Paracentesis. About 3L off. Does not appear that fluid studies were obt ained. HGB has remained stable yesterday. AM labs yet to return. Documented are brown, loose stools. Would continue conservative mesasure given concern for DTs and aflutter. Trend H&H Monitor and document for s/s of GI bleedTransfuse HGB < 7IV PPI bolus and drip Diagnostic paracentesis to rule out SBPConsider ZosynConsider Albumin Continue folic acid and thiamine. Can restart OP Lasix 40 mg daily Can restart OPAldactone 100 mg dailyXifaxan 550 mg BIDOnce again ETOH cessation is recommendedLow NA diet, less than 2G daily Less than 2G Tylenol containing products if using No NSAIDs
--- NOTE | 2021-07-19 23:59 | Hospitalist Progress Note ---
Date of Service July 19, 2021 Assessment & Plan (1) Abdominal pain: Plan: Alcoholic cirrhosis of liver with ascites: Has been very noncompliant He does not plan to stop drinking alcohol he said that he does not take his medications or follow with his doctor appoin jerri GI on board He was on Xifaxan and lactulose and probably on Lasix and Aldactone as an outpatient Being very noncompliant he has not been taking any of those and are not in the med list will resume rifaximin 550 mg twice daily, lactulose 30 g 4 times daily Will plan to resume Lasix 40 mg daily and Aldactone 25 mg daily if BP stable S/p paracentesis where 3 L ascites fluid removed yesterday, unfortunately specimen was discarded and no diagnostic test was ordered GI was planing to get EGD/Colonoscopy but due to atrial tejada and incomplete prep, scope was cancelled Continue IV abx for now Alcohol abuse Continue to drink alcohol daily Multiple admissions for alcohol intoxication and withdrawal Continue Gabapentin and Ativan alcohol withdrawal protocol Will monitor closely for alcohol withdrawal and DT Not interested to rehab because he said that he has been there before Will consider to add libruim 10mg Esophageal varices: non compliant w/ Xifaxan S/P paracentesis with 3 L ascites fluid removed Continue IV abd for possible SBP No lab was sent from the ascites fluid Buttock wound Pressure ulcer of sacral region, stage 3 POA Continue daily wound care Wound care nurse on board Will need follow-up with wound care clinic, but pt does not follow up with appt Atrial flutter Hx P afib noncompliant 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 He was referred to ENT but has not been compliant with this." Does not follow up with appointment (Non compliant) History of pulmonary embolism: Not a candidate for anticoagulation secondary to history of medical noncompliance and ongoing alcohol abuse Thrombocytopenia: Anemia Coagulopathy: Due to underlying liver disease Hgb 8.9, plt 56, INR 2 no signs of bleeding and no nurse did not note any further dark stool today Continue monitor CBC DVT prophylaxis: SCDs due to thrombocytopenia/coagulopathy Disposition Will discharge once medically stable Patient daughter requesting updates from providers. Ms. Antonia Gao, contact #[phone]. Admission and Anticipated Discharge Date Admission Date: July 18, 2021 Subjective Pt was seen and examined for follow up of abdominal discomfort and alcohol abuse Lying in bed with no acute distress. Pt is drowsy and weak Nurse said that they has not seen any dark stool today Last night telemonitor showed atrial flutter with HR increased in the 140's I spoke to his Niece and provided with update and answered all her questions Family would like him to get the scope while he is in the hospital because pt does not follow with doctor appointments once discharge from the hospital Niece said that continue to drink alcohol daily. Pt said his last drink was Sunday afternoon Currently pt denies any chest pain, palpitation, dizziness and SOB Review of Systems Review of Systems: All systems reviewed & are unremarkable except as noted in Subjective Physical Exam Physical Exam: General- lethargy Head- atraumatic Eyes- PERRL, EOMI, jaundice ENT- oropharynx clear Neck- supple, no JVD Lungs- clear to auscultation Heart- +tachycardia Abdomen- +ascites Extremities- no calf tenderness, +edema Neuro- drowsy, follow commands, move all 4 extremities, Mild nystagmus Skin- warm & dry Results & Data Results & Data ([facility]) Vital Signs (Past 12 Hours) Vital Signs Temp Pulse Resp BP Pulse Ox 07/19/21 23:34 36.5 C 110 H 28 H 95/70 L 97 07/19/21 19:54 36.3 C L 108 H 20 96/65 L 100 07/19/21 16:06 36.4 C L 108 H 22 102/76 95 07/19/21 14:59 107 H
[2021-07-20] MEDS ORDERED: GABAPENTIN 600MG ALCOHOL WITHDRAWAL LOAD PO SCH (00:30)
[2021-07-20] MEDS ORDERED: GABAPENTIN 600 MG TAB PO ONE (01:00)
[2021-07-20] MEDS: PANTOprazole 40 MG in DEXTROSE 5% 100 ML IV SCH ×5 (01:38→21:08)
[2021-07-20] MEDS: ALBUMIN 25% 12.5 GM/50 ML VIAL IV SCH ×6 (05:46→23:21)
[2021-07-20 07:10] LABS: Hemoglobin 8.5 g/dL (14.0-18.0); Mean Corpuscular Hemoglobin 40.3 pg (25-34); Mean Corpuscular Volume 118.5 fL (80-100); RDW Coefficient of Variation 18.1 % (11.5-14.5); RDW Standard Deviation 76.8 fL (36.4-46.3); Red Blood Count 2.11 M/uL (4.7-6.1); White Blood Count 5.05 K/uL (4.8-10.8)
[2021-07-20 07:21] LABS: INR 2.3 (0.9-1.1); Prothrombin Time 21.7 Seconds (9.0-12.0)
[2021-07-20 07:23] LABS: Mean Platelet Volume 10.9 fL (7.4-10.4); Platelet Count 56 K/uL (130-400)
[2021-07-20 07:52] LABS: Albumin Globulin Ratio 0.4 (0.9-2); Albumin Level 2.4 gm/dl (3.4-5.0); BUN Creatinine Ratio 10.7 (10-20); Bilirubin,Total 15.1 mg/dl (0.2-1); Calcium 8.3 mg/dl (8.5-10.1); Creatinine Clr Calc Pharmacy 34.2 ml/min; Est GFR (African American) 39.6 ml/min; Est GFR (Non-African American) 34.2 ml/min; Globulin 5.6 gm/dl (2.5-4.0); Magnesium 2.3 mg/dl (1.8-2.4); Phosphorus 2.9 mg/dl (2.5-4.9); Potassium 3.6 mmol/L (3.5-5.1)
[2021-07-20] MEDS: rifAXIMin 550 MG TABLET PO SCH ×2 (08:02→22:27)
[2021-07-20] MEDS: THIAMINE HCL 100 MG TAB PO SCH (08:02)
[2021-07-20] MEDS: FOLIC ACID 1 MG TAB PO SCH (08:02)
[2021-07-20] MEDS: MULTIVITAMIN TAB PO SCH (08:02)
[2021-07-20] MEDS: GABAPENTIN 100 MG CAP PO SCH ×2 (08:02→14:21)
[2021-07-20] MEDS: PIPERACILLIN/TAZOBACTAM 3.375 GM in DEXTROSE 5% 100 ML IV SCH ×3 (08:05→23:21)
[2021-07-20] MEDS ORDERED: POTASSIUM CHLORIDE CRTAB 20 MEQ TABCR PO STA (08:39)
--- NOTE | 2021-07-20 08:39 | Hospitalist Progress Note ---
Date of Service July 20, 2021 Assessment & Plan (1) Abdominal pain: Plan: Alcoholic cirrhosis of liver with ascites: Has been very noncompliant He does not plan to stop drinking alcohol he said that he does not take his medications or follow with his doctor appointments GI consulted He was on Xifaxan and lactulose and probably on Lasix and Aldactone as an outpatient Being very noncompliant he has not been taking any of those and are not in the med list - resumed rifaximin 550 mg twice daily, lactulose 30 g 4 times daily (however currently not taking PO, lethargic) Will plan to resume Lasix 40 mg daily and Aldactone 25 mg daily if BP stable and pt ok to take PO S/p paracentesis where 3 L ascites fluid removed on 07/18/21, unfortunately specimen was discarded and no diagnostic test was ordered GI was planing to get EGD/Colonoscopy but due to atrial tejada and incomplete prep, scope was cancelled Continue IV abx , IV albumin for now 07/20 -patient continues to be lethargic, and his blood work is worsen - creatinine elevated at 2.1, INR up at 2.3, T bili up at 15 Contacted GI, MELD score 35, guarded prognosis, Can consider transfer to tertiary centre for hepatology/transplantation evaluation but unllikely a candidate due to medical noncompliance and ETOH abuse history. Nephrology also consulted, for elevated creatinine now at 2.1, possible epidural syndrome Given guarded prognosis, medical noncompliance, palliative medicine also consulted to address goals of care Alcohol abuse Continue to drink alcohol daily Multiple admissions for alcohol intoxication and withdrawal Continue Gabapentin and Ativan alcohol withdrawal protocol Will monitor closely for alcohol withdrawal and DT Not interested to rehab because he said that he has been there before Will consider to add libruim 10mg Esophageal varices: non compliant w/ Xifaxan S/P paracentesis with 3 L ascites fluid removed Continue IV Abx for possible SBP No lab was sent from the ascites fluid Buttock wound Pressure ulcer of sacral region, stage 3 POA Continue daily wound care Wound care nurse on board Will need follow-up with wound care clinic, but pt does not follow up with appt Atrial flutter Hx P afib 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 He was referred to ENT but has not been compliant with this." Does not follow up with appointment (Non compliant) History of pulmonary embolism: Not a candidate for anticoagulation secondary to history of medical noncompliance and ongoing alcohol abuse Thrombocytopenia: Anemia Coagulopathy: Due to underlying liver disease Hgb 8.9, plt 56, INR 2 no signs of bleeding and per nurse, did not note any further dark stool Continue monitor CBC DVT prophylaxis: SCDs due to thrombocytopenia/coagulopathy Disposition Will discharge once medically stable However prognosis is guarded Patient's daughter, Ms. Antonia Gao, contact #[phone]. Admission and Anticipated Discharge Date Admission Date: July 18, 2021 Subjective Pt was seen and examined for follow up of abdominal discomfort and alcohol abuse Lying in bed with no acute distress. Pt is drowsy and weak , barely responding Per nursing staff, when patient awake, pulled his IVs, then when received Ativan, becomes very drowsy He was seen by GI, and was planned for EGD/colonoscopy however had a flutter and heart rate in the 140s, and therefore procedures were canceled There was initial concern for GI bleed, however seems like patient has been having brown stools and hemoglobin stable Had paracentesis done yesterday, however fluid was not sent to the lab This a.m. however his blood work much worsened, creatinine elevated at 2.1, INR up at 2.3, T bili up at 15 Contacted GI for further evaluation/recommendations Contacted nephrology, and also ordered extra IV albumin Given his guarded prognosis, and known noncompliance with medical treatment, placed also palliative medicine consultation to address goals of care Per previous provider: Previous hospitalist spoke to pt's Niece and provided with update and answered all her questions Family would like him to get the scope while he is in the hospital because pt does not follow with doctor appointments once discharge from the hospital Niece said that continue to drink alcohol daily. Pt said his last drink was Sunday afternoon Review of Systems Review of Systems: All systems reviewed & are unremarkable except as noted in Subjective Physical Exam Physical Exam: General- lethargic jaundiced male, barely responding to questions Head- atraumatic Eyes- PERRL, EOMI, jaundice Neck- supple, no JVD Lungs- clear to auscultation Heart- +tachycardia Abdomen- soft, seems nontender Extremities- no calf tenderness, +edema Neuro - drowsy, barely answers any questions, no facial asymmetry, moves extremities Skin- warm & dry Results & Data Results & Data ([facility]) Vital Signs (Past 12 Hours) Vital Signs Temp Pulse Pulse Resp BP Pulse Ox 07/20/21 07:33 36.4 C L 111 H 18 93/66 L 99 07/20/21 03:00 36.4 C L 125 H 30 H 89/66 L 94 07/19/21 23:34 36.5 C 110 H 28 H 95/70 L 97 07/19/21 23:00 117 H Laboratory Results 07/20/21 07/20/21 07/20/21 Range/Units 06:20 06:20 06:20 WBC 5.05 (4.8-10.8) K/uL RBC 2.11 L (4.7-6.1) M/uL Hgb 8.5 L (14.0-18.0) g/dL Hct 25.0 L (42-52) % MCV 118.5 H (80-100) fL MCH 40.3 H (25-34) pg MCHC 34.0 (32-36) g/dL RDW Std Deviation 76.8 H (36.4-46.3) fL RDW Coeff of Hernandez 18.1 H (11.5-14.5) % Plt Count 56 L (130-400) K/uL MPV 10.9 H (7.4-10.4) fL PT 21.7 H (9.0-12.0) Seconds INR 2.3 H (0.9-1.1) Sodium 130 L (136-145) mmol/L Potassium 3.6 (3.5-5.1) mmol/L Chloride 98 (98-107) mmol/L Carbon Dioxide 22 (21-32) mmol/L Anion Gap 10.0 (3-11) BUN 22 H D (7-18) mg/dl Creatinine 2.10 H D (0.6-1.4) mg/dl Est Cr Clr Drug Dosing 34.2 ml/min Est GFR ( Amer) 39.6 ml/min Est GFR (Non-Af Amer) 34.2 ml/min BUN/Creatinine Ratio 10.7 (10-20) Glucose 102 H (70-99) mg/dl Calcium 8.3 L (8.5-10.1) mg/dl Phosphorus 2.9 (2.5-4.9) mg/dl Magnesium 2.3 (1.8-2.4) mg/dl Total Bilirubin 15.1 H (0.2-1) mg/dl AST 79 H (15-37) U/L ALT 35 (12-78) U/L Alkaline Phosphatase 67 (45-117) U/L Total Protein 8.0 (6.4-8.2) gm/dl Albumin 2.4 L (3.4-5.0) gm/dl Globulin 5.6 H (2.5-4.0) gm/dl Albumin/Globulin Ratio 0.4 L (0.9-2) TSH (0.300-4.500) uIu/ml Free T4 (0.8-1.6) ng/dl 07/19/21 Range/Units 07:51 WBC (4.8-10.8) K/uL RBC (4.7-6.1) M/uL Hgb (14.0-18.0) g/dL Hct (42-52) % MCV (80-100) fL MCH (25-34) pg MCHC (32-36) g/dL RDW Std Deviation (36.4-46.3) fL RDW Coeff of Hernandez (11.5-14.5) % Plt Count (130-400) K/uL MPV (7.4-10.4) fL PT (9.0-12.0) Seconds INR (0.9-1.1) Sodium (136-145) mmol/L Potassium (3.5-5.1) mmol/L Chloride (98-107) mmol/L Carbon Dioxide (21-32) mmol/L Anion Gap (3-11) BUN (7-18) mg/dl Creatinine (0.6-1.4) mg/dl Est Cr Clr Drug Dosing ml/min Est GFR ( Amer) ml/min Est GFR (Non-Af Amer) ml/min BUN/Creatinine Ratio (10-20) Glucose (70-99) mg/dl Calcium (8.5-10.1) mg/dl Phosphorus (2.5-4.9) mg/dl Magnesium (1.8-2.4) mg/dl Total Bilirubin (0.2-1) mg/dl AST (15-37) U/L ALT (12-78) U/L Alkaline Phosphatase (45-117) U/L Total Protein (6.4-8.2) gm/dl Albumin (3.4-5.0) gm/dl Globulin (2.5-4.0) gm/dl Albumin/Globulin Ratio (0.9-2) TSH 7.400 H (0.300-4.500) uIu/ml Free T4 1.33 (0.8-1.6) ng/dl Medications Administered Current Inpatient Medications Acetaminophen (Acetaminophen 325 Mg Tab) 325 mg PO Q6H PRN PRN Reason: Mild Pain Stop: 08/17/21 03:39 Folic Acid (Folic Acid 1 Mg Tab) [facility] Stop: 08/17/21 08:59 Last Admin: 07/20/21 08:02 Dose: 1 mg Documented by: Gabapentin (Gabapentin 100 Mg Cap) 100 mg PO Q6H [facility] Stop: 07/20/21 13:01 Last Admin: 07/20/21 08:02 Dose: 100 mg Documented by: Gabapentin (Gabapentin 600 Mg Tab) 600 mg PO Q24H [facility] Stop: 07/21/21 01:01 Gabapentin (Gabapentin 400 Mg Cap) 400 mg PO Q24H [facility] Stop: 07/22/21 01:01 Gabapentin (Gabapentin 100 Mg Cap) 200 mg PO Q24H [facility] Stop: 07/23/21 01:01 Piperacillin Sod/Tazobactam (Sod 3.375 gm/ Dextrose) 115 mls @ 28.75 mls/hr IV Q8H [facility]; Protocol Stop: 07/28/21 07:59 Last Admin: 07/20/21 08:05 Dose: 28.8 mls/hr Documented by: Promethazine HCl 12.5 mg/ (Sodium Chloride) 50.5 mls @ 202 mls/hr IV Q6H PRN PRN Reason: Nausea And Vomiting Stop: 08/17/21 03:39 Lorazepam (Ativan) 1 mg in 2 mls @ 2 mls/min IV UD PRN; Protocol PRN Reason: EtOH Withdrawl AWSS Score 6,7 Stop: 08/17/21 03:39 Last Admin: 07/20/21 03:33 Dose: 2 mls/min Documented by: Lorazepam (Ativan) 2 mg in 4 mls @ 4 mls/min IV UD PRN; Protocol PRN Reason: EtOH Withdrawl AWSS Score 8,9 Stop: 08/17/21 03:39 Last Admin: 07/19/21 23:43 Dose: 4 mls/min Documented by: Lorazepam (Ativan) 3 mg in 6 mls @ 4 mls/min IV ONCE PRN; Protocol PRN Reason: EtOH Withdrawl AWSS Score >=10 Stop: 08/17/21 03:39 Albumin Human (Albumin 25%) 12.5 gm in 50 mls @ 50 mls/hr IV Q6H [facility] Stop: 07/21/21 05:59 Last Infusion: 07/20/21 06:46 Dose: Infused Documented by: Pantoprazole Sodium 40 mg/ (Dextrose) 100 mls @ 20 mls/hr IV Q5H [facility] Stop: 08/19/21 00:29 Last Admin: 07/20/21 08:04 Dose: 8 mg/hr, 20 mls/hr Documented by: Albumin Human (Albumin 25%) 12.5 gm in 50 mls @ 50 mls/hr IV Q1H [facility] Stop: 07/20/21 10:29 Miscellaneous Information (Piperacill/Tazobac Consult Active) 1 ea N/A UD PRN PRN Reason: Consult Stop: 08/17/21 01:52 Multivitamins (Multivitamin Tab) 1 tab PO QAM [facility] Stop: 08/17/21 08:59 Last Admin: 07/20/21 08:02 Dose: 1 tab Documented by: Oxycodone HCl (Oxycodone Hcl Ir 5 Mg Tab (Immediate Release)) 5 mg PO Q4H PRN PRN Reason: Pain Stop: 08/01/21 03:39 Rifaximin (Rifaximin 550 Mg Tablet) 550 mg PO BID [facility] Stop: 08/19/21 08:59 Last Admin: 07/20/21 08:02 Dose: 550 mg Documented by: Thiamine HCl (Thiamine Hcl 100 Mg Tab) 100 mg PO [facility] Stop: 08/18/21 08:59 Last Admin: 07/20/21 08:02 Dose: 100 mg Documented by:
--- NOTE | 2021-07-20 09:02 | Nephrology Consultation ---
Date of Consultation July 20, 2021 Assessment & Plan (1) BRANDON (acute kidney injury): stage 3 acute renal failure w/ unknown oliguria status: likely contrast induced nephropathy in the setting of intensely prerenal state even before (based on admission UA) and especially after paracentesis and IV contrast. he is w/in the classic timeframe for SARAH. Also w/ E faecalis UTI, which complica maliha matters. -continue albumin as currently rx'd -strict I/O -probably not a dialysis candidate if need were to arise -will repeat uacm and bmp this afternoon to monitor chemistries; creat likely to worsen before it plateaus (2) Electrolyte and fluid disorder: hypervolemic hyponatremia and marked fluid overload, both attributable to decompensated liver disease. -monitor for now with daily bmp -diuretics prn respiratory decompensation only; else avoid at this time -when taking po will need <2 gm daily Na diet and 1.5L FR History of Present Illness Reason for Consultation: BRANDON in liver patient Requesting Physician: Dr Johnson Attending Physician: Paco Johnson MD History of Present Illness 55 y/o M w/ alcoholic cirrhosis whom I'm asked to see for BRANDON was admitted 07/18 w/ abdominal pain and worsening abd distension and lower leg swelling. PMH includes active EtOH abuse, PAF/PE not on AC d/t GI bleeding hx, COPD, hypothryoid, active tobacco abuse. His baseline creatinine is 1. He was running 0.7-0.8 since admission but bumped abruptly today to 2.1. he had a CT w/ IV contrast on 07/18. He had a 3L paracentesis done 07/18. His neurontin has been stopped as of this am (has had 700 mg today however); he is receiving zosyn, ativan, and albumin 12.5 gm q6h x 2 doses. Pt evaluated on rounds this am at 0915. Allergies Allergy/AdvReac Type Severity Reaction Status Date / Time fentanyl Allergy Intermediate RASH ALL Verified 07/18/21 08:49 OVER BODY Home Medications Medication Instructions Recorded Confirmed Type No Known Home Medications 06/15/21 06/15/21 History Unobtainable 07/18/21 07/18/21 History Patient History Medical History (Updated 07/20/21 @ 15:16 by Claudia Alvarado MD, PhD) Alcohol abuse Alcoholic cirrhosis of liver with ascites Chest pain Chronic anxiety Chronic obstructive pulmonary disease Chronic pancreatitis COVID-19 Esophageal varices Hypertension Hypothyroidism On home oxygen therapy Palliative care encounter Paroxysmal atrial fibrillation Portal hypertension Portal vein thrombosis Pulmonary embolism Pulmonary HTN Seizure Syncope Thrombocytopenia Tobacco abuse Surgical History H/O colonoscopy History of cholecystectomy "2009" History of esophagogastroduodenoscopy (EGD) "12/15/2014- Small varices. 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 Making Required: No Beliefs That Will Affect Care: None marital status: Unknown Current Living Situation: Parent and Family Current Living Situation Comment: parents Other Information That Helps Us Care for You: No Feels Safe at Home: Yes Safety Concerns: Feels Safe At This Time Assistive Devices: None Review of Systems Review of Systems: Unobtainable due to reduced consciousness Physical Exam Constitutional: well developed, + altered mental status and + malnourished; no acute distress groaning; does not open eyes Eyes: EOM intact bilaterally ENMT: Ears: no external ear abnormality Nose: no external nose abnormality Mouth: + dry oral mucous membranes Neck: no nuchal rigidity Respiratory: normal respiratory effort Auscultation: + diminished lung sounds snoring; on 02nc Cardiovascular: Rate/Rhythm: regular rhythm and + tachycardic Extremities: + edema (2+ pedal edema, 1+ ankle) Gastrointestinal (Abdomen): Inspection/Auscultation: normal bowel sounds Percussion/Palpation: abdomen soft; abdomen nontender + fluid wave Musculoskeletal: Extremities: + abnormal strength (generalized weakness) Skin: no rashes, warm and dry Neurologic: p[place]man Results & Data ([facility]) Vital Signs (Past 12 Hours) Vital Signs Temp Pulse Pulse Resp BP Pulse Ox 07/20/21 07:33 36.4 C L 111 H 18 93/66 L 99 07/20/21 03:00 36.4 C L 125 H 30 H 89/66 L 94 07/19/21 23:34 36.5 C 110 H 28 H 95/70 L 97 07/19/21 23:00 117 H Laboratory Results 07/20/21 06:20 07/20/21 06:20 UA 07/18 : 1042, orange, clear, positive blood, nitrites, LE, bili/urobili, trace protein, 1+ bacteria Diagnostic Findings CT abd/pelvis w/ IV con 07/18 Lung bases: The heart is normal in size noting a small pericardial effusion. Parenchymal scarring seen at both lung bases. There is a small left pleural effusion with associated atelectasis. No airspace consolidation is identified typical for pneumonia. There is a small hiatal hernia. Esophageal varices are noted. Liver: The contrast-enhanced liver is cirrhotic in morphology and heterogeneous in attenuation. There is hypertrophy of the left lobe and nodularity of the hepatic surface contour. There is no intrahepatic biliary ductal dilatation. The hepatic veins and portal veins are patent. There are scattered calcified hepatic granulomas. Gallbladder: Surgically absent noting clips in the gallbladder fossa. Spleen: Normal in size and attenuation. There are perigastric and perisplenic varices with evidence of a splenorenal shunt. There are also retroperitoneal collaterals. 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 Adrenal glands: Unremarkable. Kidneys: The contrast enhanced kidneys are normal in size and without hydronephrosis. The kidneys enhance symmetrically. Abdominal vasculature: The abdominal aorta is normal in course and caliber noting moderate atherosclerotic calcification. Bowel: There is moderate colonic diverticulosis without CT evidence of acute diverticulitis. No bowel obstruction is identified. Question mild wall thickening of the right colon. Duodenal diverticula are noted. The appendix is well-visualized and normal. Peritoneum: There is a moderate to large volume of abdominopelvic ascites. No intraperitoneal free air is seen. There is an umbilical hernia which contains ascitic fluid. Lymphadenopathy: None. Pelvic viscera: The prostate gland is heterogeneous. The bladder wall appears thickened and trabeculated suggesting chronic outlet obstruction. There is an ascitic fluid containing right inguinal hernia. Skeletal structures: The skeletal structures appear osteopenic. Mild lumbosacral spondylosis is noted. No lytic or blastic lesions are seen. There are healed left pubic ring fractures, as well as healed bilateral rib fractures. Soft tissues: Body wall edema is noted. IMPRESSION: 1. The liver is cirrhotic in morphology and heterogeneous in attenuation. 2. Esophageal varices, abdominal and retroperitoneal varices, a splenorenal shunt, and a moderate to large volume of ascites indicate portal hypertension. 3. There are fat-containing umbilical and right inguinal hernias. 4. Small left pleural effusion. 5. Mild wall thickening suggested in the right colon and likely represents portal colopathy. cxr admission Cardiomegaly with no acute cardiopulmonary abnormality.
--- NOTE | 2021-07-20 10:52 | Gastroenterology Progress Note ---
Date of Service July 20, 2021 Assessment & Plan (1) Cirrhosis: Plan: 55 year old male with history of ETOH cirrhosis, ongoing ETOH use, diuretic refractory ascites, medical noncompliance, MELD 35 admitted w/ question of GI bleeding. Was to have EGD/Colonoscopy Sunday but cancelled due to aflutter and incomplete prep. He has had brown stools documented since. 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 He had told the ER that he had not been using ETOH recently, but last date of ETOH is unknown. Can consider transfer to tertiary centre for hepatology/transplantation evaluation but unllikely a candidate due to medical noncompliance and ETOH abuse history. I attempted to call daughter Antonia, no answer. Daily MELD labs Consider nephrology consult Rule out HRS Hold diuretics Continue Albumin Trend H&H Monitor and document for s/s of GI bleed Transfuse HGB < 7 IV PPI twice daily Watch for ETOH withdrawal Would repeat a diagnostic paracentesis to rule out SBP - Sent cell count and culture - Consider Zosyn - Consider Albumin Continue folic acid and thiamine Xifaxan 550 mg BID Once again ETOH cessation is recommended Low NA diet, less than 2G daily Less than 2G Tylenol containing products if using No NSAIDs Admission and Anticipated Discharge Date Admission Date: July 18, 2021 Supervising Physician Co-Signing Physician Notes Late entry: Ptient was seen and examined. Chart reviewed. Patient seen on 07/20 with NIXON Patrick whose note reflects our findings and plan. ETOH decompensated cirrhosis with continued ETOH use. adm with abd pain. Ascites. Rectal bleeding. Drop in H/H noted initially. H/H stable now and stool brown.Worsening liver and renal parameters and increasing MELD. not likely a candidate for txp as continues to drink. Prognosis is poor. Follow labs closely and mental status. If decompensates further consider transfer to tertiary care center. Subjective Pt was seen and evaluated, chart reviewed. Less responsive today. Wakes up to name but falls back asleep. Is unable to answer questions beyond yes/no this AM. HGB stable overnight. Documented is brown stools. Paracentesis done but unfortunately no studies were sent. He is on albumin and ABX. Tbili rising. INR rising. COPPERSMITH HELPER bump overnight. Diagnosis: alcoholic cirrhosis,ongoing ETOH abuse Decompensations: Varices: none Ascites:new s/p diagnostic paracentesis No SBP. SAAG 0.8, portal htn not necessary cause of ascites . Fluid NEGATIVE FOR MALIGNANCY, 2.4L 06/15 HE: none Screenings: MELD-Na score: 35 Calculated from: Serum Creatinine: 2 Serum Sodium: 130 Total Bilirubin: 15 INR(ratio): 2.3 Age: 54 years HCC: due in November Varices: 2021 Immunizations: Immune to HepA/HepB EGD 2019: Z-line regular, 38 cm from the incisors.Portal hypertensive gastropathy. Normal examined duodenum Colonoscopy 2019: Non-thrombosed external hemorrhoids found on digital rectal exam.The examined portion of the ileum was normal. Moderate diverticulosis in the sigmoid colon and in the descending colon. Internal hemorrhoids. Review of Systems Review of Systems: All systems reviewed & are unremarkable except as noted in HPI & below Physical Exam Constitutional: WD/WN, vitals as above Respiratory: normal respiratory effort, lungs clear to auscultation Cardiovascular: Rate/Rhythm: regular rate and regular rhythm Gastrointestinal (Abdomen): normal bowel sounds, soft, nontender, no hepatosplenomegaly Skin: no rashes, warm and dry Results & Data ([facility]) Vital Signs (Past 12 Hours) Vital Signs Temp Pulse Pulse Resp BP Pulse Ox 07/20/21 07:33 36.4 C L 111 H 18 93/66 L 99 07/20/21 03:00 36.4 C L 125 H 30 H 89/66 L 94 07/19/21 23:34 36.5 C 110 H 28 H 95/70 L 97 07/19/21 23:00 117 H Laboratory Results 07/20/21 07/20/21 07/20/21 Range/Units 06:20 06:20 06:20 WBC 5.05 (4.8-10.8) K/uL RBC 2.11 L (4.7-6.1) M/uL Hgb 8.5 L (14.0-18.0) g/dL Hct 25.0 L (42-52) % MCV 118.5 H (80-100) fL MCH 40.3 H (25-34) pg MCHC 34.0 (32-36) g/dL RDW Std Deviation 76.8 H (36.4-46.3) fL RDW Coeff of Hernandez 18.1 H (11.5-14.5) % Plt Count 56 L (130-400) K/uL MPV 10.9 H (7.4-10.4) fL PT 21.7 H (9.0-12.0) Seconds INR 2.3 H (0.9-1.1) Sodium 130 L (136-145) mmol/L Potassium 3.6 (3.5-5.1) mmol/L Chloride 98 (98-107) mmol/L Carbon Dioxide 22 (21-32) mmol/L Anion Gap 10.0 (3-11) BUN 22 H D (7-18) mg/dl Creatinine 2.10 H D (0.6-1.4) mg/dl Est Cr Clr Drug Dosing 34.2 ml/min Est GFR ( Amer) 39.6 ml/min Est GFR (Non-Af Amer) 34.2 ml/min BUN/Creatinine Ratio 10.7 (10-20) Glucose 102 H (70-99) mg/dl Calcium 8.3 L (8.5-10.1) mg/dl Phosphorus 2.9 (2.5-4.9) mg/dl Magnesium 2.3 (1.8-2.4) mg/dl Total Bilirubin 15.1 H (0.2-1) mg/dl AST 79 H (15-37) U/L ALT 35 (12-78) U/L Alkaline Phosphatase 67 (45-117) U/L Total Protein 8.0 (6.4-8.2) gm/dl Albumin 2.4 L (3.4-5.0) gm/dl Globulin 5.6 H (2.5-4.0) gm/dl Albumin/Globulin Ratio 0.4 L (0.9-2) (1) Cirrhosis Ascites presence: with ascites Hepatic cirrhosis type: alcoholic cirrhosis Qualified Code(s): K70.31 - Alcoholic cirrhosis of liver with ascites
--- NOTE | 2021-07-20 11:14 | Palliative Care Consultation ---
Date of Consultation July 20, 2021 Assessment & Plan (1) Palliative care encounter: This is an unfortunate 55 year old who has unfortunate advanced liver cirrhosis with ascites who presented to the [facility] with increasing abdominal distension and lower extremity swelling. A paracentesis was performed removing 3L of non malignant fluid since he has been admitted. His MELD score is 35. Additional PMH includes: anxiety, hypothryoidism, thrombocytopenia, tobacco use, alcohol use, and syncope. He had a recent hospitalization in April 2021 for non- cardiac related chest pain and syncope; however, he did not follow up with a PCP post discharge. An EGD and colonoscopy was to be performed; however, was cancelled due to him going into atrial fibrillation and he had an incomplete prep. He has a daughter, Antonia Gao. Palliative Medicine has been consulted to assist with goals of care. I met with Mr. Martin in room 241-2. He appeared quite disheveled and was picking at his arms and IV sites, but was able to answer simple yes and no questions, and was able to tell me his daughter's name Antonia. Otherwise, he is unable to participate in any meaningful conversation. I did reach out to his daughter Antonia at [phone] and left a voicemail. He apparently lives with his parents and case management was able to give me a phone number to reach them at [phone]; however, the phone kept ringing and ringing with no option for voicemail. For now, the patient will remain a full code. Palliative Medicine will continue to attempt to contact family to establish goals of care. (2) Cirrhosis of liver with ascites: (3) Chronic anxiety: History of Present Illness Reason for Consultation: Goals of care Requesting Physician: Dr. Johnson Attending Physician: Paco Johnson MD History of Present Illness This is an unfortunate 55 year old who has unfortunate advanced liver cirrhosis with ascites who presented to the [facility] with increasing abdominal distension and lower extremity swelling. A paracentesis was performed removing 3L of non malignant fluid since he has been admitted. His MELD score is 35. Additional PMH includes: anxiety, hypothryoidism, thrombocytopenia, tobacco use, alcohol use, and syncope. He had a recent hospitalization in April 2021 for non-cardiac related chest pain and syncope; however, he did not follow up with a PCP post discharge. An EGD and colonoscopy was to be performed; however, was cancelled due to him going into atrial fibrillation and he had an incomplete prep. He has a daughter, Antonia Gao. Palliative Medicine has been consulted to assist with goals of care. Please see A/P for further details. Thanks for involving Palliative Medicine with this individual. Allergies Allergy/AdvReac Type Severity Reaction Status Date / Time fentanyl Allergy Intermediate RASH ALL Verified 07/18/21 08:49 OVER BODY Home Medications Medication Instructions Recorded Confirmed Type No Known Home Medications 06/15/21 06/15/21 History Unobtainable 07/18/21 07/18/21 History Patient History Medical History (Updated 07/20/21 @ 11:21 by NIXON Lucas) Alcohol abuse Alcohol abuse Alcohol dependence Alcoholic cirrhosis of liver with ascites Alcoholic cirrhosis of liver with ascites Chest pain Chronic anxiety Chronic obstructive pulmonary disease Chronic pancreatitis COVID-19 Esophageal varices Hypertension Hypothyroidism On home oxygen therapy Palliative care encounter Paroxysmal atrial fibrillation Portal hypertension Portal vein thrombosis Pulmonary embolism Pulmonary HTN Seizure Syncope Thrombocytopenia Tobacco abuse Surgical History H/O colonoscopy History of cholecystectomy "2009" History of esophagogastroduodenoscopy (EGD) "12/15/2014- Small varices. Erosive duodenitis." 01/09/17 - esophageal varicies, gastritis No pertinent past surgical history Family History Mother Diabetes Father Coronary heart disease Social History Smoking Status: Current every day smoker Tobacco Type: Cigarettes Cigarettes Per Day: 10; Second Hand Exposure: No; Hx Alcohol Use: Yes Alcohol type: beer Alcohol Intake Frequency Comment: 4 32 oz [place] [employer] daily Hx Substance Use: No Preferred Language: Burkinan Communication Ability: Impaired Visual Impairment: No Limitations Senior Care Manager Required: No Beliefs That Will Affect Care: None marital status: Unknown Current Living Situation: Parent and Family Current Living Situation Comment: parents Other Information That Helps Us Care for You: No Feels Safe at Home: Yes Safety Concerns: Feels Safe At This Time Assistive Devices: None Review of Systems Review of Systems: [place] System Assessment Scale: Pain: 1/3 Anxiety: 1/3 Tiredness: 1/3 Drowsiness: 2/3 Shortness of Breath: 1/3 palliative performance scale: 30% Physical Exam Constitutional: + ill appearing, + cachectic, + frail appearing and comfortable ENMT: Mouth: + dry oral mucous membranes Respiratory: + uses accessory muscles Auscultation: + diminished lung sounds Cardiovascular: Rate/Rhythm: regular rate and regular rhythm Heart Sounds: normal S1 and normal S2 Extremities: normal capillary refill and + edema (pedal) Gastrointestinal (Abdomen): Inspection/Auscultation: abdomen normal to inspection Skin: + turgor decreased Psychiatric: Orientation: alert, oriented to person and cooperative Insight: + poor insight Judgement: + poor judgement Results & Data ([facility]) Vital Signs (Past 12 Hours) Vital Signs Temp Pulse Resp BP Pulse Ox 07/20/21 07:33 36.4 C L 111 H 18 93/66 L 99 07/20/21 03:00 36.4 C L 125 H 30 H 89/66 L 94 07/19/21 23:34 36.5 C 110 H 28 H 95/70 L 97 PG Care Time/CCT Total # of Minutes Spent Total Time Spent with Patient: Total time spent is greater than 50% in coordination of care (as documented) at patient's floor/unit and/or counseling patient: 70 minutes with >50% of that time spent assessing the patient, discussing goals of care with the patients daughter Antonia, assessing symptom management and collaborating with IDT Coding Level of Care Code 91291 Initial Inpt Care Lvl 3 Diagnoses Palliative care encounter Z51.5 Cirrhosis of liver with ascites K74.60; R18.8 Chronic anxiety F41.9 Time Spent (min) 70
--- NOTE | 2021-07-20 15:36 | Cardiology Consultation ---
Date of Consultation July 20, 2021 Assessment & Plan (1) Atrial flutter with rapid ventricular response: (2) Cirrhosis of liver with ascites: (3) BRANDON (acute kidney injury): Patient is a 55-year-old male with complex constellation of issues as noted above presents now with worsening ascites renal insufficiency and declining mental status. Symptoms eased initially with paracentesis but now with oliguria. Patient in atrial fibrillation flutter since admission and likely several months in duration. Not anticoagulated due to multiple bleeding risks Blood pressures are marginal with elevated heart rate. History is notable for paroxysmal atrial arrhythmias in the past and not likely to be maintained in sinus even with optimal for We will trial very low-dose beta-johnny to attempt better heart rate control but hold for declining blood pressures. Overall prognosis limited History of Present Illness Reason for Consultation: Atrial fibrillation/atrial flutter Requesting Physician: Dr. Johnson Attending Physician: Paco Johnson MD History of Present Illness Patient is a 55-year-old male with ongoing issues include 1. Hepatic cirrhosis, alcoholic with abdominal ascites and esophageal varices, portal hypertension 2. Paroxysmal atrial fibrillation 3. Chronic obstructive lung disease 4. Severe pulmonary hypertension Patient admitted with increasing abdominal ascites nausea and confusion. Patient underwent paracentesis this admission but course notable for hypotension with acute renal insufficiency and worsening obtundation. Rhythm since admission has been atrial fibrillation flutter with elevated ventricular response rate appears to date back to 3 months in duration. Patient not anticoagulated due to multiple high risk bleeding issues Patient unable to give any substantial information Allergies Allergy/AdvReac Type Severity Reaction Status Date / Time fentanyl Allergy Intermediate RASH ALL Verified 07/18/21 08:49 OVER BODY Home Medications Medication Instructions Recorded Confirmed Type No Known Home Medications 06/15/21 06/15/21 History Unobtainable 07/18/21 07/18/21 History Patient History Medical History Alcohol abuse Alcoholic cirrhosis of liver with ascites Chest pain Chronic anxiety Chronic obstructive pulmonary disease Chronic pancreatitis COVID-19 Esophageal varices Hypertension Hypothyroidism On home oxygen therapy Palliative care encounter Paroxysmal atrial fibrillation Portal hypertension Portal vein thrombosis Pulmonary embolism Pulmonary HTN Seizure Syncope Thrombocytopenia Tobacco abuse Surgical History H/O colonoscopy History of cholecystectomy "2009" History of esophagogastroduodenoscopy (EGD) "12/15/2014- Small varices. Erosive duodenitis." 01/09/17 - esophageal varicies, gastritis No pertinent past surgical history Family History Mother Diabetes Father Coronary heart disease Social History Smoking Status: Current every day smoker Tobacco Type: Cigarettes Cigarettes Per Day: 10; Second Hand Exposure: No; Hx Alcohol Use: Yes Alcohol type: beer Alcohol Intake Frequency Comment: 4 32 oz [employer] daily Hx Substance Use: No Preferred Language: Malian Communication Ability: Impaired Visual Impairment: No Limitations Body Stylist Required: No Beliefs That Will Affect Care: None marital status: Unknown Current Living Situation: Parent and Family Current Living Situation Comment: parents Other Information That Helps Us Care for You: No Feels Safe at Home: Yes Safety Concerns: Feels Safe At This Time Assistive Devices: None Review of Systems Review of Systems: Unobtainable due to reduced consciousness Physical Exam Constitutional: + ill appearing and + lethargic Eyes: PERRL, conjunctivae normal, anicteric sclerae Icteric ENMT: external ear and nose normal, oropharynx normal Neck: trachea midline, no thyromegaly Respiratory: Auscultation: + diminished lung sounds Cardiovascular: Rate/Rhythm: + tachycardic and + irregularly irregular Gastrointestinal (Abdomen): Inspection/Auscultation: normal bowel sounds Percussion/Palpation: + hepatomegaly and + ascites Results & Data ([facility]) Vital Signs (Past 12 Hours) Vital Signs Temp Pulse Resp BP Pulse Ox 07/20/21 11:56 36.6 C 112 H 24 103/71 97 07/20/21 07:33 36.4 C L 111 H 18 93/66 L 99 Laboratory Results Laboratory Results - last 24 hr 07/20/21 07/20/21 07/20/21 06:20 06:20 06:20 WBC 5.05 RBC 2.11 L Hgb 8.5 L Hct 25.0 L MCV 118.5 H MCH 40.3 H MCHC 34.0 RDW Std Deviation 76.8 H RDW Coeff of Hernandez 18.1 H Plt Count 56 L MPV 10.9 H PT 21.7 H INR 2.3 H Sodium 130 L Potassium 3.6 Chloride 98 Carbon Dioxide 22 Anion Gap 10.0 BUN 22 H D Creatinine 2.10 H D Est Cr Clr Drug Dosing 34.2 Est GFR ( Amer) 39.6 Est GFR (Non-Af Amer) 34.2 BUN/Creatinine Ratio 10.7 Glucose 102 H Calcium 8.3 L Phosphorus 2.9 Magnesium 2.3 Total Bilirubin 15.1 H AST 79 H ALT 35 Alkaline Phosphatase 67 Total Protein 8.0 Albumin 2.4 L Globulin 5.6 H Albumin/Globulin Ratio 0.4 L 07/20/21 15:44 WBC RBC Hgb Hct MCV MCH MCHC RDW Std Deviation RDW Coeff of Hernandez Plt Count MPV PT INR Sodium Pending Potassium Pending Chloride Pending Carbon Dioxide Pending Anion Gap Pending BUN Pending Creatinine Pending Est Cr Clr Drug Dosing Pending Est GFR ( Amer) Pending Est GFR (Non-Af Amer) Pending BUN/Creatinine Ratio Pending Glucose Pending Calcium Pending Phosphorus Magnesium Total Bilirubin AST ALT Alkaline Phosphatase Total Protein Albumin Globulin Albumin/Globulin Ratio
[2021-07-20 20:45] LABS: BUN Creatinine Ratio 12.1 (10-20); Calcium 8.2 mg/dl (8.5-10.1); Creatinine Clr Calc Pharmacy 28.9 ml/min; Est GFR (African American) 32.4 ml/min; Est GFR (Non-African American) 27.9 ml/min; Potassium 3.6 mmol/L (3.5-5.1)
[2021-07-20] MEDS ORDERED: DIGOXIN 125 MCG in SYRINGE 9.5 ML IV ONE (20:45)
[2021-07-20] MEDS ORDERED: SODIUM CHLORIDE 0.9% 250 ML IV SCH (20:45)
[2021-07-20 21:00] LABS: Allen Test Pos (Pos); Base Excess ABG -2.4 mEq/L (-9-1.8); HCO3 ABG 20 mmol/L (19-24); Oxygen Saturation ABG 97.4 % (90-95); PCO2 ABG 27 mmHg (35-46); PO2 ABG 109 mmHg (80-95); pH ABG 7.49 (7.35-7.45)
[2021-07-20] MEDS: METOPROLOL TARTRATE 25 MG TAB PO SCH (22:27)
[2021-07-20] MEDS ORDERED: METOPROLOL TARTRATE 1 MG/ML VIAL IV PRN (22:28)
[2021-07-21] MEDS ORDERED: GABAPENTIN 600 MG TAB PO SCH (01:00)
[2021-07-21] MEDS: PANTOprazole 40 MG in DEXTROSE 5% 100 ML IV SCH ×2 (01:27→06:25)
[2021-07-21 06:33] LABS: Hematocrit (blood only) 23.5 % (42-52); Hemoglobin 7.7 g/dL (14.0-18.0); Mean Corpuscular Hemoglobin 40.3 pg (25-34); Mean Corpuscular Hgb Conc 32.8 g/dL (32-36); Nucleated RBC # (auto) 0.03 K/uL (0-0); Nucleated RBC % (auto) 0.7 %; RDW Coefficient of Variation 18.6 % (11.5-14.5); Red Blood Count 1.91 M/uL (4.7-6.1); White Blood Count 3.71 K/uL (4.8-10.8)
[2021-07-21 06:41] LABS: Mean Platelet Volume 11.2 fL (7.4-10.4); Platelet Count 42 K/uL (130-400)
[2021-07-21 07:10] LABS: Albumin Globulin Ratio 0.5 (0.9-2); Albumin Level 2.4 gm/dl (3.4-5.0); BUN Creatinine Ratio 11.5 (10-20); Bilirubin,Total 14.8 mg/dl (0.2-1); Calcium 7.8 mg/dl (8.5-10.1); Creatinine Clr Calc Pharmacy 23.8 ml/min; Est GFR (African American) 25.5 ml/min; Globulin 5.1 gm/dl (2.5-4.0); Magnesium 2.1 mg/dl (1.8-2.4); Phosphorus 3.9 mg/dl (2.5-4.9); Potassium 3.9 mmol/L (3.5-5.1); Total Protein 7.5 gm/dl (6.4-8.2)
[2021-07-21 07:15] LABS: INR 2.4 (0.9-1.1); Prothrombin Time 22.7 Seconds (9.0-12.0)
--- NOTE | 2021-07-21 08:14 | Hospitalist Progress Note ---
Date of Service July 21, 2021 Assessment & Plan Admission and Anticipated Discharge Date Admission Date: July 18, 2021 Subjective Talked to daughter on phone last night about family visitation to See as he is poor condition. Patient's ex came to see him. She is also on phone with another family ember. They are ok for comfort care if patient deteriorates. Requested to keep him comfortable. Results & Data Results & Data ([facility]) Vital Signs (Past 12 Hours) Vital Signs Temp Pulse Pulse Resp BP BP Pulse Ox 07/21/21 04:10 36.4 C L 127 H 18 92/64 L 96 07/21/21 00:02 36.4 C L 111 H 18 97/64 L 96 07/21/21 00:00 135 H 07/20/21 23:14 155 H 106/73 07/20/21 21:55 153 H 105/70 99 07/20/21 21:15 98 H 101/71 07/20/21 21:09 135 H
--- NOTE | 2021-07-21 08:15 | Hospitalist Progress Note ---
Date of Service July 21, 2021 Assessment & Plan (1) Abdominal pain: Plan: Alcoholic cirrhosis of liver with ascites End-stage liver disease Pt has been very noncompliant w/ medical treatment/ follow ups He does not plan to stop drinking alcohol he said that he does not take his medications or follow with his doctor appointments GI consulted He was on Xifaxan and lactulose and probably on Lasix and Aldactone as an outpatient Being very noncompliant he has not been taking any of those and are not in the med list - resumed rifaximin 550 mg twice daily, lactulose 30 g 4 times daily (however currently not taking PO, lethargic) Will plan to resume Lasix 40 mg daily and Aldactone 25 mg daily if BP stable and pt ok to take PO S/p paracentesis where 3 L ascites fluid removed on 07/18/21, unfortunately specimen was discarded w/o testing GI was planing to get EGD/Colonoscopy but due to atrial tejada and incomplete prep, scope was cancelled Continue IV abx , IV albumin for now 07/20 -patient continues to be lethargic, and his blood work is worsen - creatinine elevated at 2.1, INR up at 2.3, T bili up at 15 Contacted GI, MELD score 35, guarded prognosis, Can consider transfer to tertiary centre for hepatology/transplantation evaluation but unllikely a candidate due to medical noncompliance and ETOH abuse history. Nephrology also consulted, for elevated creatinine now at 2.1, possible epidural syndrome Given guarded prognosis, medical noncompliance, palliative medicine also consulted to address goals of care 07/21 - patient continues to be lethargic, creatinine now elevated at 3. I was able to reach patient's daughter Antonia yesterday, and she confirmed his CODE STATUS to be DNR/DNI Palliative medicine following, and after further discussion with family, patient made comfort care Alcohol abuse Continues to drink alcohol daily Multiple admissions for alcohol intoxication and withdrawal Continued Gabapentin and Ativan alcohol withdrawal protocol Will monitor closely for alcohol withdrawal and DT Not interested to rehab because he said that he has been there before Will consider to add libruim 10mg Esophageal varices: non compliant w/ Xifaxan S/P paracentesis with 3 L ascites fluid removed Continue IV Abx for possible SBP No lab was sent from the ascites fluid Buttock wound Pressure ulcer of sacral region, stage 3 POA Continue daily wound care Wound care nurse on board Will need follow-up with wound care clinic, but pt does not follow up with appt Atrial flutter Hx P afib noncompliant with 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 He was referred to ENT but has not been compliant with this." Does not follow up with appointment (Non compliant) History of pulmonary embolism: Not a candidate for anticoagulation secondary to history of medical noncompliance and ongoing alcohol abuse Thrombocytopenia: Anemia Coagulopathy: Due to underlying liver disease Hgb 8.9, plt 56, INR 2 no signs of bleeding and per nurse, did not note any further dark stool Continue monitor CBC DVT prophylaxis: SCDs due to thrombocytopenia/coagulopathy Code: DNR/DNI Disposition: prognosis is guarded, patient made comfort care Patient's daughter, Ms. Antonia Gao, contact #[phone]. Admission and Anticipated Discharge Date Admission Date: July 18, 2021 Subjective Pt was seen and examined for follow up of abdominal discomfort and alcohol abuse , end-stage liver disease Lying in bed with no acute distress. Pt is drowsy and weak , barely responding He was seen by GI, and was planned for EGD/colonoscopy however had a flutter and heart rate in the 140s, and therefore procedures were canceled There was initial concern for GI bleed, however seems like patient has been having brown stools and hemoglobin stable Had paracentesis done, however fluid was not sent to the lab Yesterday (07/20) - however his blood work much worsened, creatinine elevated at 2.1, INR up at 2.3, T bili up at 15 Contacted GI for further evaluation/recommendations Contacted nephrology, and also ordered extra IV albumin Given his guarded prognosis, and known noncompliance with medical treatment, placed also palliative medicine consultation to address goals of care I was able to contact patient's daughter Antonia last evening (07/20), and she confirmed CODE STATUS to be DNR/DNI. She also wanted to come visit her father and arrangements were made, for patient's ex- to come visit last evening. Palliative medicine following, and discussed to make patient comfort care after further discussion with the family. Review of Systems Review of Systems: Unobtainable due to cognitive status Physical Exam Physical Exam: General- lethargic jaundiced male, barely responding to questions Head- atraumatic Eyes- PERRL, EOMI, jaundice Neck- supple, no JVD Lungs- clear to auscultation Heart- + mild tachycardia 9improved), irregular Abdomen- soft, seems nontender Extremities- no calf tenderness, +edema Neuro - drowsy, barely answers any questions, no facial asymmetry, moves extremities Skin- warm & dry Results & Data Results & Data ([facility]) Vital Signs (Past 12 Hours) Vital Signs Temp Pulse Pulse Resp BP BP Pulse Ox 07/21/21 04:10 36.4 C L 127 H 18 92/64 L 96 07/21/21 00:02 36.4 C L 111 H 18 97/64 L 96 07/21/21 00:00 135 H 07/20/21 23:14 155 H 106/73 07/20/21 21:55 153 H 105/70 99 07/20/21 21:15 98 H 101/71 07/20/21 21:09 135 H Laboratory Results 07/21/21 07/21/21 07/21/21 Range/Units 05:48 05:48 05:48 WBC 3.71 L (4.8-10.8) K/uL RBC 1.91 L (4.7-6.1) M/uL Hgb 7.7 L (14.0-18.0) g/dL Hct 23.5 L (42-52) % MCV 123.0 H (80-100) fL MCH 40.3 H (25-34) pg MCHC 32.8 (32-36) g/dL RDW Std Deviation 80.0 H (36.4-46.3) fL RDW Coeff of Hernandez 18.6 H (11.5-14.5) % Plt Count 42 L (130-400) K/uL MPV 11.2 H (7.4-10.4) fL Absolute Nucleated RBC 0.03 H (0-0) K/uL Nucleated RBC % (auto) 0.7 % PT 22.7 H (9.0-12.0) Seconds INR 2.4 H (0.9-1.1) ABG pH (7.35-7.45) ABG pCO2 (35-46) mmHg ABG pO2 (80-95) mmHg ABG HCO3 (19-24) mmol/L ABG O2 Saturation (90-95) % ABG Base Excess (-9-1.8) mEq/L Soy Test (Pos) Barometric Pressure mm/Hg Oxygen Given Sodium 132 L Potassium 3.9 Chloride 99 Carbon Dioxide 21 Anion Gap 12.0 H BUN 35 H Creatinine 3.02 H D Est Cr Clr Drug Dosing 23.8 Est GFR ( Amer) 25.5 Est GFR (Non-Af Amer) 22.0 BUN/Creatinine Ratio 11.5 Glucose 87 Calcium 7.8 L Phosphorus 3.9 D (2.5-4.9) mg/dl Magnesium 2.1 (1.8-2.4) mg/dl Total Bilirubin 14.8 H (0.2-1) mg/dl AST 69 H (15-37) U/L ALT 33 (12-78) U/L Alkaline Phosphatase 53 (45-117) U/L Ammonia (11-32) umol/L Total Protein 7.5 (6.4-8.2) gm/dl Albumin 2.4 L (3.4-5.0) gm/dl Globulin 5.1 H (2.5-4.0) gm/dl Albumin/Globulin Ratio 0.5 L (0.9-2) 07/20/21 07/20/21 07/20/21 Range/Units 20:47 20:47 20:12 WBC (4.8-10.8) K/uL RBC (4.7-6.1) M/uL Hgb (14.0-18.0) g/dL Hct (42-52) % MCV (80-100) fL MCH (25-34) pg MCHC (32-36) g/dL RDW Std Deviation (36.4-46.3) fL RDW Coeff of Hernandez (11.5-14.5) % Plt Count (130-400) K/uL MPV (7.4-10.4) fL Absolute Nucleated RBC (0-0) K/uL Nucleated RBC % (auto) % PT (9.0-12.0) Seconds INR (0.9-1.1) ABG pH 7.49 H (7.35-7.45) ABG pCO2 27 L (35-46) mmHg ABG pO2 109 H (80-95) mmHg ABG HCO3 20 (19-24) mmol/L ABG O2 Saturation 97.4 H (90-95) % ABG Base Excess -2.4 (-9-1.8) mEq/L Soy Test Pos (Pos) Barometric Pressure 732.8 mm/Hg Oxygen Given 2 Sodium 132 L Potassium 3.6 Chloride 99 Carbon Dioxide 23 Anion Gap 10.0 BUN 30 H Creatinine 2.48 H D Est Cr Clr Drug Dosing 28.9 Est GFR ( Amer) 32.4 Est GFR (Non-Af Amer) 27.9 BUN/Creatinine Ratio 12.1 Glucose 86 Calcium 8.2 L Phosphorus (2.5-4.9) mg/dl Magnesium (1.8-2.4) mg/dl Total Bilirubin (0.2-1) mg/dl AST (15-37) U/L ALT (12-78) U/L Alkaline Phosphatase (45-117) U/L Ammonia 48.1 H (11-32) umol/L Total Protein (6.4-8.2) gm/dl Albumin (3.4-5.0) gm/dl Globulin (2.5-4.0) gm/dl Albumin/Globulin Ratio (0.9-2) 07/20/21 Range/Units 15:44 WBC (4.8-10.8) K/uL RBC (4.7-6.1) M/uL Hgb (14.0-18.0) g/dL Hct (42-52) % MCV (80-100) fL MCH (25-34) pg MCHC (32-36) g/dL RDW Std Deviation (36.4-46.3) fL RDW Coeff of Hernandez (11.5-14.5) % Plt Count (130-400) K/uL MPV (7.4-10.4) fL Absolute Nucleated RBC (0-0) K/uL Nucleated RBC % (auto) % PT (9.0-12.0) Seconds INR (0.9-1.1) ABG pH (7.35-7.45) ABG pCO2 (35-46) mmHg ABG pO2 (80-95) mmHg ABG HCO3 (19-24) mmol/L ABG O2 Saturation (90-95) % ABG Base Excess (-9-1.8) mEq/L Soy Test (Pos) Barometric Pressure mm/Hg Oxygen Given Sodium Cancelled Potassium Cancelled Chloride Cancelled Carbon Dioxide Cancelled Anion Gap Cancelled BUN Cancelled Creatinine Cancelled Est Cr Clr Drug Dosing Cancelled Est GFR ( Amer) Cancelled Est GFR (Non-Af Amer) Cancelled BUN/Creatinine Ratio Cancelled Glucose Cancelled Calcium Cancelled Phosphorus (2.5-4.9) mg/dl Magnesium (1.8-2.4) mg/dl Total Bilirubin (0.2-1) mg/dl AST (15-37) U/L ALT (12-78) U/L Alkaline Phosphatase (45-117) U/L Ammonia (11-32) umol/L Total Protein (6.4-8.2) gm/dl Albumin (3.4-5.0) gm/dl Globulin (2.5-4.0) gm/dl Albumin/Globulin Ratio (0.9-2) Medications Administered Current Inpatient Medications Acetaminophen (Acetaminophen 325 Mg Tab) 325 mg PO Q6H PRN PRN Reason: Mild Pain Stop: 08/17/21 03:39 Folic Acid (Folic Acid 1 Mg Tab) 1 mg PO QAM [facility] Stop: 08/17/21 08:59 Last Admin: 07/20/21 08:02 Dose: 1 mg Documented by: Gabapentin (Gabapentin 400 Mg Cap) 400 mg PO Q24H [facility] Stop: 07/22/21 01:01 Gabapentin (Gabapentin 100 Mg Cap) 200 mg PO Q24H [facility] Stop: 07/23/21 01:01 Piperacillin Sod/Tazobactam (Sod 3.375 gm/ Dextrose) 115 mls @ 28.75 mls/hr IV Q8H [facility]; Protocol Stop: 07/28/21 07:59 Last Infusion: 07/21/21 03:37 Dose: Infused Documented by: Promethazine HCl 12.5 mg/ (Sodium Chloride) 50.5 mls @ 202 mls/hr IV Q6H PRN PRN Reason: Nausea And Vomiting Stop: 08/17/21 03:39 Lorazepam (Ativan) 1 mg in 2 mls @ 2 mls/min IV UD PRN; Protocol PRN Reason: EtOH Withdrawl AWSS Score 6,7 Stop: 08/17/21 03:39 Last Admin: 07/20/21 03:33 Dose: 2 mls/min Documented by: Lorazepam (Ativan) 2 mg in 4 mls @ 4 mls/min IV UD PRN; Protocol PRN Reason: EtOH Withdrawl AWSS Score 8,9 Stop: 08/17/21 03:39 Last Admin: 07/19/21 23:43 Dose: 4 mls/min Documented by: Lorazepam (Ativan) 3 mg in 6 mls @ 4 mls/min IV ONCE PRN; Protocol PRN Reason: EtOH Withdrawl AWSS Score >=10 Stop: 08/17/21 03:39 Pantoprazole Sodium 40 mg/ (Dextrose) 100 mls @ 20 mls/hr IV Q5H [facility] Stop: 08/19/21 00:29 Last Admin: 07/21/21 06:25 Dose: 8 mg/hr, 20 mls/hr Documented by: Metoprolol Tartrate (Metoprolol Tartrate 25 Mg Tab) 12.5 mg PO BID [facility] Stop: 08/19/21 20:59 Last Admin: 07/20/21 22:27 Dose: Not Given Documented by: Metoprolol Tartrate (Metoprolol Tartrate 1 Mg/Ml Vial) 2.5 mg IV Q4H PRN PRN Reason: HR > 115 Stop: 08/19/21 22:27 Last Admin: 07/20/21 23:14 Dose: 2.5 mg Documented by: Miscellaneous Information (Piperacill/Tazobac Consult Active) 1 ea N/A UD PRN PRN Reason: Consult Stop: 08/17/21 01:52 Multivitamins (Multivitamin Tab) 1 tab PO QAM [facility] Stop: 08/17/21 08:59 Last Admin: 07/20/21 08:02 Dose: 1 tab Documented by: Oxycodone HCl (Oxycodone Hcl Ir 5 Mg Tab (Immediate Release)) 5 mg PO Q4H PRN PRN Reason: Pain Stop: 08/01/21 03:39 Rifaximin (Rifaximin 550 Mg Tablet) 550 mg PO BID [facility] Stop: 08/19/21 08:59 Last Admin: 07/20/21 22:27 Dose: Not Given Documented by: Thiamine HCl (Thiamine Hcl 100 Mg Tab) 100 mg PO QAM [facility] Stop: 08/18/21 08:59 Last Admin: 07/20/21 08:02 Dose: 100 mg Documented by:
[2021-07-21] MEDS: METOPROLOL TARTRATE 25 MG TAB PO SCH (08:25)
[2021-07-21] MEDS: rifAXIMin 550 MG TABLET PO SCH (08:25)
[2021-07-21] MEDS: FOLIC ACID 1 MG TAB PO SCH (08:25)
[2021-07-21] MEDS: THIAMINE HCL 100 MG TAB PO SCH (08:26)
[2021-07-21] MEDS: MULTIVITAMIN TAB PO SCH (08:26)
[2021-07-21] MEDS: PIPERACILLIN/TAZOBACTAM 3.375 GM in DEXTROSE 5% 100 ML IV SCH (08:27)
--- NOTE | 2021-07-21 09:57 | Gastroenterology Progress Note ---
Date of Service July 21, 2021 Assessment & Plan (1) Cirrhosis: Plan: 55 year old male with history of ETOH cirrhosis, ongoing ETOH use, diuretic refractory ascites, medical noncompliance, MELD 37 admitted w/ question of GI bleeding. Was to have EGD/Colonoscopy Sunday but cancelled due to aflutter and incomplete prep. He has had brown stools documented since. He has rising Tbili, INR and now rising [employer] at 2.1 this AM, prognosis guarded. He had told the ER that he had not been using ETOH recently, but last date of ETOH is unknown. Can consider transfer to tertiary centre for hepatology/transplantation evaluation but unlikely a candidate due to medical noncompliance and ETOH abuse history. Appreciate palliative care input Daily MELD labs Consider nephrology consult Rule out HRS Hold diuretics Continue Albumin Trend H&H Monitor and document for s/s of GI bleed Transfuse HGB < 7 IV PPI twice daily Watch for ETOH withdrawal Would repeat a diagnostic paracentesis to rule out SBP - Sent cell count and culture - Consider Zosyn - Consider Albumin Continue folic acid and thiamine Xifaxan 550 mg BID Once again ETOH cessation is recommended Low NA diet, less than 2G daily Less than 2G Tylenol containing products if using No NSAIDs Admission and Anticipated Discharge Date Admission Date: July 18, 2021 Supervising Physician Co-Signing Physician Notes Patient was seen and examined NIXON Patrick whose note reflects our findings and plan. ETOH decompensated cirrhosis with continued ETOH use. adm with abd pain. Ascites. Rectal bleeding. Drop in H/H noted initially. H/H stable now and stool brown.Worsening liver and renal parameters and increasing MELD. not likely a candidate for txp as continues to drink. Prognosis is poor. Follow labs closely and mental status. If decompensates further consider transfer to tertiary care center. Appreciate cardiology and renal input Subjective Pt was seen and evaluated, chart reviewed. More awake today. Able to identify his name. Not oriented to place/time but is answering questions in short sentences He denies abd pain No nausea, vomiting Tells me he is still drinking Tells me he is hungry Unable to describe his BMs. Tbili stable INR rising [employer] rising Diagnosis: alcoholic cirrhosis,ongoing ETOH abuse Decompensations: Varices: none Ascites:new s/p diagnostic paracentesis No SBP. SAAG 0.8, portal htn not necessary cause of ascites . Fluid NEGATIVE FOR MALIGNANCY, 2.4L 9/8 HE: none Screenings: MELD-Na score: 35 Calculated from: Serum Creatinine: 2 Serum Sodium: 130 Total Bilirubin: 15 INR(ratio): 2.3 Age: 54 years HCC: due in November Varices: 2021 Immunizations: Immune to HepA/HepB EGD 2019: Z-line regular, 38 cm from the incisors.Portal hypertensive gastropathy. Normal examined duodenum Colonoscopy 2019: Non-thrombosed external hemorrhoids found on digital rectal exam.The examined portion of the ileum was normal. Moderate diverticulosis in the sigmoid colon and in the descending colon. Internal hemorrhoids. Review of Systems Review of Systems: Unobtainable due to cognitive status (limited ROS except as above in HPI) Physical Exam Constitutional: WD/WN, vitals as above Neck: trachea midline, no thyromegaly Respiratory: normal respiratory effort, lungs clear to auscultation Cardiovascular: RRR, no murmur, no edema Rate/Rhythm: regular rate and regular rhythm Gastrointestinal (Abdomen): normal bowel sounds, soft, nontender, no hepatosplenomegaly Skin: no rashes, warm and dry Results & Data ([facility]) Vital Signs (Past 12 Hours) Vital Signs Temp Pulse Pulse Resp BP BP Pulse Ox 07/21/21 08:00 37.1 C 100 H 16 106/66 96 07/21/21 04:10 36.4 C L 127 H 18 92/64 L 96 07/21/21 00:02 36.4 C L 111 H 18 97/64 L 96 07/21/21 00:00 135 H 07/20/21 23:14 155 H 106/73 07/20/21 21:55 153 H 105/70 99 Laboratory Results 07/21/21 07/21/21 07/21/21 Range/Units 05:48 05:48 05:48 WBC 3.71 L (4.8-10.8) K/uL RBC 1.91 L (4.7-6.1) M/uL Hgb 7.7 L (14.0-18.0) g/dL Hct 23.5 L (42-52) % MCV 123.0 H (80-100) fL MCH 40.3 H (25-34) pg MCHC 32.8 (32-36) g/dL RDW Std Deviation 80.0 H (36.4-46.3) fL RDW Coeff of Hernandez 18.6 H (11.5-14.5) % Plt Count 42 L (130-400) K/uL MPV 11.2 H (7.4-10.4) fL Absolute Nucleated RBC 0.03 H (0-0) K/uL Nucleated RBC % (auto) 0.7 % PT 22.7 H (9.0-12.0) Seconds INR 2.4 H (0.9-1.1) ABG pH (7.35-7.45) ABG pCO2 (35-46) mmHg ABG pO2 (80-95) mmHg ABG HCO3 (19-24) mmol/L ABG O2 Saturation (90-95) % ABG Base Excess (-9-1.8) mEq/L Soy Test (Pos) Barometric Pressure mm/Hg Oxygen Given Sodium 132 L Potassium 3.9 Chloride 99 Carbon Dioxide 21 Anion Gap 12.0 H BUN 35 H Creatinine 3.02 H D Est Cr Clr Drug Dosing 23.8 Est GFR ( Amer) 25.5 Est GFR (Non-Af Amer) 22.0 BUN/Creatinine Ratio 11.5 Glucose 87 Calcium 7.8 L Phosphorus 3.9 D (2.5-4.9) mg/dl Magnesium 2.1 (1.8-2.4) mg/dl Total Bilirubin 14.8 H (0.2-1) mg/dl AST 69 H (15-37) U/L ALT 33 (12-78) U/L Alkaline Phosphatase 53 (45-117) U/L Ammonia (11-32) umol/L Total Protein 7.5 (6.4-8.2) gm/dl Albumin 2.4 L (3.4-5.0) gm/dl Globulin 5.1 H (2.5-4.0) gm/dl Albumin/Globulin Ratio 0.5 L (0.9-2) 07/20/21 07/20/21 07/20/21 Range/Units 20:47 20:47 20:12 WBC (4.8-10.8) K/uL RBC (4.7-6.1) M/uL Hgb (14.0-18.0) g/dL Hct (42-52) % MCV (80-100) fL MCH (25-34) pg MCHC (32-36) g/dL RDW Std Deviation (36.4-46.3) fL RDW Coeff of Hernandez (11.5-14.5) % Plt Count (130-400) K/uL MPV (7.4-10.4) fL Absolute Nucleated RBC (0-0) K/uL Nucleated RBC % (auto) % PT (9.0-12.0) Seconds INR (0.9-1.1) ABG pH 7.49 H (7.35-7.45) ABG pCO2 27 L (35-46) mmHg ABG pO2 109 H (80-95) mmHg ABG HCO3 20 (19-24) mmol/L ABG O2 Saturation 97.4 H (90-95) % ABG Base Excess -2.4 (-9-1.8) mEq/L Soy Test Pos (Pos) Barometric Pressure 732.8 mm/Hg Oxygen Given 2 Sodium 132 L Potassium 3.6 Chloride 99 Carbon Dioxide 23 Anion Gap 10.0 BUN 30 H Creatinine 2.48 H D Est Cr Clr Drug Dosing 28.9 Est GFR ( Amer) 32.4 Est GFR (Non-Af Amer) 27.9 BUN/Creatinine Ratio 12.1 Glucose 86 Calcium 8.2 L Phosphorus (2.5-4.9) mg/dl Magnesium (1.8-2.4) mg/dl Total Bilirubin (0.2-1) mg/dl AST (15-37) U/L ALT (12-78) U/L Alkaline Phosphatase (45-117) U/L Ammonia 48.1 H (11-32) umol/L Total Protein (6.4-8.2) gm/dl Albumin (3.4-5.0) gm/dl Globulin (2.5-4.0) gm/dl Albumin/Globulin Ratio (0.9-2) 07/20/21 Range/Units 15:44 WBC (4.8-10.8) K/uL RBC (4.7-6.1) M/uL Hgb (14.0-18.0) g/dL Hct (42-52) % MCV (80-100) fL MCH (25-34) pg MCHC (32-36) g/dL RDW Std Deviation (36.4-46.3) fL RDW Coeff of Hernandez (11.5-14.5) % Plt Count (130-400) K/uL MPV (7.4-10.4) fL Absolute Nucleated RBC (0-0) K/uL Nucleated RBC % (auto) % PT (9.0-12.0) Seconds INR (0.9-1.1) ABG pH (7.35-7.45) ABG pCO2 (35-46) mmHg ABG pO2 (80-95) mmHg ABG HCO3 (19-24) mmol/L ABG O2 Saturation (90-95) % ABG Base Excess (-9-1.8) mEq/L Soy Test (Pos) Barometric Pressure mm/Hg Oxygen Given Sodium Cancelled Potassium Cancelled Chloride Cancelled Carbon Dioxide Cancelled Anion Gap Cancelled BUN Cancelled Creatinine Cancelled Est Cr Clr Drug Dosing Cancelled Est GFR ( Amer) Cancelled Est GFR (Non-Af Amer) Cancelled BUN/Creatinine Ratio Cancelled Glucose Cancelled Calcium Cancelled Phosphorus (2.5-4.9) mg/dl Magnesium (1.8-2.4) mg/dl Total Bilirubin (0.2-1) mg/dl AST (15-37) U/L ALT (12-78) U/L Alkaline Phosphatase (45-117) U/L Ammonia (11-32) umol/L Total Protein (6.4-8.2) gm/dl Albumin (3.4-5.0) gm/dl Globulin (2.5-4.0) gm/dl Albumin/Globulin Ratio (0.9-2) (1) Cirrhosis Ascites presence: with ascites Hepatic cirrhosis type: alcoholic cirrhosis Qualified Code(s): K70.31 - Alcoholic cirrhosis of liver with ascites
--- NOTE | 2021-07-21 10:52 | Cardiology Progress Note ---
Date of Service July 21, 2021 Assessment & Plan (1) Atrial flutter with rapid ventricular response: (2) BRANDON (acute kidney injury): (3) Cirrhosis of liver with ascites: Plan: Critically ill 55-year-old male with hepatorenal failure and atrial flutter with rapid response. Atrial arrhythmias are slowing with low-dose beta-johnny would continue. Consider gentle hydration given relative hypotension and rising creatinine but overall prognosis limited Admission and Anticipated Discharge Date Admission Date: July 18, 2021 Subjective Patient seen and examined, chart, medications, telemetry reviewed. Patient arouses but not oriented to aid in management Patient did not receive beta-johnny last evening but did receive this morning with slowing of heart rate Review of Systems Review of Systems: Unobtainable due to cognitive status Physical Exam Constitutional: + ill appearing, + thin and + disheveled ENMT: external ear and nose normal, oropharynx normal Neck: trachea midline, no thyromegaly Respiratory: Auscultation: + diminished lung sounds Cardiovascular: Rate/Rhythm: + tachycardic and + irregularly irregular Heart Sounds: normal S1 and normal S2 Vessels: no JVD Gastrointestinal (Abdomen): normal bowel sounds, soft, nontender, no hepatosplenomegaly Results & Data ([facility]) Vital Signs (Past 12 Hours) Vital Signs Temp Pulse Pulse Resp BP BP Pulse Ox 07/21/21 08:00 37.1 C 100 H 16 106/66 96 07/21/21 04:10 36.4 C L 127 H 18 92/64 L 96 07/21/21 00:02 36.4 C L 111 H 18 97/64 L 96 07/21/21 00:00 135 H 07/20/21 23:14 155 H 106/73 Laboratory Results Laboratory Results - last 24 hr 07/20/21 07/20/21 07/20/21 15:44 20:12 20:47 WBC RBC Hgb Hct MCV MCH MCHC RDW Std Deviation RDW Coeff of Hernandez Plt Count MPV Absolute Nucleated RBC Nucleated RBC % (auto) PT INR ABG pH ABG pCO2 ABG pO2 ABG HCO3 ABG O2 Saturation ABG Base Excess Soy Test Barometric Pressure Oxygen Given Sodium Cancelled 132 L Potassium Cancelled 3.6 Chloride Cancelled 99 Carbon Dioxide Cancelled 23 Anion Gap Cancelled 10.0 BUN Cancelled 30 H Creatinine Cancelled 2.48 H D Est Cr Clr Drug Dosing Cancelled 28.9 Est GFR ( Amer) Cancelled 32.4 Est GFR (Non-Af Amer) Cancelled 27.9 BUN/Creatinine Ratio Cancelled 12.1 Glucose Cancelled 86 Calcium Cancelled 8.2 L Phosphorus Magnesium Total Bilirubin AST ALT Alkaline Phosphatase Ammonia 48.1 H Total Protein Albumin Globulin Albumin/Globulin Ratio 07/20/21 07/21/21 07/21/21 20:47 05:48 05:48 WBC 3.71 L RBC 1.91 L Hgb 7.7 L Hct 23.5 L MCV 123.0 H MCH 40.3 H MCHC 32.8 RDW Std Deviation 80.0 H RDW Coeff of Hernandez 18.6 H Plt Count 42 L MPV 11.2 H Absolute Nucleated RBC 0.03 H Nucleated RBC % (auto) 0.7 PT 22.7 H INR 2.4 H ABG pH 7.49 H ABG pCO2 27 L ABG pO2 109 H ABG HCO3 20 ABG O2 Saturation 97.4 H ABG Base Excess -2.4 Soy Test Pos Barometric Pressure 732.8 Oxygen Given 2 Sodium Potassium Chloride Carbon Dioxide Anion Gap BUN Creatinine Est Cr Clr Drug Dosing Est GFR ( Amer) Est GFR (Non-Af Amer) BUN/Creatinine Ratio Glucose Calcium Phosphorus Magnesium Total Bilirubin AST ALT Alkaline Phosphatase Ammonia Total Protein Albumin Globulin Albumin/Globulin Ratio 07/21/21 05:48 WBC RBC Hgb Hct MCV MCH MCHC RDW Std Deviation RDW Coeff of Hernandez Plt Count MPV Absolute Nucleated RBC Nucleated RBC % (auto) PT INR ABG pH ABG pCO2 ABG pO2 ABG HCO3 ABG O2 Saturation ABG Base Excess Soy Test Barometric Pressure Oxygen Given Sodium 132 L Potassium 3.9 Chloride 99 Carbon Dioxide 21 Anion Gap 12.0 H BUN 35 H Creatinine 3.02 H D Est Cr Clr Drug Dosing 23.8 Est GFR ( Amer) 25.5 Est GFR (Non-Af Amer) 22.0 BUN/Creatinine Ratio 11.5 Glucose 87 Calcium 7.8 L Phosphorus 3.9 D Magnesium 2.1 Total Bilirubin 14.8 H AST 69 H ALT 33 Alkaline Phosphatase 53 Ammonia Total Protein 7.5 Albumin 2.4 L Globulin 5.1 H Albumin/Globulin Ratio 0.5 L
[2021-07-21] MEDS ORDERED: GLYCOPYRROLATE 0.2 MG/ML VIAL IV PRN (11:00)
[2021-07-21] MEDS ORDERED: LORazepam 0.5 MG TAB PO PRN (11:00)
[2021-07-21] MEDS ORDERED: LORazepam 0.5 MG/1 ML VIAL IV PRN (11:00)
[2021-07-21] MEDS ORDERED: ONDANSETRON INJ 2 MG/ML 2 ML VIAL IV PRN (11:00)
[2021-07-21] MEDS ORDERED: ONDANSETRON 4 MG OD TAB SL PRN (11:00)
[2021-07-21] MEDS ORDERED: HYDROmorphone INJ 0.5 MG/0.5 ML SYR IV PRN (11:00)
--- NOTE | 2021-07-21 12:33 | Palliative Care Progress Note ---
Date of Service July 21, 2021 Assessment & Plan (1) Palliative care encounter: Plan: I spoke with Mr. Martin's daughter, Antonia, on the phone. She and her mother are co POAs. We reviewed his current status and multiorgan failure. She is confident that he would not want extraordinary measures to prolong his life. We discussed continuing current level of care versus shift of focus to comfort directed care and she would want comfort care for her father. She also tells me that her grandmother, Markos' mother recently. He has been living with his parents. She and her grandfather would like to visit. desk attendant notified. Orders changed to reflect family wishes. Dr. Johnson aware. (2) Cirrhosis: (3) BRANDON (acute kidney injury): Admission and Anticipated Discharge Date Admission Date: July 18, 2021 Subjective Lethargic, arouses briefly with much stimulation shakes head no when asked if having pain, nods when asked if comfortable. Review of Systems Review of Systems: Unobtainable due to reduced consciousness [employer] ryanne Assessment Scale Pain 0/3 Dyspnea by observation 0/3 Drowsiness 2/3 Palliative Performance Score 20% Physical Exam Constitutional: + lethargic; no acute distress Respiratory: normal respiratory effort; no labored breathing Cardiovascular: Rate/Rhythm: + irregularly irregular Results & Data ([facility]) Vital Signs (Past 12 Hours) Vital Signs Temp Pulse Resp BP Pulse Ox 07/21/21 11:54 98.2 F 94 H 18 129/63 98 07/21/21 08:00 98.8 F 100 H 16 106/66 96 07/21/21 04:10 97.5 F L 127 H 18 92/64 L 96 PG Care Time/CCT Total # of Minutes Spent Total Time Spent: 35 Total Time Spent with Patient: Total time spent is greater than 50% in coordination of care (as documented) at patient's floor/unit and/or counseling patient:goals of care, symptom management, family education and support Coding Level of Care Code 24586 Subseq Hosp Care Lvl 3 Diagnoses Palliative care encounter Z51.5 Cirrhosis K70.31 Ascites presence: with ascites Hepatic cirrhosis type: alcoholic cirrhosis BRANDON (acute kidney injury) N17.9 (1) Cirrhosis Ascites presence: with ascites Hepatic cirrhosis type: alcoholic cirrhosis Qualified Code(s): K70.31 - Alcoholic cirrhosis of liver with ascites
--- NOTE | 2021-07-21 16:49 | Hospitalist Progress Note ---
Date of Service July 21, 2021 Assessment & Plan Admission and Anticipated Discharge Date Admission Date: July 18, 2021 Subjective ------ NOTE----- Notified by nursing staff, patient ceased to breathe, at 16:02. On my exam, patient unresponsive to voice or pain stimuli. No breath sounds, no heart sounds, no radial or carotid pulse. Pupils nonreactive to light. Harini Johnson MD Results & Data Results & Data ([facility]) Vital Signs (Past 12 Hours) Vital Signs Temp Pulse Resp BP Pulse Ox 07/21/21 11:54 36.8 C 94 H 18 129/63 98 07/21/21 08:00 37.1 C 100 H 16 106/66 96
--- NOTE | 2021-07-21 16:53 | Discharge Summary ---
Date of Service July 21, 2021 Admission HPI Per Admitting Provider History obtained from the patient and records. Medical history significant for alcoholic cirrhosis, COPD, ongoing tobacco/alcohol abuse, PAF/hx PE not on anticoagulation 2 to GI bleed, mood disorder, chronic thrombo cytopenia, chronic anemia (baseline hemoglobin of 10-12), hypothyroidism, thyroid nodules as per records, medication noncompliance. Last confinement April 2021 for noncardiac chest pain and syncope. Patient went back to drinking alcohol shortly after discharge from the hospital. Patient not seen PCP since discharge from the hospital. Few days history of worsening abdominal distention and lower leg swelling. Achy abdominal pain going to the chest. Diarrhea mixed with blood as per patient. Fever chills at home as per patient. Patient consulted ER for evaluation. Medical History as above Surgical History : Cholecystectomy Family History : Leukemia, thyroid cancer, heart disease Personal/Social history : Ongoing tobacco/alcohol abuse, disabled Admission Exam Per Admitting Provider GENERAL: Intoxicated, chronically ill, no respiratory distress SKIN: Pallor,, warm HEENT: Alopecia, pale palpebral conjunctivae, no ptosis, dry buccal mucosa NECK : Supple, no tenderness CHEST : Decreased breath sounds, occasional expiratory wheezes, no tenderness HEART : Tachycardic, no obvious murmurs ABDOMEN: distention, fluid wave, central abdominal tenderness EXTREMITIES : Minimal LE swelling, no LE tenderness, no other conspicuous deformities noted NEUROLOGIC : Intoxicated, no facial asymmetry, tremulous, no other gross focality Principal Diagnosis End stage liver disease Alcoholic cirrhosis of liver with ascites Acute renal failure Alcohol abuse Atrial flutter Thrombocytopenia, Anemia, Coagulopathy, Due to underlying liver disease Discharge Exam On my exam, patient unresponsive to voice or pain stimuli. No breath sounds, no heart sounds, no radial or carotid pulse. Pupils nonreactive to light. Discharge Data Allergies Allergy/AdvReac Type Severity Reaction Status Date / Time fentanyl Allergy Intermediate RASH ALL Verified 07/18/21 08:49 OVER BODY Consultations 07/17/21 23:27 ED Decision to Admit Stat 07/18/21 03:40 Consult Gastroenterology Routine 07/19/21 19:05 Consult Cardiology Routine 07/20/21 08:30 Consult Nephrology Routine 07/20/21 10:17 Consult Palliative Care Routine 07/21/21 11:00 Consult Palliative Care Routine Procedures Performed Operation Date: 07/19/21 16:00 <No data on this case meets the specified criteria> Ordered Studies 07/17/21 18:08 CT abd pelvis IV con only Urgent 07/18/21 08:00 US paracentesis abd w/image Routine Hospital Course (1) Abdominal pain: Alcoholic cirrhosis of liver with ascites End-stage liver disease Per previous provider: Pt has been very noncompliant w/ medical treatment/ follow ups He does not plan to stop drinking alcohol he said that he does not take his medications or follow with his doctor appointments GI consulted He was on Xifaxan and lactulose and probably on Lasix and Aldactone as an outpatient Being very noncompliant he has not been taking any of those and are not in the med list - resumed rifaximin 550 mg twice daily, lactulose 30 g 4 times daily (however currently not taking PO, lethargic) Will plan to resume Lasix 40 mg daily and Aldactone 25 mg daily if BP stable and pt ok to take PO S/p paracentesis where 3 L ascites fluid removed on 07/18/21, unfortunately specimen was discarded w/o testing GI was planing to get EGD/Colonoscopy but due to atrial tejada and incomplete prep, scope was cancelled Continued IV abx , IV albumin for now 07/20 -patient continues to be lethargic, and his blood work has worsen - creatinine elevated at 2.1, INR up at 2.3, T bili up at 15 Contacted GI, MELD score 35, guarded prognosis, Can consider transfer to tertiary centre for hepatology/transplantation evaluation but unlikely a candidate due to medical noncompliance and ETOH abuse history. Nephrology also consulted, for elevated creatinine now at 2.1, possible epidural syndrome Given guarded prognosis, medical noncompliance, palliative medicine also consulted to address goals of care 07/21 - patient continues to be lethargic, creatinine now elevated at 3. I was able to reach patient's daughter Antonia yesterday, and she confirmed his CODE STATUS to be DNR/DNI Palliative medicine following, and after further discussion with family, patient made comfort care Pt later in the afternoon on 07/21. Family present at the bedside. Alcohol abuse Continues to drink alcohol daily Multiple admissions for alcohol intoxication and withdrawal Continued Gabapentin and Ativan alcohol withdrawal protocol Monitor closely for alcohol withdrawal and DT Not interested to rehab because he said that he has been there before Esophageal varices: non compliant w/ Xifaxan S/P paracentesis with 3 L ascites fluid removed Continued IV Abx for possible SBP until pt made comfort care Buttock wound Pressure ulcer of sacral region, stage 3 POA Continued daily wound care Wound care nurse consulted Atrial flutter Hx P afib noncompliant with atenolol shelter monitor showed atrial flutter with heart rate in the 140's not a candidate for anticoagulation secondary to medical noncompliance and liver disease with INR 2 Cardiology consulted BP borderline, consider to start on a low dose metoprolol Continued to monitor closely in PCU until pt made comfort care Multiple thyroid nodules: Per last discharge summary few months ago: "Recently found to have marked bilateral lobe thyroid enlargement by CT scan during an ER visit with several nodular densities of the supracalvicular and retroclavicular region concerning for neoplastic process. He was referred to ENT but has not been compliant with this." Does not follow up with appointment (Non compliant) History of pulmonary embolism: Not a candidate for anticoagulation secondary to history of medical noncompliance and ongoing alcohol abuse Thrombocytopenia: Anemia Coagulopathy: Due to underlying liver disease Hgb 8.9, plt 56, INR 2 no signs of bleeding and per nurse, did not note any further dark stool Continued to monitor CBC until pt made comfort care DVT prophylaxis: SCDs due to thrombocytopenia/coagulopathy Code: DNR/DNI Disposition: prognosis is guarded, patient made comfort care Patient's daughter, Ms. Antonia Gao, contact #[phone]. Pt on 2020, pt's family present at the bedside. Total Time Total Time Spent Total Time Spent (In Minutes): 35 Discharge Plan Discharge Items Patient Disposition: Discharge Diagnosis: End stage liver disease Other Date/Time: 07/21/21 16:02
[2021-07-22] MEDS ORDERED: GABAPENTIN 400 MG CAP PO SCH (01:00)
[2021-07-23] MEDS ORDERED: GABAPENTIN 100 MG CAP PO SCH (01:00)
== END 2021-07-21 18:50 | disposition expired | DRG 432 ==
LOC: ED 17:16 → MERGE 07-18 01:11 → SUATTDRO 07-18 01:11 → EDINP 07-18 01:11 → 2S 07-18 07:33 → 3E 07-21 11:46